=== PATIENT | male | born 1950 | race Caucasian/White ===

== ENCOUNTER 2017-06-16 12:59 | Outpatient (RCR) | payer MEDICARE, OTHER, SELFPAY ==
--- NOTE | 2017-10-01 13:06 | HP.OTEVAL_ITS ---
Patient's Visit Information GREGORIA RAMIREZ is a 67 year old M, referred to Occupational Therapy by Neisha Whitmore MD, with a diagnosis of unable to extend left 4th and 5th digit. Date of Evaluation: 06/16/17 Occupational Therapist: Benita Chatterjee, RAYR/L, CHT - Subjective Subjective: PT states he has had difficilty with left hand ROM pt states he is not able to extend his left RF or LF at MCP- pt states he noticed this inability to ext RF and LF since the end of Mar. Pt attempted to yeimy tape RF to LF and noted even more inability to lift LF. - Pain left hand 0 Pain Intensity Range: 0, 5 - Objective Objective/Observation: with wrist in N and assist in keeping MCP in N- pt asked to open and close his hand at PIPs- noted mass moves at the base of his MF with this motion- pt given chance to to work entire hand open/close and same mass moves with tendon- - ROM Shoulder: Right WFL left 90 Elbow: RIght WNL left WNL ROM Comments: left RF MCP -45 right 0/60. left LF MCP -55 left 0/ 55 - Strength Wrist: right 50/30 left 34/20 Apprentice/Lineman: right 25 left 40# Lateral Pinch: right 6# left 6# Tripod Pinch: Right 4# left 2# - DASH-Disabilities of Arm, Shoulder& Hand DASH Sum: 80 - Rehabilitation General Assessment: Tophaceous gout. Injury of extensor tendon of left hand. with wrist in N and assist in keeping MCP in N- pt asked to open and close his hand at PIPs- noted mass moves at the base of his MF with this motion- pt given chance to to work entire hand open/close and same mass moves with tendon-with palpation this thick tissue may indicate a gaglion cycst or tendon - would rec' d orthopedic to evaluate at this time. Rehabilitation Potential: Questionable - Anticipated Interventions Other Interventions: pt refered to ortho for further evaluation - Visit Plan General Plan: pt to see orthopedic of pts choice for further evaluation and rull out extensor tenson rupture or gaglion cycst TEXT: Thank you for the opportunity to evaluate your patient. For Medicare and Medicare HMO plans, please review the plan of care and approve it. It will need to be FAXED BACK to us at [phone] for Medicare purposes. Please let me know if there are questions or concerns regarding this plan of care. Physician Signature: Date:
--- NOTE | 2017-10-01 13:06 | HP.OT.NRP ---
HP - Discharge Summary - Patient Information GREGORIA RAMIREZ was seen in my office for initial evaluation on 06/16/17. The following Plan of Care was established for this patient: - Anticipated Interventions Other Interventions: pt refered to ortho for further evaluation This patient was last seen in our office . Pertinent comments regarding their Occupational therapy will appear below: At this point I will be discontinuing this patient from occupational therapy. I would be happy to see this patient again in the future if found appropriate by the physician. Thank you! Benita Chatterjee, OTR/L, CHT
== END 2017-06-16 19:00 | disposition home or self-care (01) ==
LOC: OT 12:59
PROVIDERS: Family Provider Family Medicine; PCP Family Medicine; Visit Provider Internal Medicine Rheumatology
DX: M1A.9XX1 Chronic gout, unspecified, with tophus (tophi) (principal); S66.902D Unspecified injury of unspecified muscle, fascia and tendon at wrist and hand level, left hand, subsequent encounter
CPT/HCPCS: 97166

== ENCOUNTER → 2017-08-13 09:49 | Outpatient (CLI) | payer MEDICARE, OTHER, SELFPAY ==
[2017-08-13 11:46] LABS: Albumin, Serum 3.3 g/dL (3.2-5.0); BUN 29 mg/dL (7-18); BUN/Creat Ratio 23.6 RATIO (10-20); Calcium,Total 9.3 mg/dL (8.5-10.1); Chloride 106 mmol/L (98-107); Creatinine, Serum 1.23 mg/dL (0.70-1.30); EST Glomerular Filtration Rate 62 mL/min (>60); Est Glom Filt Rate - Afr Amer 75 mL/min (>60); Glucose 77 mg/dL (74-106); Phosphorus 3.3 mg/dL (2.5-4.9); Potassium 4.4 mmol/L (3.5-5.1); Sodium Level 140 mmol/L (136-145)
== END ==
PROVIDERS: Family Provider Family Medicine; PCP Family Medicine; Visit Provider Internal Medicine Nephrology
DX: N18.3 Chronic kidney disease, stage 3 (moderate) (principal)
CPT/HCPCS: 36415; 80069

== ENCOUNTER 2017-11-04 08:30 | Outpatient (RCR) | payer MEDICARE, OTHER, SELFPAY ==
--- NOTE | 2017-09-15 18:36 | HP.OTEVAL ---
Patient's Visit Information GREGORIA RAMIREZ is a 67 year old M, referred to Occupational Therapy by SHARYN MIMS, with a diagnosis of DRUJ arthrosis, left, extensor tendon rupture of left hand-. Date of Evaluation: 09/15/17 Occupational Therapist: Benita Chatterjee, BRITTANY/Ritika, CHT - Subjective Subjective: pt arrives to OT [facility] with dx. of DRUJ Extensor tendon rupture of left hand. pt states he had issues with the inability to straighten his fingers- He arrives today following sx. Darrach Procedure- left distal ulna resection. Tendon transfer of EIP to the EDQ on the left through separate incisions. Tendon transfer of the EDC to the middle finger to the ring finger. Stabilization of the distal ulna stump with a ECU sling transfer on September 04, 2017. . pt arrives with soft wrist cock up brace- orders from call for custom orthosis placing wrist in slight extension with MCPs and PIP in resting flexion. pt denies pain or change in sensation - Objective Objective/Observation: pt demo with healing incisions x 3 on left hand. some brusing on ulnar side of left wrist. steri strips still present. - ROM ROM Comments: not formally tested at this time-. able to place wrist in slight extsion with MCP and PIP in resting flexion. - Strength Strength Comments: Not tested at this time - Sensation Sensation Comments: denies - Goals Goal:100% adherence to protocol: Yes Goal:Daily scar massage when approriate: Yes Goal:ROM equal to unaffected hand: Yes Goal:Make Ready Worker/Pinch strength at least 75% of unaffected hand: Yes Comment: As able as this was tend transfer due to rupture Goal:No pain with affected hand use: Yes Goal:Full use of affected hand in daily activities including: Yes Goal:Decrease scar hypersensitivity: Yes - Rehabilitation General Assessment: S/P Darrach Procedure- left distal ulna resection. Tendon transfer of EIP to the EDQ on the left through separate incisions. Tendon transfer of the EDC to the middle finger to the ring finger. Stabilization of the distal ulna stump with a ECU sling transfer on September 04, 2017. Dr. sherwood calls for custom orthosis placing left wrist in slight extension with MCP's and PIP in resting flexion. Rigoberto. of orthosis was performed and pt and family friend with pt was instructed in orthosis use and care- as well as ed. on edema, scar mtg and ext. tendon protocol. Pt would benefit from skilled OTR/L, CHT services 1-2x week for 8 weeks to facilitate extensor tendon protocol and rehab for pt to return to PLOF. Rehabilitation Potential: Good - Anticipated Interventions Anticipated Interventions: A/AAROM/PROM, Scar Care, Triggerpoint Release, Desensitization, Wound Care, Modalities, Orthoses, Joint Protection/Energy Conservation, Ergonomic Education, Fine Motor Coord/Rob, Education re assistive Equipment, Caregiver Training, Home Program - Visit Plan Frequency: 1-2x /Week Duration: 2 Months General Plan: Tendon glide ex, orthosis use- scar mtg- ext. tendon transfer protocol TEXT: Thank you for the opportunity to evaluate your patient. For Medicare and Medicare HMO plans, please review the plan of care and approve it. It will need to be FAXED BACK to us at [phone] for Medicare purposes. Please let me know if there are questions or concerns regarding this plan of care. Physician Signature: Date:
--- NOTE | 2017-11-04 08:56 | HP.OTDCSUM ---
HP - OT D/C Summary It has been my pleasure to treat GREGORIA RAMIREZ under orders from SHARYN MIMS, for the diagnosis of DRUJ arthrosis, left, extensor tendon rupture of left hand- for a total of 10 visit(s). Please see the following information for a summary of their discharge status. - Objective Objective/Function: pt demo full left digit ext. left wrist 50/55. pt demo left forearm supination WFL. denies tingling or numbness- full functional fist and FMS. left beamer hand strength at 45#. - Goals Patient Goals: Regain Mobility, Improve Fine Motor Skills, Use Hand/Wrist/Arm Normally Again, Increase ROM, Be More Independent in ADLS Goal:100% adherence to protocol: Yes Goal:Daily scar massage when approriate: Yes Goal:ROM equal to unaffected hand: Yes Goal:Deburring Machine Operator/Pinch strength at least 75% of unaffected hand: Yes Goal:No pain with affected hand use: Yes Goal:Full use of affected hand in daily activities including: Yes Goal:Decrease scar hypersensitivity: Yes - Plan Plan: D/C - D/C Information Discharge Comments: pt has been seen for 10 visits in OT. PT has met his goals in OT and reports he is ind. with all BADLs and IADLS. pt ed. on use of joint protection hortencia. and ad. eq. as needed. pt is pleased with the use of his hand! pt. D/C. If there are questions or concerns regarding this patient's occupational therapy, please fell free to call me at [phone]. Thank you for the referral of this patient. Sincerely, Benita Chatterjee, OTR/L, CHT
== END 2017-11-04 19:00 | disposition home or self-care (01) ==
LOC: OT 08:30
PROVIDERS: Family Provider Family Medicine; PCP Family Medicine
DX: M19.032 Primary osteoarthritis, left wrist (principal); S66.812D Strain of other specified muscles, fascia and tendons at wrist and hand level, left hand, subsequent encounter
CPT/HCPCS: 97110; 97140; 97166; 97168; 97760; 97763; G8987; G8988; G8989

== ENCOUNTER → 2018-02-05 12:30 | Outpatient (CLI) | payer MEDICARE, OTHER, SELFPAY ==
[2018-02-05 13:36] LABS: ALB/GLOB Ratio 0.8 RATIO (0.9-2.4); AST(SGOT) 22 U/L (15-37); Alanine Aminotransfer ALT/SGPT 26 U/L (16-61); Albumin, Serum 3.2 g/dL (3.2-5.0); Alkaline Phosphatase 219 U/L (45-117); Anion Gap 5 (5-15); BUN 29 mg/dL (7-18); BUN/Creat Ratio 20.4 RATIO (10-20); Calcium,Total 9.1 mg/dL (8.5-10.1); Chloride 104 mmol/L (98-107); Creatinine, Serum 1.42 mg/dL (0.70-1.30); EST Glomerular Filtration Rate 53 mL/min (>60); Est Glom Filt Rate - Afr Amer 64 mL/min (>60); Globulin 4.1 g/dL (2.2-4.2); Glucose 93 mg/dL (74-106); Potassium 4.6 mmol/L (3.5-5.1); Protein, Total 7.3 g/dL (6.4-8.2); Sodium Level 137 mmol/L (136-145)
== END ==
PROVIDERS: Family Provider Family Medicine; PCP Family Medicine; Referring Provider Family Medicine; Visit Provider Family Medicine
DX: N17.9 Acute kidney failure, unspecified (principal); N18.3 Chronic kidney disease, stage 3 (moderate)
CPT/HCPCS: 80053

== ENCOUNTER → 2018-02-11 08:54 | Outpatient (CLI) | payer MEDICARE, OTHER, SELFPAY ==
[2018-02-11 09:49] LABS: Hematocrit 33.3 % (40-54); Hemoglobin 10.6 g/dl (13.0-16.5); Mean Corp Hgb Conc 31.8 g/gl (32-36); Mean Corpuscular Hgb 31.2 pg (27.0-32.0); Mean Corpuscular Volume 97.9 fL (80-94); Platelet Count 161 K/mm3 (150-450); RBC Distribution Width CV 13.2 % (11.6-14.6); White Blood Count 6.1 K/mm3 (4.4-11.0)
[2018-02-11 09:50] LABS: Scan Indicated on CBC? Y/N NO
[2018-02-11 09:55] LABS: Protein, Urine (Random) 173.4 mg/dL (<11.9); Protein:Creat Ratio 2701 mg/g CRE (0-200)
[2018-02-11 10:22] LABS: Albumin, Serum 3.3 g/dL (3.2-5.0); BUN 32 mg/dL (7-18); BUN/Creat Ratio 26.2 RATIO (10-20); Calcium,Total 9.2 mg/dL (8.5-10.1); Chloride 108 mmol/L (98-107); Creatinine, Serum 1.22 mg/dL (0.70-1.30); EST Glomerular Filtration Rate 63 mL/min (>60); Est Glom Filt Rate - Afr Amer 76 mL/min (>60); Ferritin 336 ng/mL (26-388); Glucose 92 mg/dL (74-106); Iron 62 ug/dL (65-175); Iron Binding Capacity,Total 268 ug/dL (250-450); Phosphorus 3.9 mg/dL (2.5-4.9); Potassium 4.5 mmol/L (3.5-5.1); Sodium Level 140 mmol/L (136-145)
== END ==
PROVIDERS: Family Provider Family Medicine; PCP Family Medicine; Referring Provider Internal Medicine Nephrology; Visit Provider Internal Medicine Nephrology
DX: E11.22 Type 2 diabetes mellitus with diabetic chronic kidney disease (principal); N18.3 Chronic kidney disease, stage 3 (moderate); D64.9 Anemia, unspecified
CPT/HCPCS: 36415; 80069; 82570; 82728; 83540; 83550; 84156; 85027

== ENCOUNTER → 2018-08-17 | Outpatient (CLI) | payer MEDICARE, OTHER, SELFPAY ==
[2018-08-17 16:25] LABS: Hematocrit 34.2 % (40-54); Hemoglobin 10.8 g/dl (13.0-16.5); Mean Corp Hgb Conc 31.6 g/gl (32-36); Mean Corpuscular Hgb 30.3 pg (27.0-32.0); Mean Corpuscular Volume 96.1 fL (80-94); Mean Platelet Vol. 11.3 fl (6.2-12.0); Platelet Count 160 K/mm3 (150-450); RBC Distribution Width CV 14.2 % (11.6-14.6); Red Blood Count 3.56 M/mm3 (4.6-6.2); White Blood Count 7.4 K/mm3 (4.4-11.0)
[2018-08-17 16:26] LABS: Scan Indicated on CBC? Y/N NO
[2018-08-17 16:27] LABS: Protein, Urine (Random) 231.3 mg/dL (<11.9); Protein:Creat Ratio 11985 mg/g CRE (0-200)
[2018-08-17 16:56] LABS: Albumin, Serum 3.1 g/dL (3.2-5.0); BUN 33 mg/dL (7-18); BUN/Creat Ratio 24.6 RATIO (10-20); Chloride 109 mmol/L (98-107); Creatinine, Serum 1.34 mg/dL (0.70-1.30); EST Glomerular Filtration Rate 56 mL/min (>60); Est Glom Filt Rate - Afr Amer 68 mL/min (>60); Ferritin 418 ng/mL (26-388); Glucose 94 mg/dL (74-106); Iron 131 ug/dL (65-175); Iron Binding Capacity,Total 287 ug/dL (250-450); Phosphorus 2.6 mg/dL (2.5-4.9); Potassium 4.8 mmol/L (3.5-5.1); Sodium Level 141 mmol/L (136-145)
== END | disposition home or self-care (01) ==
LOC: LAB.FUTURE 14:32
PROVIDERS: Family Provider Family Medicine; PCP Family Medicine; Referring Provider Internal Medicine Nephrology; Visit Provider Internal Medicine Nephrology
DX: E11.22 Type 2 diabetes mellitus with diabetic chronic kidney disease (principal); N18.3 Chronic kidney disease, stage 3 (moderate); D63.1 Anemia in chronic kidney disease
CPT/HCPCS: 36415; 80069; 82570; 82728; 83540; 83550; 84156; 85027

== ENCOUNTER 2018-10-07 09:45 | Outpatient (RCR) | payer MEDICARE, OTHER, SELFPAY ==
[2018-08-17 15:00] VITALS: BMI 49.8
[2018-09-30 08:39] VITALS: BP 156/84; PULSE 73; RESP 18; TEMP 36.8; BMI 45.9
--- NOTE | 2018-09-30 09:36 | PCM.WC.HP ---
(1) Ulcer of left lower extremity with fat layer exposed Status: Chronic Current Visit: Yes Code(s): L97.922 - Non-pressure chronic ulcer of unspecified part of left lower leg with fat layer exposed (2) Lymphedema of both lower extremities Status: Chronic Current Visit: Yes Code(s): I89.0 - Lymphedema, not elsewhere classified (3) Type 2 diabetes mellitus Status: Chronic Current Visit: Yes Code(s): E11.9 - Type 2 diabetes mellitus without complications History of Present Illness Chief Complaint: Worsening lower extremity swelling and chronic left lower extremity ulcer. History of Wound: Mr. Russell is a 68yo who was referred to the wound center by his podiatrit due to chronic non healing left lower extremity ulcer. Initially started out with worsenijg bilaterla lower extremity swelling with subsequent blistering and ulceration. He states that he has applied hydrogen peroxide intermittently without any improvement. He has also been managed for cellulitis twice. He currently has a circaid however, he has been unable to apply on his on. He currently lives alone and unable to care for his ukcers adequately. History of DM which he says is well controlled. He feels well otherwise and denies chills, fever or significant lower extremity pain. ( Hx of neuropathy ) Past Medical History Past Medical History: Chronic Problems (Last Reviewed 08/17/18 @ 15:02 by Benita Hong) Ulcer of left lower extremity with fat layer exposed (Chronic) Lymphedema of both lower extremities (Chronic) Cardiac murmur (Chronic) Stage 2 chronic kidney disease (Chronic) Essential hypertension (Chronic) Type 2 diabetes mellitus (Chronic) Iron deficiency anemia (Chronic) Hyperlipidemia (Chronic) Surgical History: no surgical history Allergies/Adverse Reactions: Allergies No Known Allergies Allergy (Verified 08/17/18 15:00) Home Medications: Ambulatory Orders Medication Instructions Recorded Ascorbic Acid [Vitamin C] 500 mg PO DAILY@0800 03/08/17 Carvedilol [Coreg ([address])] 6.25 mg PO BID 03/08/17 Enalapril Maleate 10 mg PO QHS 03/08/17 Furosemide [Lasix] 20 mg PO DAILY 03/08/17 Hydrocodone/Acetaminophen 1 - 2 ea PO Q4H PRN PRN 03/08/17 [Hydrocodone-Acetamin 5-325 mg] Magnesium 500 mg PO QHS 03/08/17 Multivitamin [Daily Multiple 1 ea PO DAILY 03/08/17 Vitamin] Simvastatin 40 mg PO QHS 03/08/17 traMADol [Ultram] 50 mg PO Q4H PRN PRN 03/08/17 Febuxostat [Uloric] 40 mg PO DAILY 05/06/17 potassium chloride ER 10 mEq 20 meq PO QDAY tab 08/28/17 tablet,extended release(part/cryst) - Family History Maternal Family History: Family History (Last Reviewed 08/17/18 @ 15:02 by Benita Hong) Mother Cancer Father Hypertension Cancer Paternal Family History: Family History (Last Reviewed 08/17/18 @ 15:02 by Benita Hong) Mother Cancer Father Hypertension - - Head trauma. Smoking Status: Never smoker Review of Systems Constitutional: Denies: Anorexia, Chills, Fever, Night Sweats Eyes: Denies: Blurred vision, Pain HEENT: Denies: Difficulty Swallowing Cardiovascular: Denies: Chest Pain Gastrointestinal: Denies: Abdominal Pain, Hematemesis, Vomiting Genitourinary: Denies: Hematuria Skin: Denies: Jaundice - Physical Exam Vital Signs Temp Pulse Resp BP 98.2 F 73 18 156/84 H 09/30/18 08:39 09/30/18 08:39 09/30/18 08:39 09/30/18 08:39 General: Alert, Oriented x3, Cooperative, No apparent distress HEENT: Atraumatic, Normocephalic Oral: Moist Mucosa Neck: Supple Lungs: Normal air movement Cardiovascular: Regular rate, Regular Rhythm, Normal S1, Normal S2 Abdomen: Non Tender, Obese Extremities: No cyanosis, Edema Skin: Ulcer/ Wound Wound Measurements and Assessment WC - Nurse 1 - General Ulcer Measurement Start: 09/30/18 08:18 Freq: Status: Active Protocol: Activity Type Activity Date Activity User E-Sign Co-Sign Detail Recorded Client Recorded Date Recorded By Document 09/30/18 08:39 DV [id number] 09/30/18 08:57 DV 09/30/18 08:39 Wound Center Nurse 1 [Ulcer Assessment] #1 Lateral LLE -Combined with other wound No -Current Size (cm) - Length 11.0 -Current Size (cm) - Width 6.0 -Current Size (cm) - Depth 0.1 -Total Square Cm 66.00 -Date of Last Picture (Recall this 09/30/18 field) -Photo Taken Yes -Epithelialization None Present -Tunneling No -Undermining/Tunneling No -Circular Undermining No -Classification - Thickness Full Thickness without Exposed Support Structure -Exudate Amt Large -Exudate Type Serous -Wound Margin Indistinct, Non -Visible -Granulation Amt None Present (0 %) -Granulation Quality N/A -Slough/Fibrin Yes -Necrosis Amt Large (67-100%) -Necrotic Tissue Type Adherent Slough -Structure Exposed None/Limited to Skin Breakdown -Texture (Jaylyn-wound Skin Appearance) Assessed Localized Edema -Moisture (Jaylyn-wound Skin Appearance Assessed ) Weeping -Color (Jaylyn-wound Skin Appearance) Assessed Erythema -Temperature (Jaylyn-wound Skin No Abnormality Appearance) (Pt Warm) -Tenderness on Palpation (Jaylyn-wound No Skin Appearance) -Ulcer Cleansing Rinsed/ Irrigated with Saline -Foul Odor after Cleansing No -Anesthetic Used 4% Lidocaine Solution [Edema Assessment] -Lower Limb Edema Present Yes -Right Calf (cm) 47 -Right Ankle (cm) 33 -Left Calf (cm) 52 -Left Ankle (cm) 33.3 WC - Nurse 2 - General Ulcer CM Notes Start: 09/30/18 08:18 Freq: Status: Active Protocol: Activity Type Activity Date Activity User E-Sign Co-Sign Detail Recorded Client Recorded Date Recorded By Document 09/30/18 09:14 MW [id number] 09/30/18 09:24 MW 09/30/18 09:14 Wound Center Nurse 2 [Procedure/Treatment] #1 Lateral LLE -Time 09:14 -Correct Patient Yes -Correct Side, Site, Position Yes -Correct Procedure Yes -Procedure Performed Yes -Type of Procedure Debridement -Clinical Debridement Subcutaneous -Post Debridement Size (cm) - Length 11.5 -Post Debridement Size (cm) - Width 10.0 -Post Debridement Size (cm) - Depth 0.1 -Total Square Cm 115.00 -Wound/Ulcer Outcome Not Healed -Ulcer Cleansing Rinsed/ Irrigated with Saline -Foul Odor after Cleansing No -Bioengineered Tissue No -Bleeding Controlled with Pressure -Offloading No -Treatment Response Procedure Tolerated Well [See Physician Procedure note for Specifics] Pain Scale: 0-10 Numeric [Pain] -Is Patient Pain Free? Yes Musculoskeletal: No Muscle Wasting Neurological: Cranial nerves II-XII grossly intact Psych/Mental Status: Normal Affect Debridement Note Post-Debridement Measurements/Treatment WC - Nurse 2 - General Ulcer CM Notes Start: 09/30/18 08:18 Freq: Status: Active Protocol: Activity Type Activity Date Activity User E-Sign Co-Sign Detail Recorded Client Recorded Date Recorded By Document 09/30/18 09:14 MW [id number] 09/30/18 09:24 MW 09/30/18 09:14 Wound Center Nurse 2 #1 Lateral LLE -Time 09:14 -Correct Patient Yes -Correct Side, Site, Position Yes -Correct Procedure Yes -Procedure Performed Yes -Type of Procedure Debridement -Clinical Debridement Subcutaneous -Post Debridement Size (cm) - Length 11.5 -Post Debridement Size (cm) - Width 10.0 -Post Debridement Size (cm) - Depth 0.1 -Total Square Cm 115.00 -Wound/Ulcer Outcome Not Healed -Ulcer Cleansing Rinsed/ Irrigated with Saline -Foul Odor after Cleansing No -Bioengineered Tissue No -Bleeding Controlled with Pressure -Offloading No -Treatment Response Procedure Tolerated Well Pain Scale: 0-10 Numeric Is Patient Pain Free? Yes Wound debrided: Left lower extremity Wound Grade/Stage: Stage II Type of Debridement: Excisional debridement Anesthesia Used: 4% Lidocaine Solution Depth: Down to and including healthy tissue, in the subcutaneous layer Percentage of wound debrided: 100 Instrument Used: 7mm curette Tissue Removed: slough and devitalized tissue Severity: Fat Layer Exposed Amount of bleeding with debridement: Mild Bleeding Controlled with: Pressure Patient tolerated procedure well Assessment/Plan Active Problems (Last Reviewed 08/17/18 @ 15:02 by Benita Hong) Ulcer of left lower extremity with fat layer exposed (Chronic) Lymphedema of both lower extremities (Chronic) Type 2 diabetes mellitus (Chronic) Assessment: Same as above. Plan: Bilateral lower extremity lyphmedema however, left lower extremity with more erythema and differential warmth. Concern for cellulitis. Debridement done as documented above, prpcedure was well tolerated. Aquacel extra daily with ABD over top. Circaid for edema managmenetr. Patient samuel requires home health due to inability to care for / manage hos wounds. Will also start on Augmentin for possible cellulitis. Referreal to the lymphedema clinic made for managemenet of chronic/ worsening lymphedema. He was strongly advised to elevate his lower extremities when seated and in bed. All his qustions were answered and he was advised to call with any further questions or concerns. Follow up in 1 week.
[2018-10-07 10:00] VITALS: BP 121/77; PULSE 77; RESP 18; TEMP 36.6; BMI 45.9
--- NOTE | 2018-10-07 10:51 | PCM.WC.PN ---
(1) Ulcer of left lower extremity with fat layer exposed Status: Chronic Current Visit: Yes Code(s): L97.922 - Non-pressure chronic ulcer of unspecified part of left lower leg with fat layer exposed (2) Lymphedema of both lower extremities Status: Chronic Current Visit: Yes Code(s): I89.0 - Lymphedema, not elsewhere classified (3) Type 2 diabetes mellitus Status: Chronic Current Visit: Yes Code(s): E11.9 - Type 2 diabetes mellitus without complications Type of Wound Chief Complaint: Worsening lower extremity swelling and chronic left lower extremity ulcer. History of Wound: Mr. Russell is a 68yo who was referred to the wound center by his podiatrit due to chronic non healing left lower extremity ulcer. Initially started out with worsenijg bilaterla lower extremity swelling with subsequent blistering and ulceration. He states that he has applied hydrogen peroxide intermittently without any improvement. He has also been managed for cellulitis twice. He currently has a circaid however, he has been unable to apply on his on. He currently lives alone and unable to care for his ukcers adequately. History of DM which he says is well controlled. He feels well otherwise and denies chills, fever or significant lower extremity pain. ( Hx of neuropathy ) Progress of Wound: Area of ulceration appears to hve worsened however. cellulitis appears to have improved. Patient also reports less drainage. Has had HHN coem in every week however, that is now set to change due to insurance. - Physical Exam Vital Signs Temp Pulse Resp BP 97.8 F 77 18 121/77 H 10/07/18 10:00 10/07/18 10:00 10/07/18 10:00 10/07/18 10:00 General: Alert, Oriented x3, Cooperative, No apparent distress HEENT: Atraumatic, Normocephalic Oral: Moist Mucosa Neck: Supple Lungs: Normal air movement Abdomen: Obese Extremities: No cyanosis, Edema Skin: Ulcer/ Wound Wound Measurements and Assessment WC - Nurse 1 - General Ulcer Measurement Start: 09/30/18 08:18 Freq: Status: Active Protocol: Activity Type Activity Date Activity User E-Sign Co-Sign Detail Recorded Client Recorded Date Recorded By Document 10/07/18 10:00 MW [id number] 10/07/18 10:08 MW 10/07/18 10:00 Wound Center Nurse 1 [Ulcer Assessment] #1 Lateral LLE -Combined with other wound No -Current Size (cm) - Length 12.0 -Current Size (cm) - Width 10.0 -Current Size (cm) - Depth 0.1 -Total Square Cm 120.00 -Photo Taken No -Epithelialization None Present -Tunneling No -Undermining/Tunneling No -Circular Undermining No -Exudate Amt Large -Exudate Type Serous -Wound Margin Flat & Intact -Granulation Amt Small (1-33%) -Granulation Quality Pale -Slough/Fibrin Yes -Necrosis Amt Large (67-100%) -Necrotic Tissue Type Adherent Slough -Structure Exposed N/A -Texture (Jaylyn-wound Skin Appearance) Assessed Localized Edema -Moisture (Jaylyn-wound Skin Appearance Assessed ) Weeping -Color (Jaylyn-wound Skin Appearance) Assessed Hemosiderin Staining -Temperature (Jaylyn-wound Skin No Abnormality Appearance) (Pt Warm) -Tenderness on Palpation (Jaylyn-wound No Skin Appearance) -Ulcer Cleansing Rinsed/ Irrigated with Saline -Foul Odor after Cleansing No -Anesthetic Used 4% Lidocaine Solution [Edema Assessment] -Lower Limb Edema Present Yes -Right Calf (cm) 47.4 -Right Ankle (cm) 33.8 -Left Calf (cm) 52.7 -Left Ankle (cm) 35.0 WC - Nurse 2 - General Ulcer CM Notes Start: 09/30/18 08:18 Freq: Status: Active Protocol: Activity Type Activity Date Activity User E-Sign Co-Sign Detail Recorded Client Recorded Date Recorded By Document 10/07/18 10:31 MW [id number] 10/07/18 10:37 MW 10/07/18 10:31 Wound Center Nurse 2 [Procedure/Treatment] #1 Lateral LLE -Time 10:34 -Correct Patient Yes -Correct Side, Site, Position Yes -Correct Procedure Yes -Procedure Performed Yes -Type of Procedure Debridement -Clinical Debridement Subcutaneous -Post Debridement Size (cm) - Length 14.0 -Post Debridement Size (cm) - Width 11.0 -Post Debridement Size (cm) - Depth 0.1 -Total Square Cm 154.00 -Wound/Ulcer Outcome Not Healed -Ulcer Cleansing Rinsed/ Irrigated with Saline -Foul Odor after Cleansing No -Bioengineered Tissue No -Bleeding Controlled with Pressure -Offloading No -Treatment Response Procedure Tolerated Well [See Physician Procedure note for Specifics] Pain Scale: 0-10 Numeric [Pain] -Is Patient Pain Free? Yes Musculoskeletal: No Muscle Wasting Neurological: Cranial nerves II-XII grossly intact Psych/Mental Status: Normal Affect Debridement Note Post-Debridement Measurements/Treatment WC - Nurse 2 - General Ulcer CM Notes Start: 09/30/18 08:18 Freq: Status: Active Protocol: Activity Type Activity Date Activity User E-Sign Co-Sign Detail Recorded Client Recorded Date Recorded By Document 09/30/18 09:14 MW [id number] 09/30/18 09:24 MW Document 10/07/18 10:31 MW [id number] 10/07/18 10:37 MW 09/30/18 10/07/18 09:14 10:31 Wound Center Nurse 2 #1 Lateral LLE -Time 09:14 10:34 -Correct Patient Yes Yes -Correct Side, Site, Position Yes Yes -Correct Procedure Yes Yes -Procedure Performed Yes Yes -Type of Procedure Debridement Debridement -Clinical Debridement Subcutaneous Subcutaneous -Post Debridement Size (cm) - Length 11.5 14.0 -Post Debridement Size (cm) - Width 10.0 11.0 -Post Debridement Size (cm) - Depth 0.1 0.1 -Total Square Cm 115.00 154.00 -Wound/Ulcer Outcome Not Healed Not Healed -Ulcer Cleansing Rinsed/ Rinsed/ Irrigated with Irrigated with Saline Saline -Foul Odor after Cleansing No No -Bioengineered Tissue No No -Bleeding Controlled with Pressure Pressure -Offloading No No -Treatment Response Procedure Procedure Tolerated Well Tolerated Well Pain Scale: 0-10 Numeric Is Patient Pain Free? Yes Yes Wound debrided: Left lower extremity Wound Grade/Stage: Stage II Type of Debridement: Excisional debridement Anesthesia Used: 4% Lidocaine Solution Depth: Down to and including healthy tissue, in the subcutaneous layer Percentage of wound debrided: 100 Instrument Used: 5mm curette Tissue Removed: Slough and devitalized tissue Severity: Fat Layer Exposed Amount of bleeding with debridement: Mild Bleeding Controlled with: Pressure Patient tolerated procedure well Assessment/Plan Active Problems (Last Reviewed 08/17/18 @ 15:02 by Benita Hong) Ulcer of left lower extremity with fat layer exposed (Chronic) Lymphedema of both lower extremities (Chronic) Type 2 diabetes mellitus (Chronic) Assessment: Same as above. Plan: Bilateral lower extremity lyphmedema however, left lower extremity erythema and differential warmth have significnatly improved however, ulceration appears to have worsened. Debridement done as documented above, procedure was well tolerated. Aquacel extra daily with ABD over top. 3M for edema managmenet. Change by [facility] every other day due to drainage. Patient definitely continues to require home health due to inability to care for / manage his wounds. Continue Augmentin for 5 more days. Referral to the lymphedema clinic made for managemenet of chronic/ worsening lymphedema. He was strongly advised to elevate his lower extremities when seated and in bed. All his qustions were answered and he was advised to call with any further questions or concerns. Follow up in 1 week.
--- NOTE | 2018-10-07 10:57 | PN.PCM_ITS ---
(1) Ulcer of left lower extremity with fat layer exposed Status: Chronic Current Visit: Yes Code(s): L97.922 - Non-pressure chronic ulcer of unspecified part of left lower leg with fat layer exposed (2) Lymphedema of both lower extremities Status: Chronic Current Visit: Yes Code(s): I89.0 - Lymphedema, not elsewhere classified (3) Type 2 diabetes mellitus Status: Chronic Current Visit: Yes Code(s): E11.9 - Type 2 diabetes mellitus without complications Type of Wound Chief Complaint: Worsening lower extremity swelling and chronic left lower extremity ulcer. History of Wound: Mr. Russell is a 68yo who was referred to the wound center by his podiatrit due to chronic non healing left lower extremity ulcer. Initially started out with worsenijg bilaterla lower extremity swelling with subsequent blistering and ulceration. He states that he has applied hydrogen peroxide intermittently without any improvement. He has also been managed for cellulitis twice. He currently has a circaid however, he has been unable to apply on his on. He currently lives alone and unable to care for his ukcers adequately. History of DM which he says is well controlled. He feels well otherwise and denies chills, fever or significant lower extremity pain. ( Hx of neuropathy ) Progress of Wound: Area of ulceration appears to hve worsened however. cellulitis appears to have improved. Patient also reports less drainage. Has had HHN coem in every week however, that is now set to change due to insurance. - Physical Exam Vital Signs Temp Pulse Resp BP 97.8 F 77 18 121/77 H 10/07/18 10:00 10/07/18 10:00 10/07/18 10:00 10/07/18 10:00 General: Alert, Oriented x3, Cooperative, No apparent distress HEENT: Atraumatic, Normocephalic Oral: Moist Mucosa Neck: Supple Lungs: Normal air movement Abdomen: Obese Extremities: No cyanosis, Edema Skin: Ulcer/ Wound Wound Measurements and Assessment WC - Nurse 1 - General Ulcer Measurement Start: 09/30/18 08:18 Freq: Status: Active Protocol: Activity Type Activity Date Activity User E-Sign Co-Sign Detail Recorded Client Recorded Date Recorded By Document 10/07/18 10:00 MW [id number] 10/07/18 10:08 MW 10/07/18 10:00 Wound Center Nurse 1 [Ulcer Assessment] #1 Lateral LLE -Combined with other wound No -Current Size (cm) - Length 12.0 -Current Size (cm) - Width 10.0 -Current Size (cm) - Depth 0.1 -Total Square Cm 120.00 -Photo Taken No -Epithelialization None Present -Tunneling No -Undermining/Tunneling No -Circular Undermining No -Exudate Amt Large -Exudate Type Serous -Wound Margin Flat & Intact -Granulation Amt Small (1-33%) -Granulation Quality Pale -Slough/Fibrin Yes -Necrosis Amt Large (67-100%) -Necrotic Tissue Type Adherent Slough -Structure Exposed N/A -Texture (Jaylyn-wound Skin Appearance) Assessed Localized Edema -Moisture (Jaylyn-wound Skin Appearance Assessed ) Weeping -Color (Jaylyn-wound Skin Appearance) Assessed Hemosiderin Staining -Temperature (Jaylyn-wound Skin No Abnormality Appearance) (Pt Warm) -Tenderness on Palpation (Jaylyn-wound No Skin Appearance) -Ulcer Cleansing Rinsed/ Irrigated with Saline -Foul Odor after Cleansing No -Anesthetic Used 4% Lidocaine Solution [Edema Assessment] -Lower Limb Edema Present Yes -Right Calf (cm) 47.4 -Right Ankle (cm) 33.8 -Left Calf (cm) 52.7 -Left Ankle (cm) 35.0 WC - Nurse 2 - General Ulcer CM Notes Start: 09/30/18 08:18 Freq: Status: Active Protocol: Activity Type Activity Date Activity User E-Sign Co-Sign Detail Recorded Client Recorded Date Recorded By Document 10/07/18 10:31 MW [id number] 10/07/18 10:37 MW 10/07/18 10:31 Wound Center Nurse 2 [Procedure/Treatment] #1 Lateral LLE -Time 10:34 -Correct Patient Yes -Correct Side, Site, Position Yes -Correct Procedure Yes -Procedure Performed Yes -Type of Procedure Debridement -Clinical Debridement Subcutaneous -Post Debridement Size (cm) - Length 14.0 -Post Debridement Size (cm) - Width 11.0 -Post Debridement Size (cm) - Depth 0.1 -Total Square Cm 154.00 -Wound/Ulcer Outcome Not Healed -Ulcer Cleansing Rinsed/ Irrigated with Saline -Foul Odor after Cleansing No -Bioengineered Tissue No -Bleeding Controlled with Pressure -Offloading No -Treatment Response Procedure Tolerated Well [See Physician Procedure note for Specifics] Pain Scale: 0-10 Numeric [Pain] -Is Patient Pain Free? Yes Musculoskeletal: No Muscle Wasting Neurological: Cranial nerves II-XII grossly intact Psych/Mental Status: Normal Affect Debridement Note Post-Debridement Measurements/Treatment WC - Nurse 2 - General Ulcer CM Notes Start: 09/30/18 08:18 Freq: Status: Active Protocol: Activity Type Activity Date Activity User E-Sign Co-Sign Detail Recorded Client Recorded Date Recorded By Document 09/30/18 09:14 MW [id number] 09/30/18 09:24 MW Document 10/07/18 10:31 MW [id number] 10/07/18 10:37 MW 09/30/18 10/07/18 09:14 10:31 Wound Center Nurse 2 #1 Lateral LLE -Time 09:14 10:34 -Correct Patient Yes Yes -Correct Side, Site, Position Yes Yes -Correct Procedure Yes Yes -Procedure Performed Yes Yes -Type of Procedure Debridement Debridement -Clinical Debridement Subcutaneous Subcutaneous -Post Debridement Size (cm) - Length 11.5 14.0 -Post Debridement Size (cm) - Width 10.0 11.0 -Post Debridement Size (cm) - Depth 0.1 0.1 -Total Square Cm 115.00 154.00 -Wound/Ulcer Outcome Not Healed Not Healed -Ulcer Cleansing Rinsed/ Rinsed/ Irrigated with Irrigated with Saline Saline -Foul Odor after Cleansing No No -Bioengineered Tissue No No -Bleeding Controlled with Pressure Pressure -Offloading No No -Treatment Response Procedure Procedure Tolerated Well Tolerated Well Pain Scale: 0-10 Numeric Is Patient Pain Free? Yes Yes Wound debrided: Left lower extremity Wound Grade/Stage: Stage II Type of Debridement: Excisional debridement Anesthesia Used: 4% Lidocaine Solution Depth: Down to and including healthy tissue, in the subcutaneous layer Percentage of wound debrided: 100 Instrument Used: 5mm curette Tissue Removed: Slough and devitalized tissue Severity: Fat Layer Exposed Amount of bleeding with debridement: Mild Bleeding Controlled with: Pressure Patient tolerated procedure well Assessment/Plan Active Problems (Last Reviewed 08/17/18 @ 15:02 by Benita Hong) Ulcer of left lower extremity with fat layer exposed (Chronic) Lymphedema of both lower extremities (Chronic) Type 2 diabetes mellitus (Chronic) Assessment: Same as above. Plan: Bilateral lower extremity lyphmedema however, left lower extremity erythema and differential warmth have significnatly improved however, ulceration appears to have worsened. Debridement done as documented above, procedure was well tolerated. Aquacel extra daily with ABD over top. 3M for edema managmenet. Change by [facility] every other day due to drainage. Patient definitely continues to require home health due to inability to care for / manage his wounds. Continue Augmentin for 5 more days. Referral to the lymphedema clinic made for managemenet of chronic/ worsening lymphedema. He was strongly advised to elevate his lower extremities when seated and in bed. All his qustions were answered and he was advised to call with any further questions or concerns. Follow up in 1 week.
== END 2018-10-09 23:59 ==
LOC: WC 09:45
PROVIDERS: Family Provider Family Medicine; PCP Family Medicine; Visit Provider Internal Medicine
DX: E11.622 Type 2 diabetes mellitus with other skin ulcer (principal); I89.0 Lymphedema, not elsewhere classified; L97.822 Non-pressure chronic ulcer of other part of left lower leg with fat layer exposed; M79.89 Other specified soft tissue disorders; E11.40 Type 2 diabetes mellitus with diabetic neuropathy, unspecified; E11.22 Type 2 diabetes mellitus with diabetic chronic kidney disease; I12.9 Hypertensive chronic kidney disease with stage 1 through stage 4 chronic kidney disease, or unspecified chronic kidney disease; N18.2 Chronic kidney disease, stage 2 (mild); E78.5 Hyperlipidemia, unspecified; Z79.899 Other long term (current) drug therapy
CPT/HCPCS: 11042; 11045; 29580; 99203; G0463

== ENCOUNTER 2018-11-05 08:30 | Outpatient (RCR) | payer MEDICARE, OTHER, SELFPAY ==
[2018-10-10 01:19] VITALS: BP 121/77; PULSE 77; RESP 18; TEMP 36.6
[2018-10-15 08:21] VITALS: BP 150/95; PULSE 73; RESP 18; TEMP 36; BMI 45.9
--- NOTE | 2018-10-15 10:09 | PN.PCM_ITS ---
(1) Lymphedema of both lower extremities Status: Chronic Current Visit: No Code(s): I89.0 - Lymphedema, not elsewhere classified (2) Ulcer of left lower extremity with fat layer exposed Status: Chronic Current Visit: No Code(s): L97.922 - Non-pressure chronic ulcer of unspecified part of left lower leg with fat layer exposed (3) Ulcer of left foot Status: Acute Current Visit: Yes Qualifiers: Non-pressure ulcer stage: limited to breakdown of skin Qualified Code(s): L97.521 - Non-pressure chronic ulcer of other part of left foot limited to breakdown of skin Code(s): L97.529 - Non-pressure chronic ulcer of other part of left foot with unspecified severity Type of Wound Chief Complaint: Worsening lower extremity swelling and chronic left lower extremity ulcer. History of Wound: Mr. Russell is a 68yo who was referred to the wound center by his podiatrit due to chronic non healing left lower extremity ulcer. Initially started out with worsenijg bilaterla lower extremity swelling with subsequent blistering and ulceration. He states that he has applied hydrogen peroxide intermittently without any improvement. He has also been managed for cellulitis twice. He currently has a circaid however, he has been unable to apply on his on. He currently lives alone and unable to care for his ukcers adequately. History of DM which he says is well controlled. He feels well otherwise and denies chills, fever or significant lower extremity pain. ( Hx of neuropathy ) Progress of Wound: Bilateral lower extremity swelling have improved so has the ulcer however, presents with new superficial left foot ulcer likely from a skin tear. - Physical Exam Vital Signs Temp Pulse Resp BP 96.8 F L 73 18 150/95 H 10/15/18 08:21 10/15/18 08:21 10/15/18 08:21 10/15/18 08:21 General: Alert, Oriented x3, Cooperative, No apparent distress HEENT: Atraumatic, Normocephalic Oral: Moist Mucosa Neck: Supple Lungs: Normal air movement Abdomen: Non Tender, Obese Extremities: No cyanosis, Edema Skin: Ulcer/ Wound Wound Measurements and Assessment WC - Nurse 1 - General Ulcer Measurement Start: 10/15/18 08:21 Freq: Status: Active Protocol: Activity Type Activity Date Activity User E-Sign Co-Sign Detail Recorded Client Recorded Date Recorded By Document 10/15/18 08:21 RB [id number] 10/15/18 08:26 RB 10/15/18 08:21 Wound Center Nurse 1 [Ulcer Assessment] #1 Lateral LLE -Combined with other wound No -Current Size (cm) - Length 12.5 -Current Size (cm) - Width 7 -Current Size (cm) - Depth 0.1 -Total Square Cm 87.5 -Tunneling No -Undermining/Tunneling No -Circular Undermining No -Exudate Amt Medium -Exudate Type Serosanguineous -Wound Margin Distinct, Outline Attached -Granulation Amt Large (67-100%) -Granulation Quality [place] -Slough/Fibrin Yes -Necrosis Amt Small (1-33%) -Necrotic Tissue Type Adherent Slough -Structure Exposed N/A -Texture (Jaylyn-wound Skin Appearance) Assessed Friable -Moisture (Jaylyn-wound Skin Appearance Assessed ) -Color (Jaylyn-wound Skin Appearance) Assessed -Temperature (Jaylyn-wound Skin No Abnormality Appearance) (Pt Warm) -Tenderness on Palpation (Jaylyn-wound No Skin Appearance) -Ulcer Cleansing Wound Cleanser -Foul Odor after Cleansing No -Anesthetic Used 4% Lidocaine Solution [Edema Assessment] -Lower Limb Edema Present Yes -Right Calf (cm) 40.5 -Right Ankle (cm) 30.5 -Left Calf (cm) 47.4 -Left Ankle (cm) 31 WC - Nurse 2 - General Ulcer CM Notes Start: 10/15/18 08:21 Freq: Status: Active Protocol: Activity Type Activity Date Activity User E-Sign Co-Sign Detail Recorded Client Recorded Date Recorded By Document 10/15/18 08:33 MW [id number] 10/15/18 08:38 MW 10/15/18 08:33 Wound Center Nurse 2 [Procedure/Treatment] #2 LEFT LATERAL FOOT -Time 08:35 -Correct Patient Yes -Correct Side, Site, Position Yes -Correct Procedure Yes -Procedure Performed Yes -Type of Procedure Debridement -Clinical Debridement Subcutaneous -Post Debridement Size (cm) - Length 1.2 -Post Debridement Size (cm) - Width 2.5 -Post Debridement Size (cm) - Depth 0.1 -Total Square Cm 3.00 -Wound/Ulcer Outcome Not Healed -Ulcer Cleansing Rinsed/ Irrigated with Saline -Foul Odor after Cleansing No -Bioengineered Tissue No -Bleeding Controlled with Pressure -Offloading No -Treatment Response Procedure Tolerated Well #1 Lateral LLE -Time 08:33 -Correct Patient Yes -Correct Side, Site, Position Yes -Correct Procedure Yes -Procedure Performed Yes -Type of Procedure Debridement -Clinical Debridement Subcutaneous -Post Debridement Size (cm) - Length 8.0 -Post Debridement Size (cm) - Width 6.0 -Post Debridement Size (cm) - Depth 0.1 -Total Square Cm 48.00 -Wound/Ulcer Outcome Not Healed -Ulcer Cleansing Rinsed/ Irrigated with Saline -Foul Odor after Cleansing No -Bioengineered Tissue No -Bleeding Controlled with Pressure -Offloading No -Treatment Response Procedure Tolerated Well [See Physician Procedure note for Specifics] Pain Scale: 0-10 Numeric [Pain] -Is Patient Pain Free? Yes Musculoskeletal: No Muscle Wasting Neurological: Cranial nerves II-XII grossly intact Psych/Mental Status: Normal Affect Debridement Note Post-Debridement Measurements/Treatment WC - Nurse 2 - General Ulcer CM Notes Start: 10/15/18 08:21 Freq: Status: Active Protocol: Activity Type Activity Date Activity User E-Sign Co-Sign Detail Recorded Client Recorded Date Recorded By Document 10/15/18 08:33 MW [id number] 10/15/18 08:38 MW 10/15/18 08:33 Wound Center Nurse 2 #2 LEFT LATERAL FOOT -Time 08:35 -Correct Patient Yes -Correct Side, Site, Position Yes -Correct Procedure Yes -Procedure Performed Yes -Type of Procedure Debridement -Clinical Debridement Subcutaneous -Post Debridement Size (cm) - Length 1.2 -Post Debridement Size (cm) - Width 2.5 -Post Debridement Size (cm) - Depth 0.1 -Total Square Cm 3.00 -Wound/Ulcer Outcome Not Healed -Ulcer Cleansing Rinsed/ Irrigated with Saline -Foul Odor after Cleansing No -Bioengineered Tissue No -Bleeding Controlled with Pressure -Offloading No -Treatment Response Procedure Tolerated Well #1 Lateral LLE -Time 08:33 -Correct Patient Yes -Correct Side, Site, Position Yes -Correct Procedure Yes -Procedure Performed Yes -Type of Procedure Debridement -Clinical Debridement Subcutaneous -Post Debridement Size (cm) - Length 8.0 -Post Debridement Size (cm) - Width 6.0 -Post Debridement Size (cm) - Depth 0.1 -Total Square Cm 48.00 -Wound/Ulcer Outcome Not Healed -Ulcer Cleansing Rinsed/ Irrigated with Saline -Foul Odor after Cleansing No -Bioengineered Tissue No -Bleeding Controlled with Pressure -Offloading No -Treatment Response Procedure Tolerated Well Pain Scale: 0-10 Numeric Is Patient Pain Free? Yes Wound debrided: Left lower extremity Wound Grade/Stage: Stage II Type of Debridement: Excisional debridement Anesthesia Used: 4% Lidocaine Solution Depth: Down to and including healthy tissue, in the subcutaneous layer Percentage of wound debrided: 100 Instrument Used: 5mm curette Tissue Removed: Slough and devitalized tissue Severity: Fat Layer Exposed Amount of bleeding with debridement: Mild Bleeding Controlled with: Pressure Patient tolerated procedure well - Additional Wound Wound debrided: Left foot ( lateral hind foot ) Wound Grade/Stage: Stage I Type of Debridement: Excisional debridement Anesthesia Used: 4% Lidocaine Solution Depth: Down to and including healthy tissue Percentage of wound debrided: 100 Instrument Used: 5mm curette Tissue Removed: Slough and devitalized tissue Severity: Limited To Skin Breakdown Amount of bleeding with debridement: Mild Bleeding Controlled with: Pressure Patient tolerated procedure: Patient tolerated procedure well Assessment/Plan Active Problems (Last Reviewed 08/17/18 @ 15:02 by Benita Hong) Ulcer of left foot (Acute) Assessment: Same as above. Plan: Improvement of old ulcer is noted. New left superfiscial left foot ulcer. Debridement done as documented above, procedure was well tolerated. Aquacel extra with ABD over top. 3M for edema managmenet. Change by home health every 4th day. Patient definitely continues to require home health due to inability to care for / manage his wounds. Not able to follow up at the lymphedema clinic due to insurance issues. He was strongly advised to elevate his lower extremities when seated and in bed. All his qustions were answered and he was advised to call with any further questions or concerns. Follow up in 3 weeks per patient prerfrence. Home steve to continue care and contact wound center with any concerns.
[2018-11-05 08:37] VITALS: RESP 16; TEMP 36.6; BMI 45.9
--- NOTE | 2018-11-05 09:33 | PCM.WC.PN ---
(1) Lymphedema of both lower extremities Status: Chronic Current Visit: Yes Code(s): I89.0 - Lymphedema, not elsewhere classified (2) Ulcer of left lower extremity with fat layer exposed Status: Chronic Current Visit: Yes Code(s): L97.922 - Non-pressure chronic ulcer of unspecified part of left lower leg with fat layer exposed (3) Ulcer of left foot Status: Acute Current Visit: Yes Qualifiers: Non-pressure ulcer stage: limited to breakdown of skin Qualified Code(s): L97.521 - Non-pressure chronic ulcer of other part of left foot limited to breakdown of skin Code(s): L97.529 - Non-pressure chronic ulcer of other part of left foot with unspecified severity Type of Wound Date of Service: 11/05/18 Chief Complaint: Worsening lower extremity swelling and chronic left lower extremity ulcer. History of Wound: Mr. Russell is a 68yo who was referred to the wound center by his podiatrit due to chronic non healing left lower extremity ulcer. Initially started out with worsenijg bilaterla lower extremity swelling with subsequent blistering and ulceration. He states that he has applied hydrogen peroxide intermittently without any improvement. He has also been managed for cellulitis twice. He currently has a circaid however, he has been unable to apply on his on. He currently lives alone and unable to care for his ukcers adequately. History of DM which he says is well controlled. He feels well otherwise and denies chills, fever or significant lower extremity pain. ( Hx of neuropathy ) Progress of Wound: Ulcers have healed. Still has significant bilateral lower extremity swelling. - Physical Exam Vital Signs Temp Pulse Resp BP 97.8 F 73 16 150/95 H 11/05/18 08:37 10/15/18 08:21 11/05/18 08:37 10/15/18 08:21 General: Alert, Oriented x3, Cooperative, No apparent distress HEENT: Atraumatic, Normocephalic Oral: Moist Mucosa Neck: Supple Lungs: Normal air movement Abdomen: Non Tender, Obese Extremities: No cyanosis, Edema Skin: Ulcer/ Wound Wound Measurements and Assessment WC - Nurse 1 - General Ulcer Measurement Start: 10/15/18 08:21 Freq: Status: Active Protocol: Activity Type Activity Date Activity User E-Sign Co-Sign Detail Recorded Client Recorded Date Recorded By Document 11/05/18 08:37 [facility] [id number] 11/05/18 08:48 [facility] 11/05/18 08:37 Wound Center Nurse 1 [Ulcer Assessment] #2 LEFT LATERAL FOOT -Combined with other wound No -Current Size (cm) - Length 0.1 -Current Size (cm) - Width 0.1 -Current Size (cm) - Depth 0.1 -Total Square Cm 0.01 -Date of Last Picture (Recall this 11/05/18 field) -Photo Taken Yes -Epithelialization Large 67-100% -Tunneling No -Undermining/Tunneling No -Circular Undermining No #1 Lateral LLE -Combined with other wound No -Current Size (cm) - Length 0.1 -Current Size (cm) - Width 0.1 -Current Size (cm) - Depth 0.1 -Total Square Cm 0.01 -Date of Last Picture (Recall this 11/05/18 field) -Photo Taken Yes -Epithelialization Large 67-100% -Tunneling No -Undermining/Tunneling No -Circular Undermining No [Edema Assessment] -Lower Limb Edema Present Yes -Right Calf (cm) 46.0 -Right Ankle (cm) 35.1 -Left Calf (cm) 53.2 -Left Ankle (cm) 34.6 WC - Nurse 2 - General Ulcer CM Notes Start: 10/15/18 08:21 Freq: Status: Active Protocol: Activity Type Activity Date Activity User E-Sign Co-Sign Detail Recorded Client Recorded Date Recorded By Document 11/05/18 09:22 [id number] 11/05/18 09:26 11/05/18 09:22 Wound Center Nurse 2 [Procedure/Treatment] #2 LEFT LATERAL FOOT -Time 09:22 -Correct Patient Yes -Correct Side, Site, Position Yes -Correct Procedure Yes -Procedure Performed No -Post Debridement Size (cm) - Length 0 -Post Debridement Size (cm) - Width 0 -Post Debridement Size (cm) - Depth 0 -Total Square Cm 0 -Wound/Ulcer Outcome Healed- Epithelialized #1 Lateral LLE -Time 09:22 -Correct Patient Yes -Correct Side, Site, Position Yes -Correct Procedure Yes -Procedure Performed No -Post Debridement Size (cm) - Length 0 -Post Debridement Size (cm) - Width 0 -Post Debridement Size (cm) - Depth 0 -Total Square Cm 0 -Wound/Ulcer Outcome Healed- Epithelialized [See Physician Procedure note for Specifics] Pain Scale: 0-10 Numeric [Pain] -Is Patient Pain Free? Yes Musculoskeletal: No Muscle Wasting Neurological: Cranial nerves II-XII grossly intact Psych/Mental Status: Normal Affect Debridement Note Post-Debridement Measurements/Treatment WC - Nurse 2 - General Ulcer CM Notes Start: 10/15/18 08:21 Freq: Status: Active Protocol: Activity Type Activity Date Activity User E-Sign Co-Sign Detail Recorded Client Recorded Date Recorded By Document 10/15/18 08:33 MW [id number] 10/15/18 08:38 MW Document 11/05/18 09:22 MW [id number] 11/05/18 09:26 MW 10/15/18 11/05/18 08:33 09:22 Wound Center Nurse 2 #2 LEFT LATERAL FOOT -Time 08:35 09:22 -Correct Patient Yes Yes -Correct Side, Site, Position Yes Yes -Correct Procedure Yes Yes -Procedure Performed Yes No -Type of Procedure Debridement -Clinical Debridement Subcutaneous -Post Debridement Size (cm) - Length 1.2 0 -Post Debridement Size (cm) - Width 2.5 0 -Post Debridement Size (cm) - Depth 0.1 0 -Total Square Cm 3.00 0 -Wound/Ulcer Outcome Not Healed Healed- Epithelialized -Ulcer Cleansing Rinsed/ Irrigated with Saline -Foul Odor after Cleansing No -Bioengineered Tissue No -Bleeding Controlled with Pressure -Offloading No -Treatment Response Procedure Tolerated Well #1 Lateral LLE -Time 08:33 09:22 -Correct Patient Yes Yes -Correct Side, Site, Position Yes Yes -Correct Procedure Yes Yes -Procedure Performed Yes No -Type of Procedure Debridement -Clinical Debridement Subcutaneous -Post Debridement Size (cm) - Length 8.0 0 -Post Debridement Size (cm) - Width 6.0 0 -Post Debridement Size (cm) - Depth 0.1 0 -Total Square Cm 48.00 0 -Wound/Ulcer Outcome Not Healed Healed- Epithelialized -Ulcer Cleansing Rinsed/ Irrigated with Saline -Foul Odor after Cleansing No -Bioengineered Tissue No -Bleeding Controlled with Pressure -Offloading No -Treatment Response Procedure Tolerated Well Pain Scale: 0-10 Numeric Is Patient Pain Free? Yes Yes No debridement was completed today Assessment/Plan Active Problems (Last Reviewed 08/17/18 @ 15:02 by Benita Hong) Ulcer of left lower extremity with fat layer exposed (Chronic) Lymphedema of both lower extremities (Chronic) Ulcer of left foot (Acute) Assessment: Same as above. Plan: Ulcers healed. Still has significant bilateral lower extremity swelling. Minimal skin tear sustained this morning. Apply Adaptic over top with gauze for 2 weeks. Patient definitely continues to require home health due to inability to care for himself. He is unable to apply his CircAid's without help. This is needed to manage edema and prevent future ulcerations. Not able to follow up at the lymphedema clinic due to insurance issues. He was strongly advised to elevate his lower extremities when seated and in bed. All his qustions were answered and he was advised to call with any further questions or concerns. Discharged from the wound clinic. This note was generated with [email or web address] dictation software. It may contain incorrect words, spelling, and punctuation that were not noted in checking the note before signing.
== END 2018-11-08 23:59 ==
LOC: WC 08:30
PROVIDERS: Family Provider Family Medicine; PCP Family Medicine; Visit Provider Internal Medicine
DX: E11.622 Type 2 diabetes mellitus with other skin ulcer (principal); I89.0 Lymphedema, not elsewhere classified; E11.621 Type 2 diabetes mellitus with foot ulcer; L97.822 Non-pressure chronic ulcer of other part of left lower leg with fat layer exposed; L97.521 Non-pressure chronic ulcer of other part of left foot limited to breakdown of skin; E11.40 Type 2 diabetes mellitus with diabetic neuropathy, unspecified
CPT/HCPCS: 11042; 11045; 29581; 99213; G0463

== ENCOUNTER 2018-12-03 10:30 | Outpatient (RCR) | payer MEDICARE, OTHER, SELFPAY ==
[2018-11-09 00:53] VITALS: BP 150/95; PULSE 73; RESP 16; TEMP 36.6
[2018-11-19 10:46] VITALS: BP 155/85; PULSE 71; RESP 22; TEMP 36.4; BMI 45.9
--- NOTE | 2018-11-19 13:23 | PCM.WC.HP ---
(1) Ulcer of right lower extremity with fat layer exposed Status: Acute Current Visit: Yes Code(s): L97.912 - Non-pressure chronic ulcer of unspecified part of right lower leg with fat layer exposed (2) Cellulitis of right lower extremity Status: Acute Current Visit: Yes Code(s): L03.115 - Cellulitis of right lower limb (3) Lymphedema of both lower extremities Status: Chronic Current Visit: Yes Code(s): I89.0 - Lymphedema, not elsewhere classified History of Present Illness Date of Service: 11/19/18 Chief Complaint: Right lower extremity ulcer. History of Wound: Mr. Russell is a 68yo who was last seen here about a month ago for left lower extremity ulcer and now presents with right lower extremity ulcer. He states that he noted this 3 days ago. Denies any nonprescription factors however has noted worsening right lower extremity swelling as well. Also reports pain. He denies chills, fever otherwise feeling of unwell. Admits to clear, copious drainage. Past Medical History Past Medical History: Chronic Problems (Last Reviewed 08/17/18 @ 15:02 by Benita Hong) Ulcer of left lower extremity with fat layer exposed (Chronic) Lymphedema of both lower extremities (Chronic) Cardiac murmur (Chronic) Stage 2 chronic kidney disease (Chronic) Essential hypertension (Chronic) Type 2 diabetes mellitus (Chronic) Iron deficiency anemia (Chronic) Hyperlipidemia (Chronic) Surgical History: no surgical history Allergies/Adverse Reactions: Allergies No Known Allergies Allergy (Verified 08/17/18 15:00) Home Medications: Ambulatory Orders Medication Instructions Recorded Ascorbic Acid [Vitamin C] 500 mg PO DAILY@0800 03/08/17 Carvedilol [Coreg ([address])] 6.25 mg PO BID 03/08/17 Enalapril Maleate 10 mg PO QHS 03/08/17 Furosemide [Lasix] 40 mg PO DAILY 03/08/17 Hydrocodone/Acetaminophen 1 - 2 ea PO Q4H PRN PRN 03/08/17 [Hydrocodone-Acetamin 5-325 mg] Magnesium 500 mg PO QHS 03/08/17 Multivitamin [Daily Multiple 1 ea PO DAILY 03/08/17 Vitamin] Simvastatin 40 mg PO QHS 03/08/17 traMADol [Ultram] 50 mg PO Q4H PRN PRN 03/08/17 Febuxostat [Uloric] 40 mg PO DAILY 05/06/17 potassium chloride ER 10 mEq 20 meq PO QDAY tab 08/28/17 tablet,extended release(part/cryst) - Family History Maternal Family History: Family History (Last Reviewed 08/17/18 @ 15:02 by Benita Hong) Mother Cancer Father Hypertension Cancer Paternal Family History: Family History (Last Reviewed 08/17/18 @ 15:02 by Benita Hong) Mother Cancer Father Hypertension - - Head trauma. Smoking Status: Never smoker Review of Systems Constitutional: Denies: Anorexia, Chills, Fever Eyes: Denies: Blurred vision, Pain HEENT: Denies: Difficulty Swallowing Cardiovascular: Denies: Chest Pain, Chest Pressure Respiratory: Denies: Hemoptysis Gastrointestinal: Denies: Abdominal Pain, Hematemesis, Vomiting Skin: Denies: Jaundice - Physical Exam Vital Signs Temp Pulse Resp BP 97.5 F L 71 22 H 155/85 H 11/19/18 10:46 11/19/18 10:46 11/19/18 10:46 11/19/18 10:46 General: Alert, Oriented x3, Cooperative, No apparent distress HEENT: Atraumatic, Normocephalic Oral: Moist Mucosa Neck: Supple Lungs: Normal air movement Abdomen: Soft, Non Tender, Obese Extremities: No cyanosis, Edema Skin: Ulcer/ Wound Wound Measurements and Assessment WC - Nurse 1 - General Ulcer Measurement Start: 11/19/18 10:45 Freq: Status: Active Protocol: Activity Type Activity Date Activity User E-Sign Co-Sign Detail Recorded Client Recorded Date Recorded By Document 11/19/18 10:46 DL [id number] 11/19/18 10:53 DL 11/19/18 10:46 Wound Center Nurse 1 [Ulcer Assessment] #3- RLE CIRCUMFERENTIAL -Combined with other wound No -Current Size (cm) - Length 12.5 -Current Size (cm) - Width 33 -Current Size (cm) - Depth 0.1 -Total Square Cm 412.5 -Date of Last Picture (Recall this 11/19/18 field) -Photo Taken Yes -Epithelialization None Present -Tunneling No -Undermining/Tunneling No -Circular Undermining No -Exudate Amt Medium -Exudate Type Serous -Wound Margin Flat & Intact -Granulation Amt Large (67-100%) -Granulation Quality Red -Slough/Fibrin Yes -Necrosis Amt Small (1-33%) -Necrotic Tissue Type Adherent Slough -Texture (Jaylyn-wound Skin Appearance) Assessed, Excoriation, Scarring -Moisture (Jaylyn-wound Skin Appearance Assessed, ) Maceration, Weeping,Dry/ Scaly -Color (Jaylyn-wound Skin Appearance) Assessed, Erythema -Temperature (Jaylyn-wound Skin No Abnormality Appearance) (Pt Warm) -Tenderness on Palpation (Jaylyn-wound Yes Skin Appearance) -Ulcer Cleansing Wound Cleanser -Foul Odor after Cleansing No -Anesthetic Used 4% Lidocaine Solution [Edema Assessment] -Lower Limb Edema Present Yes -Right Calf (cm) 46 -Right Ankle (cm) 30.5 -Left Calf (cm) 46.3 -Left Ankle (cm) 33 WC - Nurse 2 - General Ulcer CM Notes Start: 11/19/18 10:45 Freq: Status: Active Protocol: Activity Type Activity Date Activity User E-Sign Co-Sign Detail Recorded Client Recorded Date Recorded By Document 11/19/18 11:36 MW [id number] 11/19/18 11:45 MW 11/19/18 11:36 Wound Center Nurse 2 [Procedure/Treatment] #3- RLE CIRCUMFERENTIAL -Time 11:40 -Correct Patient Yes -Correct Side, Site, Position Yes -Correct Procedure Yes -Procedure Performed Yes -Type of Procedure Debridement -Clinical Debridement Subcutaneous -Post Debridement Size (cm) - Length 17.5 -Post Debridement Size (cm) - Width 27.0 -Post Debridement Size (cm) - Depth 0.1 -Total Square Cm 472.50 -Wound/Ulcer Outcome Not Healed -Ulcer Cleansing Rinsed/ Irrigated with Saline -Foul Odor after Cleansing No -Bioengineered Tissue No -Bleeding Controlled with Pressure -Offloading No -Treatment Response Procedure Tolerated Well [See Physician Procedure note for Specifics] Musculoskeletal: No Muscle Wasting Neurological: Cranial nerves II-XII grossly intact Psych/Mental Status: Normal Affect Debridement Note Post-Debridement Measurements/Treatment WC - Nurse 2 - General Ulcer CM Notes Start: 11/19/18 10:45 Freq: Status: Active Protocol: Activity Type Activity Date Activity User E-Sign Co-Sign Detail Recorded Client Recorded Date Recorded By Document 11/19/18 11:36 MW [id number] 11/19/18 11:45 MW 11/19/18 11:36 Wound Center Nurse 2 #3- RLE CIRCUMFERENTIAL -Time 11:40 -Correct Patient Yes -Correct Side, Site, Position Yes -Correct Procedure Yes -Procedure Performed Yes -Type of Procedure Debridement -Clinical Debridement Subcutaneous -Post Debridement Size (cm) - Length 17.5 -Post Debridement Size (cm) - Width 27.0 -Post Debridement Size (cm) - Depth 0.1 -Total Square Cm 472.50 -Wound/Ulcer Outcome Not Healed -Ulcer Cleansing Rinsed/ Irrigated with Saline -Foul Odor after Cleansing No -Bioengineered Tissue No -Bleeding Controlled with Pressure -Offloading No -Treatment Response Procedure Tolerated Well Wound debrided: Right leg Wound Grade/Stage: Stage 2 Type of Debridement: Excisional debridement Anesthesia Used: 4% Lidocaine Solution Depth: Down to and including healthy tissue, in the subcutaneous layer Percentage of wound debrided: 100 Instrument Used: 5mm curette Tissue Removed: Slough and devitalized tissue Severity: Fat Layer Exposed Amount of bleeding with debridement: Mild Bleeding Controlled with: Pressure Patient tolerated procedure well Assessment/Plan Active Problems (Last Reviewed 08/17/18 @ 15:02 by Benita Hong) Lymphedema of both lower extremities (Chronic) Ulcer of right lower extremity with fat layer exposed (Acute) Cellulitis of right lower extremity (Acute) Assessment: Same as above. Plan: Mr. Russell now presents with a new right lower extremity ulcer, pain, redness with concern for cellulitis. Debridement done as documented above, procedure was well-tolerated. Aquacel extra with ABD over top. 3M wraps for edema management. Prescription for Keflex, 500 mg 3 times daily for cellulitis. Arrangements have been made for home health. Patient unable to care for himself at home and he lives alone. Strongly advised to elevate his lower extremity when seated in bed. Weight loss and exercise also recommended. All his questions were answered and he was advised to call with any further questions or concerns. Follow-up in 1 week. This note was generated with [employer] software. It may contain incorrect words, spelling, and punctuation that were not noted in checking the note before signing.
[2018-11-26 09:37] VITALS: BP 139/81; PULSE 78; RESP 18; TEMP 36.7; BMI 45.9
--- NOTE | 2018-11-26 10:04 | PCM.WC.PN ---
(1) Ulcer of right lower extremity with fat layer exposed Status: Acute Current Visit: Yes Code(s): L97.912 - Non-pressure chronic ulcer of unspecified part of right lower leg with fat layer exposed (2) Cellulitis of right lower extremity Status: Acute Current Visit: Yes Code(s): L03.115 - Cellulitis of right lower limb (3) Lymphedema of both lower extremities Status: Chronic Current Visit: Yes Code(s): I89.0 - Lymphedema, not elsewhere classified Type of Wound Date of Service: 11/26/18 Chief Complaint: Right lower extremity ulcer. History of Wound: Mr. Russell is a 68yo who was last seen here about a month ago for left lower extremity ulcer and now presents with right lower extremity ulcer. He states that he noted this 3 days ago. Denies any nonprescription factors however has noted worsening right lower extremity swelling as well. Also reports pain. He denies chills, fever otherwise feeling of unwell. Admits to clear, copious drainage. Progress of Wound: Improving, no new concerns at this time. - Physical Exam Vital Signs Temp Pulse Resp BP 98.0 F 78 18 139/81 H 11/26/18 09:37 11/26/18 09:37 11/26/18 09:37 11/26/18 09:37 General: Alert, Oriented x3, Cooperative, No apparent distress HEENT: Atraumatic, Normocephalic Oral: Moist Mucosa Neck: Supple Abdomen: Obese Skin: Ulcer/ Wound Wound Measurements and Assessment WC - Nurse 1 - General Ulcer Measurement Start: 11/19/18 10:45 Freq: Status: Active Protocol: Activity Type Activity Date Activity User E-Sign Co-Sign Detail Recorded Client Recorded Date Recorded By Document 11/26/18 09:37 [id number] 11/26/18 09:41 11/26/18 09:37 Wound Center Nurse 1 [Ulcer Assessment] #3- RLE CIRCUMFERENTIAL -Combined with other wound No -Current Size (cm) - Length 17.5 -Current Size (cm) - Width 27 -Current Size (cm) - Depth 0.1 -Total Square Cm 472.5 -Photo Taken No -Epithelialization None Present -Tunneling No -Undermining/Tunneling No -Circular Undermining No -Exudate Amt Large -Exudate Type Serosanguineous -Wound Margin Indistinct, Non -Visible -Granulation Amt Large (67-100%) -Granulation Quality Red -Slough/Fibrin Yes -Necrosis Amt None Present (0 %) -Necrotic Tissue Type Adherent Slough -Structure Exposed None/Limited to Skin Breakdown -Texture (Jaylyn-wound Skin Appearance) Assessed, Friable, Localized Edema -Moisture (Jaylyn-wound Skin Appearance Weeping ) -Color (Jaylyn-wound Skin Appearance) Erythema -Temperature (Jaylyn-wound Skin No Abnormality Appearance) (Pt Warm) -Tenderness on Palpation (Jaylyn-wound Yes Skin Appearance) -Ulcer Cleansing Rinsed/ Irrigated with Saline -Foul Odor after Cleansing No -Anesthetic Used 4% Lidocaine Solution [Edema Assessment] -Lower Limb Edema Present Yes -Right Calf (cm) 49 -Right Ankle (cm) 31 -Left Calf (cm) 52 -Left Ankle (cm) 32.5 WC - Nurse 2 - General Ulcer CM Notes Start: 11/19/18 10:45 Freq: Status: Active Protocol: Activity Type Activity Date Activity User E-Sign Co-Sign Detail Recorded Client Recorded Date Recorded By Document 11/26/18 09:55 MW [id number] 11/26/18 09:57 MW 11/26/18 09:55 Wound Center Nurse 2 [Procedure/Treatment] #3- RLE CIRCUMFERENTIAL -Time 09:55 -Correct Patient Yes -Correct Side, Site, Position Yes -Correct Procedure Yes -Procedure Performed Yes -Type of Procedure Debridement -Clinical Debridement Subcutaneous -Post Debridement Size (cm) - Length 15.0 -Post Debridement Size (cm) - Width 25.0 -Post Debridement Size (cm) - Depth 0.1 -Total Square Cm 375.00 -Wound/Ulcer Outcome Not Healed -Ulcer Cleansing Rinsed/ Irrigated with Saline -Foul Odor after Cleansing No -Bioengineered Tissue No -Bleeding Controlled with Pressure -Offloading No -Treatment Response Procedure Tolerated Well [See Physician Procedure note for Specifics] Pain Scale: 0-10 Numeric [Pain] -Is Patient Pain Free? Yes Musculoskeletal: No Muscle Wasting Neurological: Cranial nerves II-XII grossly intact Debridement Note Post-Debridement Measurements/Treatment WC - Nurse 2 - General Ulcer CM Notes Start: 11/19/18 10:45 Freq: Status: Active Protocol: Activity Type Activity Date Activity User E-Sign Co-Sign Detail Recorded Client Recorded Date Recorded By Document 11/19/18 11:36 MW [id number] 11/19/18 11:45 MW Document 11/26/18 09:55 MW [id number] 11/26/18 09:57 MW 11/19/18 11/26/18 11:36 09:55 Wound Center Nurse 2 #3- RLE CIRCUMFERENTIAL -Time 11:40 09:55 -Correct Patient Yes Yes -Correct Side, Site, Position Yes Yes -Correct Procedure Yes Yes -Procedure Performed Yes Yes -Type of Procedure Debridement Debridement -Clinical Debridement Subcutaneous Subcutaneous -Post Debridement Size (cm) - Length 17.5 15.0 -Post Debridement Size (cm) - Width 27.0 25.0 -Post Debridement Size (cm) - Depth 0.1 0.1 -Total Square Cm 472.50 375.00 -Wound/Ulcer Outcome Not Healed Not Healed -Ulcer Cleansing Rinsed/ Rinsed/ Irrigated with Irrigated with Saline Saline -Foul Odor after Cleansing No No -Bioengineered Tissue No No -Bleeding Controlled with Pressure Pressure -Offloading No No -Treatment Response Procedure Procedure Tolerated Well Tolerated Well Pain Scale: 0-10 Numeric Is Patient Pain Free? Yes Wound debrided: Right lower extremity Wound Grade/Stage: Stage II Type of Debridement: Excisional debridement Anesthesia Used: 4% Lidocaine Solution Depth: Down to and including healthy tissue, in the subcutaneous layer Percentage of wound debrided: 100 Instrument Used: 7mm curette Tissue Removed: Slough and devitalized tissue Severity: Fat Layer Exposed Amount of bleeding with debridement: Mild Bleeding Controlled with: Pressure Patient tolerated procedure well Assessment/Plan Active Problems (Last Reviewed 08/17/18 @ 15:02 by Benita Hong) Lymphedema of both lower extremities (Chronic) Ulcer of right lower extremity with fat layer exposed (Acute) Cellulitis of right lower extremity (Acute) Assessment: Same as above. Plan: No new concerns today. Some improvement noted in the past week. Has completed his course of antibiotics. Debridement done as documented above, procedure was well-tolerated. Continue Aquacel extra with ABD over top. 3M wraps for edema management. Now has home health. Patient unable to care for himself at home and he lives alone. Strongly advised to elevate his lower extremity when seated in bed. Weight loss and exercise also recommended. All his questions were answered and he was advised to call with any further questions or concerns. Follow-up in 1 week. This note was generated with [facility] software. It may contain incorrect words, spelling, and punctuation that were not noted in checking the note before signing.
[2018-12-03 10:47] VITALS: BP 143/76; PULSE 79; RESP 22; TEMP 36.6; BMI 45.9
--- NOTE | 2018-12-03 11:27 | PN.PCM_ITS ---
(1) Ulcer of right lower extremity with fat layer exposed Status: Acute Current Visit: Yes Code(s): L97.912 - Non-pressure chronic ulcer of unspecified part of right lower leg with fat layer exposed (2) Cellulitis of right lower extremity Status: Acute Current Visit: Yes Code(s): L03.115 - Cellulitis of right lower limb (3) Lymphedema of both lower extremities Status: Chronic Current Visit: Yes Code(s): I89.0 - Lymphedema, not elsewhere classified Type of Wound Date of Service: 12/03/18 Chief Complaint: Right lower extremity ulcer. History of Wound: Mr. Russell is a 68yo who was last seen here about a month ago for left lower extremity ulcer and now presents with right lower extremity ulcer. He states that he noted this 3 days ago. Denies any nonprescription factors however has noted worsening right lower extremity swelling as well. Also reports pain. He denies chills, fever otherwise feeling of unwell. Admits to clear, copious drainage. Progress of Wound: New foot ulcers ( Dorsum and lateral ). Also has significnat drainage. Feels well otherwise. - Physical Exam Vital Signs Temp Pulse Resp BP 97.8 F 79 22 H 143/76 H 12/03/18 10:47 12/03/18 10:47 12/03/18 10:47 12/03/18 10:47 General: Alert, Oriented x3, Cooperative, No apparent distress HEENT: Atraumatic, Normocephalic Oral: Moist Mucosa Neck: Supple Lungs: Normal air movement Abdomen: Obese Extremities: No cyanosis, Edema Skin: Ulcer/ Wound Wound Measurements and Assessment WC - Nurse 1 - General Ulcer Measurement Start: 11/19/18 10:45 Freq: Status: Active Protocol: Activity Type Activity Date Activity User E-Sign Co-Sign Detail Recorded Client Recorded Date Recorded By Document 12/03/18 10:47 DL [id number] 12/03/18 10:54 DL 12/03/18 10:47 Wound Center Nurse 1 [Ulcer Assessment] #3- RLE CIRCUMFERENTIAL -Current Size (cm) - Length 19 -Current Size (cm) - Width 37.2 -Current Size (cm) - Depth 0.1 -Total Square Cm 706.8 -Photo Taken No -Exudate Amt Large -Exudate Type Serosanguineous -Wound Margin Indistinct, Non -Visible -Granulation Amt Large (67-100%) -Granulation Quality [place] -Necrosis Amt Small (1-33%) -Necrotic Tissue Type Adherent Slough -Texture (Jaylyn-wound Skin Appearance) Excoriation, Localized Edema -Moisture (Jaylyn-wound Skin Appearance Weeping ) -Color (Jaylyn-wound Skin Appearance) Erythema, Hemosiderin Staining -Temperature (Jaylyn-wound Skin No Abnormality Appearance) (Pt Warm) -Tenderness on Palpation (Jaylyn-wound Yes Skin Appearance) -Ulcer Cleansing Wound Cleanser -Anesthetic Used 5% Lidocaine Gel [Edema Assessment] -Right Calf (cm) 45.5 -Right Ankle (cm) 31 -Left Calf (cm) 46.2 -Left Ankle (cm) 33.5 WC - Nurse 2 - General Ulcer CM Notes Start: 11/19/18 10:45 Freq: Status: Active Protocol: Activity Type Activity Date Activity User E-Sign Co-Sign Detail Recorded Client Recorded Date Recorded By Document 12/03/18 11:10 MW [id number] 12/03/18 11:15 MW 12/03/18 11:10 Wound Center Nurse 2 [Procedure/Treatment] #5 RIGHT DORSAL FOOT -Time 11:13 -Correct Patient Yes -Correct Side, Site, Position Yes -Correct Procedure Yes -Procedure Performed Yes -Type of Procedure Debridement -Clinical Debridement Subcutaneous -Post Debridement Size (cm) - Length 2.0 -Post Debridement Size (cm) - Width 2.0 -Post Debridement Size (cm) - Depth 0.1 -Total Square Cm 4.00 -Wound/Ulcer Outcome Not Healed -Ulcer Cleansing Rinsed/ Irrigated with Saline -Foul Odor after Cleansing No -Bioengineered Tissue No -Bleeding Controlled with Pressure -Offloading No -Treatment Response Procedure Tolerated Well #4 right lateral foot -Time 11:11 -Correct Patient Yes -Correct Side, Site, Position Yes -Correct Procedure Yes -Procedure Performed Yes -Type of Procedure Debridement -Clinical Debridement Subcutaneous -Post Debridement Size (cm) - Length 3.4 -Post Debridement Size (cm) - Width 6.1 -Post Debridement Size (cm) - Depth 0.1 -Total Square Cm 20.74 -Wound/Ulcer Outcome Not Healed -Ulcer Cleansing Rinsed/ Irrigated with Saline -Foul Odor after Cleansing No -Bioengineered Tissue No -Bleeding Controlled with Pressure -Offloading No -Treatment Response Procedure Tolerated Well #3- RLE CIRCUMFERENTIAL -Time 11:10 -Correct Patient Yes -Correct Side, Site, Position Yes -Correct Procedure Yes -Procedure Performed Yes -Type of Procedure Debridement -Clinical Debridement Subcutaneous -Post Debridement Size (cm) - Length 17.0 -Post Debridement Size (cm) - Width 17.0 -Post Debridement Size (cm) - Depth 0.1 -Total Square Cm 289.00 -Wound/Ulcer Outcome Not Healed -Ulcer Cleansing Rinsed/ Irrigated with Saline -Foul Odor after Cleansing No -Bioengineered Tissue No -Bleeding Controlled with Pressure -Offloading No -Treatment Response Procedure Tolerated Well [See Physician Procedure note for Specifics] Pain Scale: 0-10 Numeric [Pain] -Is Patient Pain Free? Yes Musculoskeletal: No Muscle Wasting Neurological: Cranial nerves II-XII grossly intact Psych/Mental Status: Normal Affect Debridement Note Post-Debridement Measurements/Treatment WC - Nurse 2 - General Ulcer CM Notes Start: 11/19/18 10:45 Freq: Status: Active Protocol: Activity Type Activity Date Activity User E-Sign Co-Sign Detail Recorded Client Recorded Date Recorded By Document 11/19/18 11:36 MW [id number] 11/19/18 11:45 MW Document 11/26/18 09:55 MW [id number] 11/26/18 09:57 MW Document 12/03/18 11:10 MW [id number] 12/03/18 11:15 MW 11/19/18 11/26/18 12/03/18 11:36 09:55 11:10 Wound Center Nurse 2 #5 RIGHT DORSAL FOOT -Time 11:13 -Correct Patient Yes -Correct Side, Site, Position Yes -Correct Procedure Yes -Procedure Performed Yes -Type of Procedure Debridement -Clinical Debridement Subcutaneous -Post Debridement Size (cm) - Length 2.0 -Post Debridement Size (cm) - Width 2.0 -Post Debridement Size (cm) - Depth 0.1 -Total Square Cm 4.00 -Wound/Ulcer Outcome Not Healed -Ulcer Cleansing Rinsed/ Irrigated with Saline -Foul Odor after Cleansing No -Bioengineered Tissue No -Bleeding Controlled with Pressure -Offloading No -Treatment Response Procedure Tolerated Well #4 right lateral foot -Time 11:11 -Correct Patient Yes -Correct Side, Site, Position Yes -Correct Procedure Yes -Procedure Performed Yes -Type of Procedure Debridement -Clinical Debridement Subcutaneous -Post Debridement Size (cm) - Length 3.4 -Post Debridement Size (cm) - Width 6.1 -Post Debridement Size (cm) - Depth 0.1 -Total Square Cm 20.74 -Wound/Ulcer Outcome Not Healed -Ulcer Cleansing Rinsed/ Irrigated with Saline -Foul Odor after Cleansing No -Bioengineered Tissue No -Bleeding Controlled with Pressure -Offloading No -Treatment Response Procedure Tolerated Well #3- RLE CIRCUMFERENTIAL -Time 11:40 09:55 11:10 -Correct Patient Yes Yes Yes -Correct Side, Site, Position Yes Yes Yes -Correct Procedure Yes Yes Yes -Procedure Performed Yes Yes Yes -Type of Procedure Debridement Debridement Debridement -Clinical Debridement Subcutaneous Subcutaneous Subcutaneous -Post Debridement Size (cm) - Length 17.5 15.0 17.0 -Post Debridement Size (cm) - Width 27.0 25.0 17.0 -Post Debridement Size (cm) - Depth 0.1 0.1 0.1 -Total Square Cm 472.50 375.00 289.00 -Wound/Ulcer Outcome Not Healed Not Healed Not Healed -Ulcer Cleansing Rinsed/ Rinsed/ Rinsed/ Irrigated with Irrigated with Irrigated with Saline Saline Saline -Foul Odor after Cleansing No No No -Bioengineered Tissue No No No -Bleeding Controlled with Pressure Pressure Pressure -Offloading No No No -Treatment Response Procedure Procedure Procedure Tolerated Well Tolerated Well Tolerated Well Pain Scale: 0-10 Numeric Is Patient Pain Free? Yes Yes Wound debrided: Right lower extremity Wound Grade/Stage: Stage II Type of Debridement: Excisional debridement Anesthesia Used: 4% Lidocaine Solution Depth: Down to and including healthy tissue, in the subcutaneous layer Percentage of wound debrided: 100 Instrument Used: 7mm curette Tissue Removed: Slough and devitalized tissue Severity: Fat Layer Exposed Amount of bleeding with debridement: Mild Bleeding Controlled with: Pressure Patient tolerated procedure well - Additional Wound Wound debrided: Right lateral foot Wound Grade/Stage: Stage II Type of Debridement: Excisional debridement Anesthesia Used: 4% Lidocaine Solution Depth: Down to and including healthy tissue, in the subcutaneous layer Percentage of wound debrided: 100 Instrument Used: 7mm curette Tissue Removed: Slough and devitalized tissue Severity: Fat Layer Exposed Amount of bleeding with debridement: Mild Bleeding Controlled with: Pressure Patient tolerated procedure: Patient tolerated procedure well - Additional Wound Wound debrided: Right Dorsal Foot Wound Grade/Stage: Stage II Type of Debridement: Excisional debridement Anesthesia Used: 4% Lidocaine Solution Depth: Down to and including healthy tissue, in the subcutaneous layer Percentage of wound debrided: 100 Instrument Used: 7mm curette Tissue Removed: Slough and devitalized tissue Severity: Fat Layer Exposed Amount of bleeding with debridement: Mild Bleeding Controlled with: Pressure Patient tolerated procedure: Patient tolerated procedure well Assessment/Plan Active Problems (Last Reviewed 08/17/18 @ 15:02 by Benita Hong) Lymphedema of both lower extremities (Chronic) Ulcer of right lower extremity with fat layer exposed (Acute) Cellulitis of right lower extremity (Acute) Assessment: Same as above. Plan: New right foot ulcers. Also significnat drainage today. He reports compliance with elevation of his extremities. Debridement done as documented above, procedure was well-tolerated. Continue Aquacel extra with ABD over top to all ulcers. 3M wraps for edema management. Now has home health. Patient unable to care for himself at home and he lives alone. Strongly advised to elevate his lower extremity when seated in bed. Weight loss and exercise also recommended. Will make arrangements for a lymphedema pump. All his questions were answered and he was advised to call with any further questions or concerns. Follow-up in 1 week. This note was generated with [employer] dictation software. It may contain incorrect words, spelling, and punctuation that were not noted in checking the note before signing.
== END 2018-12-09 23:59 ==
LOC: WC 10:30
PROVIDERS: Family Provider Family Medicine; PCP Family Medicine; Visit Provider Internal Medicine
DX: E11.622 Type 2 diabetes mellitus with other skin ulcer (principal); E78.5 Hyperlipidemia, unspecified; I89.0 Lymphedema, not elsewhere classified; L97.812 Non-pressure chronic ulcer of other part of right lower leg with fat layer exposed; L03.115 Cellulitis of right lower limb; E11.621 Type 2 diabetes mellitus with foot ulcer; L97.512 Non-pressure chronic ulcer of other part of right foot with fat layer exposed
CPT/HCPCS: 11042; 11045; 29581

== ENCOUNTER → 2018-12-21 09:21 | Outpatient (CLI) | payer MEDICARE, OTHER, SELFPAY ==
[2018-12-17 11:40] VITALS: BMI 45.9
[2018-12-21 09:52] LABS: Hematocrit 30.7 % (40-54); Hemoglobin 9.6 g/dL (13.0-16.5); Mean Corp Hgb Conc 31.3 g/dL (32-36); Mean Corpuscular Hgb 31.5 pg (27.0-32.0); Mean Corpuscular Volume 100.7 fL (80-94); Mean Platelet Vol. 10.5 fl (6.2-12.0); Platelet Count 168 K/mm3 (150-450); RBC Distribution Width CV 13.7 % (11.6-14.6); RBC Distribution Width SD 49.8 fl (35.1-43.9); Red Blood Count 3.05 M/mm3 (4.6-6.2); White Blood Count 5.6 K/mm3 (4.4-11.0)
[2018-12-21 10:25] LABS: Albumin, Serum 2.7 g/dL (3.2-5.0); BUN 40 mg/dL (7-18); Calcium,Total 8.6 mg/dL (8.5-10.1); Chloride 109 mmol/L (98-107); EST Glomerular Filtration Rate 46 mL/min (>60); Est Glom Filt Rate - Afr Amer 55 mL/min (>60); Glucose 86 mg/dL (74-106); Phosphorus 3.2 mg/dL (2.5-4.9); Potassium 4.6 mmol/L (3.5-5.1); Sodium Level 138 mmol/L (136-145)
[2018-12-21 10:27] LABS: 24 Hour Urine Protein 3977.6 mg/24HR (<150 MG/24HR); 24HR. UA Prot. Total Volume 2650 mL; Urine Protein (24 Hour) 150.1 mg/dL (<11.9)
[2018-12-21 10:28] LABS: Creat.Clear Total Volume 2650 mL; Creatinine Clearance 61 ml/min (100-200); Creatinine Serum Creat 1.6 mg/dL (0.8-1.3); EST Glomerular Filtration Rate 46 mL/min (>60); Est Glom Filt Rate - Afr Amer 55 mL/min (>60)
[2018-12-21 10:38] LABS: Vitamin D,25 Hydroxy 28.1 ng/mL (29.95-100.01)
[2018-12-21 10:39] LABS: PTHIN 111.3 pg/mL (18.4-80.1)
== END ==
PROVIDERS: Family Provider Family Medicine; PCP Family Medicine; Referring Provider Internal Medicine Nephrology; Visit Provider Internal Medicine Nephrology
DX: E11.22 Type 2 diabetes mellitus with diabetic chronic kidney disease (principal); N18.3 Chronic kidney disease, stage 3 (moderate); D63.1 Anemia in chronic kidney disease
CPT/HCPCS: 36415; 80069; 82306; 82575; 83970; 84156; 85027

== ENCOUNTER 2019-01-06 08:30 | Outpatient (RCR) | payer MEDICARE, OTHER, SELFPAY ==
[2018-12-10 00:51] VITALS: BP 143/76; PULSE 79; RESP 22; TEMP 36.6
[2018-12-10 09:30] VITALS: BP 139/84; PULSE 78; RESP 22; TEMP 36.6; BMI 45.9
--- NOTE | 2018-12-10 10:32 | PN.PCM_ITS ---
(1) Ulcer of right lower extremity with fat layer exposed Status: Chronic Current Visit: Yes Code(s): L97.912 - Non-pressure chronic ulcer of unspecified part of right lower leg with fat layer exposed (2) Lymphedema of both lower extremities Status: Chronic Current Visit: Yes Code(s): I89.0 - Lymphedema, not elsewhere classified (3) Type 2 diabetes mellitus Status: Chronic Current Visit: Yes Code(s): E11.9 - Type 2 diabetes mellitus without complications (4) Ulcer of left lower extremity with fat layer exposed Status: Chronic Current Visit: Yes Code(s): L97.922 - Non-pressure chronic ulcer of unspecified part of left lower leg with fat layer exposed Type of Wound Date of Service: 12/10/18 Chief Complaint: Right lower extremity ulcer. History of Wound: Mr. Russell is a 68yo who was last seen here about a month ago for left lower extremity ulcer and now presents with right lower extremity ulcer. He states that he noted this 3 days ago. Denies any nonprescription factors however has noted worsening right lower extremity swelling as well. Also reports pain. He denies chills, fever otherwise feeling of unwell. Admits to clear, copious drainage. Progress of Wound: Worsening left leg swelling and new areas of ulceration. - Physical Exam Vital Signs Temp Pulse Resp BP 97.8 F 78 22 H 139/84 H 12/10/18 09:30 12/10/18 09:30 12/10/18 09:30 12/10/18 09:30 General: Alert, Oriented x3, Cooperative, No apparent distress HEENT: Atraumatic, Normocephalic Oral: Moist Mucosa Neck: Supple Lungs: Normal air movement Extremities: No cyanosis, Edema Skin: Ulcer/ Wound Wound Measurements and Assessment WC - Nurse 1 - General Ulcer Measurement Start: 12/10/18 09:30 Freq: Status: Active Protocol: Activity Type Activity Date Activity User E-Sign Co-Sign Detail Recorded Client Recorded Date Recorded By Document 12/10/18 09:30 DL [id number] 12/10/18 09:44 DL 12/10/18 09:30 Wound Center Nurse 1 [Ulcer Assessment] #5 RIGHT DORSAL FOOT -Current Size (cm) - Length 0 -Current Size (cm) - Width 0 -Current Size (cm) - Depth 0 -Total Square Cm 0 -Photo Taken Yes -Exudate Amt None Present -Wound Margin Flat & Intact -Granulation Amt Large (67-100%) -Granulation Quality [place] -Necrosis Amt None Present (0 %) -Structure Exposed N/A -Texture (Jaylyn-wound Skin Appearance) No Abnormality -Moisture (Jaylyn-wound Skin Appearance Dry/Scaly ) -Color (Jaylyn-wound Skin Appearance) Hemosiderin Staining -Temperature (Jaylyn-wound Skin No Abnormality Appearance) (Pt Warm) -Tenderness on Palpation (Jaylyn-wound No Skin Appearance) -Ulcer Cleansing Wound Cleanser -Foul Odor after Cleansing No #4 right lateral foot -Current Size (cm) - Length 0.1 -Current Size (cm) - Width 0.1 -Current Size (cm) - Depth 0.1 -Total Square Cm 0.01 -Photo Taken No -Exudate Amt None Present -Granulation Amt Large (67-100%) -Granulation Quality [place] -Necrosis Amt Small (1-33%) -Necrotic Tissue Type Adherent Slough -Structure Exposed N/A -Texture (Jaylyn-wound Skin Appearance) Scarring -Moisture (Jaylyn-wound Skin Appearance Dry/Scaly ) -Color (Jaylyn-wound Skin Appearance) Hemosiderin Staining -Temperature (Jaylyn-wound Skin No Abnormality Appearance) (Pt Warm) -Tenderness on Palpation (Jaylyn-wound No Skin Appearance) -Ulcer Cleansing Wound Cleanser -Foul Odor after Cleansing No -Anesthetic Used 4% Lidocaine Solution #3- RLE CIRCUMFERENTIAL -Current Size (cm) - Length 13 -Current Size (cm) - Width 7.1 -Current Size (cm) - Depth 0.1 -Total Square Cm 92.3 -Photo Taken No -Exudate Amt Medium -Exudate Type Serosanguineous -Wound Margin Indistinct, Non -Visible -Granulation Amt Large (67-100%) -Granulation Quality [place] -Necrosis Amt Small (1-33%) -Necrotic Tissue Type Adherent Slough -Structure Exposed N/A -Texture (Jaylyn-wound Skin Appearance) Scarring -Moisture (Jaylyn-wound Skin Appearance Dry/Scaly ) -Color (Jaylyn-wound Skin Appearance) Erythema, Hemosiderin Staining -Temperature (Jaylyn-wound Skin No Abnormality Appearance) (Pt Warm) -Tenderness on Palpation (Jaylyn-wound No Skin Appearance) -Ulcer Cleansing Wound Cleanser -Foul Odor after Cleansing No -Anesthetic Used 4% Lidocaine Solution [Edema Assessment] -Right Calf (cm) 49 -Right Ankle (cm) 33.5 -Left Calf (cm) 52 -Left Ankle (cm) 35.6 MAXX - Nurse 2 - General Ulcer CM Notes Start: 12/10/18 09:30 Freq: Status: Active Protocol: Activity Type Activity Date Activity User E-Sign Co-Sign Detail Recorded Client Recorded Date Recorded By Document 12/10/18 09:50 MW [id number] 12/10/18 09:55 MW 12/10/18 09:50 Wound Center Nurse 2 [Procedure/Treatment] #5 RIGHT DORSAL FOOT -Time 09:50 -Correct Patient Yes -Correct Side, Site, Position Yes -Correct Procedure Yes -Procedure Performed No -Wound/Ulcer Outcome Healed- Epithelialized #4 right lateral foot -Time 09:50 -Correct Patient Yes -Correct Side, Site, Position Yes -Correct Procedure Yes -Procedure Performed No -Wound/Ulcer Outcome Healed- Epithelialized #3- RLE CIRCUMFERENTIAL -Time 09:50 -Correct Patient Yes -Correct Side, Site, Position Yes -Correct Procedure Yes -Procedure Performed Yes -Type of Procedure Debridement -Clinical Debridement Subcutaneous -Post Debridement Size (cm) - Length 14.0 -Post Debridement Size (cm) - Width 8.5 -Post Debridement Size (cm) - Depth 0.1 -Total Square Cm 119.00 -Wound/Ulcer Outcome Not Healed -Ulcer Cleansing Rinsed/ Irrigated with Saline -Foul Odor after Cleansing No -Bioengineered Tissue No -Bleeding Controlled with Pressure -Offloading No -Treatment Response Procedure Tolerated Well [See Physician Procedure note for Specifics] Pain Scale: 0-10 Numeric [Pain] -Is Patient Pain Free? Yes Musculoskeletal: No Muscle Wasting Neurological: Cranial nerves II-XII grossly intact Psych/Mental Status: Normal Affect Debridement Note Post-Debridement Measurements/Treatment WC - Nurse 2 - General Ulcer CM Notes Start: 12/10/18 09:30 Freq: Status: Active Protocol: Activity Type Activity Date Activity User E-Sign Co-Sign Detail Recorded Client Recorded Date Recorded By Document 12/10/18 09:50 MW [id number] 12/10/18 09:55 MW 12/10/18 09:50 Wound Center Nurse 2 #5 RIGHT DORSAL FOOT -Time 09:50 -Correct Patient Yes -Correct Side, Site, Position Yes -Correct Procedure Yes -Procedure Performed No -Wound/Ulcer Outcome Healed- Epithelialized #4 right lateral foot -Time 09:50 -Correct Patient Yes -Correct Side, Site, Position Yes -Correct Procedure Yes -Procedure Performed No -Wound/Ulcer Outcome Healed- Epithelialized #3- RLE CIRCUMFERENTIAL -Time 09:50 -Correct Patient Yes -Correct Side, Site, Position Yes -Correct Procedure Yes -Procedure Performed Yes -Type of Procedure Debridement -Clinical Debridement Subcutaneous -Post Debridement Size (cm) - Length 14.0 -Post Debridement Size (cm) - Width 8.5 -Post Debridement Size (cm) - Depth 0.1 -Total Square Cm 119.00 -Wound/Ulcer Outcome Not Healed -Ulcer Cleansing Rinsed/ Irrigated with Saline -Foul Odor after Cleansing No -Bioengineered Tissue No -Bleeding Controlled with Pressure -Offloading No -Treatment Response Procedure Tolerated Well Pain Scale: 0-10 Numeric Is Patient Pain Free? Yes Wound debrided: Left lower extremity Wound Grade/Stage: Stage II Type of Debridement: Excisional debridement Anesthesia Used: 4% Lidocaine Solution Depth: Down to and including healthy tissue, in the subcutaneous layer Percentage of wound debrided: 100 Instrument Used: 5mm curette Tissue Removed: Slough and devitalized tissue Severity: Fat Layer Exposed Amount of bleeding with debridement: Mild Bleeding Controlled with: Pressure Patient tolerated procedure well Assessment/Plan Active Problems (Last Reviewed 08/17/18 @ 15:02 by Benita Hong) Ulcer of left lower extremity with fat layer exposed (Chronic) Lymphedema of both lower extremities (Chronic) Ulcer of right lower extremity with fat layer exposed (Chronic) Type 2 diabetes mellitus (Chronic) Assessment: Same as above. Plan: Right lower extremity is improving however, worsening left leg edema and new areas of ulceration. Debridement done as documented above, procedure was well-tolerated. Continue Aquacel extra with ABD over top to all ulcers. 3M wraps for edema management. Now has home health. Change on and Friday by home health. Patient unable to care for himself at home and he lives alone. Strongly advised to elevate his lower extremity when seated in bed. Weight loss and exercise also recommended. Order for Lymhedema pump has been placed, he will benefit from this. All his questions were answered and he was advised to call with any further questions or concerns. Follow-up in 1 week. This note was generated with [employer] software. It may contain incorrect words, spelling, and punctuation that were not noted in checking the note before signing.
[2018-12-17 11:40] VITALS: BP 128/78; PULSE 83; RESP 18; TEMP 36.9; BMI 45.9
--- NOTE | 2018-12-17 12:56 | PN.PCM_ITS ---
(1) Ulcer of right lower extremity with fat layer exposed Status: Chronic Current Visit: Yes Code(s): L97.912 - Non-pressure chronic ulcer of unspecified part of right lower leg with fat layer exposed (2) Lymphedema of both lower extremities Status: Chronic Current Visit: Yes Code(s): I89.0 - Lymphedema, not elsewhere classified (3) Type 2 diabetes mellitus Status: Chronic Current Visit: Yes Code(s): E11.9 - Type 2 diabetes mellitus without complications (4) Ulcer of left lower extremity with fat layer exposed Status: Chronic Current Visit: Yes Code(s): L97.922 - Non-pressure chronic ulcer of unspecified part of left lower leg with fat layer exposed Type of Wound Date of Service: 12/17/18 Chief Complaint: Right lower extremity ulcer. History of Wound: Mr. Russell is a 68yo who was last seen here about a month ago for left lower extremity ulcer and now presents with right lower extremity ulcer. He states that he noted this 3 days ago. Denies any nonprescription factors however has noted worsening right lower extremity swelling as well. Also reports pain. He denies chills, fever otherwise feeling of unwell. Admits to clear, copious drainage. Progress of Wound: No new cocners at this time. Right leg improved. left still with significnat swelling and ulcerations. - Physical Exam Vital Signs Temp Pulse Resp BP 98.4 F 83 18 128/78 H 12/17/18 11:40 12/17/18 11:40 12/17/18 11:40 12/17/18 11:40 General: Alert, Oriented x3, Cooperative, No apparent distress HEENT: Atraumatic, Normocephalic Oral: Moist Mucosa Neck: Supple Lungs: Normal air movement Abdomen: Non Tender, Obese Extremities: No cyanosis, Edema Skin: Ulcer/ Wound Wound Measurements and Assessment WC - Nurse 1 - General Ulcer Measurement Start: 12/10/18 09:30 Freq: Status: Active Protocol: Activity Type Activity Date Activity User E-Sign Co-Sign Detail Recorded Client Recorded Date Recorded By Document 12/17/18 11:40 NV [id number] 12/17/18 11:52 NV 12/17/18 11:40 Wound Center Nurse 1 [Ulcer Assessment] #3- RLE CIRCUMFERENTIAL -Current Size (cm) - Length 24 -Current Size (cm) - Width 14 -Current Size (cm) - Depth 0.1 -Total Square Cm 336 -Exudate Amt Large -Exudate Type Serous -Wound Margin Flat & Intact -Granulation Amt Large (67-100%) -Granulation Quality Pale,[place] -Necrosis Amt Small (1-33%) -Necrotic Tissue Type Adherent Slough -Texture (Jaylyn-wound Skin Appearance) Assessed, Localized Edema -Moisture (Jaylyn-wound Skin Appearance Assessed, ) Weeping -Color (Jaylyn-wound Skin Appearance) Assessed, Erythema -Temperature (Jaylyn-wound Skin No Abnormality Appearance) (Pt Warm) -Tenderness on Palpation (Jaylyn-wound Yes Skin Appearance) -Ulcer Cleansing Wound Cleanser -Anesthetic Used 4% Lidocaine Solution [Edema Assessment] -Right Calf (cm) 47.3 -Right Ankle (cm) 32.2 -Left Calf (cm) 52.5 -Left Ankle (cm) 34.3 WC - Nurse 2 - General Ulcer CM Notes Start: 12/10/18 09:30 Freq: Status: Active Protocol: Activity Type Activity Date Activity User E-Sign Co-Sign Detail Recorded Client Recorded Date Recorded By Document 12/17/18 12:07 MW [id number] 12/17/18 12:15 MW 12/17/18 12:07 Wound Center Nurse 2 [Procedure/Treatment] #4 LLE -Time 12:10 -Correct Patient Yes -Correct Side, Site, Position Yes -Correct Procedure Yes -Procedure Performed Yes -Type of Procedure Debridement -Clinical Debridement Subcutaneous -Post Debridement Size (cm) - Length 19.0 -Post Debridement Size (cm) - Width 14.0 -Post Debridement Size (cm) - Depth 0.1 -Total Square Cm 266.00 -Wound/Ulcer Outcome Not Healed -Ulcer Cleansing Rinsed/ Irrigated with Saline -Foul Odor after Cleansing No -Bioengineered Tissue No -Bleeding Controlled with Pressure -Offloading No -Treatment Response Procedure Tolerated Well #3- RLE CIRCUMFERENTIAL -Time 12:09 -Correct Patient Yes -Correct Side, Site, Position Yes -Correct Procedure Yes -Procedure Performed Yes -Type of Procedure Debridement -Clinical Debridement Subcutaneous -Post Debridement Size (cm) - Length 13.5 -Post Debridement Size (cm) - Width 6.0 -Post Debridement Size (cm) - Depth 0.1 -Total Square Cm 81.00 -Wound/Ulcer Outcome Not Healed -Ulcer Cleansing Rinsed/ Irrigated with Saline -Foul Odor after Cleansing No -Bioengineered Tissue No -Bleeding Controlled with Pressure -Offloading No -Treatment Response Procedure Tolerated Well [See Physician Procedure note for Specifics] Pain Scale: 0-10 Numeric [Pain] -Is Patient Pain Free? Yes Musculoskeletal: No Muscle Wasting Neurological: Cranial nerves II-XII grossly intact Psych/Mental Status: Normal Affect Debridement Note Post-Debridement Measurements/Treatment WC - Nurse 2 - General Ulcer CM Notes Start: 12/10/18 09:30 Freq: Status: Active Protocol: Activity Type Activity Date Activity User E-Sign Co-Sign Detail Recorded Client Recorded Date Recorded By Document 12/10/18 09:50 MW [id number] 12/10/18 09:55 MW Document 12/17/18 12:07 MW [id number] 12/17/18 12:15 MW 12/10/18 12/17/18 09:50 12:07 Wound Center Nurse 2 #4 LLE -Time 12:10 -Correct Patient Yes -Correct Side, Site, Position Yes -Correct Procedure Yes -Procedure Performed Yes -Type of Procedure Debridement -Clinical Debridement Subcutaneous -Post Debridement Size (cm) - Length 19.0 -Post Debridement Size (cm) - Width 14.0 -Post Debridement Size (cm) - Depth 0.1 -Total Square Cm 266.00 -Wound/Ulcer Outcome Not Healed -Ulcer Cleansing Rinsed/ Irrigated with Saline -Foul Odor after Cleansing No -Bioengineered Tissue No -Bleeding Controlled with Pressure -Offloading No -Treatment Response Procedure Tolerated Well #5 RIGHT DORSAL FOOT -Time 09:50 -Correct Patient Yes -Correct Side, Site, Position Yes -Correct Procedure Yes -Procedure Performed No -Wound/Ulcer Outcome Healed- Epithelialized #4 right lateral foot -Time 09:50 -Correct Patient Yes -Correct Side, Site, Position Yes -Correct Procedure Yes -Procedure Performed No -Wound/Ulcer Outcome Healed- Epithelialized #3- RLE CIRCUMFERENTIAL -Time 09:50 12:09 -Correct Patient Yes Yes -Correct Side, Site, Position Yes Yes -Correct Procedure Yes Yes -Procedure Performed Yes Yes -Type of Procedure Debridement Debridement -Clinical Debridement Subcutaneous Subcutaneous -Post Debridement Size (cm) - Length 14.0 13.5 -Post Debridement Size (cm) - Width 8.5 6.0 -Post Debridement Size (cm) - Depth 0.1 0.1 -Total Square Cm 119.00 81.00 -Wound/Ulcer Outcome Not Healed Not Healed -Ulcer Cleansing Rinsed/ Rinsed/ Irrigated with Irrigated with Saline Saline -Foul Odor after Cleansing No No -Bioengineered Tissue No No -Bleeding Controlled with Pressure Pressure -Offloading No No -Treatment Response Procedure Procedure Tolerated Well Tolerated Well Pain Scale: 0-10 Numeric Is Patient Pain Free? Yes Yes Wound debrided: Right lowe etxremity cluster Wound Grade/Stage: Stage II Type of Debridement: Excisional debridement Anesthesia Used: 4% Lidocaine Solution Depth: Down to and including healthy tissue, in the subcutaneous layer Percentage of wound debrided: 100 Instrument Used: 7mm curette Tissue Removed: Slough and devitalized tissue Severity: Fat Layer Exposed Amount of bleeding with debridement: Mild Bleeding Controlled with: Pressure Patient tolerated procedure well - Additional Wound Wound debrided: Left lower extremity (Cluster ) Wound Grade/Stage: Stage II Type of Debridement: Excisional debridement Anesthesia Used: 4% Lidocaine Solution Depth: Down to and including healthy tissue, in the subcutaneous layer Percentage of wound debrided: 100 Instrument Used: 7mm curette Tissue Removed: Slough and devitalized tissue Severity: Fat Layer Exposed Amount of bleeding with debridement: Mild Bleeding Controlled with: Pressure Patient tolerated procedure: Patient tolerated procedure well Assessment/Plan Active Problems (Last Reviewed 08/17/18 @ 15:02 by Benita Hong) Ulcer of left lower extremity with fat layer exposed (Chronic) Lymphedema of both lower extremities (Chronic) Ulcer of right lower extremity with fat layer exposed (Chronic) Type 2 diabetes mellitus (Chronic) Assessment: Same as above. Plan: Stable. Debridement done as documented above, procedure was well- tolerated. Continue Aquacel extra with ABD over top to all ulcers. 3M wraps for edema management. Now has home health. Change on and Friday by home health. Patient unable to care for himself at home and he lives alone. Strongly advised to elevate his lower extremity when seated in bed. Also has now started on his lymphedema pumps. advised to use it for an 1 hour twice megan ly. He will benefit from this. All his questions were answered and he was advised to call with any further questions or concerns. Follow-up in 1 week. This note was generated with Dragon dictation software. It may contain incorrect words, spelling, and punctuation that were not noted in checking the note before signing.
[2018-12-24 09:12] VITALS: BMI 45.9
[2018-12-24 09:15] VITALS: BP 160/82; PULSE 78; RESP 18; TEMP 36.1; BMI 45.9
--- NOTE | 2018-12-24 09:49 | PN.PCM_ITS ---
(1) Ulcer of right lower extremity with fat layer exposed Status: Chronic Current Visit: Yes Code(s): L97.912 - Non-pressure chronic ulcer of unspecified part of right lower leg with fat layer exposed (2) Lymphedema of both lower extremities Status: Chronic Current Visit: Yes Code(s): I89.0 - Lymphedema, not elsewhere classified (3) Type 2 diabetes mellitus Status: Chronic Current Visit: Yes Code(s): E11.9 - Type 2 diabetes mellitus without complications (4) Ulcer of left lower extremity with fat layer exposed Status: Chronic Current Visit: Yes Code(s): L97.922 - Non-pressure chronic ulcer of unspecified part of left lower leg with fat layer exposed Type of Wound Date of Service: 12/24/18 Chief Complaint: Right lower extremity ulcer. History of Wound: Mr. Russell is a 68yo who was last seen here about a month ago for left lower extremity ulcer and now presents with right lower extremity ulcer. He states that he noted this 3 days ago. Denies any nonprescription factors however has noted worsening right lower extremity swelling as well. Also reports pain. He denies chills, fever otherwise feeling of unwell. Admits to clear, copious drainage. Progress of Wound: Edema is improving. Tolerating and utilizing the pumps really well. Prior right lower extremity ulcers have healed. However presents with a new right proximal ulcer. - Physical Exam Vital Signs Temp Pulse Resp BP 97.0 F L 78 18 160/82 H 12/24/18 09:15 12/24/18 09:15 12/24/18 09:15 12/24/18 09:15 General: Alert, Oriented x3, Cooperative, No apparent distress HEENT: Atraumatic, Normocephalic Oral: Moist Mucosa Neck: Supple Lungs: Normal air movement Abdomen: Non Tender, Obese Extremities: No cyanosis, Edema Skin: Ulcer/ Wound Wound Measurements and Assessment WC - Nurse 1 - General Ulcer Measurement Start: 12/10/18 09:30 Freq: Status: Active Protocol: Activity Type Activity Date Activity User E-Sign Co-Sign Detail Recorded Client Recorded Date Recorded By Document 12/24/18 09:12 NV [id number] 12/24/18 09:15 NV 12/24/18 09:12 Wound Center Nurse 1 [Ulcer Assessment] #6 LLE -Current Size (cm) - Length 20 -Current Size (cm) - Width 17.5 -Current Size (cm) - Depth 0.1 -Total Square Cm 350.0 -Exudate Amt Medium -Exudate Type Serosanguineous -Wound Margin Flat & Intact -Granulation Amt Large (67-100%) -Granulation Quality Pale,[place] -Necrosis Amt Small (1-33%) -Necrotic Tissue Type Adherent Slough -Texture (Jaylyn-wound Skin Appearance) Assessed -Moisture (Jaylyn-wound Skin Appearance Assessed, ) Weeping,Dry/ Scaly -Color (Jaylyn-wound Skin Appearance) Assessed -Temperature (Jaylyn-wound Skin No Abnormality Appearance) (Pt Warm) -Tenderness on Palpation (Jaylyn-wound No Skin Appearance) -Ulcer Cleansing Rinsed/ Irrigated with Saline -Foul Odor after Cleansing No -Anesthetic Used 4% Lidocaine Solution #3- RLE CIRCUMFERENTIAL -Current Size (cm) - Length 3.5 -Current Size (cm) - Width 7.3 -Current Size (cm) - Depth 0.1 -Total Square Cm 25.55 -Exudate Amt Medium -Exudate Type Serosanguineous -Wound Margin Flat & Intact -Granulation Amt Medium (34-66%) -Granulation Quality Pale,[place] -Necrosis Amt Medium (34-66%) -Necrotic Tissue Type Adherent Slough -Texture (Jaylyn-wound Skin Appearance) Assessed -Moisture (Jaylyn-wound Skin Appearance Assessed, ) Weeping,Dry/ Scaly -Color (Jaylyn-wound Skin Appearance) Assessed -Temperature (Jaylyn-wound Skin No Abnormality Appearance) (Pt Warm) -Tenderness on Palpation (Jaylyn-wound No Skin Appearance) -Ulcer Cleansing Rinsed/ Irrigated with Saline -Foul Odor after Cleansing No -Anesthetic Used 4% Lidocaine Solution [Edema Assessment] -Right Calf (cm) 46.5 -Right Ankle (cm) 32.5 -Left Calf (cm) 52.1 -Left Ankle (cm) 34.2 WC - Nurse 2 - General Ulcer CM Notes Start: 12/10/18 09:30 Freq: Status: Active Protocol: Activity Type Activity Date Activity User E-Sign Co-Sign Detail Recorded Client Recorded Date Recorded By Document 12/24/18 09:24 AN [id number] 12/24/18 09:31 AN 12/24/18 09:24 Wound Center Nurse 2 [Procedure/Treatment] #7 right medial leg cluster -Time 09:31 -Correct Patient Yes -Correct Side, Site, Position Yes -Correct Procedure Yes -Procedure Performed Yes -Type of Procedure Debridement -Clinical Debridement Subcutaneous -Post Debridement Size (cm) - Length 4 -Post Debridement Size (cm) - Width 7 -Post Debridement Size (cm) - Depth 0.1 -Total Square Cm 28 -Wound/Ulcer Outcome Not Healed -Ulcer Cleansing Rinsed/ Irrigated with Saline -Bleeding Controlled with Pressure -Treatment Response Procedure Tolerated Well #6 LLE -Time 09:25 -Correct Patient Yes -Correct Side, Site, Position Yes -Correct Procedure Yes -Procedure Performed Yes -Type of Procedure Debridement -Clinical Debridement Subcutaneous -Post Debridement Size (cm) - Length 11.5 -Post Debridement Size (cm) - Width 8 -Post Debridement Size (cm) - Depth 0.1 -Total Square Cm 92.0 -Wound/Ulcer Outcome Not Healed -Ulcer Cleansing Rinsed/ Irrigated with Saline -Bleeding Controlled with Pressure -Treatment Response Procedure Tolerated Well #3- RLE CIRCUMFERENTIAL -Time 09:30 [See Physician Procedure note for Specifics] Pain Scale: 0-10 Numeric [Pain] -Is Patient Pain Free? Yes Musculoskeletal: No Muscle Wasting Neurological: Cranial nerves II-XII grossly intact Psych/Mental Status: Normal Affect Debridement Note Post-Debridement Measurements/Treatment WC - Nurse 2 - General Ulcer CM Notes Start: 12/10/18 09:30 Freq: Status: Active Protocol: Activity Type Activity Date Activity User E-Sign Co-Sign Detail Recorded Client Recorded Date Recorded By Document 12/10/18 09:50 MW [id number] 12/10/18 09:55 MW Document 12/17/18 12:07 MW [id number] 12/17/18 12:15 MW Document 12/24/18 09:24 AN [id number] 12/24/18 09:31 AN 12/10/18 12/17/18 12/24/18 09:50 12:07 09:24 Wound Center Nurse 2 #7 right medial leg cluster -Time 09:31 -Correct Patient Yes -Correct Side, Site, Position Yes -Correct Procedure Yes -Procedure Performed Yes -Type of Procedure Debridement -Clinical Debridement Subcutaneous -Post Debridement Size (cm) - Length 4 -Post Debridement Size (cm) - Width 7 -Post Debridement Size (cm) - Depth 0.1 -Total Square Cm 28 -Wound/Ulcer Outcome Not Healed -Ulcer Cleansing Rinsed/ Irrigated with Saline -Bleeding Controlled with Pressure -Treatment Response Procedure Tolerated Well #6 LLE -Time 12:10 09:25 -Correct Patient Yes Yes -Correct Side, Site, Position Yes Yes -Correct Procedure Yes Yes -Procedure Performed Yes Yes -Type of Procedure Debridement Debridement -Clinical Debridement Subcutaneous Subcutaneous -Post Debridement Size (cm) - Length 19.0 11.5 -Post Debridement Size (cm) - Width 14.0 8 -Post Debridement Size (cm) - Depth 0.1 0.1 -Total Square Cm 266.00 92.0 -Wound/Ulcer Outcome Not Healed Not Healed -Ulcer Cleansing Rinsed/ Rinsed/ Irrigated with Irrigated with Saline Saline -Foul Odor after Cleansing No -Bioengineered Tissue No -Bleeding Controlled with Pressure Pressure -Offloading No -Treatment Response Procedure Procedure Tolerated Well Tolerated Well #5 RIGHT DORSAL FOOT -Time 09:50 -Correct Patient Yes -Correct Side, Site, Position Yes -Correct Procedure Yes -Procedure Performed No -Wound/Ulcer Outcome Healed- Epithelialized #4 right lateral foot -Time 09:50 -Correct Patient Yes -Correct Side, Site, Position Yes -Correct Procedure Yes -Procedure Performed No -Wound/Ulcer Outcome Healed- Epithelialized #3- RLE CIRCUMFERENTIAL -Time 09:50 12:09 09:30 -Correct Patient Yes Yes -Correct Side, Site, Position Yes Yes -Correct Procedure Yes Yes -Procedure Performed Yes Yes -Type of Procedure Debridement Debridement -Clinical Debridement Subcutaneous Subcutaneous -Post Debridement Size (cm) - Length 14.0 13.5 -Post Debridement Size (cm) - Width 8.5 6.0 -Post Debridement Size (cm) - Depth 0.1 0.1 -Total Square Cm 119.00 81.00 -Wound/Ulcer Outcome Not Healed Not Healed -Ulcer Cleansing Rinsed/ Rinsed/ Irrigated with Irrigated with Saline Saline -Foul Odor after Cleansing No No -Bioengineered Tissue No No -Bleeding Controlled with Pressure Pressure -Offloading No No -Treatment Response Procedure Procedure Tolerated Well Tolerated Well Pain Scale: 0-10 Numeric Is Patient Pain Free? Yes Yes Yes Wound debrided: Left lower extremity ( Cluster ) Type of Debridement: Excisional debridement Anesthesia Used: 4% Lidocaine Solution Depth: Down to and including healthy tissue, in the subcutaneous layer Percentage of wound debrided: 100 Instrument Used: 7mm curette Tissue Removed: Slough and devitalized tissue Severity: Fat Layer Exposed Amount of bleeding with debridement: Mild Bleeding Controlled with: Pressure Patient tolerated procedure well - Additional Wound Wound debrided: Right leg cluster Type of Debridement: Excisional debridement Anesthesia Used: 4% Lidocaine Solution Depth: Down to and including healthy tissue, in the subcutaneous layer Percentage of wound debrided: 100 Instrument Used: 7mm curette Tissue Removed: Slough and devitalized tissue Severity: Fat Layer Exposed Amount of bleeding with debridement: Mild Bleeding Controlled with: Compression and gauze Patient tolerated procedure: Patient tolerated procedure well Assessment/Plan Active Problems (Last Reviewed 08/17/18 @ 15:02 by Benita Hnog) Ulcer of left lower extremity with fat layer exposed (Chronic) Lymphedema of both lower extremities (Chronic) Ulcer of right lower extremity with fat layer exposed (Chronic) Type 2 diabetes mellitus (Chronic) Assessment: Same as above. Plan: Improving. Debridement done as documented above, procedure was well- tolerated. Continue Aquacel extra with ABD over top to all ulcers. 3M wraps for edema management. Change on and Friday by home health. Patient unable to care for himself at home and he lives alone. Strongly advised to elevate his lower extremity when seated in bed. Continue Lymphedema pump. Compliance encouraged. He is benefitting from it. All his questions were answered and he was advised to call with any further questions or concerns. Follow-up in 1 week. This note was generated with [employer] dictation software. It may contain incorrect words, spelling, and punctuation that were not noted in checking the note before signing.
[2018-12-31 08:32] VITALS: BP 154/93; PULSE 77; RESP 18; TEMP 36.6; BMI 45.9
--- NOTE | 2018-12-31 09:24 | PN.PCM_ITS ---
(1) Ulcer of right lower extremity with fat layer exposed Status: Chronic Current Visit: Yes Code(s): L97.912 - Non-pressure chronic ulcer of unspecified part of right lower leg with fat layer exposed (2) Lymphedema of both lower extremities Status: Chronic Current Visit: Yes Code(s): I89.0 - Lymphedema, not elsewhere classified (3) Type 2 diabetes mellitus Status: Chronic Current Visit: Yes Code(s): E11.9 - Type 2 diabetes mellitus without complications (4) Ulcer of left lower extremity with fat layer exposed Status: Chronic Current Visit: Yes Code(s): L97.922 - Non-pressure chronic ulcer of unspecified part of left lower leg with fat layer exposed Type of Wound Date of Service: 12/31/18 Chief Complaint: Right lower extremity ulcer. History of Wound: Mr. Russell is a 68yo who was last seen here about a month ago for left lower extremity ulcer and now presents with right lower extremity ulcer. He states that he noted this 3 days ago. Denies any nonprescription factors however has noted worsening right lower extremity swelling as well. Also reports pain. He denies chills, fever otherwise feeling of unwell. Admits to clear, copious drainage. Progress of Wound: Edema continue sto improve. He reports compliance with his pumps. New right ankle ulcer. Not sure how he got it or when excatly. - Physical Exam Vital Signs Temp Pulse Resp BP 97.8 F 77 18 154/93 H 12/31/18 08:32 12/31/18 08:32 12/31/18 08:32 12/31/18 08:32 General: Alert, Oriented x3, Cooperative, No apparent distress HEENT: Atraumatic, Normocephalic Oral: Moist Mucosa Neck: Supple Lungs: Normal air movement Abdomen: Non Tender, Obese Extremities: No cyanosis, Edema Skin: Ulcer/ Wound Wound Measurements and Assessment WC - Nurse 1 - General Ulcer Measurement Start: 12/10/18 09:30 Freq: Status: Active Protocol: Activity Type Activity Date Activity User E-Sign Co-Sign Detail Recorded Client Recorded Date Recorded By Document 12/31/18 08:32 BS [id number] 12/31/18 08:43 BS 12/31/18 08:32 Wound Center Nurse 1 [Ulcer Assessment] #8 R medial ankle -Combined with other wound No -Current Size (cm) - Length 2.0 -Current Size (cm) - Width 2.5 -Current Size (cm) - Depth 0.1 -Total Square Cm 5.00 -Date of Last Picture (Recall this 12/31/18 field) -Photo Taken Yes -Tunneling No -Temperature (Jaylyn-wound Skin No Abnormality Appearance) (Pt Warm) -Tenderness on Palpation (Jaylyn-wound No Skin Appearance) -Ulcer Cleansing Rinsed/ Irrigated with Saline -Anesthetic Used 5% Lidocaine Gel #7 right lateral leg cluster -Combined with other wound No -Current Size (cm) - Length 0.1 -Current Size (cm) - Width 0.1 -Current Size (cm) - Depth 0.1 -Total Square Cm 0.01 -Photo Taken No -Temperature (Jaylyn-wound Skin No Abnormality Appearance) (Pt Warm) -Tenderness on Palpation (Jaylyn-wound No Skin Appearance) -Ulcer Cleansing Rinsed/ Irrigated with Saline -Foul Odor after Cleansing No -Anesthetic Used 5% Lidocaine Gel #6 LLE -Combined with other wound No -Current Size (cm) - Length 4 -Current Size (cm) - Width 6 -Current Size (cm) - Depth 0.1 -Total Square Cm 24 -Photo Taken No -Temperature (Jaylyn-wound Skin No Abnormality Appearance) (Pt Warm) -Tenderness on Palpation (Jaylyn-wound No Skin Appearance) -Ulcer Cleansing Rinsed/ Irrigated with Saline -Anesthetic Used 5% Lidocaine Gel [Edema Assessment] -Lower Limb Edema Present Yes -Point of measurement (cm from the 44.5 medial instep) -Point of Measurement (cm from the 33.0 medial instep) -Point of measurement (cm from the 52.0 medial instep) -Point of Measurement (cm from the 34.0 medial instep) WC - Nurse 2 - General Ulcer CM Notes Start: 12/10/18 09:30 Freq: Status: Active Protocol: Activity Type Activity Date Activity User E-Sign Co-Sign Detail Recorded Client Recorded Date Recorded By Document 12/31/18 09:13 MW [id number] 12/31/18 09:21 MW 12/31/18 09:13 Wound Center Nurse 2 [Procedure/Treatment] #8 R medial ankle -Time 09:13 -Correct Patient Yes -Correct Side, Site, Position Yes -Correct Procedure Yes -Procedure Performed Yes -Type of Procedure Debridement -Clinical Debridement Subcutaneous -Post Debridement Size (cm) - Length 1.5 -Post Debridement Size (cm) - Width 2.5 -Post Debridement Size (cm) - Depth 0.1 -Total Square Cm 3.75 -Wound/Ulcer Outcome Not Healed -Ulcer Cleansing Rinsed/ Irrigated with Saline -Foul Odor after Cleansing No -Bioengineered Tissue No -Bleeding Controlled with Pressure -Offloading No -Treatment Response Procedure Tolerated Well #7 right lateral leg cluster -Time 09:14 -Correct Patient Yes -Correct Side, Site, Position Yes -Correct Procedure Yes -Procedure Performed No -Post Debridement Size (cm) - Length 0 -Post Debridement Size (cm) - Width 0 -Post Debridement Size (cm) - Depth 0 -Total Square Cm 0 -Wound/Ulcer Outcome Healed- Epithelialized #6 LLE -Time 09:15 -Correct Patient Yes -Correct Side, Site, Position Yes -Correct Procedure Yes -Procedure Performed Yes -Type of Procedure Debridement -Clinical Debridement Subcutaneous -Post Debridement Size (cm) - Length 13.0 -Post Debridement Size (cm) - Width 10.0 -Post Debridement Size (cm) - Depth 0.1 -Total Square Cm 130.00 -Wound/Ulcer Outcome Not Healed -Ulcer Cleansing Rinsed/ Irrigated with Saline -Foul Odor after Cleansing No -Bioengineered Tissue No -Bleeding Controlled with Pressure -Offloading No -Treatment Response Procedure Tolerated Well [See Physician Procedure note for Specifics] Pain Scale: 0-10 Numeric [Pain] -Is Patient Pain Free? Yes Musculoskeletal: No Muscle Wasting Neurological: Cranial nerves II-XII grossly intact Psych/Mental Status: Normal Affect Debridement Note Post-Debridement Measurements/Treatment WC - Nurse 2 - General Ulcer CM Notes Start: 12/10/18 09:30 Freq: Status: Active Protocol: Activity Type Activity Date Activity User E-Sign Co-Sign Detail Recorded Client Recorded Date Recorded By Document 12/10/18 09:50 MW [id number] 12/10/18 09:55 MW Document 12/17/18 12:07 MW [id number] 12/17/18 12:15 MW Document 12/24/18 09:24 AN [id number] 12/24/18 09:31 AN Document 12/31/18 09:13 MW [id number] 12/31/18 09:21 MW 12/10/18 12/17/1819 09:50 12:07 09:24 Wound Center Nurse 2 #8 R medial ankle -Time -Correct Patient -Correct Side, Site, Position -Correct Procedure -Procedure Performed -Type of Procedure -Clinical Debridement -Post Debridement Size (cm) - Length -Post Debridement Size (cm) - Width -Post Debridement Size (cm) - Depth -Total Square Cm -Wound/Ulcer Outcome -Ulcer Cleansing -Foul Odor after Cleansing -Bioengineered Tissue -Bleeding Controlled with -Offloading -Treatment Response #7 right lateral leg cluster -Time 09:31 -Correct Patient Yes -Correct Side, Site, Position Yes -Correct Procedure Yes -Procedure Performed Yes -Type of Procedure Debridement -Clinical Debridement Subcutaneous -Post Debridement Size (cm) - Length 4 -Post Debridement Size (cm) - Width 7 -Post Debridement Size (cm) - Depth 0.1 -Total Square Cm 28 -Wound/Ulcer Outcome Not Healed -Ulcer Cleansing Rinsed/ Irrigated with Saline -Bleeding Controlled with Pressure -Treatment Response Procedure Tolerated Well #6 LLE -Time 12:10 09:25 -Correct Patient Yes Yes -Correct Side, Site, Position Yes Yes -Correct Procedure Yes Yes -Procedure Performed Yes Yes -Type of Procedure Debridement Debridement -Clinical Debridement Subcutaneous Subcutaneous -Post Debridement Size (cm) - Length 19.0 11.5 -Post Debridement Size (cm) - Width 14.0 8 -Post Debridement Size (cm) - Depth 0.1 0.1 -Total Square Cm 266.00 92.0 -Wound/Ulcer Outcome Not Healed Not Healed -Ulcer Cleansing Rinsed/ Rinsed/ Irrigated with Irrigated with Saline Saline -Foul Odor after Cleansing No -Bioengineered Tissue No -Bleeding Controlled with Pressure Pressure -Offloading No -Treatment Response Procedure Procedure Tolerated Well Tolerated Well #5 RIGHT DORSAL FOOT -Time 09:50 -Correct Patient Yes -Correct Side, Site, Position Yes -Correct Procedure Yes -Procedure Performed No -Wound/Ulcer Outcome Healed- Epithelialized #4 right lateral foot -Time 09:50 -Correct Patient Yes -Correct Side, Site, Position Yes -Correct Procedure Yes -Procedure Performed No -Wound/Ulcer Outcome Healed- Epithelialized #3- RLE CIRCUMFERENTIAL -Time 09:50 12:09 09:30 -Correct Patient Yes Yes -Correct Side, Site, Position Yes Yes -Correct Procedure Yes Yes -Procedure Performed Yes Yes -Type of Procedure Debridement Debridement -Clinical Debridement Subcutaneous Subcutaneous -Post Debridement Size (cm) - Length 14.0 13.5 -Post Debridement Size (cm) - Width 8.5 6.0 -Post Debridement Size (cm) - Depth 0.1 0.1 -Total Square Cm 119.00 81.00 -Wound/Ulcer Outcome Not Healed Not Healed -Ulcer Cleansing Rinsed/ Rinsed/ Irrigated with Irrigated with Saline Saline -Foul Odor after Cleansing No No -Bioengineered Tissue No No -Bleeding Controlled with Pressure Pressure -Offloading No No -Treatment Response Procedure Procedure Tolerated Well Tolerated Well Pain Scale: 0-10 Numeric Is Patient Pain Free? Yes Yes Yes 12/31/18 09:13 Wound Center Nurse 2 #8 R medial ankle -Time 09:13 -Correct Patient Yes -Correct Side, Site, Position Yes -Correct Procedure Yes -Procedure Performed Yes -Type of Procedure Debridement -Clinical Debridement Subcutaneous -Post Debridement Size (cm) - Length 1.5 -Post Debridement Size (cm) - Width 2.5 -Post Debridement Size (cm) - Depth 0.1 -Total Square Cm 3.75 -Wound/Ulcer Outcome Not Healed -Ulcer Cleansing Rinsed/ Irrigated with Saline -Foul Odor after Cleansing No -Bioengineered Tissue No -Bleeding Controlled with Pressure -Offloading No -Treatment Response Procedure Tolerated Well #7 right lateral leg cluster -Time 09:14 -Correct Patient Yes -Correct Side, Site, Position Yes -Correct Procedure Yes -Procedure Performed No -Type of Procedure -Clinical Debridement -Post Debridement Size (cm) - Length 0 -Post Debridement Size (cm) - Width 0 -Post Debridement Size (cm) - Depth 0 -Total Square Cm 0 -Wound/Ulcer Outcome Healed- Epithelialized -Ulcer Cleansing -Bleeding Controlled with -Treatment Response #6 LLE -Time 09:15 -Correct Patient Yes -Correct Side, Site, Position Yes -Correct Procedure Yes -Procedure Performed Yes -Type of Procedure Debridement -Clinical Debridement Subcutaneous -Post Debridement Size (cm) - Length 13.0 -Post Debridement Size (cm) - Width 10.0 -Post Debridement Size (cm) - Depth 0.1 -Total Square Cm 130.00 -Wound/Ulcer Outcome Not Healed -Ulcer Cleansing Rinsed/ Irrigated with Saline -Foul Odor after Cleansing No -Bioengineered Tissue No -Bleeding Controlled with Pressure -Offloading No -Treatment Response Procedure Tolerated Well #5 RIGHT DORSAL FOOT -Time -Correct Patient -Correct Side, Site, Position -Correct Procedure -Procedure Performed -Wound/Ulcer Outcome #4 right lateral foot -Time -Correct Patient -Correct Side, Site, Position -Correct Procedure -Procedure Performed -Wound/Ulcer Outcome #3- RLE CIRCUMFERENTIAL -Time -Correct Patient -Correct Side, Site, Position -Correct Procedure -Procedure Performed -Type of Procedure -Clinical Debridement -Post Debridement Size (cm) - Length -Post Debridement Size (cm) - Width -Post Debridement Size (cm) - Depth -Total Square Cm -Wound/Ulcer Outcome -Ulcer Cleansing -Foul Odor after Cleansing -Bioengineered Tissue -Bleeding Controlled with -Offloading -Treatment Response Pain Scale: 0-10 Numeric Is Patient Pain Free? Yes Wound debrided: Right ankle. Wound Grade/Stage: Stage II Type of Debridement: Excisional debridement Anesthesia Used: 4% Lidocaine Solution Depth: Down to and including healthy tissue, in the subcutaneous layer Percentage of wound debrided: 100 Instrument Used: 3mm curette Tissue Removed: Slough and devitalized tissue Severity: Fat Layer Exposed Amount of bleeding with debridement: Mild Bleeding Controlled with: Pressure Patient tolerated procedure well - Additional Wound Wound debrided: Left lower extremity cluster Wound Grade/Stage: Stage II Type of Debridement: Excisional debridement Anesthesia Used: 4% Lidocaine Solution Depth: Down to and including healthy tissue, in the subcutaneous layer Percentage of wound debrided: 100 Instrument Used: 7mm curette Tissue Removed: Slough and devitalized tissue Severity: Fat Layer Exposed Amount of bleeding with debridement: Mild Bleeding Controlled with: Pressure Patient tolerated procedure: Patient tolerated procedure well Assessment/Plan Active Problems (Last Reviewed 08/17/18 @ 15:02 by Benita Hong) Ulcer of left lower extremity with fat layer exposed (Chronic) Lymphedema of both lower extremities (Chronic) Ulcer of right lower extremity with fat layer exposed (Chronic) Type 2 diabetes mellitus (Chronic) Assessment: Same as above. Plan: New right ankle ulcer. Right leg ulcers healed. Left is clustered but improvement noted. Debridement done as documented above, procedure was well- tolerated. Continue Aquacel extra with ABD over top to all ulcers. 3M wraps for edema management. Change on and Friday by home health. Patient unable to care for himself at home and he lives alone. Strongly advised to elevate his lower extremity when seated in bed. Continue Lymphedema pump. Compliance encouraged. He is benefitting from it. All his questions were answered and he was advised to call with any further questions or concerns. Follow-up in 1 week. This note was generated with [employer] dictation software. It may contain incorrect words, spelling, and punctuation that were not noted in checking the note before signing.
[2019-01-06 08:58] VITALS: BP 147/81; PULSE 77; RESP 18; TEMP 36.6; BMI 45.9
--- NOTE | 2019-01-06 09:24 | PN.PCM_ITS ---
(1) Ulcer of right lower extremity with fat layer exposed Status: Chronic Current Visit: Yes Code(s): L97.912 - Non-pressure chronic ulcer of unspecified part of right lower leg with fat layer exposed (2) Lymphedema of both lower extremities Status: Chronic Current Visit: Yes Code(s): I89.0 - Lymphedema, not elsewhere classified (3) Type 2 diabetes mellitus Status: Chronic Current Visit: Yes Code(s): E11.9 - Type 2 diabetes mellitus without complications (4) Ulcer of left lower extremity with fat layer exposed Status: Chronic Current Visit: Yes Code(s): L97.922 - Non-pressure chronic ulcer of unspecified part of left lower leg with fat layer exposed Type of Wound Date of Service: 01/06/19 Chief Complaint: Right lower extremity ulcer. History of Wound: Mr. Russell is a 68yo who was last seen here about a month ago for left lower extremity ulcer and now presents with right lower extremity ulcer. He states that he noted this 3 days ago. Denies any nonprescription factors however has noted worsening right lower extremity swelling as well. Also reports pain. He denies chills, fever otherwise feeling of unwell. Admits to clear, copious drainage. Progress of Wound: No new concerns at this time. Right ankle with no significant improvement. - Physical Exam Vital Signs Temp Pulse Resp BP 98 F 77 18 147/81 H 01/06/19 08:58 01/06/19 08:58 01/06/19 08:58 01/06/19 08:58 General: Alert, Oriented x3, Cooperative, No apparent distress HEENT: Atraumatic, Normocephalic Oral: Moist Mucosa Neck: Supple Lungs: Normal air movement Abdomen: Non Tender, Obese Extremities: No cyanosis, Edema Skin: Ulcer/ Wound Wound Measurements and Assessment WC - Nurse 1 - General Ulcer Measurement Start: 12/10/18 09:30 Freq: Status: Active Protocol: Activity Type Activity Date Activity User E-Sign Co-Sign Detail Recorded Client Recorded Date Recorded By Document 01/06/19 08:58 RB [id number] 01/06/19 09:06 RB 01/06/19 08:58 Wound Center Nurse 1 [Ulcer Assessment] #8 R medial ankle -Combined with other wound No -Current Size (cm) - Length 1.8 -Current Size (cm) - Width 2.5 -Current Size (cm) - Depth 0.1 -Total Square Cm 4.50 -Tunneling No -Undermining/Tunneling No -Circular Undermining No -Exudate Amt Medium -Exudate Type Serosanguineous -Wound Margin Distinct, Outline Attached -Granulation Amt Medium (34-66%) -Granulation Quality [place] -Slough/Fibrin Yes -Necrosis Amt Medium (34-66%) -Necrotic Tissue Type Adherent Slough -Structure Exposed N/A -Texture (Jaylyn-wound Skin Appearance) Assessed -Moisture (Jaylyn-wound Skin Appearance Weeping ) -Color (Jaylyn-wound Skin Appearance) Assessed -Temperature (Jaylyn-wound Skin No Abnormality Appearance) (Pt Warm) -Tenderness on Palpation (Jaylyn-wound No Skin Appearance) -Ulcer Cleansing Wound Cleanser -Foul Odor after Cleansing No -Anesthetic Used 5% Lidocaine Gel #6 LLE -Combined with other wound No -Current Size (cm) - Length 13 -Current Size (cm) - Width 7.5 -Current Size (cm) - Depth 0.1 -Total Square Cm 97.5 -Tunneling No -Undermining/Tunneling No -Circular Undermining No -Exudate Amt Medium -Exudate Type Serosanguineous -Wound Margin Distinct, Outline Attached -Granulation Amt Medium (34-66%) -Granulation Quality [place] -Slough/Fibrin Yes -Necrosis Amt Small (1-33%) -Necrotic Tissue Type Adherent Slough -Structure Exposed N/A -Texture (Jaylyn-wound Skin Appearance) Assessed -Moisture (Jaylyn-wound Skin Appearance Weeping ) -Color (Jaylyn-wound Skin Appearance) Assessed -Temperature (Jaylyn-wound Skin No Abnormality Appearance) (Pt Warm) -Tenderness on Palpation (Jaylyn-wound No Skin Appearance) -Ulcer Cleansing Wound Cleanser -Foul Odor after Cleansing No -Anesthetic Used 5% Lidocaine Gel [Edema Assessment] -Lower Limb Edema Present Yes -Right Calf (cm) 45 -Right Ankle (cm) 31.7 -Left Calf (cm) 50.5 -Left Ankle (cm) 33.4 WC - Nurse 2 - General Ulcer CM Notes Start: 12/10/18 09:30 Freq: Status: Active Protocol: Activity Type Activity Date Activity User E-Sign Co-Sign Detail Recorded Client Recorded Date Recorded By Document 08/28/19 09:13 MW [id number] 01/06/19 09:22 MW 01/06/19 09:13 Wound Center Nurse 2 [Procedure/Treatment] #8 R medial ankle -Time 09:13 -Correct Patient Yes -Correct Side, Site, Position Yes -Correct Procedure Yes -Procedure Performed Yes -Type of Procedure Debridement -Clinical Debridement Subcutaneous -Post Debridement Size (cm) - Length 1.5 -Post Debridement Size (cm) - Width 2.5 -Post Debridement Size (cm) - Depth 0.1 -Total Square Cm 3.75 -Wound/Ulcer Outcome Not Healed -Ulcer Cleansing Rinsed/ Irrigated with Saline -Foul Odor after Cleansing No -Bioengineered Tissue No -Bleeding Controlled with Pressure -Offloading No -Treatment Response Procedure Tolerated Well #6 LLE -Time 09:13 -Correct Patient Yes -Correct Side, Site, Position Yes -Correct Procedure Yes -Procedure Performed Yes -Type of Procedure Debridement -Clinical Debridement Subcutaneous -Post Debridement Size (cm) - Length 8.5 -Post Debridement Size (cm) - Width 10.0 -Post Debridement Size (cm) - Depth 0.1 -Total Square Cm 85.00 -Wound/Ulcer Outcome Not Healed -Ulcer Cleansing Rinsed/ Irrigated with Saline -Foul Odor after Cleansing No -Bioengineered Tissue No -Bleeding Controlled with Pressure -Offloading No -Treatment Response Procedure Tolerated Well [See Physician Procedure note for Specifics] Pain Scale: 0-10 Numeric [Pain] -Is Patient Pain Free? Yes Musculoskeletal: No Muscle Wasting Neurological: Cranial nerves II-XII grossly intact Psych/Mental Status: Normal Affect Debridement Note Post-Debridement Measurements/Treatment WC - Nurse 2 - General Ulcer CM Notes Start: 12/10/18 09:30 Freq: Status: Active Protocol: Activity Type Activity Date Activity User E-Sign Co-Sign Detail Recorded Client Recorded Date Recorded By Document 12/10/18 09:50 MW [id number] 12/10/18 09:55 MW Document 12/17/18 12:07 MW [id number] 12/17/18 12:15 MW Document 12/24/18 09:24 AN [id number] 12/24/18 09:31 AN Document 12/31/18 09:13 MW [id number] 12/31/18 09:21 MW Document 01/06/19 09:13 MW [id number] 01/06/19 09:22 MW 12/10/18 12/17/18 12/24/18 09:50 12:07 09:24 Wound Center Nurse 2 #8 R medial ankle -Time -Correct Patient -Correct Side, Site, Position -Correct Procedure -Procedure Performed -Type of Procedure -Clinical Debridement -Post Debridement Size (cm) - Length -Post Debridement Size (cm) - Width -Post Debridement Size (cm) - Depth -Total Square Cm -Wound/Ulcer Outcome -Ulcer Cleansing -Foul Odor after Cleansing -Bioengineered Tissue -Bleeding Controlled with -Offloading -Treatment Response #7 right lateral leg cluster -Time 09:31 -Correct Patient Yes -Correct Side, Site, Position Yes -Correct Procedure Yes -Procedure Performed Yes -Type of Procedure Debridement -Clinical Debridement Subcutaneous -Post Debridement Size (cm) - Length 4 -Post Debridement Size (cm) - Width 7 -Post Debridement Size (cm) - Depth 0.1 -Total Square Cm 28 -Wound/Ulcer Outcome Not Healed -Ulcer Cleansing Rinsed/ Irrigated with Saline -Bleeding Controlled with Pressure -Treatment Response Procedure Tolerated Well #6 LLE -Time 12:10 09:25 -Correct Patient Yes Yes -Correct Side, Site, Position Yes Yes -Correct Procedure Yes Yes -Procedure Performed Yes Yes -Type of Procedure Debridement Debridement -Clinical Debridement Subcutaneous Subcutaneous -Post Debridement Size (cm) - Length 19.0 11.5 -Post Debridement Size (cm) - Width 14.0 8 -Post Debridement Size (cm) - Depth 0.1 0.1 -Total Square Cm 266.00 92.0 -Wound/Ulcer Outcome Not Healed Not Healed -Ulcer Cleansing Rinsed/ Rinsed/ Irrigated with Irrigated with Saline Saline -Foul Odor after Cleansing No -Bioengineered Tissue No -Bleeding Controlled with Pressure Pressure -Offloading No -Treatment Response Procedure Procedure Tolerated Well Tolerated Well #5 RIGHT DORSAL FOOT -Time 09:50 -Correct Patient Yes -Correct Side, Site, Position Yes -Correct Procedure Yes -Procedure Performed No -Wound/Ulcer Outcome Healed- Epithelialized #4 right lateral foot -Time 09:50 -Correct Patient Yes -Correct Side, Site, Position Yes -Correct Procedure Yes -Procedure Performed No -Wound/Ulcer Outcome Healed- Epithelialized #3- RLE CIRCUMFERENTIAL -Time 09:50 12:09 09:30 -Correct Patient Yes Yes -Correct Side, Site, Position Yes Yes -Correct Procedure Yes Yes -Procedure Performed Yes Yes -Type of Procedure Debridement Debridement -Clinical Debridement Subcutaneous Subcutaneous -Post Debridement Size (cm) - Length 14.0 13.5 -Post Debridement Size (cm) - Width 8.5 6.0 -Post Debridement Size (cm) - Depth 0.1 0.1 -Total Square Cm 119.00 81.00 -Wound/Ulcer Outcome Not Healed Not Healed -Ulcer Cleansing Rinsed/ Rinsed/ Irrigated with Irrigated with Saline Saline -Foul Odor after Cleansing No No -Bioengineered Tissue No No -Bleeding Controlled with Pressure Pressure -Offloading No No -Treatment Response Procedure Procedure Tolerated Well Tolerated Well Pain Scale: 0-10 Numeric Is Patient Pain Free? Yes Yes Yes 12/31/18 01/06/19 09:13 09:13 Wound Center Nurse 2 #8 R medial ankle -Time 09:13 09:13 -Correct Patient Yes Yes -Correct Side, Site, Position Yes Yes -Correct Procedure Yes Yes -Procedure Performed Yes Yes -Type of Procedure Debridement Debridement -Clinical Debridement Subcutaneous Subcutaneous -Post Debridement Size (cm) - Length 1.5 1.5 -Post Debridement Size (cm) - Width 2.5 2.5 -Post Debridement Size (cm) - Depth 0.1 0.1 -Total Square Cm 3.75 3.75 -Wound/Ulcer Outcome Not Healed Not Healed -Ulcer Cleansing Rinsed/ Rinsed/ Irrigated with Irrigated with Saline Saline -Foul Odor after Cleansing No No -Bioengineered Tissue No No -Bleeding Controlled with Pressure Pressure -Offloading No No -Treatment Response Procedure Procedure Tolerated Well Tolerated Well #7 right lateral leg cluster -Time 09:14 -Correct Patient Yes -Correct Side, Site, Position Yes -Correct Procedure Yes -Procedure Performed No -Type of Procedure -Clinical Debridement -Post Debridement Size (cm) - Length 0 -Post Debridement Size (cm) - Width 0 -Post Debridement Size (cm) - Depth 0 -Total Square Cm 0 -Wound/Ulcer Outcome Healed- Epithelialized -Ulcer Cleansing -Bleeding Controlled with -Treatment Response #6 LLE -Time 09:15 09:13 -Correct Patient Yes Yes -Correct Side, Site, Position Yes Yes -Correct Procedure Yes Yes -Procedure Performed Yes Yes -Type of Procedure Debridement Debridement -Clinical Debridement Subcutaneous Subcutaneous -Post Debridement Size (cm) - Length 13.0 8.5 -Post Debridement Size (cm) - Width 10.0 10.0 -Post Debridement Size (cm) - Depth 0.1 0.1 -Total Square Cm 130.00 85.00 -Wound/Ulcer Outcome Not Healed Not Healed -Ulcer Cleansing Rinsed/ Rinsed/ Irrigated with Irrigated with Saline Saline -Foul Odor after Cleansing No No -Bioengineered Tissue No No -Bleeding Controlled with Pressure Pressure -Offloading No No -Treatment Response Procedure Procedure Tolerated Well Tolerated Well #5 RIGHT DORSAL FOOT -Time -Correct Patient -Correct Side, Site, Position -Correct Procedure -Procedure Performed -Wound/Ulcer Outcome #4 right lateral foot -Time -Correct Patient -Correct Side, Site, Position -Correct Procedure -Procedure Performed -Wound/Ulcer Outcome #3- RLE CIRCUMFERENTIAL -Time -Correct Patient -Correct Side, Site, Position -Correct Procedure -Procedure Performed -Type of Procedure -Clinical Debridement -Post Debridement Size (cm) - Length -Post Debridement Size (cm) - Width -Post Debridement Size (cm) - Depth -Total Square Cm -Wound/Ulcer Outcome -Ulcer Cleansing -Foul Odor after Cleansing -Bioengineered Tissue -Bleeding Controlled with -Offloading -Treatment Response Pain Scale: 0-10 Numeric Is Patient Pain Free? Yes Yes Wound debrided: Right ankle Type of Debridement: Excisional debridement Anesthesia Used: 4% Lidocaine Solution Depth: Down to and including healthy tissue, in the subcutaneous layer Percentage of wound debrided: 100 Instrument Used: 3mm curette Tissue Removed: slough and devitalized tissue Severity: Fat Layer Exposed Amount of bleeding with debridement: Mild Bleeding Controlled with: Pressure Patient tolerated procedure well - Additional Wound Wound debrided: Left lower extremity ( Cluster ) Type of Debridement: Excisional debridement Anesthesia Used: 4% Lidocaine Solution Depth: Down to and including healthy tissue, in the subcutaneous layer Percentage of wound debrided: 100 Instrument Used: 3mm curette Tissue Removed: Slough and devitalized Severity: Fat Layer Exposed Amount of bleeding with debridement: Mild Bleeding Controlled with: Pressure Patient tolerated procedure: Patient tolerated procedure well Assessment/Plan Active Problems (Last Reviewed 08/17/18 @ 15:02 by Benita Hong) Ulcer of left lower extremity with fat layer exposed (Chronic) Lymphedema of both lower extremities (Chronic) Ulcer of right lower extremity with fat layer exposed (Chronic) Type 2 diabetes mellitus (Chronic) Assessment: Same as above. Plan: Debridement done as documented above, procedure was well-tolerated. Continue Aquacel extra with ABD over top to all ulcers left lower extremity. Pomogram with adaptic to right ankle. 3M wraps for edema management. Change on Friday and Friday by home health. Patient unable to care for himself at home and he lives alone. Strongly advised to elevate his lower extremity when seated in bed. Continue Lymphedema pump. Compliance encouraged. He is benefitting from it. All his questions were answered and he was advised to call with any further questions or concerns. Follow-up in 2 weeks. This note was generated with [employer] dictation software. It may contain incorrect words, spelling, and punctuation that were not noted in checking the note before signing.
== END 2019-01-09 23:59 ==
LOC: WC 08:30
PROVIDERS: Family Provider Family Medicine; PCP Family Medicine; Visit Provider Internal Medicine
DX: E11.622 Type 2 diabetes mellitus with other skin ulcer (principal); E78.5 Hyperlipidemia, unspecified; I89.0 Lymphedema, not elsewhere classified; L97.822 Non-pressure chronic ulcer of other part of left lower leg with fat layer exposed; L97.812 Non-pressure chronic ulcer of other part of right lower leg with fat layer exposed; L97.312 Non-pressure chronic ulcer of right ankle with fat layer exposed
CPT/HCPCS: 11042; 11045; 29581

== ENCOUNTER 2019-02-03 09:00 | Outpatient (RCR) | payer MEDICARE, OTHER, SELFPAY ==
[2019-01-10 00:43] VITALS: BP 147/81; PULSE 77; RESP 18; TEMP 36.6
[2019-01-21 09:03] VITALS: BP 143/71; PULSE 85; RESP 18; TEMP 36.6; BMI 45.9
--- NOTE | 2019-01-21 09:37 | PCM.WC.PN ---
(1) Cellulitis of left lower extremity Status: Acute Current Visit: Yes Code(s): L03.116 - Cellulitis of left lower limb (2) Lymphedema of both lower extremities Status: Chronic Current Visit: Yes Code(s): I89.0 - Lymphedema, not elsewhere classified (3) Ulcer of left lower extremity with fat layer exposed Status: Chronic Current Visit: Yes Code(s): L97.922 - Non-pressure chronic ulcer of unspecified part of left lower leg with fat layer exposed Type of Wound Date of Service: 01/21/19 Chief Complaint: Right lower extremity ulcer. History of Wound: Mr. Russell is a 68yo who was last seen here about a month ago for left lower extremity ulcer and now presents with right lower extremity ulcer. He states that he noted this 3 days ago. Denies any nonprescription factors however has noted worsening right lower extremity swelling as well. Also reports pain. He denies chills, fever otherwise feeling of unwell. Admits to clear, copious drainage. Progress of Wound: Right lower extremity is healed. Left with concern for cellulitis. - Physical Exam Vital Signs Temp Pulse Resp BP 98 F 85 18 143/71 H 01/21/19 09:03 01/21/19 09:03 01/21/19 09:03 01/21/19 09:03 General: Alert, Oriented x3, Cooperative, No apparent distress HEENT: Atraumatic, Normocephalic Oral: Moist Mucosa Neck: Supple Lungs: Normal air movement Abdomen: Non Tender, Obese Extremities: No cyanosis, Edema Skin: Ulcer/ Wound Wound Measurements and Assessment WC - Nurse 1 - General Ulcer Measurement Start: 01/21/19 09:03 Freq: Status: Active Protocol: Activity Type Activity Date Activity User E-Sign Co-Sign Detail Recorded Client Recorded Date Recorded By Document 01/21/19 09:03 RB [id number] 01/21/19 09:19 RB 01/21/19 09:03 Wound Center Nurse 1 [Ulcer Assessment] #8 R medial ankle -Combined with other wound No -Current Size (cm) - Length 0.1 -Current Size (cm) - Width 0.1 -Current Size (cm) - Depth 0.1 -Total Square Cm 0.01 -Tunneling No -Undermining/Tunneling No -Circular Undermining No -Exudate Amt Small -Exudate Type Serosanguineous -Wound Margin Distinct, Outline Attached -Granulation Amt Large (67-100%) -Granulation Quality [place] -Slough/Fibrin Yes -Necrosis Amt Small (1-33%) -Necrotic Tissue Type Adherent Slough -Structure Exposed N/A -Texture (Jaylyn-wound Skin Appearance) Assessed -Moisture (Jaylyn-wound Skin Appearance Assessed ) -Color (Jaylyn-wound Skin Appearance) Assessed -Temperature (Jaylyn-wound Skin No Abnormality Appearance) (Pt Warm) -Tenderness on Palpation (Jaylyn-wound No Skin Appearance) -Ulcer Cleansing Wound Cleanser -Foul Odor after Cleansing No #6 LLE -Combined with other wound No -Current Size (cm) - Length 30 -Current Size (cm) - Width 43 -Current Size (cm) - Depth 0.1 -Total Square Cm 1290 -Tunneling No -Undermining/Tunneling No -Circular Undermining No -Exudate Amt Large -Exudate Type Serosanguineous -Wound Margin Flat & Intact -Granulation Amt Large (67-100%) -Granulation Quality [place] -Slough/Fibrin Yes -Necrosis Amt Small (1-33%) -Necrotic Tissue Type Adherent Slough -Structure Exposed N/A -Texture (Jaylyn-wound Skin Appearance) Assessed, Localized Edema -Moisture (Jaylyn-wound Skin Appearance Assessed ) -Color (Jaylyn-wound Skin Appearance) Erythema -Temperature (Jaylyn-wound Skin No Abnormality Appearance) (Pt Warm) -Tenderness on Palpation (Jaylyn-wound No Skin Appearance) -Ulcer Cleansing Rinsed/ Irrigated with Saline -Foul Odor after Cleansing No -Anesthetic Used 4% Lidocaine Solution,5% Lidocaine Gel #3- RLE CIRCUMFERENTIAL -Combined with other wound No -Current Size (cm) - Length 0 -Current Size (cm) - Width 0 -Current Size (cm) - Depth 0 -Total Square Cm 0 -Epithelialization Large 67-100% [Edema Assessment] -Right Calf (cm) 42 -Right Ankle (cm) 30.7 -Left Calf (cm) 46 -Left Ankle (cm) 33.5 WC - Nurse 2 - General Ulcer CM Notes Start: 01/21/19 09:03 Freq: Status: Active Protocol: Activity Type Activity Date Activity User E-Sign Co-Sign Detail Recorded Client Recorded Date Recorded By Document 01/21/19 09:30 MW [id number] 01/21/19 09:35 MW 01/21/19 09:30 Wound Center Nurse 2 [Procedure/Treatment] #8 R medial ankle -Time 09:34 -Correct Patient Yes -Correct Side, Site, Position Yes -Correct Procedure Yes -Procedure Performed No -Post Debridement Size (cm) - Length 0 -Post Debridement Size (cm) - Width 0 -Post Debridement Size (cm) - Depth 0 -Total Square Cm 0 -Wound/Ulcer Outcome Healed- Epithelialized #6 LLE -Time 09:30 -Correct Patient Yes -Correct Side, Site, Position Yes -Correct Procedure Yes -Procedure Performed Yes -Type of Procedure Debridement -Clinical Debridement Subcutaneous -Post Debridement Size (cm) - Length 27.0 -Post Debridement Size (cm) - Width 39.0 -Post Debridement Size (cm) - Depth 0.1 -Total Square Cm 1053.00 -Wound/Ulcer Outcome Not Healed -Ulcer Cleansing Rinsed/ Irrigated with Saline -Foul Odor after Cleansing No -Bioengineered Tissue No -Bleeding Controlled with Pressure -Offloading No -Treatment Response Procedure Tolerated Well #3- RLE CIRCUMFERENTIAL -Time 09:32 -Correct Patient Yes -Correct Side, Site, Position Yes -Correct Procedure Yes -Procedure Performed No -Post Debridement Size (cm) - Length 0 -Post Debridement Size (cm) - Width 0 -Post Debridement Size (cm) - Depth 0 -Total Square Cm 0 -Wound/Ulcer Outcome Healed- Epithelialized [See Physician Procedure note for Specifics] Pain Scale: 0-10 Numeric [Pain] -Is Patient Pain Free? Yes Musculoskeletal: No Muscle Wasting Neurological: Cranial nerves II-XII grossly intact Psych/Mental Status: Normal Affect Debridement Note Post-Debridement Measurements/Treatment WC - Nurse 2 - General Ulcer CM Notes Start: 01/21/19 09:03 Freq: Status: Active Protocol: Activity Type Activity Date Activity User E-Sign Co-Sign Detail Recorded Client Recorded Date Recorded By Document 01/21/19 09:30 MW [id number] 01/21/19 09:35 MW 01/21/19 09:30 Wound Center Nurse 2 #8 R medial ankle -Time 09:34 -Correct Patient Yes -Correct Side, Site, Position Yes -Correct Procedure Yes -Procedure Performed No -Post Debridement Size (cm) - Length 0 -Post Debridement Size (cm) - Width 0 -Post Debridement Size (cm) - Depth 0 -Total Square Cm 0 -Wound/Ulcer Outcome Healed- Epithelialized #6 LLE -Time 09:30 -Correct Patient Yes -Correct Side, Site, Position Yes -Correct Procedure Yes -Procedure Performed Yes -Type of Procedure Debridement -Clinical Debridement Subcutaneous -Post Debridement Size (cm) - Length 27.0 -Post Debridement Size (cm) - Width 39.0 -Post Debridement Size (cm) - Depth 0.1 -Total Square Cm 1053.00 -Wound/Ulcer Outcome Not Healed -Ulcer Cleansing Rinsed/ Irrigated with Saline -Foul Odor after Cleansing No -Bioengineered Tissue No -Bleeding Controlled with Pressure -Offloading No -Treatment Response Procedure Tolerated Well #3- RLE CIRCUMFERENTIAL -Time 09:32 -Correct Patient Yes -Correct Side, Site, Position Yes -Correct Procedure Yes -Procedure Performed No -Post Debridement Size (cm) - Length 0 -Post Debridement Size (cm) - Width 0 -Post Debridement Size (cm) - Depth 0 -Total Square Cm 0 -Wound/Ulcer Outcome Healed- Epithelialized Pain Scale: 0-10 Numeric Is Patient Pain Free? Yes Wound debrided: Left lower extremity Type of Debridement: Selective debridement Anesthesia Used: 4% Lidocaine Solution Depth: Down to and including healthy tissue Percentage of wound debrided: 100 Instrument Used: 7mm curette Tissue Removed: Slough and de Severity: Fat Layer Exposed Amount of bleeding with debridement: Mild Bleeding Controlled with: Pressure Patient tolerated procedure well Assessment/Plan Active Problems (Last Reviewed 08/17/18 @ 15:02 by Benita Hong) Ulcer of left lower extremity with fat layer exposed (Chronic) Lymphedema of both lower extremities (Chronic) Cellulitis of left lower extremity (Acute) Assessment: Same as above. Plan: Increased erythema, drainage, swelling and tenderness of left leg and foot. Debridement done as documented above, procedure was well-tolerated. Switch to Xeroform with ABD to left lower extremity. PHUC wraps for edema management. Circaid to the right lower extremity. Right lower extremity ulcer is healed. Prescription for Keflex and Doxycyline given for cellulitis. Pharmacy to run drug/ drug interaction. NKDA. Strongly advised to elevate his lower extremity when seated and in bed. Continue Lymphedema pump as tolerated. . Compliance encouraged. He is benefitting from it. All his questions were answered and he was advised to call with any further questions or concerns. Follow-up in 1 week. This note was generated with [employer] software. It may contain incorrect words, spelling, and punctuation that were not noted in checking the note before signing.
[2019-01-27 10:10] VITALS: BP 134/76; PULSE 78; RESP 18; TEMP 35.7; BMI 45.9
--- NOTE | 2019-01-27 10:44 | PCM.WC.PN ---
(1) Cellulitis of left lower extremity Status: Acute Current Visit: Yes Code(s): L03.116 - Cellulitis of left lower limb (2) Lymphedema of both lower extremities Status: Chronic Current Visit: Yes Code(s): I89.0 - Lymphedema, not elsewhere classified (3) Ulcer of left lower extremity with fat layer exposed Status: Chronic Current Visit: Yes Code(s): L97.922 - Non-pressure chronic ulcer of unspecified part of left lower leg with fat layer exposed Type of Wound Date of Service: 01/27/19 Chief Complaint: Right lower extremity ulcer. History of Wound: Mr. Russell is a 68yo who was last seen here about a month ago for left lower extremity ulcer and now presents with right lower extremity ulcer. He states that he noted this 3 days ago. Denies any nonprescription factors however has noted worsening right lower extremity swelling as well. Also reports pain. He denies chills, fever otherwise feeling of unwell. Admits to clear, copious drainage. Progress of Wound: Left Leg Cellulitis with significant improvement. Minimal superficial areas of ulceration. - Physical Exam Vital Signs Temp Pulse Resp BP 96.2 F L 78 18 134/76 H 01/27/19 10:10 01/27/19 10:10 01/27/19 10:10 01/27/19 10:10 General: Alert, Oriented x3, Cooperative, No apparent distress HEENT: Atraumatic, Normocephalic Oral: Moist Mucosa Neck: Supple Lungs: Normal air movement Abdomen: Non Tender, Obese Extremities: No cyanosis, Edema Skin: Ulcer/ Wound Wound Measurements and Assessment WC - Nurse 1 - General Ulcer Measurement Start: 01/21/19 09:03 Freq: Status: Active Protocol: Activity Type Activity Date Activity User E-Sign Co-Sign Detail Recorded Client Recorded Date Recorded By Document 01/27/19 10:10 [id number] 01/27/19 10:18 RB 01/27/19 10:10 Wound Center Nurse 1 [Ulcer Assessment] #6 LLE -Combined with other wound No -Current Size (cm) - Length 0.1 -Current Size (cm) - Width 0.1 -Current Size (cm) - Depth 0.1 -Total Square Cm 0.01 -Tunneling No -Undermining/Tunneling No -Circular Undermining No -Exudate Amt None Present -Wound Margin Flat & Intact -Granulation Amt Small (1-33%) -Granulation Quality [address] -Slough/Fibrin Yes -Necrosis Amt Medium (34-66%) -Necrotic Tissue Type Adherent Slough -Structure Exposed N/A -Texture (Jaylyn-wound Skin Appearance) Excoriation -Moisture (Jaylyn-wound Skin Appearance Dry/Scaly ) -Color (Jaylyn-wound Skin Appearance) Assessed -Temperature (Jaylyn-wound Skin No Abnormality Appearance) (Pt Warm) -Tenderness on Palpation (Jaylyn-wound No Skin Appearance) -Ulcer Cleansing Wound Cleanser -Foul Odor after Cleansing No -Anesthetic Used 4% Lidocaine Solution [Edema Assessment] -Lower Limb Edema Present Yes -Right Calf (cm) 44 -Right Ankle (cm) 30 -Left Calf (cm) 45.6 -Left Ankle (cm) 31 WC - Nurse 2 - General Ulcer CM Notes Start: 01/21/19 09:03 Freq: Status: Active Protocol: Activity Type Activity Date Activity User E-Sign Co-Sign Detail Recorded Client Recorded Date Recorded By Document 01/27/19 10:29 MW [id number] 01/27/19 10:35 MW 01/27/19 10:29 Wound Center Nurse 2 [Procedure/Treatment] #6 LLE -Time 10:30 -Correct Patient Yes -Correct Side, Site, Position Yes -Correct Procedure Yes -Procedure Performed Yes -Type of Procedure Debridement -Clinical Debridement Subcutaneous -Post Debridement Size (cm) - Length 17.0 -Post Debridement Size (cm) - Width 18.0 -Post Debridement Size (cm) - Depth 0.1 -Total Square Cm 306.00 -Wound/Ulcer Outcome Not Healed -Ulcer Cleansing Rinsed/ Irrigated with Saline -Foul Odor after Cleansing No -Bioengineered Tissue No -Bleeding Controlled with Pressure -Offloading No -Treatment Response Procedure Tolerated Well [See Physician Procedure note for Specifics] Pain Scale: 0-10 Numeric [Pain] -Is Patient Pain Free? Yes Musculoskeletal: No Muscle Wasting Neurological: Cranial nerves II-XII grossly intact Psych/Mental Status: Normal Affect Debridement Note Post-Debridement Measurements/Treatment WC - Nurse 2 - General Ulcer CM Notes Start: 01/21/19 09:03 Freq: Status: Active Protocol: Activity Type Activity Date Activity User E-Sign Co-Sign Detail Recorded Client Recorded Date Recorded By Document 01/21/19 09:30 MW [id number] 01/21/19 09:35 MW Document 01/27/19 10:29 MW [id number] 01/27/19 10:35 MW 01/21/19 01/27/19 09:30 10:29 Wound Center Nurse 2 #8 R medial ankle -Time 09:34 -Correct Patient Yes -Correct Side, Site, Position Yes -Correct Procedure Yes -Procedure Performed No -Post Debridement Size (cm) - Length 0 -Post Debridement Size (cm) - Width 0 -Post Debridement Size (cm) - Depth 0 -Total Square Cm 0 -Wound/Ulcer Outcome Healed- Epithelialized #6 LLE -Time 09:30 10:30 -Correct Patient Yes Yes -Correct Side, Site, Position Yes Yes -Correct Procedure Yes Yes -Procedure Performed Yes Yes -Type of Procedure Debridement Debridement -Clinical Debridement Subcutaneous Subcutaneous -Post Debridement Size (cm) - Length 27.0 17.0 -Post Debridement Size (cm) - Width 39.0 18.0 -Post Debridement Size (cm) - Depth 0.1 0.1 -Total Square Cm 1053.00 306.00 -Wound/Ulcer Outcome Not Healed Not Healed -Ulcer Cleansing Rinsed/ Rinsed/ Irrigated with Irrigated with Saline Saline -Foul Odor after Cleansing No No -Bioengineered Tissue No No -Bleeding Controlled with Pressure Pressure -Offloading No No -Treatment Response Procedure Procedure Tolerated Well Tolerated Well #3- RLE CIRCUMFERENTIAL -Time 09:32 -Correct Patient Yes -Correct Side, Site, Position Yes -Correct Procedure Yes -Procedure Performed No -Post Debridement Size (cm) - Length 0 -Post Debridement Size (cm) - Width 0 -Post Debridement Size (cm) - Depth 0 -Total Square Cm 0 -Wound/Ulcer Outcome Healed- Epithelialized Pain Scale: 0-10 Numeric Is Patient Pain Free? Yes Yes Wound debrided: Left Lower Extremity Type of Debridement: Selective debridement Anesthesia Used: 4% Lidocaine Solution Depth: Down to and including healthy tissue Instrument Used: 3mm curette Tissue Removed: Devitalized tissue Severity: Limited To Skin Breakdown Amount of bleeding with debridement: Mild Bleeding Controlled with: Pressure Patient tolerated procedure well Assessment/Plan Active Problems (Last Reviewed 08/17/18 @ 15:02 by Benita Hong) Ulcer of left lower extremity with fat layer exposed (Chronic) Lymphedema of both lower extremities (Chronic) Cellulitis of left lower extremity (Acute) Assessment: Same as above. Plan: Debridement done as documented above, procedure was well-tolerated. Continue Xeroform to left lower extremity. Bilateral 3M wraps to both. Right lower extremity ulcer is healed. Strongly advised to elevate his lower extremity when seated and in bed. Continue Lymphedema pump as tolerated. . Compliance encouraged. He is benefitting from it. All his questions were answered and he was advised to call with any further questions or concerns. Follow-up in 1 week. This note was generated with [employer] dictation software. It may contain incorrect words, spelling, and punctuation that were not noted in checking the note before signing.
[2019-02-03 09:08] VITALS: BP 130/76; PULSE 84; RESP 20; TEMP 37.3; BMI 45.9
--- NOTE | 2019-02-03 09:29 | PN.PCM_ITS ---
(1) Cellulitis of left lower extremity Status: Acute Current Visit: Yes Code(s): L03.116 - Cellulitis of left lower limb (2) Lymphedema of both lower extremities Status: Chronic Current Visit: Yes Code(s): I89.0 - Lymphedema, not elsewhere classified (3) Ulcer of left lower extremity with fat layer exposed Status: Chronic Current Visit: Yes Code(s): L97.922 - Non-pressure chronic ulcer of unspecified part of left lower leg with fat layer exposed Type of Wound Date of Service: 02/03/19 Chief Complaint: Right lower extremity ulcer. History of Wound: Mr. Russell is a 68yo who was last seen here about a month ago for left lower extremity ulcer and now presents with right lower extremity ulcer. He states that he noted this 3 days ago. Denies any nonprescription factors however has noted worsening right lower extremity swelling as well. Also reports pain. He denies chills, fever otherwise feeling of unwell. Admits to clear, copious drainage. Progress of Wound: Healed. No new cocnerns at this time. - Physical Exam Vital Signs Temp Pulse Resp BP 99.1 F 84 20 H 130/76 H 02/03/19 09:08 02/03/19 09:08 02/03/19 09:08 02/03/19 09:08 General: Alert, Oriented x3, Cooperative, No apparent distress HEENT: Atraumatic, Normocephalic Oral: Moist Mucosa Neck: Supple Lungs: Normal air movement Abdomen: Non Tender, Obese Extremities: No cyanosis, Edema Skin: Ulcer/ Wound Wound Measurements and Assessment WC - Nurse 1 - General Ulcer Measurement Start: 01/21/19 09:03 Freq: Status: Active Protocol: Activity Type Activity Date Activity User E-Sign Co-Sign Detail Recorded Client Recorded Date Recorded By Document 02/03/19 09:08 MW [id number] 02/03/19 09:09 MW 02/03/19 09:08 Wound Center Nurse 1 [Ulcer Assessment] #6 LLE -Combined with other wound No -Current Size (cm) - Length 0.1 -Current Size (cm) - Width 0.1 -Current Size (cm) - Depth 0.1 -Total Square Cm 0.01 [Edema Assessment] -Lower Limb Edema Present Yes -Right Calf (cm) 41.5 -Right Ankle (cm) 30.5 -Left Calf (cm) 46.2 -Point of Measurement (cm from the 35.5 medial instep) - Nurse 2 - General Ulcer CM Notes Start: 01/21/19 09:03 Freq: Status: Active Protocol: Activity Type Activity Date Activity User E-Sign Co-Sign Detail Recorded Client Recorded Date Recorded By Document 02/03/19 09:15 MW [id number] 02/03/19 09:16 MW 02/03/19 09:15 Wound Center Nurse 2 [Procedure/Treatment] #6 LLE -Time 09:15 -Correct Patient Yes -Correct Side, Site, Position Yes -Correct Procedure Yes -Procedure Performed No -Post Debridement Size (cm) - Length 0 -Post Debridement Size (cm) - Width 0 -Post Debridement Size (cm) - Depth 0 -Total Square Cm 0 -Wound/Ulcer Outcome Healed- Epithelialized [See Physician Procedure note for Specifics] Pain Scale: 0-10 Numeric [Pain] -Is Patient Pain Free? Yes Musculoskeletal: No Muscle Wasting Neurological: Cranial nerves II-XII grossly intact Psych/Mental Status: Normal Affect Debridement Note Post-Debridement Measurements/Treatment - Nurse 2 - General Ulcer CM Notes Start: 01/21/19 09:03 Freq: Status: Active Protocol: Activity Type Activity Date Activity User E-Sign Co-Sign Detail Recorded Client Recorded Date Recorded By Document 01/21/19 09:30 MW [id number] 01/21/19 09:35 MW Document 01/27/19 10:29 MW [id number] 01/27/19 10:35 MW Document 02/03/19 09:15 MW [id number] 02/03/19 09:16 MW 01/21/19 01/27/19 02/03/19 09:30 10:29 09:15 Wound Center Nurse 2 #8 R medial ankle -Time 09:34 -Correct Patient Yes -Correct Side, Site, Position Yes -Correct Procedure Yes -Procedure Performed No -Post Debridement Size (cm) - Length 0 -Post Debridement Size (cm) - Width 0 -Post Debridement Size (cm) - Depth 0 -Total Square Cm 0 -Wound/Ulcer Outcome Healed- Epithelialized #6 LLE -Time 09:30 10:30 09:15 -Correct Patient Yes Yes Yes -Correct Side, Site, Position Yes Yes Yes -Correct Procedure Yes Yes Yes -Procedure Performed Yes Yes No -Type of Procedure Debridement Debridement -Clinical Debridement Subcutaneous Subcutaneous -Post Debridement Size (cm) - Length 27.0 17.0 0 -Post Debridement Size (cm) - Width 39.0 2.0 0 -Post Debridement Size (cm) - Depth 0.1 0.1 0 -Total Square Cm 1053.00 34.00 0 -Wound/Ulcer Outcome Not Healed Not Healed Healed- Epithelialized -Ulcer Cleansing Rinsed/ Rinsed/ Irrigated with Irrigated with Saline Saline -Foul Odor after Cleansing No No -Bioengineered Tissue No No -Bleeding Controlled with Pressure Pressure -Offloading No No -Treatment Response Procedure Procedure Tolerated Well Tolerated Well #3- RLE CIRCUMFERENTIAL -Time 09:32 -Correct Patient Yes -Correct Side, Site, Position Yes -Correct Procedure Yes -Procedure Performed No -Post Debridement Size (cm) - Length 0 -Post Debridement Size (cm) - Width 0 -Post Debridement Size (cm) - Depth 0 -Total Square Cm 0 -Wound/Ulcer Outcome Healed- Epithelialized Pain Scale: 0-10 Numeric Is Patient Pain Free? Yes Yes Yes No debridement was completed today Assessment/Plan Active Problems (Last Reviewed 08/17/18 @ 15:02 by Benita Hong) Ulcer of left lower extremity with fat layer exposed (Chronic) Lymphedema of both lower extremities (Chronic) Cellulitis of left lower extremity (Acute) Assessment: Same as above. Plan: Healed. No new cocnerns at this time. Continue Circaids. Strongly advised to elevate his lower extremity when seated and in bed. Continue Lymphedema pump as tolerated. . Compliance encouraged. He is benefitting from it. All his questions were answered and he was advised to call with any further questions or concerns. Discharged from the wound center. This note was generated with [employer] software. It may contain incorrect words, spelling, and punctuation that were not noted in checking the note before signing.
== END 2019-02-08 23:59 ==
LOC: WC 09:00
PROVIDERS: Family Provider Family Medicine; PCP Family Medicine; Visit Provider Internal Medicine
DX: E11.622 Type 2 diabetes mellitus with other skin ulcer (principal); E78.5 Hyperlipidemia, unspecified; L97.822 Non-pressure chronic ulcer of other part of left lower leg with fat layer exposed; I89.0 Lymphedema, not elsewhere classified
CPT/HCPCS: 29581; 97597; 97598; 99213; G0463

== ENCOUNTER 2019-04-01 10:45 | Outpatient (RCR) | payer MEDICARE, OTHER, SELFPAY ==
[2019-03-25 10:44] VITALS: BP 148/77; PULSE 75; RESP 16; TEMP 36.4; BMI 44.9
--- NOTE | 2019-03-25 13:50 | PCM.WC.HP ---
(1) Cellulitis of left lower extremity Status: Acute Current Visit: Yes Code(s): L03.116 - Cellulitis of left lower limb (2) Lymphedema of both lower extremities Status: Chronic Current Visit: Yes Code(s): I89.0 - Lymphedema, not elsewhere classified (3) Ulcer of left lower extremity with fat layer exposed Status: Acute Current Visit: Yes Code(s): L97.922 - Non-pressure chronic ulcer of unspecified part of left lower leg with fat layer exposed History of Present Illness Date of Service: 03/25/19 Chief Complaint: Left lower extremity ulcer. History of Wound: Mr. Russell is a 69yo well-known to the wound center who presents due to new left lower extremity ulcer. Presented to the emergency room due to concern for cellulitis on Friday. He was diagnosed with cellulitis and per patient he was given a day of IV antibiotics and discharged on Keflex. Pain, redness and drainage have improved. He subsequently followed up here for ulcer care/management. He denies chills, fever or otherwise feeling of unwell. Past Medical History Past Medical History: Chronic Problems (Last Reviewed 08/17/18 @ 15:02 by Benita Hong) Lymphedema of both lower extremities (Chronic) Ulcer of right lower extremity with fat layer exposed (Chronic) Cardiac murmur (Chronic) Stage 2 chronic kidney disease (Chronic) Essential hypertension (Chronic) Type 2 diabetes mellitus (Chronic) Iron deficiency anemia (Chronic) Hyperlipidemia (Chronic) Surgical History: no surgical history Allergies/Adverse Reactions: Allergies No Known Allergies Allergy (Verified 08/17/18 15:00) Home Medications: Ambulatory Orders Medication Instructions Recorded Ascorbic Acid [Vitamin C] 500 mg PO DAILY@0800 03/08/17 Carvedilol [Coreg ([address])] 6.25 mg PO BID 03/08/17 Enalapril Maleate 10 mg PO QHS 03/08/17 Furosemide [Lasix] 40 mg PO DAILY 03/08/17 Hydrocodone/Acetaminophen 1 - 2 ea PO Q4H PRN PRN 03/08/17 [Hydrocodone-Acetamin 5-325 mg] Magnesium 500 mg PO QHS 03/08/17 Multivitamin [Daily Multiple 1 ea PO DAILY 03/08/17 Vitamin] Simvastatin 40 mg PO QHS 03/08/17 traMADol [Ultram] 50 mg PO Q4H PRN PRN 03/08/17 Febuxostat [Uloric] 40 mg PO DAILY 05/06/17 potassium chloride ER 10 mEq 20 meq PO QDAY tab 08/28/17 tablet,extended release(part/cryst) - Family History Maternal Family History: Family History (Last Reviewed 08/17/18 @ 15:02 by Benita Hong) Mother Cancer Father Hypertension Cancer Paternal Family History: Family History (Last Reviewed 08/17/18 @ 15:02 by Benita Hong) Mother Cancer Father Hypertension - - Head trauma. Smoking Status: Never smoker Review of Systems Constitutional: Denies: Anorexia, Chills, Fever Eyes: Denies: Blurred vision, Pain, Redness HEENT: Denies: Difficulty Hearing, Difficulty Swallowing Cardiovascular: Denies: Chest Pain, Chest Pressure Respiratory: Denies: Cough Gastrointestinal: Denies: Abdominal Pain, Hematemesis, Vomiting Skin: Denies: Jaundice - Physical Exam Vital Signs Temp Pulse Resp BP 97.5 F L 75 16 148/77 H 03/25/19 10:44 03/25/19 10:44 03/25/19 10:44 03/25/19 10:44 General: Alert, Oriented x3, Cooperative, No apparent distress HEENT: Atraumatic, Normocephalic Oral: Moist Mucosa Neck: Supple Lungs: Normal air movement Cardiovascular: Regular rate, Regular Rhythm, Normal S1, Normal S2, Murmur Abdomen: Non Tender, Obese Extremities: No cyanosis, Edema Skin: Ulcer/ Wound Wound Measurements and Assessment WC - Nurse 1 - General Ulcer Measurement Start: 03/25/19 10:44 Freq: Status: Active Protocol: Activity Type Activity Date Activity User E-Sign Co-Sign Detail Recorded Client Recorded Date Recorded By Document 03/25/19 10:44 [facility] [id number] 03/25/19 10:59 [facility] 03/25/19 10:44 Wound Center Nurse 1 [Ulcer Assessment] #9- L LAT LE/FOOT -Combined with other wound No -Current Size (cm) - Length 32 -Current Size (cm) - Width 12.5 -Current Size (cm) - Depth 0.1 -Total Square Cm 400.0 -Date of Last Picture (Recall this 03/25/19 field) -Photo Taken Yes -Epithelialization None Present -Tunneling No -Undermining/Tunneling No -Circular Undermining No -Exudate Amt Small -Exudate Type Serous -Wound Margin Flat & Intact -Granulation Amt Large (67-100%) -Granulation Quality [place] -Slough/Fibrin Yes -Necrosis Amt Small (1-33%) -Necrotic Tissue Type Adherent Slough -Texture (Jaylyn-wound Skin Appearance) Assessed, Excoriation, Scarring -Moisture (Jaylyn-wound Skin Appearance Assessed ) -Color (Jaylyn-wound Skin Appearance) Assessed, Erythema -Temperature (Jaylyn-wound Skin No Abnormality Appearance) (Pt Warm) -Tenderness on Palpation (Jaylyn-wound Yes Skin Appearance) -Ulcer Cleansing SOAPY WATER -Foul Odor after Cleansing No -Anesthetic Used 4% Lidocaine Solution [Edema Assessment] -Lower Limb Edema Present Yes -Right Calf (cm) 45.5 -Right Ankle (cm) 31.4 -Left Calf (cm) 50 -Left Ankle (cm) 33.1 WC - Nurse 2 - General Ulcer CM Notes Start: 03/25/19 10:44 Freq: Status: Active Protocol: Activity Type Activity Date Activity User E-Sign Co-Sign Detail Recorded Client Recorded Date Recorded By Document 03/25/19 11:11 MW [id number] 03/25/19 11:15 MW 03/25/19 11:11 Wound Center Nurse 2 [Procedure/Treatment] #9- L LAT LE/FOOT -Time 11:12 -Correct Patient Yes -Correct Side, Site, Position Yes -Correct Procedure Yes -Procedure Performed Yes -Type of Procedure Debridement -Clinical Debridement Subcutaneous -Post Debridement Size (cm) - Length 15.0 -Post Debridement Size (cm) - Width 11.0 -Post Debridement Size (cm) - Depth 0.1 -Total Square Cm 165.00 -Wound/Ulcer Outcome Not Healed -Ulcer Cleansing Rinsed/ Irrigated with Saline -Foul Odor after Cleansing No -Bioengineered Tissue No -Bleeding Controlled with Pressure -Offloading No -Treatment Response Procedure Tolerated Well [See Physician Procedure note for Specifics] Pain Scale: 0-10 Numeric [Pain] -Is Patient Pain Free? Yes Musculoskeletal: No Muscle Wasting Neurological: Cranial nerves II-XII grossly intact Psych/Mental Status: Normal Affect Debridement Note Post-Debridement Measurements/Treatment WC - Nurse 2 - General Ulcer CM Notes Start: 03/25/19 10:44 Freq: Status: Active Protocol: Activity Type Activity Date Activity User E-Sign Co-Sign Detail Recorded Client Recorded Date Recorded By Document 03/25/19 11:11 MW [id number] 03/25/19 11:15 MW 03/25/19 11:11 Wound Center Nurse 2 #9- L LAT LE/FOOT -Time 11:12 -Correct Patient Yes -Correct Side, Site, Position Yes -Correct Procedure Yes -Procedure Performed Yes -Type of Procedure Debridement -Clinical Debridement Subcutaneous -Post Debridement Size (cm) - Length 15.0 -Post Debridement Size (cm) - Width 11.0 -Post Debridement Size (cm) - Depth 0.1 -Total Square Cm 165.00 -Wound/Ulcer Outcome Not Healed -Ulcer Cleansing Rinsed/ Irrigated with Saline -Foul Odor after Cleansing No -Bioengineered Tissue No -Bleeding Controlled with Pressure -Offloading No -Treatment Response Procedure Tolerated Well Pain Scale: 0-10 Numeric Is Patient Pain Free? Yes Wound debrided: Left lower extremity cluster Type of Debridement: Excisional debridement Anesthesia Used: 4% Lidocaine Solution Depth: Down to and including healthy tissue, in the subcutaneous layer Percentage of wound debrided: 100 Instrument Used: 7mm curette Tissue Removed: Slough and devitalized tissue Severity: Fat Layer Exposed Amount of bleeding with debridement: Mild Bleeding Controlled with: Pressure Patient tolerated procedure well Assessment/Plan Active Problems (Last Reviewed 08/17/18 @ 15:02 by Benita Hong) Ulcer of left lower extremity with fat layer exposed (Acute) Lymphedema of both lower extremities (Chronic) Cellulitis of left lower extremity (Acute) Assessment: Same as above. Plan: Debridement done as documented above, procedure was well-tolerated. Xeroform on the left lower extremity ulcerated areas with ABD over top. Bilateral 3M wrap for edema management. Change on Friday and Friday by home health nurse (Patient is unable to care for his wounds by himself. He has used home health in the past.). Continue use of lymphedema pump. Compliance encouraged. Continue leg elevation, increase protein intake, exercise as tolerated and avoid idle standing. His questions were answered and he was advised to call with any further questions or concerns. Follow-up in 1 week. Multi Select Codes - Visit Charges Office Visit/Consults: 98699 OV L3 Est - Integumentary Integumentary CPT Codes: 96563 Shelbi subq tissue 20 sq cm/< - Total Sq Cm debrided - 144.
[2019-04-01 10:54] VITALS: BP 121/72; PULSE 73; RESP 20; TEMP 36.2; BMI 44.9
--- NOTE | 2019-04-01 12:37 | PN.PCM_ITS ---
(1) Cellulitis of left lower extremity Status: Acute Current Visit: Yes Code(s): L03.116 - Cellulitis of left lower limb (2) Lymphedema of both lower extremities Status: Chronic Current Visit: Yes Code(s): I89.0 - Lymphedema, not elsewhere classified (3) Ulcer of left lower extremity with fat layer exposed Status: Acute Current Visit: Yes Code(s): L97.922 - Non-pressure chronic ulcer of unspecified part of left lower leg with fat layer exposed Type of Wound Date of Service: 04/01/19 Chief Complaint: Left lower extremity ulcer. History of Wound: Mr. Russell is a 69yo well-known to the wound center who pres ents due to new left lower extremity ulcer. Presented to the emergency room due to concern for cellulitis on Friday. He was diagnosed with cellulitis and per patient he was given a day of IV antibiotics and discharged on Keflex. Pain, redness and drainage have improved. He subsequently followed up here for ulcer care/management. He denies chills, fever or otherwise feeling of unwell. Progress of Wound: Still significant lower extremity edema and drainage. No chills or fever. Feels well otherwise. - Physical Exam Vital Signs Temp Pulse Resp BP 97.1 F L 73 20 H 121/72 H 04/01/19 10:54 04/01/19 10:54 04/01/19 10:54 04/01/19 10:54 General: Alert, Oriented x3, Cooperative, No apparent distress HEENT: Atraumatic, Normocephalic Oral: Moist Mucosa Neck: Supple Lungs: Normal air movement Abdomen: Non Tender, Obese Extremities: No cyanosis, Edema Skin: Ulcer/ Wound Wound Measurements and Assessment WC - Nurse 1 - General Ulcer Measurement Start: 03/25/19 10:44 Freq: Status: Active Protocol: Activity Type Activity Date Activity User E-Sign Co-Sign Detail Recorded Client Recorded Date Recorded By Document 04/01/19 10:54 DL [id number] 04/01/19 11:03 DL 04/01/19 10:54 Wound Center Nurse 1 [Ulcer Assessment] #9- L LAT LE/FOOT -Current Size (cm) - Length 14 -Current Size (cm) - Width 7 -Current Size (cm) - Depth 0.1 -Total Square Cm 98 -Photo Taken No -Exudate Amt Large -Exudate Type Serosanguineous -Wound Margin Indistinct, Non -Visible -Granulation Amt Large (67-100%) -Granulation Quality [place] -Necrosis Amt Large (67-100%) -Necrotic Tissue Type Adherent Slough -Structure Exposed N/A -Texture (Jaylyn-wound Skin Appearance) Excoriation -Moisture (Jaylyn-wound Skin Appearance Maceration ) -Color (Jaylyn-wound Skin Appearance) Hemosiderin Staining -Temperature (Jaylyn-wound Skin No Abnormality Appearance) (Pt Warm) -Tenderness on Palpation (Jaylyn-wound No Skin Appearance) -Ulcer Cleansing Wound Cleanser -Foul Odor after Cleansing No -Anesthetic Used 4% Lidocaine Solution [Edema Assessment] -Point of measurement (cm from the 50.5 medial instep) -Point of Measurement (cm from the 34 medial instep) WC - Nurse 2 - General Ulcer CM Notes Start: 03/25/19 10:44 Freq: Status: Active Protocol: Activity Type Activity Date Activity User E-Sign Co-Sign Detail Recorded Client Recorded Date Recorded By Document 04/01/19 11:34 MW [id number] 04/01/19 11:37 MW 04/01/19 11:34 Wound Center Nurse 2 [Procedure/Treatment] #9- L LAT LE/FOOT -Time 11:34 -Correct Patient Yes -Correct Side, Site, Position Yes -Correct Procedure Yes -Procedure Performed Yes -Type of Procedure Debridement -Clinical Debridement Subcutaneous -Post Debridement Size (cm) - Length 17.0 -Post Debridement Size (cm) - Width 11.0 -Post Debridement Size (cm) - Depth 0.1 -Total Square Cm 187.00 -Wound/Ulcer Outcome Not Healed -Ulcer Cleansing Rinsed/ Irrigated with Saline -Foul Odor after Cleansing No -Bioengineered Tissue No -Bleeding Controlled with Pressure -Offloading No -Treatment Response Procedure Tolerated Well [See Physician Procedure note for Specifics] Pain Scale: 0-10 Numeric [Pain] -Is Patient Pain Free? Yes Musculoskeletal: No Muscle Wasting Neurological: Cranial nerves II-XII grossly intact Psych/Mental Status: Normal Affect Debridement Note Post-Debridement Measurements/Treatment WC - Nurse 2 - General Ulcer CM Notes Start: 03/25/19 10:44 Freq: Status: Active Protocol: Activity Type Activity Date Activity User E-Sign Co-Sign Detail Recorded Client Recorded Date Recorded By Document 03/25/19 11:11 MW [id number] 03/25/19 11:15 MW Document 04/01/19 11:34 MW [id number] 04/01/19 11:37 MW 03/25/19 04/01/19 11:11 11:34 Wound Center Nurse 2 #9- L LAT LE/FOOT -Time 11:12 11:34 -Correct Patient Yes Yes -Correct Side, Site, Position Yes Yes -Correct Procedure Yes Yes -Procedure Performed Yes Yes -Type of Procedure Debridement Debridement -Clinical Debridement Subcutaneous Subcutaneous -Post Debridement Size (cm) - Length 15.0 17.0 -Post Debridement Size (cm) - Width 11.0 11.0 -Post Debridement Size (cm) - Depth 0.1 0.1 -Total Square Cm 165.00 187.00 -Wound/Ulcer Outcome Not Healed Not Healed -Ulcer Cleansing Rinsed/ Rinsed/ Irrigated with Irrigated with Saline Saline -Foul Odor after Cleansing No No -Bioengineered Tissue No No -Bleeding Controlled with Pressure Pressure -Offloading No No -Treatment Response Procedure Procedure Tolerated Well Tolerated Well Pain Scale: 0-10 Numeric Is Patient Pain Free? Yes Yes Wound debrided: Left Leg Cluster Type of Debridement: Excisional debridement Anesthesia Used: 4% Lidocaine Solution Depth: Down to and including healthy tissue, in the subcutaneous layer Percentage of wound debrided: 100 Instrument Used: 7mm curette Tissue Removed: Slough and devitalized tissue Severity: Fat Layer Exposed Amount of bleeding with debridement: Mild Bleeding Controlled with: Pressure Patient tolerated procedure well Assessment/Plan Active Problems (Last Reviewed 08/17/18 @ 15:02 by Benita Hong) Ulcer of left lower extremity with fat layer exposed (Acute) Lymphedema of both lower extremities (Chronic) Cellulitis of left lower extremity (Acute) Assessment: Same as above. Plan: Debridement done as documented above, procedure was well-tolerated. Switch to aquacel extra with ABD over top. Bilateral 3M wrap for edema management. Change on Friday, friday, friday and friday by home health nurse. Continue use of lymphedema pump. Compliance encouraged. Continue leg elevation, increase protein intake, exercise as tolerated and avoid idle standing. His questions were answered and he was advised to call with any further questions or concerns. Follow-up in 2 weeks. Code Visit [id number]: [id number] Shelbi subq tissue 20 sq cm/<
== END 2019-04-10 23:59 ==
LOC: WC 10:45
PROVIDERS: Family Provider Family Medicine; PCP Family Medicine; Visit Provider Internal Medicine
DX: E11.622 Type 2 diabetes mellitus with other skin ulcer (principal); L97.822 Non-pressure chronic ulcer of other part of left lower leg with fat layer exposed; I89.0 Lymphedema, not elsewhere classified; E11.22 Type 2 diabetes mellitus with diabetic chronic kidney disease; E78.5 Hyperlipidemia, unspecified; N18.2 Chronic kidney disease, stage 2 (mild); I12.9 Hypertensive chronic kidney disease with stage 1 through stage 4 chronic kidney disease, or unspecified chronic kidney disease; Z79.899 Other long term (current) drug therapy
CPT/HCPCS: 11042; 11045; 29581; 99213; G0463

== ENCOUNTER → 2019-04-24 09:45 | Outpatient (CLI) | payer MEDICARE, OTHER, SELFPAY ==
[2019-04-15 09:31] VITALS: BMI 44.9
[2019-04-22 10:16] VITALS: BMI 44.9
[2019-04-24 11:02] LABS: Hemoglobin 10.6 g/dL (13.0-16.5); Mean Corp Hgb Conc 32.1 g/dL (32-36); Mean Corpuscular Hgb 32.2 pg (27.0-32.0); Mean Corpuscular Volume 100.3 fL (80-94); Mean Platelet Vol. 11.7 fl (6.2-12.0); Platelet Count 203 K/mm3 (150-450); RBC Distribution Width CV 13.9 % (11.6-14.6); Red Blood Count 3.29 M/mm3 (4.6-6.2); White Blood Count 7.7 K/mm3 (4.4-11.0)
[2019-04-24 11:25] LABS: Albumin, Serum 2.8 g/dL (3.2-5.0); BUN 45 mg/dL (7-18); BUN/Creat Ratio 28.1 RATIO (10-20); Chloride 111 mmol/L (98-107); EST Glomerular Filtration Rate 46 mL/min (>60); Est Glom Filt Rate - Afr Amer 55 mL/min (>60); Glucose 102 mg/dL (74-106); Phosphorus 3.4 mg/dL (2.5-4.9); Potassium 4.7 mmol/L (3.5-5.1); Sodium Level 139 mmol/L (136-145)
== END ==
PROVIDERS: Family Provider Family Medicine; PCP Family Medicine; Referring Provider Internal Medicine Nephrology; Visit Provider Internal Medicine Nephrology
DX: N18.3 Chronic kidney disease, stage 3 (moderate) (principal)
CPT/HCPCS: 36415; 80069; 83970; 85027

== ENCOUNTER 2019-04-29 10:00 | Outpatient (RCR) | payer MEDICARE, OTHER, SELFPAY ==
[2019-04-11 01:17] VITALS: BP 121/72; PULSE 73; RESP 20; TEMP 36.2
[2019-04-15 09:31] VITALS: BP 129/73; PULSE 83; RESP 22; TEMP 36.6; BMI 44.9
--- NOTE | 2019-04-15 10:40 | PN.PCM_ITS ---
(1) Ulcer of left lower extremity with fat layer exposed Status: Acute Current Visit: Yes Code(s): L97.922 - Non-pressure chronic ulcer of unspecified part of left lower leg with fat layer exposed (2) Lymphedema of both lower extremities Status: Chronic Current Visit: Yes Code(s): I89.0 - Lymphedema, not elsewhere classified (3) Type 2 diabetes mellitus Status: Chronic Current Visit: Yes Code(s): E11.9 - Type 2 diabetes mellitus without complications Type of Wound Date of Service: 04/15/19 Chief Complaint: Left lower extremity ulcer. History of Wound: Mr. Russell is a 69yo well-known to the wound center who presents due to new left lower extremity ulcer. Presented to the emergency room due to concern for cellulitis on Friday. He was diagnosed with cellulitis and per patient he was given a day of IV antibiotics and discharged on Keflex. Pain, redness and drainage have improved. He subsequently followed up here for ulcer care/management. He denies chills, fever or otherwise feeling of unwell. Progress of Wound: Previous ulceration is improved. New left medial ulceraion with increased drainage and tenderness. - Physical Exam Vital Signs Temp Pulse Resp BP 97.9 F 83 22 H 129/73 H 04/15/19 09:31 12 09:31 04/15/19 09:31 04/15/19 09:31 General: Alert, Oriented x3, Cooperative, No apparent distress HEENT: Atraumatic, Normocephalic Oral: Moist Mucosa Neck: Supple Lungs: Normal air movement Abdomen: Non Tender, Obese Extremities: No cyanosis, Edema Skin: Ulcer/ Wound Wound Measurements and Assessment WC - Nurse 1 - General Ulcer Measurement Start: 04/15/19 09:31 Freq: Status: Active Protocol: Activity Type Activity Date Activity User E-Sign Co-Sign Detail Recorded Client Recorded Date Recorded By Document 04/15/19 09:31 DL [id number] 04/15/19 09:41 DL 04/15/19 09:31 Wound Center Nurse 1 [Ulcer Assessment] #9- L LAT LE/FOOT -Current Size (cm) - Length 1 -Current Size (cm) - Width 0.5 -Current Size (cm) - Depth 0.1 -Total Square Cm 0.5 -Photo Taken No -Exudate Amt Medium -Exudate Type Serosanguineous -Wound Margin Indistinct, Non -Visible -Granulation Amt Large (67-100%) -Granulation Quality [place] -Necrosis Amt Small (1-33%) -Necrotic Tissue Type Adherent Slough -Structure Exposed N/A -Texture (Jaylyn-wound Skin Appearance) Excoriation, Localized Edema -Moisture (Jaylyn-wound Skin Appearance Weeping ) -Color (Jaylyn-wound Skin Appearance) Hemosiderin Staining -Temperature (Jaylyn-wound Skin No Abnormality Appearance) (Pt Warm) -Tenderness on Palpation (Jaylyn-wound Yes Skin Appearance) -Ulcer Cleansing Rinsed/ Irrigated with Saline -Foul Odor after Cleansing No -Anesthetic Used 4% Lidocaine Solution [Edema Assessment] -Right Calf (cm) 41 -Right Ankle (cm) 30.4 -Left Calf (cm) 48 -Left Ankle (cm) 33 WC - Nurse 2 - General Ulcer CM Notes Start: 04/15/19 09:31 Freq: Status: Active Protocol: Activity Type Activity Date Activity User E-Sign Co-Sign Detail Recorded Client Recorded Date Recorded By Document 04/15/19 10:00 MW [id number] 04/15/19 10:06 MW 04/15/19 10:00 Wound Center Nurse 2 [Procedure/Treatment] #10 left medial LE/ ankle -Time 10:04 -Correct Patient Yes -Correct Side, Site, Position Yes -Correct Procedure Yes -Procedure Performed Yes -Type of Procedure Debridement -Clinical Debridement Subcutaneous -Post Debridement Size (cm) - Length 11.0 -Post Debridement Size (cm) - Width 9.0 -Post Debridement Size (cm) - Depth 0.1 -Total Square Cm 99.00 -Wound/Ulcer Outcome Not Healed -Ulcer Cleansing Rinsed/ Irrigated with Saline -Foul Odor after Cleansing No -Bioengineered Tissue No -Bleeding Controlled with Pressure -Offloading No -Treatment Response Procedure Tolerated Well #9- L LAT LE/FOOT -Time 10:04 -Correct Patient Yes -Correct Side, Site, Position Yes -Correct Procedure Yes -Procedure Performed Yes -Type of Procedure Debridement -Clinical Debridement Subcutaneous -Post Debridement Size (cm) - Length 7.0 -Post Debridement Size (cm) - Width 2.0 -Post Debridement Size (cm) - Depth 0.1 -Total Square Cm 14.00 -Wound/Ulcer Outcome Not Healed -Ulcer Cleansing Rinsed/ Irrigated with Saline -Foul Odor after Cleansing No -Bioengineered Tissue No -Bleeding Controlled with Pressure -Offloading No -Treatment Response Procedure Tolerated Well [See Physician Procedure note for Specifics] Pain Scale: 0-10 Numeric [Pain] -Is Patient Pain Free? Yes Musculoskeletal: No Muscle Wasting Neurological: Cranial nerves II-XII grossly intact Psych/Mental Status: Normal Affect Debridement Note Post-Debridement Measurements/Treatment WC - Nurse 2 - General Ulcer CM Notes Start: 04/15/19 09:31 Freq: Status: Active Protocol: Activity Type Activity Date Activity User E-Sign Co-Sign Detail Recorded Client Recorded Date Recorded By Document 04/15/19 10:00 MW [id number] 04/15/19 10:06 MW 04/15/19 10:00 Wound Center Nurse 2 #10 left medial LE/ ankle -Time 10:04 -Correct Patient Yes -Correct Side, Site, Position Yes -Correct Procedure Yes -Procedure Performed Yes -Type of Procedure Debridement -Clinical Debridement Subcutaneous -Post Debridement Size (cm) - Length 11.0 -Post Debridement Size (cm) - Width 9.0 -Post Debridement Size (cm) - Depth 0.1 -Total Square Cm 99.00 -Wound/Ulcer Outcome Not Healed -Ulcer Cleansing Rinsed/ Irrigated with Saline -Foul Odor after Cleansing No -Bioengineered Tissue No -Bleeding Controlled with Pressure -Offloading No -Treatment Response Procedure Tolerated Well #9- L LAT LE/FOOT -Time 10:04 -Correct Patient Yes -Correct Side, Site, Position Yes -Correct Procedure Yes -Procedure Performed Yes -Type of Procedure Debridement -Clinical Debridement Subcutaneous -Post Debridement Size (cm) - Length 7.0 -Post Debridement Size (cm) - Width 2.0 -Post Debridement Size (cm) - Depth 0.1 -Total Square Cm 14.00 -Wound/Ulcer Outcome Not Healed -Ulcer Cleansing Rinsed/ Irrigated with Saline -Foul Odor after Cleansing No -Bioengineered Tissue No -Bleeding Controlled with Pressure -Offloading No -Treatment Response Procedure Tolerated Well Pain Scale: 0-10 Numeric Is Patient Pain Free? Yes Wound debrided: Left lateral cluster Anesthesia Used: 4% Lidocaine Solution Depth: Down to and including healthy tissue, in the subcutaneous layer Percentage of wound debrided: 100 Instrument Used: 5mm curette Tissue Removed: Slouh and devitalized tissue Severity: Fat Layer Exposed Amount of bleeding with debridement: Mild Bleeding Controlled with: Pressure Patient tolerated procedure well - Additional Wound Wound debrided: Left medial cluster Type of Debridement: Excisional debridement Anesthesia Used: 4% Lidocaine Solution Depth: Down to and including healthy tissue, in the subcutaneous layer Instrument Used: 5mm curette Tissue Removed: Slough and devitalized tissue Severity: Fat Layer Exposed Amount of bleeding with debridement: Mild Bleeding Controlled with: Pressure Patient tolerated procedure: Patient tolerated procedure well Assessment/Plan Active Problems (Last Reviewed 08/17/18 @ 15:02 by Benita Hong) Ulcer of left lower extremity with fat layer exposed (Acute) Lymphedema of both lower extremities (Chronic) Type 2 diabetes mellitus (Chronic) Assessment: Same as above. Plan: Debridement done as documented above, procedure was well-tolerated. Continue aquacel extra with ABD over top to both ulcers. Bilateral 3M wrap for edema management. Change on Friday by [facility]. Continue use of lymphedema pump. Compliance encouraged. Continue leg elevation, increase protein intake, exercise as tolerated and avoid idle standing. Stared on Keflex and doxycycline for possible left medial lower extremity cellulitis. His questions were answered and he was advised to call with any further questions or concerns. Follow-up in 1 week. Code Visit [id number]: [id number] Shelbi subq tissue 20 sq cm/<
[2019-04-22 10:16] VITALS: BP 108/68; PULSE 90; RESP 22; TEMP 37.1; BMI 44.9
--- NOTE | 2019-04-22 11:09 | PN.PCM_ITS ---
(1) Ulcer of left lower extremity with fat layer exposed Status: Acute Current Visit: Yes Code(s): L97.922 - Non-pressure chronic ulcer of unspecified part of left lower leg with fat layer exposed (2) Lymphedema of both lower extremities Status: Chronic Current Visit: Yes Code(s): I89.0 - Lymphedema, not elsewhere classified (3) Type 2 diabetes mellitus Status: Chronic Current Visit: Yes Code(s): E11.9 - Type 2 diabetes mellitus without complications (4) Ulcer of right lower extremity with fat layer exposed Status: Acute Current Visit: No Code(s): L97.912 - Non-pressure chronic ulcer of unspecified part of right lower leg with fat layer exposed Type of Wound Date of Service: 04/22/19 Chief Complaint: Left lower extremity ulcer. History of Wound: Mr. Russell is a 69yo well-known to the wound center who presents due to new left lower extremity ulcer. Presented to the emergency room due to concern for cellulitis on Friday. He was diagnosed with cellulitis and per patient he was given a day of IV antibiotics and discharged on Keflex. Pain, redness and drainage have improved. He subsequently followed up here for ulcer care/management. He denies chills, fever or otherwise feeling of unwell. Progress of Wound: Left medial foot ulcer with no significant improvement. New right leg ulcer. - Physical Exam Vital Signs Temp Pulse Resp BP 98.7 F 90 22 H 108/68 04/22/19 10:16 04/22/19 10:16 04/22/19 10:16 04/22/19 10:16 General: Alert, Oriented x3, Cooperative, No apparent distress HEENT: Atraumatic, Normocephalic Oral: Moist Mucosa Neck: Supple Lungs: Normal air movement Abdomen: Non Tender, Obese Extremities: No cyanosis, Edema Skin: Ulcer/ Wound Wound Measurements and Assessment WC - Nurse 1 - General Ulcer Measurement Start: 04/15/19 09:31 Freq: Status: Active Protocol: Activity Type Activity Date Activity User E-Sign Co-Sign Detail Recorded Client Recorded Date Recorded By Document 04/22/19 10:16 DL [id number] 04/22/19 10:25 DL 04/22/19 10:16 Wound Center Nurse 1 [Ulcer Assessment] #10 left medial LE/ ankle -Current Size (cm) - Length 9 -Current Size (cm) - Width 9.8 -Current Size (cm) - Depth 0.1 -Total Square Cm 88.2 -Photo Taken No -Exudate Amt Medium -Exudate Type Serosanguineous -Wound Margin Indistinct, Non -Visible -Granulation Amt Medium (34-66%) -Granulation Quality [place] -Necrosis Amt Medium (34-66%) -Necrotic Tissue Type Adherent Slough -Structure Exposed N/A -Texture (Jaylyn-wound Skin Appearance) Excoriation, Scarring -Moisture (Jaylyn-wound Skin Appearance Weeping ) -Color (Jaylyn-wound Skin Appearance) Hemosiderin Staining -Temperature (Jaylyn-wound Skin No Abnormality Appearance) (Pt Warm) -Tenderness on Palpation (Jaylyn-wound No Skin Appearance) -Ulcer Cleansing Wound Cleanser -Foul Odor after Cleansing No -Anesthetic Used 4% Lidocaine Solution #9- L LAT LE/FOOT -Current Size (cm) - Length 0.1 -Current Size (cm) - Width 0.1 -Current Size (cm) - Depth 0.1 -Total Square Cm 0.01 -Photo Taken No -Exudate Amt Small -Wound Margin Indistinct, Non -Visible -Granulation Amt Large (67-100%) -Granulation Quality [place] -Necrosis Amt Small (1-33%) -Necrotic Tissue Type Adherent Slough -Structure Exposed N/A -Texture (Jaylyn-wound Skin Appearance) Scarring -Moisture (Jaylyn-wound Skin Appearance Weeping ) -Color (Jaylyn-wound Skin Appearance) Ecchymosis, Hemosiderin Staining -Tenderness on Palpation (Jaylyn-wound No Skin Appearance) -Ulcer Cleansing Wound Cleanser -Foul Odor after Cleansing No -Anesthetic Used 4% Lidocaine Solution [Edema Assessment] -Left Calf (cm) 46.5 -Left Ankle (cm) 33.5 WC - Nurse 2 - General Ulcer CM Notes Start: 04/15/19 09:31 Freq: Status: Active Protocol: Activity Type Activity Date Activity User E-Sign Co-Sign Detail Recorded Client Recorded Date Recorded By Document 04/22/19 10:37 MW [id number] 04/22/19 10:42 MW 04/22/19 10:37 Wound Center Nurse 2 [Procedure/Treatment] 11 right medial LE cluster -Time 10:39 -Correct Patient Yes -Correct Side, Site, Position Yes -Correct Procedure Yes -Procedure Performed Yes -Type of Procedure Debridement -Clinical Debridement Subcutaneous -Post Debridement Size (cm) - Length 6.0 -Post Debridement Size (cm) - Width 2.5 -Post Debridement Size (cm) - Depth 0.1 -Total Square Cm 15.00 -Wound/Ulcer Outcome Not Healed -Ulcer Cleansing Rinsed/ Irrigated with Saline -Foul Odor after Cleansing No -Bioengineered Tissue No -Bleeding Controlled with Pressure -Offloading No -Treatment Response Procedure Tolerated Well #10 left medial LE/ ankle -Time 10:37 -Correct Patient Yes -Correct Side, Site, Position Yes -Correct Procedure Yes -Procedure Performed Yes -Type of Procedure Debridement -Clinical Debridement Subcutaneous -Post Debridement Size (cm) - Length 6.0 -Post Debridement Size (cm) - Width 9.0 -Post Debridement Size (cm) - Depth 0.1 -Total Square Cm 54.00 -Wound/Ulcer Outcome Not Healed -Ulcer Cleansing Rinsed/ Irrigated with Saline -Foul Odor after Cleansing No -Bioengineered Tissue No -Bleeding Controlled with Pressure -Offloading No -Treatment Response Procedure Tolerated Well #9- L LAT LE/FOOT -Time 10:37 -Correct Patient Yes -Correct Side, Site, Position Yes -Correct Procedure Yes -Procedure Performed No -Post Debridement Size (cm) - Length 0 -Post Debridement Size (cm) - Width 0 -Post Debridement Size (cm) - Depth 0 -Total Square Cm 0 -Wound/Ulcer Outcome Healed- Epithelialized -Ulcer Cleansing Not Cleansed -Bleeding Controlled with NA -Treatment Response Procedure Tolerated Well [See Physician Procedure note for Specifics] Pain Scale: 0-10 Numeric [Pain] -Is Patient Pain Free? Yes Musculoskeletal: No Muscle Wasting Neurological: Cranial nerves II-XII grossly intact Psych/Mental Status: Normal Affect Debridement Note Post-Debridement Measurements/Treatment WC - Nurse 2 - General Ulcer CM Notes Start: 04/15/19 09:31 Freq: Status: Active Protocol: Activity Type Activity Date Activity User E-Sign Co-Sign Detail Recorded Client Recorded Date Recorded By Document 04/15/19 10:00 MW [id number] 04/15/19 10:06 MW Document 04/22/19 10:37 MW [id number] 04/22/19 10:42 MW 04/15/19 04/22/19 10:00 10:37 Wound Center Nurse 2 11 right medial LE cluster -Time 10:39 -Correct Patient Yes -Correct Side, Site, Position Yes -Correct Procedure Yes -Procedure Performed Yes -Type of Procedure Debridement -Clinical Debridement Subcutaneous -Post Debridement Size (cm) - Length 6.0 -Post Debridement Size (cm) - Width 2.5 -Post Debridement Size (cm) - Depth 0.1 -Total Square Cm 15.00 -Wound/Ulcer Outcome Not Healed -Ulcer Cleansing Rinsed/ Irrigated with Saline -Foul Odor after Cleansing No -Bioengineered Tissue No -Bleeding Controlled with Pressure -Offloading No -Treatment Response Procedure Tolerated Well #10 left medial LE/ ankle -Time 10:04 10:37 -Correct Patient Yes Yes -Correct Side, Site, Position Yes Yes -Correct Procedure Yes Yes -Procedure Performed Yes Yes -Type of Procedure Debridement Debridement -Clinical Debridement Subcutaneous Subcutaneous -Post Debridement Size (cm) - Length 11.0 6.0 -Post Debridement Size (cm) - Width 9.0 9.0 -Post Debridement Size (cm) - Depth 0.1 0.1 -Total Square Cm 99.00 54.00 -Wound/Ulcer Outcome Not Healed Not Healed -Ulcer Cleansing Rinsed/ Rinsed/ Irrigated with Irrigated with Saline Saline -Foul Odor after Cleansing No No -Bioengineered Tissue No No -Bleeding Controlled with Pressure Pressure -Offloading No No -Treatment Response Procedure Procedure Tolerated Well Tolerated Well #9- L LAT LE/FOOT -Time 10:04 10:37 -Correct Patient Yes Yes -Correct Side, Site, Position Yes Yes -Correct Procedure Yes Yes -Procedure Performed Yes No -Type of Procedure Debridement -Clinical Debridement Subcutaneous -Post Debridement Size (cm) - Length 7.0 0 -Post Debridement Size (cm) - Width 2.0 0 -Post Debridement Size (cm) - Depth 0.1 0 -Total Square Cm 14.00 0 -Wound/Ulcer Outcome Not Healed Healed- Epithelialized -Ulcer Cleansing Rinsed/ Not Cleansed Irrigated with Saline -Foul Odor after Cleansing No -Bioengineered Tissue No -Bleeding Controlled with Pressure NA -Offloading No -Treatment Response Procedure Procedure Tolerated Well Tolerated Well Pain Scale: 0-10 Numeric Is Patient Pain Free? Yes Yes Wound debrided: Left medial foot Type of Debridement: Excisional debridement Anesthesia Used: 4% Lidocaine Solution Depth: Down to and including healthy tissue, in the subcutaneous layer Percentage of wound debrided: 100 Instrument Used: 7mm curette Tissue Removed: Slough and devitalized tissue Severity: Fat Layer Exposed Amount of bleeding with debridement: Mild Bleeding Controlled with: Pressure Patient tolerated procedure well - Additional Wound Wound debrided: Right medial leg cluster Type of Debridement: Excisional debridement Anesthesia Used: 4% Lidocaine Solution Depth: Down to and including healthy tissue, in the subcutaneous layer Percentage of wound debrided: 100 Instrument Used: 5mm curette Tissue Removed: Slough and devitalized tissue Severity: Fat Layer Exposed Amount of bleeding with debridement: Mild Bleeding Controlled with: Pressure Patient tolerated procedure: Patient tolerated procedure well Assessment/Plan Active Problems (Last Reviewed 08/17/18 @ 15:02 by Benita Hong) Ulcer of left lower extremity with fat layer exposed (Acute) Lymphedema of both lower extremities (Chronic) Type 2 diabetes mellitus (Chronic) Assessment: Same as above. Plan: Debridement done as documented above, procedure was well-tolerated. Continue aquacel extra with ABD over top to both ulcers. Bilateral 3M wrap for edema management. Change on Friday by [facility]. Continue use of lymphedema pump. Compliance encouraged. Continue leg elevation, increase protein intake, exercise as tolerated and avoid idle standing. His questions were answered and he was advised to call with any further questions or concerns. Follow-up in 1 week. Code Visit [id number]: [id number] Shelbi subq tissue 20 sq cm/< - Additional sq CM debrided. Please refer to clinic note.
[2019-04-29 09:55] VITALS: BP 132/78; PULSE 76; RESP 22; TEMP 36.8; BMI 44.9
--- NOTE | 2019-04-29 10:49 | PCM.WC.PN ---
(1) Ulcer of left lower extremity with fat layer exposed Status: Acute Current Visit: Yes Code(s): L97.922 - Non-pressure chronic ulcer of unspecified part of left lower leg with fat layer exposed (2) Lymphedema of both lower extremities Status: Chronic Current Visit: Yes Code(s): I89.0 - Lymphedema, not elsewhere classified (3) Type 2 diabetes mellitus Status: Chronic Current Visit: Yes Code(s): E11.9 - Type 2 diabetes mellitus without complications (4) Ulcer of right lower extremity with fat layer exposed Status: Acute Current Visit: No Code(s): L97.912 - Non-pressure chronic ulcer of unspecified part of right lower leg with fat layer exposed Type of Wound Date of Service: 04/29/19 Chief Complaint: Left lower extremity ulcer. History of Wound: Mr. Russell is a 69yo well-known to the wound center who presents due to new left lower extremity ulcer. Presented to the emergency room due to concern for cellulitis on Friday. He was diagnosed with cellulitis and per patient he was given a day of IV antibiotics and discharged on Keflex. Pain, redness and drainage have improved. He subsequently followed up here for ulcer care/management. He denies chills, fever or otherwise feeling of unwell. Progress of Wound: Worsening edema but stable/ improving ulcer. - Physical Exam Vital Signs Temp Pulse Resp BP 98.2 F 76 22 H 132/78 H 04/29/19 09:55 04/29/19 09:55 04/29/19 09:55 04/29/19 09:55 General: Alert, Oriented x3, Cooperative, No apparent distress HEENT: Atraumatic, Normocephalic Oral: Moist Mucosa Neck: Supple Lungs: Normal air movement Abdomen: Non Tender, Obese Extremities: No cyanosis, Edema Skin: Ulcer/ Wound Wound Measurements and Assessment WC - Nurse 1 - General Ulcer Measurement Start: 04/15/19 09:31 Freq: Status: Active Protocol: Activity Type Activity Date Activity User E-Sign Co-Sign Detail Recorded Client Recorded Date Recorded By Document 04/29/19 09:55 DL [id number] 04/29/19 10:06 DL 04/29/19 09:55 Wound Center Nurse 1 [Ulcer Assessment] 11 right medial LE cluster -Current Size (cm) - Length 0.6 -Current Size (cm) - Width 1 -Current Size (cm) - Depth 0.1 -Total Square Cm 0.6 -Photo Taken No -Wound Margin Indistinct, Non -Visible -Granulation Amt None Present (0 %) -Necrosis Amt Small (1-33%) -Necrotic Tissue Type Adherent Slough -Texture (Jaylyn-wound Skin Appearance) Localized Edema -Moisture (Jaylyn-wound Skin Appearance Dry/Scaly ) -Color (Jaylyn-wound Skin Appearance) Hemosiderin Staining -Temperature (Jaylyn-wound Skin No Abnormality Appearance) (Pt Warm) -Tenderness on Palpation (Jaylyn-wound No Skin Appearance) -Ulcer Cleansing Wound Cleanser -Foul Odor after Cleansing No -Anesthetic Used 5% Lidocaine Gel #10 left medial LE/ ankle -Current Size (cm) - Length 5.1 -Current Size (cm) - Width 5 -Current Size (cm) - Depth 0.1 -Total Square Cm 25.5 -Photo Taken No -Exudate Amt Medium -Exudate Type Serosanguineous -Wound Margin Indistinct, Non -Visible -Granulation Amt Medium (34-66%) -Granulation Quality [place] -Necrosis Amt Medium (34-66%) -Necrotic Tissue Type Adherent Slough -Texture (Jaylyn-wound Skin Appearance) Excoriation, Localized Edema -Moisture (Jaylyn-wound Skin Appearance Maceration ) -Color (Jaylyn-wound Skin Appearance) Hemosiderin Staining -Temperature (Jaylyn-wound Skin No Abnormality Appearance) (Pt Warm) -Tenderness on Palpation (Jaylyn-wound No Skin Appearance) -Ulcer Cleansing Wound Cleanser -Foul Odor after Cleansing No -Anesthetic Used 4% Lidocaine Solution [Edema Assessment] -Right Calf (cm) 45 -Right Ankle (cm) 33.5 -Left Calf (cm) 25.5 -Left Ankle (cm) 36 WC - Nurse 2 - General Ulcer CM Notes Start: 04/15/19 09:31 Freq: Status: Active Protocol: Activity Type Activity Date Activity User E-Sign Co-Sign Detail Recorded Client Recorded Date Recorded By Document 04/29/19 10:30 MW [id number] 04/29/19 10:34 MW 04/29/19 10:30 Wound Center Nurse 2 [Procedure/Treatment] 11 right medial LE cluster -Time 10:30 -Correct Patient Yes -Correct Side, Site, Position Yes -Correct Procedure Yes -Procedure Performed Yes -Type of Procedure Debridement -Clinical Debridement Subcutaneous -Post Debridement Size (cm) - Length 1.5 -Post Debridement Size (cm) - Width 0.5 -Post Debridement Size (cm) - Depth 0.1 -Total Square Cm 0.75 -Wound/Ulcer Outcome Not Healed -Ulcer Cleansing Rinsed/ Irrigated with Saline -Foul Odor after Cleansing No -Bioengineered Tissue No -Bleeding Controlled with Pressure -Offloading No -Treatment Response Procedure Tolerated Well #10 left medial LE/ ankle -Time 10:30 -Correct Patient Yes -Correct Side, Site, Position Yes -Correct Procedure Yes -Procedure Performed Yes -Type of Procedure Debridement -Clinical Debridement Subcutaneous -Post Debridement Size (cm) - Length 5.5 -Post Debridement Size (cm) - Width 4.0 -Post Debridement Size (cm) - Depth 0.1 -Total Square Cm 22.00 -Wound/Ulcer Outcome Not Healed -Ulcer Cleansing Rinsed/ Irrigated with Saline -Foul Odor after Cleansing No -Bioengineered Tissue No -Bleeding Controlled with Pressure -Offloading No -Treatment Response Procedure Tolerated Well [See Physician Procedure note for Specifics] Pain Scale: 0-10 Numeric [Pain] -Is Patient Pain Free? Yes Musculoskeletal: No Muscle Wasting Neurological: Cranial nerves II-XII grossly intact Psych/Mental Status: Normal Affect Debridement Note Post-Debridement Measurements/Treatment WC - Nurse 2 - General Ulcer CM Notes Start: 04/15/19 09:31 Freq: Status: Active Protocol: Activity Type Activity Date Activity User E-Sign Co-Sign Detail Recorded Client Recorded Date Recorded By Document 04/15/19 10:00 MW [id number] 04/15/19 10:06 MW Document 04/22/19 10:37 MW [id number] 04/22/19 10:42 MW Document 04/29/19 10:30 MW [id number] 04/29/19 10:34 MW 04/15/19 04/22/19 04/29/19 10:00 10:37 10:30 Wound Center Nurse 2 11 right medial LE cluster -Time 10:39 10:30 -Correct Patient Yes Yes -Correct Side, Site, Position Yes Yes -Correct Procedure Yes Yes -Procedure Performed Yes Yes -Type of Procedure Debridement Debridement -Clinical Debridement Subcutaneous Subcutaneous -Post Debridement Size (cm) - Length 6.0 1.5 -Post Debridement Size (cm) - Width 2.5 0.5 -Post Debridement Size (cm) - Depth 0.1 0.1 -Total Square Cm 15.00 0.75 -Wound/Ulcer Outcome Not Healed Not Healed -Ulcer Cleansing Rinsed/ Rinsed/ Irrigated with Irrigated with Saline Saline -Foul Odor after Cleansing No No -Bioengineered Tissue No No -Bleeding Controlled with Pressure Pressure -Offloading No No -Treatment Response Procedure Procedure Tolerated Well Tolerated Well #10 left medial LE/ ankle -Time 10:04 10:37 10:30 -Correct Patient Yes Yes Yes -Correct Side, Site, Position Yes Yes Yes -Correct Procedure Yes Yes Yes -Procedure Performed Yes Yes Yes -Type of Procedure Debridement Debridement Debridement -Clinical Debridement Subcutaneous Subcutaneous Subcutaneous -Post Debridement Size (cm) - Length 11.0 6.0 5.5 -Post Debridement Size (cm) - Width 9.0 9.0 4.0 -Post Debridement Size (cm) - Depth 0.1 0.1 0.1 -Total Square Cm 99.00 54.00 22.00 -Wound/Ulcer Outcome Not Healed Not Healed Not Healed -Ulcer Cleansing Rinsed/ Rinsed/ Rinsed/ Irrigated with Irrigated with Irrigated with Saline Saline Saline -Foul Odor after Cleansing No No No -Bioengineered Tissue No No No -Bleeding Controlled with Pressure Pressure Pressure -Offloading No No No -Treatment Response Procedure Procedure Procedure Tolerated Well Tolerated Well Tolerated Well #9- L LAT LE/FOOT -Time 10:04 10:37 -Correct Patient Yes Yes -Correct Side, Site, Position Yes Yes -Correct Procedure Yes Yes -Procedure Performed Yes No -Type of Procedure Debridement -Clinical Debridement Subcutaneous -Post Debridement Size (cm) - Length 7.0 0 -Post Debridement Size (cm) - Width 2.0 0 -Post Debridement Size (cm) - Depth 0.1 0 -Total Square Cm 14.00 0 -Wound/Ulcer Outcome Not Healed Healed- Epithelialized -Ulcer Cleansing Rinsed/ Not Cleansed Irrigated with Saline -Foul Odor after Cleansing No -Bioengineered Tissue No -Bleeding Controlled with Pressure NA -Offloading No -Treatment Response Procedure Procedure Tolerated Well Tolerated Well Pain Scale: 0-10 Numeric Is Patient Pain Free? Yes Yes Yes Wound debrided: Left Foot Type of Debridement: Excisional debridement Anesthesia Used: 4% Lidocaine Solution Depth: Down to and including healthy tissue, in the subcutaneous layer Percentage of wound debrided: 100 Instrument Used: 5mm curette Tissue Removed: Slough and devitalized tissue Severity: Fat Layer Exposed Amount of bleeding with debridement: Mild Bleeding Controlled with: Pressure Patient tolerated procedure well - Additional Wound Wound debrided: Right medial leg Type of Debridement: Excisional debridement Anesthesia Used: 4% Lidocaine Solution Depth: Down to and including healthy tissue, in the subcutaneous layer Percentage of wound debrided: 100 Instrument Used: 3mm curette Tissue Removed: Slough and devitalized tissue Severity: Fat Layer Exposed Amount of bleeding with debridement: Mild Bleeding Controlled with: Pressure Patient tolerated procedure: Patient tolerated procedure well Assessment/Plan Active Problems (Last Reviewed 08/17/18 @ 15:02 by Benita Hong) Ulcer of left lower extremity with fat layer exposed (Acute) Lymphedema of both lower extremities (Chronic) Type 2 diabetes mellitus (Chronic) Assessment: Same as above. Plan: Debridement done as documented above, procedure was well-tolerated. Continue aquacel extra with ABD over top to both ulcers. Bilateral 3M wraps for edema management. Change on Friday and by [facility]. Patient is currently home bound and uses a walker due to unsteady gait. Continues to require Home health care. . Continue use of lymphedema pump. Compliance encouraged. Continue leg elevation, increase protein intake, exercise as tolerated and avoid idle standing. His questions were answered and he was advised to call with any further questions or concerns. Follow-up in 2 weeks. Code Visit 111xxx-[id number]: [id number] Shelbi subq tissue 20 sq cm/< - Additional Sq Cm debrided. Please refer to clinical note.
== END 2019-05-11 23:59 ==
LOC: WC 10:00
PROVIDERS: Family Provider Family Medicine; PCP Family Medicine; Visit Provider Internal Medicine
DX: E11.622 Type 2 diabetes mellitus with other skin ulcer (principal); L97.822 Non-pressure chronic ulcer of other part of left lower leg with fat layer exposed; I89.0 Lymphedema, not elsewhere classified; L97.812 Non-pressure chronic ulcer of other part of right lower leg with fat layer exposed; L03.116 Cellulitis of left lower limb
CPT/HCPCS: 11042; 11045

== ENCOUNTER 2019-06-10 09:15 | Outpatient (RCR) | payer MEDICARE, OTHER, SELFPAY ==
[2019-05-12 00:53] VITALS: BP 132/78; PULSE 76; RESP 22; TEMP 36.8
[2019-05-13 13:34] VITALS: BP 115/49; PULSE 78; RESP 18; TEMP 36.8; BMI 44.9
--- NOTE | 2019-05-13 20:17 | PN.PCM_ITS ---
(1) Ulcer of left lower extremity with fat layer exposed Status: Acute Code(s): L97.922 - Non-pressure chronic ulcer of unspecified part of left lower leg with fat layer exposed (2) Ulcer of right lower extremity with fat layer exposed Status: Acute Code(s): L97.912 - Non-pressure chronic ulcer of unspecified part of right lower leg with fat layer exposed (3) Cellulitis of left lower extremity Status: Acute Code(s): L03.116 - Cellulitis of left lower limb (4) Cellulitis of right lower extremity Status: Acute Code(s): L03.115 - Cellulitis of right lower limb (5) Essential hypertension Status: Chronic Code(s): I10 - Essential (primary) hypertension (6) Stage 2 chronic kidney disease Status: Chronic Code(s): N18.2 - Chronic kidney disease, stage 2 (mild) (7) Type 2 diabetes mellitus Status: Chronic Code(s): E11.9 - Type 2 diabetes mellitus without complications Type of Wound Date of Service: 05/19/19 Chief Complaint: Left lower extremity ulcer. History of Wound: Mr. Russell is a 69yo well-known to the wound center who presents due to new left lower extremity ulcer. Presented to the emergency room due to concern for cellulitis on Friday. He was diagnosed with cellulitis and per patient he was given a day of IV antibiotics and discharged on Keflex. Pain, redness and drainage have improved. He subsequently followed up here for ulcer care/management. He denies chills, fever or otherwise feeling of unwell. Progress of Wound: Cellulitis appears resolved, patient still has 2-3+ bilateral pitting lower extremity edema but stable/ improving ulcer.Does have small superficial excoriations present as well and therefore will try Unna boots today. - Physical Exam Vital Signs Temp Pulse Resp BP 98.2 F 78 18 115/49 L 05/13/19 13:34 05/13/19 13:34 05/13/19 13:34 05/13/19 13:34 General: Alert, Oriented x3, Cooperative, No apparent distress HEENT: Atraumatic Oral: Moist Mucosa Lungs: Clear to auscultation Cardiovascular: Regular rate Abdomen: Soft, Non Tender, Obese Extremities: No clubbing, No cyanosis, Edema - 2-3+ bilateral pitting lower extremity edema, Peripheral Pulses Normal Skin: Ulcer/ Wound - Ulceration to left lower extremity with adherent slough, superficial excoriations present to bilateral lower extremities,Slight redness noted, however no warmth, tenderness, or fluctuance. Neurological: Neuro grossly intact Psych/Mental Status: Normal Affect, Appropriate, Alert and oriented to time, place, person, mood and affect Debridement Note Post-Debridement Measurements/Treatment WC - Nurse 2 - General Ulcer CM Notes Start: 05/13/19 13:33 Freq: Status: Active Protocol: Activity Type Activity Date Activity User E-Sign Co-Sign Detail Recorded Client Recorded Date Recorded By Document 05/13/19 13:58 MW [id number] 05/13/19 14:03 MW 05/13/19 13:58 Wound Center Nurse 2 11 right medial LE cluster -Time 13:58 -Correct Patient Yes -Correct Side, Site, Position Yes -Correct Procedure Yes -Procedure Performed Yes -Type of Procedure Debridement -Clinical Debridement Subcutaneous -Post Debridement Size (cm) - Length 1.2 -Post Debridement Size (cm) - Width 0.5 -Post Debridement Size (cm) - Depth 0.1 -Total Square Cm 0.60 -Wound/Ulcer Outcome Not Healed -Ulcer Cleansing Rinsed/ Irrigated with Saline -Foul Odor after Cleansing No -Bioengineered Tissue No -Bleeding Controlled with Pressure -Offloading No -Treatment Response Procedure Tolerated Well #10 left medial LE/ ankle -Time 13:59 -Correct Patient Yes -Correct Side, Site, Position Yes -Correct Procedure Yes -Procedure Performed Yes -Type of Procedure Debridement -Clinical Debridement Subcutaneous -Post Debridement Size (cm) - Length 2.5 -Post Debridement Size (cm) - Width 1.5 -Post Debridement Size (cm) - Depth 0.1 -Total Square Cm 3.75 -Wound/Ulcer Outcome Not Healed -Ulcer Cleansing Wound Cleanser -Foul Odor after Cleansing No -Bioengineered Tissue No -Bleeding Controlled with Pressure -Offloading No -Treatment Response Procedure Tolerated Well #9- L LAT LE/FOOT -Time 13:59 -Correct Patient Yes -Correct Side, Site, Position Yes -Correct Procedure Yes -Procedure Performed No -Post Debridement Size (cm) - Length 0 -Post Debridement Size (cm) - Width 0 -Post Debridement Size (cm) - Depth 0 -Total Square Cm 0 -Wound/Ulcer Outcome Healed- Epithelialized Pain Scale: 0-10 Numeric Is Patient Pain Free? Yes Wound debrided: Left lower extremity ulcer Laterality: Left Type of Debridement: Excisional debridement Anesthesia Used: 5% Lidocaine Gel Depth: in the subcutaneous layer Percentage of wound debrided: 100 Instrument Used: 5mm curette Tissue Removed: Slough and devitalized tissue Severity: Fat Layer Exposed Amount of bleeding with debridement: Mild Bleeding Controlled with: Pressure Patient tolerated procedure well Assessment/Plan Assessment: Same as above. Plan: Courtesy visit?Debridement done as documented above, procedure was well- tolerated. Given the multiple small excoriations, will trial patient on Unna boots bilaterally.. Change on Friday and by [facility]. Patient is currently home bound and uses a walker due to unsteady gait. Continues to require Home health care. . Continue use of lymphedema pump. Compliance encouraged. Continue leg elevation, increase protein intake, exercise as tolerated and avoid idle standing. His questions were answered and he was advised to call with any further questions or concerns. Follow-up in 2 weeks. Code Visit [id number]: [id number] Shelbi subq tissue 20 sq cm/<
[2019-05-20 10:00] VITALS: BP 130/63; PULSE 92; RESP 18; TEMP 36.7; BMI 44.9
--- NOTE | 2019-05-20 12:37 | PCM.WC.PN ---
(1) Ulcer of left lower extremity with fat layer exposed Status: Acute Current Visit: Yes Code(s): L97.922 - Non-pressure chronic ulcer of unspecified part of left lower leg with fat layer exposed (2) Ulcer of right lower extremity with fat layer exposed Status: Acute Current Visit: Yes Code(s): L97.912 - Non-pressure chronic ulcer of unspecified part of right lower leg with fat layer exposed (3) Lymphedema of both lower extremities Status: Chronic Current Visit: Yes Code(s): I89.0 - Lymphedema, not elsewhere classified Type of Wound Date of Service: 05/20/19 Chief Complaint: Left lower extremity ulcer. History of Wound: Mr. Russell is a 69yo well-known to the wound center who presents due to new left lower extremity ulcer. Presented to the emergency room due to concern for cellulitis on Friday. He was diagnosed with cellulitis and per patient he was given a day of IV antibiotics and discharged on Keflex. Pain, redness and drainage have improved. He subsequently followed up here for ulcer care/management. He denies chills, fever or otherwise feeling of unwell. Progress of Wound: Right leg ulcer is healed. Worsening left medial lower leg ulcer. Patient also reports worsening pain and drainage. Denies chills, fever but states that he feels unwell. - Physical Exam Vital Signs Temp Pulse Resp BP 98.1 F 92 18 130/63 H 05/20/19 10:00 05/20/19 10:00 05/20/19 10:00 05/20/19 10:00 General: Alert, Oriented x3, Cooperative, No apparent distress HEENT: Atraumatic, Normocephalic Oral: Moist Mucosa Neck: Supple Lungs: Normal air movement Abdomen: Non Tender, Obese Extremities: Edema Skin: Ulcer/ Wound Wound Measurements and Assessment WC - Nurse 1 - General Ulcer Measurement Start: 05/13/19 13:33 Freq: Status: Active Protocol: Activity Type Activity Date Activity User E-Sign Co-Sign Detail Recorded Client Recorded Date Recorded By Document 05/20/19 10:00 RB [id number] 05/20/19 10:14 RB 05/20/19 10:00 Wound Center Nurse 1 [Ulcer Assessment] 11 right medial LE cluster -Combined with other wound No -Current Size (cm) - Length 0.1 -Current Size (cm) - Width 0.1 -Current Size (cm) - Depth 0.1 -Total Square Cm 0.01 -Tunneling No -Undermining/Tunneling No -Circular Undermining No -Exudate Amt None Present -Wound Margin Flat & Intact -Granulation Amt Large (67-100%) -Granulation Quality [place] -Slough/Fibrin No -Necrosis Amt None Present (0 %) -Structure Exposed N/A -Texture (Jaylyn-wound Skin Appearance) Assessed, Localized Edema -Moisture (Jaylyn-wound Skin Appearance Assessed ) -Color (Jaylyn-wound Skin Appearance) Assessed -Temperature (Jaylyn-wound Skin No Abnormality Appearance) (Pt Warm) -Tenderness on Palpation (Jaylyn-wound No Skin Appearance) -Ulcer Cleansing Rinsed/ Irrigated with Saline -Foul Odor after Cleansing No -Anesthetic Used 4% Lidocaine Solution #10 left medial LE/ ankle -Current Size (cm) - Length 10 -Current Size (cm) - Width 15 -Current Size (cm) - Depth 0.1 -Total Square Cm 150 -Tunneling No -Undermining/Tunneling No -Circular Undermining No -Exudate Amt Large -Exudate Type Serosanguineous -Wound Margin Flat & Intact -Granulation Amt Medium (34-66%) -Granulation Quality [place] -Slough/Fibrin Yes -Necrosis Amt Medium (34-66%) -Necrotic Tissue Type Adherent Slough -Structure Exposed N/A -Texture (Jaylyn-wound Skin Appearance) Assessed, Excoriation, Localized Edema -Moisture (Jaylyn-wound Skin Appearance Weeping ) -Color (Jaylyn-wound Skin Appearance) Assessed -Temperature (Jaylyn-wound Skin No Abnormality Appearance) (Pt Warm) -Tenderness on Palpation (Jaylyn-wound No Skin Appearance) -Ulcer Cleansing Wound Cleanser -Foul Odor after Cleansing No -Anesthetic Used 4% Lidocaine Solution [Edema Assessment] -Lower Limb Edema Present Yes -Right Calf (cm) 44 -Right Ankle (cm) 33 -Left Calf (cm) 52.2 -Left Ankle (cm) 34.5 WC - Nurse 2 - General Ulcer CM Notes Start: 05/13/19 13:33 Freq: Status: Active Protocol: Activity Type Activity Date Activity User E-Sign Co-Sign Detail Recorded Client Recorded Date Recorded By Document 05/20/19 10:44 MW [id number] 01/09/20 10:47 MW 05/20/19 10:44 Wound Center Nurse 2 [Procedure/Treatment] 11 right medial LE cluster -Time 10:44 -Correct Patient Yes -Correct Side, Site, Position Yes -Correct Procedure Yes -Procedure Performed No -Post Debridement Size (cm) - Length 0 -Post Debridement Size (cm) - Width 0 -Post Debridement Size (cm) - Depth 0 -Total Square Cm 0 -Wound/Ulcer Outcome Healed- Epithelialized #10 left medial LE/ ankle -Time 10:46 -Correct Patient Yes -Correct Side, Site, Position Yes -Correct Procedure Yes -Procedure Performed No -Wound/Ulcer Outcome Not Healed -Ulcer Cleansing Not Cleansed -Foul Odor after Cleansing No -Bleeding Controlled with NA -Offloading No -Treatment Response Procedure Tolerated Well [See Physician Procedure note for Specifics] Pain Scale: 0-10 Numeric [Pain] -Is Patient Pain Free? Yes Musculoskeletal: No Muscle Wasting Neurological: Cranial nerves II-XII grossly intact Psych/Mental Status: Normal Affect Debridement Note Post-Debridement Measurements/Treatment WC - Nurse 2 - General Ulcer CM Notes Start: 05/13/19 13:33 Freq: Status: Active Protocol: Activity Type Activity Date Activity User E-Sign Co-Sign Detail Recorded Client Recorded Date Recorded By Document 05/13/19 13:58 MW [id number] 05/13/19 14:03 MW Document 05/20/19 10:44 MW [id number] 05/20/19 10:47 MW 05/13/19 05/20/19 13:58 10:44 Wound Center Nurse 2 11 right medial LE cluster -Time 13:58 10:44 -Correct Patient Yes Yes -Correct Side, Site, Position Yes Yes -Correct Procedure Yes Yes -Procedure Performed Yes No -Type of Procedure Debridement -Clinical Debridement Subcutaneous -Post Debridement Size (cm) - Length 1.2 0 -Post Debridement Size (cm) - Width 0.5 0 -Post Debridement Size (cm) - Depth 0.1 0 -Total Square Cm 0.60 0 -Wound/Ulcer Outcome Not Healed Healed- Epithelialized -Ulcer Cleansing Rinsed/ Irrigated with Saline -Foul Odor after Cleansing No -Bioengineered Tissue No -Bleeding Controlled with Pressure -Offloading No -Treatment Response Procedure Tolerated Well #10 left medial LE/ ankle -Time 13:59 10:46 -Correct Patient Yes Yes -Correct Side, Site, Position Yes Yes -Correct Procedure Yes Yes -Procedure Performed Yes No -Type of Procedure Debridement -Clinical Debridement Subcutaneous -Post Debridement Size (cm) - Length 2.5 -Post Debridement Size (cm) - Width 1.5 -Post Debridement Size (cm) - Depth 0.1 -Total Square Cm 3.75 -Wound/Ulcer Outcome Not Healed Not Healed -Ulcer Cleansing Wound Cleanser Not Cleansed -Foul Odor after Cleansing No No -Bioengineered Tissue No -Bleeding Controlled with Pressure NA -Offloading No No -Treatment Response Procedure Procedure Tolerated Well Tolerated Well #9- L LAT LE/FOOT -Time 13:59 -Correct Patient Yes -Correct Side, Site, Position Yes -Correct Procedure Yes -Procedure Performed No -Post Debridement Size (cm) - Length 0 -Post Debridement Size (cm) - Width 0 -Post Debridement Size (cm) - Depth 0 -Total Square Cm 0 -Wound/Ulcer Outcome Healed- Epithelialized Pain Scale: 0-10 Numeric Is Patient Pain Free? Yes Yes No debridement was completed today Assessment/Plan Active Problems (Last Reviewed 08/17/18 @ 15:02 by Benita Hong) Ulcer of left lower extremity with fat layer exposed (Acute) Lymphedema of both lower extremities (Chronic) Ulcer of right lower extremity with fat layer exposed (Acute) Assessment: Same as above. Plan: Debridement not done today due to pain as above. Right leg ulcer is healed. Will manage for possible left leg cellulitis. Prescription for Keflex and doxycycline sent. Had used this in the past successfully. Xeroform with ABD over top to left leg. 3M wraps bilateral. Change on Friday and Friday by [facility]. Patient is currently home bound and uses a walker due to unsteady gait. Continues to require Home health care. . Continue use of lymphedema pump. Compliance encouraged. Continue leg elevation, increase protein intake, exercise as tolerated and avoid idle standing. His questions were answered and he was advised to call with any further questions or concerns. Follow-up in 1 week. He however was advised to go to the emergency room if symptoms worsen. He expressed understanding. This note was generated with [employer] dictation software. It may contain incorrect words, spelling, and punctuation that were not noted in checking the note before signing. Code Visit Office Visits / Consults: [id number] OV L3 Est
[2019-05-27 08:40] VITALS: BP 134/70; PULSE 83; RESP 16; TEMP 36.5; BMI 44.9
--- NOTE | 2019-05-27 11:17 | PN.PCM_ITS ---
(1) Ulcer of left lower extremity with fat layer exposed Status: Acute Current Visit: Yes Code(s): L97.922 - Non-pressure chronic ulcer of unspecified part of left lower leg with fat layer exposed (2) Ulcer of right lower extremity with fat layer exposed Status: Resolved Current Visit: Yes Code(s): L97.912 - Non-pressure chronic ulcer of unspecified part of right lower leg with fat layer exposed (3) Lymphedema of both lower extremities Status: Chronic Current Visit: Yes Code(s): I89.0 - Lymphedema, not elsewhere classified Type of Wound Date of Service: 05/27/19 Chief Complaint: Left lower extremity ulcer. History of Wound: Mr. Russell is a 69yo well-known to the wound center who presents due to new left lower extremity ulcer. Presented to the emergency room due to concern for cellulitis on Friday. He was diagnosed with cellulitis and per patient he was given a day of IV antibiotics and discharged on Keflex. Pain, redness and drainage have improved. He subsequently followed up here for ulcer care/management. He denies chills, fever or otherwise feeling of unwell. Progress of Wound: Right leg ulcer stays healed however, presents with a new right medial wound/ulcer. He is unsure of the precipitating factor but ocassionally uses a scissors to cut his wraps and wonders if he cut himself in the process. Left leg pain has improved on antibiotics. Still has significant drainage. - Physical Exam Vital Signs Temp Pulse Resp BP 97.7 F L 83 16 134/70 H 05/27/19 08:40 05/27/19 08:40 05/27/19 08:40 05/27/19 08:40 General: Alert, Oriented x3, Cooperative, No apparent distress HEENT: Atraumatic, Normocephalic Oral: Moist Mucosa Neck: Supple Lungs: Normal air movement Abdomen: Non Tender, Obese Extremities: No cyanosis, Edema Skin: Ulcer/ Wound Wound Measurements and Assessment WC - Nurse 1 - General Ulcer Measurement Start: 05/13/19 13:33 Freq: Status: Active Protocol: Activity Type Activity Date Activity User E-Sign Co-Sign Detail Recorded Client Recorded Date Recorded By Document 05/27/19 08:40 JIM [id number] 05/27/19 08:50 JIM 05/27/19 08:40 Wound Center Nurse 1 [Ulcer Assessment] #14 left lateral luz cluster -Combined with other wound No -Current Size (cm) - Length 0.6 -Current Size (cm) - Width 0.7 -Current Size (cm) - Depth 0.2 -Total Square Cm 0.42 -Photo Taken Yes -Epithelialization Small 1-33% -Tunneling No -Undermining/Tunneling No -Circular Undermining No -Exudate Amt Medium -Exudate Type Serosanguineous -Wound Margin Flat & Intact -Granulation Amt Medium (34-66%) -Granulation Quality [place] -Slough/Fibrin Yes -Necrosis Amt Medium (34-66%) -Necrotic Tissue Type Adherent Slough -Structure Exposed N/A -Texture (Jaylyn-wound Skin Appearance) Assessed, Induration, Localized Edema -Moisture (Jaylyn-wound Skin Appearance Assessed,Dry/ ) Scaly -Color (Jaylyn-wound Skin Appearance) Assessed, Hemosiderin Staining -Temperature (Jaylyn-wound Skin No Abnormality Appearance) (Pt Warm) -Tenderness on Palpation (Jaylyn-wound No Skin Appearance) -Ulcer Cleansing Wound Cleanser -Foul Odor after Cleansing No -Anesthetic Used 4% Lidocaine Solution 13-left medial luz -Combined with other wound No -Current Size (cm) - Length 0.5 -Current Size (cm) - Width 0.8 -Current Size (cm) - Depth 0.1 -Total Square Cm 0.40 -Photo Taken Yes -Epithelialization Small 1-33% -Tunneling No -Undermining/Tunneling No -Circular Undermining No -Exudate Amt Small -Exudate Type Serosanguineous -Wound Margin Flat & Intact -Granulation Amt Medium (34-66%) -Granulation Quality Red -Slough/Fibrin Yes -Necrosis Amt Medium (34-66%) -Necrotic Tissue Type Adherent Slough -Structure Exposed N/A -Texture (Jaylyn-wound Skin Appearance) Assessed, Induration, Localized Edema -Moisture (Jaylyn-wound Skin Appearance Assessed,Dry/ ) Scaly -Color (Jaylyn-wound Skin Appearance) Assessed, Hemosiderin Staining -Temperature (Jaylyn-wound Skin No Abnormality Appearance) (Pt Warm) -Tenderness on Palpation (Jaylyn-wound No Skin Appearance) -Ulcer Cleansing Wound Cleanser -Foul Odor after Cleansing No -Anesthetic Used 4% Lidocaine Solution 12-left lower luz -Combined with other wound No -Photo Taken Yes -Epithelialization Small 1-33% -Tunneling No -Undermining/Tunneling No -Circular Undermining No -Exudate Amt Medium -Exudate Type Serosanguineous -Wound Margin Flat & Intact -Granulation Amt Medium (34-66%) -Granulation Quality Red -Slough/Fibrin Yes -Necrosis Amt Small (1-33%) -Necrotic Tissue Type Adherent Slough -Structure Exposed N/A -Texture (Jaylyn-wound Skin Appearance) Assessed, Induration, Localized Edema -Moisture (Jaylyn-wound Skin Appearance Assessed,Dry/ ) Scaly -Color (Jaylyn-wound Skin Appearance) Assessed, Hemosiderin Staining -Temperature (Jaylyn-wound Skin No Abnormality Appearance) (Pt Warm) -Tenderness on Palpation (Jaylyn-wound No Skin Appearance) -Ulcer Cleansing Wound Cleanser -Foul Odor after Cleansing No -Anesthetic Used 4% Lidocaine Solution #10 left medial LE/ ankle -Combined with other wound No -Current Size (cm) - Length 10.0 -Current Size (cm) - Width 12.0 -Current Size (cm) - Depth 0.1 -Total Square Cm 120.00 -Photo Taken No -Epithelialization Medium 34-66% -Tunneling No -Undermining/Tunneling No -Circular Undermining No -Exudate Amt Large -Exudate Type Serosanguineous -Wound Margin Flat & Intact -Granulation Amt Medium (34-66%) -Granulation Quality [place] -Slough/Fibrin Yes -Necrosis Amt Small (1-33%) -Necrotic Tissue Type Adherent Slough -Structure Exposed N/A -Texture (Jaylyn-wound Skin Appearance) Assessed, Localized Edema -Moisture (Jaylyn-wound Skin Appearance Assessed,Dry/ ) Scaly -Color (Jaylyn-wound Skin Appearance) Assessed, Hemosiderin Staining -Temperature (Jaylyn-wound Skin No Abnormality Appearance) (Pt Warm) -Tenderness on Palpation (Jaylyn-wound No Skin Appearance) -Ulcer Cleansing Wound Cleanser -Foul Odor after Cleansing No -Anesthetic Used 4% Lidocaine Solution [Edema Assessment] -Lower Limb Edema Present Yes -Left Calf (cm) 52.5 -Left Ankle (cm) 33.3 WC - Nurse 2 - General Ulcer CM Notes Start: 05/13/19 13:33 Freq: Status: Active Protocol: Activity Type Activity Date Activity User E-Sign Co-Sign Detail Recorded Client Recorded Date Recorded By Document 05/27/19 09:02 MW [id number] 05/27/19 09:13 MW 05/27/19 09:02 Wound Center Nurse 2 [Procedure/Treatment] #14 left lateral luz cluster -Time 09:05 -Correct Patient Yes -Correct Side, Site, Position Yes -Correct Procedure Yes -Procedure Performed Yes -Type of Procedure Debridement -Clinical Debridement Subcutaneous -Post Debridement Size (cm) - Length 15.0 -Post Debridement Size (cm) - Width 7.0 -Post Debridement Size (cm) - Depth 0.1 -Total Square Cm 105.00 -Wound/Ulcer Outcome Not Healed -Ulcer Cleansing Rinsed/ Irrigated with Saline -Foul Odor after Cleansing No -Bioengineered Tissue No -Bleeding Controlled with Pressure -Offloading No -Treatment Response Procedure Tolerated Well 13-left medial luz -Time 09:09 -Correct Patient Yes -Correct Side, Site, Position Yes -Correct Procedure Yes -Procedure Performed Yes -Type of Procedure Debridement -Clinical Debridement Subcutaneous -Post Debridement Size (cm) - Length 1.5 -Post Debridement Size (cm) - Width 4.0 -Post Debridement Size (cm) - Depth 0.4 -Total Square Cm 6.00 -Wound/Ulcer Outcome Not Healed -Ulcer Cleansing Rinsed/ Irrigated with Saline -Foul Odor after Cleansing No -Bioengineered Tissue No -Bleeding Controlled with Pressure -Offloading No -Treatment Response Procedure Tolerated Well 12-left lower luz -Time 09:08 -Correct Patient Yes -Correct Side, Site, Position Yes -Correct Procedure Yes -Procedure Performed No -Post Debridement Size (cm) - Length 0 -Post Debridement Size (cm) - Width 0 -Post Debridement Size (cm) - Depth 0 -Total Square Cm 0 -Wound/Ulcer Outcome Healed- Epithelialized #10 left medial LE/ ankle -Time 09:09 -Correct Patient Yes -Correct Side, Site, Position Yes -Correct Procedure Yes -Procedure Performed Yes -Type of Procedure Debridement -Clinical Debridement Subcutaneous -Post Debridement Size (cm) - Length 11.0 -Post Debridement Size (cm) - Width 7.0 -Post Debridement Size (cm) - Depth 0.1 -Total Square Cm 77.00 -Wound/Ulcer Outcome Not Healed -Ulcer Cleansing Rinsed/ Irrigated with Saline -Foul Odor after Cleansing No -Bioengineered Tissue No -Bleeding Controlled with Pressure -Offloading No -Treatment Response Procedure Tolerated Well [See Physician Procedure note for Specifics] Pain Scale: 0-10 Numeric [Pain] -Is Patient Pain Free? Yes Musculoskeletal: No Muscle Wasting Neurological: Cranial nerves II-XII grossly intact Psych/Mental Status: Normal Affect Debridement Note Post-Debridement Measurements/Treatment WC - Nurse 2 - General Ulcer CM Notes Start: 05/13/19 13:33 Freq: Status: Active Protocol: Activity Type Activity Date Activity User E-Sign Co-Sign Detail Recorded Client Recorded Date Recorded By Document 05/13/19 13:58 MW [id number] 05/13/19 14:03 MW Document 05/20/19 10:44 MW [id number] 05/20/19 10:47 MW Document 05/27/19 09:02 MW [id number] 05/27/19 09:13 MW 05/13/19 05/20/19 05/27/19 13:58 10:44 09:02 Wound Center Nurse 2 #14 left lateral luz cluster -Time 09:05 -Correct Patient Yes -Correct Side, Site, Position Yes -Correct Procedure Yes -Procedure Performed Yes -Type of Procedure Debridement -Clinical Debridement Subcutaneous -Post Debridement Size (cm) - Length 15.0 -Post Debridement Size (cm) - Width 7.0 -Post Debridement Size (cm) - Depth 0.1 -Total Square Cm 105.00 -Wound/Ulcer Outcome Not Healed -Ulcer Cleansing Rinsed/ Irrigated with Saline -Foul Odor after Cleansing No -Bioengineered Tissue No -Bleeding Controlled with Pressure -Offloading No -Treatment Response Procedure Tolerated Well 13-left medial luz -Time 09:09 -Correct Patient Yes -Correct Side, Site, Position Yes -Correct Procedure Yes -Procedure Performed Yes -Type of Procedure Debridement -Clinical Debridement Subcutaneous -Post Debridement Size (cm) - Length 1.5 -Post Debridement Size (cm) - Width 4.0 -Post Debridement Size (cm) - Depth 0.4 -Total Square Cm 6.00 -Wound/Ulcer Outcome Not Healed -Ulcer Cleansing Rinsed/ Irrigated with Saline -Foul Odor after Cleansing No -Bioengineered Tissue No -Bleeding Controlled with Pressure -Offloading No -Treatment Response Procedure Tolerated Well 12-left lower luz -Time 09:08 -Correct Patient Yes -Correct Side, Site, Position Yes -Correct Procedure Yes -Procedure Performed No -Post Debridement Size (cm) - Length 0 -Post Debridement Size (cm) - Width 0 -Post Debridement Size (cm) - Depth 0 -Total Square Cm 0 -Wound/Ulcer Outcome Healed- Epithelialized 11 right medial LE cluster -Time 13:58 10:44 -Correct Patient Yes Yes -Correct Side, Site, Position Yes Yes -Correct Procedure Yes Yes -Procedure Performed Yes No -Type of Procedure Debridement -Clinical Debridement Subcutaneous -Post Debridement Size (cm) - Length 1.2 0 -Post Debridement Size (cm) - Width 0.5 0 -Post Debridement Size (cm) - Depth 0.1 0 -Total Square Cm 0.60 0 -Wound/Ulcer Outcome Not Healed Healed- Epithelialized -Ulcer Cleansing Rinsed/ Irrigated with Saline -Foul Odor after Cleansing No -Bioengineered Tissue No -Bleeding Controlled with Pressure -Offloading No -Treatment Response Procedure Tolerated Well #10 left medial LE/ ankle -Time 13:59 10:46 09:09 -Correct Patient Yes Yes Yes -Correct Side, Site, Position Yes Yes Yes -Correct Procedure Yes Yes Yes -Procedure Performed Yes No Yes -Type of Procedure Debridement Debridement -Clinical Debridement Subcutaneous Subcutaneous -Post Debridement Size (cm) - Length 2.5 11.0 -Post Debridement Size (cm) - Width 1.5 7.0 -Post Debridement Size (cm) - Depth 0.1 0.1 -Total Square Cm 3.75 77.00 -Wound/Ulcer Outcome Not Healed Not Healed Not Healed -Ulcer Cleansing Wound Cleanser Not Cleansed Rinsed/ Irrigated with Saline -Foul Odor after Cleansing No No No -Bioengineered Tissue No No -Bleeding Controlled with Pressure NA Pressure -Offloading No No No -Treatment Response Procedure Procedure Procedure Tolerated Well Tolerated Well Tolerated Well #9- L LAT LE/FOOT -Time 13:59 -Correct Patient Yes -Correct Side, Site, Position Yes -Correct Procedure Yes -Procedure Performed No -Post Debridement Size (cm) - Length 0 -Post Debridement Size (cm) - Width 0 -Post Debridement Size (cm) - Depth 0 -Total Square Cm 0 -Wound/Ulcer Outcome Healed- Epithelialized Pain Scale: 0-10 Numeric Is Patient Pain Free? Yes Yes Yes Wound debrided: Left Leg ( Medial ) Type of Debridement: Excisional debridement Anesthesia Used: 4% Lidocaine Solution Depth: Down to and including healthy tissue, in the subcutaneous layer Percentage of wound debrided: 100 Instrument Used: 5mm curette Tissue Removed: Slough and devitalized tissue Severity: Fat Layer Exposed Amount of bleeding with debridement: Mild Bleeding Controlled with: Pressure Patient tolerated procedure well - Additional Wound Wound debrided: Left medial ankle Type of Debridement: Excisional debridement Anesthesia Used: 4% Lidocaine Solution Depth: Down to and including healthy tissue, in the subcutaneous layer Percentage of wound debrided: 100 Instrument Used: 5mm curette Tissue Removed: Slough and devitalized tissue Severity: Fat Layer Exposed Amount of bleeding with debridement: Mild Bleeding Controlled with: Pressure Patient tolerated procedure: Patient tolerated procedure well - Additional Wound Wound debrided: Left Leg ( lateral ) Type of Debridement: Excisional debridement Anesthesia Used: 4% Lidocaine Solution Depth: Down to and including healthy tissue, in the subcutaneous layer Percentage of wound debrided: 100 Instrument Used: 7mm curette Tissue Removed: Slough and devitalized tissue Severity: Fat Layer Exposed Amount of bleeding with debridement: Mild Bleeding Controlled with: Pressure Patient tolerated procedure: Patient tolerated procedure well Assessment/Plan Active Problems (Last Reviewed 08/17/18 @ 15:02 by Benita Hong) Ulcer of left lower extremity with fat layer exposed (Acute) Lymphedema of both lower extremities (Chronic) Assessment: Left medial ankle ulcer. Left Medial leg ulcer and Left lateral leg ulcer. Chronic Lymphedema. Plan: New left medial leg ulcer/wound. Debridement done as documented above, procedure was well tolerated. Switch to Aquacel extra due to significant drainage. 3M wraps bilateral. Change on Friday and Friday by [facility]. Patient is currently home bound and uses a walker due to unsteady gait. Continues to require Home health care. . Continue use of lymphedema pump. Increase to 50 mmHG. Compliance encouraged. Continue leg elevation, increased protein intake, exercise as tolerated and avoid idle standing. His questions were answered and he was advised to call with any further questions or concerns. Follow-up in 1 week. He however was advised to go to the emergency room if symptoms worsen. He expressed understanding. This note was generated with [employer] dictation software. It may contain incorrect words, spelling, and punctuation that were not noted in checking the note before signing. Code Visit [id number]: [id number] Shelbi subq tissue 20 sq cm/< - Additional Sq CM debrided. Please refer to clinical note.
[2019-06-03 09:32] VITALS: BP 121/90; PULSE 91; RESP 18; TEMP 37.1; BMI 44.9
--- NOTE | 2019-06-03 12:28 | PN.PCM_ITS ---
(1) Ulcer of left lower extremity with fat layer exposed Status: Acute Current Visit: Yes Code(s): L97.922 - Non-pressure chronic ulcer of unspecified part of left lower leg with fat layer exposed (2) Ulcer of right lower extremity with fat layer exposed Status: Resolved Current Visit: Yes Code(s): L97.912 - Non-pressure chronic ulcer of unspecified part of right lower leg with fat layer exposed (3) Lymphedema of both lower extremities Status: Chronic Current Visit: Yes Code(s): I89.0 - Lymphedema, not elsewhere classified Type of Wound Date of Service: 06/03/19 Chief Complaint: Left lower extremity ulcer. History of Wound: Mr. Russell is a 69yo well-known to the wound center who presents due to new left lower extremity ulcer. Presented to the emergency room due to concern for cellulitis on Friday. He was diagnosed with cellulitis and per patient he was given a day of IV antibiotics and discharged on Keflex. Pain, redness and drainage have improved. He subsequently followed up here for ulcer care/management. He denies chills, fever or otherwise feeling of unwell. Progress of Wound: No significant improvement. Patient admits that he has not been compliant with his lymphedema pump. - Physical Exam Vital Signs Temp Pulse Resp BP 98.7 F 91 18 121/90 H 06/03/19 09:32 06/03/19 09:32 06/03/19 09:32 06/03/19 09:32 General: Alert, Oriented x3, Cooperative, No apparent distress HEENT: Atraumatic, Normocephalic Oral: Moist Mucosa Neck: Supple Lungs: Normal air movement Abdomen: Non Tender, Obese Extremities: No cyanosis, Edema Skin: Ulcer/ Wound Wound Measurements and Assessment WC - Nurse 1 - General Ulcer Measurement Start: 05/13/19 13:33 Freq: Status: Active Protocol: Activity Type Activity Date Activity User E-Sign Co-Sign Detail Recorded Client Recorded Date Recorded By Document 06/03/19 09:32 JIM [id number] 06/03/19 09:37 JIM 06/03/19 09:32 Wound Center Nurse 1 [Ulcer Assessment] #14 left lateral luz cluster -Combined with other wound No -Current Size (cm) - Length 9.5 -Current Size (cm) - Width 1.0 -Current Size (cm) - Depth 0.2 -Total Square Cm 9.50 -Photo Taken No -Epithelialization Small 1-33% -Tunneling No -Undermining/Tunneling No -Circular Undermining No -Exudate Amt Large -Exudate Type Serosanguineous -Wound Margin Flat & Intact -Granulation Amt Large (67-100%) -Granulation Quality Red -Slough/Fibrin Yes -Necrosis Amt Small (1-33%) -Necrotic Tissue Type Adherent Slough -Structure Exposed N/A -Texture (Jaylyn-wound Skin Appearance) Assessed, Excoriation, Induration, Localized Edema -Moisture (Jaylyn-wound Skin Appearance Assessed, ) Weeping -Color (Jaylyn-wound Skin Appearance) Assessed -Temperature (Jayyln-wound Skin No Abnormality Appearance) (Pt Warm) -Tenderness on Palpation (Jaylyn-wound Yes Skin Appearance) -Ulcer Cleansing Wound Cleanser -Foul Odor after Cleansing No -Anesthetic Used 4% Lidocaine Solution 13-left medial luz -Combined with other wound No -Current Size (cm) - Length 0.4 -Current Size (cm) - Width 0.2 -Current Size (cm) - Depth 0.2 -Total Square Cm 0.08 -Photo Taken No -Epithelialization Small 1-33% -Tunneling No -Undermining/Tunneling No -Circular Undermining No -Exudate Amt Small -Exudate Type Serosanguineous -Wound Margin Flat & Intact -Granulation Amt Small (1-33%) -Granulation Quality Red -Slough/Fibrin Yes -Necrosis Amt Medium (34-66%) -Necrotic Tissue Type Adherent Slough -Structure Exposed N/A -Texture (Jaylyn-wound Skin Appearance) Assessed, Excoriation, Localized Edema -Moisture (Jaylyn-wound Skin Appearance Assessed, ) Maceration, Weeping -Color (Jaylyn-wound Skin Appearance) Assessed, Hemosiderin Staining -Temperature (Jaylyn-wound Skin No Abnormality Appearance) (Pt Warm) -Tenderness on Palpation (Jaylyn-wound No Skin Appearance) -Ulcer Cleansing Wound Cleanser -Foul Odor after Cleansing No -Anesthetic Used 4% Lidocaine Solution #10 left medial LE/ ankle -Combined with other wound No -Current Size (cm) - Length 8 -Current Size (cm) - Width 6 -Current Size (cm) - Depth 0.1 -Total Square Cm 48 -Photo Taken No -Epithelialization Small 1-33% -Tunneling No -Undermining/Tunneling No -Circular Undermining No -Exudate Amt Large -Exudate Type Serosanguineous -Wound Margin Flat & Intact -Granulation Amt Large (67-100%) -Granulation Quality Red -Slough/Fibrin Yes -Necrosis Amt Small (1-33%) -Necrotic Tissue Type Adherent Slough -Structure Exposed N/A -Texture (Jaylyn-wound Skin Appearance) Assessed, Excoriation, Localized Edema -Moisture (Jaylyn-wound Skin Appearance Assessed, ) Maceration, Weeping -Color (Jaylyn-wound Skin Appearance) Assessed, Hemosiderin Staining -Temperature (Jaylyn-wound Skin No Abnormality Appearance) (Pt Warm) -Tenderness on Palpation (Jaylyn-wound No Skin Appearance) -Ulcer Cleansing Wound Cleanser -Foul Odor after Cleansing No -Anesthetic Used 4% Lidocaine Solution [Edema Assessment] -Lower Limb Edema Present Yes -Right Calf (cm) 43.3 -Right Ankle (cm) 21.0 -Left Calf (cm) 53.7 -Left Ankle (cm) 34.0 WC - Nurse 2 - General Ulcer CM Notes Start: 05/13/19 13:33 Freq: Status: Active Protocol: Activity Type Activity Date Activity User E-Sign Co-Sign Detail Recorded Client Recorded Date Recorded By Document 06/03/19 09:56 MW [id number] 06/03/19 10:05 MW 06/03/19 09:56 Wound Center Nurse 2 [Procedure/Treatment] #14 left lateral luz cluster -Time 09:56 -Correct Patient Yes -Correct Side, Site, Position Yes -Correct Procedure Yes -Procedure Performed Yes -Type of Procedure Debridement -Clinical Debridement Subcutaneous -Post Debridement Size (cm) - Length 15.0 -Post Debridement Size (cm) - Width 10.0 -Post Debridement Size (cm) - Depth 0.1 -Total Square Cm 150.00 -Wound/Ulcer Outcome Not Healed -Ulcer Cleansing Rinsed/ Irrigated with Saline -Foul Odor after Cleansing No -Bioengineered Tissue No -Bleeding Controlled with Pressure -Offloading No -Treatment Response Procedure Tolerated Well 13-left medial luz -Time 09:57 -Correct Patient Yes -Correct Side, Site, Position Yes -Correct Procedure Yes -Procedure Performed Yes -Type of Procedure Debridement -Clinical Debridement Subcutaneous -Post Debridement Size (cm) - Length 1.0 -Post Debridement Size (cm) - Width 3.0 -Post Debridement Size (cm) - Depth 0.4 -Total Square Cm 3.00 -Wound/Ulcer Outcome Not Healed -Ulcer Cleansing Rinsed/ Irrigated with Saline -Foul Odor after Cleansing No -Bioengineered Tissue No -Bleeding Controlled with Pressure -Offloading No -Treatment Response Procedure Tolerated Well #10 left medial LE/ ankle -Time 09:57 -Correct Patient Yes -Correct Side, Site, Position Yes -Correct Procedure Yes -Procedure Performed Yes -Type of Procedure Debridement -Clinical Debridement Subcutaneous -Post Debridement Size (cm) - Length 8.0 -Post Debridement Size (cm) - Width 7.0 -Post Debridement Size (cm) - Depth 0.1 -Total Square Cm 56.00 -Wound/Ulcer Outcome Not Healed -Ulcer Cleansing Rinsed/ Irrigated with Saline -Foul Odor after Cleansing No -Bioengineered Tissue No -Bleeding Controlled with Pressure -Offloading No -Treatment Response Procedure Tolerated Well [See Physician Procedure note for Specifics] Pain Scale: 0-10 Numeric [Pain] -Is Patient Pain Free? Yes Musculoskeletal: No Muscle Wasting Neurological: Cranial nerves II-XII grossly intact Psych/Mental Status: Normal Affect Debridement Note Post-Debridement Measurements/Treatment WC - Nurse 2 - General Ulcer CM Notes Start: 05/13/19 13:33 Freq: Status: Active Protocol: Activity Type Activity Date Activity User E-Sign Co-Sign Detail Recorded Client Recorded Date Recorded By Document 05/13/19 13:58 MW [id number] 05/13/19 14:03 MW Document 05/20/19 10:44 MW [id number] 05/20/19 10:47 MW Document 05/27/19 09:02 MW [id number] 05/27/19 09:13 MW Document 06/03/19 09:56 MW [id number] 06/03/19 10:05 MW 05/13/19 05/20/19 05/27/19 13:58 10:44 09:02 Wound Center Nurse 2 #14 left lateral luz cluster -Time 09:05 -Correct Patient Yes -Correct Side, Site, Position Yes -Correct Procedure Yes -Procedure Performed Yes -Type of Procedure Debridement -Clinical Debridement Subcutaneous -Post Debridement Size (cm) - Length 15.0 -Post Debridement Size (cm) - Width 7.0 -Post Debridement Size (cm) - Depth 0.1 -Total Square Cm 105.00 -Wound/Ulcer Outcome Not Healed -Ulcer Cleansing Rinsed/ Irrigated with Saline -Foul Odor after Cleansing No -Bioengineered Tissue No -Bleeding Controlled with Pressure -Offloading No -Treatment Response Procedure Tolerated Well 13-left medial luz -Time 09:09 -Correct Patient Yes -Correct Side, Site, Position Yes -Correct Procedure Yes -Procedure Performed Yes -Type of Procedure Debridement -Clinical Debridement Subcutaneous -Post Debridement Size (cm) - Length 1.5 -Post Debridement Size (cm) - Width 4.0 -Post Debridement Size (cm) - Depth 0.4 -Total Square Cm 6.00 -Wound/Ulcer Outcome Not Healed -Ulcer Cleansing Rinsed/ Irrigated with Saline -Foul Odor after Cleansing No -Bioengineered Tissue No -Bleeding Controlled with Pressure -Offloading No -Treatment Response Procedure Tolerated Well 12-left lower luz -Time 09:08 -Correct Patient Yes -Correct Side, Site, Position Yes -Correct Procedure Yes -Procedure Performed No -Post Debridement Size (cm) - Length 0 -Post Debridement Size (cm) - Width 0 -Post Debridement Size (cm) - Depth 0 -Total Square Cm 0 -Wound/Ulcer Outcome Healed- Epithelialized 11 right medial LE cluster -Time 13:58 10:44 -Correct Patient Yes Yes -Correct Side, Site, Position Yes Yes -Correct Procedure Yes Yes -Procedure Performed Yes No -Type of Procedure Debridement -Clinical Debridement Subcutaneous -Post Debridement Size (cm) - Length 1.2 0 -Post Debridement Size (cm) - Width 0.5 0 -Post Debridement Size (cm) - Depth 0.1 0 -Total Square Cm 0.60 0 -Wound/Ulcer Outcome Not Healed Healed- Epithelialized -Ulcer Cleansing Rinsed/ Irrigated with Saline -Foul Odor after Cleansing No -Bioengineered Tissue No -Bleeding Controlled with Pressure -Offloading No -Treatment Response Procedure Tolerated Well #10 left medial LE/ ankle -Time 13:59 10:46 09:09 -Correct Patient Yes Yes Yes -Correct Side, Site, Position Yes Yes Yes -Correct Procedure Yes Yes Yes -Procedure Performed Yes No Yes -Type of Procedure Debridement Debridement -Clinical Debridement Subcutaneous Subcutaneous -Post Debridement Size (cm) - Length 2.5 11.0 -Post Debridement Size (cm) - Width 1.5 7.0 -Post Debridement Size (cm) - Depth 0.1 0.1 -Total Square Cm 3.75 77.00 -Wound/Ulcer Outcome Not Healed Not Healed Not Healed -Ulcer Cleansing Wound Cleanser Not Cleansed Rinsed/ Irrigated with Saline -Foul Odor after Cleansing No No No -Bioengineered Tissue No No -Bleeding Controlled with Pressure NA Pressure -Offloading No No No -Treatment Response Procedure Procedure Procedure Tolerated Well Tolerated Well Tolerated Well #9- L LAT LE/FOOT -Time 13:59 -Correct Patient Yes -Correct Side, Site, Position Yes -Correct Procedure Yes -Procedure Performed No -Post Debridement Size (cm) - Length 0 -Post Debridement Size (cm) - Width 0 -Post Debridement Size (cm) - Depth 0 -Total Square Cm 0 -Wound/Ulcer Outcome Healed- Epithelialized Pain Scale: 0-10 Numeric Is Patient Pain Free? Yes Yes Yes 06/03/19 09:56 Wound Center Nurse 2 #14 left lateral luz cluster -Time 09:56 -Correct Patient Yes -Correct Side, Site, Position Yes -Correct Procedure Yes -Procedure Performed Yes -Type of Procedure Debridement -Clinical Debridement Subcutaneous -Post Debridement Size (cm) - Length 15.0 -Post Debridement Size (cm) - Width 10.0 -Post Debridement Size (cm) - Depth 0.1 -Total Square Cm 150.00 -Wound/Ulcer Outcome Not Healed -Ulcer Cleansing Rinsed/ Irrigated with Saline -Foul Odor after Cleansing No -Bioengineered Tissue No -Bleeding Controlled with Pressure -Offloading No -Treatment Response Procedure Tolerated Well 13-left medial luz -Time 09:57 -Correct Patient Yes -Correct Side, Site, Position Yes -Correct Procedure Yes -Procedure Performed Yes -Type of Procedure Debridement -Clinical Debridement Subcutaneous -Post Debridement Size (cm) - Length 1.0 -Post Debridement Size (cm) - Width 3.0 -Post Debridement Size (cm) - Depth 0.4 -Total Square Cm 3.00 -Wound/Ulcer Outcome Not Healed -Ulcer Cleansing Rinsed/ Irrigated with Saline -Foul Odor after Cleansing No -Bioengineered Tissue No -Bleeding Controlled with Pressure -Offloading No -Treatment Response Procedure Tolerated Well 12-left lower luz -Time -Correct Patient -Correct Side, Site, Position -Correct Procedure -Procedure Performed -Post Debridement Size (cm) - Length -Post Debridement Size (cm) - Width -Post Debridement Size (cm) - Depth -Total Square Cm -Wound/Ulcer Outcome 11 right medial LE cluster -Time -Correct Patient -Correct Side, Site, Position -Correct Procedure -Procedure Performed -Type of Procedure -Clinical Debridement -Post Debridement Size (cm) - Length -Post Debridement Size (cm) - Width -Post Debridement Size (cm) - Depth -Total Square Cm -Wound/Ulcer Outcome -Ulcer Cleansing -Foul Odor after Cleansing -Bioengineered Tissue -Bleeding Controlled with -Offloading -Treatment Response #10 left medial LE/ ankle -Time 09:57 -Correct Patient Yes -Correct Side, Site, Position Yes -Correct Procedure Yes -Procedure Performed Yes -Type of Procedure Debridement -Clinical Debridement Subcutaneous -Post Debridement Size (cm) - Length 8.0 -Post Debridement Size (cm) - Width 7.0 -Post Debridement Size (cm) - Depth 0.1 -Total Square Cm 56.00 -Wound/Ulcer Outcome Not Healed -Ulcer Cleansing Rinsed/ Irrigated with Saline -Foul Odor after Cleansing No -Bioengineered Tissue No -Bleeding Controlled with Pressure -Offloading No -Treatment Response Procedure Tolerated Well #9- L LAT LE/FOOT -Time -Correct Patient -Correct Side, Site, Position -Correct Procedure -Procedure Performed -Post Debridement Size (cm) - Length -Post Debridement Size (cm) - Width -Post Debridement Size (cm) - Depth -Total Square Cm -Wound/Ulcer Outcome Pain Scale: 0-10 Numeric Is Patient Pain Free? Yes Wound debrided: Left medial ankle Type of Debridement: Excisional debridement Anesthesia Used: 4% Lidocaine Solution Depth: Down to and including healthy tissue, in the subcutaneous layer Percentage of wound debrided: 100 Instrument Used: 7mm curette Tissue Removed: Slough and devitalized tissue Severity: Fat Layer Exposed Amount of bleeding with debridement: Mild Bleeding Controlled with: Pressure Patient tolerated procedure well - Additional Wound Wound debrided: Left Medial leg Type of Debridement: Excisional debridement Anesthesia Used: 4% Lidocaine Solution Depth: Down to and including healthy tissue, in the subcutaneous layer Percentage of wound debrided: 100 Instrument Used: 7mm curette Tissue Removed: Slough and devitalized tissue Severity: Fat Layer Exposed Amount of bleeding with debridement: Mild Bleeding Controlled with: Pressure Patient tolerated procedure: Patient tolerated procedure well - Additional Wound Wound debrided: Left Lateral leg Type of Debridement: Excisional debridement Anesthesia Used: 4% Lidocaine Solution Depth: Down to and including healthy tissue, in the subcutaneous layer Percentage of wound debrided: 100 Instrument Used: 7mm curette Tissue Removed: Slough and devitalized tissue Severity: Fat Layer Exposed Amount of bleeding with debridement: Mild Bleeding Controlled with: Pressure Patient tolerated procedure: Patient tolerated procedure well Assessment/Plan Active Problems (Last Reviewed 08/17/18 @ 15:02 by Benita Hong) Ulcer of left lower extremity with fat layer exposed (Acute) Lymphedema of both lower extremities (Chronic) Assessment: Left medial ankle ulcer. Left Medial leg ulcer and Left lateral leg ulcer. Chronic Lymphedema. Plan: Debridement done as documented above, procedure was well tolerated. Continue Aquacel extra to all ulcers. 3M wraps bilateral. Change on Friday and Friday by [facility]. Patient is currently home bound and uses a walker due to unsteady gait. Continues to require Home health care. . Continue use of lymphedema pump. Increase to 50 mmHG. Compliance strongly encouraged. Continue leg elevation, increased protein intake, exercise as tolerated and avoid idle standing. Reduce sodium intake. His questions were answered and he was advised to call with any further questions or concerns. Follow-up in 1 week. This note was generated with [employer] dictation software. It may contain incorrect words, spelling, and punctuation that were not noted in checking the note before signing. Code Visit [id number]: [id number] Shelbi subq tissue 20 sq cm/< - Additional Sq Cm debrided. Please refer to clinical note.
[2019-06-10 09:27] VITALS: BP 117/65; PULSE 73; RESP 18; TEMP 36.5; BMI 44.9
--- NOTE | 2019-06-10 10:09 | PCM.WC.PN ---
(1) Ulcer of left lower extremity with fat layer exposed Status: Acute Current Visit: Yes Code(s): L97.922 - Non-pressure chronic ulcer of unspecified part of left lower leg with fat layer exposed (2) Ulcer of right lower extremity with fat layer exposed Status: Resolved Current Visit: Yes Code(s): L97.912 - Non-pressure chronic ulcer of unspecified part of right lower leg with fat layer exposed (3) Lymphedema of both lower extremities Status: Chronic Current Visit: Yes Code(s): I89.0 - Lymphedema, not elsewhere classified Type of Wound Date of Service: 06/10/19 Chief Complaint: Left lower extremity ulcer. History of Wound: Mr. Russell is a 69yo well-known to the wound center who presents due to new left lower extremity ulcer. Presented to the emergency room due to concern for cellulitis on Friday. He was diagnosed with cellulitis and per patient he was given a day of IV antibiotics and discharged on Keflex. Pain, redness and drainage have improved. He subsequently followed up here for ulcer care/management. He denies chills, fever or otherwise feeling of unwell. Progress of Wound: No new concerns at this time. He states that he is better compliant with his lymphedema pump. - Physical Exam Vital Signs Temp Pulse Resp BP 97.7 F L 73 18 117/65 06/10/19 09:27 06/10/19 09:27 06/10/19 09:27 06/10/19 09:27 General: Alert, Oriented x3, Cooperative, No apparent distress HEENT: Atraumatic, Normocephalic Oral: Moist Mucosa Neck: Supple Lungs: Normal air movement Abdomen: Non Tender, Obese Extremities: No cyanosis, Edema Skin: Ulcer/ Wound Wound Measurements and Assessment WC - Nurse 1 - General Ulcer Measurement Start: 05/13/19 13:33 Freq: Status: Active Protocol: Activity Type Activity Date Activity User E-Sign Co-Sign Detail Recorded Client Recorded Date Recorded By Document 06/10/19 09:27 RB [id number] 06/10/19 09:39 RB 06/10/19 09:27 Wound Center Nurse 1 [Ulcer Assessment] #14 left lateral luz cluster -Combined with other wound No -Current Size (cm) - Length 21 -Current Size (cm) - Width 16 -Current Size (cm) - Depth 0.1 -Total Square Cm 336 -Tunneling No -Undermining/Tunneling No -Circular Undermining No -Exudate Amt Large -Exudate Type Serosanguineous -Wound Margin Flat & Intact -Granulation Amt Large (67-100%) -Granulation Quality [place] -Slough/Fibrin Yes -Necrosis Amt Small (1-33%) -Necrotic Tissue Type Adherent Slough -Structure Exposed N/A -Texture (Jaylyn-wound Skin Appearance) Assessed -Moisture (Jaylyn-wound Skin Appearance Assessed, ) Weeping -Color (Jaylyn-wound Skin Appearance) Assessed -Temperature (Jaylyn-wound Skin No Abnormality Appearance) (Pt Warm) -Tenderness on Palpation (Jaylyn-wound No Skin Appearance) -Ulcer Cleansing Wound Cleanser -Foul Odor after Cleansing No -Anesthetic Used 4% Lidocaine Solution 13-left medial luz -Combined with other wound No -Current Size (cm) - Length 1 -Current Size (cm) - Width 3 -Current Size (cm) - Depth 0.4 -Total Square Cm 3 -Tunneling No -Undermining/Tunneling No -Circular Undermining No -Exudate Amt Large -Exudate Type Serosanguineous -Wound Margin Flat & Intact -Granulation Amt Large (67-100%) -Granulation Quality [place] -Slough/Fibrin Yes -Necrosis Amt Small (1-33%) -Necrotic Tissue Type Adherent Slough -Structure Exposed N/A -Texture (Jaylyn-wound Skin Appearance) Assessed -Moisture (Jaylyn-wound Skin Appearance Weeping ) -Color (Jaylyn-wound Skin Appearance) Assessed -Temperature (Jaylyn-wound Skin No Abnormality Appearance) (Pt Warm) -Tenderness on Palpation (Jaylyn-wound No Skin Appearance) -Ulcer Cleansing Wound Cleanser -Foul Odor after Cleansing No -Anesthetic Used 4% Lidocaine Solution #10 left medial LE/ ankle -Combined with other wound No -Current Size (cm) - Length 13 -Current Size (cm) - Width 8 -Current Size (cm) - Depth 0.1 -Total Square Cm 104 -Tunneling No -Undermining/Tunneling No -Circular Undermining No -Exudate Amt Large -Exudate Type Serosanguineous -Wound Margin Flat & Intact -Granulation Amt Large (67-100%) -Granulation Quality [place] -Slough/Fibrin Yes -Necrosis Amt Small (1-33%) -Necrotic Tissue Type Adherent Slough -Structure Exposed N/A -Texture (Jaylyn-wound Skin Appearance) Assessed -Moisture (Jaylyn-wound Skin Appearance Weeping ) -Color (Jaylyn-wound Skin Appearance) Assessed -Temperature (Jaylyn-wound Skin No Abnormality Appearance) (Pt Warm) -Tenderness on Palpation (Jaylyn-wound No Skin Appearance) -Ulcer Cleansing Wound Cleanser -Foul Odor after Cleansing No -Anesthetic Used 4% Lidocaine Solution [Edema Assessment] -Lower Limb Edema Present Yes -Left Calf (cm) 47.5 -Left Ankle (cm) 33.5 WC - Nurse 2 - General Ulcer CM Notes Start: 05/13/19 13:33 Freq: Status: Active Protocol: Activity Type Activity Date Activity User E-Sign Co-Sign Detail Recorded Client Recorded Date Recorded By Document 06/10/19 09:59 MW [id number] 06/10/19 10:02 MW 06/10/19 09:59 Wound Center Nurse 2 [Procedure/Treatment] #14 left lateral luz cluster -Time 09:59 -Correct Patient Yes -Correct Side, Site, Position Yes -Correct Procedure Yes -Procedure Performed Yes -Type of Procedure Debridement -Clinical Debridement Subcutaneous -Post Debridement Size (cm) - Length 16.0 -Post Debridement Size (cm) - Width 11.0 -Post Debridement Size (cm) - Depth 0.1 -Total Square Cm 176.00 -Wound/Ulcer Outcome Not Healed -Ulcer Cleansing Rinsed/ Irrigated with Saline -Foul Odor after Cleansing No -Bioengineered Tissue No -Bleeding Controlled with Pressure -Offloading No -Treatment Response Procedure Tolerated Well 13-left medial luz -Time 09:59 -Correct Patient Yes -Correct Side, Site, Position Yes -Correct Procedure Yes -Procedure Performed Yes -Type of Procedure Debridement -Clinical Debridement Subcutaneous -Post Debridement Size (cm) - Length 1.0 -Post Debridement Size (cm) - Width 2.5 -Post Debridement Size (cm) - Depth 0.3 -Total Square Cm 2.50 -Wound/Ulcer Outcome Not Healed -Ulcer Cleansing Rinsed/ Irrigated with Saline -Foul Odor after Cleansing No -Bioengineered Tissue No -Bleeding Controlled with Pressure -Offloading No -Treatment Response Procedure Tolerated Well #10 left medial LE/ ankle -Time 10:00 -Correct Patient Yes -Correct Side, Site, Position Yes -Correct Procedure Yes -Procedure Performed Yes -Type of Procedure Debridement -Clinical Debridement Subcutaneous -Post Debridement Size (cm) - Length 3.5 -Post Debridement Size (cm) - Width 4.0 -Post Debridement Size (cm) - Depth 0.1 -Total Square Cm 14.00 -Wound/Ulcer Outcome Not Healed -Ulcer Cleansing Rinsed/ Irrigated with Saline -Foul Odor after Cleansing No -Bioengineered Tissue No -Bleeding Controlled with Pressure -Offloading No -Treatment Response Procedure Tolerated Well [See Physician Procedure note for Specifics] Pain Scale: 0-10 Numeric [Pain] -Is Patient Pain Free? Yes Musculoskeletal: No Muscle Wasting Neurological: Cranial nerves II-XII grossly intact Psych/Mental Status: Normal Affect Debridement Note Post-Debridement Measurements/Treatment WC - Nurse 2 - General Ulcer CM Notes Start: 05/13/19 13:33 Freq: Status: Active Protocol: Activity Type Activity Date Activity User E-Sign Co-Sign Detail Recorded Client Recorded Date Recorded By Document 05/13/19 13:58 MW [id number] 05/13/19 14:03 MW Document 05/20/19 10:44 MW [id number] 05/20/19 10:47 MW Document 05/27/19 09:02 MW [id number] 05/27/19 09:13 MW Document 06/03/19 09:56 MW [id number] 06/03/19 10:05 MW Document 06/10/19 09:59 MW [id number] 06/10/19 10:02 MW 05/13/19 05/20/19 05/27/19 13:58 10:44 09:02 Wound Center Nurse 2 #14 left lateral luz cluster -Time 09:05 -Correct Patient Yes -Correct Side, Site, Position Yes -Correct Procedure Yes -Procedure Performed Yes -Type of Procedure Debridement -Clinical Debridement Subcutaneous -Post Debridement Size (cm) - Length 15.0 -Post Debridement Size (cm) - Width 7.0 -Post Debridement Size (cm) - Depth 0.1 -Total Square Cm 105.00 -Wound/Ulcer Outcome Not Healed -Ulcer Cleansing Rinsed/ Irrigated with Saline -Foul Odor after Cleansing No -Bioengineered Tissue No -Bleeding Controlled with Pressure -Offloading No -Treatment Response Procedure Tolerated Well 13-left medial luz -Time 09:09 -Correct Patient Yes -Correct Side, Site, Position Yes -Correct Procedure Yes -Procedure Performed Yes -Type of Procedure Debridement -Clinical Debridement Subcutaneous -Post Debridement Size (cm) - Length 1.5 -Post Debridement Size (cm) - Width 4.0 -Post Debridement Size (cm) - Depth 0.4 -Total Square Cm 6.00 -Wound/Ulcer Outcome Not Healed -Ulcer Cleansing Rinsed/ Irrigated with Saline -Foul Odor after Cleansing No -Bioengineered Tissue No -Bleeding Controlled with Pressure -Offloading No -Treatment Response Procedure Tolerated Well 12-left lower luz -Time 09:08 -Correct Patient Yes -Correct Side, Site, Position Yes -Correct Procedure Yes -Procedure Performed No -Post Debridement Size (cm) - Length 0 -Post Debridement Size (cm) - Width 0 -Post Debridement Size (cm) - Depth 0 -Total Square Cm 0 -Wound/Ulcer Outcome Healed- Epithelialized 11 right medial LE cluster -Time 13:58 10:44 -Correct Patient Yes Yes -Correct Side, Site, Position Yes Yes -Correct Procedure Yes Yes -Procedure Performed Yes No -Type of Procedure Debridement -Clinical Debridement Subcutaneous -Post Debridement Size (cm) - Length 1.2 0 -Post Debridement Size (cm) - Width 0.5 0 -Post Debridement Size (cm) - Depth 0.1 0 -Total Square Cm 0.60 0 -Wound/Ulcer Outcome Not Healed Healed- Epithelialized -Ulcer Cleansing Rinsed/ Irrigated with Saline -Foul Odor after Cleansing No -Bioengineered Tissue No -Bleeding Controlled with Pressure -Offloading No -Treatment Response Procedure Tolerated Well #10 left medial LE/ ankle -Time 13:59 10:46 09:09 -Correct Patient Yes Yes Yes -Correct Side, Site, Position Yes Yes Yes -Correct Procedure Yes Yes Yes -Procedure Performed Yes No Yes -Type of Procedure Debridement Debridement -Clinical Debridement Subcutaneous Subcutaneous -Post Debridement Size (cm) - Length 2.5 11.0 -Post Debridement Size (cm) - Width 1.5 7.0 -Post Debridement Size (cm) - Depth 0.1 0.1 -Total Square Cm 3.75 77.00 -Wound/Ulcer Outcome Not Healed Not Healed Not Healed -Ulcer Cleansing Wound Cleanser Not Cleansed Rinsed/ Irrigated with Saline -Foul Odor after Cleansing No No No -Bioengineered Tissue No No -Bleeding Controlled with Pressure NA Pressure -Offloading No No No -Treatment Response Procedure Procedure Procedure Tolerated Well Tolerated Well Tolerated Well #9- L LAT LE/FOOT -Time 13:59 -Correct Patient Yes -Correct Side, Site, Position Yes -Correct Procedure Yes -Procedure Performed No -Post Debridement Size (cm) - Length 0 -Post Debridement Size (cm) - Width 0 -Post Debridement Size (cm) - Depth 0 -Total Square Cm 0 -Wound/Ulcer Outcome Healed- Epithelialized Pain Scale: 0-10 Numeric Is Patient Pain Free? Yes Yes Yes 06/03/19 06/10/19 09:56 09:59 Wound Center Nurse 2 #14 left lateral luz cluster -Time 09:56 09:59 -Correct Patient Yes Yes -Correct Side, Site, Position Yes Yes -Correct Procedure Yes Yes -Procedure Performed Yes Yes -Type of Procedure Debridement Debridement -Clinical Debridement Subcutaneous Subcutaneous -Post Debridement Size (cm) - Length 15.0 16.0 -Post Debridement Size (cm) - Width 10.0 11.0 -Post Debridement Size (cm) - Depth 0.1 0.1 -Total Square Cm 150.00 176.00 -Wound/Ulcer Outcome Not Healed Not Healed -Ulcer Cleansing Rinsed/ Rinsed/ Irrigated with Irrigated with Saline Saline -Foul Odor after Cleansing No No -Bioengineered Tissue No No -Bleeding Controlled with Pressure Pressure -Offloading No No -Treatment Response Procedure Procedure Tolerated Well Tolerated Well 13-left medial luz -Time 09:57 09:59 -Correct Patient Yes Yes -Correct Side, Site, Position Yes Yes -Correct Procedure Yes Yes -Procedure Performed Yes Yes -Type of Procedure Debridement Debridement -Clinical Debridement Subcutaneous Subcutaneous -Post Debridement Size (cm) - Length 1.0 1.0 -Post Debridement Size (cm) - Width 3.0 2.5 -Post Debridement Size (cm) - Depth 0.4 0.3 -Total Square Cm 3.00 2.50 -Wound/Ulcer Outcome Not Healed Not Healed -Ulcer Cleansing Rinsed/ Rinsed/ Irrigated with Irrigated with Saline Saline -Foul Odor after Cleansing No No -Bioengineered Tissue No No -Bleeding Controlled with Pressure Pressure -Offloading No No -Treatment Response Procedure Procedure Tolerated Well Tolerated Well 12-left lower luz -Time -Correct Patient -Correct Side, Site, Position -Correct Procedure -Procedure Performed -Post Debridement Size (cm) - Length -Post Debridement Size (cm) - Width -Post Debridement Size (cm) - Depth -Total Square Cm -Wound/Ulcer Outcome 11 right medial LE cluster -Time -Correct Patient -Correct Side, Site, Position -Correct Procedure -Procedure Performed -Type of Procedure -Clinical Debridement -Post Debridement Size (cm) - Length -Post Debridement Size (cm) - Width -Post Debridement Size (cm) - Depth -Total Square Cm -Wound/Ulcer Outcome -Ulcer Cleansing -Foul Odor after Cleansing -Bioengineered Tissue -Bleeding Controlled with -Offloading -Treatment Response #10 left medial LE/ ankle -Time 09:57 10:00 -Correct Patient Yes Yes -Correct Side, Site, Position Yes Yes -Correct Procedure Yes Yes -Procedure Performed Yes Yes -Type of Procedure Debridement Debridement -Clinical Debridement Subcutaneous Subcutaneous -Post Debridement Size (cm) - Length 8.0 3.5 -Post Debridement Size (cm) - Width 7.0 4.0 -Post Debridement Size (cm) - Depth 0.1 0.1 -Total Square Cm 56.00 14.00 -Wound/Ulcer Outcome Not Healed Not Healed -Ulcer Cleansing Rinsed/ Rinsed/ Irrigated with Irrigated with Saline Saline -Foul Odor after Cleansing No No -Bioengineered Tissue No No -Bleeding Controlled with Pressure Pressure -Offloading No No -Treatment Response Procedure Procedure Tolerated Well Tolerated Well #9- L LAT LE/FOOT -Time -Correct Patient -Correct Side, Site, Position -Correct Procedure -Procedure Performed -Post Debridement Size (cm) - Length -Post Debridement Size (cm) - Width -Post Debridement Size (cm) - Depth -Total Square Cm -Wound/Ulcer Outcome Pain Scale: 0-10 Numeric Is Patient Pain Free? Yes Yes Wound debrided: Left medial foot ( ankle ) Type of Debridement: Excisional debridement Anesthesia Used: 4% Lidocaine Solution Depth: Down to and including healthy tissue, in the subcutaneous layer Percentage of wound debrided: 100 Instrument Used: 5mm curette Tissue Removed: Slough and devitalized tissue Severity: Fat Layer Exposed Amount of bleeding with debridement: Mild Bleeding Controlled with: Pressure Patient tolerated procedure well - Additional Wound Wound debrided: Left medial luz Type of Debridement: Excisional debridement Anesthesia Used: 4% Lidocaine Solution Depth: Down to and including healthy tissue, in the subcutaneous layer Percentage of wound debrided: 100 Instrument Used: 5mm curette Tissue Removed: Slough and devitalized tissue Severity: Fat Layer Exposed Amount of bleeding with debridement: Mild Bleeding Controlled with: Pressure Patient tolerated procedure: Patient tolerated procedure well - Additional Wound Wound debrided: Left lateral luz Type of Debridement: Excisional debridement Anesthesia Used: 4% Lidocaine Solution Depth: Down to and including healthy tissue, in the subcutaneous layer Percentage of wound debrided: 100 Instrument Used: 5mm curette Tissue Removed: Slough and devitalized tissue Severity: Fat Layer Exposed Amount of bleeding with debridement: Mild Bleeding Controlled with: Pressure Patient tolerated procedure: Patient tolerated procedure well Assessment/Plan Active Problems (Last Reviewed 08/17/18 @ 15:02 by Benita Hong) Ulcer of left lower extremity with fat layer exposed (Acute) Lymphedema of both lower extremities (Chronic) Assessment: Left medial ankle ulcer. Left Medial leg ulcer and Left lateral leg ulcer. Chronic Lymphedema. Plan: Debridement done as documented above, procedure was well tolerated. Continue Aquacel extra to all ulcers. 3M wraps bilateral. Change on Friday and Friday by [facility]. Patient is currently home bound and uses a walker due to unsteady gait. Continues to require Home health care. . Continue use of lymphedema pump at 50 mmHG. Compliance strongly encouraged. Continue leg elevation, increased protein intake, exercise as tolerated and avoid idle standing. Reduce sodium intake. His questions were answered and he was advised to call with any further questions or concerns. Follow-up in 1 week. This note was generated with [employer] dictation software. It may contain incorrect words, spelling, and punctuation that were not noted in checking the note before signing. Code Visit [id number]: 31116 Shelbi subq tissue 20 sq cm/< - Additional Sq CM debrided, please refer to the clinical note.
== END 2019-06-11 23:59 ==
LOC: WC 09:15
PROVIDERS: Family Provider Family Medicine; PCP Family Medicine; Visit Provider Internal Medicine
DX: E11.622 Type 2 diabetes mellitus with other skin ulcer (principal); E11.22 Type 2 diabetes mellitus with diabetic chronic kidney disease; I12.9 Hypertensive chronic kidney disease with stage 1 through stage 4 chronic kidney disease, or unspecified chronic kidney disease; N18.2 Chronic kidney disease, stage 2 (mild); L97.822 Non-pressure chronic ulcer of other part of left lower leg with fat layer exposed; I89.0 Lymphedema, not elsewhere classified; L97.322 Non-pressure chronic ulcer of left ankle with fat layer exposed
CPT/HCPCS: 11042; 11045; 29581; 99213; G0463

== ENCOUNTER 2019-07-08 09:00 | Outpatient (RCR) | payer MEDICARE, OTHER, SELFPAY ==
[2019-06-12 00:48] VITALS: BP 117/65; PULSE 73; RESP 18; TEMP 36.5
[2019-06-17 08:40] VITALS: BP 127/63; PULSE 76; RESP 18; TEMP 36.6; BMI 44.9
--- NOTE | 2019-06-17 12:52 | PN.PCM_ITS ---
(1) Ulcer of left lower extremity with fat layer exposed Status: Chronic Current Visit: Yes Code(s): L97.922 - Non-pressure chronic ulcer of unspecified part of left lower leg with fat layer exposed (2) Lymphedema of both lower extremities Status: Chronic Current Visit: Yes Code(s): I89.0 - Lymphedema, not elsewhere classified (3) Type 2 diabetes mellitus Status: Chronic Current Visit: Yes Code(s): E11.9 - Type 2 diabetes mellitus without complications Type of Wound Date of Service: 06/17/19 Chief Complaint: Left lower extremity ulcer. History of Wound: Mr. Russell is a 69yo well-known to the wound center who presents due to new left lower extremity ulcer. Presented to the emergency room due to concern for cellulitis on Friday. He was diagnosed with cellulitis and per patient he was given a day of IV antibiotics and discharged on Keflex. Pain, redness and drainage have improved. He subsequently followed up here for ulcer care/management. He denies chills, fever or otherwise feeling of unwell. Progress of Wound: Continued/worsening bilateral lower extremity swelling and drainage. No significant change in ulcer. - Physical Exam Vital Signs Temp Pulse Resp BP 97.9 F 76 18 127/63 H 06/17/19 08:40 06/17/19 08:40 06/17/19 08:40 06/17/19 08:40 General: Alert, Oriented x3, Cooperative, No apparent distress HEENT: Atraumatic, Normocephalic Oral: Moist Mucosa Neck: Supple Lungs: Normal air movement Abdomen: Non Tender, Obese Extremities: No cyanosis, Edema Skin: Ulcer/ Wound Wound Measurements and Assessment WC - Nurse 1 - General Ulcer Measurement Start: 06/17/19 08:40 Freq: Status: Active Protocol: Activity Type Activity Date Activity User E-Sign Co-Sign Detail Recorded Client Recorded Date Recorded By Document 06/17/19 08:40 JIM [id number] 06/17/19 08:47 JIM 06/17/19 08:40 Wound Center Nurse 1 [Ulcer Assessment] #14 left lateral luz cluster -Combined with other wound No -Current Size (cm) - Length 8 -Current Size (cm) - Width 10 -Current Size (cm) - Depth 0.1 -Total Square Cm 80 -Photo Taken No -Epithelialization None Present -Tunneling No -Undermining/Tunneling No -Circular Undermining No -Exudate Amt Large -Exudate Type Serosanguineous -Wound Margin Flat & Intact -Granulation Amt Medium (34-66%) -Granulation Quality Red -Slough/Fibrin Yes -Necrosis Amt Medium (34-66%) -Necrotic Tissue Type Adherent Slough -Structure Exposed N/A -Texture (Jaylyn-wound Skin Appearance) Assessed, Localized Edema -Moisture (Jaylyn-wound Skin Appearance Assessed, ) Maceration -Color (Jaylyn-wound Skin Appearance) Assessed -Temperature (Jaylyn-wound Skin No Abnormality Appearance) (Pt Warm) -Tenderness on Palpation (Jaylyn-wound No Skin Appearance) -Ulcer Cleansing Wound Cleanser -Foul Odor after Cleansing No -Anesthetic Used 4% Lidocaine Solution 13-left medial luz -Combined with other wound No -Current Size (cm) - Length 0.5 -Current Size (cm) - Width 2.0 -Current Size (cm) - Depth 0.2 -Total Square Cm 1.00 -Photo Taken No -Epithelialization Small 1-33% -Tunneling No -Undermining/Tunneling No -Circular Undermining No -Exudate Amt Small -Exudate Type Serosanguineous -Wound Margin Flat & Intact -Granulation Amt Medium (34-66%) -Granulation Quality [place] -Slough/Fibrin Yes -Necrosis Amt Medium (34-66%) -Necrotic Tissue Type Adherent Slough -Structure Exposed N/A -Texture (Jaylyn-wound Skin Appearance) Assessed, Localized Edema -Moisture (Jaylyn-wound Skin Appearance Assessed, ) Maceration,Dry/ Scaly -Color (Jaylyn-wound Skin Appearance) Assessed -Temperature (Jaylyn-wound Skin No Abnormality Appearance) (Pt Warm) -Tenderness on Palpation (Jaylyn-wound No Skin Appearance) -Ulcer Cleansing Wound Cleanser -Foul Odor after Cleansing No -Anesthetic Used 4% Lidocaine Solution #10 left medial LE/ ankle -Combined with other wound No -Current Size (cm) - Length 1.0 -Current Size (cm) - Width 0.8 -Current Size (cm) - Depth 0.2 -Total Square Cm 0.80 -Photo Taken No -Epithelialization Small 1-33% -Tunneling No -Undermining/Tunneling No -Circular Undermining No -Exudate Amt Small -Exudate Type Serosanguineous -Wound Margin Flat & Intact -Granulation Amt Medium (34-66%) -Granulation Quality [place] -Slough/Fibrin Yes -Necrosis Amt Small (1-33%) -Necrotic Tissue Type Adherent Slough -Structure Exposed N/A -Texture (Jaylyn-wound Skin Appearance) Assessed, Localized Edema -Moisture (Jaylyn-wound Skin Appearance Maceration,Dry/ ) Scaly -Tenderness on Palpation (Jaylyn-wound No Skin Appearance) -Ulcer Cleansing Wound Cleanser -Foul Odor after Cleansing No -Anesthetic Used 4% Lidocaine Solution #9- L LAT LE/FOOT -Combined with other wound No -Current Size (cm) - Length 0 -Current Size (cm) - Width 0 -Current Size (cm) - Depth 0 -Total Square Cm 0 -Photo Taken Yes [Edema Assessment] -Lower Limb Edema Present Yes -Right Calf (cm) 44.5 -Right Ankle (cm) 32.0 -Left Calf (cm) 49.0 -Left Ankle (cm) 34.0 WC - Nurse 2 - General Ulcer CM Notes Start: 06/17/19 08:40 Freq: Status: Active Protocol: Activity Type Activity Date Activity User E-Sign Co-Sign Detail Recorded Client Recorded Date Recorded By Document 06/17/19 09:15 MW [id number] 06/17/19 09:27 MW 06/17/19 09:15 Wound Center Nurse 2 [Procedure/Treatment] #14 left lateral luz cluster -Time 09:15 -Correct Patient Yes -Correct Side, Site, Position Yes -Correct Procedure Yes -Procedure Performed Yes -Type of Procedure Debridement -Clinical Debridement Subcutaneous -Post Debridement Size (cm) - Length 15.0 -Post Debridement Size (cm) - Width 11.0 -Post Debridement Size (cm) - Depth 0.1 -Total Square Cm 165.00 -Wound/Ulcer Outcome Not Healed -Ulcer Cleansing Rinsed/ Irrigated with Saline -Foul Odor after Cleansing No -Bioengineered Tissue No -Bleeding Controlled with Pressure -Offloading No -Treatment Response Procedure Tolerated Well 13-left medial luz -Time 09:16 -Correct Patient Yes -Correct Side, Site, Position Yes -Correct Procedure Yes -Procedure Performed Yes -Type of Procedure Debridement -Clinical Debridement Subcutaneous -Post Debridement Size (cm) - Length 0.8 -Post Debridement Size (cm) - Width 2.5 -Post Debridement Size (cm) - Depth 0.2 -Total Square Cm 2.00 -Wound/Ulcer Outcome Not Healed -Ulcer Cleansing Rinsed/ Irrigated with Saline -Foul Odor after Cleansing No -Bioengineered Tissue No -Bleeding Controlled with Pressure -Offloading No -Treatment Response Procedure Tolerated Well #10 left medial LE/ ankle -Time 09:16 -Correct Patient Yes -Correct Side, Site, Position Yes -Correct Procedure Yes -Procedure Performed Yes -Type of Procedure Debridement -Clinical Debridement Subcutaneous -Post Debridement Size (cm) - Length 1.3 -Post Debridement Size (cm) - Width 1.0 -Post Debridement Size (cm) - Depth 0.1 -Total Square Cm 1.30 -Wound/Ulcer Outcome Not Healed -Ulcer Cleansing Rinsed/ Irrigated with Saline -Foul Odor after Cleansing No -Bioengineered Tissue No -Bleeding Controlled with Pressure -Offloading No -Treatment Response Procedure Tolerated Well [See Physician Procedure note for Specifics] Pain Scale: 0-10 Numeric [Pain] -Is Patient Pain Free? Yes Musculoskeletal: No Muscle Wasting Neurological: Cranial nerves II-XII grossly intact Psych/Mental Status: Normal Affect Debridement Note Post-Debridement Measurements/Treatment WC - Nurse 2 - General Ulcer CM Notes Start: 06/17/19 08:40 Freq: Status: Active Protocol: Activity Type Activity Date Activity User E-Sign Co-Sign Detail Recorded Client Recorded Date Recorded By Document 06/17/19 09:15 MW [id number] 06/17/19 09:27 MW 06/17/19 09:15 Wound Center Nurse 2 #14 left lateral luz cluster -Time 09:15 -Correct Patient Yes -Correct Side, Site, Position Yes -Correct Procedure Yes -Procedure Performed Yes -Type of Procedure Debridement -Clinical Debridement Subcutaneous -Post Debridement Size (cm) - Length 15.0 -Post Debridement Size (cm) - Width 11.0 -Post Debridement Size (cm) - Depth 0.1 -Total Square Cm 165.00 -Wound/Ulcer Outcome Not Healed -Ulcer Cleansing Rinsed/ Irrigated with Saline -Foul Odor after Cleansing No -Bioengineered Tissue No -Bleeding Controlled with Pressure -Offloading No -Treatment Response Procedure Tolerated Well 13-left medial luz -Time 09:16 -Correct Patient Yes -Correct Side, Site, Position Yes -Correct Procedure Yes -Procedure Performed Yes -Type of Procedure Debridement -Clinical Debridement Subcutaneous -Post Debridement Size (cm) - Length 0.8 -Post Debridement Size (cm) - Width 2.5 -Post Debridement Size (cm) - Depth 0.2 -Total Square Cm 2.00 -Wound/Ulcer Outcome Not Healed -Ulcer Cleansing Rinsed/ Irrigated with Saline -Foul Odor after Cleansing No -Bioengineered Tissue No -Bleeding Controlled with Pressure -Offloading No -Treatment Response Procedure Tolerated Well #10 left medial LE/ ankle -Time 09:16 -Correct Patient Yes -Correct Side, Site, Position Yes -Correct Procedure Yes -Procedure Performed Yes -Type of Procedure Debridement -Clinical Debridement Subcutaneous -Post Debridement Size (cm) - Length 1.3 -Post Debridement Size (cm) - Width 1.0 -Post Debridement Size (cm) - Depth 0.1 -Total Square Cm 1.30 -Wound/Ulcer Outcome Not Healed -Ulcer Cleansing Rinsed/ Irrigated with Saline -Foul Odor after Cleansing No -Bioengineered Tissue No -Bleeding Controlled with Pressure -Offloading No -Treatment Response Procedure Tolerated Well Pain Scale: 0-10 Numeric Is Patient Pain Free? Yes Wound debrided: Left medial ankle/foot Type of Debridement: Excisional debridement Anesthesia Used: 4% Lidocaine Solution Depth: Down to and including healthy tissue, in the subcutaneous layer Percentage of wound debrided: 100 Instrument Used: 5mm curette Tissue Removed: Slough and devitalized tissue Severity: Fat Layer Exposed Amount of bleeding with debridement: Mild Bleeding Controlled with: Pressure Patient tolerated procedure well - Additional Wound Wound debrided: Left leg (medial) Type of Debridement: Excisional debridement Anesthesia Used: 4% Lidocaine Solution Depth: Down to and including healthy tissue, in the subcutaneous layer Percentage of wound debrided: 100 Instrument Used: 5mm curette Tissue Removed: Slough and-Devitalized tissue Severity: Fat Layer Exposed Amount of bleeding with debridement: Mild Bleeding Controlled with: Pressure Patient tolerated procedure: Patient tolerated procedure well - Additional Wound Wound debrided: Left leg (lateral) Type of Debridement: Excisional debridement Anesthesia Used: 4% Lidocaine Solution Depth: Down to and including healthy tissue, in the subcutaneous layer Percentage of wound debrided: 100 Instrument Used: 5mm curette Tissue Removed: Slough and devitalized tissue Severity: Fat Layer Exposed Amount of bleeding with debridement: Mild Bleeding Controlled with: Pressure Patient tolerated procedure: Patient tolerated procedure well Assessment/Plan Active Problems (Last Reviewed 08/17/18 @ 15:02 by Benita Hong) Ulcer of left lower extremity with fat layer exposed (Chronic) Lymphedema of both lower extremities (Chronic) Type 2 diabetes mellitus (Chronic) Assessment: Left medial ankle ulcer. Left Medial leg ulcer and Left lateral leg ulcer. Chronic Lymphedema. Plan: Debridement done as documented above, procedure was well tolerated. Continue Aquacel extra to all ulcers. 3M wraps bilateral. Change on Friday and friday by [facility]. Patient is currently home bound and uses a walker due to unsteady gait. Continues to require Home health care. . Continue use of lymphedema pump at 50 mmHG. Compliance strongly encouraged. Continue leg elevation, increased protein intake, exercise as tolerated and avoid idle standing. Reduce sodium intake. I have also asked that he speak with his primary care physician about being screened for sleep apnea and a possible echo due to concern for right-sided failure/pulmonary hypertension possibly due to untreated sleep apnea. He reports worsening shortness of breath. As above, lower extremity swelling is worsening also. His questions were answered and he was advised to call with any further questions or concerns. Follow-up in 1 nakul abrams This note was generated with [employer] dictation software. It may contain incorrect words, spelling, and punctuation that were not noted in checking the note before signing. Code Visit [id number]: 15523 Shelbi subq tissue 20 sq cm/< - Additional Sq Cm debrided. Please refer to the clinical note.
[2019-06-24 09:52] VITALS: BMI 44.9
--- NOTE | 2019-06-24 10:28 | PCM.WC.PN ---
(1) Ulcer of left lower extremity with fat layer exposed Status: Chronic Current Visit: Yes Code(s): L97.922 - Non-pressure chronic ulcer of unspecified part of left lower leg with fat layer exposed (2) Lymphedema of both lower extremities Status: Chronic Current Visit: Yes Code(s): I89.0 - Lymphedema, not elsewhere classified (3) Type 2 diabetes mellitus Status: Chronic Current Visit: Yes Code(s): E11.9 - Type 2 diabetes mellitus without complications Type of Wound Date of Service: 06/24/19 Chief Complaint: Left lower extremity ulcer. History of Wound: Mr. Russell is a 69yo well-known to the wound center who presents due to new left lower extremity ulcer. Presented to the emergency room due to concern for cellulitis on Friday. He was diagnosed with cellulitis and per patient he was given a day of IV antibiotics and discharged on Keflex. Pain, redness and drainage have improved. He subsequently followed up here for ulcer care/management. He denies chills, fever or otherwise feeling of unwell. Progress of Wound: Left foot maceration noted. Otherwise, no new concerns. - Physical Exam Vital Signs Temp Pulse Resp BP 97.9 F 76 18 127/63 H 06/17/19 08:40 06/17/19 08:40 06/17/19 08:40 06/17/19 08:40 General: Alert, Oriented x3, Cooperative, No apparent distress HEENT: Atraumatic, Normocephalic Neck: Supple Abdomen: Non Tender, Obese Extremities: No cyanosis, Edema Skin: Ulcer/ Wound Wound Measurements and Assessment WC - Nurse 1 - General Ulcer Measurement Start: 06/17/19 08:40 Freq: Status: Active Protocol: Activity Type Activity Date Activity User E-Sign Co-Sign Detail Recorded Client Recorded Date Recorded By Document 06/24/19 09:52 JIM [id number] 06/24/19 09:55 JIM 06/24/19 09:52 Wound Center Nurse 1 [Ulcer Assessment] #14 left lateral luz cluster -Combined with other wound No -Current Size (cm) - Length 0.1 -Current Size (cm) - Width 0.1 -Current Size (cm) - Depth 0.1 -Total Square Cm 0.01 -Photo Taken No -Epithelialization Medium 34-66% -Tunneling No -Undermining/Tunneling No -Circular Undermining No -Exudate Amt Large -Exudate Type Yellow/Green -Wound Margin Indistinct, Non -Visible -Granulation Amt None Present (0 %) -Slough/Fibrin Yes -Necrosis Amt Medium (34-66%) -Necrotic Tissue Type Adherent Slough -Structure Exposed N/A -Texture (Jaylyn-wound Skin Appearance) Assessed, Excoriation, Localized Edema -Moisture (Jaylyn-wound Skin Appearance Assessed, ) Weeping -Color (Jaylyn-wound Skin Appearance) Assessed, Hemosiderin Staining -Temperature (Jaylyn-wound Skin No Abnormality Appearance) (Pt Warm) -Tenderness on Palpation (Jaylyn-wound No Skin Appearance) -Ulcer Cleansing Wound Cleanser -Foul Odor after Cleansing No -Anesthetic Used 4% Lidocaine Solution 13-left medial luz -Combined with other wound No -Current Size (cm) - Length 0.5 -Current Size (cm) - Width 1.5 -Current Size (cm) - Depth 0.3 -Total Square Cm 0.75 -Photo Taken No -Epithelialization Small 1-33% -Tunneling No -Undermining/Tunneling No -Circular Undermining No -Exudate Amt Large -Exudate Type Yellow/Green -Wound Margin Flat & Intact -Granulation Amt Small (1-33%) -Granulation Quality [place] -Slough/Fibrin Yes -Necrosis Amt Large (67-100%) -Necrotic Tissue Type Adherent Slough -Structure Exposed N/A -Texture (Jaylyn-wound Skin Appearance) Assessed, Localized Edema -Moisture (Jaylyn-wound Skin Appearance No Abnormality, ) Weeping -Color (Jaylyn-wound Skin Appearance) Assessed, Hemosiderin Staining -Temperature (Jaylyn-wound Skin No Abnormality Appearance) (Pt Warm) -Tenderness on Palpation (Jaylyn-wound No Skin Appearance) -Ulcer Cleansing Wound Cleanser -Foul Odor after Cleansing No -Anesthetic Used 4% Lidocaine Solution #10 left medial LE/ ankle -Combined with other wound No -Current Size (cm) - Length 5 -Current Size (cm) - Width 4.2 -Current Size (cm) - Depth 0.1 -Total Square Cm 21.0 -Photo Taken No -Epithelialization None Present -Tunneling No -Undermining/Tunneling No -Circular Undermining No -Exudate Amt Large -Exudate Type Yellow/Green -Wound Margin Indistinct, Non -Visible -Granulation Amt None Present (0 %) -Slough/Fibrin Yes -Necrosis Amt Large (67-100%) -Necrotic Tissue Type Adherent Slough -Structure Exposed N/A -Texture (Jaylyn-wound Skin Appearance) Assessed, Excoriation, Localized Edema -Moisture (Jaylyn-wound Skin Appearance Assessed, ) Weeping -Color (Jaylyn-wound Skin Appearance) Assessed, Hemosiderin Staining -Temperature (Jaylyn-wound Skin No Abnormality Appearance) (Pt Warm) -Tenderness on Palpation (Jaylyn-wound No Skin Appearance) -Ulcer Cleansing Wound Cleanser -Foul Odor after Cleansing No -Anesthetic Used 4% Lidocaine Solution [Edema Assessment] -Lower Limb Edema Present Yes -Right Calf (cm) 47 -Right Ankle (cm) 31.2 -Left Calf (cm) 49 -Left Ankle (cm) 34.2 WC - Nurse 2 - General Ulcer CM Notes Start: 06/17/19 08:40 Freq: Status: Active Protocol: Activity Type Activity Date Activity User E-Sign Co-Sign Detail Recorded Client Recorded Date Recorded By Document 06/24/19 10:00 MW [id number] 06/24/19 10:10 MW 06/24/19 10:00 Wound Center Nurse 2 [Procedure/Treatment] #14 left lateral luz cluster -Time 10:01 -Correct Patient Yes -Correct Side, Site, Position Yes -Correct Procedure Yes -Procedure Performed Yes -Type of Procedure Debridement -Clinical Debridement Subcutaneous -Post Debridement Size (cm) - Length 11.0 -Post Debridement Size (cm) - Width 11.0 -Post Debridement Size (cm) - Depth 0.1 -Total Square Cm 121.00 -Wound/Ulcer Outcome Not Healed -Ulcer Cleansing Rinsed/ Irrigated with Saline -Foul Odor after Cleansing No -Bioengineered Tissue No -Bleeding Controlled with Pressure -Offloading No -Treatment Response Procedure Tolerated Well 13-left medial luz -Time 10:06 -Correct Patient Yes -Correct Side, Site, Position Yes -Correct Procedure Yes -Procedure Performed Yes -Type of Procedure Debridement -Clinical Debridement Subcutaneous -Post Debridement Size (cm) - Length 0.3 -Post Debridement Size (cm) - Width 1.8 -Post Debridement Size (cm) - Depth 0.2 -Total Square Cm 0.54 -Wound/Ulcer Outcome Not Healed -Ulcer Cleansing Rinsed/ Irrigated with Saline -Foul Odor after Cleansing No -Bioengineered Tissue No -Bleeding Controlled with Pressure -Offloading No -Treatment Response Procedure Tolerated Well #10 left medial LE/ ankle -Time 10:06 -Correct Patient Yes -Correct Side, Site, Position Yes -Correct Procedure Yes -Procedure Performed Yes -Type of Procedure Debridement -Clinical Debridement Subcutaneous -Post Debridement Size (cm) - Length 4.0 -Post Debridement Size (cm) - Width 4.0 -Post Debridement Size (cm) - Depth 0.1 -Total Square Cm 16.00 -Wound/Ulcer Outcome Not Healed -Ulcer Cleansing Rinsed/ Irrigated with Saline -Foul Odor after Cleansing No -Bioengineered Tissue No -Bleeding Controlled with Pressure -Offloading No -Treatment Response Procedure Tolerated Well [See Physician Procedure note for Specifics] Pain Scale: 0-10 Numeric [Pain] -Is Patient Pain Free? Yes Musculoskeletal: No Muscle Wasting Neurological: Cranial nerves II-XII grossly intact Psych/Mental Status: Normal Affect Debridement Note Post-Debridement Measurements/Treatment WC - Nurse 2 - General Ulcer CM Notes Start: 06/17/19 08:40 Freq: Status: Active Protocol: Activity Type Activity Date Activity User E-Sign Co-Sign Detail Recorded Client Recorded Date Recorded By Document 06/17/19 09:15 MW [id number] 06/17/19 09:27 MW Document 06/24/19 10:00 MW [id number] 06/24/19 10:10 MW 06/17/19 06/24/19 09:15 10:00 Wound Center Nurse 2 #14 left lateral luz cluster -Time 09:15 10:01 -Correct Patient Yes Yes -Correct Side, Site, Position Yes Yes -Correct Procedure Yes Yes -Procedure Performed Yes Yes -Type of Procedure Debridement Debridement -Clinical Debridement Subcutaneous Subcutaneous -Post Debridement Size (cm) - Length 15.0 11.0 -Post Debridement Size (cm) - Width 11.0 11.0 -Post Debridement Size (cm) - Depth 0.1 0.1 -Total Square Cm 165.00 121.00 -Wound/Ulcer Outcome Not Healed Not Healed -Ulcer Cleansing Rinsed/ Rinsed/ Irrigated with Irrigated with Saline Saline -Foul Odor after Cleansing No No -Bioengineered Tissue No No -Bleeding Controlled with Pressure Pressure -Offloading No No -Treatment Response Procedure Procedure Tolerated Well Tolerated Well 13-left medial luz -Time 09:16 10:06 -Correct Patient Yes Yes -Correct Side, Site, Position Yes Yes -Correct Procedure Yes Yes -Procedure Performed Yes Yes -Type of Procedure Debridement Debridement -Clinical Debridement Subcutaneous Subcutaneous -Post Debridement Size (cm) - Length 0.8 0.3 -Post Debridement Size (cm) - Width 2.5 1.8 -Post Debridement Size (cm) - Depth 0.2 0.2 -Total Square Cm 2.00 0.54 -Wound/Ulcer Outcome Not Healed Not Healed -Ulcer Cleansing Rinsed/ Rinsed/ Irrigated with Irrigated with Saline Saline -Foul Odor after Cleansing No No -Bioengineered Tissue No No -Bleeding Controlled with Pressure Pressure -Offloading No No -Treatment Response Procedure Procedure Tolerated Well Tolerated Well #10 left medial LE/ ankle -Time 09:16 10:06 -Correct Patient Yes Yes -Correct Side, Site, Position Yes Yes -Correct Procedure Yes Yes -Procedure Performed Yes Yes -Type of Procedure Debridement Debridement -Clinical Debridement Subcutaneous Subcutaneous -Post Debridement Size (cm) - Length 1.3 4.0 -Post Debridement Size (cm) - Width 1.0 4.0 -Post Debridement Size (cm) - Depth 0.1 0.1 -Total Square Cm 1.30 16.00 -Wound/Ulcer Outcome Not Healed Not Healed -Ulcer Cleansing Rinsed/ Rinsed/ Irrigated with Irrigated with Saline Saline -Foul Odor after Cleansing No No -Bioengineered Tissue No No -Bleeding Controlled with Pressure Pressure -Offloading No No -Treatment Response Procedure Procedure Tolerated Well Tolerated Well Pain Scale: 0-10 Numeric Is Patient Pain Free? Yes Yes Wound debrided: Left Foot ( medial ) Type of Debridement: Excisional debridement Anesthesia Used: 4% Lidocaine Solution Depth: Down to and including healthy tissue, in the subcutaneous layer Percentage of wound debrided: 100 Instrument Used: 5mm curette Tissue Removed: Slough and devitalized tissue Severity: Fat Layer Exposed Amount of bleeding with debridement: Mild Bleeding Controlled with: Pressure - Additional Wound Wound debrided: Left Luz ( Medial ) Type of Debridement: Excisional debridement Anesthesia Used: 4% Lidocaine Solution Depth: Down to and including healthy tissue, in the subcutaneous layer Instrument Used: 5mm curette Tissue Removed: Slough and devitalized tissue Severity: Fat Layer Exposed Amount of bleeding with debridement: Mild Bleeding Controlled with: Pressure Patient tolerated procedure: Patient tolerated procedure well - Additional Wound Wound debrided: Left Luz ( Lateral ) Type of Debridement: Excisional debridement Anesthesia Used: 4% Lidocaine Solution Depth: Down to and including healthy tissue, in the subcutaneous layer Percentage of wound debrided: 100 Instrument Used: 5mm curette Tissue Removed: Slough and devitalized tissue Severity: Fat Layer Exposed Amount of bleeding with debridement: Mild Bleeding Controlled with: Pressure Patient tolerated procedure: Patient tolerated procedure well Assessment/Plan Active Problems (Last Reviewed 08/17/18 @ 15:02 by Benita Hong) Ulcer of left lower extremity with fat layer exposed (Chronic) Lymphedema of both lower extremities (Chronic) Type 2 diabetes mellitus (Chronic) Assessment: Left medial ankle ulcer. Left Medial leg ulcer and Left lateral leg ulcer. Chronic Lymphedema. Plan: Debridement done as documented above, procedure was well tolerated. Continue Aquacel extra to all ulcers. 3M wraps bilateral. Change on Friday and friday by [facility]. Patient is currently home bound and uses a walker due to unsteady gait. Continues to require Home health care. . Continue use of lymphedema pump at 50 mmHG. Compliance strongly encouraged. Continue leg elevation. Significant masceration of his left foot noted today likely pointing to the fact that he is not elevating his lower extremity as recommended. Cultures taken. Increase protein intake, exercise as tolerated and avoid idle standing. Reduce sodium intake. Plan is underway with his PCP for lower extremity edema workup ( ECHO and Sleep Study ). He also notes worsening shortness of breath. His questions were answered and he was advised to call with any further questions or concerns. Follow-up in 1 week. This note was generated with [employer] dictation software. It may contain incorrect words, spelling, and punctuation that were not noted in checking the note before signing. Code Visit [id number]: 36836 Shelbi subq tissue 20 sq cm/< - Additional Sq CM debrided. Please refer to the clinical note.
[2019-07-01 10:42] VITALS: BP 110/66; PULSE 83; RESP 18; TEMP 36.4; BMI 44.9
--- NOTE | 2019-07-01 12:39 | PN.PCM_ITS ---
(1) Ulcer of left lower extremity with fat layer exposed Status: Chronic Current Visit: Yes Code(s): L97.922 - Non-pressure chronic ulcer of unspecified part of left lower leg with fat layer exposed (2) Lymphedema of both lower extremities Status: Chronic Current Visit: Yes Code(s): I89.0 - Lymphedema, not elsewhere classified (3) Type 2 diabetes mellitus Status: Chronic Current Visit: Yes Code(s): E11.9 - Type 2 diabetes mellitus without complications Type of Wound Date of Service: 07/01/19 Chief Complaint: Left lower extremity ulcer. History of Wound: Mr. Russell is a 69yo well-known to the wound center who presents due to new left lower extremity ulcer. Presented to the emergency room due to concern for cellulitis on Friday. He was diagnosed with cellulitis and per patient he was given a day of IV antibiotics and discharged on Keflex. Pain, redness and drainage have improved. He subsequently followed up here for ulcer care/management. He denies chills, fever or otherwise feeling of unwell. Progress of Wound: Left foot masceration improved howver, again , increased lower extremiy swelling. His Diuretic wasnt increased due to concern for his kidney function per patient. - Physical Exam Vital Signs Temp Pulse Resp BP 97.5 F L 83 18 110/66 07/01/19 10:42 07/01/19 10:42 07/01/19 10:42 07/01/19 10:42 General: Alert, Oriented x3, Cooperative, No apparent distress HEENT: Atraumatic, Normocephalic Oral: Moist Mucosa Neck: Supple Lungs: Normal air movement Abdomen: Non Tender, Obese Extremities: No cyanosis, Edema Skin: Ulcer/ Wound Wound Measurements and Assessment WC - Nurse 1 - General Ulcer Measurement Start: 06/17/19 08:40 Freq: Status: Active Protocol: Activity Type Activity Date Activity User E-Sign Co-Sign Detail Recorded Client Recorded Date Recorded By Document 07/01/19 10:42 RB [id number] 07/01/19 10:56 RB 07/01/19 10:42 Wound Center Nurse 1 [Ulcer Assessment] #14 left lateral luz cluster -Combined with other wound No -Current Size (cm) - Length 16 -Current Size (cm) - Width 9 -Current Size (cm) - Depth 0.1 -Total Square Cm 144 -Tunneling No -Undermining/Tunneling No -Circular Undermining No -Exudate Amt Large -Exudate Type Serosanguineous -Wound Margin Flat & Intact -Granulation Amt Medium (34-66%) -Granulation Quality Combes -Slough/Fibrin Yes -Necrosis Amt Small (1-33%) -Necrotic Tissue Type Adherent Slough -Structure Exposed N/A -Texture (Jaylyn-wound Skin Appearance) Excoriation -Moisture (Jaylyn-wound Skin Appearance Maceration ) -Color (Jaylyn-wound Skin Appearance) Assessed -Temperature (Jaylyn-wound Skin No Abnormality Appearance) (Pt Warm) -Tenderness on Palpation (Jaylyn-wound No Skin Appearance) -Ulcer Cleansing Wound Cleanser -Foul Odor after Cleansing No -Anesthetic Used 4% Lidocaine Solution 13-left medial luz -Combined with other wound No -Current Size (cm) - Length 0.2 -Current Size (cm) - Width 2 -Current Size (cm) - Depth 0.2 -Total Square Cm 0.4 -Tunneling No -Undermining/Tunneling No -Circular Undermining No -Exudate Amt Medium -Exudate Type Serosanguineous -Wound Margin Flat & Intact -Granulation Amt Medium (34-66%) -Granulation Quality Combes -Slough/Fibrin Yes -Necrosis Amt Medium (34-66%) -Necrotic Tissue Type Adherent Slough -Structure Exposed N/A -Texture (Jaylyn-wound Skin Appearance) Excoriation -Moisture (Jaylyn-wound Skin Appearance Maceration ) -Color (Jaylyn-wound Skin Appearance) Assessed, Ecchymosis -Tenderness on Palpation (Jaylyn-wound No Skin Appearance) -Ulcer Cleansing Wound Cleanser -Foul Odor after Cleansing No -Anesthetic Used 4% Lidocaine Solution #10 left medial LE/ ankle -Combined with other wound No -Current Size (cm) - Length 3 -Current Size (cm) - Width 8 -Current Size (cm) - Depth 0.1 -Total Square Cm 24 -Tunneling No -Undermining/Tunneling No -Circular Undermining No -Exudate Amt Medium -Exudate Type Serosanguineous -Wound Margin Flat & Intact -Granulation Amt Medium (34-66%) -Granulation Quality Combes -Slough/Fibrin Yes -Necrosis Amt Small (1-33%) -Necrotic Tissue Type Adherent Slough -Structure Exposed N/A -Texture (Jaylyn-wound Skin Appearance) Excoriation -Moisture (Jaylyn-wound Skin Appearance Maceration ) -Color (Jaylyn-wound Skin Appearance) Assessed -Temperature (Jaylyn-wound Skin No Abnormality Appearance) (Pt Warm) -Tenderness on Palpation (Jaylyn-wound No Skin Appearance) -Ulcer Cleansing Wound Cleanser -Foul Odor after Cleansing No -Anesthetic Used 4% Lidocaine Solution [Edema Assessment] -Lower Limb Edema Present Yes -Right Calf (cm) 42.2 -Right Ankle (cm) 30 -Left Calf (cm) 52 -Left Ankle (cm) 34 WC - Nurse 2 - General Ulcer CM Notes Start: 06/17/19 08:40 Freq: Status: Active Protocol: Activity Type Activity Date Activity User E-Sign Co-Sign Detail Recorded Client Recorded Date Recorded By Document 07/01/19 11:12 MW [id number] 07/01/19 11:21 MW 07/01/19 11:12 Wound Center Nurse 2 [Procedure/Treatment] #14 left lateral luz cluster -Time 11:13 -Correct Patient Yes -Correct Side, Site, Position Yes -Correct Procedure Yes -Procedure Performed Yes -Type of Procedure Debridement -Clinical Debridement Subcutaneous -Post Debridement Size (cm) - Length 14.0 -Post Debridement Size (cm) - Width 11.0 -Post Debridement Size (cm) - Depth 0.1 -Total Square Cm 154.00 -Wound/Ulcer Outcome Not Healed -Ulcer Cleansing Rinsed/ Irrigated with Saline -Foul Odor after Cleansing No -Bioengineered Tissue No -Bleeding Controlled with Pressure -Offloading No -Treatment Response Procedure Tolerated Well 13-left medial luz -Time 11:13 -Correct Patient Yes -Correct Side, Site, Position Yes -Correct Procedure Yes -Procedure Performed Yes -Type of Procedure Debridement -Clinical Debridement Subcutaneous -Post Debridement Size (cm) - Length 0.5 -Post Debridement Size (cm) - Width 2.5 -Post Debridement Size (cm) - Depth 0.1 -Total Square Cm 1.25 -Wound/Ulcer Outcome Not Healed -Ulcer Cleansing Rinsed/ Irrigated with Saline -Foul Odor after Cleansing No -Bioengineered Tissue No -Bleeding Controlled with Pressure -Offloading No -Treatment Response Procedure Tolerated Well #10 left medial LE/ ankle -Time 11:16 -Correct Patient Yes -Correct Side, Site, Position Yes -Correct Procedure Yes -Procedure Performed Yes -Type of Procedure Debridement -Clinical Debridement Subcutaneous -Post Debridement Size (cm) - Length 4.0 -Post Debridement Size (cm) - Width 6.5 -Post Debridement Size (cm) - Depth 0.1 -Total Square Cm 26.00 -Wound/Ulcer Outcome Not Healed -Ulcer Cleansing Rinsed/ Irrigated with Saline -Foul Odor after Cleansing No -Bioengineered Tissue No -Bleeding Controlled with Pressure -Offloading No -Treatment Response Procedure Tolerated Well [See Physician Procedure note for Specifics] Pain Scale: 0-10 Numeric [Pain] -Is Patient Pain Free? Yes Musculoskeletal: No Muscle Wasting Neurological: Cranial nerves II-XII grossly intact Psych/Mental Status: Normal Affect Debridement Note Post-Debridement Measurements/Treatment WC - Nurse 2 - General Ulcer CM Notes Start: 06/17/19 08:40 Freq: Status: Active Protocol: Activity Type Activity Date Activity User E-Sign Co-Sign Detail Recorded Client Recorded Date Recorded By Document 06/17/19 09:15 MW [id number] 06/17/19 09:27 MW Document 06/24/19 10:00 MW [id number] 06/24/19 10:10 MW Document 07/01/19 11:12 MW [id number] 07/01/19 11:21 MW 06/17/19 06/24/19 07/01/19 09:15 10:00 11:12 Wound Center Nurse 2 #14 left lateral luz cluster -Time 09:15 10:01 11:13 -Correct Patient Yes Yes Yes -Correct Side, Site, Position Yes Yes Yes -Correct Procedure Yes Yes Yes -Procedure Performed Yes Yes Yes -Type of Procedure Debridement Debridement Debridement -Clinical Debridement Subcutaneous Subcutaneous Subcutaneous -Post Debridement Size (cm) - Length 15.0 11.0 14.0 -Post Debridement Size (cm) - Width 11.0 11.0 11.0 -Post Debridement Size (cm) - Depth 0.1 0.1 0.1 -Total Square Cm 165.00 121.00 154.00 -Wound/Ulcer Outcome Not Healed Not Healed Not Healed -Ulcer Cleansing Rinsed/ Rinsed/ Rinsed/ Irrigated with Irrigated with Irrigated with Saline Saline Saline -Foul Odor after Cleansing No No No -Bioengineered Tissue No No No -Bleeding Controlled with Pressure Pressure Pressure -Offloading No No No -Treatment Response Procedure Procedure Procedure Tolerated Well Tolerated Well Tolerated Well 13-left medial luz -Time 09:16 10:06 11:13 -Correct Patient Yes Yes Yes -Correct Side, Site, Position Yes Yes Yes -Correct Procedure Yes Yes Yes -Procedure Performed Yes Yes Yes -Type of Procedure Debridement Debridement Debridement -Clinical Debridement Subcutaneous Subcutaneous Subcutaneous -Post Debridement Size (cm) - Length 0.8 0.3 0.5 -Post Debridement Size (cm) - Width 2.5 1.8 2.5 -Post Debridement Size (cm) - Depth 0.2 0.2 0.1 -Total Square Cm 2.00 0.54 1.25 -Wound/Ulcer Outcome Not Healed Not Healed Not Healed -Ulcer Cleansing Rinsed/ Rinsed/ Rinsed/ Irrigated with Irrigated with Irrigated with Saline Saline Saline -Foul Odor after Cleansing No No No -Bioengineered Tissue No No No -Bleeding Controlled with Pressure Pressure Pressure -Offloading No No No -Treatment Response Procedure Procedure Procedure Tolerated Well Tolerated Well Tolerated Well #10 left medial LE/ ankle -Time 09:16 10:06 11:16 -Correct Patient Yes Yes Yes -Correct Side, Site, Position Yes Yes Yes -Correct Procedure Yes Yes Yes -Procedure Performed Yes Yes Yes -Type of Procedure Debridement Debridement Debridement -Clinical Debridement Subcutaneous Subcutaneous Subcutaneous -Post Debridement Size (cm) - Length 1.3 4.0 4.0 -Post Debridement Size (cm) - Width 1.0 4.0 6.5 -Post Debridement Size (cm) - Depth 0.1 0.1 0.1 -Total Square Cm 1.30 16.00 26.00 -Wound/Ulcer Outcome Not Healed Not Healed Not Healed -Ulcer Cleansing Rinsed/ Rinsed/ Rinsed/ Irrigated with Irrigated with Irrigated with Saline Saline Saline -Foul Odor after Cleansing No No No -Bioengineered Tissue No No No -Bleeding Controlled with Pressure Pressure Pressure -Offloading No No No -Treatment Response Procedure Procedure Procedure Tolerated Well Tolerated Well Tolerated Well Pain Scale: 0-10 Numeric Is Patient Pain Free? Yes Yes Yes Wound debrided: Left Foot ( Medial ankle ) Type of Debridement: Excisional debridement Anesthesia Used: 4% Lidocaine Solution Depth: Down to and including healthy tissue, in the subcutaneous layer Percentage of wound debrided: 100 Instrument Used: 7mm curette Tissue Removed: Slough and devitalized tissue Severity: Fat Layer Exposed Amount of bleeding with debridement: Mild Bleeding Controlled with: Pressure Patient tolerated procedure well - Additional Wound Wound debrided: Left Leg ( lateral ) Type of Debridement: Excisional debridement Anesthesia Used: 4% Lidocaine Solution Depth: Down to and including healthy tissue, in the subcutaneous layer Percentage of wound debrided: 100 Instrument Used: 7mm curette Tissue Removed: Slough and devitalized tissue Severity: Fat Layer Exposed Amount of bleeding with debridement: Mild Bleeding Controlled with: Pressure Patient tolerated procedure: Patient tolerated procedure well - Additional Wound Wound debrided: Left Leg ( medial ) Type of Debridement: Excisional debridement Anesthesia Used: 4% Lidocaine Solution Depth: Down to and including healthy tissue, in the subcutaneous layer Percentage of wound debrided: 100 Instrument Used: 7mm curette Tissue Removed: Slough and devitalized tissue Severity: Fat Layer Exposed Amount of bleeding with debridement: Mild Bleeding Controlled with: Pressure Patient tolerated procedure: Patient tolerated procedure well Assessment/Plan Active Problems (Last Reviewed 08/17/18 @ 15:02 by Benita Hong) Ulcer of left lower extremity with fat layer exposed (Chronic) Lymphedema of both lower extremities (Chronic) Type 2 diabetes mellitus (Chronic) Assessment: Left medial ankle ulcer. Left Medial leg ulcer and Left lateral leg ulcer. Chronic Lymphedema. Plan: Debridement done as documented above, procedure was well tolerated. Continue Aquacel extra to all ulcers. 3M wraps bilateral. Change on Friday and friday by [facility] [place]. Patient is currently home bound and uses a walker due to unsteady gait. Continues to require Home health care. . Continue use of lymphedema pump at 50 mmHG. Compliance strongly encouraged. Continue leg elevation. Increase protein intake, exercise as tolerated and avoid idle standing. Reduce sodium intake. Plan is underway with his PCP for lower extremity edema workup ( ECHO and Sleep Study ). He also notes worsening shortness of breath. Started on Levofloxacin per culture and sensitivity. 500 mg q48 hrs. Med. interaction to be run by pharmacy. His questions were answered and he was advised to call with any further questions or concerns. Follow-up in 1 week. This note was generated with [employer] software. It may contain incorrect words, spelling, and punctuation that were not noted in checking the note before signing. Code Visit [id number]: [id number] Shelbi subq tissue 20 sq cm/< - Additional Sq Cm debried. Refer to clinical note.
[2019-07-08 09:08] VITALS: BP 119/71; PULSE 85; RESP 18; TEMP 36.7; BMI 44.9
--- NOTE | 2019-07-08 09:37 | PN.PCM_ITS ---
(1) Ulcer of left lower extremity with fat layer exposed Status: Chronic Current Visit: Yes Code(s): L97.922 - Non-pressure chronic ulcer of unspecified part of left lower leg with fat layer exposed (2) Lymphedema of both lower extremities Status: Chronic Current Visit: Yes Code(s): I89.0 - Lymphedema, not elsewhere classified (3) Type 2 diabetes mellitus Status: Chronic Current Visit: Yes Code(s): E11.9 - Type 2 diabetes mellitus without complications Type of Wound Date of Service: 07/08/19 Chief Complaint: Left lower extremity ulcer. History of Wound: Mr. Russell is a 69yo well-known to the wound center who presents due to new left lower extremity ulcer. Presented to the emergency room due to concern for cellulitis on Friday. He was diagnosed with cellulitis and per patient he was given a day of IV antibiotics and discharged on Keflex. Pain, redness and drainage have improved. He subsequently followed up here for ulcer care/management. He denies chills, fever or otherwise feeling of unwell. Progress of Wound: Left lateral leg improving. Medial foot masceration is improved however new area of ulceration clustered over the medial distal leg. - Physical Exam Vital Signs Temp Pulse Resp BP 98.1 F 85 18 119/71 07/08/19 09:08 07/08/19 09:08 07/08/19 09:08 07/08/19 09:08 General: Alert, Oriented x3, Cooperative, No apparent distress HEENT: Atraumatic, Normocephalic Oral: Moist Mucosa Neck: Supple Lungs: Normal air movement Abdomen: Non Tender, Obese Skin: Ulcer/ Wound Wound Measurements and Assessment WC - Nurse 1 - General Ulcer Measurement Start: 06/17/19 08:40 Freq: Status: Active Protocol: Activity Type Activity Date Activity User E-Sign Co-Sign Detail Recorded Client Recorded Date Recorded By Document 07/08/19 09:08 RB [id number] 07/08/19 09:24 RB 07/08/19 09:08 Wound Center Nurse 1 [Ulcer Assessment] #14 left lateral luz cluster -Combined with other wound No -Current Size (cm) - Length 0.1 -Current Size (cm) - Width 0.1 -Current Size (cm) - Depth 0.1 -Total Square Cm 0.01 -Tunneling No -Undermining/Tunneling No -Circular Undermining No -Exudate Amt None Present -Wound Margin Flat & Intact -Granulation Amt Large (67-100%) -Granulation Quality Swartz -Slough/Fibrin Yes -Necrosis Amt Small (1-33%) -Necrotic Tissue Type Adherent Slough -Structure Exposed N/A -Texture (Jaylyn-wound Skin Appearance) Assessed -Moisture (Jaylyn-wound Skin Appearance Dry/Scaly ) -Color (Jaylyn-wound Skin Appearance) Assessed -Temperature (Jaylyn-wound Skin No Abnormality Appearance) (Pt Warm) -Tenderness on Palpation (Jaylyn-wound No Skin Appearance) -Ulcer Cleansing Rinsed/ Irrigated with Saline -Foul Odor after Cleansing No -Anesthetic Used 4% Lidocaine Solution 13-left medial luz -Combined with other wound No -Current Size (cm) - Length 4 -Current Size (cm) - Width 4 -Current Size (cm) - Depth 0.1 -Total Square Cm 16 -Tunneling No -Undermining/Tunneling No -Circular Undermining No -Exudate Amt Small -Exudate Type Serosanguineous -Wound Margin Flat & Intact -Granulation Amt Medium (34-66%) -Granulation Quality Swartz -Slough/Fibrin Yes -Necrosis Amt Small (1-33%) -Necrotic Tissue Type Adherent Slough -Structure Exposed N/A -Texture (Jaylyn-wound Skin Appearance) Assessed -Moisture (Jaylyn-wound Skin Appearance Maceration ) -Color (Jaylyn-wound Skin Appearance) Assessed -Temperature (Jaylyn-wound Skin No Abnormality Appearance) (Pt Warm) -Tenderness on Palpation (Jaylyn-wound No Skin Appearance) -Ulcer Cleansing Wound Cleanser -Foul Odor after Cleansing No -Anesthetic Used 4% Lidocaine Solution #10 left medial LE/ ankle -Combined with other wound No -Current Size (cm) - Length 4.5 -Current Size (cm) - Width 5 -Current Size (cm) - Depth 0.1 -Total Square Cm 22.5 -Tunneling No -Undermining/Tunneling No -Circular Undermining No -Exudate Amt Medium -Exudate Type Serosanguineous -Wound Margin Flat & Intact -Granulation Amt Medium (34-66%) -Granulation Quality Swartz -Slough/Fibrin Yes -Necrosis Amt Small (1-33%) -Necrotic Tissue Type Adherent Slough -Structure Exposed N/A -Texture (Jaylyn-wound Skin Appearance) Assessed -Moisture (Jaylyn-wound Skin Appearance Maceration ) -Color (Jaylyn-wound Skin Appearance) Assessed -Temperature (Jaylyn-wound Skin No Abnormality Appearance) (Pt Warm) -Tenderness on Palpation (Jaylyn-wound No Skin Appearance) -Ulcer Cleansing Wound Cleanser -Foul Odor after Cleansing No -Anesthetic Used 4% Lidocaine Solution [Edema Assessment] -Left Calf (cm) 50.5 -Left Ankle (cm) 34 WC - Nurse 2 - General Ulcer CM Notes Start: 06/17/19 08:40 Freq: Status: Active Protocol: Activity Type Activity Date Activity User E-Sign Co-Sign Detail Recorded Client Recorded Date Recorded By Document 07/08/19 09:28 MW [id number] 07/08/19 09:35 MW 07/08/19 09:28 Wound Center Nurse 2 [Procedure/Treatment] #14 left lateral luz cluster -Time 09:34 -Correct Patient Yes -Correct Side, Site, Position Yes -Correct Procedure Yes -Procedure Performed No -Post Debridement Size (cm) - Length 0.1 -Post Debridement Size (cm) - Width 0.1 -Post Debridement Size (cm) - Depth 0.1 -Total Square Cm 0.01 -Wound/Ulcer Outcome Healed- Surgical Closure -Foul Odor after Cleansing No -Bioengineered Tissue No -Bleeding Controlled with NA -Offloading No -Treatment Response Procedure Tolerated Well 13-left medial luz -Time 09:33 -Correct Patient Yes -Correct Side, Site, Position Yes -Correct Procedure Yes -Procedure Performed No -Post Debridement Size (cm) - Length 0.1 -Post Debridement Size (cm) - Width 0.1 -Post Debridement Size (cm) - Depth 0.1 -Total Square Cm 0.01 -Wound/Ulcer Outcome Not Healed -Ulcer Cleansing Not Cleansed -Foul Odor after Cleansing No -Bleeding Controlled with NA -Offloading No -Treatment Response Procedure Tolerated Well #10 left medial LE/ ankle -Time 09:32 -Correct Patient Yes -Correct Side, Site, Position Yes -Correct Procedure Yes -Procedure Performed Yes -Type of Procedure Debridement -Clinical Debridement Subcutaneous -Post Debridement Size (cm) - Length 14.0 -Post Debridement Size (cm) - Width 8.0 -Post Debridement Size (cm) - Depth 0.1 -Total Square Cm 112.00 -Wound/Ulcer Outcome Not Healed -Ulcer Cleansing Rinsed/ Irrigated with Saline -Foul Odor after Cleansing No -Bioengineered Tissue No -Bleeding Controlled with Pressure -Offloading No -Treatment Response Procedure Tolerated Well [See Physician Procedure note for Specifics] Pain Scale: 0-10 Numeric [Pain] -Is Patient Pain Free? Yes Musculoskeletal: No Muscle Wasting Neurological: Cranial nerves II-XII grossly intact Psych/Mental Status: Normal Affect Debridement Note Post-Debridement Measurements/Treatment WC - Nurse 2 - General Ulcer CM Notes Start: 06/17/19 08:40 Freq: Status: Active Protocol: Activity Type Activity Date Activity User E-Sign Co-Sign Detail Recorded Client Recorded Date Recorded By Document 06/17/19 09:15 MW [id number] 06/17/19 09:27 MW Document 06/24/19 10:00 MW [id number] 06/24/19 10:10 MW Document 07/01/19 11:12 MW [id number] 07/01/19 11:21 MW Document 07/08/19 09:28 MW [id number] 07/08/19 09:35 MW 06/17/19 06/24/19 07/01/19 09:15 10:00 11:12 Wound Center Nurse 2 #14 left lateral luz cluster -Time 09:15 10:01 11:13 -Correct Patient Yes Yes Yes -Correct Side, Site, Position Yes Yes Yes -Correct Procedure Yes Yes Yes -Procedure Performed Yes Yes Yes -Type of Procedure Debridement Debridement Debridement -Clinical Debridement Subcutaneous Subcutaneous Subcutaneous -Post Debridement Size (cm) - Length 15.0 11.0 14.0 -Post Debridement Size (cm) - Width 11.0 11.0 11.0 -Post Debridement Size (cm) - Depth 0.1 0.1 0.1 -Total Square Cm 165.00 121.00 154.00 -Wound/Ulcer Outcome Not Healed Not Healed Not Healed -Ulcer Cleansing Rinsed/ Rinsed/ Rinsed/ Irrigated with Irrigated with Irrigated with Saline Saline Saline -Foul Odor after Cleansing No No No -Bioengineered Tissue No No No -Bleeding Controlled with Pressure Pressure Pressure -Offloading No No No -Treatment Response Procedure Procedure Procedure Tolerated Well Tolerated Well Tolerated Well 13-left medial luz -Time 09:16 10:06 11:13 -Correct Patient Yes Yes Yes -Correct Side, Site, Position Yes Yes Yes -Correct Procedure Yes Yes Yes -Procedure Performed Yes Yes Yes -Type of Procedure Debridement Debridement Debridement -Clinical Debridement Subcutaneous Subcutaneous Subcutaneous -Post Debridement Size (cm) - Length 0.8 0.3 0.5 -Post Debridement Size (cm) - Width 2.5 1.8 2.5 -Post Debridement Size (cm) - Depth 0.2 0.2 0.1 -Total Square Cm 2.00 0.54 1.25 -Wound/Ulcer Outcome Not Healed Not Healed Not Healed -Ulcer Cleansing Rinsed/ Rinsed/ Rinsed/ Irrigated with Irrigated with Irrigated with Saline Saline Saline -Foul Odor after Cleansing No No No -Bioengineered Tissue No No No -Bleeding Controlled with Pressure Pressure Pressure -Offloading No No No -Treatment Response Procedure Procedure Procedure Tolerated Well Tolerated Well Tolerated Well #10 left medial LE/ ankle -Time 09:16 10:06 11:16 -Correct Patient Yes Yes Yes -Correct Side, Site, Position Yes Yes Yes -Correct Procedure Yes Yes Yes -Procedure Performed Yes Yes Yes -Type of Procedure Debridement Debridement Debridement -Clinical Debridement Subcutaneous Subcutaneous Subcutaneous -Post Debridement Size (cm) - Length 1.3 4.0 4.0 -Post Debridement Size (cm) - Width 1.0 4.0 6.5 -Post Debridement Size (cm) - Depth 0.1 0.1 0.1 -Total Square Cm 1.30 16.00 26.00 -Wound/Ulcer Outcome Not Healed Not Healed Not Healed -Ulcer Cleansing Rinsed/ Rinsed/ Rinsed/ Irrigated with Irrigated with Irrigated with Saline Saline Saline -Foul Odor after Cleansing No No No -Bioengineered Tissue No No No -Bleeding Controlled with Pressure Pressure Pressure -Offloading No No No -Treatment Response Procedure Procedure Procedure Tolerated Well Tolerated Well Tolerated Well Pain Scale: 0-10 Numeric Is Patient Pain Free? Yes Yes Yes 07/08/19 09:28 Wound Center Nurse 2 #14 left lateral luz cluster -Time 09:34 -Correct Patient Yes -Correct Side, Site, Position Yes -Correct Procedure Yes -Procedure Performed No -Type of Procedure -Clinical Debridement -Post Debridement Size (cm) - Length 0.1 -Post Debridement Size (cm) - Width 0.1 -Post Debridement Size (cm) - Depth 0.1 -Total Square Cm 0.01 -Wound/Ulcer Outcome Healed- Surgical Closure -Ulcer Cleansing -Foul Odor after Cleansing No -Bioengineered Tissue No -Bleeding Controlled with NA -Offloading No -Treatment Response Procedure Tolerated Well 13-left medial luz -Time 09:33 -Correct Patient Yes -Correct Side, Site, Position Yes -Correct Procedure Yes -Procedure Performed No -Type of Procedure -Clinical Debridement -Post Debridement Size (cm) - Length 0.1 -Post Debridement Size (cm) - Width 0.1 -Post Debridement Size (cm) - Depth 0.1 -Total Square Cm 0.01 -Wound/Ulcer Outcome Not Healed -Ulcer Cleansing Not Cleansed -Foul Odor after Cleansing No -Bioengineered Tissue -Bleeding Controlled with NA -Offloading No -Treatment Response Procedure Tolerated Well #10 left medial LE/ ankle -Time 09:32 -Correct Patient Yes -Correct Side, Site, Position Yes -Correct Procedure Yes -Procedure Performed Yes -Type of Procedure Debridement -Clinical Debridement Subcutaneous -Post Debridement Size (cm) - Length 14.0 -Post Debridement Size (cm) - Width 8.0 -Post Debridement Size (cm) - Depth 0.1 -Total Square Cm 112.00 -Wound/Ulcer Outcome Not Healed -Ulcer Cleansing Rinsed/ Irrigated with Saline -Foul Odor after Cleansing No -Bioengineered Tissue No -Bleeding Controlled with Pressure -Offloading No -Treatment Response Procedure Tolerated Well Pain Scale: 0-10 Numeric Is Patient Pain Free? Yes Wound debrided: Left medial foot and distal leg ( Cluster ) Type of Debridement: Excisional debridement Anesthesia Used: 4% Lidocaine Solution Depth: Down to and including healthy tissue, in the subcutaneous layer Percentage of wound debrided: 100 Instrument Used: 5mm curette Tissue Removed: Slough and devitalized tissue Severity: Fat Layer Exposed Amount of bleeding with debridement: Mild Bleeding Controlled with: Pressure Patient tolerated procedure well Assessment/Plan Active Problems (Last Reviewed 08/17/18 @ 15:02 by Benita Hong) Ulcer of left lower extremity with fat layer exposed (Chronic) Lymphedema of both lower extremities (Chronic) Type 2 diabetes mellitus (Chronic) Assessment: Left medial ankle ulcer. Left Medial leg ulcer and Left lateral leg ulcer. Chronic Lymphedema. Plan: Left lateral leg significantly improved. Minimal area left. Debridement done as documented above, procedure was well tolerated. Continue Aquacel extra to all ulcers. 3M wraps bilateral. Change on Friday and friday by [facility]. Patient is currently home bound and uses a walker due to unsteady gait. Continues to require Home health care. . Continue use of lymphedema pump at 50 mmHG. Compliance strongly encouraged. Continue leg elevation. Increase protein intake, exercise as tolerated and avoid idle standing. Reduce sodium intake. Plan is underway with his PCP for lower extremity edema workup ( ECHO and Sleep Study ). He also notes worsening shortness of breath. Started on Levofloxacin pe r culture and sensitivity. 500 mg q48 hrs. extended for 2 more days. His questions were answered and he was advised to call with any further questions or concerns. Follow-up in 1 week. This note was generated with [employer] dictation software. It may contain incorrect words, spelling, and punctuation that were not noted in checking the note before signing. Code Visit 111xxx-113xx: 99166 Shelbi subq tissue 20 sq cm/< - Additional Sq Cm debrided. Please refer to clinical note/panel.
== END 2019-07-10 23:59 ==
LOC: WC 09:00
PROVIDERS: Family Provider Family Medicine; PCP Family Medicine; Visit Provider Internal Medicine
DX: E11.622 Type 2 diabetes mellitus with other skin ulcer (principal); E11.22 Type 2 diabetes mellitus with diabetic chronic kidney disease; I12.9 Hypertensive chronic kidney disease with stage 1 through stage 4 chronic kidney disease, or unspecified chronic kidney disease; L97.822 Non-pressure chronic ulcer of other part of left lower leg with fat layer exposed; L97.322 Non-pressure chronic ulcer of left ankle with fat layer exposed; I89.0 Lymphedema, not elsewhere classified; N18.2 Chronic kidney disease, stage 2 (mild); R06.02 Shortness of breath
CPT/HCPCS: 11042; 11045; 29581; 87070; 87075; 87077; 87186; 87205

== ENCOUNTER 2019-07-15 09:48 | Outpatient (RCR) | payer MEDICARE, OTHER, SELFPAY ==
[2019-07-11 00:37] VITALS: BP 119/71; PULSE 85; RESP 18; TEMP 36.7
[2019-07-15 10:15] VITALS: BP 139/78; PULSE 106; RESP 18; TEMP 36.6; BMI 44.9
--- NOTE | 2019-07-15 11:33 | PCM.WC.PN ---
(1) Lymphedema of both lower extremities Status: Chronic Current Visit: Yes Code(s): I89.0 - Lymphedema, not elsewhere classified (2) Ulcer of left lower extremity with fat layer exposed Status: Chronic Current Visit: Yes Code(s): L97.922 - Non-pressure chronic ulcer of unspecified part of left lower leg with fat layer exposed Type of Wound Date of Service: 07/15/19 Chief Complaint: Left lower extremity ulcer. History of Wound: Mr. Rusesll is a 69yo well-known to the wound center who presents due to new left lower extremity ulcer. Presented to the emergency room due to concern for cellulitis on Friday. He was diagnosed with cellulitis and per patient he was given a day of IV antibiotics and discharged on Keflex. Pain, redness and drainage have improved. He subsequently followed up here for ulcer care/management. He denies chills, fever or otherwise feeling of unwell. Progress of Wound: Healed. No new concerns at this time. - Physical Exam Vital Signs Temp Pulse Resp BP 97.8 F 106 H 18 139/78 H 07/15/19 10:15 07/15/19 10:15 07/15/19 10:15 07/15/19 10:15 General: Alert, Oriented x3, Cooperative, No apparent distress HEENT: Atraumatic, Normocephalic Oral: Moist Mucosa Neck: Supple Lungs: Normal air movement Abdomen: Non Tender, Obese Extremities: Edema Wound Measurements and Assessment WC - Nurse 1 - General Ulcer Measurement Start: 07/15/19 10:15 Freq: Status: Active Protocol: Activity Type Activity Date Activity User E-Sign Co-Sign Detail Recorded Client Recorded Date Recorded By Document 07/15/19 10:15 [facility] [id number] 07/15/19 10:25 [facility] 07/15/19 10:15 Wound Center Nurse 1 [Ulcer Assessment] #14 left lateral luz cluster -Combined with other wound No -Current Size (cm) - Length 0.1 -Current Size (cm) - Width 0.1 -Current Size (cm) - Depth 0.1 -Total Square Cm 0.01 -Date of Last Picture (Recall this 07/15/19 field) -Photo Taken Yes -Epithelialization Large 67-100% -Tunneling No -Undermining/Tunneling No -Circular Undermining No -Exudate Amt None Present -Texture (Jaylyn-wound Skin Appearance) Assessed, Scarring -Moisture (Jaylyn-wound Skin Appearance Assessed,Dry/ ) Scaly -Color (Jaylyn-wound Skin Appearance) Assessed, Erythema -Temperature (Jaylyn-wound Skin No Abnormality Appearance) (Pt Warm) -Tenderness on Palpation (Jaylyn-wound No Skin Appearance) 13-left medial luz -Combined with other wound No -Current Size (cm) - Length 0.1 -Current Size (cm) - Width 0.1 -Current Size (cm) - Depth 0.1 -Total Square Cm 0.01 -Date of Last Picture (Recall this 07/15/19 field) -Photo Taken Yes -Epithelialization Large 67-100% -Tunneling No -Undermining/Tunneling No -Circular Undermining No -Exudate Amt None Present -Texture (Jaylyn-wound Skin Appearance) Assessed, Scarring -Moisture (Jaylyn-wound Skin Appearance Assessed,Dry/ ) Scaly -Color (Jaylyn-wound Skin Appearance) Assessed, Erythema -Temperature (Jaylny-wound Skin No Abnormality Appearance) (Pt Warm) -Tenderness on Palpation (Jaylyn-wound No Skin Appearance) #10 left medial LE/ ankle -Combined with other wound No -Current Size (cm) - Length 0.1 -Current Size (cm) - Width 0.1 -Current Size (cm) - Depth 0.1 -Total Square Cm 0.01 -Date of Last Picture (Recall this 07/15/19 field) -Photo Taken Yes -Epithelialization Large 67-100% -Tunneling No -Undermining/Tunneling No -Circular Undermining No -Exudate Amt None Present -Texture (Jaylyn-wound Skin Appearance) Assessed, Scarring -Moisture (Jaylyn-wound Skin Appearance Assessed,Dry/ ) Scaly -Color (Jaylyn-wound Skin Appearance) Assessed, Erythema -Temperature (Jaylyn-wound Skin No Abnormality Appearance) (Pt Warm) -Tenderness on Palpation (Jaylyn-wound No Skin Appearance) [Edema Assessment] -Lower Limb Edema Present Yes -Right Calf (cm) 42.1 -Right Ankle (cm) 32.4 -Left Calf (cm) 49.2 -Left Ankle (cm) 33 WC - Nurse 2 - General Ulcer CM Notes Start: 07/15/19 10:15 Freq: Status: Active Protocol: Activity Type Activity Date Activity User E-Sign Co-Sign Detail Recorded Client Recorded Date Recorded By Document 07/15/19 11:01 MW [id number] 07/15/19 11:07 MW 07/15/19 11:01 Wound Center Nurse 2 [Procedure/Treatment] #14 left lateral luz cluster -Time 11:02 -Correct Patient Yes -Correct Side, Site, Position Yes -Correct Procedure Yes -Procedure Performed No -Post Debridement Size (cm) - Length 0 -Post Debridement Size (cm) - Width 0 -Post Debridement Size (cm) - Depth 0 -Total Square Cm 0 -Wound/Ulcer Outcome Healed- Epithelialized 13-left medial luz -Time 11:02 -Correct Patient Yes -Correct Side, Site, Position Yes -Correct Procedure Yes -Procedure Performed No -Post Debridement Size (cm) - Length 0 -Post Debridement Size (cm) - Width 0 -Post Debridement Size (cm) - Depth 0 -Total Square Cm 0 -Wound/Ulcer Outcome Healed- Epithelialized #10 left medial LE/ ankle -Time 11:02 -Correct Patient Yes -Correct Side, Site, Position Yes -Correct Procedure Yes -Procedure Performed No -Post Debridement Size (cm) - Length 0 -Post Debridement Size (cm) - Width 0 -Post Debridement Size (cm) - Depth 0 -Total Square Cm 0 -Wound/Ulcer Outcome Healed- Epithelialized [See Physician Procedure note for Specifics] Pain Scale: 0-10 Numeric [Pain] -Is Patient Pain Free? Yes Neurological: Cranial nerves II-XII grossly intact Psych/Mental Status: Normal Affect Debridement Note Post-Debridement Measurements/Treatment WC - Nurse 2 - General Ulcer CM Notes Start: 07/15/19 10:15 Freq: Status: Active Protocol: Activity Type Activity Date Activity User E-Sign Co-Sign Detail Recorded Client Recorded Date Recorded By Document 07/15/19 11:01 MW [id number] 07/15/19 11:07 07/15/19 11:01 Wound Center Nurse 2 #14 left lateral luz cluster -Time 11:02 -Correct Patient Yes -Correct Side, Site, Position Yes -Correct Procedure Yes -Procedure Performed No -Post Debridement Size (cm) - Length 0 -Post Debridement Size (cm) - Width 0 -Post Debridement Size (cm) - Depth 0 -Total Square Cm 0 -Wound/Ulcer Outcome Healed- Epithelialized 13-left medial luz -Time 11:02 -Correct Patient Yes -Correct Side, Site, Position Yes -Correct Procedure Yes -Procedure Performed No -Post Debridement Size (cm) - Length 0 -Post Debridement Size (cm) - Width 0 -Post Debridement Size (cm) - Depth 0 -Total Square Cm 0 -Wound/Ulcer Outcome Healed- Epithelialized #10 left medial LE/ ankle -Time 11:02 -Correct Patient Yes -Correct Side, Site, Position Yes -Correct Procedure Yes -Procedure Performed No -Post Debridement Size (cm) - Length 0 -Post Debridement Size (cm) - Width 0 -Post Debridement Size (cm) - Depth 0 -Total Square Cm 0 -Wound/Ulcer Outcome Healed- Epithelialized Pain Scale: 0-10 Numeric Is Patient Pain Free? Yes No debridement was completed today Assessment/Plan Active Problems (Last Reviewed 08/17/18 @ 15:02 by Benita Hong) Ulcer of left lower extremity with fat layer exposed (Chronic) Lymphedema of both lower extremities (Chronic) Assessment: Left medial ankle ulcer. Left Medial leg ulcer and Left lateral leg ulcer. Chronic Lymphedema. Plan: Healed. No new concerns. Very lengthy discussion had with present on compression compliance and compliance with using his pumps as well. Leg elevation also discussed. He voiced understanding. 3M wraps to left leg for today. HH may take off on Friday and discharge. Circaids after 3Mwraps. Use daily and may take off at night. His questions were answered and he was advised to call with any further questions o concens. Discharged from the wound clinic. This note was generated with [employer] dictation software. It may contain incorrect words, spelling, and punctuation that were not noted in checking the note before signing. Office Visits / Consults: [id number] L3 Est
== END 2019-08-10 23:59 ==
LOC: WC 09:48
PROVIDERS: Family Provider Family Medicine; PCP Family Medicine; Visit Provider Internal Medicine
DX: I89.0 Lymphedema, not elsewhere classified (principal)
CPT/HCPCS: 29581; 99213; G0463

== ENCOUNTER → 2019-08-26 11:40 | Outpatient (CLI) | payer MEDICARE, OTHER, SELFPAY ==
[2019-08-26 10:47] VITALS: BMI 46.3
[2019-08-26 12:26] LABS: Hematocrit 30.3 % (40-54); Hemoglobin 9.5 g/dL (13.0-16.5); Mean Corp Hgb Conc 31.4 g/dL (32-36); Mean Corpuscular Hgb 31.4 pg (27.0-32.0); Mean Platelet Vol. 12.1 fl (6.2-12.0); Platelet Count 158 K/mm3 (150-450); RBC Distribution Width CV 14.4 % (11.6-14.6); RBC Distribution Width SD 53.1 fl (35.1-43.9); Red Blood Count 3.03 M/mm3 (4.6-6.2); White Blood Count 8.3 K/mm3 (4.4-11.0)
[2019-08-26 13:28] LABS: PTHIN 131.4 pg/mL (18.4-80.1)
[2019-08-26 13:32] LABS: Albumin, Serum 2.8 g/dL (3.2-5.0); BUN 44 mg/dL (7-18); BUN/Creat Ratio 30.6 RATIO (10-20); Calcium,Total 8.9 mg/dL (8.5-10.1); Chloride 106 mmol/L (98-107); Creatinine, Serum 1.44 mg/dL (0.70-1.30); EST Glomerular Filtration Rate 52 mL/min (>60); Est Glom Filt Rate - Afr Amer 62 mL/min (>60); Ferritin 613 ng/mL (26-388); Glucose 111 mg/dL (74-106); Iron 48 ug/dL (65-175); Iron Binding Capacity,Total 205 ug/dL (250-450); Phosphorus 2.9 mg/dL (2.5-4.9); Potassium 4.1 mmol/L (3.5-5.1); Sodium Level 141 mmol/L (136-145)
== END ==
LOC: LAB.FUTURE 11:45 → LAB 08-27 06:54
PROVIDERS: Family Provider Family Medicine; PCP Family Medicine; Referring Provider Internal Medicine Nephrology; Visit Provider Internal Medicine Nephrology
DX: N18.3 Chronic kidney disease, stage 3 (moderate) (principal); D63.1 Anemia in chronic kidney disease; N25.81 Secondary hyperparathyroidism of renal origin
CPT/HCPCS: 36415; 80069; 82728; 83540; 83550; 83970; 85027

== ENCOUNTER → 2019-08-31 13:40 | Outpatient (CLI) | payer MEDICARE, OTHER, SELFPAY ==
[2019-08-26 10:47] VITALS: BMI 46.3
[2019-08-31 14:20] LABS: AST(SGOT) 24 U/L (15-37); Alanine Aminotransfer ALT/SGPT 30 U/L (16-61); Albumin, Serum 2.9 g/dL (3.2-5.0); Alkaline Phosphatase 129 U/L (45-117); Bilirubin, Direct 0.24 mg/dL (0.00-0.30); Cholesterol 133 mg/dL (200); Globulin 4.7 g/dL (2.2-4.2); High Density Lipoprotein 67 mg/dL; Protein, Total 7.6 g/dL (6.4-8.2); Triglycerides 96 mg/dL; Very Low Density Lipoprotein 19 mg/dL (5-40)
== END ==
PROVIDERS: PCP Family Medicine; Referring Provider Internal Medicine Cardiovascular Disease; Visit Provider Internal Medicine Cardiovascular Disease
DX: E78.5 Hyperlipidemia, unspecified (principal)
CPT/HCPCS: 36415; 80061; 80076

== ENCOUNTER 2019-09-02 11:00 | Outpatient (RCR) | payer MEDICARE, OTHER, SELFPAY ==
[2019-08-11 00:30] VITALS: BP 139/78; PULSE 106; RESP 18; TEMP 36.6
[2019-08-24 14:31] VITALS: BMI 46.3
[2019-08-26 10:47] VITALS: BP 139/80; PULSE 81; RESP 18; TEMP 36.9; BMI 46.3
--- NOTE | 2019-08-26 11:34 | HP.PCM_ITS ---
(1) Lymphedema of both lower extremities Status: Chronic Current Visit: Yes Code(s): I89.0 - Lymphedema, not elsewhere classified (2) Type 2 diabetes mellitus Status: Chronic Current Visit: Yes Code(s): E11.9 - Type 2 diabetes mellitus without complications (3) Ulcer of left lower extremity with fat layer exposed Status: Acute Current Visit: Yes Code(s): L97.922 - Non-pressure chronic ulcer of unspecified part of left lower leg with fat layer exposed History of Present Illness Date of Service: 08/26/19 Chief Complaint: Left lower extremity ulcer. History of Wound: Mr. Russell is a 69yo well-known to the wound center who presents due to new (recurrent) left lower extremity ulcer. Said to have started about a week ago. Initially noted increased fluid drainage. Denies chills, fever or otherwise feeling of unwell. Home health nurse was concerned as well due to significant foul smell. Past Medical History Past Medical History: Chronic Problems (Last Reviewed 08/24/19 @ 14:37 by Benita Hong) Lymphedema of both lower extremities (Chronic) Cardiac murmur (Chronic) Stage 2 chronic kidney disease (Chronic) Essential hypertension (Chronic) Type 2 diabetes mellitus (Chronic) Iron deficiency anemia (Chronic) Hyperlipidemia (Chronic) Surgical History: no surgical history Allergies/Adverse Reactions: Allergies No Known Allergies Allergy (Verified 08/24/19 14:32) Home Medications: Ambulatory Orders Medication Instructions Recorded Ascorbic Acid [Vitamin C] 500 mg PO DAILY@0800 03/08/17 Carvedilol [Coreg ([address])] 6.25 mg PO BID 03/08/17 Furosemide [Lasix] 40 mg PO DAILY 03/08/17 Hydrocodone/Acetaminophen 1 - 2 ea PO Q4H PRN PRN 03/08/17 [Hydrocodone-Acetamin 5-325 mg] Magnesium 500 mg PO QHS 03/08/17 Multivitamin [Daily Multiple 1 ea PO DAILY 03/08/17 Vitamin] Simvastatin 40 mg PO QHS 03/08/17 potassium chloride 10 mEq 20 meq PO QDAY tab 08/28/17 tablet,extended release(part/cryst) allopurinol 300 mg tablet 300 mg PO DAILY 08/23/19 cholecalciferol (vitamin D3) 125 125 mcg PO DAILY 08/23/19 mcg (5,000 unit) capsule enalapril maleate 10 mg tablet 10 mg PO BID tab 08/23/19 ferrous sulfate 325 mg (65 mg 325 mg PO BID 08/23/19 iron) tablet magnesium hydroxide 400 mg/5 mL 400 mg PO DAILY PRN 08/23/19 oral suspension cyanocobalamin (vitamin B-12) 1,000 mcg PO DAILY 08/24/19 1,000 mcg capsule omega-3 fatty acids 1,000 mg 1,000 mg PO DAILY 08/24/19 capsule - Family History Maternal Family History: Family History (Last Reviewed 08/24/19 @ 14:37 by Benita Hong) Mother Cancer Father Hypertension Cancer Paternal Family History: Family History (Last Reviewed 08/24/19 @ 14:37 by Benita Hong) Mother Cancer Father Hypertension - - Head trauma. Smoking Status: Never smoker Review of Systems Constitutional: Denies: Anorexia, Chills, Fever, Night Sweats Eyes: Denies: Blurred vision, Pain, Redness HEENT: Denies: Difficulty Swallowing Cardiovascular: Denies: Chest Pain, Claudication, Chest Pressure Respiratory: Denies: Cough, Hemoptysis Gastrointestinal: Denies: Abdominal Pain, Hematemesis, Vomiting Genitourinary: Denies: Hematuria Skin: Denies: Jaundice - Physical Exam Vital Signs Temp Pulse Resp BP 98.5 F 81 18 139/80 H 08/26/19 10:47 08/26/19 10:47 08/26/19 10:47 08/26/19 10:47 General: Alert, Oriented x3, Cooperative, No apparent distress HEENT: Atraumatic, Normocephalic Oral: Moist Mucosa Neck: Supple Lungs: Normal air movement Abdomen: Non Tender, Obese Extremities: No cyanosis, Edema Skin: Ulcer/ Wound Wound Measurements and Assessment WC - Nurse 1 - General Ulcer Measurement Start: 08/26/19 10:46 Freq: Status: Active Protocol: Activity Type Activity Date Activity User E-Sign Co-Sign Detail Recorded Client Recorded Date Recorded By Document 08/26/19 10:47 RB [id number] 08/26/19 10:57 RB 08/26/19 10:47 Wound Center Nurse 1 [Ulcer Assessment] 15. LLE lateral cluster -Combined with other wound No -Current Size (cm) - Length 23.5 -Current Size (cm) - Width 10 -Current Size (cm) - Depth 0.1 -Total Square Cm 235.0 -Photo Taken Yes -Tunneling No -Undermining/Tunneling No -Circular Undermining No -Exudate Amt Large -Exudate Type Serosanguineous -Granulation Amt Medium (34-66%) -Granulation Quality [place] -Slough/Fibrin Yes -Necrosis Amt Medium (34-66%) -Necrotic Tissue Type Adherent Slough -Structure Exposed N/A -Texture (Jaylyn-wound Skin Appearance) Excoriation, Friable -Moisture (Jaylyn-wound Skin Appearance Maceration ) -Color (Jaylyn-wound Skin Appearance) Erythema -Temperature (Jaylyn-wound Skin No Abnormality Appearance) (Pt Warm) -Tenderness on Palpation (Jaylyn-wound No Skin Appearance) -Ulcer Cleansing Wound Cleanser -Foul Odor after Cleansing No -Anesthetic Used 4% Lidocaine Solution [Edema Assessment] -Lower Limb Edema Present Yes -Right Calf (cm) 42.5 -Right Ankle (cm) 33 -Left Calf (cm) 45.5 -Left Ankle (cm) 32.5 WC - Nurse 2 - General Ulcer CM Notes Start: 08/26/19 10:46 Freq: Status: Active Protocol: Activity Type Activity Date Activity User E-Sign Co-Sign Detail Recorded Client Recorded Date Recorded By Document 08/26/19 11:04 MW [id number] 08/26/19 11:09 MW 08/26/19 11:04 Wound Center Nurse 2 [Procedure/Treatment] 15. LLE lateral cluster -Time 11:04 -Correct Patient Yes -Correct Side, Site, Position Yes -Correct Procedure Yes -Procedure Performed Yes -Type of Procedure Debridement -Clinical Debridement Subcutaneous -Post Debridement Size (cm) - Length 25.0 -Post Debridement Size (cm) - Width 13.0 -Post Debridement Size (cm) - Depth 0.1 -Total Square Cm 325.00 -Wound/Ulcer Outcome Not Healed -Ulcer Cleansing Rinsed/ Irrigated with Saline -Foul Odor after Cleansing No -Bioengineered Tissue No -Bleeding Controlled with Pressure -Offloading No -Treatment Response Procedure Tolerated Well [See Physician Procedure note for Specifics] Pain Scale: 0-10 Numeric [Pain] -Is Patient Pain Free? Yes Neurological: Cranial nerves II-XII grossly intact Psych/Mental Status: Normal Affect Debridement Note Post-Debridement Measurements/Treatment WC - Nurse 2 - General Ulcer CM Notes Start: 08/26/19 10:46 Freq: Status: Active Protocol: Activity Type Activity Date Activity User E-Sign Co-Sign Detail Recorded Client Recorded Date Recorded By Document 08/26/19 11:04 MW [id number] 08/26/19 11:09 MW 08/26/19 11:04 Wound Center Nurse 2 15. LLE lateral cluster -Time 11:04 -Correct Patient Yes -Correct Side, Site, Position Yes -Correct Procedure Yes -Procedure Performed Yes -Type of Procedure Debridement -Clinical Debridement Subcutaneous -Post Debridement Size (cm) - Length 25.0 -Post Debridement Size (cm) - Width 13.0 -Post Debridement Size (cm) - Depth 0.1 -Total Square Cm 325.00 -Wound/Ulcer Outcome Not Healed -Ulcer Cleansing Rinsed/ Irrigated with Saline -Foul Odor after Cleansing No -Bioengineered Tissue No -Bleeding Controlled with Pressure -Offloading No -Treatment Response Procedure Tolerated Well Pain Scale: 0-10 Numeric Is Patient Pain Free? Yes Wound debrided: Left Leg ( Lateral Cluster ) Type of Debridement: Excisional debridement Anesthesia Used: 4% Lidocaine Solution Depth: Down to and including healthy tissue, in the subcutaneous layer Percentage of wound debrided: 100 Instrument Used: 5mm curette Tissue Removed: Slough and devitalized tissue Severity: Fat Layer Exposed Amount of bleeding with debridement: Mild Bleeding Controlled with: Pressure Patient tolerated procedure well Assessment/Plan Active Problems (Last Reviewed 08/24/19 @ 14:37 by Benita Hong) Ulcer of left lower extremity with fat layer exposed (Acute) Lymphedema of both lower extremities (Chronic) Type 2 diabetes mellitus (Chronic) Assessment: Recurrent left lower extremity ulcer. Chronic lymphedema. Morbid obesity. Plan: Debridement done as documented above. Procedure was well-tolerated. Recurrent ulcer predominantly in the left lateral lower extremity. Significant foul smell. No differential warmth. Cultures taken. Decide on antibiotics based on culture/sensitivity. For now, continue Aquacel extra with ABD over top. 3M wraps for edema management. Change on Friday and Friday by home health. Follow-up in a week. Continue lymphedema pump at 40 mmHg. Compliance encouraged. Also strongly advised to elevate his lower extremities and cut back on sodium intake. He voiced understanding. Continue increased protein intake. His questions were answered and he was advised to call with any further questions or concerns. Follow-up in a week. This note was generated with [employer] dictation software. It may contain incorrect words, spelling, and punctuation that were not noted in checking the note before signing. Multi Select Codes - Visit Charges Office Visit/Consults: 32166 OV L3 Est - Integumentary Integumentary CPT Codes: 17780 Shelbi subq tissue 20 sq cm/< - Additional square centimeters debrided, please refer to clinical note.
[2019-09-02 11:07] VITALS: BP 132/71; PULSE 84; RESP 18; TEMP 36.2; BMI 46.3
--- NOTE | 2019-09-02 11:16 | WC ---
pt states on Friday he cut his own 3M wraps off per self to shower before home health arrived. Left luz laceration noted today.
--- NOTE | 2019-09-02 12:18 | PN.PCM_ITS ---
(1) Lymphedema of both lower extremities Status: Chronic Current Visit: Yes Code(s): I89.0 - Lymphedema, not elsewhere classified (2) Type 2 diabetes mellitus Status: Chronic Current Visit: Yes Code(s): E11.9 - Type 2 diabetes mellitus without complications (3) Ulcer of left lower extremity with fat layer exposed Status: Acute Current Visit: Yes Code(s): L97.922 - Non-pressure chronic ulcer of unspecified part of left lower leg with fat layer exposed Type of Wound Date of Service: 09/02/19 Chief Complaint: Left lower extremity ulcer. History of Wound: Mr. Russell is a 69yo well-known to the wound center who presents due to new (recurrent) left lower extremity ulcer. Said to have started about a week ago. Initially noted increased fluid drainage. Denies chills, fever or otherwise feeling of unwell. Home health nurse was concerned as well due to significant foul smell. Progress of Wound: Cut himself with a scissors while attempting to take off his wrap. Culture reviewed. Patient still notes greenish drainage. - Physical Exam Vital Signs Temp Pulse Resp BP 97.2 F L 84 18 132/71 H 09/02/19 11:07 09/02/19 11:07 09/02/19 11:07 09/02/19 11:07 General: Alert, Oriented x3, Cooperative, No apparent distress HEENT: Atraumatic, Normocephalic Oral: Moist Mucosa Neck: Supple Lungs: Normal air movement Abdomen: Non Tender, Obese Extremities: No cyanosis, Edema Skin: Ulcer/ Wound Wound Measurements and Assessment WC - Nurse 1 - General Ulcer Measurement Start: 08/26/19 10:46 Freq: Status: Active Protocol: Activity Type Activity Date Activity User E-Sign Co-Sign Detail Recorded Client Recorded Date Recorded By Document 09/02/19 11:07 RB [id number] 09/02/19 11:18 RB 09/02/19 11:07 Wound Center Nurse 1 [Ulcer Assessment] 15. LLE lateral -Combined with other wound No -Current Size (cm) - Length 0.5 -Current Size (cm) - Width 0.2 -Current Size (cm) - Depth 0.3 -Total Square Cm 0.10 -Tunneling No -Undermining/Tunneling No -Circular Undermining No -Exudate Amt Large -Exudate Type Serosanguineous -Wound Margin Thickened & Rolled Under -Granulation Amt Medium (34-66%) -Granulation Quality Red -Slough/Fibrin Yes -Necrosis Amt Small (1-33%) -Necrotic Tissue Type Adherent Slough -Structure Exposed N/A -Texture (Jaylyn-wound Skin Appearance) Assessed, Friable -Moisture (Jaylyn-wound Skin Appearance Assessed, ) Maceration -Color (Jaylyn-wound Skin Appearance) Assessed, Hemosiderin Staining -Temperature (Jaylyn-wound Skin No Abnormality Appearance) (Pt Warm) -Tenderness on Palpation (Jaylyn-wound No Skin Appearance) -Ulcer Cleansing Wound Cleanser -Foul Odor after Cleansing No -Anesthetic Used 4% Lidocaine Solution [Edema Assessment] -Lower Limb Edema Present Yes -Left Calf (cm) 34 -Left Ankle (cm) 32.2 09/02/19 11:16 Wound Center by Dena Ann pt states on Friday he cut his own 3M wraps off per self to shower before home health arrived. Left luz laceration noted today. Initialized on 09/02/19 11:16 - END OF NOTE WC - Nurse 2 - General Ulcer CM Notes Start: 08/26/19 10:46 Freq: Status: Active Protocol: Activity Type Activity Date Activity User E-Sign Co-Sign Detail Recorded Client Recorded Date Recorded By Document 09/02/19 11:37 MW [id number] 09/02/19 11:43 MW 09/02/19 11:37 Wound Center Nurse 2 [Procedure/Treatment] 15. LLE lateral -Time 11:42 -Correct Patient Yes -Correct Side, Site, Position Yes -Correct Procedure Yes -Procedure Performed Yes -Type of Procedure Debridement -Clinical Debridement Subcutaneous -Post Debridement Size (cm) - Length 17.0 -Post Debridement Size (cm) - Width 9.0 -Post Debridement Size (cm) - Depth 0.1 -Total Square Cm 153.00 -Wound/Ulcer Outcome Not Healed -Ulcer Cleansing Rinsed/ Irrigated with Saline -Foul Odor after Cleansing No -Bioengineered Tissue No -Bleeding Controlled with Pressure -Offloading No -Treatment Response Procedure Tolerated Well [See Physician Procedure note for Specifics] Pain Scale: 0-10 Numeric [Pain] -Is Patient Pain Free? Yes Musculoskeletal: No Muscle Wasting Neurological: Cranial nerves II-XII grossly intact Psych/Mental Status: Normal Affect Debridement Note Post-Debridement Measurements/Treatment WC - Nurse 2 - General Ulcer CM Notes Start: 08/26/19 10:46 Freq: Status: Active Protocol: Activity Type Activity Date Activity User E-Sign Co-Sign Detail Recorded Client Recorded Date Recorded By Document 08/26/19 11:04 MW [id number] 08/26/19 11:09 MW Document 09/02/19 11:37 MW [id number] 09/02/19 11:43 MW 08/26/19 09/02/19 11:04 11:37 Wound Center Nurse 2 15. LLE lateral -Time 11:04 11:42 -Correct Patient Yes Yes -Correct Side, Site, Position Yes Yes -Correct Procedure Yes Yes -Procedure Performed Yes Yes -Type of Procedure Debridement Debridement -Clinical Debridement Subcutaneous Subcutaneous -Post Debridement Size (cm) - Length 25.0 17.0 -Post Debridement Size (cm) - Width 13.0 9.0 -Post Debridement Size (cm) - Depth 0.1 0.1 -Total Square Cm 325.00 153.00 -Wound/Ulcer Outcome Not Healed Not Healed -Ulcer Cleansing Rinsed/ Rinsed/ Irrigated with Irrigated with Saline Saline -Foul Odor after Cleansing No No -Bioengineered Tissue No No -Bleeding Controlled with Pressure Pressure -Offloading No No -Treatment Response Procedure Procedure Tolerated Well Tolerated Well Pain Scale: 0-10 Numeric Is Patient Pain Free? Yes Yes Wound debrided: Left lateral leg cluster Type of Debridement: Excisional debridement Anesthesia Used: 4% Lidocaine Solution Depth: Down to and including healthy tissue, in the subcutaneous layer Percentage of wound debrided: 100 Instrument Used: 7mm curette Tissue Removed: Slough and devitalized tissue Severity: Fat Layer Exposed Amount of bleeding with debridement: Mild Bleeding Controlled with: Pressure Patient tolerated procedure well Assessment/Plan Active Problems (Last Reviewed 08/24/19 @ 14:37 by Benita Hong) Ulcer of left lower extremity with fat layer exposed (Acute) Lymphedema of both lower extremities (Chronic) Type 2 diabetes mellitus (Chronic) Assessment: Recurrent left lower extremity ulcer. Chronic lymphedema. Morbid obesity. Plan: Debridement done as documented above. Procedure was well-tolerated. Culture reviewed, multiple growth. Will start on levofloxacin which he has tolerated well in the past. Continue Aquacel extra with ABD over top. 3M wraps for edema management. Change as specified by by home health. Continue lymphedema pump at 40 mmHg. Compliance encouraged. Also strongly advised to elevate his lower extremities and cut back on sodium intake. He voiced understanding. Continue increased protein intake. His questions were answered and he was advised to call with any further questions or concerns. Follow-up in 2 weeks. This note was generated with [employer] dictation software. It may contain incorrect words, spelling, and punctuation that were not noted in checking the note before signing. 111xxx-113xx: 15675 Shelbi subq tissue 20 sq cm/< Add On Codes: 01148 Shelbi subq tissue add-on - Additional square centimeters de odin, please refer to clinical note.
== END 2019-09-09 23:59 ==
LOC: WC 11:00
PROVIDERS: Family Provider Family Medicine; PCP Family Medicine; Visit Provider Internal Medicine
DX: E11.622 Type 2 diabetes mellitus with other skin ulcer (principal); I89.0 Lymphedema, not elsewhere classified; E11.22 Type 2 diabetes mellitus with diabetic chronic kidney disease; N18.3 Chronic kidney disease, stage 3 (moderate); D63.1 Anemia in chronic kidney disease; N25.81 Secondary hyperparathyroidism of renal origin; L97.822 Non-pressure chronic ulcer of other part of left lower leg with fat layer exposed; E78.5 Hyperlipidemia, unspecified; I12.9 Hypertensive chronic kidney disease with stage 1 through stage 4 chronic kidney disease, or unspecified chronic kidney disease; E66.01 Morbid (severe) obesity due to excess calories; Z68.41 Body mass index [BMI] 40.0-44.9, adult
CPT/HCPCS: 11042; 11045; 36415; 80069; 82728; 83540; 83550; 83970; 85027; 87070; 87075; 87077; 87186; 87205; 99213; G0463

== ENCOUNTER 2019-09-30 10:30 | Outpatient (RCR) | payer MEDICARE, OTHER, SELFPAY ==
[2019-09-10 00:11] VITALS: BP 132/71; PULSE 84; RESP 18; TEMP 36.2
[2019-09-16 11:08] VITALS: BP 140/62; PULSE 83; RESP 24; TEMP 36.5; BMI 46.3
--- NOTE | 2019-09-16 11:48 | PN.PCM_ITS ---
(1) Ulcer of left lower extremity with fat layer exposed Status: Chronic Current Visit: Yes Code(s): L97.922 - Non-pressure chronic ulcer of unspecified part of left lower leg with fat layer exposed (2) Lymphedema of both lower extremities Status: Chronic Current Visit: Yes Code(s): I89.0 - Lymphedema, not elsewhere classified (3) Type 2 diabetes mellitus Status: Chronic Current Visit: Yes Code(s): E11.9 - Type 2 diabetes mellitus without complications Type of Wound Date of Service: 09/16/19 Chief Complaint: Left lower extremity ulcer. History of Wound: Mr. Russell is a 69yo well-known to the wound center who presents due to new (recurrent) left lower extremity ulcer. Said to have started about a week ago. Initially noted increased fluid drainage. Denies chills, fever or otherwise feeling of unwell. Home health nurse was concerned as well due to significant foul smell. Progress of Wound: Medial leg now open. Foul smell and drainage siad to have improved. Has completed antibiotics. - Physical Exam Vital Signs Temp Pulse Resp BP 97.7 F L 83 24 H 140/62 H 09/16/19 11:08 09/16/19 11:08 09/16/19 11:08 09/16/19 11:08 General: Alert, Oriented x3, Cooperative, No apparent distress HEENT: Atraumatic, Normocephalic Oral: Moist Mucosa Neck: Supple Lungs: Normal air movement Abdomen: Non Tender, Obese Extremities: No cyanosis, Edema Skin: Ulcer/ Wound Wound Measurements and Assessment WC - Nurse 1 - General Ulcer Measurement Start: 09/16/19 11:08 Freq: Status: Active Protocol: Activity Type Activity Date Activity User E-Sign Co-Sign Detail Recorded Client Recorded Date Recorded By Document 09/16/19 11:08 DL [id number] 09/16/19 11:18 DL 09/16/19 11:08 Wound Center Nurse 1 [Ulcer Assessment] 15. LLE lateral -Current Size (cm) - Length 0.1 -Current Size (cm) - Width 0.1 -Current Size (cm) - Depth 0.1 -Total Square Cm 0.01 -Photo Taken No -Exudate Amt Medium -Exudate Type Serosanguineous -Wound Margin Indistinct, Non -Visible -Granulation Amt Large (67-100%) -Granulation Quality [place] -Necrosis Amt Small (1-33%) -Necrotic Tissue Type Adherent Slough -Structure Exposed N/A -Texture (Jaylyn-wound Skin Appearance) Excoriation, Localized Edema -Moisture (Jaylyn-wound Skin Appearance Weeping ) -Color (Jaylyn-wound Skin Appearance) Hemosiderin Staining -Temperature (Jaylyn-wound Skin No Abnormality Appearance) (Pt Warm) -Tenderness on Palpation (Jaylyn-wound No Skin Appearance) -Ulcer Cleansing Wound Cleanser -Anesthetic Used 4% Lidocaine Solution [Edema Assessment] -Left Calf (cm) 50 -Left Ankle (cm) 34.4 WC - Nurse 2 - General Ulcer CM Notes Start: 09/16/19 11:08 Freq: Status: Active Protocol: Activity Type Activity Date Activity User E-Sign Co-Sign Detail Recorded Client Recorded Date Recorded By Document 09/16/19 11:38 MW [id number] 09/16/19 11:47 MW 09/16/19 11:38 Wound Center Nurse 2 [Procedure/Treatment] #16 left medial LE -Time 11:44 -Correct Patient Yes -Correct Side, Site, Position Yes -Correct Procedure Yes -Procedure Performed Yes -Type of Procedure Debridement -Clinical Debridement Subcutaneous -Post Debridement Size (cm) - Length 10.5 -Post Debridement Size (cm) - Width 11.0 -Post Debridement Size (cm) - Depth 0.1 -Total Square Cm 115.50 -Wound/Ulcer Outcome Not Healed -Ulcer Cleansing Rinsed/ Irrigated with Saline -Foul Odor after Cleansing No -Bioengineered Tissue No -Bleeding Controlled with Pressure -Offloading No -Treatment Response Procedure Tolerated Well 15. LLE lateral -Time 11:44 -Correct Patient Yes -Correct Side, Site, Position Yes -Correct Procedure Yes -Procedure Performed Yes -Type of Procedure Debridement -Clinical Debridement Subcutaneous -Post Debridement Size (cm) - Length 15.0 -Post Debridement Size (cm) - Width 11.0 -Post Debridement Size (cm) - Depth 0.1 -Total Square Cm 165.00 -Wound/Ulcer Outcome Not Healed -Ulcer Cleansing Rinsed/ Irrigated with Saline -Foul Odor after Cleansing No -Bioengineered Tissue No -Bleeding Controlled with Pressure -Offloading No -Treatment Response Procedure Tolerated Well [See Physician Procedure note for Specifics] Pain Scale: 0-10 Numeric [Pain] -Is Patient Pain Free? Yes Neurological: Cranial nerves II-XII grossly intact Psych/Mental Status: Normal Affect Debridement Note Post-Debridement Measurements/Treatment WC - Nurse 2 - General Ulcer CM Notes Start: 09/16/19 11:08 Freq: Status: Active Protocol: Activity Type Activity Date Activity User E-Sign Co-Sign Detail Recorded Client Recorded Date Recorded By Document 09/16/19 11:38 MW [id number] 09/16/19 11:47 MW 09/16/19 11:38 Wound Center Nurse 2 #16 left medial LE -Time 11:44 -Correct Patient Yes -Correct Side, Site, Position Yes -Correct Procedure Yes -Procedure Performed Yes -Type of Procedure Debridement -Clinical Debridement Subcutaneous -Post Debridement Size (cm) - Length 10.5 -Post Debridement Size (cm) - Width 11.0 -Post Debridement Size (cm) - Depth 0.1 -Total Square Cm 115.50 -Wound/Ulcer Outcome Not Healed -Ulcer Cleansing Rinsed/ Irrigated with Saline -Foul Odor after Cleansing No -Bioengineered Tissue No -Bleeding Controlled with Pressure -Offloading No -Treatment Response Procedure Tolerated Well 15. LLE lateral -Time 11:44 -Correct Patient Yes -Correct Side, Site, Position Yes -Correct Procedure Yes -Procedure Performed Yes -Type of Procedure Debridement -Clinical Debridement Subcutaneous -Post Debridement Size (cm) - Length 15.0 -Post Debridement Size (cm) - Width 11.0 -Post Debridement Size (cm) - Depth 0.1 -Total Square Cm 165.00 -Wound/Ulcer Outcome Not Healed -Ulcer Cleansing Rinsed/ Irrigated with Saline -Foul Odor after Cleansing No -Bioengineered Tissue No -Bleeding Controlled with Pressure -Offloading No -Treatment Response Procedure Tolerated Well Pain Scale: 0-10 Numeric Is Patient Pain Free? Yes Wound debrided: Left Leg Medial Type of Debridement: Excisional debridement Anesthesia Used: 4% Lidocaine Solution Depth: Down to and including healthy tissue, in the subcutaneous layer Percentage of wound debrided: 100 Instrument Used: 5mm curette Tissue Removed: Slough and devitalized tissue Severity: Fat Layer Exposed Amount of bleeding with debridement: Mild Bleeding Controlled with: Pressure Patient tolerated procedure well - Additional Wound Wound debrided: Leg Leg Lateral. Type of Debridement: Excisional debridement Anesthesia Used: 4% Lidocaine Solution Depth: Down to and including healthy tissue, in the subcutaneous layer Percentage of wound debrided: 100 Instrument Used: 5mm curette Tissue Removed: Slough and devitalized tissue Severity: Fat Layer Exposed Amount of bleeding with debridement: Mild Bleeding Controlled with: Pressure Patient tolerated procedure: Patient tolerated procedure well Assessment/Plan Active Problems (Last Reviewed 08/24/19 @ 14:37 by Benita Hong) Ulcer of left lower extremity with fat layer exposed (Chronic) Lymphedema of both lower extremities (Chronic) Type 2 diabetes mellitus (Chronic) Assessment: Recurrent left lower extremity ulcer. Chronic lymphedema. Morbid obesity. Plan: Debridement done as documented above. Procedure was well-tolerated. Continue Aquacel extra with ABD over top. 3M wraps for edema management. Change as specified by by home health. Continue lymphedema pump at 40 mmHg. Compliance encouraged. Also strongly advised to elevate his lower extremities and cut back on sodium intake. He voiced understanding. Continue increased protein intake. His questions were answered and he was advised to call with any further questions or concerns. Follow-up in 2 weeks. This note was generated with [employer] dictation software. It may contain incorrect words, spelling, and punctuation that were not noted in checking the note before signing. 111xxx-113xx: [id number] Shelbi subq tissue 20 sq cm/< Add On Codes: [id number] Shelbi subq tissue add-on
--- NOTE | 2019-09-23 13:56 | NURSING ---
carolina from [facility] called, Pts RLE is now weeping. H.H. continuing compression and kerlex, Will elevate legs more. Pt to f/u 09/29. Will call if worsens, [employer] aware.
[2019-09-30 10:38] VITALS: BP 124/64; PULSE 74; RESP 22; TEMP 36.8; BMI 46.3
--- NOTE | 2019-09-30 11:54 | PN.PCM_ITS ---
(1) Ulcer of left lower extremity with fat layer exposed Status: Chronic Current Visit: Yes Code(s): L97.922 - Non-pressure chronic ulcer of unspecified part of left lower leg with fat layer exposed (2) Lymphedema of both lower extremities Status: Chronic Current Visit: Yes Code(s): I89.0 - Lymphedema, not elsewhere classified (3) Type 2 diabetes mellitus Status: Chronic Current Visit: Yes Code(s): E11.9 - Type 2 diabetes mellitus without complications Type of Wound Date of Service: 09/30/19 Chief Complaint: Left lower extremity ulcer. History of Wound: Mr. Russell is a 69yo well-known to the wound center who presents due to new (recurrent) left lower extremity ulcer. Said to have started about a week ago. Initially noted increased fluid drainage. Denies chills, fever or otherwise feeling of unwell. Home health nurse was concerned as well due to significant foul smell. Progress of Wound: Has not used his lymphedema pump in about 4 days, patient states that it is in a repair shop. No other concerns. - Physical Exam Vital Signs Temp Pulse Resp BP 98.2 F 74 22 H 124/64 H 09/30/19 10:38 09/30/19 10:38 09/30/19 10:38 09/30/19 10:38 General: Alert, Oriented x3, Cooperative, No apparent distress HEENT: Atraumatic, Normocephalic Oral: Moist Mucosa Neck: Supple Lungs: Normal air movement Abdomen: Non Tender, Obese Extremities: No cyanosis, Edema Skin: Ulcer/ Wound Wound Measurements and Assessment WC - Nurse 1 - General Ulcer Measurement Start: 09/16/19 11:08 Freq: Status: Active Protocol: Activity Type Activity Date Activity User E-Sign Co-Sign Detail Recorded Client Recorded Date Recorded By Document 09/30/19 10:38 DL [id number] 09/30/19 10:47 DL 09/30/19 10:38 Wound Center Nurse 1 [Ulcer Assessment] #16 left medial LE -Current Size (cm) - Length 5 -Current Size (cm) - Width 4.5 -Current Size (cm) - Depth 0.1 -Total Square Cm 22.5 -Photo Taken No -Exudate Amt Small -Exudate Type Serosanguineous -Wound Margin Indistinct, Non -Visible -Granulation Amt Large (67-100%) -Granulation Quality [place] -Necrosis Amt Small (1-33%) -Necrotic Tissue Type Adherent Slough -Structure Exposed N/A -Texture (Jaylyn-wound Skin Appearance) Excoriation, Localized Edema ,Scarring -Moisture (Jaylyn-wound Skin Appearance Maceration, ) Weeping -Color (Jaylyn-wound Skin Appearance) Hemosiderin Staining -Temperature (Jaylyn-wound Skin No Abnormality Appearance) (Pt Warm) -Tenderness on Palpation (Jaylyn-wound No Skin Appearance) -Ulcer Cleansing Wound Cleanser -Foul Odor after Cleansing No -Anesthetic Used 4% Lidocaine Solution 15. LLE lateral cluster -Current Size (cm) - Length 24 -Current Size (cm) - Width 26 -Current Size (cm) - Depth 0.1 -Total Square Cm 624 -Photo Taken No -Exudate Amt Medium -Exudate Type Serosanguineous -Wound Margin Indistinct, Non -Visible -Granulation Amt Medium (34-66%) -Granulation Quality [place] -Necrosis Amt Medium (34-66%) -Necrotic Tissue Type Adherent Slough -Structure Exposed N/A -Texture (Jaylyn-wound Skin Appearance) Excoriation, Localized Edema ,Scarring -Moisture (Jaylyn-wound Skin Appearance Maceration, ) Weeping -Color (Jaylyn-wound Skin Appearance) Hemosiderin Staining -Temperature (Jaylyn-wound Skin No Abnormality Appearance) (Pt Warm) -Tenderness on Palpation (Jaylyn-wound No Skin Appearance) -Ulcer Cleansing Wound Cleanser -Foul Odor after Cleansing No -Anesthetic Used 4% Lidocaine Solution [Edema Assessment] -Right Calf (cm) 43.2 -Right Ankle (cm) 30 -Left Calf (cm) 48.5 -Left Ankle (cm) 35.5 WC - Nurse 2 - General Ulcer CM Notes Start: 09/16/19 11:08 Freq: Status: Active Protocol: Activity Type Activity Date Activity User E-Sign Co-Sign Detail Recorded Client Recorded Date Recorded By Document 09/30/19 11:00 MW [id number] 09/30/19 11:07 MW 09/30/19 11:00 Wound Center Nurse 2 [Procedure/Treatment] #16 left medial LE -Time 11:02 -Correct Patient Yes -Correct Side, Site, Position Yes -Correct Procedure Yes -Procedure Performed Yes -Type of Procedure Debridement -Clinical Debridement Subcutaneous -Post Debridement Size (cm) - Length 11.0 -Post Debridement Size (cm) - Width 7.0 -Post Debridement Size (cm) - Depth 0.1 -Total Square Cm 77.00 -Wound/Ulcer Outcome Not Healed -Ulcer Cleansing Rinsed/ Irrigated with Saline -Foul Odor after Cleansing No -Bioengineered Tissue No -Bleeding Controlled with Pressure -Offloading No -Treatment Response Procedure Tolerated Well 15. LLE lateral cluster -Time 11:02 -Correct Patient Yes -Correct Side, Site, Position Yes -Correct Procedure Yes -Procedure Performed Yes -Type of Procedure Debridement -Clinical Debridement Subcutaneous -Post Debridement Size (cm) - Length 17.0 -Post Debridement Size (cm) - Width 10.0 -Post Debridement Size (cm) - Depth 0.1 -Total Square Cm 170.00 -Wound/Ulcer Outcome Not Healed -Ulcer Cleansing Rinsed/ Irrigated with Saline -Foul Odor after Cleansing No -Bioengineered Tissue No -Bleeding Controlled with Pressure -Offloading No -Treatment Response Procedure Tolerated Well [See Physician Procedure note for Specifics] Pain Scale: 0-10 Numeric [Pain] -Is Patient Pain Free? Yes Musculoskeletal: No Muscle Wasting Neurological: Cranial nerves II-XII grossly intact Psych/Mental Status: Normal Affect Debridement Note Post-Debridement Measurements/Treatment WC - Nurse 2 - General Ulcer CM Notes Start: 09/16/19 11:08 Freq: Status: Active Protocol: Activity Type Activity Date Activity User E-Sign Co-Sign Detail Recorded Client Recorded Date Recorded By Document 09/16/19 11:38 MW [id number] 09/16/19 11:47 MW Document 09/30/19 11:00 MW [id number] 09/30/19 11:07 MW 09/16/19 09/30/19 11:38 11:00 Wound Center Nurse 2 #16 left medial LE -Time 11:44 11:02 -Correct Patient Yes Yes -Correct Side, Site, Position Yes Yes -Correct Procedure Yes Yes -Procedure Performed Yes Yes -Type of Procedure Debridement Debridement -Clinical Debridement Subcutaneous Subcutaneous -Post Debridement Size (cm) - Length 10.5 11.0 -Post Debridement Size (cm) - Width 11.0 7.0 -Post Debridement Size (cm) - Depth 0.1 0.1 -Total Square Cm 115.50 77.00 -Wound/Ulcer Outcome Not Healed Not Healed -Ulcer Cleansing Rinsed/ Rinsed/ Irrigated with Irrigated with Saline Saline -Foul Odor after Cleansing No No -Bioengineered Tissue No No -Bleeding Controlled with Pressure Pressure -Offloading No No -Treatment Response Procedure Procedure Tolerated Well Tolerated Well 15. LLE lateral cluster -Time 11:44 11:02 -Correct Patient Yes Yes -Correct Side, Site, Position Yes Yes -Correct Procedure Yes Yes -Procedure Performed Yes Yes -Type of Procedure Debridement Debridement -Clinical Debridement Subcutaneous Subcutaneous -Post Debridement Size (cm) - Length 15.0 17.0 -Post Debridement Size (cm) - Width 11.0 10.0 -Post Debridement Size (cm) - Depth 0.1 0.1 -Total Square Cm 165.00 170.00 -Wound/Ulcer Outcome Not Healed Not Healed -Ulcer Cleansing Rinsed/ Rinsed/ Irrigated with Irrigated with Saline Saline -Foul Odor after Cleansing No No -Bioengineered Tissue No No -Bleeding Controlled with Pressure Pressure -Offloading No No -Treatment Response Procedure Procedure Tolerated Well Tolerated Well Pain Scale: 0-10 Numeric Is Patient Pain Free? Yes Yes Wound debrided: Left lateral cluster Type of Debridement: Excisional debridement Anesthesia Used: 4% Lidocaine Solution Depth: Down to and including healthy tissue, in the subcutaneous layer Percentage of wound debrided: 100 Instrument Used: 5mm curette Tissue Removed: Slough and devitalized tissue Severity: Fat Layer Exposed Amount of bleeding with debridement: Mild Bleeding Controlled with: Pressure Patient tolerated procedure well - Additional Wound Wound debrided: Left medial cluster Type of Debridement: Excisional debridement Anesthesia Used: 4% Lidocaine Solution Depth: Down to and including healthy tissue, in the subcutaneous layer Percentage of wound debrided: 100 Instrument Used: 5mm curette Tissue Removed: Slough and devitalized tissue Severity: Fat Layer Exposed Amount of bleeding with debridement: Mild Bleeding Controlled with: Pressure Patient tolerated procedure: Patient tolerated procedure well Assessment/Plan Active Problems (Last Reviewed 08/24/19 @ 14:37 by Benita Hong) Ulcer of left lower extremity with fat layer exposed (Chronic) Lymphedema of both lower extremities (Chronic) Type 2 diabetes mellitus (Chronic) Assessment: Recurrent left lower extremity ulcer. Chronic lymphedema. Morbid obesity. Plan: Debridement done as documented above. Procedure was well-tolerated. Continue Aquacel extra with ABD over top. 3M wraps to both lower extremities for edema management. Change on dates as specified in order form by home health care. Continue lymphedema pump at 40 mmHg. Compliance encouraged. Also strongly advised to elevate his lower extremities and cut back on sodium intake. He voiced understanding. Continue increased protein intake. His questions were answered and he was advised to call with any further questions or concerns. Follow-up in 2 weeks. This note was generated with [employer] dictation software. It may contain incorrect words, spelling, and punctuation that were not noted in checking the note before signing. [id number]: [id number] Shelbi subq tissue 20 sq cm/< Add On Codes: 09128 Shelbi subq tissue add-on
== END 2019-10-10 23:59 ==
LOC: WC 10:30
PROVIDERS: Family Provider Family Medicine; PCP Family Medicine; Visit Provider Internal Medicine
DX: E11.622 Type 2 diabetes mellitus with other skin ulcer (principal); L97.822 Non-pressure chronic ulcer of other part of left lower leg with fat layer exposed; I89.0 Lymphedema, not elsewhere classified; R60.9 Edema, unspecified; E66.01 Morbid (severe) obesity due to excess calories
CPT/HCPCS: 11042; 11045; 29581

== ENCOUNTER 2019-10-06 13:16 | Inpatient (IN) | payer MEDICARE, OTHER, SELFPAY ==
[2019-10-06] VITALS (28 sets, daily range): BP systolic 74–144; BP diastolic 43–76; PULSE 74–119; RESP 13–34; TEMP 35.9–38.2; O2SAT 89–100; BMI 44.6; BMI 44.5; BMI 44.7
--- NOTE | 2019-10-06 14:19 | EKG12_ITS ---
Test Reason : SOB Blood Pressure : / mmHG Vent. Rate : 112 BPM Atrial Rate : 112 BPM P-R Int : 178 ms QRS Dur : 138 ms QT Int : 360 ms P-R-T Axes : 011 -32 009 degrees QTc Int : 491 ms Sinus tachycardia Left axis deviation Right bundle branch block Abnormal ECG Confirmed by HAWA LOZANO ([id number]), writer editor KIANA LEIJA ([id number]) on 10/11/2019 10:53:56 AM Referred By: RILEY Confirmed By:HAWA LOZANO
--- NOTE | 2019-10-06 14:23 | ED.VISSUMM ---
- ER Visit Summary Date of Service: 10/06/19 Chief Complaint: Shortness of breath History of Present Illness: The patient is a 69 M who presents with shortness of breath that has been getting worse over the past 2 days. Patient states it is gradually gotten worse. Patient states his breathing is worse with walking and exertion. Patient states it is better with rest. Patient admits to a cough with some clear sputum. Patient thinks this is sinus drainage. Patient denies any sore throat, rhinorrhea, or ear pain. Patient admits to fever of 103 at home. Patient denies any recent travel or recent surgery. Patient denies any history of DVT or PE. Patient does have a chronic wound to his left lower extremity. Patient also states that he chronically has redness to his left lower extremity. Patient states he follows up with the wound care center for this. Physical Examination: Vital signs showed a temperature of 100.8 with a mild tachycardia of 119 and a tachypnea of 34. Patient is in no acute distress. Oral mucosa is pink and moist. Neck is supple. Trachea is midline. There is no JVD. Heart was regular rate and rhythm. Lungs are clear but diminished bilaterally. There is good respiratory effort. Abdomen is soft. Bowel sounds are normal. There is no tenderness. Extremities are intact. There is some erythema and warmth over the left lower extremity. There is no discharge or drainage. There is no calf tenderness. Cranial nerves II through XII are intact. There are no focal motor or sensory deficits. Test Results: CBC shows a leukocytosis of 16.0. Platelets are slightly low at 135. BUN and creatinine were increased from previous results to 71 and 3.08. Chest x-ray shows some vascular congestion with questionable CHF. This was interpreted by the radiologist and reviewed by myself. EKG showed sinus tachycardia with frequent PACs with a rate of 112. There is a right bundle branch block pattern. There are no acute ST or T wave changes. The right bundle branch block is new compared to previous EKG dated 08/27/2017. Emergency Department Course and Treatment: Patient was given IV fluids here. Patient's blood pressure dropped to 74/43. Patient was given the complete 30 cc/kg bolus. Patient was started on Zosyn and vancomycin. Case was discussed with the hospitalist. Patient will be admitted to ICU. Patient understood and was agreeable with the plan. All questions were answered. Disposition: Admit to ICU Impression: 1. Septic shock 2. Cellulitis Critical care time 45 minutes. This was time spent performing physical exam obtaining history, reviewing records, reviewing and interpreting results, determining treatment, and discussion with consultants. This note was generated with [employer] software. It may contain incorrect words, spelling, and punctuation that were not noted in review of the chart prior to signing ED Disposition - Plan for ED Patient: Disposition: Acute Care Hospital [facility] Diagnosis: Septic shock, Cellulitis of left leg
--- NOTE | 2019-10-06 14:27 | NURSING ---
NO OLD EKGS
[2019-10-06] MEDS: Acetaminophen 500 MG Tablet 1000 MG PO (14:33)
[2019-10-06] MEDS: 0.9% Normal Saline 1,000 ML 999 ML IV ×5 (14:34→20:33)
--- NOTE | 2019-10-06 14:36 | RAD_ITS ---
STUDY: X-RAY CHEST REASON FOR EXAM: Male, 69 years old. SOB, COUGH, FEVER, CHILLS, SHAKING FOR 2 DAYS. TEMP WAS 103 AT HOME. SPO2 90 ON RA PER EMS. TECHNIQUE: Single AP portable view of the chest. COMPARISON: None. FINDINGS: EKG electrodes are seen. There is evidence of vascular congestion and a mild degree of CHF. There is no demonstrated pleural abnormality. There is mild cardiac enlargement. Normal mediastinum and calli. Normal visualized pulmonary arteries. There is atherosclerotic tortuosity of the aortic arch and descending thoracic aorta. There are diffuse degenerative changes of the visualized thoracic spine. Normal visualized ribs, clavicles, and shoulders. There is no demonstrated abnormality of the visualized soft tissue structures of the upper abdomen. RAD/Chest 1 View (Portable) IMPRESSION: Vascular congestion and mild degree of CHF. Electronically Signed: Lukasz Akers, at 14:53 EDT , Service support ,
[2019-10-06 14:41] LABS: Absolute Lymphocyte Count 0.17 X10^3/uL (0.83-4.51); Absolute Neutrophil Count 14.8 X10^3/uL (2.0-7.7); Basophil# 0.01 X10^3/uL; Basophil% 0.1 % (0-1); Hematocrit 30.6 % (40-54); Hemoglobin 9.7 g/dL (13.0-16.5); Lymphocyte # 0.17 X10^3/ul (4.0); Lymphocyte % 1.1 % (19-41); Mean Corp Hgb Conc 31.7 g/dL (32-36); Mean Corpuscular Hgb 31.4 pg (27.0-32.0); Mean Platelet Vol. 12.2 fl (6.2-12.0); NRBC Flagged by Analyzer 0 % (0-5); Neutrophil # 14.83 X10^3/uL (2.7-7.7); Neutrophil % 92.9 % (47-70); POSITIVE DIFFERENTIAL YES; Platelet Count 135 K/mm3 (150-450); RBC Distribution Width CV 15.2 % (11.6-14.6); RBC Distribution Width SD 54.9 fl (35.1-43.9); Red Blood Count 3.09 M/mm3 (4.6-6.2)
[2019-10-06 14:45] LABS: Differential Indicated SCAN CRITERIA MET
[2019-10-06 15:02] LABS: ALB/GLOB Ratio 0.4 RATIO (0.9-2.4); AST(SGOT) 39 U/L (15-37); Alanine Aminotransfer ALT/SGPT 30 U/L (16-61); Albumin, Serum 2.3 g/dL (3.2-5.0); Alkaline Phosphatase 133 U/L (45-117); Anion Gap 9 (5-15); BUN 71 mg/dL (7-18); BUN/Creat Ratio 23.1 RATIO (10-20); Chloride 101 mmol/L (98-107); Creatinine, Serum 3.08 mg/dL (0.70-1.30); EST Glomerular Filtration Rate 21 mL/min (>60); Est Glom Filt Rate - Afr Amer 26 mL/min (>60); Estimated Creatinine Clearance 23.04 ml/min; Globulin 5.2 g/dL (2.2-4.2); Glucose 114 mg/dL (74-106); Potassium 4.9 mmol/L (3.5-5.1); Protein, Total 7.5 g/dL (6.4-8.2); Sodium Level 133 mmol/L (136-145)
[2019-10-06 15:03] LABS: Lactic Acid 1.8 mmol/L (0.4-1.9)
--- NOTE | 2019-10-06 16:27 | NURSING ---
DR CHRIS MORALES
--- NOTE | 2019-10-06 16:34 | NURSING ---
ICU [facility] SEPTIC SHOCK, CELLULITIS
--- NOTE | 2019-10-06 17:06 | HP.PCM_ITS ---
Problem List (1) Ulcer of left lower extremity with fat layer exposed Status: Chronic (2) Lymphedema of both lower extremities Status: Chronic (3) Ulcer of left foot Status: Chronic (4) Ulcer of right lower extremity with fat layer exposed Status: Resolved (5) Cellulitis of left lower extremity Status: Acute (6) Septic shock Status: Acute (7) Cardiac murmur Status: Chronic (8) Stage 2 chronic kidney disease Status: Chronic (9) Essential hypertension Status: Chronic (10) Anemia Status: Acute (11) Gout Status: Chronic Qualifiers: Gout site: unspecified site Gout etiology: unspecified cause Chronicity: chronic Presence of tophus: without tophus Qualified Code(s): [id number].[id number] - Chronic gout, unspecified, without tophus (tophi) (12) Type 2 diabetes mellitus Status: Chronic (13) Iron deficiency anemia Status: Chronic (14) Hyperlipidemia Status: Chronic Qualifiers: (15) Septic shock Status: Acute (16) DEEPTI (acute kidney injury) Status: Acute History of Present Illness Date of Admission: 10/06/19 Chief Complaint: short of breath. nasal congestion. The patient is a 69 year old M who was in his normal state of health but then over the past couple days as there is been progressively short of breath, nasal congestion and cough. Denies any anosmia. Presented to the emergency room and was initially normotensive and then developed blood pressure readings into the 70s. Patient did not have a clear source of infection and did receive Pipracil and/tazobactam and vancomycin. Patient is currently receiving the 30 cc/kg bolus of IV fluids. Patient does have history of chronic wounds to his lower extremities but states that his legs have been unchanged. States that his left leg is chronically red and chronically more swollen than his right. He lives in a group home community and denies any sick contacts. States that his contacts with outside was pretty minimal but once again denies any sick contacts. [] Past Medical History Past Medical History (Chronic Problems): Chronic Problems (Last Reviewed 08/24/19 @ 14:37 by Benita Hong) Ulcer of left lower extremity with fat layer exposed (Chronic) Lymphedema of both lower extremities (Chronic) Ulcer of left foot (Chronic) Cardiac murmur (Chronic) Stage 2 chronic kidney disease (Chronic) Essential hypertension (Chronic) Gout (Chronic) Type 2 diabetes mellitus (Chronic) Iron deficiency anemia (Chronic) Hyperlipidemia (Chronic) Medical History: Medical History (Last Reviewed 10/06/19 @ 17:[address] 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 Diabetic neuropathy E11.40 Hyperuricemia E79.0 Chronic kidney disease (Inactive) N18.9 Hypertension (Inactive) I10 Allergies No Known Allergies Allergy (Verified 10/06/19 13:29) Home Medications: Ambulatory Orders Medication Instructions Recorded Ascorbic Acid [Vitamin C] 500 mg PO DAILY@0800 03/08/17 Carvedilol [Coreg (Beta [address])] 6.25 mg PO BID 03/08/17 Furosemide [Lasix] 40 mg PO DAILY 03/08/17 Magnesium 500 mg PO DAILY 03/08/17 allopurinol 300 mg tablet 300 mg PO DAILY 08/23/19 cholecalciferol (vitamin D3) 125 125 mcg PO DAILY 08/23/19 mcg (5,000 unit) capsule enalapril maleate 10 mg tablet 10 mg PO BID tab 08/23/19 ferrous sulfate 325 mg (65 mg 325 mg PO BID 08/23/19 iron) tablet cyanocobalamin (vitamin B-12) 1,000 mcg PO DAILY 08/24/19 1,000 mcg capsule omega-3 fatty acids 1,000 mg 1,000 mg PO DAILY 08/24/19 capsule Multivitamin with Minerals 1 tab PO DAILY 10/06/19 [Multiple Vitamin] Potassium Chloride [Klor-Con M10] 20 meq PO DAILY 10/06/19 Simvastatin 40 mg PO QHS 10/06/19 Surgical History: Surgical History (Last Reviewed 10/06/19 @ 17:[address] Guillermo Fuchs DO) S/P colonoscopy Z98.890 Status post tonsillectomy Z90.89 Surgical History: no surgical history Psychiatric History: No pertinent psych hx Smoking Status: Never smoker - *Family History Maternal Family History: Family History (Last Reviewed 10/06/19 @ 17:[address] Guillermo Fuchs DO) Mother Cancer Father Hypertension History Items: Cancer Paternal Family History: Family History (Last Reviewed 10/06/19 @ 17:[address] Guillermo Fuchs DO) Mother Cancer Father Hypertension History Items: - - Head trauma. Review of Systems Constitutional: Reports: Anorexia, Malaise. Denies: Chills, Fever Eyes: Denies: Blurred vision, Double vision HEENT: Denies: Head Aches, Sinus Congestion, Sinus Drainage Cardiovascular: Reports: Edema - Chronic and unchanged. Denies: Chest Pain, Palpitations Respiratory: Reports: Cough, Shortness of Breath Gastrointestinal: Reports: Nausea. Denies: Abdominal Pain Genitourinary: Reports: - - Dark urine. Denies: Dysuria Musculoskeletal: Denies: Joint Pain, Joint Tenderness Skin: Reports: - - Chronic redness to the left lower extremity Neurological: Denies: Numbness, Tingling, Focal weakness Psychiatric: Denies: Anxiety, Depression Endocrine: Denies: Change in Body Habitus, Heat/ Cold Intolerance Hematologic/ Lymphatic: Denies: Easy Bruising, Easy Bleeding, Hx of blood clot Comment: All review of systems were negative except as mentioned above in the history of present illness and the other review of systems. VTE Information - Inpt Only VTE Present on Admission: No VTE Mechan Device Prophylaxis: None VTE Pharm Prophylaxis ordered?: No Patient Problems: Active and Suspected Problems (Last Reviewed 08/24/19 @ 14:37 by Benita Hong) Cellulitis of left lower extremity (Acute) Septic shock (Acute) Septic shock (Acute) DEEPTI (acute kidney injury) (Acute) - Physical Exam Vitals/I&O's: Vital Signs Temp Pulse Resp BP Pulse Ox 37.7 C H 97 28 H 74/43 L 98 10/06/19 16:06 10/06/19 16:38 10/06/19 16:38 10/06/19 16:38 10/06/19 16:38 Oxygen Flow Rate (L/min) 2 Oxygen Delivery Method Nasal Cannula Weight: 141.2 kg Body Mass Index (BMI) 44.6 General: Alert, Cooperative, No apparent distress, - - Nontoxic. Afebrile. No respiratory distress. No conversational dyspnea. HEENT: Atraumatic, Normocephalic Oral: Moist Mucosa, No Gingival or Mucosal Lesions/ Ulcerations Neck: No JVD, No Nodes, Trachea Midline Lungs: Clear to auscultation, Normal air movement, No rhonchi, No wheeze Cardiovascular: Regular rate, Regular Rhythm, - - Distant heart sounds Abdomen: Bowel Sounds Present, Soft, Non Tender, Non-Distended, No Hepato- splenomegaly Extremities: No Calf Tenderness, Edema Skin: - - Bandages and Krunal wraps removed from his lower extremities. Patient does have some adherent dressing to some of his wounds but no evidence of any cellulitis nor any infected ulcers that I can appreciate. Was again I did not take down the bandages over over his left lateral luz as it appeared to be a dherent and I did not have any saline to withdraw it back further but there was no surrounding erythema from the periphery. Did have a bandage on his anterior luz, which was not removed but did not have any surrounding erythema. Slight redness of the left thigh as compared to the right. Musculoskeletal: No Tenderness to Palpation of Joints or Extremities, No Muscle Wasting Lymphatic: No Cervical, Supraclavicular, or Inguinal Adenopathy, Cervical Adenopathy Neurological: Sensory exam intact to light touch and pain, - - No clonus Psych/Mental Status: Normal Affect, Appropriate Microbiology Past 72 Hours 10/06/19 14:35 Mucosa - Nose Influenza Types A,B Direct FA ([facility]) - Final Laboratory Results 10/06/19 14:15: WBC 16.0 H, RBC 3.09 L, Hgb 9.7 L, Hct 30.6 L, MCV 99.0 H, MCH 31.4, MCHC 31.7 L, RDW Std Deviation 54.9 H, RDW Coeff of Inocencio 15.2 H, Plt Count 135 L, MPV 12.2 H, Immature Gran % (Auto) 0.900, Neut % (Auto) 92.9 H, Lymph % (Auto) 1.1 L, [place] % (Auto) 5.0, Eos % (Auto) 0.0, Baso % (Auto) 0.1, Absolute Neuts (auto) 14.8 H, Absolute Lymphs (auto) 0.17 L, Nucleated RBC % 0, Differential Comment COMMENT 10/06/19 14:15: Sodium 133 L, Potassium 4.9, Chloride 101, Carbon Dioxide 23.0, Anion Gap 9, BUN 71 H, Creatinine 3.08 H, Estim Creat Clear Calc 23.04, Est GFR (MDRD) Af Amer 26 L, Est GFR (MDRD) Non-Af 21 L, BUN/Creatinine Ratio 23.1 H, Glucose 114 H, Calcium 9.0, Total Bilirubin 0.70, AST 39 H, ALT 30, Alkaline Phosphatase 133 H, Total Protein 7.5, Albumin 2.3 L, Globulin 5.2 H, Albumin/Globulin Ratio 0.4 L 10/06/19 14:15: Lactic Acid 1.8 10/06/19 14:35: COVID-19 ([facility]) Cancelled Clinical Impression(s) from Imaging Studies Chest X-Ray 10/06/19 14:36 IMPRESSION: Vascular congestion and mild degree of CHF. Electronically Signed: Lukasz Akers, at 14:53 EDT , Service support , Current Medications Vancomycin HCl 2,000 mg/ (Sodium Chloride) 540 mls @ 250 mls/hr IV X1 ONE Stop: 10/06/19 17:39 Last Admin: 10/06/19 16:00 Dose: 250 mls/hr Documented by: Sodium Chloride () 1,000 mls @ 999 mls/hr IV .Q1H1M DONNA; Protocol Stop: 10/06/19 19:45 Last Admin: 10/06/19 16:33 Dose: 999 mls/hr Documented by: Assessment/Plan All Active Problems (Last Reviewed 08/24/19 @ 14:37 by Benita Hong) Ulcer of right lower extremity with fat layer exposed (Resolved) Cellulitis of left lower extremity (Acute) Septic shock (Acute) Septic shock (Acute) DEEPTI (acute kidney injury) (Acute) Anemia (Acute) 1. Septic shock: * Developed shortly after arrival. Time of onset appears to be 1616 where his blood pressure was 75/54. * Currently receiving the 30 cc/kg bolus. Will need to be reassessed. * I did discuss with the patient about the potential need for pressors and if needed that he may require a central line. Discussed the risks and benefits of a central IV catheter. He agrees to proceed if necessary. * Influenza negative * Follow-up on blood cultures, COVID-19 and respiratory panel. * Will also order urinalysis, urine culture, sputum culture, strep and Legionella antigens * Continue with broad-spectrum antibiotics with vancomycin and Pipracil and/tazobactam for now * Continue with COVID precautions. I would continue with this even if the COVID screen is negative. I would want to see if the patient improves with antibiotics and that would pretty much confirmed that this is not COVID-19. Would reassess on the if that were the case. The patient's condition does deteriorate further and is COVID was negative then would reconsider reordering COVID-19 but would not do so until 24 hours after this last COVID test has been performed. * Consultations placed to critical care medicine and infectious disease * Given the concern for COVID-19, will check additional laboratory, including d- dimer. 2. Acute kidney injury: * Presumed prerenal. * Currently receiving IV fluids. * Will hold his enalapril and furosemide. * Reevaluate labs in the morning. 3. Diabetes mellitus type 2: Diet controlled at home. Signed scale insulin for now as I do anticipate worsening glycemic control given the septic shock. 4. Lymphedema: Patient does have a history of ulcers on his legs that does appear to be improved. Consult wound care for further management. 5. Morbid obesity: Overall complicates care. 6. VTE prophylaxis: Given potential risk for COVID-19, patient will be anticoagulated with heparin drip for now. Consider de-escalating if d-dimer is normal for age and other source of infection is identified. 7. Advanced care planning: Patient wishes to be full CODE STATUS. Inpatient E&M: [id number] Init Hosp L3
--- NOTE | 2019-10-06 17:10 | NURSING ---
ICU 4
--- NOTE | 2019-10-06 17:44 | PCM.RX.CS ---
Consult Pharmacy has been consulted to manage selected antiobiotic: Vancomycin Type of Consult: New start Suspected Infection: Sepsis, Skin/Soft tissue Prior Doses of Antibiotics Received/Current Regimen: Received 2000mg IV x1 in E.R. starting at 1600 today Labs: Sodium 133 mmol/L (136-145) L 10/06/19 14:15 Potassium 4.9 mmol/L (3.5-5.1) 10/06/19 14:15 Chloride 101 mmol/L (98-107) 10/06/19 14:15 Carbon Dioxide 23.0 mmol/L (21.0-32.0) 10/06/19 14:15 Anion Gap 9 (5-15) 10/06/19 14:15 BUN 71 mg/dL (7-18) H 10/06/19 14:15 Creatinine 3.08 mg/dL (0.70-1.30) H 10/06/19 14:15 Est GFR (MDRD) Af Amer 26 mL/min (>60) L 10/06/19 14:15 Est GFR (MDRD) Non-Af 21 mL/min (>60) L 10/06/19 14:15 BUN/Creatinine Ratio 23.1 RATIO (10-20) H 10/06/19 14:15 Glucose 114 mg/dL (74-106) H 10/06/19 14:15 Microbiology: Microbiology 10/06/19 14:30 Mucosa - Nasopharyngeal Coronavirus COVID-19 PCR - Final 10/06/19 14:35 Mucosa - Nose Respiratory Panel (PCR) - Final 10/06/19 14:35 Mucosa - Nose Influenza Types A,B Direct FA ([facility]) - Final Weight used for dosin.2 kg Estimated Creatinine Clearance: 31.7m/min Goal Trough: 15-20 mcg/mL Pharmacy Plan for Drug Dosing: After the initial dose in E.R. is finished, will continue with 1500mg IV q24h starting tomorrow. Will obtain a trough level before the 3rd total dose. The patient's CrCl of 31.7ml/min was calculated using an adjusted body weight of 100.3kg. Pharmacy Service will continue to monitor and adjust dosing as required. Follow-Up Labs: Trough Vancomycin Labs to be done on [date and time ordered]: 10/08/19 15:30
[2019-10-06 18:13] LABS: International Normalized Ratio 1.5; Prothrombin Time (Protime)PT. 17.3 SECONDS (11.7-14.9)
[2019-10-06 18:14] LABS: Fibrinogen 785 mg/dl (203-444); Partial Thromboplast Time 37.7 Seconds (24.1-36.2)
[2019-10-06] MEDS: Heparin Injection (Vial) 5,000 UNIT/ML VIAL IV (18:39)
[2019-10-06] MEDS: HEPARIN/D5w 25,000 UNITS 25,000 UNITS/250 ML IV.SOLN. 18 UNITS IV (18:40)
[2019-10-06 18:43] LABS: CPK Total, Creatine Kinase 32 U/L (39-308); LDH 133 U/L (87-241)
[2019-10-06 18:46] LABS: D-Dimer Quantitative (DVT/PE) 11.71 FEU/ug/m (0.27-0.49)
[2019-10-06 19:41] LABS: M R Staph aureus DNA By PCR Negative (Negative); Probe Check PASS; Specimen Processing Control PASS
[2019-10-06 20:03] LABS: Procalcitonin > 50.00 ng/mL (0.00-0.09)
[2019-10-06] MEDS: 0.9% Saline Lock 10 ML Syringe IV (20:51)
[2019-10-06] MEDS: guaiFENesin 1,200 MG Tablet 1200 MG PO (20:52)
[2019-10-06 20:55] LABS: Mucous, Urine 0 SEEN /hpf (<or=2+); Squamous Epithelial Cells - UA 0 SEEN /hpf (0-5)
[2019-10-06 21:04] LABS: Color, Urine Amber (Yellow); Glucose, Dipstick Normal (Normal); Ketone-Dipstick 5 mg/dl (Negative); Leukocyte Esterase-Dipstick 100 /ul (Negative); Nitrite-Dipstick Negative (Negative); Occult Blood-Urine 250 /ul (Negative); Protein-Dipstick 100 mg/dl (Negative); Urine Bilirubin Dipstick Negative (Negative); Urine Clarity Cloudy (Clear); Urine Urobilinogen Normal (Normal)
[2019-10-06 21:09] LABS: Bacteria RARE /hpf (None Seen); Red Blood Cells-Urine 50-100 SEEN /hpf (0-5); White Blood Cells 0-5 SEEN /hpf (0-5)
--- NOTE | 2019-10-06 23:19 | SEPSIS_ITS ---
Sepsis Note - Physical Exam/Vitals Subjective: Patient seen and examined. He denied any complaints. No chest pain or shortness of breath. Denies dizziness or lightheadedness. Objective: Chest X-Ray 10/06/19 14:36 IMPRESSION: Vascular congestion and mild degree of CHF. Electronically Signed: Lukasz Akers, at 14:53 EDT , Service support , Temp Pulse Resp BP Pulse Ox 97.3 F L 78 18 95/65 99 10/06/19 20:00 10/06/19 22:00 10/06/19 22:00 10/06/19 22:00 10/06/19 22:00 10/06/19 10/06/19 10/06/19 21:15 20:45 18:15 WBC RBC Hgb Hct MCV MCH MCHC RDW Std Deviation RDW Coeff of Inocencio Plt Count MPV Immature Gran % (Auto) Neut % (Auto) Lymph % (Auto) [place] % (Auto) Eos % (Auto) Baso % (Auto) Absolute Neuts (auto) Absolute Lymphs (auto) Nucleated RBC % Differential Comment PT INR APTT Fibrinogen D-Dimer Quant (PE/DVT) Sodium Potassium Chloride Carbon Dioxide Anion Gap BUN Creatinine Estim Creat Clear Calc Est GFR (MDRD) Af Amer Est GFR (MDRD) Non-Af BUN/Creatinine Ratio Glucose Lactic Acid Calcium Total Bilirubin AST ALT Alkaline Phosphatase Lactate Dehydrogenase Total Creatine Kinase Troponin I < 0.015 C-React Prot Ext Range Total Protein Albumin Globulin Albumin/Globulin Ratio Procalcitonin > 50.00 H Urine Color Lindy Urine Clarity Cloudy Urine pH 5.0 Ur Specific [place] 1.010 Urine Protein 100 H Urine Glucose (UA) Normal Urine Ketones 5 H Urine Occult Blood 250 H Urine Nitrite Negative Urine Bilirubin Negative Urine Urobilinogen Normal Ur Leukocyte Esterase 100 H Urine RBC 50-100 SEEN Urine WBC 0-5 SEEN Ur Squamous Epith Cells 0 SEEN Urine Bacteria RARE Urine Mucus 0 SEEN COVID-19 ([facility]) MRSA (PCR) 10/06/19 10/06/19 10/06/19 18:15 18:05 14:35 WBC RBC Hgb Hct MCV MCH MCHC RDW Std Deviation RDW Coeff of Inocencio Plt Count MPV Immature Gran % (Auto) Neut % (Auto) Lymph % (Auto) [place] % (Auto) Eos % (Auto) Baso % (Auto) Absolute Neuts (auto) Absolute Lymphs (auto) Nucleated RBC % Differential Comment PT INR APTT Fibrinogen D-Dimer Quant (PE/DVT) Sodium Potassium Chloride Carbon Dioxide Anion Gap BUN Creatinine Estim Creat Clear Calc Est GFR (MDRD) Af Amer Est GFR (MDRD) Non-Af BUN/Creatinine Ratio Glucose Lactic Acid Calcium Total Bilirubin AST ALT Alkaline Phosphatase Lactate Dehydrogenase 133 Total Creatine Kinase 32 L Troponin I 0.018 C-React Prot Ext Range 137.00 H Total Protein Albumin Globulin Albumin/Globulin Ratio Procalcitonin Urine Color Urine Clarity Urine pH Ur Specific [place] Urine Protein Urine Glucose (UA) Urine Ketones Urine Occult Blood Urine Nitrite Urine Bilirubin Urine Urobilinogen Ur Leukocyte Esterase Urine RBC Urine WBC Ur Squamous Epith Cells Urine Bacteria Urine Mucus COVID-19 ([facility]) Cancelled MRSA (PCR) Negative 10/06/19 10/06/19 10/06/19 14:15 14:15 14:15 WBC RBC Hgb Hct MCV MCH MCHC RDW Std Deviation RDW Coeff of Inocencio Plt Count MPV Immature Gran % (Auto) Neut % (Auto) Lymph % (Auto) [place] % (Auto) Eos % (Auto) Baso % (Auto) Absolute Neuts (auto) Absolute Lymphs (auto) Nucleated RBC % Differential Comment PT 17.3 H INR 1.5 APTT 37.7 H Fibrinogen 785 H D-Dimer Quant (PE/DVT) 11.71 H* Sodium 133 L Potassium 4.9 Chloride 101 Carbon Dioxide 23.0 Anion Gap 9 BUN 71 H Creatinine 3.08 H Estim Creat Clear Calc 23.04 Est GFR (MDRD) Af Amer 26 L Est GFR (MDRD) Non-Af 21 L BUN/Creatinine Ratio 23.1 H Glucose 114 H Lactic Acid 1.8 Calcium 9.0 Total Bilirubin 0.70 AST 39 H ALT 30 Alkaline Phosphatase 133 H Lactate Dehydrogenase Total Creatine Kinase Troponin I C-React Prot Ext Range Total Protein 7.5 Albumin 2.3 L Globulin 5.2 H Albumin/Globulin Ratio 0.4 L Procalcitonin Urine Color Urine Clarity Urine pH Ur Specific [place] Urine Protein Urine Glucose (UA) Urine Ketones Urine Occult Blood Urine Nitrite Urine Bilirubin Urine Urobilinogen Ur Leukocyte Esterase Urine RBC Urine WBC Ur Squamous Epith Cells Urine Bacteria Urine Mucus COVID-19 ([facility]) MRSA (PCR) 10/06/19 14:15 WBC 16.0 H RBC 3.09 L Hgb 9.7 L Hct 30.6 L MCV 99.0 H MCH 31.4 MCHC 31.7 L RDW Std Deviation 54.9 H RDW Coeff of Inocencio 15.2 H Plt Count 135 L MPV 12.2 H Immature Gran % (Auto) 0.900 Neut % (Auto) 92.9 H Lymph % (Auto) 1.1 L [place] % (Auto) 5.0 Eos % (Auto) 0.0 Baso % (Auto) 0.1 Absolute Neuts (auto) 14.8 H Absolute Lymphs (auto) 0.17 L Nucleated RBC % 0 Differential Comment COMMENT PT INR APTT Fibrinogen D-Dimer Quant (PE/DVT) Sodium Potassium Chloride Carbon Dioxide Anion Gap BUN Creatinine Estim Creat Clear Calc Est GFR (MDRD) Af Amer Est GFR (MDRD) Non-Af BUN/Creatinine Ratio Glucose Lactic Acid Calcium Total Bilirubin AST ALT Alkaline Phosphatase Lactate Dehydrogenase Total Creatine Kinase Troponin I C-React Prot Ext Range Total Protein Albumin Globulin Albumin/Globulin Ratio Procalcitonin Urine Color Urine Clarity Urine pH Ur Specific [place] Urine Protein Urine Glucose (UA) Urine Ketones Urine Occult Blood Urine Nitrite Urine Bilirubin Urine Urobilinogen Ur Leukocyte Esterase Urine RBC Urine WBC Ur Squamous Epith Cells Urine Bacteria Urine Mucus COVID-19 ([facility]) MRSA (PCR) General: Alert, Cooperative, No apparent distress Lungs: Clear to auscultation, No rhonchi, No wheeze, Diminished Cardiovascular: Regular rate, Regular Rhythm, Normal S1, Normal S2 Capillary Refill: <3 seconds Peripheral Pulses: Normal Skin Color: [place] - Attestation Sepsis Attestation: Sepsis re-evaluation was performed
[2019-10-07] VITALS (22 sets, daily range): BP systolic 77–122; BP diastolic 56–75; PULSE 64–83; RESP 11–23; TEMP 36–37.2; O2SAT 94–100
[2019-10-07 00:41] LABS: Partial Thromboplast Time 154.6 Seconds (24.1-36.2)
[2019-10-07 05:30] LABS: Absolute Lymphocyte Count 0.92 X10^3/uL (0.83-4.51); Absolute Neutrophil Count 13.9 X10^3/uL (2.0-7.7); Basophil# 0.03 X10^3/uL; Basophil% 0.2 % (0-1); Eosinophil# 0.01 X10^3/uL; Eosinophils% 0.1 % (0-5); Hematocrit 26.2 % (40-54); Hemoglobin 8.2 g/dL (13.0-16.5); Lymphocyte # 0.92 X10^3/ul (4.0); Lymphocyte % 5.6 % (19-41); Mean Corp Hgb Conc 31.3 g/dL (32-36); Mean Corpuscular Hgb 31.3 pg (27.0-32.0); Mean Platelet Vol. 12.7 fl (6.2-12.0); Monocyte# 1.06 X10^3/uL; Monocyte% 6.4 % (0-10); NRBC Flagged by Analyzer 0 % (0-5); Neutrophil # 13.93 X10^3/uL (2.7-7.7); Neutrophil % 84.6 % (47-70); Platelet Count 126 K/mm3 (150-450); RBC Distribution Width CV 15.2 % (11.6-14.6); RBC Distribution Width SD 55.4 fl (35.1-43.9); Red Blood Count 2.62 M/mm3 (4.6-6.2); White Blood Count 16.5 K/mm3 (4.4-11.0)
[2019-10-07 05:48] LABS: ALB/GLOB Ratio 0.4 RATIO (0.9-2.4); AST(SGOT) 25 U/L (15-37); Alanine Aminotransfer ALT/SGPT 26 U/L (16-61); Albumin, Serum 1.8 g/dL (3.2-5.0); Alkaline Phosphatase 99 U/L (45-117); Anion Gap 8 (5-15); BUN 72 mg/dL (7-18); BUN/Creat Ratio 23.7 RATIO (10-20); Calcium,Total 7.7 mg/dL (8.5-10.1); Chloride 105 mmol/L (98-107); Creatinine, Serum 3.04 mg/dL (0.70-1.30); EST Glomerular Filtration Rate 22 mL/min (>60); Est Glom Filt Rate - Afr Amer 26 mL/min (>60); Estimated Creatinine Clearance 23.35 ml/min; Globulin 4.2 g/dL (2.2-4.2); Glucose 146 mg/dL (74-106); Potassium 4.2 mmol/L (3.5-5.1); Sodium Level 135 mmol/L (136-145)
--- NOTE | 2019-10-07 08:09 | NURSING ---
Was asked to see patient since patient goes to the wound healing center. pt currently has no open wounds. bilateral lower legs are dry and flaky. pt states he has had open areas in the past. there is some mild redness noted bilaterally. mild edema noted to the RLE and moderate edema noted to the LLE. pt states he does use lymphedema pumps at home, but are getting repaired at this time. orders received for Eucerin to be applied bilaterally and then PHUC wraps can be applied from the base of the toes to just below the knees. pt typically uses 3M wraps, but in order to assess legs daily, the PHUC wraps will be used here.
[2019-10-07] MEDS: guaiFENesin 1,200 MG Tablet 1200 MG PO ×2 (08:25→21:02)
--- NOTE | 2019-10-07 08:49 | CON.PCM_ITS ---
Problem List (1) Lymphedema of both lower extremities Status: Chronic (2) DEEPTI (acute kidney injury) Status: Acute (3) Stage 2 chronic kidney disease Status: Chronic (4) Essential hypertension Status: Chronic (5) Anemia Status: Acute (6) Gout Status: Chronic Qualifiers: Gout site: unspecified site Gout etiology: unspecified cause Chronicity: chronic Presence of tophus: without tophus Qualified Code(s): M1A.9XX0 - Chronic gout, unspecified, without tophus (tophi) (7) Type 2 diabetes mellitus Status: Chronic (8) Iron deficiency anemia Status: Chronic (9) Hyperlipidemia Status: Chronic Qualifiers: Reason for Consult Date of Consultation: 10/07/19 Reason for Consultation: Hypotension History of Present Illness: The patient is a 69 year old M, with past medical history listed below, who presented was coming hospital on 10/06/2019 secondary to 2 days of progressive shortness of breath and fatigue. Patient states that he was having difficulty with exertion, but minimal shortness of breath at rest. Patient had a cough with some clear sputum and intermittent sinus drainage. Patient did not report any chest pain, abdominal pain, nausea, vomiting, sore throat, rhinorrhea or ear pain. Patient states he had a temperature of 103 ?F at home. Patient does not living in a skilled nursing and denies any recent travel or surgery. Patient does have a history of chronic lower extremity wounds and has been seen by the wound center previously. In the ER, patient was noted to be febrile, tachycardic and tachypneic. Lungs were clear, but diminished. Laboratory work-up showed a leukocytosis of 16 and worsening of his renal failure with a creatinine of 3.08. EKG showed a new right bundle branch block compared to 2018. Patient was noted to have a blood pressure of 74/43 on presentation. Patient did respond to a fluid bolus. Patient was started on Zosyn, vancomycin and admitted to the intensive care unit for further evaluation. Since being in the intensive care unit, patient has not required additional boluses. Patient did have significant desaturation associated with sleeping with saturations into the 40s. Patient states that he has been referred for sleep study in the past, but is never been placed on therapy. Patient has a high index of suspicion that he does have sleep apnea at baseline. Patient reports that he does have chronic lymphedema, but does not believe that the pain is any worse in one extremity versus the other. Patient is not reporting any dysuria. Patient does report that he is relatively sedentary secondary to his body habitus. Review of systems otherwise negative from a constitutional, HEENT, respiratory, cardiovascular, GI, genitourinary, musculoskeletal, skin, neurologic, psychiatric and hematologic system unless stated above. Past Medical History Past Medical History (Chronic Problems): Chronic Problems (Last Reviewed 10/06/19 @ 17:[address] Guillermo Fuchs DO) Ulcer of left lower extremity with fat layer exposed (Chronic) Lymphedema of both lower extremities (Chronic) Ulcer of left foot (Chronic) Cardiac murmur (Chronic) Stage 2 chronic kidney disease (Chronic) Essential hypertension (Chronic) Gout (Chronic) Type 2 diabetes mellitus (Chronic) Iron deficiency anemia (Chronic) Hyperlipidemia (Chronic) Medical History: Medical History (Last Reviewed 10/06/19 @ 17:[address] 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 Diabetic neuropathy E11.40 Hyperuricemia E79.0 Chronic kidney disease (Inactive) N18.9 Hypertension (Inactive) I10 Allergies No Known Allergies Allergy (Verified 10/06/19 13:29) Home Medications: Ambulatory Orders Medication Instructions Recorded Ascorbic Acid [Vitamin C] 500 mg PO DAILY@0800 03/08/17 Carvedilol [Coreg ([address]eta [address])] 6.25 mg PO BID 03/08/17 Furosemide [Lasix] 40 mg PO DAILY 03/08/17 Magnesium 500 mg PO DAILY 03/08/17 allopurinol 300 mg tablet 300 mg PO DAILY 08/23/19 cholecalciferol (vitamin D3) 125 125 mcg PO DAILY 08/23/19 mcg (5,000 unit) capsule enalapril maleate 10 mg tablet 10 mg PO BID tab 08/23/19 ferrous sulfate 325 mg (65 mg 325 mg PO BID 08/23/19 iron) tablet cyanocobalamin (vitamin B-12) 1,000 mcg PO DAILY 08/24/19 1,000 mcg capsule omega-3 fatty acids 1,000 mg 1,000 mg PO DAILY 08/24/19 capsule Multivitamin with Minerals 1 tab PO DAILY 10/06/19 [Multiple Vitamin] Potassium Chloride [Klor-Con M10] 20 meq PO DAILY 10/06/19 Simvastatin 40 mg PO QHS 10/06/19 Surgical History: Surgical History (Last Reviewed 10/06/19 @ 17:[address] Guillermo Fuchs DO) S/P colonoscopy Z98.890 Status post tonsillectomy Z90.89 Surgical History: no surgical history Psychiatric History: No pertinent psych hx Smoking Status: Never smoker - *Family History Maternal Family History: Family History (Last Reviewed 10/06/19 @ 17:[address] Guillermo Fuchs DO) Mother Cancer Father Hypertension History Items: Cancer Paternal Family History: Family History (Last Reviewed 10/06/19 @ 17:[address] Guillermo Fuchs DO) Mother Cancer Father Hypertension History Items: - - Head trauma. Review of Systems Comment: See HPI Patient Problems: Active and Suspected Problems (Last Reviewed 10/06/19 @ 17:[address] Guillermo Fuchs DO) Cellulitis of left lower extremity (Acute) Septic shock (Acute) Septic shock (Acute) DEEPTI (acute kidney injury) (Acute) Objective: All imaging was personally reviewed. Chest x-ray showed possible congestion versus shadow from excessive tissue. Patient recently had an echocardiogram at [facility] showing normal ejection fraction with grade 1 diastolic dysfunction. Patient's right ventricular pressure was not estimated. Patient did have mitral annular calcification with trace MVR and moderate aortic stenosis with a valve area of 1.11 cm? - Physical Exam Vitals/I&O's: Vital Signs Temp Pulse Resp BP Pulse Ox 36.1 C L 70 18 91/60 99 10/07/19 08:00 10/07/19 08:00 10/07/19 08:00 10/07/19 08:00 10/07/19 08:00 Oxygen Flow Rate (L/min) 2 Oxygen Delivery Method Nasal Cannula Weight: 141.3 kg Body Mass Index (BMI) 44.5 Intake and Output for Last 24 Hours 10/05/19 10/06/19 10/07/19 23:59 23:59 23:59 Intake Total 5939.95 / 5939.95 158.85 / 158.85 Output Total 300 / 300 250 / 250 Balance 5639.95 / 5639.95 -91.15 / -91.15 General: Alert, Oriented x3, Cooperative, No apparent distress, - - Morbidly obese. Speaking in full sentences. HEENT: Atraumatic, PERRLA, EOMI, Normocephalic, - - No scleral icterus or injection noted Oral: Moist Mucosa, No Gingival or Mucosal Lesions/ Ulcerations Neck: Supple, No Nodes, Trachea Midline, - - Unable to assess JVD secondary to body habitus Lungs: No rhonchi, No wheeze, No rales, Diminished, - - Symmetric expansion. No dullness to percussion. Cardiovascular: Regular rate, Regular Rhythm, Normal S1, Normal S2, Murmur - Grade 2 out of 6 systolic ejection murmur at the left sternal border, No rub noted, No Gallop Abdomen: Bowel Sounds Present, Soft, Non Tender, Non-Distended, Obese Extremities: No clubbing, No cyanosis, Capillary Refill Less than 3 Seconds, Edema - Bilateral lower extremities Skin: - - Disclamation noted of bilateral lower extremities. No change in temperature to touch. Mild area of erythema noted on the left lower extremity without exudate Musculoskeletal: No Tenderness to Palpation of Joints or Extremities Lymphatic: No Cervical, Supraclavicular, or Inguinal Adenopathy Neurological: Cranial nerves II-XII grossly intact, Neuro grossly intact, Motor Exam 5/5 strength throughout Psych/Mental Status: Alert and oriented to time, place, person, mood and affect Microbiology Past 72 Hours 10/06/19 14:15 Blood Culture (Wb) - Anticubital Right Bacteria Detection (PCR) - Final Strep not Strep pneumo 10/06/19 14:15 Blood Culture (Wb) - Anticubital Right Blood Culture - Preliminary 10/06/19 14:25 Blood Culture (Wb) - Anticubital Left Blood Culture - Preliminary 10/06/19 20:45 Urine Catheter - Catheter Streptococcus pneumoniae Antigen (M - Final 10/06/19 20:45 Urine Catheter - Catheter Legionella Antigen - Final 10/06/19 14:30 Mucosa - Nasopharyngeal Coronavirus COVID-19 PCR - Final 10/06/19 14:35 Mucosa - Nose Respiratory Panel (PCR) - Final 10/06/19 14:35 Mucosa - Nose Influenza Types A,B Direct FA (LEORA) - Final Laboratory Results 10/06/19 14:15: WBC 16.0 H, RBC 3.09 L, Hgb 9.7 L, Hct 30.6 L, MCV 99.0 H, MCH 31.4, MCHC 31.7 L, RDW Std Deviation 54.9 H, RDW Coeff of Inocencio 15.2 H, Plt Count 135 L, MPV 12.2 H, Immature Gran % (Auto) 0.900, Neut % (Auto) 92.9 H, Lymph % (Auto) 1.1 L, [place] % (Auto) 5.0, Eos % (Auto) 0.0, Baso % (Auto) 0.1, Absolute Neuts (auto) 14.8 H, Absolute Lymphs (auto) 0.17 L, Nucleated RBC % 0, Differential Comment COMMENT 10/06/19 14:15: Sodium 133 L, Potassium 4.9, Chloride 101, Carbon Dioxide 23.0, Anion Gap 9, BUN 71 H, Creatinine 3.08 H, Estim Creat Clear Calc 23.04, Est GFR (MDRD) Af Amer 26 L, Est GFR (MDRD) Non-Af 21 L, BUN/Creatinine Ratio 23.1 H, Glucose 114 H, Calcium 9.0, Total Bilirubin 0.70, AST 39 H, ALT 30, Alkaline Phosphatase 133 H, Total Protein 7.5, Albumin 2.3 L, Globulin 5.2 H, Albumin/Globulin Ratio 0.4 L 10/06/19 14:15: Lactic Acid 1.8 10/06/19 14:15: PT 17.3 H, INR 1.5, APTT 37.7 H, Fibrinogen 785 H, D-Dimer Quant (PE/DVT) 11.71 H* 10/06/19 14:35: COVID-19 (ROMEO) Cancelled 10/06/19 18:05: MRSA (PCR) Negative 10/06/19 18:15: Lactate Dehydrogenase 133, Total Creatine Kinase 32 L, Troponin I 0.018, C-React Prot Ext Range 137.00 H 10/06/19 18:15: Procalcitonin > 50.00 H 10/06/19 20:45: Urine Color Lindy, Urine Clarity Cloudy, Urine pH 5.0, Ur Specific [place] 1.010, Urine Protein 100 H, Urine Glucose (UA) Normal, Urine Ketones 5 H, Urine Occult Blood 250 H, Urine Nitrite Negative, Urine Bilirubin Negative, Urine Urobilinogen Normal, Ur Leukocyte Esterase 100 H, Urine RBC 50- 100 SEEN, Urine WBC 0-5 SEEN, Ur Squamous Epith Cells 0 SEEN, Urine Bacteria RARE, Urine Mucus 0 SEEN 10/06/19 21:15: Troponin I < 0.015 10/07/19 00:15: Troponin I < 0.015 10/07/19 00:15: APTT 154.6 H* 10/07/19 04:45: WBC 16.5 H, RBC 2.62 L, Hgb 8.2 L, Hct 26.2 L, MCV 100.0 H, MCH 31.3, MCHC 31.3 L, RDW Std Deviation 55.4 H, RDW Coeff of Inocencio 15.2 H, Plt Count 126 L, MPV 12.7 H, Immature Gran % (Auto) 3.100 H, Neut % (Auto) 84.6 H, Lymph % (Auto) 5.6 L, [place] % (Auto) 6.4, Eos % (Auto) 0.1, Baso % (Auto) 0.2, Absolute Neuts (auto) 13.9 H, Absolute Lymphs (auto) 0.92, Nucleated RBC % 0 10/07/19 04:45: Sodium 135 L, Potassium 4.2, Chloride 105, Carbon Dioxide 22.0, Anion Gap 8, BUN 72 H, Creatinine 3.04 H, Estim Creat Clear Calc 23.35, Est GFR (MDRD) Af Amer 26 L, Est GFR (MDRD) Non-Af 22 L, BUN/Creatinine Ratio 23.7 H, Glucose 146 H, Calcium 7.7 L, Total Bilirubin 0.50, AST 25, ALT 26, Alkaline Phosphatase 99, Total Protein 6.0 L, Albumin 1.8 L, Globulin 4.2, Albumin/Globulin Ratio 0.4 L Current Medications Acetaminophen (Tylenol) 650 mg PO Q6H PRN PRN PRN Reason: Pain Score 1-10/Temp > 100.7 F Dextrose (D50w Syringe) 0 gm IV X1 PRN; Protocol PRN Reason: Hypoglycemia Emollient Ointment (Eucerin Intensive Repair) 1 applic TOPICAL DAILY DONNA; Protocol Glucagon () 1 mg IM .X1 PRN PRN Reason: Hypoglycemia Guaifenesin (Mucinex) 1,200 mg PO BID [facility] Last Admin: 10/07/19 08:25 Dose: 1,200 mg Documented by: Heparin Sodium (Porcine) (Heparin Na) 0 unit IV UD PRN; Protocol Last Admin: 10/06/19 18:39 Dose: 11,000 unit Documented by: Heparin Sodium/Dextrose () 25,000 units in 250 mls @ 18 mls/hr IV .[id number] DONNA; Protocol Last Titration: 10/07/19 03:00 Dose: 1,500 units/hr, 15 mls/hr Documented by: Piperacillin Sod/Tazobactam (Sod 3.375 gm/ Sodium Chloride) 50 mls @ 12.5 mls/hr IV Q8 DONNA Stop: 10/13/19 22:01 Last Admin: 10/07/19 04:51 Dose: 12.5 mls/hr Documented by: Vancomycin IV Pharmacy to Dose (1 ea/ Sodium Chloride) 500 mls @ 250 mls/hr IV X1 PRN; Protocol PRN Reason: Rx to Dose Sodium Chloride () 250 mls @ 15 mls/hr IV .[id number] PRN PRN Reason: Saline Flush Sodium Chloride () 250 mls @ 15 mls/hr IV .[id number] PRN PRN Reason: Additional IVPB Infusion Vancomycin HCl 1,500 mg/ (Sodium Chloride) 530 mls @ 250 mls/hr IV Q24H [facility] Insulin Human Lispro (Humalog Kwikpen (Bkc)) 0 unit SC TIDAC [facility]; Protocol Last Admin: 10/07/19 07:29 Dose: Not Given Documented by: Ondansetron HCl (Zofran) 4 mg IV Q8H PRN PRN PRN Reason: NAUSEA/VOMITING Sodium Chloride () 10 - 40 ml IV UD PRN PRN Reason: SALINE FLUSH Last Admin: 10/06/19 20:51 Dose: 40 ml Documented by: Clinical Impression(s) from Imaging Studies Chest X-Ray 10/06/19 14:36 IMPRESSION: Vascular congestion and mild degree of CHF. Electronically Signed: Lukasz Akers, at 14:53 EDT , Service support , Assessment/Plan Active and Suspected Problems (Last Reviewed 10/06/19 @ 17:[address] Guillermo Fuchs, DO) Cellulitis of left lower extremity (Acute) Septic shock (Acute) Septic shock (Acute) DEEPTI (acute kidney injury) (Acute) RECOMMENDATIONS: 1. Continue empiric antibiotics 2. Monitor renal function. Possible consult to Dr. Mcleod (primary floor trader) tomorrow 3. Defer to infectious disease on discontinuation of COVID precautions 4. Initiate empiric BiPAP therapy with sleep 5. Wean oxygen as tolerated IMPRESSIONS: 1. Septic shock secondary to probable cellulitis with gram-positive bacteremia Extensive work-up from a viral standpoint has been negative thus far. Patient does have gram-positive growing in his blood. Patient's lower extremities are not overly impressive. Patient may require a AMPARO for evaluation of endocarditis if blood cultures remain positive. Patient does appear to be responding to antibiotics and volume resuscitation. Will defer to infectious disease, but COVID-19 precautions can be discontinued from my perspective. 2. Acute on chronic kidney disease stage III Patient presented hypotensive and is on Lasix and an PHUC inhibitor at baseline. Clinical suspicion for prerenal etiology. We will continue to support the blood pressure and see if this improves. If patient is not improving by tomorrow, consultation to nephrology may be appropriate. No indication for renal replacement therapy at this time. 3. Lymphedema/morbid obesity/probable HERNÁN/advanced age Complicates care, management, recovery and prognosis. Patient desaturating with sleep, likely secondary to baseline obstructive sleep apnea. This will have to be addressed as an outpatient, but will initiate empiric BiPAP therapy with sleep for now. BiPAP is not being initiated secondary to respiratory failure. Inpatient E&M: 42308 Init Hosp L3
[2019-10-07 09:46] LABS: Partial Thromboplast Time 61.5 Seconds (24.1-36.2)
--- NOTE | 2019-10-07 09:48 | ECHOCS_ITS ---
Reason For Study: DYSPNEA/SOB Procedure This was a 2D Doppler, Color Flow transthoracic echocardiogram. The study was technically limited. The study was technically difficult. Due to body habitus. Contrast injection was performed. Exam performed portable in ICU/CCU. Left Ventricle Normal LV size. The estimated ejection fraction is 60 %. Diastolic function is indeterminate. No regional wall motion abnormalities noted. Right Ventricle Mildly dilated right ventricle. Normal systolic function. Atria The left atrium is moderately enlarged. The right atrium is mildly enlarged. No doppler evidence for ASD. Mitral Valve There is no mitral valve stenosis. No mitral valve insufficiency. Tricuspid Valve There is no tricuspid stenosis. Trivial tricuspid valve insufficiency. Unable to estimate RV systolic pressure due to insufficient tricuspid regurgitant envelope. Aortic Valve Moderate diffuse aortic valve thickening. Moderate aortic stenosis. No aortic valve insufficiency. Pulmonic Valve There is no pulmonic valvular stenosis. Trivial pulmonic valve insufficiency. Great Vessels Normal aortic root. Pericardium/Pleural No pericardial effusion. Medication Diluted definity 6.0ml given slow IV push to enhance endocardial definition. MMode/2D Measurements & Calculations LVIDd: 5.1 cm IVSd: 1.1 cm LVOT diam: 2.2 cm LVIDs: 3.8 cm LVPWd: 1.2 cm FS: 26.1 % LVOT area: 3.8 cm2 LAV(MOD-sp4): 85.2 ml LA A4 area: 28.1 cm2 LA dimension(2D): 4.8 cm RA A4 area: 23.6 cm2 Time Measurements MV dec time: 0.23 sec Doppler Measurements & Calculations MV E max jacob: 73.4 cm/sec Lat Peak E' Jacob: 8.4 cm/sec Med Peak E' Jacob: 6.4 cm/sec MV A max jacob: 94.7 cm/sec E/E' lat: 8.8 E/E' med: 11.5 MV E/A: 0.77 Ao V2 max: 322.6 cm/sec LV V1 max: 112.1 cm/sec SV(LVOT): 88.6 ml Ao max P.7 mmHg LV V1 max P.0 mmHg Ao V2 mean: 237.6 cm/sec LV V1 mean P.6 mmHg Ao mean P.6 mmHg LV V1 mean: 75.9 cm/sec Ao V2 VTI: 67.6 cm LV V1 VTI: 23.3 cm PAIGE(I,D): 1.3 cm2 PAIGE(V,D): 1.3 cm2 PA V2 max: 120.9 cm/sec TR max jacob: 230.8 cm/sec TR max P.4 mmHg Interpretation Summary The estimated ejection fraction is 60 %. Diastolic function is indeterminate. Mildly dilated right ventricle. Moderate aortic stenosis. The left atrium is moderately enlarged. The right atrium is mildly enlarged. The study was technically difficult. Contrast injection was performed. Ordering Physician: Brnet Cash Referring Physician: Jaswinder Adrian Performed By: Gretel Beebe RDCS, RVT
--- NOTE | 2019-10-07 10:39 | US_ITS ---
STUDY: RENAL ULTRASOUND - COMPLETE REASON FOR EXAM: Male, 69 years old. Acute kidney injury. TECHNIQUE: Ultrasound evaluation of the kidneys was performed with real-time and static arguello-scale imaging. COMPARISON: Renal ultrasound, February 11, 2017. FINDINGS: RIGHT KIDNEY: Normal location of the right kidney, which is enlarged in size. The right kidney measures 13.7 cm. There is mildly increased renal cortical echogenicity when compared to the adjacent liver. The renal cortex measures 1.6 cm. There is no right renal mass or cyst. There are no right renal calculi. There is no right hydronephrosis. DISTAL RIGHT URETER: There is non-visualization of the distal right ureter. There is no demonstrated right ureterovesical junction calculus. There is no demonstrated right ureteral jet. LEFT KIDNEY: Normal location of the left kidney, which is mildly enlarged in size. The left kidney measures 12.6 cm. Mildly increased renal cortical echogenicity. The renal cortex measures 2.5 cm. There is a 2.8 x 2.9 x 2.7 cm exophytic cyst off the mid kidney. This also 3.9 cm cystic structure adjacent to the kidney seen only on the transverse image. There are no left renal calculi. There is no left hydronephrosis. DISTAL LEFT URETER: There is non-visualization of the distal left ureter. There is no demonstrated left ureterovesical junction calculus. There is no demonstrated left ureteral jet. BLADDER: The distended urinary bladder has a volume of 82 ml. There is a normal wall thickness of the distended urinary bladder. There is no demonstrated mass within the urinary bladder. There are no demonstrated bladder calculi. US/Kidney and Bladder IMPRESSION: 1. Minimally increased renal cortical echogenicity. Question medical renal disease. 2. Prominent bilateral kidneys unchanged in size from prior study. 3. Left renal cyst. 4. Fluid density area adjacent to the left kidney this is consistent with a larger exophytic cyst off the upper pole noted on the prior ultrasound. 5. Normal urinary bladder. Electronically Signed: DO Jannet Fontanez/05/28 at 19:38 EDT Tel [phone], Service support ,
--- NOTE | 2019-10-07 10:40 | PCM.HP.ID ---
Problem List (1) Septic shock Status: Acute Reason for Consult: septic shock Consulted by: Dr. Fuchs History of Present Illness: The patient is a 69 year old M with DM neuropathy, chronic lymphedema, CKD, presented to ED yesterday with 2 days of quickly progressive fever, not feeling well, fatigue, dyspnea. Had some recent serous drainage from legs, but no redness, no pain. Has limited BLE sensation. No sick contacts. Has been masking and isolating. [place] cases. Did go to family gathering on , was feeling fatigued/lethargic while there. No aches, minimal cough with some clear sputum, no headache, no change in taste/smell, no diarrhea. Mild nausea. No sore throat. Came to ED, found to be hypotensive, admitted to icu on pressors, IVF, vanc/zosyn. Bcx x2 with strep-like. Feeling much better this AM. No current cough or dyspnea. Full ROS performed and neg except as noted above. - Medical History Past Medical History (Chronic Problems): Chronic Problems (Last Reviewed 10/06/19 @ 17:[address] Guillermo Fuchs, DO) Ulcer of left lower extremity with fat layer exposed (Chronic) Lymphedema of both lower extremities (Chronic) Ulcer of left foot (Chronic) Cardiac murmur (Chronic) Stage 2 chronic kidney disease (Chronic) Essential hypertension (Chronic) Gout (Chronic) Type 2 diabetes mellitus (Chronic) Iron deficiency anemia (Chronic) Hyperlipidemia (Chronic) Allergies/Adverse Reactions: Allergies No Known Allergies Allergy (Verified 10/06/19 13:29) Home Medications: Ambulatory Orders Medication Instructions Recorded Ascorbic Acid [Vitamin C] 500 mg PO DAILY@0800 03/08/17 Carvedilol [Coreg (Beta [address])] 6.25 mg PO BID 03/08/17 Furosemide [Lasix] 40 mg PO DAILY 03/08/17 Magnesium 500 mg PO DAILY 03/08/17 allopurinol 300 mg tablet 300 mg PO DAILY 08/23/19 cholecalciferol (vitamin D3) 125 125 mcg PO DAILY 08/23/19 mcg (5,000 unit) capsule enalapril maleate 10 mg tablet 10 mg PO BID tab 08/23/19 ferrous sulfate 325 mg (65 mg 325 mg PO BID 08/23/19 iron) tablet cyanocobalamin (vitamin B-12) 1,000 mcg PO DAILY 08/24/19 1,000 mcg capsule omega-3 fatty acids 1,000 mg 1,000 mg PO DAILY 08/24/19 capsule Multivitamin with Minerals 1 tab PO DAILY 10/06/19 [Multiple Vitamin] Potassium Chloride [Klor-Con M10] 20 meq PO DAILY 10/06/19 Simvastatin 40 mg PO QHS 10/06/19 - Social History Tobacco Use: non-smoker Vital Signs Temp Pulse Resp BP Pulse Ox 97 F L 75 17 104/59 L 99 10/07/19 08:00 10/07/19 09:00 10/07/19 09:00 10/07/19 09:00 10/07/19 09:00 Oxygen Flow Rate (L/min) 2 Oxygen Delivery Method Nasal Cannula Weight: 141.3 kg Body Mass Index (BMI) 44.5 Microbiology Past 72 Hours 10/06/19 14:15 Bacteria Detection (PCR) - Final Blood Culture (Wb) - Anticubital Right Strep not Strep pneumo Blood Culture - Preliminary 10/06/19 14:25 Blood Culture - Preliminary Blood Culture (Wb) - Anticubital Left 10/06/19 20:45 Streptococcus pneumoniae Antigen (M - Final Urine Catheter - Catheter 10/06/19 20:45 Legionella Antigen - Final Urine Catheter - Catheter 10/06/19 14:30 Coronavirus COVID-19 PCR - Final Mucosa - Nasopharyngeal 10/06/19 14:35 Respiratory Panel (PCR) - Final Mucosa - Nose 10/06/19 14:35 Influenza Types A,B Direct FA (LEORA) - Final Mucosa - Nose Laboratory Tests Past 24 Hrs 10/06/19 10/06/19 10/06/19 14:15 14:15 14:15 WBC 16.0 H RBC 3.09 L Hgb 9.7 L Hct 30.6 L MCV 99.0 H MCH 31.4 MCHC 31.7 L RDW Std Deviation 54.9 H RDW Coeff of Inocencio 15.2 H Plt Count 135 L MPV 12.2 H Immature Gran % (Auto) 0.900 Neut % (Auto) 92.9 H Lymph % (Auto) 1.1 L [place] % (Auto) 5.0 Eos % (Auto) 0.0 Baso % (Auto) 0.1 Absolute Neuts (auto) 14.8 H Absolute Lymphs (auto) 0.17 L Nucleated RBC % 0 Differential Comment COMMENT PT INR APTT Fibrinogen D-Dimer Quant (PE/DVT) Sodium 133 L Potassium 4.9 Chloride 101 Carbon Dioxide 23.0 Anion Gap 9 BUN 71 H Creatinine 3.08 H Estim Creat Clear Calc 23.04 Est GFR (MDRD) Af Amer 26 L Est GFR (MDRD) Non-Af 21 L BUN/Creatinine Ratio 23.1 H Glucose 114 H Lactic Acid 1.8 Calcium 9.0 Total Bilirubin 0.70 AST 39 H ALT 30 Alkaline Phosphatase 133 H Lactate Dehydrogenase Total Creatine Kinase Troponin I C-React Prot Ext Range Total Protein 7.5 Albumin 2.3 L Globulin 5.2 H Albumin/Globulin Ratio 0.4 L Procalcitonin Urine Color Urine Clarity Urine pH Ur Specific Center Urine Protein Urine Glucose (UA) Urine Ketones Urine Occult Blood Urine Nitrite Urine Bilirubin Urine Urobilinogen Ur Leukocyte Esterase Urine RBC Urine WBC Ur Squamous Epith Cells Urine Bacteria Urine Mucus COVID-19 (ROMEO) MRSA (PCR) 10/06/19 10/06/19 10/06/19 14:15 14:35 18:05 WBC RBC Hgb Hct MCV MCH MCHC RDW Std Deviation RDW Coeff of Inocencio Plt Count MPV Immature Gran % (Auto) Neut % (Auto) Lymph % (Auto) [place] % (Auto) Eos % (Auto) Baso % (Auto) Absolute Neuts (auto) Absolute Lymphs (auto) Nucleated RBC % Differential Comment PT 17.3 H INR 1.5 APTT 37.7 H Fibrinogen 785 H D-Dimer Quant (PE/DVT) 11.71 H* Sodium Potassium Chloride Carbon Dioxide Anion Gap BUN Creatinine Estim Creat Clear Calc Est GFR (MDRD) Af Amer Est GFR (MDRD) Non-Af BUN/Creatinine Ratio Glucose Lactic Acid Calcium Total Bilirubin AST ALT Alkaline Phosphatase Lactate Dehydrogenase Total Creatine Kinase Troponin I C-React Prot Ext Range Total Protein Albumin Globulin Albumin/Globulin Ratio Procalcitonin Urine Color Urine Clarity Urine pH Ur Specific Center Urine Protein Urine Glucose (UA) Urine Ketones Urine Occult Blood Urine Nitrite Urine Bilirubin Urine Urobilinogen Ur Leukocyte Esterase Urine RBC Urine WBC Ur Squamous Epith Cells Urine Bacteria Urine Mucus COVID-19 ([facility]OMEO) Cancelled MRSA (PCR) Negative 10/06/19 10/06/19 10/06/19 18:15 18:15 20:45 WBC RBC Hgb Hct MCV MCH MCHC RDW Std Deviation RDW Coeff of Inocencio Plt Count MPV Immature Gran % (Auto) Neut % (Auto) Lymph % (Auto) [place] % (Auto) Eos % (Auto) Baso % (Auto) Absolute Neuts (auto) Absolute Lymphs (auto) Nucleated RBC % Differential Comment PT INR APTT Fibrinogen D-Dimer Quant (PE/DVT) Sodium Potassium Chloride Carbon Dioxide Anion Gap BUN Creatinine Estim Creat Clear Calc Est GFR (MDRD) Af Amer Est GFR (MDRD) Non-Af BUN/Creatinine Ratio Glucose Lactic Acid Calcium Total Bilirubin AST ALT Alkaline Phosphatase Lactate Dehydrogenase 133 Total Creatine Kinase 32 L Troponin I 0.018 C-React Prot Ext Range 137.00 H Total Protein Albumin Globulin Albumin/Globulin Ratio Procalcitonin > 50.00 H Urine Color Lindy Urine Clarity Cloudy Urine pH 5.0 Ur Specific Center 1.010 Urine Protein 100 H Urine Glucose (UA) Normal Urine Ketones 5 H Urine Occult Blood 250 H Urine Nitrite Negative Urine Bilirubin Negative Urine Urobilinogen Normal Ur Leukocyte Esterase 100 H Urine RBC 50-100 SEEN Urine WBC 0-5 SEEN Ur Squamous Epith Cells 0 SEEN Urine Bacteria RARE Urine Mucus 0 SEEN COVID-19 ([facility]OMEO) MRSA (PCR) 10/06/19 10/07/19 10/07/19 21:15 00:15 00:15 WBC RBC Hgb Hct MCV MCH MCHC RDW Std Deviation RDW Coeff of Inocencio Plt Count MPV Immature Gran % (Auto) Neut % (Auto) Lymph % (Auto) [place] % (Auto) Eos % (Auto) Baso % (Auto) Absolute Neuts (auto) Absolute Lymphs (auto) Nucleated RBC % Differential Comment PT INR APTT 154.6 H* Fibrinogen D-Dimer Quant (PE/DVT) Sodium Potassium Chloride Carbon Dioxide Anion Gap BUN Creatinine Estim Creat Clear Calc Est GFR (MDRD) Af Amer Est GFR (MDRD) Non-Af BUN/Creatinine Ratio Glucose Lactic Acid Calcium Total Bilirubin AST ALT Alkaline Phosphatase Lactate Dehydrogenase Total Creatine Kinase Troponin I < 0.015 < 0.015 C-React Prot Ext Range Total Protein Albumin Globulin Albumin/Globulin Ratio Procalcitonin Urine Color Urine Clarity Urine pH Ur Specific Center Urine Protein Urine Glucose (UA) Urine Ketones Urine Occult Blood Urine Nitrite Urine Bilirubin Urine Urobilinogen Ur Leukocyte Esterase Urine RBC Urine WBC Ur Squamous Epith Cells Urine Bacteria Urine Mucus COVID-19 ([facility]) MRSA (PCR) 10/07/19 10/07/19 10/07/19 04:45 04:45 08:40 WBC 16.5 H RBC 2.62 L Hgb 8.2 L Hct 26.2 L MCV 100.0 H MCH 31.3 MCHC 31.3 L RDW Std Deviation 55.4 H RDW Coeff of Inocencio 15.2 H Plt Count 126 L MPV 12.7 H Immature Gran % (Auto) 3.100 H Neut % (Auto) 84.6 H Lymph % (Auto) 5.6 L [place] % (Auto) 6.4 Eos % (Auto) 0.1 Baso % (Auto) 0.2 Absolute Neuts (auto) 13.9 H Absolute Lymphs (auto) 0.92 Nucleated RBC % 0 Differential Comment PT INR APTT 61.5 H Fibrinogen D-Dimer Quant (PE/DVT) Sodium 135 L Potassium 4.2 Chloride 105 Carbon Dioxide 22.0 Anion Gap 8 BUN 72 H Creatinine 3.04 H Estim Creat Clear Calc 23.35 Est GFR (MDRD) Af Amer 26 L Est GFR (MDRD) Non-Af 22 L BUN/Creatinine Ratio 23.7 H Glucose 146 H Lactic Acid Calcium 7.7 L Total Bilirubin 0.50 AST 25 ALT 26 Alkaline Phosphatase 99 Lactate Dehydrogenase Total Creatine Kinase Troponin I C-React Prot Ext Range Total Protein 6.0 L Albumin 1.8 L Globulin 4.2 Albumin/Globulin Ratio 0.4 L Procalcitonin Urine Color Urine Clarity Urine pH Ur Specific Center Urine Protein Urine Glucose (UA) Urine Ketones Urine Occult Blood Urine Nitrite Urine Bilirubin Urine Urobilinogen Ur Leukocyte Esterase Urine RBC Urine WBC Ur Squamous Epith Cells Urine Bacteria Urine Mucus COVID-19 ([facility]) MRSA (PCR) - Other Studies Radiology: [] reviewed Other Studies: [] Route of nutrition/ use of supplements: [] Nutritional Intake: [] IV Site: [] Hook Catheter: [] - Physical Exam General: Alert, Oriented x3, Cooperative, No apparent distress HEENT: Atraumatic, PERRLA, EOMI Neck: Supple, No Nodes Lungs: Clear to auscultation, Normal air movement, Diminished Cardiovascular: Regular rate, Regular Rhythm Abdomen: Soft, Non Tender, Non-Distended, Obese Extremities: Edema Skin: No rashes - mild chronic erythema from venous stasis. IV Site: Peripheral, without redness Musculoskeletal: No Tenderness to Palpation of Joints or Extremities Neurological: Cranial nerves II-XII grossly intact - Assessment/Plan Antibiotics: [] Assessment/Plan: [] Active and Suspected Problems (Last Reviewed 10/06/19 @ 17:[address] Guillermo Fuchs, DO) Cellulitis of left lower extremity (Acute) Septic shock (Acute) Septic shock (Acute) DEEPTI (acute kidney injury) (Acute) Low suspicion for covid, initial pcr was neg. Ok to d/c isolation. Septic shock with strep bacteremia. Suspect chronic lymphedema as source. No urinary symptoms, but UA did show 50-100 wbc. Will stop vanc, continue zosyn. Repeat bcx today. Check renal u/s given DEEPTI on CKD. Checking echo. Will follow, thank you.
--- NOTE | 2019-10-07 10:53 | CASEMGMT ---
Social Work Pt has a copy of his advance directives in the EMR. Pt names his sister Gretel Russell as HCPOA. ROSA Arcos
--- NOTE | 2019-10-07 11:15 | CASEMGMT ---
RN CM NOTE: Attempted to talk with pt for initial RN CM assessment. Pt having Echo done at this time. RN CM to attempt at a later time. Adam CARTERN RN CM
[2019-10-07 11:55] LABS: Bedside Glucose 125 mg/dL (70-110)
--- NOTE | 2019-10-07 12:20 | CASEMGMT ---
RN CM NOTE: Attempted again to complete RN CM initial assessment. PT/OT working with pt at this time. Adam BSN RN CM
--- NOTE | 2019-10-07 12:28 | PN_ITS ---
Patient Problems: Active and Suspected Problems (Last Reviewed 10/06/19 @ 17:[address] Guillermo Fuchs, DO) Cellulitis of left lower extremity (Acute) Septic shock (Acute) Septic shock (Acute) DEEPTI (acute kidney injury) (Acute) Bacteremia (Acute) Reason for Visit: septic shock Subjective: Felling better. Vitals/I&O's: Vital Signs Temp Pulse Resp BP Pulse Ox 36.1 C L 77 17 95/72 99 10/07/19 12:00 10/07/19 12:00 10/07/19 12:00 10/07/19 12:00 10/07/19 12:00 Oxygen Flow Rate (L/min) 2 Oxygen Delivery Method Room Air Weight: 141.3 kg Body Mass Index (BMI) 44.5 Intake and Output for Last 24 Hours 10/05/19 10/06/19 10/07/19 23:59 23:59 23:59 Intake Total 5939.95 / 5939.95 596.60 / 596.60 Output Total 300 / 300 425 / 425 Balance 5639.95 / 5639.95 171.60 / 171.60 General: Alert, No apparent distress HEENT: Atraumatic, Normocephalic Oral: Moist Mucosa, No Gingival or Mucosal Lesions/ Ulcerations Lungs: Clear to auscultation, Normal air movement, No rhonchi, No wheeze Cardiovascular: Regular rate, Regular Rhythm, Normal S1, Normal S2, No murmurs Abdomen: Bowel Sounds Present, Soft, Non Tender, Non-Distended, No Hepato- splenomegaly Extremities: No edema, No Calf Tenderness Psych/Mental Status: Normal Affect, Appropriate Microbiology Past 72 Hours 10/06/19 14:15 Blood Culture (Wb) - Anticubital Right Bacteria Detection (PCR) - Final Strep not Strep pneumo 10/06/19 14:15 Blood Culture (Wb) - Anticubital Right Blood Culture - Preliminary 10/06/19 14:25 Blood Culture (Wb) - Anticubital Left Blood Culture - Preliminary 10/06/19 20:45 Urine Catheter - Catheter Streptococcus pneumoniae Antigen (M - Final 10/06/19 20:45 Urine Catheter - Catheter Legionella Antigen - Final 10/06/19 14:30 Mucosa - Nasopharyngeal Coronavirus COVID-19 PCR - Final 10/06/19 14:35 Mucosa - Nose Respiratory Panel (PCR) - Final 10/06/19 14:35 Mucosa - Nose Influenza Types A,B Direct FA (LEORA) - Final Laboratory Results 10/06/19 14:15: WBC 16.0 H, RBC 3.09 L, Hgb 9.7 L, Hct 30.6 L, MCV 99.0 H, MCH 31.4, MCHC 31.7 L, RDW Std Deviation 54.9 H, RDW Coeff of Inocencio 15.2 H, Plt Count 135 L, MPV 12.2 H, Immature Gran % (Auto) 0.900, Neut % (Auto) 92.9 H, Lymph % (Auto) 1.1 L, [place] % (Auto) 5.0, Eos % (Auto) 0.0, Baso % (Auto) 0.1, Absolute Neuts (auto) 14.8 H, Absolute Lymphs (auto) 0.17 L, Nucleated RBC % 0, Differential Comment COMMENT 10/06/19 14:15: Sodium 133 L, Potassium 4.9, Chloride 101, Carbon Dioxide 23.0, Anion Gap 9, BUN 71 H, Creatinine 3.08 H, Estim Creat Clear Calc 23.04, Est GFR (MDRD) Af Amer 26 L, Est GFR (MDRD) Non-Af 21 L, BUN/Creatinine Ratio 23.1 H, Glucose 114 H, Calcium 9.0, Total Bilirubin 0.70, AST 39 H, ALT 30, Alkaline Phosphatase 133 H, Total Protein 7.5, Albumin 2.3 L, Globulin 5.2 H, Albumin/Globulin Ratio 0.4 L 10/06/19 14:15: Lactic Acid 1.8 10/06/19 14:15: PT 17.3 H, INR 1.5, APTT 37.7 H, Fibrinogen 785 H, D-Dimer Quant (PE/DVT) 11.71 H* 10/06/19 14:35: COVID-19 ([facility]) Cancelled 10/06/19 18:05: MRSA (PCR) Negative 10/06/19 18:15: Lactate Dehydrogenase 133, Total Creatine Kinase 32 L, Troponin I 0.018, C-React Prot Ext Range 137.00 H 10/06/19 18:15: Procalcitonin > 50.00 H 10/06/19 20:45: Urine Color Lindy, Urine Clarity Cloudy, Urine pH 5.0, Ur Specific [place] 1.010, Urine Protein 100 H, Urine Glucose (UA) Normal, Urine Ketones 5 H, Urine Occult Blood 250 H, Urine Nitrite Negative, Urine Bilirubin Negative, Urine Urobilinogen Normal, Ur Leukocyte Esterase 100 H, Urine RBC 50- 100 SEEN, Urine WBC 0-5 SEEN, Ur Squamous Epith Cells 0 SEEN, Urine Bacteria RARE, Urine Mucus 0 SEEN 10/06/19 21:15: Troponin I < 0.015 10/07/19 00:15: Troponin I < 0.015 10/07/19 00:15: APTT 154.6 H* 10/07/19 04:45: WBC 16.5 H, RBC 2.62 L, Hgb 8.2 L, Hct 26.2 L, MCV 100.0 H, MCH 31.3, MCHC 31.3 L, RDW Std Deviation 55.4 H, RDW Coeff of Inocencio 15.2 H, Plt Count 126 L, MPV 12.7 H, Immature Gran % (Auto) 3.100 H, Neut % (Auto) 84.6 H, Lymph % (Auto) 5.6 L, [place] % (Auto) 6.4, Eos % (Auto) 0.1, Baso % (Auto) 0.2, Absolute Neuts (auto) 13.9 H, Absolute Lymphs (auto) 0.92, Nucleated RBC % 0 10/07/19 04:45: Sodium 135 L, Potassium 4.2, Chloride 105, Carbon Dioxide 22.0, Anion Gap 8, BUN 72 H, Creatinine 3.04 H, Estim Creat Clear Calc 23.35, Est GFR (MDRD) Af Amer 26 L, Est GFR (MDRD) Non-Af 22 L, BUN/Creatinine Ratio 23.7 H, Glucose 146 H, Calcium 7.7 L, Total Bilirubin 0.50, AST 25, ALT 26, Alkaline Phosphatase 99, Total Protein 6.0 L, Albumin 1.8 L, Globulin 4.2, Albumin/Globulin Ratio 0.4 L 10/07/19 08:40: APTT 61.5 H 10/07/19 11:20: POC Glucose 125 H Current Medications Acetaminophen (Tylenol) 650 mg PO Q6H PRN PRN PRN Reason: Pain Score 1-10/Temp > 100.7 F Dextrose (D50w Syringe) 0 gm IV X1 PRN; Protocol PRN Reason: Hypoglycemia Emollient Ointment (Eucerin Intensive Repair) 1 applic TOPICAL DAILY [facility]; Protocol Last Admin: 10/07/19 11:21 Dose: 1 applic Documented by: Ferrous Sulfate (Ferrous Sulfate) 325 mg PO 1200,1700 DONNA Glucagon () 1 mg IM .X1 PRN PRN Reason: Hypoglycemia Guaifenesin (Mucinex) 1,200 mg PO BID [facility] Last Admin: 10/07/19 08:25 Dose: 1,200 mg Documented by: Heparin Sodium (Porcine) (Heparin Na) 5,000 unit SC Q8 DONNA Sodium Chloride () 250 mls @ 15 mls/hr IV .[id number] PRN PRN Reason: Saline Flush Sodium Chloride () 250 mls @ 15 mls/hr IV .[id number] PRN PRN Reason: Additional IVPB Infusion Piperacillin Sod/Tazobactam (Sod 3.375 gm/ Sodium Chloride) 50 mls @ 12.5 mls/hr IV Q12H [facility] Insulin Human Lispro (Humalog Kwikpen (Bkc)) 0 unit SC TIDAC [facility]; Protocol Last Admin: 10/07/19 11:21 Dose: Not Given Documented by: Multivitamins (Multivitamin) 1 tablet PO DAILYCM [facility] Ondansetron HCl (Zofran) 4 mg IV Q8H PRN PRN PRN Reason: NAUSEA/VOMITING Sodium Chloride () 10 - 40 ml IV UD PRN PRN Reason: SALINE FLUSH Last Admin: 10/06/19 20:51 Dose: 40 ml Documented by: STROKE Vital Signs/Narrative: Vital Signs Temp Pulse Resp BP BP Pulse Ox 10/07/19 12:00 36.1 C L 77 17 95/72 99 10/07/19 11:03 73 10/07/19 11:00 74 15 93/62 100 10/07/19 10:00 36.0 C L 75 20 H 85/68 L 100 10/07/19 09:00 75 17 104/59 L 99 Medical Necessity - Tobacco Use Smoking Status: Never smoker Assessment/Plan All Active Problems (Last Reviewed 10/06/19 @ 17:[address] Guillermo Fuchs, DO) Ulcer of right lower extremity with fat layer exposed (Resolved) Cellulitis of left lower extremity (Acute) Septic shock (Acute) Septic shock (Acute) DEEPTI (acute kidney injury) (Acute) Bacteremia (Acute) Anemia (Acute) 1. Septic shock: * resolved Developed shortly after arrival. Time of onset appears to be 1616 where his blood pressure was 75/54. * Received the 30 cc/kg bolus. No pressors needed. * I did discuss with the patient about the potential need for pressors and if needed that he may require a central line. Discussed the risks and benefits of a central IV catheter. He agrees to proceed if necessary. * Influenza negative * Follow-up on blood cultures, COVID-19 and respiratory panel. * Will also order urinalysis, urine culture, sputum culture, strep and Legionella antigens * Continue with broad-spectrum antibiotics with Pipracil and/tazobactam for now * Appears to be related to bacteremia. * Consultations placed to critical care medicine and infectious disease * Given the concern for COVID-19, will check additional laboratory, including d- dimer. 2. Acute kidney injury: * Presumed ATN * Currently receiving IV fluids. * Will hold his enalapril and furosemide. * Monitor 3. Bacteremia * Strep * suspect from LE * repeat BCx * may need TTE 4. Diabetes mellitus type 2: Diet controlled at home. Signed scale insulin for now as I do anticipate worsening glycemic control given the septic shock. 5. Lymphedema: Patient does have a history of ulcers on his legs that does appear to be improved. Consult wound care for further management. 6. Morbid obesity: Overall complicates care. 7. VTE prophylaxis: change to SQ heparin 8. Advanced care planning: Patient wishes to be full CODE STATUS. Inpatient E&M: 36765 Subs Hosp L2
[2019-10-07] MEDS: Heparin Injection (Vial) 5,000 UNIT/ML VIAL 5000 UNIT SC ×2 (13:15→21:02)
--- NOTE | 2019-10-07 14:15 | CASEMGMT ---
RN RALF CALL OR CONTACT CENTRE MANAGER CM to room to meet with patient for initial transition planning/care coordination assessment. RN RALF introduced self and role at [facility]. Pt voices understanding and consents to assessment at this time. Pt resting in bed in no distress at this time. Pt is A/O at this time and answers all questions appropriately. Care providers, pharmacy, and demographics verified/updated at this time. PCP: Dr Salas Specialists: Dr Liu @ [facility]--states goes every other , Dr Mcleod-nephrology, Dr Hannon--oncology, Dr Loco--cardiology, Dr Roy--podiatry Preferred Pharmacy: [facility] Insurance: TBS, [employer] Prescription Benefit: Yes Living Will/HPOA: Has both LW and Healthcare POA, who is his sister, Gretel LNOK: SisterGretel/POZachary Living Arrangements: Lives alone in a 2nd-story apt @ [facility], with elevator access. is independent with ADL's. Hires a exhibit cleaner 1-2 x's/week (private-pay) who helps with cleaning, medication set-up, and will assist with bathing if he needs, but has not needed that for a long time. Pt goes grocery shopping with his sister. Transportation: Sister, Niece. sister will most likely take him home @ D/C DME: has the following DME: tub bench, raised toilet seat, lift chair that transitions into a bed, rails/grab bars, hand-held shower, rollator, compression boots. Has a cane but does not use. Has a glucometer that functions properly and he has all the needed supplies for it. Pt states would like info on Medical Alert button. Given list of local [employer] that provide this. Pt voices appreciation. HHC/SNF: No history of SNF. has HHC currently and a nurse comes out 3 x's/week to do dressing changes. Pt states he thinks it is [facility], but is not sure. Call placed to [facility] [place]. They confirm they are currently active with pt and that he received intermediate services. They were made aware pt has been admitted to [facility]. Resumption of HHC order placed. H/P faxed to them at this time. PT/OT evals have been reviewed and additional therapy recommended. Pt states he does not want any PT/OT at home, stating, I can do that myself. Pt made aware, if in the future, he is interested in PT/OT being added to [facility] services, to let [facility] nurse know. He voices understanding. Pt aked for [facility] to be notified that he has been admitted. Call placed to [facility] and spoke with Frieda. She was made aware pt has been admitted. She states pt does not have an appt with them today, that he is scheduled for next . Pt wishes to return home and states w/resumption of HHC, nursing services only. He has no concerns with going home at time of discharge. CM to follow for any further discharge planning/needs. Pt voices no further concerns/needs at this time. Advised pt to ask for CM if any further questions/concerns/needs arise. Voices understanding. PLAN: Home w/resumption of [facility] HHC: intermediate. Pt noted w/sleep apnea while @ [facility]. Plan is to have sleep studies scheduled as an out-pt. Adam MARTINEZ RN CM
--- NOTE | 2019-10-07 15:03 | NURSING ---
Pt arrived from ICU. He was able to ambulate with walker to the chair. Oriented to room and call light. Urinal is given at bedside. Call light in reach and ordering meal.
[2019-10-07 16:10] LABS: Bedside Glucose 159 mg/dL (70-110)
[2019-10-07] MEDS: 0.9% Saline Lock 10 ML Syringe IV (17:39)
[2019-10-07] MEDS: Ferrous Sulfate 325 MG Tablet PO (17:42)
[2019-10-07 21:35] LABS: Bedside Glucose 161 mg/dL (70-110)
[2019-10-08] VITALS (12 sets, daily range): BP systolic 104–133; BP diastolic 62–75; PULSE 70–88; RESP 12–19; TEMP 36.4–36.7; O2SAT 97–100
--- NOTE | 2019-10-08 00:30 | NURSING ---
Placed pt. back on bipap machine per pt. request.
--- NOTE | 2019-10-08 02:09 | NURSING ---
Pt. took off bipap, no longer can tolerate it. Unable to sleep the whole time.
[2019-10-08] MEDS: Heparin Injection (Vial) 5,000 UNIT/ML VIAL 5000 UNIT SC ×3 (05:10→20:37)
[2019-10-08 05:55] LABS: Hematocrit 26.5 % (40-54); Hemoglobin 8.3 g/dL (13.0-16.5); Mean Corp Hgb Conc 31.3 g/dL (32-36); Mean Corpuscular Hgb 30.9 pg (27.0-32.0); Mean Corpuscular Volume 98.5 fL (80-94); Mean Platelet Vol. 12.2 fl (6.2-12.0); POSITIVE COUNT YES; POSITIVE MORPHOLOGY YES; Platelet Count 115 K/mm3 (150-450); RBC Distribution Width CV 15.1 % (11.6-14.6); RBC Distribution Width SD 54.6 fl (35.1-43.9); Red Blood Count 2.69 M/mm3 (4.6-6.2); White Blood Count 11.3 K/mm3 (4.4-11.0)
[2019-10-08 06:17] LABS: Anion Gap 8 (5-15); BUN 78 mg/dL (7-18); BUN/Creat Ratio 26.8 RATIO (10-20); Calcium,Total 8.2 mg/dL (8.5-10.1); Chloride 105 mmol/L (98-107); Creatinine, Serum 2.91 mg/dL (0.70-1.30); EST Glomerular Filtration Rate 23 mL/min (>60); Est Glom Filt Rate - Afr Amer 28 mL/min (>60); Estimated Creatinine Clearance 24.39 ml/min; Glucose 125 mg/dL (74-106); Potassium 3.9 mmol/L (3.5-5.1); Sodium Level 134 mmol/L (136-145)
[2019-10-08 06:19] LABS: Differential Indicated MANUAL DIFF
[2019-10-08 07:02] LABS: Eosinophil 5 % (0-5); Lymphocyte 13 % (19-41); Monocyte 5 % (0-10); Neutrophil-Segmented 76 % (47-70); Plasma Cell 1 %; Total Cells Counted 100 (MANUAL DIFF)
[2019-10-08 07:03] LABS: Absolute Neutrophil Count 8.6 X10^3/uL (2.0-7.7); Neutrophil # 8.59 X10^3/uL (2.7-7.7); Platelet Estimate ADEQUATE (ADEQ); Red Cell Morphology NORM C+C NORMAL (NORM C&C)
--- NOTE | 2019-10-08 08:35 | PN_ITS ---
Subjective: Patient did well overnight. Patient was transferred from the intensive care unit and has remained hemodynamically stable on room air. Patient wore his BiPAP for approximately 4 hours last evening, but reports he was not asleep for any of it. Patient took off the mask to get some sleep and stated that it was too loud and pushed too hard. Patient does state that he plans on taking a nap this afternoon secondary to decreased sleep overnight. Objective: Echocardiogram shows an EF of 60% with a moderately enlarged left atrium and mildly dilated right ventricle. Diffuse aortic valve thickening with moderate aortic stenosis noted. There was no report of possible vegetations General: Alert, Oriented x3, Cooperative, No apparent distress, - - Morbidly obese. Speaking in full sentences. HEENT: Atraumatic, PERRLA, EOMI, Normocephalic, - - No scleral icterus or injection noted Oral: Moist Mucosa, No Gingival or Mucosal Lesions/ Ulcerations Neck: Supple, No Nodes, Trachea Midline, - - If occult to assess JVD secondary to body habitus Lungs: Clear to auscultation, No rhonchi, No wheeze, No rales, Diminished, - - Symmetric expansion. No dullness to percussion. Cardiovascular: Regular rate, Regular Rhythm, Normal S1, Normal S2, Murmur - Grade 2 out of 6 systolic ejection murmur at the right sternal border, No rub noted, No Gallop Abdomen: Bowel Sounds Present, Soft, Non Tender, Non-Distended, Obese Extremities: No clubbing, No cyanosis, Edema Skin: - - No significant change compared to previous Musculoskeletal: No Tenderness to Palpation of Joints or Extremities Lymphatic: No Cervical, Supraclavicular, or Inguinal Adenopathy Neurological: Cranial nerves II-XII grossly intact, Neuro grossly intact, Motor Exam 5/5 strength throughout Psych/Mental Status: Alert and oriented to time, place, person, mood and affect Vital Signs Temp Pulse Resp BP Pulse Ox 36.6 C 80 18 110/65 97 10/08/19 08:28 10/08/19 08:28 10/08/19 08:28 10/08/19 08:10/08/19 08:28 Oxygen Flow Rate (L/min) 2 Oxygen Delivery Method Room Air Weight: 144 kg Body Mass Index (BMI) 44.5 Intake and Output for Last 24 Hours 05/10/07/19 10/08/19 23:59 23:59 23:59 Intake Total 5939.95 / 5939.95 1347.85 / 1347.85 538 / 538 Output Total 300 / 300 1200 / 1200 525 / 525 Balance 5639.95 / 5639.95 147.85 / 147.85 Labs (Last 48 Hours) 10/06/19 10/06/19 10/06/19 14:15 14:15 14:15 WBC 16.0 H RBC 3.09 L Hgb 9.7 L Hct 30.6 L MCV 99.0 H MCH 31.4 MCHC 31.7 L RDW Std Deviation 54.9 H RDW Coeff of Inocencio 15.2 H Plt Count 135 L MPV 12.2 H Immature Gran % (Auto) 0.900 Neut % (Auto) 92.9 H Lymph % (Auto) 1.1 L [place] % (Auto) 5.0 Eos % (Auto) 0.0 Baso % (Auto) 0.1 Absolute Neuts (auto) 14.8 H Absolute Lymphs (auto) 0.17 L Total Counted Neutrophils % (Manual) Lymphocytes % (Manual) Monocytes % (Manual) Eosinophils % (Manual) Plasma Cell % (Manual) Nucleated RBC % 0 Differential Comment COMMENT Diff Path Review Platelet Estimate RBC Morphology PT INR APTT Fibrinogen D-Dimer Quant (PE/DVT) Sodium 133 L Potassium 4.9 Chloride 101 Carbon Dioxide 23.0 Anion Gap 9 BUN 71 H Creatinine 3.08 H Estim Creat Clear Calc 23.04 Est GFR (MDRD) Af Amer 26 L Est GFR (MDRD) Non-Af 21 L BUN/Creatinine Ratio 23.1 H Glucose 114 H Lactic Acid 1.8 Calcium 9.0 Total Bilirubin 0.70 AST 39 H ALT 30 Alkaline Phosphatase 133 H Lactate Dehydrogenase Total Creatine Kinase Troponin I C-React Prot Ext Range Total Protein 7.5 Albumin 2.3 L Globulin 5.2 H Albumin/Globulin Ratio 0.4 L Procalcitonin Urine Color Urine Clarity Urine pH Ur Specific [place] Urine Protein Urine Glucose (UA) Urine Ketones Urine Occult Blood Urine Nitrite Urine Bilirubin Urine Urobilinogen Ur Leukocyte Esterase Urine RBC Urine WBC Ur Squamous Epith Cells Urine Bacteria Urine Mucus COVID-19 (ROMEO) MRSA (PCR) POC Glucose 10/06/19 10/06/19 10/06/19 14:15 14:35 18:05 WBC RBC Hgb Hct MCV MCH MCHC RDW Std Deviation RDW Coeff of Inocencio Plt Count MPV Immature Gran % (Auto) Neut % (Auto) Lymph % (Auto) [place] % (Auto) Eos % (Auto) Baso % (Auto) Absolute Neuts (auto) Absolute Lymphs (auto) Total Counted Neutrophils % (Manual) Lymphocytes % (Manual) Monocytes % (Manual) Eosinophils % (Manual) Plasma Cell % (Manual) Nucleated RBC % Differential Comment Diff Path Review Platelet Estimate RBC Morphology PT 17.3 H INR 1.5 APTT 37.7 H Fibrinogen 785 H D-Dimer Quant (PE/DVT) 11.71 H* Sodium Potassium Chloride Carbon Dioxide Anion Gap BUN Creatinine Estim Creat Clear Calc Est GFR (MDRD) Af Amer Est GFR (MDRD) Non-Af BUN/Creatinine Ratio Glucose Lactic Acid Calcium Total Bilirubin AST ALT Alkaline Phosphatase Lactate Dehydrogenase Total Creatine Kinase Troponin I C-React Prot Ext Range Total Protein Albumin Globulin Albumin/Globulin Ratio Procalcitonin Urine Color Urine Clarity Urine pH Ur Specific [place] Urine Protein Urine Glucose (UA) Urine Ketones Urine Occult Blood Urine Nitrite Urine Bilirubin Urine Urobilinogen Ur Leukocyte Esterase Urine RBC Urine WBC Ur Squamous Epith Cells Urine Bacteria Urine Mucus COVID-19 (ROMEO) Cancelled MRSA (PCR) Negative POC Glucose 10/06/19 10/06/19 10/06/19 18:15 18:15 20:45 WBC RBC Hgb Hct MCV MCH MCHC RDW Std Deviation RDW Coeff of Inocencio Plt Count MPV Immature Gran % (Auto) Neut % (Auto) Lymph % (Auto) [place] % (Auto) Eos % (Auto) Baso % (Auto) Absolute Neuts (auto) Absolute Lymphs (auto) Total Counted Neutrophils % (Manual) Lymphocytes % (Manual) Monocytes % (Manual) Eosinophils % (Manual) Plasma Cell % (Manual) Nucleated RBC % Differential Comment Diff Path Review Platelet Estimate RBC Morphology PT INR APTT Fibrinogen D-Dimer Quant (PE/DVT) Sodium Potassium Chloride Carbon Dioxide Anion Gap BUN Creatinine Estim Creat Clear Calc Est GFR (MDRD) Af Amer Est GFR (MDRD) Non-Af BUN/Creatinine Ratio Glucose Lactic Acid Calcium Total Bilirubin AST ALT Alkaline Phosphatase Lactate Dehydrogenase 133 Total Creatine Kinase 32 L Troponin I 0.018 C-React Prot Ext Range 137.00 H Total Protein Albumin Globulin Albumin/Globulin Ratio Procalcitonin > 50.00 H Urine Color [place] Urine Clarity Cloudy Urine pH 5.0 Ur Specific [place] 1.010 Urine Protein 100 H Urine Glucose (UA) Normal Urine Ketones 5 H Urine Occult Blood 250 H Urine Nitrite Negative Urine Bilirubin Negative Urine Urobilinogen Normal Ur Leukocyte Esterase 100 H Urine RBC 50-100 SEEN Urine WBC 0-5 SEEN Ur Squamous Epith Cells 0 SEEN Urine Bacteria RARE Urine Mucus 0 SEEN COVID-19 ([facility]) MRSA (PCR) POC Glucose 10/06/19 10/07/19 10/07/19 21:15 00:15 00:15 WBC RBC Hgb Hct MCV MCH MCHC RDW Std Deviation RDW Coeff of Inocencio Plt Count MPV Immature Gran % (Auto) Neut % (Auto) Lymph % (Auto) [place] % (Auto) Eos % (Auto) Baso % (Auto) Absolute Neuts (auto) Absolute Lymphs (auto) Total Counted Neutrophils % (Manual) Lymphocytes % (Manual) Monocytes % (Manual) Eosinophils % (Manual) Plasma Cell % (Manual) Nucleated RBC % Differential Comment Diff Path Review Platelet Estimate RBC Morphology PT INR APTT 154.6 H* Fibrinogen D-Dimer Quant (PE/DVT) Sodium Potassium Chloride Carbon Dioxide Anion Gap BUN Creatinine Estim Creat Clear Calc Est GFR (MDRD) Af Amer Est GFR (MDRD) Non-Af BUN/Creatinine Ratio Glucose Lactic Acid Calcium Total Bilirubin AST ALT Alkaline Phosphatase Lactate Dehydrogenase Total Creatine Kinase Troponin I < 0.015 < 0.015 C-React Prot Ext Range Total Protein Albumin Globulin Albumin/Globulin Ratio Procalcitonin Urine Color Urine Clarity Urine pH Ur Specific [place] Urine Protein Urine Glucose (UA) Urine Ketones Urine Occult Blood Urine Nitrite Urine Bilirubin Urine Urobilinogen Ur Leukocyte Esterase Urine RBC Urine WBC Ur Squamous Epith Cells Urine Bacteria Urine Mucus COVID-19 ([facility]O) MRSA (PCR) POC Glucose 10/07/19 10/07/19 10/07/19 04:45 04:45 08:40 WBC 16.5 H RBC 2.62 L Hgb 8.2 L Hct 26.2 L MCV 100.0 H MCH 31.3 MCHC 31.3 L RDW Std Deviation 55.4 H RDW Coeff of Inocencio 15.2 H Plt Count 126 L MPV 12.7 H Immature Gran % (Auto) 3.100 H Neut % (Auto) 84.6 H Lymph % (Auto) 5.6 L [place] % (Auto) 6.4 Eos % (Auto) 0.1 Baso % (Auto) 0.2 Absolute Neuts (auto) 13.9 H Absolute Lymphs (auto) 0.92 Total Counted Neutrophils % (Manual) Lymphocytes % (Manual) Monocytes % (Manual) Eosinophils % (Manual) Plasma Cell % (Manual) Nucleated RBC % 0 Differential Comment Diff Path Review Platelet Estimate RBC Morphology PT INR APTT 61.5 H Fibrinogen D-Dimer Quant (PE/DVT) Sodium 135 L Potassium 4.2 Chloride 105 Carbon Dioxide 22.0 Anion Gap 8 BUN 72 H Creatinine 3.04 H Estim Creat Clear Calc 23.35 Est GFR (MDRD) Af Amer 26 L Est GFR (MDRD) Non-Af 22 L BUN/Creatinine Ratio 23.7 H Glucose 146 H Lactic Acid Calcium 7.7 L Total Bilirubin 0.50 AST 25 ALT 26 Alkaline Phosphatase 99 Lactate Dehydrogenase Total Creatine Kinase Troponin I C-React Prot Ext Range Total Protein 6.0 L Albumin 1.8 L Globulin 4.2 Albumin/Globulin Ratio 0.4 L Procalcitonin Urine Color Urine Clarity Urine pH Ur Specific [place] Urine Protein Urine Glucose (UA) Urine Ketones Urine Occult Blood Urine Nitrite Urine Bilirubin Urine Urobilinogen Ur Leukocyte Esterase Urine RBC Urine WBC Ur Squamous Epith Cells Urine Bacteria Urine Mucus COVID-19 ([facility]) MRSA (PCR) POC Glucose 10/07/19 10/07/19 10/07/19 11:20 16:08 20:59 WBC RBC Hgb Hct MCV MCH MCHC RDW Std Deviation RDW Coeff of Inocencio Plt Count MPV Immature Gran % (Auto) Neut % (Auto) Lymph % (Auto) [place] % (Auto) Eos % (Auto) Baso % (Auto) Absolute Neuts (auto) Absolute Lymphs (auto) Total Counted Neutrophils % (Manual) Lymphocytes % (Manual) Monocytes % (Manual) Eosinophils % (Manual) Plasma Cell % (Manual) Nucleated RBC % Differential Comment Diff Path Review Platelet Estimate RBC Morphology PT INR APTT Fibrinogen D-Dimer Quant (PE/DVT) Sodium Potassium Chloride Carbon Dioxide Anion Gap BUN Creatinine Estim Creat Clear Calc Est GFR (MDRD) Af Amer Est GFR (MDRD) Non-Af BUN/Creatinine Ratio Glucose Lactic Acid Calcium Total Bilirubin AST ALT Alkaline Phosphatase Lactate Dehydrogenase Total Creatine Kinase Troponin I C-React Prot Ext Range Total Protein Albumin Globulin Albumin/Globulin Ratio Procalcitonin Urine Color Urine Clarity Urine pH Ur Specific [place] Urine Protein Urine Glucose (UA) Urine Ketones Urine Occult Blood Urine Nitrite Urine Bilirubin Urine Urobilinogen Ur Leukocyte Esterase Urine RBC Urine WBC Ur Squamous Epith Cells Urine Bacteria Urine Mucus COVID-19 ([facility]) MRSA (PCR) POC Glucose 125 H 159 H 161 H 10/08/19 10/08/19 05:22 05:22 WBC 11.3 H RBC 2.69 L Hgb 8.3 L Hct 26.5 L MCV 98.5 H MCH 30.9 MCHC 31.3 L RDW Std Deviation 54.6 H RDW Coeff of Inocencio 15.1 H Plt Count 115 L MPV 12.2 H Immature Gran % (Auto) Neut % (Auto) Not Reportable Lymph % (Auto) [place] % (Auto) Eos % (Auto) Baso % (Auto) Absolute Neuts (auto) 8.6 H Absolute Lymphs (auto) 1.50 Total Counted 100 Neutrophils % (Manual) 76 H Lymphocytes % (Manual) 13 L Monocytes % (Manual) 5 Eosinophils % (Manual) 5 Plasma Cell % (Manual) 1 Nucleated RBC % Differential Comment Diff Path Review May foll Platelet Estimate ADEQUATE RBC Morphology NORM C+C PT INR APTT Fibrinogen D-Dimer Quant (PE/DVT) Sodium 134 L Potassium 3.9 Chloride 105 Carbon Dioxide 21.0 Anion Gap 8 BUN 78 H Creatinine 2.91 H Estim Creat Clear Calc 24.39 Est GFR (MDRD) Af Amer 28 L Est GFR (MDRD) Non-Af 23 L BUN/Creatinine Ratio 26.8 H Glucose 125 H Lactic Acid Calcium 8.2 L Total Bilirubin AST ALT Alkaline Phosphatase Lactate Dehydrogenase Total Creatine Kinase Troponin I C-React Prot Ext Range Total Protein Albumin Globulin Albumin/Globulin Ratio Procalcitonin Urine Color Urine Clarity Urine pH Ur Specific [place] Urine Protein Urine Glucose (UA) Urine Ketones Urine Occult Blood Urine Nitrite Urine Bilirubin Urine Urobilinogen Ur Leukocyte Esterase Urine RBC Urine WBC Ur Squamous Epith Cells Urine Bacteria Urine Mucus COVID-19 ([facility]) MRSA (PCR) POC Glucose Microbiology 10/06/19 14:15 Blood Culture (Wb) - Anticubital Right Bacteria Detection (PCR) - Final Strep not Strep pneumo 10/06/19 14:15 Blood Culture (Wb) - Anticubital Right Blood Culture - Preliminary Streptococcus group G 10/06/19 14:25 Blood Culture (Wb) - Anticubital Left Blood Culture - Preliminary Streptococcus group G 10/06/19 20:45 Urine Catheter - Catheter Streptococcus pneumoniae Antigen (M - Final 10/06/19 20:45 Urine Catheter - Catheter Legionella Antigen - Final 10/06/19 14:30 Mucosa - Nasopharyngeal Coronavirus COVID-19 PCR - Final 10/06/19 14:35 Mucosa - Nose Respiratory Panel (PCR) - Final 10/06/19 14:35 Mucosa - Nose Influenza Types A,B Direct FA (LEORA) - Final Clinical Impression(s) from Imaging Studies Renal Ultrasound 10/07/19 10:39 IMPRESSION: 1. Minimally increased renal cortical echogenicity. Question medical renal disease. 2. Prominent bilateral kidneys unchanged in size from prior study. 3. Left renal cyst. 4. Fluid density area adjacent to the left kidney this is consistent with a larger exophytic cyst off the upper pole noted on the prior ultrasound. 5. Normal urinary bladder. Electronically Signed: Sudhakar Tang DO at 19:38 EDT Tel [phone], Service support , Medical Necessity - Tobacco Use Smoking Status: Never smoker Assessment/Plan All Active Problems (Last Reviewed 10/06/19 @ 17:[address] Guillermo Fuchs DO) Bacteremia (Acute) Ulcer of right lower extremity with fat layer exposed (Resolved) Cellulitis of left lower extremity (Acute) Septic shock (Acute) Septic shock (Acute) DEEPTI (acute kidney injury) (Acute) Anemia (Acute) RECOMMENDATIONS: 1. Continue antibiotics per infectious disease 2. Monitor renal function. Possible consult to Dr. Mcleod (primary mining speculator) if not improving 3. Decrease empiric BiPAP settings to 12/8 centimeters of water 4. Empiric BiPAP therapy with sleep. PSG as an outpatient 5. Wean oxygen as tolerated IMPRESSIONS: 1. Septic shock secondary to probable cellulitis with group G Streptococcus Extensive work-up from a viral standpoint has been negative thus far. Patient does have group G Streptococcus growing in his blood. Patient's lower extremities are not overly impressive. If repeat blood culture is positive for group G streptococcus, patient may require a AMPARO for evaluation of endocarditis. Patient does appear to be responding to antibiotics and volume resuscitation. Will defer to infectious disease on antibiotic course 2. Acute on chronic kidney disease stage III Patient presented hypotensive and is on Lasix and an PHUC inhibitor at baseline. Clinical suspicion for prerenal etiology. Blood pressure continues to improve. Patient is reporting good urine output. If patient is not improving by tomorrow, consultation to nephrology may be appropriate. No indication for renal replacement therapy at this time. 3. Lymphedema/morbid obesity/probable HERNÁN/advanced age Complicates care, management, recovery and prognosis. Patient desaturating with sleep, likely secondary to baseline obstructive sleep apnea. This will have to be addressed as an outpatient, but will decrease empiric BiPAP therapy with sleep for now. BiPAP is not being initiated secondary to respiratory failure. Inpatient E&M: 41903 Subs Hosp L2
[2019-10-08] MEDS: Multivitamins,Therapeutic Tablet 1 TABLET PO (08:40)
[2019-10-08] MEDS: guaiFENesin 1,200 MG Tablet 1200 MG PO ×2 (08:40→20:37)
--- NOTE | 2019-10-08 08:56 | NURSING ---
Bilateral lower legs continue to improve. less redness noted to the LLE. no open areas, just some dry flaky skin noted. washed legs and feet with soap and water. pat dry. applied eucerin as ordered and applied the PHUC wraps from the base of the toes to just below the knees. pt tolerated well.
[2019-10-08 09:25] LABS: Pathologist Review Reviewed
[2019-10-08 09:31] LABS: Bedside Glucose 104 mg/dL (70-110)
[2019-10-08] MEDS: Nystatin Powder 15gm Bottle 1 APPLIC TOPICAL ×2 (10:27→20:37)
--- NOTE | 2019-10-08 11:45 | CASEMGMT ---
Per Dr. Schulte, pt will go home on po antibx at discharge. Green sheet on chart for resumption of HHC at discharge. Miranda PRASAD CM
--- NOTE | 2019-10-08 12:27 | PCM.PN.ID ---
Patient Problems: Active and Suspected Problems (Last Reviewed 10/06/19 @ 17:[address] Guillermo Fuchs, DO) Bacteremia (Acute) Cellulitis of left lower extremity (Acute) Septic shock (Acute) Septic shock (Acute) DEEPTI (acute kidney injury) (Acute) Subjective: Feeling good, no fever, no abd pain, legs doing great - Physical Exam Vitals/I&O's: Vital Signs Temp Pulse Resp BP Pulse Ox 97.9 F 80 18 110/65 97 10/08/19 08:28 10/08/19 08:28 10/08/19 08:28 10/08/19 08:28 10/08/19 08:28 Oxygen Flow Rate (L/min) 2 Oxygen Delivery Method Room Air Weight: 144 kg Body Mass Index (BMI) 44.5 Intake and Output for Last 24 Hours 10/06/19 10/07/19 10/08/19 23:59 23:59 23:59 Intake Total 5939.95 / 5939.95 1347.85 / 1347.85 588 / 588 Output Total 300 / 300 1200 / 1200 525 / 525 Balance 5639.95 / 5639.95 147.85 / 147.85 63 / 63 General: Alert, Cooperative, No apparent distress Lungs: Clear to auscultation, Normal air movement Cardiovascular: Regular rate, Regular Rhythm Abdomen: Soft, Non Tender, Non-Distended Extremities: Edema Skin: No rashes Microbiology Past 72 Hours 10/06/19 20:45 Urine, Catheterized Urine Culture - Preliminary Culture exhibits no growth. 10/06/19 14:15 Blood Culture (Wb) - Anticubital Right Bacteria Detection (PCR) - Final Strep not Strep pneumo 10/06/19 14:15 Blood Culture (Wb) - Anticubital Right Blood Culture - Preliminary Streptococcus group G 10/06/19 14:25 Blood Culture (Wb) - Anticubital Left Blood Culture - Preliminary Streptococcus group G 10/06/19 20:45 Urine Catheter - Catheter Streptococcus pneumoniae Antigen (M - Final 10/06/19 20:45 Urine Catheter - Catheter Legionella Antigen - Final 10/06/19 14:30 Mucosa - Nasopharyngeal Coronavirus COVID-19 PCR - Final 10/06/19 14:35 Mucosa - Nose Respiratory Panel (PCR) - Final 10/06/19 14:35 Mucosa - Nose Influenza Types A,B Direct FA (LEORA) - Final Laboratory Results 10/07/19 16:08: POC Glucose 159 H 10/07/19 20:59: POC Glucose 161 H 10/08/19 05:22: WBC 11.3 H, RBC 2.69 L, Hgb 8.3 L, Hct 26.5 L, MCV 98.5 H, MCH 30.9, MCHC 31.3 L, RDW Std Deviation 54.6 H, RDW Coeff of Inocencio 15.1 H, Plt Count 115 L, MPV 12.2 H, Neut % (Auto) Not Reportable, Absolute Neuts (auto) 8.6 H, Absolute Lymphs (auto) 1.50, Total Counted 100, Neutrophils % (Manual) 76 H, Lymphocytes % (Manual) 13 L, Monocytes % (Manual) 5, Eosinophils % (Manual) 5, Plasma Cell % (Manual) 1, Diff Path Review Reviewed, Platelet Estimate ADEQUATE, RBC Morphology NORM C+C 10/08/19 05:22: Sodium 134 L, Potassium 3.9, Chloride 105, Carbon Dioxide 21.0, Anion Gap 8, BUN 78 H, Creatinine 2.91 H, Estim Creat Clear Calc 24.39, Est GFR (MDRD) Af Amer 28 L, Est GFR (MDRD) Non-Af 23 L, BUN/Creatinine Ratio 26.8 H, Glucose 125 H, Calcium 8.2 L 10/08/19 08:01: POC Glucose 104 Current Medications Acetaminophen (Tylenol) 650 mg PO Q6H PRN PRN PRN Reason: Pain Score 1-10/Temp > 100.7 F Dextrose (D50w Syringe) 0 gm IV X1 PRN; Protocol PRN Reason: Hypoglycemia Emollient Ointment (Eucerin Intensive Repair) 1 applic TOPICAL DAILY DONNA; Protocol Last Admin: 10/08/19 08:40 Dose: 1 applic Documented by: Ferrous Sulfate (Ferrous Sulfate) 325 mg PO 1200,1700 COUNTS INCLUDE 234 BEDS AT THE [facility] Last Admin: 10/07/19 17:42 Dose: 325 mg Documented by: Glucagon () 1 mg IM .X1 PRN PRN Reason: Hypoglycemia Guaifenesin (Mucinex) 1,200 mg PO BID COUNTS INCLUDE 234 BEDS AT THE [facility] Last Admin: 10/08/19 08:40 Dose: 1,200 mg Documented by: Heparin Sodium (Porcine) (Heparin Na) 5,000 unit SC Q8 COUNTS INCLUDE 234 BEDS AT THE [facility] Last Admin: 10/08/19 05:10 Dose: 5,000 unit Documented by: Sodium Chloride () 250 mls @ 15 mls/hr IV .[id number] PRN PRN Reason: Saline Flush Last Infusion: 10/08/19 00:10 Dose: 0 mls/hr Documented by: Sodium Chloride () 250 mls @ 15 mls/hr IV .[id number] PRN PRN Reason: Additional IVPB Infusion Ceftriaxone Sodium 2 gm/ (Sodium Chloride) 50 mls @ 100 mls/hr IV Q24 DONNA Insulin Human Lispro (Humalog Kwikpen (Bkc)) 0 unit SC TIDAC COUNTS INCLUDE 234 BEDS AT THE [facility]; Protocol Last Admin: 10/08/19 10:47 Dose: Not Given Documented by: Multivitamins (Multivitamin) 1 tablet PO DAILYCM COUNTS INCLUDE 234 BEDS AT THE [facility] Last Admin: 10/08/19 08:40 Dose: 1 tablet Documented by: Nystatin (Mycostatin Powder) 1 applic TOPICAL BID COUNTS INCLUDE 234 BEDS AT THE [facility]; Protocol Last Admin: 10/08/19 10:27 Dose: 1 applicatio Documented by: Ondansetron HCl (Zofran) 4 mg IV Q8H PRN PRN PRN Reason: NAUSEA/VOMITING Sodium Chloride () 10 - 40 ml IV UD PRN PRN Reason: SALINE FLUSH Last Admin: 10/07/19 17:39 Dose: 10 ml Documented by: Medical Necessity - Tobacco Use Smoking Status: Never smoker Route of nutrition/ use of supplements: [] Nutritional Intake: [] IV Site: [] Hook Catheter: [] - Assessment/Plan Antibiotics: [] Assessment/Plan: [] Active and Suspected Problems (Last Reviewed 10/06/19 @ 17:[address] Guillermo Fuchs, DO) Cellulitis of left lower extremity (Acute) Septic shock (Acute) Septic shock (Acute) DEEPTI (acute kidney injury) (Acute) Low suspicion for covid, initial pcr was neg. Out of isolation. Septic shock with strep bacteremia. Suspect chronic lymphedema as source. No urinary symptoms, but UA did show 50-100 wbc. Narrow abx to ceftriaxone. Plan on discharge on po keflex 500mg bid for one more week. Echo showed no veg but limited quality study. Renal u/s showed no new sign of infection/obstruction. Will follow cx results after he leaves. Will follow
[2019-10-08] MEDS: Ferrous Sulfate 325 MG Tablet PO ×2 (12:39→17:58)
[2019-10-08 12:56] LABS: Bedside Glucose 108 mg/dL (70-110)
--- NOTE | 2019-10-08 13:17 | PN_ITS ---
<Bob Lugo - Last Filed: 10/08/19 13:17> Patient Problems: Active and Suspected Problems (Last Reviewed 10/06/19 @ 17:[address] Guillermo Fuchs DO) Bacteremia (Acute) Cellulitis of left lower extremity (Acute) Septic shock (Acute) Septic shock (Acute) DEEPTI (acute kidney injury) (Acute) Reason for Visit: sepsis Subjective: pt doing well. denies SOB/cough. Denies fever/chills. Denies pain or redness in legs. pt to obtain lymphedema pumps from home. He states he has had a heart murmur since he was a child. Vitals/I&O's: Vital Signs Temp Pulse Resp BP Pulse Ox 97.9 F 77 18 110/65 97 10/08/19 08:28 10/08/19 11:00 10/08/19 08:28 10/08/19 08:28 10/08/19 08:28 Oxygen Flow Rate (L/min) 2 Oxygen Delivery Method Room Air Weight: 317 lb 7.45 oz Body Mass Index (BMI) 44.5 Intake and Output for Last 24 Hours 10/06/19 10/07/19 10/08/19 23:59 23:59 23:59 Intake Total 5939.95 / 5939.95 1347.85 / 1347.85 1068 / 1068 Output Total 300 / 300 1200 / 1200 1125 / 1125 Balance 5639.95 / 5639.95 147.85 / 147.85 -57 / -57 General: Alert, Oriented x3, Cooperative HEENT: Atraumatic, PERRLA, EOMI, Normocephalic Neck: Supple, No JVD, Negative Carotid Bruits Lungs: Clear to auscultation, Normal air movement Cardiovascular: Regular rate, Murmur - 2/6 systolic murmur best at lsb Abdomen: Bowel Sounds Present, Soft, Non Tender Extremities: No edema, Capillary Refill Less than 3 Seconds Skin: No rashes, No breakdown Musculoskeletal: No Tenderness to Palpation of Joints or Extremities Neurological: Cranial nerves II-XII grossly intact Psych/Mental Status: Normal Affect, Appropriate Microbiology Past 72 Hours 10/06/19 20:45 Urine, Catheterized Urine Culture - Preliminary Culture exhibits no growth. 10/06/19 14:15 Blood Culture (Wb) - Anticubital Right Bacteria Detection (PCR) - Final Strep not Strep pneumo 10/06/19 14:15 Blood Culture (Wb) - Anticubital Right Blood Culture - Preliminary Streptococcus group G 10/06/19 14:25 Blood Culture (Wb) - Anticubital Left Blood Culture - Preliminary Streptococcus group G 10/06/19 20:45 Urine Catheter - Catheter Streptococcus pneumoniae Antigen (M - Final 10/06/19 20:45 Urine Catheter - Catheter Legionella Antigen - Final 10/06/19 14:30 Mucosa - Nasopharyngeal Coronavirus COVID-19 PCR - Final 10/06/19 14:35 Mucosa - Nose Respiratory Panel (PCR) - Final 10/06/19 14:35 Mucosa - Nose Influenza Types A,B Direct FA (LEORA) - Final Laboratory Results 10/07/19 16:08: POC Glucose 159 H 10/07/19 20:59: POC Glucose 161 H 10/08/19 05:22: WBC 11.3 H, RBC 2.69 L, Hgb 8.3 L, Hct 26.5 L, MCV 98.5 H, MCH 30.9, MCHC 31.3 L, RDW Std Deviation 54.6 H, RDW Coeff of Inocencio 15.1 H, Plt Count 115 L, MPV 12.2 H, Neut % (Auto) Not Reportable, Absolute Neuts (auto) 8.6 H, Absolute Lymphs (auto) 1.50, Total Counted 100, Neutrophils % (Manual) 76 H, Lymphocytes % (Manual) 13 L, Monocytes % (Manual) 5, Eosinophils % (Manual) 5, Plasma Cell % (Manual) 1, Diff Path Review Reviewed, Platelet Estimate ADEQUATE, RBC Morphology NORM C+C 10/08/19 05:22: Sodium 134 L, Potassium 3.9, Chloride 105, Carbon Dioxide 21.0, Anion Gap 8, BUN 78 H, Creatinine 2.91 H, Estim Creat Clear Calc 24.39, Est GFR (MDRD) Af Amer 28 L, Est GFR (MDRD) Non-Af 23 L, BUN/Creatinine Ratio 26.8 H, Glucose 125 H, Calcium 8.2 L 10/08/19 08:01: POC Glucose 104 10/08/19 10:45: POC Glucose 108 Current Medications Acetaminophen (Tylenol) 650 mg PO Q6H PRN PRN PRN Reason: Pain Score 1-10/Temp > 100.7 F Dextrose (D50w Syringe) 0 gm IV X1 PRN; Protocol PRN Reason: Hypoglycemia Emollient Ointment (Eucerin Intensive Repair) 1 applic TOPICAL DAILY [facility]; Protocol Last Admin: 10/08/19 08:40 Dose: 1 applic Documented by: Ferrous Sulfate (Ferrous Sulfate) 325 mg PO 1200,1700 [facility] Last Admin: 10/08/19 12:39 Dose: 325 mg Documented by: Glucagon () 1 mg IM .X1 PRN PRN Reason: Hypoglycemia Guaifenesin (Mucinex) 1,200 mg PO BID [facility] Last Admin: 10/08/19 08:40 Dose: 1,200 mg Documented by: Heparin Sodium (Porcine) (Heparin Na) 5,000 unit SC Q8 [facility] Last Admin: 10/08/19 05:10 Dose: 5,000 unit Documented by: Sodium Chloride () 250 mls @ 15 mls/hr IV .[id number] PRN PRN Reason: Saline Flush Last Infusion: 10/08/19 00:10 Dose: 0 mls/hr Documented by: Sodium Chloride () 250 mls @ 15 mls/hr IV .[id number] PRN PRN Reason: Additional IVPB Infusion Ceftriaxone Sodium 2 gm/ (Sodium Chloride) 50 mls @ 100 mls/hr IV Q24 [facility] Last Admin: 10/08/19 12:39 Dose: 100 mls/hr Documented by: Insulin Human Lispro (Humalog Kwikpen (Bkc)) 0 unit SC TIDAC [facility]; Protocol Last Admin: 10/08/19 10:47 Dose: Not Given Documented by: Multivitamins (Multivitamin) 1 tablet PO DAILYCM [facility] Last Admin: 10/08/19 08:40 Dose: 1 tablet Documented by: Nystatin (Mycostatin Powder) 1 applic TOPICAL BID [facility]; Protocol Last Admin: 10/08/19 10:27 Dose: 1 applicatio Documented by: Ondansetron HCl (Zofran) 4 mg IV Q8H PRN PRN PRN Reason: NAUSEA/VOMITING Sodium Chloride () 10 - 40 ml IV UD PRN PRN Reason: SALINE FLUSH Last Admin: 10/07/19 17:39 Dose: 10 ml Documented by: STROKE Vital Signs/Narrative: Vital Signs Pulse 10/08/19 11:00 77 Medical Necessity - Tobacco Use Smoking Status: Never smoker Assessment/Plan All Active Problems (Last Reviewed 10/06/19 @ 17:[address] Guillermo Fuchs DO) Bacteremia (Acute) Ulcer of right lower extremity with fat layer exposed (Resolved) Cellulitis of left lower extremity (Acute) Septic shock (Acute) Septic shock (Acute) DEEPTI (acute kidney injury) (Acute) Anemia (Acute) 1. Septic shock, bacteremia with group G strep presumed source lymphedema BL LE - continue rocephin. ID following. Repeat cx pending. shock resolved. Afeb today, WBC improved. TTE neg for veg. No janeway lesions/osler nodes/splinter hemorrghages. he states murmur is from childhood. 2. LE chronic wounds - these are doing well despite #1 - wound care will continue to follow. lymphedema pumps will be applied when obtained. f/u with wound care center as o/p. 3. DEEPTI on CKDIII - improving. Renal US with left renal cyst. medical renal dz. exophytic cyst present since prior US. Normal bladder. lasix held. max held. 4. Suspected HERNÁN, probably OHS - bipap continued. pulm following 5. HTN - stable 6. Chronic iron def anemia - continue po iron. 7. DMt2 with morbid obesity - continue SSI. environmental tech consult DVT ppx: heparin DC Planning: follow repeat cxs. This patient was seen by Bob Lugo PA-C under the supervision of Dr. Fuchs <Guillermo Fuchs - Last Filed: 10/08/19 13:37> Vitals/I&O's: Vital Signs Temp Pulse Resp BP Pulse Ox 36.6 C 77 18 110/65 97 10/08/19 08:28 10/08/19 11:00 10/08/19 08:28 10/08/19 08:28 10/08/19 08:28 Oxygen Flow Rate (L/min) 2 Oxygen Delivery Method Room Air Weight: 144 kg Body Mass Index (BMI) 44.5 Intake and Output for Last 24 Hours 10/06/19 10/07/19 10/08/19 23:59 23:59 23:59 Intake Total 5939.95 / 5939.95 1347.85 / 1347.85 1068 / 1068 Output Total 300 / 300 1200 / 1200 1125 / 1125 Balance 5639.95 / 5639.95 147.85 / 147.85 -57 / -57 General: Alert, Cooperative HEENT: Atraumatic, Normocephalic Lungs: Clear to auscultation, Normal air movement, No rhonchi, No wheeze Cardiovascular: Regular rate, Murmur Abdomen: Bowel Sounds Present, Soft, Non Tender Skin: No rashes, No breakdown Psych/Mental Status: Normal Affect, Appropriate Microbiology Past 72 Hours 10/06/19 14:15 Blood Culture (Wb) - Anticubital Right Bacteria Detection (PCR) - Final Strep not Strep pneumo 10/06/19 14:15 Blood Culture (Wb) - Anticubital Right Blood Culture - Final Streptococcus group G 10/06/19 20:45 Urine, Catheterized Urine Culture - Preliminary Culture exhibits no growth. 10/06/19 14:25 Blood Culture (Wb) - Anticubital Left Blood Culture - Preliminary Streptococcus group G 10/06/19 20:45 Urine Catheter - Catheter Streptococcus pneumoniae Antigen (M - Final 10/06/19 20:45 Urine Catheter - Catheter Legionella Antigen - Final 10/06/19 14:30 Mucosa - Nasopharyngeal Coronavirus COVID-19 PCR - Final 10/06/19 14:35 Mucosa - Nose Respiratory Panel (PCR) - Final 10/06/19 14:35 Mucosa - Nose Influenza Types A,B Direct FA (LEORA) - Final Laboratory Results 10/07/19 16:08: POC Glucose 159 H 10/07/19 20:59: POC Glucose 161 H 10/08/19 05:22: WBC 11.3 H, RBC 2.69 L, Hgb 8.3 L, Hct 26.5 L, MCV 98.5 H, MCH 30.9, MCHC 31.3 L, RDW Std Deviation 54.6 H, RDW Coeff of Inocencio 15.1 H, Plt Count 115 L, MPV 12.2 H, Neut % (Auto) Not Reportable, Absolute Neuts (auto) 8.6 H, Absolute Lymphs (auto) 1.50, Total Counted 100, Neutrophils % (Manual) 76 H, Lymphocytes % (Manual) 13 L, Monocytes % (Manual) 5, Eosinophils % (Manual) 5, Plasma Cell % (Manual) 1, Diff Path Review Reviewed, Platelet Estimate ADEQUATE, RBC Morphology NORM C+C 10/08/19 05:22: Sodium 134 L, Potassium 3.9, Chloride 105, Carbon Dioxide 21.0, Anion Gap 8, BUN 78 H, Creatinine 2.91 H, Estim Creat Clear Calc 24.39, Est GFR (MDRD) Af Amer 28 L, Est GFR (MDRD) Non-Af 23 L, BUN/Creatinine Ratio 26.8 H, Glucose 125 H, Calcium 8.2 L 10/08/19 08:01: POC Glucose 104 10/08/19 10:45: POC Glucose 108 Current Medications Acetaminophen (Tylenol) 650 mg PO Q6H PRN PRN PRN Reason: Pain Score 1-10/Temp > 100.7 F Dextrose (D50w Syringe) 0 gm IV X1 PRN; Protocol PRN Reason: Hypoglycemia Emollient Ointment (Eucerin Intensive Repair) 1 applic TOPICAL DAILY [facility]; Protocol Last Admin: 10/08/19 08:40 Dose: 1 applic Documented by: Ferrous Sulfate (Ferrous Sulfate) 325 mg PO 1200,1700 [facility] Last Admin: 10/08/19 12:39 Dose: 325 mg Documented by: Glucagon () 1 mg IM .X1 PRN PRN Reason: Hypoglycemia Guaifenesin (Mucinex) 1,200 mg PO BID [facility] Last Admin: 10/08/19 08:40 Dose: 1,200 mg Documented by: Heparin Sodium (Porcine) (Heparin Na) 5,000 unit SC Q8 [facility] Last Admin: 10/08/19 05:10 Dose: 5,000 unit Documented by: Sodium Chloride () 250 mls @ 15 mls/hr IV .[id number] PRN PRN Reason: Saline Flush Last Infusion: 10/08/19 00:10 Dose: 0 mls/hr Documented by: Sodium Chloride () 250 mls @ 15 mls/hr IV .[id number] PRN PRN Reason: Additional IVPB Infusion Ceftriaxone Sodium 2 gm/ (Sodium Chloride) 50 mls @ 100 mls/hr IV Q24 [facility] Last Admin: 10/08/19 12:39 Dose: 100 mls/hr Documented by: Insulin Human Lispro (Humalog Kwikpen (Bkc)) 0 unit SC TIDAC [facility]; Protocol Last Admin: 10/08/19 10:47 Dose: Not Given Documented by: Multivitamins (Multivitamin) 1 tablet PO DAILYCM [facility] Last Admin: 10/08/19 08:40 Dose: 1 tablet Documented by: Nystatin (Mycostatin Powder) 1 applic TOPICAL BID [facility]; Protocol Last Admin: 10/08/19 10:27 Dose: 1 applicatio Documented by: Ondansetron HCl (Zofran) 4 mg IV Q8H PRN PRN PRN Reason: NAUSEA/VOMITING Sodium Chloride () 10 - 40 ml IV UD PRN PRN Reason: SALINE FLUSH Last Admin: 10/07/19 17:39 Dose: 10 ml Documented by: STROKE Vital Signs/Narrative: Vital Signs Pulse 10/08/19 11:00 77 Assessment/Plan Patient seen and examined independently. Data reviewed. I agree with the above note by the physician marketing assistant retail division. 1. Septic shock: * resolved Developed shortly after arrival. Time of onset appears to be 1616 where his blood pressure was 75/54. * Received the 30 cc/kg bolus. No pressors needed. * I did discuss with the patient about the potential need for pressors and if needed that he may require a central line. Discussed the risks and benefits of a central IV catheter. He agrees to proceed if necessary. * Influenza negative * Follow-up on blood cultures, COVID-19 and respiratory panel. * Will also order urinalysis, urine culture, sputum culture, strep and Legionella antigens * Continue with broad-spectrum antibiotics with Pipracil and/tazobactam for now * Appears to be related to bacteremia. 2. Acute kidney injury: * Presumed ATN * Improving * Will hold his enalapril and furosemide. * Monitor 3. Bacteremia * Strep * suspect from LE * repeat BCx * may need TTE 4. Diabetes mellitus type 2: Diet controlled at home. Signed scale insulin for now as I do anticipate worsening glycemic control given the septic shock. 5. Lymphedema: Patient does have a history of ulcers on his legs that does appear to be improved. Consult wound care for further management. 6. Morbid obesity: Overall complicates care. 7. VTE prophylaxis: change to SQ heparin 8. Advanced care planning: Patient wishes to be full CODE STATUS. Inpatient E&M: [id number] Subs Hosp L2
--- NOTE | 2019-10-08 16:31 | NURSING ---
Updated sister on patient condition with verbal consent from patient.
[2019-10-08 17:11] LABS: Bedside Glucose 137 mg/dL (70-110)
[2019-10-08 22:15] LABS: Bedside Glucose 144 mg/dL (70-110)
--- NOTE | 2019-10-09 01:00 | CPS ---
pt says he's not tired right now, but will call if wants to go back on BiPAP.
[2019-10-09 02:45] VITALS: PULSE 82; RESP 12; RESP 21; O2SAT 98
[2019-10-09 02:52] VITALS: BP 142/80; PULSE 82; RESP 20; TEMP 36.7; O2SAT 100; O2SAT 35
[2019-10-09 03:46] VITALS: PULSE 79
[2019-10-09] MEDS: Heparin Injection (Vial) 5,000 UNIT/ML VIAL 5000 UNIT SC (05:35)
[2019-10-09 06:12] LABS: Absolute Lymphocyte Count 1.48 X10^3/uL (0.83-4.51); Basophil# 0.05 X10^3/uL; Basophil% 0.5 % (0-1); Eosinophil# 0.27 X10^3/uL; Eosinophils% 2.6 % (0-5); Hematocrit 28.3 % (40-54); Hemoglobin 8.9 g/dL (13.0-16.5); Lymphocyte # 1.48 X10^3/ul (4.0); Lymphocyte % 14.4 % (19-41); Mean Corp Hgb Conc 31.4 g/dL (32-36); Mean Corpuscular Volume 98.6 fL (80-94); Mean Platelet Vol. 12.7 fl (6.2-12.0); Monocyte# 0.98 X10^3/uL; Monocyte% 9.6 % (0-10); NRBC Flagged by Analyzer 0 % (0-5); Neutrophil # 6.99 X10^3/uL (2.7-7.7); Neutrophil % 68.1 % (47-70); Platelet Count 130 K/mm3 (150-450); RBC Distribution Width CV 15.2 % (11.6-14.6); RBC Distribution Width SD 55.2 fl (35.1-43.9); Red Blood Count 2.87 M/mm3 (4.6-6.2); White Blood Count 10.3 K/mm3 (4.4-11.0)
[2019-10-09 06:46] LABS: Bedside Glucose 116 mg/dL (70-110)
[2019-10-09 06:55] VITALS: O2SAT 97
[2019-10-09 07:01] LABS: Anion Gap 10 (5-15); BUN 77 mg/dL (7-18); BUN/Creat Ratio 26.2 RATIO (10-20); Calcium,Total 8.4 mg/dL (8.5-10.1); Chloride 108 mmol/L (98-107); Creatinine, Serum 2.94 mg/dL (0.70-1.30); EST Glomerular Filtration Rate 23 mL/min (>60); Est Glom Filt Rate - Afr Amer 27 mL/min (>60); Estimated Creatinine Clearance 24.14 ml/min; Glucose 117 mg/dL (74-106); Potassium 4.1 mmol/L (3.5-5.1); Sodium Level 137 mmol/L (136-145)
[2019-10-09 07:02] VITALS: PULSE 76
--- NOTE | 2019-10-09 08:12 | PN_ITS ---
Patient Problems: Active and Suspected Problems (Last Reviewed 10/06/19 @ 17:[address] Guillermo Fuchs, DO) Bacteremia (Acute) Cellulitis of left lower extremity (Acute) Septic shock (Acute) Septic shock (Acute) DEEPTI (acute kidney injury) (Acute) Subjective: Patient did well overnight. Patient states he feels back to his baseline at this time. Patient is denying any chest pain was able to get to the chair without difficulty per his report. Patient did wear BiPAP briefly overnight, but feels he can be more compliant when he gets the right settings. - Physical Exam Vitals/I&O's: Vital Signs Temp Pulse Resp BP Pulse Ox 36.7 C 76 20 H 142/80 H 97 10/09/19 02:52 10/09/19 07:02 10/09/19 02:52 10/09/19 02:52 10/09/19 06:55 Oxygen Flow Rate (L/min) 2 Oxygen Delivery Method Room Air Weight: 141.6 kg Body Mass Index (BMI) 44.5 Intake and Output for Last 24 Hours 10/07/19 10/08/19 10/09/19 23:59 23:59 23:59 Intake Total 1347.85 / 1347.85 2063.75 / 2063.75 Output Total 1200 / 1200 2175 / 2175 1250 / 1250 Balance 147.85 / 147.85 -111.25 / -111.25 -1250 / -1250 General: Alert, Oriented x3, Cooperative, No apparent distress, - - Morbidly obese. Speaking in full sentences. HEENT: Atraumatic, PERRLA, EOMI, Normocephalic, - - No scleral icterus or injection noted Oral: Moist Mucosa, No Gingival or Mucosal Lesions/ Ulcerations Neck: Supple, No JVD, No Nodes, Trachea Midline Lungs: No rhonchi, No wheeze, No rales, Diminished Cardiovascular: Regular rate, Regular Rhythm, Normal S1, Normal S2, No murmurs, No rub noted, No Gallop Abdomen: Bowel Sounds Present, Soft, Non Tender, Non-Distended, Obese Extremities: No clubbing, No cyanosis, Edema Skin: - - No change compared to previous Musculoskeletal: No Tenderness to Palpation of Joints or Extremities Lymphatic: No Cervical, Supraclavicular, or Inguinal Adenopathy Neurological: Cranial nerves II-XII grossly intact, Neuro grossly intact, Motor Exam 5/5 strength throughout Psych/Mental Status: Alert and oriented to time, place, person, mood and affect Microbiology Past 72 Hours 10/06/19 20:45 Urine, Catheterized Urine Culture - Final Culture exhibits no growth. 10/06/19 14:25 Blood Culture (Wb) - Anticubital Left Blood Culture - Final Streptococcus group G 10/06/19 14:15 Blood Culture (Wb) - Anticubital Right Bacteria Detection (PCR) - Final Strep not Strep pneumo 10/06/19 14:15 Blood Culture (Wb) - Anticubital Right Blood Culture - Final Streptococcus group G 10/06/19 20:45 Urine Catheter - Catheter Streptococcus pneumoniae Antigen (M - Final 10/06/19 20:45 Urine Catheter - Catheter Legionella Antigen - Final 10/06/19 14:30 Mucosa - Nasopharyngeal Coronavirus COVID-19 PCR - Final 10/06/19 14:35 Mucosa - Nose Respiratory Panel (PCR) - Final 10/06/19 14:35 Mucosa - Nose Influenza Types A,B Direct FA (LEORA) - Final Laboratory Results 10/08/19 05:22: Diff Path Review Reviewed 10/08/19 08:01: POC Glucose 104 10/08/19 10:45: POC Glucose 108 10/08/19 17:04: POC Glucose 137 H 10/08/19 22:04: POC Glucose 144 H 10/09/19 05:33: WBC 10.3, RBC 2.87 L, Hgb 8.9 L, Hct 28.3 L, MCV 98.6 H, MCH 31.0, MCHC 31.4 L, RDW Std Deviation 55.2 H, RDW Coeff of Inocencio 15.2 H, Plt Count 130 L, MPV 12.7 H, Immature Gran % (Auto) 4.800 H, Neut % (Auto) 68.1, Lymph % (Auto) 14.4 L, [place] % (Auto) 9.6, Eos % (Auto) 2.6, Baso % (Auto) 0.5, Absolute Neuts (auto) 7.0, Absolute Lymphs (auto) 1.48, Nucleated RBC % 0 10/09/19 05:33: Sodium 137, Potassium 4.1, Chloride 108 H, Carbon Dioxide 19.0 L , Anion Gap 10, BUN 77 H, Creatinine 2.94 H, Estim Creat Clear Calc 24.14, Est GFR (MDRD) Af Amer 27 L, Est GFR (MDRD) Non-Af 23 L, BUN/Creatinine Ratio 26.2 H , Glucose 117 H, Calcium 8.4 L 10/09/19 06:33: POC Glucose 116 H Current Medications Acetaminophen (Tylenol) 650 mg PO Q6H PRN PRN PRN Reason: Pain Score 1-10/Temp > 100.7 F Dextrose (D50w Syringe) 0 gm IV X1 PRN; Protocol PRN Reason: Hypoglycemia Emollient Ointment (Eucerin Intensive Repair) 1 applic TOPICAL DAILY [facility]; Protocol Last Admin: 10/08/19 08:40 Dose: 1 applic Documented by: Ferrous Sulfate (Ferrous Sulfate) 325 mg PO 1200,1700 [facility] Last Admin: 10/08/19 17:58 Dose: 325 mg Documented by: Glucagon () 1 mg IM .X1 PRN PRN Reason: Hypoglycemia Guaifenesin (Mucinex) 1,200 mg PO BID [facility] Last Admin: 10/08/19 20:37 Dose: 1,200 mg Documented by: Heparin Sodium (Porcine) (Heparin Na) 5,000 unit SC Q8 [facility] Last Admin: 10/09/19 05:35 Dose: 5,000 unit Documented by: Sodium Chloride () 250 mls @ 15 mls/hr IV .[id number] PRN PRN Reason: Saline Flush Last Infusion: 10/08/19 20:53 Dose: 0 mls/hr Documented by: Sodium Chloride () 250 mls @ 15 mls/hr IV .[id number] PRN PRN Reason: Additional IVPB Infusion Ceftriaxone Sodium 2 gm/ (Sodium Chloride) 50 mls @ 100 mls/hr IV Q24 [facility] Last Infusion: 10/08/19 13:10 Dose: Infused Documented by: Insulin Human Lispro (Humalog Kwikpen (Bkc)) 0 unit SC TIDAC [facility]; Protocol Last Admin: 10/09/19 06:35 Dose: Not Given Documented by: Multivitamins (Multivitamin) 1 tablet PO DAILYCM [facility] Last Admin: 10/08/19 08:40 Dose: 1 tablet Documented by: Nystatin (Mycostatin Powder) 1 applic TOPICAL BID [facility]; Protocol Last Admin: 10/08/19 20:37 Dose: 1 applicatio Documented by: Ondansetron HCl (Zofran) 4 mg IV Q8H PRN PRN PRN Reason: NAUSEA/VOMITING Sodium Chloride () 10 - 40 ml IV UD PRN PRN Reason: SALINE FLUSH Last Admin: 10/07/19 17:39 Dose: 10 ml Documented by: Medical Necessity - Tobacco Use Smoking Status: Never smoker Assessment/Plan All Active Problems (Last Reviewed 10/06/19 @ 17:[address] Guillermo Fuchs, DO) Bacteremia (Acute) Ulcer of right lower extremity with fat layer exposed (Resolved) Cellulitis of left lower extremity (Acute) Septic shock (Acute) Septic shock (Acute) DEEPTI (acute kidney injury) (Acute) Anemia (Acute) RECOMMENDATIONS: 1. Continue antibiotics per infectious disease 2. Monitor renal function. Possible consult to Dr. Mcleod (primary flight engineer) if not improving 3. Walking oximetry prior to discharge 4. Call pulmonary office for nurse practitioner visit for sleep apnea. PSG as an outpatient 5. Patient should use whenever oxygen is required for ambulation with sleep until PSG can be completed IMPRESSIONS: 1. Septic shock secondary to probable cellulitis with group G Streptococcus Extensive work-up from a viral standpoint has been negative thus far. Patient does have group G Streptococcus growing in his blood. Patient's lower extremities are not overly impressive. If repeat blood culture is positive for group G streptococcus, patient may require a AMPARO for evaluation of endocarditis. Patient does appear to be responding to antibiotics and volume resuscitation. Will defer to infectious disease on antibiotic course 2. Acute on chronic kidney disease stage III Patient presented hypotensive and is on Lasix and an PHUC inhibitor at baseline. Clinical suspicion for prerenal etiology. Blood pressure continues to improve. Patient is reporting good urine output. Patient should follow-up with nephrology as an outpatient. No indication for renal replacement therapy at this time. 3. Lymphedema/morbid obesity/probable HERNÁN/advanced age Complicates care, management, recovery and prognosis. Patient desaturating with sleep, likely secondary to baseline obstructive sleep apnea. This will have to be addressed as an outpatient. Patient can call pulmonary office to see nurse practitioner to arrange sleep study. Inpatient E&M: [id number] [facility] Hosp L2
[2019-10-09 08:45] VITALS: BP 112/73; PULSE 76; RESP 18; TEMP 36.7; O2SAT 99
[2019-10-09] MEDS: guaiFENesin 1,200 MG Tablet 1200 MG PO (08:46)
[2019-10-09] MEDS: Multivitamins,Therapeutic Tablet 1 TABLET PO (08:46)
[2019-10-09] MEDS: Nystatin Powder 15gm Bottle 1 APPLIC TOPICAL (08:46)
[2019-10-09] MEDS: 0.9% Saline Lock 10 ML Syringe IV (09:00)
[2019-10-09] MEDS: Ferrous Sulfate 325 MG Tablet PO (12:23)
--- NOTE | 2019-10-09 12:30 | DCINST_ITS ---
- Discharge Diagnoses Current Active Problems: Current Active and Chronic Problems (Last Reviewed 10/06/19 @ 17:[address] Guillermo Fuchs DO) Bacteremia (Acute) Cellulitis of left lower extremity (Acute) Septic shock (Acute) Septic shock (Acute) DEEPTI (acute kidney injury) (Acute) You will use the following diet at home:: Calorie/Carbohydrate Controlled (specify 1200, 1400, etc) - 1800 alana / day, Cardiac Your food should be the consistency of: Regular Your liquids should be the consistency of: Regular/Thin Discharge Activity: Return to Normal Activity Additional Instructions: You will need a BMP (lab) test in one week. You will need to call your PCP or [facility] to arrange this. Allergies/Adverse Reactions: Allergies No Known Allergies Allergy (Verified 10/06/19 13:29) Medications to take at Discharge Ascorbic Acid [Vitamin C] 500 mg PO DAILY@0800 03/08/17 Carvedilol [Coreg (Beta [address])] 6.25 mg PO BID 03/08/17 Magnesium 500 mg PO DAILY 03/08/17 allopurinol 300 mg tablet 300 mg PO DAILY 08/23/19 cholecalciferol (vitamin D3) 125 mcg (5,000 unit) capsule 125 mcg PO DAILY 08/23/19 ferrous sulfate 325 mg (65 mg iron) tablet 325 mg PO BID 08/23/19 cyanocobalamin (vitamin B-12) 1,000 mcg capsule 1,000 mcg PO DAILY 08/24/19 omega-3 fatty acids 1,000 mg capsule 1,000 mg PO DAILY 08/24/19 Multivitamin with Minerals [Multiple Vitamin] 1 tab PO DAILY 10/06/19 Simvastatin 40 mg PO QHS 10/06/19 Cephalexin [Keflex] 500 mg PO BID #14 cap 10/09/19 The following prescriptions were given: Cephalexin [Keflex] 500 mg PO BID #14 cap Transmission Status: Pending to [facility]/pharmacy #[id number] Primary Care Physician: Han Adrian MD [Primary Care Provider] - Please follow up with your Primary Care Physician in: 1-2 weeks Test Results: Test results from this visit will be discussed in further detail at your follow- up appointment, if applicable. Please Follow Up With: Shirley Hill NP-C When: 2 weeks Please Follow Up With: Ynes Mcleod DO - call friday to set up appointment When: 1-2 weeks Proposed Discharge Date: 10/09/19
--- NOTE | 2019-10-09 12:51 | PCA ---
Faxed discharge paperwork to Maribell at [facility], , and spoke with Cj at [facility], to notify them of discharge. She stated that she will page the on-call RN Leida and let her know.
--- NOTE | 2019-10-09 15:17 | DS.PCM_ITS ---
<Bob Lugo - Last Filed: 10/09/19 15:17> Discharge Date and Diagnosis - Problem List Patient Problems: Active and Suspected Problems (Last Reviewed 10/06/19 @ 17:[address] Guillermo Fuchs DO) Bacteremia (Acute) Date of Admission: 10/06/19 Date of Discharge: 10/09/19 - Primary Discharge Diagnosis Acute Problems: Active Problems (Last Reviewed 10/06/19 @ 17:[address] Guillermo Fuchs DO) Septic Shock, Bacteremia 2/2 group G strep, due to chronic lymphedema DEEPTI on CKDIII 2/2 sepsis Suspected HERNÁN DMt2 with morbid obesity HTN Chronic iron def anemia - Secondary Discharge Diagnosis Chronic Problems: Chronic Problems (Last Reviewed 10/06/19 @ 17:[address] Guillermo Fuchs DO) Ulcer of left lower extremity with fat layer exposed (Chronic) Lymphedema of both lower extremities (Chronic) Ulcer of left foot (Chronic) Cardiac murmur (Chronic) Stage 2 chronic kidney disease (Chronic) Essential hypertension (Chronic) Gout (Chronic) Type 2 diabetes mellitus (Chronic) Iron deficiency anemia (Chronic) Hyperlipidemia (Chronic) Hospital Course and Treatment Imaging Results: RAD/Chest 1 View (Portable) IMPRESSION: Vascular congestion and mild degree of CHF. Echo: Interpretation Summary The estimated ejection fraction is 60 %. Diastolic function is indeterminate. Mildly dilated right ventricle. Moderate aortic stenosis. The left atrium is moderately enlarged. The right atrium is mildly enlarged. The study was technically difficult. Contrast injection was performed. Renal US: US/Kidney and Bladder IMPRESSION: 1. Minimally increased renal cortical echogenicity. Question medical renal disease. 2. Prominent bilateral kidneys unchanged in size from prior study. 3. Left renal cyst. 4. Fluid density area adjacent to the left kidney this is consistent with a larger exophytic cyst off the upper pole noted on the prior ultrasound. 5. Normal urinary bladder. Consultations 10/06/19 17:25 Consult: Onc/Wound/cardiovascular radiologic technologist Routine Comment: Infectious disease: Eris Moya Care: Shailesh Operations: None Procedures: 2-D Echocardiogram Summary of Care Provided: Hospital course: The patient is a 69 year old M with pmhx notable for lymphedema with resolved LE chronic wounds, DMt2 with morbid obesity, who presented to the ER with c/o shortness of breath and nasal congestion. progressively worsening for 3 days. He was found to be hypotensive, with DEEPTI, elevated WBCs, abnormal LFTs, low platelets, negative lactate, with fever, tachycardia, and tachypnea. He did not have an obvious source of infection. CXR showed vascular congestion and mild CHF. He was given aggressive IV fluids and started on Vanc and zosyn for septic shock. Nephrotoxins were held. He was admitted to the ICU. He did not require pressors. He was evaluated by pulm who placed him on nightly bipap for suspected HERNÁN. Infectious disease was consulted. His blood cultures grew Group G Strep. Resp panel, covid19, urine antigens, urine culture were all negative. He was transitioned to zosyn. Renal US showed medical renal dz. Echocardiogram showed EF 60%, moderate , no vegetation. He was transitioned to po keflex per recommendation of ID. Renal function stabilized. He had good urinary output. His BP remained stable off lasix and enalapril. He will not continue these at [facility]. He was discharged home with home health care in stable condition. He will need a BMP in 1 week. He will need follow up with nephrology in 1-2 weeks. He will need Follow up with pulm in 2 weeks. He will need to see his PCP in 1-2 weeks. This patient was seen by Bob Lugo PA-C under the supervision of Doctor Fuchs. [] Patient Problems: Active and Suspected Problems (Last Reviewed 10/06/19 @ 17:[address] Guillermo Fuchs, DO) Bacteremia (Acute) - Physical Exam Vitals/I&O's: Vital Signs Temp Pulse Resp BP Pulse Ox 98.1 F 76 18 112/73 99 10/09/19 08:45 10/09/19 08:45 10/09/19 08:45 10/09/19 08:45 10/09/19 08:45 Oxygen Flow Rate (L/min) 2 Oxygen Delivery Method Room Air Weight: 312 lb 2.793 oz Body Mass Index (BMI) 44.5 Intake and Output for Last 24 Hours 10/07/19 10/08/19 10/09/19 23:59 23:59 23:59 Intake Total 1347.85 / 1347.85 2063.75 / 2063.75 290.00 / 290.00 Output Total 1200 / 1200 2175 / 2175 2049 Balance 147.85 / 147.85 -111.25 / -111.25 -1760.00 / -1760.00 General: Alert, Oriented x3, Cooperative HEENT: Atraumatic, PERRLA, EOMI, Normocephalic Neck: Supple, No JVD, Negative Carotid Bruits Lungs: Clear to auscultation, Normal air movement Cardiovascular: Regular rate, No murmurs Abdomen: Bowel Sounds Present, Soft, Non Tender, Obese Extremities: Capillary Refill Less than 3 Seconds, Edema - lymphedema unchanged Skin: No rashes, No breakdown Musculoskeletal: No Tenderness to Palpation of Joints or Extremities Neurological: Cranial nerves II-XII grossly intact Psych/Mental Status: Normal Affect, Appropriate, Alert and oriented to time, place, person, mood and affect Microbiology Past 72 Hours 10/07/19 14:30 Blood Culture (Wb) - Anticubital Right Blood Culture - Preliminary No growth in 48 hours. 10/06/19 20:45 Urine, Catheterized Urine Culture - Final Culture exhibits no growth. 10/06/19 14:25 Blood Culture (Wb) - Anticubital Left Blood Culture - Final Streptococcus group G 10/06/19 14:15 Blood Culture (Wb) - Anticubital Right Bacteria Detection (PCR) - Final Strep not Strep pneumo 10/06/19 14:15 Blood Culture (Wb) - Anticubital Right Blood Culture - Final Streptococcus group G 10/06/19 20:45 Urine Catheter - Catheter Streptococcus pneumoniae Antigen (M - Final 10/06/19 20:45 Urine Catheter - Catheter Legionella Antigen - Final 10/06/19 14:30 Mucosa - Nasopharyngeal Coronavirus COVID-19 PCR - Final 10/06/19 14:35 Mucosa - Nose Respiratory Panel (PCR) - Final 10/06/19 14:35 Mucosa - Nose Influenza Types A,B Direct FA (LEORA) - Final Laboratory Results 10/08/19 17:04: POC Glucose 137 H 10/08/19 22:04: POC Glucose 144 H 10/09/19 05:33: WBC 10.3, RBC 2.87 L, Hgb 8.9 L, Hct 28.3 L, MCV 98.6 H, MCH 31.0, MCHC 31.4 L, RDW Std Deviation 55.2 H, RDW Coeff of Inocencio 15.2 H, Plt Count 130 L, MPV 12.7 H, Immature Gran % (Auto) 4.800 H, Neut % (Auto) 68.1, Lymph % (Auto) 14.4 L, [place] % (Auto) 9.6, Eos % (Auto) 2.6, Baso % (Auto) 0.5, Absolute Neuts (auto) 7.0, Absolute Lymphs (auto) 1.48, Nucleated RBC % 0 10/09/19 05:33: Sodium 137, Potassium 4.1, Chloride 108 H, Carbon Dioxide 19.0 L , Anion Gap 10, BUN 77 H, Creatinine 2.94 H, Estim Creat Clear Calc 24.14, Est GFR (MDRD) Af Amer 27 L, Est GFR (MDRD) Non-Af 23 L, BUN/Creatinine Ratio 26.2 H , Glucose 117 H, Calcium 8.4 L 10/09/19 06:33: POC Glucose 116 H Discharge Diet: Low fat/ Low Cholesterol, 1800 Calorie Control Diet, 2000 mg Sodium Diet Discharge Activity: Return to Normal Activity Home Medications: Medications to take at Discharge Ascorbic Acid [Vitamin C] 500 mg PO DAILY@0800 03/08/17 Carvedilol [Coreg (Beta [address])] 6.25 mg PO BID 03/08/17 Magnesium 500 mg PO DAILY 03/08/17 allopurinol 300 mg tablet 300 mg PO DAILY 08/23/19 cholecalciferol (vitamin D3) 125 mcg (5,000 unit) capsule 125 mcg PO DAILY 08/23/19 ferrous sulfate 325 mg (65 mg iron) tablet 325 mg PO BID 08/23/19 cyanocobalamin (vitamin B-12) 1,000 mcg capsule 1,000 mcg PO DAILY 08/24/19 omega-3 fatty acids 1,000 mg capsule 1,000 mg PO DAILY 08/24/19 Multivitamin with Minerals [Multiple Vitamin] 1 tab PO DAILY 10/06/19 Simvastatin 40 mg PO QHS 10/06/19 Cephalexin [Keflex] 500 mg PO BID #14 cap 10/09/19 Following Prescrptions Were Given to Patient: Cephalexin [Keflex] 500 mg PO BID #14 cap Transmission Status: Received by [facility]/pharmacy #[id number] Primary Care Physician: Bursley,Han, MD [Primary Care Provider] - Please follow up with your Primary Care Physician in: 1-2 weeks Please Follow Up With: Shirley Hill NP-C When: 2 weeks Please Follow Up With: Ynes Mcleod DO - call friday to set up appointment When: 1-2 weeks Disposition: Home with Home Health Minutes spent on discharge:: 35 Patient Condition:: Stable Medical Necessity - Tobacco Use Smoking Status: Never smoker Meaningful Use Info Meaningful Use Diagnoses (Choose all that apply): None applicable <Guillermo Fuchs - Last Filed: 10/09/19 15:39> Discharge Date and Diagnosis - Primary Discharge Diagnosis Acute Problems: Active Problems (Last Reviewed 10/06/19 @ 17:[address] Guillermo Fuchs DO) Bacteremia (Acute) - Secondary Discharge Diagnosis Chronic Problems: Chronic Problems (Last Reviewed 10/06/19 @ 17:[address] Guillermo Fuchs DO) Ulcer of left lower extremity with fat layer exposed (Chronic) Lymphedema of both lower extremities (Chronic) Ulcer of left foot (Chronic) Cardiac murmur (Chronic) Stage 2 chronic kidney disease (Chronic) Essential hypertension (Chronic) Gout (Chronic) Type 2 diabetes mellitus (Chronic) Iron deficiency anemia (Chronic) Hyperlipidemia (Chronic) Hospital Course and Treatment Consultations 10/06/19 17:25 Consult: Onc/Wound/cardiovascular radiologic technologist Routine Comment: Operations: None Procedures: 2-D Echocardiogram Summary of Care Provided: Patient seen and examined independently. Data reviewed. I agree with the above note by the physician produce assistant. The patient is a 69 year old M presents with septic shock. Patient did receive IV fluids and did become normotensive subsequently. Patient was checked for COVID-19 which was negative. Blood culture did come back showing Streptococcus. Streptococcus felt to be related with his chronic lower extremity scales. Patient has had a history of ulcers but those appear to be healed over. Patient had repeat cultures that were negative. Patient was seen in consultation by critical care medicine as well as infectious disease. Given the patient's hypotension as well as acute kidney injury sustained, is recommended that you hold off on his PHUC inhibitor as well as furosemide. Saw the patient's acute kidney injury is likely related with some ischemic ATN that he sustained with the septic shock and hypotension. His creatinine has slowly improved but not back to his baseline yet. Patient would be discharged with cephalexin. Patient will follow-up with his primary care provider as to when and if the PHUC inhibitor or furosemide could be resumed. Patient continued to follow-up with wound care as well is appears that his legs are doing very well from that perspective. [] - Physical Exam Vitals/I&O's: Vital Signs Temp Pulse Resp BP Pulse Ox 36.7 C 76 18 112/73 99 10/09/19 08:45 10/09/19 08:45 10/09/19 08:45 10/09/19 08:45 10/09/19 08:45 Oxygen Flow Rate (L/min) 2 Oxygen Delivery Method Room Air Weight: 141.6 kg Body Mass Index (BMI) 44.5 Intake and Output for Last 24 Hours 10/07/19 10/08/19 10/09/19 23:59 23:59 23:59 Intake Total 1347.85 / 1347.85 2063.75 / 2063.75 290.00 / 290.00 Output Total 1200 / 1200 2175 / 2175 2049 / 2049 Balance 147.85 / 147.85 -111.25 / -111.25 -1760.00 / -1760.00 General: Alert, Cooperative HEENT: Atraumatic, Normocephalic Neck: No Nodes, Thyroid Normal Size and Texture Lungs: Clear to auscultation, Normal air movement, No rhonchi, No wheeze Cardiovascular: Regular rate, No murmurs Abdomen: Bowel Sounds Present, Soft, Non Tender Extremities: Capillary Refill Less than 3 Seconds, Edema Skin: No rashes, No breakdown Psych/Mental Status: Normal Affect, Appropriate Microbiology Past 72 Hours 10/07/19 14:30 Blood Culture (Wb) - Anticubital Right Blood Culture - Preliminary No growth in 48 hours. 10/06/19 20:45 Urine, Catheterized Urine Culture - Final Culture exhibits no growth. 10/06/19 14:25 Blood Culture (Wb) - Anticubital Left Blood Culture - Final Streptococcus group G 10/06/19 14:15 Blood Culture (Wb) - Anticubital Right Bacteria Detection (PCR) - Final Strep not Strep pneumo 10/06/19 14:15 Blood Culture (Wb) - Anticubital Right Blood Culture - Final Streptococcus group G 10/06/19 20:45 Urine Catheter - Catheter Streptococcus pneumoniae Antigen (M - Final 10/06/19 20:45 Urine Catheter - Catheter Legionella Antigen - Final 10/06/19 14:30 Mucosa - Nasopharyngeal Coronavirus COVID-19 PCR - Final 10/06/19 14:35 Mucosa - Nose Respiratory Panel (PCR) - Final 10/06/19 14:35 Mucosa - Nose Influenza Types A,B Direct FA (LEORA) - Final Laboratory Results 10/08/19 17:04: POC Glucose 137 H 10/08/19 22:04: POC Glucose 144 H 10/09/19 05:33: WBC 10.3, RBC 2.87 L, Hgb 8.9 L, Hct 28.3 L, MCV 98.6 H, MCH 31.0, MCHC 31.4 L, RDW Std Deviation 55.2 H, RDW Coeff of Inocencio 15.2 H, Plt Count 130 L, MPV 12.7 H, Immature Gran % (Auto) 4.800 H, Neut % (Auto) 68.1, Lymph % (Auto) 14.4 L, [place] % (Auto) 9.6, Eos % (Auto) 2.6, Baso % (Auto) 0.5, Absolute Neuts (auto) 7.0, Absolute Lymphs (auto) 1.48, Nucleated RBC % 0 10/09/19 05:33: Sodium 137, Potassium 4.1, Chloride 108 H, Carbon Dioxide 19.0 L , Anion Gap 10, BUN 77 H, Creatinine 2.94 H, Estim Creat Clear Calc 24.14, Est GFR (MDRD) Af Amer 27 L, Est GFR (MDRD) Non-Af 23 L, BUN/Creatinine Ratio 26.2 H , Glucose 117 H, Calcium 8.4 L 10/09/19 06:33: POC Glucose 116 H Discharge Diet: Low fat/ Low Cholesterol, 1800 Calorie Control Diet, 2000 mg Sodium Diet Discharge Activity: Return to Normal Activity Disposition: Home with Home Health Minutes spent on discharge:: 35 Patient Condition:: Stable Medical Necessity - Tobacco Use Smoking Status: Never smoker Inpatient E&M: [id number] Disch Hosp
--- NOTE | 2019-10-11 14:38 | CASEMGMT ---
OSMAR ARAMBULA Discharge Follow-up Phone Call: VIOLETA: Juan Pablo Strata: 3 Call Date: 10/11/2019 Discharge Date: 10/09/2019 Time of Call: 1440 Duration: 5 min Admitting Diagnosis: septic shock OSMAR ARAMBULA completed follow-up phone call after recent hospitalization. Patient states he is doing well just tired. Patient had no questions or concerns regarding discharge instructions. Patient fill prescription without any issues. Patient has follow-up appts scheduled. Patient states everything was great at [facility]. Patient had no further questions or concerns.
== END 2019-10-09 13:41 | disposition home or self-care (01) | DRG 871 ==
LOC: ED 16:44 → ICU 16:52 → PCU 10-07 15:37
PROVIDERS: Internal Medicine Critical Care Medicine; Physician Assistant; Emergency Provider Emergency Medicine; PCP Family Medicine
DX: A40.8 Other streptococcal sepsis (principal); R65.21 Severe sepsis with septic shock; N17.0 Acute kidney failure with tubular necrosis; Z68.41 Body mass index [BMI] 40.0-44.9, adult; L03.116 Cellulitis of left lower limb; I89.0 Lymphedema, not elsewhere classified; I12.9 Hypertensive chronic kidney disease with stage 1 through stage 4 chronic kidney disease, or unspecified chronic kidney disease; N18.3 Chronic kidney disease, stage 3 (moderate); E11.22 Type 2 diabetes mellitus with diabetic chronic kidney disease; D50.9 Iron deficiency anemia, unspecified; G47.33 Obstructive sleep apnea (adult) (pediatric); E11.621 Type 2 diabetes mellitus with foot ulcer; L97.522 Non-pressure chronic ulcer of other part of left foot with fat layer exposed; R01.1 Cardiac murmur, unspecified; E78.5 Hyperlipidemia, unspecified; E66.01 Morbid (severe) obesity due to excess calories; M1A.9XX0 Chronic gout, unspecified, without tophus (tophi); D69.6 Thrombocytopenia, unspecified; Z79.899 Other long term (current) drug therapy
CPT/HCPCS: 36415; 71045; 76770; 80048; 80053; 81001; 82550; 82962; 83605; 83615; 84145; 84484; 85025; 85379; 85384; 85610; 85730; 86140; 87040; 87077; 87086; 87149; 87186; 87449; 87633; 87635; 87641; 87804; 93005; 93306; 94002; 94003; 94660; 96360; 97110; 97162; 97166; 97530; 99285; J7030; J7040; J7050; Q9957; A4216; C8929; J0696; U0004

== ENCOUNTER → 2019-10-14 09:31 | Outpatient (CLI) | payer MEDICARE, OTHER, SELFPAY ==
[2019-10-06 17:16] VITALS: BMI 44.5
[2019-10-14 10:52] LABS: Albumin, Serum 2.1 g/dL (3.2-5.0); BUN 40 mg/dL (7-18); BUN/Creat Ratio 18.7 RATIO (10-20); Calcium,Total 8.5 mg/dL (8.5-10.1); Chloride 111 mmol/L (98-107); Creatinine, Serum 2.14 mg/dL (0.70-1.30); EST Glomerular Filtration Rate 33 mL/min (>60); Est Glom Filt Rate - Afr Amer 39 mL/min (>60); Glucose 110 mg/dL (74-106); Phosphorus 3.9 mg/dL (2.5-4.9); Potassium 3.7 mmol/L (3.5-5.1); Sodium Level 140 mmol/L (136-145)
== END ==
PROVIDERS: PCP Family Medicine; Referring Provider Internal Medicine Nephrology; Visit Provider Internal Medicine Nephrology
DX: N18.3 Chronic kidney disease, stage 3 (moderate) (principal)
CPT/HCPCS: 36415; 80069

== ENCOUNTER 2019-10-28 10:30 | Outpatient (RCR) | payer MEDICARE, OTHER, SELFPAY ==
[2019-10-06 17:16] VITALS: BMI 44.5
[2019-10-11 00:23] VITALS: BP 124/64; PULSE 74; RESP 22; TEMP 36.8
[2019-10-14 10:32] VITALS: BP 132/57; PULSE 82; RESP 22; TEMP 36.7; BMI 44.5
--- NOTE | 2019-10-14 11:25 | PN.PCM_ITS ---
(1) Lymphedema of both lower extremities Status: Chronic Current Visit: Yes Code(s): I89.0 - Lymphedema, not elsewhere classified (2) Type 2 diabetes mellitus Status: Chronic Current Visit: Yes Code(s): E11.9 - Type 2 diabetes mellitus without complications (3) Ulcer of left lower extremity with fat layer exposed Status: Chronic Current Visit: Yes Code(s): L97.922 - Non-pressure chronic ulcer of unspecified part of left lower leg with fat layer exposed Type of Wound Date of Service: 10/14/19 Chief Complaint: Left lower extremity ulcer. History of Wound: Mr. Russell is a 69yo well-known to the wound center who presents due to new (recurrent) left lower extremity ulcer. Said to have started about a week ago. Initially noted increased fluid drainage. Denies chills, fever or otherwise feeling of unwell. Home health nurse was concerned as well due to significant foul smell. Progress of Wound: This most recent hospital admission for septic shock. Home and doing well. Left lower extremity ulcers are healed. Significant bilateral lower extremity edema. Was taken off Lasix during his hospital stay due to hypotension and worsening kidney function. - Physical Exam Vital Signs Temp Pulse Resp BP 98.1 F 82 22 H 132/57 H 10/14/19 10:32 10/14/19 10:32 10/14/19 10:32 10/14/19 10:32 General: Alert, Oriented x3, Cooperative, No apparent distress HEENT: Atraumatic, Normocephalic Oral: Moist Mucosa Neck: Supple Lungs: Normal air movement Abdomen: Non Tender, Obese Extremities: No cyanosis, Edema Wound Measurements and Assessment WC - Nurse 1 - General Ulcer Measurement Start: 10/14/19 10:31 Freq: Status: Active Protocol: Activity Type Activity Date Activity User E-Sign Co-Sign Detail Recorded Client Recorded Date Recorded By Document 10/14/19 10:32 DL [id number] 10/14/19 10:43 DL 10/14/19 10:32 Wound Center Nurse 1 [Ulcer Assessment] #16 left medial LE -Current Size (cm) - Length 0.1 -Current Size (cm) - Width 0.1 -Current Size (cm) - Depth 0.1 -Total Square Cm 0.01 -Photo Taken No -Exudate Amt None Present -Wound Margin Indistinct, Non -Visible -Granulation Amt Large (67-100%) -Granulation Quality [place] -Necrosis Amt None Present (0 %) -Structure Exposed N/A -Texture (Jaylyn-wound Skin Appearance) Excoriation, Localized Edema -Moisture (Jaylyn-wound Skin Appearance Dry/Scaly ) -Color (Jaylyn-wound Skin Appearance) Erythema, Hemosiderin Staining -Temperature (Jaylyn-wound Skin No Abnormality Appearance) (Pt Warm) -Tenderness on Palpation (Jaylyn-wound No Skin Appearance) -Ulcer Cleansing Wound Cleanser -Foul Odor after Cleansing No 15. LLE lateral cluster -Current Size (cm) - Length 0.1 -Current Size (cm) - Width 0.1 -Current Size (cm) - Depth 0.1 -Total Square Cm 0.01 -Photo Taken No -Exudate Amt Small -Exudate Type Serosanguineous -Wound Margin Flat & Intact -Granulation Amt Large (67-100%) -Granulation Quality [place] -Necrosis Amt None Present (0 %) -Structure Exposed N/A -Texture (Jaylyn-wound Skin Appearance) Excoriation, Scarring -Moisture (Jaylyn-wound Skin Appearance Dry/Scaly ) -Color (Jaylyn-wound Skin Appearance) Erythema, Hemosiderin Staining -Temperature (Jaylyn-wound Skin No Abnormality Appearance) (Pt Warm) -Tenderness on Palpation (Jaylyn-wound No Skin Appearance) -Ulcer Cleansing Wound Cleanser -Foul Odor after Cleansing No [Edema Assessment] -Right Calf (cm) 48.5 -Right Ankle (cm) 34.5 -Left Calf (cm) 53 -Left Ankle (cm) 37 WC - Nurse 2 - General Ulcer CM Notes Start: 10/14/19 10:31 Freq: Status: Active Protocol: Activity Type Activity Date Activity User E-Sign Co-Sign Detail Recorded Client Recorded Date Recorded By Document 10/14/19 10:55 MW [id number] 10/14/19 11:00 MW 10/14/19 10:55 Wound Center Nurse 2 [Procedure/Treatment] #16 left medial LE -Time 10:55 -Correct Patient Yes -Correct Side, Site, Position Yes -Correct Procedure Yes -Procedure Performed No -Post Debridement Size (cm) - Length 0.1 -Post Debridement Size (cm) - Width 0.1 -Post Debridement Size (cm) - Depth 0.1 -Total Square Cm 0.01 -Wound/Ulcer Outcome Not Healed -Ulcer Cleansing Not Cleansed -Foul Odor after Cleansing No -Bioengineered Tissue No -Bleeding Controlled with NA -Offloading No -Treatment Response Procedure Tolerated Well 15. LLE lateral cluster -Time 10:56 -Correct Patient Yes -Correct Side, Site, Position Yes -Correct Procedure Yes -Procedure Performed No -Post Debridement Size (cm) - Length 0.1 -Post Debridement Size (cm) - Width 0.1 -Post Debridement Size (cm) - Depth 0.1 -Total Square Cm 0.01 -Wound/Ulcer Outcome Not Healed -Ulcer Cleansing Not Cleansed -Foul Odor after Cleansing No -Bioengineered Tissue No -Bleeding Controlled with NA -Offloading No -Treatment Response Procedure Tolerated Well [See Physician Procedure note for Specifics] Pain Scale: 0-10 Numeric [Pain] -Is Patient Pain Free? Yes Musculoskeletal: No Muscle Wasting Neurological: Cranial nerves II-XII grossly intact Psych/Mental Status: Normal Affect Debridement Note Post-Debridement Measurements/Treatment WC - Nurse 2 - General Ulcer CM Notes Start: 10/14/19 10:31 Freq: Status: Active Protocol: Activity Type Activity Date Activity User E-Sign Co-Sign Detail Recorded Client Recorded Date Recorded By Document 10/14/19 10:55 MW [id number] 10/14/19 11:00 MW 10/14/19 10:55 Wound Center Nurse 2 #16 left medial LE -Time 10:55 -Correct Patient Yes -Correct Side, Site, Position Yes -Correct Procedure Yes -Procedure Performed No -Post Debridement Size (cm) - Length 0.1 -Post Debridement Size (cm) - Width 0.1 -Post Debridement Size (cm) - Depth 0.1 -Total Square Cm 0.01 -Wound/Ulcer Outcome Not Healed -Ulcer Cleansing Not Cleansed -Foul Odor after Cleansing No -Bioengineered Tissue No -Bleeding Controlled with NA -Offloading No -Treatment Response Procedure Tolerated Well 15. LLE lateral cluster -Time 10:56 -Correct Patient Yes -Correct Side, Site, Position Yes -Correct Procedure Yes -Procedure Performed No -Post Debridement Size (cm) - Length 0.1 -Post Debridement Size (cm) - Width 0.1 -Post Debridement Size (cm) - Depth 0.1 -Total Square Cm 0.01 -Wound/Ulcer Outcome Not Healed -Ulcer Cleansing Not Cleansed -Foul Odor after Cleansing No -Bioengineered Tissue No -Bleeding Controlled with NA -Offloading No -Treatment Response Procedure Tolerated Well Pain Scale: 0-10 Numeric Is Patient Pain Free? Yes No debridement was completed today Assessment/Plan Active Problems (Last Reviewed 10/06/19 @ 17:[address] Guillermo Fuchs, DO) Ulcer of left lower extremity with fat layer exposed (Chronic) Lymphedema of both lower extremities (Chronic) Type 2 diabetes mellitus (Chronic) Assessment: Recurrent left lower extremity ulcer. Chronic lymphedema. Morbid obesity. Plan: He states that he is doing well post hospital discharge for septic shock. Left lower extremity ulcerations are healed. He however has significant edema to both. As above, he was taken of Lasix however has an appointment scheduled with his wood tool maker shortly. Bilateral 3M wraps. Change on Friday and Friday by home health. Continue lymphedema pump at 40 mmHg. Compliance encouraged. Also strongly advised to elevate his lower extremities and cut back on sodium intake. He voiced understanding. Continue increased protein intake. His questions were answered and he was advised to call with any further questions or concerns. Follow-up in 1 week. This note was generated with [employer] dictation software. It may contain incorrect words, spelling, and punctuation that were not noted in checking the note before signing. Office Visits / Consults: [id number] OV L3 Est
[2019-10-28 11:16] VITALS: BP 112/56; PULSE 83; RESP 22; TEMP 36.9; BMI 44.5
--- NOTE | 2019-10-28 11:52 | PN.PCM_ITS ---
(1) Lymphedema of both lower extremities Status: Chronic Current Visit: Yes Code(s): I89.0 - Lymphedema, not elsewhere classified (2) Type 2 diabetes mellitus Status: Chronic Current Visit: Yes Code(s): E11.9 - Type 2 diabetes mellitus without complications (3) Ulcer of left lower extremity with fat layer exposed Status: Chronic Current Visit: Yes Code(s): L97.922 - Non-pressure chronic ulcer of unspecified part of left lower leg with fat layer exposed Type of Wound Date of Service: 10/28/19 Chief Complaint: Left lower extremity ulcer. History of Wound: Mr. Russell is a 69yo well-known to the wound center who presents due to new (recurrent) left lower extremity ulcer. Said to have started about a week ago. Initially noted increased fluid drainage. Denies chills, fever or otherwise feeling of unwell. Home health nurse was concerned as well due to significant foul smell. Progress of Wound: No new concerns. Minimal areas of weeping noted. Still has edema. - Physical Exam Vital Signs Temp Pulse Resp BP 98.4 F 83 22 H 112/56 L 10/28/19 11:16 10/28/19 11:16 10/28/19 11:16 10/28/19 11:16 General: Alert, Oriented x3, Cooperative, No apparent distress HEENT: Atraumatic, Normocephalic Oral: Moist Mucosa Neck: Supple Lungs: Normal air movement Abdomen: Non Tender, Obese Extremities: No cyanosis, Edema Wound Measurements and Assessment WC - Nurse 1 - General Ulcer Measurement Start: 10/14/19 10:31 Freq: Status: Active Protocol: Activity Type Activity Date Activity User E-Sign Co-Sign Detail Recorded Client Recorded Date Recorded By Document 10/28/19 11:16 DL [id number] 10/28/19 11:25 DL 10/28/19 11:16 Wound Center Nurse 1 [Ulcer Assessment] #16 left medial LE -Current Size (cm) - Length 0.1 -Current Size (cm) - Width 0.1 -Current Size (cm) - Depth 0.1 -Total Square Cm 0.01 -Photo Taken No -Exudate Amt Medium -Exudate Type Serosanguineous -Wound Margin Indistinct, Non -Visible -Granulation Amt Large (67-100%) -Granulation Quality [place] -Necrosis Amt None Present (0 %) -Structure Exposed N/A -Texture (Jaylyn-wound Skin Appearance) Excoriation -Moisture (Jaylyn-wound Skin Appearance Weeping ) -Color (Jaylyn-wound Skin Appearance) Erythema -Temperature (Jaylyn-wound Skin No Abnormality Appearance) (Pt Warm) -Tenderness on Palpation (Jaylyn-wound No Skin Appearance) -Ulcer Cleansing Wound Cleanser -Foul Odor after Cleansing No -Anesthetic Used 4% Lidocaine Solution 15. LLE lateral cluster -Current Size (cm) - Length 0.1 -Current Size (cm) - Width 0.1 -Current Size (cm) - Depth 0.1 -Total Square Cm 0.01 -Exudate Amt Medium -Exudate Type Serosanguineous -Wound Margin Indistinct, Non -Visible -Granulation Amt Large (67-100%) -Granulation Quality [place] -Necrosis Amt None Present (0 %) -Structure Exposed N/A -Texture (Jaylyn-wound Skin Appearance) Excoriation -Moisture (Jaylyn-wound Skin Appearance Weeping ) -Color (Jaylyn-wound Skin Appearance) Erythema,Rubor -Temperature (Jaylyn-wound Skin No Abnormality Appearance) (Pt Warm) -Tenderness on Palpation (Jaylyn-wound No Skin Appearance) -Ulcer Cleansing Wound Cleanser -Foul Odor after Cleansing No [Edema Assessment] -Right Calf (cm) 48.6 -Right Ankle (cm) 35.3 -Left Calf (cm) 50.3 -Left Ankle (cm) 37 Musculoskeletal: No Muscle Wasting Neurological: Cranial nerves II-XII grossly intact Psych/Mental Status: Normal Affect Debridement Note Post-Debridement Measurements/Treatment WC - Nurse 2 - General Ulcer CM Notes Start: 10/14/19 10:31 Freq: Status: Active Protocol: Activity Type Activity Date Activity User E-Sign Co-Sign Detail Recorded Client Recorded Date Recorded By Document 10/14/19 10:55 MW [id number] 10/14/19 11:00 MW 10/14/19 10:55 Wound Center Nurse 2 #16 left medial LE -Time 10:55 -Correct Patient Yes -Correct Side, Site, Position Yes -Correct Procedure Yes -Procedure Performed No -Post Debridement Size (cm) - Length 0.1 -Post Debridement Size (cm) - Width 0.1 -Post Debridement Size (cm) - Depth 0.1 -Total Square Cm 0.01 -Wound/Ulcer Outcome Not Healed -Ulcer Cleansing Not Cleansed -Foul Odor after Cleansing No -Bioengineered Tissue No -Bleeding Controlled with NA -Offloading No -Treatment Response Procedure Tolerated Well 15. LLE lateral cluster -Time 10:56 -Correct Patient Yes -Correct Side, Site, Position Yes -Correct Procedure Yes -Procedure Performed No -Post Debridement Size (cm) - Length 0.1 -Post Debridement Size (cm) - Width 0.1 -Post Debridement Size (cm) - Depth 0.1 -Total Square Cm 0.01 -Wound/Ulcer Outcome Not Healed -Ulcer Cleansing Not Cleansed -Foul Odor after Cleansing No -Bioengineered Tissue No -Bleeding Controlled with NA -Offloading No -Treatment Response Procedure Tolerated Well Pain Scale: 0-10 Numeric Is Patient Pain Free? Yes No debridement was completed today Assessment/Plan Active Problems (Last Reviewed 10/22/19 @ 14:54 by Shirley Hill, [employer]-C) Ulcer of left lower extremity with fat layer exposed (Chronic) Lymphedema of both lower extremities (Chronic) Type 2 diabetes mellitus (Chronic) Assessment: Recurrent left lower extremity ulcer. Chronic lymphedema. Morbid obesity. Plan: No debridement completed today. Minimal areas of weeping/drainage. Continue Aquacel with bilateral 3M wraps. Change on Friday and Friday by home health. Continue lymphedema pump at 40 mmHg. Compliance encouraged. Also strongly advised to elevate his lower extremities and cut back on sodium intake. He voiced understanding. Continue increased protein intake. His questions were answered and he was advised to call with any further questions or concerns. Follow-up in 2 weeks. This note was generated with [employer] dictation software. It may contain incorrect words, spelling, and punctuation that were not noted in checking the note before signing. Office Visits / Consults: [id number] OV L3 Est
== END 2019-11-09 23:59 ==
LOC: WC 10:30
PROVIDERS: Family Provider Family Medicine; PCP Family Medicine; Visit Provider Internal Medicine
DX: E11.622 Type 2 diabetes mellitus with other skin ulcer (principal); L97.822 Non-pressure chronic ulcer of other part of left lower leg with fat layer exposed; I89.0 Lymphedema, not elsewhere classified; E11.22 Type 2 diabetes mellitus with diabetic chronic kidney disease; N18.3 Chronic kidney disease, stage 3 (moderate); E66.01 Morbid (severe) obesity due to excess calories; Z68.41 Body mass index [BMI] 40.0-44.9, adult
CPT/HCPCS: 29581; 36415; 80069; 99212; 99213; G0463

== ENCOUNTER → 2019-11-05 11:36 | Outpatient (CLI) | payer MEDICARE, OTHER, SELFPAY ==
[2019-10-14 10:32] VITALS: BMI 44.5
[2019-10-28 11:16] VITALS: BMI 44.5
[2019-11-05 12:34] LABS: Albumin, Serum 2.3 g/dL (3.2-5.0); BUN 22 mg/dL (7-18); BUN/Creat Ratio 12.8 RATIO (10-20); Calcium,Total 8.8 mg/dL (8.5-10.1); Chloride 107 mmol/L (98-107); Creatinine, Serum 1.72 mg/dL (0.70-1.30); EST Glomerular Filtration Rate 42 mL/min (>60); Est Glom Filt Rate - Afr Amer 51 mL/min (>60); Glucose 96 mg/dL (74-106); Phosphorus 2.7 mg/dL (2.5-4.9); Sodium Level 138 mmol/L (136-145)
== END ==
PROVIDERS: PCP Family Medicine; Referring Provider Internal Medicine Nephrology; Visit Provider Internal Medicine Nephrology
DX: E11.22 Type 2 diabetes mellitus with diabetic chronic kidney disease (principal); N18.3 Chronic kidney disease, stage 3 (moderate); N25.81 Secondary hyperparathyroidism of renal origin
CPT/HCPCS: 36415; 80069

== ENCOUNTER → 2019-11-08 20:18 | Outpatient (CLI) | payer MEDICARE, OTHER, SELFPAY ==
[2019-10-22 14:03] VITALS: BMI 44.5
[2019-11-08] MEDS: Zolpidem Tartrate 5 MG Tablet PO (22:00)
== END ==
PROVIDERS: PCP Family Medicine; Referring Provider Nurse Practitioner Acute Care; Visit Provider Nurse Practitioner Acute Care
DX: G47.33 Obstructive sleep apnea (adult) (pediatric) (principal)
CPT/HCPCS: 95811

== ENCOUNTER → 2019-11-25 09:00 | Outpatient (CLI) | payer MEDICARE, OTHER, SELFPAY ==
[2019-10-28 11:16] VITALS: BMI 44.5
== END ==
PROVIDERS: PCP Family Medicine; Visit Provider Nurse Practitioner Acute Care
DX: G47.33 Obstructive sleep apnea (adult) (pediatric) (principal)

== ENCOUNTER 2019-11-25 20:06 | Inpatient (IN) | payer MEDICARE, OTHER, SELFPAY ==
[2019-11-25] VITALS (10 sets, daily range): BP systolic 159–193; BP diastolic 71–83; PULSE 92–103; RESP 12–32; TEMP 36.1–36.6; O2SAT 85–100; BMI 44.5; BMI 43.7
--- NOTE | 2019-11-25 20:25 | EKG12_ITS ---
Test Reason : AM EKG Blood Pressure : / mmHG Vent. Rate : 088 BPM Atrial Rate : 088 BPM P-R Int : 214 ms QRS Dur : 150 ms QT Int : 442 ms P-R-T Axes : 038 -36 -01 degrees QTc Int : 534 ms Sinus rhythm with 1st degree A-V block Left axis deviation Right bundle branch block Abnormal ECG When compared with ECG of 06-OCT-2019 14:40, DC interval has increased Confirmed by ROSY PERRY, ASA ([id number]), photography editor MANUEL VELÁZQUEZ ([id number]) on 11/29/2019 11:08:16 AM Referred By: Shirley Hill Confirmed By:ASA GALLEGOS MD
--- NOTE | 2019-11-25 20:35 | ED.DCSUM_ITS ---
History of Present Illness Chief Complaint: Shortness of Breath Informant: Patient Narrative: Patient is a 69-year-old male who presents to the emergency department for sudden onset shortness of breath. Denies any chest pain associated with this. It is been present over the past day. Ambulating makes his symptoms worse. He denies ever having this happen before in the past. Denies any history of asthma or COPD. Denies any history of DVT/PE. Denies any history of CHF. Patient was recently in the hospital for sepsis secondary to leg cellulitis. Recently his legs have been less swollen than normal. He denies any cough, fever/chills. No known sick contacts. He denies any lightheadedness or near syncopal symptoms. No pain in his upper abdomen or back. No vomiting but he did get slightly nauseous at onset of symptoms. No change in bowel habits. He denies any smoking history. Denies alcohol or drug use. Past Medical History - Allergies and Home Meds Allergies/Adverse Reactions: Allergies No Known Allergies Allergy (Verified 11/25/19 20:10) Prior records reviewed: Yes Past Medical History: - - CKD, hypertension, HERNÁN, cellulitis with sepsis Surgical History: no surgical history Smoking Status: Never smoker Alcohol: None Drugs: None - Family History Maternal Family History: Family History (Last Reviewed 10/22/19 @ 14:54 by LUCIANO De La Torre) Mother Cancer Father Hypertension Family History: Reports: Cancer Paternal Family History: Family History (Last Reviewed 10/22/19 @ 14:54 by LUCIANO De La Torre) Mother Cancer Father Hypertension Family History: Reports: - - Head trauma. Review of Systems All systems negative except as indicated General: Denies: Chills, Fever, Sweats Eyes: Denies: Visual changes - bilaterally, Diplopia ENT: Denies: Rhinorrhea, Sore throat Cardiovascular: Denies: Chest pain, Palpitations Respiratory: Reports: Dyspnea, Dyspnea on exertion. Denies: Cough Gastrointestinal: Reports: Nausea. Denies: Abdominal pain, Vomiting, Diarrhea, Melena, Hematochezia Genitourinary: Denies: Dysuria, Hematuria, Frequency Musculoskeletal: Reports: Swelling - Lower extremities bilaterally. Denies: Back pain, Extremity Pain Skin: Denies: Rash, Wounds Neurological: Denies: Headache, Weakness, Numbness Physical Exam Vital Signs/Narrative: Vital Signs Temp Pulse Resp BP Pulse Ox 11/25/19 20:21 97.8 F 97 24 H 170/74 H 100 11/25/19 20:08 97.9 F 98 28 H 193/83 H 85 Inital Vital Signs reviewed: Yes General: Well nourished, Well developed, - - Mild distress but able to talk in full sentences. Head: Normocephalic, Atraumatic Eyes: Perrl, EOMI ENT: Moist mucous membranes, No rhinorrhea Neck: Supple, Nontender Cardiovascular: Regular rate, Regular rhythm, No murmurs, Tachycardia, - - 2+ radial pulses bilaterally. Respiratory: No distress, CTA bilaterally, Chest nontender, - - Patient ta chypneic with increased work of breathing.. Negative for: Rales, Rhonchi, Wheezing Abdomen: Soft, Nontender, Nondistended, Normal bowel sounds Back: Nontender, Normal Inspection Extremities: Nontender, No edema, Edema - Nonpitting bilateral Skin: Normal color, No rash Neurological: Alert, Oriented x3, Cranial nerves II-XII grossly intact, Normal Strength, Normal Sensation Psychological: Normal affect, Normal Mood Diagnostic/Tx/Re-eval - EKG Initial EKG Interpretation: - - Rate of 101 bpm in a sinus tachycardia. QRS interval of 148 with a QTC of 516. He has a right bundle branch block present. No significant ST elevations or depressions appreciated. No obvious T wave abnormalities. Prior EKG for comparison was performed on October 052019. This did have the right bundle branch block present. No significant change from that EKG. - Medical Decision Making Patient presents to the emergency department for acute onset shortness of breath. Upon arrival to emerge department he is mildly hypoxic requiring oxygen by nasal cannula which does resolve this hypoxia. Mildly tachycardic. He does have some increased work of breathing although lung sounds do sound clear bilaterally. He does have chronic swelling of bilateral lower extremities. No history of DVT/PE but he did have a recent hospital stay. I did perform a bedside ultrasound which did show some B-lines. X-ray performed which did show some consolidation of the bilateral lung daly. We will treat this as pneumonia. Repeat testing for coronavirus given his recent hospital stay. Will start broad-spectrum antibiotics with vancomycin and Zosyn. Currently holding azithromycin given his prolonged QTC. Blood cultures and lactic acid obtained. His troponin is within normal limits. EKG did not show any evidence of acute ischemia. BNP is very elevated. He did have the recent echocardiogram which showed an EF of 60% but they were unable to evaluate the diastolic function. Patient was started on BiPAP and he does feel significantly better. His breathing does appear to be improving. ABG just prior to the onset of BiPAP showed he had a respiratory acidosis with a pH of 7.24 with a PCO2 of 54. BiPAP settings being adjusted. Pulmonary embolism is on differential. He does have chronic kidney disease. Would likely benefit from ultrasound of the lower extremities before performing CTA given his CKD. Since he has significant improvement on BiPAP this is lower on my differential. Most likely pneumonia with volume overload component. Will bring the patient into the hospital for further evaluation and management. Patient is agreeable with this plan. - Critical Care Time Critical care time (excluding procedures): 30-74 minutes, Discussing w/Patient &/or Family/Forest Nursery Supervisor, Discussing w/Consultants, Arranging Admission or Transfer, Performing Direct Patient Care at Bedside ED Disposition - Plan for ED Patient: Disposition: Acute Care Hospital [facility] Diagnosis: Hospital-acquired pneumonia, Acute respiratory failure, Pulmonary vascular congestion
--- NOTE | 2019-11-25 20:50 | RAD_ITS ---
STUDY: X-RAY CHEST REASON FOR EXAM: Male, 69 years old. SUDDEN SOB TECHNIQUE: Portable chest COMPARISON: 10/06/2019 FINDINGS: There are worsening bilateral pulmonary opacities. There is no demonstrated pleural abnormality. There is stable mild cardiomegaly. Normal mediastinum and calli. Normal visualized pulmonary arteries. Normal visualized aortic arch and descending thoracic aorta. Normal visualized thoracic spine. Normal visualized ribs, clavicles, and shoulders. There is no demonstrated abnormality of the visualized soft tissue structures of the upper abdomen. RAD/Chest 1 View (Portable) IMPRESSION: Worsening bilateral pulmonary opacities, pneumonia and/or pulmonary venous congestion, atypical viral pneumonia cannot be excluded Stable mild cardiomegaly Electronically Signed: José Baptiste, at 21:18 EDT Tel , Service support ,
[2019-11-25 20:52] LABS: Absolute Lymphocyte Count 1.01 X10^3/uL (0.83-4.51); Absolute Neutrophil Count 5.9 X10^3/uL (2.0-7.7); Basophil# 0.02 X10^3/uL; Basophil% 0.3 % (0-1); Eosinophil# 0.46 X10^3/uL; Eosinophils% 5.8 % (0-5); Hematocrit 28.7 % (40-54); Lymphocyte # 1.01 X10^3/ul (4.0); Lymphocyte % 12.8 % (19-41); Mean Corp Hgb Conc 31.4 g/dL (32-36); Mean Corpuscular Volume 102.1 fL (80-94); Mean Platelet Vol. 11.6 fl (6.2-12.0); Monocyte# 0.48 X10^3/uL; Monocyte% 6.1 % (0-10); NRBC Flagged by Analyzer 0 % (0-5); Neutrophil # 5.87 X10^3/uL (2.7-7.7); Neutrophil % 74.6 % (47-70); Platelet Count 163 K/mm3 (150-450); RBC Distribution Width CV 15.1 % (11.6-14.6); RBC Distribution Width SD 56.4 fl (35.1-43.9); Red Blood Count 2.81 M/mm3 (4.6-6.2); White Blood Count 7.9 K/mm3 (4.4-11.0)
[2019-11-25 21:12] LABS: Anion Gap 5 (5-15); BUN 35 mg/dL (7-18); BUN/Creat Ratio 19.3 RATIO (10-20); Calcium,Total 8.8 mg/dL (8.5-10.1); Chloride 108 mmol/L (98-107); Creatinine, Serum 1.81 mg/dL (0.70-1.30); EST Glomerular Filtration Rate 40 mL/min (>60); Est Glom Filt Rate - Afr Amer 48 mL/min (>60); Estimated Creatinine Clearance 39.21 ml/min; Glucose 131 mg/dL (74-106); Magnesium 1.6 mg/dL (1.6-2.6); Sodium Level 139 mmol/L (136-145)
[2019-11-25 21:34] LABS: BNP,B-Type NATRIURETIC PEPTIDE 1370.3 pg/mL (0-100); Lactic Acid 1.2 mmol/L (0.4-1.9)
--- NOTE | 2019-11-25 22:20 | PCM.HP.STD ---
Problem List (1) Sepsis Status: Acute Qualifiers: Sepsis type: sepsis due to unspecified organism Sepsis acute organ dysfunction status: unspecified Qualified Code(s): A41.9 - Sepsis, unspecified organism (2) Acute respiratory failure Status: Acute (3) Hospital-acquired pneumonia Status: Acute (4) CKD (chronic kidney disease), stage III Status: Chronic (5) Morbid obesity Status: Chronic (6) Chronic acquired lymphedema Status: Chronic (7) HERNÁN (obstructive sleep apnea) Status: Chronic (8) Essential hypertension Status: Chronic (9) Anemia Status: Chronic Qualifiers: Anemia type: unspecified type Qualified Code(s): D64.9 - Anemia, unspecified (10) Type 2 diabetes mellitus Status: Chronic Qualifiers: Diabetes mellitus long term care phlebotomist insulin use: without correction use Diabetes mellitus complication status: with other specified complication Qualified Code(s): E11.69 - Type 2 diabetes mellitus with other specified complication (11) Iron deficiency anemia Status: Chronic Qualifiers: Iron deficiency anemia type: unspecified iron deficiency Qualified Code(s): D50.9 - Iron deficiency anemia, unspecified (12) Hyperlipidemia Status: Chronic Qualifiers: Hyperlipidemia type: unspecified History of Present Illness Date of Admission: 11/25/19 Chief Complaint: Dyspnea The patient is a 69 y/o M w/ PMHx: Chronic anemia/Fe Deficiency, HTN, HLD, CKD stage III, Hx Diabetes mellitus type II with neuropathy, HERNÁN, Chronic BL LE Lymphedema, Morbid Obesity, recently admitted 10/06/2019 with septic shock secondary to bacteremia secondary to cellulitis who now re-presents to the [facility] ED on 11/25/19 with history of acute sudden onset dyspnea, oxygenation mid-80s, immediately placed on BIPAP with recent mild cough but nonproductive with no related congestion but recent nausea and occasional dry heaves as well as abdominal bloating and occasional loose stool noting 3-4 times on day of ED presentation with no alteration to sense of taste or smell associated and specifically no fevers or chills prompting eventual ED presentation. He is unable to discern any recent weight gain or worsening lower extremity edema. He does have difficulty laying flat. He does note the dyspnea is worse with any exertional attempts currently or activity. Work-up in the ED included T 97.9, heart rate 98, BP initially 193/83, respiratory rate 28, 85% on room air transition to 12 L on a Ventimask at 50% with 97% however patient clinically worsened with continued tachypnea with transition to BiPAP, 99%, CBC with WC 7.9, hemoglobin 9, platelet 163 with no evidence of left shift with increased eosinophils, BMP with chloride 108, BUN/creatinine 35/1.81, glucose 131, lactic acid 1.2, magnesium 1.6, troponin less than 0.015, BNP 1370.3, COVID testing pending per ED physician, blood culture x2 pending per ED physician, chest x-ray with worsening bilateral pulmonary opacities, pneumonia and/or pulmonary venous congestion, atypical viral pneumonia cannot be excluded, stable mild cardiomegaly. In the ED patient administered vancomycin, Zosyn therapy. Past Medical History Past Medical History (Chronic Problems): Chronic Problems (Last Reviewed 10/22/19 @ 14:54 by Shirley Hill, [employer] B[employer] MACHINE OPERATOR-C) CKD (chronic kidney disease), stage III (Chronic) Morbid obesity (Chronic) Chronic acquired lymphedema (Chronic) Obesity (Chronic) HERNÁN (obstructive sleep apnea) (Chronic) Ulcer of left lower extremity with fat layer exposed (Chronic) Lymphedema of both lower extremities (Chronic) Ulcer of left foot (Chronic) Cardiac murmur (Chronic) Stage 2 chronic kidney disease (Chronic) Essential hypertension (Chronic) Anemia (Chronic) Gout (Chronic) Type 2 diabetes mellitus (Chronic) Iron deficiency anemia (Chronic) Hyperlipidemia (Chronic) Medical History: Medical History (Last Reviewed 10/22/19 @ 14:54 by Shirley Hill, POLYETHYLENE BAG MACHINE OPERATOR-C) Cardiac murmur (Chronic) R01.1 Stage 2 chronic kidney disease (Chronic) N18.2 Essential hypertension (Chronic) I10 Anemia (Acute) D64.9 Gout (Chronic) M10.9 Type 2 diabetes mellitus (Chronic) E11.9 Iron deficiency anemia (Chronic) D50.9 Hyperlipidemia (Chronic) E78.5 DRUJ (distal radioulnar joint) arthrosis, 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 Diabetic neuropathy E11.40 Hyperuricemia E79.0 Chronic kidney disease (Inactive) N18.9 Hypertension (Inactive) I10 Allergies No Known Allergies Allergy (Verified 11/25/19 20:10) Home Medications: Ambulatory Orders Medication Instructions Recorded Ascorbic Acid [Vitamin C] 500 mg PO DAILY@0800 03/08/17 Carvedilol [Coreg ([address])] 6.25 mg PO BID 03/08/17 Magnesium 500 mg PO DAILY 03/08/17 allopurinol 300 mg tablet 300 mg PO DAILY 08/23/19 cholecalciferol (vitamin D3) 125 125 mcg PO DAILY 08/23/19 mcg (5,000 unit) capsule ferrous sulfate 325 mg (65 mg 325 mg PO BID 08/23/19 iron) tablet cyanocobalamin (vitamin B-12) 1,000 mcg PO DAILY 08/24/19 1,000 mcg capsule omega-3 fatty acids 1,000 mg 1,000 mg PO DAILY 08/24/19 capsule Multivitamin with Minerals 1 tab PO DAILY 10/06/19 [Multiple Vitamin] Simvastatin 40 mg PO QHS 10/06/19 furosemide 20 mg tablet 20 mg PO DAILY 10/22/19 potassium chloride 20 mEq 20 meq PO DAILY 10/22/19 tablet,extended release Surgical History: Surgical History (Last Reviewed 10/22/19 @ 14:54 by LUCIANO De La Torre) S/P colonoscopy Z98.890 Status post tonsillectomy Z90.89 Surgical History: no surgical history, tonsillectomy Psychiatric History: No pertinent psych hx Lives: Alone Smoking Status: Light Smoker (<10/day) - Patient notes he will occasionally smoke a cigar but this is very rare. Tobacco Use: Cigars Alcohol: Sober Drugs: None - *Family History Maternal Family History: Family History (Last Reviewed 10/22/19 @ 14:54 by LUCIANO De La Torre) Mother Cancer Father Hypertension History Items: Cancer - Mother with history of ovarian cancer. Paternal Family History: Family History (Last Reviewed 10/22/19 @ 14:54 by LUCIANO De La Torre) Mother Cancer Father Hypertension History Items: Hypertension, - - Head trauma. Review of Systems Constitutional: Reports: Anorexia, Malaise, Weakness, Fatigue. Denies: Chills, Fever, Weight Change HEENT: Denies: Head Aches, Sinus Congestion, Sinus Drainage Cardiovascular: Reports: Edema, Orthopnea. Denies: Chest Pain, Chest Pressure, Chest Tightness, Light Headedness, Palpitations, Syncope Respiratory: Reports: Cough, Shortness of Breath, Shortness of breath at rest, Shortness of breath upon exertion. Denies: Sputum production Gastrointestinal: Reports: Abdominal Pain, Nausea, Vomiting Genitourinary: Denies: Dysuria Musculoskeletal: Reports: Back Pain, Joint Pain. Denies: Joint Tenderness Skin: Denies: Rash, Wounds Neurological: Denies: Numbness, Tingling, Focal weakness Psychiatric: Denies: Anxiety, Depression, Homicidal Ideations, Suicidal Ideations Hematologic/ Lymphatic: Reports: Anemia. Denies: Easy Bruising, Easy Bleeding VTE Information - Inpt Only VTE Present on Admission: No VTE Mechan Device Prophylaxis: SCD's VTE Pharm Prophylaxis ordered?: Yes Patient Problems: Active and Suspected Problems (Last Reviewed 10/22/19 @ 14:54 by LUCIANO De La Torre) Hospital-acquired pneumonia (Acute) Acute respiratory failure (Acute) Sepsis (Acute) Subjective: Seated upright in the ED bed, fatigued appearance, BiPAP in place, significantly improved since initial ED presentation, still some accessory muscle usage and exertional dyspnea but improving. Objective: Physical Examination: General: awake, alert, oriented x 3 and cooperative, seated upright in the ED bed, fatigued appearance, BiPAP in place, still increased respiratory effort and some conversational dyspnea as well as increased respiratory rate and accessory muscle usage but improving. Skin: normal color, turgor, no icterus, cyanosis. HEENT: AT/NC, EOMI, PERRLA, dry MM, BiPAP in place, no carotid bruits but difficult to discern with BiPAP currently in place, unable to discern JVD given thick neck and morbidly obese habitus. Lungs: Diffusely diminished, greater bases, mild rales bases, mildly coarse, BiPAP in place, improved since initial ED presentation but still increased respiratory effort and some conversational dyspnea as well as increased respiratory rate and accessory muscle usage. Heart: Tachycardic with regular rhythm; no gallop, rub audible. Abdomen: soft, morbidly obese, NTTP, ND, mildly hyperactive BS, no HSM; however, morbidly obese habitus makes examination difficult. Extremities: no cyanosis, clubbing, significant chronic bilateral lower extremity lymphedema. Neurological: patient awake, alert, oriented as noted; cognitive function now near baseline intact following BiPAP placement; pupils equally reactive to light and accomodation; cranial nerves II-XII grossly normal, moving all 4 extremities, no focal deficits, strength severely global decrease secondary to acute presentation. Psychiatric: affect appears fatigued and mildly uncomfortable, no acute evidence of depressive or anxiety feelings. - Physical Exam Vitals/I&O's: Vital Signs Temp Pulse Resp BP Pulse Ox 97.8 F 96 24 H 166/71 H 99 11/25/19 20:21 11/25/19 22:10 11/25/19 22:10 11/25/19 22:10 11/25/19 22:10 Oxygen Flow Rate (L/min) 12 Oxygen Delivery Method Bi-pap Weight: 305 lb Body Mass Index (BMI) 43.7 Intake and Output for Last 24 Hours 11/23/19 11/24/19 11/25/19 23:59 23:59 23:59 Intake Total 50 / 50 Balance 50 / 50 Laboratory Results 11/25/19 20:40: WBC 7.9, RBC 2.81 L, Hgb 9.0 L, Hct 28.7 L, MCV 102.1 H, MCH 32.0, MCHC 31.4 L, RDW Std Deviation 56.4 H, RDW Coeff of Inocencio 15.1 H, Plt Count 163, MPV 11.6, Immature Gran % (Auto) 0.400, Neut % (Auto) 74.6 H, Lymph % (Auto) 12.8 L, Mckenzie % (Auto) 6.1, Eos % (Auto) 5.8 H, Baso % (Auto) 0.3, Absolute Neuts (auto) 5.9, Absolute Lymphs (auto) 1.01, Nucleated RBC % 0 11/25/19 20:40: Sodium 139, Potassium 4.0, Chloride 108 H, Carbon Dioxide 26.0, Anion Gap 5, BUN 35 H, Creatinine 1.81 H, Estim Creat Clear Calc 39.21, Est GFR (MDRD) Af Amer 48 L, Est GFR (MDRD) Non-Af 40 L, BUN/Creatinine Ratio 19.3, Glucose 131 H, Calcium 8.8, Magnesium 1.6, Troponin I < 0.015 11/25/19 20:40: B-Natriuretic Peptide 1370.3 H 11/25/19 20:40: Lactic Acid 1.2 11/25/19 21:20: COVID-19 (ROMEO) Pending Current Medications Vancomycin HCl 2,000 mg/ (Sodium Chloride) 540 mls @ 250 mls/hr IV X1 ONE Stop: 11/25/19 23:29 Last Admin: 11/25/19 22:12 Dose: 250 mls/hr Documented by: Assessment/Plan All Active Problems (Last Reviewed 10/22/19 @ 14:54 by Shirley Hill NP-C) Hospital-acquired pneumonia (Acute) Acute respiratory failure (Acute) Sepsis (Acute) Bacteremia (Acute) Ulcer of right lower extremity with fat layer exposed (Resolved) Cellulitis of left lower extremity (Acute) Septic shock (Acute) Septic shock (Acute) DEEPTI (acute kidney injury) (Acute) The patient is a 69 y/o M w/ PMHx: Chronic anemia/Fe Deficiency, HTN, HLD, CKD stage III, Hx Diabetes mellitus type II with neuropathy, HERNÁN, Chronic BL LE Lymphedema, Morbid Obesity, recently admitted 10/06/2019 with septic shock secondary to bacteremia secondary to cellulitis who now re-presents to the [facility] ED on 11/25/19 with history of acute sudden onset dyspnea, oxygenation mid-80s, immediately placed on BIPAP with recent mild cough but nonproductive with no related congestion but recent nausea and occasional dry heaves as well as abdominal bloating and occasional loose stool noting 3-4 times on day of ED presentation 1. Acute Sepsis secondary to Acute Hypoxic Respiratory Failure, Multifactorial, suspected secondary to possible Acute CHF Exacerbation, possibly Diastolic, Possible Bilateral Pneumonia (GN/GP), Possible Acute Viral Syndrome, COVID-19: Will admit to the ICU, maintain on COVID precautions with pending testing, maintain on BIPAP, continue with ICU consultation, continue ATC duoneb, PRN albuterol pending COVID testing, maintain on Zosyn and Vancomycin w/ pending MRSA screen, HOB, IS parameters w/ pending sputum cultures and urine antigens, will obtain procalcitonin, CRP, CPK, Ferritin, LDH, Alk phos/AST/ALT, recent ECHO 10/07/19 w/ EF 60%, indeterminate diastolic function, mildly dilated RV, moderate aortic stenosis, moderately enlarged LA, mildly enlarged RA., cycle cardiac enzymes, supplement magnesium, repeat EKG in AM, continue supportive care including q 2 hour turning including prone given no prone bed availability, initiate IV lasix 40 mg BID with first dose now as concern for volume overload concurrently pending CTPA initiated in ED, closely monitor for worsening status for ARDS and multiorgan failure, Bld cx x 2 obtained in the ED. Stool cultures concurrently requested. 2. Chronic Kidney Disease Stage III: Admission BUN/Cr 35/1.81, baseline renal function 1.6-1.7, repeat BMP in AM especially given CTA being obtained. 3. Chronic anemia/iron deficiency anemia: Admission hemoglobin 9.0, baseline similar, continue to trend, continue iron supplementation. 4. Hx Diabetes mellitus type II with neuropathy: Not on regimen, last A1c remotely normal, will repeat, ADA diet, accu checks w/ ISS. 5. Chronic bilateral lower extremity lymphedema: We will continue snug Krunal wraps, lower extremity elevation, continue diuresis as noted. 6. HERNÁN: Currently on BiPAP as noted. 7. Morbid Obesity: Weight loss and lifestyle changes encouraged, nutrition consulted. 8. DVT prophylaxis: SCDs, therapeutic Lovenox x1 given renal function pending CTPA and if notable would transition to heparin drip pending COVID testing. 9. CODE status: Patient JANNETTE is his sister who is present and living will is currently in place. Discussed CODE status at length including difference between FULL code, DNR-CCA and DNR-CC status. Following discussions about the differences in these status, requested full CODE STATUS. Advanced Care Planning Face to Face Time: 16 minutes. Inpatient E&M: 77886 Init Hosp L3 Procedures: 75754 Advncd Care Plan 30 Min
--- NOTE | 2019-11-25 23:01 | ED.RN ---
pt's sister left her number and wants updated with pt's covid status. [phone].
[2019-11-26] VITALS (34 sets, daily range): BP systolic 100–185; BP diastolic 36–77; PULSE 74–98; RESP 12–32; TEMP 36.4–37.2; O2SAT 93–100; BMI 43.8; BMI 43.9
[2019-11-26] MEDS: Enoxaparin 150 MG/ML Syringe 140 MG SC (01:04)
[2019-11-26] MEDS: hydrALAZINE 20 MG/ML Vial 10 MG IV (01:12)
[2019-11-26] MEDS: 0.9% Saline Lock 10 ML Syringe IV ×5 (01:14→17:59)
[2019-11-26 01:41] LABS: Bedside Glucose 118 mg/dL (70-110)
[2019-11-26 01:45] LABS: Procalcitonin 0.11 ng/mL (0.00-0.09)
[2019-11-26 02:05] LABS: Allen Test POS; Blood Gas Specimen Type ART; SITE R RADIAL
[2019-11-26 02:06] LABS: Bicarbonate 23.3 mmol/L (22-26); FI02 50; PO2 131 mmHG (75-100); Time Given 2113; pCO2 54.1 mmHg (35-45); pH 7.24 (7.35-7.45)
[2019-11-26 02:07] LABS: Base Excess -4 mmol/L (-2 to +2); SO2 98 % (95-99); Total Carbon Dioxide 25 mmol/L
--- NOTE | 2019-11-26 02:18 | PCM.RX.CS ---
Consult Pharmacy has been consulted to manage selected antiobiotic: Vancomycin Type of Consult: New start Suspected Infection: Pneumonia Labs: Sodium 139 mmol/L (136-145) 11/25/19 20:40 Potassium 4.0 mmol/L (3.5-5.1) 11/25/19 20:40 Chloride 108 mmol/L (98-107) H 11/25/19 20:40 Carbon Dioxide 26.0 mmol/L (21.0-32.0) 11/25/19 20:40 Anion Gap 5 (5-15) 11/25/19 20:40 BUN 35 mg/dL (7-18) H 11/25/19 20:40 Creatinine 1.81 mg/dL (0.70-1.30) H 11/25/19 20:40 Est GFR (MDRD) Af Amer 48 mL/min (>60) L 11/25/19 20:40 Est GFR (MDRD) Non-Af 40 mL/min (>60) L 11/25/19 20:40 BUN/Creatinine Ratio 19.3 RATIO (10-20) 11/25/19 20:40 Glucose 131 mg/dL (74-106) H 11/25/19 20:40 Microbiology: Microbiology 11/26/19 00:40 Urine, Clean Catch Streptococcus pneumoniae Antigen (M - Final 11/26/19 00:40 Urine, Clean Catch Legionella Antigen - Final Weight used for dosin kg Estimated Creatinine Clearance: 53.9 Goal Trough: 15-20 mcg/mL Pharmacy Plan for Drug Dosing: Pharmacy Service will continue to monitor and adjust dosing as required. Medications Vancomycin HCl 1,250 mg/ (Sodium Chloride) 275 mls @ 167 mls/hr IV Q12H DONNA Discontinued Medications Vancomycin HCl 2,000 mg/ (Sodium Chloride) 540 mls @ 250 mls/hr IV X1 ONE Stop: 11/25/19 23:29 Last Admin: 11/26/19 00:22 Dose: Infused Documented by: Follow-Up Labs: Trough Vancomycin Labs to be done on [date and time ordered]: 11/26 @ [id number]
[2019-11-26 02:22] LABS: M R Staph aureus DNA By PCR Negative (Negative); Probe Check PASS; Specimen Processing Control PASS
[2019-11-26] MEDS: Furosemide 40 MG/4 ML Vial IV ×3 (02:28→17:59)
[2019-11-26 02:31] LABS: AST(SGOT) 24 U/L (15-37); Alanine Aminotransfer ALT/SGPT 17 U/L (16-61); Albumin, Serum 2.8 g/dL (3.2-5.0); Alkaline Phosphatase 143 U/L (45-117); Bilirubin, Direct 0.32 mg/dL (0.00-0.30); CPK Total, Creatine Kinase 38 U/L (39-308); Ferritin 884 ng/mL (26-388); Globulin 5.8 g/dL (2.2-4.2); LDH 175 U/L (87-241); Protein, Total 8.6 g/dL (6.4-8.2); Thyroid Stim Hormone (TSH) 2.31 uIU/mL (0.358-3.74)
[2019-11-26 03:49] LABS: Absolute Lymphocyte Count 0.72 X10^3/uL (0.83-4.51); Absolute Neutrophil Count 7.1 X10^3/uL (2.0-7.7); Basophil# 0.01 X10^3/uL; Basophil% 0.1 % (0-1); Eosinophil# 0.05 X10^3/uL; Eosinophils% 0.6 % (0-5); Hematocrit 25.9 % (40-54); Hemoglobin 8.1 g/dL (13.0-16.5); Lymphocyte # 0.72 X10^3/ul (4.0); Lymphocyte % 8.6 % (19-41); Mean Corp Hgb Conc 31.3 g/dL (32-36); Mean Corpuscular Volume 102.4 fL (80-94); Mean Platelet Vol. 11.5 fl (6.2-12.0); Monocyte# 0.47 X10^3/uL; Monocyte% 5.6 % (0-10); NRBC Flagged by Analyzer 0 % (0-5); Neutrophil # 7.12 X10^3/uL (2.7-7.7); Neutrophil % 84.5 % (47-70); Platelet Count 153 K/mm3 (150-450); RBC Distribution Width CV 15.2 % (11.6-14.6); RBC Distribution Width SD 57.3 fl (35.1-43.9); Red Blood Count 2.53 M/mm3 (4.6-6.2); White Blood Count 8.4 K/mm3 (4.4-11.0)
[2019-11-26 04:57] LABS: ALB/GLOB Ratio 0.4 RATIO (0.9-2.4); AST(SGOT) 21 U/L (15-37); Alanine Aminotransfer ALT/SGPT 14 U/L (16-61); Albumin, Serum 2.2 g/dL (3.2-5.0); Alkaline Phosphatase 118 U/L (45-117); Anion Gap 7 (5-15); BUN 33 mg/dL (7-18); BUN/Creat Ratio 19.3 RATIO (10-20); Calcium,Total 8.4 mg/dL (8.5-10.1); Chloride 107 mmol/L (98-107); Creatinine, Serum 1.71 mg/dL (0.70-1.30); EST Glomerular Filtration Rate 42 mL/min (>60); Est Glom Filt Rate - Afr Amer 51 mL/min (>60); Globulin 5.2 g/dL (2.2-4.2); Glucose 127 mg/dL (74-106); Protein, Total 7.4 g/dL (6.4-8.2); Sodium Level 138 mmol/L (136-145)
--- NOTE | 2019-11-26 05:55 | EKG12_ITS ---
Test Reason : DYSRHYTHMIA Blood Pressure : / mmHG Vent. Rate : 101 BPM Atrial Rate : 101 BPM P-R Int : 200 ms QRS Dur : 148 ms QT Int : 398 ms P-R-T Axes : 000 -39 025 degrees QTc Int : 516 ms Sinus tachycardia Left axis deviation Right bundle branch block Abnormal ECG Confirmed by ROSY PERRY, ASA ([id number]), editor & co founder MANUEL VELÁZQUEZ ([id number]) on 11/30/2019 9:16:52 AM Referred By: DEVEN Confirmed By:ASA GALLEGOS MD
--- NOTE | 2019-11-26 06:07 | PCM.CON.CC ---
Reason for Consult Date of Consultation: 11/26/19 Reason for Consultation: Respiratory failure, questionable pneumonia/COVID/CHF History of Present Illness: The patient is a 69-year-old male, with a history as outlined below, who presented to the emergency department on November 24 with complaints of shortness of breath. The patient was recently admitted to the hospital at the end of September, during which time, he was treated for septic shock secondary to probable cellulitis. Surface echocardiogram last completed in February 2017 revealed normal LV size and function with an ejection fraction of 60%. There was evidence of biatrial enlargement with a pulmonary artery systolic pressure estimated to be 31 mmHg. A split-night sleep study was also recently completed at the end of October 2019, which revealed evidence of severe obstructive sleep apnea for which BiPAP with a pressure support of 25/21 was recommended. On presentation to the emergency department, the patient was noted to be afebrile but was hypertensive with a blood pressure of 193/83. The patient was tachypneic and initially documented to be saturating 85% on room air. Initial laboratory evaluation revealed a normal white blood cell count. The patient was anemic with a hemoglobin of 9.0. Arterial blood gas obtained on Ventimask revealed a pH of 7.24, PCO2 of 54 and PO2 of 131. Chemistry profile was notable for a creatinine of 1.81. Ferritin was elevated to 884. BNP was elevated to 1370. Procalcitonin was not significantly elevated. MRSA screen was negative. Coronavirus PCR was negative. CTA chest was obtained and revealed no evidence for pulmonary embolism. Stigmata of congestive heart failure was present. The patient was subsequently placed on IV diuretic therapy along with antimicrobials. He was subsequently admitted to the medical intensive care unit for further management. This morning, the patient reports significant improvement in his breathing quality after being given IV Lasix last night and being maintained on BiPAP. He was subsequently weaned off of BiPAP this morning and is maintaining appropriate oxygen saturations on room air. Past Medical History Past Medical History (Chronic Problems): Chronic Problems (Last Reviewed 10/22/19 @ 14:54 by Shirley Hill NP-[place]) CKD (chronic kidney disease), stage III (Chronic) Morbid obesity (Chronic) Chronic acquired lymphedema (Chronic) Obesity (Chronic) HERNÁN (obstructive sleep apnea) (Chronic) Ulcer of left lower extremity with fat layer exposed (Chronic) Lymphedema of both lower extremities (Chronic) Ulcer of left foot (Chronic) Cardiac murmur (Chronic) Stage 2 chronic kidney disease (Chronic) Essential hypertension (Chronic) Anemia (Chronic) Gout (Chronic) Type 2 diabetes mellitus (Chronic) Iron deficiency anemia (Chronic) Hyperlipidemia (Chronic) Medical History: Medical History (Last Reviewed 10/22/19 @ 14:54 by Shirley Hill CLINICAL RESEARCH TECHNICIAN-C) Cardiac murmur (Chronic) R01.1 Stage 2 chronic kidney disease (Chronic) N18.2 Essential hypertension (Chronic) I10 Anemia (Chronic) D64.9 Gout (Chronic) M10.9 Type 2 diabetes mellitus (Chronic) E11.9 Iron deficiency anemia (Chronic) D50.9 Hyperlipidemia (Chronic) E78.5 DRUJ (distal radioulnar joint) arthrosis, 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 Diabetic neuropathy E11.40 Hyperuricemia E79.0 Chronic kidney disease (Inactive) N18.9 Hypertension (Inactive) I10 Allergies No Known Allergies Allergy (Verified 11/25/19 20:10) Home Medications: Ambulatory Orders Medication Instructions Recorded Ascorbic Acid [Vitamin C] 500 mg PO DAILY@0800 03/08/17 Carvedilol [Coreg ([address]eta [address])] 6.25 mg PO BID 03/08/17 Magnesium 500 mg PO DAILY 03/08/17 allopurinol 300 mg tablet 300 mg PO DAILY 08/23/19 cholecalciferol (vitamin D3) 125 125 mcg PO DAILY 08/23/19 mcg (5,000 unit) capsule ferrous sulfate 325 mg (65 mg 325 mg PO BID 08/23/19 iron) tablet cyanocobalamin (vitamin B-12) 1,000 mcg PO DAILY 08/24/19 1,000 mcg capsule omega-3 fatty acids 1,000 mg 1,000 mg PO DAILY 08/24/19 capsule Multivitamin with Minerals 1 tab PO DAILY 10/06/19 [Multiple Vitamin] Simvastatin 40 mg PO QHS 10/06/19 furosemide 20 mg tablet 20 mg PO DAILY 10/22/19 potassium chloride 20 mEq 20 meq PO DAILY 10/22/19 tablet,extended release Surgical History: Surgical History (Last Reviewed 10/22/19 @ 14:54 by Shirley Hill, CLINICAL RESEARCH TECHNICIAN-C) S/P colonoscopy Z98.890 Status post tonsillectomy Z90.89 Surgical History: no surgical history, tonsillectomy Psychiatric History: No pertinent psych hx Lives: Alone Smoking Status: Light Smoker (<10/day) Tobacco Use: Cigars Alcohol: Sober Drugs: None - *Family History Maternal Family History: Family History (Last Reviewed 10/22/19 @ 14:54 by LUCIANO De La Torre) Mother Cancer Father Hypertension History Items: Cancer - Mother with history of ovarian cancer. Paternal Family History: Family History (Last Reviewed 10/22/19 @ 14:54 by LUCIANO De La Torre) Mother Cancer Father Hypertension History Items: Hypertension, - - Head trauma. Review of Systems Constitutional: Denies: Chills, Fever Eyes: Denies: Blurred vision, Double vision HEENT: Denies: Head Aches, Sinus Congestion, Sinus Drainage Cardiovascular: Denies: Chest Pain, Palpitations Respiratory: Reports: Cough, Shortness of Breath Gastrointestinal: Denies: Abdominal Pain, Nausea, Vomiting Genitourinary: Denies: Dysuria Musculoskeletal: Denies: Joint Pain, Joint Tenderness Skin: Denies: Rash, Wounds Neurological: Denies: Numbness, Tingling, Focal weakness Psychiatric: Denies: Anxiety, Depression, Homicidal Ideations, Suicidal Ideations Hematologic/ Lymphatic: Reports: Anemia Patient Problems: Active and Suspected Problems (Last Reviewed 10/22/19 @ 14:54 by Shirley Hill NP-[place]) Hospital-acquired pneumonia (Acute) Acute respiratory failure (Acute) Sepsis (Acute) Objective: The patient's most recent lab work, culture data and imaging studies have all been personally reviewed. Strep and urine Legionella antigens were negative. Blood cultures are pending. - Physical Exam Vitals/I&O's: Vital Signs Temp Pulse Resp BP Pulse Ox 98.9 F 90 21 H 149/61 H 97 11/26/19 04:00 11/26/19 05:00 11/26/19 05:00 11/26/19 05:00 11/26/19 05:00 Oxygen Flow Rate (L/min) 12 Oxygen Delivery Method Bi-pap Weight: 306 lb 7.08 oz Body Mass Index (BMI) 43.8 Intake and Output for Last 24 Hours 11/24/19 11/25/19 11/26/19 23:59 23:59 23:59 Intake Total 50 / 50 644 / 644 Output Total 575 / 575 Balance 50 / 50 69 / 69 General: Alert, Oriented x3, Cooperative, No apparent distress HEENT: Atraumatic, PERRLA, Normocephalic Oral: No Gingival or Mucosal Lesions/ Ulcerations, Dry Mucosa Neck: Supple, No Nodes, Trachea Midline Lungs: No rhonchi, No wheeze, No rales, Diminished, - - No conversational dyspnea or accessory muscle use. Cardiovascular: Regular rate, Regular Rhythm, Murmur Abdomen: Bowel Sounds Present, Soft, Non Tender, Obese Extremities: No clubbing, No cyanosis, - - Bilateral lower extremity lymphedema Skin: No breakdown Musculoskeletal: No Tenderness to Palpation of Joints or Extremities, No Muscle Wasting Lymphatic: No Cervical, Supraclavicular, or Inguinal Adenopathy Neurological: Cranial nerves II-XII grossly intact, Neuro grossly intact Psych/Mental Status: Alert and oriented to time, place, person, mood and affect Labs (Last 48 Hours) 11/25/19 11/25/19 11/25/19 20:40 20:40 20:40 WBC 7.9 RBC 2.81 L Hgb 9.0 L Hct 28.7 L MCV 102.1 H MCH 32.0 MCHC 31.4 L RDW Std Deviation 56.4 H RDW Coeff of Inocencio 15.1 H Plt Count 163 MPV 11.6 Immature Gran % (Auto) 0.400 Neut % (Auto) 74.6 H Lymph % (Auto) 12.8 L [place] % (Auto) 6.1 Eos % (Auto) 5.8 H Baso % (Auto) 0.3 Absolute Neuts (auto) 5.9 Absolute Lymphs (auto) 1.01 Nucleated RBC % 0 Specimen Type Sample Site pH Bicarbonate Actual POC Total CO2 Base Excess O2 Saturation O2 % ABG pCO2 ABG pO2 Mitul Test O2 Delivery Device Liter Flow Blood Gas Notified Whom Blood Gas Notified Time Sodium 139 Potassium 4.0 Chloride 108 H Carbon Dioxide 26.0 Anion Gap 5 BUN 35 H Creatinine 1.81 H Estim Creat Clear Calc 39.21 Est GFR (MDRD) Af Amer 48 L Est GFR (MDRD) Non-Af 40 L BUN/Creatinine Ratio 19.3 Glucose 131 H Lactic Acid Calcium 8.8 Magnesium 1.6 Ferritin Total Bilirubin Direct Bilirubin AST ALT Alkaline Phosphatase Lactate Dehydrogenase Total Creatine Kinase Troponin I < 0.015 C-React Prot Ext Range B-Natriuretic Peptide 1370.3 H Total Protein Albumin Globulin Albumin/Globulin Ratio Procalcitonin TSH COVID-19 ([facility]) MRSA (PCR) POC Glucose 11/25/19 11/25/19 11/25/19 20:40 20:40 21:13 WBC RBC Hgb Hct MCV MCH MCHC RDW Std Deviation RDW Coeff of Inocencio Plt Count MPV Immature Gran % (Auto) Neut % (Auto) Lymph % (Auto) [place] % (Auto) Eos % (Auto) Baso % (Auto) Absolute Neuts (auto) Absolute Lymphs (auto) Nucleated RBC % Specimen Type ART Sample Site R RADIAL pH 7.24 L Bicarbonate Actual 23.3 POC Total CO2 25 Base Excess -4 L O2 Saturation 98 O2 % 50 ABG pCO2 54.1 H ABG pO2 131 H Mitul Test POS O2 Delivery Device Vent Mask Liter Flow 12.0 Blood Gas Notified Whom ED MD Blood Gas Notified Time 2112 Sodium Potassium Chloride Carbon Dioxide Anion Gap BUN Creatinine Estim Creat Clear Calc Est GFR (MDRD) Af Amer Est GFR (MDRD) Non-Af BUN/Creatinine Ratio Glucose Lactic Acid 1.2 Calcium Magnesium Ferritin 884 H Total Bilirubin 0.80 Direct Bilirubin 0.32 H AST 24 ALT 17 Alkaline Phosphatase 143 H Lactate Dehydrogenase 175 Total Creatine Kinase 38 L Troponin I C-React Prot Ext Range 49.90 H B-Natriuretic Peptide Total Protein 8.6 H Albumin 2.8 L Globulin 5.8 H Albumin/Globulin Ratio Procalcitonin TSH 2.31 COVID-19 ([facility]) MRSA (PCR) POC Glucose 11/25/19 11/26/19 11/26/19 21:20 00:35 00:50 WBC RBC Hgb Hct MCV MCH MCHC RDW Std Deviation RDW Coeff of Inocencio Plt Count MPV Immature Gran % (Auto) Neut % (Auto) Lymph % (Auto) [place] % (Auto) Eos % (Auto) Baso % (Auto) Absolute Neuts (auto) Absolute Lymphs (auto) Nucleated RBC % Specimen Type Sample Site pH Bicarbonate Actual POC Total CO2 Base Excess O2 Saturation O2 % ABG pCO2 ABG pO2 Mitul Test O2 Delivery Device Liter Flow Blood Gas Notified Whom Blood Gas Notified Time Sodium Potassium Chloride Carbon Dioxide Anion Gap BUN Creatinine Estim Creat Clear Calc Est GFR (MDRD) Af Amer Est GFR (MDRD) Non-Af BUN/Creatinine Ratio Glucose Lactic Acid Calcium Magnesium Ferritin Total Bilirubin Direct Bilirubin AST ALT Alkaline Phosphatase Lactate Dehydrogenase Total Creatine Kinase Troponin I C-React Prot Ext Range B-Natriuretic Peptide Total Protein Albumin Globulin Albumin/Globulin Ratio Procalcitonin 0.11 H TSH COVID-19 ([facility]) Not Detected MRSA (PCR) Negative POC Glucose 11/26/19 11/26/19 11/26/19 00:50 01:02 03:45 WBC 8.4 RBC 2.53 L Hgb 8.1 L Hct 25.9 L MCV 102.4 H MCH 32.0 MCHC 31.3 L RDW Std Deviation 57.3 H RDW Coeff of Inocencio 15.2 H Plt Count 153 MPV 11.5 Immature Gran % (Auto) 0.600 Neut % (Auto) 84.5 H Lymph % (Auto) 8.6 L [place] % (Auto) 5.6 Eos % (Auto) 0.6 Baso % (Auto) 0.1 Absolute Neuts (auto) 7.1 Absolute Lymphs (auto) 0.72 L Nucleated RBC % 0 Specimen Type Sample Site pH Bicarbonate Actual POC Total CO2 Base Excess O2 Saturation O2 % ABG pCO2 ABG pO2 Mitul Test O2 Delivery Device Liter Flow Blood Gas Notified Whom Blood Gas Notified Time Sodium Potassium Chloride Carbon Dioxide Anion Gap BUN Creatinine Estim Creat Clear Calc Est GFR (MDRD) Af Amer Est GFR (MDRD) Non-Af BUN/Creatinine Ratio Glucose Lactic Acid Calcium Magnesium Ferritin Total Bilirubin Direct Bilirubin AST ALT Alkaline Phosphatase Lactate Dehydrogenase Total Creatine Kinase Troponin I 0.028 C-React Prot Ext Range B-Natriuretic Peptide Total Protein Albumin Globulin Albumin/Globulin Ratio Procalcitonin TSH COVID-19 ([facility]) MRSA (PCR) POC Glucose 118 H 11/26/19 11/26/19 03:45 03:45 WBC RBC Hgb Hct MCV MCH MCHC RDW Std Deviation RDW Coeff of Inocencio Plt Count MPV Immature Gran % (Auto) Neut % (Auto) Lymph % (Auto) [place] % (Auto) Eos % (Auto) Baso % (Auto) Absolute Neuts (auto) Absolute Lymphs (auto) Nucleated RBC % Specimen Type Sample Site pH Bicarbonate Actual POC Total CO2 Base Excess O2 Saturation O2 % ABG pCO2 ABG pO2 Mitul Test O2 Delivery Device Liter Flow Blood Gas Notified Whom Blood Gas Notified Time Sodium 138 Potassium 4.0 Chloride 107 Carbon Dioxide 24.0 Anion Gap 7 BUN 33 H Creatinine 1.71 H Estim Creat Clear Calc 41.50 Est GFR (MDRD) Af Amer 51 L Est GFR (MDRD) Non-Af 42 L BUN/Creatinine Ratio 19.3 Glucose 127 H Lactic Acid Calcium 8.4 L Magnesium Ferritin Total Bilirubin 0.70 Direct Bilirubin AST 21 ALT 14 L Alkaline Phosphatase 118 H Lactate Dehydrogenase Total Creatine Kinase Troponin I 0.043 C-React Prot Ext Range B-Natriuretic Peptide Total Protein 7.4 Albumin 2.2 L Globulin 5.2 H Albumin/Globulin Ratio 0.4 L Procalcitonin TSH COVID-19 ([facility]) MRSA (PCR) POC Glucose Microbiology 11/26/19 00:40 Urine, Clean Catch Streptococcus pneumoniae Antigen (M - Final 11/26/19 00:40 Urine, Clean Catch Legionella Antigen - Final Clinical Impression(s) from Imaging Studies Chest X-Ray 11/25/19 20:50 IMPRESSION: Worsening bilateral pulmonary opacities, pneumonia and/or pulmonary venous congestion, atypical viral pneumonia cannot be excluded Stable mild cardiomegaly Electronically Signed: José Baptiste, at 21:18 EDT Tel , Service support , Chest CTA 11/26/19 23:01 IMPRESSION: Congestive heart failure. No demonstrated pulmonary embolism or arterial dissection. Cholelithiasis. Electronically Signed: Vern Guzmán, at 2:01 EDT Tel , Service support , Current Medications Acetaminophen (Tylenol) 650 mg PO Q6H PRN PRN PRN Reason: Pain Score 1-10/Temp > 100.7 F Al Hydroxide/Mg Hydroxide (Mylanta Ii) 30 ml PO Q6H PRN PRN PRN Reason: Gastric Burning Albuterol Sulfate (Ventolin Aerosols) 2.5 mg INHALATION Q2H PRN PRN PRN Reason: Dyspnea, wheezing Albuterol/Ipratropium (Duoneb) 3 ml INHALATION Q4HWA.RT DONNA Allopurinol (Zyloprim) 300 mg PO DAILY DONNA Ascorbic Acid (Vitamin C) 500 mg PO DAILY@0800 DONNA Atorvastatin Calcium (Lipitor) 20 mg PO QHS [facility] Carvedilol (Coreg) 6.25 mg PO BID [facility] Dextrose (D50w Syringe) 0 gm IV X1 PRN; Protocol PRN Reason: Hypoglycemia Ferrous Sulfate ([facility]ous Sulfate) [facility] Furosemide (Lasix) 40 mg IV BID@1000,1800 [facility] Last Admin: 11/26/19 02:28 Dose: 40 mg Documented by: Glucagon () 1 mg IM .X1 PRN PRN Reason: Hypoglycemia Guaifenesin (Robitussin) 10 ml PO Q4H PRN PRN PRN Reason: COUGH Hydralazine HCl (Apresoline Iv) 10 mg IV Q4H PRN PRN PRN Reason: SBP > 160 Last Admin: 11/26/19 01:12 Dose: 10 mg Documented by: Piperacillin Sod/Tazobactam (Sod 3.375 gm/ Sodium Chloride) 50 mls @ 12.5 mls/hr IV Q8 [facility] Last Admin: 11/26/19 06:02 Dose: 12.5 mls/hr Documented by: Vancomycin IV Pharmacy to Dose (1 ea/ Sodium Chloride) 500 mls @ 250 mls/hr IV X1 PRN; Protocol PRN Reason: Rx to Dose Sodium Chloride () 250 mls @ 15 mls/hr IV .[id number] PRN PRN Reason: Saline Flush Sodium Chloride () 250 mls @ 15 mls/hr IV .[id number] PRN PRN Reason: Additional IVPB Infusion Vancomycin HCl 1,250 mg/ (Sodium Chloride) 275 mls @ 167 mls/hr IV Q12H [facility] Insulin Human Lispro (Humalog Kwikpen (Bkc)) 0 unit SC Q6 [facility]; Protocol Last Admin: 11/26/19 06:03 Dose: Not Given Documented by: Magnesium Hydroxide (Milk Of Magnesia) 30 ml PO DAILY PRN PRN PRN Reason: Constipation Magnesium Oxide (Mag-Ox 400) 400 mg PO DAILY [facility] Melatonin (Melatonin) 3 mg PO QHS PRN PRN PRN Reason: INSOMNIA Morphine Sulfate () 2 mg IV Q3H PRN PRN PRN Reason: Pain Score 6-10/10 Nitroglycerin (Nitrostat) 0.4 mg SUBLINGUAL Q5M PRN PRN Reason: CARDIAC/CHEST PAIN Ondansetron HCl (Zofran) 4 mg IV Q8H PRN PRN PRN Reason: NAUSEA/VOMITING Oxycodone HCl (Oxyir) 5 mg PO Q4H PRN PRN PRN Reason: Pain Score 4-5/10 Potassium Chloride (K-Dur) 20 meq PO DAILY [facility] Prochlorperazine Edisylate (Compazine Iv) 5 mg IV Q4H PRN PRN PRN Reason: Breakthrough Nausea/Vomiting Psyllium Hydrophilic Mucilloid (Metamucil) 1 packet PO DAILY PRN PRN PRN Reason: Constipation Senna/Docusate Sodium (Senokot-S, Jaylyn-Colace) 2 tablet PO BID PRN PRN PRN Reason: Constipation Sodium Chloride () 10 - 40 ml IV UD PRN PRN Reason: SALINE FLUSH Last Admin: 11/26/19 03:54 Dose: 10 ml Documented by: Throat Lozenges (Cepacol Sore Throat Lozenge) 1 lozenge MUCOUS MEM Q2H PRN PRN PRN Reason: SORE THROAT Assessment/Plan Active and Suspected Problems (Last Reviewed 10/22/19 @ 14:54 by Shirley iHll NP-C) Hospital-acquired pneumonia (Acute) Acute respiratory failure (Acute) Sepsis (Acute) RECOMMENDATIONS: 1. Continue scheduled diuretic regimen as tolerated by hemodynamics and renal function. 2. Aggressive blood pressure control. 3. Encourage incentive spirometer use and mobilize patient as tolerated. 4. Nocturnal BiPAP therapy to be initiated per home regimen. 5. The patient is medically stable for transfer out of the intensive care unit. IMPRESSIONS: 1. Acute hypoxemic respiratory failure Appears to be secondary to decompensated heart failure with preserved ejection fraction along with hypertensive urgency, noted on presentation to the ED. Subsequent CTA failed to demonstrate evidence of a focal consolidation or infiltrate. Findings radiographically were more consistent with stigmata of CHF. BNP was also elevated to greater than 1000. The patient was diuresed overnight and BiPAP was utilized. Symptoms have improved significantly and the patient is now maintaining appropriate oxygen saturations on room air. Coronavirus PCR was negative. The patient remains afebrile. Accordingly, antibiotics can be discontinued from my perspective. I would recommend continuing diuretic therapy as tolerated by hemodynamics and renal function. Encourage incentive spirometer use while in bed and mobilize patient as tolerated. 2. Obstructive sleep apnea The patient recently completed a split-night sleep study which did reveal evidence of severe HERNÁN, for which nocturnal BiPAP therapy with a pressure support of / was recommended. 3. Chronic kidney disease/morbid obesity/diabetes mellitus/chronic anemia Complicates care, management, recovery and prognosis. Continue home medications as indicated. Physical therapy evaluation pending. This note was generated with [employer] dictation software. It may contain incorrect words, spelling, and punctuation that were not noted in checking the note before signing. Inpatient E&M: 72857 Init Hosp L3
[2019-11-26 06:15] LABS: Bedside Glucose 120 mg/dL (70-110)
[2019-11-26] MEDS: Ipratropium/Albuterol Sulfate 3 ML AMPUL.NEB INHALATION ×4 (07:07→19:19)
--- NOTE | 2019-11-26 07:16 | PN_ITS ---
Patient Problems: Active and Suspected Problems (Last Reviewed 10/22/19 @ 14:54 by LUCIANO De La Torre) Hospital-acquired pneumonia (Acute) Acute respiratory failure (Acute) Sepsis (Acute) Reason for Visit: Follow-up for acute hypoxic respiratory failure Objective: Patient shortness of breath is most controlled. Blood pressure is controlled. Blood pressure was high at time of admission 168/53. 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 Physical exam General: Alert, Oriented x3, Cooperative, morbidly obese HEENT: Atraumatic, PERRLA, EOMI, Normocephalic Oral: No Gingival or Mucosal Lesions/ Ulcerations Neck: Supple, No JVD, Negative Carotid Bruits Lungs: Air entry diminished in bilateral lung bases. Fine expiratory rhonchi present. No crepitation. Cardiovascular: Regular rate, Regular Rhythm, Normal S1, Normal S2, ejection systolic murmur present over aortic area Abdomen: Bowel Sounds Present, Soft, Non Tender, Non-Distended : No renal angle tenderness. No suprapubic tenderness. Extremities: Bilateral lower extremity lymphedema, Krunal wrap bandage on, Capillary Refill Less than 3 Seconds. Skin: No rashes, No breakdown Musculoskeletal: No Tenderness to Palpation of Joints or Extremities Neurological: Cranial nerves II-XII grossly intact, Deep Tendon Reflexes 2+/4 and Symmetrical, Neuro grossly intact Psych/Mental Status: Normal Affect, Appropriate Vitals/I&O's: Vital Signs Temp Pulse Resp BP Pulse Ox 98.9 F 89 22 H 128/50 H 100 11/26/19 04:00 11/26/19 07:00 11/26/19 07:00 11/26/19 07:00 11/26/19 07:00 Oxygen Flow Rate (L/min) 2 Oxygen Delivery Method Nasal Cannula Weight: 304 lb 3.806 oz Body Mass Index (BMI) 43.8 Intake and Output for Last 24 Hours 11/24/19 11/25/19 11/26/19 23:59 23:59 23:59 Intake Total 644 / 644 Output Total 1075 / 1075 Balance -431 / -431 Microbiology Past 72 Hours 11/26/19 00:40 Urine, Clean Catch Streptococcus pneumoniae Antigen (M - Final 11/26/19 00:40 Urine, Clean Catch Legionella Antigen - Final Laboratory Results 11/25/19 20:40: WBC 7.9, RBC 2.81 L, Hgb 9.0 L, Hct 28.7 L, MCV 102.1 H, MCH 32.0, MCHC 31.4 L, RDW Std Deviation 56.4 H, RDW Coeff of Inocencio 15.1 H, Plt Count 163, MPV 11.6, Immature Gran % (Auto) 0.400, Neut % (Auto) 74.6 H, Lymph % (Auto) 12.8 L, Cottle % (Auto) 6.1, Eos % (Auto) 5.8 H, Baso % (Auto) 0.3, A bsolute Neuts (auto) 5.9, Absolute Lymphs (auto) 1.01, Nucleated RBC % 0 11/25/19 20:40: Sodium 139, Potassium 4.0, Chloride 108 H, Carbon Dioxide 26.0, Anion Gap 5, BUN 35 H, Creatinine 1.81 H, Estim Creat Clear Calc 39.21, Est GFR (MDRD) Af Amer 48 L, Est GFR (MDRD) Non-Af 40 L, BUN/Creatinine Ratio 19.3, Glucose 131 H, Calcium 8.8, Magnesium 1.6, Troponin I < 0.015 11/25/19 20:40: B-Natriuretic Peptide 1370.3 H 11/25/19 20:40: Lactic Acid 1.2 11/25/19 20:40: Ferritin 884 H, Total Bilirubin 0.80, Direct Bilirubin 0.32 H, AST 24, ALT 17, Alkaline Phosphatase 143 H, Lactate Dehydrogenase 175, Total Creatine Kinase 38 L, C-React Prot Ext Range 49.90 H, Total Protein 8.6 H, Albumin 2.8 L, Globulin 5.8 H, TSH 2.31 11/25/19 21:13: Specimen Type ART, Sample Site R RADIAL, pH 7.24 L, Bicarbonate Actual 23.3, POC Total CO2 25, Base Excess -4 L, O2 Saturation 98, O2 % 50, ABG pCO2 54.1 H, ABG pO2 131 H, Mitul Test POS, O2 Delivery Device Vent Mask, Liter Flow 12.0, Blood Gas Notified Whom ED , Blood Gas Notified Time 211211/25/19 21:20: COVID-19 ([facility]OMEO) Not Detected 11/26/19 00:35: MRSA (PCR) Negative 11/26/19 00:50: Procalcitonin 0.11 H 11/26/19 00:50: Troponin I 0.028 11/26/19 01:02: POC Glucose 118 H 11/26/19 03:45: WBC 8.4, RBC 2.53 L, Hgb 8.1 L, Hct 25.9 L, MCV 102.4 H, MCH 32.0, MCHC 31.3 L, RDW Std Deviation 57.3 H, RDW Coeff of Inocencio 15.2 H, Plt Count 153, MPV 11.5, Immature Gran % (Auto) 0.600, Neut % (Auto) 84.5 H, Lymph % (Auto) 8.6 L, Cottle % (Auto) 5.6, Eos % (Auto) 0.6, Baso % (Auto) 0.1, Absolute Neuts (auto) 7.1, Absolute Lymphs (auto) 0.72 L, Nucleated RBC % 0 11/26/19 03:45: Sodium 138, Potassium 4.0, Chloride 107, Carbon Dioxide 24.0, Anion Gap 7, BUN 33 H, Creatinine 1.71 H, Estim Creat Clear Calc 41.50, Est GFR (MDRD) Af Amer 51 L, Est GFR (MDRD) Non-Af 42 L, BUN/Creatinine Ratio 19.3, Glucose 127 H, Calcium 8.4 L, Total Bilirubin 0.70, AST 21, ALT 14 L, Alkaline Phosphatase 118 H, Total Protein 7.4, Albumin 2.2 L, Globulin 5.2 H, Albumin/Globulin Ratio 0.4 L 11/26/19 03:45: Troponin I 0.043 11/26/19 06:00: Troponin I 0.055 H 11/26/19 06:02: POC Glucose 120 H Current Medications Acetaminophen (Tylenol) 650 mg PO Q6H PRN PRN PRN Reason: Pain Score 1-10/Temp > 100.7 F Al Hydroxide/Mg Hydroxide (Mylanta Ii) 30 ml PO Q6H PRN PRN PRN Reason: Gastric Burning Albuterol Sulfate (Ventolin Aerosols) 2.5 mg INHALATION Q2H PRN PRN PRN Reason: Dyspnea, wheezing Albuterol/Ipratropium (Duoneb) 3 ml INHALATION Q4HWA.RT DONNA Last Admin: 11/26/19 07:07 Dose: 3 ml Documented by: Allopurinol (Zyloprim) 300 mg PO DAILY [facility] Ascorbic Acid (Vitamin C) 500 mg PO DAILY@0800 [facility] Atorvastatin Calcium (Lipitor) 20 mg PO QHS [facility] Carvedilol (Coreg) 6.25 mg PO BID [facility] Dextrose (D50w Syringe) 0 gm IV X1 PRN; Protocol PRN Reason: Hypoglycemia Ferrous Sulfate (Ferrous Sulfate) 325 mg PO BIDCM [facility] Furosemide (Lasix) 40 mg IV BID@1000,1800 [facility] Last Admin: 11/26/19 02:28 Dose: 40 mg Documented by: Glucagon () 1 mg IM .X1 PRN PRN Reason: Hypoglycemia Guaifenesin (Robitussin) 10 ml PO Q4H PRN PRN PRN Reason: COUGH Hydralazine HCl (Apresoline Iv) 10 mg IV Q4H PRN PRN PRN Reason: SBP > 160 Last Admin: 11/26/19 01:12 Dose: 10 mg Documented by: Piperacillin Sod/Tazobactam (Sod 3.375 gm/ Sodium Chloride) 50 mls @ 12.5 mls/hr IV Q8 [facility] Last Admin: 11/26/19 06:02 Dose: 12.5 mls/hr Documented by: Sodium Chloride () 250 mls @ 15 mls/hr IV .[id number] PRN PRN Reason: Saline Flush Sodium Chloride () 250 mls @ 15 mls/hr IV .[id number] PRN PRN Reason: Additional IVPB Infusion Insulin Human Lispro (Humalog Kwikpen (Bkc)) 0 unit SC Q6 [facility]; Protocol Last Admin: 11/26/19 06:03 Dose: Not Given Documented by: Magnesium Hydroxide (Milk Of Magnesia) 30 ml PO DAILY PRN PRN PRN Reason: Constipation Magnesium Oxide (Mag-Ox 400) 400 mg PO DAILY [facility] Melatonin (Melatonin) 3 mg PO QHS PRN PRN PRN Reason: INSOMNIA Morphine Sulfate () 2 mg IV Q3H PRN PRN PRN Reason: Pain Score 6-10/10 Nitroglycerin (Nitrostat) 0.4 mg SUBLINGUAL Q5M PRN PRN Reason: CARDIAC/CHEST PAIN Ondansetron HCl (Zofran) 4 mg IV Q8H PRN PRN PRN Reason: NAUSEA/VOMITING Oxycodone HCl (Oxyir) 5 mg PO Q4H PRN PRN PRN Reason: Pain Score 4-5/10 Potassium Chloride (K-Dur) 20 meq PO DAILY [facility] Prochlorperazine Edisylate (Compazine Iv) 5 mg IV Q4H PRN PRN PRN Reason: Breakthrough Nausea/Vomiting Psyllium Hydrophilic Mucilloid (Metamucil) 1 packet PO DAILY PRN PRN PRN Reason: Constipation Senna/Docusate Sodium (Senokot-S, Jaylyn-Colace) 2 tablet PO BID PRN PRN PRN Reason: Constipation Sodium Chloride () 10 - 40 ml IV UD PRN PRN Reason: SALINE FLUSH Last Admin: 11/26/19 06:08 Dose: 10 ml Documented by: Throat Lozenges (Cepacol Sore Throat Lozenge) 1 lozenge MUCOUS MEM Q2H PRN PRN PRN Reason: SORE THROAT STROKE Vital Signs/Narrative: Vital Signs Temp Pulse Resp BP Pulse Ox 11/26/19 07:00 89 22 H 128/50 H 100 11/26/19 06:53 100 11/26/19 06:00 94 18 157/59 H 99 11/26/19 05:00 90 21 H 149/61 H 97 11/26/19 04:27 91 12 100 11/26/19 04:00 98.9 F 96 25 H 147/59 H 100 11/26/19 03:30 82 17 171/55 H 99 Medical Necessity - Tobacco Use Smoking Status: Light Smoker (<10/day) Tobacco Use: Cigars Assessment/Plan All Active Problems (Last Reviewed 10/22/19 @ 14:54 by Shirley Hill, CATALINA-C) Hospital-acquired pneumonia (Acute) Acute respiratory failure (Acute) Sepsis (Acute) Bacteremia (Acute) Ulcer of right lower extremity with fat layer exposed (Resolved) Cellulitis of left lower extremity (Acute) Septic shock (Acute) Septic shock (Acute) DEEPTI (acute kidney injury) (Acute) The patient is a 69 y/o M with history of obstructive sleep apnea with chronic bilateral lower extremity lymphedema is being admitted in ICU with sudden onset of shortness of breath, hypoxia with mild nonproductive cough, occasional loose stool and abdominal bloating for 3- times consistent with acute hypoxic respiratory failure 1. Acute hypoxic respiratory failure, multifactorial with acute on chronic diastolic heart failure, bilateral lower lobes atelectasis: Patient is on BiPAP. Initially, patient was started empirically antibiotic vancomycin and Zosyn were discontinued. CTA chest shows no PE but compressive atelectasis in right and left lung base with a small pleural effusion. On Lasix 40 mg IV twice daily. Sepsis ruled out. Blood cultures x2 are pending. Urinary antigens are negative. COVID-19 PCR and MRSA screen negative. CRP, ferritin and BNP elevated. procalcitonin 0.11, suggestive of low risk of infection. CK and LDH normal. Recent echo on 09/17/2019 shows EF 60%, mildly dilated RV, moderate aortic stenosis, moderately enlarged LA. 2. Chronic Kidney Disease Stage III possible diabetic nephropathy: Admission BUN/Cr 35/1.81, baseline renal function 1.6-1.7. BUN/creatinine stable 3. Chronic anemia/iron deficiency anemia: Admission hemoglobin 9.0, on iron supplement. 4. Diabetes mellitus type II with neuropathy: ADA diet, accu checks with Humalog sliding scale. A1c 5.5 in February 2017. Repeat A1c 5. Chronic bilateral lower extremity lymphedema: Krunal wraps, lower extremity elevation, on diuresis 6. HERNÁN: on BiPAP 7. Morbid Obesity: Weight loss and lifestyle changes encouraged, nutrition consulted. 8. DVT prophylaxis: SCDs, 9. CODE status: Patient POA for health is his sister. full CODE STATUS. Inpatient E&M: 23449 Subs Hosp L3
[2019-11-26] MEDS: Ferrous Sulfate 325 MG Tablet PO ×2 (08:22→16:29)
[2019-11-26] MEDS: Ascorbic Acid 500 MG Tablet PO (08:22)
--- NOTE | 2019-11-26 09:45 | CASEMGMT ---
RN CM Face to Face with patient for initial transition planning/care coordination assessment. RN CM introduced self and role at [facility]. Patient lying in bed, alert and oriented. Patient willing to participate in assessment and is able to answer all questions appropriately. Care providers, pharmacy, and demographics verified. Patient wishes to discharge home, with resumption of HHC, per chart patient was setup with [facility]. Patient states he has no further needs or concerns at this time. CM to follow for discharge planning needs that may arise. PCP: Kaylah Specialists: Claudy lab intern; Noe, wound Preferred Pharmacy: [facility] Insurance: [employer], [employer] Prescription Benefit: yes Living Will/HPOA: yes, sister Gretel Cope LNOK: sister Living Arrangements: Patient lives alone in an apartment elevator to enter. Patient states that he is independent at home. Transportation: [facility] van or sister DME/HHC: Patient states he has shower chair, raised toilet, rollator, grab bars, and cpap at home. If patient would need oxygen, prefers [employer]. Patient is established with [facility] for senior care. Updated clinical faxed to [facility]. Disposition Plan: Patient to discharge home with resumption of HHC, family support and follow-up plans in place. Cristina MARTINEZ, RN, CM
[2019-11-26] MEDS: Carvedilol 6.25 MG Tablet PO (10:01)
[2019-11-26] MEDS: Allopurinol 300 MG Tablet PO (10:02)
[2019-11-26] MEDS: Magnesium Oxide 400 MG Tablet PO (10:02)
[2019-11-26 11:50] LABS: Bedside Glucose 142 mg/dL (70-110)
[2019-11-26] MEDS: Atorvastatin Calcium 20 MG Tablet PO (21:23)
[2019-11-26 21:31] LABS: Bedside Glucose 127 mg/dL (70-110)
--- NOTE | 2019-11-26 23:01 | CT_ITS ---
STUDY: CTA CHEST REASON FOR EXAM: Male, 69 years old. DYSPNEA SUDDEN ONSET AT HOME, HX HTN, DIAB, STATS IN THE 80''S RADIATION DOSAGE (If Supplied By Facility): CTDIvol = ( 17.42 ) mGy, DLP = ( 587.74 ) mGycm TECHNIQUE: The examination was performed with the intravenous administration of IV 100mL [id number]-370. Post-processing of the angiographic images was performed, with multiplanar reformation and 3D reconstruction. Individualized dose optimization techniques were used for this CT. COMPARISON: None. FINDINGS: Normal enhancement of the main pulmonary artery and right and left pulmonary arteries. Normal enhancement of the bilateral peripheral pulmonary arteries. There is no demonstrated pulmonary embolism. There is prominence of the main pulmonary arteries and peripheral pulmonary arteries, consistent with congestive heart failure (CHF). Normal thoracic aorta and visualized great vessels. There is no demonstrated aortic dissection. Normal heart and pericardium. Normal mediastinum. Normal hilar regions. Normal visualized trachea and bronchi. Compressive atelectasis in the right and left lung bases. Normal pulmonary parenchyma. Small bilateral pleural effusions. Normal chest wall structures. Normal osseous structures. There is a single stone in the gallbladder measures 1.[address]/CTA Chest W/WO Contrast IMPRESSION: Congestive heart failure. No demonstrated pulmonary embolism or arterial dissection. Cholelithiasis. Electronically Signed: Vern Guzmán, at 2:01 EDT Tel , Service support ,
[2019-11-27] VITALS (10 sets, daily range): BP systolic 131–146; BP diastolic 56–58; PULSE 81–99; RESP 12–20; TEMP 36.8; O2SAT 91–96
[2019-11-27 00:01] LABS: Bedside Glucose 111 mg/dL (70-110)
[2019-11-27 06:38] LABS: Absolute Neutrophil Count 4.3 X10^3/uL (2.0-7.7); Basophil# 0.02 X10^3/uL; Basophil% 0.3 % (0-1); Eosinophil# 0.57 X10^3/uL; Eosinophils% 9.1 % (0-5); Hematocrit 24.6 % (40-54); Hemoglobin 7.6 g/dL (13.0-16.5); Lymphocyte % 14.4 % (19-41); Mean Corp Hgb Conc 30.9 g/dL (32-36); Mean Corpuscular Hgb 31.3 pg (27.0-32.0); Mean Corpuscular Volume 101.2 fL (80-94); Mean Platelet Vol. 12.2 fl (6.2-12.0); Monocyte% 6.4 % (0-10); NRBC Flagged by Analyzer 0 % (0-5); Neutrophil # 4.34 X10^3/uL (2.7-7.7); Neutrophil % 69.3 % (47-70); Platelet Count 150 K/mm3 (150-450); RBC Distribution Width CV 15.3 % (11.6-14.6); RBC Distribution Width SD 56.7 fl (35.1-43.9); Red Blood Count 2.43 M/mm3 (4.6-6.2); White Blood Count 6.3 K/mm3 (4.4-11.0)
[2019-11-27 07:03] LABS: Anion Gap 10 (5-15); BUN 33 mg/dL (7-18); BUN/Creat Ratio 18.4 RATIO (10-20); Calcium,Total 8.3 mg/dL (8.5-10.1); Chloride 106 mmol/L (98-107); Creatinine, Serum 1.79 mg/dL (0.70-1.30); EST Glomerular Filtration Rate 40 mL/min (>60); Est Glom Filt Rate - Afr Amer 48 mL/min (>60); Estimated Creatinine Clearance 39.65 ml/min; Glucose 112 mg/dL (74-106); Potassium 3.7 mmol/L (3.5-5.1); Sodium Level 139 mmol/L (136-145)
[2019-11-27 07:11] LABS: Bedside Glucose 121 mg/dL (70-110)
[2019-11-27 07:36] LABS: Hemoglobin A1c 5.5 % (3.8-5.6)
[2019-11-27] MEDS: Ipratropium/Albuterol Sulfate 3 ML AMPUL.NEB INHALATION ×2 (07:56→11:17)
--- NOTE | 2019-11-27 08:01 | PCM.PN.PUL ---
Subjective: The patient was seen and examined at the bedside this morning. Events from the last 24 hours have been reviewed. The patient is currently afebrile, hemodynamically stable and maintaining appropriate oxygen saturations on room air. The patient did have some elevated blood pressures noted overnight. The patient does report overall improvement in his shortness of breath. Objective: The patient's most recent lab work, culture data and imaging studies have all been personally reviewed. Infectious work-up has been unrevealing to date. - Physical Exam Vitals/I&O's: Vital Signs Temp Pulse Resp BP Pulse Ox 98.2 F 92 15 146/58 H 94 11/27/19 03:44 11/27/19 04:00 11/27/19 05:00 11/27/19 03:44 11/27/19 03:44 Oxygen Flow Rate (L/min) 3 Oxygen Delivery Method Room Air Weight: 306 lb 14.135 oz Body Mass Index (BMI) 43.8 Intake and Output for Last 24 Hours 11/25/19 11/26/19 11/27/19 23:59 23:59 23:59 Intake Total 50 / 50 1674 / 1674 100 / 100 Output Total 2450 / 2450 325 / 325 Balance 50 / 50 -776 / -776 -225 / -225 General: Alert, Cooperative, No apparent distress, - - Sitting in bedside recliner. HEENT: Atraumatic, PERRLA, Normocephalic Oral: No Gingival or Mucosal Lesions/ Ulcerations Neck: Supple, No Nodes, Trachea Midline Lungs: No rhonchi, No wheeze, No rales, Diminished Cardiovascular: Regular rate, Regular Rhythm, Murmur Abdomen: Bowel Sounds Present, Soft, Non Tender, Obese Extremities: No clubbing, No cyanosis, - - Bilateral lower extremity lymphedema Skin: - - No significant change from previous. Musculoskeletal: No Tenderness to Palpation of Joints or Extremities, No Muscle Wasting Lymphatic: No Cervical, Supraclavicular, or Inguinal Adenopathy Neurological: Cranial nerves II-XII grossly intact, Neuro grossly intact Psych/Mental Status: Normal Affect, Appropriate Labs (Last 48 Hours) 11/25/19 11/25/19 11/25/19 20:40 20:40 20:40 WBC 7.9 RBC 2.81 L Hgb 9.0 L Hct 28.7 L MCV 102.1 H MCH 32.0 MCHC 31.4 L RDW Std Deviation 56.4 H RDW Coeff of Inocencio 15.1 H Plt Count 163 MPV 11.6 Immature Gran % (Auto) 0.400 Neut % (Auto) 74.6 H Lymph % (Auto) 12.8 L [place] % (Auto) 6.1 Eos % (Auto) 5.8 H Baso % (Auto) 0.3 Absolute Neuts (auto) 5.9 Absolute Lymphs (auto) 1.01 Nucleated RBC % 0 Specimen Type Sample Site pH Bicarbonate Actual POC Total CO2 Base Excess O2 Saturation O2 % ABG pCO2 ABG pO2 Mitul Test O2 Delivery Device Liter Flow Blood Gas Notified Whom Blood Gas Notified Time Sodium 139 Potassium 4.0 Chloride 108 H Carbon Dioxide 26.0 Anion Gap 5 BUN 35 H Creatinine 1.81 H Estim Creat Clear Calc 39.21 Est GFR (MDRD) Af Amer 48 L Est GFR (MDRD) Non-Af 40 L BUN/Creatinine Ratio 19.3 Glucose 131 H Hemoglobin A1c Lactic Acid Calcium 8.8 Magnesium 1.6 Ferritin Total Bilirubin Direct Bilirubin AST ALT Alkaline Phosphatase Lactate Dehydrogenase Total Creatine Kinase Troponin I < 0.015 C-React Prot Ext Range B-Natriuretic Peptide 1370.3 H Total Protein Albumin Globulin Albumin/Globulin Ratio Procalcitonin TSH COVID-19 ([facility]) MRSA (PCR) POC Glucose 11/25/19 11/25/19 11/25/19 20:40 20:40 21:13 WBC RBC Hgb Hct MCV MCH MCHC RDW Std Deviation RDW Coeff of Inocencio Plt Count MPV Immature Gran % (Auto) Neut % (Auto) Lymph % (Auto) [place] % (Auto) Eos % (Auto) Baso % (Auto) Absolute Neuts (auto) Absolute Lymphs (auto) Nucleated RBC % Specimen Type ART Sample Site R RADIAL pH 7.24 L Bicarbonate Actual 23.3 POC Total CO2 25 Base Excess -4 L O2 Saturation 98 O2 % 50 ABG pCO2 54.1 H ABG pO2 131 H Mitul Test POS O2 Delivery Device Vent Mask Liter Flow 12.0 Blood Gas Notified Whom ED Blood Gas Notified Time 2112 Sodium Potassium Chloride Carbon Dioxide Anion Gap BUN Creatinine Estim Creat Clear Calc Est GFR (MDRD) Af Amer Est GFR (MDRD) Non-Af BUN/Creatinine Ratio Glucose Hemoglobin A1c Lactic Acid 1.2 Calcium Magnesium Ferritin 884 H Total Bilirubin 0.80 Direct Bilirubin 0.32 H AST 24 ALT 17 Alkaline Phosphatase 143 H Lactate Dehydrogenase 175 Total Creatine Kinase 38 L Troponin I C-React Prot Ext Range 49.90 H B-Natriuretic Peptide Total Protein 8.6 H Albumin 2.8 L Globulin 5.8 H Albumin/Globulin Ratio Procalcitonin TSH 2.31 COVID-19 ([facility]) MRSA (PCR) POC Glucose 11/25/19 11/26/19 11/26/19 21:20 00:35 00:50 WBC RBC Hgb Hct MCV MCH MCHC RDW Std Deviation RDW Coeff of Inocencio Plt Count MPV Immature Gran % (Auto) Neut % (Auto) Lymph % (Auto) [place] % (Auto) Eos % (Auto) Baso % (Auto) Absolute Neuts (auto) Absolute Lymphs (auto) Nucleated RBC % Specimen Type Sample Site pH Bicarbonate Actual POC Total CO2 Base Excess O2 Saturation O2 % ABG pCO2 ABG pO2 Mitul Test O2 Delivery Device Liter Flow Blood Gas Notified Whom Blood Gas Notified Time Sodium Potassium Chloride Carbon Dioxide Anion Gap BUN Creatinine Estim Creat Clear Calc Est GFR (MDRD) Af Amer Est GFR (MDRD) Non-Af BUN/Creatinine Ratio Glucose Hemoglobin A1c Lactic Acid Calcium Magnesium Ferritin Total Bilirubin Direct Bilirubin AST ALT Alkaline Phosphatase Lactate Dehydrogenase Total Creatine Kinase Troponin I C-React Prot Ext Range B-Natriuretic Peptide Total Protein Albumin Globulin Albumin/Globulin Ratio Procalcitonin 0.11 H TSH COVID-19 ([facility]) Not Detected MRSA (PCR) Negative POC Glucose 11/26/19 11/26/19 11/26/19 00:50 01:02 03:45 WBC 8.4 RBC 2.53 L Hgb 8.1 L Hct 25.9 L MCV 102.4 H MCH 32.0 MCHC 31.3 L RDW Std Deviation 57.3 H RDW Coeff of Inocencio 15.2 H Plt Count 153 MPV 11.5 Immature Gran % (Auto) 0.600 Neut % (Auto) 84.5 H Lymph % (Auto) 8.6 L [place] % (Auto) 5.6 Eos % (Auto) 0.6 Baso % (Auto) 0.1 Absolute Neuts (auto) 7.1 Absolute Lymphs (auto) 0.72 L Nucleated RBC % 0 Specimen Type Sample Site pH Bicarbonate Actual POC Total CO2 Base Excess O2 Saturation O2 % ABG pCO2 ABG pO2 Mitul Test O2 Delivery Device Liter Flow Blood Gas Notified Whom Blood Gas Notified Time Sodium Potassium Chloride Carbon Dioxide Anion Gap BUN Creatinine Estim Creat Clear Calc Est GFR (MDRD) Af Amer Est GFR (MDRD) Non-Af BUN/Creatinine Ratio Glucose Hemoglobin A1c Lactic Acid Calcium Magnesium Ferritin Total Bilirubin Direct Bilirubin AST ALT Alkaline Phosphatase Lactate Dehydrogenase Total Creatine Kinase Troponin I 0.028 C-React Prot Ext Range B-Natriuretic Peptide Total Protein Albumin Globulin Albumin/Globulin Ratio Procalcitonin TSH COVID-19 ([facility]) MRSA (PCR) POC Glucose 118 H 11/26/19 11/26/19 11/26/19 03:45 03:45 06:00 WBC RBC Hgb Hct MCV MCH MCHC RDW Std Deviation RDW Coeff of Inocencio Plt Count MPV Immature Gran % (Auto) Neut % (Auto) Lymph % (Auto) [place] % (Auto) Eos % (Auto) Baso % (Auto) Absolute Neuts (auto) Absolute Lymphs (auto) Nucleated RBC % Specimen Type Sample Site pH Bicarbonate Actual POC Total CO2 Base Excess O2 Saturation O2 % ABG pCO2 ABG pO2 Mitul Test O2 Delivery Device Liter Flow Blood Gas Notified Whom Blood Gas Notified Time Sodium 138 Potassium 4.0 Chloride 107 Carbon Dioxide 24.0 Anion Gap 7 BUN 33 H Creatinine 1.71 H Estim Creat Clear Calc 41.50 Est GFR (MDRD) Af Amer 51 L Est GFR (MDRD) Non-Af 42 L BUN/Creatinine Ratio 19.3 Glucose 127 H Hemoglobin A1c Lactic Acid Calcium 8.4 L Magnesium Ferritin Total Bilirubin 0.70 Direct Bilirubin AST 21 ALT 14 L Alkaline Phosphatase 118 H Lactate Dehydrogenase Total Creatine Kinase Troponin I 0.043 0.055 H C-React Prot Ext Range B-Natriuretic Peptide Total Protein 7.4 Albumin 2.2 L Globulin 5.2 H Albumin/Globulin Ratio 0.4 L Procalcitonin TSH COVID-19 ([facility]) MRSA (PCR) POC Glucose 11/26/19 11/26/19 11/26/19 06:02 11:43 16:26 WBC RBC Hgb Hct MCV MCH MCHC RDW Std Deviation RDW Coeff of Inocencio Plt Count MPV Immature Gran % (Auto) Neut % (Auto) Lymph % (Auto) [place] % (Auto) Eos % (Auto) Baso % (Auto) Absolute Neuts (auto) Absolute Lymphs (auto) Nucleated RBC % Specimen Type Sample Site pH Bicarbonate Actual POC Total CO2 Base Excess O2 Saturation O2 % ABG pCO2 ABG pO2 Mitul Test O2 Delivery Device Liter Flow Blood Gas Notified Whom Blood Gas Notified Time Sodium Potassium Chloride Carbon Dioxide Anion Gap BUN Creatinine Estim Creat Clear Calc Est GFR (MDRD) Af Amer Est GFR (MDRD) Non-Af BUN/Creatinine Ratio Glucose Hemoglobin A1c Lactic Acid Calcium Magnesium Ferritin Total Bilirubin Direct Bilirubin AST ALT Alkaline Phosphatase Lactate Dehydrogenase Total Creatine Kinase Troponin I C-React Prot Ext Range B-Natriuretic Peptide Total Protein Albumin Globulin Albumin/Globulin Ratio Procalcitonin TSH COVID-19 ([facility]) MRSA (PCR) POC Glucose 120 H 142 H 127 H 11/26/19 11/27/19 11/27/19 23:51 06:14 06:14 WBC 6.3 RBC 2.43 L Hgb 7.6 L Hct 24.6 L MCV 101.2 H MCH 31.3 MCHC 30.9 L RDW Std Deviation 56.7 H RDW Coeff of Inocencio 15.3 H Plt Count 150 MPV 12.2 H Immature Gran % (Auto) 0.500 Neut % (Auto) 69.3 Lymph % (Auto) 14.4 L [place] % (Auto) 6.4 Eos % (Auto) 9.1 H Baso % (Auto) 0.3 Absolute Neuts (auto) 4.3 Absolute Lymphs (auto) 0.90 Nucleated RBC % 0 Specimen Type Sample Site pH Bicarbonate Actual POC Total CO2 Base Excess O2 Saturation O2 % ABG pCO2 ABG pO2 Mitul Test O2 Delivery Device Liter Flow Blood Gas Notified Whom Blood Gas Notified Time Sodium 139 Potassium 3.7 Chloride 106 Carbon Dioxide 23.0 Anion Gap 10 BUN 33 H Creatinine 1.79 H Estim Creat Clear Calc 39.65 Est GFR (MDRD) Af Amer 48 L Est GFR (MDRD) Non-Af 40 L BUN/Creatinine Ratio 18.4 Glucose 112 H Hemoglobin A1c Lactic Acid Calcium 8.3 L Magnesium Ferritin Total Bilirubin Direct Bilirubin AST ALT Alkaline Phosphatase Lactate Dehydrogenase Total Creatine Kinase Troponin I C-React Prot Ext Range B-Natriuretic Peptide Total Protein Albumin Globulin Albumin/Globulin Ratio Procalcitonin TSH COVID-19 ([facility]) MRSA (PCR) POC Glucose 111 H 11/27/19 11/27/19 06:14 06:56 WBC RBC Hgb Hct MCV MCH MCHC RDW Std Deviation RDW Coeff of Inocencio Plt Count MPV Immature Gran % (Auto) Neut % (Auto) Lymph % (Auto) [place] % (Auto) Eos % (Auto) Baso % (Auto) Absolute Neuts (auto) Absolute Lymphs (auto) Nucleated RBC % Specimen Type Sample Site pH Bicarbonate Actual POC Total CO2 Base Excess O2 Saturation O2 % ABG pCO2 ABG pO2 Mitul Test O2 Delivery Device Liter Flow Blood Gas Notified Whom Blood Gas Notified Time Sodium Potassium Chloride Carbon Dioxide Anion Gap BUN Creatinine Estim Creat Clear Calc Est GFR (MDRD) Af Amer Est GFR (MDRD) Non-Af BUN/Creatinine Ratio Glucose Hemoglobin A1c 5.5 Lactic Acid Calcium Magnesium Ferritin Total Bilirubin Direct Bilirubin AST ALT Alkaline Phosphatase Lactate Dehydrogenase Total Creatine Kinase Troponin I C-React Prot Ext Range B-Natriuretic Peptide Total Protein Albumin Globulin Albumin/Globulin Ratio Procalcitonin TSH COVID-19 ([facility]) MRSA (PCR) POC Glucose 121 H Microbiology 11/26/19 00:40 Urine, Clean Catch Streptococcus pneumoniae Antigen (M - Final 11/26/19 00:40 Urine, Clean Catch Legionella Antigen - Final Clinical Impression(s) from Imaging Studies Chest X-Ray 11/25/19 20:50 IMPRESSION: Worsening bilateral pulmonary opacities, pneumonia and/or pulmonary venous congestion, atypical viral pneumonia cannot be excluded Stable mild cardiomegaly Electronically Signed: José Baptiste, at 21:18 EDT Tel , Service support , Chest CTA 11/26/19 23:01 IMPRESSION: Congestive heart failure. No demonstrated pulmonary embolism or arterial dissection. Cholelithiasis. Electronically Signed: Vern Guzmán, at 2:01 EDT Tel , Service support , Current Medications Acetaminophen (Tylenol) 650 mg PO Q6H PRN PRN PRN Reason: Pain Score 1-10/Temp > 100.7 F Al Hydroxide/Mg Hydroxide (Mylanta Ii) 30 ml PO Q6H PRN PRN PRN Reason: Gastric Burning Albuterol Sulfate (Ventolin Aerosols) 2.5 mg INHALATION Q2H PRN PRN PRN Reason: Dyspnea, wheezing Albuterol/Ipratropium (Duoneb) 3 ml INHALATION Q4HWA.RT [facility] Last Admin: 11/27/19 07:56 Dose: 3 ml Documented by: Allopurinol (Zyloprim) 300 mg PO DAILY [facility] Last Admin: 11/26/19 10:02 Dose: 300 mg Documented by: Ascorbic Acid (Vitamin C) 500 mg PO DAILY@0800 [facility] Last Admin: 11/26/19 08:22 Dose: 500 mg Documented by: Atorvastatin Calcium (Lipitor) 20 mg PO QHS [facility] Last Admin: 11/26/19 21:23 Dose: 20 mg Documented by: Carvedilol (Coreg) 6.25 mg PO BID [facility] Last Admin: 11/26/19 18:56 Dose: Not Given Documented by: Dextrose (D50w Syringe) 0 gm IV X1 PRN; Protocol PRN Reason: Hypoglycemia Enoxaparin Sodium (Lovenox) 40 mg SC BID [facility] Ferrous Sulfate (Ferrous Sulfate) [facility] Last Admin: 11/26/19 16:29 Dose: 325 mg Documented by: Furosemide (Lasix) 40 mg IV BID@1000,1800 [facility] Last Admin: 11/26/19 17:59 Dose: 40 mg Documented by: Glucagon () 1 mg IM .X1 PRN PRN Reason: Hypoglycemia Guaifenesin (Robitussin) 10 ml PO Q4H PRN PRN PRN Reason: COUGH Hydralazine HCl (Apresoline Iv) 10 mg IV Q4H PRN PRN PRN Reason: SBP > 160 Last Admin: 11/26/19 01:12 Dose: 10 mg Documented by: Sodium Chloride () 250 mls @ 15 mls/hr IV .[id number] PRN PRN Reason: Saline Flush Sodium Chloride () 250 mls @ 15 mls/hr IV .[id number] PRN PRN Reason: Additional IVPB Infusion Insulin Human Lispro (Humalog Kwikpen (Bkc)) 0 unit SC Q6 [facility]; Protocol Last Admin: 11/27/19 07:01 Dose: Not Given Documented by: Magnesium Hydroxide (Milk Of Magnesia) 30 ml PO DAILY PRN PRN PRN Reason: Constipation Magnesium Oxide (Mag-Ox 400) 400 mg PO DAILY [facility] Last Admin: 11/26/19 10:02 Dose: 400 mg Documented by: Nitroglycerin (Nitrostat) 0.4 mg SUBLINGUAL Q5M PRN PRN Reason: CARDIAC/CHEST PAIN Ondansetron HCl (Zofran) 4 mg IV Q8H PRN PRN PRN Reason: NAUSEA/VOMITING Potassium Chloride (K-Dur) 20 meq PO DAILY [facility] Last Admin: 11/26/19 10:02 Dose: 20 meq Documented by: Prochlorperazine Edisylate (Compazine Iv) 5 mg IV Q4H PRN PRN PRN Reason: Breakthrough Nausea/Vomiting Psyllium Hydrophilic Mucilloid (Metamucil) 1 packet PO DAILY PRN PRN PRN Reason: Constipation Senna/Docusate Sodium (Senokot-S, Jaylyn-Colace) 2 tablet PO BID PRN PRN PRN Reason: Constipation Sodium Chloride () 10 - 40 ml IV UD PRN PRN Reason: SALINE FLUSH Last Admin: 11/26/19 17:59 Dose: 20 ml Documented by: Throat Lozenges (Cepacol Sore Throat Lozenge) 1 lozenge MUCOUS MEM Q2H PRN PRN PRN Reason: SORE THROAT Medical Necessity - Tobacco Use Smoking Status: Light Smoker (<10/day) Tobacco Use: Cigars Assessment/Plan All Active Problems (Last Reviewed 10/22/19 @ 14:54 by Shirley Hill NP-C) Hospital-acquired pneumonia (Acute) Acute respiratory failure (Acute) Sepsis (Acute) Pulmonary vascular congestion (Acute) Bacteremia (Acute) Ulcer of right lower extremity with fat layer exposed (Resolved) Cellulitis of left lower extremity (Acute) Septic shock (Acute) Septic shock (Acute) DEEPTI (acute kidney injury) (Acute) RECOMMENDATIONS: 1. Continue scheduled diuretic regimen as tolerated by hemodynamics and renal function. 2. Aggressive blood pressure control. 3. Encourage incentive spirometer use and mobilize patient as tolerated. 4. Continue nocturnal BiPAP therapy. 5. As the patient is without further ICU or pulmonary needs, will sign off. Please call with any additional questions. The patient should keep his follow-up appointment with Dr. Cash in January. IMPRESSIONS: 1. Acute hypoxemic respiratory failure Resolved. Appears to be secondary to decompensated heart failure with preserved ejection fraction along with hypertensive urgency, noted on presentation to the ED. Subsequent CTA failed to demonstrate evidence of a focal consolidation or infiltrate. Findings radiographically were more consistent with stigmata of CHF. BNP was also elevated to greater than 1000. The patient was diuresed and BiPAP was utilized. Symptoms have improved significantly and the patient is now maintaining appropriate oxygen saturations on room air. Coronavirus PCR was negative. The patient remains afebrile. I would recommend continuing diuretic therapy as tolerated by hemodynamics and renal function. Encourage incentive spirometer use while in bed and mobilize patient as tolerated. 2. Obstructive sleep apnea The patient recently completed a split-night sleep study which did reveal evidence of severe HENRÁN, for which nocturnal BiPAP therapy with a pressure support of 25/21 was recommended. Continue nocturnal BiPAP therapy as ordered. Follow-up in the pulmonary medicine clinic as scheduled in January. 3. Chronic kidney disease/morbid obesity/diabetes mellitus/chronic anemia Complicates care, management, recovery and prognosis. Continue home medications as indicated. This note was generated with [employer] dictation software. It may contain incorrect words, spelling, and punctuation that were not noted in checking the note before signing. Inpatient E&M: 58100 Subs Hosp L2
[2019-11-27] MEDS: Carvedilol 6.25 MG Tablet PO (09:40)
[2019-11-27] MEDS: Allopurinol 300 MG Tablet PO (09:41)
[2019-11-27] MEDS: Furosemide 40 MG/4 ML Vial IV (09:41)
[2019-11-27] MEDS: Ascorbic Acid 500 MG Tablet PO (09:41)
[2019-11-27] MEDS: Magnesium Oxide 400 MG Tablet PO (09:41)
[2019-11-27] MEDS: Ferrous Sulfate 325 MG Tablet PO (09:41)
[2019-11-27] MEDS: Enoxaparin 40 MG/0.4 ML Syringe SC (09:42)
--- NOTE | 2019-11-27 10:12 | DCINST_ITS ---
- Discharge Diagnoses Current Active Problems: Current Active and Chronic Problems (Last Reviewed 10/22/19 @ 14:54 by LUCIANO De La Torre) Hospital-acquired pneumonia (Acute) Acute respiratory failure (Acute) CKD (chronic kidney disease), stage III (Chronic) Morbid obesity (Chronic) Chronic acquired lymphedema (Chronic) Sepsis (Acute) Pulmonary vascular congestion (Acute) Obesity (Chronic) Ulcer of left lower extremity with fat layer exposed (Chronic) Lymphedema of both lower extremities (Chronic) You will use the following diet at home:: Calorie/Carbohydrate Controlled (specify 1200, 1400, etc), Cardiac Your food should be the consistency of: Regular Your liquids should be the consistency of: Regular/Thin Discharge Activity: May Not Drive Call your doctor if you observe: Fever of 101 or Higher, Numbness or Tingling, Change in Color, Inability to urinate, Inability to have a bowel movement, Shortness of breath, Dizziness, Fainting spells, Swelling in the ankles, Chest pain, Prolonged hiccoughing, Increased palpitations (irregular heartbeat), Calf discomfort, Uncontrolled pain Allergies/Adverse Reactions: Allergies No Known Allergies Allergy (Verified 11/25/19 20:10) Medications to take at Discharge Ascorbic Acid [Vitamin C] 500 mg PO DAILY@0800 03/08/17 Magnesium 500 mg PO DAILY 03/08/17 allopurinol 300 mg tablet 300 mg PO DAILY 08/23/19 cholecalciferol (vitamin D3) 125 mcg (5,000 unit) capsule 125 mcg PO DAILY 08/23/19 cyanocobalamin (vitamin B-12) 1,000 mcg capsule 1,000 mcg PO DAILY 08/24/19 omega-3 fatty acids 1,000 mg capsule 1,000 mg PO DAILY 08/24/19 Multivitamin with Minerals [Multiple Vitamin] 1 tab PO DAILY 10/06/19 Simvastatin 40 mg PO QHS 10/06/19 potassium chloride 20 mEq tablet,extended release 20 meq PO DAILY 10/22/19 Carvedilol [Coreg (Beta [address])] 6.25 mg PO BID #0 11/27/19 Ferrous Sulfate 325 mg PO DAILY #0 11/27/19 Furosemide [Lasix] 40 mg PO BID #60 tab 11/27/19 The following prescriptions were given: Furosemide [Lasix] 40 mg PO BID #60 tab Primary Care Physician: Han Adrian MD [Primary Care Provider] - Please follow up with your Primary Care Physician in: in 2 weeks Test Results: Test results from this visit will be discussed in further detail at your follow- up appointment, if applicable. Please Follow Up With: Lito Loco MD When: in 4 weeks Please Follow Up With: Antonio Boogie DO When: in 4-6 weeks
--- NOTE | 2019-11-27 10:17 | DS.PCM_ITS ---
Discharge Date and Diagnosis - Problem List Patient Problems: Active and Suspected Problems (Last Reviewed 10/22/19 @ 14:54 by LUCIANO De La Torre) Hospital-acquired pneumonia (Acute) Acute respiratory failure (Acute) Sepsis (Acute) Pulmonary vascular congestion (Acute) Date of Admission: 11/25/19 Date of Discharge: 11/27/19 - Primary Discharge Diagnosis Acute Problems: Active Problems (Last Reviewed 10/22/19 @ 14:54 by LUCIANO De La Torre) Hospital-acquired pneumonia (Acute) Acute respiratory failure (Acute) Sepsis (Acute) Pulmonary vascular congestion (Acute) - Secondary Discharge Diagnosis Chronic Problems: Chronic Problems (Last Reviewed 10/22/19 @ 14:54 by LUCIANO De La Torre) CKD (chronic kidney disease), stage III (Chronic) Morbid obesity (Chronic) Chronic acquired lymphedema (Chronic) Obesity (Chronic) HERNÁN (obstructive sleep apnea) (Chronic) Ulcer of left lower extremity with fat layer exposed (Chronic) Lymphedema of both lower extremities (Chronic) Ulcer of left foot (Chronic) Cardiac murmur (Chronic) Stage 2 chronic kidney disease (Chronic) Essential hypertension (Chronic) Anemia (Chronic) Gout (Chronic) Type 2 diabetes mellitus (Chronic) Iron deficiency anemia (Chronic) Hyperlipidemia (Chronic) Hospital Course and Treatment Operations: None Summary of Care Provided: [] The patient is a 69 y/o M with history of obstructive sleep apnea with chronic bilateral lower extremity lymphedema is being admitted in ICU with sudden onset of shortness of breath, hypoxia with mild nonproductive cough, occasional loose stool and abdominal bloating for 3- times consistent with acute hypoxic respiratory failure 1. Acute hypoxic respiratory failure, multifactorial with acute on chronic diastolic heart failure, bilateral lower lobes atelectasis: Patient is on BiPAP. Initially, patient was started empirically antibiotic vancomycin and Zosyn were discontinued. CTA chest shows no PE but compressive atelectasis in right and left lung base with a small pleural effusion. On Lasix 40 mg IV twice daily. Sepsis ruled out. Blood cultures x2 are pending for 48 hours. Urinary antigens are negative. COVID-19 PCR and MRSA screen negative. CRP, ferritin and BNP elevated. procalcitonin 0.11, suggestive of low risk of infection. CK and LDH normal. Recent echo on 09/17/2019 shows EF 60%, mildly dilated RV, moderate aortic stenosis, moderately enlarged LA. Patient is discharged on Lasix 40 mg twice daily for 5 days and then once daily. On once daily dose, he was educated to take an additional 40 mg dose in the afternoon if you have increased swelling or weight gain greater than 3 pounds in 1 day or 5 pounds in 1 week. 2. Chronic Kidney Disease Stage III possible diabetic nephropathy: Admission BUN/Cr 35/1.81, baseline renal function 1.6-1.7. BUN/creatinine stable 3. Anemia of chronic anemia/iron deficiency anemia: Drop in H&H due to Lovenox given for DVT prophylaxis. Lovenox discontinued.Admission hemoglobin 9.0, dropped to 7.6%. On iron supplement and vitamin B12. Advised to follow-up PCP in 1 week with repeat CBC. No external bleeding, including hematuria, hematemesis or melena except a small tinge of blood in the sputum yesterday 4. Diabetes mellitus type II with neuropathy: ADA diet, accu checks with Humalog sliding scale. A1c 5.5 in February 2017. Repeat A1c 5.5 5. Chronic bilateral lower extremity lymphedema: Krunal wraps, lower extremity elevation, on diuresis 6. HERNÁN: on BiPAP 7. Morbid Obesity: Weight loss and lifestyle changes encouraged, nutrition consulted. 8. DVT prophylaxis: SCDs, 9. CODE status: Patient POA for health is his sister. full CODE STATUS. Discharge medication reconciliation done. Discharge follow-up instructions completed. Discharge process discussed with the patient and all questions were answered to patient's satisfaction. [facility] Pharmacy was directly called for pre scription for Lasix. Total time spent, exact 35 minutes on discharge meds reconciliation, examination, coordination of care with nurses and ancillary staff, review of imaging and blood test and discussion with the patient on follow-up instructions Patient Problems: Active and Suspected Problems (Last Reviewed 10/22/19 @ 14:54 by Shirley Hill NP-C) Hospital-acquired pneumonia (Acute) Acute respiratory failure (Acute) Sepsis (Acute) Pulmonary vascular congestion (Acute) Objective: Heart rate and blood pressure controlled. Pulse ox 95% on room air. No tachypnea or hypoxia. On rn cardiac cath normal sinus rhythm. Physical exam General: Alert, Oriented x3, Cooperative, morbidly obese HEENT: Atraumatic, PERRLA, EOMI, Normocephalic Oral: No Gingival or Mucosal Lesions/ Ulcerations Neck: Supple, No JVD, Negative Carotid Bruits Lungs: Air entry diminished in bilateral lung bases. No rhonchi, tachypnea or hypoxia. No crepitation. Cardiovascular: Regular rate, Regular Rhythm, Normal S1, Normal S2, ejection systolic murmur present over aortic area Abdomen: Bowel Sounds Present, Soft, Non Tender, Non-Distended : No renal angle tenderness. No suprapubic tenderness. Extremities: Bilateral lower extremity lymphedema has improved, Krunal wrap bandage on, Capillary Refill Less than 3 Seconds. Skin: No rashes, No breakdown Musculoskeletal: No Tenderness to Palpation of Joints or Extremities Neurological: Cranial nerves II-XII grossly intact, Deep Tendon Reflexes 2+/4 and Symmetrical, Neuro grossly intact Psych/Mental Status: Normal Affect, Appropriate - Physical Exam Vitals/I&O's: Vital Signs Temp Pulse Resp BP Pulse Ox 98.3 F 99 16 131/56 H 95 11/27/19 09:35 11/27/19 09:35 11/27/19 09:35 11/27/19 09:35 11/27/19 09:35 Oxygen Flow Rate (L/min) 3 Oxygen Delivery Method Room Air Weight: 306 lb 14.135 oz Body Mass Index (BMI) 43.8 Intake and Output for Last 24 Hours 11/25/19 11/26/19 11/27/19 23:59 23:59 23:59 Intake Total 50 / 50 1674 / 1674 100 / 100 Output Total 2450 / 2450 325 / 325 Balance 50 / 50 -776 / -776 -225 / -225 Microbiology Past 72 Hours 11/26/19 00:40 Urine, Clean Catch Streptococcus pneumoniae Antigen (M - Final 11/26/19 00:40 Urine, Clean Catch Legionella Antigen - Final Laboratory Results 11/26/19 00:50: Vitamin B12 Pending 11/26/19 11:43: POC Glucose 142 H 11/26/19 16:26: POC Glucose 127 H 11/26/19 23:51: POC Glucose 111 H 11/27/19 06:14: WBC 6.3, RBC 2.43 L, Hgb 7.6 L, Hct 24.6 L, MCV 101.2 H, MCH 31.3, MCHC 30.9 L, RDW Std Deviation 56.7 H, RDW Coeff of Inocencio 15.3 H, Plt Count 150, MPV 12.2 H, Immature Gran % (Auto) 0.500, Neut % (Auto) 69.3, Lymph % (Auto) 14.4 L, Walker % (Auto) 6.4, Eos % (Auto) 9.1 H, Baso % (Auto) 0.3, Absolute Neuts (auto) 4.3, Absolute Lymphs (auto) 0.90, Nucleated RBC % 0 11/27/19 06:14: Sodium 139, Potassium 3.7, Chloride 106, Carbon Dioxide 23.0, Anion Gap 10, BUN 33 H, Creatinine 1.79 H, Estim Creat Clear Calc 39.65, Est GFR (MDRD) Af Amer 48 L, Est GFR (MDRD) Non-Af 40 L, BUN/Creatinine Ratio 18.4, Glucose 112 H, Calcium 8.3 L 11/27/19 06:14: Hemoglobin A1c 5.5 11/27/19 06:56: POC Glucose 121 H Current Medications Acetaminophen (Tylenol) 650 mg PO Q6H PRN PRN PRN Reason: Pain Score 1-10/Temp > 100.7 F Al Hydroxide/Mg Hydroxide (Mylanta Ii) 30 ml PO Q6H PRN PRN PRN Reason: Gastric Burning Albuterol Sulfate (Ventolin Aerosols) 2.5 mg INHALATION Q2H PRN PRN PRN Reason: Dyspnea, wheezing Albuterol/Ipratropium (Duoneb) 3 ml INHALATION Q4HWA.RT [facility] Last Admin: 11/27/19 07:56 Dose: 3 ml Documented by: Allopurinol (Zyloprim) 300 mg PO DAILY [facility] Last Admin: 11/27/19 09:41 Dose: 300 mg Documented by: Ascorbic Acid (Vitamin C) 500 mg PO DAILY@0800 [facility] Last Admin: 11/27/19 09:41 Dose: 500 mg Documented by: Atorvastatin Calcium (Lipitor) 20 mg PO QHS [facility] Last Admin: 11/26/19 21:23 Dose: 20 mg Documented by: Carvedilol (Coreg) 6.25 mg PO BID [facility] Last Admin: 11/27/19 09:40 Dose: 6.25 mg Documented by: Dextrose (D50w Syringe) 0 gm IV X1 PRN; Protocol PRN Reason: Hypoglycemia Ferrous S[facility]ate ([facility]ous Sulfate) [facility] Admin: 11/27/19 09:41 Dose: 325 mg Documented by: Furosemide (Lasix) 40 mg IV BID@1000,1800 [facility] Last Admin: 11/27/19 09:41 Dose: 40 mg Documented by: Glucagon () 1 mg IM .X1 PRN PRN Reason: Hypoglycemia Guaifenesin (Robitussin) 10 ml PO Q4H PRN PRN PRN Reason: COUGH Hydralazine HCl (Apresoline Iv) 10 mg IV Q4H PRN PRN PRN Reason: SBP > 160 Last Admin: 11/26/19 01:12 Dose: 10 mg Documented by: Sodium Chloride () 250 mls @ 15 mls/hr IV .[id number] PRN PRN Reason: Saline Flush Sodium Chloride () 250 mls @ 15 mls/hr IV .[id number] PRN PRN Reason: Additional IVPB Infusion Insulin Human Lispro (Humalog Kwikpen (Bkc)) 0 unit SC Q6 [facility]; Protocol Last Admin: 11/27/19 07:01 Dose: Not Given Documented by: Magnesium Hydroxide (Milk Of Magnesia) 30 ml PO DAILY PRN PRN PRN Reason: Constipation Magnesium Oxide (Mag-Ox 400) 400 mg PO DAILY [facility] Last Admin: 11/27/19 09:41 Dose: 400 mg Documented by: Nitroglycerin (Nitrostat) 0.4 mg SUBLINGUAL Q5M PRN PRN Reason: CARDIAC/CHEST PAIN Ondansetron HCl (Zofran) 4 mg IV Q8H PRN PRN PRN Reason: NAUSEA/VOMITING Potassium Chloride (K-Dur) 20 meq PO DAILY [facility] Last Admin: 11/27/19 09:40 Dose: 20 meq Documented by: Prochlorperazine Edisylate (Compazine Iv) 5 mg IV Q4H PRN PRN PRN Reason: Breakthrough Nausea/Vomiting Psyllium Hydrophilic Mucilloid (Metamucil) 1 packet PO DAILY PRN PRN PRN Reason: Constipation Senna/Docusate Sodium (Senokot-S, Jaylyn-Colace) 2 tablet PO BID PRN PRN PRN Reason: Constipation Sodium Chloride () 10 - 40 ml IV UD PRN PRN Reason: SALINE FLUSH Last Admin: 11/26/19 17:59 Dose: 20 ml Documented by: Throat Lozenges (Cepacol Sore Throat Lozenge) 1 lozenge MUCOUS MEM Q2H PRN PRN PRN Reason: SORE THROAT Discharge Activity: May Not Drive Call your doctor if you observe: Fever of 101 or Higher, Numbness or Tingling, Change in Color, Inability to urinate, Inability to have a bowel movement, Shortness of breath, Dizziness, Fainting spells, Swelling in the ankles, Chest pain, Prolonged hiccoughing, Increased palpitations (irregular heartbeat), Calf discomfort, Uncontrolled pain Home Medications: Medications to take at Discharge Ascorbic Acid [Vitamin C] 500 mg PO DAILY@0800 03/08/17 Magnesium 500 mg PO DAILY 03/08/17 allopurinol 300 mg tablet 300 mg PO DAILY 08/23/19 cholecalciferol (vitamin D3) 125 mcg (5,000 unit) capsule 125 mcg PO DAILY 08/23/19 cyanocobalamin (vitamin B-12) 1,000 mcg capsule 1,000 mcg PO DAILY 08/24/19 omega-3 fatty acids 1,000 mg capsule 1,000 mg PO DAILY 08/24/19 Multivitamin with Minerals [Multiple Vitamin] 1 tab PO DAILY 10/06/19 Simvastatin 40 mg PO QHS 10/06/19 potassium chloride 20 mEq tablet,extended release 20 meq PO DAILY 10/22/19 Carvedilol [Coreg (Beta [address])] 6.25 mg PO BID #0 11/27/19 Ferrous Sulfate 325 mg PO DAILY #0 11/27/19 Furosemide [Lasix] 40 mg PO BID #60 tab 11/27/19 Following Prescrptions Were Given to Patient: Furosemide [Lasix] 40 mg PO BID #60 tab Primary Care Physician: Han Adrian MD [Primary Care Provider] - Please follow up with your Primary Care Physician in: in 2 weeks Please Follow Up With: Lito Loco MD When: in 4 weeks Please Follow Up With: Antonio Boogie DO When: in 4-6 weeks Additional Instructions: Prescription for Lasix called directly to the patient's pharmacy, [facility] Necessity - Tobacco Use Smoking Status: Light Smoker (<10/day) Tobacco Use: Cigars Meaningful Use Info Meaningful Use Diagnoses (Choose all that apply): CHF - CHF KRUNAL/ARB ordered at discharge?: No Reason KRUNAL/ARB not ordered?: Worsening renal disease Documented LVEF (%): 60 Inpatient E&M: [id number] Disch Hosp
[2019-11-27 11:16] LABS: Bedside Glucose 156 mg/dL (70-110)
[2019-11-29 09:12] LABS: Vitamin B12 1203 pg/mL (211-911)
== END 2019-11-27 14:06 | disposition home or self-care (01) | DRG 193 ==
LOC: ED 21:46 → ICU 11-26 01:07 → PCU 11-26 13:15
PROVIDERS: Admitting Provider Family Medicine; Emergency Provider Emergency Medicine; PCP Family Medicine; Visit Provider Internal Medicine
DX: J18.9 Pneumonia, unspecified organism (principal); I50.33 Acute on chronic diastolic (congestive) heart failure; J96.01 Acute respiratory failure with hypoxia; I13.0 Hypertensive heart and chronic kidney disease with heart failure and stage 1 through stage 4 chronic kidney disease, or unspecified chronic kidney disease; N17.9 Acute kidney failure, unspecified; J98.11 Atelectasis; Z68.41 Body mass index [BMI] 40.0-44.9, adult; Y95 Nosocomial condition; E11.22 Type 2 diabetes mellitus with diabetic chronic kidney disease; N18.3 Chronic kidney disease, stage 3 (moderate); E66.01 Morbid (severe) obesity due to excess calories; G47.33 Obstructive sleep apnea (adult) (pediatric); I89.0 Lymphedema, not elsewhere classified; E11.621 Type 2 diabetes mellitus with foot ulcer; L97.522 Non-pressure chronic ulcer of other part of left foot with fat layer exposed; R01.1 Cardiac murmur, unspecified; D63.1 Anemia in chronic kidney disease; M1A.9XX0 Chronic gout, unspecified, without tophus (tophi); D50.9 Iron deficiency anemia, unspecified; E78.5 Hyperlipidemia, unspecified; E11.40 Type 2 diabetes mellitus with diabetic neuropathy, unspecified; E11.21 Type 2 diabetes mellitus with diabetic nephropathy; I35.0 Nonrheumatic aortic (valve) stenosis; F17.290 Nicotine dependence, other tobacco product, uncomplicated; Z71.3 Dietary counseling and surveillance; Z79.899 Other long term (current) drug therapy
CPT/HCPCS: 11042; 11045; 29581; 36415; 36600; 71045; 71275; 80048; 80053; 80076; 82550; 82607; 82728; 82803; 82962; 83036; 83605; 83615; 83735; 83880; 84145; 84443; 84484; 85025; 86140; 87040; 87449; 87635; 87641; 93005; 94002; 94003; 94640; 97162; 97166; 99251; 99285; G2023; J7040; J7050; Q9967; A4216; G0463; J1940; U0003

== ENCOUNTER → 2019-11-29 10:00 | Outpatient (CLI) | payer MEDICARE, OTHER, SELFPAY | PROVIDERS: PCP Family Medicine; Visit Provider Family Medicine | DX: R69 Illness, unspecified (principal) ==

== ENCOUNTER 2019-12-09 11:00 | Outpatient (RCR) | payer MEDICARE, OTHER, SELFPAY ==
[2019-11-10 00:23] VITALS: BP 112/56; PULSE 83; RESP 22; TEMP 36.9
[2019-11-18 11:14] VITALS: BP 109/61; PULSE 89; RESP 20; TEMP 36.6; BMI 44.5
--- NOTE | 2019-11-18 13:27 | PN.PCM_ITS ---
(1) Lymphedema of both lower extremities Status: Chronic Current Visit: Yes Code(s): I89.0 - Lymphedema, not elsewhere classified (2) Ulcer of left lower extremity with fat layer exposed Status: Chronic Current Visit: Yes Code(s): L97.922 - Non-pressure chronic ulcer of unspecified part of left lower leg with fat layer exposed (3) Obesity Status: Chronic Current Visit: Yes Qualifiers: Code(s): E66.9 - Obesity, unspecified Type of Wound Date of Service: 11/18/19 Chief Complaint: Left lower extremity ulcer. History of Wound: Mr. Russell is a 69yo well-known to the wound center who presents due to new (recurrent) left lower extremity ulcer. Said to have started about a week ago. Initially noted increased fluid drainage. Denies chills, fever or otherwise feeling of unwell. Home health nurse was concerned as well due to significant foul smell. Progress of Wound: Still significant edema and areas of fluid drainage. - Physical Exam Vital Signs Temp Pulse Resp BP 97.8 F 89 20 H 109/61 11/18/19 11:14 11/18/19 11:14 11/18/19 11:14 11/18/19 11:14 General: Alert, Oriented x3, Cooperative, No apparent distress HEENT: Atraumatic, Normocephalic Oral: Moist Mucosa Neck: Supple Lungs: Normal air movement Abdomen: Non Tender, Obese Extremities: No cyanosis, Edema Skin: Ulcer/ Wound Wound Measurements and Assessment WC - Nurse 1 - General Ulcer Measurement Start: 11/18/19 11:14 Freq: Status: Active Protocol: Activity Type Activity Date Activity User E-Sign Co-Sign Detail Recorded Client Recorded Date Recorded By Document 11/18/19 11:14 DV [id number] 11/18/19 11:34 DV 11/18/19 11:14 Wound Center Nurse 1 [Ulcer Assessment] #16 left medial LE -Combined with other wound No -Current Size (cm) - Length 0.1 -Current Size (cm) - Width 0.1 -Current Size (cm) - Depth 0.1 -Total Square Cm 0.01 15. LLE lateral cluster -Combined with other wound No -Current Size (cm) - Length 0.1 -Current Size (cm) - Width 0.1 -Current Size (cm) - Depth 0.1 -Total Square Cm 0.01 [Edema Assessment] -Lower Limb Edema Present Yes -Point of measurement (cm from the 51.0 medial instep) -Right Ankle (cm) 31.0 -Point of Measurement (cm from the 12.0 medial instep) -Left Calf (cm) 53.0 -Point of measurement (cm from the 36.0 medial instep) -Left Ankle (cm) 35.5 -Point of Measurement (cm from the 12.0 medial instep) MAXX - Nurse 2 - General Ulcer CM Notes Start: 11/18/19 11:14 Freq: Status: Active Protocol: Activity Type Activity Date Activity User E-Sign Co-Sign Detail Recorded Client Recorded Date Recorded By Document 11/18/19 11:58 MW [id number] 11/18/19 12:05 MW 11/18/19 11:58 Wound Center Nurse 2 [Procedure/Treatment] #16 left medial LE -Time 12:00 -Correct Patient Yes -Correct Side, Site, Position Yes -Correct Procedure Yes -Procedure Performed No -Wound/Ulcer Outcome Not Healed -Ulcer Cleansing Rinsed/ Irrigated with Saline -Foul Odor after Cleansing No -Bioengineered Tissue No -Bleeding Controlled with NA -Offloading No -Treatment Response Procedure Tolerated Well 15. LLE lateral cluster -Time 12:00 -Correct Patient Yes -Correct Side, Site, Position Yes -Correct Procedure Yes -Procedure Performed No -Wound/Ulcer Outcome Not Healed -Ulcer Cleansing Rinsed/ Irrigated with Saline -Foul Odor after Cleansing No -Bioengineered Tissue No -Bleeding Controlled with Pressure -Offloading No -Treatment Response Procedure Tolerated Well [See Physician Procedure note for Specifics] Pain Scale: 0-10 Numeric [Pain] -Is Patient Pain Free? Yes Musculoskeletal: No Muscle Wasting Neurological: Cranial nerves II-XII grossly intact Debridement Note Post-Debridement Measurements/Treatment WC - Nurse 2 - General Ulcer CM Notes Start: 11/18/19 11:14 Freq: Status: Active Protocol: Activity Type Activity Date Activity User E-Sign Co-Sign Detail Recorded Client Recorded Date Recorded By Document 11/18/19 11:58 MW [id number] 11/18/19 12:05 MW 11/18/19 11:58 Wound Center Nurse 2 #16 left medial LE -Time 12:00 -Correct Patient Yes -Correct Side, Site, Position Yes -Correct Procedure Yes -Procedure Performed No -Wound/Ulcer Outcome Not Healed -Ulcer Cleansing Rinsed/ Irrigated with Saline -Foul Odor after Cleansing No -Bioengineered Tissue No -Bleeding Controlled with NA -Offloading No -Treatment Response Procedure Tolerated Well 15. LLE lateral cluster -Time 12:00 -Correct Patient Yes -Correct Side, Site, Position Yes -Correct Procedure Yes -Procedure Performed No -Wound/Ulcer Outcome Not Healed -Ulcer Cleansing Rinsed/ Irrigated with Saline -Foul Odor after Cleansing No -Bioengineered Tissue No -Bleeding Controlled with Pressure -Offloading No -Treatment Response Procedure Tolerated Well Pain Scale: 0-10 Numeric Is Patient Pain Free? Yes No debridement was completed today Assessment/Plan Active Problems (Last Reviewed 10/22/19 @ 14:54 by Shirley Hill NP-C) Obesity (Chronic) Ulcer of left lower extremity with fat layer exposed (Chronic) Lymphedema of both lower extremities (Chronic) Assessment: Recurrent left lower extremity ulcer. Chronic lymphedema. Morbid obesity. Plan: No debridement completed today. Still areas of weeping/drainage. Continue Aquacel with bilateral 3M wraps. Change on Friday and Friday by home health. Continue lymphedema pump at 40 mmHg. He admits that he has not been elevating and using his compression pumps as he issued. Also strongly advised to elevate his lower extremities and cut back on sodium intake. He voiced understanding. Continue increased protein intake. His questions were answered and he was advised to call with any further questions or concerns. Follow-up in 1 week. This note was generated with [employer] dictation software. It may contain incorrect words, spelling, and punctuation that were not noted in checking the note before signing. Office Visits / Consults: [id number] OV L3 Est
[2019-11-25 10:52] VITALS: BP 146/59; PULSE 97; RESP 18; TEMP 36.7; BMI 44.5
--- NOTE | 2019-11-25 12:01 | PCM.WC.PN ---
(1) Lymphedema of both lower extremities Status: Chronic Current Visit: Yes Code(s): I89.0 - Lymphedema, not elsewhere classified (2) Ulcer of left lower extremity with fat layer exposed Status: Chronic Current Visit: Yes Code(s): L97.922 - Non-pressure chronic ulcer of unspecified part of left lower leg with fat layer exposed (3) Obesity Status: Chronic Current Visit: Yes Qualifiers: Code(s): E66.9 - Obesity, unspecified Type of Wound Date of Service: 11/25/19 Chief Complaint: Left lower extremity ulcer. History of Wound: Mr. Russell is a 69yo well-known to the wound center who presents due to new (recurrent) left lower extremity ulcer. Said to have started about a week ago. Initially noted increased fluid drainage. Denies chills, fever or otherwise feeling of unwell. Home health nurse was concerned as well due to significant foul smell. Progress of Wound: Edema is improving. Reports compliance with his lymphedema pump now. - Physical Exam Vital Signs Temp Pulse Resp BP 98.0 F 97 18 146/59 H 11/25/19 10:52 11/25/19 10:52 11/25/19 10:52 11/25/19 10:52 General: Alert, Oriented x3, Cooperative, No apparent distress HEENT: Atraumatic, Normocephalic Oral: Moist Mucosa Neck: Supple Lungs: Normal air movement Abdomen: Non Tender, Obese Extremities: No cyanosis, Edema Skin: Ulcer/ Wound Wound Measurements and Assessment WC - Nurse 1 - General Ulcer Measurement Start: 11/18/19 11:14 Freq: Status: Active Protocol: Activity Type Activity Date Activity User E-Sign Co-Sign Detail Recorded Client Recorded Date Recorded By Document 11/25/19 10:52 FERMIN [id number] 11/25/19 11:03 PL 11/25/19 10:52 Wound Center Nurse 1 [Ulcer Assessment] #16 left medial LE -Combined with other wound No -Current Size (cm) - Length 0 -Current Size (cm) - Width 0 -Current Size (cm) - Depth 0 -Total Square Cm 0 -Photo Taken No -Epithelialization Large 67-100% -Tunneling No -Undermining/Tunneling No -Texture (Jaylyn-wound Skin Appearance) No Abnormality -Moisture (Jaylyn-wound Skin Appearance Dry/Scaly ) -Color (Jaylyn-wound Skin Appearance) No Abnormality -Ulcer Cleansing Rinsed/ Irrigated with Saline -Foul Odor after Cleansing No 15. LLE lateral cluster -Combined with other wound No -Current Size (cm) - Length 0.1 -Current Size (cm) - Width 0.1 -Current Size (cm) - Depth 0.1 -Total Square Cm 0.01 -Granulation Amt Large (67-100%) -Granulation Quality [place] -Necrosis Amt Small (1-33%) -Necrotic Tissue Type Adherent Slough -Moisture (Jaylyn-wound Skin Appearance Dry/Scaly ) -Ulcer Cleansing Rinsed/ Irrigated with Saline -Foul Odor after Cleansing No [Edema Assessment] -Left Calf (cm) 50 -Point of measurement (cm from the 30 medial instep) -Left Ankle (cm) 38 -Point of Measurement (cm from the 14 medial instep) WC - Nurse 2 - General Ulcer CM Notes Start: 11/18/19 11:14 Freq: Status: Active Protocol: Activity Type Activity Date Activity User E-Sign Co-Sign Detail Recorded Client Recorded Date Recorded By Document 11/25/19 11:20 MW [id number] 11/25/19 11:23 MW 11/25/19 11:20 Wound Center Nurse 2 [Procedure/Treatment] #16 left medial LE -Time 11:21 -Correct Patient Yes -Correct Side, Site, Position Yes -Correct Procedure Yes -Procedure Performed No -Post Debridement Size (cm) - Length 0 -Post Debridement Size (cm) - Width 0 -Post Debridement Size (cm) - Depth 0 -Total Square Cm 0 -Wound/Ulcer Outcome Healed- Epithelialized -Treatment Response Procedure Tolerated Well 15. LLE lateral cluster -Time 11:22 -Correct Patient Yes -Correct Side, Site, Position Yes -Correct Procedure Yes -Procedure Performed Yes -Type of Procedure Debridement -Clinical Debridement Subcutaneous -Post Debridement Size (cm) - Length 6.8 -Post Debridement Size (cm) - Width 6.5 -Post Debridement Size (cm) - Depth 0.1 -Total Square Cm 44.20 -Wound/Ulcer Outcome Not Healed -Ulcer Cleansing Rinsed/ Irrigated with Saline -Foul Odor after Cleansing No -Bioengineered Tissue No -Bleeding Controlled with Pressure -Offloading No -Treatment Response Procedure Tolerated Well [See Physician Procedure note for Specifics] Pain Scale: 0-10 Numeric [Pain] -Is Patient Pain Free? Yes Neurological: Cranial nerves II-XII grossly intact Psych/Mental Status: Normal Affect Debridement Note Post-Debridement Measurements/Treatment WC - Nurse 2 - General Ulcer CM Notes Start: 11/18/19 11:14 Freq: Status: Active Protocol: Activity Type Activity Date Activity User E-Sign Co-Sign Detail Recorded Client Recorded Date Recorded By Document 11/18/19 11:58 MW [id number] 11/18/19 12:05 MW Document 11/25/19 11:20 MW [id number] 11/25/19 11:23 MW 11/18/19 11/25/19 11:58 11:20 Wound Center Nurse 2 #16 left medial LE -Time 12:00 11:21 -Correct Patient Yes Yes -Correct Side, Site, Position Yes Yes -Correct Procedure Yes Yes -Procedure Performed No No -Post Debridement Size (cm) - Length 0 -Post Debridement Size (cm) - Width 0 -Post Debridement Size (cm) - Depth 0 -Total Square Cm 0 -Wound/Ulcer Outcome Not Healed Healed- Epithelialized -Ulcer Cleansing Rinsed/ Irrigated with Saline -Foul Odor after Cleansing No -Bioengineered Tissue No -Bleeding Controlled with NA -Offloading No -Treatment Response Procedure Procedure Tolerated Well Tolerated Well 15. LLE lateral cluster -Time 12:00 11:22 -Correct Patient Yes Yes -Correct Side, Site, Position Yes Yes -Correct Procedure Yes Yes -Procedure Performed No Yes -Type of Procedure Debridement -Clinical Debridement Subcutaneous -Post Debridement Size (cm) - Length 6.8 -Post Debridement Size (cm) - Width 6.5 -Post Debridement Size (cm) - Depth 0.1 -Total Square Cm 44.20 -Wound/Ulcer Outcome Not Healed Not Healed -Ulcer Cleansing Rinsed/ Rinsed/ Irrigated with Irrigated with Saline Saline -Foul Odor after Cleansing No No -Bioengineered Tissue No No -Bleeding Controlled with Pressure Pressure -Offloading No No -Treatment Response Procedure Procedure Tolerated Well Tolerated Well Pain Scale: 0-10 Numeric Is Patient Pain Free? Yes Yes Wound debrided: Left lower extremity (lateral) Type of Debridement: Excisional debridement Anesthesia Used: 4% Lidocaine Solution Depth: Down to and including healthy tissue, in the subcutaneous layer Percentage of wound debrided: 100 Instrument Used: 5mm curette Tissue Removed: Slough and devitalized tissue Severity: Fat Layer Exposed Amount of bleeding with debridement: Mild Bleeding Controlled with: Pressure Patient tolerated procedure well Assessment/Plan Active Problems (Last Reviewed 10/22/19 @ 14:54 by Shirley Hill NP-C) Obesity (Chronic) Ulcer of left lower extremity with fat layer exposed (Chronic) Lymphedema of both lower extremities (Chronic) Assessment: Recurrent left lower extremity ulcer. Chronic lymphedema. Morbid obesity. Plan: Debridement done as documented above, procedure was well-tolerated. Continue Aquacel with bilateral 3M wraps. Change on Friday and Friday by home health. Continue lymphedema pump at 40 mmHg. Continue leg elevation and reduced sodium intake. Continue increased protein intake. His questions were answered and he was advised to call with any further questions or concerns. Follow-up in 1 week. This note was generated with [employer] dictation software. It may contain incorrect words, spelling, and punctuation that were not noted in checking the note before signing. [id number]: [id number] Shelbi subq tissue 20 sq cm/< Add On Codes: [id number] Shelbi subq tissue add-on - Additional square centimeter debrided, please refer to clinical note.
[2019-12-02 10:16] VITALS: BP 127/57; PULSE 95; RESP 24; TEMP 36.8; BMI 44.5
--- NOTE | 2019-12-02 12:10 | PN.PCM_ITS ---
(1) Lymphedema of both lower extremities Status: Chronic Current Visit: Yes Code(s): I89.0 - Lymphedema, not elsewhere classified (2) Ulcer of left lower extremity with fat layer exposed Status: Chronic Current Visit: Yes Code(s): L97.922 - Non-pressure chronic ulcer of unspecified part of left lower leg with fat layer exposed (3) Obesity Status: Chronic Current Visit: Yes Qualifiers: Code(s): E66.9 - Obesity, unspecified Type of Wound Date of Service: 12/02/19 Chief Complaint: Left lower extremity ulcer. History of Wound: Mr. Russell is a 69yo well-known to the wound center who presents due to new (recurrent) left lower extremity ulcer. Said to have started about a week ago. Initially noted increased fluid drainage. Denies chills, fever or otherwise feeling of unwell. Home health nurse was concerned as well due to significant foul smell. Progress of Wound: S/p recent hospital stay for ? Pulmonary edema. He states that he feels well today. Still significnat edema and new reopenings. - Physical Exam Vital Signs Temp Pulse Resp BP 98.3 F 95 24 H 127/57 H 12/02/19 10:16 12/02/19 10:16 12/02/19 10:16 12/02/19 10:16 General: Alert, Oriented x3, Cooperative, No apparent distress HEENT: Atraumatic, Normocephalic Oral: Moist Mucosa Neck: Supple Lungs: Wheezes Abdomen: Non Tender, Obese Extremities: No cyanosis, Edema Skin: Ulcer/ Wound Wound Measurements and Assessment WC - Nurse 1 - General Ulcer Measurement Start: 11/18/19 11:14 Freq: Status: Active Protocol: Activity Type Activity Date Activity User E-Sign Co-Sign Detail Recorded Client Recorded Date Recorded By Document 12/02/19 10:16 DL [id number] 12/02/19 10:26 DL 12/02/19 10:16 Wound Center Nurse 1 [Ulcer Assessment] 15. LLE lateral cluster -Current Size (cm) - Length 21.5 -Current Size (cm) - Width 20 -Current Size (cm) - Depth 0.1 -Total Square Cm 430.0 -Photo Taken No -Exudate Amt Medium -Exudate Type Serosanguineous -Wound Margin Indistinct, Non -Visible -Granulation Amt Large (67-100%) -Granulation Quality [place] -Necrosis Amt Small (1-33%) -Necrotic Tissue Type Adherent Slough -Structure Exposed N/A -Texture (Jaylyn-wound Skin Appearance) Excoriation -Moisture (Jaylyn-wound Skin Appearance Weeping ) -Color (Jaylyn-wound Skin Appearance) Erythema, Hemosiderin Staining -Temperature (Jaylyn-wound Skin No Abnormality Appearance) (Pt Warm) -Tenderness on Palpation (Jaylyn-wound No Skin Appearance) -Ulcer Cleansing Wound Cleanser -Foul Odor after Cleansing No -Anesthetic Used 4% Lidocaine Solution [Edema Assessment] -Right Calf (cm) 49 -Right Ankle (cm) 34 -Right Foot (cm) 49.6 -Left Calf (cm) 34.2 WC - Nurse 2 - General Ulcer CM Notes Start: 11/18/19 11:14 Freq: Status: Active Protocol: Activity Type Activity Date Activity User E-Sign Co-Sign Detail Recorded Client Recorded Date Recorded By Document 12/02/19 11:32 JIM [id number] 12/02/19 11:35 JIM 12/02/19 11:32 Wound Center Nurse 2 [Procedure/Treatment] #16 left medial LE -Time 11:34 -Correct Patient Yes -Correct Side, Site, Position Yes -Correct Procedure Yes -Procedure Performed Yes -Type of Procedure Debridement -Clinical Debridement Selective -Post Debridement Size (cm) - Length 11 -Post Debridement Size (cm) - Width 7.5 -Post Debridement Size (cm) - Depth 0.1 -Total Square (cm) 82.5 -Wound/Ulcer Outcome Not Healed -Ulcer Cleansing Rinsed/ Irrigated with Saline -Foul Odor after Cleansing No -Bioengineered Tissue No -Bleeding Controlled with Pressure -Offloading No -Treatment Response Procedure Tolerated Well 15. LLE lateral cluster -Time 11:32 -Correct Patient Yes -Correct Side, Site, Position Yes -Correct Procedure Yes -Procedure Performed Yes -Type of Procedure Debridement -Clinical Debridement Selective -Post Debridement Size (cm) - Length 15.9 -Post Debridement Size (cm) - Width 11 -Post Debridement Size (cm) - Depth 0.1 -Total Square (cm) 174.9 -Wound/Ulcer Outcome Not Healed -Ulcer Cleansing Rinsed/ Irrigated with Saline -Foul Odor after Cleansing No -Bioengineered Tissue No -Bleeding Controlled with Pressure -Offloading No -Treatment Response Procedure Tolerated Well [See Physician Procedure note for Specifics] Pain Scale: 0-10 Numeric [Pain] -Is Patient Pain Free? Yes Musculoskeletal: No Muscle Wasting Neurological: Cranial nerves II-XII grossly intact Psych/Mental Status: Normal Affect Debridement Note Post-Debridement Measurements/Treatment WC - Nurse 2 - General Ulcer CM Notes Start: 11/18/19 11:14 Freq: Status: Active Protocol: Activity Type Activity Date Activity User E-Sign Co-Sign Detail Recorded Client Recorded Date Recorded By Document 11/18/19 11:58 MW [id number] 11/18/19 12:05 MW Document 11/25/19 11:20 MW [id number] 11/25/19 11:23 MW Document 12/02/19 11:32 JF [id number] 12/02/19 11:35 JF 11/18/19 11/25/19 12/02/19 11:58 11:20 11:32 Wound Center Nurse 2 #16 left medial LE -Time 12:00 11:21 11:34 -Correct Patient Yes Yes Yes -Correct Side, Site, Position Yes Yes Yes -Correct Procedure Yes Yes Yes -Procedure Performed No No Yes -Type of Procedure Debridement -Clinical Debridement Selective -Post Debridement Size (cm) - Length 0 11 -Post Debridement Size (cm) - Width 0 7.5 -Post Debridement Size (cm) - Depth 0 0.1 -Total Square (cm) 0 82.5 -Wound/Ulcer Outcome Not Healed Healed- Not Healed Epithelialized -Ulcer Cleansing Rinsed/ Rinsed/ Irrigated with Irrigated with Saline Saline -Foul Odor after Cleansing No No -Bioengineered Tissue No No -Bleeding Controlled with NA Pressure -Offloading No No -Treatment Response Procedure Procedure Procedure Tolerated Well Tolerated Well Tolerated Well 15. LLE lateral cluster -Time 12:00 11:22 11:32 -Correct Patient Yes Yes Yes -Correct Side, Site, Position Yes Yes Yes -Correct Procedure Yes Yes Yes -Procedure Performed No Yes Yes -Type of Procedure Debridement Debridement -Clinical Debridement Subcutaneous Selective -Post Debridement Size (cm) - Length 6.8 15.9 -Post Debridement Size (cm) - Width 6.5 11 -Post Debridement Size (cm) - Depth 0.1 0.1 -Total Square (cm) 44.20 174.9 -Wound/Ulcer Outcome Not Healed Not Healed Not Healed -Ulcer Cleansing Rinsed/ Rinsed/ Rinsed/ Irrigated with Irrigated with Irrigated with Saline Saline Saline -Foul Odor after Cleansing No No No -Bioengineered Tissue No No No -Bleeding Controlled with Pressure Pressure Pressure -Offloading No No No -Treatment Response Procedure Procedure Procedure Tolerated Well Tolerated Well Tolerated Well Pain Scale: 0-10 Numeric Is Patient Pain Free? Yes Yes Yes Wound debrided: Left lower extremity ( Lateral cluster ) Type of Debridement: Selective debridement Anesthesia Used: 4% Lidocaine Solution Depth: Down to and including healthy tissue, in the subcutaneous layer Percentage of wound debrided: 100 Instrument Used: 5mm curette Tissue Removed: Slough and devitalized tissue Severity: Fat Layer Exposed Amount of bleeding with debridement: Mild Bleeding Controlled with: Pressure Patient tolerated procedure well - Additional Wound Wound debrided: Left Lower Extremity ( Medial Cluster ) Type of Debridement: Selective debridement Anesthesia Used: 4% Lidocaine Solution Depth: Down to and including healthy tissue, in the subcutaneous layer Percentage of wound debrided: 100 Instrument Used: 5mm curette Tissue Removed: Slough and devitalized tissue Severity: Fat Layer Exposed Amount of bleeding with debridement: Mild Bleeding Controlled with: Pressure Patient tolerated procedure: Patient tolerated procedure well Assessment/Plan Active Problems (Last Reviewed 10/22/19 @ 14:54 by Shirley Hill NP-C) Obesity (Chronic) Ulcer of left lower extremity with fat layer exposed (Chronic) Lymphedema of both lower extremities (Chronic) Assessment: Recurrent left lower extremity ulcer. Chronic lymphedema. Morbid obesity. Plan: Debridement done as documented above, procedure was well-tolerated. Continue Aquacel with bilateral 3M wraps. Change on Friday and Friday by home health. Continue lymphedema pump at 40 mmHg. Continue leg elevation and reduced sodium intake. Continue increased protein intake. Wheezing. He however s tates that he feels well and denies any significant SOB at this time. He was advised to get in touch with his PCP and Director Professional Services. His questions were answered and he was advised to call with any further questions or concerns. Follow-up in 1 week. This note was generated with [employer] software. It may contain incorrect words, spelling, and punctuation that were not noted in checking the note before signing. [id number]: [id number] Shelbi subq tissue 20 sq cm/< - Superficial/selective debridement completed today Add On Codes: [id number] Shelbi subq tissue add-on - Additional square centimeter debrided, please refer to clinical note.
[2019-12-09 11:21] VITALS: BP 140/52; PULSE 89; RESP 18; TEMP 36.5; BMI 44.5
--- NOTE | 2019-12-09 12:28 | PN.PCM_ITS ---
(1) Lymphedema of both lower extremities Status: Chronic Current Visit: Yes Code(s): I89.0 - Lymphedema, not elsewhere classified (2) Ulcer of left lower extremity with fat layer exposed Status: Chronic Current Visit: Yes Code(s): L97.922 - Non-pressure chronic ulcer of unspecified part of left lower leg with fat layer exposed (3) Obesity Status: Chronic Current Visit: Yes Qualifiers: Code(s): E66.9 - Obesity, unspecified Type of Wound Date of Service: 12/09/19 Chief Complaint: Left lower extremity ulcer. History of Wound: Mr. Russell is a 69yo well-known to the wound center who presents due to new (recurrent) left lower extremity ulcer. Said to have started about a week ago. Initially noted increased fluid drainage. Denies chills, fever or otherwise feeling of unwell. Home health nurse was concerned as well due to significant foul smell. Progress of Wound: Significant ulcerations, just significant increased drainage. - Physical Exam Vital Signs Temp Pulse Resp BP 97.7 F L 89 18 140/52 H 12/09/19 11:21 12/09/19 11:21 12/09/19 11:21 12/09/19 11:21 General: Alert, Oriented x3, Cooperative, No apparent distress HEENT: Atraumatic, Normocephalic Oral: Moist Mucosa Neck: Supple Lungs: Normal air movement Abdomen: Non Tender, Obese Extremities: No cyanosis, Edema Skin: Ulcer/ Wound Wound Measurements and Assessment WC - Nurse 1 - General Ulcer Measurement Start: 11/18/19 11:14 Freq: Status: Active Protocol: Activity Type Activity Date Activity User E-Sign Co-Sign Detail Recorded Client Recorded Date Recorded By Document 12/09/19 11:21 RB [id number] 12/09/19 11:23 RB 12/09/19 11:21 Wound Center Nurse 1 [Ulcer Assessment] #16 left medial LE -Combined with other wound No -Current Size (cm) - Length 0.1 -Current Size (cm) - Width 0.1 -Current Size (cm) - Depth 0.1 -Total Square Cm 0.01 -Tunneling No -Undermining/Tunneling No -Circular Undermining No -Exudate Amt Large -Exudate Type Serosanguineous -Wound Margin Flat & Intact -Granulation Amt Large (67-100%) -Granulation Quality Red -Slough/Fibrin Yes -Necrosis Amt Small (1-33%) -Necrotic Tissue Type Adherent Slough -Structure Exposed N/A -Texture (Jaylyn-wound Skin Appearance) Excoriation -Moisture (Jaylyn-wound Skin Appearance Maceration, ) Weeping -Color (Jaylyn-wound Skin Appearance) Assessed -Temperature (Jaylyn-wound Skin No Abnormality Appearance) (Pt Warm) -Tenderness on Palpation (Jaylyn-wound No Skin Appearance) -Ulcer Cleansing Wound Cleanser -Foul Odor after Cleansing No -Anesthetic Used 4% Lidocaine Solution 15. LLE lateral cluster -Combined with other wound No -Current Size (cm) - Length 0.1 -Current Size (cm) - Width 0.1 -Current Size (cm) - Depth 0.1 -Total Square Cm 0.01 -Tunneling No -Undermining/Tunneling No -Circular Undermining No -Exudate Amt Large -Exudate Type Serosanguineous -Wound Margin Flat & Intact -Granulation Amt Large (67-100%) -Granulation Quality [place],Red -Slough/Fibrin Yes -Necrosis Amt Small (1-33%) -Necrotic Tissue Type Adherent Slough -Structure Exposed N/A -Texture (Jaylyn-wound Skin Appearance) Assessed, Excoriation -Moisture (Jaylyn-wound Skin Appearance Maceration, ) Weeping -Color (Jaylyn-wound Skin Appearance) Assessed -Temperature (Jaylyn-wound Skin No Abnormality Appearance) (Pt Warm) -Tenderness on Palpation (Jaylyn-wound No Skin Appearance) -Ulcer Cleansing Wound Cleanser -Foul Odor after Cleansing No -Anesthetic Used 4% Lidocaine Solution [Edema Assessment] -Lower Limb Edema Present Yes -Left Calf (cm) 52 -Left Ankle (cm) 36 WC - Nurse 2 - General Ulcer CM Notes Start: 11/18/19 11:14 Freq: Status: Active Protocol: Activity Type Activity Date Activity User E-Sign Co-Sign Detail Recorded Client Recorded Date Recorded By Document 12/09/19 11:37 MW [id number] 12/09/19 11:38 MW 12/09/19 11:37 Wound Center Nurse 2 [Procedure/Treatment] #16 left medial LE -Time 11:37 -Correct Patient Yes -Correct Side, Site, Position Yes -Correct Procedure Yes -Procedure Performed No -Wound/Ulcer Outcome Not Healed -Ulcer Cleansing Rinsed/ Irrigated with Saline -Foul Odor after Cleansing No -Bioengineered Tissue No -Bleeding Controlled with NA -Offloading No -Treatment Response Procedure Tolerated Well 15. LLE lateral cluster -Time 11:38 -Correct Patient Yes -Correct Side, Site, Position Yes -Correct Procedure Yes -Procedure Performed No -Wound/Ulcer Outcome Not Healed -Ulcer Cleansing Rinsed/ Irrigated with Saline -Foul Odor after Cleansing No -Bioengineered Tissue No -Bleeding Controlled with NA -Offloading No -Treatment Response Procedure Tolerated Well [See Physician Procedure note for Specifics] Pain Scale: 0-10 Numeric [Pain] -Is Patient Pain Free? Yes Musculoskeletal: No Muscle Wasting Neurological: Cranial nerves II-XII grossly intact Psych/Mental Status: Normal Affect Debridement Note Post-Debridement Measurements/Treatment WC - Nurse 2 - General Ulcer CM Notes Start: 11/18/19 11:14 Freq: Status: Active Protocol: Activity Type Activity Date Activity User E-Sign Co-Sign Detail Recorded Client Recorded Date Recorded By Document 11/18/19 11:58 MW [id number] 11/18/19 12:05 MW Document 11/25/19 11:20 MW [id number] 11/25/19 11:23 MW Document 12/02/19 11:32 JF [id number] 12/02/19 11:35 JF Document 12/09/19 11:37 MW [id number] 12/09/19 11:38 MW 11/18/19 11/25/19 12/02/19 11:58 11:20 11:32 Wound Center Nurse 2 #16 left medial LE -Time 12:00 11:21 11:34 -Correct Patient Yes Yes Yes -Correct Side, Site, Position Yes Yes Yes -Correct Procedure Yes Yes Yes -Procedure Performed No No Yes -Type of Procedure Debridement -Clinical Debridement Selective -Post Debridement Size (cm) - Length 0 11 -Post Debridement Size (cm) - Width 0 7.5 -Post Debridement Size (cm) - Depth 0 0.1 -Total Square (cm) 0 82.5 -Wound/Ulcer Outcome Not Healed Healed- Not Healed Epithelialized -Ulcer Cleansing Rinsed/ Rinsed/ Irrigated with Irrigated with Saline Saline -Foul Odor after Cleansing No No -Bioengineered Tissue No No -Bleeding Controlled with NA Pressure -Offloading No No -Treatment Response Procedure Procedure Procedure Tolerated Well Tolerated Well Tolerated Well 15. LLE lateral cluster -Time 12:00 11:22 11:32 -Correct Patient Yes Yes Yes -Correct Side, Site, Position Yes Yes Yes -Correct Procedure Yes Yes Yes -Procedure Performed No Yes Yes -Type of Procedure Debridement Debridement -Clinical Debridement Subcutaneous Selective -Post Debridement Size (cm) - Length 6.8 15.9 -Post Debridement Size (cm) - Width 6.5 11 -Post Debridement Size (cm) - Depth 0.1 0.1 -Total Square (cm) 44.20 174.9 -Wound/Ulcer Outcome Not Healed Not Healed Not Healed -Ulcer Cleansing Rinsed/ Rinsed/ Rinsed/ Irrigated with Irrigated with Irrigated with Saline Saline Saline -Foul Odor after Cleansing No No No -Bioengineered Tissue No No No -Bleeding Controlled with Pressure Pressure Pressure -Offloading No No No -Treatment Response Procedure Procedure Procedure Tolerated Well Tolerated Well Tolerated Well Pain Scale: 0-10 Numeric Is Patient Pain Free? Yes Yes Yes 12/09/19 11:37 Wound Center Nurse 2 #16 left medial LE -Time 11:37 -Correct Patient Yes -Correct Side, Site, Position Yes -Correct Procedure Yes -Procedure Performed No -Type of Procedure -Clinical Debridement -Post Debridement Size (cm) - Length -Post Debridement Size (cm) - Width -Post Debridement Size (cm) - Depth -Total Square (cm) -Wound/Ulcer Outcome Not Healed -Ulcer Cleansing Rinsed/ Irrigated with Saline -Foul Odor after Cleansing No -Bioengineered Tissue No -Bleeding Controlled with NA -Offloading No -Treatment Response Procedure Tolerated Well 15. E lateral cluster -Time 11:38 -Correct Patient Yes -Correct Side, Site, Position Yes -Correct Procedure Yes -Procedure Performed No -Type of Procedure -Clinical Debridement -Post Debridement Size (cm) - Length -Post Debridement Size (cm) - Width -Post Debridement Size (cm) - Depth -Total Square (cm) -Wound/Ulcer Outcome Not Healed -Ulcer Cleansing Rinsed/ Irrigated with Saline -Foul Odor after Cleansing No -Bioengineered Tissue No -Bleeding Controlled with NA -Offloading No -Treatment Response Procedure Tolerated Well Pain Scale: 0-10 Numeric Is Patient Pain Free? Yes No debridement was completed today Assessment/Plan Active Problems (Last Reviewed 10/22/19 @ 14:54 by STEVE De La TorreC) Obesity (Chronic) Ulcer of left lower extremity with fat layer exposed (Chronic) Lymphedema of both lower extremities (Chronic) Assessment: Recurrent left lower extremity ulcer. Chronic lymphedema. Morbid obesity. Plan: No debridement completed today. Continue Aquacel with bilateral 3M wraps. Change on Friday and Friday by home health. Continue lymphedema pump at 40 mmHg. Continue leg elevation and reduced sodium intake. Continue increased protein intake. His questions were answered and he was advised to call with any further questions or concerns. Follow-up in 1 week. This note was generated with [employer] dictation software. It may contain incorrect words, spelling, and punctuation that were not noted in checking the note before signing. Office Visits / Consults: [id number] OV L3 Est
== END 2019-12-10 23:59 ==
LOC: WC 11:00
PROVIDERS: Family Provider Family Medicine; PCP Family Medicine; Visit Provider Internal Medicine
DX: L97.822 Non-pressure chronic ulcer of other part of left lower leg with fat layer exposed (principal); I89.0 Lymphedema, not elsewhere classified; E66.01 Morbid (severe) obesity due to excess calories; Z68.41 Body mass index [BMI] 40.0-44.9, adult; R60.0 Localized edema
CPT/HCPCS: 11042; 11045; 29581; 97597; 97598; 99213; G0463

== ENCOUNTER → 2019-12-09 12:12 | Outpatient (CLI) | payer MEDICARE, OTHER, SELFPAY ==
[2019-10-14 10:32] VITALS: BMI 44.5
[2019-10-22 14:03] VITALS: BMI 44.5
[2019-12-09 11:21] VITALS: BMI 44.5
[2019-12-09 13:32] LABS: Protein, Urine (Random) 351.9 mg/dL (<11.9); Protein:Creat Ratio 2362 mg/g CRE (0-200)
[2019-12-09 13:41] LABS: Albumin, Serum 2.5 g/dL (3.2-5.0); BUN 57 mg/dL (7-18); BUN/Creat Ratio 23.1 RATIO (10-20); Chloride 111 mmol/L (98-107); Creatinine, Serum 2.47 mg/dL (0.70-1.30); EST Glomerular Filtration Rate 28 mL/min (>60); Est Glom Filt Rate - Afr Amer 33 mL/min (>60); Glucose 126 mg/dL (74-106); Phosphorus 3.6 mg/dL (2.5-4.9); Potassium 4.2 mmol/L (3.5-5.1); Sodium Level 138 mmol/L (136-145)
[2019-12-09 13:43] LABS: PTHIN 99.2 pg/mL (18.4-80.1)
--- NOTE | 2019-12-10 11:08 | PFT ---
INTRODUCTION: The patient is a 69-year-old male that presents for pulmonary function studies secondary to a diagnosis of shortness of breath. Respiratory therapy reports good patient effort. Bronchodilators were used during testing. INTERPRETATION: Forced expiration spirometry demonstrates the presence of a severe large airways obstructive ventilatory defect. There was no significant response to aerosolized bronchodilators. However, the patient did demonstrate a rather robust mid flow response. Spirograms are of fair quality and plateau gradually. Body plethysmography was performed and reveals a decreased TLC to 5.13 L, 79% of predicted, indicative of a mild restrictive ventilatory impairment. Residual volume is elevated at 131% of predicted, indicative of underlying air trapping. Diffusing capacity by single breath CO is reduced at 40% of predicted. IMPRESSION: Irreversible severe mixed ventilatory defect with associated air trapping and symmetric reduction in diffusing capacity.
== END ==
PROVIDERS: Internal Medicine Nephrology; PCP Family Medicine; Referring Provider Nurse Practitioner Acute Care; Visit Provider Nurse Practitioner Acute Care
DX: E11.22 Type 2 diabetes mellitus with diabetic chronic kidney disease (principal); N18.3 Chronic kidney disease, stage 3 (moderate); N25.81 Secondary hyperparathyroidism of renal origin; R06.02 Shortness of breath
CPT/HCPCS: 29581; 36415; 80069; 82570; 83970; 84156; 94060; 94726; 94729; 99213; G0463

== ENCOUNTER 2019-12-16 08:05 | Outpatient (RCR) | payer MEDICARE, OTHER, SELFPAY ==
[2019-12-11 00:24] VITALS: BP 140/52; PULSE 89; RESP 18; TEMP 36.5; BMI 43.8
[2019-12-16 11:25] VITALS: BP 133/46; PULSE 96; RESP 18; TEMP 36.7; O2SAT 98; BMI 43.8
--- NOTE | 2019-12-16 12:17 | WC ---
PAVAN LONGORIA le
--- NOTE | 2019-12-16 12:56 | PN.PCM_ITS ---
(1) Type 2 diabetes mellitus Status: Chronic Current Visit: No Qualifiers: Code(s): E11.9 - Type 2 diabetes mellitus without complications (2) Ulcer of left lower extremity with fat layer exposed Status: Chronic Current Visit: Yes Code(s): L97.922 - Non-pressure chronic ulcer of unspecified part of left lower leg with fat layer exposed (3) Ulcer of right lower extremity with fat layer exposed Status: Acute Current Visit: Yes Code(s): L97.912 - Non-pressure chronic ulcer of unspecified part of right lower leg with fat layer exposed (4) Lymphedema of both lower extremities Status: Chronic Current Visit: Yes Code(s): I89.0 - Lymphedema, not elsewhere classified (5) Morbid obesity Status: Chronic Current Visit: Yes Code(s): E66.01 - Morbid (severe) obesity due to excess calories Type of Wound Date of Service: 12/16/19 Chief Complaint: Left lower extremity ulcer. History of Wound: Mr. Russell is a 69yo well-known to the wound center who presents due to new (recurrent) left lower extremity ulcer. Said to have started about a week ago. Initially noted increased fluid drainage. Denies chills, fever or otherwise feeling of unwell. Home health nurse was concerned as well due to significant foul smell. Progress of Wound: Mr. Russell presents today with significant worsening of his left lower extremity ulceration and new right lower extremity ulceration. Reports pain in his left foot and is unable to ambulate. There has also been increased drainage. He reports difficulty breathing as well. - Physical Exam Vital Signs Temp Pulse Resp BP Pulse Ox 98.0 F 96 18 133/46 H 98 12/16/19 11:25 12/16/19 11:25 12/16/19 11:25 12/16/19 11:25 12/16/19 11:25 General: Alert, Oriented x3, Cooperative HEENT: Atraumatic, Normocephalic Oral: Moist Mucosa Neck: Supple Lungs: Short of Breath Abdomen: Obese Extremities: Edema Skin: Ulcer/ Wound Wound Measurements and Assessment WC - Nurse 1 - General Ulcer Measurement Start: 12/16/19 11:25 Freq: Status: Active Protocol: Activity Type Activity Date Activity User E-Sign Co-Sign Detail Recorded Client Recorded Date Recorded By Document 12/16/19 11:25 NV [id number] 12/16/19 11:37 NV 12/16/19 11:25 Wound Center Nurse 1 [Ulcer Assessment] #16 left medial LE -Combined with other wound No -Current Size (cm) - Length 0.1 -Current Size (cm) - Width 0.1 -Current Size (cm) - Depth 0.1 -Total Square Cm 0.01 -Tunneling No -Undermining/Tunneling No -Circular Undermining No -Exudate Amt Large -Exudate Type Serosanguineous -Wound Margin Flat & Intact -Granulation Amt Large (67-100%) -Granulation Quality Pale,[place] -Necrosis Amt Small (1-33%) -Necrotic Tissue Type Adherent Slough -Structure Exposed N/A -Texture (Jaylyn-wound Skin Appearance) Assessed, Localized Edema -Moisture (Ajylyn-wound Skin Appearance Assessed, ) Weeping -Color (Jaylyn-wound Skin Appearance) Assessed -Temperature (Jaylyn-wound Skin No Abnormality Appearance) (Pt Warm) -Ulcer Cleansing Rinsed/ Irrigated with Saline -Foul Odor after Cleansing No -Anesthetic Used 4% Lidocaine Solution 15. LLE lateral cluster -Combined with other wound No -Current Size (cm) - Length 0.1 -Current Size (cm) - Width 0.1 -Current Size (cm) - Depth 0.1 -Total Square Cm 0.01 -Tunneling No -Undermining/Tunneling No -Circular Undermining No -Exudate Amt Medium -Exudate Type Serosanguineous -Wound Margin Flat & Intact -Granulation Amt Large (67-100%) -Granulation Quality Pale,[place] -Slough/Fibrin No -Necrosis Amt Medium (34-66%) -Necrotic Tissue Type Adherent Slough -Structure Exposed N/A -Texture (Jaylyn-wound Skin Appearance) Assessed, Localized Edema -Moisture (Jaylyn-wound Skin Appearance Assessed, ) Weeping -Color (Jaylyn-wound Skin Appearance) Assessed -Temperature (Jaylyn-wound Skin No Abnormality Appearance) (Pt Warm) -Tenderness on Palpation (Jaylyn-wound No Skin Appearance) -Ulcer Cleansing Rinsed/ Irrigated with Saline -Foul Odor after Cleansing No -Anesthetic Used 4% Lidocaine Solution [Edema Assessment] -Lower Limb Edema Present Yes -Right Calf (cm) 45 -Right Ankle (cm) 32 -Left Calf (cm) 53 -Left Ankle (cm) 39 WC - Nurse 2 - General Ulcer CM Notes Start: 12/16/19 11:25 Freq: Status: Active Protocol: Activity Type Activity Date Activity User E-Sign Co-Sign Detail Recorded Client Recorded Date Recorded By Document 12/16/19 12:03 MW [id number] 12/16/19 12:09 MW 12/16/19 12:03 Wound Center Nurse 2 [Procedure/Treatment] #16 left medial LE -Time 12:06 -Correct Patient Yes -Correct Side, Site, Position Yes -Correct Procedure Yes -Procedure Performed No -Wound/Ulcer Outcome Not Healed -Ulcer Cleansing Not Cleansed -Foul Odor after Cleansing No -Bioengineered Tissue No -Bleeding Controlled with NA -Offloading No -Treatment Response Procedure Tolerated Well 15. LLE lateral cluster -Time 12:06 -Correct Patient Yes -Correct Side, Site, Position Yes -Correct Procedure Yes -Procedure Performed No -Wound/Ulcer Outcome Not Healed -Ulcer Cleansing Not Cleansed -Foul Odor after Cleansing No -Bioengineered Tissue No -Bleeding Controlled with NA -Offloading No -Treatment Response Procedure Tolerated Well [See Physician Procedure note for Specifics] Pain Scale: 0-10 Numeric [Pain] -Is Patient Pain Free? Yes Musculoskeletal: No Muscle Wasting Neurological: Cranial nerves II-XII grossly intact Debridement Note Post-Debridement Measurements/Treatment WC - Nurse 2 - General Ulcer CM Notes Start: 12/16/19 11:25 Freq: Status: Active Protocol: Activity Type Activity Date Activity User E-Sign Co-Sign Detail Recorded Client Recorded Date Recorded By Document 12/16/19 12:03 MW [id number] 12/16/19 12:09 MW 12/16/19 12:03 Wound Center Nurse 2 #16 left medial LE -Time 12:06 -Correct Patient Yes -Correct Side, Site, Position Yes -Correct Procedure Yes -Procedure Performed No -Wound/Ulcer Outcome Not Healed -Ulcer Cleansing Not Cleansed -Foul Odor after Cleansing No -Bioengineered Tissue No -Bleeding Controlled with NA -Offloading No -Treatment Response Procedure Tolerated Well 15. LLE lateral cluster -Time 12:06 -Correct Patient Yes -Correct Side, Site, Position Yes -Correct Procedure Yes -Procedure Performed No -Wound/Ulcer Outcome Not Healed -Ulcer Cleansing Not Cleansed -Foul Odor after Cleansing No -Bioengineered Tissue No -Bleeding Controlled with NA -Offloading No -Treatment Response Procedure Tolerated Well Pain Scale: 0-10 Numeric Is Patient Pain Free? Yes No debridement was completed today Assessment/Plan Active Problems (Last Reviewed 10/22/19 @ 14:54 by Shirley Hill, CATALINA-C) Morbid obesity (Chronic) Ulcer of left lower extremity with fat layer exposed (Chronic) Lymphedema of both lower extremities (Chronic) Ulcer of right lower extremity with fat layer exposed (Acute) Assessment: Recurrent left lower extremity ulcer. Chronic lymphedema. Morbid obesity. Plan: Mr Russell presents today with significant worsening. He is short of breath. Worsening bilateral lower extremity ulcers. Left lower extremity with significant drainage, erythema and tenderness. Very lengthy discussion had with patient about being admitted and subsequently going to a senior care. He is unable to care for himself at home. Has had a lot of [id number] with his wound care and we have been unable to sustain/maintain wound healing for any significant amount of time. Typically relapses without home health being available and home health is usually discharged after wound healing. He is here with his [id number] who agrees with this. He was sent to the emergency room from the wound healing center for possible admission and management of left lower extremity cellulitis/CHF exacerbation. His questions were answered and he was advised to call with any further questions or concerns. This note was generated with [employer] dictation software. It may contain incorrect words, spelling, and punctuation that were not noted in checking the note before signing. Office Visits / Consults: [id number] OV L3 Est
== END 2020-01-10 23:59 ==
LOC: WC 08:05
PROVIDERS: Family Provider Family Medicine; PCP Family Medicine; Visit Provider Internal Medicine
DX: E11.622 Type 2 diabetes mellitus with other skin ulcer (principal); L97.822 Non-pressure chronic ulcer of other part of left lower leg with fat layer exposed; I89.0 Lymphedema, not elsewhere classified; E66.01 Morbid (severe) obesity due to excess calories; Z68.41 Body mass index [BMI] 40.0-44.9, adult; L97.812 Non-pressure chronic ulcer of other part of right lower leg with fat layer exposed; R06.02 Shortness of breath
CPT/HCPCS: 99213; G0463

== ENCOUNTER 2019-12-16 12:42 | Inpatient (IN) | payer MEDICARE, OTHER, SELFPAY ==
[2019-12-16 11:25] VITALS: BMI 43.8
[2019-12-16 12:43] VITALS: BP 150/59; PULSE 98; RESP 20; TEMP 36.4; O2SAT 99; BMI 42.0
--- NOTE | 2019-12-16 12:57 | EKG12_ITS ---
Test Reason : HTN Blood Pressure : / mmHG Vent. Rate : 096 BPM Atrial Rate : 094 BPM P-R Int : 000 ms QRS Dur : 146 ms QT Int : 418 ms P-R-T Axes : 000 -41 030 degrees QTc Int : 528 ms Sinus Rhythm, Right Bundle Branch Block Left axis deviation Right bundle branch block Abnormal ECG Confirmed by KIMBERLYN PERRY, CHRISTINE ([id number]), multimedia editor MANUEL VELÁZQUEZ ([id number]) on 12/20/2019 9:34:07 AM Referred By: RADHA/MALU Confirmed By:NAYLA SOFIA MD
--- NOTE | 2019-12-16 13:04 | ED.VIS.GEN ---
History of Present Illness Chief Complaint: Cellulitis Informant: Patient Onset: Days Context: Gradual Onset Timing: Continuous Current Severity: Moderate Maximum Severity: Moderate Narrative: The patient is a 69-year-old male medical history significant for chronic kidney disease and CHF, along with chronic venous stasis of his lower extremities that presents to the emergency department with increasing redness, pain, and chills. The patient was recently hospitalized for CHF exacerbation. He was aggressively diuresed. Since being home, his Lasix dose was decreased back to his normal dose. He has been following in the wound center. He states over the past 24 hours, he has had increasing redness and pain in his left lower extremity. He also admits to chills and sweats. He states that he has had cellulitis of this and it feels similar. He does not think he had a fever. He denies any chest pain or worsening dyspnea. Prior similar symptoms: Yes Recent Illness/Hospitalization: Yes Past Medical History - Allergies and Home Meds Allergies/Adverse Reactions: Allergies No Known Allergies Allergy (Verified 12/16/19 12:46) Primary Care Physician: Han Adrian MD [Primary Care Provider] - Prior records reviewed: Yes Past Medical History: - - CHF, chronic kidney disease, hypertension, hyperlipidemia Surgical History: no surgical history, tonsillectomy Smoking Status: Light Smoker (<10/day) - Family History Maternal Family History: Family History (Last Reviewed 10/22/19 @ 14:54 by LUCIANO De La Torre) Mother Cancer Father Hypertension Family History: Reports: Cancer - Mother with history of ovarian cancer. Paternal Family History: Family History (Last Reviewed 10/22/19 @ 14:54 by LUCIANO De La Torre) Mother Cancer Father Hypertension Family History: Reports: Hypertension, - - Head trauma. Review of Systems General: Reports: Chills, Malaise. Denies: Fever, Sweats Eyes: Denies: Visual changes - bilaterally, Diplopia ENT: Denies: Rhinorrhea, Sore throat Cardiovascular: Denies: Chest pain, Palpitations Respiratory: Denies: Dyspnea, Cough, Dyspnea on exertion Gastrointestinal: Denies: Abdominal pain, Nausea, Vomiting, Diarrhea, Melena, Hematochezia Genitourinary: Denies: Dysuria, Hematuria, Frequency Musculoskeletal: Denies: Back pain, Extremity Pain Skin: Denies: Rash, Wounds Neurological: Denies: Headache, Weakness, Numbness Hematologic: Reports: Lymphadenopathy Physical Exam Vital Signs/Narrative: Vital Signs Temp Pulse Resp BP Pulse Ox 12/16/19 12:43 97.5 F L 98 20 H 150/59 H 99 Inital Vital Signs reviewed: Yes General: Well nourished, Well developed, No Acute Distress Head: Normocephalic, Atraumatic Eyes: Perrl, EOMI ENT: Moist mucous membranes, No rhinorrhea Neck: Supple, Nontender Cardiovascular: Regular rate, Regular rhythm, No murmurs Respiratory: No distress, CTA bilaterally, Chest nontender Abdomen: Soft, Nontender, Nondistended, Normal bowel sounds Back: Nontender, Normal Inspection Extremities: Tenderness, Edema - Left leg is worse than right. There is some cellulitic changes around the heel on the left with some streaking. The pulses are normal. There is 2+ symmetric edema. Skin: Normal color, No rash Neurological: Alert, Oriented x3, Cranial nerves II-XII grossly intact, Normal Strength, Normal Sensation Psychological: Normal affect, Normal Mood Diagnostic/Tx/Re-eval - Medical Decision Making The patient presents with increasing left lower extremity redness, chills, and symptoms of cellulitis. The patient was bacteremic with strep 3 months ago, thought to be secondary from his chronic venous stasis. Metabolic work-up was pursued. The patient will be treated with broad-spectrum antibiotics. I do feel that he is likely will need hospitalization, especially given his history. Impression 1. Left lower extremity cellulitis ED Disposition - Plan for ED Patient: Referrals: Han Adrian MD [Primary Care Provider] -
[2019-12-16 16:09] LABS: Absolute Lymphocyte Count 1.32 X10^3/uL (0.83-4.51); Absolute Neutrophil Count 7.6 X10^3/uL (2.0-7.7); Basophil# 0.02 X10^3/uL; Basophil% 0.2 % (0-1); Eosinophil# 1.17 X10^3/uL; Eosinophils% 10.8 % (0-5); Hematocrit 34.5 % (40-54); Hemoglobin 10.5 g/dL (13.0-16.5); Lymphocyte # 1.32 X10^3/ul (4.0); Lymphocyte % 12.2 % (19-41); Mean Corp Hgb Conc 30.4 g/dL (32-36); Mean Corpuscular Hgb 31.8 pg (27.0-32.0); Mean Corpuscular Volume 104.5 fL (80-94); Mean Platelet Vol. 11.9 fl (6.2-12.0); Monocyte# 0.74 X10^3/uL; Monocyte% 6.8 % (0-10); NRBC Flagged by Analyzer 0 % (0-5); Neutrophil # 7.57 X10^3/uL (2.7-7.7); Neutrophil % 69.6 % (47-70); Platelet Count 194 K/mm3 (150-450); RBC Distribution Width CV 15.6 % (11.6-14.6); RBC Distribution Width SD 59.8 fl (35.1-43.9); White Blood Count 10.9 K/mm3 (4.4-11.0)
--- NOTE | 2019-12-16 16:10 | RAD_ITS ---
STUDY: X-RAY CHEST REASON FOR EXAM: Male, 69 years old. SENT FROM WOUND CLINIC FOR WORSENING CELLULITIS ON BILATERAL LOWER LEGS TECHNIQUE: Single AP portable view of the chest. COMPARISON: Radiograph 11/25/2019, CT scan 11/26/2019. FINDINGS: Improving aeration of the lungs. Mild hazy density remains in the bilateral lung bases. Small effusions not excluded. There is mild cardiac enlargement. Normal mediastinum and calli. Normal visualized pulmonary arteries. Normal visualized aortic arch and descending thoracic aorta. Normal visualized thoracic spine. Normal visualized ribs, clavicles, and shoulders. There is no demonstrated abnormality of the visualized soft tissue structures of the upper abdomen. RAD/Chest 1 View (Portable) IMPRESSION: Improving aeration of the lungs. Mild hazy density remains in the bilateral lung bases. Electronically Signed: Jaswinder Lima MD at 16:36 EDT , Service support ,
[2019-12-16 16:19] LABS: ALB/GLOB Ratio 0.4 RATIO (0.9-2.4); AST(SGOT) 23 U/L (15-37); Alanine Aminotransfer ALT/SGPT 18 U/L (16-61); Albumin, Serum 2.6 g/dL (3.2-5.0); Alkaline Phosphatase 123 U/L (45-117); Anion Gap 8 (5-15); BUN 57 mg/dL (7-18); BUN/Creat Ratio 21.8 RATIO (10-20); Calcium,Total 8.9 mg/dL (8.5-10.1); Chloride 112 mmol/L (98-107); Creatinine, Serum 2.62 mg/dL (0.70-1.30); EST Glomerular Filtration Rate 26 mL/min (>60); Est Glom Filt Rate - Afr Amer 31 mL/min (>60); Estimated Creatinine Clearance 27.09 ml/min; Globulin 5.8 g/dL (2.2-4.2); Glucose 100 mg/dL (74-106); Potassium 4.5 mmol/L (3.5-5.1); Protein, Total 8.4 g/dL (6.4-8.2); Sodium Level 140 mmol/L (136-145)
--- NOTE | 2019-12-16 16:38 | HP.PCM_ITS ---
<Bob Lugo - Last Filed: 12/16/19 16:38> Problem List (1) Cellulitis Status: Acute (2) DEEPTI (acute kidney injury) Status: Acute (3) Diastolic CHF Status: Acute (4) CKD (chronic kidney disease), stage III Status: Chronic (5) Morbid obesity Status: Chronic (6) Chronic acquired lymphedema Status: Chronic (7) Obesity Status: Chronic (8) HERNÁN (obstructive sleep apnea) Status: Chronic (9) Stage 2 chronic kidney disease Status: Chronic (10) Essential hypertension Status: Chronic (11) Gout Status: Chronic Qualifiers: Gout site: unspecified site Gout etiology: unspecified cause Chronicity: chronic Presence of tophus: without tophus Qualified Code(s): M1A.9XX0 - Chronic gout, unspecified, without tophus (tophi) (12) Type 2 diabetes mellitus Status: Chronic (13) Iron deficiency anemia Status: Chronic Qualifiers: Iron deficiency anemia type: unspecified iron deficiency Qualified Code(s): D50.9 - Iron deficiency anemia, unspecified (14) Hyperlipidemia Status: Chronic Qualifiers: Hyperlipidemia type: unspecified History of Present Illness Date of Admission: 12/16/19 Chief Complaint: LLE swelling The patient is a 69 year old M with pmhx of lymphedema, 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 Liu at the wound center, Type 2 DM, diastolic CHF with recent hospital admission, who presents to the ER from the wound care center with LLE swelling. The patient has had worsening of the swelling of the left foot and has noticed redness, warmth and worsening of his chronic wound. He denies inciting trauma or injury to this area, however he does have peripheral neuropathy in his feet. The patients brother noticed that the left wound was open. The patient notes that he is having so much drainage that it is soaking the dressings and his sheets. He normally does not have drainage like this. He states this is similar to when he last had cellulitis. Denies hx MRSA. Denies fevers/cills. Denies SOB/cough/nausea / vomiting. [] Past Medical History Past Medical History (Chronic Problems): Chronic Problems (Last Reviewed 10/22/19 @ 14:54 by LUCIANO De La Torre) CKD (chronic kidney disease), stage III (Chronic) Morbid obesity (Chronic) Chronic acquired lymphedema (Chronic) Obesity (Chronic) HERNÁN (obstructive sleep apnea) (Chronic) Ulcer of left lower extremity with fat layer exposed (Chronic) Lymphedema of both lower extremities (Chronic) Ulcer of left foot (Chronic) Cardiac murmur (Chronic) Stage 2 chronic kidney disease (Chronic) Essential hypertension (Chronic) Anemia (Chronic) Gout (Chronic) Type 2 diabetes mellitus (Chronic) Iron deficiency anemia (Chronic) Hyperlipidemia (Chronic) Medical History: Medical History (Last Reviewed 10/22/19 @ 14:54 by Shirley Hill, [employer]HOU[employer] ORDER PULLER-C) Cardiac murmur (Chronic) R01.1 Stage 2 chronic kidney disease (Chronic) N18.2 Essential hypertension (Chronic) I10 Anemia (Chronic) D64.9 Gout (Chronic) M10.9 Type 2 diabetes mellitus (Chronic) E11.9 Iron deficiency anemia (Chronic) D50.9 Hyperlipidemia (Chronic) E78.5 DRUJ (distal radioulnar joint) arthrosis, 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 Diabetic neuropathy E11.40 Hyperuricemia E79.0 Chronic kidney disease (Inactive) N18.9 Hypertension (Inactive) I10 Allergies No Known Allergies Allergy (Verified 12/16/19 12:46) Home Medications: Ambulatory Orders Medication Instructions Recorded Ascorbic Acid [Vitamin C] 500 mg PO DAILY 03/08/17 Magnesium 500 mg PO DAILY 03/08/17 allopurinol 300 mg tablet 300 mg PO DAILY 08/23/19 cholecalciferol (vitamin D3) 125 125 mcg PO DAILY 08/23/19 mcg (5,000 unit) capsule cyanocobalamin (vitamin B-12) 1,000 mcg PO DAILY 08/24/19 1,000 mcg capsule omega-3 fatty acids 1,000 mg 1,000 mg PO DAILY 08/24/19 capsule Multivitamin with Minerals 1 tab PO DAILY 10/06/19 [Multiple Vitamin] Simvastatin 40 mg PO QHS 10/06/19 Carvedilol [Coreg (Beta [address])] 6.25 mg PO BID #0 11/27/19 Ferrous Sulfate 325 mg PO BID 12/16/19 Furosemide [Lasix] 40 mg PO DAILY 12/16/19 Potassium Chloride [Klor-Con M10] 20 meq PO DAILY 12/16/19 Surgical History: Surgical History (Last Reviewed 10/22/19 @ 14:54 by LUCIANO De La Torre) S/P colonoscopy Z98.890 Status post tonsillectomy Z90.89 Surgical History: no surgical history, tonsillectomy Psychiatric History: No pertinent psych hx Lives: Alone Smoking Status: Former smoker Tobacco Use: Non-smoker Alcohol: None Drugs: None - *Family History Maternal Family History: Family History (Last Reviewed 12/16/19 @ 16:44 by DEWEY Juan) Mother Cancer Father Hypertension History Items: Cancer - Mother with history of ovarian cancer. Paternal Family History: Family History (Last Reviewed 12/16/19 @ 16:44 by DEWEY Juan) Mother Cancer Father Hypertension History Items: Hypertension, - - Head trauma. Review of Systems Constitutional: Denies: Chills, Fever, Weight Change, Fatigue HEENT: Denies: Head Aches, Sinus Congestion, Sinus Drainage Cardiovascular: Reports: Edema. Denies: Chest Pain, Heaviness, Light Headedness, Palpitations, Paroxysmal Noc. Dyspnea, Syncope Respiratory: Denies: Cough, Shortness of Breath, Shortness of breath at rest, Shortness of breath upon exertion, Sputum production Gastrointestinal: Denies: Abdominal Pain, Diarrhea, Nausea, Vomiting Genitourinary: Denies: Dysuria, Hematuria, Hesitancy, Urgency Musculoskeletal: Denies: Joint Pain, Joint Tenderness, Muscle pain Skin: Reports: Skin Changes, Wounds. Denies: Lesions, Rash Neurological: Denies: Confusion, Focal weakness, Numbness, Tingling Psychiatric: Denies: Anxiety, Depression, Homicidal Ideations, Suicidal Ideations Hematologic/ Lymphatic: Denies: Easy Bruising, Easy Bleeding VTE Information - Inpt Only VTE Present on Admission: No VTE Mechan Device Prophylaxis: None VTE Pharm Prophylaxis ordered?: Yes Patient Problems: Active and Suspected Problems (Last Reviewed 10/22/19 @ 14:54 by STEVE De La TorreC) Cellulitis (Acute) Diastolic CHF (Acute) Ulcer of right lower extremity with fat layer exposed (Acute) - Physical Exam Vitals/I&O's: Vital Signs Temp Pulse Resp BP Pulse Ox 97.5 F L 98 20 H 150/59 H 99 12/16/19 12:43 12/16/19 12:43 12/16/19 12:43 12/16/19 12:43 12/16/19 12:43 Oxygen Delivery Method Room Air Weight: 293 lb 3.437 oz Body Mass Index (BMI) 42.0 General: Alert, Oriented x3, Cooperative HEENT: Atraumatic, PERRLA, EOMI, Normocephalic Neck: Supple, No JVD, Negative Carotid Bruits Lungs: Clear to auscultation, Normal air movement Cardiovascular: Regular rate, No murmurs Abdomen: Bowel Sounds Present, Soft, Non Tender Extremities: Capillary Refill Less than 3 Seconds, Edema Skin: Ulcer/ Wound Musculoskeletal: No Tenderness to Palpation of Joints or Extremities Neurological: Cranial nerves II-XII grossly intact Psych/Mental Status: Normal Affect, Appropriate, Alert and oriented to time, place, person, mood and affect Laboratory Results 12/16/19 15:35: WBC 10.9, RBC 3.30 L, Hgb 10.5 L, Hct 34.5 L, MCV 104.5 H, MCH 31.8, MCHC 30.4 L, RDW Std Deviation 59.8 H, RDW Coeff of Inocencio 15.6 H, Plt Count 194, MPV 11.9, Immature Gran % (Auto) 0.400, Neut % (Auto) 69.6, Lymph % (Auto) 12.2 L, Mccracken % (Auto) 6.8, Eos % (Auto) 10.8 H, Baso % (Auto) 0.2, Absolute Neuts (auto) 7.6, Absolute Lymphs (auto) 1.32, Nucleated RBC % 0 12/16/19 15:35: Sodium 140, Potassium 4.5, Chloride 112 H, Carbon Dioxide 20.0 L , Anion Gap 8, BUN 57 H, Creatinine 2.62 H, Estim Creat Clear Calc 27.09, Est GFR (MDRD) Af Amer 31 L, Est GFR (MDRD) Non-Af 26 L, BUN/Creatinine Ratio 21.8 H , Glucose 100, Calcium 8.9, Total Bilirubin 0.50, AST 23, ALT 18, Alkaline Phosphatase 123 H, Total Protein 8.4 H, Albumin 2.6 L, Globulin 5.8 H, Albumin/Globulin Ratio 0.4 L 12/16/19 15:35: B-Natriuretic Peptide Pending Current Medications Vancomycin HCl 1,500 mg/ (Sodium Chloride) 530 mls @ 250 mls/hr IV X1 ONE Stop: 12/16/19 18:27 Piperacillin Sod/Tazobactam (Sod 3.375 gm/ Sodium Chloride) 50 mls @ 12.5 mls/hr IV X1 ONE Stop: 12/16/19 20:34 Assessment/Plan All Active Problems (Last Reviewed 10/22/19 @ 14:54 by LUCIANO De La Torre) Hospital-acquired pneumonia (Acute) Acute respiratory failure (Acute) Sepsis (Acute) Pulmonary vascular congestion (Acute) Cellulitis (Acute) Diastolic CHF (Acute) Bacteremia (Acute) Ulcer of right lower extremity with fat layer exposed (Acute) Cellulitis of left lower extremity (Acute) Septic shock (Acute) Septic shock (Acute) DEEPTI (acute kidney injury) (Acute) 1. LLE cellulitis - no fever/leukocytosis. Worsening of chronic LLE wound with increased drainage, sloughing, redness, warmth, swelling. Follows Dr. Liu for wound care and Dr. Roy for podiatry. Obtain Xray. Consider Podiatry consult. Consult wound care nurse. Continue vanco/cefazolin. Obtain wound cultures and MRSA/MSSA PCR. Blood culture pending. 2. DEEPTI on CKDIII - hold nephrotoxins and give gentle hydration. Pt with recent CHF exacerbation, avoid overload. 3. Macrocytic anemia, hx iron deficiency. this is actually improved from recent. continue iron, b12. 4. DMt2 with morbid obesity - not on medications. diet controlled. Check A1C. 5. Lymphedema - continue daily lymphedema pumps 6. Hx Gout - allopurinol 7. HLD - statin 8. HERNÁN - bipap qhs 9. HTN - mildly elevated. trend. DVT ppx: heparin DC planning: pt interested in SNF. This patient was seen by Bob Lugo PA-C under the supervision of Doctor Camille. 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 Diabetic neuropathy E11.40 Hyperuricemia E79.0 Chronic kidney disease (Inactive) N18.9 Hypertension (Inactive) I10 Allergies No Known Allergies Allergy (Verified 12/16/19 12:46) Surgical History: Surgical History (Last Reviewed 10/22/19 @ 14:54 by Shirley Hill [employer] ORDER PULLER-C) S/P colonoscopy Z98.890 Status post tonsillectomy Z90.89 - *Family History Maternal Family History: Family History (Last Reviewed 12/16/19 @ 16:44 by DEWEY Juan) Mother Cancer Father Hypertension Paternal Family History: Family History (Last Reviewed 12/16/19 @ 16:44 by DEWEY Juan) Mother Cancer Father Hypertension - Physical Exam Vitals/I&O's: Vital Signs Temp Pulse Resp BP Pulse Ox 97.3 F L 102 H 28 H 145/63 H 99 12/16/19 17:23 12/16/19 17:23 12/16/19 17:23 12/16/19 17:23 12/16/19 17:23 Oxygen Delivery Method Room Air Weight: 133 kg Body Mass Index (BMI) 42.0 Laboratory Results 12/16/19 15:35: WBC 10.9, RBC 3.30 L, Hgb 10.5 L, Hct 34.5 L, MCV 104.5 H, MCH 31.8, MCHC 30.4 L, RDW Std Deviation 59.8 H, RDW Coeff of Inocencio 15.6 H, Plt Count 194, MPV 11.9, Immature Gran % (Auto) 0.400, Neut % (Auto) 69.6, Lymph % (Auto) 12.2 L, Mccracken % (Auto) 6.8, Eos % (Auto) 10.8 H, Baso % (Auto) 0.2, Absolute Neuts (auto) 7.6, Absolute Lymphs (auto) 1.32, Nucleated RBC % 0 12/16/19 15:35: Sodium 140, Potassium 4.5, Chloride 112 H, Carbon Dioxide 20.0 L , Anion Gap 8, BUN 57 H, Creatinine 2.62 H, Estim Creat Clear Calc 27.09, Est GFR (MDRD) Af Amer 31 L, Est GFR (MDRD) Non-Af 26 L, BUN/Creatinine Ratio 21.8 H , Glucose 100, Calcium 8.9, Total Bilirubin 0.50, AST 23, ALT 18, Alkaline Phosphatase 123 H, Total Protein 8.4 H, Albumin 2.6 L, Globulin 5.8 H, Albumin/Globulin Ratio 0.4 L 12/16/19 15:35: B-Natriuretic Peptide 690.9 H 12/16/19 17:35: PT 16.0 H, INR 1.3 12/16/19 17:35: Lactic Acid 1.2 Current Medications Piperacillin Sod/Tazobactam (Sod 3.375 gm/ Sodium Chloride) 50 mls @ 12.5 mls/hr IV X1 ONE Stop: 12/16/19 20:34 Last Admin: 12/16/19 17:46 Dose: 12.5 mls/hr Documented by: Assessment/Plan This patient was seen in conjunction with DEWEY Juan. I have independently interviewed and examined the patient and reviewed pertinent historical, laboratory, and other data. Please refer to DEWEY Juan note for his patient's presentation, findings, and recommendations. I have reviewed and his note and concur with his documentation 69-year-old male with multiple comorbidities of account for HERNÁN, severe obstructive lung disease, chronic diastolic CHF, who was recently admitted on 11/25/19 and discharged on 11/27/19 with pneumonia and acute on chronic diastolic CHF. Patient was discharged on Lasix. He has been following up in the wound center. He has chronic lymphedema and wears a leg compression pump. He has had recurrence of wounds on his lower extremity. He denied any fever or chills. He followed up at the wound center and was sent to the hospital because of new wound developing on his left foot. Patient lives alone and is unable to care for himself. He is open to going to a alf facility. Physical Exam: Gen: Comfortable, morbidly obese, not pale, not jaundiced CVS:HS I +II, regular, no murmurs RESP: Diminished at lung bases GI: BS present and normal, soft, nontender, no palpable organs EXT: Severe bilateral pedal edema +4 with erythema of the lower extremities and chronic venostasis of the skin Chronic wounds of the left lower extremity, wound dressing in place on both legs but more in the left lower leg and foot ASSESSMENT: 1. Severe cellulitis of the lower extremities with ulceration of the left lower foot 2. DEEPTI on CKD stage III 3. Chronic diastolic CHF 4. Anemia 5. Type II DM, diet controlled 6. Chronic lymphedema 7. Sleep apnea 8. Obstructive lung disease 9. Hypertension 10. Morbid obesity, BMI 42.1 Plan: Previous wound cultures were positive for Streptococcus, No MRSA seen IV Zosyn We will hold off on IV vancomycin especially in the light of DEEPTI Wound RN consult Elevate extremities Will hold off on IV fluids in the light of elevated BNPpep and possible acute on chronic diastolic CHF Hold off Lasix, continue with fluid restriction, with blood work in a.m. Doppler ultrasounds of both lower extremities Continue on home carvedilol, oral iron, blood glucose checks with insulin sliding scale Inpatient E&M: 42120 Init Hosp L3
[2019-12-16 16:47] VITALS: RESP 16
--- NOTE | 2019-12-16 16:49 | ED.RN ---
WAITING FOR LAB TO DRAW 2ND SET OF CULTURES THEN WILL ADMINISTER ANTIBIOTICS.
[2019-12-16 17:01] LABS: BNP,B-Type NATRIURETIC PEPTIDE 690.9 pg/mL (0-100)
[2019-12-16 17:23] VITALS: BP 145/63; PULSE 102; RESP 28; TEMP 36.3; O2SAT 99
[2019-12-16 18:06] LABS: International Normalized Ratio 1.3
[2019-12-16 18:12] LABS: Lactic Acid 1.2 mmol/L (0.4-1.9)
[2019-12-16 18:39] VITALS: PULSE 110; BMI 40.8; BMI 40.9
--- NOTE | 2019-12-16 19:21 | VDLE_ITS ---
Reason For Study: swelling RIGHT LEFT GSV is normal. GSV is normal. CFV is compressible, spontaneous, phasic, CFV is compressible, spontaneous, phasic, competent and demonstrates normal competent, and demonstrates normal augmentation. augmentation. FV is compressible, spontaneous, phasic, FV is compressible, spontaneous, phasic, competent and demonstrates normal competent and demonstrates normal augmentation. augmentation. POP V is compressible, spontaneous, phasic, POP V is compressible, spontaneous, phasic, competent and demonstrates normal competent and demonstrates normal augmentation. augmentation. T/P Trunk is compressible. T/P Trunk is compressible. PTV is compressible. PTV is compressible. Unable to visualize peroneal veins. Unable to visualize peroneal veins. Procedure Exam performed portable in patient room. The study was technically difficult. Due to BLE edema. A preliminary report was called and/or faxed to [facility]. Interpretation Summary No evidence for acute deep venous thrombosis bilateral lower extremities with patent and compressible bilateral great saphenous veins. Limitation noted of inability to visualize bilateral peroneal veins. This exam was deemed to be technically difficult Ordering Physician: Haily Obrien Referring Physician: Jaswinder Adrian Performed By: Gretel Beebe, BRITTA, RVT
[2019-12-16 19:50] VITALS: BP 132/107; PULSE 110; RESP 18; TEMP 36.6; O2SAT 97
[2019-12-16 21:27] VITALS: BP 118/49; PULSE 98; RESP 18; TEMP 36.7; O2SAT 99
[2019-12-16] MEDS: Atorvastatin Calcium 20 MG Tablet PO (21:36)
[2019-12-16] MEDS: Heparin Injection (Vial) 5,000 UNIT/ML VIAL 5000 UNIT SC (21:36)
[2019-12-16] MEDS: Carvedilol 6.25 MG Tablet PO (21:36)
[2019-12-16 22:50] LABS: Bedside Glucose 134 mg/dL (70-110)
[2019-12-17 04:00] VITALS: BP 116/50; PULSE 93; RESP 18; TEMP 36.6; O2SAT 95
[2019-12-17 05:25] LABS: Absolute Lymphocyte Count 0.89 X10^3/uL (0.83-4.51); Absolute Neutrophil Count 5.4 X10^3/uL (2.0-7.7); Basophil# 0.02 X10^3/uL; Basophil% 0.3 % (0-1); Eosinophil# 0.59 X10^3/uL; Eosinophils% 7.9 % (0-5); Hematocrit 26.9 % (40-54); Hemoglobin 8.2 g/dL (13.0-16.5); Lymphocyte # 0.89 X10^3/ul (4.0); Lymphocyte % 11.9 % (19-41); Mean Corp Hgb Conc 30.5 g/dL (32-36); Mean Corpuscular Hgb 31.3 pg (27.0-32.0); Mean Corpuscular Volume 102.7 fL (80-94); Mean Platelet Vol. 11.4 fl (6.2-12.0); Monocyte# 0.53 X10^3/uL; Monocyte% 7.1 % (0-10); NRBC Flagged by Analyzer 0 % (0-5); Neutrophil # 5.44 X10^3/uL (2.7-7.7); Neutrophil % 72.4 % (47-70); Platelet Count 208 K/mm3 (150-450); RBC Distribution Width CV 15.5 % (11.6-14.6); RBC Distribution Width SD 58.5 fl (35.1-43.9); Red Blood Count 2.62 M/mm3 (4.6-6.2); White Blood Count 7.5 K/mm3 (4.4-11.0)
[2019-12-17 05:44] LABS: ALB/GLOB Ratio 0.4 RATIO (0.9-2.4); AST(SGOT) 21 U/L (15-37); Alanine Aminotransfer ALT/SGPT 17 U/L (16-61); Alkaline Phosphatase 101 U/L (45-117); Anion Gap 5 (5-15); BUN 55 mg/dL (7-18); Calcium,Total 8.3 mg/dL (8.5-10.1); Chloride 111 mmol/L (98-107); Creatinine, Serum 2.39 mg/dL (0.70-1.30); EST Glomerular Filtration Rate 29 mL/min (>60); Est Glom Filt Rate - Afr Amer 35 mL/min (>60); Globulin 4.9 g/dL (2.2-4.2); Glucose 131 mg/dL (74-106); Potassium 4.3 mmol/L (3.5-5.1); Protein, Total 6.9 g/dL (6.4-8.2); Sodium Level 138 mmol/L (136-145)
[2019-12-17 07:01] LABS: Bedside Glucose 126 mg/dL (70-110)
[2019-12-17 07:44] VITALS: RESP 16; O2SAT 96
[2019-12-17] MEDS: Allopurinol 300 MG Tablet PO (07:59)
[2019-12-17] MEDS: Cyanocobalamin 500 MCG Tablet 1000 MCG PO (08:07)
[2019-12-17] MEDS: Carvedilol 6.25 MG Tablet PO ×2 (08:07→21:38)
[2019-12-17] MEDS: Ascorbic Acid 500 MG Tablet PO (08:09)
[2019-12-17] MEDS: Ferrous Sulfate 325 MG Tablet PO ×2 (08:13→16:57)
--- NOTE | 2019-12-17 08:44 | NURSING ---
[facility] in room doing dopple studies on BLE
[2019-12-17 10:00] VITALS: BP 110/54; PULSE 98; RESP 18; TEMP 37.1; O2SAT 100
[2019-12-17] MEDS: Heparin Injection (Vial) 5,000 UNIT/ML VIAL 5000 UNIT SC ×2 (10:57→21:38)
[2019-12-17 11:00] VITALS: PULSE 80
[2019-12-17] MEDS: Furosemide 40 MG/4 ML Vial IV ×2 (11:00→16:57)
[2019-12-17] MEDS: 0.9% Saline Lock 10 ML Syringe IV ×2 (11:01→16:57)
--- NOTE | 2019-12-17 11:05 | NURSING ---
wound photo: left lower leg
--- NOTE | 2019-12-17 11:06 | NURSING ---
wound photo: right lower leg
--- NOTE | 2019-12-17 11:21 | PN_ITS ---
<Bob Lugo - Last Filed: 12/17/19 11:21> Patient Problems: Active and Suspected Problems (Last Reviewed 10/22/19 @ 14:54 by LUCIANO De La Torre) Cellulitis (Acute) Diastolic CHF (Acute) Ulcer of right lower extremity with fat layer exposed (Acute) Reason for Visit: LLE swelling Subjective: Pt with no fever/chills overnight. Wounds have been cleaned and skin cleared away, and the underlying tissue does not appear cellulitis. Swelling is greater in left vs right. Ongoing excessive seepage soaking the dressings. Minimal pain. No SOB. He has some heel and foot pain however he states this does not feel anything like when his gout is acting up. Vitals/I&O's: Vital Signs Temp Pulse Resp BP Pulse Ox 98.7 F 98 18 110/54 L 100 12/17/19 10:00 12/17/19 10:00 12/17/19 10:00 12/17/19 10:00 12/17/19 10:00 Oxygen Delivery Method Room Air Weight: 292 lb 1.8 oz Body Mass Index (BMI) 40.8 Intake and Output for Last 24 Hours 12/15/19 12/16/19 12/17/19 23:59 23:59 23:59 Intake Total 50 / 450 1330 / 1330 Output Total 450 / 450 Balance 50 / 200 880 / 880 General: Alert, Oriented x3, Cooperative HEENT: Atraumatic, PERRLA, EOMI, Normocephalic Neck: Supple, No JVD, Negative Carotid Bruits Lungs: Clear to auscultation, Normal air movement Cardiovascular: Regular rate, No murmurs Abdomen: Bowel Sounds Present, Soft, Non Tender Extremities: Capillary Refill Less than 3 Seconds, Edema - lymphedema L>R excessive serous drainage. Skin: No rashes, No breakdown Musculoskeletal: No Tenderness to Palpation of Joints or Extremities Neurological: Cranial nerves II-XII grossly intact Psych/Mental Status: Normal Affect, Appropriate, Alert and oriented to time, place, person, mood and affect Laboratory Results 12/16/19 15:35: WBC 10.9, RBC 3.30 L, Hgb 10.5 L, Hct 34.5 L, MCV 104.5 H, MCH 31.8, MCHC 30.4 L, RDW Std Deviation 59.8 H, RDW Coeff of Inocencio 15.6 H, Plt Count 194, MPV 11.9, Immature Gran % (Auto) 0.400, Neut % (Auto) 69.6, Lymph % (Auto) 12.2 L, [place] % (Auto) 6.8, Eos % (Auto) 10.8 H, Baso % (Auto) 0.2, Absolute Neuts (auto) 7.6, Absolute Lymphs (auto) 1.32, Nucleated RBC % 0 12/16/19 15:35: Sodium 140, Potassium 4.5, Chloride 112 H, Carbon Dioxide 20.0 L , Anion Gap 8, BUN 57 H, Creatinine 2.62 H, Estim Creat Clear Calc 27.09, Est GFR (MDRD) Af Amer 31 L, Est GFR (MDRD) Non-Af 26 L, BUN/Creatinine Ratio 21.8 H , Glucose 100, Calcium 8.9, Total Bilirubin 0.50, AST 23, ALT 18, Alkaline Phosphatase 123 H, Total Protein 8.4 H, Albumin 2.6 L, Globulin 5.8 H, Albumin/Globulin Ratio 0.4 L 12/16/19 15:35: B-Natriuretic Peptide 690.9 H 12/16/19 17:35: PT 16.0 H, INR 1.3 12/16/19 17:35: Lactic Acid 1.2 12/16/19 21:24: POC Glucose 134 H 12/17/19 05:08: WBC 7.5, RBC 2.62 L, Hgb 8.2 L, Hct 26.9 L, MCV 102.7 H, MCH 31.3, MCHC 30.5 L, RDW Std Deviation 58.5 H, RDW Coeff of Inocencio 15.5 H, Plt Count 208, MPV 11.4, Immature Gran % (Auto) 0.400, Neut % (Auto) 72.4 H, Lymph % (Auto) 11.9 L, [place] % (Auto) 7.1, Eos % (Auto) 7.9 H, Baso % (Auto) 0.3, Absolute Neuts (auto) 5.4, Absolute Lymphs (auto) 0.89, Nucleated RBC % 0 12/17/19 05:08: Sodium 138, Potassium 4.3, Chloride 111 H, Carbon Dioxide 22.0, Anion Gap 5, BUN 55 H, Creatinine 2.39 H, Estim Creat Clear Calc 29.70, Est GFR (MDRD) Af Amer 35 L, Est GFR (MDRD) Non-Af 29 L, BUN/Creatinine Ratio 23.0 H, Glucose 131 H, Calcium 8.3 L, Total Bilirubin 0.40, AST 21, ALT 17, Alkaline Phosphatase 101, Total Protein 6.9, Albumin 2.0 L, Globulin 4.9 H, Albumin/Globulin Ratio 0.4 L 12/17/19 06:50: POC Glucose 126 H 12/17/19 11:05: COVID-19 ([facility]) Pending Current Medications Acetaminophen (Tylenol) 650 mg PO Q6H PRN PRN PRN Reason: Pain Score 1-10/Temp > 100.7 F [facility]) [facility] Ascorbic Acid (Vitamin C) 500 mg PO DAILY [facility] Last Admin: 12/17/19 08:09 Dose: 500 mg Documented by: Atorvastatin Calcium (Lipitor) 20 mg PO QHS [facility] Last Admin: 12/16/19 21:36 Dose: 20 mg Documented by: Carvedilol (Coreg) 6.25 mg PO BID [facility] Last Admin: 12/17/19 08:07 Dose: 6.25 mg Documented by: Cyanocobalamin (Vitamin B12) 1,000 mcg PO DAILY [facility] Last Admin: 12/17/19 08:07 Dose: 1,000 mcg Documented by: Dextrose (D50w Syringe) 0 gm IV X1 PRN; Protocol PRN Reason: Hypoglycemia Ferrous Sulfate (Ferrous Sulfate) 325 mg PO BIDCM [facility] Last Admin: 12/17/19 08:13 Dose: 325 mg Documented by: Furosemide (Lasix) 40 mg IV BID@1000,1800 [facility] Last Admin: 12/17/19 11:00 Dose: 40 mg Documented by: Glucagon () 1 mg IM .X1 PRN PRN Reason: Hypoglycemia Heparin Sodium (Porcine) (Heparin Na) 5,000 unit SC Q12 [facility] Last Admin: 12/17/19 10:57 Dose: 5,000 unit Documented by: Insulin Human Lispro (Humalog Kwikpen (Bkc)) 0 unit SC ACHS [facility]; Protocol Last Admin: 12/17/19 06:52 Dose: Not Given Documented by: Ondansetron HCl (Zofran) 4 mg IV Q8H PRN PRN PRN Reason: NAUSEA/VOMITING Sodium Chloride () 10 - 40 ml IV UD PRN PRN Reason: SALINE FLUSH Last Admin: 12/17/19 11:01 Dose: 10 ml Documented by: STROKE Vital Signs/Narrative: Vital Signs Temp Pulse Resp BP Pulse Ox 12/17/19 10:00 98.7 F 98 18 110/54 L 100 12/17/19 07:44 16 96 Medical Necessity - Tobacco Use Smoking Status: Never smoker Tobacco Use: Cigars Assessment/Plan All Active Problems (Last Reviewed 10/22/19 @ 14:54 by Shirley Hill NP-C) Hospital-acquired pneumonia (Acute) Acute respiratory failure (Acute) Sepsis (Acute) Pulmonary vascular congestion (Acute) Cellulitis (Acute) Diastolic CHF (Acute) Bacteremia (Acute) Ulcer of right lower extremity with fat layer exposed (Acute) Cellulitis of left lower extremity (Acute) Septic shock (Acute) Septic shock (Acute) DEEPTI (acute kidney injury) (Acute) 1. LLE cellulitis ruled out. worsening of lymphedema. wound care consulted. pt needs multiple dressing changes per day with the excessive seepage he has soaking the gauze. Pt to obtain lymphedema pumps today and we will apply. -LE duplex US for DVT pending. 2. DEEPTI on CKDIII - improved. 3. Macrocytic anemia, hx iron deficiency. this is actually improved from recent. continue iron, b12. 4. DMt2 with morbid obesity - not on medications. diet controlled. Check A1C. 5. Lymphedema - continue daily lymphedema pumps 6. Hx Gout - allopurinol. symptoms not c/w gout flare. 7. HLD - statin 8. HERNÁN - bipap qhs 9. HTN - mildly elevated. trend. DVT ppx: heparin DC planning: pt interested in SNF. This patient was seen by Bob Lugo PA-C under the supervision of Doctor Karla wheeler <Guillermo Fuchs - Last Filed: 12/17/19 12:40> Subjective: Patient has been having weeping from his legs and his dressings have been getting saturated frequently. States that his legs are red and that chronic his left leg is more swollen than his right chronically. Denies any other constitutional symptoms such as fever or chills. Vitals/I&O's: Vital Signs Temp Pulse Resp BP Pulse Ox 37.1 C 98 18 110/54 L 100 12/17/19 10:00 12/17/19 10:00 12/17/19 10:00 12/17/19 10:00 12/17/19 10:00 Oxygen Delivery Method Room Air Weight: 132.5 kg Body Mass Index (BMI) 40.8 Intake and Output for Last 24 Hours 12/15/19 12/16/19 12/17/19 23:59 23:59 23:59 Intake Total 50 / 450 1330 / 1330 Output Total 450 / 450 Balance 50 / 200 880 / 880 General: Alert, Cooperative HEENT: Atraumatic, Normocephalic Lungs: Clear to auscultation, Normal air movement Cardiovascular: Regular rate, Regular Rhythm, Normal S1, Normal S2 Abdomen: Bowel Sounds Present, Soft, Non Tender Extremities: Edema Skin: - - Venous stasis changes in the lower extremities. Scaling of skin. Some rubor noted but no obvious warmth nor any obvious cellulitis. Laboratory Results 12/16/19 15:35: WBC 10.9, RBC 3.30 L, Hgb 10.5 L, Hct 34.5 L, MCV 104.5 H, MCH 31.8, MCHC 30.4 L, RDW Std Deviation 59.8 H, RDW Coeff of Inocencio 15.6 H, Plt Count 194, MPV 11.9, Immature Gran % (Auto) 0.400, Neut % (Auto) 69.6, Lymph % (Auto) 12.2 L, [place] % (Auto) 6.8, Eos % (Auto) 10.8 H, Baso % (Auto) 0.2, Absolute Neuts (auto) 7.6, Absolute Lymphs (auto) 1.32, Nucleated RBC % 0 12/16/19 15:35: Sodium 140, Potassium 4.5, Chloride 112 H, Carbon Dioxide 20.0 L , Anion Gap 8, BUN 57 H, Creatinine 2.62 H, Estim Creat Clear Calc 27.09, Est GFR (MDRD) Af Amer 31 L, Est GFR (MDRD) Non-Af 26 L, BUN/Creatinine Ratio 21.8 H , Glucose 100, Calcium 8.9, Total Bilirubin 0.50, AST 23, ALT 18, Alkaline Phosphatase 123 H, Total Protein 8.4 H, Albumin 2.6 L, Globulin 5.8 H, Albumin/Globulin Ratio 0.4 L 12/16/19 15:35: B-Natriuretic Peptide 690.9 H 12/16/19 17:35: PT 16.0 H, INR 1.3 12/16/19 17:35: Lactic Acid 1.2 12/16/19 21:24: POC Glucose 134 H 12/17/19 05:08: WBC 7.5, RBC 2.62 L, Hgb 8.2 L, Hct 26.9 L, MCV 102.7 H, MCH 31.3, MCHC 30.5 L, RDW Std Deviation 58.5 H, RDW Coeff of Inocencio 15.5 H, Plt Count 208, MPV 11.4, Immature Gran % (Auto) 0.400, Neut % (Auto) 72.4 H, Lymph % (Auto) 11.9 L, [place] % (Auto) 7.1, Eos % (Auto) 7.9 H, Baso % (Auto) 0.3, Absolute Neuts (auto) 5.4, Absolute Lymphs (auto) 0.89, Nucleated RBC % 0 12/17/19 05:08: Sodium 138, Potassium 4.3, Chloride 111 H, Carbon Dioxide 22.0, Anion Gap 5, BUN 55 H, Creatinine 2.39 H, Estim Creat Clear Calc 29.70, Est GFR (MDRD) Af Amer 35 L, Est GFR (MDRD) Non-Af 29 L, BUN/Creatinine Ratio 23.0 H, Glucose 131 H, Calcium 8.3 L, Total Bilirubin 0.40, AST 21, ALT 17, Alkaline Phosphatase 101, Total Protein 6.9, Albumin 2.0 L, Globulin 4.9 H, Albumin/Globulin Ratio 0.4 L 12/17/19 06:50: POC Glucose 126 H 12/17/19 11:05: COVID-19 ([facility]) Negative 12/17/19 11:58: POC Glucose 144 H Current Medications Acetaminophen (Tylenol) 650 mg PO Q6H PRN PRN PRN Reason: Pain Score 1-10/Temp > 100.7 F Allop[facility] ([facility]oprim) [facility] Ascorbic Acid (Vitamin C) 500 mg PO DAILY [facility] Last Admin: 12/17/19 08:09 Dose: 500 mg Documented by: Atorvastatin Calcium (Lipitor) 20 mg PO QHS [facility] Last Admin: 12/16/19 21:36 Dose: 20 mg Documented by: Carvedilol (Coreg) 6.25 mg PO BID [facility] Last Admin: 12/17/19 08:07 Dose: 6.25 mg Documented by: Cyanocobalamin (Vitamin B12) 1,000 mcg PO DAILY [facility] Last Admin: 12/17/19 08:07 Dose: 1,000 mcg Documented by: Dextrose (D50w Syringe) 0 gm IV X1 PRN; Protocol PRN Reason: Hypoglycemia Ferrous Sulfate (Ferrous Sulfate) 325 mg PO BIDCM [facility] Last Admin: 12/17/19 08:13 Dose: 325 mg Documented by: Furosemide (Lasix) 40 mg IV BID@1000,1800 [facility] Last Admin: 12/17/19 11:00 Dose: 40 mg Documented by: Glucagon () 1 mg IM .X1 PRN PRN Reason: Hypoglycemia Heparin Sodium (Porcine) (Heparin Na) 5,000 unit SC Q12 [facility] Last Admin: 12/17/19 10:57 Dose: 5,000 unit Documented by: Insulin Human Lispro (Humalog Kwikpen (Bkc)) 0 unit SC ACHS [facility]; Protocol Last Admin: 12/17/19 06:52 Dose: Not Given Documented by: Ondansetron HCl (Zofran) 4 mg IV Q8H PRN PRN PRN Reason: NAUSEA/VOMITING Sodium Chloride () 10 - 40 ml IV UD PRN PRN Reason: SALINE FLUSH Last Admin: 12/17/19 11:01 Dose: 10 ml Documented by: STROKE Vital Signs/Narrative: Vital Signs Temp Pulse Resp BP Pulse Ox 12/17/19 10:00 37.1 C 98 18 110/54 L 100 Assessment/Plan Patient seen and examined independently. Data reviewed. I agree with the above note by the physician language assistant. 1. Lymphedema: This is a more of a chronic process but patient still does have extensive swelling in his lower extremities. Patient has echocardiogram previously that was not able to record his right heart pressures but I suspect patient has some element of pulmonary hypertension which is contributing to this. Is currently on room air so is not having a respiratory distress from this. Try to continue diuresis but will need to exercise caution with his kidney function being elevated at this time. 2. Chronic kidney disease stage III: Creatinine is elevated but seems like this is where he lives its been variable ranging from 1.6-3.04 dating back to April of last year. Just caution in regards to diuresis so as not to overdiuresis. Inpatient E&M: 47093 Subs Hosp L2
--- NOTE | 2019-12-17 11:33 | CASEMGMT ---
Addendum entered by Cristina Pelayo 12/17/19 12:19: Green sheet on chart. Original Note: Social Work Note Pt is readmit, was on PCU from 11/25/2019-11/27/2019l. See previous assessment done by CM. SW received consult that pt would like to go to TCU at discharge. SW placed a call to [facility] in [facility]CU. [facility] does have beds available in TCU, can accept pt tomorrow. SW in to speak with pt. SW introduced self and role at [facility]. Pt is alert and orientated x3. Pt confirms that he would like SNF at this time and prefers TCU. SW did provide pt with list of SNF that accept pt's insurance. Pt still prfers [facility] TCU. SW informed pt that TCU does have a bed available for pt and is able to accept pt when medically cleared. Pt states understanding, denied additional needs or concerns at this time. NANO updated charge nurse that COVID test will need to be ordered. Plan: TCU, likely tomorrow. Pt will need negative COVID test. Cristina Pelayo CHIEF II DISPATCHER, TUBE DEPATCHER
[2019-12-17 12:00] LABS: Bedside Glucose 144 mg/dL (70-110)
[2019-12-17 12:24] LABS: Probe Check PASS; Specimen Processing Control PASS
--- NOTE | 2019-12-17 13:14 | NURSING ---
pt previously had a [place] Living Will copy in the chart. Sister brought updated [place] Living Will
--- NOTE | 2019-12-17 14:17 | CASEMGMT ---
Social Work Note SW received message from pt's sister/POA Gretel requesting a call back to discuss discharge plans. SW in to speak with pt. Pt states his sister Gretel was at [facility] but she had to leave. SW asked pt if this worker can call his sister to give an update and pt gives this worker permission to call Gretel. SW placed a call to Gretel and updated her on discharge plan of pt going to TCU once medically cleared. Gretel states understanding. Plan: TCU, likely tomorrow Cristina Pelayo CAMERA STORAGE CLERK, BOOM PUMP OPERATOR
[2019-12-17 14:36] VITALS: BP 130/59; PULSE 92; RESP 18; TEMP 36.9; O2SAT 100
[2019-12-17 16:15] LABS: Bedside Glucose 123 mg/dL (70-110)
[2019-12-17 20:00] VITALS: BP 109/55; PULSE 96; RESP 18; TEMP 36.9; O2SAT 98
[2019-12-17] MEDS: Atorvastatin Calcium 20 MG Tablet PO (21:39)
[2019-12-17 21:45] LABS: Bedside Glucose 148 mg/dL (70-110)
[2019-12-18 02:20] VITALS: BP 120/59; PULSE 88; RESP 16; TEMP 37.1; O2SAT 97
[2019-12-18 06:46] LABS: Bedside Glucose 120 mg/dL (70-110)
[2019-12-18 07:04] LABS: Absolute Neutrophil Count 4.9 X10^3/uL (2.0-7.7); Basophil# 0.01 X10^3/uL; Basophil% 0.1 % (0-1); Eosinophils% 8.7 % (0-5); Hematocrit 24.5 % (40-54); Hemoglobin 7.6 g/dL (13.0-16.5); Lymphocyte % 13.1 % (19-41); Mean Corpuscular Hgb 32.1 pg (27.0-32.0); Mean Corpuscular Volume 103.4 fL (80-94); Mean Platelet Vol. 11.6 fl (6.2-12.0); Monocyte# 0.42 X10^3/uL; Monocyte% 6.1 % (0-10); NRBC Flagged by Analyzer 0 % (0-5); Neutrophil % 71.6 % (47-70); Platelet Count 187 K/mm3 (150-450); RBC Distribution Width CV 15.6 % (11.6-14.6); RBC Distribution Width SD 58.2 fl (35.1-43.9); Red Blood Count 2.37 M/mm3 (4.6-6.2); White Blood Count 6.9 K/mm3 (4.4-11.0)
[2019-12-18 07:13] LABS: Anion Gap 6 (5-15); BUN 55 mg/dL (7-18); BUN/Creat Ratio 19.1 RATIO (10-20); Calcium,Total 8.3 mg/dL (8.5-10.1); Chloride 110 mmol/L (98-107); Creatinine, Serum 2.88 mg/dL (0.70-1.30); EST Glomerular Filtration Rate 23 mL/min (>60); Est Glom Filt Rate - Afr Amer 28 mL/min (>60); Estimated Creatinine Clearance 24.64 ml/min; Glucose 122 mg/dL (74-106); Potassium 4.1 mmol/L (3.5-5.1); Sodium Level 139 mmol/L (136-145)
[2019-12-18 09:40] VITALS: BP 114/55; PULSE 91; RESP 20; TEMP 36.6; O2SAT 100
[2019-12-18] MEDS: Furosemide 40 MG Tablet PO ×2 (09:44→16:22)
[2019-12-18] MEDS: Cyanocobalamin 500 MCG Tablet 1000 MCG PO (09:44)
[2019-12-18] MEDS: Carvedilol 6.25 MG Tablet PO ×2 (09:44→22:31)
[2019-12-18] MEDS: Ascorbic Acid 500 MG Tablet PO (09:44)
[2019-12-18] MEDS: Ferrous Sulfate 325 MG Tablet PO ×2 (09:45→16:22)
[2019-12-18] MEDS: Allopurinol 100 MG Tablet PO (09:45)
[2019-12-18] MEDS: Heparin Injection (Vial) 5,000 UNIT/ML VIAL 5000 UNIT SC ×2 (09:45→22:31)
[2019-12-18 12:01] LABS: Bedside Glucose 144 mg/dL (70-110)
--- NOTE | 2019-12-18 12:25 | PCM.PN.HOSP ---
<Bob Lugo - Last Filed: 12/18/19 12:25> Patient Problems: Active and Suspected Problems (Last Reviewed 10/22/19 @ 14:54 by LUCIANO De La Torre) Cellulitis (Acute) Diastolic CHF (Acute) Ulcer of right lower extremity with fat layer exposed (Acute) Reason for Visit: Worsening lymphedema Subjective: No fever/chills. Ongoing seepage from legs L>R. Pt complained of difficulty voiding this AM however post void bladder scan was minimal. No SOB. No LH/Dizziness. Hx iron def anemia, recently decreased from TID to BID iron. No tejal bleeding. Vitals/I&O's: Vital Signs Temp Pulse Resp BP Pulse Ox 97.8 F 91 20 H 114/55 L 100 12/18/19 09:40 12/18/19 09:40 12/18/19 09:40 12/18/19 09:40 12/18/19 09:40 Oxygen Delivery Method Room Air Weight: 289 lb 7.471 oz Body Mass Index (BMI) 40.8 Intake and Output for Last 24 Hours 12/16/19 12/17/19 12/18/19 23:59 23:59 23:59 Intake Total 50 / 450 2305 / 2305 Output Total 1200 / 1200 300 / 300 Balance 50 / 200 1105 / 1105 -300 / -300 General: Alert, Oriented x3, Cooperative HEENT: Atraumatic, PERRLA, EOMI, Normocephalic Neck: Supple, No JVD, Negative Carotid Bruits Lungs: Clear to auscultation, Normal air movement Cardiovascular: Regular rate, No murmurs Abdomen: Bowel Sounds Present, Soft, Non Tender Extremities: Capillary Refill Less than 3 Seconds, Edema - marked lymphedema BLE L>R Skin: No rashes, No breakdown Musculoskeletal: No Tenderness to Palpation of Joints or Extremities Neurological: Cranial nerves II-XII grossly intact Psych/Mental Status: Normal Affect, Appropriate, Alert and oriented to time, place, person, mood and affect Laboratory Results 12/17/19 11:05: COVID-19 ([facility]) Negative 12/17/19 16:07: POC Glucose 123 H 12/17/19 21:37: POC Glucose 148 H 12/18/19 06:25: WBC 6.9, RBC 2.37 L, Hgb 7.6 L, Hct 24.5 L, MCV 103.4 H, MCH 32.1 H, MCHC 31.0 L, RDW Std Deviation 58.2 H, RDW Coeff of Inocencio 15.6 H, Plt Count 187, MPV 11.6, Immature Gran % (Auto) 0.400, Neut % (Auto) 71.6 H, Lymph % (Auto) 13.1 L, [place] % (Auto) 6.1, Eos % (Auto) 8.7 H, Baso % (Auto) 0.1, Absolute Neuts (auto) 4.9, Absolute Lymphs (auto) 0.90, Nucleated RBC % 0 12/18/19 06:25: Sodium 139, Potassium 4.1, Chloride 110 H, Carbon Dioxide 23.0, Anion Gap 6, BUN 55 H, Creatinine 2.88 H, Estim Creat Clear Calc 24.64, Est GFR (MDRD) Af Amer 28 L, Est GFR (MDRD) Non-Af 23 L, BUN/Creatinine Ratio 19.1, Glucose 122 H, Calcium 8.3 L 12/18/19 06:33: POC Glucose 120 H 12/18/19 11:22: POC Glucose 144 H Current Medications Acetaminophen (Tylenol) 650 mg PO Q6H PRN PRN PRN Reason: Pain Score 1-10/Temp > 100.7 F [facility] Last Admin: 12/18/19 09:45 Dose: 100 mg Documented by: Ascorbic Acid (Vitamin C) 500 mg PO DAILY [facility] Last Admin: 12/18/19 09:44 Dose: 500 mg Documented by: Atorvastatin Calcium (Lipitor) 20 mg PO QHS [facility] Last Admin: 12/17/19 21:39 Dose: 20 mg Documented by: Carvedilol (Coreg) 6.25 mg PO BID [facility] Last Admin: 12/18/19 09:44 Dose: 6.25 mg Documented by: Cyanocobalamin (Vitamin B12) 1,000 mcg PO DAILY [facility] Last Admin: 12/18/19 09:44 Dose: 1,000 mcg Documented by: Dextrose (D50w Syringe) 0 gm IV X1 PRN; Protocol PRN Reason: Hypoglycemia Ferrous Sulfate ([facility] S[facility]ate) [facility] Last Admin: 12/18/19 09:45 Dose: 325 mg Documented by: Furosemide (Lasix) 40 mg PO BID@1000,1800 [facility] Last Admin: 12/18/19 09:44 Dose: 40 mg Documented by: Glucagon () 1 mg IM .X1 PRN PRN Reason: Hypoglycemia Heparin Sodium (Porcine) (Heparin Na) 5,000 unit SC Q12 [facility] Last Admin: 12/18/19 09:45 Dose: 5,000 unit Documented by: Insulin Human Lispro (Humalog Kwikpen (Bkc)) 0 unit SC ACHS [facility]; Protocol Last Admin: 12/18/19 11:43 Dose: Not Given Documented by: Ondansetron HCl (Zofran) 4 mg IV Q8H PRN PRN PRN Reason: NAUSEA/VOMITING Sodium Chloride () 10 - 40 ml IV UD PRN PRN Reason: SALINE FLUSH Last Admin: 12/17/19 16:57 Dose: 10 ml Documented by: STROKE Vital Signs/Narrative: Vital Signs Temp Pulse Resp BP Pulse Ox 12/18/19 09:40 97.8 F 91 20 H 114/55 L 100 Medical Necessity - Tobacco Use Smoking Status: Never smoker Tobacco Use: Cigars Assessment/Plan All Active Problems (Last Reviewed 10/22/19 @ 14:54 by Shirley Hill, JAVA [employer]EE TECHNICAL LEAD-C) Hospital-acquired pneumonia (Acute) Acute respiratory failure (Acute) Sepsis (Acute) Pulmonary vascular congestion (Acute) Cellulitis (Acute) Diastolic CHF (Acute) Bacteremia (Acute) Ulcer of right lower extremity with fat layer exposed (Acute) Cellulitis of left lower extremity (Acute) Septic shock (Acute) Septic shock (Acute) DEEPTI (acute kidney injury) (Acute) 1. LLE cellulitis ruled out. worsening of lymphedema. wound care consulted. pt needs multiple dressing changes per day with the excessive seepage he has soaking the gauze. Apply lymphedema pumps. -LE duplex neg for DVT 2. DEEPTI on CKDIII - increased Creatinine overnight. will monitor I/O and keep overnight, recheck in AM. Lasix to PO. BNP 3. Macrocytic anemia, hx iron deficiency. Hgb now 7.6. continue iron/b12. No tejal bleeding. Recheck in AM. 4. DMt2 with morbid obesity - not on medications. diet controlled. 5. Lymphedema - continue daily lymphedema pumps, f/u with wound care center. 6. Hx Gout - allopurinol. symptoms not c/w gout flare. 7. HLD - statin 8. HERNÁN - bipap qhs 9. HTN - mildly elevated. trend. 10. Hx diastolic CHF - no acute exacerbation at this time. PO lasix. BNP markedly improved from BNP when he was admitted here with CHF in september. DVT ppx: heparin DC planning: SNF when stable, possibly tomorrow. This patient was seen by Bob Lugo PA-C under the supervision of Doctor Jef <Guillermo Fuchs - Last Filed: 12/18/19 13:56> Vitals/I&O's: Vital Signs Temp Pulse Resp BP Pulse Ox 36.6 C 91 20 H 114/55 L 100 12/18/19 09:40 12/18/19 09:40 12/18/19 09:40 12/18/19 09:40 12/18/19 09:40 Oxygen Delivery Method Room Air Weight: 131.3 kg Body Mass Index (BMI) 40.8 Intake and Output for Last 24 Hours 12/16/19 12/17/19 12/18/19 23:59 23:59 23:59 Intake Total 50 / 450 2305 / 2305 Output Total 1200 / 1200 300 / 300 Balance 50 / 200 1105 / 1105 -300 / -300 General: Alert, Cooperative Extremities: Edema Psych/Mental Status: Normal Affect, Appropriate Laboratory Results 12/17/19 16:07: POC Glucose 123 H 12/17/19 21:37: POC Glucose 148 H 12/18/19 06:25: WBC 6.9, RBC 2.37 L, Hgb 7.6 L, Hct 24.5 L, MCV 103.4 H, MCH 32.1 H, MCHC 31.0 L, RDW Std Deviation 58.2 H, RDW Coeff of Inocencio 15.6 H, Plt Count 187, MPV 11.6, Immature Gran % (Auto) 0.400, Neut % (Auto) 71.6 H, Lymph % (Auto) 13.1 L, [place] % (Auto) 6.1, Eos % (Auto) 8.7 H, Baso % (Auto) 0.1, Absolute Neuts (auto) 4.9, Absolute Lymphs (auto) 0.90, Nucleated RBC % 0 12/18/19 06:25: Sodium 139, Potassium 4.1, Chloride 110 H, Carbon Dioxide 23.0, Anion Gap 6, BUN 55 H, Creatinine 2.88 H, Estim Creat Clear Calc 24.64, Est GFR (MDRD) Af Amer 28 L, Est GFR (MDRD) Non-Af 23 L, BUN/Creatinine Ratio 19.1, Glucose 122 H, Calcium 8.3 L 12/18/19 06:33: POC Glucose 120 H 12/18/19 11:22: POC Glucose 144 H Current Medications Acetaminophen (Tylenol) 650 mg PO Q6H PRN PRN PRN Reason: Pain Score 1-10/Temp > 100.7 F [facility] Last Admin: 12/18/19 09:45 Dose: 100 mg Documented by: Ascorbic Acid (Vitamin C) 500 mg PO DAILY [facility] Last Admin: 12/18/19 09:44 Dose: 500 mg Documented by: Atorvastatin Calcium (Lipitor) 20 mg PO QHS [facility] Last Admin: 12/17/19 21:39 Dose: 20 mg Documented by: Carvedilol (Coreg) 6.25 mg PO BID [facility] Last Admin: 12/18/19 09:44 Dose: 6.25 mg Documented by: Cyanocobalamin (Vitamin B12) 1,000 mcg PO DAILY [facility] Last Admin: 12/18/19 09:44 Dose: 1,000 mcg Documented by: Dextrose (D50w Syringe) 0 gm IV X1 PRN; Protocol PRN Reason: Hypoglycemia Ferrous Sulfate ([facility]ous Sulfate) [facility] Last Admin: 12/18/19 09:45 Dose: 325 mg Documented by: Furosemide (Lasix) 40 mg PO BID@1000,1800 [facility] Last Admin: 12/18/19 09:44 Dose: 40 mg Documented by: Glucagon () 1 mg IM .X1 PRN PRN Reason: Hypoglycemia Heparin Sodium (Porcine) (Heparin Na) 5,000 unit SC Q12 [facility] Last Admin: 12/18/19 09:45 Dose: 5,000 unit Documented by: Insulin Human Lispro (Humalog Kwikpen (Bkc)) 0 unit SC ACHS [facility]; Protocol Last Admin: 12/18/19 11:43 Dose: Not Given Documented by: Ondansetron HCl (Zofran) 4 mg IV Q8H PRN PRN PRN Reason: NAUSEA/VOMITING Sodium Chloride () 10 - 40 ml IV UD PRN PRN Reason: SALINE FLUSH Last Admin: 12/17/19 16:57 Dose: 10 ml Documented by: Assessment/Plan Patient seen and examined independently. Data reviewed. I agree with the above note by the physician respiratory therapy assistant. 1. Lymphedema: This is a more of a chronic process but patient still does have extensive swelling in his lower extremities. Patient has echocardiogram previously that was not able to record his right heart pressures but I suspect patient has some element of pulmonary hypertension which is contributing to this. Is currently on room air so is not having a respiratory distress from this. Try to continue diuresis but will need to exercise caution with his kidney function being elevated at this time. 2. Chronic kidney disease stage III: Creatinine is elevated but seems like this is where he lives its been variable ranging from 1.6-3.04 dating back to April of last year. Just caution in regards to diuresis so as not to overdiuresis. Worse today. Change furosemide over to 40 mg p.o. twice daily. Continue to monitor. 3. Debility. Plan is to discharge to group home facility 12/18 if creatinine is improved or stable. Inpatient E&M: 69814 Subs Hosp L2
[2019-12-18 15:10] VITALS: BP 101/49; PULSE 91; RESP 18; TEMP 36.9; O2SAT 100
[2019-12-18] MEDS: 0.9% Saline Lock 10 ML Syringe IV (16:22)
[2019-12-18 16:30] LABS: Bedside Glucose 148 mg/dL (70-110)
[2019-12-18 22:30] VITALS: BP 105/56; PULSE 81; RESP 18; TEMP 36.6; O2SAT 96
[2019-12-18] MEDS: Atorvastatin Calcium 20 MG Tablet PO (22:31)
[2019-12-18 23:20] LABS: Bedside Glucose 176 mg/dL (70-110)
[2019-12-19 03:28] VITALS: BP 108/69; PULSE 89; RESP 16; TEMP 36.5; O2SAT 96
[2019-12-19 06:29] LABS: Absolute Lymphocyte Count 1.03 X10^3/uL (0.83-4.51); Absolute Neutrophil Count 4.7 X10^3/uL (2.0-7.7); Basophil# 0.02 X10^3/uL; Basophil% 0.3 % (0-1); Eosinophil# 0.69 X10^3/uL; Eosinophils% 9.9 % (0-5); Hematocrit 26.3 % (40-54); Lymphocyte # 1.03 X10^3/ul (4.0); Lymphocyte % 14.8 % (19-41); Mean Corp Hgb Conc 30.4 g/dL (32-36); Mean Corpuscular Hgb 31.9 pg (27.0-32.0); Mean Corpuscular Volume 104.8 fL (80-94); Mean Platelet Vol. 11.8 fl (6.2-12.0); Monocyte# 0.45 X10^3/uL; Monocyte% 6.5 % (0-10); NRBC Flagged by Analyzer 0 % (0-5); Neutrophil % 67.8 % (47-70); Platelet Count 179 K/mm3 (150-450); RBC Distribution Width CV 15.6 % (11.6-14.6); RBC Distribution Width SD 59.6 fl (35.1-43.9); Red Blood Count 2.51 M/mm3 (4.6-6.2); White Blood Count 6.9 K/mm3 (4.4-11.0)
[2019-12-19] MEDS: Nystatin Powder 15gm Bottle 1 APPLIC TOPICAL (06:30)
[2019-12-19 06:36] LABS: Bedside Glucose 134 mg/dL (70-110)
[2019-12-19 06:47] LABS: Anion Gap 6 (5-15); BUN 55 mg/dL (7-18); BUN/Creat Ratio 19.2 RATIO (10-20); Calcium,Total 8.5 mg/dL (8.5-10.1); Chloride 111 mmol/L (98-107); Creatinine, Serum 2.86 mg/dL (0.70-1.30); EST Glomerular Filtration Rate 23 mL/min (>60); Est Glom Filt Rate - Afr Amer 28 mL/min (>60); Estimated Creatinine Clearance 24.82 ml/min; Glucose 138 mg/dL (74-106); Potassium 4.2 mmol/L (3.5-5.1); Sodium Level 141 mmol/L (136-145)
[2019-12-19 09:19] VITALS: BP 115/45; PULSE 87; RESP 16; TEMP 36.6; O2SAT 98
[2019-12-19] MEDS: Heparin Injection (Vial) 5,000 UNIT/ML VIAL 5000 UNIT SC (09:58)
[2019-12-19] MEDS: Furosemide 40 MG Tablet PO (10:05)
[2019-12-19] MEDS: Ferrous Sulfate 325 MG Tablet PO (10:05)
[2019-12-19] MEDS: Carvedilol 6.25 MG Tablet PO (10:05)
[2019-12-19] MEDS: Allopurinol 100 MG Tablet PO (10:05)
[2019-12-19] MEDS: Cyanocobalamin 500 MCG Tablet 1000 MCG PO (10:06)
[2019-12-19] MEDS: Ascorbic Acid 500 MG Tablet PO (10:06)
--- NOTE | 2019-12-19 10:50 | PCM.EXTCARCO ---
- Diet 12/17/19 13:23 Diet: Cardiac: Calorie-Controlled Food consistency:: Regular Liquid Consistency:: Regular/Thin Dietary Modifications:: Fluid Restricted Diet Is pt able to select menu?: No Diet Comments: 1500 cc FR/day How many daily calories?: 2200 calorie - Routine Orders/Code Status Suppository Type: Dulcolax 10mg Suppository Frequency: Daily PRN Routine Lab Work: CBC - 3 days, BMP - 3 days Code Status: Full Code - Wound(s) BILAT LE Wound Type: CELLULITIS left lateral lower leg Wound Type: denuded skin Dressing Change: Melgisorb right anterolateral lower leg Wound Type: open area with stasis dermatitis Dressing Change: Melgisorb - Therapies Physical Therapy: Eval and Treat Occupational Therapy: Eval and Treat - Problem/Diagnosis (1) Cellulitis Status: Ruled-out Current Visit: Yes (2) DEEPTI (acute kidney injury) Status: Acute Current Visit: No (3) Diastolic CHF Status: Chronic Current Visit: Yes (4) CKD (chronic kidney disease), stage III Status: Chronic Current Visit: No (5) Morbid obesity Status: Chronic Current Visit: No (6) Chronic acquired lymphedema Status: Chronic Current Visit: No (7) Obesity Status: Chronic Current Visit: No (8) HERNÁN (obstructive sleep apnea) Status: Chronic Current Visit: No (9) Stage 2 chronic kidney disease Status: Chronic Current Visit: No (10) Essential hypertension Status: Chronic Current Visit: No (11) Gout Status: Chronic Current Visit: No (12) Type 2 diabetes mellitus Status: Chronic Current Visit: No (13) Iron deficiency anemia Status: Chronic Current Visit: No (14) Hyperlipidemia Status: Chronic Current Visit: No - Allergies/Procedures Done in Hospital Allergies/Adverse Reactions: Allergies No Known Allergies Allergy (Verified 12/16/19 12:46) Procedures: None - Type of Care/Length of Stay Estimated LOS: Convalescent Care Less Than 30 days Type of Care Needed: Skilled Rehab Potential: Fair Prognosis: Fair - Additional Orders/Day of Discharge Additional Orders: Patient needs daily wound dressing changes and additional dressing changes as needed throughout the day depending on how much drainage he has. He should not be left with soaked gauze for extended periods. He will also need to continue to have his lymphedema pumps on each day for a period as previously prescribed by his wound care specialists. Day of Discharge: 12/19/19 - Dietary and Speech Recommendations Dietitian Recommendations/Changes: Change to 2200 calorie controlled diet. Continue cardiac diet with fluid restriction as ordered. - Follow Up Care Primary Care Physician: Han Adrian MD [Primary Care Provider] - Please follow up with your Primary Care Physician in: 2 weeks Please Follow Up With: Ynes Mcleod DO When: 2 weeks Please Follow Up With: Wound care center When: 1-2 weeks
--- NOTE | 2019-12-19 10:53 | DS.PCM_ITS ---
<Bob Lugo - Last Filed: 12/19/19 10:53> Discharge Date and Diagnosis Date of Admission: 12/16/19 Date of Discharge: 12/19/19 - Primary Discharge Diagnosis Acute Problems: Worsening of lymphedema Cellulitis ruled out DEEPTI Chronic diastolic CHF Worsening of chronic iron deficiency anemia - Secondary Discharge Diagnosis Chronic Problems: Chronic Problems (Last Reviewed 10/22/19 @ 14:54 by Shirley Hill NP-[place]) CKD (chronic kidney disease), stage III (Chronic) Morbid obesity (Chronic) Chronic acquired lymphedema (Chronic) Diastolic CHF (Chronic) Obesity (Chronic) HERNÁN (obstructive sleep apnea) (Chronic) Ulcer of left lower extremity with fat layer exposed (Chronic) Lymphedema of both lower extremities (Chronic) Ulcer of left foot (Chronic) Cardiac murmur (Chronic) Stage 2 chronic kidney disease (Chronic) Essential hypertension (Chronic) Anemia (Chronic) Gout (Chronic) Type 2 diabetes mellitus (Chronic) Iron deficiency anemia (Chronic) Hyperlipidemia (Chronic) Hospital Course and Treatment Imaging Results: RAD/Chest 1 View (Portable) IMPRESSION: Improving aeration of the lungs. Mild hazy density remains in the bilateral lung bases. Venous Doppler LEs Interpretation Summary No evidence for acute deep venous thrombosis bilateral lower extremities with patent and compressible bilateral great saphenous veins. Limitation noted of inability to visualize bilateral peroneal veins. This exam was deemed to be technically difficult Consultations 12/16/19 19:21 Consult: Onc/Wound/cutting machine fixer Routine Comment: 12/16/19 19:55 Consult: Onc/Wound/cutting machine fixer Routine Comment: maceration left and right tibial area w/ 4+ edema Reason for Consult:: has been at wound center for months-sent here 12/15 Operations: None Procedures: None Summary of Care Provided: Hospital Course: The patient is a 69 year old M with pmhx as above notably lymphedema, diastolic CHF, CKDIII, and chronic iron deficiency anemia, who presented to the ER with c/o worsening swelling and drainage from the left lower extremity. The patient had excessive drainage from his LLE that would soak his gauze dressings and sheets at home and he was not changing these daily. He did have worse swelling of the left leg vs the right and there initially was concern there may be a cellulitis. He had sloughing of the moist skin particularly over the left dorsolateral aspect the left foot. He was started on Vanco/zosyn for possible cellulitis. He had no fever or leukocytosis. He was admitted to the med surg floor. Wound care nursing was consulted. The lymphedema was cleaned and dressed aggressively to avoid prolonged wet exposure. The underlying tissue did not appear cellulitic and abx were discontinued. A venous US was performed and revealed no clots. This presentation appeared to be due to worsening of his chronic lymphedema. He was given a short course of IV lasix, however his renal function worsened so this was transitioned quickly back to PO. He did have worsening of his chronic anemia. No changes were made and no transfusion were necessary, and his blood counts stabilized on their own. He was not properly caring for his lymphedema at home and will require additional SNF care in order to ensure proper healing of his legs and for ongoing physical therapy. He was discharged to SNF in stable condition. He will need follow up with his front desk representative in 2 weeks, his PCP in 2 weeks, and should see the wound care center in 1-2 weeks. This patient was seen by Bob Lugo PA-C under the supervision of Dr. Fuchs [] - Physical Exam Vitals/I&O's: Vital Signs Temp Pulse Resp BP Pulse Ox 97.8 F 87 16 115/45 L 98 12/19/19 09:19 12/19/19 09:19 12/19/19 09:19 12/19/19 09:19 12/19/19 09:19 Oxygen Delivery Method Room Air Weight: 293 lb Body Mass Index (BMI) 40.8 Intake and Output for Last 24 Hours 12/17/19 12/18/19 12/19/19 23:59 23:59 23:59 Intake Total 2305 / 2305 1370 / 1370 100 / 100 Output Total 1200 / 1200 850 / 850 300 / 300 Balance 1105 / 1105 520 / 520 -200 / -200 General: Alert, Oriented x3, Cooperative HEENT: Atraumatic, PERRLA, EOMI, Normocephalic Neck: Supple, No JVD, Negative Carotid Bruits Lungs: Clear to auscultation, Normal air movement Cardiovascular: Regular rate, No murmurs Abdomen: Bowel Sounds Present, Soft, Non Tender, Obese Extremities: Capillary Refill Less than 3 Seconds, Edema - BL lymphedema Skin: No rashes, No breakdown Musculoskeletal: No Tenderness to Palpation of Joints or Extremities Neurological: Cranial nerves II-XII grossly intact Psych/Mental Status: Normal Affect, Appropriate, Alert and oriented to time, place, person, mood and affect Microbiology Past 72 Hours 12/16/19 17:35 Blood Culture (Wb) - Venous Blood Culture - Preliminary No growth in 48 hours. 12/16/19 15:35 Blood Culture (Wb) - Anticubital Left Blood Culture - Preli minary No growth in 48 hours. Laboratory Results 12/18/19 11:22: POC Glucose 144 H 12/18/19 16:19: POC Glucose 148 H 12/18/19 22:43: POC Glucose 176 H 12/19/19 06:02: WBC 6.9, RBC 2.51 L, Hgb 8.0 L, Hct 26.3 L, MCV 104.8 H, MCH 31.9, MCHC 30.4 L, RDW Std Deviation 59.6 H, RDW Coeff of Inocencio 15.6 H, Plt Count 179, MPV 11.8, Immature Gran % (Auto) 0.700, Neut % (Auto) 67.8, Lymph % (Auto) 14.8 L, [place] % (Auto) 6.5, Eos % (Auto) 9.9 H, Baso % (Auto) 0.3, Absolute Neuts (auto) 4.7, Absolute Lymphs (auto) 1.03, Nucleated RBC % 0 12/19/19 06:02: Sodium 141, Potassium 4.2, Chloride 111 H, Carbon Dioxide 24.0, Anion Gap 6, BUN 55 H, Creatinine 2.86 H, Estim Creat Clear Calc 24.82, Est GFR (MDRD) Af Amer 28 L, Est GFR (MDRD) Non-Af 23 L, BUN/Creatinine Ratio 19.2, Glucose 138 H, Calcium 8.5 12/19/19 06:29: POC Glucose 134 H Current Medications Acetaminophen (Tylenol) 650 mg PO Q6H PRN PRN PRN Reason: Pain Score 1-10/Temp > 100.7 F [facility] Admin: 12/19/19 10:05 Dose: 100 mg Documented by: Ascorbic Acid (Vitamin C) 500 mg PO DAILY [facility] Last Admin: 12/19/19 10:06 Dose: 500 mg Documented by: Atorvastatin Calcium (Lipitor) 20 mg PO QHS [facility] Last Admin: 12/18/19 22:31 Dose: 20 mg Documented by: Carvedilol (Coreg) 6.25 mg PO BID [facility] Last Admin: 12/19/19 10:05 Dose: 6.25 mg Documented by: Cyanocobalamin (Vitamin B12) 1,000 mcg PO DAILY [facility] Last Admin: 12/19/19 10:06 Dose: 1,000 mcg Documented by: Dextrose (D50w Syringe) 0 gm IV X1 PRN; Protocol PRN Reason: Hypoglycemia Ferrous Sulfate (Ferrous Sulfate) 325 mg PO BIDCM [facility] Last Admin: 12/19/19 10:05 Dose: 325 mg Documented by: Furosemide (Lasix) 40 mg PO BID@1000,1800 [facility] Last Admin: 12/19/19 10:05 Dose: 40 mg Documented by: Glucagon () 1 mg IM .X1 PRN PRN Reason: Hypoglycemia Heparin Sodium (Porcine) (Heparin Na) 5,000 unit SC Q12 [facility] Last Admin: 12/19/19 09:58 Dose: 5,000 unit Documented by: Insulin Human Lispro (Humalog Kwikpen (Bkc)) 0 unit SC ACHS [facility]; Protocol Last Admin: 12/19/19 06:31 Dose: Not Given Documented by: Nystatin (Mycostatin Powder) 1 applic TOPICAL TID [facility]; Protocol Last Admin: 12/19/19 06:30 Dose: 1 applicatio Documented by: Ondansetron HCl (Zofran) 4 mg IV Q8H PRN PRN PRN Reason: NAUSEA/VOMITING Sodium Chloride () 10 - 40 ml IV UD PRN PRN Reason: SALINE FLUSH Last Admin: 12/18/19 16:22 Dose: 10 ml Documented by: Discharge Diet: Low fat/ Low Cholesterol, 2000 Calorie Control Diet, 2000 mg Sodium Diet Discharge Activity: Return to Normal Activity Home Medications: Medications to take at Discharge Ascorbic Acid [Vitamin C] 500 mg PO DAILY 03/08/17 Magnesium 500 mg PO DAILY 03/08/17 allopurinol 300 mg tablet 300 mg PO DAILY 08/23/19 cholecalciferol (vitamin D3) 125 mcg (5,000 unit) capsule 125 mcg PO DAILY cyanocobalamin (vitamin B-12) 1,000 mcg capsule 1,000 mcg PO DAILY 08/24/19 omega-3 fatty acids 1,000 mg capsule 1,000 mg PO DAILY 08/24/19 Multivitamin with Minerals [Multiple Vitamin] 1 tab PO DAILY 10/06/19 Simvastatin 40 mg PO QHS 10/06/19 Carvedilol [Coreg (Beta [address])] 6.25 mg PO BID #0 11/27/19 Ferrous Sulfate 325 mg PO BID 12/16/19 Potassium Chloride [Klor-Con M10] 20 meq PO DAILY 12/16/19 Acetaminophen [Tylenol Tablet] 650 mg PO Q6H PRN PRN tab 12/19/19 Furosemide [Lasix] 40 mg PO BID@1000,1800 tab 12/19/19 Nystatin Powder [Mycostatin Powder] 1 applic TOPICAL TID bottle 12/19/19 Primary Care Physician: Han Adrian MD [Primary Care Provider] - Please follow up with your Primary Care Physician in: 2 weeks Please Follow Up With: Ynes Mcleod DO When: 2 weeks Please Follow Up With: Wound care center When: 1-2 weeks Medical Necessity - Tobacco Use Smoking Status: Never smoker Tobacco Use: Cigars Meaningful Use Info Meaningful Use Diagnoses (Choose all that apply): None applicable <Guillermo Fuchs - Last Filed: 12/19/19 11:39> Discharge Date and Diagnosis - Secondary Discharge Diagnosis Chronic Problems: Chronic Problems (Last Reviewed 10/22/19 @ 14:54 by Shirley Hill NP-C) CKD (chronic kidney disease), stage III (Chronic) Morbid obesity (Chronic) Chronic acquired lymphedema (Chronic) Diastolic CHF (Chronic) Obesity (Chronic) HERNÁN (obstructive sleep apnea) (Chronic) Ulcer of left lower extremity with fat layer exposed (Chronic) Lymphedema of both lower extremities (Chronic) Ulcer of left foot (Chronic) Cardiac murmur (Chronic) Stage 2 chronic kidney disease (Chronic) Essential hypertension (Chronic) Anemia (Chronic) Gout (Chronic) Type 2 diabetes mellitus (Chronic) Iron deficiency anemia (Chronic) Hyperlipidemia (Chronic) Hospital Course and Treatment Consultations 12/16/19 19:21 Consult: Onc/Wound/cutting machine fixer Routine Comment: 12/16/19 19:55 Consult: Onc/Wound/cutting machine fixer Routine Comment: maceration left and right tibial area w/ 4+ edema Reason for Consult:: has been at wound center for months-sent here 12/15 Operations: None Procedures: None Summary of Care Provided: Patient seen and examined independently. Data reviewed. I agree with the above note by the physician practice assistant. The patient is a 69 year old M presents with weeping and redness from his lower extremities. Initially felt to have cellulitis. Changes were more consistent with venous stasis changes and patient was initiated on IV furosemide. His creatinine did creep up to 2.88 that was transitioned over to p.o. 40 twice daily dosing. Creatinine today is stabilized at 2.86. Patient will be discharged to nursing home facility in stable condition. [] - Physical Exam Vitals/I&O's: Vital Signs Temp Pulse Resp BP Pulse Ox 36.6 C 87 16 115/45 L 98 12/19/19 09:19 12/19/19 09:19 12/19/19 09:19 12/19/19 09:19 12/19/19 09:19 Oxygen Delivery Method Room Air Weight: 132.903 kg Body Mass Index (BMI) 40.8 Intake and Output for Last 24 Hours 12/17/19 12/18/19 12/19/19 23:59 23:59 23:59 Intake Total 2305 / 2305 1370 / 1370 100 / 100 Output Total 1200 / 1200 850 / 850 300 / 300 Balance 1105 / 1105 520 / 520 -200 / -200 General: Alert, Cooperative HEENT: Atraumatic, Normocephalic Neck: No Nodes, Thyroid Normal Size and Texture Lungs: Clear to auscultation, Normal air movement, No rhonchi, No wheeze Cardiovascular: Regular rate, No murmurs Abdomen: Bowel Sounds Present, Soft, Non Tender, Obese Extremities: Edema Microbiology Past 72 Hours 12/16/19 17:35 Blood Culture (Wb) - Venous Blood Culture - Preliminary No growth in 48 hours. 12/16/19 15:35 Blood Culture (Wb) - Anticubital Left Blood Culture - Preliminary No growth in 48 hours. Laboratory Results 12/18/19 11:22: POC Glucose 144 H 12/18/19 16:19: POC Glucose 148 H 12/18/19 22:43: POC Glucose 176 H 12/19/19 06:02: WBC 6.9, RBC 2.51 L, Hgb 8.0 L, Hct 26.3 L, MCV 104.8 H, MCH 31.9, MCHC 30.4 L, RDW Std Deviation 59.6 H, RDW Coeff of Inocencio 15.6 H, Plt Count 179, MPV 11.8, Immature Gran % (Auto) 0.700, Neut % (Auto) 67.8, Lymph % (Auto) 14.8 L, [place] % (Auto) 6.5, Eos % (Auto) 9.9 H, Baso % (Auto) 0.3, Absolute Neuts (auto) 4.7, Absolute Lymphs (auto) 1.03, Nucleated RBC % 0 12/19/19 06:02: Sodium 141, Potassium 4.2, Chloride 111 H, Carbon Dioxide 24.0, Anion Gap 6, BUN 55 H, Creatinine 2.86 H, Estim Creat Clear Calc 24.82, Est GFR (MDRD) Af Amer 28 L, Est GFR (MDRD) Non-Af 23 L, BUN/Creatinine Ratio 19.2, Glucose 138 H, Calcium 8.5 12/19/19 06:29: POC Glucose 134 H Current Medications Acetaminophen (Tylenol) 650 mg PO Q6H PRN PRN PRN Reason: Pain Score 1-10/Temp > 100.7 F [facility]) [facility] Admin: 12/19/19 10:05 Dose: 100 mg Documented by: Ascorbic Acid (Vitamin C) 500 mg PO DAILY [facility] Last Admin: 12/19/19 10:06 Dose: 500 mg Documented by: Atorvastatin Calcium (Lipitor) 20 mg PO QHS [facility] Last Admin: 12/18/19 22:31 Dose: 20 mg Documented by: Carvedilol (Coreg) 6.25 mg PO BID [facility] Last Admin: 12/19/19 10:05 Dose: 6.25 mg Documented by: Cyanocobalamin (Vitamin B12) 1,000 mcg PO DAILY [facility] Last Admin: 12/19/19 10:06 Dose: 1,000 mcg Documented by: Dextrose (D50w Syringe) 0 gm IV X1 PRN; Protocol PRN Reason: Hypoglycemia Ferrous Sulfate ([facility]ous Sulfate) [facility] Last Admin: 12/19/19 10:05 Dose: 325 mg Documented by: Furosemide (Lasix) 40 mg PO BID@1000,1800 [facility] Last Admin: 12/19/19 10:05 Dose: 40 mg Documented by: Glucagon () 1 mg IM .X1 PRN PRN Reason: Hypoglycemia Heparin Sodium (Porcine) (Heparin Na) 5,000 unit SC Q12 [facility] Last Admin: 12/19/19 09:58 Dose: 5,000 unit Documented by: Insulin Human Lispro (Humalog Kwikpen (Bkc)) 0 unit SC ACHS [facility]; Protocol Last Admin: 12/19/19 11:31 Dose: 1 u Documented by: Nystatin (Mycostatin Powder) 1 applic TOPICAL TID [facility]; Protocol Last Admin: 12/19/19 06:30 Dose: 1 applicatio Documented by: Ondansetron HCl (Zofran) 4 mg IV Q8H PRN PRN PRN Reason: NAUSEA/VOMITING Sodium Chloride () 10 - 40 ml IV UD PRN PRN Reason: SALINE FLUSH Last Admin: 12/18/19 16:22 Dose: 10 ml Documented by: Discharge Diet: Low fat/ Low Cholesterol, 2000 Calorie Control Diet, 2000 mg Sodium Diet Discharge Activity: Return to Normal Activity [facility]position[facility] Minutes spent on discharge:: 35 Patient Condition:: Fair Medical Necessity - Tobacco Use Smoking Status: Never smoker Tobacco Use: Cigars Meaningful Use Info - CHF PHUC/ARB ordered at discharge?: No Reason PHUC/ARB not ordered?: Worsening renal dysfunctn Documented LVEF (%): 60 Inpatient E&M: [id number] Disch Hosp
[2019-12-19] MEDS: Insulin Lispro 100 UNIT/ML INSULN.PEN SC (11:31)
[2019-12-19 11:41] LABS: Bedside Glucose 168 mg/dL (70-110)
[2019-12-19 13:54] VITALS: BP 105/57; PULSE 78; RESP 16; TEMP 36.6; O2SAT 99
== END 2019-12-19 15:40 | disposition skilled nursing facility (03) | DRG 607 ==
LOC: ED 13:37 → MS3 17:06
PROVIDERS: Admitting Provider Internal Medicine; Emergency Provider Emergency Medicine; PCP Family Medicine
DX: I89.0 Lymphedema, not elsewhere classified (principal); I13.0 Hypertensive heart and chronic kidney disease with heart failure and stage 1 through stage 4 chronic kidney disease, or unspecified chronic kidney disease; I50.32 Chronic diastolic (congestive) heart failure; N17.9 Acute kidney failure, unspecified; Z68.41 Body mass index [BMI] 40.0-44.9, adult; L97.822 Non-pressure chronic ulcer of other part of left lower leg with fat layer exposed; L97.812 Non-pressure chronic ulcer of other part of right lower leg with fat layer exposed; E11.622 Type 2 diabetes mellitus with other skin ulcer; E11.621 Type 2 diabetes mellitus with foot ulcer; L97.529 Non-pressure chronic ulcer of other part of left foot with unspecified severity; E11.22 Type 2 diabetes mellitus with diabetic chronic kidney disease; N18.3 Chronic kidney disease, stage 3 (moderate); D50.9 Iron deficiency anemia, unspecified; E66.01 Morbid (severe) obesity due to excess calories; G47.33 Obstructive sleep apnea (adult) (pediatric); M1A.9XX0 Chronic gout, unspecified, without tophus (tophi); E78.5 Hyperlipidemia, unspecified; I87.8 Other specified disorders of veins; E11.42 Type 2 diabetes mellitus with diabetic polyneuropathy; R53.81 Other malaise; R01.1 Cardiac murmur, unspecified; R06.02 Shortness of breath; F17.290 Nicotine dependence, other tobacco product, uncomplicated; Z79.899 Other long term (current) drug therapy
CPT/HCPCS: 36415; 71045; 80048; 80053; 82962; 83605; 83880; 85025; 85610; 87040; 87635; 93005; 93970; 94799; 97110; 97116; 97162; 97166; 97530; 97802; 99213; 99251; 99285; J7040; J7050; A4216; G0463; J1940; U0003

== ENCOUNTER 2019-12-19 15:50 | Inpatient (IN) | payer MEDICARE, OTHER, SELFPAY ==
[2019-12-16 18:39] VITALS: BMI 40.8
[2019-12-19 16:03] VITALS: BMI 41.5
[2019-12-19 16:44] VITALS: BP 116/59; PULSE 88; RESP 20; TEMP 36.3; O2SAT 97
[2019-12-19] MEDS: Furosemide 40 MG Tablet PO (18:12)
[2019-12-19] MEDS: Carvedilol 6.25 MG Tablet PO (18:12)
[2019-12-19] MEDS: Ferrous Sulfate 325 MG Tablet PO (18:12)
--- NOTE | 2019-12-19 18:27 | NURSING ---
this nurse was flushing pt iv and it was leaking. pulled iv out. reported to rn.
--- NOTE | 2019-12-19 20:08 | PCM.HP.STD ---
Problem List (1) Debility Status: Acute (2) Lymphedema Status: Chronic (3) Diabetes mellitus Status: Chronic (4) Hypomagnesemia Status: Chronic (5) Hypokalemia Status: Chronic (6) Chronic kidney disease Status: Chronic (7) Chronic diastolic (congestive) heart failure Status: Chronic (8) Venous stasis dermatitis Status: Acute (9) Hypertension Status: Chronic (10) Body mass index (BMI) 40.0-44.9, adult Status: Chronic (11) HERNÁN (obstructive sleep apnea) Status: Chronic (12) Cellulitis of left lower extremity Status: Acute (13) Gout Status: Chronic Qualifiers: (14) Iron deficiency anemia Status: Chronic Qualifiers: (15) Hyperlipidemia Status: Chronic Qualifiers: History of Present Illness Date of Admission: 12/19/19 Chief Complaint: Here for rehabilitation, strengthening, prior to discharge home alone. 12/16/2019 The patient is a 69 year old Male with below past medical history presented to [facility] Emergency Department with cellulitis. 12/16/2019 Chest X-ray showed bibasilar hazy density. Increasing left lower extremity redness, pain, chills, sweats. Recent hospitalization for congestive heart failure. Cellulitis of left lower extremity. Broad spectrum antibiotics given. 12/16/2019 Admit to Hospital. Wound cultures, MRSA, Blood cultures sent. Vancomycin/Cefazolin IV for cellulitis left lower extremity. 12/16/2019 Doppler ultrasound negative DVT bilateral lower extremities. 12/17/2019 Left lower extremity cellulitis ruled out. Multiple dressings and lymphedema pumps. Patient interested in intermediate facility. Gentle diuresis in light of chronic kidney disease. Worsening of chronic anemia, no transfusion necessary. 12/19/2019 Admit to TCU with debility, here for rehabilitation, strengthening, prior to discharge home alone. Past Medical History Past Medical History (Chronic Problems): Chronic Problems (Last Reviewed 10/22/19 @ 14:54 by LUCIANO De La Torre) CKD (chronic kidney disease), stage III (Chronic) Morbid obesity (Chronic) Chronic acquired lymphedema (Chronic) Diastolic CHF (Chronic) Lymphedema (Chronic) Diabetes mellitus (Chronic) Hypomagnesemia (Chronic) Hypokalemia (Chronic) Chronic kidney disease (Chronic) Chronic diastolic (congestive) heart failure (Chronic) Hypertension (Chronic) Body mass index (BMI) 40.0-44.9, adult (Chronic) Obesity (Chronic) HERNÁN (obstructive sleep apnea) (Chronic) Ulcer of left lower extremity with fat layer exposed (Chronic) Lymphedema of both lower extremities (Chronic) Ulcer of left foot (Chronic) Cardiac murmur (Chronic) Stage 2 chronic kidney disease (Chronic) Essential hypertension (Chronic) Anemia (Chronic) Gout (Chronic) Type 2 diabetes mellitus (Chronic) Iron deficiency anemia (Chronic) Hyperlipidemia (Chronic) Medical History: Medical History (Last Reviewed 10/22/19 @ 14:54 by Shirley Hill, CATALINA-C) Cardiac murmur (Chronic) R01.1 Stage 2 chronic kidney disease (Chronic) N18.2 Essential hypertension (Chronic) I10 Anemia (Chronic) D64.9 Gout (Chronic) M10.9 Type 2 diabetes mellitus (Chronic) E11.9 Iron deficiency anemia (Chronic) D50.9 Hyperlipidemia (Chronic) E78.5 DRUJ (distal radioulnar joint) arthrosis, 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 Diabetic neuropathy E11.40 Hyperuricemia E79.0 Chronic kidney disease (Inactive) N18.9 Hypertension (Inactive) I10 Allergies No Known Allergies Allergy (Verified 12/16/19 12:46) Home Medications: Ambulatory Orders Medication Instructions Recorded Ascorbic Acid [Vitamin C] 500 mg PO DAILY 03/08/17 Magnesium 500 mg PO DAILY 03/08/17 allopurinol 300 mg tablet 300 mg PO DAILY 08/23/19 cholecalciferol (vitamin D3) 125 125 mcg PO DAILY 08/23/19 mcg (5,000 unit) capsule cyanocobalamin (vitamin B-12) 1,000 mcg PO DAILY 08/24/19 1,000 mcg capsule omega-3 fatty acids 1,000 mg 1,000 mg PO DAILY 08/24/19 capsule Multivitamin with Minerals 1 tab PO DAILY 10/06/19 [Multiple Vitamin] Simvastatin 40 mg PO QHS 10/06/19 Carvedilol [Coreg (Beta [address])] 6.25 mg PO BID #0 11/27/19 Ferrous Sulfate 325 mg PO BID 12/16/19 Potassium Chloride [Klor-Con M10] 20 meq PO DAILY 12/16/19 Acetaminophen [Tylenol Tablet] 650 mg PO Q6H PRN PRN tab 12/19/19 Furosemide [Lasix] 40 mg PO BID@1000,1800 12/19/19 Nystatin Powder [Mycostatin Powder] 1 applic TOPICAL TID 12/19/19 Surgical History: Surgical History (Last Reviewed 10/22/19 @ 14:54 by Shirley Hill NP-Sydnee) S/P colonoscopy Z98.890 Status post tonsillectomy Z90.89 Surgical History: tonsillectomy Psychiatric History: No pertinent psych hx Lives: Alone Smoking Status: Light Smoker (<10/day) Tobacco Use: Cigarettes Alcohol: None Drugs: None - *Family History Maternal Family History: Family History (Last Reviewed 12/16/19 @ 16:44 by DEWEY Juan) Mother Cancer Father Hypertension History Items: Cancer - Mother with history of ovarian cancer. Paternal Family History: Family History (Last Reviewed 12/16/19 @ 16:44 by DEWEY Juan) Mother Cancer Father Hypertension History Items: Hypertension, - - Head trauma. Review of Systems Constitutional: Denies: Chills, Fever, Weight Change HEENT: Denies: Head Aches, Sinus Congestion, Sinus Drainage Cardiovascular: Denies: Chest Pain, Palpitations Respiratory: Denies: Cough, Shortness of breath at rest, Sputum production Gastrointestinal: Denies: Abdominal Pain, Nausea, Vomiting Genitourinary: Denies: Dysuria Musculoskeletal: Denies: Joint Pain, Joint Tenderness Skin: Denies: Rash, Wounds Neurological: Denies: Numbness, Tingling, Focal weakness Psychiatric: Denies: Anxiety, Depression, Homicidal Ideations, Suicidal Ideations Hematologic/ Lymphatic: Denies: Easy Bruising, Easy Bleeding VTE Information - Inpt Only VTE Present on Admission: No VTE Mechan Device Prophylaxis: Knee High MARIS Hose VTE Pharm Prophylaxis ordered?: No Reason prophylaxis not ordered:: Medical Contraindication Patient Problems: Active and Suspected Problems (Last Reviewed 10/22/19 @ 14:54 by Shirley Hill NP-C) Debility (Acute) Venous stasis dermatitis (Acute) - Physical Exam Vitals/I&O's: Vital Signs Temp Pulse Resp BP Pulse Ox 97.4 F L 88 20 H 116/59 L 97 12/19/19 16:44 12/19/19 16:44 12/19/19 16:44 12/19/19 16:44 12/19/19 16:44 Oxygen Delivery Method Room Air Weight: 131.5 kg Body Mass Index (BMI) 41.5 Intake and Output for Last 24 Hours 12/17/19 12/18/19 12/19/19 23:59 23:59 23:59 Intake Total 200 / 200 Balance 200 / 200 General: Alert, Oriented x3, Cooperative HEENT: Atraumatic, PERRLA, EOMI, Normocephalic Neck: Supple, No JVD, Negative Carotid Bruits Lungs: Clear to auscultation, Normal air movement Cardiovascular: Regular rate, No murmurs Abdomen: Bowel Sounds Present, Soft, Non Tender Extremities: Capillary Refill Less than 3 Seconds, Edema - 2+ pitting bilaterally., - - Bilateral lower extremity dressing, PHUC wraps. Skin: No rashes, No breakdown Musculoskeletal: No Tenderness to Palpation of Joints or Extremities Neurological: Cranial nerves II-XII grossly intact Psych/Mental Status: Normal Affect, Appropriate Laboratory Results 12/19/19 19:35: COVID-19 (ROMEO) Pending Current Medications Acetaminophen (Tylenol) 650 mg PO Q6H PRN PRN PRN Reason: Pain Score 1-10/Temp > 100.7 F Allopurinol (Zyloprim) 300 mg PO DAILY [facility] Ascorbic Acid (Vitamin C) 500 mg PO DAILY [facility] Atorvastatin Calcium (Lipitor) 20 mg PO QHS [facility] Bisacodyl (Dulcolax) 10 mg RECTAL DAILY PRN PRN Reason: Constipation Carvedilol (Coreg) 6.25 mg PO BID [facility] Last Admin: 12/19/19 18:12 Dose: 6.25 mg Documented by: Cholecalciferol (Vitamin D (25mcg)) 5,000 unit PO DAILY [facility] Cyanocobalamin (Vitamin B12) 1,000 mcg PO DAILY [facility] Ferrous Sulfate (Ferrous Sulfate) 325 mg PO 1245,1745 [facility] Last Admin: 12/19/19 18:12 Dose: 325 mg Documented by: Furosemide (Lasix) 40 mg PO BID@1000,1800 [facility] Last Admin: 12/19/19 18:12 Dose: 40 mg Documented by: Magnesium Oxide (Mag-Ox 400) 400 mg PO DAILY [facility] Multivitamins/Minerals (Multivitamin With Minerals (Bkc)) 1 tablet PO DAILY@0800 [facility] Nutritional Formula (Lactose Free) (Glucerna Shake) 120 ml PO 4X/DAY DONNA Nystatin (Mycostatin Powder) 1 applic TOPICAL TID DONNA; Protocol Potassium Chloride (K-Dur) 20 meq PO DAILY [facility]NA Tuberculin PPD (Tubersol, Aplisol, Ppd) 5 tu ID X1 ONE Stop: 12/20/19 10:01 Tuberculin PPD (Tubersol, Aplisol, Ppd) 5 tu ID X1 ONE Stop: 12/27/19 10:01 Assessment/Plan All Active Problems (Last Reviewed 10/22/19 @ 14:54 by Shirley Hill, CATALINA-C) Hospital-acquired pneumonia (Acute) Acute respiratory failure (Acute) Sepsis (Acute) Pulmonary vascular congestion (Acute) Cellulitis (Ruled-out) Debility (Acute) Venous stasis dermatitis (Acute) Bacteremia (Acute) Ulcer of right lower extremity with fat layer exposed (Acute) Cellulitis of left lower extremity (Acute) Septic shock (Acute) Septic shock (Acute) DEEPTI (acute kidney injury) (Acute) 69 year old male with below past medical history hospitalized for lymphedema, left lower extremity cellulitis ruled out, admitted to TCU with debility, here for rehabilitation, strengthening, prior to discharge home alone. Debility - PT/OT. Pain - Tylenol 1000MG Q6H PRN pain (1-10). Bowel - Miralax 17GM daily, Senna/colace 1 tablet BID, Dulcolax 10MG MT daily PRN. Adult immunization - Administer Prevnar 13, Pneumovax 23, Fluzone as appropriate. DVT prophylaxis - Hold, recent worsening of anemia. Gout - Allopurinol 300MG daily. Vitamin C deficiency - Vitamin C 500MG daily. Hyperlipidemia - Atorvastatin 20MG QHS. Chronic diastolic congestive heart failure - Coreg 6.25MG BID, Lasix 40MG BID. Vitamin D deficiency - D3 5000IU daily. Vitamin B12 deficiency - B12 1000MCG daily. Iron deficiency anemia - Ferrous sulfate 325MB BID. Nutrition - MVI daily, Glucerna 120ML 4x/day. Hypomagnesemia - Magnesium Oxide 400MG daily. Tinea Corporis - Nystatin powder TID. Hypokalemia - Potassium chloride 20MEQ daily.
[2019-12-19] MEDS: Nystatin Powder 15gm Bottle 1 APPLIC TOPICAL (20:24)
[2019-12-19] MEDS: Atorvastatin Calcium 20 MG Tablet PO (20:24)
[2019-12-19] MEDS: Glucerna Shake 120 ML LIQUID PO (20:30)
--- NOTE | 2019-12-19 21:48 | NURSING ---
Pt noted to have wallet with 50$ and two credit cards in it. Pt requesting wallet be placed in med box so if he needs it he has access to it. Money count verified with pt.
[2019-12-19 21:55] LABS: Bedside Glucose 180 mg/dL (70-110)
[2019-12-20] MEDS: Glucerna Shake 120 ML LIQUID PO (05:25)
[2019-12-20] MEDS: Menthol/Lanolin/Calamine/Znox 113 GM Tube 1 APPLIC TOPICAL ×2 (05:27→20:22)
[2019-12-20] MEDS: Allopurinol 300 MG Tablet PO (05:28)
[2019-12-20] MEDS: Cyanocobalamin 500 MCG Tablet 1000 MCG PO (05:28)
[2019-12-20] MEDS: Carvedilol 6.25 MG Tablet PO ×2 (05:28→17:44)
[2019-12-20] MEDS: Magnesium Oxide 400 MG Tablet PO (05:29)
[2019-12-20] MEDS: Ascorbic Acid 500 MG Tablet PO (05:29)
[2019-12-20] MEDS: Nystatin Powder 15gm Bottle 1 APPLIC TOPICAL ×3 (05:30→20:22)
[2019-12-20 05:37] VITALS: BP 128/54; PULSE 88; RESP 18; TEMP 36.4; O2SAT 94
[2019-12-20 05:45] LABS: Absolute Lymphocyte Count 0.92 X10^3/uL (0.83-4.51); Absolute Neutrophil Count 5.2 X10^3/uL (2.0-7.7); Basophil# 0.03 X10^3/uL; Basophil% 0.4 % (0-1); Eosinophil# 0.73 X10^3/uL; Eosinophils% 9.9 % (0-5); Hemoglobin 8.4 g/dL (13.0-16.5); Lymphocyte # 0.92 X10^3/ul (4.0); Lymphocyte % 12.5 % (19-41); Mean Corpuscular Hgb 31.5 pg (27.0-32.0); Mean Corpuscular Volume 104.9 fL (80-94); Mean Platelet Vol. 11.2 fl (6.2-12.0); Monocyte# 0.42 X10^3/uL; Monocyte% 5.7 % (0-10); NRBC Flagged by Analyzer 0 % (0-5); Neutrophil # 5.21 X10^3/uL (2.7-7.7); Neutrophil % 70.8 % (47-70); Platelet Count 222 K/mm3 (150-450); RBC Distribution Width CV 15.9 % (11.6-14.6); RBC Distribution Width SD 61.5 fl (35.1-43.9); Red Blood Count 2.67 M/mm3 (4.6-6.2); White Blood Count 7.4 K/mm3 (4.4-11.0)
[2019-12-20 06:00] LABS: Anion Gap 7 (5-15); BUN 53 mg/dL (7-18); BUN/Creat Ratio 19.8 RATIO (10-20); Calcium,Total 8.7 mg/dL (8.5-10.1); Chloride 110 mmol/L (98-107); Creatinine, Serum 2.68 mg/dL (0.70-1.30); EST Glomerular Filtration Rate 25 mL/min (>60); Est Glom Filt Rate - Afr Amer 30 mL/min (>60); Estimated Creatinine Clearance 26.48 ml/min; Glucose 135 mg/dL (74-106); Sodium Level 140 mmol/L (136-145)
[2019-12-20 06:26] LABS: Bedside Glucose 134 mg/dL (70-110)
[2019-12-20] MEDS: Multivitamins,Ther W-Minerals Tablet 1 TABLET PO (08:47)
[2019-12-20] MEDS: Furosemide 40 MG Tablet PO ×2 (08:47→17:44)
--- NOTE | 2019-12-20 09:48 | NURSING ---
skin photo: bilateral lower legs
[2019-12-20 10:00] VITALS: PULSE 80; RESP 16; O2SAT 92
[2019-12-20] MEDS: Tuberculin,Purif.prot.deriv. 50 TU/ML Vial 5 ML ID (10:54)
[2019-12-20 10:55] LABS: Bedside Glucose 139 mg/dL (70-110)
[2019-12-20] MEDS: Ferrous Sulfate 325 MG Tablet PO ×2 (12:51→17:44)
[2019-12-20 13:43] VITALS: BP 130/55; PULSE 84; RESP 16; TEMP 36.8; O2SAT 100
--- NOTE | 2019-12-20 15:33 | PHA.CONS_ITS ---
<DoreenromanaTeri M - Last Filed: 12/20/19 15:33> Progress Note - Pharmacy Subjective: TCU ADMISSION Objective: Allergies No Known Allergies Allergy (Verified 12/16/19 12:46) Current Medications Generic Name Dose Route Start Last Admin Trade Name Freq PRN Reason Stop Dose Admin Acetaminophen 1,000 mg 12/19/19 20:31 Tylenol PO Q6H PRN PRN Pain Score 1-10 Allopurinol 100 mg 12/21/19 08:00 Zyloprim PO DAILY DONNA Ascorbic Acid 500 mg 12/20/19 06:00 12/20/19 05:29 Vitamin C PO 500 mg DAILY DONNA Administration Atorvastatin Calcium 20 mg 12/19/19 22:00 12/19/19 20:24 Lipitor PO 20 mg QHS DONNA Administration Bisacodyl 10 mg 12/19/19 16:21 Dulcolax RECTAL DAILY PRN Constipation Calamine/Phenol 1 applic 12/20/19 06:00 12/20/19 05:27 Calmoseptine Ointment TOPICAL 1 applicatio 06,2200 [facility] Administration Protocol Carvedilol 6.25 mg 12/19/19 18:00 12/20/19 05:28 Coreg PO 6.25 mg BID DONNA Administration Cholecalciferol 5,000 unit 12/20/19 06:00 12/20/19 05:28 Vitamin D (25mcg) PO 5,000 unit DAILY DONNA Administration Cyanocobalamin 1,000 mcg 12/20/19 06:00 12/20/19 05:28 Vitamin B12 PO 1,000 mcg DAILY DONNA Administration Ferrous Sulfate 325 mg 12/19/19 17:45 12/20/19 12:51 Ferrous Sulfate PO 325 mg 1245,1745 DONNA Administration Furosemide 40 mg 12/19/19 18:00 12/20/19 08:47 Lasix PO 40 mg BID@1000,1800 [facility] Administration Magnesium Oxide 400 mg 12/20/19 06:00 12/20/19 05:29 Mag-Ox 400 PO 400 mg DAILY DONNA Administration Multi-Ingredient Cream 1 applic 12/20/19 06:00 12/20/19 05:29 Eucerin TOPICAL 1 applicatio 0600,2200 [facility] Administration Protocol Multivitamins/Minerals 1 tablet 12/20/19 08:00 12/20/19 08:47 Multivitamin With Minerals (Bkc) PO 1 tablet DAILY@0800 DONNA Administration Nutritional Formula (Lactose Free) 120 ml 12/19/19 22:00 12/20/19 11:41 Glucerna Shake PO Not Given 4X/DAY [facility] Nystatin 1 applic 12/19/19 22:00 12/20/19 05:30 Mycostatin Powder TOPICAL 1 applicatio TID DONNA Administration Protocol Potassium Chloride 20 meq 12/20/19 06:00 12/20/19 05:29 K-Dur PO 20 meq DAILY DONNA Administration Sodium Chloride 10 - 40 ml 12/19/19 20:24 IV UD PRN SALINE FLUSH Tuberculin PPD 5 tu 12/27/19 10:00 Tubersol, Aplisol, Ppd ID 12/27/19 10:01 X1 ONE Problem List (Last Reviewed 10/22/19 @ 14:54 by Shirley Hill, SAILBOAT CAPTAIN-C) Debility (Acute) Lymphedema (Chronic) Diabetes mellitus (Chronic) Hypomagnesemia (Chronic) Hypokalemia (Chronic) Chronic kidney disease (Chronic) Chronic diastolic (congestive) heart failure (Chronic) Venous stasis dermatitis (Acute) Hypertension (Chronic) Body mass index (BMI) 40.0-44.9, adult (Chronic) Vital Signs Temp Pulse Resp BP Pulse Ox 98.3 F 84 16 130/55 H 100 12/20/19 13:43 12/20/19 13:43 12/20/19 13:43 12/20/19 13:43 12/20/19 13:43 Oxygen Delivery Method Room Air Weight: 131.5 kg Body Mass Index (BMI) 41.5 Sodium 140 mmol/L (136-145) 12/20/19 05:25 Potassium 4.0 mmol/L (3.5-5.1) 12/20/19 05:25 Chloride 110 mmol/L (98-107) H 12/20/19 05:25 Carbon Dioxide 23.0 mmol/L (21.0-32.0) 12/20/19 05:25 Anion Gap 7 (5-15) 12/20/19 05:25 BUN 53 mg/dL (7-18) H 12/20/19 05:25 Creatinine 2.68 mg/dL (0.70-1.30) H 12/20/19 05:25 Est GFR (MDRD) Af Amer 30 mL/min (>60) L 12/20/19 05:25 Est GFR (MDRD) Non-Af 25 mL/min (>60) L 12/20/19 05:25 BUN/Creatinine Ratio 19.8 RATIO (-20) 12/20/19 05:25 Glucose 135 mg/dL (74-106) H 12/20/19 05:25 Assessment/Plan: 1. Pain: Tylenol 1000mg PO Q6H PRN for pain (1-10). Please continue to monitor for S/S of increased or decreased pain, PRN medication usage. 2. CHF: Coreg 6.25mg PO BID, Lasix 40mg PO BID. Please continue to monitor BP (1340/55mmHg on 12/19), HR (84bpm on 12/19), K (4mmol/L on 12/19). 3.Gout: Allopurinol 100 mg PO daily. Please continue to monitor for symptom improvement/ worsening. Last uric acid (5.8mg/dL on 04/22/17) may want to con jewel waxer reordering a uric acid level if clinically indicated. 4. Hyperlipidemia: Atorvastatin 20mg PO QHS. Lipid panel 08/31/19 all WNL. Liver panel 12/17/19 all WNL. Please continue to monitor for S/S of rhabdomyolysis. 5. Anemia: Ferrous sulfate 325 mg PO BID. Please continue to monitor of S/S of anemia (fatigue). Iron 48ug/dL on 08/26/19. 6. Hypomagnesemia: Magnesium Oxide PO 400mg daily. Please continue to monitor for S/S of low magnesium levels. Mg 1.6mg/dL on 11/25/19. 7. Hypokalemia: Potassium chloride 20mEq PO daily. Please continue to monitor for S/S of low potassium levels K 4mmol/L on 12/20/19. 8. General Wellness: Vitamin C 500mg PO daily, Vitamin D3 5000 units PO daily, Vitamin B12 1000mcg PO daily, Multivitamin 1 tab PO daily. Please continue to monitor. Psychotropic Medications: None Unnecessary Medications: None Bowel Regimen: Bowel: Miralax 17g PO daily, Senna/Docusate 1 tablet PO BID, Dulcolax 10mg ND daily PRN. Please continue to monitor for signs and symptoms of constipation or diarrhea. Date of Note:: 12/20/19 - Provider Comments Provider responsibility: Provider responsible to enter orders to implement recommendations <MickMark Yeh - Last Filed: 12/20/19 17:00> Progress Note - Pharmacy Subjective: [] Objective: Allergies No Known Allergies Allergy (Verified 12/16/19 12:46) Current Medications Generic Name Dose Route Start Last Admin Trade Name Freq PRN Reason Stop Dose Admin Acetaminophen 1,000 mg 12/19/19 20:31 Tylenol PO Q6H PRN PRN Pain Score 1-02/18 Allopurinol 100 mg 12/21/19 08:00 Zyloprim PO DAILY DONNA Ascorbic Acid 500 mg 12/20/19 06:00 12/20/19 05:29 Vitamin C PO 500 mg DAILY DONNA Administration Atorvastatin Calcium 20 mg 12/19/19 22:00 12/19/19 20:24 Lipitor PO 20 mg QHS DONNA Administration Bisacodyl 10 mg 12/19/19 16:21 Dulcolax RECTAL DAILY PRN Constipation Calamine/Phenol 1 applic 12/20/19 06:00 12/20/19 05:27 Calmoseptine Ointment TOPICAL 1 applicatio 06,2200 [facility] Administration Protocol Carvedilol 6.25 mg 12/19/19 18:00 12/20/19 05:28 Coreg PO 6.25 mg BID DONNA Administration Cholecalciferol 5,000 unit 12/20/19 06:00 12/20/19 05:28 Vitamin D (25mcg) PO 5,000 unit DAILY DONNA Administration Cyanocobalamin 1,000 mcg 12/20/19 06:00 12/20/19 05:28 Vitamin B12 PO 1,000 mcg DAILY DONNA Administration Ferrous Sulfate 325 mg 12/19/19 17:45 12/20/19 12:51 Ferrous Sulfate PO 325 mg 1245,1745 DONNA Administration Furosemide 40 mg 12/19/19 18:00 12/20/19 08:47 Lasix PO 40 mg BID@1000,1800 DONNA Administration Magnesium Oxide 400 mg 12/20/19 06:00 12/20/19 05:29 Mag-Ox 400 PO 400 mg DAILY DONNA Administration Multi-Ingredient Cream 1 applic 12/20/19 06:00 12/20/19 05:29 Eucerin TOPICAL 1 applicatio 599,2200 [facility] Administration Protocol Multivitamins/Minerals 1 tablet 12/20/19 08:00 12/20/19 08:47 Multivitamin With Minerals (Bkc) PO 1 tablet DAILY@0800 DON[facility] Administration Nutritional Formula (Lactose Free) 120 ml 12/19/19 22:00 12/20/19 11:41 Glucerna Shake PO Not Given 4X/DAY [facility] Nystatin 1 applic 12/19/19 22:00 12/20/19 05:30 Mycostatin Powder TOPICAL 1 applicatio TID DONNA Administration Protocol Potassium Chloride 20 meq 12/20/19 06:00 12/20/19 05:29 K-Dur PO 20 meq DAILY [facility] Administration Sodium Chloride 10 - 40 ml 12/19/19 20:24 IV UD PRN SALINE FLUSH Tuberculin PPD 5 tu 12/27/19 10:00 Tubersol, Aplisol, Ppd ID 12/27/19 10:01 X1 ONE Problem List (Last Reviewed 10/22/19 @ 14:54 by Shirley Hill, SAILBOAT CAPTAIN-C) Debility (Acute) Lymphedema (Chronic) Diabetes mellitus (Chronic) Hypomagnesemia (Chronic) Hypokalemia (Chronic) Chronic kidney disease (Chronic) Chronic diastolic (congestive) heart failure (Chronic) Venous stasis dermatitis (Acute) Hypertension (Chronic) Body mass index (BMI) 40.0-44.9, adult (Chronic) Vital Signs Temp Pulse Resp BP Pulse Ox 98.3 F 84 16 130/55 H 100 12/20/19 13:43 12/20/19 13:43 12/20/19 13:43 12/20/19 13:43 12/20/19 13:43 Oxygen Delivery Method Room Air Weight: 131.5 kg Body Mass Index (BMI) 41.5 Sodium 140 mmol/L (136-145) 12/20/19 05:25 Potassium 4.0 mmol/L (3.5-5.1) 12/20/19 05:25 Chloride 110 mmol/L (98-107) H 12/20/19 05:25 Carbon Dioxide 23.0 mmol/L (21.0-32.0) 12/20/19 05:25 Anion Gap 7 (5-15) 12/20/19 05:25 BUN 53 mg/dL (7-18) H 12/20/19 05:25 Creatinine 2.68 mg/dL (0.70-1.30) H 12/20/19 05:25 Est GFR (MDRD) Af Amer 30 mL/min (>60) L 12/20/19 05:25 Est GFR (MDRD) Non-Af 25 mL/min (>60) L 12/20/19 05:25 BUN/Creatinine Ratio 19.8 RATIO (-20) 12/20/19 05:25 Glucose 135 mg/dL (74-106) H 12/20/19 05:25 Assessment/Plan: Psychotropic Medications: Unnecessary Medications: Bowel Regimen: - Provider Comments Provider responsibility: Provider responsible to enter orders to implement recommendations Provider Comments to Recommendations by Pharmacy: Agree
--- NOTE | 2019-12-20 15:40 | CASEMGMT ---
Social Work Discussed code status with pt. Pt confirmed full code. MOLST form completed and placed in chart. Xiomara Young MSW WEAPONS AND TACTICS INSTRUCTOR
[2019-12-20 16:26] LABS: Bedside Glucose 147 mg/dL (70-110)
[2019-12-20] MEDS: Atorvastatin Calcium 20 MG Tablet PO (20:17)
[2019-12-20 21:31] LABS: Bedside Glucose 155 mg/dL (70-110)
[2019-12-21] MEDS: Carvedilol 6.25 MG Tablet PO ×2 (06:18→17:14)
[2019-12-21] MEDS: Cyanocobalamin 500 MCG Tablet 1000 MCG PO (06:18)
[2019-12-21] MEDS: Magnesium Oxide 400 MG Tablet PO (06:18)
[2019-12-21] MEDS: Ascorbic Acid 500 MG Tablet PO (06:18)
[2019-12-21] MEDS: Nystatin Powder 15gm Bottle 1 APPLIC TOPICAL ×3 (06:20→21:08)
[2019-12-21] MEDS: Menthol/Lanolin/Calamine/Znox 113 GM Tube 1 APPLIC TOPICAL ×2 (06:20→21:08)
[2019-12-21 06:21] VITALS: BP 131/63; PULSE 93; RESP 18; TEMP 36.6; O2SAT 98
--- NOTE | 2019-12-21 06:23 | NURSING ---
Patient refused to wear Lymphedema pumps this shift. Educated patient on using them as ordered will help his progress.
[2019-12-21 06:30] LABS: Bedside Glucose 119 mg/dL (70-110)
[2019-12-21] MEDS: Allopurinol 100 MG Tablet PO (08:50)
[2019-12-21] MEDS: Multivitamins,Ther W-Minerals Tablet 1 TABLET PO (08:50)
[2019-12-21] MEDS: Furosemide 40 MG Tablet PO ×2 (09:05→17:14)
--- NOTE | 2019-12-21 10:01 | NURSING ---
Addendum entered by Ramakrishna Shepherd 12/21/19 10:03: LOTION ALSO APPLIED TO LOWER LEGS PER ORDER. Original Note: PT HAD SHOWER WITH THERAPY PRESENT. THIS NURSE CHANGED PT DRESSINGS. PT TOLERATED WELL.
[2019-12-21 11:26] LABS: Bedside Glucose 130 mg/dL (70-110)
[2019-12-21] MEDS: Ferrous Sulfate 325 MG Tablet PO ×2 (11:29→17:14)
--- NOTE | 2019-12-21 13:40 | NURSING ---
this nurse noticed that patent has a rash on his right leg,back and right arm,right side. pt stated it didn't itch. reported to rn.
[2019-12-21 13:43] VITALS: BP 121/52; PULSE 88; RESP 18; TEMP 36.9; O2SAT 91
--- NOTE | 2019-12-21 13:48 | NURSING ---
pt stated that there was no one for this nurse to call and up date at this time.
--- NOTE | 2019-12-21 15:56 | CHAPLAIN ---
Type of Pastoral Visit _x__ Initial Visit ___ Follow-up Visit ___ On-call Visit ___ General Patient Visit ___ Spiritual Assessment ___ Family Conference ___ Bereavement ___ Rapid Response ___ Code Blue ___ Other (describe below) Pastoral Care Referral From _x__ Patient ___ Family ___ Nurse ___ Physician ___ Patternmaker Apprentice Metal ___ Tearer Press Clipping ___ Other (describe below) Sacrament/Intervention _x__ Active listening ___ Anointing ___ Tenriism ___ Bereavement ___ Communion _x_ Katlyn exploration ___ _x__ Life review _x__ Prayer ___ Reconciliation ___ Sacrament of Sick ___ Supportive presence ___ Wedding ___ Other (describe below) Pastoral Comments
[2019-12-21 16:26] LABS: Bedside Glucose 136 mg/dL (70-110)
[2019-12-21] MEDS: Glucerna Shake 120 ML LIQUID PO (17:13)
[2019-12-21] MEDS: Hydrocortisone 2.5% Crm 1 APPLIC TOPICAL (18:29)
[2019-12-21] MEDS: Atorvastatin Calcium 20 MG Tablet PO (21:03)
[2019-12-21 21:12] VITALS: PULSE 82; RESP 16; O2SAT 98
[2019-12-21 21:36] LABS: Bedside Glucose 167 mg/dL (70-110)
[2019-12-22 05:00] VITALS: BP 121/57; PULSE 86; RESP 18; TEMP 36.8; O2SAT 95
[2019-12-22 06:15] LABS: Bedside Glucose 127 mg/dL (70-110)
[2019-12-22] MEDS: Cyanocobalamin 500 MCG Tablet 1000 MCG PO (06:40)
[2019-12-22] MEDS: Carvedilol 6.25 MG Tablet PO ×2 (06:40→17:12)
[2019-12-22] MEDS: Ascorbic Acid 500 MG Tablet PO (06:40)
[2019-12-22] MEDS: Magnesium Oxide 400 MG Tablet PO (06:40)
[2019-12-22] MEDS: Menthol/Lanolin/Calamine/Znox 113 GM Tube 1 APPLIC TOPICAL ×2 (06:42→21:27)
[2019-12-22] MEDS: Nystatin Powder 15gm Bottle 1 APPLIC TOPICAL ×3 (06:43→21:26)
[2019-12-22] MEDS: Allopurinol 100 MG Tablet PO (08:01)
[2019-12-22] MEDS: Multivitamins,Ther W-Minerals Tablet 1 TABLET PO (08:01)
[2019-12-22 10:00] VITALS: RESP 16
[2019-12-22] MEDS: Furosemide 40 MG Tablet PO ×2 (10:08→17:12)
[2019-12-22 11:21] LABS: Bedside Glucose 153 mg/dL (70-110)
--- NOTE | 2019-12-22 11:25 | CASEMGMT ---
BIMS and PHQ9 interviews completed on this date for MDS assessment. ROSA Arcos
[2019-12-22] MEDS: Ferrous Sulfate 325 MG Tablet PO ×2 (13:17→17:12)
--- NOTE | 2019-12-22 13:24 | CASEMGMT ---
Social Work IDT met with patient and sister via conference call for care plan meeting. Discussed patient's progress in therapy. Pt is CGA for bed mobility, CGA for sit to stands and transfers using FWW, CGA to ambulate 100 ft with FWW. Pt is set up for grooming, min for bathing, set up for UE dressing, mod for LE dressing, needs assist for posterior care for toileting. Pt is out of room isolation 01/01. Pt is getting BLE wrapped. Discussed assistance in the home. Pt has hired someone to assist x2/wk with wraps and cleaning. Discussed hiring a nurse to continue with monitoring legs to ensure pt garcia not keep returning to he hospital, as reported by pt and sister. Explained Palliative Medicine. Pt and sister agree to referral. Emailed list of nonskilled [facility] agencies to sister to coordinate. The goal is to return home alone. Will continue to follow. Referral made to Palliative. Xiomara Young, REPRODUCTIVE ENDOCRINOLOGIST COUNTER TOP MAKER
--- NOTE | 2019-12-22 13:55 | NURSING ---
Staff approached pt at approx. 10:45 to get pt ready for appointment. Pt told staff his appointment was not at 11am that is was at 1pm, that he was to have his care conference at 11am and was resistant to leave room stating he had talked with the office and it was 1pm. Staff tried to call Dr. Loco's office to confirm appointment time, but no answer. Staff went to Claudy's office and their office rescheduled appointment for 12/28/19 at 10am.
[2019-12-22 14:09] VITALS: BP 130/55; PULSE 84; RESP 20; TEMP 36.4; O2SAT 96
[2019-12-22 17:20] LABS: Bedside Glucose 163 mg/dL (70-110)
[2019-12-22 21:06] LABS: Bedside Glucose 167 mg/dL (70-110)
[2019-12-22] MEDS: Atorvastatin Calcium 20 MG Tablet PO (21:26)
[2019-12-22] MEDS: Hydrocortisone 2.5% Crm 1 APPLIC TOPICAL (21:33)
--- NOTE | 2019-12-23 00:05 | NURSING ---
Pt refused lymphedema pump states, I will put it on tomorrow I know how to use it.
[2019-12-23 05:00] VITALS: BP 114/57; PULSE 78; RESP 16; TEMP 36.7; O2SAT 95
[2019-12-23 06:30] LABS: Bedside Glucose 128 mg/dL (70-110)
[2019-12-23] MEDS: Ascorbic Acid 500 MG Tablet PO (06:47)
[2019-12-23] MEDS: Carvedilol 6.25 MG Tablet PO ×2 (06:48→17:16)
[2019-12-23] MEDS: Magnesium Oxide 400 MG Tablet PO (06:48)
[2019-12-23] MEDS: Cyanocobalamin 500 MCG Tablet 1000 MCG PO (06:48)
[2019-12-23] MEDS: Nystatin Powder 15gm Bottle 1 APPLIC TOPICAL ×2 (06:51→21:42)
[2019-12-23] MEDS: Menthol/Lanolin/Calamine/Znox 113 GM Tube 1 APPLIC TOPICAL ×2 (06:51→21:42)
[2019-12-23] MEDS: Multivitamins,Ther W-Minerals Tablet 1 TABLET PO (07:48)
[2019-12-23] MEDS: Allopurinol 100 MG Tablet PO (07:48)
[2019-12-23] MEDS: Furosemide 40 MG Tablet PO ×2 (09:08→17:16)
[2019-12-23] MEDS: Ferrous Sulfate 325 MG Tablet PO ×2 (13:23→17:16)
[2019-12-23 13:52] VITALS: BP 107/54; PULSE 77; RESP 18; TEMP 36.7; O2SAT 96
[2019-12-23] MEDS: Atorvastatin Calcium 20 MG Tablet PO (21:39)
[2019-12-23 21:50] VITALS: RESP 16; O2SAT 97
--- NOTE | 2019-12-23 23:30 | NURSING ---
Pt continues to be non compliant with wearing his lymphedema pump. Resting in recliner with legs elevated and call light within reach. Rn aware.
[2019-12-24 05:00] VITALS: BP 131/61; PULSE 82; RESP 16; TEMP 36.8; O2SAT 97
[2019-12-24 06:26] LABS: Bedside Glucose 126 mg/dL (70-110)
[2019-12-24] MEDS: Cyanocobalamin 500 MCG Tablet 1000 MCG PO (07:06)
[2019-12-24] MEDS: Ascorbic Acid 500 MG Tablet PO (07:06)
[2019-12-24] MEDS: Carvedilol 6.25 MG Tablet PO ×2 (07:06→17:13)
[2019-12-24] MEDS: Magnesium Oxide 400 MG Tablet PO (07:06)
[2019-12-24] MEDS: Menthol/Lanolin/Calamine/Znox 113 GM Tube 1 APPLIC TOPICAL ×2 (07:08→21:58)
[2019-12-24] MEDS: Nystatin Powder 15gm Bottle 1 APPLIC TOPICAL ×3 (07:08→21:58)
[2019-12-24] MEDS: Hydrocortisone 2.5% Crm 1 APPLIC TOPICAL (07:09)
[2019-12-24] MEDS: Allopurinol 100 MG Tablet PO ×2 (08:48→08:50)
[2019-12-24] MEDS: Multivitamins,Ther W-Minerals Tablet 1 TABLET PO (08:48)
[2019-12-24] MEDS: Furosemide 40 MG Tablet PO ×2 (08:50→17:13)
[2019-12-24 09:45] VITALS: PULSE 78; RESP 18; O2SAT 92
--- NOTE | 2019-12-24 10:47 | MDS.RN ---
Pain interview for lilly 12/26/19 completed.
[2019-12-24 11:06] LABS: Bedside Glucose 188 mg/dL (70-110)
--- NOTE | 2019-12-24 11:49 | NURSING ---
PT stated he didnt want anyone called.
[2019-12-24] MEDS: Ferrous Sulfate 325 MG Tablet PO ×2 (11:50→17:13)
[2019-12-24 13:42] VITALS: BP 131/55; PULSE 86; RESP 18; TEMP 37.1; O2SAT 92
[2019-12-24] MEDS: Atorvastatin Calcium 20 MG Tablet PO (21:58)
[2019-12-25 05:00] VITALS: BP 166/49; PULSE 90; RESP 18; TEMP 36.6; O2SAT 90
[2019-12-25] MEDS: Menthol/Lanolin/Calamine/Znox 113 GM Tube 1 APPLIC TOPICAL ×2 (06:22→22:02)
[2019-12-25] MEDS: Carvedilol 6.25 MG Tablet PO ×2 (06:22→17:45)
[2019-12-25] MEDS: Cyanocobalamin 500 MCG Tablet 1000 MCG PO (06:22)
[2019-12-25] MEDS: Ascorbic Acid 500 MG Tablet PO (06:22)
[2019-12-25] MEDS: Magnesium Oxide 400 MG Tablet PO (06:22)
[2019-12-25] MEDS: Nystatin Powder 15gm Bottle 1 APPLIC TOPICAL ×3 (06:23→22:03)
[2019-12-25 06:25] LABS: Bedside Glucose 138 mg/dL (70-110)
[2019-12-25] MEDS: Multivitamins,Ther W-Minerals Tablet 1 TABLET PO (08:07)
[2019-12-25] MEDS: Furosemide 40 MG Tablet PO ×2 (09:54→17:45)
--- NOTE | 2019-12-25 11:34 | NURSING ---
Pt stated he talks and updates his family he does not need staff to call.
[2019-12-25] MEDS: Ferrous Sulfate 325 MG Tablet PO ×2 (13:31→17:45)
--- NOTE | 2019-12-25 13:46 | NURSING ---
This nurse asked pt if he was ready to use his lymphedema pumps, he stated No not right now, I will just do it after supper before I go to bed, RN aware.
[2019-12-25 13:59] VITALS: BP 154/65; PULSE 84; RESP 17; TEMP 36.8; O2SAT 98
[2019-12-25 22:02] VITALS: PULSE 81; RESP 18; O2SAT 94
[2019-12-25] MEDS: Atorvastatin Calcium 20 MG Tablet PO (22:02)
--- NOTE | 2019-12-26 02:57 | NURSING ---
Patient continues to be non-compliant with wearing his lymphedema pumps. Patient educated, but continues to refuse. RN aware.
[2019-12-26] MEDS: Carvedilol 6.25 MG Tablet PO ×2 (05:14→17:43)
[2019-12-26] MEDS: Magnesium Oxide 400 MG Tablet PO (05:14)
[2019-12-26] MEDS: Cyanocobalamin 500 MCG Tablet 1000 MCG PO (05:14)
[2019-12-26] MEDS: Ascorbic Acid 500 MG Tablet PO (05:14)
[2019-12-26] MEDS: Menthol/Lanolin/Calamine/Znox 113 GM Tube 1 APPLIC TOPICAL ×2 (05:19→22:49)
[2019-12-26] MEDS: Nystatin Powder 15gm Bottle 1 APPLIC TOPICAL ×3 (05:19→22:49)
[2019-12-26 05:20] VITALS: BP 117/56; PULSE 81; RESP 18; TEMP 36.7; O2SAT 93
[2019-12-26 06:26] LABS: Bedside Glucose 119 mg/dL (70-110)
[2019-12-26] MEDS: Multivitamins,Ther W-Minerals Tablet 1 TABLET PO (07:59)
[2019-12-26] MEDS: Allopurinol 100 MG Tablet PO (07:59)
[2019-12-26] MEDS: Furosemide 40 MG Tablet PO ×2 (10:21→17:43)
[2019-12-26 11:16] LABS: Bedside Glucose 185 mg/dL (70-110)
[2019-12-26] MEDS: Ferrous Sulfate 325 MG Tablet PO ×2 (13:52→17:43)
[2019-12-26 14:00] VITALS: BP 115/55; PULSE 78; RESP 20; TEMP 36.4; O2SAT 92
--- NOTE | 2019-12-26 14:19 | NURSING ---
pt continues to refuse lymphedema pumps
[2019-12-26] MEDS: Atorvastatin Calcium 20 MG Tablet PO (22:48)
--- NOTE | 2019-12-27 00:58 | NURSING ---
pt called out to go to restroom and get cleaned up for bed, also asked to sleep in the bed for the first time. once getting feet up into bed pt was sob, using accessory muscles trying to catch his breath, spo2 dropped to 79, lung sounds were clear bilat. on anterior side and a slight expiratory wheeze bilat. on posterior side. pt was able to get spo2 up to 81, rn made aware and applied 2 L o2, spo2 at this time at 93%. will continue to monitor. pt is resting in bed with hob elevated and o2 on and call light in reach.
--- NOTE | 2019-12-27 02:50 | NURSING ---
pt wore lymphedema pumps tonight for about 20 min.
[2019-12-27 05:00] VITALS: BP 115/58; PULSE 83; RESP 20; TEMP 36.6; O2SAT 88
[2019-12-27 05:29] LABS: Absolute Lymphocyte Count 0.97 X10^3/uL (0.83-4.51); Absolute Neutrophil Count 4.4 X10^3/uL (2.0-7.7); Basophil# 0.02 X10^3/uL; Basophil% 0.3 % (0-1); Eosinophil# 0.28 X10^3/uL; Eosinophils% 4.5 % (0-5); Hematocrit 27.6 % (40-54); Lymphocyte # 0.97 X10^3/ul (4.0); Lymphocyte % 15.6 % (19-41); Mean Corpuscular Hgb 31.4 pg (27.0-32.0); Mean Corpuscular Volume 108.2 fL (80-94); Mean Platelet Vol. 11.9 fl (6.2-12.0); Monocyte# 0.49 X10^3/uL; Monocyte% 7.9 % (0-10); NRBC Flagged by Analyzer 0 % (0-5); Neutrophil % 70.6 % (47-70); Platelet Count 173 K/mm3 (150-450); RBC Distribution Width CV 15.9 % (11.6-14.6); RBC Distribution Width SD 62.8 fl (35.1-43.9); Red Blood Count 2.55 M/mm3 (4.6-6.2); White Blood Count 6.2 K/mm3 (4.4-11.0)
[2019-12-27 05:47] LABS: Anion Gap 6 (5-15); BUN 78 mg/dL (7-18); BUN/Creat Ratio 27.4 RATIO (10-20); Calcium,Total 8.6 mg/dL (8.5-10.1); Chloride 111 mmol/L (98-107); Creatinine, Serum 2.85 mg/dL (0.70-1.30); EST Glomerular Filtration Rate 23 mL/min (>60); Est Glom Filt Rate - Afr Amer 28 mL/min (>60); Glucose 150 mg/dL (74-106); Sodium Level 141 mmol/L (136-145)
[2019-12-27] MEDS: Magnesium Oxide 400 MG Tablet PO (05:49)
[2019-12-27] MEDS: Cyanocobalamin 500 MCG Tablet 1000 MCG PO (05:49)
[2019-12-27] MEDS: Ascorbic Acid 500 MG Tablet PO (05:49)
[2019-12-27] MEDS: Carvedilol 6.25 MG Tablet PO ×2 (05:49→17:17)
[2019-12-27] MEDS: Nystatin Powder 15gm Bottle 1 APPLIC TOPICAL ×3 (05:50→20:45)
[2019-12-27] MEDS: Menthol/Lanolin/Calamine/Znox 113 GM Tube 1 APPLIC TOPICAL ×2 (05:50→20:46)
[2019-12-27 06:26] LABS: Bedside Glucose 163 mg/dL (70-110)
--- NOTE | 2019-12-27 07:56 | NURSING ---
Addendum entered by Radha Hernandez 12/27/19 09:23: Dr Barton updated on low sats through night, new order for chest xray. Original Note: aid came to this nurse and stated patent is not making any sense when talking. patent oxygen down to 88% room air. placed 2l on patent. patent alert and oriented x3 now and oxygen 93% on 2l. rn aware.
--- NOTE | 2019-12-27 08:07 | RAD_ITS ---
STUDY: X-RAY CHEST REASON FOR EXAM: Male, 69 years old. HYPOXIA TECHNIQUE: PA and lateral views of the chest. COMPARISON: 12/16/2019 FINDINGS: Lungs are expanded. Worsening interstitial edema noted in the lung bases when compared to the previous study and there are now free-flowing bilateral pleural effusions well. Findings are suggestive of CHF. Normal size heart. Normal mediastinum and calli. Normal visualized pulmonary arteries. Normal visualized aortic arch and descending thoracic aorta. There are diffuse degenerative changes of the visualized thoracic spine. There is degenerative osteoarthritis of the bilateral shoulders. There is no demonstrated abnormality of the visualized soft tissue structures of the upper abdomen. RAD/Chest PA and Lateral IMPRESSION: Worsening interstitial edema with development of bilateral pleural effusions since the previous study. Follow-up recommended to ensure resolution Electronically Signed: Thanh Quiñones MD at 10:00 EDT , Service support ,
[2019-12-27] MEDS: Multivitamins,Ther W-Minerals Tablet 1 TABLET PO (08:32)
[2019-12-27] MEDS: Allopurinol 100 MG Tablet PO (08:32)
--- NOTE | 2019-12-27 10:02 | NURSING ---
pt stated he did not want anyone called to update.
[2019-12-27] MEDS: Tuberculin,Purif.prot.deriv. 50 TU/ML Vial 5 ML ID (10:10)
[2019-12-27] MEDS: Furosemide 40 MG Tablet PO (10:11)
--- NOTE | 2019-12-27 11:08 | NURSING ---
skin photo: left lower leg
--- NOTE | 2019-12-27 11:08 | NURSING ---
skin photo: right lower leg
[2019-12-27] MEDS: Ferrous Sulfate 325 MG Tablet PO ×2 (11:57→17:17)
--- NOTE | 2019-12-27 12:42 | NURSING ---
pt returned from appt with molly Roman CNP. new orders to start bipap 25/21cm water with sleep. titrate oxygen to keep sat 89-92%, duonebs q6h WA, keep f/u appt with Dr Cash on 02/02 1:15p. Beulah, Margot Therapist updated on orders. pt had split sleep study done on 11/07 showing 68.9 events per hour.
--- NOTE | 2019-12-27 13:17 | NURSING ---
Updated patent sister on new orders. patent was aware.
[2019-12-27 13:34] VITALS: BP 108/56; PULSE 78; RESP 20; TEMP 36.7; O2SAT 97
--- NOTE | 2019-12-27 13:56 | NURSING ---
patent wore lymphedema pumps for 30 mins.
[2019-12-27 14:20] VITALS: PULSE 84; RESP 21; O2SAT 95
[2019-12-27] MEDS: Ipratropium/Albuterol Sulfate 3 ML AMPUL.NEB INHALATION ×2 (14:20→19:28)
--- NOTE | 2019-12-27 16:02 | CASEMGMT ---
Social Work Spoke with pt about request to DC home 01/01. IDT agreeable. Pt requesting [facility]. Referral made for PT/OT/SN/CANE FLUME WATCHMAN. Pt has new O2 and bipap. Sleep lab ordered bipap. [facility] get [facility]. No other DME needs. Notified Palliative of DC. Plan: DC home 01/01 with [facility] PT/OT/SN/CANE FLUME WATCHMAN. Xiomara Young, SALES PROFESSIONAL BILINGUAL AIR CREW SUPERVISOR
[2019-12-27] MEDS: Furosemide 40 MG/4 ML Vial IV (18:09)
[2019-12-27] MEDS: 0.9% Saline Lock 10 ML Syringe IV (18:10)
[2019-12-27 19:28] VITALS: PULSE 85; RESP 20
[2019-12-27] MEDS: Atorvastatin Calcium 20 MG Tablet PO (20:44)
[2019-12-27 20:45] VITALS: PULSE 78; RESP 18; O2SAT 97
[2019-12-27] MEDS: Hydrocortisone 2.5% Crm 1 APPLIC TOPICAL (20:57)
--- NOTE | 2019-12-27 21:27 | DCINST_ITS ---
- Discharge Diagnoses Current Active Problems: Current Active and Chronic Problems (Last Reviewed 12/27/19 @ 11:28 by LUCIANO De La Torre) Debility (Acute) Lymphedema (Chronic) Diabetes mellitus (Chronic) Hypomagnesemia (Chronic) Hypokalemia (Chronic) Chronic kidney disease (Chronic) Chronic diastolic (congestive) heart failure (Chronic) Venous stasis dermatitis (Acute) Hypertension (Chronic) Body mass index (BMI) 40.0-44.9, adult (Chronic) You will use the following diet at home:: No restrictions, Regular Your food should be the consistency of: Regular Your liquids should be the consistency of: Regular/Thin Discharge Activity: Return to Normal Activity, May Shower, Use Walker Weight Bearing Status: Weight bearing as tolerated Call your doctor if you observe: Fever of 101 or Higher, Inability to urinate, Inability to have a bowel movement, Shortness of breath, Chest pain, Uncontrolled pain Allergies/Adverse Reactions: Allergies No Known Allergies Allergy (Verified 12/27/19 11:21) Medications to take at Discharge Ascorbic Acid [Vitamin C] 500 mg PO DAILY 03/08/17 Magnesium 500 mg PO DAILY 03/08/17 allopurinol 300 mg tablet 300 mg PO DAILY 08/23/19 cholecalciferol (vitamin D3) 125 mcg (5,000 unit) capsule 125 mcg PO DAILY 08/23/19 cyanocobalamin (vitamin B-12) 1,000 mcg capsule 1,000 mcg PO DAILY 08/24/19 omega-3 fatty acids 1,000 mg capsule 1,000 mg PO DAILY 08/24/19 Multivitamin with Minerals [Multiple Vitamin] 1 tab PO DAILY 10/06/19 Simvastatin 40 mg PO QHS 10/06/19 Carvedilol [Coreg (Beta Lane)] 6.25 mg PO BID #0 11/27/19 Ferrous Sulfate 325 mg PO BID 12/16/19 Potassium Chloride [Klor-Con M10] 20 meq PO DAILY 12/16/19 Nystatin Powder [Mycostatin Powder] 1 applic TOPICAL TID 12/19/19 Acetaminophen [Tylenol] 1,000 mg PO Q6H PRN PRN tablet 12/27/19 Furosemide 20 mg PO BID@1000,1800 #60 tab 12/27/19 Hydrocortisone 2.5% Crm [Hytone] 1 applic TOPICAL BID PRN PRN #1 tube 12/27/19 Menthol/Lanolin/Calamine/Znox [Calmoseptine Ointment] 1 applic TOPICAL 0600,2200 tube 12/27/19 Mineral Oil/Petrolatum,White [Eucerin] 1 applic TOPICAL 0600,2200 jar 12/27/19 The following prescriptions were given: Furosemide 20 mg PO BID@1000,1800 #60 tab Transmission Status: [id number] Hydrocortisone 2.5% Crm [Hytone] 1 applic TOPICAL BID PRN PRN #1 tube PRN Reason: RASH/TOPICAL IRRITATION Transmission Status: [id number] Primary Care Physician: Han Adrian MD [Primary Care Provider] - Please follow up with your Primary Care Physician in: 1 week. Test Results: Test results from this visit will be discussed in further detail at your follow- up appointment, if applicable. Please Follow Up With: Dr. Mcleod When: 2 weeks Please Follow Up With: Shirley Hill CNP When: 1-2 weeks Please Follow Up With: Lito Loco MD Please Follow Up With: Wound Center When: 1-2 weeks Proposed Discharge Date: 01/02/20
--- NOTE | 2019-12-27 21:28 | PCM.DC.SUM ---
Discharge Date and Diagnosis - Problem List Patient Problems: Active and Suspected Problems (Last Reviewed 12/27/19 @ 11:28 by LUCIANO De La Torre) Debility (Acute) Venous stasis dermatitis (Acute) Date of Admission: 12/19/19 Date of Discharge: 01/02/20 - Primary Discharge Diagnosis Acute Problems: Active Problems (Last Reviewed 12/27/19 @ 11:28 by LUCIANO De La Torre) Debility (Acute) Venous stasis dermatitis (Acute) - Secondary Discharge Diagnosis Chronic Problems: Chronic Problems (Last Reviewed 12/27/19 @ 11:28 by LUCIANO De La Torre) CKD (chronic kidney disease), stage III (Chronic) Morbid obesity (Chronic) Chronic acquired lymphedema (Chronic) Diastolic CHF (Chronic) Lymphedema (Chronic) Diabetes mellitus (Chronic) Hypomagnesemia (Chronic) Hypokalemia (Chronic) Chronic kidney disease (Chronic) Chronic diastolic (congestive) heart failure (Chronic) Hypertension (Chronic) Body mass index (BMI) 40.0-44.9, adult (Chronic) Stage 3 severe COPD by GOLD classification (Chronic) Respiratory failure, chronic (Chronic) Obesity (Chronic) HERNÁN (obstructive sleep apnea) (Chronic) Ulcer of left lower extremity with fat layer exposed (Chronic) Lymphedema of both lower extremities (Chronic) Ulcer of left foot (Chronic) Cardiac murmur (Chronic) Stage 2 chronic kidney disease (Chronic) Essential hypertension (Chronic) Anemia (Chronic) Gout (Chronic) Type 2 diabetes mellitus (Chronic) Iron deficiency anemia (Chronic) Hyperlipidemia (Chronic) Hospital Course and Treatment Imaging Results: 12/27/19 10:48 Diet: Cardiac: Calorie-Controlled Food consistency:: Regular Liquid Consistency:: Regular/Thin Is pt able to select menu?: Yes How many daily calories?: 2200 calorie Clinical Impression(s) from Imaging Studies Chest X-Ray 12/27/19 08:07 IMPRESSION: Worsening interstitial edema with development of bilateral pleural effusions since the previous study. Follow-up recommended to ensure resolution Electronically Signed: Thanh Quiñones MD at 10:00 EDT , Service support , Labs (Last 48 Hours) 12/26/19 12/26/19 12/27/19 05:58 11:00 05:05 WBC 6.2 RBC 2.55 L Hgb 8.0 L Hct 27.6 L MCV 108.2 H MCH 31.4 MCHC 29.0 L RDW Std Deviation 62.8 H RDW Coeff of Inocencio 15.9 H Plt Count 173 MPV 11.9 Immature Gran % (Auto) 1.100 H Neut % (Auto) 70.6 H Lymph % (Auto) 15.6 L [place] % (Auto) 7.9 Eos % (Auto) 4.5 Baso % (Auto) 0.3 Absolute Neuts (auto) 4.4 Absolute Lymphs (auto) 0.97 Nucleated RBC % 0 Sodium Potassium Chloride Carbon Dioxide Anion Gap BUN Creatinine Estim Creat Clear Calc Est GFR (MDRD) Af Amer Est GFR (MDRD) Non-Af BUN/Creatinine Ratio Glucose Calcium POC Glucose 119 H 185 H 12/27/19 12/27/19 05:05 06:08 WBC RBC Hgb Hct MCV MCH MCHC RDW Std Deviation RDW Coeff of Inocencio Plt Count MPV Immature Gran % (Auto) Neut % (Auto) Lymph % (Auto) [place] % (Auto) Eos % (Auto) Baso % (Auto) Absolute Neuts (auto) Absolute Lymphs (auto) Nucleated RBC % Sodium 141 Potassium 5.0 Chloride 111 H Carbon Dioxide 24.0 Anion Gap 6 BUN 78 H Creatinine 2.85 H Estim Creat Clear Calc 24.90 Est GFR (MDRD) Af Amer 28 L Est GFR (MDRD) Non-Af 23 L BUN/Creatinine Ratio 27.4 H Glucose 150 H Calcium 8.6 POC Glucose 163 H Consultations 12/19/19 22:30 Consult: Onc/Wound/personnel representative Routine Comment: Reason for Consult:: Statis dermatitis bilateral lower Operations: None Procedures: None Summary of Care Provided: The patient is a 69 year old Male with below past medical history hospitalized for lymphedema, left lower extremity cellulitis ruled out, admitted to TCU with debility, here for rehabilitation, strengthening, prior to discharge home alone. On TCU, acute on chronic diastolic heart failure noted on Chest X-ray Lasix 40MG BID changed to IV, monitor kidneys closely. Discharge home with [facility] PT/OT/SN/LIFE MANAGER. Patient Problems: Active and Suspected Problems (Last Reviewed 12/27/19 @ 11:28 by Shirley Hill NP-C) Debility (Acute) Venous stasis dermatitis (Acute) - Physical Exam Vitals/I&O's: Vital Signs Temp Pulse Resp BP Pulse Ox 98.0 F 78 18 108/56 L 97 12/27/19 13:34 12/27/19 20:45 12/27/19 20:45 12/27/19 13:34 12/27/19 20:45 Oxygen Flow Rate (L/min) 2 Oxygen Delivery Method Nasal Cannula Weight: 133.583 kg Body Mass Index (BMI) 41.5 Intake and Output for Last 24 Hours 12/25/19 12/26/19 12/27/19 23:59 23:59 23:59 Intake Total 1200 / 1200 960 / 960 840 / 840 Output Total 600 / 600 Balance 1200 / 1200 360 / 360 840 / 840 Laboratory Results 12/27/19 05:05: WBC 6.2, RBC 2.55 L, Hgb 8.0 L, Hct 27.6 L, MCV 108.2 H, MCH 31.4, MCHC 29.0 L, RDW Std Deviation 62.8 H, RDW Coeff of Inocencio 15.9 H, Plt Count 173, MPV 11.9, Immature Gran % (Auto) 1.100 H, Neut % (Auto) 70.6 H, Lymph % (Auto) 15.6 L, [place] % (Auto) 7.9, Eos % (Auto) 4.5, Baso % (Auto) 0.3, Absolute Neuts (auto) 4.4, Absolute Lymphs (auto) 0.97, Nucleated RBC % 0 12/27/19 05:05: Sodium 141, Potassium 5.0, Chloride 111 H, Carbon Dioxide 24.0, Anion Gap 6, BUN 78 H, Creatinine 2.85 H, Estim Creat Clear Calc 24.90, Est GFR (MDRD) Af Amer 28 L, Est GFR (MDRD) Non-Af 23 L, BUN/Creatinine Ratio 27.4 H, Glucose 150 H, Calcium 8.6 12/27/19 06:08: POC Glucose 163 H Current Medications Acetaminophen (Tylenol) 1,000 mg PO Q6H PRN PRN PRN Reason: Pain Score 1-10/10 Albuterol/Ipratropium (Duoneb) 3 ml INHALATION Q6HWA.RT [facility] Last Admin: 12/27/19 19:28 Dose: 3 ml Documented by: Allopurinol (Zyloprim) 100 mg PO DAILYCM [facility] Last Admin: 12/27/19 08:32 Dose: 100 mg Documented by: Ascorbic Acid (Vitamin C) 500 mg PO DAILY [facility] Last Admin: 12/27/19 05:49 Dose: 500 mg Documented by: Atorvastatin Calcium (Lipitor) 20 mg PO QHS [facility] Last Admin: 12/27/19 20:44 Dose: 20 mg Documented by: Bisacodyl (Dulcolax) 10 mg RECTAL DAILY PRN PRN Reason: Constipation Calamine/Phenol (Calmoseptine Ointment) 1 applic TOPICAL 0600,2200 [facility]; Protocol Last Admin: 12/27/19 20:46 Dose: 1 applicatio Documented by: Carvedilol (Coreg) 6.25 mg PO BID [facility] Last Admin: 12/27/19 17:17 Dose: 6.25 mg Documented by: Cholecalciferol (Vitamin D (25mcg)) 5,000 unit PO DAILY [facility] Last Admin: 12/27/19 05:48 Dose: 5,000 unit Documented by: Cyanocobalamin (Vitamin B12) 1,000 mcg PO DAILY [facility] Last Admin: 12/27/19 05:49 Dose: 1,000 mcg Documented by: Ferrous Sulfate (Ferrous Sulfate) 325 mg PO 1245,1745 [facility] Last Admin: 12/27/19 17:17 Dose: 325 mg Documented by: Furosemide (Lasix) 40 mg IV BID@1000,1800 [facility] Last Admin: 12/27/19 18:09 Dose: 40 mg Documented by: Hydrocortisone (Hytone) 1 applic TOPICAL BID PRN PRN; Protocol PRN Reason: RASH/TOPICAL IRRITATION Stop: 12/28/19 17:47 Last Admin: 12/27/19 20:57 Dose: 1 applicatio Documented by: Magnesium Oxide (Mag-Ox 400) 400 mg PO DAILY [facility] Last Admin: 12/27/19 05:49 Dose: 400 mg Documented by: Multi-Ingredient Cream (Eucerin) 1 applic TOPICAL 0600,2200 [facility]; Protocol Last Admin: 12/27/19 20:44 Dose: 1 applicatio Documented by: Multivitamins/Minerals (Multivitamin With Minerals (Bkc)) 1 tablet PO DAILY@0800 [facility] Last Admin: 12/27/19 08:32 Dose: 1 tablet Documented by: Nystatin (Mycostatin Powder) 1 applic TOPICAL TID [facility]; Protocol Last Admin: 12/27/19 20:45 Dose: 1 applicatio Documented by: Potassium Chloride (K-Dur) 20 meq PO DAILY [facility] Last Admin: 12/27/19 05:49 Dose: 20 meq Documented by: Sodium Chloride () 10 - 40 ml IV UD PRN PRN Reason: SALINE FLUSH Last Admin: 12/27/19 18:10 Dose: 10 ml Documented by: Discharge Diet: No Restrictions Discharge Activity: Return to Normal Activity, May Shower, Use Walker Weight Bearing Status: Weight bearing as tolerated Call your doctor if you observe: Fever of 101 or Higher, Inability to urinate, Inability to have a bowel movement, Shortness of breath, Chest pain, Uncontrolled pain Home Medications: Medications to take at Discharge Ascorbic Acid [Vitamin C] 500 mg PO DAILY 03/08/17 Magnesium 500 mg PO DAILY 03/08/17 allopurinol 300 mg tablet 300 mg PO DAILY 08/23/19 cholecalciferol (vitamin D3) 125 mcg (5,000 unit) capsule 125 mcg PO DAILY 08/23/19 cyanocobalamin (vitamin B-12) 1,000 mcg capsule 1,000 mcg PO DAILY 08/24/19 omega-3 fatty acids 1,000 mg capsule 1,000 mg PO DAILY 08/24/19 Multivitamin with Minerals [Multiple Vitamin] 1 tab PO DAILY 10/06/19 Simvastatin 40 mg PO QHS 10/06/19 Carvedilol [Coreg (Beta Lane)] 6.25 mg PO BID #0 11/27/19 Ferrous Sulfate 325 mg PO BID 12/16/19 Potassium Chloride [Klor-Con M10] 20 meq PO DAILY 12/16/19 Nystatin Powder [Mycostatin Powder] 1 applic TOPICAL TID 12/19/19 Acetaminophen [Tylenol] 1,000 mg PO Q6H PRN PRN tablet 12/27/19 Furosemide 20 mg PO BID@1000,1800 #60 tab 12/27/19 Hydrocortisone 2.5% Crm [Hytone] 1 applic TOPICAL BID PRN PRN #1 tube 12/27/19 Menthol/Lanolin/Calamine/Znox [Calmoseptine Ointment] 1 applic TOPICAL 0600,2200 tube 12/27/19 Mineral Oil/Petrolatum,White [Eucerin] 1 applic TOPICAL 0600,2200 jar 12/27/19 Following Prescriptions Were Given to Patient: Furosemide 20 mg PO BID@1000,1800 #60 tab Transmission Status: [id number] Hydrocortisone 2.5% Crm [Hytone] 1 applic TOPICAL BID PRN PRN #1 tube PRN Reason: RASH/TOPICAL IRRITATION Transmission Status: [id number] Primary Care Physician: Han Adrian MD [Primary Care Provider] - Please follow up with your Primary Care Physician in: 1 week. Please Follow Up With: Dr. Mcleod When: 2 weeks Please Follow Up With: Shirley Hill CNP When: 1-2 weeks Please Follow Up With: Lito Loco MD Please Follow Up With: Wound Center When: 1-2 weeks Disposition: Home with Home Health Minutes spent on discharge:: 35 Patient Condition:: Stable Medical Necessity - Tobacco Use Tobacco Use: Cigarettes Meaningful Use Info Meaningful Use Diagnoses (Choose all that apply): None applicable
[2019-12-28] VITALS (7 sets, daily range): BP systolic 107–121; BP diastolic 47–61; PULSE 78–85; RESP 18–20; TEMP 36.6–36.7; O2SAT 91–98
[2019-12-28] MEDS: Cyanocobalamin 500 MCG Tablet 1000 MCG PO (05:27)
[2019-12-28] MEDS: Ascorbic Acid 500 MG Tablet PO (05:27)
[2019-12-28] MEDS: Carvedilol 6.25 MG Tablet PO ×2 (05:27→16:53)
[2019-12-28] MEDS: Magnesium Oxide 400 MG Tablet PO (05:27)
[2019-12-28] MEDS: Menthol/Lanolin/Calamine/Znox 113 GM Tube 1 APPLIC TOPICAL ×2 (05:29→23:05)
[2019-12-28] MEDS: Nystatin Powder 15gm Bottle 1 APPLIC TOPICAL ×3 (05:31→23:06)
[2019-12-28 06:02] LABS: Anion Gap 5 (5-15); BUN 83 mg/dL (7-18); BUN/Creat Ratio 28.5 RATIO (10-20); Calcium,Total 8.5 mg/dL (8.5-10.1); Chloride 112 mmol/L (98-107); Creatinine, Serum 2.91 mg/dL (0.70-1.30); EST Glomerular Filtration Rate 23 mL/min (>60); Est Glom Filt Rate - Afr Amer 28 mL/min (>60); Estimated Creatinine Clearance 24.39 ml/min; Glucose 152 mg/dL (74-106); Potassium 4.9 mmol/L (3.5-5.1); Sodium Level 142 mmol/L (136-145)
[2019-12-28 06:26] LABS: Bedside Glucose 149 mg/dL (70-110)
[2019-12-28] MEDS: Ipratropium/Albuterol Sulfate 3 ML AMPUL.NEB INHALATION ×3 (06:40→18:47)
--- NOTE | 2019-12-28 07:22 | CPS ---
Pt has his BIPAP from home (he had just received it before coming to the hospital so he had not used it yet). R.T. set up BIPAP with O2 bleed-in. mold shifter will work with him on it tonight.
[2019-12-28] MEDS: Multivitamins,Ther W-Minerals Tablet 1 TABLET PO (08:49)
[2019-12-28] MEDS: Allopurinol 100 MG Tablet PO (08:49)
[2019-12-28] MEDS: Hydrocortisone 2.5% Crm 1 APPLIC TOPICAL (08:53)
[2019-12-28] MEDS: Furosemide 40 MG Tablet PO ×2 (09:21→16:53)
[2019-12-28] MEDS: Ferrous Sulfate 325 MG Tablet PO ×2 (12:10→16:53)
--- NOTE | 2019-12-28 15:07 | NURSING ---
pt has been very sleepy all day. falls a sleep when you are talking to him. confused at times. therapy had pt up walking and pt oxygen dropped to 86% on 2l. this nurse turn 02 up to 3l till pt recovered at 94% and then turned down to 2l. pt staying at 94% while resting in bed. leg pumps applied. called respiratory to teach pt about how to use his cpap. citlalli from [facility] came into room and did teaching with pt. cpap applied do to pt falling a sleep. pt is a mouth breather and mask is to small,needs a large. cpap is running with a 5l bleed. reported to rn.
--- NOTE | 2019-12-28 15:29 | CPS ---
Talked to pt about his [employer] BIPAP machine with HUMAN RESOURCES BENEFITS COORDINATOR in the room. explained each piece and where they connect, how high to fill humidifier. Placed pt on machine and explained that he only had one button to push to turn machine on & off. Adjusted mask which is a Medium, pt's jaw drops each time he falls asleep which makes the mask have a leak, was able to titrate O2 to keep Sat >/=89% (Dr Bartno's parameter for this patient). pt needs a Large mask but R.T. was unable to find a Holographic Projection for Architecture logo/info on machine or in BIPAP bag. Pt is resting with BIPAP on so RN will ask him where he got his machine so a large Mask can be obtained.
--- NOTE | 2019-12-28 15:43 | NURSING ---
Aid came to nurse and reported patent removed cpap mask and refused to put back on. This nurse went into pt room and pt had mask off. asked pt why he took it off,pt stated he cant breath and it drys his mouth and brody not putting it back on. explained to pt he is a mouth breather and we will check into get a bigger mask to see if it helps. pt stated thats fine. [place] checked with sleep lab and got a bigger mask and is trying it on pt now. pt resting at this time with cpap on. will continue to monitor.
--- NOTE | 2019-12-28 16:10 | CPS ---
Tod talked with Sleep Lab and was able to obtain a large mask for the patient and also turned up the humidifier temp to try and help with patient's comfort. Explained this to Ramakrishna ESTEVES and stressed to pt the importance of wearing the BIPAP. Sat's on 5lpm on machine is 94%. pt asleep and appears comfortable.
--- NOTE | 2019-12-28 16:10 | NURSING ---
talked to pt sister and up dated her on her brother.
--- NOTE | 2019-12-28 16:22 | CASEMGMT ---
Social Work Spoke with patient's sister about pt discharging home 01/01. Answered questions and concerns. Explained skilled HHC and Palliative is ordered to follow at discharge. Pt reported to having aides hired twice a week to assist with bathing and housekeeping. Pt is SBA for all other ADLs. Sister reports to pt living a more sedentary lifestyle at home. However, pt is having drowsiness, SOB, CHF and kidney failure are exacerbated and O2 is new. Sleep lab is adjusting CPAP and masks. Sister concerned about DC. Explained pt requested to DC but will speak with physician. Spoke with physician whom would like to have patient remain longer. Spoke with patient about recommendations and patient pleasantly agreed. He would like to be stronger and more stable before discharge. Patient does get out of room isolation 01/01, so therapy would continue outside of room. Notified sister and she was very appreciative. Notified [facility] and Palliative. Will continue to follow. Xiomara Young, CRISTIANO LEE
--- NOTE | 2019-12-28 16:44 | NURSING ---
this nurse found pt up in recliner. asked pt how he got there pt stated he got up on his own cause he could not breath with the c pap on. explained to pt that he needs to call us if he needs any thing. pt stated i know brody sorry but i just couldn't breath. talked to pt a while and pt stated he will call if he needs help but he does not want to wear the c pap. reported to rn.
[2019-12-28] MEDS: Metolazone 2.5 MG Tablet PO (16:54)
[2019-12-28] MEDS: Atorvastatin Calcium 20 MG Tablet PO (23:04)
[2019-12-29 05:00] VITALS: BP 117/46; PULSE 86; RESP 24; TEMP 36.8; O2SAT 97
[2019-12-29] MEDS: Magnesium Oxide 400 MG Tablet PO (05:18)
[2019-12-29] MEDS: Cyanocobalamin 500 MCG Tablet 1000 MCG PO (05:18)
[2019-12-29] MEDS: Ascorbic Acid 500 MG Tablet PO (05:18)
[2019-12-29] MEDS: Metolazone 2.5 MG Tablet PO ×2 (05:18→17:18)
[2019-12-29] MEDS: Carvedilol 6.25 MG Tablet PO ×2 (05:18→17:18)
[2019-12-29] MEDS: Menthol/Lanolin/Calamine/Znox 113 GM Tube 1 APPLIC TOPICAL ×2 (05:19→21:41)
[2019-12-29] MEDS: Nystatin Powder 15gm Bottle 1 APPLIC TOPICAL ×3 (05:19→21:41)
[2019-12-29 05:40] LABS: Absolute Lymphocyte Count 1.21 X10^3/uL (0.83-4.51); Absolute Neutrophil Count 5.3 X10^3/uL (2.0-7.7); Basophil# 0.03 X10^3/uL; Basophil% 0.4 % (0-1); Hematocrit 27.3 % (40-54); Hemoglobin 8.1 g/dL (13.0-16.5); Lymphocyte # 1.21 X10^3/ul (4.0); Lymphocyte % 15.1 % (19-41); Mean Corp Hgb Conc 29.7 g/dL (32-36); Mean Corpuscular Hgb 32.1 pg (27.0-32.0); Mean Corpuscular Volume 108.3 fL (80-94); Mean Platelet Vol. 12.6 fl (6.2-12.0); Monocyte# 0.61 X10^3/uL; Monocyte% 7.6 % (0-10); NRBC Flagged by Analyzer 0 % (0-5); Neutrophil # 5.25 X10^3/uL (2.7-7.7); Neutrophil % 65.8 % (47-70); Platelet Count 165 K/mm3 (150-450); RBC Distribution Width CV 15.9 % (11.6-14.6); RBC Distribution Width SD 63.3 fl (35.1-43.9); Red Blood Count 2.52 M/mm3 (4.6-6.2)
[2019-12-29 05:56] LABS: Anion Gap 3 (5-15); BUN 85 mg/dL (7-18); Calcium,Total 8.7 mg/dL (8.5-10.1); Chloride 113 mmol/L (98-107); Creatinine, Serum 2.83 mg/dL (0.70-1.30); EST Glomerular Filtration Rate 24 mL/min (>60); Est Glom Filt Rate - Afr Amer 29 mL/min (>60); Estimated Creatinine Clearance 25.08 ml/min; Glucose 118 mg/dL (74-106); Potassium 5.3 mmol/L (3.5-5.1); Sodium Level 140 mmol/L (136-145)
[2019-12-29 06:15] LABS: Bedside Glucose 124 mg/dL (70-110)
[2019-12-29 07:30] VITALS: PULSE 74; RESP 18; O2SAT 94
[2019-12-29] MEDS: Ipratropium/Albuterol Sulfate 3 ML AMPUL.NEB INHALATION ×2 (07:31→19:38)
[2019-12-29] MEDS: Multivitamins,Ther W-Minerals Tablet 1 TABLET PO (08:24)
[2019-12-29] MEDS: Allopurinol 100 MG Tablet PO (08:24)
[2019-12-29] MEDS: Sodium Polystyrene Sulfonate 15 GM/60 ML UDC 30 GM PO (09:04)
[2019-12-29 10:00] VITALS: O2SAT 95
[2019-12-29] MEDS: Furosemide 40 MG Tablet PO ×2 (10:13→17:18)
[2019-12-29] MEDS: Ferrous Sulfate 325 MG Tablet PO ×2 (13:40→16:16)
[2019-12-29 14:44] VITALS: BP 126/69; PULSE 83; RESP 22; TEMP 36.7; O2SAT 98
--- NOTE | 2019-12-29 15:34 | CHAPLAIN ---
Type of Pastoral Visit ___ Initial Visit _x__ Follow-up Visit ___ On-call Visit ___ General Patient Visit ___ Spiritual Assessment ___ Family Conference ___ Bereavement ___ Rapid Response ___ Code Blue ___ Other (describe below) Pastoral Care Referral From _x__ Patient ___ Family ___ Nurse ___ Physician ___ Control Systems Engineer ___ Splicer Apprentice ___ Other (describe below) Sacrament/Intervention _x__ Active listening ___ Anointing ___ Episcopalian ___ Bereavement ___ Communion ___ Katlyn exploration ___ ___ Life review ___ Prayer ___ Reconciliation ___ Sacrament of Sick _x__ Supportive presence ___ Wedding ___ Other (describe below) Pastoral Comments greeted patient who was up in chair; pt remembered this flash welder; pt welcoming, answers simple questions, but keeps eyes closed most of the time and appears to go to sleep at times; pt welcomes prayer; pt appears to be sleeping but says thank you for coming;
--- NOTE | 2019-12-29 16:49 | RAD_ITS ---
STUDY: X-RAY CHEST REASON FOR EXAM: Male, 69 years old. Shortness of breath. TECHNIQUE: Frontal and lateral views of the chest COMPARISON: 12/27/19 FINDINGS: There are stable bilateral small pleural effusions. There is stable pulmonary vascular congestion. There is no pneumothorax. The heart is stable in size. The visualized osseous structures are within normal limits. RAD/Chest PA and Lateral IMPRESSION: Stable cardiomegaly, pulmonary vascular congestion and bilateral pleural effusions. Electronically Signed: Shun Guzman, at 17:12 EDT Tel , Service support ,
[2019-12-29 19:38] VITALS: PULSE 81; RESP 20
[2019-12-29] MEDS: levoFLOXacin 750 MG Tablet PO (21:41)
[2019-12-29] MEDS: Atorvastatin Calcium 20 MG Tablet PO (21:41)
--- NOTE | 2019-12-29 21:48 | NURSING ---
This nurse into give HS meds. Pt had removed O2. SpO2 noted to be at 74%. 4L via NC was applied. Up to 91%. Pt easy to awaken but very sleepy and A&Ox2. Pt took HS meds with lots of encouragement. Feet were elevated in recliner after lots of encouragement. Pt personal BIPAP machine was applied with a 5L bleed through it. Pt denied further needs and call light was placed beside him. Pt fell right to sleep with mask on and mouth wide open. SpO2 noted at 95%.
--- NOTE | 2019-12-30 00:35 | NURSING ---
Bipap on patient at this with oxygen bleed during this time. Patient educated at this time on the importance of wearing bipap. Pt states, I understand what will happen if I don't wear the bipap. Rn was in the room at the time.
[2019-12-30 05:00] VITALS: BP 136/61; PULSE 88; RESP 18; TEMP 36.6; O2SAT 95
[2019-12-30 06:27] LABS: Anion Gap 5 (5-15); BUN 88 mg/dL (7-18); BUN/Creat Ratio 29.8 RATIO (10-20); Calcium,Total 8.8 mg/dL (8.5-10.1); Chloride 115 mmol/L (98-107); Creatinine, Serum 2.95 mg/dL (0.70-1.30); EST Glomerular Filtration Rate 23 mL/min (>60); Est Glom Filt Rate - Afr Amer 27 mL/min (>60); Estimated Creatinine Clearance 24.06 ml/min; Glucose 113 mg/dL (74-106); Potassium 4.5 mmol/L (3.5-5.1); Sodium Level 144 mmol/L (136-145)
[2019-12-30 06:35] LABS: Bedside Glucose 106 mg/dL (70-110)
[2019-12-30] MEDS: Cyanocobalamin 500 MCG Tablet 1000 MCG PO (06:50)
[2019-12-30] MEDS: Magnesium Oxide 400 MG Tablet PO (06:50)
[2019-12-30] MEDS: Carvedilol 6.25 MG Tablet PO ×2 (06:50→17:31)
[2019-12-30] MEDS: Metolazone 2.5 MG Tablet PO ×2 (06:52→17:31)
[2019-12-30] MEDS: Ascorbic Acid 500 MG Tablet PO (06:52)
[2019-12-30] MEDS: Allopurinol 100 MG Tablet PO (08:22)
[2019-12-30] MEDS: Multivitamins,Ther W-Minerals Tablet 1 TABLET PO (08:22)
[2019-12-30 09:14] VITALS: PULSE 84; RESP 21; O2SAT 95
[2019-12-30 10:00] VITALS: PULSE 64; RESP 20; O2SAT 98
[2019-12-30] MEDS: Furosemide 100 MG/10 ML Vial 80 MG IV ×2 (10:02→18:33)
[2019-12-30 10:06] VITALS: BP 105/45; PULSE 71; RESP 18
[2019-12-30 10:45] LABS: Bedside Glucose 145 mg/dL (70-110)
[2019-12-30] MEDS: Ferrous Sulfate 325 MG Tablet PO ×2 (13:22→17:31)
[2019-12-30] MEDS: Nystatin Powder 15gm Bottle 1 APPLIC TOPICAL ×2 (13:28→20:19)
[2019-12-30 14:38] VITALS: BP 113/48; PULSE 77; RESP 22; TEMP 37.1; O2SAT 93
[2019-12-30] MEDS: 0.9% Saline Lock 10 ML Syringe IV (18:33)
[2019-12-30] MEDS: Ipratropium/Albuterol Sulfate 3 ML AMPUL.NEB INHALATION (18:34)
[2019-12-30 18:35] VITALS: PULSE 88; RESP 18; O2SAT 90
[2019-12-30] MEDS: Atorvastatin Calcium 20 MG Tablet PO (20:15)
[2019-12-30] MEDS: Menthol/Lanolin/Calamine/Znox 113 GM Tube 1 APPLIC TOPICAL (20:19)
--- NOTE | 2019-12-30 23:33 | PCA ---
pt refused to do any pm care and charge his clothes.Let my nurse know
[2019-12-31] VITALS (7 sets, daily range): BP systolic 95–143; BP diastolic 50–59; PULSE 79–88; RESP 18–162; TEMP 36.4–36.6; O2SAT 88–100
[2019-12-31] MEDS: Carvedilol 6.25 MG Tablet PO ×2 (06:07→17:03)
[2019-12-31] MEDS: Metolazone 2.5 MG Tablet PO ×2 (06:07→17:02)
[2019-12-31 06:08] LABS: Anion Gap 5 (5-15); BUN 88 mg/dL (7-18); BUN/Creat Ratio 27.5 RATIO (10-20); Calcium,Total 8.6 mg/dL (8.5-10.1); Chloride 113 mmol/L (98-107); EST Glomerular Filtration Rate 21 mL/min (>60); Est Glom Filt Rate - Afr Amer 25 mL/min (>60); Estimated Creatinine Clearance 22.18 ml/min; Glucose 120 mg/dL (74-106); Potassium 4.1 mmol/L (3.5-5.1); Sodium Level 142 mmol/L (136-145)
[2019-12-31] MEDS: Ascorbic Acid 500 MG Tablet PO (06:08)
[2019-12-31] MEDS: Cyanocobalamin 500 MCG Tablet 1000 MCG PO (06:08)
[2019-12-31] MEDS: Magnesium Oxide 400 MG Tablet PO (06:08)
[2019-12-31] MEDS: Nystatin Powder 15gm Bottle 1 APPLIC TOPICAL ×3 (06:10→21:46)
[2019-12-31] MEDS: Menthol/Lanolin/Calamine/Znox 113 GM Tube 1 APPLIC TOPICAL ×2 (06:10→21:45)
[2019-12-31 06:31] LABS: Bedside Glucose 124 mg/dL (70-110)
[2019-12-31] MEDS: Ipratropium/Albuterol Sulfate 3 ML AMPUL.NEB INHALATION ×3 (06:45→19:37)
[2019-12-31] MEDS: Allopurinol 100 MG Tablet PO (09:06)
[2019-12-31] MEDS: Multivitamins,Ther W-Minerals Tablet 1 TABLET PO (09:06)
[2019-12-31] MEDS: Furosemide 40 MG/4 ML Vial IV ×2 (09:18→18:16)
[2019-12-31] MEDS: 0.9% Saline Lock 10 ML Syringe IV ×2 (09:18→18:16)
--- NOTE | 2019-12-31 10:28 | NURSING ---
pt stated he updates his family
[2019-12-31] MEDS: Ferrous Sulfate 325 MG Tablet PO ×2 (11:48→17:03)
--- NOTE | 2019-12-31 14:17 | CASEMGMT ---
Social Work Spoke with pt. Pt stated he feels he is ready to DC home. He is comfortable with O2 and CPAP. Spoke with physician whom is agreeable for pt to DC 01/04. Spoke with pt and he is agreeable to DC. [place] [facility] [place] nebulizer and aerosols. No Other DME needs. Notified [facility] for PT/OT/SN/AUTOMOBILE DESIGNER. Notified Palliative. Plan: DC home 01/04 Xiomara Young, NETWORKING TECHNOLOGY INSTRUCTOR CHARGING MACHINE OPERATOR
[2019-12-31] MEDS: levoFLOXacin 750 MG Tablet PO (17:03)
[2019-12-31] MEDS: Atorvastatin Calcium 20 MG Tablet PO (21:45)
--- NOTE | 2020-01-01 00:25 | NURSING ---
BiPap mask placed on patient. 5L bleed of Oxygen. Patient tolerating well. Patient continues to refuse Lymphedema pumps. Attempted x3.
[2020-01-01 05:00] VITALS: BP 119/55; PULSE 86; RESP 18; TEMP 36.7; O2SAT 96
[2020-01-01] MEDS: Metolazone 2.5 MG Tablet PO ×2 (05:46→17:08)
[2020-01-01] MEDS: Carvedilol 6.25 MG Tablet PO ×2 (05:46→17:08)
[2020-01-01] MEDS: Magnesium Oxide 400 MG Tablet PO (05:46)
[2020-01-01] MEDS: Ascorbic Acid 500 MG Tablet PO (05:46)
[2020-01-01] MEDS: Cyanocobalamin 500 MCG Tablet 1000 MCG PO (05:46)
[2020-01-01] MEDS: Menthol/Lanolin/Calamine/Znox 113 GM Tube 1 APPLIC TOPICAL ×2 (05:46→20:36)
[2020-01-01] MEDS: Nystatin Powder 15gm Bottle 1 APPLIC TOPICAL ×3 (05:47→20:38)
[2020-01-01] MEDS: 0.9% Saline Lock 10 ML Syringe IV ×4 (05:51→20:46)
[2020-01-01 06:30] LABS: Bedside Glucose 128 mg/dL (70-110)
[2020-01-01 07:21] LABS: Anion Gap 7 (5-15); BUN 89 mg/dL (7-18); BUN/Creat Ratio 29.9 RATIO (10-20); Calcium,Total 8.6 mg/dL (8.5-10.1); Chloride 110 mmol/L (98-107); Creatinine, Serum 2.98 mg/dL (0.70-1.30); EST Glomerular Filtration Rate 22 mL/min (>60); Est Glom Filt Rate - Afr Amer 27 mL/min (>60); Estimated Creatinine Clearance 23.82 ml/min; Glucose 118 mg/dL (74-106); Potassium 3.8 mmol/L (3.5-5.1); Sodium Level 141 mmol/L (136-145)
[2020-01-01 08:00] VITALS: PULSE 80; RESP 18; O2SAT 98
[2020-01-01] MEDS: Ipratropium/Albuterol Sulfate 3 ML AMPUL.NEB INHALATION ×3 (08:00→19:15)
[2020-01-01] MEDS: Multivitamins,Ther W-Minerals Tablet 1 TABLET PO (08:39)
[2020-01-01] MEDS: Allopurinol 100 MG Tablet PO (08:39)
[2020-01-01] MEDS: Furosemide 40 MG/4 ML Vial IV ×2 (10:59→17:08)
[2020-01-01 11:00] VITALS: BP 107/45; PULSE 82
[2020-01-01] MEDS: Ferrous Sulfate 325 MG Tablet PO ×2 (11:03→17:08)
[2020-01-01 13:50] VITALS: BP 114/55; PULSE 81; RESP 14; RESP 18; TEMP 36.3; O2SAT 98
[2020-01-01 19:15] VITALS: PULSE 73; RESP 18
[2020-01-01 20:20] VITALS: PULSE 86; RESP 18; O2SAT 95
[2020-01-01] MEDS: Atorvastatin Calcium 20 MG Tablet PO (20:33)
--- NOTE | 2020-01-02 02:38 | NURSING ---
Patient put call light asking for this nurse to put on bipap states, ready to get some rest. Resting in recliner with legs elevated and patient put bipap while nurse stood by bipap is on at this time. Call light within reach.
[2020-01-02 05:00] VITALS: BP 120/64; PULSE 83; RESP 18; TEMP 36.7; O2SAT 97
[2020-01-02] MEDS: Metolazone 2.5 MG Tablet PO ×2 (05:14→17:03)
[2020-01-02] MEDS: Nystatin Powder 15gm Bottle 1 APPLIC TOPICAL ×3 (05:14→22:17)
[2020-01-02] MEDS: Ascorbic Acid 500 MG Tablet PO (05:14)
[2020-01-02] MEDS: Magnesium Oxide 400 MG Tablet PO (05:14)
[2020-01-02] MEDS: Carvedilol 6.25 MG Tablet PO ×2 (05:14→17:03)
[2020-01-02] MEDS: Cyanocobalamin 500 MCG Tablet 1000 MCG PO (05:14)
[2020-01-02] MEDS: Menthol/Lanolin/Calamine/Znox 113 GM Tube 1 APPLIC TOPICAL ×2 (05:16→22:12)
[2020-01-02 06:15] LABS: Bedside Glucose 113 mg/dL (70-110)
[2020-01-02 06:44] LABS: Anion Gap 6 (5-15); BUN 88 mg/dL (7-18); BUN/Creat Ratio 30.7 RATIO (10-20); Calcium,Total 8.5 mg/dL (8.5-10.1); Chloride 109 mmol/L (98-107); Creatinine, Serum 2.87 mg/dL (0.70-1.30); EST Glomerular Filtration Rate 23 mL/min (>60); Est Glom Filt Rate - Afr Amer 28 mL/min (>60); Estimated Creatinine Clearance 24.73 ml/min; Glucose 110 mg/dL (74-106); Potassium 3.5 mmol/L (3.5-5.1); Sodium Level 140 mmol/L (136-145)
[2020-01-02] MEDS: Ipratropium/Albuterol Sulfate 3 ML AMPUL.NEB INHALATION ×2 (07:45→18:45)
[2020-01-02 08:25] VITALS: PULSE 83; RESP 18
[2020-01-02] MEDS: Furosemide 40 MG/4 ML Vial IV (09:44)
[2020-01-02] MEDS: Allopurinol 100 MG Tablet PO (09:44)
[2020-01-02] MEDS: Multivitamins,Ther W-Minerals Tablet 1 TABLET PO (09:45)
[2020-01-02] MEDS: 0.9% Saline Lock 10 ML Syringe IV ×2 (10:00→22:17)
[2020-01-02] MEDS: Ferrous Sulfate 325 MG Tablet PO ×2 (12:01→17:02)
[2020-01-02 14:08] VITALS: BP 109/47; PULSE 85; RESP 18; TEMP 36.7; O2SAT 95
--- NOTE | 2020-01-02 16:39 | NURSING ---
This nurse is aware of Vital Signs that were taken today at 1408.
[2020-01-02] MEDS: levoFLOXacin 750 MG Tablet PO (17:02)
[2020-01-02] MEDS: Furosemide 100 MG/10 ML Vial 80 MG IV (17:04)
[2020-01-02 18:45] VITALS: PULSE 73; RESP 16
[2020-01-02] MEDS: Atorvastatin Calcium 20 MG Tablet PO (22:11)
[2020-01-03] VITALS (7 sets, daily range): BP systolic 117–121; BP diastolic 42–55; PULSE 75–83; RESP 18; TEMP 36.8–36.9; O2SAT 94–95
[2020-01-03 05:50] LABS: Absolute Lymphocyte Count 0.82 X10^3/uL (0.83-4.51); Absolute Neutrophil Count 4.9 X10^3/uL (2.0-7.7); Basophil# 0.02 X10^3/uL; Basophil% 0.3 % (0-1); Eosinophil# 0.84 X10^3/uL; Eosinophils% 11.8 % (0-5); Hematocrit 25.6 % (40-54); Hemoglobin 7.7 g/dL (13.0-16.5); Lymphocyte # 0.82 X10^3/ul (4.0); Lymphocyte % 11.5 % (19-41); Mean Corp Hgb Conc 30.1 g/dL (32-36); Mean Corpuscular Hgb 32.2 pg (27.0-32.0); Mean Corpuscular Volume 107.1 fL (80-94); Mean Platelet Vol. 12.9 fl (6.2-12.0); Monocyte# 0.52 X10^3/uL; Monocyte% 7.3 % (0-10); NRBC Flagged by Analyzer 0 % (0-5); Neutrophil # 4.86 X10^3/uL (2.7-7.7); Neutrophil % 68.5 % (47-70); Platelet Count 162 K/mm3 (150-450); RBC Distribution Width CV 15.7 % (11.6-14.6); RBC Distribution Width SD 61.9 fl (35.1-43.9); Red Blood Count 2.39 M/mm3 (4.6-6.2); White Blood Count 7.1 K/mm3 (4.4-11.0)
[2020-01-03] MEDS: Magnesium Oxide 400 MG Tablet PO (06:06)
[2020-01-03] MEDS: Ascorbic Acid 500 MG Tablet PO (06:06)
[2020-01-03] MEDS: Cyanocobalamin 500 MCG Tablet 1000 MCG PO (06:06)
[2020-01-03] MEDS: Metolazone 2.5 MG Tablet PO ×2 (06:06→17:52)
[2020-01-03] MEDS: Nystatin Powder 15gm Bottle 1 APPLIC TOPICAL ×3 (06:07→21:00)
[2020-01-03 06:08] LABS: Anion Gap 6 (5-15); BUN 87 mg/dL (7-18); BUN/Creat Ratio 31.5 RATIO (10-20); Calcium,Total 8.6 mg/dL (8.5-10.1); Chloride 107 mmol/L (98-107); Creatinine, Serum 2.76 mg/dL (0.70-1.30); EST Glomerular Filtration Rate 24 mL/min (>60); Est Glom Filt Rate - Afr Amer 29 mL/min (>60); Estimated Creatinine Clearance 25.71 ml/min; Glucose 105 mg/dL (74-106); Potassium 3.3 mmol/L (3.5-5.1); Sodium Level 142 mmol/L (136-145)
[2020-01-03] MEDS: Menthol/Lanolin/Calamine/Znox 113 GM Tube 1 APPLIC TOPICAL ×2 (06:08→20:59)
[2020-01-03] MEDS: Carvedilol 6.25 MG Tablet PO ×2 (06:11→17:55)
[2020-01-03 06:21] LABS: Bedside Glucose 107 mg/dL (70-110)
[2020-01-03] MEDS: Ipratropium/Albuterol Sulfate 3 ML AMPUL.NEB INHALATION ×3 (08:00→19:28)
[2020-01-03] MEDS: Allopurinol 100 MG Tablet PO (08:52)
[2020-01-03] MEDS: Multivitamins,Ther W-Minerals Tablet 1 TABLET PO (08:52)
--- NOTE | 2020-01-03 09:14 | NURSING ---
legs washed,cream applied. new dressing to left leg and max wraps on.
[2020-01-03] MEDS: Iron Polysaccharide Complex 150 MG CAPSULE PO ×2 (09:37→17:52)
--- NOTE | 2020-01-03 09:40 | NURSING ---
pt resting in recliner with legs up and lymphedema pumps on. pt left them on for 30 mins.
[2020-01-03] MEDS: Furosemide 100 MG/10 ML Vial 80 MG IV ×2 (10:38→18:30)
--- NOTE | 2020-01-03 10:40 | NURSING ---
Pt had showered this am so PHUC wraps were applied by LINN Durbin after shower. states the LLE is still seeping slightly. no open wounds. will monitor. plan is for pt to discharge home 01/05/20.
--- NOTE | 2020-01-03 11:51 | NURSING ---
pt stated he up dates family
--- NOTE | 2020-01-03 14:12 | NURSING ---
pt sleeping in recliner,c pap on with 5l bleed.
[2020-01-03] MEDS: Atorvastatin Calcium 20 MG Tablet PO (20:59)
[2020-01-04] MEDS: Metolazone 2.5 MG Tablet PO (05:23)
[2020-01-04] MEDS: Magnesium Oxide 400 MG Tablet PO (05:23)
[2020-01-04] MEDS: Carvedilol 6.25 MG Tablet PO ×2 (05:23→16:58)
[2020-01-04] MEDS: Cyanocobalamin 500 MCG Tablet 1000 MCG PO (05:23)
[2020-01-04] MEDS: Menthol/Lanolin/Calamine/Znox 113 GM Tube 1 APPLIC TOPICAL ×2 (05:24→21:15)
[2020-01-04] MEDS: Ascorbic Acid 500 MG Tablet PO (05:25)
[2020-01-04] MEDS: 0.9% Saline Lock 10 ML Syringe IV (05:27)
[2020-01-04] MEDS: Nystatin Powder 15gm Bottle 1 APPLIC TOPICAL ×3 (05:27→21:15)
[2020-01-04 05:28] VITALS: BP 138/65; PULSE 87; RESP 18; TEMP 36.9; O2SAT 99
[2020-01-04 06:13] LABS: Anion Gap 6 (5-15); BUN 86 mg/dL (7-18); Calcium,Total 8.5 mg/dL (8.5-10.1); Chloride 107 mmol/L (98-107); Creatinine, Serum 2.69 mg/dL (0.70-1.30); EST Glomerular Filtration Rate 25 mL/min (>60); Est Glom Filt Rate - Afr Amer 30 mL/min (>60); Estimated Creatinine Clearance 26.38 ml/min; Glucose 114 mg/dL (74-106); Potassium 3.1 mmol/L (3.5-5.1); Sodium Level 142 mmol/L (136-145)
[2020-01-04] MEDS: Multivitamins,Ther W-Minerals Tablet 1 TABLET PO (07:44)
[2020-01-04] MEDS: Allopurinol 100 MG Tablet PO (07:44)
[2020-01-04] MEDS: Iron Polysaccharide Complex 150 MG CAPSULE PO ×2 (07:44→16:57)
[2020-01-04 07:50] VITALS: PULSE 80; RESP 19; O2SAT 98
[2020-01-04] MEDS: Ipratropium/Albuterol Sulfate 3 ML AMPUL.NEB INHALATION ×3 (07:50→19:59)
--- NOTE | 2020-01-04 07:50 | CPS ---
Explained to patient how to fill humidifier and filled it 1/2 because patient said he is leaving tomorrow.
[2020-01-04 08:00] LABS: POSITIVE COUNT YES
[2020-01-04 08:30] LABS: Hematocrit 25.3 % (40-54); Hemoglobin 7.8 g/dL (13.0-16.5)
[2020-01-04 09:10] LABS: Bedside Glucose 106 mg/dL (70-110)
[2020-01-04] MEDS: Furosemide 40 MG Tablet PO ×2 (09:27→16:58)
[2020-01-04 11:00] VITALS: PULSE 80; RESP 18; O2SAT 98
[2020-01-04 13:15] VITALS: PULSE 76; RESP 18
[2020-01-04 13:58] VITALS: BP 115/52; PULSE 82; RESP 21; TEMP 36.6; O2SAT 98
--- NOTE | 2020-01-04 15:51 | NURSING ---
legs washed,Lotion and new dressing applied to right leg. max wraps applied.
--- NOTE | 2020-01-04 16:55 | NURSING ---
saline lock d/c by this nurse per rn.
[2020-01-04] MEDS: levoFLOXacin 750 MG Tablet PO (16:58)
[2020-01-04 19:50] VITALS: PULSE 78; RESP 18; O2SAT 98
[2020-01-04] MEDS: Atorvastatin Calcium 20 MG Tablet PO (21:14)
[2020-01-05 03:46] VITALS: PULSE 80; RESP 18
[2020-01-05] MEDS: Magnesium Oxide 400 MG Tablet PO (05:38)
[2020-01-05] MEDS: Carvedilol 6.25 MG Tablet PO (05:38)
[2020-01-05] MEDS: Ascorbic Acid 500 MG Tablet PO (05:38)
[2020-01-05] MEDS: Cyanocobalamin 500 MCG Tablet 1000 MCG PO (05:38)
[2020-01-05] MEDS: Nystatin Powder 15gm Bottle 1 APPLIC TOPICAL (05:40)
[2020-01-05] MEDS: Menthol/Lanolin/Calamine/Znox 113 GM Tube 1 APPLIC TOPICAL (05:40)
[2020-01-05 05:50] VITALS: BP 111/48; PULSE 80; RESP 18; TEMP 36.8; O2SAT 100
[2020-01-05 06:26] LABS: Anion Gap 5 (5-15); BUN 82 mg/dL (7-18); BUN/Creat Ratio 29.4 RATIO (10-20); Calcium,Total 8.7 mg/dL (8.5-10.1); Chloride 107 mmol/L (98-107); Creatinine, Serum 2.79 mg/dL (0.70-1.30); EST Glomerular Filtration Rate 24 mL/min (>60); Est Glom Filt Rate - Afr Amer 29 mL/min (>60); Estimated Creatinine Clearance 25.44 ml/min; Glucose 149 mg/dL (74-106); Potassium 3.6 mmol/L (3.5-5.1); Sodium Level 141 mmol/L (136-145)
[2020-01-05 06:26] LABS: Bedside Glucose 147 mg/dL (70-110)
[2020-01-05 06:40] VITALS: PULSE 80; RESP 18; O2SAT 97
[2020-01-05] MEDS: Ipratropium/Albuterol Sulfate 3 ML AMPUL.NEB INHALATION (06:40)
[2020-01-05] MEDS: Allopurinol 100 MG Tablet PO (08:35)
[2020-01-05] MEDS: Multivitamins,Ther W-Minerals Tablet 1 TABLET PO (08:35)
[2020-01-05] MEDS: Iron Polysaccharide Complex 150 MG CAPSULE PO (08:35)
[2020-01-05 10:00] VITALS: RESP 18; O2SAT 99
[2020-01-05 11:05] VITALS: BP 104/47; PULSE 83; RESP 18; TEMP 37.3; O2SAT 99
== END 2020-01-05 11:00 | disposition home health service (06) | DRG 602 ==
PROVIDERS: Admitting Provider Family Medicine Geriatric Medicine; PCP Family Medicine; Visit Provider Family Medicine Geriatric Medicine
DX: L03.116 Cellulitis of left lower limb (principal); I50.33 Acute on chronic diastolic (congestive) heart failure; I13.0 Hypertensive heart and chronic kidney disease with heart failure and stage 1 through stage 4 chronic kidney disease, or unspecified chronic kidney disease; Z68.41 Body mass index [BMI] 40.0-44.9, adult; E78.5 Hyperlipidemia, unspecified; M10.9 Gout, unspecified; G47.33 Obstructive sleep apnea (adult) (pediatric); E11.40 Type 2 diabetes mellitus with diabetic neuropathy, unspecified; N18.3 Chronic kidney disease, stage 3 (moderate); E11.22 Type 2 diabetes mellitus with diabetic chronic kidney disease; I89.0 Lymphedema, not elsewhere classified; I87.2 Venous insufficiency (chronic) (peripheral); D50.9 Iron deficiency anemia, unspecified; E66.01 Morbid (severe) obesity due to excess calories; F17.210 Nicotine dependence, cigarettes, uncomplicated; E87.6 Hypokalemia; B35.4 Tinea corporis
CPT/HCPCS: 36415; 71046; 80048; 82962; 85014; 85018; 85025; 87635; 92523; 94002; 94640; 94799; 97110; 97116; 97162; 97165; 97530; 97535; 97802; A4216; J1940; U0003

== ENCOUNTER 2020-01-25 14:24 | Inpatient (IN) | payer MEDICARE, OTHER, SELFPAY ==
[2019-12-23 14:51] VITALS: BMI 43.8
[2020-01-25] VITALS (10 sets, daily range): BP systolic 101–118; BP diastolic 45–66; PULSE 89–93; RESP 17–22; TEMP 36.4–36.7; O2SAT 90–100; BMI 56.7; BMI 41.7
--- NOTE | 2020-01-25 14:37 | RAD_ITS ---
STUDY: X-RAY CHEST REASON FOR EXAM: Male, 69 years old. SOB, cellulitis TECHNIQUE: Single AP portable view of the chest. COMPARISON: Comparison is made with prior study dated 12/29/2019. FINDINGS: EKG electrodes are seen. There is evidence of vascular congestion and CHF. Lymph node both costophrenic angles. There is moderate cardiac enlargement. Normal mediastinum and calli. Normal visualized pulmonary arteries. There is atherosclerotic tortuosity of the aortic arch and descending thoracic aorta. Normal visualized thoracic spine. Normal visualized ribs, clavicles, and shoulders. There is no demonstrated abnormality of the visualized soft tissue structures of the upper abdomen. RAD/Chest 1 View (Portable) IMPRESSION: Cardiomegaly and CHF. Blunting of both costophrenic angles. Electronically Signed: Lukasz Akers, at 15:33 EDT , Service support ,
--- NOTE | 2020-01-25 14:38 | ED.VIS.GEN ---
History of Present Illness Chief Complaint: Cellulitis Informant: Patient Onset: Days Context: Gradual Onset Timing: Continuous Current Severity: Moderate Maximum Severity: Moderate Narrative: The patient is a 6-year-old male with medical history significant for congestive heart failure, chronic kidney disease, and rather significant venous stasis the presents to the emergency department with increasing redness and drainage from his left lower extremity. The patient was hospitalized about a month ago for exacerbation of his peripheral edema with skin breakdown concerning for cellulitis. Eventually, cellulitis was ruled out. He was transitioned to the TCU and was diuresed. He states he is doing very well. Over the past 5 days, he has had increasing redness, skin sloughing, and pain in his lower extremity. He was placed on clindamycin and has taken 3-1/2 days. He states he feels like is not working. He does not think he is had fever. He does admit to increasing pain in the area despite his neuropathy. He states he is also had significant more drainage from the area. He states that his weight has decreased and he is been compliant with his diuretic therapy. Prior similar symptoms: Yes Recent Illness/Hospitalization: Yes Past Medical History - Allergies and Home Meds Allergies/Adverse Reactions: Allergies No Known Allergies Allergy (Verified 01/25/20 14:26) Primary Care Physician: Han Adrian MD [Primary Care Provider] - Prior records reviewed: Yes Past Medical History: - - Diabetes, hypertension, CHF, chronic kidney disease Surgical History: tonsillectomy Lives: With Family - Family History Maternal Family History: Family History (Last Reviewed 12/27/19 @ 11:28 by Shirley Hill NP, HVAC OPERATIONS TECHNICIAN-C) Mother Cancer Father Hypertension Family History: Reports: Cancer - Mother with history of ovarian cancer. Paternal Family History: Family History (Last Reviewed 12/27/19 @ 11:28 by Shirley Hill NP, HVAC OPERATIONS TECHNICIAN-C) Mother Cancer Father Hypertension Family History: Reports: Hypertension, - - Head trauma. Review of Systems General: Denies: Chills, Fever, Sweats Eyes: Denies: Visual changes - bilaterally, Diplopia ENT: Denies: Rhinorrhea, Sore throat Cardiovascular: Denies: Chest pain, Palpitations Respiratory: Denies: Dyspnea, Cough, Dyspnea on exertion Gastrointestinal: Denies: Abdominal pain, Nausea, Vomiting, Diarrhea, Melena, Hematochezia Genitourinary: Denies: Dysuria, Hematuria, Frequency Musculoskeletal: Denies: Back pain, Extremity Pain Skin: Denies: Rash, Wounds Neurological: Denies: Headache, Weakness, Numbness Physical Exam Vital Signs/Narrative: Vital Signs Temp Pulse Resp BP Pulse Ox 01/25/20 14:24 98 F 89 20 H 118/58 L 99 Inital Vital Signs reviewed: Yes General: Well nourished, Well developed, No Acute Distress Head: Normocephalic, Atraumatic Eyes: Perrl, EOMI ENT: Moist mucous membranes, No rhinorrhea Neck: Supple, Nontender Cardiovascular: Regular rate, Regular rhythm, No murmurs Respiratory: No distress, CTA bilaterally, Chest nontender Abdomen: Soft, Nontender, Nondistended, Normal bowel sounds Back: Nontender, Normal Inspection Extremities: Tenderness, Edema Skin: Normal color, No rash Neurological: Alert, Oriented x3, Cranial nerves II-XII grossly intact, Normal Strength, Normal Sensation Psychological: Normal affect, Normal Mood Diagnostic/Tx/Re-eval Clinical Impression(s) from Imaging Studies Chest X-Ray 01/25/20 14:37 IMPRESSION: Cardiomegaly and CHF. Blunting of both costophrenic angles. Electronically Signed: Lukasz Oswald, at 15:33 EDT , Service support , Abnormal Lab Results 01/25/20 01/25/20 01/25/20 14:55 14:55 14:55 WBC 7.6 RBC 2.65 L Hgb 8.4 L Hct 27.4 L MCV 103.4 H MCH 31.7 MCHC 30.7 L RDW Std Deviation 63.4 H RDW Coeff of Inocencio 16.6 H Plt Count 107 L MPV 13.1 H Immature Gran % (Auto) 0.400 Neut % (Auto) 70.3 H Lymph % (Auto) 12.2 L [place] % (Auto) 7.9 Eos % (Auto) 8.9 H Baso % (Auto) 0.3 Absolute Neuts (auto) 5.4 Absolute Lymphs (auto) 0.93 Nucleated RBC % 0 PT 16.2 H INR 1.4 Sodium 136 Potassium 5.4 H Chloride 106 Carbon Dioxide 24.0 Anion Gap 6 BUN 103 H* Creatinine 5.53 H Estim Creat Clear Calc 12.83 Est GFR (MDRD) Af Amer 13 L Est GFR (MDRD) Non-Af 11 L BUN/Creatinine Ratio 18.6 Glucose 105 Lactic Acid Calcium 8.8 Total Bilirubin 0.50 AST 15 ALT 13 L Alkaline Phosphatase 93 Total Protein 7.6 Albumin 2.7 L Globulin 4.9 H Albumin/Globulin Ratio 0.6 L 01/25/20 14:55 WBC RBC Hgb Hct MCV MCH MCHC RDW Std Deviation RDW Coeff of Inocencio Plt Count MPV Immature Gran % (Auto) Neut % (Auto) Lymph % (Auto) [place] % (Auto) Eos % (Auto) Baso % (Auto) Absolute Neuts (auto) Absolute Lymphs (auto) Nucleated RBC % PT INR Sodium Potassium Chloride Carbon Dioxide Anion Gap BUN Creatinine Estim Creat Clear Calc Est GFR (MDRD) Af Amer Est GFR (MDRD) Non-Af BUN/Creatinine Ratio Glucose Lactic Acid 0.9 Calcium Total Bilirubin AST ALT Alkaline Phosphatase Total Protein Albumin Globulin Albumin/Globulin Ratio - Rhythm Strip Rhythm Strip: Sinus Rhythm Ectopy: None - Medical Decision Making The patient presents with increasing edema, redness, and drainage from the left leg. There is warmth to the area. There is sloughing of the skin. It is hard to determine if there is a secondary infection to his chronic lymphedema. Metabolic work-up was pursued including sepsis work-up with blood cultures. Chest x-ray is obtained. It does show evidence of CHF. The patient's renal function has significantly worsened since his last hospitalization. I do suspect this may be more related to fluid retention and skin breakdown rather than acute infection, but I do feel it prudent to cover him for both. With his worsening renal function and evidence of CHF, I do feel that he is going to require admission. The patient was discussed with the hospitalist. Impression 1. Left lower extremity cellulitis 2. Acute on chronic kidney injury 3. Decompensated CHF ED Disposition - Plan for ED Patient: Referrals: Han Adrian MD [Primary Care Provider] -
[2020-01-25 15:10] LABS: Absolute Lymphocyte Count 0.93 X10^3/uL (0.83-4.51); Absolute Neutrophil Count 5.4 X10^3/uL (2.0-7.7); Basophil# 0.02 X10^3/uL; Basophil% 0.3 % (0-1); Eosinophil# 0.68 X10^3/uL; Eosinophils% 8.9 % (0-5); Hematocrit 27.4 % (40-54); Hemoglobin 8.4 g/dL (13.0-16.5); Lymphocyte # 0.93 X10^3/ul (4.0); Lymphocyte % 12.2 % (19-41); Mean Corp Hgb Conc 30.7 g/dL (32-36); Mean Corpuscular Hgb 31.7 pg (27.0-32.0); Mean Corpuscular Volume 103.4 fL (80-94); Mean Platelet Vol. 13.1 fl (6.2-12.0); Monocyte% 7.9 % (0-10); NRBC Flagged by Analyzer 0 % (0-5); Neutrophil # 5.35 X10^3/uL (2.7-7.7); Neutrophil % 70.3 % (47-70); Platelet Count 107 K/mm3 (150-450); RBC Distribution Width CV 16.6 % (11.6-14.6); RBC Distribution Width SD 63.4 fl (35.1-43.9); Red Blood Count 2.65 M/mm3 (4.6-6.2); White Blood Count 7.6 K/mm3 (4.4-11.0)
[2020-01-25 15:30] LABS: Lactic Acid 0.9 mmol/L (0.4-1.9)
[2020-01-25 15:45] LABS: ALB/GLOB Ratio 0.6 RATIO (0.9-2.4); AST(SGOT) 15 U/L (15-37); Alanine Aminotransfer ALT/SGPT 13 U/L (16-61); Albumin, Serum 2.7 g/dL (3.2-5.0); Alkaline Phosphatase 93 U/L (45-117); Anion Gap 6 (5-15); BUN 103 mg/dL (7-18); BUN/Creat Ratio 18.6 RATIO (10-20); Calcium,Total 8.8 mg/dL (8.5-10.1); Chloride 106 mmol/L (98-107); Creatinine, Serum 5.53 mg/dL (0.70-1.30); EST Glomerular Filtration Rate 11 mL/min (>60); Est Glom Filt Rate - Afr Amer 13 mL/min (>60); Estimated Creatinine Clearance 12.83 ml/min; Globulin 4.9 g/dL (2.2-4.2); Glucose 105 mg/dL (74-106); Potassium 5.4 mmol/L (3.5-5.1); Protein, Total 7.6 g/dL (6.4-8.2); Sodium Level 136 mmol/L (136-145)
[2020-01-25 15:53] LABS: International Normalized Ratio 1.4; Prothrombin Time (Protime)PT. 16.2 SECONDS (11.7-14.9)
--- NOTE | 2020-01-25 15:55 | EKG12_ITS ---
Test Reason : Blood Pressure : / mmHG Vent. Rate : 089 BPM Atrial Rate : 089 BPM P-R Int : 202 ms QRS Dur : 150 ms QT Int : 428 ms P-R-T Axes : 060 -48 015 degrees QTc Int : 520 ms Normal sinus rhythm Right bundle branch block Left anterior fascicular block Bifascicular block Abnormal ECG Confirmed by RIAN PERRY, REINIER ([id number]), book editor MANUEL VELÁZQUEZ ([id number]) on 01/27/2020 1:10:40 PM Referred By: MALU Confirmed By:REINIER MODI MD
[2020-01-25 16:06] LABS: Bacteria 0 SEEN /hpf (None Seen); Mucous, Urine 0 SEEN /hpf (<or=2+); Red Blood Cells-Urine 0 SEEN /hpf (0-5)
--- NOTE | 2020-01-25 16:08 | NURSING ---
PCU ACUTE ON CHRONIC RENAL INJURY, CHF AMAYA
[2020-01-25 16:15] LABS: Color, Urine Yellow (Yellow); Glucose, Dipstick Normal (Normal); Ketone-Dipstick 5 mg/dl (Negative); Leukocyte Esterase-Dipstick 500 /ul (Negative); Nitrite-Dipstick Negative (Negative); Occult Blood-Urine 10 /ul (Negative); Protein-Dipstick 100 mg/dl (Negative); Urine Bilirubin Dipstick Negative (Negative); Urine Clarity Clear (Clear); Urine Urobilinogen Normal (Normal)
--- NOTE | 2020-01-25 16:26 | PCM.HP.STD ---
<Yajaira Le TECHNICAL IMPLEMENTATION LEAD - Last Filed: 01/25/20 17:09> Problem List (1) Acute respiratory failure Status: Resolved (2) CKD (chronic kidney disease), stage III Status: Chronic (3) Morbid obesity Status: Chronic (4) Chronic acquired lymphedema Status: Chronic (5) Debility Status: Acute (6) Chronic diastolic (congestive) heart failure Status: Chronic (7) Venous stasis dermatitis Status: Acute (8) Nonrheumatic aortic (valve) stenosis Status: Chronic (9) Stage 3 severe COPD by GOLD classification Status: Chronic (10) Respiratory failure, chronic Status: Chronic Qualifiers: Respiratory failure complication: hypoxia Qualified Code(s): J96.11 - Chronic respiratory failure with hypoxia (11) Obesity Status: Chronic (12) HERNÁN (obstructive sleep apnea) Status: Chronic (13) Ulcer of left lower extremity with fat layer exposed Status: Chronic (14) Ulcer of left foot Status: Chronic (15) Ulcer of right lower extremity with fat layer exposed Status: Chronic (16) DEEPTI (acute kidney injury) Status: Acute (17) Cardiac murmur Status: Chronic (18) Essential hypertension Status: Chronic (19) Gout Status: Chronic (20) Type 2 diabetes mellitus Status: Chronic (21) Iron deficiency anemia Status: Chronic (22) Hyperlipidemia Status: Chronic Qualifiers: Hyperlipidemia type: unspecified Qualified Code(s): E78.5 - Hyperlipidemia, unspecified History of Present Illness Date of Admission: 01/25/20 Chief Complaint: Lower extremity worsening appearance. The patient is a 69 year old M who presents the emergency room due to worsening appearance of lower extremities. Patient was recently discharged from transitional care 12/27/2019 due to debility following hospitalization for worsening lymphedema. Cellulitis ruled out at that time. Patient was started on clindamycin 01/21/2020 without improvement. He lives alone and home health nurse referred him to the emergency room for further evaluation due to worsening skin changes lower extremities. Patient reports lower extremities are constantly seeping and occasionally can have a foul smell if dressings are not changed frequently. He denies fever, chills. Denies nausea, vomiting. Denies increase weight gain. Denies other associated symptoms. Patient states his Lasix was recently reduced from 40 mg twice daily to 20 mg twice daily, he is not able to tell me why this change was made. He has a past medical history of aortic valve stenosis, diastolic heart failure, hypertension, hyperlipidemia, COPD with chronic hypoxic respiratory failure, chronic kidney disease stage III, type 2 diabetes mellitus, HERNÁN, chronic anemia, morbid obesity, lymphedema. Past Medical History Past Medical History (Chronic Problems): Chronic Problems (Last Reviewed 12/27/19 @ 11:28 by Shirley Hill TECHNICAL IMPLEMENTATION LEAD, TECHNICAL IMPLEMENTATION LEAD-C) CKD (chronic kidney disease), stage III (Chronic) Morbid obesity (Chronic) Chronic acquired lymphedema (Chronic) Chronic diastolic (congestive) heart failure (Chronic) Nonrheumatic aortic (valve) stenosis (Chronic) Stage 3 severe COPD by GOLD classification (Chronic) Respiratory failure, chronic (Chronic) Obesity (Chronic) HERNÁN (obstructive sleep apnea) (Chronic) Ulcer of left lower extremity with fat layer exposed (Chronic) Ulcer of left foot (Chronic) Ulcer of right lower extremity with fat layer exposed (Chronic) Cardiac murmur (Chronic) Essential hypertension (Chronic) Gout (Chronic) Type 2 diabetes mellitus (Chronic) Iron deficiency anemia (Chronic) Hyperlipidemia (Chronic) Medical History: Medical History (Last Reviewed 12/27/19 @ 11:28 by Shirley Hill TECHNICAL IMPLEMENTATION LEAD, TECHNICAL IMPLEMENTATION LEAD-C) Cardiac murmur (Chronic) R01.1 Essential hypertension (Chronic) I10 Gout (Chronic) M10.9 Type 2 diabetes mellitus (Chronic) E11.9 Iron deficiency anemia (Chronic) D50.9 Hyperlipidemia (Chronic) E78.5 DRUJ (distal radioulnar joint) arthrosis, 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 Diabetic neuropathy E11.40 Hyperuricemia E79.0 Chronic kidney disease (Inactive) N18.9 Hypertension (Inactive) I10 Allergies No Known Allergies Allergy (Verified 01/25/20 14:26) Home Medications: Ambulatory Orders Medication Instructions Recorded Ascorbic Acid [Vitamin C] 500 mg PO DAILY 03/08/17 allopurinol 300 mg tablet 300 mg PO DAILY 08/23/19 cholecalciferol (vitamin D3) 125 125 mcg PO DAILY 08/23/19 mcg (5,000 unit) capsule cyanocobalamin (vitamin B-12) 1,000 mcg PO DAILY 08/24/19 1,000 mcg capsule omega-3 fatty acids 1,000 mg 1,000 mg PO DAILY 08/24/19 capsule Multivitamin with Minerals 1 tab PO DAILY 10/06/19 [Multiple Vitamin] Simvastatin 40 mg PO QHS 10/06/19 Carvedilol [Coreg ([address]eta [address])] 6.25 mg PO BID #0 11/27/19 Ferrous Sulfate 325 mg PO DAILY 12/16/19 Potassium Chloride [Klor-Con M10] 20 meq PO DAILY 12/16/19 Nystatin Powder [Mycostatin Powder] 1 applic TOPICAL TID 12/19/19 Hydrocortisone 2.5% Crm [Hytone] 1 applic TOPICAL BID PRN PRN #1 12/27/19 tube Menthol/Lanolin/Calamine/Znox 1 applic TOPICAL 0600,2200 tube 12/27/19 [Calmoseptine Ointment] Mineral Oil/Petrolatum,White 1 applic TOPICAL 0600,2200 jar 12/27/19 [Eucerin] Clindamycin HCl 300 mg PO 4X/DAY 01/25/20 Furosemide 20 mg PO BID 01/25/20 Magnesium Oxide [Magnesium] 500 mg PO DAILY 01/25/20 Surgical History: Surgical History (Last Reviewed 01/25/20 @ 16:54 by Yajaira Le NP, TECHNICAL IMPLEMENTATION LEAD-C) S/P colonoscopy Z98.890 Status post tonsillectomy Z90.89 Surgical History: tonsillectomy Psychiatric History: No pertinent psych hx Lives: Alone Smoking Status: Former smoker Tobacco Use: Cigars Alcohol: None Drugs: None - *Family History Maternal Family History: Family History (Last Reviewed 01/25/20 @ 16:54 by Yajaira Le NP, TECHNICAL IMPLEMENTATION LEAD-C) Mother Cancer Father Hypertension History Items: Cancer - Mother with history of ovarian cancer. Paternal Family History: Family History (Last Reviewed 01/25/20 @ 16:54 by Yajaira Le NP, TECHNICAL IMPLEMENTATION LEAD-C) Mother Cancer Father Hypertension History Items: Hypertension, - - Head trauma. Review of Systems Constitutional: Denies: Chills, Fever, Weight Change HEENT: Denies: Head Aches, Sinus Congestion, Sinus Drainage Cardiovascular: Denies: Chest Pain, Palpitations Respiratory: Denies: Cough, Shortness of breath at rest, Sputum production Gastrointestinal: Denies: Abdominal Pain, Nausea, Vomiting Genitourinary: Denies: Dysuria Musculoskeletal: Denies: Joint Pain, Joint Tenderness Skin: Reports: - - Chronic bilateral lower extremity skin flaking with redness and seeping. Neurological: Denies: Numbness, Tingling, Focal weakness Psychiatric: Denies: Anxiety, Depression, Homicidal Ideations, Suicidal Ideations Hematologic/ Lymphatic: Denies: Easy Bruising, Easy Bleeding VTE Information - Inpt Only VTE Present on Admission: No VTE Mechan Device Prophylaxis: None VTE Pharm Prophylaxis ordered?: Yes - Physical Exam Vitals/I&O's: Vital Signs Temp Pulse Resp BP Pulse Ox 97.8 F 90 17 112/57 L 98 01/25/20 16:06 01/25/20 16:06 01/25/20 16:06 01/25/20 16:06 01/25/20 16:06 Oxygen Flow Rate (L/min) 2 Oxygen Delivery Method Nasal Cannula Weight: 395 lb Body Mass Index (BMI) 56.7 General: Alert, Oriented x3, Cooperative HEENT: Atraumatic, PERRLA, EOMI, Normocephalic Oral: Dry Mucosa Neck: Supple, No JVD, Negative Carotid Bruits Lungs: Clear to auscultation, Diminished Cardiovascular: Regular rate, Regular Rhythm, Murmur Abdomen: Bowel Sounds Present, Soft, Non Tender, Non-Distended, Obese Extremities: No clubbing, No cyanosis, Edema - Lymphedema bilateral lower extremities Skin: - - Venous stasis dermatitis bilateral lower extremities Musculoskeletal: No Tenderness to Palpation of Joints or Extremities Neurological: Cranial nerves II-XII grossly intact, Neuro grossly intact Psych/Mental Status: Normal Affect, Appropriate Laboratory Results 01/25/20 14:55: WBC 7.6, RBC 2.65 L, Hgb 8.4 L, Hct 27.4 L, MCV 103.4 H, MCH 31.7, MCHC 30.7 L, RDW Std Deviation 63.4 H, RDW Coeff of Inocencio 16.6 H, Plt Count 107 L, MPV 13.1 H, Immature Gran % (Auto) 0.400, Neut % (Auto) 70.3 H, Lymph % (Auto) 12.2 L, Coamo % (Auto) 7.9, Eos % (Auto) 8.9 H, Baso % (Auto) 0.3, Absolute Neuts (auto) 5.4, Absolute Lymphs (auto) 0.93, Nucleated RBC % 0 01/25/20 14:55: PT 16.2 H, INR 1.4 01/25/20 14:55: Sodium 136, Potassium 5.4 H, Chloride 106, Carbon Dioxide 24.0, Anion Gap 6, BUN 103 H*, Creatinine 5.53 H, Estim Creat Clear Calc 12.83, Est GFR (MDRD) Af Amer 13 L, Est GFR (MDRD) Non-Af 11 L, BUN/Creatinine Ratio 18.6, Glucose 105, Calcium 8.8, Total Bilirubin 0.50, AST 15, ALT 13 L, Alkaline Phosphatase 93, Total Protein 7.6, Albumin 2.7 L, Globulin 4.9 H, Albumin/Globulin Ratio 0.6 L 01/25/20 14:55: Lactic Acid 0.9 01/25/20 16:00: Urine Color Pending, Urine Clarity Pending, Urine pH Pending, Ur Specific [place] Pending, Urine Protein Pending, Urine Glucose (UA) Pending, Urine Ketones Pending, Urine Occult Blood Pending, Urine Nitrite Pending, Urine Bilirubin Pending, Urine Urobilinogen Pending, Ur Leukocyte Esterase Pending, Urine RBC Pending, Urine WBC Pending, Ur Squamous Epith Cells Pending, Urine Bacteria Pending, Urine Mucus Pending Current Medications Linezolid (Zyvox 600mg) 600 mg in 300 mls @ 200 mls/hr IV X1 ONE Stop: 01/25/20 17:33 Sodium Chloride () 10 - 40 ml IV UD PRN PRN Reason: SALINE FLUSH Assessment/Plan All Active Problems (Last Reviewed 12/27/19 @ 11:28 by Shirley Hill TECHNICAL IMPLEMENTATION LEAD, TECHNICAL IMPLEMENTATION LEAD-C) Debility (Acute) Venous stasis dermatitis (Acute) DEEPTI (acute kidney injury) (Acute) Acute respiratory failure (Resolved) 1. Bilateral lower extremity venous stasis dermatitis/lymphedema with possible superimposed bacterial infection-recent admission for the same. Cellulitis ruled out at that time. Patient also had lower extremity Dopplers 11/29/2019 which were negative for DVT. Wound RN consult. Elevate legs. Krunal wraps. Patient has been following at wound center. IV antibiotics empirically pending cultures. 2. Acute kidney injury on chronic kidney disease stage IV- follows with Dr. Mcleod, consult nephrology. Hold Lasix. Gentle IV fluids. Trend BMP. 3. Chronic stage III severe COPD with chronic hypoxic respiratory failure-follows with pulmonary medicine. Continue supplement oxygen to maintain O2 at or above 90%. As needed albuterol aerosol. 4. Chronic diastolic CHF-echocardiogram September 2019 demonstrated an EF of 60%, moderate aortic valve stenosis. 5. Aortic valve stenosis-as noted on echo above. 6. Hypertension-continue carvedilol. 7. Hyperlipidemia-continue statin. 8. Type 2 diabetes mellitus with neuropathy-hemoglobin A1c 11/27/19 5.5%. Accu-Cheks with sliding scale insulin. 9. HERNÁN-continue home BiPAP regimen. 10. Chronic anemia/iron deficiency anemia-appears at baseline. Trend CBC. Continue iron supplementation. 11. Morbid obesity-encouraged diet and lifestyle modifications. Nutrition consult. DVT prophylaxis-heparin subcu CODE STATUS: Discussed in length with patient including differences between full code, DNR CCA and DNR CC. Patient elects to remain full code at this time. This patient was seen by LUCIANO Huang under the supervision of Dr. Mcleod. <Della Mcleod - Last Filed: 01/25/20 19:07> History of Present Illness Date of Admission: 01/25/20 I agree with the above and the following is a representation of my independent history and PE. The patient is a 69 year old M who has had a recent admission for LE cellulitis and lymphedema. Infection was r/o at that time and he was d/c to TCU for further care. He was d/c to home on and has been getting home care ever since 2-3 time per week for his wounds. His nurse felt that his legs were looking worse and contacted the physician in charge of managing his home care and clindamycin was initiated on 01/20. Mr. Russell states that he has taken it as prescribed but not noticed any improvement in the appearance of his legs. Today his home health nurse referred him to the [facility] for further evaluation. He states that nothing has improved with his legs. Scr was noted to be markedly higher than in the past pt the pt states that his meds have overall remained the same except for the change of lasix to 40 mg 1x/day to 20 mg BID, but he is unclear why this was changed. He states that he is compliant with his BIPAP at home but doesn't sleep well at baseline. Past Medical History Medical History: Medical History (Last Reviewed 01/25/20 @ 18:[address] 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 Della Mcleod DO) S/P colonoscopy Z98.890 Status post tonsillectomy Z90.89 - *Family History Maternal Family History: Family History (Last Reviewed 01/25/20 @ 16:54 by Yajaira Le NP, TECHNICAL IMPLEMENTATION LEAD-C) Mother Cancer Father Hypertension Paternal Family History: Family History (Last Reviewed 01/25/20 @ 16:54 by Yajaira Le NP, TECHNICAL IMPLEMENTATION LEAD-C) Mother Cancer Father Hypertension Review of Systems Constitutional: Reports: Weight Change. Denies: Anorexia, Chills, Fever, Night Sweats, Malaise, Weakness, Fatigue Eyes: Denies: Blurred vision, Double vision, Drainage, Eyelid Inflammation, Pain, Redness, Vision Change HEENT: Denies: Difficulty Hearing, Difficulty Swallowing, Head Aches, Nasal bleeding, Nasal Congestion, Post Nasal Drip, Sinus Drainage, Sore Throat, Visual Changes Cardiovascular: Reports: Edema - chronic. Denies: Chest Pain, Chest Pressure, Chest Tightness, Heaviness, Light Headedness, Orthopnea, Palpitations, Paroxysmal Noc. Dyspnea, Syncope Respiratory: Denies: Cough, Hemoptysis, Pleuritic Pain, Shortness of Breath, Shortness of breath at rest, Shortness of breath upon exertion, Sputum production, Wheezing Gastrointestinal: Denies: Abdominal Pain, Constipation, Diarrhea, Dyspepsia, Hematemesis, Hematochezia, Nausea, Melena, Vomiting Genitourinary: Reports: - - has been urinating without difficulty. Denies: Dysuria, Frequency, Hematuria, Hesitancy, Incontinence, Nocturia, Retention, Urgency Skin: Reports: Lesions, Wounds. Denies: Dryness, Jaundice, Pruritis, Rash, Skin Changes Neurological: Denies: Balance problems, Blurred vision, Double vision, Change in Speech, Slurred speech, Confusion, Difficulty swallowing, Focal weakness, Incoordination, Numbness, Tingling, Tremor, Seizures Psychiatric: Denies: Anxiety, Depression Endocrine: Denies: Change in Body Habitus, Heat/ Cold Intolerance, Polydipsia Hematologic/ Lymphatic: Denies: Adenopathy, Anemia, Easy Bruising, Easy Bleeding, Petechiae, Purpura - Physical Exam Vitals/I&O's: Vital Signs Temp Pulse Resp BP Pulse Ox 97.6 F L 93 20 H 114/56 L 100 01/25/20 17:28 01/25/20 17:49 01/25/20 17:28 01/25/20 17:28 01/25/20 17:28 Oxygen Flow Rate (L/min) 2 Oxygen Delivery Method Nasal Cannula Weight: 131.995 kg Body Mass Index (BMI) 41.7 Intake and Output for Last 24 Hours 01/23/20 01/24/20 01/25/20 23:59 23:59 23:59 Intake Total 522.5 / 522.5 Balance 522.5 / 522.5 General: Alert, Oriented x3, Cooperative, No apparent distress, Well developed, Well nourished, - - obese older WM, lying in bed, nsg at bedside, very pleasant and talkative HEENT: Atraumatic, PERRLA, EOMI, Normocephalic, EAC Clear Oral: No Gingival or Mucosal Lesions/ Ulcerations, Dry Mucosa, - - mallampati 2 Neck: Supple, No JVD, Negative Carotid Bruits, Negative Hepatojugular Reflux, No Nodes, No Nuchal Rigidity, Trachea Midline Lungs: Clear to auscultation, Normal air movement, No rhonchi, No wheeze, No rales Cardiovascular: Regular rate, Regular Rhythm, Normal S1, Normal S2, Murmur - 3/6 SM that radiates to carotids, No rub noted, No Gallop Abdomen: Bowel Sounds Present, Soft, Non Tender, Non-Distended, Obese Extremities: No clubbing, No cyanosis, Edema - Severe Lymphedema bilateral lower extremities Skin: No rashes, Ulcer/ Wound, - - Venous stasis dermatitis bilateral lower extremities to about the knees on the L, R LE wrapped Musculoskeletal: No Tenderness to Palpation of Joints or Extremities, No Muscle Wasting, Arthritic Changes Lymphatic: No Cervical, Supraclavicular, or Inguinal Adenopathy Neurological: Cranial nerves II-XII grossly intact, Deep Tendon Reflexes 2+/4 and Symmetrical, Neuro grossly intact, Motor Exam 5/5 strength throughout, Sensory exam intact to light touch and pain, Coordination normal Psych/Mental Status: Normal Affect, Appropriate, Alert and oriented to time, place, person, mood and affect Laboratory Results 01/25/20 14:55: WBC 7.6, RBC 2.65 L, Hgb 8.4 L, Hct 27.4 L, MCV 103.4 H, MCH 31.7, MCHC 30.7 L, RDW Std Deviation 63.4 H, RDW Coeff of Inocencio 16.6 H, Plt Count 107 L, MPV 13.1 H, Immature Gran % (Auto) 0.400, Neut % (Auto) 70.3 H, Lymph % (Auto) 12.2 L, [place]amo % (Auto) 7.9, Eos % (Auto) 8.9 H, Baso % (Auto) 0.3, Absolute Neuts (auto) 5.4, Absolute Lymphs (auto) 0.93, Nucleated RBC % 0 01/25/20 14:55: PT 16.2 H, INR 1.4 01/25/20 14:55: Sodium 136, Potassium 5.4 H, Chloride 106, Carbon Dioxide 24.0, Anion Gap 6, BUN 103 H*, Creatinine 5.53 H, Estim Creat Clear Calc 12.83, Est GFR (MDRD) Af Amer 13 L, Est GFR (MDRD) Non-Af 11 L, BUN/Creatinine Ratio 18.6, Glucose 105, Calcium 8.8, Total Bilirubin 0.50, AST 15, ALT 13 L, Alkaline Phosphatase 93, Total Protein 7.6, Albumin 2.7 L, Globulin 4.9 H, Albumin/Globulin Ratio 0.6 L 01/25/20 14:55: Lactic Acid 0.9 01/25/20 16:00: Urine Color Yellow, Urine Clarity Clear, Urine pH 5.0, Ur Specific [place] 1.020, Urine Protein 100 H, Urine Glucose (UA) Normal, Urine Ketones 5 H, Urine Occult Blood 10 H, Urine Nitrite Negative, Urine Bilirubin Negative, Urine Urobilinogen Normal, Ur Leukocyte Esterase 500 H, Urine RBC 0 SEEN, Urine WBC 5-10 SEEN, Ur Squamous Epith Cells 0-5 SEEN, Urine Bacteria 0 SEEN, Urine Mucus 0 SEEN Current Medications Acetaminophen (Tylenol) 650 mg PO Q6H PRN PRN PRN Reason: Pain Score 1-10/Temp > 100.7 F Albuterol Sulfate (Ventolin Aerosols) 2.5 mg INHALATION Q2H PRN PRN PRN Reason: SOB/Wheezing Atorvastatin Calcium (Lipitor) 20 mg PO QHS [facility] Carvedilol (Coreg) 6.25 mg PO BID [facility] Ferrous Sulfate (Ferrous Sulfate) 325 mg PO DAILY@1200 DONNA Heparin Sodium (Porcine) (Heparin Na) 5,000 unit SC Q12 [facility] Sodium Chloride () 1,000 mls @ 75 mls/hr IV .[id number] [facility] Last Infusion: 01/25/20 17:10 Dose: 0 mls/hr Documented by: Cefepime HCl 1 gm/ Sodium (Chloride) 50 mls @ 100 mls/hr IV Q24@2200 [facility] Last Admin: 01/25/20 18:42 Dose: 100 mls/hr Documented by: Vancomycin IV Pharmacy to Dose (1 ea/ Sodium Chloride) 500 mls @ 250 mls/hr IV X1 PRN; Protocol PRN Reason: Rx to Dose Vancomycin HCl 2,000 mg/ (Sodium Chloride) 540 mls @ 250 mls/hr IV X1 ONE Stop: 01/26/20 08:09 Insulin Human Lispro (Humalog Kwikpen (Bkc)) 0 unit SC ACHS [facility]; Protocol Ondansetron HCl (Zofran) 4 mg IV Q8H PRN PRN PRN Reason: NAUSEA/VOMITING Oxycodone HCl (Oxyir) 5 mg PO Q4H PRN PRN PRN Reason: Pain Score 4-10/10 Sodium Chloride () 10 - 40 ml IV UD PRN PRN Reason: SALINE FLUSH Assessment/Plan I agree with the above and the following is a representation of my independent history and PE. ASSESSMENT B LE Chronic Venous Stasis +/- cellulitis DEEPTI on CKD stage 3-4 Hyperkalemia Chronic Hypoxic Respiratory Failure 2/2 COPD -baseline O2 is 2 L n/c with BIPAP at HS AV Stenosis HTN HPL DM-2 HFpEF HERNÁN Chronic Fe Deficient Anemia MO Gout DVT prophylaxis Code status--> Full PLAN -Admit to PCU -will try gentle hydration for DEEPTI -hold lasix -if no better with this would get urine lytes/urine eos and renal US -could be related to low flow state from HFpEF and may need more aggressive diuresis though too -await am lab -avoid nephrotoxins as able -Nephro is consulted and pt states that he knows at some point he may need iHD and is okay with this -hold home K replacement -Vanc and Cefepime for now -wound care -BIPAP at HS -BGT and SSI -reduce dose of allopurinol Inpatient E&M: [id number] Init Hosp L3
[2020-01-25 16:35] LABS: Squamous Epithelial Cells - UA 0-5 SEEN /hpf (0-5); White Blood Cells 5-10 SEEN /hpf (0-5)
[2020-01-25] MEDS: 0.9% Normal Saline 1,000 ML 75 ML IV (17:08)
[2020-01-25] MEDS: Linezolid 600 MG 600 MG/300 ML BAG 200 MG IV (17:09)
[2020-01-25] MEDS: Menthol/Lanolin/Calamine/Znox 113 GM Tube 1 APPLIC TOPICAL (22:49)
[2020-01-25] MEDS: Heparin Injection (Vial) 5,000 UNIT/ML VIAL 5000 UNIT SC (22:51)
[2020-01-25] MEDS: Atorvastatin Calcium 20 MG Tablet PO (22:52)
[2020-01-25 23:06] LABS: Bedside Glucose 149 mg/dL (70-110)
[2020-01-26] VITALS (12 sets, daily range): BP systolic 96–117; BP diastolic 44–59; PULSE 82–90; RESP 16–18; TEMP 36.2–36.6; O2SAT 96–100
[2020-01-26 06:26] LABS: Absolute Lymphocyte Count 0.91 X10^3/uL (0.83-4.51); Absolute Neutrophil Count 5.2 X10^3/uL (2.0-7.7); Eosinophil# 0.53 X10^3/uL; Eosinophils% 7.2 % (0-5); Hematocrit 26.8 % (40-54); Hemoglobin 7.9 g/dL (13.0-16.5); Lymphocyte # 0.91 X10^3/ul (4.0); Lymphocyte % 12.4 % (19-41); Mean Corp Hgb Conc 29.5 g/dL (32-36); Mean Corpuscular Hgb 31.2 pg (27.0-32.0); Mean Corpuscular Volume 105.9 fL (80-94); Monocyte# 0.68 X10^3/uL; Monocyte% 9.3 % (0-10); NRBC Flagged by Analyzer 0 % (0-5); Neutrophil # 5.19 X10^3/uL (2.7-7.7); Neutrophil % 70.6 % (47-70); Platelet Count 100 K/mm3 (150-450); RBC Distribution Width CV 16.3 % (11.6-14.6); RBC Distribution Width SD 63.3 fl (35.1-43.9); Red Blood Count 2.53 M/mm3 (4.6-6.2); White Blood Count 7.4 K/mm3 (4.4-11.0)
[2020-01-26 06:56] LABS: Anion Gap 7 (5-15); BUN 106 mg/dL (7-18); Calcium,Total 8.5 mg/dL (8.5-10.1); Chloride 109 mmol/L (98-107); EST Glomerular Filtration Rate 10 mL/min (>60); Est Glom Filt Rate - Afr Amer 12 mL/min (>60); Estimated Creatinine Clearance 12.03 ml/min; Glucose 125 mg/dL (74-106); Potassium 5.3 mmol/L (3.5-5.1); Sodium Level 137 mmol/L (136-145)
[2020-01-26 07:01] LABS: Bedside Glucose 112 mg/dL (70-110)
--- NOTE | 2020-01-26 09:00 | CON.PCM_ITS ---
Consultation - Renal 01/26/20 PCP/ Referring MD: Requesting physician: [] Primary care physician: Dr. Han Adrian MD Reason for Consultation:: acute on CKD stage 4 - History of Present Illness History of Present Illness: The patient is a 69 year old morbidly obese M with CKD stage 4 baseline creatinine in mid 2's admitted for increased pedal edema with cellulitis. Hospitalized on then sent to TCU . Creatinine 2.79 on discharge from TCU 01/04. He was discharged on lasix 20mg twice a day with visiting nurse. States has not gained weight. Creatinine increased to 5.9 today despite started on iv fluids last night. He denies nausea, vomiting, shortness of breath or chest pain. He manages his own medications at home. He has been using compression hose at home. He has chronic venous stasis BLE. Patient was started on clindamycin 01/21/2020 without improvement. Patient reports lower extremities are constantly seeping with foul smell. He denies fever, chills, no change in appetite. - Allergies Allergies: Allergies No Known Allergies Allergy (Verified 01/25/20 14:26) - Current Medications Current Medications: Current Medications Acetaminophen (Tylenol) 650 mg PO Q6H PRN PRN PRN Reason: Pain Score 1-10/Temp > 100.7 F Albuterol Sulfate (Ventolin Aerosols) 2.5 mg INHALATION Q2H PRN PRN PRN Reason: SOB/Wheezing Atorvastatin Calcium (Lipitor) 20 mg PO QHS [facility] Last Admin: 01/25/20 22:52 Dose: 20 mg Documented by: Calamine/Phenol (Calmoseptine Ointment) 1 applic TOPICAL BID [facility]; Protocol Last Admin: 01/25/20 22:49 Dose: 1 applicatio Documented by: Carvedilol (Coreg) 6.25 mg PO BID [facility] Last Admin: 01/25/20 22:51 Dose: Not Given Documented by: Ferrous Sulfate (Ferrous Sulfate) 325 mg PO DAILY@1200 DONNA Heparin Sodium (Porcine) (Heparin Na) 5,000 unit SC Q12 [facility] Last Admin: 01/25/20 22:51 Dose: 5,000 unit Documented by: Sodium Chloride () 1,000 mls @ 75 mls/hr IV .[id number] [facility] Last Infusion: 01/26/20 05:10 Dose: 0 mls/hr Documented by: Cefepime HCl 1 gm/ Sodium (Chloride) 50 mls @ 100 mls/hr IV Q24@2200 [facility] Last Infusion: 01/25/20 19:25 Dose: Infused Documented by: Vancomycin IV Pharmacy to Dose (1 ea/ Sodium Chloride) 500 mls @ 250 mls/hr IV X1 PRN; Protocol PRN Reason: Rx to Dose Insulin Human Lispro (Humalog Kwikpen (Bkc)) 0 unit SC ACHS [facility]; Protocol Last Admin: 01/25/20 22:51 Dose: Not Given Documented by: Ondansetron HCl (Zofran) 4 mg IV Q8H PRN PRN PRN Reason: NAUSEA/VOMITING Oxycodone HCl (Oxyir) 5 mg PO Q4H PRN PRN PRN Reason: Pain Score 4-10/10 Sodium Chloride () 10 - 40 ml IV UD PRN PRN Reason: SALINE FLUSH - Past Medical History Past Medical History (Chronic Problems): Chronic Problems (Last Reviewed 01/25/20 @ 18:[address] Della Mcleod, DO) CKD (chronic kidney disease), stage III (Chronic) Morbid obesity (Chronic) Chronic acquired lymphedema (Chronic) Chronic diastolic (congestive) heart failure (Chronic) Nonrheumatic aortic (valve) stenosis (Chronic) Stage 3 severe COPD by GOLD classification (Chronic) Respiratory failure, chronic (Chronic) Obesity (Chronic) HERNÁN (obstructive sleep apnea) (Chronic) Ulcer of left lower extremity with fat layer exposed (Chronic) Ulcer of left foot (Chronic) Ulcer of right lower extremity with fat layer exposed (Chronic) Cardiac murmur (Chronic) Essential hypertension (Chronic) Gout (Chronic) Type 2 diabetes mellitus (Chronic) Iron deficiency anemia (Chronic) Hyperlipidemia (Chronic) - Past Surgical History Surgical History: tonsillectomy - Social History Smoking Status: Former smoker Alcohol: None Drugs: None - Family History Maternal Family History: Family History (Last Reviewed 01/25/20 @ 16:54 by Yajaira Le NP, [employer]) Mother Cancer Father Hypertension History Items: Cancer - Mother with history of ovarian cancer. Paternal Family History: Family History (Last Reviewed 01/25/20 @ 16:54 by Yajaira Le NP, [employer]) Mother Cancer Father Hypertension History Items: Hypertension, - - Head trauma. Review of Systems Constitutional: Reports: Weakness - chronic. Denies: Anorexia, Chills, Fever Eyes: Denies: Vision Change HEENT: Denies: Head Aches Cardiovascular: Reports: Edema. Denies: Chest Pain, Syncope Respiratory: Denies: Cough, Shortness of Breath Gastrointestinal: Denies: Abdominal Pain, Nausea, Vomiting Genitourinary: Reports: - - decreased urine output with fluid restriction. Denies: Dysuria, Frequency Musculoskeletal: Reports: - - leg swelling, pedal edema Skin: Reports: Rash, Wounds - BLE chronic Neurological: Denies: Focal weakness Psychiatric: Denies: Anxiety, Depression Hematologic/ Lymphatic: Reports: Anemia - Physical Exam Vitals/I&O's: Vital Signs Temp Pulse Resp BP Pulse Ox 97.5 F L 83 18 113/59 L 96 01/26/20 05:20 01/26/20 07:00 01/26/20 05:20 01/26/20 05:20 01/26/20 07:14 Oxygen Flow Rate (L/min) 2 Oxygen Delivery Method Nasal Cannula Weight: 133.5 kg Body Mass Index (BMI) 41.7 Intake and Output for Last 24 Hours 01/24/20 01/25/20 01/26/20 23:59 23:59 23:59 Intake Total 1015.0 / 1015.0 1048.75 / 1048.75 Output Total 200 / 200 Balance 815.0 / 815.0 1048.75 / 1048.75 General: Alert, Oriented x3, Cooperative, No apparent distress Lungs: Clear to auscultation Cardiovascular: Regular rate, No rub noted Abdomen: Bowel Sounds Present, Soft, Non Tender, Non-Distended, Obese Extremities: Edema Skin: - - cellulitis BLE, wrapped Musculoskeletal: No Muscle Wasting, - - gen weakness Neurological: Cranial nerves II-XII grossly intact Psych/Mental Status: Normal Affect, Appropriate, Alert and oriented to time, place, person, mood and affect Laboratory Results 01/25/20 14:55: WBC 7.6, RBC 2.65 L, Hgb 8.4 L, Hct 27.4 L, MCV 103.4 H, MCH 31.7, MCHC 30.7 L, RDW Std Deviation 63.4 H, RDW Coeff of Inocencio 16.6 H, Plt Count 107 L, MPV 13.1 H, Immature Gran % (Auto) 0.400, Neut % (Auto) 70.3 H, Lymph % (Auto) 12.2 L, [place] % (Auto) 7.9, Eos % (Auto) 8.9 H, Baso % (Auto) 0.3, Absolute Neuts (auto) 5.4, Absolute Lymphs (auto) 0.93, Nucleated RBC % 0 01/25/20 14:55: PT 16.2 H, INR 1.4 01/25/20 14:55: Sodium 136, Potassium 5.4 H, Chloride 106, Carbon Dioxide 24.0, Anion Gap 6, BUN 103 H*, Creatinine 5.53 H, Estim Creat Clear Calc 12.83, Est GFR (MDRD) Af Amer 13 L, Est GFR (MDRD) Non-Af 11 L, BUN/Creatinine Ratio 18.6, Glucose 105, Calcium 8.8, Total Bilirubin 0.50, AST 15, ALT 13 L, Alkaline Phosphatase 93, Total Protein 7.6, Albumin 2.7 L, Globulin 4.9 H, Albumin/Globulin Ratio 0.6 L 01/25/20 14:55: Lactic Acid 0.9 01/25/20 16:00: Urine Color Yellow, Urine Clarity Clear, Urine pH 5.0, Ur Specific [place] 1.020, Urine Protein 100 H, Urine Glucose (UA) Normal, Urine Ketones 5 H, Urine Occult Blood 10 H, Urine Nitrite Negative, Urine Bilirubin Negative, Urine Urobilinogen Normal, Ur Leukocyte Esterase 500 H, Urine RBC 0 SEEN, Urine WBC 5-10 SEEN, Ur Squamous Epith Cells 0-5 SEEN, Urine Bacteria 0 SEEN, Urine Mucus 0 SEEN 01/25/20 22:42: POC Glucose 149 H 01/26/20 06:05: WBC 7.4, RBC 2.53 L, Hgb 7.9 L, Hct 26.8 L, MCV 105.9 H, MCH 31.2, MCHC 29.5 L, RDW Std Deviation 63.3 H, RDW Coeff of Inocencio 16.3 H, Plt Count 100 L, MPV 12.0, Immature Gran % (Auto) 0.500, Neut % (Auto) 70.6 H, Lymph % (Auto) 12.4 L, [place] % (Auto) 9.3, Eos % (Auto) 7.2 H, Baso % (Auto) 0.0, Absolute Neuts (auto) 5.2, Absolute Lymphs (auto) 0.91, Nucleated RBC % 0 01/26/20 06:05: Sodium 137, Potassium 5.3 H, Chloride 109 H, Carbon Dioxide 21.0, Anion Gap 7, BUN 106 H*, Creatinine 5.90 H, Estim Creat Clear Calc 12.03, Est GFR (MDRD) Af Amer 12 L, Est GFR (MDRD) Non-Af 10 L, BUN/Creatinine Ratio 18.0, Glucose 125 H, Calcium 8.5 01/26/20 06:53: POC Glucose 112 H Clinical Impression(s) from Imaging Studies Chest X-Ray 01/25/20 14:37 IMPRESSION: Cardiomegaly and CHF. Blunting of both costophrenic angles. Electronically Signed: Lukasz Akers, at 15:33 EDT , Service support , Current Medications Acetaminophen (Tylenol) 650 mg PO Q6H PRN PRN PRN Reason: Pain Score 1-10/Temp > 100.7 F Albuterol Sulfate (Ventolin Aerosols) 2.5 mg INHALATION Q2H PRN PRN PRN Reason: SOB/Wheezing Atorvastatin Calcium (Lipitor) 20 mg PO QHS [facility] Last Admin: 01/25/20 22:52 Dose: 20 mg Documented by: Calamine/Phenol (Calmoseptine Ointment) 1 applic TOPICAL BID [facility]; Protocol Last Admin: 01/25/20 22:49 Dose: 1 applicatio Documented by: Carvedilol (Coreg) 6.25 mg PO BID [facility] Last Admin: 01/25/20 22:51 Dose: Not Given Documented by: Ferrous Sulfate (Ferrous Sulfate) 325 mg PO DAILY@1200 DONNA Heparin Sodium (Porcine) (Heparin Na) 5,000 unit SC Q12 [facility] Last Admin: 01/25/20 22:51 Dose: 5,000 unit Documented by: Sodium Chloride () 1,000 mls @ 75 mls/hr IV .[id number] [facility] Last Infusion: 01/26/20 05:10 Dose: 0 mls/hr Documented by: Cefepime HCl 1 gm/ Sodium (Chloride) 50 mls @ 100 mls/hr IV Q24@2200 [facility] Last Infusion: 01/25/20 19:25 Dose: Infused Documented by: Vancomycin IV Pharmacy to Dose (1 ea/ Sodium Chloride) 500 mls @ 250 mls/hr IV X1 PRN; Protocol PRN Reason: Rx to Dose Insulin Human Lispro (Humalog Kwikpen (Bkc)) 0 unit SC ACHS DON[facility]; Protocol Last Admin: 01/25/20 22:51 Dose: Not Given Documented by: Ondansetron HCl (Zofran) 4 mg IV Q8H PRN PRN PRN Reason: NAUSEA/VOMITING Oxycodone HCl (Oxyir) 5 mg PO Q4H PRN PRN PRN Reason: Pain Score 4-10/10 Sodium Chloride () 10 - 40 ml IV UD PRN PRN Reason: SALINE FLUSH Assessment/Plan All Active Problems (Last Reviewed 01/25/20 @ 18:[address] Della Mcleod, DO) Debility (Acute) Venous stasis dermatitis (Acute) DEEPTI (acute kidney injury) (Acute) Acute respiratory failure (Resolved) 1. Acute on CKD Stage 4. baseline creatinine 2.79 increased to 5.9 today. Hook to CD for accurate I/O's, r/o urinary retention. Continue with gentle hydration. Check Urine sodium, creatinine. Continue to monitor renal fxn. May need to discuss dialysis if renal fxn does not improve. 2. Hyperkalemia add 2g K diet 3. Morbid obesity 4. Chronic venous stasis, cellulitis. Afebrile. 5. Gen weakness. Discussed [facility] ECF placement. Pt declined in the past but agrees to consider this admission. DW primary service, case mgmt
[2020-01-26] MEDS: Heparin Injection (Vial) 5,000 UNIT/ML VIAL 5000 UNIT SC ×2 (09:51→22:30)
--- NOTE | 2020-01-26 09:51 | PCM.RX.CS ---
Consult Pharmacy has been consulted to manage selected antiobiotic: Vancomycin Type of Consult: New start Suspected Infection: Skin/Soft tissue Prior Doses of Antibiotics Received/Current Regimen: Received 2000mg iv x 1 on 01.26.20 @0600. Labs: Sodium 137 mmol/L (136-145) 01/26/20 06:05 Potassium 5.3 mmol/L (3.5-5.1) H 01/26/20 06:05 Chloride 109 mmol/L (98-107) H 01/26/20 06:05 Carbon Dioxide 21.0 mmol/L (21.0-32.0) 01/26/20 06:05 Anion Gap 7 (5-15) 01/26/20 06:05 BUN 106 mg/dL (7-18) H* 01/26/20 06:05 Creatinine 5.90 mg/dL (0.70-1.30) H 01/26/20 06:05 Est GFR (MDRD) Af Amer 12 mL/min (>60) L 01/26/20 06:05 Est GFR (MDRD) Non-Af 10 mL/min (>60) L 01/26/20 06:05 BUN/Creatinine Ratio 18.0 RATIO (10-20) 01/26/20 06:05 Glucose 125 mg/dL (74-106) H 01/26/20 06:05 Weight used for dosin.5 kg Estimated Creatinine Clearance: ~16ml/min Goal Trough: 10-15 mcg/mL Pharmacy Plan for Drug Dosing: Pharmacy Service will continue to monitor and adjust dosing as required. Follow-Up Labs: Trough Other - random level 01.27.20 @0600
[2020-01-26] MEDS: Menthol/Lanolin/Calamine/Znox 113 GM Tube 1 APPLIC TOPICAL ×2 (09:56→22:30)
[2020-01-26] MEDS: 0.9% Normal Saline 1,000 ML 75 ML IV ×2 (09:57→23:44)
[2020-01-26] MEDS: Carvedilol 6.25 MG Tablet PO ×2 (10:02→22:30)
[2020-01-26] MEDS: oxyCODONE 5 MG Tablet PO (10:15)
--- NOTE | 2020-01-26 10:42 | CASEMGMT ---
Physician notified SW that patient is in agreement with going to a retirement. SW met with patient, introduced self and role at [facility]. SW answered some of his questions. However, he wanted his sister to be present for conversation and she will be in at 1p today. SW left a list of local nursing homes in his room and SW will return around 1p. Mary WELLS MSW
[2020-01-26 11:05] LABS: Urine Sodium 13 mmol/L (Not Establ.)
--- NOTE | 2020-01-26 12:08 | PCM.PROGNOTE ---
<Yajaira Le PULMONARY NURSE PRACTITIONER - Last Filed: 01/26/20 12:17> Subjective: Patient seen and examined. Wound nurse in room changing dressings. Per wound RN, left lower extremity with increase redness and warmth however right lower extremity appears similar to prior discharge from TCU. Patient denies fever, chills. Denies current symptoms or complaints. States he is agreeable to SNF at discharge. - Physical Exam Vitals/I&O's: Vital Signs Temp Pulse Resp BP Pulse Ox 97.2 F L 90 18 96/47 L 100 01/26/20 09:50 01/26/20 11:00 01/26/20 09:50 01/26/20 09:50 01/26/20 09:50 Oxygen Flow Rate (L/min) 2 Oxygen Delivery Method Room Air Weight: 294 lb 5.074 oz Body Mass Index (BMI) 41.7 Intake and Output for Last 24 Hours 01/24/20 01/25/20 01/26/20 23:59 23:59 23:59 Intake Total 1015.0 / 1015.0 1503.75 / 1503.75 Output Total 200 / 200 250 / 250 Balance 815.0 / 815.0 1253.75 / 1253.75 General: Alert, Oriented x3, Cooperative HEENT: Atraumatic, PERRLA, EOMI, Normocephalic Neck: Supple, No JVD, Negative Carotid Bruits Lungs: Clear to auscultation, Diminished Cardiovascular: Regular rate, No murmurs Abdomen: Bowel Sounds Present, Soft, Non Tender, Non-Distended, Obese Extremities: No clubbing, No cyanosis, Edema - Lymphedema bilateral lower extremities Skin: - - Venous stasis dermatitis bilateral lower extremities with worsening redness left lower extremity. Musculoskeletal: No Tenderness to Palpation of Joints or Extremities Neurological: Cranial nerves II-XII grossly intact, Neuro grossly intact Psych/Mental Status: Normal Affect, Appropriate Laboratory Results 01/25/20 14:55: WBC 7.6, RBC 2.65 L, Hgb 8.4 L, Hct 27.4 L, MCV 103.4 H, MCH 31.7, MCHC 30.7 L, RDW Std Deviation 63.4 H, RDW Coeff of Inocencio 16.6 H, Plt Count 107 L, MPV 13.1 H, Immature Gran % (Auto) 0.400, Neut % (Auto) 70.3 H, Lymph % (Auto) 12.2 L, [place] % (Auto) 7.9, Eos % (Auto) 8.9 H, Baso % (Auto) 0.3, Absolute Neuts (auto) 5.4, Absolute Lymphs (auto) 0.93, Nucleated RBC % 0 01/25/20 14:55: PT 16.2 H, INR 1.4 01/25/20 14:55: Sodium 136, Potassium 5.4 H, Chloride 106, Carbon Dioxide 24.0, Anion Gap 6, BUN 103 H*, Creatinine 5.53 H, Estim Creat Clear Calc 12.83, Est GFR (MDRD) Af Amer 13 L, Est GFR (MDRD) Non-Af 11 L, BUN/Creatinine Ratio 18.6, Glucose 105, Calcium 8.8, Total Bilirubin 0.50, AST 15, ALT 13 L, Alkaline Phosphatase 93, Total Protein 7.6, Albumin 2.7 L, Globulin 4.9 H, Albumin/Globulin Ratio 0.6 L 01/25/20 14:55: Lactic Acid 0.9 01/25/20 16:00: Urine Color Yellow, Urine Clarity Clear, Urine pH 5.0, Ur Specific [place] 1.020, Urine Protein 100 H, Urine Glucose (UA) Normal, Urine Ketones 5 H, Urine Occult Blood 10 H, Urine Nitrite Negative, Urine Bilirubin Negative, Urine Urobilinogen Normal, Ur Leukocyte Esterase 500 H, Urine RBC 0 SEEN, Urine WBC 5-10 SEEN, Ur Squamous Epith Cells 0-5 SEEN, Urine Bacteria 0 SEEN, Urine Mucus 0 SEEN 01/25/20 22:42: POC Glucose 149 H 01/26/20 06:05: WBC 7.4, RBC 2.53 L, Hgb 7.9 L, Hct 26.8 L, MCV 105.9 H, MCH 31.2, MCHC 29.5 L, RDW Std Deviation 63.3 H, RDW Coeff of Inocencio 16.3 H, Plt Count 100 L, MPV 12.0, Immature Gran % (Auto) 0.500, Neut % (Auto) 70.6 H, Lymph % (Auto) 12.4 L, [place] % (Auto) 9.3, Eos % (Auto) 7.2 H, Baso % (Auto) 0.0, Absolute Neuts (auto) 5.2, Absolute Lymphs (auto) 0.91, Nucleated RBC % 0 01/26/20 06:05: Sodium 137, Potassium 5.3 H, Chloride 109 H, Carbon Dioxide 21.0, Anion Gap 7, BUN 106 H*, Creatinine 5.90 H, Estim Creat Clear Calc 12.03, Est GFR (MDRD) Af Amer 12 L, Est GFR (MDRD) Non-Af 10 L, BUN/Creatinine Ratio 18.0, Glucose 125 H, Calcium 8.5 01/26/20 06:53: POC Glucose 112 H 01/26/20 09:35: S.aureus Protein A PCR Pending, MRSA (PCR) Pending 01/26/20 10:40: Ur Random Sodium 13 01/26/20 10:40: Urine Creatinine 169.00 01/26/20 10:45: COVID-19 ([facility]) Pending Current Medications Acetaminophen (Tylenol) 650 mg PO Q6H PRN PRN PRN Reason: Pain Score 1-10/Temp > 100.7 F Albuterol Sulfate (Ventolin Aerosols) 2.5 mg INHALATION Q2H PRN PRN PRN Reason: SOB/Wheezing Atorvastatin Calcium (Lipitor) 20 mg PO QHS [facility] Last Admin: 01/25/20 22:52 Dose: 20 mg Documented by: Calamine/Phenol (Calmoseptine Ointment) 1 applic TOPICAL BID [facility]; Protocol Last Admin: 01/26/20 09:56 Dose: 1 applicatio Documented by: Carvedilol (Coreg) 6.25 mg PO BID [facility] Last Admin: 01/26/20 10:02 Dose: 6.25 mg Documented by: Ferrous Sulfate (Ferrous Sulfate) 325 mg PO DAILY@1200 DONNA Heparin Sodium (Porcine) (Heparin Na) 5,000 unit SC Q12 [facility] Last Admin: 01/26/20 09:51 Dose: 5,000 unit Documented by: Sodium Chloride () 1,000 mls @ 75 mls/hr IV .[id number] [facility] Last Admin: 01/26/20 09:57 Dose: 75 mls/hr Documented by: Cefepime HCl 1 gm/ Sodium (Chloride) 50 mls @ 100 mls/hr IV Q24@2200 [facility] Last Infusion: 01/25/20 19:25 Dose: Infused Documented by: Vancomycin IV Pharmacy to Dose (1 ea/ Sodium Chloride) 500 mls @ 250 mls/hr IV PRN PRN; Protocol PRN Reason: Rx to Dose Insulin Human Lispro (Humalog Kwikpen (Bkc)) 0 unit SC [facility]; Protocol Last Admin: 01/26/20 09:40 Dose: Not Given Documented by: Ondansetron HCl (Zofran) 4 mg IV Q8H PRN PRN PRN Reason: NAUSEA/VOMITING Oxycodone HCl (Oxyir) 5 mg PO Q4H PRN PRN PRN Reason: Pain Score 4-10/10 Last Admin: 01/26/20 10:15 Dose: 5 mg Documented by: Sodium Chloride () 10 - 40 ml IV UD PRN PRN Reason: SALINE FLUSH Medical Necessity - Tobacco Use Smoking Status: Former smoker Tobacco Use: Cigars Assessment/Plan All Active Problems (Last Reviewed 01/25/20 @ 18:[address] Della Mcleod, DO) Debility (Acute) Venous stasis dermatitis (Acute) DEEPTI (acute kidney injury) (Acute) Acute respiratory failure (Resolved) 1. Bilateral lower extremity venous stasis dermatitis/lymphedema with possible superimposed bacterial infection-recent admission for the same. Cellulitis ruled out at that time. Patient also had lower extremity Dopplers 11/29/2019 which were negative for DVT. Wound RN consult. Elevate legs. Krunal wraps. Patient has been following at wound center. IV Vanco and IV cefepime pending wound cultures. 2. Acute kidney injury on chronic kidney disease stage IV- follows with Dr. Mcleod, consult nephrology. Hold Lasix. Gentle IV fluids. Urine studies pending. Trend BMP. Nephrology discussed dialysis with patient if renal function does not improve, patient amendable. 3. Chronic stage III severe COPD with chronic hypoxic respiratory failure-follows with pulmonary medicine. Continue supplement oxygen to maintain O2 at or above 90%. As needed albuterol aerosol. 4. Chronic diastolic CHF-echocardiogram September 2019 demonstrated an EF of 60%, moderate aortic valve stenosis. 5. Aortic valve stenosis-as noted on echo above. 6. Hypertension-continue carvedilol. 7. Hyperlipidemia-continue statin. 8. Type 2 diabetes mellitus with neuropathy-hemoglobin A1c 11/27/19 5.5%. Accu-Cheks with sliding scale insulin. 9. HERNÁN-continue home BiPAP regimen. 10. Chronic anemia/iron deficiency anemia-appears at baseline. Trend CBC. Continue iron supplementation. 11. Morbid obesity-encouraged diet and lifestyle modifications. Nutrition consult. DVT prophylaxis-heparin subcu Discharge planning: Anticipate SNF at discharge when medically stable. This patient was seen by LUCIANO Huang under the supervision of Dr. Coffman. <Rudy Coffman F - Last Filed: 01/26/20 19:32> - Physical Exam Vitals/I&O's: Vital Signs Temp Pulse Resp BP Pulse Ox 97.6 F L 85 16 111/44 L 97 01/26/20 15:50 01/26/20 15:50 01/26/20 15:50 01/26/20 15:50 01/26/20 15:50 Oxygen Flow Rate (L/min) 2 Oxygen Delivery Method Nasal Cannula Weight: 294 lb 5.074 oz Body Mass Index (BMI) 41.7 Intake and Output for Last 24 Hours 01/24/20 01/25/20 01/26/20 23:59 23:59 23:59 Intake Total 1015.0 / 1015.0 1653.75 / 1653.75 Output Total 200 / 200 400 / 400 Balance 815.0 / 815.0 1253.75 / 1253.75 Laboratory Results 01/25/20 22:42: POC Glucose 149 H 01/26/20 06:05: WBC 7.4, RBC 2.53 L, Hgb 7.9 L, Hct 26.8 L, MCV 105.9 H, MCH 31.2, MCHC 29.5 L, RDW Std Deviation 63.3 H, RDW Coeff of Inocencio 16.3 H, Plt Count 100 L, MPV 12.0, Immature Gran % (Auto) 0.500, Neut % (Auto) 70.6 H, Lymph % (Auto) 12.4 L, [place] % (Auto) 9.3, Eos % (Auto) 7.2 H, Baso % (Auto) 0.0, Absolute Neuts (auto) 5.2, Absolute Lymphs (auto) 0.91, Nucleated RBC % 0 01/26/20 06:05: Sodium 137, Potassium 5.3 H, Chloride 109 H, Carbon Dioxide 21.0, Anion Gap 7, BUN 106 H*, Creatinine 5.90 H, Estim Creat Clear Calc 12.03, Est GFR (MDRD) Af Amer 12 L, Est GFR (MDRD) Non-Af 10 L, BUN/Creatinine Ratio 18.0, Glucose 125 H, Calcium 8.5 01/26/20 06:53: POC Glucose 112 H 01/26/20 09:35: S.aureus Protein A PCR NEGATIVE, MRSA (PCR) Negative 01/26/20 10:40: Ur Random Sodium 13 01/26/20 10:40: Urine Creatinine 169.00 01/26/20 10:45: COVID-19 ([facility]) Not Detected 01/26/20 12:22: POC Glucose 140 H 01/26/20 16:25: POC Glucose 123 H Current Medications Acetaminophen (Tylenol) 650 mg PO Q6H PRN PRN PRN Reason: Pain Score 1-10/Temp > 100.7 F Albuterol Sulfate (Ventolin Aerosols) 2.5 mg INHALATION Q2H PRN PRN PRN Reason: SOB/Wheezing Atorvastatin Calcium (Lipitor) 20 mg PO QHS [facility] Last Admin: 01/25/20 22:52 Dose: 20 mg Documented by: Calamine/Phenol (Calmoseptine Ointment) 1 applic TOPICAL BID [facility]; Protocol Last Admin: 01/26/20 09:56 Dose: 1 applicatio Documented by: Carvedilol (Coreg) 6.25 mg PO BID [facility] Last Admin: 01/26/20 10:02 Dose: 6.25 mg Documented by: Ferrous Sulfate (Ferrous Sulfate) 325 mg PO DAILY@1200 [facility] Last Admin: 01/26/20 12:24 Dose: 325 mg Documented by: Heparin Sodium (Porcine) (Heparin Na) 5,000 unit SC Q12 [facility] Last Admin: 01/26/20 09:51 Dose: 5,000 unit Documented by: Sodium Chloride () 1,000 mls @ 75 mls/hr IV .[id number] [facility] Last Admin: 01/26/20 09:57 Dose: 75 mls/hr Documented by: Cefepime HCl 1 gm/ Sodium (Chloride) 50 mls @ 100 mls/hr IV Q24@2200 [facility] Last Infusion: 01/25/20 19:25 Dose: Infused Documented by: Vancomycin IV Pharmacy to Dose (1 ea/ Sodium Chloride) 500 mls @ 250 mls/hr IV PRN PRN; Protocol PRN Reason: Rx to Dose Insulin Human Lispro (Humalog Kwikpen (Bkc)) 0 unit SC [facility]; Protocol Last Admin: 01/26/20 16:26 Dose: Not Given Documented by: Ondansetron HCl (Zofran) 4 mg IV Q8H PRN PRN PRN Reason: NAUSEA/VOMITING Oxycodone HCl (Oxyir) 5 mg PO Q4H PRN PRN PRN Reason: Pain Score 4-10/10 Last Admin: 01/26/20 10:15 Dose: 5 mg Documented by: Sodium Chloride () 10 - 40 ml IV UD PRN PRN Reason: SALINE FLUSH Addendum: Dr. Coffman I personally examined the patient and reviewed the chart. I agree with the above. 69-year-old male presenting with DEEPTI on CKD 4 as well as lower extremity venous stasis and possible worsening wound infection. We will continue with IV vancomycin and cefepime and appreciate nephrology's assistance. He may need to be on dialysis at some point we will continue to hold his Lasix and provide gentle IV fluids. Previous wound culture in August with Pseudomonas, Klebsiella, E. coli, Streptococcus G, corynebacterium. Current wound cultures are pending. Inpatient E&M: 79324 Subs Hosp L2
[2020-01-26] MEDS: Ferrous Sulfate 325 MG Tablet PO (12:24)
[2020-01-26 12:30] LABS: Bedside Glucose 140 mg/dL (70-110)
[2020-01-26 13:19] LABS: M R Staph aureus DNA By PCR Negative (Negative); Probe Check PASS; Specimen Processing Control PASS; Staph aureus DNA By PCR NEGATIVE (Negative)
--- NOTE | 2020-01-26 14:02 | CASEMGMT ---
NANO met with patient and his sister. Discussed plan of going to a SNF at least short term and seeing how it goes. Patient's sister asked about [facility]. They wanted to know if he would have a private room. NANO called Mariana at [facility]. She told SW that they had a bad outbreak of COVID and he would not have a private room. NANO told her SW would get back with her. SW let patient and his sister know this information and they decided against [facility]. NANO gave his sister a list of [facility] facilities and a few pamphlets on some of the nursing facilities that SW happened to have per their request. Patient's sister then asked NANO to contact [facility]one[facility]. NANO called [facility] and spoke with Lashaun. They have private rooms and would look at the referral. NANO faxed referral to [facility]. NANO let patient and his sister know [facility] will look over the referral and let SW know. SW also let them know [facility] has private rooms. Mary WELLS TESTING DIRECTOR
--- NOTE | 2020-01-26 15:19 | NURSING ---
wound photo: right lower leg
--- NOTE | 2020-01-26 15:20 | CASEMGMT ---
Benita at [facility] aware that pt will most likely go to SNF at discharge, voices understanding. Miranda PRASAD CM
--- NOTE | 2020-01-26 15:21 | NURSING ---
wound photo: left lower leg
--- NOTE | 2020-01-26 15:21 | CASEMGMT ---
Addendum entered by Mary Nolan 01/26/20 15:35: SW notified patient of below information. Mary QUINONEZ Original Note: SW received a return call from [facility] and they can take patient as long as he does not need dialysis. SW called patient's sister and let her know. SW went to let patient know, but he was on the bedpan. Mary WELLS MSW
--- NOTE | 2020-01-26 15:27 | CASEMGMT ---
Patient has a Healthcare Living Will and a Healthcare Power of Nurse Clinical and they are on file. His sister Gretel is his Healthcare Power of Nurse Clinical. Mary WELLS MSW
[2020-01-26 17:11] LABS: Bedside Glucose 123 mg/dL (70-110)
[2020-01-26] MEDS: Atorvastatin Calcium 20 MG Tablet PO (22:31)
[2020-01-26] MEDS: MELATONIN 3 MG TABLET PO (22:33)
[2020-01-26 22:50] LABS: Bedside Glucose 115 mg/dL (70-110)
[2020-01-27] VITALS (12 sets, daily range): BP systolic 91–99; BP diastolic 42–64; PULSE 84–96; RESP 16–24; TEMP 36.3–36.4; O2SAT 95–100; BMI 42.9
[2020-01-27 06:28] LABS: Hematocrit 27.2 % (40-54); Mean Corp Hgb Conc 29.4 g/dL (32-36); Mean Corpuscular Hgb 31.7 pg (27.0-32.0); Mean Corpuscular Volume 107.9 fL (80-94); Mean Platelet Vol. 13.1 fl (6.2-12.0); POSITIVE COUNT YES; Platelet Count 64 K/mm3 (150-450); RBC Distribution Width CV 16.1 % (11.6-14.6); RBC Distribution Width SD 63.7 fl (35.1-43.9); Red Blood Count 2.52 M/mm3 (4.6-6.2); White Blood Count 7.2 K/mm3 (4.4-11.0)
[2020-01-27 06:37] LABS: Scan Indicated on CBC? Y/N YES- FLAGS NOTED
[2020-01-27 06:52] LABS: Vancomycin, Random Level 17.8 ug/mL (0.0-15.0)
[2020-01-27 06:53] LABS: Albumin, Serum 2.4 g/dL (3.2-5.0); BUN 106 mg/dL (7-18); BUN/Creat Ratio 17.8 RATIO (10-20); Calcium,Total 8.6 mg/dL (8.5-10.1); Chloride 107 mmol/L (98-107); Creatinine, Serum 5.97 mg/dL (0.70-1.30); EST Glomerular Filtration Rate 10 mL/min (>60); Est Glom Filt Rate - Afr Amer 12 mL/min (>60); Estimated Creatinine Clearance 11.89 ml/min; Glucose 117 mg/dL (74-106); Phosphorus 7.2 mg/dL (2.5-4.9); Potassium 5.3 mmol/L (3.5-5.1); Sodium Level 136 mmol/L (136-145)
[2020-01-27 06:56] LABS: Differential Comment SCANNED
[2020-01-27 07:00] LABS: Bedside Glucose 114 mg/dL (70-110)
--- NOTE | 2020-01-27 08:15 | PCM.RX.CS ---
Consult Pharmacy has been consulted to manage selected antiobiotic: Vancomycin Type of Consult: Follow-up Suspected Infection: Skin/Soft tissue Prior Doses of Antibiotics Received/Current Regimen: Received 2gm iv x 1 on 01.26.20. Labs: Sodium 136 mmol/L (136-145) 01/27/20 05:58 Potassium 5.3 mmol/L (3.5-5.1) H 01/27/20 05:58 Chloride 107 mmol/L (98-107) 01/27/20 05:58 Carbon Dioxide 21.0 mmol/L (21.0-32.0) 01/27/20 05:58 Anion Gap 7 (5-15) 01/26/20 06:05 BUN 106 mg/dL (7-18) H* 01/27/20 05:58 Creatinine 5.97 mg/dL (0.70-1.30) H 01/27/20 05:58 Est GFR (MDRD) Af Amer 12 mL/min (>60) L 01/27/20 05:58 Est GFR (MDRD) Non-Af 10 mL/min (>60) L 01/27/20 05:58 BUN/Creatinine Ratio 17.8 RATIO (10-20) 01/27/20 05:58 Glucose 117 mg/dL (74-106) H 01/27/20 05:58 Random Vancomycin 17.8 ug/mL (0.0-15.0) H 01/27/20 05:58 Weight used for dosin kg Estimated Creatinine Clearance: ~14 ml/min Goal Trough: 10-15 mcg/mL Pharmacy Plan for Drug Dosing: Random level this Am was 17.8. Will give 1gm iv x 1 today and repeat random level 0n 01.28.20. Pharmacy Service will continue to monitor and adjust dosing as required. Follow-Up Labs: Trough Other - random level 01.28.20 @0600
--- NOTE | 2020-01-27 09:00 | PCM.PN.REN ---
Subjective: denies shortness of breath at rest, non nausea, vomiting. Appetite good. Urine output poor despite iv fluids. Creatinine unchanged at 5.9 today. Discussed dialysis, access placement. Will need dialysis arrangements made prior to discharge. He agreed to start dialysis and ECF placement. - Physical Exam Vitals/I&O's: Vital Signs Temp Pulse Resp BP Pulse Ox 97.3 F L 91 18 93/49 L 95 01/27/20 03:50 01/27/20 07:00 01/27/20 03:50 01/27/20 03:50 01/27/20 06:34 Oxygen Flow Rate (L/min) 2 Oxygen Delivery Method Nasal Cannula Weight: 136 kg Body Mass Index (BMI) 41.7 Intake and Output for Last 24 Hours 01/25/20 01/26/20 01/27/20 23:59 23:59 23:59 Intake Total 1015.0 / 1015.0 2722.50 / 2922.50 320 / 320 Output Total 200 / 200 400 / 525 200 / 200 Balance 815.0 / 815.0 2322.50 / 2397.50 120 / 120 General: Alert, Oriented x3, Cooperative, No apparent distress Lungs: Clear to auscultation Cardiovascular: Regular rate, No rub noted Abdomen: Bowel Sounds Present, Soft, Non Tender, Non-Distended, Obese Extremities: Edema - chronic Skin: - - cellulitis, BLE max wrapped Musculoskeletal: - - gen weakness chronic Neurological: - - no tremor Psych/Mental Status: Normal Affect, Alert and oriented to time, place, person, mood and affect Laboratory Results 01/26/20 09:35: S.aureus Protein A PCR NEGATIVE, MRSA (PCR) Negative 01/26/20 10:40: Ur Random Sodium 13 01/26/20 10:40: Urine Creatinine 169.00 01/26/20 10:45: COVID-19 (ROMEO) Not Detected 01/26/20 12:22: POC Glucose 140 H 01/26/20 16:25: POC Glucose 123 H 01/26/20 22:35: POC Glucose 115 H 01/27/20 05:58: Sodium 136, Potassium 5.3 H, Chloride 107, Carbon Dioxide 21.0, BUN 106 H*, Creatinine 5.97 H, Estim Creat Clear Calc 11.89, Est GFR (MDRD) Af Amer 12 L, Est GFR (MDRD) Non-Af 10 L, BUN/Creatinine Ratio 17.8, Glucose 117 H, Calcium 8.6, Phosphorus 7.2 H, Albumin 2.4 L 01/27/20 05:58: Random Vancomycin 17.8 H 01/27/20 05:58: WBC 7.2, RBC 2.52 L, Hgb 8.0 L, Hct 27.2 L, MCV 107.9 H, MCH 31.7, MCHC 29.4 L, RDW Std Deviation 63.7 H, RDW Coeff of Inocencio 16.1 H, Plt Count 64 L, MPV 13.1 H, Differential Comment SCANNED 01/27/20 06:38: POC Glucose 114 H Current Medications Acetaminophen (Tylenol) 650 mg PO Q6H PRN PRN PRN Reason: Pain Score 1-10/Temp > 100.7 F Albuterol Sulfate (Ventolin Aerosols) 2.5 mg INHALATION Q2H PRN PRN PRN Reason: SOB/Wheezing Atorvastatin Calcium (Lipitor) 20 mg PO QHS REPLACED BY [facility] Last Admin: 01/26/20 22:31 Dose: 20 mg Documented by: Calamine/Phenol (Calmoseptine Ointment) 1 applic TOPICAL BID REPLACED BY [facility]; Protocol Last Admin: 01/26/20 22:30 Dose: 1 applicatio Documented by: Carvedilol (Coreg) 6.25 mg PO BID REPLACED BY [facility] Last Admin: 01/26/20 22:30 Dose: 6.25 mg Documented by: Ferrous Sulfate (Ferrous Sulfate) 325 mg PO DAILY@1200 REPLACED BY [facility] Last Admin: 01/26/20 12:24 Dose: 325 mg Documented by: Heparin Sodium (Porcine) (Heparin Na) 5,000 unit SC Q12 REPLACED BY [facility] Last Admin: 01/26/20 22:30 Dose: 5,000 unit Documented by: Sodium Chloride () 1,000 mls @ 75 mls/hr IV .[id number] REPLACED BY [facility] Last Infusion: 01/26/20 23:59 Dose: 75 mls/hr Documented by: Cefepime HCl 1 gm/ Sodium (Chloride) 50 mls @ 100 mls/hr IV Q24@2200 REPLACED BY [facility] Last Infusion: 01/26/20 23:20 Dose: Infused Documented by: Vancomycin IV Pharmacy to Dose (1 ea/ Sodium Chloride) 500 mls @ 250 mls/hr IV PRN PRN; Protocol PRN Reason: Rx to Dose Vancomycin HCl (Vancomycin) 1,000 mg in 200 mls @ 200 mls/hr IV X1 ONE Stop: 01/27/20 09:59 Insulin Human Lispro (Humalog Kwikpen (Bkc)) 0 unit SC ACHS REPLACED BY [facility]; Protocol Last Admin: 01/27/20 06:39 Dose: Not Given Documented by: Melatonin (Melatonin) 3 mg PO QHS PRN PRN Reason: INSOMNIA Last Admin: 01/26/20 22:33 Dose: 3 mg Documented by: Ondansetron HCl (Zofran) 4 mg IV Q8H PRN PRN PRN Reason: NAUSEA/VOMITING Oxycodone HCl (Oxyir) 5 mg PO Q4H PRN PRN PRN Reason: Pain Score 4-10/10 Last Admin: 01/26/20 10:15 Dose: 5 mg Documented by: Sodium Chloride () 10 - 40 ml IV UD PRN PRN Reason: SALINE FLUSH Medical Necessity - Tobacco Use Smoking Status: Former smoker Tobacco Use: Cigars Assessment/Plan All Active Problems (Last Reviewed 01/25/20 @ 18:[address] Della Mcleod, DO) Debility (Acute) Venous stasis dermatitis (Acute) DEEPTI (acute kidney injury) (Acute) Acute respiratory failure (Resolved) 1. Acute on CKD Stage 4. baseline creatinine 2.79 increased to 5.9 today. Hook to CD with hematuria, poor urine volume. FENA <1%. Discussed initiating hemodialysis. Will need tunneled dialysis catheter placement. Consult surgery 2. Hyperkalemia add 2g K diet 3. Morbid obesity 4. Chronic venous stasis, cellulitis. Afebrile. 5. Gen weakness. DW primary service, case mgmt
[2020-01-27 09:34] LABS: International Normalized Ratio 1.4; Prothrombin Time (Protime)PT. 16.2 SECONDS (11.7-14.9)
[2020-01-27 09:35] LABS: Partial Thromboplast Time 38.1 Seconds (24.1-36.2)
[2020-01-27] MEDS: Vancomycin IV 1,000 MG/200 ML BAG 200 MG IV (09:47)
[2020-01-27] MEDS: Menthol/Lanolin/Calamine/Znox 113 GM Tube 1 APPLIC TOPICAL ×2 (09:48→22:42)
--- NOTE | 2020-01-27 10:15 | CASEMGMT ---
Per Dr. Mcleod, pt to be set up with OP dialysis at this time. This RN CM to room to discuss with pt at this time. Pt provided with verbal list of in-network OP dialysis centers at this time and pt states [facility] as preference at this time. Referral faxed to [facility] and [facility] at this time and call to [facility] to notify that pt will be going to SNF and to request MWF time for SNF ease of transportation, Gayle voices understanding. This RN CM to follow and will send OR notes, hep b panel, CXR, and 1st treatment notes once obtained. This RN CM answered all pt's questions at this time. SStaten RN CM
--- NOTE | 2020-01-27 11:24 | PCM.PN.HOSP ---
<Bob Lugo - Last Filed: 01/27/20 11:24> Reason for Visit: DEEPTI Subjective: Pt with minimal complaints. Urine output is poor. No SOB. No baseline O2 use, now on 2 lpm however no SOB. No CP. Pt agreeable to dialysis. Vitals/I&O's: Vital Signs Temp Pulse Resp BP Pulse Ox 97.6 F L 88 18 91/64 100 01/27/20 09:45 01/27/20 09:45 01/27/20 09:45 01/27/20 09:45 01/27/20 09:45 Oxygen Flow Rate (L/min) 2 Oxygen Delivery Method Nasal Cannula Weight: 299 lb 13.259 oz Body Mass Index (BMI) 41.7 Intake and Output for Last 24 Hours 01/25/20 01/26/20 01/27/20 23:59 23:59 23:59 Intake Total 1015.0 / 1015.0 2722.50 / 2922.50 1256.25 / 1256.25 Output Total 200 / 200 400 / 525 200 / 200 Balance 815.0 / 815.0 2322.50 / 2397.50 1056.25 / 1056.25 General: Alert, Oriented x3, Cooperative HEENT: Atraumatic, PERRLA, EOMI, Normocephalic Neck: Supple, No JVD, Negative Carotid Bruits Lungs: Clear to auscultation, Diminished Cardiovascular: Regular rate, No murmurs Abdomen: Bowel Sounds Present, Soft, Non Tender Extremities: Capillary Refill Less than 3 Seconds, Edema Skin: No rashes, No breakdown Musculoskeletal: No Tenderness to Palpation of Joints or Extremities Neurological: Cranial nerves II-XII grossly intact Psych/Mental Status: Normal Affect, Appropriate, Alert and oriented to time, place, person, mood and affect Microbiology Past 72 Hours 01/26/20 09:35 Wound - Leg, Left Gram Stain - Final 01/26/20 09:35 Wound - Leg, Left Wound Culture - Preliminary Gram negative debby Laboratory Results 01/26/20 09:35: S.aureus Protein A PCR NEGATIVE, MRSA (PCR) Negative 01/26/20 10:45: COVID-19 ([facility]) Not Detected 01/26/20 12:22: POC Glucose 140 H 01/26/20 16:25: POC Glucose 123 H 01/26/20 22:35: POC Glucose 115 H 01/27/20 05:58: Sodium 136, Potassium 5.3 H, Chloride 107, Carbon Dioxide 21.0, BUN 106 H*, Creatinine 5.97 H, Estim Creat Clear Calc 11.89, Est GFR (MDRD) Af Amer 12 L, Est GFR (MDRD) Non-Af 10 L, BUN/Creatinine Ratio 17.8, Glucose 117 H, Calcium 8.6, Phosphorus 7.2 H, Albumin 2.4 L 01/27/20 05:58: Random Vancomycin 17.8 H 01/27/20 05:58: WBC 7.2, RBC 2.52 L, Hgb 8.0 L, Hct 27.2 L, MCV 107.9 H, MCH 31.7, MCHC 29.4 L, RDW Std Deviation 63.7 H, RDW Coeff of Inocencio 16.1 H, Plt Count 64 L, MPV 13.1 H, Differential Comment SCANNED 01/27/20 05:58: PT 16.2 H, INR 1.4, APTT 38.1 H 01/27/20 06:38: POC Glucose 114 H Current Medications Acetaminophen (Tylenol) 650 mg PO Q6H PRN PRN PRN Reason: Pain Score 1-10/Temp > 100.7 F Albuterol Sulfate (Ventolin Aerosols) 2.5 mg INHALATION Q2H PRN PRN PRN Reason: SOB/Wheezing Atorvastatin Calcium (Lipitor) 20 mg PO QHS [facility] Last Admin: 01/26/20 22:31 Dose: 20 mg Documented by: Calamine/Phenol (Calmoseptine Ointment) 1 applic TOPICAL BID [facility]; Protocol Last Admin: 01/27/20 09:48 Dose: 1 applicatio Documented by: Carvedilol (Coreg) 6.25 mg PO BID [facility] Last Admin: 01/26/20 22:30 Dose: 6.25 mg Documented by: Ferrous Sulfate (Ferrous Sulfate) 325 mg PO DAILY@1200 [facility] Last Admin: 01/26/20 12:24 Dose: 325 mg Documented by: Heparin Sodium (Porcine) (Heparin Na) 5,000 unit SC Q12 [facility] Last Admin: 01/26/20 22:30 Dose: 5,000 unit Documented by: Sodium Chloride () 1,000 mls @ 75 mls/hr IV .[id number] [facility] Last Infusion: 01/27/20 11:20 Dose: 75 mls/hr Documented by: Cefepime HCl 1 gm/ Sodium (Chloride) 50 mls @ 100 mls/hr IV Q24@2200 [facility] Last Infusion: 01/26/20 23:20 Dose: Infused Documented by: Vancomycin IV Pharmacy to Dose (1 ea/ Sodium Chloride) 500 mls @ 250 mls/hr IV PRN PRN; Protocol PRN Reason: Rx to Dose Insulin Human Lispro (Humalog Kwikpen (Bkc)) 0 unit SC ACHS [facility]; Protocol Last Admin: 01/27/20 06:39 Dose: Not Given Documented by: Melatonin (Melatonin) 3 mg PO QHS PRN PRN Reason: INSOMNIA Last Admin: 01/26/20 22:33 Dose: 3 mg Documented by: Ondansetron HCl (Zofran) 4 mg IV Q8H PRN PRN PRN Reason: NAUSEA/VOMITING Oxycodone HCl (Oxyir) 5 mg PO Q4H PRN PRN PRN Reason: Pain Score 4-10/10 Last Admin: 01/26/20 10:15 Dose: 5 mg Documented by: Sodium Chloride () 10 - 40 ml IV UD PRN PRN Reason: SALINE FLUSH STROKE Vital Signs/Narrative: Vital Signs Temp Pulse Resp BP Pulse Ox 01/27/20 09:45 97.6 F L 88 18 91/64 100 Medical Necessity - Tobacco Use Smoking Status: Former smoker Tobacco Use: Cigars Assessment/Plan All Active Problems (Last Reviewed 01/27/20 @ 12:[address] rOville Blackwell MD) Debility (Acute) Venous stasis dermatitis (Acute) DEEPTI (acute kidney injury) (Acute) Acute respiratory failure (Resolved) 1. DEEPTI - Neprhology following. Pt to start dialysis. Gen surgery consulted for access. Output poor. Pt on 2lpm, no SOB. Recent echo with preserved EF. 2. Anemia of chronic disease likely due to above, and hx iron deficiency - will trend. No need for transfusion today. Continue PO iron. 3. Venous stasus dermatitis / BL LE cellulitis- MRSA negative. Hx pseudomonas. Dopplers neg for DVT. Wound care consult. Cx with GNR. Blood cx pending. Vanc/cefepime for now. No fever/leukocytosis. 4. COPD - no exacerbation- contnue current therapy. 5. Hx AV stenosis 6. HLD -statin 7. Uncontrolled DMt2 with neuropathy, nephropathy, morbid obesity - last A1C 5.5, SSI. 8. HERNÁN - on home Bipap DVT ppx: heparin DC planning: SNF. Will need dialysis arranged. This patient was seen by Bob Lugo PA-C under the supervision of Doctor Meghna. <Rudy Coffman F - Last Filed: 01/27/20 14:13> Vitals/I&O's: Vital Signs Temp Pulse Resp BP Pulse Ox 97.6 F L 96 18 91/64 100 01/27/20 09:45 01/27/20 11:00 01/27/20 09:45 01/27/20 09:45 01/27/20 09:45 Oxygen Flow Rate (L/min) 2 Oxygen Delivery Method Nasal Cannula Weight: 299 lb 13.259 oz Body Mass Index (BMI) 41.7 Intake and Output for Last 24 Hours 01/25/20 01/26/20 01/27/20 23:59 23:59 23:59 Intake Total 1015.0 / 1015.0 2722.50 / 2922.50 1376.25 / 1376.25 Output Total 200 / 200 400 / 525 350 / 350 Balance 815.0 / 815.0 2322.50 / 2397.50 1026.25 / 1026.25 Microbiology Past 72 Hours 01/25/20 15:05 Blood Culture (Wb) - Anticubital Right Blood Culture - Preliminary No growth in 48 hours. 01/25/20 14:55 Blood Culture (Wb) - Anticubital Left Blood Culture - Preliminary No growth in 48 hours. 01/26/20 09:35 Wound - Leg, Left Gram Stain - Final 01/26/20 09:35 Wound - Leg, Left Wound Culture - Preliminary Gram negative debby Laboratory Results 01/26/20 16:25: POC Glucose 123 H 01/26/20 22:35: POC Glucose 115 H 01/27/20 05:58: Sodium 136, Potassium 5.3 H, Chloride 107, Carbon Dioxide 21.0, BUN 106 H*, Creatinine 5.97 H, Estim Creat Clear Calc 11.89, Est GFR (MDRD) Af Amer 12 L, Est GFR (MDRD) Non-Af 10 L, BUN/Creatinine Ratio 17.8, Glucose 117 H, Calcium 8.6, Phosphorus 7.2 H, Albumin 2.4 L 01/27/20 05:58: Random Vancomycin 17.8 H 01/27/20 05:58: WBC 7.2, RBC 2.52 L, Hgb 8.0 L, Hct 27.2 L, MCV 107.9 H, MCH 31.7, MCHC 29.4 L, RDW Std Deviation 63.7 H, RDW Coeff of Inocencio 16.1 H, Plt Count 64 L, MPV 13.1 H, Differential Comment SCANNED 01/27/20 05:58: PT 16.2 H, INR 1.4, APTT 38.1 H 01/27/20 06:38: POC Glucose 114 H 01/27/20 11:43: POC Glucose 129 H Current Medications Acetaminophen (Tylenol) 650 mg PO Q6H PRN PRN PRN Reason: Pain Score 1-10/Temp > 100.7 F Albuterol Sulfate (Ventolin Aerosols) 2.5 mg INHALATION Q2H PRN PRN PRN Reason: SOB/Wheezing Atorvastatin Calcium (Lipitor) 20 mg PO QHS [facility] Last Admin: 01/26/20 22:31 Dose: 20 mg Documented by: Calamine/Phenol (Calmoseptine Ointment) 1 applic TOPICAL BID [facility]; Protocol Last Admin: 01/27/20 09:48 Dose: 1 applicatio Documented by: Carvedilol (Coreg) 6.25 mg PO BID [facility] Last Admin: 01/27/20 11:52 Dose: 6.25 mg Documented by: Ferrous Sulfate (Ferrous Sulfate) 325 mg PO DAILY@1200 [facility] Last Admin: 01/27/20 11:52 Dose: 325 mg Documented by: Heparin Sodium (Porcine) (Heparin Na) 5,000 unit SC Q12 [facility] Last Admin: 01/27/20 11:52 Dose: Not Given Documented by: Sodium Chloride () 1,000 mls @ 75 mls/hr IV .[id number] [facility] Last Infusion: 01/27/20 11:20 Dose: 75 mls/hr Documented by: Cefepime HCl 1 gm/ Sodium (Chloride) 50 mls @ 100 mls/hr IV Q24@2200 [facility] Last Infusion: 01/26/20 23:20 Dose: Infused Documented by: Vancomycin IV Pharmacy to Dose (1 ea/ Sodium Chloride) 500 mls @ 250 mls/hr IV PRN PRN; Protocol PRN Reason: Rx to Dose Insulin Human Lispro (Humalog Kwikpen (Bkc)) 0 unit SC [facility]; Protocol Last Admin: 01/27/20 11:44 Dose: Not Given Documented by: Melatonin (Melatonin) 3 mg PO QHS PRN PRN Reason: INSOMNIA Last Admin: 01/26/20 22:33 Dose: 3 mg Documented by: Ondansetron HCl (Zofran) 4 mg IV Q8H PRN PRN PRN Reason: NAUSEA/VOMITING Oxycodone HCl (Oxyir) 5 mg PO Q4H PRN PRN PRN Reason: Pain Score 4-10/10 Last Admin: 01/26/20 10:15 Dose: 5 mg Documented by: Sodium Chloride () 10 - 40 ml IV UD PRN PRN Reason: SALINE FLUSH STROKE Vital Signs/Narrative: Vital Signs Pulse 01/27/20 11:00 96 Addendum: Dr. Coffman I personally examined the patient and reviewed the chart. I agree with the above. 69-year-old male presenting with DEEPTI on CKD 4 as well as lower extremity venous stasis and possible worsening wound infection. We will continue with IV vancomycin and cefepime and appreciate nephrology's assistance. He may need to be on dialysis at some point we will continue to hold his Lasix and provide gentle IV fluids. Previous wound culture in August with Pseudomonas, Klebsiella, E. coli, Streptococcus G, corynebacterium. Current wound cultures are pending. 01/27/2020: Still with poor urine output though he feels little bit better today. Denies any shortness of breath or chest pain and is currently on oxygen. He did agree to have dialysis today therefore surgery was consulted to place a tunneled catheter for dialysis. Discussed the issues with case management about finding him a residential that will also allow him to do dialysis. Wound culture is growing a gram-negative debby therefore we will continue with his current antibiotics. Inpatient E&M: [id number] Subs Hosp L2
--- NOTE | 2020-01-27 11:36 | CASEMGMT ---
Per physician patient is now going to need dialysis. Therefore he will not be able to go to [facility] as they do not have transportation to and from dialysis. SW was asked to meet with patient and his sister at 11a. SW met with patient and his sister. They asked for a new SNF list as patient's sister took it home as well as new pamphlets on [facility] and [facility]. SW answered their questions. They will discuss which SNF and get back to . NANO called [facility] and left a message for Lashaun in admissions to call NANO back. Mary WELLS CLIENT SERVICE ASSOCIATE
[2020-01-27] MEDS: Ferrous Sulfate 325 MG Tablet PO (11:52)
[2020-01-27] MEDS: Carvedilol 6.25 MG Tablet PO ×2 (11:52→22:44)
[2020-01-27 12:10] LABS: Bedside Glucose 129 mg/dL (70-110)
--- NOTE | 2020-01-27 12:36 | CON.PCM_ITS ---
Problem List (1) DEEPTI (acute kidney injury) Status: Acute Reason for Consult Date of Consultation: 01/27/20 History of Present Illness: he patient is a 69 year old morbidly obese M with CKD stage 4 baseline creatinine in mid 2's admitted for increased pedal edema with cellulitis. Hospitalized on then sent to TCU . Creatinine 2.79 on discharge from TCU 01/04. He was discharged on lasix 20mg twice a day with visiting nurse. States has not gained weight. Creatinine increased to 5.9 today despite started on iv fluids last night. He denies nausea, vomiting, shortness of breath or chest pain. He manages his own medications at home. He has been using compression hose at home. He has chronic venous stasis BLE. Patient was started on clindamycin 01/21/2020 without improvement. Patient reports lower extremities are constantly seeping with foul smell. He denies fever, chills, no change in appetite. I have been consulted for placement of a long-term dialysis catheter. Past Medical History Past Medical History (Chronic Problems): Chronic Problems (Last Reviewed 01/25/20 @ 18:[address] Della Mcleod DO) CKD (chronic kidney disease), stage III (Chronic) Morbid obesity (Chronic) Chronic acquired lymphedema (Chronic) Chronic diastolic (congestive) heart failure (Chronic) Nonrheumatic aortic (valve) stenosis (Chronic) Stage 3 severe COPD by GOLD classification (Chronic) Respiratory failure, chronic (Chronic) Obesity (Chronic) HERNÁN (obstructive sleep apnea) (Chronic) Ulcer of left lower extremity with fat layer exposed (Chronic) Ulcer of left foot (Chronic) Ulcer of right lower extremity with fat layer exposed (Chronic) Cardiac murmur (Chronic) Essential hypertension (Chronic) Gout (Chronic) Type 2 diabetes mellitus (Chronic) Iron deficiency anemia (Chronic) Hyperlipidemia (Chronic) Medical History: Medical History (Last Reviewed 01/27/20 @ 12:[address] 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 Diabetic neuropathy E11.40 Hyperuricemia E79.0 Chronic kidney disease (Inactive) N18.9 Hypertension (Inactive) I10 Allergies No Known Allergies Allergy (Verified 01/25/20 14:26) Home Medications: Ambulatory Orders Medication Instructions Recorded Ascorbic Acid [Vitamin C] 500 mg PO DAILY 03/08/17 allopurinol 300 mg tablet 300 mg PO DAILY 08/23/19 cholecalciferol (vitamin D3) 125 125 mcg PO DAILY 08/23/19 mcg (5,000 unit) capsule cyanocobalamin (vitamin B-12) 1,000 mcg PO DAILY 08/24/19 1,000 mcg capsule omega-3 fatty acids 1,000 mg 1,000 mg PO DAILY 08/24/19 capsule Multivitamin with Minerals 1 tab PO DAILY 10/06/19 [Multiple Vitamin] Simvastatin 40 mg PO QHS 10/06/19 Carvedilol [Coreg ([address]eta [address])] 6.25 mg PO BID #0 11/27/19 Ferrous Sulfate 325 mg PO DAILY 12/16/19 Potassium Chloride [Klor-Con M10] 20 meq PO DAILY 12/16/19 Nystatin Powder [Mycostatin Powder] 1 applic TOPICAL TID 12/19/19 Hydrocortisone 2.5% Crm [Hytone] 1 applic TOPICAL BID PRN PRN #1 12/27/19 tube Menthol/Lanolin/Calamine/Znox 1 applic TOPICAL 0600,2200 tube 12/27/19 [Calmoseptine Ointment] Mineral Oil/Petrolatum,White 1 applic TOPICAL 0600,2200 jar 12/27/19 [Eucerin] Clindamycin HCl 300 mg PO 4X/DAY 01/25/20 Furosemide 20 mg PO BID 01/25/20 Magnesium Oxide [Magnesium] 500 mg PO DAILY 01/25/20 Surgical History: Surgical History (Last Reviewed 01/27/20 @ 12:[address] Orville Blackwell MD) S/P colonoscopy Z98.890 Status post tonsillectomy Z90.89 Surgical History: tonsillectomy Psychiatric History: No pertinent psych hx Lives: Alone Smoking Status: Former smoker Tobacco Use: Cigars Alcohol: None Drugs: None - *Family History Maternal Family History: Family History (Last Reviewed 01/25/20 @ 16:54 by Yajaira Le NP, [employer]-C) Mother Cancer Father Hypertension History Items: Cancer - Mother with history of ovarian cancer. Paternal Family History: Family History (Last Reviewed 01/25/20 @ 16:54 by Yajaira Le NP, [employer]C) Mother Cancer Father Hypertension History Items: Hypertension, - - Head trauma. Review of Systems Constitutional: Denies: Chills, Fever, Weight Change Cardiovascular: Denies: Chest Pain, Chest Pressure, Chest Tightness, Palpitations Respiratory: Denies: Cough, Hemoptysis, Shortness of breath at rest, Shortness of breath upon exertion, Wheezing Gastrointestinal: Denies: Abdominal Pain, Constipation, Diarrhea, Hematemesis, Nausea, Melena, Vomiting - Physical Exam Vitals/I&O's: Vital Signs Temp Pulse Resp BP Pulse Ox 97.6 F L 96 18 91/64 100 01/27/20 09:45 01/27/20 11:00 01/27/20 09:45 01/27/20 09:45 01/27/20 09:45 Oxygen Flow Rate (L/min) 2 Oxygen Delivery Method Nasal Cannula Weight: 299 lb 13.259 oz Body Mass Index (BMI) 41.7 Intake and Output for Last 24 Hours 01/25/20 01/26/20 01/27/20 23:59 23:59 23:59 Intake Total 1015.0 / 1015.0 2722.50 / 2922.50 1376.25 / 1376.25 Output Total 200 / 200 400 / 525 350 / 350 Balance 815.0 / 815.0 2322.50 / 2397.50 1026.25 / 1026.25 General: Alert, Oriented x3 Lungs: Clear to auscultation Cardiovascular: Regular rate, Regular Rhythm, No murmurs Abdomen: Bowel Sounds Present, Soft, Non Tender, Non-Distended Microbiology Past 72 Hours 01/25/20 15:05 Blood Culture (Wb) - Anticubital Right Blood Culture - Preliminary No growth in 48 hours. 01/25/20 14:55 Blood Culture (Wb) - Anticubital Left Blood Culture - Preliminary No growth in 48 hours. 01/26/20 09:35 Wound - Leg, Left Gram Stain - Final 01/26/20 09:35 Wound - Leg, Left Wound Culture - Preliminary Gram negative debby Laboratory Results 01/26/20 09:35: S.aureus Protein A PCR NEGATIVE, MRSA (PCR) Negative 01/26/20 10:45: COVID-19 ([place]) Not Detected 01/26/20 16:25: POC Glucose 123 H 01/26/20 22:35: POC Glucose 115 H 01/27/20 05:58: Sodium 136, Potassium 5.3 H, Chloride 107, Carbon Dioxide 21.0, BUN 106 H*, Creatinine 5.97 H, Estim Creat Clear Calc 11.89, Est GFR (MDRD) Af Amer 12 L, Est GFR (MDRD) Non-Af 10 L, BUN/Creatinine Ratio 17.8, Glucose 117 H, Calcium 8.6, Phosphorus 7.2 H, Albumin 2.4 L 01/27/20 05:58: Random Vancomycin 17.8 H 01/27/20 05:58: WBC 7.2, RBC 2.52 L, Hgb 8.0 L, Hct 27.2 L, MCV 107.9 H, MCH 31.7, MCHC 29.4 L, RDW Std Deviation 63.7 H, RDW Coeff of Inocencio 16.1 H, Plt Count 64 L, MPV 13.1 H, Differential Comment SCANNED 01/27/20 05:58: PT 16.2 H, INR 1.4, APTT 38.1 H 01/27/20 06:38: POC Glucose 114 H 01/27/20 11:43: POC Glucose 129 H Current Medications Acetaminophen (Tylenol) 650 mg PO Q6H PRN PRN PRN Reason: Pain Score 1-10/Temp > 100.7 F Albuterol Sulfate (Ventolin Aerosols) 2.5 mg INHALATION Q2H PRN PRN PRN Reason: SOB/Wheezing Atorvastatin Calcium (Lipitor) 20 mg PO QHS [facility] Last Admin: 01/26/20 22:31 Dose: 20 mg Documented by: Calamine/Phenol (Calmoseptine Ointment) 1 applic TOPICAL BID [facility]; Protocol Last Admin: 01/27/20 09:48 Dose: 1 applicatio Documented by: Carvedilol (Coreg) 6.25 mg PO BID [facility] Last Admin: 01/27/20 11:52 Dose: 6.25 mg Documented by: Ferrous Sulfate (Ferrous Sulfate) 325 mg PO DAILY@1200 [facility] Last Admin: 01/27/20 11:52 Dose: 325 mg Documented by: Heparin Sodium (Porcine) (Heparin Na) 5,000 unit SC Q12 [facility] Last Admin: 01/27/20 11:52 Dose: Not Given Documented by: Sodium Chloride () 1,000 mls @ 75 mls/hr IV .[id number] [facility] Last Infusion: 01/27/20 11:20 Dose: 75 mls/hr Documented by: Cefepime HCl 1 gm/ Sodium (Chloride) 50 mls @ 100 mls/hr IV Q24@2200 [facility] Last Infusion: 01/26/20 23:20 Dose: Infused Documented by: Vancomycin IV Pharmacy to Dose (1 ea/ Sodium Chloride) 500 mls @ 250 mls/hr IV PRN PRN; Protocol PRN Reason: Rx to Dose Insulin Human Lispro (Humalog Kwikpen (Bkc)) 0 unit SC ACHS [facility]; Protocol Last Admin: 01/27/20 11:44 Dose: Not Given Documented by: Melatonin (Melatonin) 3 mg PO QHS PRN PRN Reason: INSOMNIA Last Admin: 01/26/20 22:33 Dose: 3 mg Documented by: Ondansetron HCl (Zofran) 4 mg IV Q8H PRN PRN PRN Reason: NAUSEA/VOMITING Oxycodone HCl (Oxyir) 5 mg PO Q4H PRN PRN PRN Reason: Pain Score 4-10/10 Last Admin: 01/26/20 10:15 Dose: 5 mg Documented by: Sodium Chloride () 10 - 40 ml IV UD PRN PRN Reason: SALINE FLUSH Assessment/Plan All Active Problems (Last Reviewed 01/25/20 @ 18:[address] Della Mcleod, DO) Debility (Acute) Venous stasis dermatitis (Acute) DEEPTI (acute kidney injury) (Acute) Acute respiratory failure (Resolved) Plan will be to perform a right IJ tunneled dialysis catheter. There is benefits include bleeding infection possible pneumothorax have been reviewed with the patient all questions asked and answered the patient agrees to proceed. Office Visits / Consults: [id number] IP Consult L3
--- NOTE | 2020-01-27 13:16 | CASEMGMT ---
SW spoke with patient and he requested to go to [facility] [place]. SW called and left a message with referral as well as faxed information. Await response. Mary WELLS MSW
[2020-01-27] MEDS: Sodium Polystyrene Sulfonate 15 GM/60 ML UDC 30 GM PO (14:34)
[2020-01-27] MEDS: 0.9% Normal Saline 1,000 ML 75 ML IV (14:34)
--- NOTE | 2020-01-27 14:42 | CASEMGMT ---
NANO spoke with Autumn from [facility] and they can take patient. NANO told her we will let her know when we have a dialysis schedule. NANO notified patient and he said he will let his sister know. Plan: [facility] under skilled level of care Mary QUINONEZ
[2020-01-27 17:05] LABS: Bedside Glucose 142 mg/dL (70-110)
[2020-01-27] MEDS: Atorvastatin Calcium 20 MG Tablet PO (22:46)
[2020-01-27] MEDS: Heparin Injection (Vial) 5,000 UNIT/ML VIAL 5000 UNIT SC (22:48)
[2020-01-27 23:11] LABS: Bedside Glucose 126 mg/dL (70-110)
[2020-01-27] MEDS: Albuterol 2.5 MG/3 ML VIAL.NEB. INHALATION (23:31)
--- NOTE | 2020-01-27 23:45 | CPS ---
pt refuses to wear bipap, says he doesn't have much luck with because he only sleeps 2 hours at a time, offered pt bipap, he declined. aerosol tx given, pt admitted that he felt much better after aerosol tx.
[2020-01-28] VITALS (19 sets, daily range): BP systolic 92–120; BP diastolic 38–90; PULSE 90–100; RESP 16–20; TEMP 36.1–37; O2SAT 93–100
[2020-01-28] MEDS: 0.9% Normal Saline 1,000 ML 75 ML IV (04:31)
[2020-01-28 06:22] LABS: Absolute Lymphocyte Count 0.72 X10^3/uL (0.83-4.51); Absolute Neutrophil Count 5.7 X10^3/uL (2.0-7.7); Basophil# 0.01 X10^3/uL; Basophil% 0.1 % (0-1); Eosinophil# 0.36 X10^3/uL; Eosinophils% 4.8 % (0-5); Hematocrit 26.4 % (40-54); Hemoglobin 7.8 g/dL (13.0-16.5); Lymphocyte # 0.72 X10^3/ul (4.0); Lymphocyte % 9.6 % (19-41); Mean Corp Hgb Conc 29.5 g/dL (32-36); Mean Corpuscular Hgb 31.7 pg (27.0-32.0); Mean Corpuscular Volume 107.3 fL (80-94); Mean Platelet Vol. 12.9 fl (6.2-12.0); Monocyte# 0.52 X10^3/uL; Monocyte% 6.9 % (0-10); NRBC Flagged by Analyzer 0 % (0-5); Neutrophil # 5.73 X10^3/uL (2.7-7.7); Neutrophil % 76.3 % (47-70); POSITIVE COUNT YES; Platelet Count 58 K/mm3 (150-450); RBC Distribution Width CV 16.3 % (11.6-14.6); Red Blood Count 2.46 M/mm3 (4.6-6.2); White Blood Count 7.5 K/mm3 (4.4-11.0)
[2020-01-28 06:24] LABS: Differential Indicated SCAN CRITERIA MET
[2020-01-28 06:40] LABS: Vancomycin, Random Level 24.1 ug/mL (0.0-15.0)
[2020-01-28 06:41] LABS: Anion Gap 11 (5-15); BUN 105 mg/dL (7-18); BUN/Creat Ratio 17.1 RATIO (10-20); Calcium,Total 8.3 mg/dL (8.5-10.1); Chloride 109 mmol/L (98-107); Creatinine, Serum 6.13 mg/dL (0.70-1.30); EST Glomerular Filtration Rate 10 mL/min (>60); Est Glom Filt Rate - Afr Amer 12 mL/min (>60); Estimated Creatinine Clearance 11.58 ml/min; Glucose 111 mg/dL (74-106); Potassium 4.7 mmol/L (3.5-5.1); Sodium Level 140 mmol/L (136-145)
[2020-01-28 06:48] LABS: Differential Comment SCANNED
[2020-01-28 07:05] LABS: Bedside Glucose 101 mg/dL (70-110)
--- NOTE | 2020-01-28 08:59 | PCM.PN.REN ---
Subjective: doing well, no nausea, vomiting. Dialysis catheter placement today then initiate dialysis today. Pt agreed to proceed. Epistaxis this morning. Hook catheter removed. - Physical Exam Vitals/I&O's: Vital Signs Temp Pulse Resp BP Pulse Ox 98.6 F 93 18 92/68 95 01/28/20 06:56 01/28/20 07:00 01/28/20 06:56 01/28/20 06:56 01/28/20 07:22 Oxygen Flow Rate (L/min) 2 Oxygen Delivery Method Nasal Cannula Weight: 137.7 kg Body Mass Index (BMI) 42.9 Intake and Output for Last 24 Hours 01/26/20 01/27/20 01/28/20 23:59 23:59 23:59 Intake Total 2722.50 / 2922.50 2330.00 / 2510.00 578.75 / 578.75 Output Total 400 / 525 350 / 400 75 / 75 Balance 2322.50 / 2397.50 1980.00 / 2110.00 503.75 / 503.75 General: Alert, Oriented x3, Cooperative HEENT: - - epistaxis Lungs: Clear to auscultation Cardiovascular: Regular rate Abdomen: Soft, Non Tender, Obese Extremities: Edema Skin: - - cellulitis Microbiology Past 72 Hours 01/28/20 04:10 Stool C. difficile DNA Amplification - Final 01/25/20 15:05 Blood Culture (Wb) - Anticubital Right Blood Culture - Preliminary No growth in 48 hours. 01/25/20 14:55 Blood Culture (Wb) - Anticubital Left Blood Culture - Preliminary No growth in 48 hours. 01/26/20 09:35 Wound - Leg, Left Gram Stain - Final 01/26/20 09:35 Wound - Leg, Left Wound Culture - Preliminary Gram negative debby Laboratory Results 01/27/20 05:58: PT 16.2 H, INR 1.4, APTT 38.1 H 01/27/20 11:43: POC Glucose 129 H 01/27/20 16:38: POC Glucose 142 H 01/27/20 22:31: POC Glucose 126 H 01/28/20 05:50: Random Vancomycin 24.1 H 01/28/20 05:50: WBC 7.5, RBC 2.46 L, Hgb 7.8 L, Hct 26.4 L, MCV 107.3 H, MCH 31.7, MCHC 29.5 L, RDW Std Deviation 65.0 H, RDW Coeff of Inocencio 16.3 H, Plt Count 58 L, MPV 12.9 H, Immature Gran % (Auto) 2.300 H, Neut % (Auto) 76.3 H, Lymph % (Auto) 9.6 L, [place] % (Auto) 6.9, Eos % (Auto) 4.8, Baso % (Auto) 0.1, Absolute Neuts (auto) 5.7, Absolute Lymphs (auto) 0.72 L, Nucleated RBC % 0, Differential Comment SCANNED 01/28/20 05:50: Sodium 140, Potassium 4.7, Chloride 109 H, Carbon Dioxide 20.0 L, Anion Gap 11, BUN 105 H*, Creatinine 6.13 H, Estim Creat Clear Calc 11.58, Est GFR (MDRD) Af Amer 12 L, Est GFR (MDRD) Non-Af 10 L, BUN/Creatinine Ratio 17.1, Glucose 111 H, Calcium 8.3 L 01/28/20 06:57: POC Glucose 101 Current Medications Acetaminophen (Tylenol) 650 mg PO Q6H PRN PRN PRN Reason: Pain Score 1-10/Temp > 100.7 F Albuterol Sulfate (Ventolin Aerosols) 2.5 mg INHALATION Q2H PRN PRN PRN Reason: SOB/Wheezing Last Admin: 01/27/20 23:31 Dose: 2.5 mg Documented by: Atorvastatin Calcium (Lipitor) 20 mg PO QHS [facility] Last Admin: 01/27/20 22:46 Dose: 20 mg Documented by: Calamine/Phenol (Calmoseptine Ointment) 1 applic TOPICAL BID [facility]; Protocol Last Admin: 01/27/20 22:42 Dose: 1 applicatio Documented by: Carvedilol (Coreg) 6.25 mg PO BID [facility] Last Admin: 01/27/20 22:44 Dose: 6.25 mg Documented by: Ferrous Sulfate (Ferrous Sulfate) 325 mg PO DAILY@1200 [facility] [place] Last Admin: 01/27/20 11:52 Dose: 325 mg Documented by: Heparin Sodium (Porcine) (Heparin Na) 5,000 unit SC Q12 [facility] [place] Last Admin: 01/27/20 22:48 Dose: 5,000 unit Documented by: Sodium Chloride () 1,000 mls @ 75 mls/hr IV .[id number] [facility] Last Admin: 01/28/20 04:31 Dose: 75 mls/hr Documented by: Cefepime HCl 1 gm/ Sodium (Chloride) 50 mls @ 100 mls/hr IV Q24@2200 [facility] Last Infusion: 01/27/20 23:11 Dose: Infused Documented by: Vancomycin IV Pharmacy to Dose (1 ea/ Sodium Chloride) 500 mls @ 250 mls/hr IV PRN PRN; Protocol PRN Reason: Rx to Dose Insulin Human Lispro (Humalog Kwikpen (Bkc)) 0 unit SC ACHS [facility]; Protocol Last Admin: 01/28/20 06:59 Dose: Not Given Documented by: Melatonin (Melatonin) 3 mg PO QHS PRN PRN Reason: INSOMNIA Last Admin: 01/26/20 22:33 Dose: 3 mg Documented by: Ondansetron HCl (Zofran) 4 mg IV Q8H PRN PRN PRN Reason: NAUSEA/VOMITING Oxycodone HCl (Oxyir) 5 mg PO Q4H PRN PRN PRN Reason: Pain Score 4-10/10 Last Admin: 01/26/20 10:15 Dose: 5 mg Documented by: Sodium Chloride () 10 - 40 ml IV UD PRN PRN Reason: SALINE FLUSH Medical Necessity - Tobacco Use Smoking Status: Former smoker Tobacco Use: Cigars Assessment/Plan All Active Problems (Last Reviewed 01/27/20 @ 12:[address] Orville Blackwell MD) Debility (Acute) Venous stasis dermatitis (Acute) DEEPTI (acute kidney injury) (Acute) Acute respiratory failure (Resolved) 1. Acute on CKD Stage 4. Initiate hemodialysis today for elevated creatinine at 6.1 with oliguria. Will need outpt dialysis arranged prior to discharge. HD #2 tomorrow. 2. Hyperkalemia add 2g K diet 3. Morbid obesity 4. Chronic venous stasis, cellulitis. Afebrile. 5. Gen weakness. DW primary service, case mgmt
[2020-01-28] MEDS: Menthol/Lanolin/Calamine/Znox 113 GM Tube 1 APPLIC TOPICAL ×2 (09:07→22:12)
--- NOTE | 2020-01-28 10:03 | PCM.RX.CS ---
Consult Pharmacy has been consulted to manage selected antiobiotic: Vancomycin Type of Consult: Follow-up Suspected Infection: Skin/Soft tissue Prior Doses of Antibiotics Received/Current Regimen: Received vancomycin 1000mg IV x1 yesterday at 0947 Labs: Sodium 140 mmol/L (136-145) 01/28/20 05:50 Potassium 4.7 mmol/L (3.5-5.1) 01/28/20 05:50 Chloride 109 mmol/L (98-107) H 01/28/20 05:50 Carbon Dioxide 20.0 mmol/L (21.0-32.0) L 01/28/20 05:50 Anion Gap 11 (5-15) 01/28/20 05:50 BUN 105 mg/dL (7-18) H* 01/28/20 05:50 Creatinine 6.13 mg/dL (0.70-1.30) H 01/28/20 05:50 Est GFR (MDRD) Af Amer 12 mL/min (>60) L 01/28/20 05:50 Est GFR (MDRD) Non-Af 10 mL/min (>60) L 01/28/20 05:50 BUN/Creatinine Ratio 17.1 RATIO (10-20) 01/28/20 05:50 Glucose 111 mg/dL (74-106) H 01/28/20 05:50 Random Vancomycin 24.1 ug/mL (0.0-15.0) H 01/28/20 05:50 Microbiology: Microbiology 01/26/20 09:35 Wound - Leg, Left Gram Stain - Final 01/26/20 09:35 Wound - Leg, Left Wound Culture - Preliminary Gram negative debby Gram negative debby#2 Gram positive organism 01/28/20 04:10 Stool C. difficile DNA Amplification - Final 01/25/20 15:05 Blood Culture (Wb) - Anticubital Right Blood Culture - Preliminary No growth in 48 hours. 01/25/20 14:55 Blood Culture (Wb) - Anticubital Left Blood Culture - Preliminary No growth in 48 hours. Weight used for dosin.7 kg Estimated Creatinine Clearance: 15.7ml/min Goal Trough: 10-15 mcg/mL Pharmacy Plan for Drug Dosing: The vancomycin random level drawn this morning at 0550 came back as 24.1. The patient is transitioning to hemodialysis today so he will not need redosed after dialysis since the level was above 20. HD session #2 will be tomorrow so will enter another random level to be drawn tomorrow morning before dialysis. That level will then determine if a dose needs to be given after dialysis tomorrow. Pharmacy Service will continue to monitor and adjust dosing as required. Follow-Up Labs: Trough Vancomycin - random level Labs to be done on [date and time ordered]: 01/29/20 0600
[2020-01-28] MEDS: Bupivacaine Mpf 0.5% 30 ML VIAL (11:51)
[2020-01-28] MEDS: Heparin 10,000 UNITS/10 ML Vial 10000 UNITS (11:51)
--- NOTE | 2020-01-28 12:40 | CASEMGMT ---
OR notes, hep panel, CXR and 1st treatment notes to be sent once obtained. Per Ines at [facility], pt's chair time will be TTS at 0650 and Chinyere parson and [facility] also notified at this time, voice understanding. CM to follow for rest of clinicals to be sent. Pt to be dialyzed today after cath placement and then friday/friday with possible d/c to [facility] friday after dialysis if medically ready. Miranda PRASAD CM
--- NOTE | 2020-01-28 12:46 | OP.PCM_ITS ---
Problem List (1) DEEPTI (acute kidney injury) Status: Acute (2) Vascular catheter fitting or adjustment Status: Acute Report of Operation Date of Procedure: 01/28/20 Pre-Operative Diagnosis: Vascular fitting and adjustment. Acute kidney injury Post-Operative Diagnosis: Same Surgery/Procedure Performed:: 1. Attempted placement of a right IJ dialysis catheter. 2. placement of a left IJ dialysis catheter Type of Anesthesia:: Local MAC Anesthesiologist: Rhys Armstrong Estimated Blood Loss (mL): < 25 cc Description of Procedure: Was brought into the operating room. Placed in the supine position. Under excellent MAC anesthetic I ultrasound the right neck identify the internal jugular vein marked the neck the neck and chest were then sterilely prepped draped in usual fashion local was injected Seldinger's technique was used to gain access to the internal jugular vein. I tried to place the guidewire through the needle it would not go down I used fluoroscopy and it was clearly it was stopping I used a Glidewire and in the same instance it was stopping it was very clear that I had to abort this side which I did. Sterile dressings were applied. We took the drapes down I ultrasound the left neck identify the internal jugular vein marked the neck appropriately the neck and chest were sterilely prepped and draped in usual fashion. Local was injected Seldinger's technique was used to gain access to the internal jugular vein guidewire was placed with a needle the needle was removed and fluoroscopy was used to confirm proper placement of the guidewire which did go down into the superior vena cava without difficulty. I injected local onto the chest made a skin kitty I injected local up to the neck over the collarbone. A skin kitty was made in the neck on the guidewire. I tunneled the curved palindrome catheter up to the neck. Sequential dilators wer e then placed through the guidewire into the jugular vein dilator and sheath were then placed over this the dilator and guidewire removed and the catheter was then placed into the sheath and the sheath was subsequently removed. Fluoroscopy was used to confirm proper placement of the catheter. Catheter was then flushed with hep flush. The neck incision was closed with 3-0 Vicryl. The exit site of the catheter was closed with 3-0 Vicryl deep dermals and then the catheter itself was sutured to the skin with 3-0 nylon's. Sterile dressings were applied a 5 pound weight was then placed on top of the chest area to aid in good hemostasis. Portable chest x-ray was ordered. - Procedures Cardiovascular CF Procedures [id number]: Other Procedure See Report - [id number] + [id number], [phone] [id number]
--- NOTE | 2020-01-28 13:05 | RAD_ITS ---
STUDY: X-RAY CHEST REASON FOR EXAM: Male, 69 years old. POST DIALYSIS CATHETER INSERTION TECHNIQUE: Single AP portable view of the chest. COMPARISON: Comparison is made with prior study dated 01/25/2020. FINDINGS: A left-sided dialysis catheter has been placed. The tip is at the junction of the left brachiocephalic vein and superior vena cava. Progressive vascular congestion and CHF. Blunting of both costophrenic angles. There is moderate cardiac enlargement. Normal mediastinum and calli. Normal visualized pulmonary arteries. There is atherosclerotic tortuosity of the aortic arch and descending thoracic aorta. There are degenerative changes of the visualized thoracic spine. Normal visualized ribs, clavicles, and shoulders. There is no demonstrated abnormality of the visualized soft tissue structures of the upper abdomen. RAD/CXR for Line Placement IMPRESSION: The tip of the left dialysis catheter is at the junction of the superior vena cava and left brachiocephalic vein. CHF and blunting of both costophrenic angles. Cardiomegaly. Electronically Signed: Lukasz Akers, at 13:22 EDT , Service support ,
--- NOTE | 2020-01-28 13:50 | PCM.PN.HOSP ---
<Bob Lugo - Last Filed: 01/28/20 13:50> Patient Problems: Active and Suspected Problems (Last Reviewed 01/27/20 @ 12:[address] Orville Blackwell MD) Vascular catheter fitting or adjustment (Acute) Reason for Visit: DEEPTI Subjective: Pt seen and examined prior to dialysis cath placement. No issues overnight. Still producing some urine. No fever/chills. No new SOB or worsening of LE edema. No fever/chills. Vitals/I&O's: Vital Signs Temp Pulse Resp BP Pulse Ox 97.1 F L 96 16 112/69 97 01/28/20 12:55 01/28/20 13:15 01/28/20 13:15 01/28/20 13:15 01/28/20 13:15 Oxygen Flow Rate (L/min) 2 Oxygen Delivery Method Nasal Cannula Weight: 303 lb 9.224 oz Body Mass Index (BMI) 42.9 Intake and Output for Last 24 Hours 01/26/20 01/27/20 01/28/20 23:59 23:59 23:59 Intake Total 2722.50 / 2922.50 2330.00 / 2510.00 578.75 / 578.75 Output Total 400 / 525 350 / 400 75 / 75 Balance 2322.50 / 2397.50 1980.00 / 2110.00 503.75 / 503.75 General: Alert, Oriented x3, Cooperative HEENT: Atraumatic, PERRLA, EOMI, Normocephalic Neck: Supple, No JVD, Negative Carotid Bruits Lungs: Clear to auscultation, Diminished Cardiovascular: Regular rate, No murmurs Abdomen: Bowel Sounds Present, Soft, Non Tender Extremities: No edema, Capillary Refill Less than 3 Seconds Skin: No rashes, No breakdown Musculoskeletal: No Tenderness to Palpation of Joints or Extremities Neurological: Cranial nerves II-XII grossly intact Psych/Mental Status: Normal Affect, Appropriate Microbiology Past 72 Hours 01/26/20 09:35 Wound - Leg, Left Gram Stain - Final 01/26/20 09:35 Wound - Leg, Left Wound Culture - Preliminary Gram negative debby Gram negative debby#2 Gram positive organism 01/28/20 04:10 Stool C. difficile DNA Amplification - Final 01/25/20 15:05 Blood Culture (Wb) - Anticubital Right Blood Culture - Preliminary No growth in 48 hours. 01/25/20 14:55 Blood Culture (Wb) - Anticubital Left Blood Culture - Preliminary No growth in 48 hours. Laboratory Results 01/27/20 16:38: POC Glucose 142 H 01/27/20 22:31: POC Glucose 126 H 01/28/20 05:50: Random Vancomycin 24.1 H 01/28/20 05:50: WBC 7.5, RBC 2.46 L, Hgb 7.8 L, Hct 26.4 L, MCV 107.3 H, MCH 31.7, MCHC 29.5 L, RDW Std Deviation 65.0 H, RDW Coeff of Inocencio 16.3 H, Plt Count 58 L, MPV 12.9 H, Immature Gran % (Auto) 2.300 H, Neut % (Auto) 76.3 H, Lymph % (Auto) 9.6 L, [place] % (Auto) 6.9, Eos % (Auto) 4.8, Baso % (Auto) 0.1, Absolute Neuts (auto) 5.7, Absolute Lymphs (auto) 0.72 L, Nucleated RBC % 0, Differential Comment SCANNED 01/28/20 05:50: Sodium 140, Potassium 4.7, Chloride 109 H, Carbon Dioxide 20.0 L, Anion Gap 11, BUN 105 H*, Creatinine 6.13 H, Estim Creat Clear Calc 11.58, Est GFR (MDRD) Af Amer 12 L, Est GFR (MDRD) Non-Af 10 L, BUN/Creatinine Ratio 17.1, Glucose 111 H, Calcium 8.3 L 01/28/20 06:57: POC Glucose 101 Current Medications Acetaminophen (Tylenol) 650 mg PO Q6H PRN PRN PRN Reason: Pain Score 1-10/Temp > 100.7 F Albuterol Sulfate (Ventolin Aerosols) 2.5 mg INHALATION Q2H PRN PRN PRN Reason: SOB/Wheezing Last Admin: 01/27/20 23:31 Dose: 2.5 mg Documented by: Atorvastatin Calcium (Lipitor) 20 mg PO QHS DONNA Last Admin: 01/27/20 22:46 Dose: 20 mg Documented by: Calamine/Phenol (Calmoseptine Ointment) 1 applic TOPICAL BID DONNA; Protocol Last Admin: 09/18/20 09:07 Dose: 1 applicatio Documented by: Carvedilol (Coreg) 6.25 mg PO BID [facility] Last Admin: 01/27/20 22:44 Dose: 6.25 mg Documented by: Ferrous Sulfate (Ferrous Sulfate) 325 mg PO DAILY@1200 [facility] Last Admin: 01/27/20 11:52 Dose: 325 mg Documented by: Heparin Sodium (Porcine) (Heparin Na) 5,000 unit SC Q12 [facility] Last Admin: 01/28/20 09:09 Dose: Not Given Documented by: Sodium Chloride () 1,000 mls @ 75 mls/hr IV .[id number] [facility] Last Admin: 01/28/20 04:31 Dose: 75 mls/hr Documented by: Cefepime HCl 1 gm/ Sodium (Chloride) 50 mls @ 100 mls/hr IV Q24@2200 [facility] Last Infusion: 01/27/20 23:11 Dose: Infused Documented by: Vancomycin IV Pharmacy to Dose (1 ea/ Sodium Chloride) 500 mls @ 250 mls/hr IV PRN PRN; Protocol PRN Reason: Rx to Dose Insulin Human Lispro (Humalog Kwikpen (Bkc)) 0 unit SC ACHS [facility]; Protocol Last Admin: 01/28/20 06:59 Dose: Not Given Documented by: Melatonin (Melatonin) 3 mg PO QHS PRN PRN Reason: INSOMNIA Last Admin: 01/26/20 22:33 Dose: 3 mg Documented by: Ondansetron HCl (Zofran) 4 mg IV Q8H PRN PRN PRN Reason: NAUSEA/VOMITING Oxycodone HCl (Oxyir) 5 mg PO Q4H PRN PRN PRN Reason: Pain Score 4-10/10 Last Admin: 01/26/20 10:15 Dose: 5 mg Documented by: Sodium Chloride () 10 - 40 ml IV UD PRN PRN Reason: SALINE FLUSH STROKE Vital Signs/Narrative: Vital Signs Temp Pulse Resp BP Pulse Ox 01/28/20 13:15 96 16 112/69 97 01/28/20 13:10 97 16 117/44 L 95 01/28/20 13:04 97 16 117/44 L 93 01/28/20 12:55 97.1 F L 100 16 110/54 L 96 Medical Necessity - Tobacco Use Smoking Status: Former smoker Tobacco Use: Cigars Assessment/Plan All Active Problems (Last Reviewed 01/27/20 @ 12:[address] Orville Blackwell MD) Debility (Acute) Venous stasis dermatitis (Acute) Vascular catheter fitting or adjustment (Acute) DEEPTI (acute kidney injury) (Acute) Acute respiratory failure (Resolved) 1. DEEPTI - Neprhology following. Pt to start dialysis tonight. Gen surgery consulted for access - went to OR today for tunneled dialysis cath. Pt on 2lpm, no SOB. Recent echo with preserved EF. 2. Anemia of chronic disease likely due to above, and hx iron deficiency - will trend. No need for transfusion today. Continue PO iron. 3. Venous stasis dermatitis / BL LE cellulitis- MRSA negative. Hx pseudomonas. Dopplers neg for DVT. Wound care consult. Cx with GNR x 2 and Gram + organism. Blood cx NTD. Vanc/cefepime for now. No fever/leukocytosis. 4. COPD - no exacerbation- continue current therapy. 5. Hx AV stenosis 6. HLD -statin 7. Uncontrolled DMt2 with neuropathy, nephropathy, morbid obesity - last A1C 5.5, SSI, climate change risk assessor consult. 8. HERNÁN - on home Bipap DVT ppx: heparin DC planning: SNF. Will need dialysis arranged. Possibly dc friday. This patient was seen by Bob Lugo PA-C under the supervision of Doctor Meghna. <Rudy Coffman F - Last Filed: 01/28/20 17:58> Vitals/I&O's: Vital Signs Temp Pulse Resp BP Pulse Ox 98.0 F 93 16 107/38 L 94 01/28/20 14:30 01/28/20 15:00 01/28/20 14:30 01/28/20 14:30 01/28/20 14:30 Oxygen Flow Rate (L/min) 2 Oxygen Delivery Method Nasal Cannula Weight: 303 lb 9.224 oz Body Mass Index (BMI) 42.9 Intake and Output for Last 24 Hours 01/26/20 01/27/20 01/28/20 23:59 23:59 23:59 Intake Total 2722.50 / 2922.50 2330.00 / 2510.00 1228.75 / 1228.75 Output Total 400 / 525 350 / 400 150 / 150 Balance 2322.50 / 2397.50 1980.00 / 2110.00 1078.75 / 1078.75 Microbiology Past 72 Hours 01/26/20 09:35 Wound - Leg, Left Gram Stain - Final 01/26/20 09:35 Wound - Leg, Left Wound Culture - Preliminary Gram negative debby Gram negative debby#2 Gram positive organism 01/28/20 04:10 Stool C. difficile DNA Amplification - Final 01/25/20 15:05 Blood Culture (Wb) - Anticubital Right Blood Culture - Preliminary No growth in 48 hours. 01/25/20 14:55 Blood Culture (Wb) - Anticubital Left Blood Culture - Preliminary No growth in 48 hours. Laboratory Results 01/27/20 22:31: POC Glucose 126 H 01/28/20 05:50: Random Vancomycin 24.1 H 01/28/20 05:50: WBC 7.5, RBC 2.46 L, Hgb 7.8 L, Hct 26.4 L, MCV 107.3 H, MCH 31.7, MCHC 29.5 L, RDW Std Deviation 65.0 H, RDW Coeff of Inocencio 16.3 H, Plt Count 58 L, MPV 12.9 H, Immature Gran % (Auto) 2.300 H, Neut % (Auto) 76.3 H, Lymph % (Auto) 9.6 L, [place] % (Auto) 6.9, Eos % (Auto) 4.8, Baso % (Auto) 0.1, Absolute Neuts (auto) 5.7, Absolute Lymphs (auto) 0.72 L, Nucleated RBC % 0, Differential Comment SCANNED 01/28/20 05:50: Sodium 140, Potassium 4.7, Chloride 109 H, Carbon Dioxide 20.0 L, Anion Gap 11, BUN 105 H*, Creatinine 6.13 H, Estim Creat Clear Calc 11.58, Est GFR (MDRD) Af Amer 12 L, Est GFR (MDRD) Non-Af 10 L, BUN/Creatinine Ratio 17.1, Glucose 111 H, Calcium 8.3 L 01/28/20 06:57: POC Glucose 101 01/28/20 16:34: POC Glucose 107 Current Medications Acetaminophen (Tylenol) 650 mg PO Q6H PRN PRN PRN Reason: Pain Score 1-10/Temp > 100.7 F Albuterol Sulfate (Ventolin Aerosols) 2.5 mg INHALATION Q2H PRN PRN PRN Reason: SOB/Wheezing Last Admin: 01/27/20 23:31 Dose: 2.5 mg Documented by: Atorvastatin Calcium (Lipitor) 20 mg PO QHS [facility] Last Admin: 01/27/20 22:46 Dose: 20 mg Documented by: Calamine/Phenol (Calmoseptine Ointment) 1 applic TOPICAL BID [facility]; Protocol Last Admin: 01/28/20 09:07 Dose: 1 applicatio Documented by: Carvedilol (Coreg) 6.25 mg PO BID [facility] Last Admin: 01/28/20 16:15 Dose: Not Given Documented by: Ferrous Sulfate (Ferrous Sulfate) 325 mg PO DAILY@1200 [facility] Last Admin: 01/28/20 16:15 Dose: Not Given Documented by: Heparin Sodium (Porcine) (Heparin Na) 5,000 unit SC Q12 [facility] Last Admin: 01/28/20 09:09 Dose: Not Given Documented by: Cefepime HCl 1 gm/ Sodium (Chloride) 50 mls @ 100 mls/hr IV Q24@2200 [facility] Last Infusion: 01/27/20 23:11 Dose: Infused Documented by: Vancomycin IV Pharmacy to Dose (1 ea/ Sodium Chloride) 500 mls @ 250 mls/hr IV PRN PRN; Protocol PRN Reason: Rx to Dose Insulin Human Lispro (Humalog Kwikpen (Bkc)) 0 unit SC ACHS [facility]; Protocol Last Admin: 01/28/20 16:35 Dose: Not Given Documented by: Melatonin (Melatonin) 3 mg PO QHS PRN PRN Reason: INSOMNIA Last Admin: 01/26/20 22:33 Dose: 3 mg Documented by: Ondansetron HCl (Zofran) 4 mg IV Q8H PRN PRN PRN Reason: NAUSEA/VOMITING Oxycodone HCl (Oxyir) 5 mg PO Q4H PRN PRN PRN Reason: Pain Score 4-10/10 Last Admin: 01/26/20 10:15 Dose: 5 mg Documented by: Sodium Chloride () 10 - 40 ml IV UD PRN PRN Reason: SALINE FLUSH STROKE Vital Signs/Narrative: Vital Signs Temp Pulse Resp BP Pulse Ox 01/28/20 15:00 93 01/28/20 14:30 98.0 F 90 16 107/38 L 94 Addendum: Dr. Coffman I personally examined the patient and reviewed the chart. I agree with the above. 69-year-old male presenting with DEEPTI on CKD 4 as well as lower extremity venous stasis and possible worsening wound infection. We will continue with IV vancomycin and cefepime and appreciate nephrology's assistance. He may need to be on dialysis at some point we will continue to hold his Lasix and provide gentle IV fluids. Previous wound culture in August with Pseudomonas, Klebsiella, E. coli, Streptococcus G, corynebacterium. Current wound cultures are pending. 01/27/2020: Still with poor urine output though he feels little bit better today. Denies any shortness of breath or chest pain and is currently on oxygen. He did agree to have dialysis today therefore surgery was consulted to place a tunneled catheter for dialysis. Discussed the issues with case management about finding him a fpc that will also allow him to do dialysis. Wound culture is growing a gram-negative debby therefore we will continue with his current antibiotics. 01/28/2020: Doing well today no issues overnight. He tolerated catheter insertion well and should be able to undergo dialysis this evening. He will also receive dialysis tomorrow and then hopefully could be transitioned to outpatient dialysis at the facility. His wound cultures are growing gram-negative rods and gram-positive organism therefore he will be continued on his cefepime and vancomycin for now, as this covers the previous organisms that he had grown from the wound. Appreciate nephrology's assistance as well as general surgery for inserting the dialysis catheter. Inpatient E&M: 506[address] [facility] L2
--- NOTE | 2020-01-28 14:20 | CASEMGMT ---
OP note and CXR faxed to [facility] and [facility] at this time. Miranda PRASAD CM
[2020-01-28 16:40] LABS: Bedside Glucose 107 mg/dL (70-110)
--- NOTE | 2020-01-28 17:52 | CASEMGMT ---
Social Work SW spoke with physician who states pt will likely be ready for discharge on Friday after dialysis. Phone call to [facility] and updated and they can accept at that time. Pt will go to dialysis TTS at 6:50 with [facility] to transport. Pt informed of discharge and agreeable. Pt requesting to call his sister to update her. SW assisted pt in making phone call. PASSRR completed in [employer] system and Covid screen complete. Plan: [facility], Friday after dialysis [facility]
[2020-01-28 18:57] LABS: Ferritin 511 ng/mL (26-388); Iron 26 ug/dL (65-175); Iron Binding Capacity,Total 189 ug/dL (250-450)
[2020-01-28 20:59] LABS: Hepatitis B Surface Antibody Non-Reactive; Hepatitis B Surface Antigen Non-Reactive (Nonreactive)
--- NOTE | 2020-01-28 21:25 | DIALYSIS ---
Pt tolerated initial 3hr HD tx well. Net UF Even. See flow record for tx data.
[2020-01-28] MEDS: Epoetin Alfa epbx 10,000 UNITS/ML 10000 UNIT IV (22:11)
[2020-01-28] MEDS: 0.9% Saline Lock 10 ML Syringe IV (22:12)
[2020-01-28] MEDS: Heparin Injection (Vial) 5,000 UNIT/ML VIAL 5000 UNIT SC (22:12)
[2020-01-28 22:21] LABS: Bedside Glucose 81 mg/dL (70-110)
[2020-01-28] MEDS: Atorvastatin Calcium 20 MG Tablet PO (23:27)
[2020-01-28] MEDS: Carvedilol 6.25 MG Tablet PO (23:27)
[2020-01-29] VITALS (11 sets, daily range): BP systolic 99–119; BP diastolic 44–60; PULSE 87–98; RESP 16–20; TEMP 36.3–36.9; O2SAT 95–100
[2020-01-29 06:49] LABS: Absolute Lymphocyte Count 0.81 X10^3/uL (0.83-4.51); Absolute Neutrophil Count 3.9 X10^3/uL (2.0-7.7); Basophil# 0.01 X10^3/uL; Basophil% 0.2 % (0-1); Eosinophil# 0.38 X10^3/uL; Eosinophils% 6.6 % (0-5); Hematocrit 25.3 % (40-54); Hemoglobin 7.5 g/dL (13.0-16.5); Lymphocyte # 0.81 X10^3/ul (4.0); Mean Corp Hgb Conc 29.6 g/dL (32-36); Mean Corpuscular Hgb 31.4 pg (27.0-32.0); Mean Corpuscular Volume 105.9 fL (80-94); Mean Platelet Vol. 13.3 fl (6.2-12.0); Monocyte# 0.55 X10^3/uL; Monocyte% 9.5 % (0-10); NRBC Flagged by Analyzer 0 % (0-5); Neutrophil # 3.93 X10^3/uL (2.7-7.7); Neutrophil % 68.1 % (47-70); POSITIVE COUNT YES; Platelet Count 58 K/mm3 (150-450); RBC Distribution Width CV 16.3 % (11.6-14.6); Red Blood Count 2.39 M/mm3 (4.6-6.2); White Blood Count 5.8 K/mm3 (4.4-11.0)
[2020-01-29 06:55] LABS: Bedside Glucose 93 mg/dL (70-110)
[2020-01-29 07:05] LABS: Anion Gap 7 (5-15); BUN 69 mg/dL (7-18); BUN/Creat Ratio 15.4 RATIO (10-20); Calcium,Total 7.9 mg/dL (8.5-10.1); Chloride 106 mmol/L (98-107); Creatinine, Serum 4.47 mg/dL (0.70-1.30); EST Glomerular Filtration Rate 14 mL/min (>60); Est Glom Filt Rate - Afr Amer 17 mL/min (>60); Estimated Creatinine Clearance 15.88 ml/min; Glucose 102 mg/dL (74-106); Potassium 3.7 mmol/L (3.5-5.1); Sodium Level 139 mmol/L (136-145)
[2020-01-29 07:13] LABS: Vancomycin, Random Level 20.7 ug/mL (0.0-15.0)
[2020-01-29] MEDS: Sodium Ferric Gluconat 125 MG in 0.9% Normal Saline 100 ML 110 MG IV (08:55)
[2020-01-29] MEDS: Carvedilol 6.25 MG Tablet PO ×2 (10:45→22:29)
[2020-01-29] MEDS: Menthol/Lanolin/Calamine/Znox 113 GM Tube 1 APPLIC TOPICAL ×2 (10:45→22:30)
[2020-01-29] MEDS: Ferrous Sulfate 325 MG Tablet PO (13:00)
[2020-01-29 13:05] LABS: Bedside Glucose 99 mg/dL (70-110)
--- NOTE | 2020-01-29 13:11 | PCM.PN.HOSP ---
<Bob Lugo - Last Filed: 01/29/20 14:02> Patient Problems: Active and Suspected Problems (Last Reviewed 01/27/20 @ 12:[address] Orville Blackwell MD) Vascular catheter fitting or adjustment (Acute) Reason for Visit: DEEPTI Subjective: somewhat lethargic this AM. Yesterday he became confused overnight following dialysis. Today no complaints. No fever/chills. No SOB/cough. No nausea/vomiting/diarrhea. Vitals/I&O's: Vital Signs Temp Pulse Resp BP Pulse Ox 97.9 F 87 18 110/44 L 95 01/29/20 12:50 01/29/20 12:50 01/29/20 12:50 01/29/20 12:50 01/29/20 12:50 Oxygen Flow Rate (L/min) 2 Oxygen Delivery Method Room Air Weight: 304 lb 7.334 oz Body Mass Index (BMI) 42.9 Intake and Output for Last 24 Hours 01/27/20 01/28/20 01/29/20 23:59 23:59 23:59 Intake Total 2330.00 / 2510.00 1278.75 / 1398.75 350 / 350 Output Total 350 / 400 150 / 150 260 / 260 Balance 1979. / 2109.00 1128.75 / 1248.75 90 / 90 General: Alert, Oriented x3, Cooperative HEENT: Atraumatic, PERRLA, EOMI, Normocephalic Neck: Supple, No JVD, Negative Carotid Bruits Lungs: Clear to auscultation, Normal air movement Cardiovascular: Regular rate, No murmurs Abdomen: Bowel Sounds Present, Soft, Non Tender Extremities: No edema, Capillary Refill Less than 3 Seconds Skin: No rashes, No breakdown Musculoskeletal: No Tenderness to Palpation of Joints or Extremities Neurological: Cranial nerves II-XII grossly intact Psych/Mental Status: Normal Affect, Appropriate, Alert and oriented to time, place, person, mood and affect Microbiology Past 72 Hours 01/26/20 09:35 Wound - Leg, Left Gram Stain - Final 01/26/20 09:35 Wound - Leg, Left Wound Culture - Final Pseudomonas aeroginosa Citrobacter species Corynebacterium striatum 01/28/20 04:10 Stool C. difficile DNA Amplification - Final 01/25/20 15:05 Blood Culture (Wb) - Anticubital Right Blood Culture - Preliminary No growth in 48 hours. 01/25/20 14:55 Blood Culture (Wb) - Anticubital Left Blood Culture - Preliminary No growth in 48 hours. Laboratory Results 01/28/20 05:50: Iron 26 L, TIBC 189 L, Ferritin 511 H 01/28/20 16:34: POC Glucose 107 01/28/20 18:25: Transferrin Pending, Hep B Core Total Ab Pending 01/28/20 18:25: Hep Bs Antigen Non-Reactive, Hep Bs Antibody Non-Reactive 01/28/20 18:25: Transferrin Cancelled 01/28/20 18:25: Hep Bs Antibody Cancelled 01/28/20 22:10: POC Glucose 81 01/29/20 06:00: WBC 5.8, RBC 2.39 L, Hgb 7.5 L, Hct 25.3 L, MCV 105.9 H, MCH 31.4, MCHC 29.6 L, RDW Std Deviation 64.0 H, RDW Coeff of Inocencio 16.3 H, Plt Count 58 L, MPV 13.3 H, Immature Gran % (Auto) 1.600 H, Neut % (Auto) 68.1, Lymph % (Auto) 14.0 L, Hartley % (Auto) 9.5, Eos % (Auto) 6.6 H, Baso % (Auto) 0.2, Absolute Neuts (auto) 3.9, Absolute Lymphs (auto) 0.81 L, Nucleated RBC % 0 01/29/20 06:00: Sodium 139, Potassium 3.7, Chloride 106, Carbon Dioxide 26.0, Anion Gap 7, BUN 69 H, Creatinine 4.47 H, Estim Creat Clear Calc 15.88, Est GFR (MDRD) Af Amer 17 L, Est GFR (MDRD) Non-Af 14 L, BUN/Creatinine Ratio 15.4, Glucose 102, Calcium 7.9 L 01/29/20 06:00: Random Vancomycin 20.7 H 01/29/20 06:50: POC Glucose 93 01/29/20 12:58: POC Glucose 99 Current Medications Acetaminophen (Tylenol) 650 mg PO Q6H PRN PRN PRN Reason: Pain Score 1-10/Temp > 100.7 F Albuterol Sulfate (Ventolin Aerosols) 2.5 mg INHALATION Q2H PRN PRN PRN Reason: SOB/Wheezing Last Admin: 01/27/20 23:31 Dose: 2.5 mg Documented by: Atorvastatin Calcium (Lipitor) 20 mg PO QHS [facility] Last Admin: 01/28/20 23:27 Dose: 20 mg Documented by: Calamine/Phenol (Calmoseptine Ointment) 1 applic TOPICAL BID [facility]; Protocol Last Admin: 01/29/20 10:45 Dose: 1 applicatio Documented by: Carvedilol (Coreg) 6.25 mg PO BID [facility] Last Admin: 01/29/20 10:45 Dose: 6.25 mg Documented by: Ferrous Sulfate (Ferrous Sulfate) 325 mg PO DAILY@1200 [facility] Last Admin: 01/29/20 13:00 Dose: 325 mg Documented by: Heparin Sodium (Porcine) (Heparin Na) 5,000 unit SC Q12 [facility] Last Admin: 01/29/20 10:48 Dose: Not Given Documented by: Cefepime HCl 1 gm/ Sodium (Chloride) 50 mls @ 100 mls/hr IV Q24@2200 [facility] Last Infusion: 01/28/20 23:05 Dose: Infused Documented by: Vancomycin IV Pharmacy to Dose (1 ea/ Sodium Chloride) 500 mls @ 250 mls/hr IV PRN PRN; Protocol PRN Reason: Rx to Dose Insulin Human Lispro (Humalog Kwikpen (Bkc)) 0 unit SC ACHS [facility]; Protocol Last Admin: 01/29/20 12:59 Dose: Not Given Documented by: Melatonin (Melatonin) 3 mg PO QHS PRN PRN Reason: INSOMNIA Last Admin: 01/26/20 22:33 Dose: 3 mg Documented by: Ondansetron HCl (Zofran) 4 mg IV Q8H PRN PRN PRN Reason: NAUSEA/VOMITING Oxycodone HCl (Oxyir) 5 mg PO Q4H PRN PRN PRN Reason: Pain Score 4-10/10 Last Admin: 01/26/20 10:15 Dose: 5 mg Documented by: Sodium Chloride () 10 - 40 ml IV UD PRN PRN Reason: SALINE FLUSH Last Admin: 01/28/20 22:12 Dose: 10 ml Documented by: STROKE Vital Signs/Narrative: Vital Signs Temp Pulse Resp BP Pulse Ox 01/29/20 12:50 97.9 F 87 18 110/44 L 95 Medical Necessity - Tobacco Use Smoking Status: Former smoker Tobacco Use: Cigars Assessment/Plan All Active Problems (Last Reviewed 01/27/20 @ 12:[address] Orville Blackwell MD) Debility (Acute) Venous stasis dermatitis (Acute) Vascular catheter fitting or adjustment (Acute) DEEPTI (acute kidney injury) (Acute) Acute respiratory failure (Resolved) 1. DEEPTI - Neprhology following. Pt on 2lpm, no SOB. Recent echo with preserved EF. -Dialysis yesterday -Some encephalopathy following dialysis. -Repeat dialysis today/tomorrow. -hep panel pending. 2. Anemia of chronic disease likely due to above, and hx iron deficiency - will trend. No need for transfusion today. Continue PO iron. Iron 26, TIBC 189, ferritin 511. Epoetin x1 given. IV iron ordered per nephrology. 3. Venous stasis dermatitis / BL LE cellulitis- MRSA negative. Hx pseudomonas. Dopplers neg for DVT. Wound care consult. Cx with GNR x 2 and Gram + organism. Blood cx NTD. Vanc/cefepime for now. No fever/leukocytosis. 4. COPD - no exacerbation- continue current therapy. 5. Hx AV stenosis 6. HLD -statin 7. Uncontrolled DMt2 with neuropathy, nephropathy, morbid obesity - last A1C 5.5, SSI, surgery center administrator consult. 8. HERNÁN - on home Bipap 9. Thrombocytopenia - stable at 58. trend. DVT ppx: heparin DC planning: SNF. Will need dialysis arranged. Possibly dc friday. This patient was seen by Bob Lugo PA-C under the supervision of Doctor Meghna. <Rudy Coffman F - Last Filed: 01/29/20 16:21> Vitals/I&O's: Vital Signs Temp Pulse Resp BP Pulse Ox 98.2 F 92 16 114/56 L 97 01/29/20 15:15 01/29/20 15:17 01/29/20 15:15 01/29/20 15:15 01/29/20 15:15 Oxygen Flow Rate (L/min) 2 Oxygen Delivery Method Nasal Cannula Weight: 304 lb 7.334 oz Body Mass Index (BMI) 42.9 Intake and Output for Last 24 Hours 01/27/20 01/28/20 01/29/20 23:59 23:59 23:59 Intake Total 2330.00 / 2510.00 1278.75 / 1398.75 350 / 350 Output Total 350 / 400 150 / 150 260 / 260 Balance 2109. 1128.75 / 1248.75 90 / 90 Microbiology Past 72 Hours 01/26/20 09:35 Wound - Leg, Left Gram Stain - Final 01/26/20 09:35 Wound - Leg, Left Wound Culture - Final Pseudomonas aeroginosa Citrobacter species Corynebacterium striatum 01/28/20 04:10 Stool C. difficile DNA Amplification - Final 01/25/20 15:05 Blood Culture (Wb) - Anticubital Right Blood Culture - Preliminary No growth in 48 hours. 01/25/20 14:55 Blood Culture (Wb) - Anticubital Left Blood Culture - Preliminary No growth in 48 hours. Laboratory Results 01/28/20 05:50: Iron 26 L, TIBC 189 L, Ferritin 511 H 01/28/20 16:34: POC Glucose 107 01/28/20 18:25: Transferrin Pending, Hep B Core Total Ab Pending 01/28/20 18:25: Hep Bs Antigen Non-Reactive, Hep Bs Antibody Non-Reactive 01/28/20 18:25: Transferrin Cancelled 01/28/20 18:25: Hep Bs Antibody Cancelled 01/28/20 22:10: POC Glucose 81 01/29/20 06:00: WBC 5.8, RBC 2.39 L, Hgb 7.5 L, Hct 25.3 L, MCV 105.9 H, MCH 31.4, MCHC 29.6 L, RDW Std Deviation 64.0 H, RDW Coeff of Inocencio 16.3 H, Plt Count 58 L, MPV 13.3 H, Immature Gran % (Auto) 1.600 H, Neut % (Auto) 68.1, Lymph % (Auto) 14.0 L, Hartley % (Auto) 9.5, Eos % (Auto) 6.6 H, Baso % (Auto) 0.2, Absolute Neuts (auto) 3.9, Absolute Lymphs (auto) 0.81 L, Nucleated RBC % 0 01/29/20 06:00: Sodium 139, Potassium 3.7, Chloride 106, Carbon Dioxide 26.0, Anion Gap 7, BUN 69 H, Creatinine 4.47 H, Estim Creat Clear Calc 15.88, Est GFR (MDRD) Af Amer 17 L, Est GFR (MDRD) Non-Af 14 L, BUN/Creatinine Ratio 15.4, Glucose 102, Calcium 7.9 L 01/29/20 06:00: Random Vancomycin 20.7 H 01/29/20 06:50: POC Glucose 93 01/29/20 12:58: POC Glucose 99 Current Medications Acetaminophen (Tylenol) 650 mg PO Q6H PRN PRN PRN Reason: Pain Score 1-10/Temp > 100.7 F Albuterol Sulfate (Ventolin Aerosols) 2.5 mg INHALATION Q2H PRN PRN PRN Reason: SOB/Wheezing Last Admin: 01/27/20 23:31 Dose: 2.5 mg Documented by: Atorvastatin Calcium (Lipitor) 20 mg PO QHS [facility] Last Admin: 01/28/20 23:27 Dose: 20 mg Documented by: Calamine/Phenol (Calmoseptine Ointment) 1 applic TOPICAL BID [facility]; Protocol Last Admin: 01/29/20 10:45 Dose: 1 applicatio Documented by: Carvedilol (Coreg) 6.25 mg PO BID [facility] Last Admin: 01/29/20 10:45 Dose: 6.25 mg Documented by: Ferrous Sulfate (Ferrous Sulfate) 325 mg PO DAILY@1200 [facility] Last Admin: 01/29/20 13:00 Dose: 325 mg Documented by: Heparin Sodium (Porcine) (Heparin Na) 5,000 unit SC Q12 [facility] Last Admin: 01/29/20 10:48 Dose: Not Given Documented by: Meropenem 1 gm/ Sodium (Chloride) 120 mls @ 33 mls/hr IV Q24H [facility] Insulin Human Lispro (Humalog Kwikpen (Bkc)) 0 unit SC ACHS [facility]; Protocol Last Admin: 01/29/20 12:59 Dose: Not Given Documented by: Melatonin (Melatonin) 3 mg PO QHS PRN PRN Reason: INSOMNIA Last Admin: 01/26/20 22:33 Dose: 3 mg Documented by: Ondansetron HCl (Zofran) 4 mg IV Q8H PRN PRN PRN Reason: NAUSEA/VOMITING Oxycodone HCl (Oxyir) 5 mg PO Q4H PRN PRN PRN Reason: Pain Score 4-10/10 Last Admin: 01/26/20 10:15 Dose: 5 mg Documented by: Sodium Chloride () 10 - 40 ml IV UD PRN PRN Reason: SALINE FLUSH Last Admin: 01/28/20 22:12 Dose: 10 ml Documented by: STROKE Vital Signs/Narrative: Vital Signs Temp Pulse Resp BP Pulse Ox 01/29/20 15:17 92 01/29/20 15:15 98.2 F 92 16 114/56 L 97 01/29/20 12:50 97.9 F 87 18 110/44 L 95 Addendum: Dr. Coffman I personally examined the patient and reviewed the chart. I agree with the above. 69-year-old male presenting with DEEPTI on CKD 4 as well as lower extremity venous stasis and possible worsening wound infection. We will continue with IV vancomycin and cefepime and appreciate nephrology's assistance. He may need to be on dialysis at some point we will continue to hold his Lasix and provide gentle IV fluids. Previous wound culture in August with Pseudomonas, Klebsiella, E. coli, Streptococcus G, corynebacterium. Current wound cultures are pending. 01/27/2020: Still with poor urine output though he feels little bit better today. Denies any shortness of breath or chest pain and is currently on oxygen. He did agree to have dialysis today therefore surgery was consulted to place a tunneled catheter for dialysis. Discussed the issues with case management about finding him a intermediate that will also allow him to do dialysis. Wound culture is growing a gram-negative debby therefore we will continue with his current antibiotics. 01/28/2020: Doing well today no issues overnight. He tolerated catheter insertion well and should be able to undergo dialysis this evening. He will also receive dialysis tomorrow and then hopefully could be transitioned to outpatient dialysis at the facility. His wound cultures are growing gram-negative rods and gram-positive organism therefore he will be continued on his cefepime and vancomycin for now, as this covers the previous organisms that he had grown from the wound. Appreciate nephrology's assistance as well as general surgery for inserting the dialysis catheter. 01/29/2020: Has some confusion last night after dialysis. He was running even on his first 3-hour hemodialysis. He will undergo dialysis again today. Seems to feel little bit better today compared to his previous days. We did get culture data back and he is growing a Pseudomonas and the Citrobacter, unfortunately the Citrobacter is resistant to cefepime therefore he was transitioned to meropenem for his leg wound. We will continue with iron supplementation as well he was given a dose of iron this morning via IV and then was placed on oral replacement. He was also given a dose of EPO by nephrology yesterday evening after dialysis. Inpatient E&M: 42643 Subs Hosp L2
--- NOTE | 2020-01-29 13:56 | CASEMGMT ---
OSMAR CM Note: Dialysis run sheet and Hepatitis lab results faxed to [facility]. Anayeli PRASAD BSN ACM
[2020-01-29 17:05] LABS: Bedside Glucose 90 mg/dL (70-110)
--- NOTE | 2020-01-29 19:02 | DIALYSIS ---
2nd hemodialysis completed x 3.5 hrs. net fluid removal 2000ml. Access via left chest HD cath. pt umesh well. See HD flowsheet on chart.
[2020-01-29] MEDS: 0.9% Saline Lock 10 ML Syringe IV (19:50)
[2020-01-29] MEDS: Heparin 10,000 UNITS/10 ML Vial IV (19:50)
[2020-01-29] MEDS: Heparin Injection (Vial) 5,000 UNIT/ML VIAL 5000 UNIT SC (22:29)
[2020-01-29] MEDS: Atorvastatin Calcium 20 MG Tablet PO (22:29)
[2020-01-29 22:40] LABS: Bedside Glucose 78 mg/dL (70-110)
[2020-01-30] VITALS (10 sets, daily range): BP systolic 98–128; BP diastolic 40–57; PULSE 84–94; RESP 16–20; TEMP 36.4–36.8; O2SAT 97–100
--- NOTE | 2020-01-30 05:21 | EKG12_ITS ---
Test Reason : AM Blood Pressure : / mmHG Vent. Rate : 091 BPM Atrial Rate : 091 BPM P-R Int : 200 ms QRS Dur : 152 ms QT Int : 416 ms P-R-T Axes : 051 -49 030 degrees QTc Int : 511 ms Normal sinus rhythm Right bundle branch block Left anterior fascicular block Bifascicular block Abnormal ECG When compared with ECG of 25-JAN-2020 16:26, No significant change was found Confirmed by ROSY PERRY, ASA ([id number]), scientific editor MANUEL VELÁZQUEZ ([id number]) on 02/04/2020 1:08:30 PM Referred By: CHANDRAKANT Confirmed By:ASA GALLEGOS MD
[2020-01-30 05:46] LABS: Absolute Lymphocyte Count 0.87 X10^3/uL (0.83-4.51); Absolute Neutrophil Count 3.3 X10^3/uL (2.0-7.7); Basophil# 0.02 X10^3/uL; Basophil% 0.4 % (0-1); Eosinophil# 0.33 X10^3/uL; Eosinophils% 6.3 % (0-5); Hematocrit 26.1 % (40-54); Hemoglobin 7.7 g/dL (13.0-16.5); Lymphocyte # 0.87 X10^3/ul (4.0); Lymphocyte % 16.6 % (19-41); Mean Corp Hgb Conc 29.5 g/dL (32-36); Mean Corpuscular Volume 105.2 fL (80-94); Mean Platelet Vol. 11.3 fl (6.2-12.0); Monocyte# 0.65 X10^3/uL; Monocyte% 12.4 % (0-10); NRBC Flagged by Analyzer 0 % (0-5); Neutrophil # 3.31 X10^3/uL (2.7-7.7); Neutrophil % 63.2 % (47-70); POSITIVE COUNT YES; Platelet Count 60 K/mm3 (150-450); RBC Distribution Width CV 16.4 % (11.6-14.6); RBC Distribution Width SD 62.8 fl (35.1-43.9); Red Blood Count 2.48 M/mm3 (4.6-6.2); White Blood Count 5.2 K/mm3 (4.4-11.0)
[2020-01-30 05:55] LABS: Differential Indicated SCAN CRITERIA MET
[2020-01-30 06:03] LABS: Anion Gap 5 (5-15); BUN 42 mg/dL (7-18); BUN/Creat Ratio 12.7 RATIO (10-20); Calcium,Total 8.3 mg/dL (8.5-10.1); Chloride 105 mmol/L (98-107); Creatinine, Serum 3.31 mg/dL (0.70-1.30); EST Glomerular Filtration Rate 20 mL/min (>60); Est Glom Filt Rate - Afr Amer 24 mL/min (>60); Estimated Creatinine Clearance 21.44 ml/min; Glucose 107 mg/dL (74-106); Potassium 3.7 mmol/L (3.5-5.1); Sodium Level 139 mmol/L (136-145)
[2020-01-30 06:14] LABS: Magnesium 2.1 mg/dL (1.6-2.6)
[2020-01-30 06:33] LABS: Anisocytosis 1+; Macrocytosis 1+; Platelet Estimate MOD DEC (ADEQ)
[2020-01-30 07:06] LABS: Bedside Glucose 116 mg/dL (70-110)
[2020-01-30] MEDS: Menthol/Lanolin/Calamine/Znox 113 GM Tube 1 APPLIC TOPICAL ×2 (10:13→21:42)
[2020-01-30] MEDS: Heparin Injection (Vial) 5,000 UNIT/ML VIAL 5000 UNIT SC ×2 (10:13→21:41)
--- NOTE | 2020-01-30 10:51 | PN_ITS ---
<Bob Lugo - Last Filed: 01/30/20 10:51> Patient Problems: Active and Suspected Problems (Last Reviewed 01/27/20 @ 12:[address] Orville Blackwell MD) Vascular catheter fitting or adjustment (Acute) Reason for Visit: DEEPTI, cellulitis Subjective: Pt resting comfortably in bed NAD. Tolerated dialysis better yesterday. Nephro holding off dialysis today. Improvement in LE edema. No SOB/cough. No confusion this AM. Lethargy improved. No fever/chills. Plan is for SNF tomorrow. Vitals/I&O's: Vital Signs Temp Pulse Resp BP Pulse Ox 98.3 F 90 18 98/40 L 98 01/30/20 06:43 01/30/20 06:55 01/30/20 06:43 01/30/20 06:43 01/30/20 07:35 Oxygen Flow Rate (L/min) 2 Oxygen Delivery Method Nasal Cannula Weight: 296 lb 8.348 oz Body Mass Index (BMI) 42.9 Intake and Output for Last 24 Hours 01/28/20 01/29/20 01/30/20 23:59 23:59 23:59 Intake Total 1278.75 / 1398.75 770 / 770 120 / 120 Output Total 150 / 150 2385 / 2385 50 / 50 Balance 1128.75 / 1248.75 -1615 / -1615 70 / 70 General: Alert, Oriented x3, Cooperative HEENT: Atraumatic, PERRLA, EOMI, Normocephalic Neck: Supple, No JVD, Negative Carotid Bruits Lungs: Clear to auscultation, Normal air movement Cardiovascular: Regular rate, No murmurs Abdomen: Bowel Sounds Present, Soft, Non Tender, Obese Extremities: Capillary Refill Less than 3 Seconds, Edema - 2+ pitting edema BLE Skin: No rashes, No breakdown Musculoskeletal: No Tenderness to Palpation of Joints or Extremities Neurological: Cranial nerves II-XII grossly intact Psych/Mental Status: Normal Affect, Appropriate, Alert and oriented to time, place, person, mood and affect Microbiology Past 72 Hours 01/26/20 09:35 Wound - Leg, Left Gram Stain - Final 01/26/20 09:35 Wound - Leg, Left Wound Culture - Final Pseudomonas aeroginosa Citrobacter species Corynebacterium striatum 01/28/20 04:10 Stool C. difficile DNA Amplification - Final 01/25/20 15:05 Blood Culture (Wb) - Anticubital Right Blood Culture - Preliminary No growth in 48 hours. 01/25/20 14:55 Blood Culture (Wb) - Anticubital Left Blood Culture - Preliminary No growth in 48 hours. Laboratory Results 01/29/20 12:58: POC Glucose 99 01/29/20 16:39: POC Glucose 90 01/29/20 22:22: POC Glucose 78 01/30/20 05:20: WBC 5.2, RBC 2.48 L, Hgb 7.7 L, Hct 26.1 L, MCV 105.2 H, MCH 31.0, MCHC 29.5 L, RDW Std Deviation 62.8 H, RDW Coeff of Inocencio 16.4 H, Plt Count 60 L, MPV 11.3, Immature Gran % (Auto) 1.100 H, Neut % (Auto) 63.2, Lymph % (Auto) 16.6 L, [place] % (Auto) 12.4 H, Eos % (Auto) 6.3 H, Baso % (Auto) 0.4, Absolute Neuts (auto) 3.3, Absolute Lymphs (auto) 0.87, Nucleated RBC % 0, Platelet Estimate MOD DEC, Anisocytosis 1+, Macrocytosis 1+ 01/30/20 05:20: Sodium 139, Potassium 3.7, Chloride 105, Carbon Dioxide 29.0, Anion Gap 5, BUN 42 H, Creatinine 3.31 H, Estim Creat Clear Calc 21.44, Est GFR (MDRD) Af Amer 24 L, Est GFR (MDRD) Non-Af 20 L, BUN/Creatinine Ratio 12.7, Glucose 107 H, Calcium 8.3 L 01/30/20 05:20: Magnesium 2.1 01/30/20 06:43: POC Glucose 116 H Current Medications Acetaminophen (Tylenol) 650 mg PO Q6H PRN PRN PRN Reason: Pain Score 1-10/Temp > 100.7 F Albuterol Sulfate (Ventolin Aerosols) 2.5 mg INHALATION Q2H PRN PRN PRN Reason: SOB/Wheezing Last Admin: 01/27/20 23:31 Dose: 2.5 mg Documented by: Atorvastatin Calcium (Lipitor) 20 mg PO QHS DONNA Last Admin: 01/29/20 22:29 Dose: 20 mg Documented by: Calamine/Phenol (Calmoseptine Ointment) 1 applic TOPICAL BID [facility]; Protocol Last Admin: 01/30/20 10:13 Dose: 1 applicatio Documented by: Carvedilol (Coreg) 6.25 mg PO BID [facility] Last Admin: 01/30/20 09:15 Dose: Not Given Documented by: Ferrous Sulfate (Ferrous Sulfate) 325 mg PO DAILY@1200 [facility] Last Admin: 01/29/20 13:00 Dose: 325 mg Documented by: Heparin Sodium (Porcine) (Heparin Na) 5,000 unit SC Q12 [facility] Last Admin: 01/30/20 10:13 Dose: 5,000 unit Documented by: Meropenem 1 gm/ Sodium (Chloride) 120 mls @ 33 mls/hr IV Q24H [facility] Last Infusion: 01/29/20 23:29 Dose: Infused Documented by: Insulin Human Lispro (Humalog Kwikpen (Bkc)) 0 unit SC ACHS [facility]; Protocol Last Admin: 01/30/20 06:49 Dose: Not Given Documented by: Melatonin (Melatonin) 3 mg PO QHS PRN PRN Reason: INSOMNIA Last Admin: 01/26/20 22:33 Dose: 3 mg Documented by: Ondansetron HCl (Zofran) 4 mg IV Q8H PRN PRN PRN Reason: NAUSEA/VOMITING Oxycodone HCl (Oxyir) 5 mg PO Q4H PRN PRN PRN Reason: Pain Score 4-10/10 Last Admin: 01/26/20 10:15 Dose: 5 mg Documented by: Sodium Chloride () 10 - 40 ml IV UD PRN PRN Reason: SALINE FLUSH Last Admin: 01/29/20 19:50 Dose: 10 ml Documented by: STROKE Vital Signs/Narrative: Vital Signs Pulse Pulse Ox 01/30/20 07:35 98 01/30/20 06:55 90 Medical Necessity - Tobacco Use Smoking Status: Former smoker Tobacco Use: Cigars Assessment/Plan All Active Problems (Last Reviewed 01/27/20 @ 12:[address] Orville Blackwell MD) Debility (Acute) Venous stasis dermatitis (Acute) Vascular catheter fitting or adjustment (Acute) DEEPTI (acute kidney injury) (Acute) Acute respiratory failure (Resolved) 1. DEEPTI - Neprhology following. Pt on 2lpm, no SOB. Recent echo with preserved EF. -Dialysis yesterday -Some encephalopathy following dialysis. -Hep B core total Ab pending. Otherwise hep panel negative. 2. Anemia of chronic disease likely due to above, and hx iron deficiency - Stable at this time. No need for transfusion today. Continue PO iron. Iron 26, TIBC 189, ferritin 511. Epoetin x1 given. IV iron ordered per nephrology. 3. Venous stasis dermatitis / BL LE cellulitis- MRSA negative. Hx pseudomonas. Dopplers neg for DVT. Based on Cx with Pseudomonas and resistant Citrobacter, abx changed to meropenem yesterday. Consult ID tomorrow as pt will likely need IV abx at dc. 4. COPD - no exacerbation- continue current therapy. 5. Hx AV stenosis 6. HLD -statin 7. Uncontrolled DMt2 with neuropathy, nephropathy, morbid obesity - last A1C 5.5, SSI, inside account representative consult. 8. HERNÁN - on home Bipap 9. Thrombocytopenia - stable, trend. DVT ppx: heparin, monitor platelets. DC planning: SNF. Check with ID in the AM concerning possible need for IV abx. This patient was seen by Bob Lugo PA-C under the supervision of Doctor Meghna. <Rudy Coffman F - Last Filed: 01/30/20 12:58> Vitals/I&O's: Vital Signs Temp Pulse Resp BP Pulse Ox 98.3 F 90 18 98/40 L 98 01/30/20 06:43 01/30/20 06:55 01/30/20 06:43 01/30/20 06:43 01/30/20 07:35 Oxygen Flow Rate (L/min) 2 Oxygen Delivery Method Nasal Cannula Weight: 296 lb 8.348 oz Body Mass Index (BMI) 42.9 Intake and Output for Last 24 Hours 01/28/20 01/29/20 01/30/20 23:59 23:59 23:59 Intake Total 1278.75 / 1398.75 770 / 770 120 / 120 Output Total 150 / 150 2385 / 2385 50 / 50 Balance 1128.75 / 1248.75 -1615 / -1615 70 / 70 Microbiology Past 72 Hours 01/26/20 09:35 Wound - Leg, Left Gram Stain - Final 01/26/20 09:35 Wound - Leg, Left Wound Culture - Final Pseudomonas aeroginosa Citrobacter species Corynebacterium striatum 01/28/20 04:10 Stool C. difficile DNA Amplification - Final 01/25/20 15:05 Blood Culture (Wb) - Anticubital Right Blood Culture - Preliminary No growth in 48 hours. 01/25/20 14:55 Blood Culture (Wb) - Anticubital Left Blood Culture - Preliminary No growth in 48 hours. Laboratory Results 01/29/20 12:58: POC Glucose 99 01/29/20 16:39: POC Glucose 90 01/29/20 22:22: POC Glucose 78 01/30/20 05:20: WBC 5.2, RBC 2.48 L, Hgb 7.7 L, Hct 26.1 L, MCV 105.2 H, MCH 31.0, MCHC 29.5 L, RDW Std Deviation 62.8 H, RDW Coeff of Inocencio 16.4 H, Plt Count 60 L, MPV 11.3, Immature Gran % (Auto) 1.100 H, Neut % (Auto) 63.2, Lymph % (Auto) 16.6 L, [place] % (Auto) 12.4 H, Eos % (Auto) 6.3 H, Baso % (Auto) 0.4, Absolute Neuts (auto) 3.3, Absolute Lymphs (auto) 0.87, Nucleated RBC % 0, Platelet Estimate MOD DEC, Anisocytosis 1+, Macrocytosis 1+ 01/30/20 05:20: Sodium 139, Potassium 3.7, Chloride 105, Carbon Dioxide 29.0, Anion Gap 5, BUN 42 H, Creatinine 3.31 H, Estim Creat Clear Calc 21.44, Est GFR (MDRD) Af Amer 24 L, Est GFR (MDRD) Non-Af 20 L, BUN/Creatinine Ratio 12.7, Glucose 107 H, Calcium 8.3 L 01/30/20 05:20: Magnesium 2.1 01/30/20 06:43: POC Glucose 116 H 01/30/20 11:23: POC Glucose 103 Current Medications Acetaminophen (Tylenol) 650 mg PO Q6H PRN PRN PRN Reason: Pain Score 1-10/Temp > 100.7 F Albuterol Sulfate (Ventolin Aerosols) 2.5 mg INHALATION Q2H PRN PRN PRN Reason: SOB/Wheezing Last Admin: 01/27/20 23:31 Dose: 2.5 mg Documented by: Atorvastatin Calcium (Lipitor) 20 mg PO QHS [facility] Last Admin: 01/29/20 22:29 Dose: 20 mg Documented by: Calamine/Phenol (Calmoseptine Ointment) 1 applic TOPICAL BID [facility]; Protocol Last Admin: 01/30/20 10:13 Dose: 1 applicatio Documented by: Carvedilol (Coreg) 6.25 mg PO BID [facility] Last Admin: 01/30/20 09:15 Dose: Not Given Documented by: Ferrous Sulfate (Ferrous Sulfate) 325 mg PO DAILY@1200 [facility] Last Admin: 01/30/20 11:24 Dose: 325 mg Documented by: Heparin Sodium (Porcine) (Heparin Na) 5,000 unit SC Q12 [facility] Last Admin: 01/30/20 10:13 Dose: 5,000 unit Documented by: Meropenem 1 gm/ Sodium (Chloride) 120 mls @ 33 mls/hr IV Q24H [facility] Last Infusion: 01/29/20 23:29 Dose: Infused Documented by: Insulin Human Lispro (Humalog Kwikpen (Bkc)) 0 unit SC ACHS [facility]; Protocol Last Admin: 01/30/20 11:24 Dose: Not Given Documented by: Melatonin (Melatonin) 3 mg PO QHS PRN PRN Reason: INSOMNIA Last Admin: 01/26/20 22:33 Dose: 3 mg Documented by: Ondansetron HCl (Zofran) 4 mg IV Q8H PRN PRN PRN Reason: NAUSEA/VOMITING Oxycodone HCl (Oxyir) 5 mg PO Q4H PRN PRN PRN Reason: Pain Score 4-10/10 Last Admin: 01/26/20 10:15 Dose: 5 mg Documented by: Sodium Chloride () 10 - 40 ml IV UD PRN PRN Reason: SALINE FLUSH Last Admin: 01/29/20 19:50 Dose: 10 ml Documented by: Addendum: Dr. Coffman I personally examined the patient and reviewed the chart. I agree with the above. 69-year-old male presenting with DEEPTI on CKD 4 as well as lower extremity venous stasis and possible worsening wound infection. We will continue with IV vancomycin and cefepime and appreciate nephrology's assistance. He may need to be on dialysis at some point we will continue to hold his Lasix and provide gentle IV fluids. Previous wound culture in August with Pseudomonas, Klebsiella, E. coli, Streptococcus G, corynebacterium. Current wound cultures are pending. 01/27/2020: Still with poor urine output though he feels little bit better today. Denies any shortness of breath or chest pain and is currently on oxygen. He did agree to have dialysis today therefore surgery was consulted to place a tunneled catheter for dialysis. Discussed the issues with case management about finding him a group home that will also allow him to do dialysis. Wound c nazario is growing a gram-negative debby therefore we will continue with his current antibiotics. 01/28/2020: Doing well today no issues overnight. He tolerated catheter insertio n well and should be able to undergo dialysis this evening. He will also receive dialysis tomorrow and then hopefully could be transitioned to outpatient dialysis at the facility. His wound cultures are growing gram-negative rods and gram-positive organism therefore he will be continued on his cefepime and vancomycin for now, as this covers the previous organisms that he had grown from the wound. Appreciate nephrology's assistance as well as general surgery for inserting the dialysis catheter. 01/29/2020: Has some confusion last night after dialysis. He was running even on his first 3-hour hemodialysis. He will undergo dialysis again today. Seems to feel little bit better today compared to his previous days. We did get culture data back and he is growing a Pseudomonas and the Citrobacter, unfortunately the Citrobacter is resistant to cefepime therefore he was transitioned to meropenem for his leg wound. We will continue with iron supplementation as well he was given a dose of iron this morning via IV and then was placed on oral replacement. He was also given a dose of EPO by nephrology yesterday evening after dialysis. 01/30/2020: Feels better today after his last dialysis. Lower extremity edema is improving and therefore nephrology has held off of dialysis today. We did transition his antibiotics to meropenem based on sensitivities therefore will consult infectious disease as he will likely need to be discharged on IV antibiotics to nursing home facility. Inpatient E&M: 69857 Subs Hosp L2
[2020-01-30] MEDS: Ferrous Sulfate 325 MG Tablet PO (11:24)
[2020-01-30 11:50] LABS: Bedside Glucose 103 mg/dL (70-110)
[2020-01-30 14:06] LABS: Transferrin 151 mg/dL (177-329)
[2020-01-30 16:32] LABS: Hepatitis B Core Ab Total Negative (Negative)
[2020-01-30 17:06] LABS: Bedside Glucose 96 mg/dL (70-110)
[2020-01-30] MEDS: Atorvastatin Calcium 20 MG Tablet PO (21:42)
[2020-01-30 21:46] LABS: Bedside Glucose 87 mg/dL (70-110)
[2020-01-31] VITALS (10 sets, daily range): BP systolic 102–134; BP diastolic 42–55; PULSE 88–96; RESP 16–18; TEMP 36.7–37; O2SAT 94–100
[2020-01-31 06:08] LABS: Absolute Lymphocyte Count 1.05 X10^3/uL (0.83-4.51); Absolute Neutrophil Count 4.3 X10^3/uL (2.0-7.7); Basophil# 0.02 X10^3/uL; Basophil% 0.3 % (0-1); Eosinophil# 0.32 X10^3/uL; Eosinophils% 4.9 % (0-5); Hematocrit 27.8 % (40-54); Hemoglobin 8.3 g/dL (13.0-16.5); Lymphocyte # 1.05 X10^3/ul (4.0); Mean Corp Hgb Conc 29.9 g/dL (32-36); Mean Corpuscular Hgb 31.4 pg (27.0-32.0); Mean Corpuscular Volume 105.3 fL (80-94); Mean Platelet Vol. 12.5 fl (6.2-12.0); Monocyte# 0.81 X10^3/uL; Monocyte% 12.4 % (0-10); NRBC Flagged by Analyzer 0 % (0-5); Neutrophil # 4.29 X10^3/uL (2.7-7.7); Neutrophil % 65.5 % (47-70); POSITIVE COUNT YES; Platelet Count 77 K/mm3 (150-450); RBC Distribution Width CV 16.3 % (11.6-14.6); RBC Distribution Width SD 63.7 fl (35.1-43.9); Red Blood Count 2.64 M/mm3 (4.6-6.2); White Blood Count 6.6 K/mm3 (4.4-11.0)
[2020-01-31 06:36] LABS: Anion Gap 6 (5-15); BUN 47 mg/dL (7-18); BUN/Creat Ratio 12.1 RATIO (10-20); Calcium,Total 8.8 mg/dL (8.5-10.1); Chloride 105 mmol/L (98-107); Creatinine, Serum 3.89 mg/dL (0.70-1.30); EST Glomerular Filtration Rate 16 mL/min (>60); Est Glom Filt Rate - Afr Amer 20 mL/min (>60); Estimated Creatinine Clearance 18.24 ml/min; Glucose 96 mg/dL (74-106); Potassium 3.7 mmol/L (3.5-5.1); Sodium Level 139 mmol/L (136-145)
[2020-01-31 06:45] LABS: Bedside Glucose 97 mg/dL (70-110)
[2020-01-31] MEDS: Heparin Injection (Vial) 5,000 UNIT/ML VIAL 5000 UNIT SC (09:50)
[2020-01-31] MEDS: Menthol/Lanolin/Calamine/Znox 113 GM Tube 1 APPLIC TOPICAL (10:00)
--- NOTE | 2020-01-31 10:16 | NURSING ---
wound photo: right lower leg
--- NOTE | 2020-01-31 10:17 | NURSING ---
wound photo: left lower leg
--- NOTE | 2020-01-31 11:46 | TREXTCA.CO_ITS ---
<Bob Lugo - Last Filed: 01/31/20 11:46> - Diet 01/26/20 09:27 Diet: Carbohydrate Controlled Food consistency:: Regular Liquid Consistency:: Regular/Thin Dietary Modifications:: Potassium Restricted Cardiac / Heart Healthy Sodium Restricted Phosphorus Restricted Is pt able to select menu?: Yes Fluid restriction:: 1500 mL - Routine Orders/Code Status Suppository Type: Dulcolax 10mg Suppository Frequency: Daily PRN Routine Lab Work: CBC - 3 days, BMP - 3 days Code Status: Full Code - Wound(s) LEFT LEG Wound Type: Stasis Ulcer BLE Wound Type: stasis dermatitis Dressing Change: Adaptic NECK LEFT Wound Type: Surgical Incision - Therapies Physical Therapy: Eval and Treat Occupational Therapy: Eval and Treat - Problem/Diagnosis (1) Cellulitis Status: Acute Current Visit: Yes (2) DEEPTI (acute kidney injury) Status: Acute Current Visit: No (3) Debility Status: Chronic Current Visit: No (4) HERNÁN (obstructive sleep apnea) Status: Chronic Current Visit: No (5) Type 2 diabetes mellitus Status: Chronic Current Visit: No - Allergies/Procedures Done in Hospital Allergies/Adverse Reactions: Allergies No Known Allergies Allergy (Verified 01/25/20 14:26) Procedures: Dialysis - Type of Care/Length of Stay Estimated LOS: Convalescent Care Less Than 30 days Type of Care Needed: Skilled Rehab Potential: Fair Prognosis: Fair - Additional Orders/Day of Discharge Day of Discharge: 01/31/20 - Dietary and Speech Recommendations Dietitian Recommendations/Changes: Will add 1500 ml FR/sodium-restricted/phos- restricted to current diet order of Consistent CHO/Cardiac, w/ potassium restriction. - Follow Up Care Primary Care Physician: Han Adrian MD [Primary Care Provider] - Please follow up with your Primary Care Physician in: 2 weeks Please Follow Up With: Ynes Mcleod DO - Dialysis When: As directed <Mark Thrasher - Last Filed: 01/31/20 14:45> - Diet 01/26/20 09:27 Diet: Carbohydrate Controlled Food consistency:: Regular Liquid Consistency:: Regular/Thin Dietary Modifications:: Potassium Restricted Cardiac / Heart Healthy Sodium Restricted Phosphorus Restricted Is pt able to select menu?: Yes Fluid restriction:: 1500 mL - Follow Up Care Please Follow Up With: José Schulte MD When: as needed for antibiotic issues or side effects
--- NOTE | 2020-01-31 11:59 | PHA.DC.MR ---
Pharmacy Service has performed discharge medication reconciliation for this patient upon transfer to [facility]. The patient's discharge medication list was reviewed for discrepancies and discrepancies were resolved. Home Medications Ascorbic Acid [Vitamin C] 500 mg PO DAILY 03/08/17 allopurinol 300 mg tablet 300 mg PO DAILY 08/23/19 cholecalciferol (vitamin D3) 125 mcg (5,000 unit) capsule 125 mcg PO DAILY 08/23/19 cyanocobalamin (vitamin B-12) 1,000 mcg capsule 1,000 mcg PO DAILY 08/24/19 omega-3 fatty acids 1,000 mg capsule 1,000 mg PO DAILY 08/24/19 Simvastatin 40 mg PO QHS 10/06/19 Ferrous Sulfate 325 mg PO DAILY 12/16/19 Nystatin Powder [Mycostatin Powder] 1 applic TOPICAL TID 12/19/19 Menthol/Lanolin/Calamine/Znox [Calmoseptine Ointment] 1 applic TOPICAL BID tube 01/31/20
[2020-01-31] MEDS: Ferrous Sulfate 325 MG Tablet PO (12:04)
--- NOTE | 2020-01-31 12:12 | PCM.PN.REN ---
Patient Problems: Active and Suspected Problems (Last Reviewed 01/27/20 @ 12:[address] Orville Blackwell MD) Vascular catheter fitting or adjustment (Acute) Cellulitis (Acute) Subjective: received 2nd dialysis Sat with 2L removed. BP low. Edema persists BLE but improved. Doing well. Dialysis arranged at outpt clinic TTS-first shift - Physical Exam Vitals/I&O's: Vital Signs Temp Pulse Resp BP Pulse Ox 98.0 F 94 16 130/55 H 94 01/31/20 07:50 01/31/20 10:09 01/31/20 10:09 01/31/20 07:50 01/31/20 10:57 Oxygen Flow Rate (L/min) 2 Oxygen Delivery Method Nasal Cannula Weight: 130.4 kg Body Mass Index (BMI) 42.9 Intake and Output for Last 24 Hours 01/29/20 01/30/20 01/31/20 23:59 23:59 23:59 Intake Total 770 / 770 580 / 580 610 / 610 Output Total 2385 / 2385 260 / 260 100 / 100 Balance -1615 / -1615 320 / 320 510 / 510 General: Alert, Oriented x3, Cooperative, No apparent distress Lungs: Clear to auscultation Cardiovascular: Regular rate Abdomen: Obese Extremities: Edema, - - legs werapped Microbiology Past 72 Hours 01/25/20 15:05 Blood Culture (Wb) - Anticubital Right Blood Culture - Final No growth in 5 days. 01/25/20 14:55 Blood Culture (Wb) - Anticubital Left Blood Culture - Final No growth in 5 days. 01/26/20 09:35 Wound - Leg, Left Gram Stain - Final 01/26/20 09:35 Wound - Leg, Left Wound Culture - Final Pseudomonas aeroginosa Citrobacter species Corynebacterium striatum Laboratory Results 01/28/20 18:25: Transferrin 151 L, Hep B Core Total Ab Negative 01/30/20 16:44: POC Glucose 96 01/30/20 21:39: POC Glucose 87 01/31/20 05:40: WBC 6.6, RBC 2.64 L, Hgb 8.3 L, Hct 27.8 L, MCV 105.3 H, MCH 31.4, MCHC 29.9 L, RDW Std Deviation 63.7 H, RDW Coeff of Inocencio 16.3 H, Plt Count 77 L, MPV 12.5 H, Immature Gran % (Auto) 0.900, Neut % (Auto) 65.5, Lymph % (Auto) 16.0 L, [place] % (Auto) 12.4 H, Eos % (Auto) 4.9, Baso % (Auto) 0.3, Absolute Neuts (auto) 4.3, Absolute Lymphs (auto) 1.05, Nucleated RBC % 0 01/31/20 05:40: Sodium 139, Potassium 3.7, Chloride 105, Carbon Dioxide 28.0, Anion Gap 6, BUN 47 H, Creatinine 3.89 H, Estim Creat Clear Calc 18.24, Est GFR (MDRD) Af Amer 20 L, Est GFR (MDRD) Non-Af 16 L, BUN/Creatinine Ratio 12.1, Glucose 96, Calcium 8.8 01/31/20 06:39: POC Glucose 97 Current Medications Acetaminophen (Tylenol) 650 mg PO Q6H PRN PRN PRN Reason: Pain Score 1-10/Temp > 100.7 F Albuterol Sulfate (Ventolin Aerosols) 2.5 mg INHALATION Q2H PRN PRN PRN Reason: SOB/Wheezing Last Admin: 01/27/20 23:31 Dose: 2.5 mg Documented by: Atorvastatin Calcium (Lipitor) 20 mg PO QHS [facility] Last Admin: 01/30/20 21:42 Dose: 20 mg Documented by: Calamine/Phenol (Calmoseptine Ointment) 1 applic TOPICAL BID [facility]; Protocol Last Admin: 01/31/20 10:00 Dose: 1 applicatio Documented by: Ferrous Sulfate (Ferrous Sulfate) 325 mg PO DAILY@1200 [facility] Last Admin: 01/31/20 12:04 Dose: 325 mg Documented by: Heparin Sodium (Porcine) (Heparin Na) 5,000 unit SC Q12 [facility] Last Admin: 01/31/20 09:50 Dose: 5,000 unit Documented by: Meropenem 1 gm/ Sodium (Chloride) 120 mls @ 33 mls/hr IV Q24H [facility] Last Infusion: 01/30/20 18:05 Dose: Infused Documented by: Insulin Human Lispro (Humalog Kwikpen (Bkc)) 0 unit SC ACHS [facility]; Protocol Last Admin: 01/31/20 12:04 Dose: Not Given Documented by: Melatonin (Melatonin) 3 mg PO QHS PRN PRN Reason: INSOMNIA Last Admin: 01/26/20 22:33 Dose: 3 mg Documented by: Ondansetron HCl (Zofran) 4 mg IV Q8H PRN PRN PRN Reason: NAUSEA/VOMITING Oxycodone HCl (Oxyir) 5 mg PO Q4H PRN PRN PRN Reason: Pain Score 4-10/10 Last Admin: 01/26/20 10:15 Dose: 5 mg Documented by: Sodium Chloride () 10 - 40 ml IV UD PRN PRN Reason: SALINE FLUSH Last Admin: 01/29/20 19:50 Dose: 10 ml Documented by: Medical Necessity - Tobacco Use Smoking Status: Former smoker Tobacco Use: Cigars Assessment/Plan All Active Problems (Last Reviewed 01/27/20 @ 12:[address] Orville Blackwell MD) Venous stasis dermatitis (Acute) Vascular catheter fitting or adjustment (Acute) Cellulitis (Acute) DEEPTI (acute kidney injury) (Acute) Acute respiratory failure (Resolved) 1. Acute on CKD Stage 4. Continue with HD 3x/wk appt TTS first shift. Ok to DC to ECF today from renal standpoint. 2. Hyperkalemia add 2g K diet 3. Morbid obesity 4. Chronic venous stasis, cellulitis. Afebrile. 5. Gen weakness. [facility] primary service, case mgmt
[2020-01-31 12:41] LABS: Bedside Glucose 94 mg/dL (70-110)
--- NOTE | 2020-01-31 13:28 | DS.PCM_ITS ---
<Bob Lugo - Last Filed: 01/31/20 14:35> Discharge Date and Diagnosis - Problem List Patient Problems: Active and Suspected Problems (Last Reviewed 01/27/20 @ 12:[address] Orville Blackwell MD) Vascular catheter fitting or adjustment (Acute) Cellulitis (Acute) Date of Admission: 01/25/20 Date of Discharge: 01/31/20 - Primary Discharge Diagnosis Acute Problems: Active Problems (Last Reviewed 01/27/20 @ 12:[address] Orville Blackwell MD) DEEPTI on CKDIV Dialysis initiated BL LE cellulitis - P aeruginosa, Citrobacter with multiple drug resistance, C striatum - Secondary Discharge Diagnosis Chronic Problems: Chronic Problems (Last Reviewed 01/27/20 @ 12:[address] Orville Blackwell MD) CKD (chronic kidney disease), stage III (Chronic) Morbid obesity (Chronic) Chronic acquired lymphedema (Chronic) Debility (Chronic) Chronic diastolic (congestive) heart failure (Chronic) Nonrheumatic aortic (valve) stenosis (Chronic) Stage 3 severe COPD by GOLD classification (Chronic) Respiratory failure, chronic (Chronic) Obesity (Chronic) HERNÁN (obstructive sleep apnea) (Chronic) Ulcer of left lower extremity with fat layer exposed (Chronic) Ulcer of left foot (Chronic) Ulcer of right lower extremity with fat layer exposed (Chronic) Cardiac murmur (Chronic) Essential hypertension (Chronic) Gout (Chronic) Type 2 diabetes mellitus (Chronic) Iron deficiency anemia (Chronic) Hyperlipidemia (Chronic) Hospital Course and Treatment Imaging Results: RAD/Chest 1 View (Portable) IMPRESSION: Cardiomegaly and CHF. Blunting of both costophrenic angles. RAD/CXR for Line Placement IMPRESSION: The tip of the left dialysis catheter is at the junction of the superior vena cava and left brachiocephalic vein. CHF and blunting of both costophrenic angles. Cardiomegaly. Consultations 01/25/20 16:31 Consult: Onc/Wound/forging machine operator Routine Comment: venous stasis dermatitis Nephrology - Harsha Gen surgery - Rosalva Infectious Disease - Eris Operations: None Procedures: Central line placement, Dialysis Summary of Care Provided: Hospital Course: The patient is a 69 year old M with pmhx as above who presented to the ER with c.o worsening BL LE edema. He had recently been in the TCU but had been DCd home. He had been placed on Clindamycin as an o/p however had no improvement. He had foul smelling greenish discharge from his wounds and a hx of Pseudomonas cellulitis. Recent duplex was negative for DVTs. He had worsening renal failure and appeared cellulitic. He was admitted to PCU and placed on vanc/zosyn - wound care consulted, cultures obtained. Nephrology consulted for worsening renal failure. He had very poor urinary output and no improvement in renal function with conservative measures. Dr. Blackwell was consulted and a dialysis catheter was placed. Dialysis was initiated. He had some encephalopathy after the first round however this resolved and he tolerated the 2nd round. He had mild bradycardia and hypotension and coreg was discontinued - BP and pulse stable after this. He grew out Pseudomonas, Citrobacter, and Corynebacterium. Abx changed to Meropenem per the C&S. As he did not have an obvious oral option for his cellulitis Infectious disease was consulted for recommendation for Abx and duration of therapy. [facility] and will continue dialysis as directed by Dr. Mcleod. Routine follow up with PCP in 2 weeks. Continue daily wound dressing changes. Continue bipap qhs for HERNÁN. The patient was seen by Bob Lugo PA-C under the supervision of Dr. Thrasher. [] Patient Problems: Active and Suspected Problems (Last Reviewed 01/27/20 @ 12:[address] Orville Blackwell MD) Vascular catheter fitting or adjustment (Acute) Cellulitis (Acute) - Physical Exam Vitals/I&O's: Vital Signs Temp Pulse Resp BP Pulse Ox 98.1 F 91 16 104/42 L 99 01/31/20 12:13 01/31/20 12:29 01/31/20 12:13 01/31/20 12:13 01/31/20 12:13 Oxygen Flow Rate (L/min) 2 Oxygen Delivery Method Nasal Cannula Weight: 287 lb 7.724 oz Body Mass Index (BMI) 42.9 Intake and Output for Last 24 Hours 01/29/20 01/30/20 01/31/20 23:59 23:59 23:59 Intake Total 770 / 770 580 / 580 610 / 610 Output Total 2385 / 2385 260 / 260 100 / 100 Balance -1615 / -1615 320 / 320 510 / 510 General: Alert, Oriented x3, Cooperative HEENT: Atraumatic, PERRLA, EOMI, Normocephalic Neck: Supple, No JVD, Negative Carotid Bruits Lungs: Clear to auscultation, Normal air movement Cardiovascular: Regular rate, No murmurs Abdomen: Bowel Sounds Present, Soft, Non Tender, Obese Extremities: Capillary Refill Less than 3 Seconds, Edema Skin: No rashes, No breakdown Musculoskeletal: No Tenderness to Palpation of Joints or Extremities Neurological: Cranial nerves II-XII grossly intact Psych/Mental Status: Normal Affect, Appropriate, Alert and oriented to time, place, person, mood and affect Microbiology Past 72 Hours 01/25/20 15:05 Blood Culture (Wb) - Anticubital Right Blood Culture - Final No growth in 5 days. 01/25/20 14:55 Blood Culture (Wb) - Anticubital Left Blood Culture - Final No growth in 5 days. 01/26/20 09:35 Wound - Leg, Left Gram Stain - Final 01/26/20 09:35 Wound - Leg, Left Wound Culture - Final Pseudomonas aeroginosa Citrobacter species Corynebacterium striatum Laboratory Results 01/28/20 18:25: Transferrin 151 L, Hep B Core Total Ab Negative 01/30/20 16:44: POC Glucose 96 01/30/20 21:39: POC Glucose 87 01/31/20 05:40: WBC 6.6, RBC 2.64 L, Hgb 8.3 L, Hct 27.8 L, MCV 105.3 H, MCH 31.4, MCHC 29.9 L, RDW Std Deviation 63.7 H, RDW Coeff of Inocencio 16.3 H, Plt Count 77 L, MPV 12.5 H, Immature Gran % (Auto) 0.900, Neut % (Auto) 65.5, Lymph % (Auto) 16.0 L, [place] % (Auto) 12.4 H, Eos % (Auto) 4.9, Baso % (Auto) 0.3, Absolute Neuts (auto) 4.3, Absolute Lymphs (auto) 1.05, Nucleated RBC % 0 01/31/20 05:40: Sodium 139, Potassium 3.7, Chloride 105, Carbon Dioxide 28.0, Anion Gap 6, BUN 47 H, Creatinine 3.89 H, Estim Creat Clear Calc 18.24, Est GFR (MDRD) Af Amer 20 L, Est GFR (MDRD) Non-Af 16 L, BUN/Creatinine Ratio 12.1, Glucose 96, Calcium 8.8 01/31/20 06:39: POC Glucose 97 01/31/20 12:03: POC Glucose 94 Current Medications Acetaminophen (Tylenol) 650 mg PO Q6H PRN PRN PRN Reason: Pain Score 1-10/Temp > 100.7 F Albuterol Sulfate (Ventolin Aerosols) 2.5 mg INHALATION Q2H PRN PRN PRN Reason: SOB/Wheezing Last Admin: 01/27/20 23:31 Dose: 2.5 mg Documented by: Atorvastatin Calcium (Lipitor) 20 mg PO QHS [facility] Last Admin: 01/30/20 21:42 Dose: 20 mg Documented by: Calamine/Phenol (Calmoseptine Ointment) 1 applic TOPICAL BID [facility]; Protocol Last Admin: 01/31/20 10:00 Dose: 1 applicatio Documented by: Ferrous Sulfate (Ferrous Sulfate) 325 mg PO DAILY@1200 [facility] Last Admin: 01/31/20 12:04 Dose: 325 mg Documented by: Heparin Sodium (Porcine) (Heparin Na) 5,000 unit SC Q12 [facility] Last Admin: 01/31/20 09:50 Dose: 5,000 unit Documented by: Meropenem 1 gm/ Sodium (Chloride) 120 mls @ 33 mls/hr IV Q24H [facility] Last Infusion: 01/30/20 18:05 Dose: Infused Documented by: Insulin Human Lispro (Humalog Kwikpen (Bkc)) 0 unit SC ACHS [facility]; Protocol Last Admin: 01/31/20 12:04 Dose: Not Given Documented by: Melatonin (Melatonin) 3 mg PO QHS PRN PRN Reason: INSOMNIA Last Admin: 01/26/20 22:33 Dose: 3 mg Documented by: Ondansetron HCl (Zofran) 4 mg IV Q8H PRN PRN PRN Reason: NAUSEA/VOMITING Oxycodone HCl (Oxyir) 5 mg PO Q4H PRN PRN PRN Reason: Pain Score 4-10/10 Last Admin: 01/26/20 10:15 Dose: 5 mg Documented by: Sodium Chloride () 10 - 40 ml IV UD PRN PRN Reason: SALINE FLUSH Last Admin: 01/29/20 19:50 Dose: 10 ml Documented by: Discharge Diet: Low fat/ Low Cholesterol, 1800 Calorie Control Diet, 2000 mg Sodium Diet, Renal Diet Discharge Activity: Return to Normal Activity Home Medications: Medications to take at Discharge Ascorbic Acid [Vitamin C] 500 mg PO DAILY 03/08/17 allopurinol 300 mg tablet 300 mg PO DAILY 08/23/19 cholecalciferol (vitamin D3) 125 mcg (5,000 unit) capsule 125 mcg PO DAILY 08/23/19 cyanocobalamin (vitamin B-12) 1,000 mcg capsule 1,000 mcg PO DAILY 08/24/19 omega-3 fatty acids 1,000 mg capsule 1,000 mg PO DAILY 08/24/19 Simvastatin 40 mg PO QHS 10/06/19 Ferrous Sulfate 325 mg PO DAILY 12/16/19 Nystatin Powder [Mycostatin Powder] 1 applic TOPICAL TID 12/19/19 Menthol/Lanolin/Calamine/Znox [Calmoseptine Ointment] 1 applic TOPICAL BID tube 01/31/20 Meropenem 500 mg IV DAILY #7 vial 01/31/20 Following Prescriptions Were Given to Patient: Meropenem 500 mg IV DAILY #7 vial Prescription Printed Primary Care Physician: Han Adrian MD [Primary Care Provider] - Please follow up with your Primary Care Physician in: 2 weeks Please Follow Up With: Ynes Mcleod DO - Dialysis When: As directed Disposition: Long-Term facility Minutes spent on discharge:: 35 Patient Condition:: Stable Medical Necessity - Tobacco Use Smoking Status: Former smoker Tobacco Use: Cigars Meaningful Use Info Meaningful Use Diagnoses (Choose all that apply): None applicable <Mark Thrasher - Last Filed: 01/31/20 15:13> Discharge Date and Diagnosis - Primary Discharge Diagnosis Acute Problems: Active Problems (Last Reviewed 01/27/20 @ 12:[address] Orville Blackwell MD) Vascular catheter fitting or adjustment (Acute) Cellulitis (Acute) - Secondary Discharge Diagnosis Chronic Problems: Chronic Problems (Last Reviewed 01/27/20 @ 12:[address] Orville Blackwell MD) CKD (chronic kidney disease), stage III (Chronic) Morbid obesity (Chronic) Chronic acquired lymphedema (Chronic) Debility (Chronic) Chronic diastolic (congestive) heart failure (Chronic) Nonrheumatic aortic (valve) stenosis (Chronic) Stage 3 severe COPD by GOLD classification (Chronic) Respiratory failure, chronic (Chronic) Obesity (Chronic) HERNÁN (obstructive sleep apnea) (Chronic) Ulcer of left lower extremity with fat layer exposed (Chronic) Ulcer of left foot (Chronic) Ulcer of right lower extremity with fat layer exposed (Chronic) Cardiac murmur (Chronic) Essential hypertension (Chronic) Gout (Chronic) Type 2 diabetes mellitus (Chronic) Iron deficiency anemia (Chronic) Hyperlipidemia (Chronic) Hospital Course and Treatment Consultations 01/25/20 16:31 Consult: Onc/Wound/forging machine operator Routine Comment: venous stasis dermatitis Summary of Care Provided: This patient was seen in conjunction with Bob PALOMO. I have independently interviewed and examined the patient and reviewed pertinent history, examination findings, laboratory and plan of management. I have reviewed the note and agree with the documented findings with the few additional points. In brief, patient is admitted for bilateral lower extremity edema, rash, weeping area, greenish discharge from wounds with maceration with outpatient failure of p.o. clindamycin. Patient history of Pseudomonas cellulitis. Left leg wound grew pseudomonas aeruginosa, 3+, MDR Citrobacter 3+ corynebacterium stratum 3+ and sensitivity issues resistant to many, antibiotics. ID was consulted. Initially patient was Vanco Zosyn and then antibiotic was changed to meropenem. Patient is being discharged on meropenem. Patient also had acute kidney injury on CKD stage IV for which he is a started on dialysis 3 times a week TTS. Manager Front Office was consulted. Patient has permacath. Patient also had episodes of bradycardia and hypotension for which Coreg was discontinued and blood pressure and heart rate are stable. Discharge medication reconciliation done. Discharge follow-up instructions completed. Discharge process discussed with the patient and all questions were answered to patient's satisfaction. Patient is being discharged to ECF. Total time spent, exact 35 minutes on discharge meds reconciliation, examination, coordination of care with nurses and ancillary staff, review of imaging and blood test and discussion with the patient on follow-up instructions I have discussed my assessment with Bob PALOMO and orders have been reviewed. [] Objective: Seen and examined. Patient has been dialyzed. He also has bilateral lower extremity cellulitis for which he is on IV meropenem. No fever or chills. Blood pressure is stable. Physical exam General: Alert, Oriented x3, Cooperative HEENT: Atraumatic, PERRLA, EOMI, Normocephalic Oral: No Gingival or Mucosal Lesions/ Ulcerations Neck: Supple, No JVD, Negative Carotid Bruits Lungs: Air entry diminished in bilateral lung bases. No crepitation/rhonchi Cardiovascular: Regular rate, Regular Rhythm, Normal S1, Normal S2, No murmurs Abdomen: Bowel Sounds Present, Soft, Non Tender, Non-Distended : No renal angle tenderness. No suprapubic tenderness. Extremities: No edema, Capillary Refill Less than 3 Seconds Skin: Mild erythema, swelling present in both lower legs. Stasis dermatitis improvement in maceration. No drainage or weeping area. Musculoskeletal: No Tenderness to Palpation of Joints or Extremities Neurological: Cranial nerves II-XII grossly intact, Deep Tendon Reflexes 2+/4 and Symmetrical, Neuro grossly intact Psych/Mental Status: Normal Affect, Appropriate. - Physical Exam Vitals/I&O's: Vital Signs Temp Pulse Resp BP Pulse Ox 98.1 F 91 16 104/42 L 99 01/31/20 12:13 01/31/20 12:29 01/31/20 12:13 01/31/20 12:13 01/31/20 12:13 Oxygen Flow Rate (L/min) 2 Oxygen Delivery Method Nasal Cannula Weight: 287 lb 7.724 oz Body Mass Index (BMI) 42.9 Intake and Output for Last 24 Hours 01/29/20 01/30/20 01/31/20 23:59 23:59 23:59 Intake Total 770 / 770 580 / 580 610 / 610 Output Total 2385 / 2385 260 / 260 100 / 100 Balance -1615 / -1615 320 / 320 510 / 510 Microbiology Past 72 Hours 01/25/20 15:05 Blood Culture (Wb) - Anticubital Right Blood Culture - Final No growth in 5 days. 01/25/20 14:55 Blood Culture (Wb) - Anticubital Left Blood Culture - Final No growth in 5 days. 01/26/20 09:35 Wound - Leg, Left Gram Stain - Final 01/26/20 09:35 Wound - Leg, Left Wound Culture - Final Pseudomonas aeroginosa Citrobacter species Corynebacterium striatum Laboratory Results 01/28/20 18:25: Transferrin 151 L, Hep B Core Total Ab Negative 01/30/20 16:44: POC Glucose 96 01/30/20 21:39: POC Glucose 87 01/31/20 05:40: WBC 6.6, RBC 2.64 L, Hgb 8.3 L, Hct 27.8 L, MCV 105.3 H, MCH 31.4, MCHC 29.9 L, RDW Std Deviation 63.7 H, RDW Coeff of Inocencio 16.3 H, Plt Count 77 L, MPV 12.5 H, Immature Gran % (Auto) 0.900, Neut % (Auto) 65.5, Lymph % (Auto) 16.0 L, [place] % (Auto) 12.4 H, Eos % (Auto) 4.9, Baso % (Auto) 0.3, Absolute Neuts (auto) 4.3, Absolute Lymphs (auto) 1.05, Nucleated RBC % 0 01/31/20 05:40: Sodium 139, Potassium 3.7, Chloride 105, Carbon Dioxide 28.0, Anion Gap 6, BUN 47 H, Creatinine 3.89 H, Estim Creat Clear Calc 18.24, Est GFR (MDRD) Af Amer 20 L, Est GFR (MDRD) Non-Af 16 L, BUN/Creatinine Ratio 12.1, Glucose 96, Calcium 8.8 01/31/20 06:39: POC Glucose 97 01/31/20 12:03: POC Glucose 94 Current Medications Acetaminophen (Tylenol) 650 mg PO Q6H PRN PRN PRN Reason: Pain Score 1-10/Temp > 100.7 F Albuterol Sulfate (Ventolin Aerosols) 2.5 mg INHALATION Q2H PRN PRN PRN Reason: SOB/Wheezing Last Admin: 01/27/20 23:31 Dose: 2.5 mg Documented by: Atorvastatin Calcium (Lipitor) 20 mg PO QHS [facility] Last Admin: 01/30/20 21:42 Dose: 20 mg Documented by: Calamine/Phenol (Calmoseptine Ointment) 1 applic TOPICAL BID [facility]; Protocol Last Admin: 01/31/20 10:00 Dose: 1 applicatio Documented by: Ferrous Sulfate (Ferrous Sulfate) 325 mg PO DAILY@1200 [facility] Last Admin: 01/31/20 12:04 Dose: 325 mg Documented by: Heparin Sodium (Porcine) (Heparin Na) 5,000 unit SC Q12 [facility] Last Admin: 01/31/20 09:50 Dose: 5,000 unit Documented by: Meropenem 1 gm/ Sodium (Chloride) 120 mls @ 33 mls/hr IV Q24H [facility] Last Infusion: 01/30/20 18:05 Dose: Infused Documented by: Insulin Human Lispro (Humalog Kwikpen (Bkc)) 0 unit SC ACHS [facility]; Protocol Last Admin: 01/31/20 12:04 Dose: Not Given Documented by: Melatonin (Melatonin) 3 mg PO QHS PRN PRN Reason: INSOMNIA Last Admin: 01/26/20 22:33 Dose: 3 mg Documented by: Ondansetron HCl (Zofran) 4 mg IV Q8H PRN PRN PRN Reason: NAUSEA/VOMITING Oxycodone HCl (Oxyir) 5 mg PO Q4H PRN PRN PRN Reason: Pain Score 4-10/10 Last Admin: 01/26/20 10:15 Dose: 5 mg Documented by: Sodium Chloride () 10 - 40 ml IV UD PRN PRN Reason: SALINE FLUSH Last Admin: 01/29/20 19:50 Dose: 10 ml Documented by: Inpatient E&M: [id number] Disch Hosp
--- NOTE | 2020-01-31 13:34 | CASEMGMT ---
Patient will be discharged to [facility] today after Infectious Disease sees him. SW called [facility] and put him on the will call list. Mary WELLS MSW
--- NOTE | 2020-01-31 13:48 | CASEMGMT ---
Ines at [facility] aware that pt to be discharged later today to the [facility] and will be at 1st OP dialysis appt in the am, voices understanding. Miranda PRASAD CM
--- NOTE | 2020-01-31 15:24 | PCM.HP.ID ---
Problem List (1) Cellulitis Status: Acute Reason for Consult: cellulitis Consulted by: Dr. Thrasher History of Present Illness: The patient is a 69 year old M with CKD, admitted for worsening Cr and several months of progressive BLE swelling, pain, redness, and foul smelling drainage. Started on vanc/cefepime, legs improved, started on HD, swelling improved. No fever, no n/v/d. Wound cx now with resistant organisms, changed to meropenem. Discharge planned for today to [facility]. Full ROS performed and neg except as noted above. - Medical History Past Medical History (Chronic Problems): Chronic Problems (Last Reviewed 01/27/20 @ 12:[address] Orville Blackwell MD) CKD (chronic kidney disease), stage III (Chronic) Morbid obesity (Chronic) Chronic acquired lymphedema (Chronic) Debility (Chronic) Chronic diastolic (congestive) heart failure (Chronic) Nonrheumatic aortic (valve) stenosis (Chronic) Stage 3 severe COPD by GOLD classification (Chronic) Respiratory failure, chronic (Chronic) Obesity (Chronic) HERNÁN (obstructive sleep apnea) (Chronic) Ulcer of left lower extremity with fat layer exposed (Chronic) Ulcer of left foot (Chronic) Ulcer of right lower extremity with fat layer exposed (Chronic) Cardiac murmur (Chronic) Essential hypertension (Chronic) Gout (Chronic) Type 2 diabetes mellitus (Chronic) Iron deficiency anemia (Chronic) Hyperlipidemia (Chronic) Allergies/Adverse Reactions: Allergies No Known Allergies Allergy (Verified 01/25/20 14:26) Home Medications: Ambulatory Orders Medication Instructions Recorded Ascorbic Acid [Vitamin C] 500 mg PO DAILY 03/08/17 allopurinol 300 mg tablet 300 mg PO DAILY 08/23/19 cholecalciferol (vitamin D3) 125 125 mcg PO DAILY 08/23/19 mcg (5,000 unit) capsule cyanocobalamin (vitamin B-12) 1,000 mcg PO DAILY 08/24/19 1,000 mcg capsule omega-3 fatty acids 1,000 mg 1,000 mg PO DAILY 08/24/19 capsule Simvastatin 40 mg PO QHS 10/06/19 Ferrous Sulfate 325 mg PO DAILY 12/16/19 Nystatin Powder [Mycostatin Powder] 1 applic TOPICAL TID 12/19/19 Menthol/Lanolin/Calamine/Znox 1 applic TOPICAL BID tube 01/31/20 [Calmoseptine Ointment] Meropenem 500 mg IV DAILY #7 vial 01/31/20 - Social History SMOKING STATUS:: Former smoker Vital Signs Temp Pulse Resp BP Pulse Ox 98.1 F 91 16 104/42 L 99 01/31/20 12:13 01/31/20 12:29 01/31/20 12:13 01/31/20 12:13 01/31/20 12:13 Oxygen Flow Rate (L/min) 2 Oxygen Delivery Method Nasal Cannula Weight: 130.4 kg Body Mass Index (BMI) 42.9 Microbiology Past 72 Hours 01/25/20 15:05 Blood Culture - Final Blood Culture (Wb) - Anticubital Right No growth in 5 days. 01/25/20 14:55 Blood Culture - Final Blood Culture (Wb) - Anticubital Left No growth in 5 days. 01/26/20 09:35 Gram Stain - Final Wound - Leg, Left Wound Culture - Final Pseudomonas aeroginosa Citrobacter species Corynebacterium striatum Laboratory Tests Past 24 Hrs 01/28/20 01/31/20 01/31/20 18:25 05:40 05:40 WBC 6.6 RBC 2.64 L Hgb 8.3 L Hct 27.8 L MCV 105.3 H MCH 31.4 MCHC 29.9 L RDW Std Deviation 63.7 H RDW Coeff of Inocencio 16.3 H Plt Count 77 L MPV 12.5 H Immature Gran % (Auto) 0.900 Neut % (Auto) 65.5 Lymph % (Auto) 16.0 L [place] % (Auto) 12.4 H Eos % (Auto) 4.9 Baso % (Auto) 0.3 Absolute Neuts (auto) 4.3 Absolute Lymphs (auto) 1.05 Nucleated RBC % 0 Sodium 139 Potassium 3.7 Chloride 105 Carbon Dioxide 28.0 Anion Gap 6 BUN 47 H Creatinine 3.89 H Estim Creat Clear Calc 18.24 Est GFR (MDRD) Af Amer 20 L Est GFR (MDRD) Non-Af 16 L BUN/Creatinine Ratio 12.1 Glucose 96 Calcium 8.8 Transferrin 151 L Hep B Core Total Ab Negative - Other Studies Radiology: [] reviewed Other Studies: [] Route of nutrition/ use of supplements: [] Nutritional Intake: [] IV Site: [] Hook Catheter: [] - Physical Exam General: Alert, Oriented x3, Cooperative, No apparent distress HEENT: Atraumatic, PERRLA, EOMI Neck: Supple, No Nodes Lungs: Clear to auscultation, Normal air movement Cardiovascular: Regular rate, Regular Rhythm Abdomen: Soft, Non Tender, Non-Distended, Obese Extremities: Edema Skin: Ulcer/ Wound - reviewed photos of BLE IV Site: Peripheral, without redness Musculoskeletal: No Tenderness to Palpation of Joints or Extremities Neurological: Cranial nerves II-XII grossly intact - Assessment/Plan Antibiotics: [] Assessment/Plan: [] Active and Suspected Problems (Last Reviewed 01/27/20 @ 12:[address] Orville Blackwell MD) Vascular catheter fitting or adjustment (Acute) Cellulitis (Acute) BLE cellulitis - wound cx with PsA, citrobacter, corynebacterium. On meropenem. Limited options for abx. Will write for one week of meropenem via peripheral iv in order to avoid picc placement. Overall legs much improved since admit. Will follow as needed, thank you, wrote rx, d/w primary team.
[2020-01-31 16:41] LABS: Bedside Glucose 85 mg/dL (70-110)
--- NOTE | 2020-01-31 17:00 | NURSING ---
Addendum entered by Alicia Navarro 01/31/20 17:06: returned phone call to Mikaela and notified her that pt bipap is not here and we are unable to verify bipap settings. Original Note: report called to Mikaela at the [facility]. she requested we verify pt home bipap settings and have MD include in DC instructions.
== END 2020-01-31 17:21 | disposition skilled nursing facility (03) | DRG 292 ==
LOC: ED 14:47 → PCU 16:30
PROVIDERS: Family Medicine; Hospitalist; Internal Medicine Nephrology; Nurse Practitioner Family; Physician Assistant; Surgery; Admitting Provider Internal Medicine; Emergency Provider Emergency Medicine; PCP Family Medicine; Visit Provider Internal Medicine
PROC: 02HV33Z Insertion of Infusion Device into Superior Vena Cava, Percutaneous Approach (ICD-10-PCS; principal; 2020-01-28 11:25)
DX: I13.0 Hypertensive heart and chronic kidney disease with heart failure and stage 1 through stage 4 chronic kidney disease, or unspecified chronic kidney disease (principal); L03.115 Cellulitis of right lower limb; N18.4 Chronic kidney disease, stage 4 (severe); N17.9 Acute kidney failure, unspecified; I50.32 Chronic diastolic (congestive) heart failure; Z68.43 Body mass index [BMI] 50.0-59.9, adult; Z16.24 Resistance to multiple antibiotics; L97.922 Non-pressure chronic ulcer of unspecified part of left lower leg with fat layer exposed; L97.912 Non-pressure chronic ulcer of unspecified part of right lower leg with fat layer exposed; J96.11 Chronic respiratory failure with hypoxia; G93.49 Other encephalopathy; L03.116 Cellulitis of left lower limb; B96.5 Pseudomonas (aeruginosa) (mallei) (pseudomallei) as the cause of diseases classified elsewhere; B96.89 Other specified bacterial agents as the cause of diseases classified elsewhere; E11.621 Type 2 diabetes mellitus with foot ulcer; L97.529 Non-pressure chronic ulcer of other part of left foot with unspecified severity; E11.622 Type 2 diabetes mellitus with other skin ulcer; E11.22 Type 2 diabetes mellitus with diabetic chronic kidney disease; E66.01 Morbid (severe) obesity due to excess calories; R53.81 Other malaise; I35.0 Nonrheumatic aortic (valve) stenosis; J44.9 Chronic obstructive pulmonary disease, unspecified; G47.33 Obstructive sleep apnea (adult) (pediatric); M1A.9XX0 Chronic gout, unspecified, without tophus (tophi); D50.9 Iron deficiency anemia, unspecified; D63.1 Anemia in chronic kidney disease; D69.6 Thrombocytopenia, unspecified; E87.5 Hyperkalemia; E78.5 Hyperlipidemia, unspecified; E11.65 Type 2 diabetes mellitus with hyperglycemia; E11.21 Type 2 diabetes mellitus with diabetic nephropathy; E11.40 Type 2 diabetes mellitus with diabetic neuropathy, unspecified; I87.2 Venous insufficiency (chronic) (peripheral); R04.0 Epistaxis; Z99.2 Dependence on renal dialysis; Z99.81 Dependence on supplemental oxygen; Z79.899 Other long term (current) drug therapy; Z87.891 Personal history of nicotine dependence
CPT/HCPCS: 36415; 71045; 76000; 80048; 80053; 80069; 80202; 81001; 82570; 82728; 82962; 83540; 83550; 83605; 83735; 84300; 84466; 85025; 85027; 85610; 85730; 86704; 86706; 87040; 87070; 87077; 87186; 87205; 87340; 87493; 87635; 87640; 90937; 93005; 94003; 94640; 97110; 97116; 97162; 97166; 97530; 97535; 97802; 99251; 99285; J2020; J2185; J7030; J7040; A4216; C1750; C1769; G0257; G0463; J2916; Q5106; U0003

== ENCOUNTER → 2020-02-10 07:57 | Outpatient (CLI) | payer MEDICARE, OTHER, SELFPAY ==
[2020-02-09 15:36] VITALS: BMI 44.5
[2020-02-10] VITALS (8 sets, daily range): BP systolic 100–130; BP diastolic 48–63; PULSE 95–100; RESP 16–18; TEMP 36.1–36.8; O2SAT 96–100; BMI 41.5
[2020-02-10] MEDS: 0.9% NaCl Peripheral Flush Adult/Peds IV (08:36)
== END ==
PROVIDERS: PCP Family Medicine; Referring Provider Nurse Practitioner Family; Visit Provider Nurse Practitioner Family
DX: N18.9 Chronic kidney disease, unspecified (principal); D63.1 Anemia in chronic kidney disease
CPT/HCPCS: 36415; 36430; 86850; 86900; 86901; 86920; 86922; J7040; P9016; A4216

== ENCOUNTER → 2020-02-23 09:55 | Outpatient (CLI) | payer MEDICARE, OTHER, SELFPAY ==
[2020-02-10 08:14] VITALS: BMI 41.5
--- NOTE | 2020-02-23 09:57 | VDUE_ITS ---
Reason For Study: Pre op testing Right Arm Left Arm Right Cephalic Vein at the wrist measures Left Cephalic Vein at the wrist measures 0.11 0.15 x 0.14 cm. x 0.11 cm. Right Cephalic Vein in the forearm measures Left Cephalic Vein in the forearm measures 0.15 x 0.17 cm. 0.13 x 0.13 cm. Right Cephalic Vein below antecub measures Left Cephalic Vein below antecub measures 0.16 0.12 x 0.14 cm. x 0.16 cm. Right Cephalic Vein above antecub measures Left Cephalic vein above antecube is 0.19 x 0.21 cm. noncompressible with bright intraluminal Right Cephalic Vein mid bicep measures 0.21 echoes consistent with chronic SVT. Measure x 0.22 cm. 0.11 x 0.11 cm. Right Cephalic Vein at the shoulder Left Cephalic vein mid bicep is partially measures 0.28 x 0.31 cm. compressible with bright intraluminal echoes Right Basilic Vein at the origin measures consistent with chronic SVT. Measures 0.10 x 0.22 x 0.21 cm. 0.10 cm. Right Basilic Vein mid bicep measures 0.20 Left Cephalic Vein at the shoulder measures x 0.22 cm. 0.11 x 0.10 cm. Right Basilic Vein above antecub measures Basilic vein at origin measures 0.29 x 0.30 0.14 x 0.14 cm. cm. Right Brachial artery 1 measures 0.26 x Basilic vein at bicep measures 0.27 x 0.26 cm. 0.26 cm with a velocity of 89.2 cm/sec. Basilic vein above antecub measures 0.27 x Right Brachial artery 2 measures 0.33 x 0.27 cm. 0.35 cm with a velocity of 99.6 cm/sec. Left Brachial artery measures 0.47 x 0.47 cm Right Radial artery measures 0.20 x 0.21 cm with a velocity of 92.7 cm/sec. with a velocity of 77.1 cm/sec. Left Radial artery measures 0.18 x 0.18 cm with a velocity of 59.1 cm/sec. Interpretation Summary Patent and compressible right upper extremity cephalic and basilic veins is noted with dimensions small throughout. Chronic superficial thrombophlebitis left cephalic vein proximal to the antecubital space and separate location left mid biceps area. Patent and compressible left upper arm basilic vein. Bilateral radial and brachial arteries patent with bilateral radial arteries small in diameter. Ordering Physician: José Galloway Referring Physician: Jaswinder Adrian Performed By: Cristina Elise RVT and Student ?
== END ==
PROVIDERS: PCP Family Medicine; Referring Provider Surgery; Visit Provider Surgery
DX: Z01.818 Encounter for other preprocedural examination (principal); N18.30 Chronic kidney disease, stage 3 unspecified
CPT/HCPCS: 93970; 93985

== ENCOUNTER 2020-02-24 01:29 | Observation (INO) | payer MEDICARE, OTHER, SELFPAY ==
[2020-02-10 08:14] VITALS: BMI 41.5
[2020-02-24] VITALS (8 sets, daily range): BP systolic 108–126; BP diastolic 58–89; PULSE 99–108; RESP 17–25; TEMP 36.7; O2SAT 97–99; BMI 40.5; BMI 39.2
--- NOTE | 2020-02-24 01:45 | RAD_ITS ---
STUDY: X-RAY CHEST REASON FOR EXAM: Male, 69 years old. CP -- BEST IMAGES POSSIBLE, PATIENT HAD DIFFICULTY HOLDING STILL AND HOLDING BREATH TECHNIQUE: Frontal view COMPARISON: 01/28/2020 FINDINGS: Permacath is in proper position and unchanged. The lungs are expanded. There are bilateral perihilar infiltrates versus pulmonary edema decreasing since prior study. There are small bilateral pleural effusions. There is NO pneumothorax. Borderline enlarged. Normal mediastinum and calli. Normal visualized pulmonary arteries. Normal visualized aortic arch and descending thoracic aorta. Normal visualized thoracic spine. Normal visualized ribs, clavicles, and shoulders. There is no demonstrated abnormality of the visualized soft tissue structures of the upper abdomen. RAD/Chest PA and Lateral IMPRESSION: Permacath is in proper position and unchanged. The lungs are expanded. There are bilateral perihilar infiltrates versus pulmonary edema decreasing since prior study. There are small bilateral pleural effusions. There is NO pneumothorax. Borderline enlarged. Electronically Signed: Willam Humphries MD at 2:03 EDT , Service support ,
--- NOTE | 2020-02-24 01:45 | EKG12_ITS ---
Test Reason : CP ADMISSION Blood Pressure : / mmHG Vent. Rate : 102 BPM Atrial Rate : 060 BPM P-R Int : 000 ms QRS Dur : 148 ms QT Int : 400 ms P-R-T Axes : 000 -50 005 degrees QTc Int : 521 ms Sinus tachycardia Right bundle branch block Left anterior fascicular block Bifascicular block Abnormal ECG When compared with ECG of 30-JAN-2020 07:28, Wide QRS rhythm has replaced Sinus rhythm Confirmed by KIMBERLYN PERRY, CHRISTINE ([id number]), semiconductor manufacturing technician MANUEL VLEÁZQUEZ ([id number]) on 02/28/2020 9:04:14 A M Referred By: CHRIS Confirmed By:NAYLA SOFIA MD
--- NOTE | 2020-02-24 01:45 | ED.VIS.GEN ---
History of Present Illness Chief Complaint: Chest Pain Informant: Patient Narrative: Patient stated approximately an hour and a half ago while trying to sleep he developed some left-sided throbbing chest pain. Is resolved currently. It went away on its own in route to the hospital. No home treatment. He is never had this before. Denies any cardiac history. He is never had a heart cath. He had a remote stress test that he thinks was normal but is not completely sure how long ago. Worsened by nothing. Relieved with time. EMS brought him in for further evaluation. He does have cardiac risk factors including obesity, end-stage renal disease on dialysis, hypertension, hyperlipidemia, diabetes. Patient had a dialysis catheter placed approximately a month ago and has been getting dialysis through the left subclavian central line. He has not noticed any swelling to his chest or arms to suggest a clot - Past Medical History (1) DEEPTI (acute kidney injury) Status: Acute (2) Cellulitis Status: Acute (3) Vascular catheter fitting or adjustment Status: Acute (4) Venous stasis dermatitis Status: Acute (5) CKD (chronic kidney disease), stage III Status: Chronic (6) Cardiac murmur Status: Chronic (7) Chronic acquired lymphedema Status: Chronic (8) Chronic diastolic (congestive) heart failure Status: Chronic (9) Debility Status: Chronic (10) Essential hypertension Status: Chronic (11) Gout Status: Chronic (12) Hyperlipidemia Status: Chronic (13) Iron deficiency anemia Status: Chronic (14) Morbid obesity Status: Chronic (15) Nonrheumatic aortic (valve) stenosis Status: Chronic (16) HERNÁN (obstructive sleep apnea) Status: Chronic (17) Obesity Status: Chronic (18) Respiratory failure, chronic Status: Chronic (19) Stage 3 severe COPD by GOLD classification Status: Chronic (20) Type 2 diabetes mellitus Status: Chronic (21) Ulcer of left foot Status: Chronic (22) Ulcer of left lower extremity with fat layer exposed Status: Chronic (23) Ulcer of right lower extremity with fat layer exposed Status: Chronic Past Medical History - Allergies and Home Meds Allergies/Adverse Reactions: Allergies No Known Allergies Allergy (Verified 02/24/20 01:29) Primary Care Physician: Han Adrian MD [Primary Care Provider] - Prior records reviewed: Yes Past Medical History: - - See problem list Surgical History: tonsillectomy Smoking Status: Former smoker Alcohol: None Drugs: None - Family History Maternal Family History: Family History (Last Reviewed 01/25/20 @ 16:54 by Yajaira Le NP, MOLD CUTTING MACHINE OPERATOR-C) Mother Cancer Father Hypertension Family History: Reports: Cancer - Mother with history of ovarian cancer. Paternal Family History: Family History (Last Reviewed 01/25/20 @ 16:54 by Yajaira Le NP, MOLD CUTTING MACHINE OPERATOR-C) Mother Cancer Father Hypertension Family History: Reports: Hypertension, - - Head trauma. Review of Systems General: Denies: Chills, Fever, Sweats Eyes: Denies: Visual changes - bilaterally, Diplopia ENT: Denies: Rhinorrhea, Sore throat Cardiovascular: Reports: Chest pain. Denies: Palpitations Respiratory: Denies: Dyspnea, Cough, Dyspnea on exertion Gastrointestinal: Denies: Abdominal pain, Nausea, Vomiting, Diarrhea, Melena, Hematochezia Genitourinary: Denies: Dysuria, Hematuria, Frequency Musculoskeletal: Denies: Back pain, Extremity Pain Skin: Denies: Rash, Wounds Neurological: Denies: Headache, Weakness, Numbness Physical Exam Vital Signs/Narrative: Vital Signs Temp Pulse Resp BP Pulse Ox 02/24/20 01:30 98.1 F 100 17 118/58 L 99 General: Well nourished, Well developed, No Acute Distress Head: Normocephalic, Atraumatic Eyes: Perrl, EOMI ENT: Moist mucous membranes, No rhinorrhea Neck: Supple, Nontender Cardiovascular: Regular rate, Regular rhythm, No murmurs Respiratory: No distress, CTA bilaterally, Chest nontender Abdomen: Soft, Nontender, Nondistended, Normal bowel sounds Back: Nontender, Normal Inspection Extremities: Nontender, Tenderness - Chronic lymphedema to the knees bilateral with lymphedema wraps Skin: Normal color, No rash Neurological: Alert, Oriented x3, Cranial nerves II-XII grossly intact, Normal Strength, Normal Sensation Psychological: Normal affect, Normal Mood Diagnostic/Tx/Re-eval - Medical Decision Making EKG obtained upon arrival shows sinus rhythm at a rate of 99 with a right bundle branch block and left anterior fascicular block. Unchanged from prior EKG with no acute STEMI. Patient does not want aspirin as it causes nosebleeds in the past as well as he is concerned about his chronic kidney disease. We will hold off on this. He is pain-free at this time. Lab work and chest x-ray obtained. Lab work shows a chronic anemia. Chronic renal insufficiency noted as well. Troponin negative. Chest x-ray shows mild CHF picture which is decreasing from prior chest x-ray. This is not surprising given the fact that they took off over 30 pounds of fluid per patient. At this time is unclear to me the cause of his symptoms. He is moderate risk heart score. He is not having any pain currently. I do not think he needs a CT Angio of his chest. I do not think he has a PE or dissection. He has not had a recent stress test. Will be admitted for further evaluation ED Disposition - Plan for ED Patient: Disposition: Acute Care Hospital [facility] Diagnosis: Chest pain at rest, Chronic anemia, Chronic kidney disease
[2020-02-24 01:49] LABS: Absolute Lymphocyte Count 1.41 X10^3/uL (0.83-4.51); Basophil# 0.03 X10^3/uL; Basophil% 0.3 % (0-1); Eosinophil# 0.65 X10^3/uL; Eosinophils% 7.2 % (0-5); Hematocrit 27.6 % (40-54); Hemoglobin 8.2 g/dL (13.0-16.5); Lymphocyte # 1.41 X10^3/ul (4.0); Lymphocyte % 15.7 % (19-41); Mean Corp Hgb Conc 29.7 g/dL (32-36); Mean Corpuscular Hgb 30.6 pg (27.0-32.0); Mean Platelet Vol. 12.2 fl (6.2-12.0); Monocyte# 0.81 X10^3/uL; NRBC Flagged by Analyzer 0 % (0-5); Neutrophil # 6.04 X10^3/uL (2.7-7.7); Neutrophil % 67.2 % (47-70); Platelet Count 206 K/mm3 (150-450); RBC Distribution Width CV 15.6 % (11.6-14.6); RBC Distribution Width SD 58.4 fl (35.1-43.9); Red Blood Count 2.68 M/mm3 (4.6-6.2)
[2020-02-24 02:07] LABS: Anion Gap 8 (5-15); BUN 36 mg/dL (7-18); BUN/Creat Ratio 9.1 RATIO (10-20); Calcium,Total 9.1 mg/dL (8.5-10.1); Chloride 102 mmol/L (98-107); Creatinine, Serum 3.94 mg/dL (0.70-1.30); EST Glomerular Filtration Rate 16 mL/min (>60); Est Glom Filt Rate - Afr Amer 20 mL/min (>60); Estimated Creatinine Clearance 18.01 ml/min; Glucose 112 mg/dL (74-106); Potassium 3.7 mmol/L (3.5-5.1); Sodium Level 142 mmol/L (136-145)
--- NOTE | 2020-02-24 03:04 | HP.PCM_ITS ---
Problem List (1) Chest pain Status: Acute (2) CKD (chronic kidney disease), stage III Status: Chronic (3) Morbid obesity Status: Chronic (4) Chronic acquired lymphedema Status: Chronic (5) Debility Status: Chronic (6) Chronic diastolic (congestive) heart failure Status: Chronic (7) Venous stasis dermatitis Status: Chronic Qualifiers: Laterality: bilateral Qualified Code(s): I87.2 - Venous insufficiency (chronic) (peripheral) (8) Cellulitis Status: Resolved (9) Chest pain at rest Status: Acute (10) Chronic anemia Status: Chronic (11) Chronic kidney disease Status: Chronic (12) Nonrheumatic aortic (valve) stenosis Status: Chronic (13) Stage 3 severe COPD by GOLD classification Status: Chronic (14) Respiratory failure, chronic Status: Chronic Qualifiers: Respiratory failure complication: hypoxia Qualified Code(s): J96.11 - Chronic respiratory failure with hypoxia (15) Obesity Status: Chronic Qualifiers: (16) HERNÁN (obstructive sleep apnea) Status: Chronic (17) Ulcer of left lower extremity with fat layer exposed Status: Chronic (18) Ulcer of left foot Status: Chronic (19) Ulcer of right lower extremity with fat layer exposed Status: Chronic (20) DEEPTI (acute kidney injury) Status: Resolved (21) Cardiac murmur Status: Chronic (22) Essential hypertension Status: Chronic (23) Gout Status: Chronic Qualifiers: (24) Type 2 diabetes mellitus Status: Chronic Qualifiers: (25) Iron deficiency anemia Status: Chronic Qualifiers: (26) Hyperlipidemia Status: Chronic Qualifiers: Hyperlipidemia type: unspecified Qualified Code(s): E78.5 - Hyperlipidemia, unspecified History of Present Illness Date of Admission: 02/24/20 Chief Complaint: Chest pain and palpitations The patient is a 69 year old M presents with palpitations chest pressure today. Has had that intermittently but was more persistent became concerned patient's work-up in the emergency room was unremarkable and had no further symptoms. Given patient's comorbidities, it was felt most appropriate to admit the patient and do further cardiac evaluation. Patient stated that when he had the symptoms he did not have any other constitutional symptoms, such as shortness of breath, nausea, vomiting patient is on dialysis and has been so for about a month now and has lost roughly 30 pounds during this time. [] Past Medical History Past Medical History (Chronic Problems): Chronic Problems (Last Reviewed 01/27/20 @ 12:[address] Orville Blackwell MD) CKD (chronic kidney disease), stage III (Chronic) Morbid obesity (Chronic) Chronic acquired lymphedema (Chronic) Debility (Chronic) Chronic diastolic (congestive) heart failure (Chronic) Venous stasis dermatitis (Chronic) Chronic anemia (Chronic) Chronic kidney disease (Chronic) Nonrheumatic aortic (valve) stenosis (Chronic) Stage 3 severe COPD by GOLD classification (Chronic) Respiratory failure, chronic (Chronic) Obesity (Chronic) HERNÁN (obstructive sleep apnea) (Chronic) Ulcer of left lower extremity with fat layer exposed (Chronic) Ulcer of left foot (Chronic) Ulcer of right lower extremity with fat layer exposed (Chronic) Cardiac murmur (Chronic) Essential hypertension (Chronic) Gout (Chronic) Type 2 diabetes mellitus (Chronic) Iron deficiency anemia (Chronic) Hyperlipidemia (Chronic) Medical History: Medical History (Last Updated 02/24/20 @ 03:[address] 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 Left sided. Diabetic neuropathy E11.40 Hyperuricemia E79.0 Chronic kidney disease (Inactive) N18.9 Hypertension (Inactive) I10 Allergies No Known Allergies Allergy (Verified 02/24/20 01:29) Home Medications: Ambulatory Orders Medication Instructions Recorded Ascorbic Acid [Vitamin C] 500 mg PO DAILY 03/08/17 allopurinol 300 mg tablet 300 mg PO DAILY 08/23/19 cholecalciferol (vitamin D3) 125 125 mcg PO DAILY 08/23/19 mcg (5,000 unit) capsule cyanocobalamin (vitamin B-12) 1,000 mcg PO DAILY 08/24/19 1,000 mcg capsule omega-3 fatty acids 1,000 mg 1,000 mg PO DAILY 08/24/19 capsule Simvastatin 40 mg PO QHS 10/06/19 Ferrous Sulfate 325 mg PO DAILY 12/16/19 Nystatin Powder [Mycostatin Powder] 1 applic TOPICAL TID 12/19/19 Menthol/Lanolin/Calamine/Znox 1 applic TOPICAL BID tube 01/31/20 [Calmoseptine Ointment] Surgical History: Surgical History (Last Reviewed 01/27/20 @ 12:[address] Orville Blackwell MD) S/P colonoscopy Z98.890 Status post tonsillectomy Z90.89 Surgical History: tonsillectomy Psychiatric History: No pertinent psych hx Smoking Status: Former smoker Alcohol: None Drugs: None - *Family History Maternal Family History: Family History (Last Reviewed 02/24/20 @ 03:[address] Guillermo Fuchs DO) Mother Cancer Father Hypertension History Items: Cancer - Mother with history of ovarian cancer. Paternal Family History: Family History (Last Reviewed 02/24/20 @ 03:[address] Guillermo Fuchs DO) Mother Cancer Father Hypertension History Items: Hypertension, - - Head trauma. Review of Systems Constitutional: Denies: Chills, Fever, Weight Change Eyes: Denies: Blurred vision, Double vision HEENT: Denies: Head Aches, Sinus Congestion, Sinus Drainage Cardiovascular: Reports: Chest Pain, Edema, Palpitations Respiratory: Denies: Cough, Shortness of breath at rest, Sputum production Gastrointestinal: Denies: Abdominal Pain, Nausea, Vomiting Genitourinary: Denies: Dysuria Musculoskeletal: Denies: Joint Pain, Joint Tenderness Skin: Reports: - - Seeping from legs overall improved. Denies: Rash, Wounds Comment: All review of systems were negative except as mentioned above in the history of present illness and the other review of systems. VTE Information - Inpt Only VTE Present on Admission: No VTE Mechan Device Prophylaxis: None VTE Pharm Prophylaxis ordered?: No Patient Problems: Active and Suspected Problems (Last Reviewed 01/27/20 @ 12:[address] Orville Blackwell MD) Chest pain at rest (Acute) - Physical Exam Vitals/I&O's: Vital Signs Temp Pulse Resp BP Pulse Ox 36.7 C 99 18 126/68 H 98 02/24/20 02:52 02/24/20 02:52 02/24/20 02:52 02/24/20 02:52 02/24/20 02:52 Oxygen Delivery Method Room Air Weight: 128.2 kg Body Mass Index (BMI) 40.5 General: Alert, No apparent distress HEENT: Atraumatic, Normocephalic Oral: Moist Mucosa, No Gingival or Mucosal Lesions/ Ulcerations Neck: No Nodes, Thyroid Normal Size and Texture Lungs: Clear to auscultation, Normal air movement, No rhonchi, No wheeze, No rales Cardiovascular: Regular rate, Regular Rhythm, Normal S1, Normal S2 Abdomen: Bowel Sounds Present, Soft, Non Tender, Non-Distended, No Hepato- splenomegaly, Obese Extremities: No Calf Tenderness, Edema Skin: - - Legs wrapped, did not remove. Psych/Mental Status: Normal Affect, Appropriate Laboratory Results 02/24/20 01:35: WBC 9.0, RBC 2.68 L, Hgb 8.2 L, Hct 27.6 L, MCV 103.0 H, MCH 30.6, MCHC 29.7 L, RDW Std Deviation 58.4 H, RDW Coeff of Inocencio 15.6 H, Plt Count 206, MPV 12.2 H, Immature Gran % (Auto) 0.600, Neut % (Auto) 67.2, Lymph % (Auto) 15.7 L, Randolph % (Auto) 9.0, Eos % (Auto) 7.2 H, Baso % (Auto) 0.3, Absolute Neuts (auto) 6.0, Absolute Lymphs (auto) 1.41, Nucleated RBC % 0 02/24/20 01:35: Sodium 142, Potassium 3.7, Chloride 102, Carbon Dioxide 32.0, Anion Gap 8, BUN 36 H, Creatinine 3.94 H, Estim Creat Clear Calc 18.01, Est GFR (MDRD) Af Amer 20 L, Est GFR (MDRD) Non-Af 16 L, BUN/Creatinine Ratio 9.1 L, Glucose 112 H, Calcium 9.1, Troponin I < 0.015 EKG reviewed and showed normal sinus rhythm right bundle branch block. Unchanged from 01/30/2020 Chest x-ray personally reviewed and showed flattening of the diaphragm. Some pulmonary vascular congestion. Left subclavian dialysis catheter in place. Assessment/Plan All Active Problems (Last Reviewed 01/27/20 @ 12:[address] Orville Blackwell MD) Cellulitis (Resolved) Chest pain at rest (Acute) Chest pain (Acute) DEEPTI (acute kidney injury) (Resolved) Acute respiratory failure (Resolved) 1. Chest pain: Atypical. PUMA score of 3. Shanae score 145 with calculated possible rate of 3.4 percent. Plan is to admit the patient and to do a nuclear stress test. Patient declined aspirin due to history of nosebleeds. Further conversation with stress test has come back normal acquire therapy possible anti-patient depending on the results of a potential heart catheter primary concern also has patient may have had some palpitations. His heart rate is and is normal possible could have been much more elevated earlier but patient monitored on telemetry for now. We will cycle troponins as well. 2. End-stage renal disease: On hemodialysis. Today is his normal dialysis day so we will consult Dr. Mcleod, of nephrology. Patient still volume overloaded but overall has lost 30 pounds in the past month or so. 3. Anemia of chronic disease: Currently stable at this time. No need for transfusions. 4. VTE prophylaxis low risk as patient is observation status at this time. OBSV E&M: [id number] Initial observation care L2
--- NOTE | 2020-02-24 03:10 | EKG12_ITS ---
Test Reason : CP Blood Pressure : / mmHG Vent. Rate : 099 BPM Atrial Rate : 099 BPM P-R Int : 188 ms QRS Dur : 152 ms QT Int : 412 ms P-R-T Axes : 076 -45 034 degrees QTc Int : 528 ms Normal sinus rhythm Right bundle branch block Left anterior fascicular block Bifascicular block Abnormal ECG Confirmed by RIAN PERRY, REINIER ([id number]), rewrite editor MANUEL VELÁZQUEZ ([id number]) on 02/29/2020 8:06:17 AM Referred By: GHAZAL Confirmed By:REINIER MODI MD
--- NOTE | 2020-02-24 03:29 | NURSING ---
Called [facility] to inform them of cancellation of pt transport d/t hospitalization per pt request.
[2020-02-24] MEDS: Cyanocobalamin 500 MCG Tablet 1000 MCG PO (11:09)
[2020-02-24] MEDS: Allopurinol 300 MG Tablet PO (11:09)
[2020-02-24] MEDS: Ascorbic Acid 500 MG Tablet PO (11:09)
--- NOTE | 2020-02-24 11:49 | CASEMGMT ---
Addendum entered by Cristina Vo 02/24/20 13:42: Per [facility] PCU charge, Dr. Mcleod is fine with pt dialyzing tomorrow if pt is ok with it and pt is not SOB. Per Brennan, pt is fine with going tomorrow and is working on getting his transportation set up. Dr. Mcleod is aware, will discuss with OP clinic, and then pt will be notified of time. Pt's ST result is now back and is negative at this time. CM to follow for any further discharge planning/needs. Miranda PRASAD CM Addendum entered by Cristina Vo 02/24/20 12:41: Call to [facility] [employer] [facility] and he states that he cannot transport pt until after 1500. This RN CM to room and pt states he is willing to pay for a cab to dialysis and would prefer to go to OP dialysis at discharge, if ST is neg. Call to [facility] and they are unable to transport pt at this time. [facility] had previously said that they do not transport to dialysis and they had no availability either. Still awaiting stress test results and no transportation for pt either at this time, so Dr. Mcleod notified by charge and Kurt at [facility] aware that pt will not be making it by 1330, voices understanding. Kurt states that he could run pt tomorrow if Dr. Mcleod was ok with it and JOSE Amin charge, aware, voices understanding. Dr. Mcleod updated, voices understanding. Miranda PRASAD CM Addendum entered by Cristina Vo 02/24/20 12:29: Call to [facility](who pt uses for dialysis transport) and they state they could only transport pt right now as they have another trip scheduled for [id number] in [place] and pt is not ready for d/c yet. Miranda PRASAD CM Original Note: Pt is [facility] and per will be discharged after ST back. Call to Kurt at [facility] and states if pt can get to [facility] by 1330, they should be able to still run him OP. JOSE Amin charge, aware, voices understanding. CM to follow. Miranda PRASAD CM
--- NOTE | 2020-02-24 13:01 | STRESSREP_ITS ---
Stress Test Report Date: 02/24/2020 Procedure: Pharmacologic stress nuclear imaging study Indications: Chest pain Consent: Per the patient Procedure: The patient underwent pharmacologic (Regadenoson) evaluation with a peak heart rate of 104 beats per minute (69%predicted maximal heart rate) and a peak blood pressure of 114/52 mmHg. The baseline ECG demonstrated normal sinus rhythm, right bundle branch block. EKG during lexiscan infusion revealed no significant ischemic changes. EKG post infusion revealed no significant ischemic changes. [There were no cardiac dysrhythmias pretest, during pharmacologic infusion, or recovery]. [There was no complaint of chest discomfort during pharmacologic infusion or recovery]. The examination was discontinued secondary to completion of protocol. Impression: 1. Lexiscan stress test test is negative for Lexiscan infusion induced EKG changes of ischemia. 2. Lexiscan stress test test is negative for Lexiscan infusion induced chest pain. 3. Results of the nuclear portion of the test is as below Myocardial perfusion imaging study: Technique: The patient was injected with 15 millicuries of technetium 99m Cardiolite and subsequently rest SPECT Cardiolite nuclear imaging was obtained in the horizontal long, vertical long, and short axis views. The patient underwent pharmacologic (Regadenoson) evaluation. Please see above for details. The patient was injected with 44.4 millicuries of technetium 99m Cardiolite and subsequently stress SPECT Cardiolite nuclear imaging was obtained in the horizontal long, vertical long, and short axis views. A gated Cardiolite study at peak stress was obtained. Interpretation: Rest and stress SPECT Cardiolite nuclear imaging status post realignment, normalization, and attenuation correction demonstrate mildly decreased radioisotope uptake in the inferior wall on the rest images which is not significantly changed on the stress images. Gated images reveal no significant regional wall motion abnormalities. These findings are suggestive of diaphragmatic attenuation artifact. There is no evidence of significant ischemia involving large areas of the myocardium. The reported LVEF is 54%. Impression: 1. There is no evidence of significant ischemia. 2. Estimated ejection fraction is 54%. This note was generated with [employer] software. It may contain incorrect words, spelling, and punctuation that were not noted in checking the note before signing.
--- NOTE | 2020-02-24 14:02 | DCINST_ITS ---
- Discharge Diagnoses Current Active Problems: Current Active and Chronic Problems (Last Updated 02/24/20 @ 03:[address] Guillermo Fuchs, DO) Ulcer of left lower extremity with fat layer exposed (Chronic) Ulcer of left foot (Chronic) Ulcer of right lower extremity with fat layer exposed (Chronic) HERNÁN (obstructive sleep apnea) (Chronic) Obesity (Chronic) CKD (chronic kidney disease), stage III (Chronic) Morbid obesity (Chronic) Chronic acquired lymphedema (Chronic) Debility (Chronic) Chronic diastolic (congestive) heart failure (Chronic) Venous stasis dermatitis (Chronic) Respiratory failure, chronic (Chronic) Stage 3 severe COPD by GOLD classification (Chronic) Nonrheumatic aortic (valve) stenosis (Chronic) Chest pain at rest (Acute) Chronic anemia (Chronic) Chronic kidney disease (Chronic) Chest pain (Acute) Cardiac murmur (Chronic) Essential hypertension (Chronic) Gout (Chronic) Type 2 diabetes mellitus (Chronic) Iron deficiency anemia (Chronic) Hyperlipidemia (Chronic) You will use the following diet at home:: Cardiac, Renal (restricted protein/sodium) Your food should be the consistency of: Regular Your liquids should be the consistency of: Regular/Thin Discharge Activity: Return to Normal Activity, No Restrictions, May Drive Allergies/Adverse Reactions: Allergies No Known Allergies Allergy (Verified 02/24/20 01:29) Medications to take at Discharge Ascorbic Acid [Vitamin C] 500 mg PO DAILY 03/08/17 allopurinol 300 mg tablet 300 mg PO DAILY 08/23/19 cholecalciferol (vitamin D3) 125 mcg (5,000 unit) capsule 125 mcg PO DAILY 08/23/19 cyanocobalamin (vitamin B-12) 1,000 mcg capsule 1,000 mcg PO DAILY 08/24/19 omega-3 fatty acids 1,000 mg capsule 1,000 mg PO DAILY 08/24/19 Simvastatin 40 mg PO QHS 10/06/19 Ferrous Sulfate 325 mg PO DAILY 12/16/19 Nystatin Powder [Mycostatin Powder] 1 applic TOPICAL TID 12/19/19 Menthol/Lanolin/Calamine/Znox [Calmoseptine Ointment] 1 applic TOPICAL BID tube 01/31/20 Primary Care Physician: Han Adrian MD [Primary Care Provider] - Please follow up with your Primary Care Physician in: 1-2 weeks for hospital f/u Test Results: Test results from this visit will be discussed in further detail at your follow- up appointment, if applicable. Please Follow Up With: NORMA When: tomorrow
--- NOTE | 2020-02-24 15:16 | PCM.CONS.R ---
Consultation - Renal 02/24/20 PCP/ Referring MD: Requesting physician: [] Primary care physician: Dr. Han Adrian MD Reason for Consultation:: ESRD HD TTS - History of Present Illness History of Present Illness: The patient is a 69 year old M known to me with Deepti dialysis dependent on HD [facility] last treatment Friday admitted for chest pain over dialysis catheter site. Stress test today negative for ischemia. He has not had his dialysis today. He has oxygen at home and will go [facility] at 1pm for his missed treatment today. - Allergies Allergies: Allergies No Known Allergies Allergy (Verified 02/24/20 01:29) - Current Medications Current Medications: Current Medications Acetaminophen (Acetaminophen 325 Mg Tablet) 650 mg PO Q6H PRN PRN PRN Reason: Pain Score 1-10/Temp > 100.7 F Allopurinol (Allopurinol 300 Mg Tablet) 300 mg PO DAILYCM [facility] Last Admin: 02/24/20 11:09 Dose: 300 mg Documented by: Ascorbic Acid (Ascorbic Acid 500 Mg Tablet) 500 mg PO DAILY [facility] Last Admin: 02/24/20 11:09 Dose: 500 mg Documented by: Atorvastatin Calcium (Atorvastatin Calcium 20 Mg Tablet) 20 mg PO QHS [facility] Cholecalciferol (Cholecalciferol (Vit D3) 1,000 Unit (25mcg)) 5,000 unit PO DAILY [facility] Last Admin: 02/24/20 11:08 Dose: 5,000 unit Documented by: Cyanocobalamin (Cyanocobalamin 500 Mcg Tablet) 1,000 mcg PO DAILY [facility] Last Admin: 02/24/20 11:09 Dose: 1,000 mcg Documented by: Sodium Chloride () 250 mls @ 15 mls/hr IV .[id number] PRN PRN Reason: Saline Flush Sodium Chloride () 250 mls @ 15 mls/hr IV .[id number] PRN PRN Reason: Additional IVPB Infusion Nitroglycerin (Nitroglycerin (Inpatient Use) 0.4 Mg Tab.Subl) 0.4 mg SUBLINGUAL Q5M PRN PRN Reason: CARDIAC/CHEST PAIN Nystatin (Nystatin Powder 15gm Bottle) 1 applic TOPICAL TID [facility]; Protocol Last Admin: 02/24/20 09:53 Dose: Not Given Documented by: Ondansetron HCl (Ondansetron 4 Mg/2 Ml Vial) 4 mg IV Q8H PRN PRN PRN Reason: NAUSEA/VOMITING Oxycodone HCl (Oxycodone 5 Mg Tablet) 5 mg PO Q4H PRN PRN PRN Reason: Pain Score 4-5 Oxycodone HCl (Oxycodone 5 Mg Tablet) 10 mg PO Q4H PRN PRN PRN Reason: Pain Score 6-10 Sodium Chloride (0.9% Saline Lock 10 Ml Syringe) 10 - 40 ml IV UD PRN PRN Reason: SALINE FLUSH - Past Medical History Past Medical History (Chronic Problems): Chronic Problems (Last Updated 02/24/20 @ 03:[address] Guillermo Fuchs DO) Ulcer of left lower extremity with fat layer exposed (Chronic) Ulcer of left foot (Chronic) Ulcer of right lower extremity with fat layer exposed (Chronic) HERNÁN (obstructive sleep apnea) (Chronic) Obesity (Chronic) CKD (chronic kidney disease), stage III (Chronic) Morbid obesity (Chronic) Chronic acquired lymphedema (Chronic) Debility (Chronic) Chronic diastolic (congestive) heart failure (Chronic) Venous stasis dermatitis (Chronic) Respiratory failure, chronic (Chronic) Stage 3 severe COPD by GOLD classification (Chronic) Nonrheumatic aortic (valve) stenosis (Chronic) Chronic anemia (Chronic) Chronic kidney disease (Chronic) Cardiac murmur (Chronic) Essential hypertension (Chronic) Gout (Chronic) Type 2 diabetes mellitus (Chronic) Iron deficiency anemia (Chronic) Hyperlipidemia (Chronic) - Past Surgical History Surgical History: tonsillectomy - Social History Smoking Status: Former smoker Alcohol: None Drugs: None - Family History Maternal Family History: Family History (Last Reviewed 02/24/20 @ 03:[address] Guillermo Fuchs DO) Mother Cancer Father Hypertension History Items: Cancer - Mother with history of ovarian cancer. Paternal Family History: Family History (Last Reviewed 02/24/20 @ 03:[address] Guillermo Fuchs DO) Mother Cancer Father Hypertension History Items: Hypertension, - - Head trauma. Review of Systems Constitutional: Denies: Anorexia, Chills, Fever, Weakness Cardiovascular: Reports: Chest Pain Respiratory: Denies: Cough, Shortness of Breath Gastrointestinal: Denies: Nausea, Vomiting Patient Problems: Active and Suspected Problems (Last Updated 02/24/20 @ 03:[address] Guillermo Fuchs DO) Chest pain at rest (Acute) Chest pain (Acute) - Physical Exam Vitals/I&O's: Vital Signs Temp Pulse Resp BP Pulse Ox 98.0 F 108 H 17 112/65 97 02/24/20 08:36 02/24/20 08:36 02/24/20 08:36 02/24/20 08:36 02/24/20 08:36 Oxygen Flow Rate (L/min) 2 Oxygen Delivery Method Venturi Mask Weight: 123.9 kg Body Mass Index (BMI) 39.2 Intake and Output for Last 24 Hours 02/22/20 02/23/20 02/24/20 23:59 23:59 23:59 Intake Total 120 / 120 Balance 120 / 120 General: Alert, Oriented x3, Cooperative, No apparent distress Lungs: Rales - bilateral bases, - - dialysis catheter LIJ Cardiovascular: Regular rate, Murmur Abdomen: Bowel Sounds Present, Soft, Non Tender, Non-Distended, Obese Extremities: Edema - mild Laboratory Results 02/24/20 01:35: WBC 9.0, RBC 2.68 L, Hgb 8.2 L, Hct 27.6 L, MCV 103.0 H, MCH 30.6, MCHC 29.7 L, RDW Std Deviation 58.4 H, RDW Coeff of Inocencio 15.6 H, Plt Count 206, MPV 12.2 H, Immature Gran % (Auto) 0.600, Neut % (Auto) 67.2, Lymph % (Auto) 15.7 L, [place] % (Auto) 9.0, Eos % (Auto) 7.2 H, Baso % (Auto) 0.3, Absolute Neuts (auto) 6.0, Absolute Lymphs (auto) 1.41, Nucleated RBC % 0 02/24/20 01:35: Sodium 142, Potassium 3.7, Chloride 102, Carbon Dioxide 32.0, Anion Gap 8, BUN 36 H, Creatinine 3.94 H, Estim Creat Clear Calc 18.01, Est GFR (MDRD) Af Amer 20 L, Est GFR (MDRD) Non-Af 16 L, BUN/Creatinine Ratio 9.1 L, Glucose 112 H, Calcium 9.1, Troponin I < 0.015 02/24/20 04:58: Troponin I < 0.015 02/24/20 07:10: Troponin I < 0.015 Current Medications Acetaminophen (Acetaminophen 325 Mg Tablet) 650 mg PO Q6H PRN PRN PRN Reason: Pain Score 1-10/Temp > 100.7 F [facility] ([facility] 300 Mg Tablet) [facility] Last Admin: 02/24/20 11:09 Dose: 300 mg Documented by: Ascorbic Acid (Ascorbic Acid 500 Mg Tablet) 500 mg PO DAILY [facility] Last Admin: 02/24/20 11:09 Dose: 500 mg Documented by: Atorvastatin Calcium (Atorvastatin Calcium 20 Mg Tablet) 20 mg PO QHS [facility] Cholecalciferol (Cholecalciferol (Vit D3) 1,000 Unit (25mcg)) 5,000 unit PO DAILY [facility] Last Admin: 02/24/20 11:08 Dose: 5,000 unit Documented by: Cyanocobalamin (Cyanocobalamin 500 Mcg Tablet) 1,000 mcg PO DAILY [facility] Last Admin: 02/24/20 11:09 Dose: 1,000 mcg Documented by: Sodium Chloride () 250 mls @ 15 mls/hr IV .[id number] PRN PRN Reason: Saline Flush Sodium Chloride () 250 mls @ 15 mls/hr IV .[id number] PRN PRN Reason: Additional IVPB Infusion Nitroglycerin (Nitroglycerin (Inpatient Use) 0.4 Mg Tab.Subl) 0.4 mg SUBLINGUAL Q5M PRN PRN Reason: CARDIAC/CHEST PAIN Nystatin (Nystatin Powder 15gm Bottle) 1 applic TOPICAL TID [facility]; Protocol Last Admin: 02/24/20 09:53 Dose: Not Given Documented by: Ondansetron HCl (Ondansetron 4 Mg/2 Ml Vial) 4 mg IV Q8H PRN PRN PRN Reason: NAUSEA/VOMITING Oxycodone HCl (Oxycodone 5 Mg Tablet) 5 mg PO Q4H PRN PRN PRN Reason: Pain Score 4-5 Oxycodone HCl (Oxycodone 5 Mg Tablet) 10 mg PO Q4H PRN PRN PRN Reason: Pain Score 6-10 Sodium Chloride (0.9% Saline Lock 10 Ml Syringe) 10 - 40 ml IV UD PRN PRN Reason: SALINE FLUSH Assessment/Plan All Active Problems (Last Updated 02/24/20 @ 03:[address] Guillermo Jopperi, DO) DEEPTI (acute kidney injury) (Resolved) Cellulitis (Resolved) Chest pain at rest (Acute) Chest pain (Acute) Acute respiratory failure (Resolved) 1. DEEPTI dialysis dependent. HD Friday at [facility] at 1pm then back to [facility] schedule. Has appt with Dr. Galloway for AV access. 2. Chest pain stress test negative 3. HTN stable 4. Anemia iv iron, epo
--- NOTE | 2020-02-24 16:02 | PCM.DC.SUM ---
Discharge Date and Diagnosis - Problem List Patient Problems: Active and Suspected Problems (Last Updated 02/24/20 @ 03:[address] Guillermo Fuchs DO) Chest pain at rest (Acute) Chest pain (Acute) Date of Admission: 02/24/20 Date of Discharge: 02/24/20 - Primary Discharge Diagnosis Acute Problems: Active Problems (Last Updated 02/24/20 @ 03:[address] Guillermo Fuchs DO) Chest pain at rest (Acute) Chest pain (Acute) - Secondary Discharge Diagnosis Chronic Problems: Chronic Problems (Last Updated 02/24/20 @ 03:[address] Guillermo Fuchs DO) Ulcer of left lower extremity with fat layer exposed (Chronic) Ulcer of left foot (Chronic) Ulcer of right lower extremity with fat layer exposed (Chronic) HERNÁN (obstructive sleep apnea) (Chronic) Obesity (Chronic) CKD (chronic kidney disease), stage III (Chronic) Morbid obesity (Chronic) Chronic acquired lymphedema (Chronic) Debility (Chronic) Chronic diastolic (congestive) heart failure (Chronic) Venous stasis dermatitis (Chronic) Respiratory failure, chronic (Chronic) Stage 3 severe COPD by GOLD classification (Chronic) Nonrheumatic aortic (valve) stenosis (Chronic) Chronic anemia (Chronic) Chronic kidney disease (Chronic) Cardiac murmur (Chronic) Essential hypertension (Chronic) Gout (Chronic) Type 2 diabetes mellitus (Chronic) Iron deficiency anemia (Chronic) Hyperlipidemia (Chronic) Hospital Course and Treatment Imaging Results: Stress Test Report Date: 02/24/2020 Procedure: Pharmacologic stress nuclear imaging study Indications: Chest pain Consent: Per the patient Procedure: The patient underwent pharmacologic (Regadenoson) evaluation with a peak heart rate of 104 beats per minute (69%predicted maximal heart rate) and a peak blood pressure of 114/52 mmHg. The baseline ECG demonstrated normal sinus rhythm, right bundle branch block. EKG during lexiscan infusion revealed no significant ischemic changes. EKG post infusion revealed no significant ischemic changes. [There were no cardiac dysrhythmias pretest, during pharmacologic infusion, or recovery]. [There was no complaint of chest discomfort during pharmacologic infusion or recovery]. The examination was discontinued secondary to completion of protocol. Impression: 1. Lexiscan stress test test is negative for Lexiscan infusion induced EKG changes of ischemia. 2. Lexiscan stress test test is negative for Lexiscan infusion induced chest pain. 3. Results of the nuclear portion of the test is as below Myocardial perfusion imaging study: Technique: The patient was injected with 15 millicuries of technetium 99m Cardiolite and subsequently rest SPECT Cardiolite nuclear imaging was obtained in the horizontal long, vertical long, and short axis views. The patient underwent pharmacologic (Regadenoson) evaluation. Please see above for details. The patient was injected with 44.4 millicuries of technetium 99m Cardiolite and subsequently stress SPECT Cardiolite nuclear imaging was obtained in the horizontal long, vertical long, and short axis views. A gated Cardiolite study at peak stress was obtained. Interpretation: Rest and stress SPECT Cardiolite nuclear imaging status post realignment, normalization, and attenuation correction demonstrate mildly decreased radioisotope uptake in the inferior wall on the rest images which is not significantly changed on the stress images. Gated images reveal no significant regional wall motion abnormalities. These findings are suggestive of diaphragmatic attenuation artifact. There is no evidence of significant ischemia involving large areas of the myocardium. The reported LVEF is 54%. Impression: 1. There is no evidence of significant ischemia. 2. Estimated ejection fraction is 54%. This note was generated with [employer] dictation software. It may contain incorrect words, spelling, and punctuation that were not noted in checking the note before signing. Consultations 02/24/20 03:10 Consult: Onc/Wound/contractor general building Routine Comment: Operations: None Procedures: Stress test Summary of Care Provided: Mr. Russell is a 69 year old M presented to the ED at [facility] with palpitations and chest pressure on 02/23/2020. He has had this intermittently but was more persistent and he became concerned. His work-up in the ED was unremarkable and had no further symptoms but given patient's comorbidities, it was felt most appropriate to admit the patient and do further cardiac evaluation with a stress test. His troponin was WNL x 2 and he did Lexiscan stress test that was negative for inducible ischemia. He missed his HD today but Dr. Mcleod got him set up for outpt HD tomorrow at 1 pm and then he will resume his normal TTS schedule. He was discharged in stable condition. Patient Problems: Active and Suspected Problems (Last Updated 02/24/20 @ 03:[address] Guillermo Fuchs, ) Chest pain at rest (Acute) Chest pain (Acute) Subjective: Pt states that he is feeling well. No chest pain and states that he thinks now that it may be more musculoskeletal. - Physical Exam Vitals/I&O's: Vital Signs Temp Pulse Resp BP Pulse Ox 98.0 F 108 H 17 112/65 97 02/24/20 08:36 02/24/20 08:36 02/24/20 08:36 02/24/20 08:36 02/24/20 08:36 Oxygen Flow Rate (L/min) 2 Oxygen Delivery Method Venturi Mask Weight: 123.9 kg Body Mass Index (BMI) 39.2 Intake and Output for Last 24 Hours 02/22/20 02/23/20 02/24/20 23:59 23:59 23:59 Intake Total 120 / 120 Balance 120 / 120 General: Alert, Oriented x3, Cooperative, No apparent distress, Well developed, Well nourished, - - Obese WM sitting up in a chair asleep but awakens easily HEENT: Atraumatic, Normocephalic Neck: Supple, - - Tunneled L IJ vasc cath in place Lungs: Clear to auscultation, Normal air movement, No rhonchi, No wheeze, No rales Cardiovascular: Regular rate, Regular Rhythm, Normal S1, Normal S2, No murmurs, No Ectopic Activity, No rub noted, No Gallop Abdomen: Bowel Sounds Present, Soft, Non Tender, Non-Distended, No Hepato-splenomegaly, Obese Extremities: No clubbing, No cyanosis, Diminished Peripheral Pulses - suspect 2/2 edema, Edema Neurological: Neuro grossly intact Psych/Mental Status: Normal Affect, Appropriate, Alert and oriented to time, place, person, mood and affect Laboratory Results 02/24/20 01:35: WBC 9.0, RBC 2.68 L, Hgb 8.2 L, Hct 27.6 L, MCV 103.0 H, MCH 30.6, MCHC 29.7 L, RDW Std Deviation 58.4 H, RDW Coeff of Inocencio 15.6 H, Plt Count 206, MPV 12.2 H, Immature Gran % (Auto) 0.600, Neut % (Auto) 67.2, Lymph % (Auto) 15.7 L, [place] % (Auto) 9.0, Eos % (Auto) 7.2 H, Baso % (Auto) 0.3, Absolute Neuts (auto) 6.0, Absolute Lymphs (auto) 1.41, Nucleated RBC % 0 02/24/20 01:35: Sodium 142, Potassium 3.7, Chloride 102, Carbon Dioxide 32.0, Anion Gap 8, BUN 36 H, Creatinine 3.94 H, Estim Creat Clear Calc 18.01, Est GFR (MDRD) Af Amer 20 L, Est GFR (MDRD) Non-Af 16 L, BUN/Creatinine Ratio 9.1 L, Glucose 112 H, Calcium 9.1, Troponin I < 0.015 02/24/20 04:58: Troponin I < 0.015 02/24/20 07:10: Troponin I < 0.015 Current Medications Acetaminophen (Acetaminophen 325 Mg Tablet) 650 mg PO Q6H PRN PRN PRN Reason: Pain Score 1-10/Temp > 100.7 F [facility]ol ([facility] 300 Mg [facility]) [facility] Last Admin: 02/24/20 11:09 Dose: 300 mg Documented by: Ascorbic Acid (Ascorbic Acid 500 Mg Tablet) 500 mg PO DAILY [facility] Last Admin: 02/24/20 11:09 Dose: 500 mg Documented by: Atorvastatin Calcium (Atorvastatin Calcium 20 Mg Tablet) 20 mg PO QHS [facility] Cholecalciferol (Cholecalciferol (Vit D3) 1,000 Unit (25mcg)) 5,000 unit PO DAILY [facility] Last Admin: 02/24/20 11:08 Dose: 5,000 unit Documented by: Cyanocobalamin (Cyanocobalamin 500 Mcg Tablet) 1,000 mcg PO DAILY [facility] Last Admin: 02/24/20 11:09 Dose: 1,000 mcg Documented by: Sodium Chloride () 250 mls @ 15 mls/hr IV .[id number] PRN PRN Reason: Saline Flush Sodium Chloride () 250 mls @ 15 mls/hr IV .[id number] PRN PRN Reason: Additional IVPB Infusion Nitroglycerin (Nitroglycerin (Inpatient Use) 0.4 Mg Tab.Subl) 0.4 mg SUBLINGUAL Q5M PRN PRN Reason: CARDIAC/CHEST PAIN Nystatin (Nystatin Powder 15gm Bottle) 1 applic TOPICAL TID [facility]; Protocol Last Admin: 02/24/20 09:53 Dose: Not Given Documented by: Ondansetron HCl (Ondansetron 4 Mg/2 Ml Vial) 4 mg IV Q8H PRN PRN PRN Reason: NAUSEA/VOMITING Oxycodone HCl (Oxycodone 5 Mg Tablet) 5 mg PO Q4H PRN PRN PRN Reason: Pain Score 4-5 Oxycodone HCl (Oxycodone 5 Mg Tablet) 10 mg PO Q4H PRN PRN PRN Reason: Pain Score 6-10 Sodium Chloride (0.9% Saline Lock 10 Ml Syringe) 10 - 40 ml IV UD PRN PRN Reason: SALINE FLUSH Discharge Activity: Return to Normal Activity, No Restrictions, May Drive Home Medications: Medications to take at Discharge Ascorbic Acid [Vitamin C] 500 mg PO DAILY 03/08/17 allopurinol 300 mg tablet 300 mg PO DAILY 08/23/19 cholecalciferol (vitamin D3) 125 mcg (5,000 unit) capsule 125 mcg PO DAILY 08/23/19 cyanocobalamin (vitamin B-12) 1,000 mcg capsule 1,000 mcg PO DAILY 08/24/19 omega-3 fatty acids 1,000 mg capsule 1,000 mg PO DAILY 08/24/19 Simvastatin 40 mg PO QHS 10/06/19 Ferrous Sulfate 325 mg PO DAILY 12/16/19 Nystatin Powder [Mycostatin Powder] 1 applic TOPICAL TID 12/19/19 Menthol/Lanolin/Calamine/Znox [Calmoseptine Ointment] 1 applic TOPICAL BID tube 01/31/20 Primary Care Physician: Han Adrian MD [Primary Care Provider] - Please follow up with your Primary Care Physician in: 1-2 weeks for hospital f/u Please Follow Up With: HD When: tomorrow Medical Necessity - Tobacco Use Smoking Status: Former smoker Meaningful Use Info Meaningful Use Diagnoses (Choose all that apply): None applicable Inpatient E&M: [id number] [facility]
== END 2020-02-24 14:03 | disposition home or self-care (01) ==
LOC: ED 02:43 → PCU 03:13
PROVIDERS: Emergency Provider Emergency Medicine; PCP Family Medicine; Visit Provider Internal Medicine
DX: R07.89 Other chest pain (principal); G47.33 Obstructive sleep apnea (adult) (pediatric); E66.01 Morbid (severe) obesity due to excess calories; E11.22 Type 2 diabetes mellitus with diabetic chronic kidney disease; E11.40 Type 2 diabetes mellitus with diabetic neuropathy, unspecified; I50.32 Chronic diastolic (congestive) heart failure; I13.2 Hypertensive heart and chronic kidney disease with heart failure and with stage 5 chronic kidney disease, or end stage renal disease; N18.6 End stage renal disease; M10.9 Gout, unspecified; E78.5 Hyperlipidemia, unspecified; J44.9 Chronic obstructive pulmonary disease, unspecified; D50.9 Iron deficiency anemia, unspecified; I87.2 Venous insufficiency (chronic) (peripheral); J96.11 Chronic respiratory failure with hypoxia; I44.4 Left anterior fascicular block; D63.8 Anemia in other chronic diseases classified elsewhere; Z79.899 Other long term (current) drug therapy; Z99.2 Dependence on renal dialysis; Z87.891 Personal history of nicotine dependence; Z68.41 Body mass index [BMI] 40.0-44.9, adult
CPT/HCPCS: 36415; 71046; 78452; 80048; 84484; 85025; 93005; 93017; 99218; 99283; 99285; A9500; A4216; G0378; J2785

== ENCOUNTER 2020-03-03 11:34 | Outpatient (RCR) | payer MEDICARE, OTHER, SELFPAY ==
[2019-12-23 14:51] VITALS: BMI 43.8
[2020-01-11 00:28] VITALS: BP 133/46; PULSE 96; RESP 18; TEMP 36.7; O2SAT 98
[2020-02-24 03:10] VITALS: BMI 39.2
[2020-03-03 11:52] VITALS: BP 98/56; PULSE 111; RESP 18; TEMP 36.6; BMI 39.2
--- NOTE | 2020-03-03 14:56 | HP.PCM_ITS ---
(1) Ulcer of right lower extremity with fat layer exposed Status: Chronic Code(s): L97.912 - Non-pressure chronic ulcer of unspecified part of right lower leg with fat layer exposed (2) Obesity Status: Chronic Qualifiers: Obesity type: unspecified obesity type Obesity classification: adult class 3 (BMI >= 40) Serious obesity comorbidity presence: unspecified whether serious comorbidity present Body mass index: BMI 40.0-44.9 Qualified Code(s): E66.01 - Morbid (severe) obesity due to excess calories; Z68.41 - Body mass index [BMI]40.0-44.9, adult Code(s): E66.9 - Obesity, unspecified (3) CKD (chronic kidney disease), stage III Status: Chronic Code(s): N18.3 - Chronic kidney disease, stage 3 (moderate) (4) Chronic acquired lymphedema Status: Chronic Code(s): I89.0 - Lymphedema, not elsewhere classified (5) Stage 3 severe COPD by GOLD classification Status: Chronic Code(s): J44.9 - Chronic obstructive pulmonary disease, unspecified (6) Cellulitis Status: Resolved Qualifiers: Site of cellulitis: extremity Site of cellulitis of extremity: lower extremity Laterality: unspecified laterality Qualified Code(s): L03.119 - Cellulitis of unspecified part of limb Code(s): L03.90 - Cellulitis, unspecified (7) Chronic kidney disease with end stage 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 Status: Chronic Code(s): N18.6 - End stage renal disease; Z99.2 - Dependence on renal dialysis (8) Type 2 diabetes mellitus Status: Chronic Qualifiers: Diabetes mellitus intermission coordinator insulin use: unspecified intermission coordinator insulin use status Diabetes mellitus complication status: with kidney complications Diabetes mellitus complication detail: with nephropathy Qualified Code(s): E11.21 - Type 2 diabetes mellitus with diabetic nephropathy Code(s): E11.9 - Type 2 diabetes mellitus without complications History of Present Illness Date of Service: 03/03/20 Chief Complaint: Right lower extremity ulcer, cellulitis and edema b/l LE History of Wound: Mr. Russell is a 69 yo well-known to the wound center who presents due to new (recurrent) left lower extremity ulcer. Said to have started about a week ago. He initially noted increased fluid drainage and increased swelling and then erythema. Denies chills, fever or otherwise feeling of unwell. Home health nurse was concerned as well due to significant foul smell. Past Medical History Past Medical History: Chronic Problems (Last Reviewed 03/03/20 @ 13:28 by Darlene Rose) Ulcer of left lower extremity with fat layer exposed (Chronic) Ulcer of left foot (Chronic) Ulcer of right lower extremity with fat layer exposed (Chronic) HERN[place]N (obstructive sleep apnea) (Chronic) Obesity (Chronic) CKD (chronic kidney disease), stage III (Chronic) Morbid obesity (Chronic) Chronic acquired lymphedema (Chronic) Debility (Chronic) Chronic diastolic (congestive) heart failure (Chronic) Venous stasis dermatitis (Chronic) Respiratory failure, chronic (Chronic) Stage 3 severe COPD by GOLD classification (Chronic) Nonrheumatic aortic (valve) stenosis (Chronic) Chronic anemia (Chronic) Chronic kidney disease (Chronic) Chronic kidney disease with end stage 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 (Chronic) Cardiac murmur (Chronic) Essential hypertension (Chronic) Gout (Chronic) Type 2 diabetes mellitus (Chronic) Iron deficiency anemia (Chronic) Hyperlipidemia (Chronic) Surgical History: tonsillectomy, - - arteriovenous fistula Allergies/Adverse Reactions: Allergies No Known Allergies Allergy (Verified 03/03/20 13:33) Home Medications: Ambulatory Orders Medication Instructions Recorded Ascorbic Acid [Vitamin C] 500 mg PO DAILY 03/08/17 allopurinol 300 mg tablet 300 mg PO DAILY 08/23/19 cholecalciferol (vitamin D3) 125 125 mcg PO DAILY 08/23/19 mcg (5,000 unit) capsule cyanocobalamin (vitamin B-12) 1,000 mcg PO DAILY 08/24/19 1,000 mcg capsule omega-3 fatty acids 1,000 mg 1,000 mg PO DAILY 08/24/19 capsule Simvastatin 40 mg PO QHS 10/06/19 Ferrous Sulfate 325 mg PO DAILY 12/16/19 Nystatin Powder [Mycostatin Powder] 1 applic TOPICAL TID 12/19/19 Menthol/Lanolin/Calamine/Znox 1 applic TOPICAL BID tube 01/31/20 [Calmoseptine Ointment] - Family History Maternal Family History: Family History (Last Reviewed 03/03/20 @ 13:28 by Darlene Rose) Mother Cancer Father Hypertension Cancer - Mother with history of ovarian cancer. Paternal Family History: Family History (Last Reviewed 03/03/20 @ 13:28 by Darlene Rose) Mother Cancer Father Hypertension Hypertension, - - Head trauma. Lives: Alone Smoking Status: Former smoker Tobacco Use: Non-smoker Alcohol: None Drugs: None Review of Systems Constitutional: Denies: Chills, Fever, Weight Change Eyes: Denies: Pain, Vision Change HEENT: Denies: Difficulty Hearing, Difficulty Swallowing, Sinus Congestion Cardiovascular: Denies: Chest Pain, Palpitations Respiratory: Denies: Cough, Shortness of Breath Gastrointestinal: Denies: Diarrhea, Nausea, Vomiting Musculoskeletal: Reports: Joint Pain Skin: Reports: Wounds Endocrine: Denies: Heat/ Cold Intolerance, Polydipsia, Polyuria Hematologic/ Lymphatic: Denies: Easy Bruising, Easy Bleeding - Physical Exam Vital Signs Temp Pulse Resp BP Pulse Ox 98 F 111 H 18 98/56 L 98 03/03/20 11:52 03/03/20 11:52 03/03/20 11:52 03/03/20 11:52 01/11/20 00:28 General: Alert, Oriented x3, Cooperative, No apparent distress HEENT: Atraumatic, Normocephalic Oral: Moist Mucosa Lungs: Clear to auscultation Cardiovascular: Regular rate, Regular Rhythm Abdomen: Obese Extremities: Edema Skin: Ulcer/ Wound Wound Measurements and Assessment WC - Nurse 1 - General Ulcer Measurement Start: 03/03/20 11:48 Freq: Status: Active Protocol: Activity Type Activity Date Activity User E-Sign Co-Sign Detail Recorded Client Recorded Date Recorded By Document 03/03/20 11:49 [id number] 03/03/20 11:51 RB 03/03/20 11:49 Wound Center Nurse 1 [Ulcer Assessment] 17. right luz -Combined with other wound No -Current Size (cm) - Length 6 -Current Size (cm) - Width 7 -Current Size (cm) - Depth 0.1 -Total Square Cm 42 -Tunneling No -Undermining/Tunneling No -Circular Undermining No -Exudate Amt Large -Exudate Type Serosanguineous -Wound Margin Flat & Intact -Granulation Amt Medium (34-66%) -Granulation Quality [place],Red -Slough/Fibrin Yes -Necrosis Amt Small (1-33%) -Necrotic Tissue Type Adherent Slough -Structure Exposed N/A -Texture (Jaylyn-wound Skin Appearance) Assessed, Excoriation -Moisture (Jaylyn-wound Skin Appearance Assessed ) -Color (Jaylyn-wound Skin Appearance) Assessed -Temperature (Jaylyn-wound Skin No Abnormality Appearance) (Pt Warm) -Tenderness on Palpation (Jaylyn-wound No Skin Appearance) -Ulcer Cleansing Wound Cleanser -Foul Odor after Cleansing No -Anesthetic Used 4% Lidocaine Solution [Edema Assessment] -Lower Limb Edema Present Yes -Right Calf (cm) 45.2 -Right Ankle (cm) 30 -Left Calf (cm) 50 -Left Ankle (cm) 33.5 WC - Nurse 2 - General Ulcer CM Notes Start: 03/03/20 11:48 Freq: Status: Active Protocol: Activity Type Activity Date Activity User E-Sign Co-Sign Detail Recorded Client Recorded Date Recorded By Document 03/03/20 11:57 MW [id number] 03/03/20 12:08 MW 03/03/20 11:57 Wound Center Nurse 2 [Procedure/Treatment] 17. right luz -Time 12:03 -Correct Patient Yes -Correct Side, Site, Position Yes -Correct Procedure Yes -Procedure Performed Yes -Type of Procedure Debridement -Clinical Debridement Epidermis / Dermis -Tissue Removed Epidermis -Post Debridement (cm) - Length 6.0 -Post Debridement (cm) - Width 7.0 -Post Debridement (cm) - Depth 0.1 -Total Square (Post) (cm) 42.00 -Area of Debridement (cm) - Length 6.0 -Area of Debridement (cm) - Width 7.0 -Total Square (Area) (cm) 42.00 -Tunneling No -Undermining/Tunneling No -Circular Undermining No -Wound/Ulcer Outcome Not Healed -Ulcer Cleansing Rinsed/ Irrigated with Saline -Foul Odor after Cleansing No -Bioengineered Tissue No -Bleeding Controlled with Pressure -Offloading No -Debridement - Open, 1st 20sq cm Yes -Debridement, Open, ea addt'l 20sq cm 2 or part thereof [See Physician Procedure note for Specifics] Pain Scale: 0-10 Numeric [Pain] -Is Patient Pain Free? Yes WC - Nurse 3 - General Ulcer D/C NN Start: 03/03/20 11:48 Freq: Status: Active Protocol: Activity Type Activity Date Activity User E-Sign Co-Sign Detail Recorded Client Recorded Date Recorded By Document 03/03/20 12:11 MW [id number] 03/03/20 12:20 MW 03/03/20 12:11 Wound Care Nurse 3 [Wound Dressing] 17. right luz -Ulcer Cleansing Rinsed/ Irrigated with Saline -Foul Odor after Cleansing No -Negative Pressure Wound Therapy N/A -Primary Dressing Applied Aquacel Extra -Primary Dressing Covered/Secured Dry Gauze with -Aquacel Extra 1 [Compression Applied] Right -Lotion applied to leg before No compression wrap -Multi-Layered Wrap Application Unna Boot - Bilateral ($) -Unna Boots (Bilat) ($) 0 Left -Lotion applied to leg before No compression wrap -Multi-Layered Wrap Application Unna Boot - Bilateral ($) -Unna Boots (Bilat) ($) 2 [Post Procedure Tolerated] -Treatment Response Procedure Tolerated Well Teaching: Wound Center [Wound Center Education] (Items with an * have Printed Materials Available- Please identify what is given to patient under the Teaching materials given to patient and caregiver Section. Control Swelling with Leg Elevation -Person Taught Patient -Teaching Method Discussion -Response to teaching Verbalize understanding WC - Visit Discharge [Visit Discharge Information] -Discharge Condition Stable -Ambulatory Status Ambulatory, Walker -Transportation Private Auto -Accompanied by sister -Medication Reconcilliation completed No & provided to patient/care provider -Clinical Summary of Care Provided Yes Psych/Mental Status: Normal Affect, Appropriate Debridement Note Post-Debridement Measurements/Treatment WC - Nurse 2 - General Ulcer CM Notes Start: 03/03/20 11:48 Freq: Status: Active Protocol: Activity Type Activity Date Activity User E-Sign Co-Sign Detail Recorded Client Recorded Date Recorded By Document 03/03/20 11:57 MW [id number] 03/03/20 12:08 MW 03/03/20 11:57 Wound Center Nurse 2 17. right luz -Time 12:03 -Correct Patient Yes -Correct Side, Site, Position Yes -Correct Procedure Yes -Procedure Performed Yes -Type of Procedure Debridement -Clinical Debridement Epidermis / Dermis -Tissue Removed Epidermis -Post Debridement (cm) - Length 6.0 -Post Debridement (cm) - Width 7.0 -Post Debridement (cm) - Depth 0.1 -Total Square (Post) (cm) 42.00 -Area of Debridement (cm) - Length 6.0 -Area of Debridement (cm) - Width 7.0 -Total Square (Area) (cm) 42.00 -Tunneling No -Undermining/Tunneling No -Circular Undermining No -Wound/Ulcer Outcome Not Healed -Ulcer Cleansing Rinsed/ Irrigated with Saline -Foul Odor after Cleansing No -Bioengineered Tissue No -Bleeding Controlled with Pressure -Offloading No -Debridement - Open, 1st 20sq cm Yes -Debridement, Open, ea addt'l 20sq cm 2 or part thereof Pain Scale: 0-10 Numeric Is Patient Pain Free? Yes - Nurse 3 - General Ulcer D/C NN Start: 03/03/20 11:48 Freq: Status: Active Protocol: Activity Type Activity Date Activity User E-Sign Co-Sign Detail Recorded Client Recorded Date Recorded By Document 03/03/20 12:11 MW [id number] 03/03/20 12:20 MW 03/03/20 12:11 Wound Care Nurse 3 17. right luz -Ulcer Cleansing Rinsed/ Irrigated with Saline -Foul Odor after Cleansing No -Negative Pressure Wound Therapy N/A -Primary Dressing Applied Aquacel Extra -Primary Dressing Covered/Secured with Dry Gauze -Aquacel Extra 1 Right -Lotion applied to leg before No compression wrap -Multi-Layered Wrap Application Unna Boot - Bilateral ($) -Unna Boots (Bilat) ($) 0 Left -Lotion applied to leg before No compression wrap -Multi-Layered Wrap Application Unna Boot - Bilateral ($) -Unna Boots (Bilat) ($) 2 Treatment Response Procedure Tolerated Well Teaching: Wound Center Control Swelling with Leg Elevation -Person Taught Patient -Teaching Method Discussion -Response to teaching Verbalize understanding - Visit Discharge Discharge Condition Stable Ambulatory Status Ambulatory, Walker Transportation Private Auto Accompanied by sister Medication Reconcilliation completed & No provided to patient/care provider Clinical Summary of Care Provided Yes Wound debrided: right luz Laterality: Right Type of Debridement: Selective debridement Anesthesia Used: 4% Lidocaine Solution Depth: Down to and including healthy tissue, in the subcutaneous layer Percentage of wound debrided: 100 Instrument Used: - - gauze Tissue Removed: Yellow slough, devitalized tissue Severity: Fat Layer Exposed Amount of bleeding with debridement: Mild Bleeding Controlled with: Compression and gauze Patient tolerated procedure well Assessment/Plan Assessment: Recurrent right lower extremity ulcer. Chronic lymphedema. Morbid obesity. Plan: Mr. Russell's ulcer and his cellulitis were evaluated and debrided today. He was given a prescription for levofloxacin to fill with dosing based on his dialysis. Will dress his ulcer with Aquacel and then wrap his legs with UNNA boot compression with change of UNNA boot on Friday or Friday by Home Health. He was advised to use his compression pumps before dialysis and be vigilant with elevating his legs to avoid worsening of his edema which causes the cellulitis and ulcers. Call with worsening pain, drainage or odor. F/U in 1 week
[2020-03-10 11:17] VITALS: BP 123/66; PULSE 106; RESP 20; TEMP 36.8; BMI 39.2
--- NOTE | 2020-03-10 14:24 | PCM.WC.PN ---
(1) Ulcer of right lower extremity with fat layer exposed Status: Chronic Code(s): L97.912 - Non-pressure chronic ulcer of unspecified part of right lower leg with fat layer exposed (2) Obesity Status: Chronic Qualifiers: Obesity type: unspecified obesity type Obesity classification: adult class 3 (BMI >= 40) Serious obesity comorbidity presence: unspecified whether serious comorbidity present Body mass index: BMI 40.0-44.9 Qualified Code(s): E66.01 - Morbid (severe) obesity due to excess calories; Z68.41 - Body mass index [BMI]40.0-44.9, adult Code(s): E66.9 - Obesity, unspecified (3) CKD (chronic kidney disease), stage III Status: Chronic Code(s): N18.3 - Chronic kidney disease, stage 3 (moderate) (4) Chronic acquired lymphedema Status: Chronic Code(s): I89.0 - Lymphedema, not elsewhere classified (5) Stage 3 severe COPD by GOLD classification Status: Chronic Code(s): J44.9 - Chronic obstructive pulmonary disease, unspecified (6) Cellulitis Status: Resolved Qualifiers: Site of cellulitis: extremity Site of cellulitis of extremity: lower extremity Laterality: unspecified laterality Qualified Code(s): L03.119 - Cellulitis of unspecified part of limb Code(s): L03.90 - Cellulitis, unspecified (7) Chronic kidney disease with end stage 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 Status: Chronic Code(s): N18.6 - End stage renal disease; Z99.2 - Dependence on renal dialysis (8) Type 2 diabetes mellitus Status: Chronic Qualifiers: Diabetes mellitus regional intermodal truck driver insulin use: unspecified regional intermodal truck driver insulin use status Diabetes mellitus complication status: with kidney complications Diabetes mellitus complication detail: with nephropathy Qualified Code(s): E11.21 - Type 2 diabetes mellitus with diabetic nephropathy Code(s): E11.9 - Type 2 diabetes mellitus without complications Type of Wound Date of Service: 03/10/20 Chief Complaint: Right lower extremity ulcer, cellulitis and edema b/l LE History of Wound: Mr. Russell is a 69 yo well-known to the wound center who presents due to new (recurrent) left lower extremity ulcer. Said to have started about a week ago. He initially noted increased fluid drainage and increased swelling and then erythema. Denies chills, fever or otherwise feeling of unwell. Home health nurse was concerned as well due to significant foul smell. Progress of Wound: Mr. Russell presents today with improvement in his edema and healing of the ulcers present on his lower extremities. He tolerated UNNA boot compression and has been trying to use compression pumps more faithfully prior to his dialysis. - Physical Exam Vital Signs Temp Pulse Resp BP Pulse Ox 98.2 F 106 H 20 H 123/66 H 98 03/10/20 11:17 03/10/20 11:17 03/10/20 11:17 03/10/20 11:17 01/11/20 00:28 General: Alert, Oriented x3, Cooperative, No apparent distress HEENT: Atraumatic, Normocephalic Oral: Moist Mucosa Abdomen: Soft, Non Tender, Obese Extremities: No cyanosis, Edema Skin: Ulcer/ Wound Wound Measurements and Assessment WC - Nurse 1 - General Ulcer Measurement Start: 03/03/20 11:48 Freq: Status: Active Protocol: Activity Type Activity Date Activity User E-Sign Co-Sign Detail Recorded Client Recorded Date Recorded By Document 03/10/20 11:17 [facility] [id number] 03/10/20 11:27 [facility] 03/10/20 11:17 Wound Center Nurse 1 [Ulcer Assessment] 17. right luz -Combined with other wound No -Current Size (cm) - Length 0.1 -Current Size (cm) - Width 0.1 -Current Size (cm) - Depth 0.1 -Total Square Cm 0.01 -Epithelialization Large 67-100% -Tunneling No -Undermining/Tunneling No -Circular Undermining No -Exudate Amt None Present -Texture (Jaylyn-wound Skin Appearance) Assessed, Scarring -Moisture (Jaylyn-wound Skin Appearance Assessed,Dry/ ) Scaly -Color (Jaylyn-wound Skin Appearance) Assessed, Erythema -Temperature (Jaylyn-wound Skin No Abnormality Appearance) (Pt Warm) -Tenderness on Palpation (Jaylny-wound No Skin Appearance) -Ulcer Cleansing soapy water -Foul Odor after Cleansing No -Anesthetic Used 4% Lidocaine Solution [Edema Assessment] -Lower Limb Edema Present Yes -Right Calf (cm) 43.7 -Right Ankle (cm) 30.3 -Left Calf (cm) 47.5 -Left Ankle (cm) 32 WC - Nurse 2 - General Ulcer CM Notes Start: 03/03/20 11:48 Freq: Status: Active Protocol: Activity Type Activity Date Activity User E-Sign Co-Sign Detail Recorded Client Recorded Date Recorded By Document 03/10/20 11:56 MW [id number] 03/10/20 12:00 MW 03/10/20 11:56 Wound Center Nurse 2 [Procedure/Treatment] 17. right luz -Time 11:57 -Correct Patient Yes -Correct Side, Site, Position Yes -Correct Procedure Yes -Procedure Performed No -Post Debridement (cm) - Length 0 -Post Debridement (cm) - Width 0 -Post Debridement (cm) - Depth 0 -Total Square (Post) (cm) 0 [See Physician Procedure note for Specifics] Pain Scale: 0-10 Numeric [Pain] -Is Patient Pain Free? Yes - Nurse 3 - General Ulcer D/C NN Start: 03/03/20 11:48 Freq: Status: Active Protocol: Activity Type Activity Date Activity User E-Sign Co-Sign Detail Recorded Client Recorded Date Recorded By Document 03/10/20 12:14 [facility] [id number] 03/10/20 12:15 [facility] 03/10/20 12:14 Wound Care Nurse 3 [Compression Applied] Right -Multi-Layered Wrap Application Unna Boot - Bilateral ($) -Unna Boots (Bilat) ($) 2 Left -Other unna boot [Post Procedure Tolerated] -Treatment Response Procedure Tolerated Well Pain Scale: 0-10 Numeric [Pain] -Is Patient Pain Free? Yes - Visit Discharge [Visit Discharge Information] -Discharge Condition Stable -Ambulatory Status Ambulatory, Walker -Transportation Private Auto [Facility Notification] -Facility Type Home Health Psych/Mental Status: Normal Affect, Appropriate Debridement Note Post-Debridement Measurements/Treatment WC - Nurse 2 - General Ulcer CM Notes Start: 03/03/20 11:48 Freq: Status: Active Protocol: Activity Type Activity Date Activity User E-Sign Co-Sign Detail Recorded Client Recorded Date Recorded By Document 03/03/20 11:57 MW [id number] 03/03/20 12:08 MW Document 03/10/20 11:56 MW [id number] 03/10/20 12:00 MW 03/03/20 03/10/20 11:57 11:56 Wound Center Nurse 2 17. right luz -Time 12:03 11:57 -Correct Patient Yes Yes -Correct Side, Site, Position Yes Yes -Correct Procedure Yes Yes -Procedure Performed Yes No -Type of Procedure Debridement -Clinical Debridement Epidermis / Dermis -Tissue Removed Epidermis -Post Debridement (cm) - Length 6.0 0 -Post Debridement (cm) - Width 7.0 0 -Post Debridement (cm) - Depth 0.1 0 -Total Square (Post) (cm) 42.00 0 -Area of Debridement (cm) - Length 6.0 -Area of Debridement (cm) - Width 7.0 -Total Square (Area) (cm) 42.00 -Tunneling No -Undermining/Tunneling No -Circular Undermining No -Wound/Ulcer Outcome Not Healed -Ulcer Cleansing Rinsed/ Irrigated with Saline -Foul Odor after Cleansing No -Bioengineered Tissue No -Bleeding Controlled with Pressure -Offloading No -Debridement - Open, 1st 20sq cm Yes -Debridement, Open, ea addt'l 20sq cm 2 or part thereof Pain Scale: 0-10 Numeric Is Patient Pain Free? Yes Yes - Nurse 3 - General Ulcer D/C NN Start: 03/03/20 11:48 Freq: Status: Active Protocol: Activity Type Activity Date Activity User E-Sign Co-Sign Detail Recorded Client Recorded Date Recorded By Document 03/03/20 12:11 MW [id number] 03/03/20 12:20 MW Document 03/10/20 12:14 [facility] [id number] 03/10/20 12:15 BMF 03/03/20 03/10/20 12:11 12:14 Wound Care Nurse 3 17. right luz -Ulcer Cleansing Rinsed/ Irrigated with Saline -Foul Odor after Cleansing No -Negative Pressure Wound Therapy N/A -Primary Dressing Applied Aquacel Extra -Primary Dressing Covered/Secured with Dry Gauze -Aquacel Extra 1 Right -Lotion applied to leg before No compression wrap -Multi-Layered Wrap Application Unna Boot - Unna Boot - Bilateral ($) Bilateral ($) -Unna Boots (Bilat) ($) 2 2 Left -Lotion applied to leg before No compression wrap -Other unna boot Treatment Response Procedure Procedure Tolerated Well Tolerated Well Pain Scale: 0-10 Numeric Is Patient Pain Free? Yes Teaching: Wound Center Control Swelling with Leg Elevation -Person Taught Patient -Teaching Method Discussion -Response to teaching Verbalize understanding WC - Visit Discharge Discharge Condition Stable Stable Ambulatory Status Ambulatory, Ambulatory, Walker Walker Transportation Private Auto Private Auto Accompanied by sister Medication Reconcilliation completed & No provided to patient/care provider Clinical Summary of Care Provided Yes Facility Type Home Health Wound debrided: right luz Laterality: Right No debridement was completed today - healed Assessment/Plan Active Problems (Last Reviewed 03/03/20 @ 13:28 by Darlene Rose) Ulcer of right lower extremity with fat layer exposed (Chronic) Obesity (Chronic) CKD (chronic kidney disease), stage III (Chronic) Chronic acquired lymphedema (Chronic) Stage 3 severe COPD by GOLD classification (Chronic) Chronic kidney disease with end stage 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 (Chronic) Type 2 diabetes mellitus (Chronic) Assessment: Recurrent right lower extremity ulcer. Chronic lymphedema. Morbid obesity. Plan: Mr. Russell's ulcer and his cellulitis were evaluated today with notable improvement and resolution of cellulitis. He will complete his prescription for levofloxacin. Will continue UNNA boot compression with change of UNNA boot on Friday or Friday by Home Health and plan to discharge if maintained improvement next week with use of Circaid compression. He was advised to use his compression pumps before dialysis and be vigilant with elevating his legs to avoid worsening of his edema which causes the cellulitis and ulcers. Call with worsening pain, drainage or odor. F/U in 1 week
== END 2020-03-11 23:59 ==
LOC: WC 11:34
PROVIDERS: Family Provider Family Medicine; PCP Family Medicine; Visit Provider Internal Medicine
DX: E11.622 Type 2 diabetes mellitus with other skin ulcer (principal); E11.22 Type 2 diabetes mellitus with diabetic chronic kidney disease; L97.812 Non-pressure chronic ulcer of other part of right lower leg with fat layer exposed; N18.6 End stage renal disease; I89.0 Lymphedema, not elsewhere classified; J44.9 Chronic obstructive pulmonary disease, unspecified; E66.01 Morbid (severe) obesity due to excess calories; Z68.41 Body mass index [BMI] 40.0-44.9, adult; G47.33 Obstructive sleep apnea (adult) (pediatric); I50.32 Chronic diastolic (congestive) heart failure; I13.2 Hypertensive heart and chronic kidney disease with heart failure and with stage 5 chronic kidney disease, or end stage renal disease; E78.5 Hyperlipidemia, unspecified; J96.10 Chronic respiratory failure, unspecified whether with hypoxia or hypercapnia; Z87.891 Personal history of nicotine dependence; Z99.2 Dependence on renal dialysis
CPT/HCPCS: 29580; 97597; 97598; 99213; G0463

== ENCOUNTER 2020-03-17 11:30 | Outpatient (RCR) | payer MEDICARE, OTHER, SELFPAY ==
[2020-03-12 00:06] VITALS: BP 123/66; PULSE 106; RESP 20; TEMP 36.8; O2SAT 98; BMI 37.6
[2020-03-17 10:55] VITALS: BP 126/63; PULSE 116; RESP 18; TEMP 36.3; BMI 37.6
--- NOTE | 2020-03-17 12:06 | PCM.WC.PN ---
(1) Lymphedema of both lower extremities Status: Chronic Code(s): I89.0 - Lymphedema, not elsewhere classified (2) Ulcer of left lower extremity with fat layer exposed Status: Chronic Code(s): L97.922 - Non-pressure chronic ulcer of unspecified part of left lower leg with fat layer exposed Type of Wound Date of Service: 03/17/20 Chief Complaint: Right lower extremity ulcer, cellulitis and edema b/l LE History of Wound: Mr. Russell is a 69 yo well-known to the wound center who presents due to new (recurrent) left lower extremity ulcer. Said to have started about a week ago. He initially noted increased fluid drainage and increased swelling and then erythema. Denies chills, fever or otherwise feeling of unwell. Home health nurse was concerned as well due to significant foul smell. Progress of Wound: Mr. Russell presents today with improvement in his edema and healing of the ulcers present on his lower extremities. He tolerated UNNA boot compression and has been trying to use compression pumps more often. He cut his UNNA boots off and has a shallow laceration of the skin of his left luz but otherwise his legs look well and are healed. - Physical Exam Vital Signs Temp Pulse Resp BP Pulse Ox 97.3 F L 116 H 18 126/63 H 98 03/17/20 10:55 03/17/20 10:55 03/17/20 10:55 03/17/20 10:55 03/12/20 00:06 General: Alert, Oriented x3, Cooperative, No apparent distress HEENT: Atraumatic, Normocephalic Oral: Moist Mucosa Abdomen: Obese Extremities: Edema Skin: Ulcer/ Wound Wound Measurements and Assessment WC - Nurse 1 - General Ulcer Measurement Start: 03/17/20 10:55 Freq: Status: Discharge Protocol: Activity Type Activity Date Activity User E-Sign Co-Sign Detail Recorded Client Recorded Date Recorded By Document 03/17/20 10:55 MW [id number] 03/17/20 11:02 MW Edit Status 03/17/20 11:47 ABE [email or web address] Active=>Discharge [id number] 03/17/20 11:47 ABE DAEMON 03/17/20 10:55 Wound Center Nurse 1 [Ulcer Assessment] 17. right luz -Combined with other wound No -Current Size (cm) - Length 0.1 -Current Size (cm) - Width 0.1 -Current Size (cm) - Depth 0.1 -Total Square Cm 0.01 -Photo Taken No -Epithelialization Large 67-100% -Tunneling No -Undermining/Tunneling No -Circular Undermining No -Wound Margin Flat & Intact -Granulation Amt None Present (0 %) -Slough/Fibrin No -Necrosis Amt None Present (0 %) -Ulcer Cleansing soap and water -Foul Odor after Cleansing No #16 left medial LE -Ulcer Cleansing soap and water [Edema Assessment] -Lower Limb Edema Present Yes -Right Calf (cm) 44.1 -Right Ankle (cm) 30.1 -Left Calf (cm) 47.9 -Left Ankle (cm) 32.1 WC - Nurse 2 - General Ulcer CM Notes Start: 03/17/20 10:55 Freq: Status: Discharge Protocol: Activity Type Activity Date Activity User E-Sign Co-Sign Detail Recorded Client Recorded Date Recorded By Document 03/17/20 11:04 MW [id number] 03/17/20 11:09 MW Edit Status 03/17/20 11:47 BKG DAEMON Active=>Discharge [id number] 03/17/20 11:47 BKG DAEMON 03/17/20 11:04 Wound Center Nurse 2 [Procedure/Treatment] 17. right luz -Time 11:08 -Correct Patient Yes -Correct Side, Site, Position Yes -Correct Procedure Yes -Procedure Performed No -Post Debridement (cm) - Length 0 -Post Debridement (cm) - Width 0 -Post Debridement (cm) - Depth 0 -Total Square (Post) (cm) 0 -Wound/Ulcer Outcome Healed- Epithelialized [See Physician Procedure note for Specifics] Pain Scale: 0-10 Numeric [Pain] -Is Patient Pain Free? Yes - Nurse 3 - General Ulcer D/C NN Start: 03/17/20 10:55 Freq: Status: Discharge Protocol: Activity Type Activity Date Activity User E-Sign Co-Sign Detail Recorded Client Recorded Date Recorded By Document 03/17/20 11:29 MW [id number] 03/17/20 11:31 MW Edit Status 03/17/20 11:47 BKG DAEMON Active=>Discharge [id number] 03/17/20 11:47 BKG DAEMON 03/17/20 11:29 Wound Care Nurse 3 [Compression Applied] Right -Lotion applied to leg before No compression wrap -Size of Tubigrip Used Size F -Size F ($) 1 Left -Lotion applied to leg before No compression wrap -Size of Tubigrip Used Size F -Size F ($) 1 [Post Procedure Tolerated] -Treatment Response Procedure Tolerated Well Teaching: Wound Center [Wound Center Education] (Items with an * have Printed Materials Available- Please identify what is given to patient under the Teaching materials given to patient and caregiver Section. Discharge Instructions -Person Taught Patient -Teaching Method Discussion -Response to teaching Verbalize understanding Compression Wraps & Stockings -Person Taught Patient -Teaching Method Discussion, Demonstration -Response to teaching Verbalize understanding WC - Visit Discharge [Visit Discharge Information] -Discharge Condition Stable -Ambulatory Status Ambulatory, Walker -Transportation Private Auto -Accompanied by self -Medication Reconcilliation completed No & provided to patient/care provider -Clinical Summary of Care Provided Yes Psych/Mental Status: Normal Affect, Appropriate Debridement Note Post-Debridement Measurements/Treatment WC - Nurse 2 - General Ulcer CM Notes Start: 03/17/20 10:55 Freq: Status: Discharge Protocol: Activity Type Activity Date Activity User E-Sign Co-Sign Detail Recorded Client Recorded Date Recorded By Document 03/17/20 11:04 MW [id number] 03/17/20 11:09 MW 03/17/20 11:04 Wound Center Nurse 2 17. right luz -Time 11:08 -Correct Patient Yes -Correct Side, Site, Position Yes -Correct Procedure Yes -Procedure Performed No -Post Debridement (cm) - Length 0 -Post Debridement (cm) - Width 0 -Post Debridement (cm) - Depth 0 -Total Square (Post) (cm) 0 -Wound/Ulcer Outcome Healed- Epithelialized Pain Scale: 0-10 Numeric Is Patient Pain Free? Yes WC - Nurse 3 - General Ulcer D/C NN Start: 03/17/20 10:55 Freq: Status: Discharge Protocol: Activity Type Activity Date Activity User E-Sign Co-Sign Detail Recorded Client Recorded Date Recorded By Document 03/17/20 11:29 MW [id number] 03/17/20 11:31 MW 03/17/20 11:29 Wound Care Nurse 3 Right -Lotion applied to leg before No compression wrap -Size of Tubigrip Used Size F -Size F ($) 1 Left -Lotion applied to leg before No compression wrap -Size of Tubigrip Used Size F -Size F ($) 1 Treatment Response Procedure Tolerated Well Teaching: Wound Center Discharge Instructions -Person Taught Patient -Teaching Method Discussion -Response to teaching Verbalize understanding Compression Wraps & Stockings -Person Taught Patient -Teaching Method Discussion, Demonstration -Response to teaching Verbalize understanding WC - Visit Discharge Discharge Condition Stable Ambulatory Status Ambulatory, Walker Transportation Private Auto Accompanied by self Medication Reconcilliation completed & No provided to patient/care provider Clinical Summary of Care Provided Yes Wound debrided: left luz No debridement was completed today - ulcer healed Assessment/Plan Assessment: Recurrent right lower extremity ulcer. Chronic lymphedema. Morbid obesity. Plan: Mr. Russell's ulcer is healed and edema is improved. Will maintain control of his edema with Circaid compression. Aquacel Ag applied to his laceration of his left luz today to ensure it does not progress to a chronic ulcer. He was advised to use his compression pumps before dialysis and be vigilant with elevating his legs to avoid worsening of his edema which causes the cellulitis and ulcers. Call with worsening pain, drainage or odor. F/U as needed.
== END 2020-03-17 11:46 | disposition home or self-care (01) ==
LOC: WC 11:30
PROVIDERS: Family Provider Family Medicine; PCP Family Medicine; Visit Provider Family Medicine
DX: Z09 Encounter for follow-up examination after completed treatment for conditions other than malignant neoplasm (principal); E66.01 Morbid (severe) obesity due to excess calories; I89.0 Lymphedema, not elsewhere classified
CPT/HCPCS: 99213; G0463

== ENCOUNTER 2020-03-20 05:25 | Day surgery (SDC) | payer MEDICARE, OTHER, SELFPAY ==
[2020-03-03 13:32] VITALS: BMI 37.6
[2020-03-17 10:29] LABS: Mean Corpuscular Hgb 31.7 pg (27.0-32.0); Mean Corpuscular Volume 105.6 fL (80-94); POSITIVE MORPHOLOGY YES; Platelet Count 197 K/mm3 (150-450); RBC Distribution Width CV 18.1 % (11.6-14.6); RBC Distribution Width SD 66.8 fl (35.1-43.9); Red Blood Count 2.84 M/mm3 (4.6-6.2); White Blood Count 7.2 K/mm3 (4.4-11.0)
[2020-03-17 11:08] LABS: Scan Indicated on CBC? Y/N YES- FLAGS NOTED
[2020-03-17 11:12] LABS: Anion Gap 4 (5-15); BUN 15 mg/dL (7-18); BUN/Creat Ratio 4.5 RATIO (10-20); Calcium,Total 9.4 mg/dL (8.5-10.1); Chloride 99 mmol/L (98-107); Creatinine, Serum 3.34 mg/dL (0.70-1.30); EST Glomerular Filtration Rate 20 mL/min (>60); Est Glom Filt Rate - Afr Amer 24 mL/min (>60); Glucose 86 mg/dL (74-106); Potassium 3.7 mmol/L (3.5-5.1); Sodium Level 136 mmol/L (136-145)
[2020-03-17 11:18] LABS: AST(SGOT) 19 U/L (15-37); Alanine Aminotransfer ALT/SGPT 16 U/L (16-61); Albumin, Serum 2.8 g/dL (3.2-5.0); Alkaline Phosphatase 124 U/L (45-117); Bilirubin, Direct 0.29 mg/dL (0.00-0.30); Cholesterol 148 mg/dL (200); Globulin 5.3 g/dL (2.2-4.2); High Density Lipoprotein 90 mg/dL; Protein, Total 8.1 g/dL (6.4-8.2); Triglycerides 66 mg/dL; Very Low Density Lipoprotein 13 mg/dL (5-40)
[2020-03-20] VITALS (8 sets, daily range): BP systolic 102–120; BP diastolic 44–58; PULSE 98–110; RESP 16–18; TEMP 36.4–37.2; O2SAT 93–99; BMI 39.0
--- NOTE | 2020-03-20 05:51 | HP_ITS ---
Intake Vital Signs 03/03/20 Height 5 ft 10 in 03/03/20 Weight: 262 lb 7 oz 03/03/20 BMI 37.6 03/03/20 BP 122/70 H 03/03/20 Blood Pressure Location Rt brachial 03/03/20 Position Sitting 03/03/20 Respiration 22 H 03/03/20 Pulse 115 H 03/03/20 Pulse Source NIBP 03/03/20 Temp 97.7 F L 03/03/20 Temp Source Temporal 03/03/20 Pulse Oximetry (%) 100 03/03/20 Oxygen Delivery Method room air Intake Visit Reasons: Consult for fistula [facility] 02/22 Chief Complaint: fistula creation [employer] Required: No Is patient in pain?: No Allergies No Known Allergies Allergy (Verified 03/03/20 13:33) Medications Ascorbic Acid [Vitamin C] 500 mg PO DAILY 03/08/17 [History Confirmed 03/03/20] allopurinol 300 mg tablet 300 mg PO DAILY 08/23/19 [History Confirmed 03/03/20] cholecalciferol (vitamin D3) 125 mcg (5,000 unit) capsule 125 mcg PO DAILY 08/23/19 [History Confirmed 03/03/20] cyanocobalamin (vitamin B-12) 1,000 mcg capsule 1,000 mcg PO DAILY 08/24/19 [History Confirmed 03/03/20] omega-3 fatty acids 1,000 mg capsule 1,000 mg PO DAILY 08/24/19 [History Confirmed 03/03/20] Simvastatin 40 mg PO QHS 10/06/19 [History Confirmed 03/03/20] Ferrous Sulfate 325 mg PO DAILY 12/16/19 [History Confirmed 03/03/20] Nystatin Powder [Mycostatin Powder] 1 applic TOPICAL TID 12/19/19 [History Confirmed 03/03/20] Menthol/Lanolin/Calamine/Znox [Calmoseptine Ointment] 1 applic TOPICAL BID tube 01/31/20 [Rx Confirmed 03/03/20] [facility] Medical History Cardiac murmur (Chronic) Essential hypertension (Chronic) Gout (Chronic) Type 2 diabetes mellitus (Chronic) Iron deficiency anemia (Chronic) Hyperlipidemia (Chronic) DRUJ (distal radioulnar joint) arthrosis, primary (Acute) 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 José Galloway MD) Smoking Status: Former smoker HPI HPI HPI: GREGORIA RAMIREZ, is a 69 M who presents to the office today for who was referred for hemodialysis arteriovenous fistula creation by Dr. Ynes Mcleod and a written compromise surgical consult recommendations will return to her. The patient currently is receiving hemodialysis via tunneled left internal jugular dialysis catheters. He had bilateral upper extremity vein mapping performed at the [facility] in February 23, 2020 as noted below. He is right arm dominant. He currently is residing in a long term trying to further rehabilitate and recover from his acute hospitalization. He states that he was tested for Covid and was negative. Claims that there were no cases at the long term. February 24, 2020 he had a nuclear medicine stress test with an ejection fraction of 54% no evidence of ischemia. On that same day he is noted to be chronically anemic with a hemoglobin 8.2 and hematocrit 27.6 and a platelet count of 206,000. BUN is 36 and creatinine 3.94. He was briefly hospitalized because of chest pain on February 24, 2020 but it appears that cardiac etiology was excluded. He does have a chronic heart murmur. [facility] [address] [place] [address] Saphenous Vein Mapping, Bilat 02/23/20 1005 MR#: [id number] Name: GREGORIA RAMIREZRep #:[id number] : [id number] 69From: José Galloway MD Attending Dr: Dr. José Galloway, MDStatus: REG CLI Ordering Dr: José Galloway MDDate: 02/23/20 Location:CVSSex: Admitted: Reason For Study: Pre op testing Right Arm Left Arm Right Cephalic Vein at the wrist measures Left Cephalic Vein at the wrist measures 0.11 0.15 x 0.14 cm. x 0.11 cm. Right Cephalic Vein in the forearm measures Left Cephalic Vein in the forearm measures 0.15 x 0.17 cm. 0.13 x 0.13 cm. Right Cephalic Vein below antecub measures Left Cephalic Vein below antecub measures 0.16 0.12 x 0.14 cm. x 0.16 cm. Right Cephalic Vein above antecub measures Left Cephalic vein above antecube is 0.19 x 0.21 cm. noncompressible with bright intraluminal Right Cephalic Vein mid bicep measures 0.21 echoes consistent with chronic SVT. Measure x 0.22 cm. 0.11 x 0.11 cm. Right Cephalic Vein at the shoulder Left Cephalic vein mid bicep is partially measures 0.28 x 0.31 cm. compressible with bright intraluminal echoes Right Basilic Vein at the origin measures consistent with chronic SVT. Measures 0.10 x 0.22 x 0.21 cm. 0.10 cm. Right Basilic Vein mid bicep measures 0.20 Left Cephalic Vein at the shoulder measures x 0.22 cm. 0.11 x 0.10 cm. Right Basilic Vein above antecub measures Basilic vein at origin measures 0.29 x 0.30 0.14 x 0.14 cm. cm. Right Brachial artery 1 measures 0.26 x Basilic vein at bicep measures 0.27 x 0.26 cm. 0.26 cm with a velocity of 89.2 cm/sec. Basilic vein above antecub measures 0.27 x Right Brachial artery 2 measures 0.33 x 0.27 cm. 0.35 cm with a velocity of 99.6 cm/sec. Left Brachial artery measures 0.47 x 0.47 cm Right Radial artery measures 0.20 x 0.21 cm with a velocity of 92.7 cm/sec. with a velocity of 77.1 cm/sec. Left Radial artery measures 0.18 x 0.18 cm with a velocity of 59.1 cm/sec. Interpretation Summary Patent and compressible right upper extremity cephalic and basilic veins is noted with dimensions small throughout. Chronic superficial thrombophlebitis left cephalic vein proximal to the antecubital space and separate location left mid biceps area. Patent and compressible left upper arm basilic vein. Bilateral radial and brachial arteries patent with bilateral radial arteries small in diameter. Ordering Physician: José Galloway Referring Physician: Jaswinder Adrian Performed By: Cristina Elise RVT and Student ? HPI HPI HPI: GREGORIA RAMIREZ, is a 69 M who presents to the office today for ROS General General: Yes weight change and fatigue; no appetite, colon cancer, breast cancer or weakness HEENT HEENT: No difficulty swallowing, eye injury, eye surgery, swollen glands or hoarseness Endo Endocrine: Yes diabetes mellitus; no thyroid disease, thyroid cancer, Hair loss, heat intolerance or cold intolerance Musc Musculoskeletal: Yes arthritis, rheumatoid arthritis and gout; no back problems or joint pain Cardio Cardiovascular: Yes murmur (2/6 systolic ejection murmur), heart disease and high blood pressure; no pacemaker, atrial fibrillation, heart attack, heart stent, palpitations, shortness of breat with exertion or chest pain Psych Psychiatric: No depression, anxiety or hearing voices Resp Respiratory: Yes shortness of breath, Yes sleep apnea, No cough, No COPD, No asthma, No emphysema, No wheezing Gastro Gastrointestinal: No abdominal pain, Yes nausea or vomiting, No diarrhea, No constipation, No blood in stool, No acid reflux, No hemorrhoids, No ulcers, No gallbladder problem, Yes black,tarry stools Mitul Hematologic: No blood thinners, No blood disorders, No bleeding, Yes anemia, No blood clots Neuro Neurologic: No weakness Exam Const General: cooperative Nutritional Appearance: obese morbidly obese Orientation: alert, awake HENMT Head: normal to inspection Eyes General: appearance normal, both eyes and all related structures Resp Effort & Inspection: normal respiratory effort Auscultation: clear to auscultation bilaterally Cardio Rate: regular rate Rhythm: regular rhythm Heart Sounds: murmur (2/6 systolic ejection murmur) systolic GI Other: Obese Extrem Other: Significant 3-4+ bilateral lower extremity edema Left upper extremity palpable brachial pulse at 3+. 2+ radial pulse. Personal ultrasound inspection of the left upper arm demonstrates a patent and compressible basilic vein of adequate caliber Psych Affect: normal affect Assessment & Plan Problems 1. Chronic kidney disease with end stage 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 N18.6; Z99.2 Plan I am recommended the patient stage I left upper extremity basilic vein to brachial artery AV fistula creation. I personally performed ultrasound inspection of the left upper arm the basilic vein appears to be of adequate diameter and is patent and compressible. I have had extensive discussion with the patient regarding technique, benefit, risk, alternatives. He is aware that a stage II transposition will be required. No guarantees of success have been offered. He has had an opportunity to ask and have questions answered. We will schedule and proceed at his discretion. I appreciate the opportunity of assisting with her surgical care. Copy: Dr. Ynes Mcleod and Dr. Jaswinder Galloway M.D., F.A.C.S. 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
--- NOTE | 2020-03-20 06:02 | HP.PCM_ITS ---
Problem List (1) Chronic kidney disease with end stage 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 Status: Chronic History and Physical Date of Admission: 03/20/20 Intake Visit Reasons: Consult for fistula [facility] 02/22 Chief Complaint: fistula creation [employer] Consultant Required: No Is patient in pain?: No Allergies No Known Allergies Allergy (Verified 03/03/20 13:33) Medications Ascorbic Acid [Vitamin C] 500 mg PO DAILY 03/08/17 [History Confirmed 03/03/20] allopurinol 300 mg tablet 300 mg PO DAILY 08/23/19 [History Confirmed 03/03/20] cholecalciferol (vitamin D3) 125 mcg (5,000 unit) capsule 125 mcg PO DAILY 08/23/19 [History Confirmed 03/03/20] cyanocobalamin (vitamin B-12) 1,000 mcg capsule 1,000 mcg PO DAILY 08/24/19 [History Confirmed 03/03/20] omega-3 fatty acids 1,000 mg capsule 1,000 mg PO DAILY 08/24/19 [History Confirmed 03/03/20] Simvastatin 40 mg PO QHS 10/06/19 [History Confirmed 03/03/20] Ferrous Sulfate 325 mg PO DAILY 12/16/19 [History Confirmed 03/03/20] Nystatin Powder [Mycostatin Powder] 1 applic TOPICAL TID 12/19/19 [History Confirmed 03/03/20] Menthol/Lanolin/Calamine/Znox [Calmoseptine Ointment] 1 applic TOPICAL BID tube 01/31/20 [Rx Confirmed 03/03/20] [facility] Medical History Cardiac murmur (Chronic) Essential hypertension (Chronic) Gout (Chronic) Type 2 diabetes mellitus (Chronic) Iron deficiency anemia (Chronic) Hyperlipidemia (Chronic) DRUJ (distal radioulnar joint) arthrosis, primary (Acute) 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 José Galloway MD) Smoking Status: Former smoker HPI HPI HPI: GREGORIA RAMIREZ, is a 69 M who presents to the office today for who was referred for hemodialysis arteriovenous fistula creation by Dr. Ynes Mcleod and a written compromise surgical consult recommendations will return to her. The patient currently is receiving hemodialysis via tunneled left internal jugular dialysis catheters. He had bilateral upper extremity vein mapping performed at the [facility] in February 23, 2020 as noted below. He is right arm dominant. He currently is residing in a correction trying to further rehabilitate and recover from his acute hospitalization. He states that he was tested for Covid and was negative. Claims that there were no cases at the correction. February 24, 2020 he had a nuclear medicine stress test with an ejection fraction of 54% no evidence of ischemia. On that same day he is noted to be chronically anemic with a hemoglobin 8.2 and hematocrit 27.6 and a platelet count of 206,000. BUN is 36 and creatinine 3.94. He was briefly hospitalized because of chest pain on February 24, 2020 but it appears that cardiac etiology was excluded. He does have a chronic heart murmur. [facility] [address] [place] [id number] Saphenous Vein Mapping, Bilat 02/23/20 1005 MR#: [id number] Name: GREGORIA RAMIREZRep #:[id number] : 1950 69From: José Galloway MD Attending Dr: Dr. José Galloway [facility] [place] [place] Ordering Dr: José Galloway MDDate: 02/23/20 Location:CVSSex: Admitted: Reason For Study: Pre op testing Right Arm Left Arm Right Cephalic Vein at the wrist measures Left Cephalic Vein at the wrist measures 0.11 0.15 x 0.14 cm. x 0.11 cm. Right Cephalic Vein in the forearm measures Left Cephalic Vein in the forearm measures 0.15 x 0.17 cm. 0.13 x 0.13 cm. Right Cephalic Vein below antecub measures Left Cephalic Vein below antecub measures 0.16 0.12 x 0.14 cm. x 0.16 cm. Right Cephalic Vein above antecub measures Left Cephalic vein above antecube is 0.19 x 0.21 cm. noncompressible with br ight intraluminal Right Cephalic Vein mid bicep measures 0.21 echoes consistent with chronic SVT. Measure x 0.22 cm. 0.11 x 0.11 cm. Right Cephalic Vein at the shoulder Left Cephalic vein mid bicep is partially measures 0.28 x 0.31 cm. compressible with bright intraluminal echoes Right Basilic Vein at the origin measures consistent with chronic SVT. Measures 0.10 x 0.22 x 0.21 cm. 0.10 cm. Right Basilic Vein mid bicep measures 0.20 Left Cephalic Vein at the shoulder measures x 0.22 cm. 0.11 x 0.10 cm. Right Basilic Vein above antecub measures Basilic vein at origin measures 0.29 x 0.30 0.14 x 0.14 cm. cm. Right Brachial artery 1 measures 0.26 x Basilic vein at bicep measures 0.27 x 0.26 cm. 0.26 cm with a velocity of 89.2 cm/sec. Basilic vein above antecub measures 0.27 x Right Brachial artery 2 measures 0.33 x 0.27 cm. 0.35 cm with a velocity of 99.6 cm/sec. Left Brachial artery measures 0.47 x 0.47 cm Right Radial artery measures 0.20 x 0.21 cm with a velocity of 92.7 cm/sec. with a velocity of 77.1 cm/sec. Left Radial artery measures 0.18 x 0.18 cm with a velocity of 59.1 cm/sec. Interpretation Summary Patent and compressible right upper extremity cephalic and basilic veins is note d with dimensions small throughout. Chronic superficial thrombophlebitis left cephalic vein proximal to the antecubital space and separate location left mid biceps area. Patent and compressible left upper arm basilic vein. Bilateral radial and brachial arteries patent with bilateral radial arteries small in diameter. Ordering Physician: José Galloway Referring Physician: Jaswinder Adrian Performed By: rCistina Elise RVT and Student ? HPI HPI HPI: GREGORIA RAMIREZ, is a 69 M who presents to the office today for ROS General General: Yes weight change and fatigue; no appetite, colon cancer, breast cancer or weakness HEENT HEENT: No difficulty swallowing, eye injury, eye surgery, swollen glands or hoarseness Endo Endocrine: Yes diabetes mellitus; no thyroid disease, thyroid cancer, Hair loss, heat intolerance or cold intolerance Musc Musculoskeletal: Yes arthritis, rheumatoid arthritis and gout; no back problems or joint pain Cardio Cardiovascular: Yes murmur (2/6 systolic ejection murmur), heart disease and high blood pressure; no pacemaker, atrial fibrillation, heart attack, heart stent, palpitations, shortness of breat with exertion or chest pain Psych Psychiatric: No depression, anxiety or hearing voices Resp Respiratory: Yes shortness of breath, Yes sleep apnea, No cough, No COPD, No asthma, No emphysema, No wheezing Gastro Gastrointestinal: No abdominal pain, Yes nausea or vomiting, No diarrhea, No constipation, No blood in stool, No acid reflux, No hemorrhoids, No ulcers, No gallbladder problem, Yes black,tarry stools Mitul Hematologic: No blood thinners, No blood disorders, No bleeding, Yes anemia, No blood clots Neuro Neurologic: No weakness Exam Const General: cooperative Nutritional Appearance: obese morbidly obese Orientation: alert, awake [facility] Head: normal to inspection Eyes General: appearance normal, both eyes and all related structures Resp Effort & Inspection: normal respiratory effort Auscultation: clear to auscultation bilaterally Cardio Rate: regular rate Rhythm: regular rhythm Heart Sounds: murmur (2/6 systolic ejection murmur) systolic GI Other: Obese Extrem Other: Significant 3-4+ bilateral lower extremity edema Left upper extremity palpable brachial pulse at 3+. 2+ radial pulse. Personal ultrasound inspection of the left upper arm demonstrates a patent and compressible basilic vein of adequate caliber Psych Affect: normal affect Assessment & Plan Problems 1. Chronic kidney disease with end stage 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 N18.6; Z99.2 Plan I am recommended the patient stage I left upper extremity basilic vein to brachial artery AV fistula creation. I personally performed ultrasound inspection of the left upper arm the basilic vein appears to be of adequate diameter and is patent and compressible. I have had extensive discussion with the patient regarding technique, benefit, risk, alternatives. He is aware that a stage II transposition will be required. No guarantees of success have been offered. He has had an opportunity to ask and have questions answered. We will schedule and proceed at his discretion. I appreciate the opportunity of assisting with her surgical care. Copy: Dr. Ynes Mcleod and Dr. Jaswinder Galloway M.D., F.A.C.S. Coding Level of Care Code 77917 Diagnoses Chronic kidney disease with end stage 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 N18.6; Z99.2 I have re-examined the patient. There are no clinical changes since date of exam. Procedure Criteria Procedure Type: Elective COVID Risk Discussion: The surgeon/proceduralist and patient have discussed in detail the risk of exposure to and/or potential harm posed by the COVID-19 virus with having a surgery/procedure at this time versus the risk of delaying the surgery/procedure. It is not possible to know either the risk of delaying the surgery or procedure or chance of getting an infection with perfect accuracy, but a joint decision was made between the patient and the surgeon/proceduralist to proceed at this time with the scheduled surgery/procedure as indicated on the consent form.
--- NOTE | 2020-03-20 06:17 | DCINST_ITS ---
Discharge Diet: Renal Diet Discharge Activity: May Not Drive - for 2-3 days or while taking narcotic pain medications., May Not Shower, May Take a Tub Bath - in 5 days. Lifting Restrictions: 5 pounds Keep extremity elevated above heart level: - - Keep arm elevated above the heart level for 3 days. Additional Activity Instructions:: Exercise hand vigorously with a stress ball. Call your doctor if your incision/area has: Continuous Slow Oozing, Sudden Increased Bleeding - apply pressure and call your doctor., Increased Pain/ Swelling, Increased Redness, Foul Smelling Discharge Call your doctor if you observe: Fever of 101 or Higher Suture Line Care: Avoid Pulling/Pushing, Avoid Pinching/Bending Cleanse incision/area with: Keep Dressing Clean & Dry Additional Dressing/Incision Instructions:: Change or remove dressing in one day. May protect with a gauze bandaid. Allergies/Adverse Reactions: Allergies No Known Allergies Allergy (Verified 03/20/20 05:47) Medications to take at Discharge Ascorbic Acid [Vitamin C] 500 mg PO DAILY 03/08/17 allopurinol 300 mg tablet 300 mg PO DAILY 08/23/19 cholecalciferol (vitamin D3) 125 mcg (5,000 unit) capsule 125 mcg PO DAILY 08/23/19 cyanocobalamin (vitamin B-12) 1,000 mcg capsule 1,000 mcg PO DAILY 08/24/19 omega-3 fatty acids 1,000 mg capsule 1,000 mg PO DAILY 08/24/19 Simvastatin 40 mg PO QHS 10/06/19 Nystatin Powder [Mycostatin Powder] 1 applic TOPICAL TID 12/19/19 Primary Care Physician: Han Adrian MD [Primary Care Provider] - Test Results: Test results from this visit will be discussed in further detail at your follow- up appointment, if applicable. Please Follow Up With: José Galloway MD - [phone] When: Call to make an appointment for suture removal and follow up in 10 days
[2020-03-20 06:31] LABS: Bedside Glucose 92 mg/dL (70-110)
[2020-03-20] MEDS: Heparin Injection (Vial) 5,000 UNIT/ML VIAL 5000 UNIT (08:00)
[2020-03-20] MEDS: Bupivacaine Mpf 0.5% 30 ML VIAL (08:00)
--- NOTE | 2020-03-20 08:27 | OP.PCM_ITS ---
Problem List (1) Chronic kidney disease with end stage 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 Status: Chronic Report of Operation Date of Procedure: 03/20/20 Pre-Operative Diagnosis: Stage V chronic renal insufficiency on hemodialysis in need of arteriovenous hemodialysis access Post-Operative Diagnosis: Same Surgery/Procedure Performed:: Stage I left upper extremity brachial basilic arteriovenous hemodialysis fistula creation Description of Surgical Findings:: Timeout and informed consent was obtained. 69-year-old male was taken to the operating room. He was placed upon the table. Clean procedure. He underwent monitored anesthesia care. 1% lidocaine mixed 50-50 with 0.5% Marcaine was used as a local anesthetic. Total 16 cc used was used. Ultrasound was used to map the course of the basilic vein and brachial artery. This was marked in the upper extremity was sterilely prepped and draped. Local was instilled a curvilinear incision was made close to the antecubital space. Sharp and blunt dissection used to identify the basilic vein this was dissected free medially. Sharp and blunt dissection used to identify the brachial artery. The patient received 10,000 units of heparin weight based upon weight. Peripheral vascular clamps were placed on the brachial artery. A 11 blade was used to make an arteriotomy which was extended with Pena scissors. The vein was slightly spat ulated after being distally ligated with a Hemoclip. A end-to-side anastomosis was created with a running 7-0 Prolene. Prior to completion of there is good antegrade and retrograde flow. A single repair suture of 7-0 Prolene was required. Hemostasis was intact. There was a good 2-3+ radial pulse. The fistula had good flow. The patient received 20 mg of protamine. The deeper tissues were approximated with a running 3-0 Vicryl. Skin edges approximated running septic or 4-0 Monocryl. Steri-Strips Telfa tape dressings applied. Sponge and instrument and needle counts were reported to the surgeon to be correct. Blood loss was minimal. Specimens none. Drains none. Blood loss minimal. The patient was taken to the recovery area in satisfactory edition without apparent complication José Galloway M.D., F.A.C.S. Type of Anesthesia:: Local MAC
[2020-03-20] MEDS: Lactated Ringers 1,000 ML 100 ML IV (09:00)
== END 2020-03-20 10:47 | disposition home or self-care (01) ==
LOC: SDC 05:26 → AC 05:26
PROVIDERS: Internal Medicine Cardiovascular Disease; PCP Family Medicine; Referring Provider Surgery; Visit Provider Surgery
PROC: (CPT 36821; principal; 2020-03-20 07:15)
DX: Z45.2 Encounter for adjustment and management of vascular access device (principal); N18.6 End stage renal disease; D63.1 Anemia in chronic kidney disease; Z99.2 Dependence on renal dialysis; E11.22 Type 2 diabetes mellitus with diabetic chronic kidney disease; E11.40 Type 2 diabetes mellitus with diabetic neuropathy, unspecified; E78.00 Pure hypercholesterolemia, unspecified; I45.10 Unspecified right bundle-branch block; I50.9 Heart failure, unspecified; I35.0 Nonrheumatic aortic (valve) stenosis; I80.8 Phlebitis and thrombophlebitis of other sites; J44.9 Chronic obstructive pulmonary disease, unspecified; G47.30 Sleep apnea, unspecified; D50.9 Iron deficiency anemia, unspecified; M1A.9XX0 Chronic gout, unspecified, without tophus (tophi); R01.1 Cardiac murmur, unspecified; Z99.81 Dependence on supplemental oxygen; Z91.19 Patient's noncompliance with other medical treatment and regimen; Z20.828 Contact with and (suspected) exposure to other viral communicable diseases; Z87.891 Personal history of nicotine dependence
CPT/HCPCS: 01844; 36821; 36415; 80048; 80061; 80076; 82962; 85027; 87426; C9803; J7120; J2405

== ENCOUNTER → 2020-04-05 | Outpatient (CLI) | payer MEDICARE, OTHER, SELFPAY ==
[2020-03-29 13:59] VITALS: BMI 40.9
== END | disposition home or self-care (01) ==
LOC: LABSPEC 10:34
PROVIDERS: PCP Family Medicine; Referring Provider Physician Assistant; Visit Provider Physician Assistant
DX: T81.49XA Infection following a procedure, other surgical site, initial encounter (principal)
CPT/HCPCS: 87070; 87075; 87077; 87186; 87205

== ENCOUNTER 2020-04-28 09:49 | Outpatient (RCR) | payer MEDICARE, OTHER, SELFPAY ==
[2020-03-29 13:59] VITALS: BMI 40.9
[2020-04-26 13:10] VITALS: BMI 43.3
[2020-04-28 10:13] VITALS: BP 103/46; PULSE 97; RESP 18; TEMP 36.6; BMI 43.3
--- NOTE | 2020-04-28 13:33 | HP.PCM_ITS ---
(1) Ulcer of left lower extremity with fat layer exposed Status: Chronic Code(s): L97.922 - Non-pressure chronic ulcer of unspecified part of left lower leg with fat layer exposed (2) Morbid obesity Status: Chronic Code(s): E66.01 - Morbid (severe) obesity due to excess calories (3) Chronic acquired lymphedema Status: Chronic Code(s): I89.0 - Lymphedema, not elsewhere classified (4) Cellulitis Status: Acute Qualifiers: Site of cellulitis: extremity Site of cellulitis of extremity: lower extremity Laterality: unspecified laterality Qualified Code(s): L03.119 - Cellulitis of unspecified part of limb Code(s): L03.90 - Cellulitis, unspecified (5) Lymphedema of both lower extremities Status: Chronic Code(s): I89.0 - Lymphedema, not elsewhere classified (6) Chronic kidney disease with end stage 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 Status: Chronic Code(s): N18.6 - End stage renal disease; Z99.2 - Dependence on renal dialysis (7) Type 2 diabetes mellitus Status: Chronic Qualifiers: Diabetes mellitus [facility] insulin use: without terminal system operator use Diabetes mellitus complication status: with kidney complications Diabetes mellitus complication detail: with chronic kidney disease Chronic kidney disease stage: on chronic dialysis Qualified Code(s): E11.22 - Type 2 diabetes mellitus with diabetic chronic kidney disease; N18.6 - End stage renal disease; Z99.2 - Dependence on renal dialysis Code(s): E11.9 - Type 2 diabetes mellitus without complications History of Present Illness Date of Service: 04/28/20 Chief Complaint: left lower extremity ulcer, cellulitis and edema b/l LE History of Wound: Mr. Russell is a 70 yo gentelman well-known to the wound center who presents due to new (recurrent) left lower extremity ulcer. Said to have started about a week ago. He initially noted increased fluid drainage and increased swelling and then erythema. Denies chills, fever or otherwise feeling of unwell. He is on chronic dialysis and uses compression pumps to manage his edema. He recently underwent surgery for fistula placement for dialysis. He reports that his edema has been better than it has been in the past but has had scaling and drainage to his skin which had resolved when he was using UNNA boots when he was here last. He applies Eucerin to his legs but this has not helped the scaling recently. Past Medical History Past Medical History: Chronic Problems (Last Reviewed 04/26/20 @ 12:59 by Darlene Rose) Ulcer of left lower extremity with fat layer exposed (Chronic) Ulcer of left foot (Chronic) Ulcer of right lower extremity with fat layer exposed (Chronic) HERNÁN (obstructive sleep apnea) (Chronic) Obesity (Chronic) CKD (chronic kidney disease), stage III (Chronic) Morbid obesity (Chronic) Chronic acquired lymphedema (Chronic) Debility (Chronic) Chronic diastolic (congestive) heart failure (Chronic) Venous stasis dermatitis (Chronic) Respiratory failure, chronic (Chronic) Stage 3 severe COPD by GOLD classification (Chronic) Nonrheumatic aortic (valve) stenosis (Chronic) Chronic anemia (Chronic) Chronic kidney disease (Chronic) Lymphedema of both lower extremities (Chronic) Chronic kidney disease with end stage 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 (Chronic) Cardiac murmur (Chronic) Essential hypertension (Chronic) Gout (Chronic) Type 2 diabetes mellitus (Chronic) Iron deficiency anemia (Chronic) Hyperlipidemia (Chronic) Surgical History: tonsillectomy, - - arteriovenous fistula Allergies/Adverse Reactions: Allergies No Known Allergies Allergy (Verified 04/05/20 07:50) Home Medications: Ambulatory Orders Medication Instructions Recorded Ascorbic Acid [Vitamin C] 500 mg PO DAILY 03/08/17 allopurinol 300 mg tablet 300 mg PO DAILY 08/23/19 cholecalciferol (vitamin D3) 125 125 mcg PO DAILY 08/23/19 mcg (5,000 unit) capsule cyanocobalamin (vitamin B-12) 1,000 mcg PO DAILY 08/24/19 1,000 mcg capsule omega-3 fatty acids 1,000 mg 1,000 mg PO DAILY 08/24/19 capsule Simvastatin 40 mg PO QHS 10/06/19 Multivit with Iron,Minerals 1 ea PO DAILY 04/28/20 [Complete Senior] - Family History Maternal Family History: Family History (Last Reviewed 04/26/20 @ 12:59 by Darlene Rose) Mother Cancer Father Hypertension Cancer - Mother with history of ovarian cancer. Paternal Family History: Family History (Last Reviewed 04/26/20 @ 12:59 by Darlene Rose) Mother Cancer Father Hypertension Hypertension, - - Head trauma. Lives: Alone Smoking Status: Former smoker Tobacco Use: Non-smoker Alcohol: None Drugs: None Review of Systems Constitutional: Denies: Chills, Fever, Weight Change Eyes: Denies: Pain, Vision Change HEENT: Denies: Difficulty Hearing, Difficulty Swallowing, Sinus Congestion Cardiovascular: Denies: Chest Pain, Palpitations Respiratory: Denies: Cough, Shortness of Breath Gastrointestinal: Denies: Diarrhea, Nausea, Vomiting Genitourinary: Denies: Dysuria, Hematuria Skin: Reports: Rash, Skin Changes, Wounds Psychiatric: Denies: Anxiety, Depression Endocrine: Denies: Heat/ Cold Intolerance, Polydipsia, Polyuria Hematologic/ Lymphatic: Denies: Easy Bruising, Easy Bleeding - Physical Exam Vital Signs Temp Pulse Resp BP 98 F 97 18 103/46 L 04/28/20 10:13 04/28/20 10:13 04/28/20 10:13 04/28/20 10:13 General: Alert, Oriented x3, Cooperative, No apparent distress HEENT: Atraumatic, Normocephalic Oral: Moist Mucosa Neck: Supple Lungs: Clear to auscultation Cardiovascular: Regular rate, Regular Rhythm Abdomen: Obese Extremities: Edema Skin: Ulcer/ Wound, Rash Present, Excoriated, - - keratin scaling of legs assoc. with chronic lymphedema Wound Measurements and Assessment WC - Nurse 1 - General Ulcer Measurement Start: 04/28/20 10:10 Freq: Status: Active Protocol: Activity Type Activity Date Activity User E-Sign Co-Sign Detail Recorded Client Recorded Date Recorded By Document 04/28/20 10:15 [id number] 04/28/20 10:29 RB 04/28/20 10:15 Wound Center Nurse 1 [Ulcer Assessment] 18. LLE lateral -Combined with other wound No -Current Size (cm) - Length 13 -Current Size (cm) - Width 9 -Current Size (cm) - Depth 0.1 -Total Square Cm 117 -Photo Taken Yes -Tunneling No -Undermining/Tunneling No -Circular Undermining No -Exudate Amt Large -Exudate Type Serosanguineous -Wound Margin Flat & Intact -Granulation Amt Large (67-100%) -Granulation Quality [place] -Slough/Fibrin Yes -Necrosis Amt Small (1-33%) -Necrotic Tissue Type Adherent Slough -Structure Exposed N/A -Texture (Jaylyn-wound Skin Appearance) Excoriation -Moisture (Jaylyn-wound Skin Appearance Assessed, ) Maceration,Dry/ Scaly -Color (Jaylyn-wound Skin Appearance) Assessed -Temperature (Jaylyn-wound Skin No Abnormality Appearance) (Pt Warm) -Tenderness on Palpation (Jaylyn-wound No Skin Appearance) -Ulcer Cleansing Wound Cleanser -Foul Odor after Cleansing No -Anesthetic Used 4% Lidocaine Solution [Edema Assessment] -Lower Limb Edema Present Yes -Right Calf (cm) 44 -Right Ankle (cm) 30 -Left Calf (cm) 46.2 -Left Ankle (cm) 32 WC - Nurse 2 - General Ulcer CM Notes Start: 04/28/20 10:10 Freq: Status: Active Protocol: Activity Type Activity Date Activity User E-Sign Co-Sign Detail Recorded Client Recorded Date Recorded By Document 04/28/20 10:38 MW [id number] 04/28/20 10:50 MW 04/28/20 10:38 Wound Center Nurse 2 [Procedure/Treatment] 18. LLE lateral -Time 10:39 -Correct Patient Yes -Correct Side, Site, Position Yes -Correct Procedure Yes -Procedure Performed No -Post Debridement (cm) - Length 13.0 -Post Debridement (cm) - Width 9.0 -Post Debridement (cm) - Depth 0.1 -Total Square (Post) (cm) 117.00 -Area of Debridement (cm) - Length 13.0 -Area of Debridement (cm) - Width 9.0 -Total Square (Area) (cm) 117.00 -Tunneling No -Undermining/Tunneling No -Circular Undermining No -Wound/Ulcer Outcome Not Healed -Ulcer Cleansing Rinsed/ Irrigated with Saline -Foul Odor after Cleansing No -Bioengineered Tissue No -Bleeding Controlled with NA -Offloading No [See Physician Procedure note for Specifics] Pain Scale: 0-10 Numeric [Pain] -Is Patient Pain Free? Yes WC - Nurse 3 - General Ulcer D/C NN Start: 04/28/20 10:10 Freq: Status: Active Protocol: Activity Type Activity Date Activity User E-Sign Co-Sign Detail Recorded Client Recorded Date Recorded By Document 04/28/20 11:18 [email or web address] [id number] 04/28/20 11:19 BMF 04/28/20 11:18 Wound Care Nurse 3 [Wound Dressing] 18. LLE lateral -Ulcer Cleansing Rinsed/ Irrigated with Saline -Foul Odor after Cleansing No -Primary Dressing Applied Other -Other Dressing unna boot [Compression Applied] BILATERAL -Multi-Layered Wrap Application Unna Boot - Bilateral ($) -Unna Boots (Bilat) ($) 1 [Post Procedure Tolerated] -Treatment Response Procedure Tolerated Well Pain Scale: 0-10 Numeric [Pain] -Is Patient Pain Free? Yes - Visit Discharge [Visit Discharge Information] -Discharge Condition Stable -Ambulatory Status Ambulatory, Walker [Facility Notification] -Facility Type Home Health Psych/Mental Status: Normal Affect, Appropriate Debridement Note Post-Debridement Measurements/Treatment - Nurse 2 - General Ulcer CM Notes Start: 04/28/20 10:10 Freq: Status: Active Protocol: Activity Type Activity Date Activity User E-Sign Co-Sign Detail Recorded Client Recorded Date Recorded By Document 04/28/20 10:38 MW [id number] 04/28/20 10:50 MW 04/28/20 10:38 Wound Center Nurse 2 18. LLE lateral -Time 10:39 -Correct Patient Yes -Correct Side, Site, Position Yes -Correct Procedure Yes -Procedure Performed No -Post Debridement (cm) - Length 13.0 -Post Debridement (cm) - Width 9.0 -Post Debridement (cm) - Depth 0.1 -Total Square (Post) (cm) 117.00 -Area of Debridement (cm) - Length 13.0 -Area of Debridement (cm) - Width 9.0 -Total Square (Area) (cm) 117.00 -Tunneling No -Undermining/Tunneling No -Circular Undermining No -Wound/Ulcer Outcome Not Healed -Ulcer Cleansing Rinsed/ Irrigated with Saline -Foul Odor after Cleansing No -Bioengineered Tissue No -Bleeding Controlled with NA -Offloading No Pain Scale: 0-10 Numeric Is Patient Pain Free? Yes - Nurse 3 - General Ulcer D/C NN Start: 04/28/20 10:10 Freq: Status: Active Protocol: Activity Type Activity Date Activity User E-Sign Co-Sign Detail Recorded Client Recorded Date Recorded By Document 04/28/20 11:18 BMF [id number] 04/28/20 11:19 BM 04/28/20 11:18 Wound Care Nurse 3 18. LLE lateral -Ulcer Cleansing Rinsed/ Irrigated with Saline -Foul Odor after Cleansing No -Primary Dressing Applied Other -Other Dressing unna boot BILATERAL -Multi-Layered Wrap Application Unna Boot - Bilateral ($) -Unna Boots (Bilat) ($) 1 Treatment Response Procedure Tolerated Well Pain Scale: 0-10 Numeric Is Patient Pain Free? Yes WC - Visit Discharge Discharge Condition Stable Ambulatory Status Ambulatory, Walker Facility Type Home Health Wound debrided: LLE lateral Laterality: Left Type of Debridement: Selective debridement Depth: Down to and including healthy tissue Percentage of wound debrided: 20 Instrument Used: - - gauze Tissue Removed: scaly, devitalzed tissue Severity: Limited To Skin Breakdown Amount of bleeding with debridement: None Patient tolerated procedure well No debridement was completed today - no significant wound, skin breakdown and cracking from keratin build up Assessment/Plan Active Problems (Last Reviewed 04/26/20 @ 12:59 by Darlene Rose) Ulcer of left lower extremity with fat layer exposed (Chronic) Morbid obesity (Chronic) Chronic acquired lymphedema (Chronic) Cellulitis (Acute) Lymphedema of both lower extremities (Chronic) Chronic kidney disease with end stage 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 (Chronic) Type 2 diabetes mellitus (Chronic) Assessment: Recurrent left lower extremity ulcer. Chronic lymphedema. Morbid obesity. Plan: Mr. Russell's legs have lymphedema and chronic stasis dermatitis that is currently complicated by acute cellulitis. Will treat him with levofloxacin for cellulitis. He has done well with this in the past. Will use UNNA boot compression to treat his edema and dermatitis with changes weekly. Due to the h olidays and his dialysis treatments he will not return until 05/19/19 unless he develops any problems. Will plan on returning to maintenance control of his edema with Circaid compression after this flare up has resolved. He was advised to use his compression pumps before dialysis and be vigilant with elevating his legs to avoid worsening of his edema which causes the cellulitis and ulcers. Call with worsening pain, drainage or odor.
== END 2020-05-11 23:59 ==
LOC: WC 09:49
PROVIDERS: PCP Family Medicine; Visit Provider Family Medicine
DX: E11.622 Type 2 diabetes mellitus with other skin ulcer (principal); I89.0 Lymphedema, not elsewhere classified; E11.22 Type 2 diabetes mellitus with diabetic chronic kidney disease; N18.6 End stage renal disease; Z99.2 Dependence on renal dialysis; I13.2 Hypertensive heart and chronic kidney disease with heart failure and with stage 5 chronic kidney disease, or end stage renal disease; G47.33 Obstructive sleep apnea (adult) (pediatric); E66.01 Morbid (severe) obesity due to excess calories; I50.32 Chronic diastolic (congestive) heart failure; J44.9 Chronic obstructive pulmonary disease, unspecified; E78.5 Hyperlipidemia, unspecified; Z79.899 Other long term (current) drug therapy; Z87.891 Personal history of nicotine dependence
CPT/HCPCS: 29580; 99213; G0463

== ENCOUNTER 2020-05-17 05:20 | Day surgery (SDC) | payer MEDICARE, OTHER, SELFPAY ==
[2020-04-26 13:10] VITALS: BMI 43.3
[2020-05-11 12:06] LABS: Absolute Lymphocyte Count 1.29 X10^3/uL (0.83-4.51); Absolute Neutrophil Count 5.1 X10^3/uL (2.0-7.7); Basophil# 0.04 X10^3/uL; Basophil% 0.5 % (0-1); Eosinophil# 0.27 X10^3/uL; Eosinophils% 3.7 % (0-5); Hematocrit 34.3 % (40-54); Hemoglobin 10.8 g/dL (13.0-16.5); Lymphocyte # 1.29 X10^3/ul (4.0); Lymphocyte % 17.5 % (19-41); Mean Corp Hgb Conc 31.5 g/dL (32-36); Mean Corpuscular Hgb 33.8 pg (27.0-32.0); Mean Corpuscular Volume 107.2 fL (80-94); Mean Platelet Vol. 10.9 fl (6.2-12.0); Monocyte# 0.64 X10^3/uL; Monocyte% 8.7 % (0-10); NRBC Flagged by Analyzer 0 % (0-5); Neutrophil % 69.1 % (47-70); POSITIVE MORPHOLOGY YES; Platelet Count 153 K/mm3 (150-450); RBC Distribution Width CV 17.1 % (11.6-14.6); RBC Distribution Width SD 67.6 fl (35.1-43.9); White Blood Count 7.4 K/mm3 (4.4-11.0)
[2020-05-11 12:08] LABS: Differential Indicated SCAN CRITERIA MET
[2020-05-11 12:33] LABS: Anisocytosis 1+
[2020-05-11 12:35] LABS: Anion Gap 4 (5-15); BUN 17 mg/dL (7-18); BUN/Creat Ratio 5.5 RATIO (10-20); Calcium,Total 8.7 mg/dL (8.5-10.1); Chloride 99 mmol/L (98-107); Creatinine, Serum 3.11 mg/dL (0.70-1.30); EST Glomerular Filtration Rate 21 mL/min (>60); Est Glom Filt Rate - Afr Amer 26 mL/min (>60); Glucose 84 mg/dL (74-106); Sodium Level 136 mmol/L (136-145)
[2020-05-17] VITALS (9 sets, daily range): BP systolic 93–108; BP diastolic 42–52; PULSE 89–92; RESP 16–18; TEMP 36.3–36.9; O2SAT 89–99; BMI 37.5
--- NOTE | 2020-05-17 05:45 | HP.PCM_ITS ---
Problem List (1) Chronic kidney disease Status: Chronic History and Physical Date of Admission: 05/17/20 Intake Visit Reasons: 3 WEEK F/U AV CREATION Chief Complaint: recheck fistula Medical Coding Technician Required: No Is patient in pain?: No Allergies No Known Allergies Allergy (Verified 04/05/20 07:50) [facility] Medical History Chronic kidney disease with end stage 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 (Chronic) Cardiac murmur (Chronic) Essential hypertension (Chronic) Gout (Chronic) Type 2 diabetes mellitus (Chronic) Iron deficiency anemia (Chronic) Hyperlipidemia (Chronic) DRUJ (distal radioulnar joint) arthrosis, primary (Acute) 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) Vascular dialysis catheter in place (Acute) Diabetic neuropathy (Chronic) Hyperuricemia (Chronic) Chronic kidney disease (Inactive) Hypertension (Inactive) Surgical History S/P arteriovenous (AV) fistula creation (Acute) S/P colonoscopy (Acute) Status post tonsillectomy (Acute) Family History Mother Cancer Ovarian Father Hypertension Social History (Updated 04/27/20 @ 10:34 by Janine PALOMO PA-C) Smoking Status: Former smoker alcohol intake: never substance use type: does not use HPI HPI HPI: GREGORIA RAMIREZ, is a 70 M who presents to the office today for HPI HPI Surgical H&P: Yes HPI: GREGORIA RAMIREZ, is a 70 M who presents to the office today for follow-up of his stage I left upper extremity brachial basilic arteriovenous fistula creation on 03/20/[address] Galloway. Patient was noted to have erythema at the incision site as well as some serous drainage. A culture was obtained which demonstrated staph epi. He has been receiving Vanco at dialysis. At today's visit the erythema has completely resolved. Patient denies pain at the fistula site. Patient is currently being dialyzed via chest catheters. Patient denies recent hospitalization or illness. He is ready to be scheduled for stage II transposition. He is not currently on any blood thinners. ROS General General: Yes weight change and fatigue; no appetite, colon cancer, breast cancer or weakness HEENT HEENT: No difficulty swallowing, eye injury, eye surgery, swollen glands or hoarseness Endo Endocrine: Yes diabetes mellitus; no thyroid disease, thyroid cancer, Hair loss, heat intolerance or cold i ntolerance Musc Musculoskeletal: Yes arthritis, rheumatoid arthritis and gout; no back problems or joint pain Cardio Cardiovascular: Yes murmur (2/6 systolic ejection murmur), heart disease and high blood pressure; no pacemaker, atrial fibrillation, heart attack, heart stent, palpitations, shortness of breat with exertion or chest pain Psych Psychiatric: No depression, anxiety or hearing voices Resp Respiratory: Yes shortness of breath, Yes sleep apnea, No cough, No COPD, No asthma, No emphysema, No wheezing Gastro Gastrointestinal: No abdominal pain, Yes nausea or vomiting, No diarrhea, No constipation, No blood in stool, No acid reflux, No hemorrhoids, No ulcers, No gallbladder problem, Yes black,tarry stools Mitul Hematologic: No blood thinners, No blood disorders, No bleeding, Yes anemia, No blood clots Neuro Neurologic: No weakness Exam Const General: cooperative, healthy appearing, comfortable, no acute distress [facility] Head: normal to inspection Eyes General: appearance normal, both eyes and all related structures Neck Neck: normal visual inspection Neck mass: No Resp Effort & Inspection: normal respiratory effort Auscultation: clear to auscultation bilaterally Cardio Rate: regular rate Rhythm: regular rhythm Heart Sounds: murmur (2/6 systolic ejection murmur) GI Inspection: normal to inspection Palpation: soft Auscultation: normal bowel sounds Skin General: no rashes or lesions noted Neuro General: no focal motor deficits, CN's II-XI intact bilaterally Extrem Other: Left upper extremity AV fistula- incision nicely healed. Erythema resolved. Excellent pulse, bruit and thrill Psych Appearance: grossly normal Affect: normal affect Assessment & Plan Problems 1. Chronic renal failure, stage [address] Galloway will plan to perform a stage II transposition of the left upper extremity brachial basilic arteriovenous fistula creation. Procedure details, risks and benefits have been explained to the patient. He dialyzes on T, Th and Sat. He would like to schedule the procedure after the new year per patient request. He is not on any blood thinners. Patient and his sister have had the opportunity to ask and have questions answered. Patient verbally understands and agrees with the plan. Coding Level of Care Code No Charge Diagnoses Chronic renal failure, stage 5 N18.5 I have re-examined the patient. There are no clinical changes since date of exam. The patient had minimal wound drainage from his previous procedure. Apparently superficial cultures were obtained showing staph epidermidis. It was multi resistant. The patient is morbidly obese and increased risk for infection. The transposition will be a larger intervention with more space. I will treat him preoperatively with IV vancomycin. Order has been submitted. José Galloway M.D., F.A.C.S. Procedure Criteria Procedure Type: Elective COVID Risk Discussion: The surgeon/proceduralist and patient have discussed in detail the risk of exposure to and/or potential harm posed by the COVID-19 virus with having a surgery/procedure at this time versus the risk of delaying the surgery/procedure. It is not possible to know either the risk of delaying the surgery or procedure or chance of getting an infection with perfect accuracy, but a joint decision was made between the patient and the surgeon/proceduralist to proceed at this time with the scheduled surgery/procedure as indicated on the consent form.
--- NOTE | 2020-05-17 06:00 | HP_ITS ---
Intake Vital Signs 04/26/20 Height 5 ft 8 in 04/26/20 Weight: 285 lb 04/26/20 BMI 43.3 04/26/20 BP 98/58 L 04/26/20 Blood Pressure Location Rt brachial 04/26/20 Position Sitting 04/26/20 Respiration 20 H 04/26/20 Pulse Oximetry (%) 96 04/26/20 Oxygen Delivery Method room air Intake Visit Reasons: 3 WEEK F/U AV CREATION Chief Complaint: recheck fistula Carpenter Repair Required: No Is patient in pain?: No Allergies No Known Allergies Allergy (Verified 04/05/20 07:50) [facility] Medical History Chronic kidney disease with end stage 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 (Chronic) Cardiac murmur (Chronic) Essential hypertension (Chronic) Gout (Chronic) Type 2 diabetes mellitus (Chronic) Iron deficiency anemia (Chronic) Hyperlipidemia (Chronic) DRUJ (distal radioulnar joint) arthrosis, primary (Acute) 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) Vascular dialysis catheter in place (Acute) Diabetic neuropathy (Chronic) Hyperuricemia (Chronic) Chronic kidney disease (Inactive) Hypertension (Inactive) Surgical History S/P arteriovenous (AV) fistula creation (Acute) S/P colonoscopy (Acute) Status post tonsillectomy (Acute) Family History Mother Cancer Ovarian Father Hypertension Social History (Updated 04/27/20 @ 10:34 by Janine PALOMO, PA-C) Smoking Status: Former smoker alcohol intake: never substance use type: does not use HPI HPI HPI: GREGORIA RAMIREZ, is a 70 M who presents to the office today for HPI HPI Surgical H&P: Yes HPI: GREGORIA RAMIREZ, is a 70 M who presents to the office today for follow-up of his stage I left upper extremity brachial basilic arteriovenous fistula creation on 03/20/[address] Galloway. Patient was noted to have erythema at the incision site as well as some serous drainage. A culture was obtained which demonstrated staph epi. He has been receiving Vanco at dialysis. At today's visit the erythema has completely resolved. Patient denies pain at the fistula site. Patient is currently being dialyzed via chest catheters. Patient denies recent hospitalization or illness. He is ready to be scheduled for stage II transposition. He is not currently on any blood thinners. ROS General General: Yes weight change and fatigue; no appetite, colon cancer, breast cancer or weakness HEENT HEENT: No difficulty swallowing, eye injury, eye surgery, swollen glands or hoarseness Endo Endocrine: Yes diabetes mellitus; no thyroid disease, thyroid cancer, Hair loss, heat intolerance or cold intolerance Musc Musculoskeletal: Yes arthritis, rheumatoid arthritis and gout; no back problems or joint pain Cardio Cardiovascular: Yes murmur (2/6 systolic ejection murmur), heart disease and high blood pressure; no pacemaker, atrial fibrillation, heart attack, heart stent, palpitations, shortness of breat with exertion or chest pain Psych Psychiatric: No depression, anxiety or hearing voices Resp Respiratory: Yes shortness of breath, Yes sleep apnea, No cough, No COPD, No asthma, No emphysema, No wheezing Gastro Gastrointestinal: No abdominal pain, Yes nausea or vomiting, No diarrhea, No constipation, No blood in stool, No acid reflux, No hemorrhoids, No ulcers, No gallbladder problem, Yes black,tarry stools Mitul Hematologic: No blood thinners, No blood disorders, No bleeding, Yes anemia, No blood clots Neuro Neurologic: No weakness Exam Const General: cooperative, healthy appearing, comfortable, no acute distress [facility] Head: normal to inspection Eyes General: appearance normal, both eyes and all related structures Neck Neck: normal visual inspection Neck mass: No Resp Effort & Inspection: normal respiratory effort Auscultation: clear to auscultation bilaterally Cardio Rate: regular rate Rhythm: regular rhythm Heart Sounds: murmur (2/6 systolic ejection murmur) GI Inspection: normal to inspection Palpation: soft Auscultation: normal bowel sounds Skin General: no rashes or lesions noted Neuro General: no focal motor deficits, CN's II-XI intact bilaterally Extrem Other: Left upper extremity AV fistula- incision nicely healed. Erythema resolved. Excellent pulse, bruit and thrill Psych Appearance: grossly normal Affect: normal affect Assessment & Plan Problems 1. Chronic renal failure, stage [address] Galloway will plan to perform a stage II transposition of the left upper extremity brachial basilic arteriovenous fistula creation. Procedure details, risks and benefits have been explained to the patient. He dialyzes on T, Th and Sat. He would like to schedule the procedure after the new year per patient request. He is not on any blood thinners. Patient and his sister have had the opportunity to ask and have questions answered. Patient verbally understands and agrees with the plan. Coding Level of Care Code No Charge Diagnoses Chronic renal failure, stage 5 N18.5 Comment Update H&P
--- NOTE | 2020-05-17 06:14 | DCINST_ITS ---
Discharge Diet: Renal Diet Discharge Activity: May Not Drive - for 2-3 days or while taking narcotic pain medications., May Shower, May Take a Tub Bath - in 5 days. Lifting Restrictions: 5 pounds Keep extremity elevated above heart level: - - Keep arm elevated above the heart level for 3 days. Additional Activity Instructions:: Exercise hand vigorously with a stress ball. Call your doctor if your incision/area has: Continuous Slow Oozing, Sudden Increased Bleeding - apply pressure and call your doctor., Increased Pain/ Swelling, Increased Redness, Foul Smelling Discharge Call your doctor if you observe: Fever of 101 or Higher Suture Line Care: Avoid Pulling/Pushing, Avoid Pinching/Bending Cleanse incision/area with: Keep Dressing Clean & Dry Additional Dressing/Incision Instructions:: Leave the elastic bandage on for 2 days. You may then remove the elastic bandage and soft gauze. Leave the Steri- Strips on for an additional 1 week. Allergies/Adverse Reactions: Allergies No Known Allergies Allergy (Verified 05/17/20 06:05) Medications to take at Discharge Ascorbic Acid [Vitamin C] 500 mg PO DAILY 03/08/17 allopurinol 300 mg tablet 300 mg PO DAILY 08/23/19 cholecalciferol (vitamin D3) 125 mcg (5,000 unit) capsule 125 mcg PO DAILY 08/23/19 cyanocobalamin (vitamin B-12) 1,000 mcg capsule 1,000 mcg PO DAILY 08/24/19 omega-3 fatty acids 1,000 mg capsule 1,000 mg PO DAILY 08/24/19 Simvastatin 40 mg PO QHS 10/06/19 Multivit with Iron,Minerals [Complete Senior] 1 ea PO DAILY 04/28/20 Magnesium Oxide 500 mg PO DAILY 05/10/20 Midodrine HCl 5 mg PO DAILY 05/10/20 Vit B Comp No.3/Folic/C/Biotin [Nephro-Kenzie Rx Tablet] 1 ea PO DAILY 05/10/20 Primary Care Physician: Han Adrian MD [Primary Care Provider] - Test Results: Test results from this visit will be discussed in further detail at your follow- up appointment, if applicable. Please Follow Up With: José Galloway MD - [phone] When: Call to make an appointment for suture removal and follow up in 10 days
[2020-05-17] MEDS: 0.9 % Sodium Chloride Viaflo 500 ML IV.SOLN IV (06:23)
[2020-05-17] MEDS: Vancomycin IV 1,000 MG/200 ML BAG 200 MG IV (06:36)
[2020-05-17] MEDS: Lidocaine 1% (30 ml sdv) 30 ML Vial (09:34)
[2020-05-17] MEDS: Bupivacaine Mpf 0.5% 30 ML VIAL (09:35)
[2020-05-17] MEDS: Heparin Injection (Vial) 5,000 UNIT/ML VIAL 5000 UNIT (09:35)
--- NOTE | 2020-05-17 09:42 | PCM.OPRPT ---
Problem List (1) Chronic kidney disease Status: Chronic Report of Operation Date of Procedure: 05/17/20 Pre-Operative Diagnosis: Stage IV chronic renal insufficiency Post-Operative Diagnosis: Same Surgery/Procedure Performed:: Stage II transposition left upper arm basilic vein to brachial artery arteriovenous hemodialysis fistula creation Description of Surgical Findings:: Timeout and informed consent was obtained. 70-year-old gentleman was taken the operating place upon the table he underwent general anesthesia. He received a gram of vancomycin intravenously preoperatively. The left upper extremity was sterilely prepped and draped. A longitudinal incision was made up the medial aspect of the left upper arm. 1% lidocaine mixed 50-50 with 0.5% Marcaine was used as a local anesthetic. Throughout the procedure total 40 cc was used. Local was instilled peeled. Sharp dissection electrocautery dissection performed. Hemostasis obtained with electrocautery and hemoclips and were needed 4-0 Vicryl ligatures and 3-0 Vicryl suture ligatures. The basilic vein was carefully dissected free. Side branches secured with 4-0 Vicryl ligatures or hemoclips. The vein was dissected free to the upper arm. I then measured the length. I selected a curvilinear spot more on the dorsal aspect of the arm. I did sharp and blunt dissection to identify the brachial artery. A tunneler was then placed. The vein was secured at the antecubital space with a 3-0 Vicryl suture ligature. The vein was then tunneled. It had been marked to avoid any twisting. There was a good positional lie. Patient received 10,000 and's of heparin. Peripheral vascular clamps were placed on the brachial artery and 11 blade was used to make an arteriotomy which was extended with Pena scissors. A end-to-side anastomosis was created with a running 7-0 Prolene. Several interrupted 7-0 Prolene's were required to achieve final hemostasis. There was a good pulse and thrill within the fistula at the completion. The wound was then closed with a deep layer of interrupted 3-0 Vicryl. The skin edges approximated running subicular 4-0 Monocryl. Steri-Strips Telfa soft roll Krunal wrap applied. Sponge and instrument and needle counts were reported to the surgeon to be correct. Specimens none. Drains none. Blood loss 150. The patient was taken to the recovery area in satisfactory edition without apparent complication José Galloway M.D., F.A.C.S. Type of Anesthesia:: General Anesthesiologist: Anne Miranda
[2020-05-17 10:21] LABS: Bedside Glucose 112 mg/dL (70-110)
== END 2020-05-17 14:15 | disposition home or self-care (01) ==
LOC: SDC 05:21 → AC 05:21
PROVIDERS: PCP Family Medicine; Referring Provider Surgery; Visit Provider Surgery
PROC: (CPT 36819; principal; 2020-05-17 07:15)
DX: Z45.2 Encounter for adjustment and management of vascular access device (principal); I13.2 Hypertensive heart and chronic kidney disease with heart failure and with stage 5 chronic kidney disease, or end stage renal disease; I50.9 Heart failure, unspecified; E11.22 Type 2 diabetes mellitus with diabetic chronic kidney disease; N18.5 Chronic kidney disease, stage 5; E11.40 Type 2 diabetes mellitus with diabetic neuropathy, unspecified; M1A.9XX0 Chronic gout, unspecified, without tophus (tophi); J44.9 Chronic obstructive pulmonary disease, unspecified; D50.9 Iron deficiency anemia, unspecified; E78.5 Hyperlipidemia, unspecified; G47.30 Sleep apnea, unspecified; E66.01 Morbid (severe) obesity due to excess calories; Z68.38 Body mass index [BMI] 38.0-38.9, adult; Z91.19 Patient's noncompliance with other medical treatment and regimen; Z99.2 Dependence on renal dialysis; Z99.81 Dependence on supplemental oxygen; Z79.899 Other long term (current) drug therapy; Z87.891 Personal history of nicotine dependence
CPT/HCPCS: 01844; 36819; 36415; 80048; 82962; 85025; 87426; C9803; J7040; J7120; J2405

== ENCOUNTER 2020-05-19 11:00 | Outpatient (RCR) | payer MEDICARE, OTHER, SELFPAY ==
[2020-05-12 00:39] VITALS: BP 103/46; PULSE 97; RESP 18; TEMP 36.6
[2020-05-17 06:04] VITALS: BMI 37.5
[2020-05-19 10:58] VITALS: BP 103/45; PULSE 99; RESP 18; TEMP 36.6; BMI 37.5
--- NOTE | 2020-05-19 13:38 | PCM.WC.PN ---
(1) Ulcer of left lower extremity with fat layer exposed Status: Chronic Code(s): L97.922 - Non-pressure chronic ulcer of unspecified part of left lower leg with fat layer exposed (2) Chronic acquired lymphedema Status: Chronic Code(s): I89.0 - Lymphedema, not elsewhere classified (3) Lymphedema of both lower extremities Status: Chronic Code(s): I89.0 - Lymphedema, not elsewhere classified Type of Wound Date of Service: 05/19/20 Chief Complaint: left lower extremity ulcer, cellulitis and edema b/l LE History of Wound: Mr. Russell is a 70 yo gentelman well-known to the wound center who presents due to new (recurrent) left lower extremity ulcer. Said to have started about a week ago. He initially noted increased fluid drainage and increased swelling and then erythema. Denies chills, fever or otherwise feeling of unwell. He is on chronic dialysis and uses compression pumps to manage his edema. He recently underwent surgery for fistula placement for dialysis. He reports that his edema has been better than it has been in the past but has had scaling and drainage to his skin which had resolved when he was using UNNA boots when he was here last. He applies Eucerin to his legs but this has not helped the scaling recently. Progress of Wound: His ulcer is healed and edema is improved. - Physical Exam Vital Signs Temp Pulse Resp BP 98 F 99 18 103/45 L 05/19/20 10:58 05/19/20 10:58 05/19/20 10:58 05/19/20 10:58 General: Alert, Oriented x3, Cooperative, No apparent distress Abdomen: Obese Extremities: Edema Skin: - - scaling, hyperkeratosis Wound Measurements and Assessment WC - Nurse 1 - General Ulcer Measurement Start: 05/19/20 10:58 Freq: Status: Discharge Protocol: Activity Type Activity Date Activity User E-Sign Co-Sign Detail Recorded Client Recorded Date Recorded By Document 05/19/20 10:58 RB [id number] 05/19/20 11:05 RB Edit Status 05/19/20 11:31 BKG DAEMON Active=>Discharge [id number] 05/19/20 11:31 BKG DAEMON 05/19/20 10:58 Wound Center Nurse 1 [Ulcer Assessment] 18. LLE lateral -Combined with other wound No -Current Size (cm) - Length 0 -Current Size (cm) - Width 0 -Current Size (cm) - Depth 0 -Total Square Cm 0 -Photo Taken Yes -Epithelialization Large 67-100% -Tunneling No -Undermining/Tunneling No -Exudate Amt None Present -Granulation Amt Large (67-100%) -Granulation Quality [place] -Slough/Fibrin No -Necrosis Amt None Present (0 %) -Structure Exposed N/A -Texture (Jaylyn-wound Skin Appearance) Assessed -Moisture (Jaylyn-wound Skin Appearance Dry/Scaly ) -Color (Jaylyn-wound Skin Appearance) Assessed -Temperature (Jaylyn-wound Skin No Abnormality Appearance) (Pt Warm) -Tenderness on Palpation (Jaylyn-wound No Skin Appearance) -Ulcer Cleansing Wound Cleanser -Foul Odor after Cleansing No [Edema Assessment] -Lower Limb Edema Present Yes -Right Calf (cm) 42.5 -Right Ankle (cm) 30.8 -Left Calf (cm) 40.2 -Left Ankle (cm) 31 WC - Nurse 2 - General Ulcer CM Notes Start: 05/19/20 10:58 Freq: Status: Discharge Protocol: Activity Type Activity Date Activity User E-Sign Co-Sign Detail Recorded Client Recorded Date Recorded By Document 05/19/20 11:16 MW [id number] 05/19/20 11:22 MW Edit Status 05/19/20 11:31 ABE DAZOLTAN Active=>Discharge [id number] 05/19/20 11:31 ABE KELLEYON 05/19/20 11:16 Wound Center Nurse 2 [Procedure/Treatment] 18. LLE lateral -Time 11:20 -Correct Patient Yes -Correct Side, Site, Position Yes -Correct Procedure Yes -Procedure Performed No -Post Debridement (cm) - Length 0 -Post Debridement (cm) - Width 0 -Post Debridement (cm) - Depth 0 -Total Square (Post) (cm) 0 -Wound/Ulcer Outcome Healed- Epithelialized [See Physician Procedure note for Specifics] Pain Scale: 0-10 Numeric [Pain] -Is Patient Pain Free? Yes WC - Nurse 3 - General Ulcer D/C NN Start: 05/19/20 10:58 Freq: Status: Discharge Protocol: Activity Type Activity Date Activity User E-Sign Co-Sign Detail Recorded Client Recorded Date Recorded By Document 05/19/20 11:22 MW [id number] 05/19/20 11:24 MW Edit Status 05/19/20 11:31 [email or web address] DAZOLTAN Active=>Discharge [id number] 05/19/20 11:31 ABE DADANIAON 05/19/20 11:22 Wound Care Nurse 3 [Compression Applied] Right -Compression Wrap Krunal Wrap Left -Compression Wrap Krunal Wrap [Post Procedure Tolerated] -Treatment Response Procedure Tolerated Well Pain Scale: 0-10 Numeric [Pain] -Is Patient Pain Free? Yes Teaching: Wound Center [Wound Center Education] (Items with an * have Printed Materials Available- Please identify what is given to patient under the Teaching materials given to patient and caregiver Section. Discharge Instructions -Person Taught Patient -Teaching Method Discussion -Response to teaching Verbalize understanding WC - Visit Discharge [Visit Discharge Information] -Discharge Condition Stable -Ambulatory Status Ambulatory, Walker -Transportation [facility] transportation -Medication Reconcilliation completed No & provided to patient/care provider -Clinical Summary of Care Provided Yes Psych/Mental Status: Normal Affect, Appropriate Debridement Note Post-Debridement Measurements/Treatment WC - Nurse 2 - General Ulcer CM Notes Start: 05/19/20 10:58 Freq: Status: Discharge Protocol: Activity Type Activity Date Activity User E-Sign Co-Sign Detail Recorded Client Recorded Date Recorded By Document 05/19/20 11:16 MW [id number] 05/19/20 11:22 MW 05/19/20 11:16 Wound Center Nurse 2 18. LLE lateral -Time 11:20 -Correct Patient Yes -Correct Side, Site, Position Yes -Correct Procedure Yes -Procedure Performed No -Post Debridement (cm) - Length 0 -Post Debridement (cm) - Width 0 -Post Debridement (cm) - Depth 0 -Total Square (Post) (cm) 0 -Wound/Ulcer Outcome Healed- Epithelialized Pain Scale: 0-10 Numeric Is Patient Pain Free? Yes WC - Nurse 3 - General Ulcer D/C NN Start: 05/19/20 10:58 Freq: Status: Discharge Protocol: Activity Type Activity Date Activity User E-Sign Co-Sign Detail Recorded Client Recorded Date Recorded By Document 05/19/20 11:22 MW [id number] 05/19/20 11:24 MW 05/19/20 11:22 Wound Care Nurse 3 Right -Compression Wrap Krunal Wrap Left -Compression Wrap Krunal Wrap Treatment Response Procedure Tolerated Well Pain Scale: 0-10 Numeric Is Patient Pain Free? Yes Teaching: Wound Center Discharge Instructions -Person Taught Patient -Teaching Method Discussion -Response to teaching Verbalize understanding WC - Visit Discharge Discharge Condition Stable Ambulatory Status Ambulatory, Walker Transportation [facility] transportation Medication Reconcilliation completed & No provided to patient/care provider Clinical Summary of Care Provided Yes Wound debrided: LLE lateral Laterality: Left Type of Debridement: Selective debridement Severity: Limited To Skin Breakdown Amount of bleeding with debridement: None Patient tolerated procedure well Assessment/Plan Assessment: Recurrent left lower extremity ulcer. Chronic lymphedema. Morbid obesity. Plan: Mr. Russell's legs have lymphedema and chronic stasis dermatitis but his ulcer is healed. He was advised to use zinc oxide or triamcinolone cream to his legs once daily to help with his dermatitis. Will plan on returning to maintenance control of his edema with Circaid compression. He was advised to use his compression pumps before dialysis and be vigilant with elevating his legs to avoid worsening of his edema which causes the cellulitis and ulcers. Call with worsening pain, drainage or odor.
== END 2020-05-19 11:31 | disposition home or self-care (01) ==
LOC: WC 11:00
PROVIDERS: PCP Family Medicine; Visit Provider Family Medicine
DX: Z09 Encounter for follow-up examination after completed treatment for conditions other than malignant neoplasm (principal); I89.0 Lymphedema, not elsewhere classified; E66.01 Morbid (severe) obesity due to excess calories; I87.2 Venous insufficiency (chronic) (peripheral)
CPT/HCPCS: 99212; G0463

== ENCOUNTER 2020-07-07 10:00 | Outpatient (RCR) | payer MEDICARE, OTHER, SELFPAY ==
[2020-06-30 09:34] VITALS: BP 112/46; PULSE 102; RESP 20; TEMP 36.3; BMI 37.3
[2020-06-30 10:52] VITALS: BP 112/46
--- NOTE | 2020-06-30 13:23 | PCM.WC.HP ---
(1) Ulcer of left lower extremity with fat layer exposed Status: Chronic Code(s): L97.922 - Non-pressure chronic ulcer of unspecified part of left lower leg with fat layer exposed (2) Obesity Status: Chronic Qualifiers: Obesity type: unspecified obesity type Obesity classification: adult class 2 (BMI 35 - 39.9) Serious obesity comorbidity presence: with serious comorbidity Body mass index: BMI 37.0-37.9 Qualified Code(s): E66.01 - Morbid (severe) obesity due to excess calories; Z68.37 - Body mass index [BMI] 37.0-37.9, adult Code(s): E66.9 - Obesity, unspecified (3) Chronic acquired lymphedema Status: Chronic Code(s): I89.0 - Lymphedema, not elsewhere classified (4) Venous stasis dermatitis Status: Chronic Qualifiers: Laterality: bilateral Code(s): I87.2 - Venous insufficiency (chronic) (peripheral) (5) Lymphedema of both lower extremities Status: Chronic Code(s): I89.0 - Lymphedema, not elsewhere classified (6) Chronic kidney disease with end stage 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 Status: Chronic Code(s): N18.6 - End stage renal disease; Z99.2 - Dependence on renal dialysis (7) Type 2 diabetes mellitus Status: Chronic Qualifiers: Diabetes mellitus buttermaker continuous churn insulin use: with intermediate use Diabetes mellitus complication status: with kidney complications Diabetes mellitus complication detail: with chronic kidney disease Chronic kidney disease stage: on chronic dialysis Qualified Code(s): E11.22 - Type 2 diabetes mellitus with diabetic chronic kidney disease; N18.6 - End stage renal disease; 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 Russell is a 70 yo gentelman well-known to the wound center who presents due to new (recurrent) left lower extremity ulcer. Said to have started about a week ago. He initially noted increased fluid drainage and increased swelling and then erythema. His HH nurse was concerned regarding the appearance of the left lateral leg and it began draining more and his dialysis nurses were also concerned. He also has petechial appearing spots on his toes, and feet b/l but none of his upper extremities or more proximally. Denies chills, fever or otherwise feeling of unwell. He is on chronic dialysis and uses compression pumps to manage his edema. He recently underwent surgery for fistula placement for dialysis. He reports that his edema has been better than it has been in the past but has had scaling and drainage to his skin which had resolved when he was using UNNA boots when he was here last. He applies Eucerin, zinc oxide to his legs but this has not helped the scaling recently of his left leg. His left leg remains more swollen than his right and has significant keratosis. Past Medical History Past Medical History: Chronic Problems (Last Reviewed 05/29/20 @ 09:45 by Gretel Santos) Ulcer of left lower extremity with fat layer exposed (Chronic) Ulcer of left foot (Chronic) Ulcer of right lower extremity with fat layer exposed (Chronic) HERNÁN (obstructive sleep apnea) (Chronic) Obesity (Chronic) CKD (chronic kidney disease), stage III (Chronic) Morbid obesity (Chronic) Chronic acquired lymphedema (Chronic) Debility (Chronic) Chronic diastolic (congestive) heart failure (Chronic) Venous stasis dermatitis (Chronic) Respiratory failure, chronic (Chronic) Stage 3 severe COPD by GOLD classification (Chronic) Nonrheumatic aortic (valve) stenosis (Chronic) Chronic anemia (Chronic) Chronic kidney disease (Chronic) Lymphedema of both lower extremities (Chronic) Chronic kidney disease with end stage 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 (Chronic) Cardiac murmur (Chronic) Essential hypertension (Chronic) Gout (Chronic) Type 2 diabetes mellitus (Chronic) Iron deficiency anemia (Chronic) Hyperlipidemia (Chronic) Surgical History: tonsillectomy, - - arteriovenous fistula Allergies/Adverse Reactions: Allergies No Known Allergies Allergy (Verified 06/19/20 14:25) Home Medications: Ambulatory Orders Medication Instructions Recorded Ascorbic Acid [Vitamin C] 500 mg PO DAILY 03/08/17 allopurinol 300 mg tablet 300 mg PO DAILY 08/23/19 cholecalciferol (vitamin D3) 125 125 mcg PO DAILY 08/23/19 mcg (5,000 unit) capsule cyanocobalamin (vitamin B-12) 1,000 mcg PO DAILY 08/24/19 1,000 mcg capsule omega-3 fatty acids 1,000 mg 1,000 mg PO DAILY 08/24/19 capsule Simvastatin 40 mg PO QHS 10/06/19 Multivit with Iron,Minerals 1 ea PO DAILY 04/28/20 [Complete Senior] Magnesium Oxide 500 mg PO DAILY 05/10/20 Midodrine HCl 5 mg PO DAILY 05/10/20 Vit B Comp No.3/Folic/C/Biotin 1 ea PO DAILY 05/10/20 [Nephro-Kenzie Rx Tablet] - Family History Maternal Family History: Family History (Last Reviewed 05/29/20 @ 09:45 by Gretel Santos) Mother Cancer Father Hypertension Cancer - Mother with history of ovarian cancer. Paternal Family History: Family History (Last Reviewed 05/29/20 @ 09:45 by Gretel Santos) Mother Cancer Father Hypertension Hypertension, - - Head trauma. Lives: Alone Smoking Status: Former smoker Tobacco Use: Non-smoker Alcohol: None Drugs: None Review of Systems Constitutional: Denies: Chills, Fever, Weight Change Eyes: Denies: Pain, Vision Change HEENT: Denies: Difficulty Hearing, Difficulty Swallowing, Sinus Congestion Cardiovascular: Denies: Chest Pain, Palpitations Respiratory: Denies: Cough, Shortness of Breath Gastrointestinal: Denies: Diarrhea, Nausea, Vomiting Genitourinary: Denies: Dysuria, Hematuria Skin: Reports: Skin Changes, Wounds Hematologic/ Lymphatic: Denies: Easy Bruising, Easy Bleeding - Physical Exam Vital Signs Temp Pulse Resp BP 97.3 F L 102 H 20 H 112/46 L 06/30/20 09:34 06/30/20 09:34 06/30/20 09:34 06/30/20 10:52 General: Alert, Oriented x3, Cooperative, No apparent distress HEENT: Atraumatic, Normocephalic Oral: Moist Mucosa Lungs: Clear to auscultation Cardiovascular: Regular rate, Regular Rhythm Abdomen: Soft, Non Tender, Obese Extremities: Capillary Refill Less than 3 Seconds, Diminished Peripheral Pulses, Edema Skin: Ulcer/ Wound, Rash Present, - - petechial appearing lesions of his dorsal feet b/l very superficially Wound Measurements and Assessment WC - Nurse 1 - General Ulcer Measurement Start: 06/30/20 09:34 Freq: Status: Active Protocol: Activity Type Activity Date Activity User E-Sign Co-Sign Detail Recorded Client Recorded Date Recorded By Document 06/30/20 09:34 MW [id number] 06/30/20 09:45 MW 06/30/20 09:34 Wound Center Nurse 1 [Ulcer Assessment] #19 Left Lateral LE -Combined with other wound No -Current Size (cm) - Length 12.5 -Current Size (cm) - Width 6.0 -Current Size (cm) - Depth 0.1 -Total Square Cm 75.00 -Photo Taken No -Epithelialization None Present -Tunneling No -Undermining/Tunneling No -Circular Undermining No -Exudate Amt Large -Exudate Type Serosanguineous -Wound Margin Thickened -Granulation Amt Small (1-33%) -Granulation Quality [place] -Slough/Fibrin Yes -Necrosis Amt Large (67-100%) -Necrotic Tissue Type Adherent Slough -Structure Exposed N/A -Texture (Jaylyn-wound Skin Appearance) Assessed, Localized Edema -Moisture (Jaylyn-wound Skin Appearance Assessed, ) Maceration,Dry/ Scaly -Color (Jaylyn-wound Skin Appearance) Assessed, Hemosiderin Staining -Temperature (Jaylyn-wound Skin No Abnormality Appearance) (Pt Warm) -Tenderness on Palpation (Jaylyn-wound No Skin Appearance) -Ulcer Cleansing soap and water -Foul Odor after Cleansing No -Anesthetic Used 4% Lidocaine Solution [Edema Assessment] -Lower Limb Edema Present Yes -Right Calf (cm) 42.0 -Right Ankle (cm) 28.0 -Left Calf (cm) 49.0 -Left Ankle (cm) 32.3 WC - Nurse 2 - General Ulcer CM Notes Start: 06/30/20 09:34 Freq: Status: Active Protocol: Activity Type Activity Date Activity User E-Sign Co-Sign Detail Recorded Client Recorded Date Recorded By Document 06/30/20 09:51 MW [id number] 06/30/20 10:10 MW 06/30/20 09:51 Wound Center Nurse 2 [Procedure/Treatment] #20 Left Huber -Time 10:08 -Correct Patient Yes -Correct Side, Site, Position Yes -Correct Procedure Yes -Procedure Performed Yes -Type of Procedure Debridement -Clinical Debridement Subcutaneous -Tissue Removed Subcutaneous -Post Debridement (cm) - Length 1.1 -Post Debridement (cm) - Width 1.0 -Post Debridement (cm) - Depth 0.1 -Total Square (Post) (cm) 1.10 -Area of Debridement (cm) - Length 1.1 -Area of Debridement (cm) - Width 1.0 -Total Square (Area) (cm) 1.10 -Tunneling No -Undermining/Tunneling No -Circular Undermining No -Wound/Ulcer Outcome Not Healed -Ulcer Cleansing Rinsed/ Irrigated with Saline -Foul Odor after Cleansing No -Bioengineered Tissue No -Bleeding Controlled with Pressure -Offloading No -Treatment Response Procedure Tolerated Well -Debridement - Subq, 1st 20sq cm No #19 Left Lateral LE -Time 09:53 -Correct Patient Yes -Correct Side, Site, Position Yes -Correct Procedure Yes -Procedure Performed Yes -Type of Procedure Debridement -Clinical Debridement Subcutaneous -Tissue Removed Subcutaneous -Post Debridement (cm) - Length 5.7 -Post Debridement (cm) - Width 4.2 -Post Debridement (cm) - Depth 0.3 -Total Square (Post) (cm) 23.94 -Area of Debridement (cm) - Length 5.7 -Area of Debridement (cm) - Width 4.2 -Total Square (Area) (cm) 23.94 -Tunneling No -Undermining/Tunneling No -Circular Undermining No -Wound/Ulcer Outcome Not Healed -Ulcer Cleansing Rinsed/ Irrigated with Saline -Foul Odor after Cleansing No -Bioengineered Tissue No -Bleeding Controlled with Pressure -Offloading No -Treatment Response Procedure Tolerated Well -Debridement - Subq, 1st 20sq cm Yes -Debridement, SubQ, ea addt'l 20sq cm 1 or part thereof [See Physician Procedure note for Specifics] Pain Scale: 0-10 Numeric [Pain] -Is Patient Pain Free? Yes WC - Nurse 3 - General Ulcer D/C NN Start: 06/30/20 09:34 Freq: Status: Active Protocol: Activity Type Activity Date Activity User E-Sign Co-Sign Detail Recorded Client Recorded Date Recorded By Document 06/30/20 10:52 RB [id number] 06/30/20 10:54 RB 06/30/20 10:52 Wound Care Nurse 3 [Wound Dressing] #20 Left Huber -Ulcer Cleansing Rinsed/ Irrigated with Saline -Primary Dressing Applied Aquacel AG 4x4 -Other Dressing ABD -Primary Dressing Covered/Secured Dry Gauze & with Roll Gauze, Secured with Tape -Aquacel AG 4x4 2 #19 Left Lateral LE -Ulcer Cleansing Rinsed/ Irrigated with Saline -Other Dressing Aquacel ag -Primary Dressing Covered/Secured Dry Gauze,Dry with Gauze & Roll Gauze,Secured with Tape -Other Covering abd [Compression Applied] Right -Other phuc Left -Other phuc [Post Procedure Tolerated] -Treatment Response Procedure Tolerated Well Vital Signs [Blood Pressure] -Blood Pressure (90/60-120/80) 112/46 L -Blood Pressure Mean (mm Hg) 68 -Source Monitor -Position Semi-Fowlers -Blood Pressure Location Left Arm Pain Scale: 0-10 Numeric [Pain] -Is Patient Pain Free? Yes WC - Visit Discharge [Visit Discharge Information] -Discharge Condition Stable -Ambulatory Status Ambulatory, Walker -Transportation Private Auto -Medication Reconcilliation completed No & provided to patient/care provider -Clinical Summary of Care Provided Yes Psych/Mental Status: Normal Affect, Appropriate Debridement Note Post-Debridement Measurements/Treatment WC - Nurse 2 - General Ulcer CM Notes Start: 06/30/20 09:34 Freq: Status: Active Protocol: Activity Type Activity Date Activity User E-Sign Co-Sign Detail Recorded Client Recorded Date Recorded By Document 06/30/20 09:51 MW [id number] 06/30/20 10:10 MW 06/30/20 09:51 Wound Center Nurse 2 #20 Left Huber -Time 10:08 -Correct Patient Yes -Correct Side, Site, Position Yes -Correct Procedure Yes -Procedure Performed Yes -Type of Procedure Debridement -Clinical Debridement Subcutaneous -Tissue Removed Subcutaneous -Post Debridement (cm) - Length 1.1 -Post Debridement (cm) - Width 1.0 -Post Debridement (cm) - Depth 0.1 -Total Square (Post) (cm) 1.10 -Area of Debridement (cm) - Length 1.1 -Area of Debridement (cm) - Width 1.0 -Total Square (Area) (cm) 1.10 -Tunneling No -Undermining/Tunneling No -Circular Undermining No -Wound/Ulcer Outcome Not Healed -Ulcer Cleansing Rinsed/ Irrigated with Saline -Foul Odor after Cleansing No -Bioengineered Tissue No -Bleeding Controlled with Pressure -Offloading No -Treatment Response Procedure Tolerated Well -Debridement - Subq, 1st 20sq cm No #19 Left Lateral LE -Time 09:53 -Correct Patient Yes -Correct Side, Site, Position Yes -Correct Procedure Yes -Procedure Performed Yes -Type of Procedure Debridement -Clinical Debridement Subcutaneous -Tissue Removed Subcutaneous -Post Debridement (cm) - Length 5.7 -Post Debridement (cm) - Width 4.2 -Post Debridement (cm) - Depth 0.3 -Total Square (Post) (cm) 23.94 -Area of Debridement (cm) - Length 5.7 -Area of Debridement (cm) - Width 4.2 -Total Square (Area) (cm) 23.94 -Tunneling No -Undermining/Tunneling No -Circular Undermining No -Wound/Ulcer Outcome Not Healed -Ulcer Cleansing Rinsed/ Irrigated with Saline -Foul Odor after Cleansing No -Bioengineered Tissue No -Bleeding Controlled with Pressure -Offloading No -Treatment Response Procedure Tolerated Well -Debridement - Subq, 1st 20sq cm Yes -Debridement, SubQ, ea addt'l 20sq cm 1 or part thereof Pain Scale: 0-10 Numeric Is Patient Pain Free? Yes - Nurse 3 - General Ulcer D/C NN Start: 06/30/20 09:34 Freq: Status: Active Protocol: Activity Type Activity Date Activity User E-Sign Co-Sign Detail Recorded Client Recorded Date Recorded By Document 06/30/20 10:52 [id number] 06/30/20 10:54 RB 06/30/20 10:52 Wound Care Nurse 3 #20 Left Huber -Ulcer Cleansing Rinsed/ Irrigated with Saline -Primary Dressing Applied Aquacel AG 4x4 -Other Dressing ABD -Primary Dressing Covered/Secured with Dry Gauze & Roll Gauze, Secured with Tape -Aquacel AG 4x4 2 #19 Left Lateral LE -Ulcer Cleansing Rinsed/ Irrigated with Saline -Other Dressing Aquacel ag -Primary Dressing Covered/Secured with Dry Gauze,Dry Gauze & Roll Gauze,Secured with Tape -Other Covering abd Right -Other phuc Left -Other phuc Treatment Response Procedure Tolerated Well Vital Signs Blood Pressure (90/60-120/80) 112/46 L Blood Pressure Mean (mm Hg) 68 Source Monitor Position Semi-Fowlers Blood Pressure Location Left Arm Pain Scale: 0-10 Numeric Is Patient Pain Free? Yes - Visit Discharge Discharge Condition Stable Ambulatory Status Ambulatory, Walker Transportation Private Auto Medication Reconcilliation completed & No provided to patient/care provider Clinical Summary of Care Provided Yes Wound debrided: left huber Laterality: Left Type of Debridement: Excisional debridement Anesthesia Used: 4% Lidocaine Solution Depth: Down to and including healthy tissue, in the subcutaneous layer Percentage of wound debrided: 100 Instrument Used: 3mm curette, - - gauze, mechanical Tissue Removed: Yellow slough, devitalized tissue Severity: Fat Layer Exposed Amount of bleeding with debridement: Mild Bleeding Controlled with: Compression and gauze Patient tolerated procedure well Assessment/Plan Assessment: Recurrent left lower extremity ulcer. Chronic lymphedema. Morbid obesity. Plan: Mr. Guerra legs have lymphedema and chronic stasis dermatitis with recurrent ulcer of his left lateral lower leg. He also has new lesions concerning for possible petechiae. Wound culture was taken today and he was started on Levaquin for treatment of potential cellulitis. Will adjust antibiotic if needed based on culture results. His recent labs have been reviewed. Encouraged adequate protein intake. Vascular testing ordered due to concerns for underlying siginificant PAD given his DM and heart disease and h/o smoking. Radha studies also ordered. May need to consider CTA of his lower extremities depending on how his feet and petechiae progress/heal. IF they are increasing in appearance and not resolving or decreasing then would certainly evaluate and consider treatment with possibly Pletal or even aspirin. ? vasculitis. He was advised to use zinc oxide or triamcinolone cream to his legs once daily to help with his dermatitis. Will plan on returning to maintenance control of his edema with PHUC wraps. He was advised to use his compression pumps twice daily and be vigilant with elevating his legs to avoid worsening of his edema which causes the cellulitis and ulcers. Call with worsening pain, drainage or odor. F/U in 1 week.
[2020-07-07 09:55] VITALS: BP 94/47; PULSE 101; RESP 18; TEMP 36.3; BMI 37.3
--- NOTE | 2020-07-07 14:10 | PCM.WC.PN ---
(1) Ulcer of left lower extremity with fat layer exposed Status: Chronic Code(s): L97.922 - Non-pressure chronic ulcer of unspecified part of left lower leg with fat layer exposed (2) Obesity Status: Chronic Qualifiers: Obesity type: unspecified obesity type Obesity classification: adult class 2 (BMI 35 - 39.9) Serious obesity comorbidity presence: with serious comorbidity Body mass index: BMI 37.0-37.9 Qualified Code(s): E66.01 - Morbid (severe) obesity due to excess calories; Z68.37 - Body mass index [BMI] 37.0-37.9, adult Code(s): E66.9 - Obesity, unspecified (3) Chronic acquired lymphedema Status: Chronic Code(s): I89.0 - Lymphedema, not elsewhere classified (4) Venous stasis dermatitis Status: Chronic Qualifiers: Laterality: bilateral Code(s): I87.2 - Venous insufficiency (chronic) (peripheral) (5) Lymphedema of both lower extremities Status: Chronic Code(s): I89.0 - Lymphedema, not elsewhere classified (6) Chronic kidney disease with end stage 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 Status: Chronic Code(s): N18.6 - End stage renal disease; Z99.2 - Dependence on renal dialysis (7) Type 2 diabetes mellitus Status: Chronic Qualifiers: Diabetes mellitus parts counterman insulin use: with penitentiary use Diabetes mellitus complication status: with kidney complications Diabetes mellitus complication detail: with chronic kidney disease Chronic kidney disease stage: on chronic dialysis Qualified Code(s): E11.22 - Type 2 diabetes mellitus with diabetic chronic kidney disease; N18.6 - End stage renal disease; Z79.4 - parts counterman (current) use of insulin; Z99.2 - Dependence on renal dialysis Code(s): E11.9 - Type 2 diabetes mellitus without complications Type of Wound Date of Service: 07/07/20 Chief Complaint: left lower extremity ulcer, cellulitis and edema b/l LE History of Wound: Mr. Russell is a 70 yo gentelman well-known to the wound center who presents due to new (recurrent) left lower extremity ulcer. Said to have started about a week ago. He initially noted increased fluid drainage and increased swelling and then erythema. His HH nurse was concerned regarding the appearance of the left lateral leg and it began draining more and his dialysis nurses were also concerned. He also has petechial appearing spots on his toes, and feet b/l but none of his upper extremities or more proximally. Denies chills, fever or otherwise feeling of unwell. He is on chronic dialysis and uses compression pumps to manage his edema. He recently underwent surgery for fistula placement for dialysis. He reports that his edema has been better than it has been in the past but has had scaling and drainage to his skin which had resolved when he was using UNNA boots when he was here last. He applies Eucerin, zinc oxide to his legs but this has not helped the scaling recently of his left leg. His left leg remains more swollen than his right and has significant keratosis. Progress of Wound: Brenton's ulcer has improved with antibiotic treatment and Fibracol dressing. His wound culture was positive for ESBL E.coli, Pseudomonas, Staph Epidermidis, and Enterococcus. He tolerated Levaquin. Unfortunately several of the bacteria were resistant to Levaquin. He is feeling better overall and continues with hemodialysis 3 times weekly. He denies fever, chills, erythema, increased drainage or pain. - Physical Exam Vital Signs Temp Pulse Resp BP 97.3 F L 101 H 18 94/47 L 07/07/20 09:55 07/07/20 09:55 07/07/20 09:55 07/07/20 09:55 General: Alert, Oriented x3, Cooperative, No apparent distress HEENT: Atraumatic, Normocephalic Oral: Moist Mucosa Neck: Supple Lungs: Clear to auscultation Abdomen: Soft, Non Tender, Obese Extremities: Edema Skin: Ulcer/ Wound Wound Measurements and Assessment WC - Nurse 1 - General Ulcer Measurement Start: 06/30/20 09:34 Freq: Status: Active Protocol: Activity Type Activity Date Activity User E-Sign Co-Sign Detail Recorded Client Recorded Date Recorded By Document 07/07/20 09:55 [id number] 07/07/20 10:09 RB 07/07/20 09:55 Wound Center Nurse 1 [Ulcer Assessment] #20 Left Huber -Combined with other wound No -Current Size (cm) - Length 0.1 -Current Size (cm) - Width 0.1 -Current Size (cm) - Depth 0.1 -Total Square Cm 0.01 -Tunneling No -Undermining/Tunneling No -Circular Undermining No -Granulation Amt Small (1-33%) -Granulation Quality [place] -Necrosis Amt Medium (34-66%) -Necrotic Tissue Type Adherent Slough -Structure Exposed N/A -Texture (Jaylyn-wound Skin Appearance) Assessed -Moisture (Jaylyn-wound Skin Appearance Assessed,Dry/ ) Scaly -Color (Jaylyn-wound Skin Appearance) Assessed -Temperature (Jaylyn-wound Skin No Abnormality Appearance) (Pt Warm) -Tenderness on Palpation (Jaylyn-wound No Skin Appearance) -Ulcer Cleansing Wound Cleanser -Foul Odor after Cleansing No -Anesthetic Used 4% Lidocaine Solution #19 Left Lateral LE -Combined with other wound No -Current Size (cm) - Length 9.5 -Current Size (cm) - Width 5 -Current Size (cm) - Depth 0.1 -Total Square Cm 47.5 -Tunneling No -Undermining/Tunneling No -Circular Undermining No -Exudate Amt Medium -Exudate Type Serosanguineous -Wound Margin Flat & Intact -Granulation Amt Medium (34-66%) -Granulation Quality [place] -Slough/Fibrin Yes -Necrosis Amt Small (1-33%) -Necrotic Tissue Type Adherent Slough -Structure Exposed N/A -Texture (Jaylyn-wound Skin Appearance) Assessed, Excoriation -Moisture (Jaylyn-wound Skin Appearance Maceration ) -Color (Jaylyn-wound Skin Appearance) Assessed -Temperature (Jaylyn-wound Skin No Abnormality Appearance) (Pt Warm) -Tenderness on Palpation (Jaylyn-wound No Skin Appearance) -Ulcer Cleansing Wound Cleanser -Foul Odor after Cleansing No -Anesthetic Used 4% Lidocaine Solution [Edema Assessment] -Lower Limb Edema Present Yes -Right Calf (cm) 46.5 -Right Ankle (cm) 28.2 -Left Calf (cm) 45 -Left Ankle (cm) 31 WC - Nurse 2 - General Ulcer CM Notes Start: 06/30/20 09:34 Freq: Status: Active Protocol: Activity Type Activity Date Activity User E-Sign Co-Sign Detail Recorded Client Recorded Date Recorded By Document 07/07/20 10:30 MW [id number] 07/07/20 11:09 MW 07/07/20 10:30 Wound Center Nurse 2 [Procedure/Treatment] #21 RIGHT 3RD TOE -Time 10:33 -Correct Patient Yes -Correct Side, Site, Position Yes -Correct Procedure Yes -Procedure Performed Yes -Type of Procedure Debridement -Clinical Debridement Epidermis / Dermis -Tissue Removed Epidermis -Post Debridement (cm) - Length 1.2 -Post Debridement (cm) - Width 0.7 -Post Debridement (cm) - Depth 0.2 -Total Square (Post) (cm) 0.84 -Area of Debridement (cm) - Length 1.2 -Area of Debridement (cm) - Width 0.7 -Total Square (Area) (cm) 0.84 -Tunneling No -Undermining/Tunneling No -Circular Undermining No -Wound/Ulcer Outcome Not Healed -Ulcer Cleansing Rinsed/ Irrigated with Saline -Foul Odor after Cleansing No -Bioengineered Tissue No -Bleeding Controlled with Pressure -Offloading No -Treatment Response Procedure Tolerated Well -Debridement - Open, 1st 20sq cm Yes #20 Left Huber -Time 10:36 -Correct Patient Yes -Correct Side, Site, Position Yes -Correct Procedure Yes -Procedure Performed Yes -Type of Procedure Debridement -Clinical Debridement Subcutaneous -Tissue Removed Subcutaneous -Post Debridement (cm) - Length 0.5 -Post Debridement (cm) - Width 0.2 -Post Debridement (cm) - Depth 0.1 -Total Square (Post) (cm) 0.10 -Area of Debridement (cm) - Length 0.5 -Area of Debridement (cm) - Width 0.2 -Total Square (Area) (cm) 0.10 -Tunneling No -Undermining/Tunneling No -Circular Undermining No -Wound/Ulcer Outcome Not Healed -Ulcer Cleansing Rinsed/ Irrigated with Saline -Foul Odor after Cleansing No -Bioengineered Tissue No -Bleeding Controlled with Pressure -Offloading No -Treatment Response Procedure Tolerated Well -Debridement - Subq, 20sq cm Yes #19 Left Lateral LE -Time 10:37 -Correct Patient Yes -Correct Side, Site, Position Yes -Correct Procedure Yes -Procedure Performed Yes -Type of Procedure Debridement -Clinical Debridement Subcutaneous -Tissue Removed Subcutaneous -Post Debridement (cm) - Length 3.3 -Post Debridement (cm) - Width 2.4 -Post Debridement (cm) - Depth 0.2 -Total Square (Post) (cm) 7.92 -Area of Debridement (cm) - Length 3.3 -Area of Debridement (cm) - Width 2.4 -Total Square (Area) (cm) 7.92 -Tunneling No -Undermining/Tunneling No -Circular Undermining No -Wound/Ulcer Outcome Not Healed -Ulcer Cleansing Rinsed/ Irrigated with Saline -Foul Odor after Cleansing No -Bioengineered Tissue No -Bleeding Controlled with Pressure -Offloading No -Debridement - Subq, 1st 20sq cm No [See Physician Procedure note for Specifics] Pain Scale: 0-10 Numeric [Pain] -Is Patient Pain Free? Yes - Nurse 3 - General Ulcer D/C NN Start: 06/30/20 09:34 Freq: Status: Active Protocol: Activity Type Activity Date Activity User E-Sign Co-Sign Detail Recorded Client Recorded Date Recorded By Document 07/07/20 11:19 MS [id number] 07/07/20 11:21 MS 07/07/20 11:19 Wound Care Nurse 3 [Wound Dressing] #21 RIGHT 3RD TOE -Ulcer Cleansing Rinsed/ Irrigated with Saline -Foul Odor after Cleansing No -Primary Dressing Applied Fibracol Plus 4x4 -Primary Dressing Covered/Secured Dry Gauze & with Roll Gauze, Secured with Tape -Fibracol Plus 4x4 1 #20 Left Huber -Ulcer Cleansing Rinsed/ Irrigated with Saline -Foul Odor after Cleansing No -Primary Dressing Applied Fibracol Plus 4x4 -Primary Dressing Covered/Secured Dry Gauze & with Roll Gauze, Secured with Tape -Fibracol Plus 4x4 1 #19 Left Lateral LE -Ulcer Cleansing Rinsed/ Irrigated with Saline -Foul Odor after Cleansing No -Primary Dressing Applied Fibracol Plus 4x4 -Primary Dressing Covered/Secured Dry Gauze & with Roll Gauze, Secured with Tape -Fibracol Plus 4x4 0 [Compression Applied] Right -Other phuc Left -Other phuc Pain Scale: 0-10 Numeric [Pain] -Is Patient Pain Free? Yes - Visit Discharge [Visit Discharge Information] -Discharge Condition Stable -Ambulatory Status Ambulatory -Medication Reconcilliation completed No & provided to patient/care provider -Clinical Summary of Care Provided Yes Psych/Mental Status: Normal Affect, Appropriate Debridement Note Post-Debridement Measurements/Treatment - Nurse 2 - General Ulcer CM Notes Start: 06/30/20 09:34 Freq: Status: Active Protocol: Activity Type Activity Date Activity User E-Sign Co-Sign Detail Recorded Client Recorded Date Recorded By Document 06/30/20 09:51 MW [id number] 06/30/20 10:10 MW Document 07/07/20 10:30 MW [id number] 07/07/20 11:09 MW 06/30/20 07/07/20 09:51 10:30 Wound Center Nurse 2 #21 RIGHT 3RD TOE -Time 10:33 -Correct Patient Yes -Correct Side, Site, Position Yes -Correct Procedure Yes -Procedure Performed Yes -Type of Procedure Debridement -Clinical Debridement Epidermis / Dermis -Tissue Removed Epidermis -Post Debridement (cm) - Length 1.2 -Post Debridement (cm) - Width 0.7 -Post Debridement (cm) - Depth 0.2 -Total Square (Post) (cm) 0.84 -Area of Debridement (cm) - Length 1.2 -Area of Debridement (cm) - Width 0.7 -Total Square (Area) (cm) 0.84 -Tunneling No -Undermining/Tunneling No -Circular Undermining No -Wound/Ulcer Outcome Not Healed -Ulcer Cleansing Rinsed/ Irrigated with Saline -Foul Odor after Cleansing No -Bioengineered Tissue No -Bleeding Controlled with Pressure -Offloading No -Treatment Response Procedure Tolerated Well -Debridement - Open, 1st 20sq cm Yes #20 Left Huber -Time 10:08 10:36 -Correct Patient Yes Yes -Correct Side, Site, Position Yes Yes -Correct Procedure Yes Yes -Procedure Performed Yes Yes -Type of Procedure Debridement Debridement -Clinical Debridement Subcutaneous Subcutaneous -Tissue Removed Subcutaneous Subcutaneous -Post Debridement (cm) - Length 1.1 0.5 -Post Debridement (cm) - Width 1.0 0.2 -Post Debridement (cm) - Depth 0.1 0.1 -Total Square (Post) (cm) 1.10 0.10 -Area of Debridement (cm) - Length 1.1 0.5 -Area of Debridement (cm) - Width 1.0 0.2 -Total Square (Area) (cm) 1.10 0.10 -Tunneling No No -Undermining/Tunneling No No -Circular Undermining No No -Wound/Ulcer Outcome Not Healed Not Healed -Ulcer Cleansing Rinsed/ Rinsed/ Irrigated with Irrigated with Saline Saline -Foul Odor after Cleansing No No -Bioengineered Tissue No No -Bleeding Controlled with Pressure Pressure -Offloading No No -Treatment Response Procedure Procedure Tolerated Well Tolerated Well -Debridement - Subq, 1st 20sq cm No Yes #19 Left Lateral LE -Time 09:53 10:37 -Correct Patient Yes Yes -Correct Side, Site, Position Yes Yes -Correct Procedure Yes Yes -Procedure Performed Yes Yes -Type of Procedure Debridement Debridement -Clinical Debridement Subcutaneous Subcutaneous -Tissue Removed Subcutaneous Subcutaneous -Post Debridement (cm) - Length 5.7 3.3 -Post Debridement (cm) - Width 4.2 2.4 -Post Debridement (cm) - Depth 0.3 0.2 -Total Square (Post) (cm) 23.94 7.92 -Area of Debridement (cm) - Length 5.7 3.3 -Area of Debridement (cm) - Width 4.2 2.4 -Total Square (Area) (cm) 23.94 7.92 -Tunneling No No -Undermining/Tunneling No No -Circular Undermining No No -Wound/Ulcer Outcome Not Healed Not Healed -Ulcer Cleansing Rinsed/ Rinsed/ Irrigated with Irrigated with Saline Saline -Foul Odor after Cleansing No No -Bioengineered Tissue No No -Bleeding Controlled with Pressure Pressure -Offloading No No -Treatment Response Procedure Tolerated Well -Debridement - Subq, 1st 20sq cm Yes No -Debridement, SubQ, ea addt'l 20sq cm 1 or part thereof Pain Scale: 0-10 Numeric Is Patient Pain Free? Yes Yes - Nurse 3 - General Ulcer D/C NN Start: 06/30/20 09:34 Freq: Status: Active Protocol: Activity Type Activity Date Activity User E-Sign Co-Sign Detail Recorded Client Recorded Date Recorded By Document 06/30/20 10:52 [id number] 06/30/20 10:54 RB Document 07/07/20 11:19 MS [id number] 07/07/20 11:21 DC 06/30/20 07/07/20 10:52 11:19 Wound Care Nurse 3 #21 RIGHT 3RD TOE -Ulcer Cleansing Rinsed/ Irrigated with Saline -Foul Odor after Cleansing No -Primary Dressing Applied Fibracol Plus 4x4 -Primary Dressing Covered/Secured with Dry Gauze & Roll Gauze, Secured with Tape -Fibracol Plus 4x4 1 #20 Left Huber -Ulcer Cleansing Rinsed/ Rinsed/ Irrigated with Irrigated with Saline Saline -Foul Odor after Cleansing No -Primary Dressing Applied Aquacel AG 4x4 Fibracol Plus 4x4 -Other Dressing ABD -Primary Dressing Covered/Secured with Dry Gauze & Dry Gauze & Roll Gauze, Roll Gauze, Secured with Secured with Tape Tape -Aquacel AG 4x4 2 -Fibracol Plus 4x4 1 #19 Left Lateral LE -Ulcer Cleansing Rinsed/ Rinsed/ Irrigated with Irrigated with Saline Saline -Foul Odor after Cleansing No -Primary Dressing Applied Fibracol Plus 4x4 -Other Dressing Aquacel ag -Primary Dressing Covered/Secured with Dry Gauze,Dry Dry Gauze & Gauze & Roll Roll Gauze, Gauze,Secured Secured with with Tape Tape -Other Covering abd -Fibracol Plus 4x4 0 Right -Other phuc phuc Left -Other phuc phuc Treatment Response Procedure Tolerated Well Vital Signs Blood Pressure (90/60-120/80) 112/46 L Blood Pressure Mean (mm Hg) 68 Source Monitor Position Semi-Fowlers Blood Pressure Location Left Arm Pain Scale: 0-10 Numeric Is Patient Pain Free? Yes Yes WC - Visit Discharge Discharge Condition Stable Stable Ambulatory Status Ambulatory, Ambulatory Walker Transportation Private Auto Medication Reconcilliation completed & No No provided to patient/care provider Clinical Summary of Care Provided Yes Yes Wound debrided: right 3rd toe Laterality: Right Type of Debridement: Selective debridement Anesthesia Used: 4% Lidocaine Solution Depth: Down to and including healthy tissue, in the subcutaneous layer Percentage of wound debrided: 100 Instrument Used: 3mm curette Tissue Removed: Yellow slough, devitalized tissue Severity: Fat Layer Exposed Amount of bleeding with debridement: Mild Bleeding Controlled with: Compression and gauze Patient tolerated procedure well - Additional Wound Wound debrided: left huber Laterality: Left Type of Debridement: Selective debridement Anesthesia Used: 4% Lidocaine Solution Depth: Down to and including healthy tissue, in the subcutaneous layer Percentage of wound debrided: 100 Instrument Used: 3mm curette Tissue Removed: Yellow slough, devitalized tissue Severity: Fat Layer Exposed Amount of bleeding with debridement: Mild Bleeding Controlled with: Compression and gauze Patient tolerated procedure: Patient tolerated procedure well - Additional Wound Wound debrided: left lateral LE Laterality: Left Type of Debridement: Excisional debridement Anesthesia Used: 4% Lidocaine Solution Depth: Down to and including healthy tissue, in the subcutaneous layer Percentage of wound debrided: 100 Instrument Used: 3mm curette Tissue Removed: Yellow slough, devitalized tissue Severity: Fat Layer Exposed Amount of bleeding with debridement: Mild Bleeding Controlled with: Compression and gauze Patient tolerated procedure: Patient tolerated procedure well Assessment/Plan Active Problems (Last Reviewed 05/29/20 @ 09:45 by Gretel Santos) Ulcer of left lower extremity with fat layer exposed (Chronic) Obesity (Chronic) Chronic acquired lymphedema (Chronic) Venous stasis dermatitis (Chronic) Lymphedema of both lower extremities (Chronic) Chronic kidney disease with end stage 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 (Chronic) Type 2 diabetes mellitus (Chronic) Assessment: Recurrent left lower extremity ulcer. Chronic lymphedema. Morbid obesity. Plan: Mr. Guerra legs have lymphedema and chronic stasis dermatitis with recurrent ulcer of his left lateral lower leg. He also has new lesions concerning for possible petechiae of his feet. Right third toe has ulcer. Wound culture was positive and he completed Levaquin for treatment of cellulitis and Bactrim and cefdinir, renally dose for his hemodialysis were added today to treat his wound culture results. His recent labs have been reviewed. Encouraged adequate protein intake. Vascular testing ordered due to concerns for underlying siginificant PAD given his DM and heart disease and h/o smoking. Venous studies also ordered. May need to consider CTA of his lower extremities depending on how his feet and petechiae progress/heal. IF they are increasing in appearance and not resolving or decreasing then would certainly evaluate and consider treatment with possibly Pletal or even aspirin. ? vasculitis. He has had improvement in the petechial areas. He was advised to use zinc oxide or triamcinolone cream to his legs once daily to help with his dermatitis. Will plan on returning to maintenance control of his edema with PHUC wraps. He was advised to use his compression pumps twice daily and be vigilant with elevating his legs to avoid worsening of his edema which causes the cellulitis and ulcers. Call with worsening pain, drainage or odor. F/U in 1 week.
== END 2020-07-09 23:59 ==
LOC: WC 10:00
PROVIDERS: PCP Family Medicine; Visit Provider Family Medicine
DX: E11.622 Type 2 diabetes mellitus with other skin ulcer (principal); L97.822 Non-pressure chronic ulcer of other part of left lower leg with fat layer exposed; Z68.37 Body mass index [BMI] 37.0-37.9, adult; E11.621 Type 2 diabetes mellitus with foot ulcer; L97.512 Non-pressure chronic ulcer of other part of right foot with fat layer exposed; I89.0 Lymphedema, not elsewhere classified; I87.2 Venous insufficiency (chronic) (peripheral); E11.22 Type 2 diabetes mellitus with diabetic chronic kidney disease; I13.2 Hypertensive heart and chronic kidney disease with heart failure and with stage 5 chronic kidney disease, or end stage renal disease; N18.6 End stage renal disease; Z99.2 Dependence on renal dialysis; G47.33 Obstructive sleep apnea (adult) (pediatric); E66.01 Morbid (severe) obesity due to excess calories; I50.32 Chronic diastolic (congestive) heart failure; J44.9 Chronic obstructive pulmonary disease, unspecified; E78.5 Hyperlipidemia, unspecified; M10.9 Gout, unspecified; Z79.899 Other long term (current) drug therapy; D50.9 Iron deficiency anemia, unspecified; Z87.891 Personal history of nicotine dependence; R21 Rash and other nonspecific skin eruption; R23.3 Spontaneous ecchymoses
CPT/HCPCS: 11042; 11045; 87070; 87075; 87077; 87186; 87205; 97597; 99213; G0463

== ENCOUNTER 2020-07-28 09:00 | Outpatient (RCR) | payer MEDICARE, OTHER, SELFPAY ==
[2020-07-10 00:39] VITALS: BP 94/47; PULSE 101; RESP 18; TEMP 36.3
--- NOTE | 2020-07-10 09:39 | VDLE_ITS ---
Reason For Study: Ulcer RIGHT LEFT CFV is compressible, spontaneous, competent GSV is normal. and demonstrates pulsatile venous flow. CFV is compressible, spontaneous, competent, Procedure and demonstrates pulsatile venous flow. Exam performed in department. FV is compressible, spontaneous, competent A preliminary report was called and/or faxed and demonstrates pulsatile venous flow. to Dr. Sethi. POP V is compressible, spontaneous, competent Pulsatile venous flow noted. and demonstrates pulsatile venous flow. T/P Trunk is compressible. PTV is compressible. LT PerV is compressible. SFJ is competent and measures 0.55cm x 0.68 cm. GSV proximal thigh measures 0.59cm x 0.61 cm. GSV at knee measures 0.50cm x 0.56 cm. GSV is competent throughout. SSV proximal calf is competent and measures 0.24cm x 0.25 cm. Lt GastrocV is dilated and non compressible consistent with acute DVT. Interpretation Summary Acute deep vein thrombosis is noted in the left gastrocnemius vein. The remainder of the left lower extremity deep venous system is patent and compressible. Valvular competence appears intact within the proximal deep venous system on the left . The left great saphenous vein appears patent and compressible segmentally. The left sapheno-femoral junction is competent . The left great saphenous vein appears segmentally competent. The left small saphenous vein is patent and competent. Pulsatile flow is noted in the left lower extremity deep venous system, which may be indicative of elevated central venous pressure (i.e. congestive heart failure, tricuspid valve insufficiency, etc.). Clinical correlation is advised. Ordering Physician: Elena Sethi Referring Physician: Jaswinder Adrian Performed By: Teri Velasquez, BRITTA, RVT
[2020-07-14 08:34] VITALS: BP 99/48; PULSE 95; RESP 20; TEMP 36.3; BMI 37.3
--- NOTE | 2020-07-14 09:28 | PN.PCM_ITS ---
(1) Deep vein thrombosis (DVT) of left lower extremity Status: Chronic Qualifiers: Affected thrombotic vein of extremity: calf muscle vein Chronicity: acute Qualified Code(s): I82.462 - Acute embolism and thrombosis of left calf muscular vein Code(s): I82.402 - Acute embolism and thrombosis of unspecified deep veins of left lower extremity (2) Ulcer of left lower extremity with fat layer exposed Status: Chronic Code(s): L97.922 - Non-pressure chronic ulcer of unspecified part of left lower leg with fat layer exposed (3) Ulcer of right lower extremity with fat layer exposed Status: Chronic Code(s): L97.912 - Non-pressure chronic ulcer of unspecified part of right lower leg with fat layer exposed (4) HERNÁN (obstructive sleep apnea) Status: Chronic Code(s): G47.33 - Obstructive sleep apnea (adult) (pediatric) (5) Obesity Status: Chronic Qualifiers: Obesity type: due to excess calories Serious obesity comorbidity presence: with serious comorbidity Body mass index: BMI 37.0-37.9 Code(s): E66.9 - Obesity, unspecified (6) CKD (chronic kidney disease), stage III Status: Chronic Code(s): N18.3 - Chronic kidney disease, stage 3 (moderate) (7) Chronic acquired lymphedema Status: Chronic Code(s): I89.0 - Lymphedema, not elsewhere classified (8) Lymphedema of both lower extremities Status: Chronic Code(s): I89.0 - Lymphedema, not elsewhere classified (9) Chronic kidney disease with end stage 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 Status: Chronic Code(s): N18.6 - End stage renal disease; Z99.2 - Dependence on renal dialysis (10) Type 2 diabetes mellitus Status: Chronic Qualifiers: 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 Russell is a 70 yo gentelman well-known to the wound center who presents due to new (recurrent) left lower extremity ulcer. Said to have started about a week ago. He initially noted increased fluid drainage and increased swelling and then erythema. His HH nurse was concerned regarding the appearance of the left lateral leg and it began draining more and his dialysis nurses were also concerned. He also has petechial appearing spots on his toes, and feet b/l but none of his upper extremities or more proximally. Denies chills, fever or otherwise feeling of unwell. He is on chronic dialysis and uses compression pumps to manage his edema. He recently underwent surgery for fistula placement for dialysis. He reports that his edema has been better than it has been in the past but has had scaling and drainage to his skin which had resolved when he was using UNNA boots when he was here last. He applies Eucerin, zinc oxide to his legs but this has not helped the scaling recently of his left leg. His left leg remains more swollen than his right and has significant keratosis. Progress of Wound: Brenton's ulcer has improved with antibiotic treatment and Fibracol dressing. His wound culture was positive for ESBL E.coli, Pseudomonas, Staph Epidermidis, and Enterococcus. He has completed antibiotic treatment. His venous doppler showed left gastrocnemious vein DVT. He was started on warfarin and lovenox on Friday and is tolerating well. His PCP - Dr. Adrian will monitor his INR levels. Dr. Mcleod, his terra cotta roofer helper, was also contacted regarding anticoagulation and she preferred warfarin over Xarelto or Eliquis with his chronic kidney disease and dialysis. He is feeling well overall and continues with hemodialysis 3 times weekly. He denies fever, chills, erythema, increased drainage or pain, bleeding. - Physical Exam Vital Signs Temp Pulse Resp BP 97.4 F L 95 20 H 99/48 L 07/14/20 08:34 07/14/20 08:34 07/14/20 08:34 07/14/20 08:34 General: Alert, Oriented x3, Cooperative, No apparent distress HEENT: Atraumatic, Normocephalic Oral: Moist Mucosa Abdomen: Obese Extremities: Edema Skin: Ulcer/ Wound Wound Measurements and Assessment WC - Nurse 1 - General Ulcer Measurement Start: 07/14/20 08:34 Freq: Status: Active Protocol: Activity Type Activity Date Activity User E-Sign Co-Sign Detail Recorded Client Recorded Date Recorded By Document 07/14/20 08:34 DL [id number] 07/14/20 08:44 DL 07/14/20 08:34 Wound Center Nurse 1 [Ulcer Assessment] #21 RIGHT 3RD TOE -Current Size (cm) - Length 1 -Current Size (cm) - Width 0.4 -Current Size (cm) - Depth 0.1 -Total Square Cm 0.4 -Photo Taken No -Exudate Amt None Present -Wound Margin Flat & Intact -Granulation Amt Large (67-100%) -Granulation Quality [place] -Necrosis Amt None Present (0 %) -Structure Exposed N/A -Texture (Jaylyn-wound Skin Appearance) Scarring -Moisture (Jaylyn-wound Skin Appearance Dry/Scaly ) -Color (Jaylyn-wound Skin Appearance) Hemosiderin Staining -Temperature (Jaylyn-wound Skin No Abnormality Appearance) (Pt Warm) -Tenderness on Palpation (Jaylyn-wound No Skin Appearance) -Ulcer Cleansing Wound Cleanser -Foul Odor after Cleansing No -Anesthetic Used 4% Lidocaine Solution #20 Left Huber -Current Size (cm) - Length 0.1 -Current Size (cm) - Width 0.1 -Current Size (cm) - Depth 0.1 -Total Square Cm 0.01 -Photo Taken No -Exudate Amt None Present -Wound Margin Flat & Intact -Granulation Amt Large (67-100%) -Granulation Quality Pale,[place] -Necrosis Amt Small (1-33%) -Necrotic Tissue Type Adherent Slough -Structure Exposed N/A -Texture (Jaylyn-wound Skin Appearance) Scarring -Moisture (Jaylyn-wound Skin Appearance Dry/Scaly ) -Color (Jaylyn-wound Skin Appearance) Hemosiderin Staining -Temperature (Jaylyn-wound Skin No Abnormality Appearance) (Pt Warm) -Tenderness on Palpation (Jaylyn-wound No Skin Appearance) -Ulcer Cleansing Wound Cleanser -Foul Odor after Cleansing No -Anesthetic Used 4% Lidocaine Solution #19 Left Lateral LE -Current Size (cm) - Length 0.1 -Current Size (cm) - Width 0.1 -Current Size (cm) - Depth 0.1 -Total Square Cm 0.01 -Photo Taken No -Exudate Amt None Present -Wound Margin Flat & Intact -Granulation Amt Large (67-100%) -Granulation Quality Pale,[place] -Necrosis Amt Small (1-33%) -Necrotic Tissue Type Adherent Slough -Texture (Jaylyn-wound Skin Appearance) Scarring -Moisture (Jaylyn-wound Skin Appearance Dry/Scaly ) -Color (Jaylyn-wound Skin Appearance) Hemosiderin Staining -Temperature (Jaylyn-wound Skin No Abnormality Appearance) (Pt Warm) -Tenderness on Palpation (Jaylyn-wound No Skin Appearance) -Ulcer Cleansing Wound Cleanser -Foul Odor after Cleansing No -Anesthetic Used 4% Lidocaine Solution [Edema Assessment] -Right Calf (cm) 38.5 -Right Ankle (cm) 28 -Left Calf (cm) 42 -Left Ankle (cm) 30.2 WC - Nurse 2 - General Ulcer CM Notes Start: 07/14/20 08:34 Freq: Status: Active Protocol: Activity Type Activity Date Activity User E-Sign Co-Sign Detail Recorded Client Recorded Date Recorded By Document 07/14/20 08:49 MW [id number] 07/14/20 09:00 MW 07/14/20 08:49 Wound Center Nurse 2 [Procedure/Treatment] #21 RIGHT 3RD TOE -Time 08:51 -Correct Patient Yes -Correct Side, Site, Position Yes -Correct Procedure Yes -Procedure Performed No -Post Debridement (cm) - Length 0 -Post Debridement (cm) - Width 0 -Post Debridement (cm) - Depth 0 -Total Square (Post) (cm) 0 -Tunneling No -Undermining/Tunneling No -Circular Undermining No -Wound/Ulcer Outcome Healed- Epithelialized -Treatment Response Procedure Tolerated Well #20 Left Huber -Time 08:56 -Correct Patient Yes -Correct Side, Site, Position Yes -Correct Procedure Yes -Procedure Performed No -Post Debridement (cm) - Length 0 -Post Debridement (cm) - Width 0 -Post Debridement (cm) - Depth 0 -Total Square (Post) (cm) 0 -Wound/Ulcer Outcome Healed- Epithelialized #19 Left Lateral LE -Time 08:51 -Correct Patient Yes -Correct Side, Site, Position Yes -Correct Procedure Yes -Procedure Performed Yes -Type of Procedure Debridement -Clinical Debridement Epidermis / Dermis -Tissue Removed Epidermis -Post Debridement (cm) - Length 2.5 -Post Debridement (cm) - Width 1.5 -Post Debridement (cm) - Depth 0.2 -Total Square (Post) (cm) 3.75 -Area of Debridement (cm) - Length 2.5 -Area of Debridement (cm) - Width 1.5 -Total Square (Area) (cm) 3.75 -Tunneling No -Undermining/Tunneling No -Circular Undermining No -Wound/Ulcer Outcome Not Healed -Ulcer Cleansing Rinsed/ Irrigated with Saline -Foul Odor after Cleansing No -Bioengineered Tissue No -Bleeding Controlled with Pressure -Offloading No -Treatment Response Procedure Tolerated Well -Debridement - Open, 1st 20sq cm Yes [See Physician Procedure note for Specifics] Pain Scale: 0-10 Numeric [Pain] -Is Patient Pain Free? Yes - Nurse 3 - General Ulcer D/C NN Start: 07/14/20 08:34 Freq: Status: Active Protocol: Activity Type Activity Date Activity User E-Sign Co-Sign Detail Recorded Client Recorded Date Recorded By Document 07/14/20 09:04 MW [id number] 07/14/20 09:06 MW 07/14/20 09:04 Wound Care Nurse 3 [Wound Dressing] #19 Left Lateral LE -Ulcer Cleansing Rinsed/ Irrigated with Saline -Foul Odor after Cleansing No -Negative Pressure Wound Therapy N/A -Primary Dressing Applied Fibracol Plus 4x4 -Primary Dressing Covered/Secured Dry Gauze & with Roll Gauze, Secured with Tape -Other Covering abd -Fibracol Plus 4x4 1 [Post Procedure Tolerated] -Treatment Response Procedure Tolerated Well Pain Scale: 0-10 Numeric [Pain] -Is Patient Pain Free? Yes Teaching: Wound Center [Wound Center Education] (Items with an * have Printed Materials Available- Please identify what is given to patient under the Teaching materials given to patient and caregiver Section. Compression Wraps & Stockings -Person Taught Patient -Teaching Method Discussion -Response to teaching Verbalize understanding Dressing Your Wound -Person Taught Patient -Teaching Method Discussion -Response to teaching Verbalize understanding - Visit Discharge [Visit Discharge Information] -Discharge Condition Stable -Ambulatory Status Ambulatory, Walker -Transportation Private Auto -Accompanied by [facility] transportation -Medication Reconcilliation completed No & provided to patient/care provider -Clinical Summary of Care Provided Yes Psych/Mental Status: Normal Affect, Appropriate Debridement Note Post-Debridement Measurements/Treatment - Nurse 2 - General Ulcer CM Notes Start: 07/14/20 08:34 Freq: Status: Active Protocol: Activity Type Activity Date Activity User E-Sign Co-Sign Detail Recorded Client Recorded Date Recorded By Document 07/14/20 08:49 MW [id number] 07/14/20 09:00 MW 07/14/20 08:49 Wound Center Nurse 2 #21 RIGHT 3RD TOE -Time 08:51 -Correct Patient Yes -Correct Side, Site, Position Yes -Correct Procedure Yes -Procedure Performed No -Post Debridement (cm) - Length 0 -Post Debridement (cm) - Width 0 -Post Debridement (cm) - Depth 0 -Total Square (Post) (cm) 0 -Tunneling No -Undermining/Tunneling No -Circular Undermining No -Wound/Ulcer Outcome Healed- Epithelialized -Treatment Response Procedure Tolerated Well #20 Left Huber -Time 08:56 -Correct Patient Yes -Correct Side, Site, Position Yes -Correct Procedure Yes -Procedure Performed No -Post Debridement (cm) - Length 0 -Post Debridement (cm) - Width 0 -Post Debridement (cm) - Depth 0 -Total Square (Post) (cm) 0 -Wound/Ulcer Outcome Healed- Epithelialized #19 Left Lateral LE -Time 08:51 -Correct Patient Yes -Correct Side, Site, Position Yes -Correct Procedure Yes -Procedure Performed Yes -Type of Procedure Debridement -Clinical Debridement Epidermis / Dermis -Tissue Removed Epidermis -Post Debridement (cm) - Length 2.5 -Post Debridement (cm) - Width 1.5 -Post Debridement (cm) - Depth 0.2 -Total Square (Post) (cm) 3.75 -Area of Debridement (cm) - Length 2.5 -Area of Debridement (cm) - Width 1.5 -Total Square (Area) (cm) 3.75 -Tunneling No -Undermining/Tunneling No -Circular Undermining No -Wound/Ulcer Outcome Not Healed -Ulcer Cleansing Rinsed/ Irrigated with Saline -Foul Odor after Cleansing No -Bioengineered Tissue No -Bleeding Controlled with Pressure -Offloading No -Treatment Response Procedure Tolerated Well -Debridement - Open, 1st 20sq cm Yes Pain Scale: 0-10 Numeric Is Patient Pain Free? Yes WC - Nurse 3 - General Ulcer D/C NN Start: 07/14/20 08:34 Freq: Status: Active Protocol: Activity Type Activity Date Activity User E-Sign Co-Sign Detail Recorded Client Recorded Date Recorded By Document 07/14/20 09:04 MW [id number] 07/14/20 09:06 MW 07/14/20 09:04 Wound Care Nurse 3 #19 Left Lateral LE -Ulcer Cleansing Rinsed/ Irrigated with Saline -Foul Odor after Cleansing No -Negative Pressure Wound Therapy N/A -Primary Dressing Applied Fibracol Plus 4x4 -Primary Dressing Covered/Secured with Dry Gauze & Roll Gauze, Secured with Tape -Other Covering abd -Fibracol Plus 4x4 1 Treatment Response Procedure Tolerated Well Pain Scale: 0-10 Numeric Is Patient Pain Free? Yes Teaching: Wound Center Compression Wraps & Stockings -Person Taught Patient -Teaching Method Discussion -Response to teaching Verbalize understanding Dressing Your Wound -Person Taught Patient -Teaching Method Discussion -Response to teaching Verbalize understanding WC - Visit Discharge Discharge Condition Stable Ambulatory Status Ambulatory, Walker Transportation Private Auto Accompanied by [facility] transportation Medication Reconcilliation completed & No provided to patient/care provider Clinical Summary of Care Provided Yes Wound debrided: right 3rd toe Laterality: Right No debridement was completed today - healed - Additional Wound Wound debrided: left huber Laterality: Left Operative Diagnosis: no debridement was done - healed - Additional Wound Wound debrided: left lateral LE Laterality: Left Type of Debridement: Selective debridement Anesthesia Used: 4% Lidocaine Solution Depth: Down to and including healthy tissue, in the subcutaneous layer Percentage of wound debrided: 100 Instrument Used: - - gauze Tissue Removed: Yellow slough, devitalized tissue Severity: Fat Layer Exposed Amount of bleeding with debridement: Mild Bleeding Controlled with: Compression and gauze Patient tolerated procedure: Patient tolerated procedure well Assessment/Plan Assessment: Recurrent left lower extremity ulcer. Chronic lymphedema. Morbid obesity. Plan: Mr. Guerra legs have lymphedema and chronic stasis dermatitis with recurrent ulcer of his left lateral lower leg. His petechial lesions are healing. He was started on warfarin and lovenox for DVT left LE. INR was ordered for Home Health to complete. He had labs yesterday with PCP. Dr. Adrian will monitor his INR/warfarin therapy. Wound culture was positive and he completed Levaquin for treatment of cellulitis and Bactrim and cefdinir, renally dose for his hemodialysis were also completed to treat his wound culture results. His recent labs have been reviewed. Encouraged adequate protein intake. Vascular testing ordered due to concerns for underlying siginificant PAD given his DM and heart disease and h/o smoking. Venous studies also ordered. He was advised to use zinc oxide or triamcinolone cream to his legs once daily to help with his dermatitis. Will plan on returning to maintenance control of his edema with PHUC wraps. He was advised to use his compression pumps twice daily and be vigilant with elevating his legs to avoid worsening of his edema which causes the cellulitis and ulcers. Call with worsening pain, drainage or odor. F/U in 1 week.
[2020-07-28 08:49] VITALS: BP 107/51; PULSE 99; RESP 20; TEMP 36.4; BMI 37.3
--- NOTE | 2020-07-28 13:05 | PN.PCM_ITS ---
(1) Deep vein thrombosis (DVT) of left lower extremity Status: Chronic Qualifiers: Affected thrombotic vein of extremity: calf muscle vein Chronicity: acute Qualified Code(s): I82.462 - Acute embolism and thrombosis of left calf muscular vein Code(s): I82.402 - Acute embolism and thrombosis of unspecified deep veins of left lower extremity (2) Ulcer of left lower extremity with fat layer exposed Status: Chronic Code(s): L97.922 - Non-pressure chronic ulcer of unspecified part of left lower leg with fat layer exposed (3) Ulcer of right lower extremity with fat layer exposed Status: Chronic Code(s): L97.912 - Non-pressure chronic ulcer of unspecified part of right lower leg with fat layer exposed (4) HERNÁN (obstructive sleep apnea) Status: Chronic Code(s): G47.33 - Obstructive sleep apnea (adult) (pediatric) (5) Obesity Status: Chronic Qualifiers: Obesity type: due to excess calories Serious obesity comorbidity presence: with serious comorbidity Body mass index: BMI 37.0-37.9 Code(s): E66.9 - Obesity, unspecified (6) CKD (chronic kidney disease), stage III Status: Chronic Code(s): N18.3 - Chronic kidney disease, stage 3 (moderate) (7) Chronic acquired lymphedema Status: Chronic Code(s): I89.0 - Lymphedema, not elsewhere classified (8) Lymphedema of both lower extremities Status: Chronic Code(s): I89.0 - Lymphedema, not elsewhere classified (9) Chronic kidney disease with end stage 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 Status: Chronic Code(s): N18.6 - End stage renal disease; Z99.2 - Dependence on renal dialysis (10) Type 2 diabetes mellitus Status: Chronic Qualifiers: Diabetes mellitus intermediate manager insulin use: with half-way use Diabetes mellitus complication status: with skin complications Diabetes mellitus complication detail: with other skin ulcer Qualified Code(s): E11.622 - Type 2 diabetes mellitus with other skin ulcer; Z79.4 - nursing home (current) use of insulin Code(s): E11.9 - Type 2 diabetes mellitus without complications Type of Wound Date of Service: 07/28/20 Chief Complaint: left lower extremity ulcer, cellulitis and edema b/l LE History of Wound: Mr. Russell is a 70 yo gentelman well-known to the wound center who presents due to new (recurrent) left lower extremity ulcer. Said to have started about a week ago. He initially noted increased fluid drainage and increased swelling and then erythema. His HH nurse was concerned regarding the appearance of the left lateral leg and it began draining more and his dialysis nurses were also concerned. He also has petechial appearing spots on his toes, and feet b/l but none of his upper extremities or more proximally. Denies chills, fever or otherwise feeling of unwell. He is on chronic dialysis and uses compression pumps to manage his edema. He recently underwent surgery for fistula placement for dialysis. He reports that his edema has been better than it has been in the past but has had scaling and drainage to his skin which had resolved when he was using UNNA boots when he was here last. He applies Eucerin, zinc oxide to his legs but this has not helped the scaling recently of his left leg. His left leg remains more swollen than his right and has significant keratosis. Progress of Wound: Brenton's ulcer has improved with antibiotic treatment and Fibracol dressing. His wound culture was positive for ESBL E.coli, Pseudomonas, Staph Epidermidis, and Enterococcus. He has completed antibiotic treatment but has an infection in his port and is on IV antibiotics during dialysis which he will complete on Friday. His venous doppler showed left gastrocnemious vein DVT. His INR was 3.7 on Friday. His PCP - Dr. Adrian will monitor his INR levels. Dr. Mcleod, his rn disease management, was also contacted regarding anticoagulation and she preferred warfarin over Xarelto or Eliquis with his chronic kidney disease and dialysis. He is feeling well overall and continues with hemodialysis 3 times weekly. He denies fever, chills, erythema, increased drainage or pain, bleeding. - Physical Exam Vital Signs Temp Pulse Resp BP 97.5 F L 99 20 H 107/51 L 07/28/20 08:49 07/28/20 08:49 07/28/20 08:49 07/28/20 08:49 General: Alert, Oriented x3, Cooperative, No apparent distress HEENT: Atraumatic, Normocephalic Oral: Moist Mucosa Abdomen: Soft, Non Tender, Obese Extremities: Edema Skin: Ulcer/ Wound Wound Measurements and Assessment WC - Nurse 1 - General Ulcer Measurement Start: 07/14/20 08:34 Freq: Status: Active Protocol: Activity Type Activity Date Activity User E-Sign Co-Sign Detail Recorded Client Recorded Date Recorded By Document 07/28/20 08:49 MW [id number] 07/28/20 08:52 MW 07/28/20 08:49 Wound Center Nurse 1 [Ulcer Assessment] #19 Left Lateral LE -Combined with other wound No -Current Size (cm) - Length 2.4 -Current Size (cm) - Width 1.8 -Current Size (cm) - Depth 0.2 -Total Square Cm 4.32 -Photo Taken No -Epithelialization None Present -Tunneling No -Undermining/Tunneling No -Circular Undermining No -Exudate Amt Small -Exudate Type Serosanguineous -Wound Margin Flat & Intact -Granulation Amt Medium (34-66%) -Granulation Quality [place] -Slough/Fibrin Yes -Necrosis Amt Medium (34-66%) -Necrotic Tissue Type Adherent Slough -Structure Exposed N/A -Texture (Jaylyn-wound Skin Appearance) Assessed, Localized Edema ,Scarring -Moisture (Jaylyn-wound Skin Appearance Assessed, ) Weeping,Dry/ Scaly -Color (Jaylyn-wound Skin Appearance) Assessed, Hemosiderin Staining -Temperature (Jaylyn-wound Skin No Abnormality Appearance) (Pt Warm) -Tenderness on Palpation (Jaylyn-wound Yes Skin Appearance) -Ulcer Cleansing Rinsed/ Irrigated with Saline -Foul Odor after Cleansing No -Anesthetic Used 4% Lidocaine Solution [Edema Assessment] -Lower Limb Edema Present Yes -Right Calf (cm) 46.3 -Right Ankle (cm) 29.0 -Left Calf (cm) 47.5 -Left Ankle (cm) 32.5 WC - Nurse 2 - General Ulcer CM Notes Start: 07/14/20 08:34 Freq: Status: Active Protocol: Activity Type Activity Date Activity User E-Sign Co-Sign Detail Recorded Client Recorded Date Recorded By Document 07/28/20 08:58 MW [id number] 07/28/20 09:07 MW 07/28/20 08:58 Wound Center Nurse 2 [Procedure/Treatment] #19 Left Lateral LE -Time 08:58 -Correct Patient Yes -Correct Side, Site, Position Yes -Correct Procedure Yes -Procedure Performed Yes -Type of Procedure Debridement -Clinical Debridement Epidermis / Dermis -Tissue Removed Epidermis -Post Debridement (cm) - Length 2.4 -Post Debridement (cm) - Width 1.5 -Post Debridement (cm) - Depth 0.3 -Total Square (Post) (cm) 3.60 -Area of Debridement (cm) - Length 2.4 -Area of Debridement (cm) - Width 1.5 -Total Square (Area) (cm) 3.60 -Tunneling No -Undermining/Tunneling No -Circular Undermining No -Wound/Ulcer Outcome Not Healed -Ulcer Cleansing Rinsed/ Irrigated with Saline -Foul Odor after Cleansing No -Bioengineered Tissue No -Bleeding Controlled with Pressure -Offloading No -Treatment Response Procedure Tolerated Well -Debridement - Open, 1st 20sq cm Yes [See Physician Procedure note for Specifics] Pain Scale: 0-10 Numeric [Pain] -Is Patient Pain Free? Yes - Nurse 3 - General Ulcer D/C NN Start: 07/14/20 08:34 Freq: Status: Active Protocol: Activity Type Activity Date Activity User E-Sign Co-Sign Detail Recorded Client Recorded Date Recorded By Document 07/28/20 09:29 [facility] [id number] 07/28/20 09:31 [facility] 07/28/20 09:29 Wound Care Nurse 3 [Wound Dressing] #19 Left Lateral LE -Ulcer Cleansing Rinsed/ Irrigated with Saline -Foul Odor after Cleansing No -Primary Dressing Applied Fibracol Plus 4x4 -Primary Dressing Covered/Secured Dry Gauze & with Roll Gauze, Secured with Tape,Other -Other Covering abd -Fibracol Plus 4x4 1 [Compression Applied] Right -Compression Wrap Krunal Wrap Left -Compression Wrap Krunal Wrap [Post Procedure Tolerated] -Treatment Response Procedure Tolerated Well Pain Scale: 0-10 Numeric [Pain] -Is Patient Pain Free? Yes - Visit Discharge [Visit Discharge Information] -Discharge Condition Stable -Ambulatory Status Ambulatory, Walker -Transportation Private Auto [Facility Notification] -Facility Type Home Health Psych/Mental Status: Normal Affect, Appropriate Debridement Note Post-Debridement Measurements/Treatment - Nurse 2 - General Ulcer CM Notes Start: 07/14/20 08:34 Freq: Status: Active Protocol: Activity Type Activity Date Activity User E-Sign Co-Sign Detail Recorded Client Recorded Date Recorded By Document 07/14/20 08:49 MW [id number] 07/14/20 09:00 MW Document 07/28/20 08:58 MW [id number] 07/28/20 09:07 MW 07/14/20 07/28/20 08:49 08:58 Wound Center Nurse 2 #21 RIGHT 3RD TOE -Time 08:51 -Correct Patient Yes -Correct Side, Site, Position Yes -Correct Procedure Yes -Procedure Performed No -Post Debridement (cm) - Length 0 -Post Debridement (cm) - Width 0 -Post Debridement (cm) - Depth 0 -Total Square (Post) (cm) 0 -Tunneling No -Undermining/Tunneling No -Circular Undermining No -Wound/Ulcer Outcome Healed- Epithelialized -Treatment Response Procedure Tolerated Well #20 Left Huber -Time 08:56 -Correct Patient Yes -Correct Side, Site, Position Yes -Correct Procedure Yes -Procedure Performed No -Post Debridement (cm) - Length 0 -Post Debridement (cm) - Width 0 -Post Debridement (cm) - Depth 0 -Total Square (Post) (cm) 0 -Wound/Ulcer Outcome Healed- Epithelialized #19 Left Lateral LE -Time 08:51 08:58 -Correct Patient Yes Yes -Correct Side, Site, Position Yes Yes -Correct Procedure Yes Yes -Procedure Performed Yes Yes -Type of Procedure Debridement Debridement -Clinical Debridement Epidermis / Epidermis / Dermis Dermis -Tissue Removed Epidermis Epidermis -Post Debridement (cm) - Length 2.5 2.4 -Post Debridement (cm) - Width 1.5 1.5 -Post Debridement (cm) - Depth 0.2 0.3 -Total Square (Post) (cm) 3.75 3.60 -Area of Debridement (cm) - Length 2.5 2.4 -Area of Debridement (cm) - Width 1.5 1.5 -Total Square (Area) (cm) 3.75 3.60 -Tunneling No No -Undermining/Tunneling No No -Circular Undermining No No -Wound/Ulcer Outcome Not Healed Not Healed -Ulcer Cleansing Rinsed/ Rinsed/ Irrigated with Irrigated with Saline Saline -Foul Odor after Cleansing No No -Bioengineered Tissue No No -Bleeding Controlled with Pressure Pressure -Offloading No No -Treatment Response Procedure Procedure Tolerated Well Tolerated Well -Debridement - Open, 1st 20sq cm Yes Yes Pain Scale: 0-10 Numeric Is Patient Pain Free? Yes Yes WC - Nurse 3 - General Ulcer D/C NN Start: 07/14/20 08:34 Freq: Status: Active Protocol: Activity Type Activity Date Activity User E-Sign Co-Sign Detail Recorded Client Recorded Date Recorded By Document 07/14/20 09:04 [id number] 07/14/20 09:06 Document 07/28/20 09:29 [facility] [id number] 07/28/20 09:31 [facility] 07/14/20 07/28/20 09:04 09:29 Wound Care Nurse 3 #19 Left Lateral LE -Ulcer Cleansing Rinsed/ Rinsed/ Irrigated with Irrigated with Saline Saline -Foul Odor after Cleansing No No -Negative Pressure Wound Therapy N/A -Primary Dressing Applied Fibracol Plus Fibracol Plus 4x4 4x4 -Primary Dressing Covered/Secured with Dry Gauze & Dry Gauze & Roll Gauze, Roll Gauze, Secured with Secured with Tape Tape,Other -Other Covering abd abd -Fibracol Plus 4x4 1 1 Right -Compression Wrap Krunal Wrap Left -Compression Wrap Krunal Wrap Treatment Response Procedure Procedure Tolerated Well Tolerated Well Pain Scale: 0-10 Numeric Is Patient Pain Free? Yes Yes Teaching: Wound Center Compression Wraps & Stockings -Person Taught Patient -Teaching Method Discussion -Response to teaching Verbalize understanding Dressing Your Wound -Person Taught Patient -Teaching Method Discussion -Response to teaching Verbalize understanding WC - Visit Discharge Discharge Condition Stable Stable Ambulatory Status Ambulatory, Ambulatory, Walker Walker Transportation Private Auto Private Auto Accompanied by [facility] transportation Medication Reconcilliation completed & No provided to patient/care provider Clinical Summary of Care Provided Yes Facility Type Home Health Wound debrided: Left lateral LE Laterality: Left Type of Debridement: Excisional debridement Anesthesia Used: 4% Lidocaine Solution Depth: Down to and including healthy tissue, in the subcutaneous layer Percentage of wound debrided: 100 Instrument Used: 3mm curette Tissue Removed: Yellow slough, devitalized tissue Severity: Fat Layer Exposed Amount of bleeding with debridement: Mild Bleeding Controlled with: Compression and gauze Patient tolerated procedure well Assessment/Plan Active Problems (Last Reviewed 05/29/20 @ 09:45 by Gretel Santos) Deep vein thrombosis (DVT) of left lower extremity (Chronic) Ulcer of left lower extremity with fat layer exposed (Chronic) Ulcer of right lower extremity with fat layer exposed (Chronic) HERNÁN (obstructive sleep apnea) (Chronic) Obesity (Chronic) CKD (chronic kidney disease), stage III (Chronic) Chronic acquired lymphedema (Chronic) Lymphedema of both lower extremities (Chronic) Chronic kidney disease with end stage 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 (Chronic) Type 2 diabetes mellitus (Chronic) Assessment: Recurrent left lower extremity ulcer. Chronic lymphedema. Morbid obesity. Plan: Mr. Guerra legs have lymphedema and chronic stasis dermatitis with recurrent ulcer of his left lateral lower leg. His petechial lesions are healing. He has increased edema today bilateral. He was started on warfarin for DVT left LE. Dr. Adrian will monitor his INR/warfarin therapy. Given his erythema and increased edema I am going to start him on doxycycline once he completes his IV antibiotic treatment on Friday. His recent labs have been reviewed. Encouraged adequate protein intake. Vascular testing ordered due to concerns for underlying siginificant PAD given his DM and heart disease and h/o smoking. Venous studies showed DVT. Arterial studies postponed for 1 month due to DVT. He was advised to use zinc oxide or triamcinolone cream to his legs once daily to help with his dermatitis. Will plan on returning to maintenance control of his edema with KRUNAL wraps. He was advised to use his compression pumps twice daily and be vigilant with elevating his legs to avoid worsening of his edema which causes the cellulitis and ulcers. Call with worsening pain, drainage or odor. F/U in 1 week.
== END 2020-08-09 23:59 ==
LOC: WC 09:00
PROVIDERS: PCP Family Medicine; Referring Provider Family Medicine; Visit Provider Family Medicine
DX: E11.622 Type 2 diabetes mellitus with other skin ulcer (principal); L97.822 Non-pressure chronic ulcer of other part of left lower leg with fat layer exposed; G47.33 Obstructive sleep apnea (adult) (pediatric); I82.462 Acute embolism and thrombosis of left calf muscular vein; E66.9 Obesity, unspecified; Z68.37 Body mass index [BMI] 37.0-37.9, adult; E11.22 Type 2 diabetes mellitus with diabetic chronic kidney disease; N18.6 End stage renal disease; I89.0 Lymphedema, not elsewhere classified; Z99.2 Dependence on renal dialysis; Z79.01 Long term (current) use of anticoagulants
CPT/HCPCS: 93971; 97597

== ENCOUNTER 2020-09-01 08:30 | Outpatient (RCR) | payer MEDICARE, OTHER, SELFPAY ==
[2020-08-10 00:45] VITALS: BP 107/51; PULSE 99; RESP 20; TEMP 36.4
[2020-08-11 08:40] VITALS: BP 98/40; PULSE 100; TEMP 36.7; BMI 37.3
--- NOTE | 2020-08-11 13:14 | PN.PCM_ITS ---
(1) Deep vein thrombosis (DVT) of left lower extremity Status: Chronic Qualifiers: Affected thrombotic vein of extremity: calf muscle vein Chronicity: acute Qualified Code(s): I82.462 - Acute embolism and thrombosis of left calf muscular vein Code(s): I82.402 - Acute embolism and thrombosis of unspecified deep veins of left lower extremity (2) Ulcer of left lower extremity with fat layer exposed Status: Chronic Code(s): L97.922 - Non-pressure chronic ulcer of unspecified part of left lower leg with fat layer exposed (3) Ulcer of right lower extremity with fat layer exposed Status: Chronic Code(s): L97.912 - Non-pressure chronic ulcer of unspecified part of right lower leg with fat layer exposed (4) HERNÁN (obstructive sleep apnea) Status: Chronic Code(s): G47.33 - Obstructive sleep apnea (adult) (pediatric) (5) Obesity Status: Chronic Qualifiers: Obesity type: unspecified obesity type Obesity classification: adult class 2 (BMI 35 - 39.9) Serious obesity comorbidity presence: with serious comorbidity Body mass index: BMI 37.0-37.9 Qualified Code(s): E66.01 - Morbid (severe) obesity due to excess calories; Z68.37 - Body mass index [BMI] 37.0-37.9, adult Code(s): E66.9 - Obesity, unspecified (6) Stage 3 severe COPD by GOLD classification Status: Chronic Code(s): J44.9 - Chronic obstructive pulmonary disease, unspecified (7) Chronic kidney disease with end stage 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 Status: Chronic Code(s): N18.6 - End stage renal disease; Z99.2 - Dependence on renal dialysis (8) Type 2 diabetes mellitus Status: Chronic Qualifiers: Diabetes mellitus watermelon inspector insulin use: with watermelon inspector use Diabetes mellitus complication status: with kidney complications Diabetes mellitus complication detail: with chronic kidney disease Chronic kidney disease stage: on chronic dialysis Qualified Code(s): E11.22 - Type 2 diabetes mellitus with diabetic chronic kidney disease; N18.6 - End stage renal disease; Z79.4 - residential (current) use of insulin; Z99.2 - Dependence on renal dialysis Code(s): E11.9 - Type 2 diabetes mellitus without complications Type of Wound Date of Service: 08/11/20 Chief Complaint: left lower extremity ulcer, cellulitis and edema b/l LE History of Wound: Mr. Russell is a 70 yo gentelman well-known to the wound center who presents due to new (recurrent) left lower extremity ulcer. Said to have started about a week ago. He initially noted increased fluid drainage and increased swelling and then erythema. His HH nurse was concerned regarding the appearance of the left lateral leg and it began draining more and his dialysis nurses were also concerned. He also has petechial appearing spots on his toes, and feet b/l but none of his upper extremities or more proximally. Denies chills, fever or otherwise feeling of unwell. He is on chronic dialysis and uses compression pumps to manage his edema. He recently underwent surgery for fistula placement for dialysis. He reports that his edema has been better than it has been in the past but has had scaling and drainage to his skin which had resolved when he was using UNNA boots when he was here last. He applies Eucerin, zinc oxide to his legs but this has not helped the scaling recently of his left leg. His left leg remains more swollen than his right and has significant keratosis. Progress of Wound: Brenton's ulcer has improved with antibiotic treatment and Fibracol dressing. HIs right lateral LE has developed some open areas as well. His wound culture was positive for ESBL E.coli, Pseudomonas, Staph Epidermidis, and Enterococcus. He has completed antibiotic treatment. His venous doppler showed left gastrocnemious vein DVT. His INR was 3.7 on Friday. His PCP - Dr. Adrian will monitor his INR levels. Dr. Mcleod, his shade cloth finisher, was also contacted regarding anticoagulation and she preferred warfarin over Xarelto or Eliquis with his chronic kidney disease and dialysis. He is feeling well overall and continues with hemodialysis 3 times weekly. He denies fever, chills, erythema, increased drainage or pain, bleeding. - Physical Exam Vital Signs Temp Pulse Resp BP 98.0 F 100 20 H 98/40 L 08/11/20 08:40 08/11/20 08:40 08/10/20 00:45 08/11/20 08:40 General: Alert, Oriented x3, Cooperative, No apparent distress HEENT: Atraumatic, Normocephalic Oral: Moist Mucosa Neck: Supple Abdomen: Soft, Non Tender, Obese Extremities: Edema Skin: Ulcer/ Wound Wound Measurements and Assessment WC - Nurse 1 - General Ulcer Measurement Start: 08/11/20 08:40 Freq: Status: Active Protocol: Activity Type Activity Date Activity User E-Sign Co-Sign Detail Recorded Client Recorded Date Recorded By Document 08/11/20 08:40 KR [id number] 08/11/20 08:47 KR 08/11/20 08:40 Wound Center Nurse 1 [Ulcer Assessment] #19 Left Lateral LE -Current Size (cm) - Length 2.6 -Current Size (cm) - Width 1.5 -Current Size (cm) - Depth 0.1 -Total Square Cm 3.90 -Exudate Amt Small -Exudate Type Serosanguineous -Wound Margin Distinct, Outline Attached -Granulation Amt Large (67-100%) -Granulation Quality Red -Necrosis Amt None Present (0 %) -Texture (Jaylyn-wound Skin Appearance) Assessed, Scarring -Moisture (Jaylyn-wound Skin Appearance Assessed ) -Color (Jaylyn-wound Skin Appearance) No Abnormality, Assessed -Temperature (Jaylyn-wound Skin No Abnormality Appearance) (Pt Warm) -Tenderness on Palpation (Jaylyn-wound No Skin Appearance) -Ulcer Cleansing Rinsed/ Irrigated with Saline -Foul Odor after Cleansing No -Anesthetic Used 4% Lidocaine Solution [Edema Assessment] -Right Calf (cm) 40 -Right Ankle (cm) 30 -Left Calf (cm) 44 -Left Ankle (cm) 32 - Nurse 2 - General Ulcer CM Notes Start: 08/11/20 08:40 Freq: Status: Active Protocol: Activity Type Activity Date Activity User E-Sign Co-Sign Detail Recorded Client Recorded Date Recorded By Document 08/11/20 08:55 MW [id number] 08/11/20 09:06 MW 08/11/20 08:55 Wound Center Nurse 2 [Procedure/Treatment] #22 Right Lateral LE Cluster -Time 09:00 -Correct Patient Yes -Correct Side, Site, Position Yes -Correct Procedure Yes -Procedure Performed Yes -Type of Procedure Debridement -Clinical Debridement Epidermis / Dermis -Tissue Removed Epidermis -Post Debridement (cm) - Length 6.0 -Post Debridement (cm) - Width 6.5 -Post Debridement (cm) - Depth 0.1 -Total Square (Post) (cm) 39.00 -Area of Debridement (cm) - Length 6.0 -Area of Debridement (cm) - Width 6.5 -Total Square (Area) (cm) 39.00 -Tunneling No -Undermining/Tunneling No -Circular Undermining No -Wound/Ulcer Outcome Not Healed -Ulcer Cleansing Rinsed/ Irrigated with Saline -Foul Odor after Cleansing No -Bioengineered Tissue No -Bleeding Controlled with Pressure -Offloading No -Treatment Response Procedure Tolerated Well -Debridement - Open, 1st 20sq cm No #19 Left Lateral LE -Time 08:56 -Correct Patient Yes -Correct Side, Site, Position Yes -Correct Procedure Yes -Type of Procedure Debridement -Clinical Debridement Epidermis / Dermis -Tissue Removed Epidermis -Post Debridement (cm) - Length 2.3 -Post Debridement (cm) - Width 1.2 -Post Debridement (cm) - Depth 0.2 -Total Square (Post) (cm) 2.76 -Area of Debridement (cm) - Length 2.3 -Area of Debridement (cm) - Width 1.2 -Total Square (Area) (cm) 2.76 -Tunneling No -Undermining/Tunneling No -Circular Undermining No -Wound/Ulcer Outcome Not Healed -Ulcer Cleansing Rinsed/ Irrigated with Saline -Foul Odor after Cleansing No -Bioengineered Tissue No -Bleeding Controlled with Pressure -Offloading No -Treatment Response Procedure Tolerated Well -Debridement - Open, 1st 20sq cm Yes [See Physician Procedure note for Specifics] Pain Scale: 0-10 Numeric [Pain] -Is Patient Pain Free? Yes WC - Nurse 3 - General Ulcer D/C NN Start: 08/11/20 08:40 Freq: Status: Active Protocol: Activity Type Activity Date Activity User E-Sign Co-Sign Detail Recorded Client Recorded Date Recorded By Document 08/11/20 09:38 MW [id number] 08/11/20 09:39 MW 08/11/20 09:38 Wound Care Nurse 3 [Wound Dressing] #22 Right Lateral LE Cluster -Ulcer Cleansing Rinsed/ Irrigated with Saline -Foul Odor after Cleansing No -Negative Pressure Wound Therapy N/A -Primary Dressing Applied Aquacel Extra -Primary Dressing Covered/Secured Dry Gauze & with Roll Gauze, Secured with Tape -Other Covering abd pad -Aquacel Extra 1 #19 Left Lateral LE -Ulcer Cleansing Rinsed/ Irrigated with Saline -Foul Odor after Cleansing No -Negative Pressure Wound Therapy N/A -Other Dressing aquacel extra -Primary Dressing Covered/Secured Dry Gauze & with Roll Gauze, Secured with Tape -Other Covering abd pad [Compression Applied] Right -Lotion applied to leg before Yes compression wrap -Compression Wrap Krunal Wrap Left -Lotion applied to leg before Yes compression wrap -Compression Wrap Krunal Wrap [Post Procedure Tolerated] -Treatment Response Procedure Tolerated Well Pain Scale: 0-10 Numeric [Pain] -Is Patient Pain Free? Yes Teaching: Wound Center [Wound Center Education] (Items with an * have Printed Materials Available- Please identify what is given to patient under the Teaching materials given to patient and caregiver Section. Dressing Your Wound -Person Taught Patient -Teaching Method Discussion -Response to teaching Verbalize understanding - Visit Discharge [Visit Discharge Information] -Discharge Condition Stable -Ambulatory Status Ambulatory, Walker -Transportation [facility] transport -Medication Reconcilliation completed No & provided to patient/care provider -Clinical Summary of Care Provided Yes Psych/Mental Status: Normal Affect, Appropriate Debridement Note Post-Debridement Measurements/Treatment - Nurse 2 - General Ulcer CM Notes Start: 08/11/20 08:40 Freq: Status: Active Protocol: Activity Type Activity Date Activity User E-Sign Co-Sign Detail Recorded Client Recorded Date Recorded By Document 08/11/20 08:55 MW [id number] 08/11/20 09:06 MW 08/11/20 08:55 Wound Center Nurse 2 #22 Right Lateral LE Cluster -Time 09:00 -Correct Patient Yes -Correct Side, Site, Position Yes -Correct Procedure Yes -Procedure Performed Yes -Type of Procedure Debridement -Clinical Debridement Epidermis / Dermis -Tissue Removed Epidermis -Post Debridement (cm) - Length 6.0 -Post Debridement (cm) - Width 6.5 -Post Debridement (cm) - Depth 0.1 -Total Square (Post) (cm) 39.00 -Area of Debridement (cm) - Length 6.0 -Area of Debridement (cm) - Width 6.5 -Total Square (Area) (cm) 39.00 -Tunneling No -Undermining/Tunneling No -Circular Undermining No -Wound/Ulcer Outcome Not Healed -Ulcer Cleansing Rinsed/ Irrigated with Saline -Foul Odor after Cleansing No -Bioengineered Tissue No -Bleeding Controlled with Pressure -Offloading No -Treatment Response Procedure Tolerated Well -Debridement - Open, 1st 20sq cm No #19 Left Lateral LE -Time 08:56 -Correct Patient Yes -Correct Side, Site, Position Yes -Correct Procedure Yes -Type of Procedure Debridement -Clinical Debridement Epidermis / Dermis -Tissue Removed Epidermis -Post Debridement (cm) - Length 2.3 -Post Debridement (cm) - Width 1.2 -Post Debridement (cm) - Depth 0.2 -Total Square (Post) (cm) 2.76 -Area of Debridement (cm) - Length 2.3 -Area of Debridement (cm) - Width 1.2 -Total Square (Area) (cm) 2.76 -Tunneling No -Undermining/Tunneling No -Circular Undermining No -Wound/Ulcer Outcome Not Healed -Ulcer Cleansing Rinsed/ Irrigated with Saline -Foul Odor after Cleansing No -Bioengineered Tissue No -Bleeding Controlled with Pressure -Offloading No -Treatment Response Procedure Tolerated Well -Debridement - Open, 1st 20sq cm Yes Pain Scale: 0-10 Numeric Is Patient Pain Free? Yes WC - Nurse 3 - General Ulcer D/C NN Start: 08/11/20 08:40 Freq: Status: Active Protocol: Activity Type Activity Date Activity User E-Sign Co-Sign Detail Recorded Client Recorded Date Recorded By Document 08/11/20 09:38 MW [id number] 08/11/20 09:39 MW 08/11/20 09:38 Wound Care Nurse 3 #22 Right Lateral LE Cluster -Ulcer Cleansing Rinsed/ Irrigated with Saline -Foul Odor after Cleansing No -Negative Pressure Wound Therapy N/A -Primary Dressing Applied Aquacel Extra -Primary Dressing Covered/Secured with Dry Gauze & Roll Gauze, Secured with Tape -Other Covering abd pad -Aquacel Extra 1 #19 Left Lateral LE -Ulcer Cleansing Rinsed/ Irrigated with Saline -Foul Odor after Cleansing No -Negative Pressure Wound Therapy N/A -Other Dressing aquacel extra -Primary Dressing Covered/Secured with Dry Gauze & Roll Gauze, Secured with Tape -Other Covering abd pad Right -Lotion applied to leg before Yes compression wrap -Compression Wrap Krunal Wrap Left -Lotion applied to leg before Yes compression wrap -Compression Wrap Krunal Wrap Treatment Response Procedure Tolerated Well Pain Scale: 0-10 Numeric Is Patient Pain Free? Yes Teaching: Wound Center Dressing Your Wound -Person Taught Patient -Teaching Method Discussion -Response to teaching Verbalize understanding WC - Visit Discharge Discharge Condition Stable Ambulatory Status Ambulatory, Walker Transportation [facility] transport Medication Reconcilliation completed & No provided to patient/care provider Clinical Summary of Care Provided Yes Wound debrided: left lateral LE Laterality: Left Type of Debridement: Selective debridement Anesthesia Used: 4% Lidocaine Solution Depth: Down to and including healthy tissue, in the subcutaneous layer Percentage of wound debrided: 100 Instrument Used: - - gauze Tissue Removed: Yellow slough, devitalized tissue Severity: Fat Layer Exposed Amount of bleeding with debridement: Mild Bleeding Controlled with: Compression and gauze Patient tolerated procedure well - Additional Wound Wound debrided: right lateral LE Laterality: Right Type of Debridement: Selective debridement Anesthesia Used: 4% Lidocaine Solution Depth: Down to and including healthy tissue, in the subcutaneous layer Percentage of wound debrided: 100 Instrument Used: - - gauze Tissue Removed: Yellow slough, devitalized tissue Severity: Fat Layer Exposed Amount of bleeding with debridement: Mild Bleeding Controlled with: Compression and gauze Patient tolerated procedure: Patient tolerated procedure well Assessment/Plan Active Problems (Last Reviewed 08/09/20 @ 13:27 by Darlene Rose) Deep vein thrombosis (DVT) of left lower extremity (Chronic) Ulcer of left lower extremity with fat layer exposed (Chronic) Ulcer of right lower extremity with fat layer exposed (Chronic) HERNÁN (obstructive sleep apnea) (Chronic) Obesity (Chronic) Stage 3 severe COPD by GOLD classification (Chronic) Chronic kidney disease with end stage 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 (Chronic) Type 2 diabetes mellitus (Chronic) Assessment: Recurrent left lower extremity ulcer. Chronic lymphedema. Morbid obesity. Plan: Mr. Russell's legs have lymphedema and chronic stasis dermatitis with recurrent ulcer of his left lateral lower leg. Right lateral LE debrided as well today. Will dress his ulcers with Aquacel Extra M,W,F. His petechial lesions are healing. He has increased edema today bilateral. He is on warfarin for DVT left LE. Dr. Adrian will monitor his INR/warfarin therapy. Given his erythema and increased edema. His recent labs have been reviewed. Encouraged adequate protein intake. Vascular testing ordered due to concerns for underlying siginificant PAD given his DM and heart disease and h/o smoking. V enous studies showed DVT. Arterial studies postponed for 1 month due to DVT. He was advised to use zinc oxide or triamcinolone cream to his legs once daily to help with his dermatitis. Will plan on returning to maintenance control of his edema with KRUNAL wraps. He was advised to use his compression pumps twice daily and be vigilant with elevating his legs to avoid worsening of his edema which causes the cellulitis and ulcers. Call with worsening pain, drainage or odor. F/U in 1 week.
[2020-08-25 08:02] VITALS: BP 80/54; PULSE 102; RESP 18; TEMP 36.6; BMI 37.3
--- NOTE | 2020-08-25 14:37 | PCM.WC.PN ---
(1) Deep vein thrombosis (DVT) of left lower extremity Status: Chronic Qualifiers: Affected thrombotic vein of extremity: calf muscle vein Chronicity: acute Qualified Code(s): I82.462 - Acute embolism and thrombosis of left calf muscular vein Code(s): I82.402 - Acute embolism and thrombosis of unspecified deep veins of left lower extremity (2) Ulcer of left lower extremity with fat layer exposed Status: Chronic Code(s): L97.922 - Non-pressure chronic ulcer of unspecified part of left lower leg with fat layer exposed (3) Ulcer of right lower extremity with fat layer exposed Status: Chronic Code(s): L97.912 - Non-pressure chronic ulcer of unspecified part of right lower leg with fat layer exposed (4) HERNÁN (obstructive sleep apnea) Status: Chronic Code(s): G47.33 - Obstructive sleep apnea (adult) (pediatric) (5) Obesity Status: Chronic Qualifiers: Obesity type: unspecified obesity type Obesity classification: adult class 2 (BMI 35 - 39.9) Serious obesity comorbidity presence: with serious comorbidity Body mass index: BMI 37.0-37.9 Qualified Code(s): E66.01 - Morbid (severe) obesity due to excess calories; Z68.37 - Body mass index [BMI] 37.0-37.9, adult Code(s): E66.9 - Obesity, unspecified (6) Stage 3 severe COPD by GOLD classification Status: Chronic Code(s): J44.9 - Chronic obstructive pulmonary disease, unspecified (7) Chronic kidney disease with end stage 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 Status: Chronic Code(s): N18.6 - End stage renal disease; Z99.2 - Dependence on renal dialysis (8) Type 2 diabetes mellitus Status: Chronic Qualifiers: Diabetes mellitus long term care pharmacist insulin use: with fpc use Diabetes mellitus complication status: with kidney complications Diabetes mellitus complication detail: with chronic kidney disease Chronic kidney disease stage: on chronic dialysis Qualified Code(s): E11.22 - Type 2 diabetes mellitus with diabetic chronic kidney disease; N18.6 - End stage renal disease; Z79.4 - care home (current) use of insulin; Z99.2 - Dependence on renal dialysis Code(s): E11.9 - Type 2 diabetes mellitus without complications Type of Wound Date of Service: 08/25/20 Chief Complaint: left lower extremity ulcer, cellulitis and edema b/l LE History of Wound: Mr. Russell is a 70 yo gentelman well-known to the wound center who presents due to new (recurrent) left lower extremity ulcer. Said to have started about a week ago. He initially noted increased fluid drainage and increased swelling and then erythema. His HH nurse was concerned regarding the appearance of the left lateral leg and it began draining more and his dialysis nurses were also concerned. He also has petechial appearing spots on his toes, and feet b/l but none of his upper extremities or more proximally. Denies chills, fever or otherwise feeling of unwell. He is on chronic dialysis and uses compression pumps to manage his edema. He recently underwent surgery for fistula placement for dialysis. He reports that his edema has been better than it has been in the past but has had scaling and drainage to his skin which had resolved when he was using UNNA boots when he was here last. He applies Eucerin, zinc oxide to his legs but this has not helped the scaling recently of his left leg. His left leg remains more swollen than his right and has significant keratosis. Progress of Wound: Brenton's ulcer has improved with antibiotic treatment and Fibracol dressing. His right lateral LE has healed. His wound culture was positive for ESBL E.coli, Pseudomonas, Staph Epidermidis, and Enterococcus. He has completed antibiotic treatment. His venous doppler showed left gastrocnemious vein DVT. His INR was 3.7 on Friday. His PCP - Dr. Adrian will monitor his INR levels. Dr. Mcleod, his it software engineer, was also contacted regarding anticoagulation and she preferred warfarin over Xarelto or Eliquis with his chronic kidney disease and dialysis. He is feeling well overall and continues with hemodialysis 3 times weekly. He denies fever, chills, erythema, increased drainage or pain, bleeding. - Physical Exam Vital Signs Temp Pulse Resp BP 98 F 102 H 18 80/54 L 08/25/20 08:02 08/25/20 08:02 08/25/20 08:02 08/25/20 08:02 General: Alert, Oriented x3, Cooperative, No apparent distress HEENT: Atraumatic, Normocephalic Oral: Moist Mucosa Neck: Supple Abdomen: Soft, Non Tender, Obese Extremities: Edema Skin: Ulcer/ Wound Wound Measurements and Assessment WC - Nurse 1 - General Ulcer Measurement Start: 08/11/20 08:40 Freq: Status: Active Protocol: Activity Type Activity Date Activity User E-Sign Co-Sign Detail Recorded Client Recorded Date Recorded By Document 08/25/20 08:02 ISMAEL [id number] 08/25/20 08:09 ISMAEL 08/25/20 08:02 Wound Center Nurse 1 [Ulcer Assessment] #22 Right Lateral LE Cluster -Combined with other wound No -Current Size (cm) - Length 0.1 -Current Size (cm) - Width 0.1 -Current Size (cm) - Depth 0.1 -Total Square Cm 0.01 -Tunneling No -Undermining/Tunneling No -Circular Undermining No -Exudate Amt None Present -Wound Margin Distinct, Outline Attached -Granulation Amt Large (67-100%) -Granulation Quality Triplett -Slough/Fibrin No -Necrosis Amt None Present (0 %) -Structure Exposed N/A -Texture (Jaylyn-wound Skin Appearance) Assessed -Moisture (Jaylyn-wound Skin Appearance Dry/Scaly ) -Color (Jaylyn-wound Skin Appearance) Assessed -Temperature (Jaylyn-wound Skin No Abnormality Appearance) (Pt Warm) -Tenderness on Palpation (Jaylyn-wound No Skin Appearance) -Ulcer Cleansing Rinsed/ Irrigated with Saline -Foul Odor after Cleansing No #19 Left Lateral LE -Current Size (cm) - Length 4.5 -Current Size (cm) - Width 3 -Current Size (cm) - Depth 0.2 -Total Square Cm 13.5 -Tunneling No -Undermining/Tunneling No -Circular Undermining No -Exudate Amt Medium -Exudate Type Serosanguineous -Wound Margin Distinct, Outline Attached -Granulation Amt Medium (34-66%) -Granulation Quality Triplett -Slough/Fibrin Yes -Necrosis Amt Medium (34-66%) -Necrotic Tissue Type Adherent Slough -Structure Exposed N/A -Texture (Jaylyn-wound Skin Appearance) Assessed -Moisture (Jaylyn-wound Skin Appearance Dry/Scaly ) -Color (Jaylyn-wound Skin Appearance) Assessed -Temperature (Jaylyn-wound Skin No Abnormality Appearance) (Pt Warm) -Tenderness on Palpation (Jaylyn-wound No Skin Appearance) -Ulcer Cleansing Wound Cleanser -Foul Odor after Cleansing No -Anesthetic Used 4% Lidocaine Solution [Edema Assessment] -Lower Limb Edema Present Yes -Right Calf (cm) 42 -Right Ankle (cm) 27.5 -Left Calf (cm) 40 -Left Ankle (cm) 30.2 WC - Nurse 2 - General Ulcer CM Notes Start: 08/11/20 08:40 Freq: Status: Active Protocol: Activity Type Activity Date Activity User E-Sign Co-Sign Detail Recorded Client Recorded Date Recorded By Document 08/25/20 08:17 MW [id number] 08/25/20 08:25 MW 08/25/20 08:17 Wound Center Nurse 2 [Procedure/Treatment] #22 Right Lateral LE Cluster -Time 08:18 -Correct Patient Yes -Correct Side, Site, Position Yes -Correct Procedure Yes -Procedure Performed No -Post Debridement (cm) - Length 0 -Post Debridement (cm) - Width 0 -Post Debridement (cm) - Depth 0 -Total Square (Post) (cm) 0 -Wound/Ulcer Outcome Healed- Epithelialized #19 Left Lateral LE -Time 08:20 -Correct Patient Yes -Correct Side, Site, Position Yes -Correct Procedure Yes -Procedure Performed Yes -Type of Procedure Debridement -Clinical Debridement Subcutaneous -Tissue Removed Subcutaneous -Post Debridement (cm) - Length 1.0 -Post Debridement (cm) - Width 0.5 -Post Debridement (cm) - Depth 0.2 -Total Square (Post) (cm) 0.50 -Area of Debridement (cm) - Length 1.0 -Area of Debridement (cm) - Width 0.5 -Total Square (Area) (cm) 0.50 -Tunneling No -Undermining/Tunneling No -Circular Undermining No -Wound/Ulcer Outcome Not Healed -Ulcer Cleansing Rinsed/ Irrigated with Saline -Foul Odor after Cleansing No -Bioengineered Tissue No -Bleeding Controlled with Pressure -Offloading No -Treatment Response Procedure Tolerated Well -Debridement - Subq, 1st 20sq cm Yes [See Physician Procedure note for Specifics] Pain Scale: 0-10 Numeric [Pain] -Is Patient Pain Free? Yes MAXX - Nurse 3 - General Ulcer D/C NN Start: 08/11/20 08:40 Freq: Status: Active Protocol: Activity Type Activity Date Activity User E-Sign Co-Sign Detail Recorded Client Recorded Date Recorded By Document 08/25/20 08:52 DL [id number] 08/25/20 08:57 DL 08/25/20 08:52 Wound Care Nurse 3 [Wound Dressing] #19 Left Lateral LE -Ulcer Cleansing Rinsed/ Irrigated with Saline -Foul Odor after Cleansing No -Primary Dressing Applied Aquacel Extra -Primary Dressing Covered/Secured Dry Gauze & with Roll Gauze -Other Covering KRUNAL/Kerlix -Aquacel Extra 1 [Compression Applied] Right -Lotion applied to leg before Yes compression wrap [Post Procedure Tolerated] -Treatment Response Procedure Tolerated Well Pain Scale: 0-10 Numeric [Pain] -Is Patient Pain Free? Yes - Visit Discharge [Visit Discharge Information] -Discharge Condition Stable -Ambulatory Status Ambulatory, Walker -Notes: Betadine between toes to kamilah feet/gauze Psych/Mental Status: Normal Affect, Appropriate Debridement Note Post-Debridement Measurements/Treatment - Nurse 2 - General Ulcer CM Notes Start: 08/11/20 08:40 Freq: Status: Active Protocol: Activity Type Activity Date Activity User E-Sign Co-Sign Detail Recorded Client Recorded Date Recorded By Document 08/11/20 08:55 MW [id number] 08/11/20 09:06 MW Document 08/25/20 08:17 MW [id number] 08/25/20 08:25 MW 08/11/20 08/25/20 08:55 08:17 Wound Center Nurse 2 #22 Right Lateral LE Cluster -Time 09:00 08:18 -Correct Patient Yes Yes -Correct Side, Site, Position Yes Yes -Correct Procedure Yes Yes -Procedure Performed Yes No -Type of Procedure Debridement -Clinical Debridement Epidermis / Dermis -Tissue Removed Epidermis -Post Debridement (cm) - Length 6.0 0 -Post Debridement (cm) - Width 6.5 0 -Post Debridement (cm) - Depth 0.1 0 -Total Square (Post) (cm) 39.00 0 -Area of Debridement (cm) - Length 6.0 -Area of Debridement (cm) - Width 6.5 -Total Square (Area) (cm) 39.00 -Tunneling No -Undermining/Tunneling No -Circular Undermining No -Wound/Ulcer Outcome Not Healed Healed- Epithelialized -Ulcer Cleansing Rinsed/ Irrigated with Saline -Foul Odor after Cleansing No -Bioengineered Tissue No -Bleeding Controlled with Pressure -Offloading No -Treatment Response Procedure Tolerated Well -Debridement - Open, 1st 20sq cm No #19 Left Lateral LE -Time 08:56 08:20 -Correct Patient Yes Yes -Correct Side, Site, Position Yes Yes -Correct Procedure Yes Yes -Procedure Performed Yes -Type of Procedure Debridement Debridement -Clinical Debridement Epidermis / Subcutaneous Dermis -Tissue Removed Epidermis Subcutaneous -Post Debridement (cm) - Length 2.3 1.0 -Post Debridement (cm) - Width 1.2 0.5 -Post Debridement (cm) - Depth 0.2 0.2 -Total Square (Post) (cm) 2.76 0.50 -Area of Debridement (cm) - Length 2.3 1.0 -Area of Debridement (cm) - Width 1.2 0.5 -Total Square (Area) (cm) 2.76 0.50 -Tunneling No No -Undermining/Tunneling No No -Circular Undermining No No -Wound/Ulcer Outcome Not Healed Not Healed -Ulcer Cleansing Rinsed/ Rinsed/ Irrigated with Irrigated with Saline Saline -Foul Odor after Cleansing No No -Bioengineered Tissue No No -Bleeding Controlled with Pressure Pressure -Offloading No No -Treatment Response Procedure Procedure Tolerated Well Tolerated Well -Debridement - Open, 1st 20sq cm Yes -Debridement, Open, ea addt'l 20sq cm 2 or part thereof -Debridement - Subq, 1st 20sq cm Yes Pain Scale: 0-10 Numeric Is Patient Pain Free? Yes Yes WC - Nurse 3 - General Ulcer D/C NN Start: 08/11/20 08:40 Freq: Status: Active Protocol: Activity Type Activity Date Activity User E-Sign Co-Sign Detail Recorded Client Recorded Date Recorded By Document 08/11/20 09:38 MW [id number] 08/11/20 09:39 MW Document 08/25/20 08:52 DL [id number] 08/25/20 08:57 DL 08/11/20 08/25/20 09:38 08:52 Wound Care Nurse 3 #22 Right Lateral LE Cluster -Ulcer Cleansing Rinsed/ Irrigated with Saline -Foul Odor after Cleansing No -Negative Pressure Wound Therapy N/A -Primary Dressing Applied Aquacel Extra -Primary Dressing Covered/Secured with Dry Gauze & Roll Gauze, Secured with Tape -Other Covering abd pad -Aquacel Extra 1 #19 Left Lateral LE -Ulcer Cleansing Rinsed/ Rinsed/ Irrigated with Irrigated with Saline Saline -Foul Odor after Cleansing No No -Negative Pressure Wound Therapy N/A -Primary Dressing Applied Aquacel Extra -Other Dressing aquacel extra -Primary Dressing Covered/Secured with Dry Gauze & Dry Gauze & Roll Gauze, Roll Gauze Secured with Tape -Other Covering abd pad KRUNAL/Kerlix -Aquacel Extra 1 Right -Lotion applied to leg before Yes Yes compression wrap -Compression Wrap Krunal Wrap Left -Lotion applied to leg before Yes compression wrap -Compression Wrap Krunal Wrap Treatment Response Procedure Procedure Tolerated Well Tolerated Well Pain Scale: 0-10 Numeric Is Patient Pain Free? Yes Yes Teaching: Wound Center Dressing Your Wound -Person Taught Patient -Teaching Method Discussion -Response to teaching Verbalize understanding WC - Visit Discharge Discharge Condition Stable Stable Ambulatory Status Ambulatory, Ambulatory, Walker Walker Transportation [facility] transport Medication Reconcilliation completed & No provided to patient/care provider Clinical Summary of Care Provided Yes Notes: Betadine between toes to kamilah feet/gauze Wound debrided: Left lateral LE Laterality: Left Type of Debridement: Excisional debridement Anesthesia Used: 4% Lidocaine Solution, 5% Lidocaine Gel Depth: Down to and including healthy tissue, in the subcutaneous layer Percentage of wound debrided: 100 Instrument Used: 5mm curette Tissue Removed: Yellow slough, devitalized tissue Severity: Fat Layer Exposed Amount of bleeding with debridement: Mild Bleeding Controlled with: Compression and gauze Patient tolerated procedure well Assessment/Plan Active Problems (Last Reviewed 08/09/20 @ 13:27 by Darlene Rose) Deep vein thrombosis (DVT) of left lower extremity (Chronic) Ulcer of left lower extremity with fat layer exposed (Chronic) Ulcer of right lower extremity with fat layer exposed (Chronic) HERNÁN (obstructive sleep apnea) (Chronic) Obesity (Chronic) Stage 3 severe COPD by GOLD classification (Chronic) Chronic kidney disease with end stage 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 (Chronic) Type 2 diabetes mellitus (Chronic) Assessment: Recurrent left lower extremity ulcer. Chronic lymphedema. Morbid obesity. Plan: Mr. Russell's legs have lymphedema and chronic stasis dermatitis with recurrent ulcer of his left lateral lower leg. His ulcers of hi [facility] leg are healed. Left lateral LE ulcer is improving. Will dress his ulcers with Aquacel Extra M,W,F. His petechial lesions are healing. He has increased edema today bilateral. He is on warfarin for DVT left LE. Dr. Adrian will monitor his INR/warfarin therapy. Given his erythema and increased edema. His recent labs have been reviewed. Encouraged adequate protein intake. Vascular testing ordered due to concerns for underlying siginificant PAD given his DM and heart disease and h/o smoking. Venous studies showed DVT. Arterial studies postponed for 1 month due to DVT. He was advised to use zinc oxide or triamcinolone cream to his legs once daily to help with his dermatitis. Will plan on returning to maintenance control of his edema with KRUNAL wraps. He was advised to use his compression pumps twice daily and be vigilant with elevating his legs to avoid worsening of his edema which causes the cellulitis and ulcers. Call with worsening pain, drainage or odor. F/U in 1 week.
[2020-09-01 08:24] VITALS: BP 105/52; PULSE 99; RESP 18; TEMP 35.9; BMI 37.3
--- NOTE | 2020-09-01 14:38 | PN.PCM_ITS ---
(1) Deep vein thrombosis (DVT) of left lower extremity Status: Chronic Qualifiers: Affected thrombotic vein of extremity: calf muscle vein Chronicity: acute Qualified Code(s): I82.462 - Acute embolism and thrombosis of left calf muscular vein Code(s): I82.402 - Acute embolism and thrombosis of unspecified deep veins of left lower extremity (2) Ulcer of left lower extremity with fat layer exposed Status: Chronic Code(s): L97.922 - Non-pressure chronic ulcer of unspecified part of left lower leg with fat layer exposed (3) Ulcer of right lower extremity with fat layer exposed Status: Chronic Code(s): L97.912 - Non-pressure chronic ulcer of unspecified part of right lower leg with fat layer exposed (4) HERNÁN (obstructive sleep apnea) Status: Chronic Code(s): G47.33 - Obstructive sleep apnea (adult) (pediatric) (5) Obesity Status: Chronic Qualifiers: Obesity type: unspecified obesity type Obesity classification: adult class 2 (BMI 35 - 39.9) Serious obesity comorbidity presence: with serious comorbidity Body mass index: BMI 37.0-37.9 Qualified Code(s): E66.01 - Morbid (severe) obesity due to excess calories; Z68.37 - Body mass index [BMI] 37.0-37.9, adult Code(s): E66.9 - Obesity, unspecified (6) Stage 3 severe COPD by GOLD classification Status: Chronic Code(s): J44.9 - Chronic obstructive pulmonary disease, unspecified (7) Chronic kidney disease with end stage 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 Status: Chronic Code(s): N18.6 - End stage renal disease; Z99.2 - Dependence on renal dialysis (8) Type 2 diabetes mellitus Status: Chronic Qualifiers: 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 insulin use: with halfway use Diabetes mellitus complication status: with kidney complications Diabetes mellitus complication detail: with chronic kidney disease Chronic kidney disease stage: on chronic dialysis Qualified Code(s): E11.22 - Type 2 diabetes mellitus with diabetic chronic kidney disease; N18.6 - End stage renal disease; Z79.4 - USP (current) use of insulin; Z99.2 - Dependence on renal dialysis Code(s): E11.9 - Type 2 diabetes mellitus without complications Type of Wound Date of Service: 09/01/20 Chief Complaint: left lower extremity ulcer, cellulitis and edema b/l LE History of Wound: Mr. Russell is a 70 yo gentelman well-known to the wound center who presents due to new (recurrent) left lower extremity ulcer. Said to have started about a week ago. He initially noted increased fluid drainage and increased swelling and then erythema. His HH nurse was concerned regarding the appearance of the left lateral leg and it began draining more and his dialysis nurses were also concerned. He also has petechial appearing spots on his toes, and feet b/l but none of his upper extremities or more proximally. Denies chills, fever or otherwise feeling of unwell. He is on chronic dialysis and uses compression pumps to manage his edema. He recently underwent surgery for fistula placement for dialysis. He reports that his edema has been better than it has been in the past but has had scaling and drainage to his skin which had resolved when he was using UNNA boots when he was here last. He applies Eucerin, zinc oxide to his legs but this has not helped the scaling recently of his left leg. His left leg remains more swollen than his right and has significant keratosis. Progress of Wound: Brenton's ulcer has improved with Fibracol dressing. His right lateral LE remains healed. His venous doppler on 07/10/2020 showed left gastrocnemious vein DVT. His INR was 3.7 on Friday. His PCP - Dr. Adrian will monitor his INR levels. Dr. Mcleod, his hydro excavation operator, was also contacted regarding anticoagulation and she preferred warfarin over Xarelto or Eliquis with his chronic kidney disease and dialysis. He is feeling well overall and continues with hemodialysis 3 times weekly. He denies fever, chills, erythema, increased drainage or pain, bleeding. - Physical Exam Vital Signs Temp Pulse Resp BP 96.7 F L 99 18 105/52 L 09/01/20 08:24 09/01/20 08:24 09/01/20 08:24 09/01/20 08:24 General: Alert, Oriented x3, Cooperative, No apparent distress HEENT: Atraumatic, Normocephalic Oral: Moist Mucosa Neck: Supple Lungs: Clear to auscultation, Normal air movement Cardiovascular: Regular rate, Regular Rhythm Abdomen: Soft, Non Tender, Obese Skin: Ulcer/ Wound Wound Measurements and Assessment WC - Nurse 1 - General Ulcer Measurement Start: 08/11/20 08:40 Freq: Status: Active Protocol: Activity Type Activity Date Activity User E-Sign Co-Sign Detail Recorded Client Recorded Date Recorded By Document 09/01/20 08:24 PL [id number] 09/01/20 08:32 PL 09/01/20 08:24 Wound Center Nurse 1 [Ulcer Assessment] #19 Left Lateral LE -Combined with other wound No -Current Size (cm) - Length 0.5 -Current Size (cm) - Width 0.5 -Current Size (cm) - Depth 0.1 -Total Square Cm 0.25 -Photo Taken No -Epithelialization None Present -Exudate Amt None Present -Granulation Amt None Present (0 %) -Slough/Fibrin Yes -Necrosis Amt Large (67-100%) -Necrotic Tissue Type Eschar -Texture (Jaylyn-wound Skin Appearance) No Abnormality -Moisture (Jaylyn-wound Skin Appearance No Abnormality ) -Color (Jaylyn-wound Skin Appearance) Erythema -Temperature (Jaylyn-wound Skin No Abnormality Appearance) (Pt Warm) -Ulcer Cleansing Soap And Water -Foul Odor after Cleansing No -Anesthetic Used 5% Lidocaine Gel WC - Nurse 2 - General Ulcer CM Notes Start: 08/11/20 08:40 Freq: Status: Active Protocol: Activity Type Activity Date Activity User E-Sign Co-Sign Detail Recorded Client Recorded Date Recorded By Document 09/01/20 09:18 MW [id number] 09/01/20 09:22 MW 09/01/20 09:18 Wound Center Nurse 2 [Procedure/Treatment] -Time 09:18 -Correct Patient Yes -Correct Side, Site, Position Yes -Correct Procedure Yes -Procedure Performed Yes -Type of Procedure Debridement -Clinical Debridement Epidermis / Dermis -Tissue Removed Epidermis -Post Debridement (cm) - Length 2.0 -Post Debridement (cm) - Width 1.2 -Post Debridement (cm) - Depth 0.3 -Total Square (Post) (cm) 2.40 -Area of Debridement (cm) - Length 2.0 -Area of Debridement (cm) - Width 1.2 -Total Square (Area) (cm) 2.40 -Tunneling No -Undermining/Tunneling No -Circular Undermining No -Wound/Ulcer Outcome Not Healed -Ulcer Cleansing Rinsed/ Irrigated with Saline -Foul Odor after Cleansing No -Bioengineered Tissue No -Bleeding Controlled with Pressure -Offloading No -Treatment Response Procedure Tolerated Well -Debridement - Open, 1st 20sq cm Yes [See Physician Procedure note for Specifics] Pain Scale: 0-10 Numeric [Pain] -Is Patient Pain Free? Yes - Nurse 3 - General Ulcer D/C NN Start: 08/11/20 08:40 Freq: Status: Active Protocol: Activity Type Activity Date Activity User E-Sign Co-Sign Detail Recorded Client Recorded Date Recorded By Document 09/01/20 09:43 RB [id number] 09/01/20 09:44 RB 09/01/20 09:43 Wound Care Nurse 3 [Wound Dressing] #19 Left Lateral LE -Ulcer Cleansing Rinsed/ Irrigated with Saline -Primary Dressing Applied Aquacel Extra -Other Dressing abd -Primary Dressing Covered/Secured Dry Gauze,Dry with Gauze & Roll Gauze,Secured with Tape -Aquacel Extra 1 [Compression Applied] Right -Other krunal Left -Other krunal [Post Procedure Tolerated] -Treatment Response Procedure Tolerated Well Pain Scale: 0-10 Numeric [Pain] -Is Patient Pain Free? Yes - Visit Discharge [Visit Discharge Information] -Discharge Condition Stable -Ambulatory Status Ambulatory, Walker -Transportation Private Auto -Medication Reconcilliation completed No & provided to patient/care provider -Clinical Summary of Care Provided Yes Psych/Mental Status: Normal Affect, Appropriate Debridement Note Post-Debridement Measurements/Treatment - Nurse 2 - General Ulcer CM Notes Start: 08/11/20 08:40 Freq: Status: Active Protocol: Activity Type Activity Date Activity User E-Sign Co-Sign Detail Recorded Client Recorded Date Recorded By Document 08/11/20 08:55 MW [id number] 08/11/20 09:06 MW Document 08/25/20 08:17 MW [id number] 08/25/20 08:25 MW Document 09/01/20 09:18 MW [id number] 09/01/20 09:22 MW 08/11/20 08/25/20 09/01/20 08:55 08:17 09:18 Wound Center Nurse 2 #22 Right Lateral LE Cluster -Time 09:00 08:18 -Correct Patient Yes Yes -Correct Side, Site, Position Yes Yes -Correct Procedure Yes Yes -Procedure Performed Yes No -Type of Procedure Debridement -Clinical Debridement Epidermis / Dermis -Tissue Removed Epidermis -Post Debridement (cm) - Length 6.0 0 -Post Debridement (cm) - Width 6.5 0 -Post Debridement (cm) - Depth 0.1 0 -Total Square (Post) (cm) 39.00 0 -Area of Debridement (cm) - Length 6.0 -Area of Debridement (cm) - Width 6.5 -Total Square (Area) (cm) 39.00 -Tunneling No -Undermining/Tunneling No -Circular Undermining No -Wound/Ulcer Outcome Not Healed Healed- Epithelialized -Ulcer Cleansing Rinsed/ Irrigated with Saline -Foul Odor after Cleansing No -Bioengineered Tissue No -Bleeding Controlled with Pressure -Offloading No -Treatment Response Procedure Tolerated Well -Debridement - Open, 1st 20sq cm No #19 Left Lateral LE -Time 08:56 08:20 09:18 -Correct Patient Yes Yes Yes -Correct Side, Site, Position Yes Yes Yes -Correct Procedure Yes Yes Yes -Procedure Performed Yes Yes -Type of Procedure Debridement Debridement Debridement -Clinical Debridement Epidermis / Subcutaneous Epidermis / Dermis Dermis -Tissue Removed Epidermis Subcutaneous Epidermis -Post Debridement (cm) - Length 2.3 1.0 2.0 -Post Debridement (cm) - Width 1.2 0.5 1.2 -Post Debridement (cm) - Depth 0.2 0.2 0.3 -Total Square (Post) (cm) 2.76 0.50 2.40 -Area of Debridement (cm) - Length 2.3 1.0 2.0 -Area of Debridement (cm) - Width 1.2 0.5 1.2 -Total Square (Area) (cm) 2.76 0.50 2.40 -Tunneling No No No -Undermining/Tunneling No No No -Circular Undermining No No No -Wound/Ulcer Outcome Not Healed Not Healed Not Healed -Ulcer Cleansing Rinsed/ Rinsed/ Rinsed/ Irrigated with Irrigated with Irrigated with Saline Saline Saline -Foul Odor after Cleansing No No No -Bioengineered Tissue No No No -Bleeding Controlled with Pressure Pressure Pressure -Offloading No No No -Treatment Response Procedure Procedure Procedure Tolerated Well Tolerated Well Tolerated Well -Debridement - Open, 1st 20sq cm Yes Yes -Debridement, Open, ea addt'l 20sq cm 2 or part thereof -Debridement - Subq, 1st 20sq cm Yes Pain Scale: 0-10 Numeric Is Patient Pain Free? Yes Yes Yes WC - Nurse 3 - General Ulcer D/C NN Start: 08/11/20 08:40 Freq: Status: Active Protocol: Activity Type Activity Date Activity User E-Sign Co-Sign Detail Recorded Client Recorded Date Recorded By Document 08/11/20 09:38 MW [id number] 08/11/20 09:39 MW Document 08/25/20 08:52 DL [id number] 08/25/20 08:57 DL Document 09/01/20 09:43 RB [id number] 09/01/20 09:44 RB 08/11/20 08/25/20 09/01/20 09:38 08:52 09:43 Wound Care Nurse 3 #22 Right Lateral LE Cluster -Ulcer Cleansing Rinsed/ Irrigated with Saline -Foul Odor after Cleansing No -Negative Pressure Wound Therapy N/A -Primary Dressing Applied Aquacel Extra -Primary Dressing Covered/Secured with Dry Gauze & Roll Gauze, Secured with Tape -Other Covering abd pad -Aquacel Extra 1 #19 Left Lateral LE -Ulcer Cleansing Rinsed/ Rinsed/ Rinsed/ Irrigated with Irrigated with Irrigated with Saline Saline Saline -Foul Odor after Cleansing No No -Negative Pressure Wound Therapy N/A -Primary Dressing Applied Aquacel Extra Aquacel Extra -Other Dressing aquacel extra abd -Primary Dressing Covered/Secured with Dry Gauze & Dry Gauze & Dry Gauze,Dry Roll Gauze, Roll Gauze Gauze & Roll Secured with Gauze,Secured Tape with Tape -Other Covering abd pad KRUNAL/Kerlix -Aquacel Extra 1 1 Right -Lotion applied to leg before Yes Yes compression wrap -Compression Wrap Krunal Wrap -Other krunal Left -Lotion applied to leg before Yes compression wrap -Compression Wrap Krunal Wrap -Other krunal Treatment Response Procedure Procedure Procedure Tolerated Well Tolerated Well Tolerated Well Pain Scale: 0-10 Numeric Is Patient Pain Free? Yes Yes Yes Teaching: Wound Center Dressing Your Wound -Person Taught Patient -Teaching Method Discussion -Response to teaching Verbalize understanding WC - Visit Discharge Discharge Condition Stable Stable Stable Ambulatory Status Ambulatory, Ambulatory, Ambulatory, Walker Walker Walker Transportation [facility] transport Private Auto Medication Reconcilliation completed & No No provided to patient/care provider Clinical Summary of Care Provided Yes Yes Notes: Betadine between toes to kamilah feet/gauze Wound debrided: Left lateral LE Laterality: Left Type of Debridement: Excisional debridement Anesthesia Used: 4% Lidocaine Solution, 5% Lidocaine Gel Depth: Down to and including healthy tissue, in the subcutaneous layer Percentage of wound debrided: 100 Instrument Used: 3mm curette Tissue Removed: yellow slough, devitalized tissue Severity: Fat Layer Exposed Amount of bleeding with debridement: Mild Bleeding Controlled with: Compression and gauze Patient tolerated procedure well Assessment/Plan Active Problems (Last Reviewed 08/30/20 @ 08:15 by Yajaira Farrell) Deep vein thrombosis (DVT) of left lower extremity (Chronic) Ulcer of left lower extremity with fat layer exposed (Chronic) Ulcer of right lower extremity with fat layer exposed (Chronic) HERNÁN (obstructive sleep apnea) (Chronic) Obesity (Chronic) Stage 3 severe COPD by GOLD classification (Chronic) Chronic kidney disease with end stage 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 (Chronic) Type 2 diabetes mellitus (Chronic) Assessment: Recurrent left lower extremity ulcer. Chronic lymphedema. Morbid obesity. Plan: Mr. Russell'lito legs have lymphedema and chronic stasis dermatitis with recurrent ulcer of his left lateral lower leg. His ulcers of his right leg remained healed. Left lateral LE ulcer is improving. Will dress his ulcers with Aquacel Extra M,W,F. His petechial lesions are healing. He has increased edema today bilateral. He is on warfarin for DVT left LE. Dr. Adrian will monitor his INR/warfarin therapy. Given his erythema and increased edema. His recent labs have been reviewed. Encouraged adequate protein intake. Vascular testing ordered due to concerns for underlying siginificant PAD given his DM and heart disease and h/o smoking. Venous studies showed DVT. Arterial studies postponed for 1 month due to DVT. He was advised to use zinc oxide or triamcinolone cream to his legs once daily to help with his dermatitis. Will plan on returning to maintenance control of his edema with KRUNAL wraps. He was advised to use his compression pumps twice daily and be vigilant with elevating his legs to avoid worsening of his edema which causes the cellulitis and ulcers. Call with worsening pain, drainage or odor. F/U in 1 week.
== END 2020-09-08 23:59 ==
LOC: WC 08:30
PROVIDERS: PCP Family Medicine; Referring Provider Family Medicine; Visit Provider Family Medicine
DX: E11.622 Type 2 diabetes mellitus with other skin ulcer (principal); E11.22 Type 2 diabetes mellitus with diabetic chronic kidney disease; N18.6 End stage renal disease; Z99.2 Dependence on renal dialysis; J44.9 Chronic obstructive pulmonary disease, unspecified; E66.01 Morbid (severe) obesity due to excess calories; Z68.37 Body mass index [BMI] 37.0-37.9, adult; G47.33 Obstructive sleep apnea (adult) (pediatric); L97.822 Non-pressure chronic ulcer of other part of left lower leg with fat layer exposed; L97.812 Non-pressure chronic ulcer of other part of right lower leg with fat layer exposed; R23.3 Spontaneous ecchymoses; I89.0 Lymphedema, not elsewhere classified; Z86.718 Personal history of other venous thrombosis and embolism; Z79.01 Long term (current) use of anticoagulants
CPT/HCPCS: 11042; 97597; 97598

== ENCOUNTER → 2020-09-25 08:37 | Outpatient (CLI) | payer MEDICARE, OTHER, SELFPAY ==
[2020-09-06 16:11] VITALS: BMI 37.0
[2020-09-15 08:40] VITALS: BMI 37.0
--- NOTE | 2020-09-25 08:39 | ECHOCS_ITS ---
Reason For Study: MURMUR Procedure This was a 2D Doppler, Color Flow transthoracic echocardiogram. The study was technically difficult. Due to body habitus. Contrast injection was performed. Exam performed in department. Left Ventricle Mild concentric left ventricular hypertrophy. Based upon the 2D echocardiographic and contrast enhanced images obtained there appears to be grossly normal left ventricular size, wall motion, and systolic function. The estimated ejection fraction is 55 %. There is evidence of diastolic dysfunction. Right Ventricle Mildly dilated right ventricle. Normal systolic function. Atria The left atrium is moderately enlarged. The right atrium is mildly enlarged. No doppler evidence for ASD. Mitral Valve There is moderate mitral annular calcification. Extension of the mitral annular calcification on the base of the posterior mitral valve leaflet. Mild (1+) mitral valve insufficiency. Tricuspid Valve Normal tricuspid valve. Mild tricuspid valve insufficiency. Right ventricular systolic pressure estimated to be 51 mmHg. Aortic Valve Trisinus/trileaflet aortic valve. Moderate diffuse aortic valve calcification. Moderate aortic stenosis. Pulmonic Valve The pulmonic valve is not well visualized. Trivial pulmonic valve insufficiency. Great Vessels Calcified aortic root. Pericardium/Pleural No pericardial effusion. Medication 22 gauge I.V. with prn adaptor inserted into right arm. Diluted definity 3.0ml given slow IV push to enhance endocardial definition. MMode/2D Measurements & Calculations LVIDd: 6.1 cm IVSd: 1.0 cm LVOT diam: 2.2 cm LVIDs: 4.2 cm LVPWd: 1.1 cm RVDd: 5.1 cm FS: 32.1 % LVOT area: 3.7 cm2 LAV(MOD-bp): 134.0 ml LA A4 area: 32.4 cm2 LA dimension(2D): 5.4 cm LAV(MOD-bp) Indexed: 58.4 ml/m2 LAV(MOD-sp2): 138.1 ml LAV(MOD-sp4): 127.6 ml RA A4 area: 25.8 cm2 Doppler Measurements & Calculations MV E max jacob: 158.2 cm/sec Lat Peak E' Jacob: 17.4 cm/sec Med Peak E' Jacob: 5.9 cm/sec E/E' lat: 9.1 E/E' med: 26.7 MV V2 max: 162.1 cm/sec Ao V2 max: 318.5 cm/sec LV V1 max: 124.7 cm/sec MV max P.5 mmHg Ao max P.5 mmHg LV V1 max P.2 mmHg MV V2 mean: 79.9 cm/sec Ao V2 mean: 232.8 cm/sec LV V1 mean P.1 mmHg MV mean P.3 mmHg Ao mean P.4 mmHg LV V1 mean: 83.1 cm/sec MV V2 VTI: 28.7 cm Ao V2 VTI: 65.3 cm LV V1 VTI: 25.4 cm MVA(VTI): 3.3 cm2 PAIGE(I,D): 1.5 cm2 PAIGE(V,D): 1.5 cm2 SV(LVOT): 94.8 ml PA V2 max: 103.9 cm/sec TR max jacob: 330.0 cm/sec TR max P.6 mmHg ECHO/Echo Complete W/ Contrast Interpretation Summary The study was technically difficult. Contrast injection was performed. Based upon the 2D echocardiographic and contrast enhanced images obtained there appears to be grossly normal left ventricular size, wall motion, and systolic function. The estimated ejection fraction is 55 %. Mild concentric left ventricular hypertrophy. Mildly dilated right ventricle. The left atrium is moderately enlarged. The right atrium is mildly enlarged. There is moderate mitral annular calcification. Extension of the mitral annular calcification on the base of the posterior mitr al valve leaflet. Mild (1+) mitral valve insufficiency. Mild tricuspid valve insufficiency. Moderate aortic stenosis. Trivial pulmonic valve insufficiency. Calcified aortic root. Right ventricular systolic pressure estimated to be 51 mmHg. There is evidence of diastolic dysfunction. Ordering Physician: Lito Loco Referring Physician: Jaswinder Adrian Performed By: Gretel Beebe, BRITTA, RVT
== END ==
PROVIDERS: PCP Family Medicine; Referring Provider Internal Medicine Cardiovascular Disease; Visit Provider Internal Medicine Cardiovascular Disease
DX: R01.1 Cardiac murmur, unspecified (principal); G47.33 Obstructive sleep apnea (adult) (pediatric)
CPT/HCPCS: 93306; Q9957; A4216; C8929

== ENCOUNTER 2020-10-06 10:00 | Outpatient (RCR) | payer MEDICARE, OTHER, SELFPAY ==
[2020-09-06 16:11] VITALS: BMI 37.0
[2020-09-09 00:43] VITALS: BP 105/52; PULSE 99; RESP 18; TEMP 35.9
[2020-09-15 08:40] VITALS: BP 101/45; PULSE 103; RESP 18; TEMP 36.3; BMI 37.0
--- NOTE | 2020-09-15 14:56 | PN.PCM_ITS ---
History of Present Illness Date of Service: 09/22/20 Chief Complaint: left lower extremity ulcer, cellulitis and edema b/l LE History of Wound: Mr. Russell is a 70 yo gentelman well-known to the wound center who presents due to new (recurrent) left lower extremity ulcer. Said to have started about a week ago. He initially noted increased fluid drainage and increased swelling and then erythema. His HH nurse was concerned regarding the appearance of the left lateral leg and it began draining more and his dialysis nurses were also concerned. He also has petechial appearing spots on his toes, and feet b/l but none of his upper extremities or more proximally. Denies chills, fever or otherwise feeling of unwell. He is on chronic dialysis and uses compression pumps to manage his edema. He recently underwent surgery for fistula placement for dialysis. He reports that his edema has been better than it has been in the past but has had scaling and drainage to his skin which had resolved when he was using UNNA boots when he was here last. He applies Eucerin, zinc oxide to his legs but this has not helped the scaling recently of his left leg. His left leg remains more swollen than his right and has significant keratosis. Progress of Wound: His left LE ulcer continues to improve. Objective Data Objective Data Vital Signs: Vital Signs Temp Pulse Resp BP 97.3 F L 103 H 18 101/45 L 09/15/20 08:40 09/15/20 08:40 09/15/20 08:40 09/15/20 08:40 Weight: 117.934 kg Body Mass Index (BMI) 37.0 Finger Stick Blood Glucose 112 Assessment & Plan Assessment/Plan (1) Chronic acquired lymphedema: (2) Ulcer of left lower extremity with fat layer exposed: (3) Deep vein thrombosis (DVT) of left lower extremity: QUALIFIERS: Affected thrombotic vein of extremity: calf muscle vein Chronicity: acute Qualified Code(s): I82.462 - Acute embolism and thrombosis of left calf muscular vein (4) Obesity: QUALIFIERS: Body mass index: BMI 37.0-37.9 Obesity classification: adult class 2 (BMI 35 - 39.9) Obesity type: unspecified obesity type Serious obesity comorbidity presence: with serious comorbidity Qualified Code(s): E66.01 - Morbid (severe) obesity due to excess calories; Z68.37 - Body mass index [BMI] 37.0-37.9, adult (5) Venous stasis dermatitis: QUALIFIERS: Laterality: bilateral Qualified Code(s): I87.2 - Venous insufficiency (chronic) (peripheral) (6) Lymphedema of both lower extremities: (7) Type 2 diabetes mellitus: QUALIFIERS: Chronic kidney disease stage: on chronic dialysis Diabetes mellitus complication detail: with chronic kidney disease Diabetes mellitus complication status: with kidney complications Diabetes mellitus termination clerk insulin use: with detention use Qualified Code(s): E11.22 - Type 2 diabetes mellitus with diabetic chronic kidney disease; N18.6 - End stage renal disease; Z79.4 - roasterman (current) use of insulin; Z99.2 - Dependence on renal dialysis (8) Chronic kidney disease with end stage 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: PLAN: Mr. Guerra legs have lymphedema and chronic stasis dermatitis with recurrent ulcer of his left lateral lower leg. His ulcers of his right leg remained healed. Left lateral LE ulcer is improving. Will dress his ulcers of his left lateral LE and great toe webspace with Fibracol M,W,F. His petechial lesions are healing. He has decreased edema today bilateral. He is on warfarin for DVT left LE. Dr. Adrian will monitor his INR/warfarin therapy. His recent labs have been reviewed. Encouraged adequate protein intake. Vascular testing ordered due to concerns for underlying siginificant PAD given his DM and heart disease and h/o smoking. Venous studies showed DVT. Arterial studies postponed for 1 month due to DVT. He was advised to use zinc oxide or triamcinolone cream to his legs once daily to help with his dermatitis. Will plan on returning to maintenance control of his edema with PHUC wraps. He was advised to use his compression pumps twice daily and be vigilant with elevating his legs to avoid worsening of his edema which causes the cellulitis and ulcers. Call with worsening pain, drainage or odor. F/U in 1 week. Physical Exam Const alert, oriented x3 and no apparent distress Nutritional Appearance: obese HEENT normocephalic and head/scalp atraumatic Mouth: oral and palatal mucosa normal Resp normal respiratory effort and normal air movement Cardio regular rate and regular rhythm Extremity General Extremity: edema bilateral lower extremity Details: moderate Skin Wounds: wounds noted open Wound Narrative: as in clinical panel Psych mental status grossly normal, thought process normal, cooperative and affect normal Debridement Note Debridement Note Post-Debridement Measurements and Additional Note: Post-Debridement Measurements/Treatment - Nurse 1 - General Ulcer Assessment Start: 09/15/20 08:40 Freq: Status: Active Protocol: JATIN Activity Type Activity Date Activity User E-Sign Co-Sign Detail Recorded Client Recorded Date Recorded By Document 09/15/20 08:40 ISMAEL [id number] 09/15/20 08:42 ISMAEL 09/15/20 08:40 WC - Today's Visit Information Type of service Follow-up Visit (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 ) Arrival Mode Ambulatory, Walker Transfer Assistance None Patient Identification Verified (Name & Yes ) Patient Requires Transmission-Based No Precautions Height and Weight Body Mass Index (BMI) 37.0 BMI Classification Obese Vital Signs Temperature (97.8 F-99.1 F) 97.3 F L Temperature Source Temporal Pulse Rate (60-100) 103 H Pulse Location Monitor Respiratory Rate (12-18) 18 Respiratory rate source Observation Blood Pressure (90/60-120/80) 101/45 L Blood Pressure Mean (mm Hg) 63 Source Monitor Position Semi-Fowlers Blood Pressure Location Right Arm History Since Last Visit- (Skip if this is Patient's initial visit) Have you changed medications since your No last visit? Any new allergies or adverse reactions No Had a fall/change in ADL's that may No increase risk of falls Signs or symptoms of abuse and/or No neglect since last visit Have you been in the hospital since your No last visit? Has dressing in place as prescribed Yes Has compression in place as prescribed No Has offloadiing in place as prescribed No Experienced any changes in pain level or No management Left Footwear Regular Shoe Right Footwear Regular Shoe Pain Scale: 0-10 Numeric Is Patient Pain Free? Yes - Nurse 1 - General Ulcer Measurement Start: 09/15/20 08:40 Freq: Status: Active Protocol: Activity Type Activity Date Activity User E-Sign Co-Sign Detail Recorded Client Recorded Date Recorded By Document 09/15/20 08:40 ISMAEL [id number] 09/15/20 08:42 ISMAEL 09/15/20 08:40 Wound Center Nurse 1 #19 Left Lateral LE -Combined with other wound No -Current Size (cm) - Length 0.6 -Current Size (cm) - Width 0.4 -Current Size (cm) - Depth 0.3 -Total Square Cm 0.24 -Tunneling No -Undermining/Tunneling No -Circular Undermining No -Exudate Amt Medium -Exudate Type Serosanguineous -Wound Margin Thickened & Rolled Under -Granulation Amt Medium (34-66%) -Granulation Quality [place] -Slough/Fibrin Yes -Necrosis Amt Medium (34-66%) -Necrotic Tissue Type Adherent Slough -Structure Exposed N/A -Texture (Jaylyn-wound Skin Appearance) Assessed -Moisture (Jaylyn-wound Skin Appearance) Dry/Scaly -Color (Jaylyn-wound Skin Appearance) Assessed -Temperature (Jaylyn-wound Skin No Abnormality Appearance) (Pt Warm) -Tenderness on Palpation (Jaylyn-wound No Skin Appearance) -Ulcer Cleansing Wound Cleanser -Foul Odor after Cleansing No -Anesthetic Used 4% Lidocaine Solution Lower Limb Edema Present Yes Right Calf (cm) 39.8 Right Ankle (cm) 28 Left Calf (cm) 42.5 Left Ankle (cm) 30 WC - Nurse 2 - General Ulcer CM Notes Start: 09/15/20 08:40 Freq: Status: Active Protocol: Activity Type Activity Date Activity User E-Sign Co-Sign Detail Recorded Client Recorded Date Recorded By Document 09/15/20 09:15 MW [id number] 09/15/20 09:20 MW Edit Result 09/15/20 09:15 MW (1) [id number] 09/15/20 09:23 MW (1) #23 LEFT GREAT TOE WEB SPACE - Time => 09:23 - Correct Patient => Yes - Correct Side, Site, Position => Yes - Correct Procedure => Yes - Procedure Performed => Yes - Type of Procedure => Debridement - Clinical Debridement => Subcutaneous - Tissue Removed => Subcutaneous - Post Debridement (cm) - Length => 0.4 - Post Debridement (cm) - Width => 0.3 - Post Debridement (cm) - Depth => 0.2 - Total Square (Post) (cm) => 0.12 - Area of Debridement (cm) - Length => 0.4 - Area of Debridement (cm) - Width => 0.3 - Total Square (Area) (cm) => 0.12 - Tunneling => No - Undermining/Tunneling => No - Circular Undermining => No - Wound/Ulcer Outcome => Not Healed - Ulcer Cleansing => Rinsed/Irrigated => with Saline - Foul Odor after Cleansing => No - Bioengineered Tissue => No - Bleeding Controlled with => Pressure - Offloading => No - Treatment Response => Procedure => Tolerated Well - Debridement - Subq, 1st 20sq cm => No 09/15/20 09:15 Wound Center Nurse 2 #23 LEFT GREAT TOE WEB SPACE -Time 09:23 -Correct Patient Yes -Correct Side, Site, Position Yes -Correct Procedure Yes -Procedure Performed Yes -Type of Procedure Debridement -Clinical Debridement Subcutaneous -Tissue Removed Subcutaneous -Post Debridement (cm) - Length 0.4 -Post Debridement (cm) - Width 0.3 -Post Debridement (cm) - Depth 0.2 -Total Square (Post) (cm) 0.12 -Area of Debridement (cm) - Length 0.4 -Area of Debridement (cm) - Width 0.3 -Total Square (Area) (cm) 0.12 -Tunneling No -Undermining/Tunneling No -Circular Undermining No -Wound/Ulcer Outcome Not Healed -Ulcer Cleansing Rinsed/ Irrigated with Saline -Foul Odor after Cleansing No -Bioengineered Tissue No -Bleeding Controlled with Pressure -Offloading No -Treatment Response Procedure Tolerated Well -Debridement - Subq, 1st 20sq cm No #19 Left Lateral LE -Time 09:16 -Correct Patient Yes -Correct Side, Site, Position Yes -Correct Procedure Yes -Procedure Performed Yes -Type of Procedure Debridement -Clinical Debridement Subcutaneous -Tissue Removed Subcutaneous -Post Debridement (cm) - Length 0.9 -Post Debridement (cm) - Width 0.7 -Post Debridement (cm) - Depth 0.3 -Total Square (Post) (cm) 0.63 -Area of Debridement (cm) - Length 0.9 -Area of Debridement (cm) - Width 0.7 -Total Square (Area) (cm) 0.63 -Tunneling No -Undermining/Tunneling No -Circular Undermining No -Wound/Ulcer Outcome Not Healed -Ulcer Cleansing Rinsed/ Irrigated with Saline -Foul Odor after Cleansing No -Bioengineered Tissue No -Bleeding Controlled with Pressure -Offloading No -Treatment Response Procedure Tolerated Well -Debridement - Subq, 1st 20sq cm Yes Pain Scale: 0-10 Numeric Is Patient Pain Free? Yes WC - Nurse 3 - General Ulcer D/C NN Start: 09/15/20 08:40 Freq: Status: Active Protocol: Activity Type Activity Date Activity User E-Sign Co-Sign Detail Recorded Client Recorded Date Recorded By Document 09/15/20 09:39 MS [id number] 09/15/20 09:41 MS 09/15/20 09:39 Wound Care Nurse 3 #23 LEFT GREAT TOE WEB SPACE -Ulcer Cleansing Rinsed/ Irrigated with Saline -Foul Odor after Cleansing No -Primary Dressing Applied Fibracol Plus 4x4 -Primary Dressing Covered/Secured with Dry Gauze & Roll Gauze, Secured with Tape -Fibracol Plus 4x4 0 #19 Left Lateral LE -Ulcer Cleansing Rinsed/ Irrigated with Saline -Foul Odor after Cleansing No -Primary Dressing Applied Fibracol Plus 4x4 -Primary Dressing Covered/Secured with Dry Gauze & Roll Gauze, Secured with Tape -Fibracol Plus 4x4 1 Right -Lotion applied to leg before Yes compression wrap -Other PHUC Left -Lotion applied to leg before Yes compression wrap -Other PHUC WC - Visit Discharge Discharge Condition Stable Ambulatory Status Ambulatory, Walker Medication Reconcilliation completed & No provided to patient/care provider Clinical Summary of Care Provided Yes Wound debrided: left lateral LE Laterality: Left Type of Debridement: Excisional debridement Anesthesia Used: 4% Lidocaine Solution Depth: Down to and including healthy tissue and in the subcutaneous layer Percentage of wound debrided: 100 Instrument Used: 3mm curette Tissue Removed: Yellow slough, devitalized tissue Severity: Fat Layer Exposed Amount of bleeding with debridement: Mild Bleeding Controlled with: Compression and gauze Patient tolerated procedure: Patient tolerated procedure well Additional Wound Wound debrided: left great toe webspace Laterality: Left Wound Grade/Stage: Grade 1 Type of Debridement: Selective debridement Anesthesia Used: 4% Lidocaine Solution Depth: Down to and including healthy tissue and in the subcutaneous layer Percentage of wound debrided: 100 Instrument Used: - (gauze) Tissue Removed: Yellow slough, devitalized tissue Severity: Fat Layer Exposed Amount of bleeding with debridement: Mild Bleeding Controlled with: Compression and gauze Patient tolerated procedure: Patient tolerated procedure well
[2020-09-29 08:27] VITALS: BP 99/37; PULSE 99; RESP 18; TEMP 36.3; BMI 37.0
--- NOTE | 2020-09-29 09:36 | WC ---
betadine between 2nd & 3rd ,3rd & 4th. amd 4th and 5th toes on left foot.
--- NOTE | 2020-09-29 14:07 | PCM.WC.PN ---
History of Present Illness Date of Service: 09/29/20 Chief Complaint: left lower extremity ulcer, cellulitis and edema b/l LE History of Wound: Mr. Russell is a 70 yo gentelman well-known to the wound center who presents due to new (recurrent) left lower extremity ulcer. Said to have started about a week ago. He initially noted increased fluid drainage and increased swelling and then erythema. His HH nurse was concerned regarding the appearance of the left lateral leg and it began draining more and his dialysis nurses were also concerned. He also has petechial appearing spots on his toes, and feet b/l but none of his upper extremities or more proximally. Denies chills, fever or otherwise feeling of unwell. He is on chronic dialysis and uses compression pumps to manage his edema. He recently underwent surgery for fistula placement for dialysis. He reports that his edema has been better than it has been in the past but has had scaling and drainage to his skin which had resolved when he was using [employer] boots when he was here last. He applies Eucerin, zinc oxide to his legs but this has not helped the scaling recently of his left leg. His left leg remains more swollen than his right and has significant keratosis. Progress of Wound: His left LE ulcer continues to improve slightly. He has a small area of skin breakdown between his left great toe and second toe. Objective Data Objective Data Vital Signs: Vital Signs Temp Pulse Resp BP 97.3 F L 99 18 99/37 L 09/29/20 08:27 09/29/20 08:27 09/29/20 08:27 09/29/20 08:27 Weight: 117.934 kg Body Mass Index (BMI) 37.0 Physical Exam Const alert, oriented x3 and no apparent distress Nutritional Appearance: obese HEENT normocephalic and head/scalp atraumatic Resp normal respiratory effort and normal air movement Cardio regular rate and regular rhythm Extremity General Extremity: edema bilateral lower extremity Details: moderate Skin Wounds: wounds noted open Wound Narrative: as in clinical panel Psych mental status grossly normal, thought process normal, cooperative and affect normal Debridement Note Debridement Note Post-Debridement Measurements and Additional Note: Post-Debridement Measurements/Treatment MAXX - Nurse 1 - General Ulcer Assessment Start: 09/15/20 08:40 Freq: Status: Active Protocol: JATIN Activity Type Activity Date Activity User E-Sign Co-Sign Detail Recorded Client Recorded Date Recorded By Document 09/15/20 08:40 RB [id number] 09/15/20 08:42 RB Document 09/29/20 08:27 RB [id number] 09/29/20 08:34 RB 09/15/20 09/29/20 08:40 08:27 - Today's Visit Information Type of service Follow-up Visit Follow-up Visit (Physician/LINE CONTROLLER (Physician/LINE CONTROLLER ) ) Arrival Mode Ambulatory, Ambulatory, Walker Walker Transfer Assistance None None Patient Identification Verified (Name & Yes Yes ) Patient Requires Transmission-Based No No Precautions Height and Weight Body Mass Index (BMI) 37.0 37.0 BMI Classification Obese Obese Vital Signs Temperature (97.8 F-99.1 F) 97.3 F L 97.3 F L Temperature Source Temporal Temporal Pulse Rate (60-100) 103 H 99 Pulse Location Monitor Monitor Respiratory Rate (12-18) 18 18 Respiratory rate source Observation Observation Blood Pressure (90/60-120/80) 101/45 L 99/37 L Blood Pressure Mean (mm Hg) 63 57 Source Monitor Monitor Position Semi-Fowlers Semi-Fowlers Blood Pressure Location Right Arm Left Arm History Since Last Visit- (Skip if this is Patient's initial visit) Have you changed medications since your No No last visit? Any new allergies or adverse reactions No No Had a fall/change in ADL's that may No No increase risk of falls Signs or symptoms of abuse and/or No No neglect since last visit Have you been in the hospital since your No No last visit? Has dressing in place as prescribed Yes Yes Has compression in place as prescribed No No Has offloadiing in place as prescribed No Yes Experienced any changes in pain level or No No management Left Footwear Regular Shoe Right Footwear Regular Shoe Pain Scale: 0-10 Numeric Is Patient Pain Free? Yes Yes - Nurse 1 - General Ulcer Measurement Start: 09/15/20 08:40 Freq: Status: Active Protocol: Activity Type Activity Date Activity User E-Sign Co-Sign Detail Recorded Client Recorded Date Recorded By Document 09/15/20 08:40 RB [id number] 09/15/20 08:42 RB Document 09/29/20 08:27 RB [id number] 09/29/20 08:34 RB 09/15/20 09/29/20 08:40 08:27 Wound Center Nurse 1 #23 LEFT GREAT TOE WEB SPACE -Combined with other wound No -Current Size (cm) - Length 0.4 -Current Size (cm) - Width 0.4 -Current Size (cm) - Depth 0.1 -Total Square Cm 0.16 -Tunneling No -Circular Undermining No -Exudate Amt Small -Exudate Type Serosanguineous -Wound Margin Flat & Intact -Granulation Amt Medium (34-66%) -Granulation Quality [place],Red -Slough/Fibrin Yes -Necrosis Amt Small (1-33%) -Necrotic Tissue Type Adherent Slough -Structure Exposed None/Limited to Skin Breakdown -Texture (Jaylyn-wound Skin Appearance) Assessed -Moisture (Jaylyn-wound Skin Appearance) Assessed -Color (Jaylyn-wound Skin Appearance) Assessed -Temperature (Jaylyn-wound Skin No Abnormality Appearance) (Pt Warm) -Tenderness on Palpation (Jaylyn-wound No Skin Appearance) -Ulcer Cleansing Wound Cleanser -Foul Odor after Cleansing No -Anesthetic Used 5% Lidocaine Gel #19 Left Lateral LE -Combined with other wound No No -Current Size (cm) - Length 0.6 2 -Current Size (cm) - Width 0.4 1.5 -Current Size (cm) - Depth 0.3 0.3 -Total Square Cm 0.24 3.0 -Tunneling No No -Undermining/Tunneling No No -Circular Undermining No No -Exudate Amt Medium Medium -Exudate Type Serosanguineous Serosanguineous -Wound Margin Thickened & Rolled Under -Granulation Amt Medium (34-66%) Medium (34-66%) -Granulation Quality [place] -Slough/Fibrin Yes Yes -Necrosis Amt Medium (34-66%) Small (1-33%) -Necrotic Tissue Type Adherent Slough Adherent Slough -Structure Exposed N/A N/A -Texture (Jaylyn-wound Skin Appearance) Assessed Assessed -Moisture (Jaylyn-wound Skin Appearance) Dry/Scaly Dry/Scaly -Color (Jaylyn-wound Skin Appearance) Assessed Assessed -Temperature (Jaylyn-wound Skin No Abnormality No Abnormality Appearance) (Pt Warm) (Pt Warm) -Tenderness on Palpation (Jaylyn-wound No No Skin Appearance) -Ulcer Cleansing Wound Cleanser Wound Cleanser -Foul Odor after Cleansing No No -Anesthetic Used 4% Lidocaine 5% Lidocaine Solution Gel Lower Limb Edema Present Yes Yes Right Calf (cm) 39.8 42.2 Right Ankle (cm) 28 29 Left Calf (cm) 42.5 43 Left Ankle (cm) 30 31 - Nurse 2 - General Ulcer CM Notes Start: 09/15/20 08:40 Freq: Status: Active Protocol: Activity Type Activity Date Activity User E-Sign Co-Sign Detail Recorded Client Recorded Date Recorded By Document 09/15/20 09:15 MW [id number] 09/15/20 09:20 MW Edit Result 09/15/20 09:15 MW (1) [id number] 09/15/20 09:23 MW Document 09/29/20 08:59 MW [id number] 09/29/20 09:09 MW (1) #23 LEFT GREAT TOE WEB SPACE - Time => 09:23 - Correct Patient => Yes - Correct Side, Site, Position => Yes - Correct Procedure => Yes - Procedure Performed => Yes - Type of Procedure => Debridement - Clinical Debridement => Subcutaneous - Tissue Removed => Subcutaneous - Post Debridement (cm) - Length => 0.4 - Post Debridement (cm) - Width => 0.3 - Post Debridement (cm) - Depth => 0.2 - Total Square (Post) (cm) => 0.12 - Area of Debridement (cm) - Length => 0.4 - Area of Debridement (cm) - Width => 0.3 - Total Square (Area) (cm) => 0.12 - Tunneling => No - Undermining/Tunneling => No - Circular Undermining => No - Wound/Ulcer Outcome => Not Healed - Ulcer Cleansing => Rinsed/Irrigated => with Saline - Foul Odor after Cleansing => No - Bioengineered Tissue => No - Bleeding Controlled with => Pressure - Offloading => No - Treatment Response => Procedure => Tolerated Well - Debridement - Subq, 1st 20sq cm => No 09/15/20 09/29/20 09:15 08:59 Wound Center Nurse 2 #23 LEFT GREAT TOE WEB SPACE -Time 09: 09:01 -Correct Patient Yes Yes -Correct Side, Site, Position Yes Yes -Correct Procedure Yes Yes -Procedure Performed Yes Yes -Type of Procedure Debridement Debridement -Clinical Debridement Subcutaneous Subcutaneous -Tissue Removed Subcutaneous Subcutaneous -Post Debridement (cm) - Length 0.4 0.3 -Post Debridement (cm) - Width 0.3 0.4 -Post Debridement (cm) - Depth 0.2 0.2 -Total Square (Post) (cm) 0.12 0.12 -Area of Debridement (cm) - Length 0.4 0.3 -Area of Debridement (cm) - Width 0.3 0.4 -Total Square (Area) (cm) 0.12 0.12 -Tunneling No No -Undermining/Tunneling No No -Circular Undermining No No -Wound/Ulcer Outcome Not Healed Not Healed -Ulcer Cleansing Rinsed/ Rinsed/ Irrigated with Irrigated with Saline Saline -Foul Odor after Cleansing No No -Bioengineered Tissue No No -Bleeding Controlled with Pressure Pressure -Offloading No No -Treatment Response Procedure Procedure Tolerated Well Tolerated Well -Debridement - Subq, 1st 20sq cm No No #19 Left Lateral LE -Time 09:16 09:02 -Correct Patient Yes Yes -Correct Side, Site, Position Yes Yes -Correct Procedure Yes Yes -Procedure Performed Yes Yes -Type of Procedure Debridement Debridement -Clinical Debridement Subcutaneous Subcutaneous -Tissue Removed Subcutaneous Subcutaneous -Post Debridement (cm) - Length 0.9 0.9 -Post Debridement (cm) - Width 0.7 0.5 -Post Debridement (cm) - Depth 0.3 0.3 -Total Square (Post) (cm) 0.63 0.45 -Area of Debridement (cm) - Length 0.9 0.9 -Area of Debridement (cm) - Width 0.7 0.5 -Total Square (Area) (cm) 0.63 0.45 -Tunneling No No -Undermining/Tunneling No No -Circular Undermining No No -Wound/Ulcer Outcome Not Healed Not Healed -Ulcer Cleansing Rinsed/ Rinsed/ Irrigated with Irrigated with Saline Saline -Foul Odor after Cleansing No No -Bioengineered Tissue No No -Bleeding Controlled with Pressure Pressure -Offloading No No -Treatment Response Procedure Procedure Tolerated Well Tolerated Well -Debridement - Subq, 1st 20sq cm Yes Yes Pain Scale: 0-10 Numeric Is Patient Pain Free? Yes Yes WC - Nurse 3 - General Ulcer D/C NN Start: 09/15/20 08:40 Freq: Status: Active Protocol: Activity Type Activity Date Activity User E-Sign Co-Sign Detail Recorded Client Recorded Date Recorded By Document 09/15/20 09:39 MS [id number] 09/15/20 09:41 MS Document 09/29/20 09:32 RB [id number] 09/29/20 09:38 RB 09/15/20 09/29/20 09:39 09:32 Wound Care Nurse 3 #23 LEFT GREAT TOE WEB SPACE -Ulcer Cleansing Rinsed/ Rinsed/ Irrigated with Irrigated with Saline Saline -Foul Odor after Cleansing No -Primary Dressing Applied Fibracol Plus Aquacel Extra 4x4 -Primary Dressing Covered/Secured with Dry Gauze & Dry Gauze Roll Gauze, Secured with Tape -Aquacel Extra 1 -Fibracol Plus 4x4 0 #19 Left Lateral LE -Ulcer Cleansing Rinsed/ Rinsed/ Irrigated with Irrigated with Saline Saline -Foul Odor after Cleansing No -Primary Dressing Applied Fibracol Plus 4x4 -Other Dressing aquacel extra -Primary Dressing Covered/Secured with Dry Gauze & Dry Gauze,Dry Roll Gauze, Gauze & Roll Secured with Gauze,Secured Tape with Tape -Fibracol Plus 4x4 1 Right -Lotion applied to leg before Yes compression wrap -Other PHUC phuc Left -Lotion applied to leg before Yes compression wrap -Other PHUC phuc Treatment Response Procedure Tolerated Well Pain Scale: 0-10 Numeric Is Patient Pain Free? Yes WC - Visit Discharge Discharge Condition Stable Stable Ambulatory Status Ambulatory, Ambulatory, Walker Walker Transportation Private Auto Medication Reconcilliation completed & No No provided to patient/care provider Clinical Summary of Care Provided Yes Yes 09/29/20 09:36 Wound Center by Dena Ann between 2nd & 3rd ,3rd & 4th. amd 4th and 5th toes on left foot. Initialized on 09/29/20 09:36 - END OF NOTE Wound debrided: left great toe web space Laterality: Left Wound Grade/Stage: Espinoza grade 2 Type of Debridement: Selective debridement Anesthesia Used: 4% Lidocaine Solution Depth: Down to and including healthy tissue and in the subcutaneous layer Percentage of wound debrided: 100 Instrument Used: 3mm curette Tissue Removed: yellow slough, devitalized tissue Severity: Fat Layer Exposed Amount of bleeding with debridement: Mild Bleeding Controlled with: Compression and gauze Patient tolerated procedure: Patient tolerated procedure well Additional Wound Wound debrided: left lateral LE Laterality: Left Type of Debridement: Excisional debridement Anesthesia Used: 4% Lidocaine Solution Depth: Down to and including healthy tissue and in the subcutaneous layer Percentage of wound debrided: 100 Instrument Used: 3mm curette Tissue Removed: yellow slough, devitalized tissue Severity: Fat Layer Exposed Amount of bleeding with debridement: Mild Bleeding Controlled with: Compression and gauze Patient tolerated procedure: Patient tolerated procedure well Assessment/Plan Assessment/Plan (1) Chronic acquired lymphedema: CODE(S): I89.0 - Lymphedema, not elsewhere classified (2) Ulcer of left lower extremity with fat layer exposed: CODE(S): L97.922 - Non-pressure chronic ulcer of unspecified part of left lower leg with fat layer exposed (3) Deep vein thrombosis (DVT) of left lower extremity: CODE(S): I82.402 - Acute embolism and thrombosis of unspecified deep veins of left lower extremity QUALIFIERS: Affected thrombotic vein of extremity: calf muscle vein Chronicity: acute Qualified Code(s): I82.462 - Acute embolism and thrombosis of left calf muscular vein (4) Obesity: CODE(S): E66.9 - Obesity, unspecified QUALIFIERS: Obesity type: unspecified obesity type Obesity classification: adult class 2 (BMI 35 - 39.9) Serious obesity comorbidity presence: with serious comorbidity Body mass index: BMI 37.0-37.9 Qualified Code(s): E66.01 - Morbid (severe) obesity due to excess calories; Z68.37 - Body mass index [BMI] 37.0-37.9, adult (5) Venous stasis dermatitis: CODE(S): I87.2 - Venous insufficiency (chronic) (peripheral) QUALIFIERS: Laterality: bilateral Qualified Code(s): I87.2 - Venous insufficiency (chronic) (peripheral) (6) Lymphedema of both lower extremities: CODE(S): I89.0 - Lymphedema, not elsewhere classified (7) Type 2 diabetes mellitus: CODE(S): E11.9 - Type 2 diabetes mellitus without complications QUALIFIERS: Diabetes mellitus complication status: with kidney complications Diabetes mellitus complication detail: with chronic kidney disease Diabetes mellitus shelter insulin use: with shelter use Chronic kidney disease stage: on chronic dialysis Qualified Code(s): E11.22 - Type 2 diabetes mellitus with diabetic chronic kidney disease; N18.6 - End stage renal disease; Z79.4 - long term acute care registered nurse (current) use of insulin; Z99.2 - Dependence on renal dialysis (8) Chronic kidney disease with end stage 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: CODE(S): N18.6 - End stage renal disease; Z99.2 - Dependence on renal dialysis PLAN: Mr. Russell's legs have lymphedema and chronic stasis dermatitis with recurrent ulcer of his left lateral lower leg. His ulcers of his right leg remained healed. Left lateral LE ulcer is improving. Will dress his ulcers of his left lateral LE and great toe webspace with Aquacel extra M,W,F. His petechial lesions are healing. He has decreased edema today bilateral. He is on warfarin for DVT left LE. Dr. Adrian will continue to monitor his INR/warfarin therapy. His recent labs have been reviewed. Encouraged adequate protein intake. Vascular testing ordered due to concerns for underlying siginificant PAD given his DM and heart disease and h/o smoking. Venous studies showed DVT. Arterial studies postponed for 1 month due to DVT. He was advised to use zinc oxide or triamcinolone cream to his legs once daily to help with his dermatitis. Will plan on returning to maintenance control of his edema with PHUC wraps. He was advised to use his compression pumps twice daily and be vigilant with elevating his legs to avoid worsening of his edema which causes the cellulitis and ulcers. Call with worsening pain, drainage or odor. F/U in 1 week.
[2020-10-06 10:02] VITALS: BP 102/42; PULSE 100; RESP 18; TEMP 36.8; BMI 37.0
--- NOTE | 2020-10-06 13:29 | PCM.WC.PN ---
History of Present Illness Date of Service: 10/06/20 Chief Complaint: left lower extremity ulcer, cellulitis and edema b/l LE History of Wound: Mr. Russell is a 70 yo gentelman well-known to the wound center who presents due to new (recurrent) left lower extremity ulcer. Said to have started about a week ago. He initially noted increased fluid drainage and increased swelling and then erythema. His HH nurse was concerned regarding the appearance of the left lateral leg and it began draining more and his dialysis nurses were also concerned. He also has petechial appearing spots on his toes, and feet b/l but none of his upper extremities or more proximally. Denies chills, fever or otherwise feeling of unwell. He is on chronic dialysis and uses compression pumps to manage his edema. He recently underwent surgery for fistula placement for dialysis. He reports that his edema has been better than it has been in the past but has had scaling and drainage to his skin which had resolved when he was using UNNA boots when he was here last. He applies Eucerin, zinc oxide to his legs but this has not helped the scaling recently of his left leg. His left leg remains more swollen than his right and has significant keratosis. Progress of Wound: His left LE ulcer continues to improve slightly. He has a small area of skin breakdown between his left great toe and second toe but this has improved. Objective Data Objective Data Vital Signs: Vital Signs Temp Pulse Resp BP 98.3 F 100 18 102/42 L 10/06/20 10:02 10/06/20 10:02 10/06/20 10:02 10/06/20 10:02 Weight: 117.934 kg Body Mass Index (BMI) 37.0 Physical Exam Const alert, oriented x3 and no apparent distress Nutritional Appearance: obese HEENT normocephalic and head/scalp atraumatic Resp normal respiratory effort and normal air movement Cardio regular rate and regular rhythm Extremity General Extremity: edema bilateral lower extremity Details: moderate Skin Wounds: wounds noted open Wound Narrative: as in clinical panel Psych mental status grossly normal, thought process normal, cooperative and affect normal Debridement Note Debridement Note Post-Debridement Measurements and Additional Note: Post-Debridement Measurements/Treatment WC - Nurse 1 - General Ulcer Assessment Start: 09/15/20 08:40 Freq: Status: Active Protocol: JATIN Activity Type Activity Date Activity User E-Sign Co-Sign Detail Recorded Client Recorded Date Recorded By Document 09/15/20 08:40 RB [id number] 09/15/20 08:42 RB Document 09/29/20 08:27 RB [id number] 09/29/20 08:34 RB Document 10/06/20 10:02 RB [id number] 10/06/20 10:11 RB 09/15/20 09/29/20 10/06/20 08:40 08:27 10:02 - Today's Visit Information Type of service Follow-up Visit Follow-up Visit Follow-up Visit (Physician/[employer] (Physician/[employer] (Physician/[employer] ) ) ) Arrival Mode Ambulatory, Ambulatory, Ambulatory, Walker Walker Walker Transfer Assistance None None None Patient Identification Verified (Name & Yes Yes Yes ) Patient Requires Transmission-Based No No No Precautions Height and Weight Body Mass Index (BMI) 37.0 37.0 37.0 BMI Classification Obese Obese Obese Vital Signs Temperature (97.8 F-99.1 F) 97.3 F L 97.3 F L 98.3 F Temperature Source Temporal Temporal Temporal Pulse Rate (60-100) 103 H 99 100 Pulse Location Monitor Monitor Monitor Respiratory Rate (12-18) 18 18 18 Respiratory rate source Observation Observation Observation Blood Pressure (90/60-120/80) 101/45 L 99/37 L 102/42 L Blood Pressure Mean (mm Hg) 63 57 62 Source Monitor Monitor Position Semi-Fowlers Semi-Fowlers Sitting Blood Pressure Location Right Arm Left Arm Left Arm History Since Last Visit- (Skip if this is Patient's initial visit) Have you changed medications since your No No No last visit? Any new allergies or adverse reactions No No No Had a fall/change in ADL's that may No No No increase risk of falls Signs or symptoms of abuse and/or No No No neglect since last visit Have you been in the hospital since your No No No last visit? Has dressing in place as prescribed Yes Yes Yes Has compression in place as prescribed No No Yes Has offloadiing in place as prescribed No Yes No Experienced any changes in pain level or No No No management Left Footwear Regular Shoe Regular Shoe Right Footwear Regular Shoe Regular Shoe Pain Scale: 0-10 Numeric Is Patient Pain Free? Yes Yes - Nurse 1 - General Ulcer Measurement Start: 09/15/20 08:40 Freq: Status: Active Protocol: Activity Type Activity Date Activity User E-Sign Co-Sign Detail Recorded Client Recorded Date Recorded By Document 09/15/20 08:40 RB [id number] 09/15/20 08:42 RB Document 09/29/20 08:27 RB [id number] 09/29/20 08:34 RB Document 10/06/20 10:02 RB [id number] 10/06/20 10:11 RB 09/15/20 09/29/20 10/06/20 08:40 08:27 10:02 Wound Center Nurse 1 #23 LEFT GREAT TOE WEB SPACE -Combined with other wound No No -Current Size (cm) - Length 0.4 0.2 -Current Size (cm) - Width 0.4 0.2 -Current Size (cm) - Depth 0.1 0.1 -Total Square Cm 0.16 0.04 -Tunneling No No -Undermining/Tunneling No -Circular Undermining No No -Exudate Amt Small -Exudate Type Serosanguineous -Wound Margin Flat & Intact Flat & Intact -Granulation Amt Medium (34-66%) Medium (34-66%) -Granulation Quality [place],Red Red -Slough/Fibrin Yes Yes -Necrosis Amt Small (1-33%) Small (1-33%) -Necrotic Tissue Type Adherent Slough Adherent Slough -Structure Exposed None/Limited to N/A Skin Breakdown -Texture (Jaylyn-wound Skin Appearance) Assessed Assessed -Moisture (Jaylyn-wound Skin Appearance) Assessed Assessed,Dry/ Scaly -Color (Jaylyn-wound Skin Appearance) Assessed Assessed -Temperature (Jaylyn-wound Skin No Abnormality No Abnormality Appearance) (Pt Warm) (Pt Warm) -Tenderness on Palpation (Jaylyn-wound No No Skin Appearance) -Ulcer Cleansing Wound Cleanser Wound Cleanser -Foul Odor after Cleansing No No -Anesthetic Used 5% Lidocaine 4% Lidocaine Gel Solution #19 Left Lateral LE -Combined with other wound No No No -Current Size (cm) - Length 0.6 2 0.3 -Current Size (cm) - Width 0.4 1.5 0.3 -Current Size (cm) - Depth 0.3 0.3 0.2 -Total Square Cm 0.24 3.0 0.09 -Tunneling No No No -Undermining/Tunneling No No No -Circular Undermining No No No -Exudate Amt Medium Medium Medium -Exudate Type Serosanguineous Serosanguineous Serosanguineous -Wound Margin Thickened & Thickened & Rolled Under Rolled Under -Granulation Amt Medium (34-66%) Medium (34-66%) Medium (34-66%) -Granulation Quality [place] -Slough/Fibrin Yes Yes Yes -Necrosis Amt Medium (34-66%) Small (1-33%) Small (1-33%) -Necrotic Tissue Type Adherent Slough Adherent Slough Adherent Slough -Structure Exposed N/A N/A N/A -Texture (Jaylyn-wound Skin Appearance) Assessed Assessed Assessed -Moisture (Jaylyn-wound Skin Appearance) Dry/Scaly Dry/Scaly Dry/Scaly -Color (Jaylyn-wound Skin Appearance) Assessed Assessed Assessed -Temperature (Jaylyn-wound Skin No Abnormality No Abnormality No Abnormality Appearance) (Pt Warm) (Pt Warm) (Pt Warm) -Tenderness on Palpation (Jaylyn-wound No No No Skin Appearance) -Ulcer Cleansing Wound Cleanser Wound Cleanser Wound Cleanser -Foul Odor after Cleansing No No No -Anesthetic Used 4% Lidocaine 5% Lidocaine 4% Lidocaine Solution Gel Solution Lower Limb Edema Present Yes Yes Yes Right Calf (cm) 39.8 42.2 Right Ankle (cm) 28 29 Left Calf (cm) 42.5 43 43.5 Left Ankle (cm) 30 31 29.5 WC - Nurse 2 - General Ulcer CM Notes Start: 09/15/20 08:40 Freq: Status: Active Protocol: Activity Type Activity Date Activity User E-Sign Co-Sign Detail Recorded Client Recorded Date Recorded By Document 09/15/20 09:15 MW [id number] 09/15/20 09:20 MW Edit Result 09/15/20 09:15 MW (1) [id number] 09/15/20 09:23 MW Document 09/29/20 08:59 MW [id number] 09/29/20 09:09 MW Document 10/06/20 12:24 PL [id number] 10/06/20 12:27 PL (1) #23 LEFT GREAT TOE WEB SPACE - Time => 09:23 - Correct Patient => Yes - Correct Side, Site, Position => Yes - Correct Procedure => Yes - Procedure Performed => Yes - Type of Procedure => Debridement - Clinical Debridement => Subcutaneous - Tissue Removed => Subcutaneous - Post Debridement (cm) - Length => 0.4 - Post Debridement (cm) - Width => 0.3 - Post Debridement (cm) - Depth => 0.2 - Total Square (Post) (cm) => 0.12 - Area of Debridement (cm) - Length => 0.4 - Area of Debridement (cm) - Width => 0.3 - Total Square (Area) (cm) => 0.12 - Tunneling => No - Undermining/Tunneling => No - Circular Undermining => No - Wound/Ulcer Outcome => Not Healed - Ulcer Cleansing => Rinsed/Irrigated => with Saline - Foul Odor after Cleansing => No - Bioengineered Tissue => No - Bleeding Controlled with => Pressure - Offloading => No - Treatment Response => Procedure => Tolerated Well - Debridement - Subq, 1st 20sq cm => No 09/15/20 09/29/20 10/06/20 09:15 08:59 12:24 Wound Center Nurse 2 #23 LEFT GREAT TOE WEB SPACE -Time 09:23 09:01 10:10 -Correct Patient Yes Yes Yes -Correct Side, Site, Position Yes Yes Yes -Correct Procedure Yes Yes Yes -Procedure Performed Yes Yes Yes -Type of Procedure Debridement Debridement Debridement -Clinical Debridement Subcutaneous Subcutaneous Subcutaneous -Tissue Removed Subcutaneous Subcutaneous Subcutaneous -Post Debridement (cm) - Length 0.4 0.3 0.3 -Post Debridement (cm) - Width 0.3 0.4 0.2 -Post Debridement (cm) - Depth 0.2 0.2 0.2 -Total Square (Post) (cm) 0.12 0.12 0.06 -Area of Debridement (cm) - Length 0.4 0.3 0.3 -Area of Debridement (cm) - Width 0.3 0.4 0.2 -Total Square (Area) (cm) 0.12 0.12 0.06 -Tunneling No No No -Undermining/Tunneling No No No -Circular Undermining No No No -Wound/Ulcer Outcome Not Healed Not Healed Not Healed -Ulcer Cleansing Rinsed/ Rinsed/ Rinsed/ Irrigated with Irrigated with Irrigated with Saline Saline Saline -Foul Odor after Cleansing No No No -Bioengineered Tissue No No No -Bleeding Controlled with Pressure Pressure Pressure -Offloading No No -Treatment Response Procedure Procedure Procedure Tolerated Well Tolerated Well Tolerated Well -Debridement - Subq, 1st 20sq cm No No Yes #19 Left Lateral LE -Time 09:16 09:02 10:10 -Correct Patient Yes Yes Yes -Correct Side, Site, Position Yes Yes Yes -Correct Procedure Yes Yes Yes -Procedure Performed Yes Yes Yes -Type of Procedure Debridement Debridement Debridement -Clinical Debridement Subcutaneous Subcutaneous Subcutaneous -Tissue Removed Subcutaneous Subcutaneous Subcutaneous -Post Debridement (cm) - Length 0.9 0.9 0.7 -Post Debridement (cm) - Width 0.7 0.5 0.5 -Post Debridement (cm) - Depth 0.3 0.3 0.4 -Total Square (Post) (cm) 0.63 0.45 0.35 -Area of Debridement (cm) - Length 0.9 0.9 0.7 -Area of Debridement (cm) - Width 0.7 0.5 0.5 -Total Square (Area) (cm) 0.63 0.45 0.35 -Tunneling No No No -Undermining/Tunneling No No No -Circular Undermining No No No -Wound/Ulcer Outcome Not Healed Not Healed Not Healed -Ulcer Cleansing Rinsed/ Rinsed/ Rinsed/ Irrigated with Irrigated with Irrigated with Saline Saline Saline -Foul Odor after Cleansing No No No -Bioengineered Tissue No No No -Bleeding Controlled with Pressure Pressure Pressure -Offloading No No -Treatment Response Procedure Procedure Procedure Tolerated Well Tolerated Well Tolerated Well -Debridement - Subq, 1st 20sq cm Yes Yes No Pain Scale: 0-10 Numeric Is Patient Pain Free? Yes Yes Yes WC - Nurse 3 - General Ulcer D/C NN Start: 09/15/20 08:40 Freq: Status: Active Protocol: Activity Type Activity Date Activity User E-Sign Co-Sign Detail Recorded Client Recorded Date Recorded By Document 09/15/20 09:39 MS [id number] 09/15/20 09:41 MS Document 09/29/20 09:32 RB [id number] 09/29/20 09:38 RB Document 10/06/20 10:30 JF [id number] 10/06/20 10:32 JF 09/15/20 09/29/20 10/06/20 09:39 09:32 10:30 Wound Care Nurse 3 #23 LEFT GREAT TOE WEB SPACE -Ulcer Cleansing Rinsed/ Rinsed/ Rinsed/ Irrigated with Irrigated with Irrigated with Saline Saline Saline -Foul Odor after Cleansing No No -Primary Dressing Applied Fibracol Plus Aquacel Extra 4x4 -Other Dressing BETADINE -Primary Dressing Covered/Secured with Dry Gauze & Dry Gauze Dry Gauze & Roll Gauze, Roll Gauze Secured with Tape -Aquacel Extra 1 -Fibracol Plus 4x4 0 #19 Left Lateral LE -Ulcer Cleansing Rinsed/ Rinsed/ Rinsed/ Irrigated with Irrigated with Irrigated with Saline Saline Saline -Foul Odor after Cleansing No No -Primary Dressing Applied Fibracol Plus Aquacel Extra 4x4 -Other Dressing aquacel extra -Primary Dressing Covered/Secured with Dry Gauze & Dry Gauze,Dry Dry Gauze & Roll Gauze, Gauze & Roll Roll Gauze, Secured with Gauze,Secured Secured with Tape with Tape Tape -Aquacel Extra 1 -Fibracol Plus 4x4 1 Right -Lotion applied to leg before Yes compression wrap -Compression Wrap Krunal Wrap -Other KRUNAL krunal Left -Lotion applied to leg before Yes compression wrap -Compression Wrap Krunal Wrap -Other KRUNAL krunal Treatment Response Procedure Tolerated Well Pain Scale: 0-10 Numeric Is Patient Pain Free? Yes Yes WC - Visit Discharge Discharge Condition Stable Stable Stable Ambulatory Status Ambulatory, Ambulatory, Ambulatory, Walker Walker Walker Transportation Private Auto Private Auto Medication Reconcilliation completed & No No Yes provided to patient/care provider Clinical Summary of Care Provided Yes Yes Yes Notes: tRIAMCINOLONE CREAM TO PERIULCERS 09/29/20 09:36 Wound Center by Dena Ann between 2nd & 3rd ,3rd & 4th. amd 4th and 5th toes on left foot. Initialized on 09/29/20 09:36 - END OF NOTE Wound debrided: left great toe webspace Laterality: Left Wound Grade/Stage: Espinoza grade 2 Type of Debridement: Excisional debridement Anesthesia Used: 4% Lidocaine Solution Depth: Down to and including healthy tissue and in the subcutaneous layer Percentage of wound debrided: 100 Instrument Used: 3mm curette Tissue Removed: Yellow slough, devitalized tissue Severity: Fat Layer Exposed Amount of bleeding with debridement: Mild Bleeding Controlled with: Compression and gauze Patient tolerated procedure: Patient tolerated procedure well Additional Wound Wound debrided: left lateral LE Laterality: Left Type of Debridement: Excisional debridement Anesthesia Used: 4% Lidocaine Solution Depth: Down to and including healthy tissue and in the subcutaneous layer Percentage of wound debrided: 100 Instrument Used: 3mm curette Tissue Removed: Yellow slough, devitalized tissue Severity: Fat Layer Exposed Amount of bleeding with debridement: Mild Bleeding Controlled with: Compression and gauze Patient tolerated procedure: Patient tolerated procedure well Assessment/Plan Assessment/Plan (1) Chronic acquired lymphedema: CODE(S): I89.0 - Lymphedema, not elsewhere classified (2) Ulcer of left lower extremity with fat layer exposed: CODE(S): L97.922 - Non-pressure chronic ulcer of unspecified part of left lower leg with fat layer exposed (3) Deep vein thrombosis (DVT) of left lower extremity: CODE(S): I82.402 - Acute embolism and thrombosis of unspecified deep veins of left lower extremity QUALIFIERS: Affected thrombotic vein of extremity: calf muscle vein Chronicity: acute Qualified Code(s): I82.462 - Acute embolism and thrombosis of left calf muscular vein (4) Obesity: CODE(S): E66.9 - Obesity, unspecified QUALIFIERS: Obesity type: unspecified obesity type Obesity classification: adult class 2 (BMI 35 - 39.9) Serious obesity comorbidity presence: with serious comorbidity Body mass index: BMI 37.0-37.9 Qualified Code(s): E66.01 - Morbid (severe) obesity due to excess calories; Z68.37 - Body mass index [BMI] 37.0-37.9, adult (5) Venous stasis dermatitis: CODE(S): I87.2 - Venous insufficiency (chronic) (peripheral) QUALIFIERS: Laterality: bilateral Qualified Code(s): I87.2 - Venous insufficiency (chronic) (peripheral) (6) Lymphedema of both lower extremities: CODE(S): I89.0 - Lymphedema, not elsewhere classified (7) Type 2 diabetes mellitus: CODE(S): E11.9 - Type 2 diabetes mellitus without complications QUALIFIERS: Diabetes mellitus complication status: with kidney complications Diabetes mellitus complication detail: with chronic kidney disease Diabetes mellitus nursing home insulin use: with nursing home use Chronic kidney disease stage: on chronic dialysis Qualified Code(s): E11.22 - Type 2 diabetes mellitus with diabetic chronic kidney disease; N18.6 - End stage renal disease; Z79.4 - [facility] (current) use of insulin; Z99.2 - Dependence on renal dialysis (8) Chronic kidney disease with end stage 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: CODE(S): N18.6 - End stage renal disease; Z99.2 - Dependence on renal dialysis PLAN: Mr. Russell's legs have lymphedema and chronic stasis dermatitis with recurrent ulcer of his left lateral lower leg. His ulcers of his right leg remained healed. Left lateral LE ulcer is improving. Will continue to dress his ulcers of his left lateral LE and great toe webspace with Aquacel extra M,W,F. His petechial lesions are healing. He has decreased edema today bilaterally. He is on warfarin for DVT left LE. Dr. Adrian will continue to monitor his INR/warfarin therapy. His recent labs have been reviewed. Encouraged adequate protein intake. Vascular testing ordered due to concerns for underlying siginificant PAD given his DM and heart disease and h/o smoking. Venous studies showed DVT. Arterial studies postponed for 1 month due to DVT. He was advised to use zinc oxide or triamcinolone cream to his legs once daily to help with his dermatitis. Will plan on returning to maintenance control of his edema with KRUNAL wraps. He was advised to use his compression pumps twice daily and be vigilant with elevating his legs to avoid worsening of his edema which causes the cellulitis and ulcers. Call with worsening pain, drainage or odor. F/U in 1 week.
== END 2020-10-09 23:59 ==
LOC: WC 10:00
PROVIDERS: PCP Family Medicine; Referring Provider Family Medicine; Visit Provider Family Medicine
DX: E11.622 Type 2 diabetes mellitus with other skin ulcer (principal); R23.3 Spontaneous ecchymoses; I89.0 Lymphedema, not elsewhere classified; L97.822 Non-pressure chronic ulcer of other part of left lower leg with fat layer exposed; L97.812 Non-pressure chronic ulcer of other part of right lower leg with fat layer exposed; E66.01 Morbid (severe) obesity due to excess calories; Z68.37 Body mass index [BMI] 37.0-37.9, adult; N18.6 End stage renal disease; E11.22 Type 2 diabetes mellitus with diabetic chronic kidney disease; Z99.2 Dependence on renal dialysis; I87.2 Venous insufficiency (chronic) (peripheral); E11.51 Type 2 diabetes mellitus with diabetic peripheral angiopathy without gangrene; Z87.891 Personal history of nicotine dependence; I51.9 Heart disease, unspecified; R60.0 Localized edema
CPT/HCPCS: 11042

== ENCOUNTER 2020-11-03 10:00 | Outpatient (RCR) | payer MEDICARE, OTHER, SELFPAY ==
[2020-10-10 00:28] VITALS: BP 102/42; PULSE 100; RESP 18; TEMP 36.8; BMI 37.3
[2020-10-13 10:12] VITALS: BP 92/43; PULSE 99; RESP 18; TEMP 36.2; BMI 37.3
--- NOTE | 2020-10-13 14:23 | PN.PCM_ITS ---
History of Present Illness Date of Service: 10/13/20 Chief Complaint: left lower extremity ulcer, cellulitis and edema b/l LE History of Wound: Mr. Russell is a 70 yo gentelman well-known to the wound center who presents due to new (recurrent) left lower extremity ulcer. Said to have started about a week ago. He initially noted increased fluid drainage and increased swelling and then erythema. His HH nurse was concerned regarding the appearance of the left lateral leg and it began draining more and his dialysis nurses were also concerned. He also has petechial appearing spots on his toes, and feet b/l but none of his upper extremities or more proximally. Denies chills, fever or otherwise feeling of unwell. He is on chronic dialysis and uses compression pumps to manage his edema. He recently underwent surgery for fistula placement for dialysis. He reports that his edema has been better than it has been in the past but has had scaling and drainage to his skin which had resolved when he was using UNNA boots when he was here last. He applies Eucerin, zinc oxide to his legs but this has not helped the scaling recently of his left leg. His left leg remains more swollen than his right and has significant keratosis. Progress of Wound: His left LE ulcer continues to improve slightly. He has a small area of skin breakdown between his left great toe and second toe but this is healed. Objective Data Objective Data Vital Signs: Vital Signs Temp Pulse Resp BP 97.2 F L 99 18 92/43 L 10/13/20 10:12 10/13/20 10:12 10/13/20 10:12 10/13/20 10:12 Weight: 117.934 kg Body Mass Index (BMI) 37.3 Physical Exam Const alert, oriented x3 and no apparent distress HEENT normocephalic and head/scalp atraumatic Resp normal respiratory effort and normal air movement Cardio regular rate and regular rhythm Extremity General Extremity: edema bilateral lower extremity Details: moderate Skin General Skin Exam: crusts, dry skin, erythema, lichenification, venous stasis and dermatitis Wounds: wounds noted Wound Narrative: as in clinical panel Psych mental status grossly normal, thought process normal, cooperative and affect normal Debridement Note Debridement Note Post-Debridement Measurements and Additional Note: Post-Debridement Measurements/Treatment WC - Nurse 1 - General Ulcer Assessment Start: 10/13/20 09:51 Freq: Status: Active Protocol: WC.LOWEXT Activity Type Activity Date Activity User E-Sign Co-Sign Detail Recorded Client Recorded Date Recorded By Document 10/13/20 10:12 RB [id number] 10/13/20 10:22 10/13/20 10:12 - Today's Visit Information Type of service Follow-up Visit (Physician/FURNACE LINER ) Arrival Mode Ambulatory Transfer Assistance None Patient Identification Verified (Name & Yes ) Patient Requires Transmission-Based No Precautions Height and Weight Body Mass Index (BMI) 37.3 BMI Classification Obese Vital Signs Temperature (97.8 F-99.1 F) 97.2 F L Temperature Source Temporal Pulse Rate (60-100) 99 Pulse Location Monitor Respiratory Rate (12-18) 18 Respiratory rate source Observation Blood Pressure (90/60-120/80) 92/43 L Blood Pressure Mean (mm Hg) 59 Source Monitor Position Semi-Fowlers Blood Pressure Location Left Arm History Since Last Visit- (Skip if this is Patient's initial visit) Have you changed medications since your No last visit? Any new allergies or adverse reactions No Had a fall/change in ADL's that may No increase risk of falls Signs or symptoms of abuse and/or No neglect since last visit Have you been in the hospital since your No last visit? Has dressing in place as prescribed Yes Has compression in place as prescribed No Has offloadiing in place as prescribed No Experienced any changes in pain level or No management Left Footwear Diabetic Shoe Right Footwear Diabetic Shoe Pain Scale: 0-10 Numeric Is Patient Pain Free? Yes - Nurse 1 - General Ulcer Measurement Start: 10/13/20 09:51 Freq: Status: Active Protocol: Activity Type Activity Date Activity User E-Sign Co-Sign Detail Recorded Client Recorded Date Recorded By Document 10/13/20 10:12 ISMAEL [id number] 10/13/20 10:22 10/13/20 10:12 Wound Center Nurse 1 #23 LEFT GREAT TOE WEB SPACE -Combined with other wound No -Current Size (cm) - Length 0.1 -Current Size (cm) - Width 0.1 -Current Size (cm) - Depth 0.1 -Total Square Cm 0.01 -Tunneling No -Undermining/Tunneling No -Circular Undermining No -Exudate Amt Small -Exudate Type Serosanguineous -Wound Margin Flat & Intact -Granulation Amt Medium (34-66%) -Granulation Quality [place] -Slough/Fibrin Yes -Necrosis Amt Small (1-33%) -Necrotic Tissue Type Adherent Slough -Structure Exposed N/A -Texture (Jaylyn-wound Skin Appearance) Assessed -Moisture (Jaylyn-wound Skin Appearance) Assessed,Dry/ Scaly -Color (Jaylyn-wound Skin Appearance) Assessed -Temperature (Jaylyn-wound Skin No Abnormality Appearance) (Pt Warm) -Tenderness on Palpation (Jaylyn-wound No Skin Appearance) -Ulcer Cleansing Wound Cleanser -Foul Odor after Cleansing No -Anesthetic Used 4% Lidocaine Solution #19 Left Lateral LE -Combined with other wound No -Current Size (cm) - Length 0.1 -Current Size (cm) - Width 0.1 -Current Size (cm) - Depth 0.1 -Total Square Cm 0.01 -Tunneling No -Undermining/Tunneling No -Circular Undermining No -Exudate Amt Small -Exudate Type Serosanguineous -Wound Margin Flat & Intact -Granulation Amt Medium (34-66%) -Granulation Quality [place] -Slough/Fibrin Yes -Necrosis Amt Small (1-33%) -Necrotic Tissue Type Adherent Slough -Structure Exposed N/A -Texture (Jaylyn-wound Skin Appearance) Assessed -Moisture (Jaylyn-wound Skin Appearance) Dry/Scaly -Color (Jaylyn-wound Skin Appearance) Assessed -Temperature (Jaylyn-wound Skin No Abnormality Appearance) (Pt Warm) -Tenderness on Palpation (Jaylyn-wound No Skin Appearance) -Ulcer Cleansing Wound Cleanser -Foul Odor after Cleansing No -Anesthetic Used 4% Lidocaine Solution Lower Limb Edema Present Yes Right Calf (cm) 45 Right Ankle (cm) 30 WC - Nurse 2 - General Ulcer CM Notes Start: 10/13/20 09:51 Freq: Status: Active Protocol: Activity Type Activity Date Activity User E-Sign Co-Sign Detail Recorded Client Recorded Date Recorded By Document 10/13/20 10:32 MW [id number] 10/13/20 10:38 MW 10/13/20 10:32 Wound Center Nurse 2 #23 LEFT GREAT TOE WEB SPACE -Time 10:33 -Correct Patient Yes -Correct Side, Site, Position Yes -Correct Procedure Yes -Procedure Performed No -Post Debridement (cm) - Length 0 -Post Debridement (cm) - Width 0 -Post Debridement (cm) - Depth 0 -Total Square (Post) (cm) 0 -Wound/Ulcer Outcome Healed- Epithelialized #19 Left Lateral LE -Time 10:37 -Correct Patient Yes -Correct Side, Site, Position Yes -Correct Procedure Yes -Procedure Performed Yes -Type of Procedure Debridement -Clinical Debridement Subcutaneous -Tissue Removed Subcutaneous -Post Debridement (cm) - Length 0.6 -Post Debridement (cm) - Width 0.4 -Post Debridement (cm) - Depth 0.3 -Total Square (Post) (cm) 0.24 -Area of Debridement (cm) - Length 0.6 -Area of Debridement (cm) - Width 0.4 -Total Square (Area) (cm) 0.24 -Tunneling No -Undermining/Tunneling No -Circular Undermining No -Wound/Ulcer Outcome Not Healed -Ulcer Cleansing Rinsed/ Irrigated with Saline -Foul Odor after Cleansing No -Bioengineered Tissue No -Bleeding Controlled with Pressure -Offloading No -Treatment Response Procedure Tolerated Well -Debridement - Subq, 1st 20sq cm Yes Pain Scale: 0-10 Numeric Is Patient Pain Free? Yes - Nurse 3 - General Ulcer D/C NN Start: 10/13/20 09:51 Freq: Status: Active Protocol: Activity Type Activity Date Activity User E-Sign Co-Sign Detail Recorded Client Recorded Date Recorded By Document 10/13/20 10:38 MW [id number] 10/13/20 10:39 MW 10/13/20 10:38 Wound Care Nurse 3 #19 Left Lateral LE -Ulcer Cleansing Rinsed/ Irrigated with Saline -Foul Odor after Cleansing No -Negative Pressure Wound Therapy N/A -Primary Dressing Applied Aquacel Extra -Primary Dressing Covered/Secured with Dry Gauze & Roll Gauze, Secured with Tape -Other Covering ABD -Aquacel Extra 1 Treatment Response Procedure Tolerated Well Pain Scale: 0-10 Numeric Is Patient Pain Free? Yes Teaching: Wound Center Compression Wraps & Stockings -Person Taught Patient -Teaching Method Discussion -Response to teaching Verbalize understanding Dressing Your Wound -Person Taught Patient -Teaching Method Discussion -Response to teaching Verbalize understanding WC - Visit Discharge Discharge Condition Stable Ambulatory Status Ambulatory, Walker Transportation [facility] Medication Reconcilliation completed & No provided to patient/care provider Clinical Summary of Care Provided Yes Wound debrided: left great toe web space Laterality: Left Patient tolerated procedure: Patient tolerated procedure well No debridement was completed: No debridement was completed today Additional Wound Wound debrided: left lateral LE Laterality: Left Type of Debridement: Selective debridement Anesthesia Used: 4% Lidocaine Solution Depth: Down to and including healthy tissue and in the subcutaneous layer Percentage of wound debrided: 100 Instrument Used: 3mm curette Tissue Removed: Yellow slough, devitalized tissue Severity: Fat Layer Exposed Amount of bleeding with debridement: Mild Bleeding Controlled with: Compression and gauze Patient tolerated procedure: Patient tolerated procedure well Assessment/Plan Assessment/Plan (1) Deep vein thrombosis (DVT) of left lower extremity: CODE(S): I82.402 - Acute embolism and thrombosis of unspecified deep veins of left lower extremity QUALIFIERS: Affected thrombotic vein of extremity: calf muscle vein Chronicity: acute Qualified Code(s): I82.462 - Acute embolism and thrombosis of left calf muscular vein (2) Ulcer of left lower extremity with fat layer exposed: CODE(S): L97.922 - Non-pressure chronic ulcer of unspecified part of left lower leg with fat layer exposed (3) Ulcer of left foot: CODE(S): L97.529 - Non-pressure chronic ulcer of other part of left foot with unspecified severity QUALIFIERS: Non-pressure ulcer stage: limited to breakdown of skin Qualified Code(s): L97.521 - Non-pressure chronic ulcer of other part of left foot limited to breakdown of skin (4) Chronic acquired lymphedema: CODE(S): I89.0 - Lymphedema, not elsewhere classified (5) Stage 3 severe COPD by GOLD classification: CODE(S): J44.9 - Chronic obstructive pulmonary disease, unspecified (6) Nonrheumatic aortic (valve) stenosis: CODE(S): I35.0 - Nonrheumatic aortic (valve) stenosis (7) Chronic kidney disease with end stage 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: CODE(S): N18.6 - End stage renal disease; Z99.2 - Dependence on renal dialysis (8) Lymphedema of both lower extremities: CODE(S): I89.0 - Lymphedema, not elsewhere classified (9) Type 2 diabetes mellitus: CODE(S): E11.9 - Type 2 diabetes mellitus without complications QUALIFIERS: Diabetes mellitus complication status: with kidney complications Diabetes mellitus complication detail: with chronic kidney disease Diabetes mellitus fdc insulin use: with fdc use Chronic kidney disease stage: on chronic dialysis Qualified Code(s): E11.22 - Type 2 diabetes mellitus with diabetic chronic kidney disease; N18.6 - End stage renal disease; Z79.4 - long term care pharmacist (current) use of insulin; Z99.2 - Dependence on renal dialysis PLAN: Mr. Russell's legs have lymphedema and chronic stasis dermatitis with recurrent ulcer of his left lateral lower leg. His ulcers of his right leg remained healed. Left lateral LE ulcer is improving. Will continue to dress his ulcers of his left lateral LE with Aquacel extra M,W,F. His petechial lesions are healing. He has decreased edema today bilaterally. He is on warfarin for DVT left LE. Dr. Adrian will continue to monitor his INR/warfarin therapy. His recent labs have been reviewed. Encouraged adequate protein intake. Vascular testing ordered due to concerns for underlying siginificant PAD given his DM and heart disease and h/o smoking. Venous studies showed DVT. Arterial studies postponed for 1 month due to DVT. He was advised to use zinc oxide or triamcinolone cream to his legs once daily to help with his dermatitis. Will plan on returning to maintenance control of his edema with PHUC wraps. He was advised to use his compression pumps twice daily and be vigilant with elevating his legs to avoid worsening of his edema which causes the cellulitis and ulcers. Call with worsening pain, drainage or odor. F/U in 1 week.
[2020-10-20 08:26] VITALS: BP 98/41; PULSE 102; RESP 22; TEMP 36.5; BMI 37.3
--- NOTE | 2020-10-20 09:47 | PN.PCM_ITS ---
History of Present Illness Date of Service: 10/20/20 Chief Complaint: left lower extremity ulcer, cellulitis and edema b/l LE History of Wound: Mr. Russell is a 70 yo gentelman well-known to the wound center who presents due to new (recurrent) left lower extremity ulcer. Said to have started about a week ago. He initially noted increased fluid drainage and increased swelling and then erythema. His HH nurse was concerned regarding the appearance of the left lateral leg and it began draining more and his dialysis nurses were also concerned. He also has petechial appearing spots on his toes, and feet b/l but none of his upper extremities or more proximally. Denies chills, fever or otherwise feeling of unwell. He is on chronic dialysis and uses compression pumps to manage his edema. He recently underwent surgery for fistula placement for dialysis. He reports that his edema has been better than it has been in the past but has had scaling and drainage to his skin which had resolved when he was using UNNA boots when he was here last. He applies Eucerin, zinc oxide to his legs but this has not helped the scaling recently of his left leg. His left leg remains more swollen than his right and has significant keratosis. Progress of Wound: His left LE ulcer continues to improve slightly. He has a small area of skin breakdown on his right second toe with eschar. His PCP ordered venous duplex and showed resolution of his DVT and his coumadin was disc ontinued this week. Objective Data Objective Data Vital Signs: Vital Signs Temp Pulse Resp BP 97.7 F L 102 H 22 H 98/41 L 10/20/20 08:26 10/20/20 08:26 10/20/20 08:26 10/20/20 08:26 Weight: 117.934 kg Body Mass Index (BMI) 37.3 Physical Exam Const alert, oriented x3 and no apparent distress HEENT normocephalic and head/scalp atraumatic Resp normal respiratory effort and normal air movement Cardio regular rate and regular rhythm Extremity General Extremity: edema bilateral lower extremity Details: moderate Skin General Skin Exam: crusts, dry skin, erythema, lichenification, venous stasis and dermatitis Wounds: wounds noted Wound Narrative: as in clinical panel Psych mental status grossly normal, thought process normal, cooperative and affect normal Debridement Note Debridement Note Post-Debridement Measurements and Additional Note: Post-Debridement Measurements/Treatment WC - Nurse 1 - General Ulcer Assessment Start: 10/13/20 09:51 Freq: Status: Active Protocol: JATIN Activity Type Activity Date Activity User E-Sign Co-Sign Detail Recorded Client Recorded Date Recorded By Document 10/13/20 10:12 RB [id number] 10/13/20 10:22 RB Document 10/20/20 08:26 DL [id number] 10/20/20 08:34 DL 10/13/20 10/20/20 10:12 08:26 WC - Today's Visit Information Type of service Follow-up Visit Follow-up Visit (Physician/JIG BUILDER (Physician/JIG BUILDER ) ) Arrival Mode Ambulatory Ambulatory, Walker Transfer Assistance None None Patient Identification Verified (Name & Yes Yes ) Patient Requires Transmission-Based No No Precautions Finger Stick Blood Sugar(mg/dl) (if 120 indicated): Blood Sugar Stated by Patient Height and Weight Body Mass Index (BMI) 37.3 37.3 BMI Classification Obese Obese Vital Signs Temperature (97.8 F-99.1 F) 97.2 F L 97.7 F L Temperature Source Temporal Temporal Pulse Rate (60-100) 99 102 H Pulse Location Monitor Monitor Respiratory Rate (12-18) 18 22 H Respiratory rate source Observation Observation Blood Pressure (90/60-120/80) 92/43 L 98/41 L Blood Pressure Mean (mm Hg) 59 60 Source Monitor Monitor Position Semi-Fowlers Blood Pressure Location Left Arm History Since Last Visit- (Skip if this is Patient's initial visit) Have you changed medications since your No No last visit? Any new allergies or adverse reactions No No Had a fall/change in ADL's that may No No increase risk of falls Signs or symptoms of abuse and/or No neglect since last visit Have you been in the hospital since your No No last visit? Has dressing in place as prescribed Yes Yes Has compression in place as prescribed No Yes Has offloadiing in place as prescribed No Yes Experienced any changes in pain level or No No management Left Footwear Diabetic Shoe Custom Shoe Right Footwear Diabetic Shoe Custom Shoe Pain Scale: 0-10 Numeric Is Patient Pain Free? Yes Yes MAXX - Nurse 1 - General Ulcer Measurement Start: 10/13/20 09:51 Freq: Status: Active Protocol: Activity Type Activity Date Activity User E-Sign Co-Sign Detail Recorded Client Recorded Date Recorded By Document 10/13/20 10:12 RB [id number] 10/13/20 10:22 RB Document 10/20/20 08:26 DL [id number] 10/20/20 08:34 DL 10/13/20 10/20/20 10:12 08:26 Wound Center Nurse 1 #23 LEFT GREAT TOE WEB SPACE -Combined with other wound No -Current Size (cm) - Length 0.1 -Current Size (cm) - Width 0.1 -Current Size (cm) - Depth 0.1 -Total Square Cm 0.01 -Tunneling No -Undermining/Tunneling No -Circular Undermining No -Exudate Amt Small -Exudate Type Serosanguineous -Wound Margin Flat & Intact -Granulation Amt Medium (34-66%) -Granulation Quality Haystack -Slough/Fibrin Yes -Necrosis Amt Small (1-33%) -Necrotic Tissue Type Adherent Slough -Structure Exposed N/A -Texture (Jaylyn-wound Skin Appearance) Assessed -Moisture (Jaylyn-wound Skin Appearance) Assessed,Dry/ Scaly -Color (Jaylyn-wound Skin Appearance) Assessed -Temperature (Jaylyn-wound Skin No Abnormality Appearance) (Pt Warm) -Tenderness on Palpation (Jaylyn-wound No Skin Appearance) -Ulcer Cleansing Wound Cleanser -Foul Odor after Cleansing No -Anesthetic Used 4% Lidocaine Solution #19 Left Lateral LE -Combined with other wound No -Current Size (cm) - Length 0.1 0.5 -Current Size (cm) - Width 0.1 0.4 -Current Size (cm) - Depth 0.1 0.4 -Total Square Cm 0.01 0.20 -Photo Taken No -Tunneling No -Undermining/Tunneling No -Circular Undermining No -Exudate Amt Small None Present -Exudate Type Serosanguineous -Wound Margin Flat & Intact Flat & Intact -Granulation Amt Medium (34-66%) Large (67-100%) -Granulation Quality Haystack Haystack -Slough/Fibrin Yes -Necrosis Amt Small (1-33%) Small (1-33%) -Necrotic Tissue Type Adherent Slough Adherent Slough -Structure Exposed N/A N/A -Texture (Jaylyn-wound Skin Appearance) Assessed Friable, Scarring -Moisture (Jaylyn-wound Skin Appearance) Dry/Scaly Dry/Scaly -Color (Jaylyn-wound Skin Appearance) Assessed Hemosiderin Staining -Temperature (Jaylyn-wound Skin No Abnormality No Abnormality Appearance) (Pt Warm) (Pt Warm) -Tenderness on Palpation (Jaylyn-wound No No Skin Appearance) -Ulcer Cleansing Wound Cleanser Wound Cleanser -Foul Odor after Cleansing No No -Anesthetic Used 4% Lidocaine 4% Lidocaine Solution Solution Lower Limb Edema Present Yes Right Calf (cm) 45 41 Right Ankle (cm) 30 27.5 Left Calf (cm) 45 Left Ankle (cm) 31 WC - Nurse 2 - General Ulcer CM Notes Start: 10/13/20 09:51 Freq: Status: Active Protocol: Activity Type Activity Date Activity User E-Sign Co-Sign Detail Recorded Client Recorded Date Recorded By Document 10/13/20 10:32 MW [id number] 10/13/20 10:38 MW Document 10/20/20 09:20 MW [id number] 10/20/20 09:26 MW 10/13/20 10/20/20 10:32 09:20 Wound Center Nurse 2 #23 LEFT GREAT TOE WEB SPACE -Time 10:33 -Correct Patient Yes -Correct Side, Site, Position Yes -Correct Procedure Yes -Procedure Performed No -Post Debridement (cm) - Length 0 -Post Debridement (cm) - Width 0 -Post Debridement (cm) - Depth 0 -Total Square (Post) (cm) 0 -Wound/Ulcer Outcome Healed- Epithelialized #19 Left Lateral LE -Time 10:37 09:20 -Correct Patient Yes Yes -Correct Side, Site, Position Yes Yes -Correct Procedure Yes Yes -Procedure Performed Yes Yes -Type of Procedure Debridement Debridement -Clinical Debridement Subcutaneous Subcutaneous -Tissue Removed Subcutaneous Subcutaneous -Post Debridement (cm) - Length 0.6 0.5 -Post Debridement (cm) - Width 0.4 0.4 -Post Debridement (cm) - Depth 0.3 0.3 -Total Square (Post) (cm) 0.24 0.20 -Area of Debridement (cm) - Length 0.6 0.5 -Area of Debridement (cm) - Width 0.4 0.4 -Total Square (Area) (cm) 0.24 0.20 -Tunneling No No -Undermining/Tunneling No No -Circular Undermining No No -Wound/Ulcer Outcome Not Healed Not Healed -Ulcer Cleansing Rinsed/ Rinsed/ Irrigated with Irrigated with Saline Saline -Foul Odor after Cleansing No No -Bioengineered Tissue No No -Bleeding Controlled with Pressure Pressure -Offloading No No -Treatment Response Procedure Procedure Tolerated Well Tolerated Well -Debridement - Subq, 1st 20sq cm Yes Yes Pain Scale: 0-10 Numeric Is Patient Pain Free? Yes Yes - Nurse 3 - General Ulcer D/C NN Start: 10/13/20 09:51 Freq: Status: Active Protocol: Activity Type Activity Date Activity User E-Sign Co-Sign Detail Recorded Client Recorded Date Recorded By Document 10/13/20 10:38 MW [id number] 10/13/20 10:39 MW 10/13/20 10:38 Wound Care Nurse 3 #19 Left Lateral LE -Ulcer Cleansing Rinsed/ Irrigated with Saline -Foul Odor after Cleansing No -Negative Pressure Wound Therapy N/A -Primary Dressing Applied Aquacel Extra -Primary Dressing Covered/Secured with Dry Gauze & Roll Gauze, Secured with Tape -Other Covering ABD -Aquacel Extra 1 Treatment Response Procedure Tolerated Well Pain Scale: 0-10 Numeric Is Patient Pain Free? Yes Teaching: Wound Center Compression Wraps & Stockings -Person Taught Patient -Teaching Method Discussion -Response to teaching Verbalize understanding Dressing Your Wound -Person Taught Patient -Teaching Method Discussion -Response to teaching Verbalize understanding WC - Visit Discharge Discharge Condition Stable Ambulatory Status Ambulatory, Walker Transportation [facility] Medication Reconcilliation completed & No provided to patient/care provider Clinical Summary of Care Provided Yes Wound debrided: left lateral LE Laterality: Left Type of Debridement: Selective debridement Anesthesia Used: 4% Lidocaine Solution Depth: in the subcutaneous layer Percentage of wound debrided: 100 Instrument Used: - (gauze) Tissue Removed: Yellow slough, devitalized tissue Severity: Fat Layer Exposed Amount of bleeding with debridement: Mild Bleeding Controlled with: Compression and gauze Patient tolerated procedure: Patient tolerated procedure well Additional Wound Wound debrided: right second toe Laterality: Right Wound Grade/Stage: Espionza grade 1 Type of Debridement: Selective debridement Anesthesia Used: 4% Lidocaine Solution Depth: Down to and including healthy tissue and in the subcutaneous layer Percentage of wound debrided: 100 Instrument Used: - (gauze) Tissue Removed: Yellow slough, devitalized tissue Severity: Fat Layer Exposed Amount of bleeding with debridement: Mild Bleeding Controlled with: Compression and gauze Patient tolerated procedure: Patient tolerated procedure well Assessment/Plan Assessment/Plan (1) Deep vein thrombosis (DVT) of left lower extremity: CODE(S): I82.402 - Acute embolism and thrombosis of unspecified deep veins of left lower extremity QUALIFIERS: Affected thrombotic vein of extremity: calf muscle vein Chronicity: acute Qualified Code(s): I82.462 - Acute embolism and thrombosis of left calf muscular vein (2) Ulcer of left lower extremity with fat layer exposed: CODE(S): L97.922 - Non-pressure chronic ulcer of unspecified part of left lower leg with fat layer exposed (3) Ulcer of left foot: CODE(S): L97.529 - Non-pressure chronic ulcer of other part of left foot with unspecified severity QUALIFIERS: Non-pressure ulcer stage: limited to breakdown of skin Qualified Code(s): L97.521 - Non-pressure chronic ulcer of other part of left foot limited to breakdown of skin (4) Chronic acquired lymphedema: CODE(S): I89.0 - Lymphedema, not elsewhere classified (5) Stage 3 severe COPD by GOLD classification: CODE(S): J44.9 - Chronic obstructive pulmonary disease, unspecified (6) Nonrheumatic aortic (valve) stenosis: CODE(S): I35.0 - Nonrheumatic aortic (valve) stenosis (7) Chronic kidney disease with end stage 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: CODE(S): N18.6 - End stage renal disease; Z99.2 - Dependence on renal dialysis (8) Lymphedema of both lower extremities: CODE(S): I89.0 - Lymphedema, not elsewhere classified (9) Type 2 diabetes mellitus: CODE(S): E11.9 - Type 2 diabetes mellitus without complications QUALIFIERS: Chronic kidney disease stage: on chronic dialysis Diabetes mellitus complication detail: with chronic kidney disease Diabetes mellitus complication status: with kidney complications Diabetes mellitus remote computer terminal operator insulin use: with remote computer terminal operator use Qualified Code(s): E11.22 - Type 2 diabetes mellitus with diabetic chronic kidney disease; N18.6 - End stage renal disease; Z79.4 - care home (current) use of insulin; Z99.2 - Dependence on renal dialysis PLAN: Mr. Russell's legs have lymphedema and chronic stasis dermatitis with recurrent ulcer of his left lateral lower leg. He has a new ulcer of his right second toe. Left lateral LE ulcer is improving. Will continue to dress his ulcer of his left lateral LE and right second toe with Aquacel extra M,W,F. Will add venous stasis pad to his left lateral LE ulcer. His petechial lesions are healing. He has decreased edema today bilaterally. His recent labs have been reviewed. Encouraged adequate protein intake. Vascular testing ordered due to concerns for underlying significant PAD given his DM and heart disease and h/o smoking. Venous studies show resolution of his DVT. Arterial studies postponed for November due to DVT. He was advised to use zinc oxide or triamcinolone cream to his legs once daily to help with his dermatitis. Will plan on returning to maintenance control of his edema with PHUC wraps. He was advised to use his compression pumps twice daily and be vigilant with elevating his legs to avoid worsening of his edema which causes the cellulitis and ulcers. Call with worsening pain, drainage or odor. F/U in 2 weeks.
[2020-11-03 10:27] VITALS: BP 93/44; PULSE 98; RESP 18; TEMP 36.6; BMI 37.3
--- NOTE | 2020-11-03 13:42 | PN.PCM_ITS ---
History of Present Illness Date of Service: 11/03/20 Chief Complaint: left lower extremity ulcer, cellulitis and edema b/l LE History of Wound: Mr. Russell is a 70 yo gentelman well-known to the wound center who presents due to new (recurrent) left lower extremity ulcer. Said to have started about a week ago. He initially noted increased fluid drainage and increased swelling and then erythema. His HH nurse was concerned regarding the appearance of the left lateral leg and it began draining more and his dialysis nurses were also concerned. He also has petechial appearing spots on his toes, and feet b/l but none of his upper extremities or more proximally. Denies chills, fever or otherwise feeling of unwell. He is on chronic dialysis and uses compression pumps to manage his edema. He recently underwent surgery for fistula placement for dialysis. He reports that his edema has been better than it has been in the past but has had scaling and drainage to his skin which had resolved when he was using UNNA boots when he was here last. He applies Eucerin, zinc oxide to his legs but this has not helped the scaling recently of his left leg. His left leg remains more swollen than his right and has significant keratosis. Progress of Wound: His left LE ulcer continues to improve slightly. His PCP ordered venous duplex and showed resolution of his DVT and his coumadin was discontinued this week. Objective Data Objective Data Vital Signs: Vital Signs Temp Pulse Resp BP 97.8 F 98 18 93/44 L 11/03/20 10:27 11/03/20 10:27 11/03/20 10:27 11/03/20 10:27 Weight: 117.934 kg Body Mass Index (BMI) 37.3 Physical Exam Const alert, oriented x3 and no apparent distress HEENT normocephalic and head/scalp atraumatic Resp normal respiratory effort and normal air movement Cardio regular rate and regular rhythm Extremity General Extremity: edema bilateral lower extremity Details: moderate Skin General Skin Exam: crusts, dry skin, erythema, lichenification, venous stasis and dermatitis Wounds: wounds noted Wound Narrative: as in clinical panel Psych mental status grossly normal, thought process normal, cooperative and affect normal Debridement Note Debridement Note Post-Debridement Measurements and Additional Note: Post-Debridement Measurements/Treatment WC - Nurse 1 - General Ulcer Assessment Start: 10/13/20 09:51 Freq: Status: Active Protocol: WC.LOWEXT Activity Type Activity Date Activity User E-Sign Co-Sign Detail Recorded Client Recorded Date Recorded By Document 10/13/20 10:12 RB [id number] 10/13/20 10:22 RB Document 10/20/20 08:26 DL [id number] 10/20/20 08:34 DL Document 11/03/20 10:27 RB [id number] 11/03/20 10:31 RB 10/13/20 10/20/20 11/03/20 10:12 08:26 10:27 WC - Today's Visit Information Type of service Follow-up Visit Follow-up Visit Follow-up Visit (Physician/ENVIRONMENTAL SCIENCE TECHNICIAN (Physician/ENVIRONMENTAL SCIENCE TECHNICIAN (Physician/ENVIRONMENTAL SCIENCE TECHNICIAN ) ) ) Arrival Mode Ambulatory Ambulatory, Ambulatory, Walker Walker Transfer Assistance None None None Patient Identification Verified (Name & Yes Yes Yes ) Patient Requires Transmission-Based No No No Precautions Finger Stick Blood Sugar(mg/dl) (if 120 indicated): Blood Sugar Stated by Patient Height and Weight Body Mass Index (BMI) 37.3 37.3 37.3 BMI Classification Obese Obese Obese Vital Signs Temperature (97.8 F-99.1 F) 97.2 F L 97.7 F L 97.8 F Temperature Source Temporal Temporal Temporal Pulse Rate (60-100) 99 102 H 98 Pulse Location Monitor Monitor Monitor Respiratory Rate (12-18) 18 22 H 18 Respiratory rate source Observation Observation Observation Blood Pressure (90/60-120/80) 92/43 L 98/41 L 93/44 L Blood Pressure Mean (mm Hg) 59 60 60 Source Monitor Monitor Monitor Position Semi-Fowlers Semi-Fowlers Blood Pressure Location Left Arm Left Arm History Since Last Visit- (Skip if this is Patient's initial visit) Have you changed medications since your No No No last visit? Any new allergies or adverse reactions No No No Had a fall/change in ADL's that may No No No increase risk of falls Signs or symptoms of abuse and/or No No neglect since last visit Have you been in the hospital since your No No No last visit? Has dressing in place as prescribed Yes Yes Yes Has compression in place as prescribed No Yes Yes Has offloadiing in place as prescribed No Yes No Experienced any changes in pain level or No No No management Left Footwear Diabetic Shoe Custom Shoe Regular Shoe Right Footwear Diabetic Shoe Custom Shoe Regular Shoe Pain Scale: 0-10 Numeric Is Patient Pain Free? Yes Yes Yes WC - Nurse 1 - General Ulcer Measurement Start: 10/13/20 09:51 Freq: Status: Active Protocol: Activity Type Activity Date Activity User E-Sign Co-Sign Detail Recorded Client Recorded Date Recorded By Document 10/13/20 10:12 RB [id number] 10/13/20 10:22 RB Document 10/20/20 08:26 DL [id number] 10/20/20 08:34 DL Document 11/03/20 10:27 RB [id number] 11/03/20 10:31 RB 10/13/20 10/20/20 11/03/20 10:12 08:26 10:27 Wound Center Nurse 1 #23 LEFT GREAT TOE WEB SPACE -Combined with other wound No -Current Size (cm) - Length 0.1 -Current Size (cm) - Width 0.1 -Current Size (cm) - Depth 0.1 -Total Square Cm 0.01 -Tunneling No -Undermining/Tunneling No -Circular Undermining No -Exudate Amt Small -Exudate Type Serosanguineous -Wound Margin Flat & Intact -Granulation Amt Medium (34-66%) -Granulation Quality [place] -Slough/Fibrin Yes -Necrosis Amt Small (1-33%) -Necrotic Tissue Type Adherent Slough -Structure Exposed N/A -Texture (Jaylyn-wound Skin Appearance) Assessed -Moisture (Jaylyn-wound Skin Appearance) Assessed,Dry/ Scaly -Color (Jaylyn-wound Skin Appearance) Assessed -Temperature (Jaylyn-wound Skin No Abnormality Appearance) (Pt Warm) -Tenderness on Palpation (Jaylyn-wound No Skin Appearance) -Ulcer Cleansing Wound Cleanser -Foul Odor after Cleansing No -Anesthetic Used 4% Lidocaine Solution #19 Left Lateral LE -Combined with other wound No No -Current Size (cm) - Length 0.1 0.5 0.4 -Current Size (cm) - Width 0.1 0.4 0.4 -Current Size (cm) - Depth 0.1 0.4 0.2 -Total Square Cm 0.01 0.20 0.16 -Photo Taken No -Tunneling No No -Undermining/Tunneling No No -Circular Undermining No No -Exudate Amt Small None Present Medium -Exudate Type Serosanguineous Serosanguineous -Wound Margin Flat & Intact Flat & Intact Thickened & Rolled Under -Granulation Amt Medium (34-66%) Large (67-100%) Medium (34-66%) -Granulation Quality [place] -Slough/Fibrin Yes Yes -Necrosis Amt Small (1-33%) Small (1-33%) Small (1-33%) -Necrotic Tissue Type Adherent Slough Adherent Slough Adherent Slough -Structure Exposed N/A N/A N/A -Texture (Jaylyn-wound Skin Appearance) Assessed Friable, Assessed Scarring -Moisture (Jaylyn-wound Skin Appearance) Dry/Scaly Dry/Scaly Assessed -Color (Jaylyn-wound Skin Appearance) Assessed Hemosiderin Assessed Staining -Temperature (Jaylyn-wound Skin No Abnormality No Abnormality No Abnormality Appearance) (Pt Warm) (Pt Warm) (Pt Warm) -Tenderness on Palpation (Jaylyn-wound No No No Skin Appearance) -Ulcer Cleansing Wound Cleanser Wound Cleanser Wound Cleanser -Foul Odor after Cleansing No No No -Anesthetic Used 4% Lidocaine 4% Lidocaine 5% Lidocaine Solution Solution Gel Lower Limb Edema Present Yes Yes Right Calf (cm) 45 41 40.5 Right Ankle (cm) 30 27.5 28.5 Left Calf (cm) 45 44 Left Ankle (cm) 31 31.3 WC - Nurse 2 - General Ulcer CM Notes Start: 10/13/20 09:51 Freq: Status: Active Protocol: Activity Type Activity Date Activity User E-Sign Co-Sign Detail Recorded Client Recorded Date Recorded By Document 10/13/20 10:32 MW [id number] 10/13/20 10:38 MW Document 10/20/20 09:20 MW [id number] 10/20/20 09:26 MW Document 11/03/20 10:36 MW [id number] 11/03/20 10:52 MW 10/13/20 10/20/20 11/03/20 10:32 09:20 10:36 Wound Center Nurse 2 #25 right 2nd toe -Time 10:46 -Correct Patient Yes -Correct Side, Site, Position Yes -Correct Procedure Yes -Procedure Performed Yes -Type of Procedure Debridement -Clinical Debridement Subcutaneous -Tissue Removed Subcutaneous -Post Debridement (cm) - Length 0.5 -Post Debridement (cm) - Width 0.3 -Post Debridement (cm) - Depth 0.1 -Total Square (Post) (cm) 0.15 -Area of Debridement (cm) - Length 0.5 -Area of Debridement (cm) - Width 0.3 -Total Square (Area) (cm) 0.15 -Tunneling No -Undermining/Tunneling No -Circular Undermining No -Wound/Ulcer Outcome Not Healed -Ulcer Cleansing Rinsed/ Irrigated with Saline -Foul Odor after Cleansing No -Bioengineered Tissue No -Bleeding Controlled with Pressure -Offloading No -Treatment Response Procedure Tolerated Well -Debridement - Subq, 1st 20sq cm No #24 right lateral foot -Time 10:40 -Correct Patient Yes -Correct Side, Site, Position Yes -Correct Procedure Yes -Procedure Performed Yes -Type of Procedure Debridement -Clinical Debridement Subcutaneous -Tissue Removed Subcutaneous -Post Debridement (cm) - Length 0.6 -Post Debridement (cm) - Width 0.2 -Post Debridement (cm) - Depth 0.2 -Total Square (Post) (cm) 0.12 -Area of Debridement (cm) - Length 0.6 -Area of Debridement (cm) - Width 0.2 -Total Square (Area) (cm) 0.12 -Tunneling No -Undermining/Tunneling No -Circular Undermining No -Wound/Ulcer Outcome Not Healed -Ulcer Cleansing Rinsed/ Irrigated with Saline -Foul Odor after Cleansing No -Bioengineered Tissue No -Bleeding Controlled with Pressure -Offloading No -Treatment Response Procedure Tolerated Well -Debridement - Subq, 1st 20sq cm No #23 LEFT GREAT TOE WEB SPACE -Time 10:33 -Correct Patient Yes -Correct Side, Site, Position Yes -Correct Procedure Yes -Procedure Performed No -Post Debridement (cm) - Length 0 -Post Debridement (cm) - Width 0 -Post Debridement (cm) - Depth 0 -Total Square (Post) (cm) 0 -Wound/Ulcer Outcome Healed- Epithelialized #19 Left Lateral LE -Time 10:37 09:20 10:41 -Correct Patient Yes Yes Yes -Correct Side, Site, Position Yes Yes Yes -Correct Procedure Yes Yes Yes -Procedure Performed Yes Yes Yes -Type of Procedure Debridement Debridement Debridement -Clinical Debridement Subcutaneous Subcutaneous Subcutaneous -Tissue Removed Subcutaneous Subcutaneous Subcutaneous -Post Debridement (cm) - Length 0.6 0.5 0.5 -Post Debridement (cm) - Width 0.4 0.4 0.3 -Post Debridement (cm) - Depth 0.3 0.3 0.3 -Total Square (Post) (cm) 0.24 0.20 0.15 -Area of Debridement (cm) - Length 0.6 0.5 0.5 -Area of Debridement (cm) - Width 0.4 0.4 0.3 -Total Square (Area) (cm) 0.24 0.20 0.15 -Tunneling No No No -Undermining/Tunneling No No No -Circular Undermining No No No -Wound/Ulcer Outcome Not Healed Not Healed Not Healed -Ulcer Cleansing Rinsed/ Rinsed/ Rinsed/ Irrigated with Irrigated with Irrigated with Saline Saline Saline -Foul Odor after Cleansing No No No -Bioengineered Tissue No No No -Bleeding Controlled with Pressure Pressure Pressure -Offloading No No No -Treatment Response Procedure Procedure Procedure Tolerated Well Tolerated Well Tolerated Well -Debridement - Subq, 1st 20sq cm Yes Yes Yes Pain Scale: 0-10 Numeric Is Patient Pain Free? Yes Yes Yes WC - Nurse 3 - General Ulcer D/C NN Start: 10/13/20 09:51 Freq: Status: Active Protocol: Activity Type Activity Date Activity User E-Sign Co-Sign Detail Recorded Client Recorded Date Recorded By Document 10/13/20 10:38 MW [id number] 10/13/20 10:39 MW Document 11/03/20 11:23 DL [id number] 11/03/20 11:27 DL 10/13/20 11/03/20 10:38 11:23 Wound Care Nurse 3 #25 right 2nd toe -Ulcer Cleansing Rinsed/ Irrigated with Saline -Foul Odor after Cleansing No -Primary Dressing Applied Promogran -Primary Dressing Covered/Secured with Dry Gauze, Secured with Tape -Other Covering phuc -Promogran 1 #24 right lateral foot -Ulcer Cleansing Rinsed/ Irrigated with Saline -Foul Odor after Cleansing No -Other Dressing promogran -Primary Dressing Covered/Secured with Dry Gauze & Roll Gauze, Secured with Tape #19 Left Lateral LE -Ulcer Cleansing Rinsed/ Rinsed/ Irrigated with Irrigated with Saline Saline -Foul Odor after Cleansing No No -Negative Pressure Wound Therapy N/A -Primary Dressing Applied Aquacel Extra Aquacel Extra -Other Dressing stasis pad -Primary Dressing Covered/Secured with Dry Gauze & Dry Gauze & Roll Gauze, Roll Gauze, Secured with Secured with Tape Tape -Other Covering ABD phuc -Aquacel Extra 1 1 Treatment Response Procedure Procedure Tolerated Well Tolerated Well Pain Scale: 0-10 Numeric Is Patient Pain Free? Yes Yes Teaching: Wound Center Compression Wraps & Stockings -Person Taught Patient -Teaching Method Discussion -Response to teaching Verbalize understanding Dressing Your Wound -Person Taught Patient -Teaching Method Discussion -Response to teaching Verbalize understanding WC - Visit Discharge Discharge Condition Stable Stable Ambulatory Status Ambulatory, Ambulatory, Walker Walker Transportation [facility] Medication Reconcilliation completed & No provided to patient/care provider Clinical Summary of Care Provided Yes Assessment/Plan Assessment/Plan (1) Deep vein thrombosis (DVT) of left lower extremity: CODE(S): I82.402 - Acute embolism and thrombosis of unspecified deep veins of left lower extremity QUALIFIERS: Affected thrombotic vein of extremity: calf muscle vein Chronicity: acute Qualified Code(s): I82.462 - Acute embolism and thrombosis of left calf muscular vein (2) Ulcer of left lower extremity with fat layer exposed: CODE(S): L97.922 - Non-pressure chronic ulcer of unspecified part of left lower leg with fat layer exposed (3) Ulcer of left foot: CODE(S): L97.529 - Non-pressure chronic ulcer of other part of left foot with unspecified severity QUALIFIERS: Non-pressure ulcer stage: limited to breakdown of skin Qualified Code(s): L97.521 - Non-pressure chronic ulcer of other part of left foot limited to breakdown of skin (4) Chronic acquired lymphedema: CODE(S): I89.0 - Lymphedema, not elsewhere classified (5) Stage 3 severe COPD by GOLD classification: CODE(S): J44.9 - Chronic obstructive pulmonary disease, unspecified (6) Nonrheumatic aortic (valve) stenosis: CODE(S): I35.0 - Nonrheumatic aortic (valve) stenosis (7) Chronic kidney disease with end stage 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: CODE(S): N18.6 - End stage renal disease; Z99.2 - Dependence on renal dialysis (8) Lymphedema of both lower extremities: CODE(S): I89.0 - Lymphedema, not elsewhere classified (9) Type 2 diabetes mellitus: CODE(S): E11.9 - Type 2 diabetes mellitus without complications QUALIFIERS: Chronic kidney disease stage: on chronic dialysis Diabetes mellitus complication detail: with chronic kidney disease Diabetes mellitus complication status: with kidney complications Diabetes mellitus alf insulin use: with long wall shear operator use Qualified Code(s): E11.22 - Type 2 diabetes mellitus with diabetic chronic kidney disease; N18.6 - End stage renal disease; Z79.4 - intermediate frame tender (current) use of insulin; Z99.2 - Dependence on renal dialysis PLAN: Mr. Russell's legs have lymphedema and chronic stasis dermatitis with recurrent ulcer of his left lateral lower leg. He has a new ulcer of his right second toe. Left lateral LE ulcer is improving. Will continue to dress his ulcer of his left lateral LE with Aquacel Ag and right second toe with Promogran M,W,F. Will continue venous stasis pad to his left lateral LE ulcer. His petechial lesions are healing. He has decreased edema today bilaterally. His recent labs have been reviewed. Encouraged adequate protein intake. Vascular testing ordered due to concerns for underlying significant PAD given his DM and heart disease and h/o smoking. Venous studies show resolution of his DVT. Arterial studies postponed for November due to DVT. He was advised to use zinc oxide or triamcinolone cream to his legs once daily to help with his dermatitis. Will plan on returning to maintenance control of his edema with PHUC wraps. He was advised to use his compression pumps twice daily and be vigilant with elevating his legs to avoid worsening of his edema which causes the cellulitis and ulcers. Call with worsening pain, drainage or odor. F/U in 3 weeks.
== END 2020-11-08 23:59 ==
LOC: WC 10:00
PROVIDERS: PCP Family Medicine; Referring Provider Family Medicine; Visit Provider Family Medicine
DX: E11.621 Type 2 diabetes mellitus with foot ulcer (principal); L97.522 Non-pressure chronic ulcer of other part of left foot with fat layer exposed; R60.0 Localized edema; R23.3 Spontaneous ecchymoses; Z86.718 Personal history of other venous thrombosis and embolism; I89.0 Lymphedema, not elsewhere classified; J44.9 Chronic obstructive pulmonary disease, unspecified; E11.22 Type 2 diabetes mellitus with diabetic chronic kidney disease; Z99.2 Dependence on renal dialysis; N18.6 End stage renal disease; I87.2 Venous insufficiency (chronic) (peripheral); L97.512 Non-pressure chronic ulcer of other part of right foot with fat layer exposed; I51.9 Heart disease, unspecified; Z87.891 Personal history of nicotine dependence
CPT/HCPCS: 11042

== ENCOUNTER 2020-11-15 07:15 | Day surgery (SDC) | payer MEDICARE, OTHER, SELFPAY ==
[2020-11-08 14:22] VITALS: BMI 37.3
[2020-11-15 07:55] LABS: Hematocrit 31.3 % (40-54); Hemoglobin 9.9 g/dL (13.0-16.5); Mean Corp Hgb Conc 31.6 g/dL (32-36); Mean Corpuscular Hgb 33.3 pg (27.0-32.0); Mean Corpuscular Volume 105.4 fL (80-94); Mean Platelet Vol. 11.4 fl (6.2-12.0); POSITIVE MORPHOLOGY YES; Platelet Count 132 K/mm3 (150-450); RBC Distribution Width CV 17.2 % (11.6-14.6); RBC Distribution Width SD 66.9 fl (35.1-43.9); Red Blood Count 2.97 M/mm3 (4.6-6.2); White Blood Count 5.4 K/mm3 (4.4-11.0)
[2020-11-15 07:56] LABS: Scan Indicated on CBC? Y/N YES- FLAGS NOTED
[2020-11-15 08:04] LABS: Anion Gap 6 (5-15); BUN 28 mg/dL (7-18); BUN/Creat Ratio 5.6 RATIO (10-20); Calcium,Total 9.1 mg/dL (8.5-10.1); Chloride 95 mmol/L (98-107); Creatinine, Serum 5.02 mg/dL (0.70-1.30); EST Glomerular Filtration Rate 12 mL/min (>60); Est Glom Filt Rate - Afr Amer 15 mL/min (>60); Estimated Creatinine Clearance 13.94 ml/min; Glucose 117 mg/dL (74-106); Potassium 3.6 mmol/L (3.5-5.1); Sodium Level 133 mmol/L (136-145)
[2020-11-15 08:54] LABS: Differential Comment SCANNED
--- NOTE | 2020-11-15 08:57 | PCM.HP.BLA ---
History and Physical Date of Admission: 11/15/20 Intake Visit Reasons: Access flow issues/HX & Physical for Fistulagram Chief Complaint: decreased flows Scientific Laboratory Supervisor Required: No Is patient in pain?: No Allergies No Known Allergies Allergy (Verified 11/08/20 14:22) Medications ascorbic acid (vitamin C) 500 mg PO DAILY 03/08/17 [History Confirmed 11/08/20] allopurinol 300 mg tablet 300 mg PO DAILY 08/23/19 [History Confirmed 11/08/20] cholecalciferol (vitamin D3) 125 mcg (5,000 unit) capsule 125 mcg PO DAILY 08/23/19 [History Confirmed 11/08/20] cyanocobalamin (vitamin B-12) 1,000 mcg capsule 1,000 mcg PO DAILY 08/24/19 [History Confirmed 11/08/20] omega-3 fatty acids 1,000 mg capsule 1,000 mg PO DAILY 08/24/19 [History Confirmed 11/08/20] simvastatin 40 mg PO QHS 10/06/19 [History Confirmed 11/08/20] geriatric [id number] 1 ea PO DAILY 04/28/20 [History Confirmed 11/08/20] magnesium oxide 500 mg PO DAILY 05/10/20 [History Confirmed 11/08/20] calcium acetate 667 mg tablet 667 mg PO TID tab 10/04/20 [History Confirmed 11/08/20] midodrine 5 mg tablet 5 mg PO TID tab 10/04/20 [History Confirmed 11/08/20] vitamin B comp no.3-folic acid 1 mg-vit C 60 mg-biotin 300 mcg tablet 1 tab PO DAILY 10/04/20 [History Confirmed 11/08/20] vitamin B12 0.5 mg-folic acid 1 mg tablet 1 tab PO DAILY 10/04/20 [History Confirmed 11/08/20] [facility] Medical History (Updated 11/09/20 @ 09:02 by Janine PALOMO, PA-C) Cardiac murmur Chronic kidney disease Chronic kidney disease with end stage 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 Diabetic neuropathy DRUJ (distal radioulnar joint) arthrosis, primary Essential hypertension Gout Hyperlipidemia Hypertension Hyperuricemia Iron deficiency anemia Primary arthrosis of left distal radioulnar joint Problem with dialysis access Type 2 diabetes mellitus Vascular dialysis catheter in place Surgical History S/P arteriovenous (AV) fistula creation S/P colonoscopy S/P dialysis catheter insertion s/p transposition left forearm AV Fistula (~05/17/20) Status post tonsillectomy Family History Mother Cancer Ovarian Father Hypertension Social History Smoking Status: Never smoker alcohol intake: never substance use type: does not use HPI HPI HPI: GREGORIA RAMIREZ, is a 70 M who presents to the office today for decreased access flows. Patient has a left upper arm transposed basilic vein to brachial artery AV fistula. Patient is currently on dialysis via fistula. Patient notes he has been completing dialysis treatment without stopping early. He has never had a fistulogram previously. He has dialysis on , and Fri. ROS General General: Yes weight change and fatigue; No appetite, colon cancer, breast cancer or weakness HEENT HEENT: No difficulty swallowing, eye injury, eye surgery, swollen glands or hoarseness Endo Endocrine: Yes diabetes mellitus; No thyroid disease, thyroid cancer, Hair loss, heat intolerance or cold intolerance Musc Musculoskeletal: Yes arthritis, rheumatoid arthritis and gout; No back problems or joint pain Cardio Cardiovascular: Yes murmur, heart disease and high blood pressure; No pacemaker, atrial fibrillation, heart attack, heart stent, palpitations, shortness of breat with exertion or chest pain Psych Psychiatric: No depression, anxiety or hearing voices Resp Respiratory: Yes shortness of breath, Yes sleep apnea, No cough, No COPD, No asthma, No emphysema and No wheezing Gastro Gastrointestinal: No abdominal pain, Yes nausea or vomiting, No diarrhea, No constipation, No blood in stool, No acid reflux, No hemorrhoids, No ulcers, No gallbladder problem and Yes black,tarry stools Mitul Hematologic: No blood thinners, No blood disorders, No bleeding, Yes anemia and No blood clots Neuro Neurologic: No weakness Exam Const General: cooperative, healthy appearing, comfortable and no acute distress [facility] Head: normal to inspection Eyes General: appearance normal, both eyes and all related structures Neck Neck: normal visual inspection Neck mass: No Resp Effort & Inspection: normal respiratory effort Auscultation: clear to auscultation bilaterally Cardio Rate: regular rate Rhythm: regular rhythm GI Inspection: normal to inspection Palpation: soft Auscultation: normal bowel sounds Skin General: no rashes or lesions noted Neuro General: no focal motor deficits and CN's II-XI intact bilaterally Extrem Other: Left upper extremity- diminished pulse, bruit and thrill. Psych Appearance: grossly normal Affect: normal affect Assessment and Plan Assessment and Plan (1) Problem with dialysis access: Status: Acute Orders: Orders: Basic Metabolic Profile (BMP) Today CBC-Complete Blood Cnt No Diff Today Plan - Janine PALOMO, PANathanielC: Dr. Galloway will plan to perform a left upper extremity fistulogram. Procedure details, risks and benefits have been explained. Patient has had the opportunity to ask and have questions answered. Patient verbally understands and agrees with the plan. He is not currently on Coumadin. Plan Details Other Medications: Discontinued: warfarin Discontinued Reason: Order Completed I have re-examined the patient. There are no clinical changes since date of exam.
--- NOTE | 2020-11-15 10:21 | OP.PCM_ITS ---
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 The 70-year-old gentleman was taken to the special procedures lab placed upon the table 50 mcg of fentanyl and 1 mg Versed were given as intravenous sedation. There appeared to be diminished inflow. I used ultrasound to identify the basilic vein and ultrasound guidance used 2% lidocaine instilled at total of 1 cc and then used a micropuncture needle retrograde with flow. Micropuncture wire. 6 [place] receive dilators. Using 035 angled Glidewire and 4 [place] glide cath I was able to get access to the brachial artery proximal to the anastomosis. Using Isovue contrast fistulogram was obtained. This actually just demonstrate arterial flow and there was no reversed flow into the fistula. So I replaced the 03 5 inch Glidewire used a 5 x 4 Powerflex angioplasty and perform angioplasty of the anastomosis in the proximal portion of the fistula. 2 different insufflations were performed up to 15 rama of pressure. Final view down demonstrated flow within the fistula with the mid and upper arm portions of fistula widely patent but evidence of persistent stenosis of the very proximal portion of the fistula adjacent to the anastomosis. So then I inserted a 7 x 2 conquest balloon perform balloon angioplasty of to 35 rama of pressure. Final fistulogram demonstrated good resolution of that area of stenosis. I completed the imaging proximally to the chest with good central flow. He tolerated the procedure well no apparent complication wires and balloons were removed sheath was removed and a new suture 4-0 nylon was placed there was an excellent pulse thrill and bruit at the completion blood loss was minimal Specimens none. Drains none. Blood loss minimal. Images demonstrate a transposed left arm basilic vein to brachial artery AV fis maureen with high-grade proximal fistula venous stenosis over a 2 to 3 cm length. There is good central venous outflow. Subsequent to the angioplasty the proximal portion of the fistula there appears to be complete resolution. If repeat treatment is required consideration for possible 8 x 2 conquest angioplasty in the future will be considered. José Galloway M.D., F.A.C.S. Surgeon: José Galloway Type of Anesthesia: IV Sedation and Local
== END 2020-11-15 11:15 | disposition home or self-care (01) ==
LOC: CLSP 07:16
PROVIDERS: PCP Family Medicine; Referring Provider Surgery; Visit Provider Surgery
DX: T82.858A Stenosis of other vascular prosthetic devices, implants and grafts, initial encounter (principal); E11.22 Type 2 diabetes mellitus with diabetic chronic kidney disease; I12.0 Hypertensive chronic kidney disease with stage 5 chronic kidney disease or end stage renal disease; N18.6 End stage renal disease; Z99.2 Dependence on renal dialysis; E11.40 Type 2 diabetes mellitus with diabetic neuropathy, unspecified; E78.5 Hyperlipidemia, unspecified; M10.9 Gout, unspecified; M19.90 Unspecified osteoarthritis, unspecified site; Z86.2 Personal history of diseases of the blood and blood-forming organs and certain disorders involving the immune mechanism; Z79.899 Other long term (current) drug therapy
CPT/HCPCS: 36415; 36902; 76937; 80048; 85027; 99152; 99153; Q9967; C1725; C1769

== ENCOUNTER 2020-12-08 08:30 | Outpatient (RCR) | payer MEDICARE, OTHER, SELFPAY ==
[2020-11-08 14:22] VITALS: BMI 37.3
[2020-11-09 00:23] VITALS: BP 93/44; PULSE 98; RESP 18; TEMP 36.6
--- NOTE | 2020-11-24 09:05 | ART_ITS ---
Reason For Study: Ulcer Procedure A bilateral lower extremity continuous wave Doppler with analog waveform analysis,segmental pressures,and ankle brachial indexes without exercise. Left Segmental Pressures Left posterior tibial artery = >254mmHg. Left dorsalis pedis artery = >254mmHg. Left digit = 111 mmHg. The left ankle is noncompressible. Right Segmental Pressures Right brachial= 108mmHg. Right posterior tibial artery = >254mmHg. Right dorsalis pedis artery = >254mmHg. Right digit = 91 mmHg. The right ankle is noncompressible. Indices The right digital-brachial index is 0.84. The left digital-brachial index is 1.03. VL/Lower Ext Art Exam w/o Exercis Interpretation Summary Triphasic Doppler waveforms are noted at ankle level bilaterally. Pulse-volume recordings appear satisfactory at all levels bilaterally. Resting ankle-brachial indices could no t be determined on either side due to the non-compressibility of the vasculature. Digital-brachial indices are normal bilaterally. There is evidence of arterial calcification at ankle level bilaterally. There i s no evidence of significant arterial occlusive disease in the lower extremities bilaterally. Ordering Physician: Elena Sethi Referring Physician: Jaswinder Adrian Performed By: Teri Velasquez RVT, RDCS and Student
[2020-11-24 11:22] VITALS: BP 95/49; PULSE 104; TEMP 36.2; BMI 37.3
--- NOTE | 2020-11-24 15:37 | PCM.WC.PN ---
History of Present Illness Date of Service: 11/24/20 Chief Complaint: left lower extremity ulcer, cellulitis and edema b/l LE History of Wound: Mr. Russell is a 70 yo gentelman well-known to the wound center who presents due to new (recurrent) left lower extremity ulcer. Said to have started about a week ago. He initially noted increased fluid drainage and increased swelling and then erythema. His HH nurse was concerned regarding the appearance of the left lateral leg and it began draining more and his dialysis nurses were also concerned. He also has petechial appearing spots on his toes, and feet b/l but none of his upper extremities or more proximally. Denies chills, fever or otherwise feeling of unwell. He is on chronic dialysis and uses compression pumps to manage his edema. He recently underwent surgery for fistula placement for dialysis. He reports that his edema has been better than it has been in the past but has had scaling and drainage to his skin which had resolved when he was using UNNA boots when he was here last. He applies Eucerin, zinc oxide to his legs but this has not helped the scaling recently of his left leg. His left leg remains more swollen than his right and has significant keratosis. Progress of Wound: His left LE ulcer is healed. He has developed a new ulcer of his left lateral foot. His other ulcers are healed. His PCP ordered venous duplex and showed resolution of his DVT and his coumadin was discontinued. He underwent arterial testing today. Objective Data Objective Data Vital Signs: Vital Signs Temp Pulse Resp BP 97.2 F L 104 H 18 95/49 L 11/24/20 11:22 11/24/20 11:22 11/09/20 00:23 11/24/20 11:22 Weight: 117.934 kg Body Mass Index (BMI) 37.3 Physical Exam Const alert, oriented x3 and no apparent distress General Appearance: cooperative and comfortable Nutritional Appearance: obese HEENT normocephalic and head/scalp atraumatic Mouth: oral and palatal mucosa normal Eyes PERRL Neck no lymphadenopathy Lymph Lymphatic: lymphedema severe Resp normal respiratory effort Effort and Inspection: able to speak in complete sentences Cardio regular rate and regular rhythm Extremity General Extremity: edema bilateral lower extremity Details: severe Skin General Skin Exam: crusts, lichenification, venous stasis and dermatitis Wounds: wounds noted Wound Narrative: as in clinical panel Psych mental status grossly normal, thought process normal and cooperative Appearance: grossly normal Debridement Note Debridement Note Post-Debridement Measurements and Additional Note: Post-Debridement Measurements/Treatment MAXX - Nurse 1 - General Ulcer Assessment Start: 11/24/20 11:19 Freq: Status: Active Protocol: JATIN Activity Type Activity Date Activity User E-Sign Co-Sign Detail Recorded Client Recorded Date Recorded By Document 11/24/20 11:22 VINOD [id number] 11/24/20 11:28 VINOD 11/24/20 11:22 - Today's Visit Information Type of service Follow-up Visit (Physician/BAG TESTER ) Arrival Mode Ambulatory, Walker Patient Identification Verified (Name & Yes ) Height and Weight Body Mass Index (BMI) 37.3 BMI Classification Obese Vital Signs Temperature (97.8 F-99.1 F) 97.2 F L Temperature Source Temporal Pulse Rate (60-100) 104 H Pulse Location Monitor Blood Pressure (90/60-120/80) 95/49 L Blood Pressure Mean (mm Hg) 64 Source Monitor Position Semi-Fowlers Blood Pressure Location Left Arm History Since Last Visit- (Skip if this is Patient's initial visit) Have you changed medications since your No last visit? Any new allergies or adverse reactions No Signs or symptoms of abuse and/or No neglect since last visit Have you been in the hospital since your No last visit? Has dressing in place as prescribed Yes Has compression in place as prescribed N/A Has offloadiing in place as prescribed N/A Experienced any changes in pain level or No management Left Footwear Regular Shoe Right Footwear Regular Shoe Pain Scale: 0-10 Numeric Is Patient Pain Free? Yes - Nurse 1 - General Ulcer Measurement Start: 11/24/20 11:19 Freq: Status: Active Protocol: Activity Type Activity Date Activity User E-Sign Co-Sign Detail Recorded Client Recorded Date Recorded By Document 11/24/20 11:22 VINOD [id number] 11/24/20 11:28 VINOD 11/24/20 11:22 Wound Center Nurse 1 #25 right 2nd toe -Current Size (cm) - Length 0.3 -Current Size (cm) - Width 0.1 -Current Size (cm) - Depth 0.1 -Total Square Cm 0.03 -Exudate Amt None Present -Wound Margin Distinct, Outline Attached -Granulation Amt None Present (0 %) -Necrosis Amt None Present (0 %) -Texture (Jaylyn-wound Skin Appearance) Assessed, Scarring -Moisture (Jaylyn-wound Skin Appearance) No Abnormality, Assessed -Color (Jaylyn-wound Skin Appearance) No Abnormality, Assessed -Temperature (Jaylyn-wound Skin No Abnormality Appearance) (Pt Warm) -Tenderness on Palpation (Jaylyn-wound No Skin Appearance) -Ulcer Cleansing Rinsed/ Irrigated with Saline -Foul Odor after Cleansing No -Anesthetic Used 4% Lidocaine Solution #24 right lateral foot -Current Size (cm) - Length 0.1 -Current Size (cm) - Width 0.1 -Current Size (cm) - Depth 0.1 -Total Square Cm 0.01 -Exudate Amt None Present -Granulation Amt None Present (0 %) -Necrosis Amt None Present (0 %) -Texture (Jaylyn-wound Skin Appearance) Assessed, Scarring -Moisture (Jaylyn-wound Skin Appearance) No Abnormality, Assessed -Color (Jaylyn-wound Skin Appearance) No Abnormality, Assessed -Temperature (Jaylyn-wound Skin No Abnormality Appearance) (Pt Warm) -Tenderness on Palpation (Jaylyn-wound No Skin Appearance) -Ulcer Cleansing Rinsed/ Irrigated with Saline -Foul Odor after Cleansing No -Anesthetic Used 4% Lidocaine Solution #19 Left Lateral LE -Current Size (cm) - Length 0.5 -Current Size (cm) - Width 0.2 -Current Size (cm) - Depth 0.2 -Total Square Cm 0.10 -Exudate Amt Small -Exudate Type Serosanguineous -Wound Margin Distinct, Outline Attached -Granulation Amt Small (1-33%) -Granulation Quality Red -Necrosis Amt Small (1-33%) -Necrotic Tissue Type Adherent Slough -Texture (Jaylyn-wound Skin Appearance) Assessed, Scarring -Moisture (Jaylyn-wound Skin Appearance) No Abnormality, Assessed -Color (Jaylyn-wound Skin Appearance) No Abnormality, Assessed -Temperature (Jaylyn-wound Skin No Abnormality Appearance) (Pt Warm) -Tenderness on Palpation (Jaylyn-wound No Skin Appearance) -Ulcer Cleansing Rinsed/ Irrigated with Saline -Foul Odor after Cleansing No -Anesthetic Used 4% Lidocaine Solution WC - Nurse 2 - General Ulcer CM Notes Start: 11/24/20 11:19 Freq: Status: Active Protocol: Activity Type Activity Date Activity User E-Sign Co-Sign Detail Recorded Client Recorded Date Recorded By Document 11/24/20 12:06 MW [id number] 11/24/20 12:16 MW 11/24/20 12:06 Wound Center Nurse 2 #26 left lateral foot -Time 12:13 -Correct Patient Yes -Correct Side, Site, Position Yes -Correct Procedure Yes -Procedure Performed Yes -Type of Procedure Debridement -Clinical Debridement Epidermis / Dermis -Tissue Removed Epidermis -Post Debridement (cm) - Length 2.5 -Post Debridement (cm) - Width 3.0 -Post Debridement (cm) - Depth 0.1 -Total Square (Post) (cm) 7.50 -Area of Debridement (cm) - Length 2.5 -Area of Debridement (cm) - Width 3.0 -Total Square (Area) (cm) 7.50 -Tunneling No -Undermining/Tunneling No -Circular Undermining No -Wound/Ulcer Outcome Not Healed -Ulcer Cleansing Rinsed/ Irrigated with Saline -Foul Odor after Cleansing No -Bioengineered Tissue No -Bleeding Controlled with Pressure -Offloading No -Treatment Response Procedure Tolerated Well -Debridement - Open, 1st 20sq cm Yes #25 right 2nd toe -Time 12:08 -Correct Patient Yes -Correct Side, Site, Position Yes -Correct Procedure Yes -Procedure Performed No -Post Debridement (cm) - Length 0 -Post Debridement (cm) - Width 0 -Post Debridement (cm) - Depth 0 -Total Square (Post) (cm) 0 -Wound/Ulcer Outcome Healed- Epithelialized #24 right lateral foot -Time 12:09 -Correct Patient Yes -Correct Side, Site, Position Yes -Correct Procedure Yes -Procedure Performed No -Post Debridement (cm) - Length 0 -Post Debridement (cm) - Width 0 -Post Debridement (cm) - Depth 0 -Total Square (Post) (cm) 0 #19 Left Lateral LE -Time 12:12 -Correct Patient Yes -Correct Side, Site, Position Yes -Correct Procedure Yes -Procedure Performed No -Post Debridement (cm) - Length 0 -Post Debridement (cm) - Width 0 -Post Debridement (cm) - Depth 0 -Total Square (Post) (cm) 0 -Wound/Ulcer Outcome Healed- Epithelialized Pain Scale: 0-10 Numeric Is Patient Pain Free? Yes WC - Nurse 3 - General Ulcer D/C NN Start: 11/24/20 11:19 Freq: Status: Active Protocol: Activity Type Activity Date Activity User E-Sign Co-Sign Detail Recorded Client Recorded Date Recorded By Document 11/24/20 12:29 ML [id number] 11/24/20 12:31 ML 11/24/20 12:29 Wound Care Nurse 3 #26 left lateral foot -Ulcer Cleansing Rinsed/ Irrigated with Saline -Foul Odor after Cleansing No -Primary Dressing Applied Promogran -Other Dressing phuc wraps bilateral, -Primary Dressing Covered/Secured with Dry Gauze -Promogran 2 Wound debrided: right 2nd toe Laterality: Right Patient tolerated procedure: Patient tolerated procedure well No debridement was completed: No debridement was completed today Additional Wound Wound debrided: right lateral foot Laterality: Right Operative Diagnosis: no debridement completed today - healed Additional Wound Wound debrided: left lateral LE Laterality: Left Type of Debridement: Selective debridement Depth: Down to and including healthy tissue Percentage of wound debrided: 100 Severity: Limited To Skin Breakdown Patient tolerated procedure: Patient tolerated procedure well Additional Wound Wound debrided: left lateral foot Laterality: Left Type of Debridement: Selective debridement Anesthesia Used: 4% Lidocaine Solution Depth: Down to and including healthy tissue and in the subcutaneous layer Percentage of wound debrided: 100 Instrument Used: - (gauze) Tissue Removed: yellow slough, devitalized tissue Severity: Fat Layer Exposed Amount of bleeding with debridement: Mild Bleeding Controlled with: Compression and gauze Patient tolerated procedure: Patient tolerated procedure well Assessment/Plan Assessment/Plan (1) Ulcer of left lower extremity with fat layer exposed: CODE(S): L97.922 - Non-pressure chronic ulcer of unspecified part of left lower leg with fat layer exposed (2) Ulcer of left foot: CODE(S): L97.529 - Non-pressure chronic ulcer of other part of left foot with unspecified severity QUALIFIERS: Non-pressure ulcer stage: limited to breakdown of skin Qualified Code(s): L97.521 - Non-pressure chronic ulcer of other part of left foot limited to breakdown of skin (3) HERNÁN (obstructive sleep apnea): CODE(S): G47.33 - Obstructive sleep apnea (adult) (pediatric) (4) Obesity: CODE(S): E66.9 - Obesity, unspecified QUALIFIERS: Obesity type: unspecified obesity type Obesity classification: adult class 2 (BMI 35 - 39.9) Serious obesity comorbidity presence: with serious comorbidity Body mass index: BMI 37.0-37.9 Qualified Code(s): E66.01 - Morbid (severe) obesity due to excess calories; Z68.37 - Body mass index [BMI] 37.0-37.9, adult (5) Chronic acquired lymphedema: CODE(S): I89.0 - Lymphedema, not elsewhere classified (6) Venous stasis dermatitis: CODE(S): I87.2 - Venous insufficiency (chronic) (peripheral) QUALIFIERS: Laterality: bilateral Qualified Code(s): I87.2 - Venous insufficiency (chronic) (peripheral) (7) Stage 3 severe COPD by GOLD classification: CODE(S): J44.9 - Chronic obstructive pulmonary disease, unspecified (8) Lymphedema of both lower extremities: CODE(S): I89.0 - Lymphedema, not elsewhere classified (9) Chronic kidney disease with end stage 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: CODE(S): N18.6 - End stage renal disease; Z99.2 - Dependence on renal dialysis (10) Type 2 diabetes mellitus: CODE(S): E11.9 - Type 2 diabetes mellitus without complications QUALIFIERS: Diabetes mellitus complication status: with kidney complications Diabetes mellitus complication detail: with chronic kidney disease Diabetes mellitus penitentiary insulin use: with penitentiary use Chronic kidney disease stage: on chronic dialysis Qualified Code(s): E11.22 - Type 2 diabetes mellitus with diabetic chronic kidney disease; N18.6 - End stage renal disease; Z79.4 - retirement (current) use of insulin; Z99.2 - Dependence on renal dialysis PLAN: Mr. Russell's legs have lymphedema and chronic stasis dermatitis with recurrent ulcer of his left lateral lower leg. He developed a new ulcer left lateral foot but his other ulcers are healed. Will dress his ulcer with Promogran M,W,F. He has decreased edema today bilaterally. His recent labs have been reviewed. Encouraged adequate protein intake. Venous studies show resolution of his DVT. Arterial studies done today with preliminary results showing no significant disease. He was advised to use zinc oxide or triamcinolone cream to his legs once daily to help with his dermatitis. Will plan on returning to maintenance control of his edema with PHUC wraps. He was advised to use his compression pumps twice daily and be vigilant with elevating his legs to avoid worsening of his edema which causes the cellulitis and ulcers. Call with worsening pain, drainage or odor. F/U in 1 week.
[2020-12-01 08:35] VITALS: BP 87/44; PULSE 102; RESP 22; TEMP 36.4; BMI 37.3
--- NOTE | 2020-12-01 09:10 | PN.PCM_ITS ---
History of Present Illness Date of Service: 12/01/20 Chief Complaint: left lower extremity ulcer, cellulitis and edema b/l LE History of Wound: Mr. Russell is a 70 yo gentelman well-known to the wound center who presents due to new (recurrent) left lower extremity ulcer. Said to have started about a week ago. He initially noted increased fluid drainage and increased swelling and then erythema. His HH nurse was concerned regarding the appearance of the left lateral leg and it began draining more and his dialysis nurses were also concerned. He also has petechial appearing spots on his toes, and feet b/l but none of his upper extremities or more proximally. Denies chills, fever or otherwise feeling of unwell. He is on chronic dialysis and uses compression pumps to manage his edema. He recently underwent surgery for fistula placement for dialysis. He reports that his edema has been better than it has been in the past but has had scaling and drainage to his skin which had resolved when he was using UNNA boots when he was here last. He applies Eucerin, zinc oxide to his legs but this has not helped the scaling recently of his left leg. His left leg remains more swollen than his right and has significant keratosis. Progress of Wound: His left LE ulcer is healed. The new ulcer of his left lateral foot is healed. He does have a new wound on his plantar foot where he had a wart removed earlier this week that has become painful. He underwent luigi rial testing and it showed mild PAD at the level of his ankles. Objective Data Objective Data Vital Signs: Vital Signs Temp Pulse Resp BP 97.5 F L 102 H 22 H 87/44 L 12/01/20 08:35 12/01/20 08:35 12/01/20 08:35 12/01/20 08:35 Weight: 117.934 kg Body Mass Index (BMI) 37.3 Physical Exam Const alert, oriented x3 and no apparent distress General Appearance: cooperative and comfortable Nutritional Appearance: obese HEENT normocephalic and head/scalp atraumatic Eyes PERRL Neck no lymphadenopathy Lymph Lymphatic: lymphedema severe Resp normal respiratory effort Effort and Inspection: able to speak in complete sentences Cardio regular rate and regular rhythm Extremity General Extremity: edema bilateral lower extremity Details: severe Skin General Skin Exam: crusts, lichenification, venous stasis and dermatitis Wounds: wounds noted Wound Narrative: as in clinical panel Psych mental status grossly normal, thought process normal and cooperative Appearance: grossly normal Debridement Note Debridement Note Post-Debridement Measurements and Additional Note: Post-Debridement Measurements/Treatment WC - Nurse 1 - General Ulcer Assessment Start: 11/24/20 11:19 Freq: Status: Active Protocol: JATIN Activity Type Activity Date Activity User E-Sign Co-Sign Detail Recorded Client Recorded Date Recorded By Document 11/24/20 11:22 KR [id number] 11/24/20 11:28 KR Document 12/01/20 08:35 DL [id number] 12/01/20 08:41 DL 11/24/20 12/01/20 11:22 08:35 WC - Today's Visit Information Type of service Follow-up Visit Follow-up Visit (Physician/FAST FOOD SHIFT SUPERVISOR (Physician/FAST FOOD SHIFT SUPERVISOR ) ) Arrival Mode Ambulatory, Ambulatory, Walker Walker Transfer Assistance None Patient Identification Verified (Name & Yes Yes ) Height and Weight Body Mass Index (BMI) 37.3 37.3 BMI Classification Obese Obese Vital Signs Temperature (97.8 F-99.1 F) 97.2 F L 97.5 F L Temperature Source Temporal Temporal Pulse Rate (60-100) 104 H 102 H Pulse Location Monitor Monitor Respiratory Rate (12-18) 22 H Respiratory rate source Observation Blood Pressure (90/60-120/80) 95/49 L 87/44 L Blood Pressure Mean (mm Hg) 64 58 Source Monitor Monitor Position Semi-Fowlers Blood Pressure Location Left Arm History Since Last Visit- (Skip if this is Patient's initial visit) Have you changed medications since your No No last visit? Any new allergies or adverse reactions No No Had a fall/change in ADL's that may No increase risk of falls Signs or symptoms of abuse and/or No No neglect since last visit Have you been in the hospital since your No No last visit? Has dressing in place as prescribed Yes Yes Has compression in place as prescribed N/A Yes Has offloadiing in place as prescribed N/A N/A Experienced any changes in pain level or No No management Left Footwear Regular Shoe Right Footwear Regular Shoe Pain Scale: 0-10 Numeric Is Patient Pain Free? Yes Yes MAXX Armstrong Nurse 1 - General Ulcer Measurement Start: 11/24/20 11:19 Freq: Status: Active Protocol: Activity Type Activity Date Activity User E-Sign Co-Sign Detail Recorded Client Recorded Date Recorded By Document 11/24/20 11:22 KR [id number] 11/24/20 11:28 KR Document 12/01/20 08:35 DL [id number] 12/01/20 08:41 DL 11/24/20 12/01/20 11:22 08:35 Wound Center Nurse 1 #26 left lateral foot -Current Size (cm) - Length 0.1 -Current Size (cm) - Width 0.1 -Current Size (cm) - Depth 0.1 -Total Square Cm 0.01 -Photo Taken No -Exudate Amt None Present -Wound Margin Flat & Intact -Granulation Amt Large (67-100%) -Granulation Quality Kennedy -Necrosis Amt Small (1-33%) -Necrotic Tissue Type Adherent Slough -Structure Exposed N/A -Texture (Jaylyn-wound Skin Appearance) Scarring -Moisture (Jaylyn-wound Skin Appearance) No Abnormality -Color (Jaylyn-wound Skin Appearance) No Abnormality -Temperature (Jaylyn-wound Skin No Abnormality Appearance) (Pt Warm) -Tenderness on Palpation (Jaylyn-wound No Skin Appearance) -Ulcer Cleansing Wound Cleanser -Foul Odor after Cleansing No -Anesthetic Used 5% Lidocaine Gel #25 right 2nd toe -Current Size (cm) - Length 0.3 -Current Size (cm) - Width 0.1 -Current Size (cm) - Depth 0.1 -Total Square Cm 0.03 -Exudate Amt None Present -Wound Margin Distinct, Outline Attached -Granulation Amt None Present (0 %) -Necrosis Amt None Present (0 %) -Texture (Jaylyn-wound Skin Appearance) Assessed, Scarring -Moisture (Jaylyn-wound Skin Appearance) No Abnormality, Assessed -Color (Jaylyn-wound Skin Appearance) No Abnormality, Assessed -Temperature (Jaylyn-wound Skin No Abnormality Appearance) (Pt Warm) -Tenderness on Palpation (Jaylyn-wound No Skin Appearance) -Ulcer Cleansing Rinsed/ Irrigated with Saline -Foul Odor after Cleansing No -Anesthetic Used 4% Lidocaine Solution #24 right lateral foot -Current Size (cm) - Length 0.1 -Current Size (cm) - Width 0.1 -Current Size (cm) - Depth 0.1 -Total Square Cm 0.01 -Exudate Amt None Present -Granulation Amt None Present (0 %) -Necrosis Amt None Present (0 %) -Texture (Jaylyn-wound Skin Appearance) Assessed, Scarring -Moisture (Jaylyn-wound Skin Appearance) No Abnormality, Assessed -Color (Jaylyn-wound Skin Appearance) No Abnormality, Assessed -Temperature (Jaylyn-wound Skin No Abnormality Appearance) (Pt Warm) -Tenderness on Palpation (Jaylyn-wound No Skin Appearance) -Ulcer Cleansing Rinsed/ Irrigated with Saline -Foul Odor after Cleansing No -Anesthetic Used 4% Lidocaine Solution #19 Left Lateral LE -Current Size (cm) - Length 0.5 -Current Size (cm) - Width 0.2 -Current Size (cm) - Depth 0.2 -Total Square Cm 0.10 -Exudate Amt Small -Exudate Type Serosanguineous -Wound Margin Distinct, Outline Attached -Granulation Amt Small (1-33%) -Granulation Quality Red -Necrosis Amt Small (1-33%) -Necrotic Tissue Type Adherent Slough -Texture (Jaylyn-wound Skin Appearance) Assessed, Scarring -Moisture (Jaylyn-wound Skin Appearance) No Abnormality, Assessed -Color (Jaylyn-wound Skin Appearance) No Abnormality, Assessed -Temperature (Jaylyn-wound Skin No Abnormality Appearance) (Pt Warm) -Tenderness on Palpation (Jaylyn-wound No Skin Appearance) -Ulcer Cleansing Rinsed/ Irrigated with Saline -Foul Odor after Cleansing No -Anesthetic Used 4% Lidocaine Solution WC - Nurse 2 - General Ulcer CM Notes Start: 11/24/20 11:19 Freq: Status: Active Protocol: Activity Type Activity Date Activity User E-Sign Co-Sign Detail Recorded Client Recorded Date Recorded By Document 11/24/20 12:06 MW [id number] 11/24/20 12:16 MW Document 12/01/20 08:59 MW [id number] 12/01/20 09:07 MW 11/24/20 12/01/20 12:06 08:59 Wound Center Nurse 2 #27 left plantar mid foot -Time 09:04 -Correct Patient Yes -Correct Side, Site, Position Yes -Correct Procedure Yes -Procedure Performed Yes -Type of Procedure Debridement -Clinical Debridement Epidermis / Dermis -Tissue Removed Epidermis -Post Debridement (cm) - Length 0.3 -Post Debridement (cm) - Width 0.4 -Post Debridement (cm) - Depth 0.1 -Total Square (Post) (cm) 0.12 -Area of Debridement (cm) - Length 0.3 -Area of Debridement (cm) - Width 0.4 -Total Square (Area) (cm) 0.12 -Tunneling No -Undermining/Tunneling No -Circular Undermining No -Wound/Ulcer Outcome Not Healed -Ulcer Cleansing Rinsed/ Irrigated with Saline -Foul Odor after Cleansing No -Bioengineered Tissue No -Bleeding Controlled with Pressure -Offloading No -Treatment Response Procedure Tolerated Well -Debridement - Open, 1st 20sq cm Yes #26 left lateral foot -Time 12:13 09:00 -Correct Patient Yes Yes -Correct Side, Site, Position Yes Yes -Correct Procedure Yes Yes -Procedure Performed Yes No -Type of Procedure Debridement -Clinical Debridement Epidermis / Dermis -Tissue Removed Epidermis -Post Debridement (cm) - Length 2.5 0 -Post Debridement (cm) - Width 3.0 0 -Post Debridement (cm) - Depth 0.1 0 -Total Square (Post) (cm) 7.50 0 -Area of Debridement (cm) - Length 2.5 -Area of Debridement (cm) - Width 3.0 -Total Square (Area) (cm) 7.50 -Tunneling No -Undermining/Tunneling No -Circular Undermining No -Wound/Ulcer Outcome Not Healed Healed- Epithelialized -Ulcer Cleansing Rinsed/ Irrigated with Saline -Foul Odor after Cleansing No -Bioengineered Tissue No -Bleeding Controlled with Pressure -Offloading No -Treatment Response Procedure Tolerated Well -Debridement - Open, 1st 20sq cm Yes #25 right 2nd toe -Time 12:08 -Correct Patient Yes -Correct Side, Site, Position Yes -Correct Procedure Yes -Procedure Performed No -Post Debridement (cm) - Length 0 -Post Debridement (cm) - Width 0 -Post Debridement (cm) - Depth 0 -Total Square (Post) (cm) 0 -Wound/Ulcer Outcome Healed- Epithelialized #24 right lateral foot -Time 12:09 -Correct Patient Yes -Correct Side, Site, Position Yes -Correct Procedure Yes -Procedure Performed No -Post Debridement (cm) - Length 0 -Post Debridement (cm) - Width 0 -Post Debridement (cm) - Depth 0 -Total Square (Post) (cm) 0 #19 Left Lateral LE -Time 12:12 -Correct Patient Yes -Correct Side, Site, Position Yes -Correct Procedure Yes -Procedure Performed No -Post Debridement (cm) - Length 0 -Post Debridement (cm) - Width 0 -Post Debridement (cm) - Depth 0 -Total Square (Post) (cm) 0 -Wound/Ulcer Outcome Healed- Epithelialized Pain Scale: 0-10 Numeric Is Patient Pain Free? Yes Yes WC - Nurse 3 - General Ulcer D/C NN Start: 11/24/20 11:19 Freq: Status: Active Protocol: Activity Type Activity Date Activity User E-Sign Co-Sign Detail Recorded Client Recorded Date Recorded By Document 11/24/20 12:29 ML [id number] 11/24/20 12:31 ML 11/24/20 12:29 Wound Care Nurse 3 #26 left lateral foot -Ulcer Cleansing Rinsed/ Irrigated with Saline -Foul Odor after Cleansing No -Primary Dressing Applied Promogran -Other Dressing phuc wraps bilateral, -Primary Dressing Covered/Secured with Dry Gauze -Promogran 2 Wound debrided: left lateral foot Laterality: Left No debridement was completed: No debridement was completed today Additional Wound Wound debrided: left plantar foot Laterality: Left Type of Debridement: Selective debridement Anesthesia Used: 4% Lidocaine Solution Depth: Down to and including healthy tissue and in the subcutaneous layer Percentage of wound debrided: 100 Instrument Used: 3mm curette Tissue Removed: Yellow slough, devitalized tissue Severity: Limited To Skin Breakdown Amount of bleeding with debridement: Mild Bleeding Controlled with: Compression and gauze Patient tolerated procedure: Patient tolerated procedure well Assessment/Plan Assessment/Plan (1) Ulcer of left lower extremity with fat layer exposed: CODE(S): L97.922 - Non-pressure chronic ulcer of unspecified part of left lower leg with fat layer exposed (2) Ulcer of left foot: CODE(S): L97.529 - Non-pressure chronic ulcer of other part of left foot with unspecified severity QUALIFIERS: Non-pressure ulcer stage: limited to breakdown of skin Qualified Code(s): L97.521 - Non-pressure chronic ulcer of other part of left foot limited to breakdown of skin (3) HERNÁN (obstructive sleep apnea): CODE(S): G47.33 - Obstructive sleep apnea (adult) (pediatric) (4) Obesity: CODE(S): E66.9 - Obesity, unspecified QUALIFIERS: Body mass index: BMI 37.0-37.9 Obesity classification: adult class 2 (BMI 35 - 39.9) Obesity type: unspecified obesity type Serious obesity comorbidity presence: with serious comorbidity Qualified Code(s): E66.01 - Morbid (severe) obesity due to excess calories; Z68.37 - Body mass index [BMI] 37.0-37.9, adult (5) Chronic acquired lymphedema: CODE(S): I89.0 - Lymphedema, not elsewhere classified (6) Venous stasis dermatitis: CODE(S): I87.2 - Venous insufficiency (chronic) (peripheral) QUALIFIERS: Laterality: bilateral Qualified Code(s): I87.2 - Venous insufficiency (chronic) (peripheral) (7) Stage 3 severe COPD by GOLD classification: CODE(S): J44.9 - Chronic obstructive pulmonary disease, unspecified (8) Lymphedema of both lower extremities: CODE(S): I89.0 - Lymphedema, not elsewhere classified (9) Chronic kidney disease with end stage 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: CODE(S): N18.6 - End stage renal disease; Z99.2 - Dependence on renal dialysis (10) Type 2 diabetes mellitus: CODE(S): E11.9 - Type 2 diabetes mellitus without complications QUALIFIERS: Chronic kidney disease stage: on chronic dialysis Diabetes mellitus complication detail: with chronic kidney disease Diabetes mellitus complication status: with kidney complications Diabetes mellitus prison insulin use: with prison use Qualified Code(s): E11.22 - Type 2 diabetes mellitus with diabetic chronic kidney disease; N18.6 - End stage renal disease; Z79.4 - speech therapy assistant (current) use of insulin; Z99.2 - Dependence on renal dialysis PLAN: Mr. Russell's legs have lymphedema and chronic stasis dermatitis. He developed a new ulcer left lateral foot but this is healed. He developed a new ulcer this week on his plantar foot where he had a wart removed. There is erythema, pain and swelling. Will dress his ulcer with Promogran M,W,F. Will treat him with antibiotics as he has easily gotten cellulitis and bacteremia in past. He has decreased edema today bilaterally. His recent labs have been reviewed. Encouraged adequate protein intake. Venous studies show resolution of his DVT. Arterial studies show no significant disease. He was advised to use zinc oxide or triamcinolone cream to his legs once daily to help with his dermatitis. Will plan on returning to maintenance control of his edema with PHUC wraps. He was advised to use his compression pumps twice daily and be vigilant with elevating his legs to avoid worsening of his edema which causes the cellulitis and ulcers. Call with worsening pain, drainage or odor. F/U in 1 week.
[2020-12-08 08:35] VITALS: BP 95/40; PULSE 103; RESP 18; TEMP 36.2; BMI 37.3
--- NOTE | 2020-12-08 10:05 | PN.PCM_ITS ---
History of Present Illness Date of Service: 12/08/20 Chief Complaint: left lower extremity ulcer, cellulitis and edema b/l LE History of Wound: Mr. Russell is a 70 yo gentelman well-known to the wound center who presents due to new (recurrent) left lower extremity ulcer. Said to have started about a week ago. He initially noted increased fluid drainage and increased swelling and then erythema. His HH nurse was concerned regarding the appearance of the left lateral leg and it began draining more and his dialysis nurses were also concerned. He also has petechial appearing spots on his toes, and feet b/l but none of his upper extremities or more proximally. Denies chills, fever or otherwise feeling of unwell. He is on chronic dialysis and uses compression pumps to manage his edema. He recently underwent surgery for fistula placement for dialysis. He reports that his edema has been better than it has been in the past but has had scaling and drainage to his skin which had resolved when he was using UNNA boots when he was here last. He applies Eucerin, zinc oxide to his legs but this has not helped the scaling recently of his left leg. His left leg remains more swollen than his right and has significant keratosis. Progress of Wound: His left LE ulcer remains healed. The left lateral foot also remains healed. The plantar foot wound is somewhat improved but there is still drainage and open areas with some callus formation. He underwent arterial testing November 2020 and it showed mild PAD at the level of his ankles. Objective Data Objective Data Vital Signs: Vital Signs Temp Pulse Resp BP 97.2 F L 103 H 18 95/40 L 12/08/20 08:35 12/08/20 08:35 12/08/20 08:35 12/08/20 08:35 Weight: 117.934 kg Body Mass Index (BMI) 37.3 Physical Exam Const alert, oriented x3 and no apparent distress General Appearance: cooperative and comfortable Nutritional Appearance: obese HEENT normocephalic and head/scalp atraumatic Eyes PERRL Neck no lymphadenopathy Lymph Lymphatic: lymphedema severe Resp normal respiratory effort Effort and Inspection: able to speak in complete sentences Cardio regular rate and regular rhythm Extremity General Extremity: edema bilateral lower extremity Details: severe Skin General Skin Exam: crusts, lichenification, venous stasis and dermatitis Wounds: wounds noted Wound Narrative: as in clinical panel Psych mental status grossly normal, thought process normal and cooperative Appearance: grossly normal Debridement Note Debridement Note Post-Debridement Measurements and Additional Note: Post-Debridement Measurements/Treatment WC - Nurse 1 - General Ulcer Assessment Start: 11/24/20 11:19 Freq: Status: Active Protocol: JATIN Activity Type Activity Date Activity User E-Sign Co-Sign Detail Recorded Client Recorded Date Recorded By Document 11/24/20 11:22 KR [id number] 11/24/20 11:28 KR Document 12/01/20 08:35 DL [id number] 12/01/20 08:41 DL Document 12/08/20 08:35 RB [id number] 12/08/20 08:40 RB 11/24/20 12/01/20 12/08/20 11:22 08:35 08:35 WC - Today's Visit Information Type of service Follow-up Visit Follow-up Visit Follow-up Visit (Physician/FORGE SHOP MACHINE REPAIRER (Physician/FORGE SHOP MACHINE REPAIRER (Physician/FORGE SHOP MACHINE REPAIRER ) ) ) Arrival Mode Ambulatory, Ambulatory, Ambulatory, Walker Walker Walker Transfer Assistance None None Patient Identification Verified (Name & Yes Yes Yes ) Patient Requires Transmission-Based No Precautions Height and Weight Body Mass Index (BMI) 37.3 37.3 37.3 BMI Classification Obese Obese Obese Vital Signs Temperature (97.8 F-99.1 F) 97.2 F L 97.5 F L 97.2 F L Temperature Source Temporal Temporal Temporal Pulse Rate (60-100) 104 H 102 H 103 H Pulse Location Monitor Monitor Monitor Respiratory Rate (12-18) 22 H 18 Respiratory rate source Observation Observation Blood Pressure (90/60-120/80) 95/49 L 87/44 L 95/40 L Blood Pressure Mean (mm Hg) 64 58 58 Source Monitor Monitor Monitor Position Semi-Fowlers Semi-Fowlers Blood Pressure Location Left Arm Left Arm History Since Last Visit- (Skip if this is Patient's initial visit) Have you changed medications since your No No No last visit? Any new allergies or adverse reactions No No No Had a fall/change in ADL's that may No No increase risk of falls Signs or symptoms of abuse and/or No No No neglect since last visit Have you been in the hospital since your No No No last visit? Has dressing in place as prescribed Yes Yes Yes Has compression in place as prescribed N/A Yes Yes Has offloadiing in place as prescribed N/A N/A No Experienced any changes in pain level or No No No management Left Footwear Regular Shoe Regular Shoe Right Footwear Regular Shoe Regular Shoe Pain Scale: 0-10 Numeric Is Patient Pain Free? Yes Yes Yes WC - Nurse 1 - General Ulcer Measurement Start: 11/24/20 11:19 Freq: Status: Active Protocol: Activity Type Activity Date Activity User E-Sign Co-Sign Detail Recorded Client Recorded Date Recorded By Document 11/24/20 11:22 KR [id number] 11/24/20 11:28 KR Document 12/01/20 08:35 DL [id number] 12/01/20 08:41 DL Document 12/08/20 08:35 RB [id number] 12/08/20 08:40 RB 11/24/20 12/01/20 12/08/20 11:22 08:35 08:35 Wound Center Nurse 1 #27 left plantar mid foot -Combined with other wound No -Current Size (cm) - Length 0.1 -Current Size (cm) - Width 0.1 -Current Size (cm) - Depth 0.1 -Total Square Cm 0.01 -Tunneling No -Undermining/Tunneling No -Circular Undermining No -Exudate Amt Medium -Exudate Type Serosanguineous -Wound Margin Distinct, Outline Attached -Granulation Amt Medium (34-66%) -Granulation Quality [place] -Slough/Fibrin Yes -Necrosis Amt Small (1-33%) -Necrotic Tissue Type Adherent Slough -Structure Exposed N/A -Texture (Jaylyn-wound Skin Appearance) Assessed,Callus -Moisture (Jaylyn-wound Skin Appearance) Assessed -Color (Jaylyn-wound Skin Appearance) Assessed -Temperature (Jaylyn-wound Skin No Abnormality Appearance) (Pt Warm) -Tenderness on Palpation (Jaylyn-wound No Skin Appearance) -Ulcer Cleansing Wound Cleanser -Foul Odor after Cleansing No -Anesthetic Used 4% Lidocaine Solution #26 left lateral foot -Current Size (cm) - Length 0.1 -Current Size (cm) - Width 0.1 -Current Size (cm) - Depth 0.1 -Total Square Cm 0.01 -Photo Taken No -Exudate Amt None Present -Wound Margin Flat & Intact -Granulation Amt Large (67-100%) -Granulation Quality [place] -Necrosis Amt Small (1-33%) -Necrotic Tissue Type Adherent Slough -Structure Exposed N/A -Texture (Jaylyn-wound Skin Appearance) Scarring -Moisture (Jaylyn-wound Skin Appearance) No Abnormality -Color (Jaylyn-wound Skin Appearance) No Abnormality -Temperature (Jaylyn-wound Skin No Abnormality Appearance) (Pt Warm) -Tenderness on Palpation (Jaylyn-wound No Skin Appearance) -Ulcer Cleansing Wound Cleanser -Foul Odor after Cleansing No -Anesthetic Used 5% Lidocaine Gel #25 right 2nd toe -Current Size (cm) - Length 0.3 -Current Size (cm) - Width 0.1 -Current Size (cm) - Depth 0.1 -Total Square Cm 0.03 -Exudate Amt None Present -Wound Margin Distinct, Outline Attached -Granulation Amt None Present (0 %) -Necrosis Amt None Present (0 %) -Texture (Jaylyn-wound Skin Appearance) Assessed, Scarring -Moisture (Jaylyn-wound Skin Appearance) No Abnormality, Assessed -Color (Jaylyn-wound Skin Appearance) No Abnormality, Assessed -Temperature (Jaylyn-wound Skin No Abnormality Appearance) (Pt Warm) -Tenderness on Palpation (Jaylyn-wound No Skin Appearance) -Ulcer Cleansing Rinsed/ Irrigated with Saline -Foul Odor after Cleansing No -Anesthetic Used 4% Lidocaine Solution #24 right lateral foot -Current Size (cm) - Length 0.1 -Current Size (cm) - Width 0.1 -Current Size (cm) - Depth 0.1 -Total Square Cm 0.01 -Exudate Amt None Present -Granulation Amt None Present (0 %) -Necrosis Amt None Present (0 %) -Texture (Jaylyn-wound Skin Appearance) Assessed, Scarring -Moisture (Jaylyn-wound Skin Appearance) No Abnormality, Assessed -Color (Jaylyn-wound Skin Appearance) No Abnormality, Assessed -Temperature (Jaylyn-wound Skin No Abnormality Appearance) (Pt Warm) -Tenderness on Palpation (Jaylyn-wound No Skin Appearance) -Ulcer Cleansing Rinsed/ Irrigated with Saline -Foul Odor after Cleansing No -Anesthetic Used 4% Lidocaine Solution #19 Left Lateral LE -Current Size (cm) - Length 0.5 -Current Size (cm) - Width 0.2 -Current Size (cm) - Depth 0.2 -Total Square Cm 0.10 -Exudate Amt Small -Exudate Type Serosanguineous -Wound Margin Distinct, Outline Attached -Granulation Amt Small (1-33%) -Granulation Quality Red -Necrosis Amt Small (1-33%) -Necrotic Tissue Type Adherent Slough -Texture (Jaylyn-wound Skin Appearance) Assessed, Scarring -Moisture (Jaylyn-wound Skin Appearance) No Abnormality, Assessed -Color (Jaylyn-wound Skin Appearance) No Abnormality, Assessed -Temperature (Jaylyn-wound Skin No Abnormality Appearance) (Pt Warm) -Tenderness on Palpation (Jaylyn-wound No Skin Appearance) -Ulcer Cleansing Rinsed/ Irrigated with Saline -Foul Odor after Cleansing No -Anesthetic Used 4% Lidocaine Solution Left Calf (cm) 47 Left Ankle (cm) 31.1 WC - Nurse 2 - General Ulcer CM Notes Start: 11/24/20 11:19 Freq: Status: Active Protocol: Activity Type Activity Date Activity User E-Sign Co-Sign Detail Recorded Client Recorded Date Recorded By Document 11/24/20 12:06 MW [id number] 11/24/20 12:16 MW Document 12/01/20 08:59 MW [id number] 12/01/20 09:07 MW Document 12/08/20 08:58 MW [id number] 12/08/20 09:04 MW 11/24/20 12/01/20 12/08/20 12:06 08:59 08:58 Wound Center Nurse 2 #27 left plantar mid foot -Time 09:04 08:59 -Correct Patient Yes Yes -Correct Side, Site, Position Yes Yes -Correct Procedure Yes Yes -Procedure Performed Yes Yes -Type of Procedure Debridement Debridement -Clinical Debridement Epidermis / Epidermis / Dermis Dermis -Tissue Removed Epidermis Epidermis -Post Debridement (cm) - Length 0.3 1.9 -Post Debridement (cm) - Width 0.4 2.7 -Post Debridement (cm) - Depth 0.1 0.1 -Total Square (Post) (cm) 0.12 5.13 -Area of Debridement (cm) - Length 0.3 1.9 -Area of Debridement (cm) - Width 0.4 2.7 -Total Square (Area) (cm) 0.12 5.13 -Tunneling No No -Undermining/Tunneling No No -Circular Undermining No No -Wound/Ulcer Outcome Not Healed Not Healed -Ulcer Cleansing Rinsed/ Rinsed/ Irrigated with Irrigated with Saline Saline -Foul Odor after Cleansing No No -Bioengineered Tissue No No -Bleeding Controlled with Pressure Pressure -Offloading No No -Treatment Response Procedure Procedure Tolerated Well Tolerated Well -Debridement - Open, 1st 20sq cm Yes Yes #26 left lateral foot -Time 12:13 09:00 -Correct Patient Yes Yes -Correct Side, Site, Position Yes Yes -Correct Procedure Yes Yes -Procedure Performed Yes No -Type of Procedure Debridement -Clinical Debridement Epidermis / Dermis -Tissue Removed Epidermis -Post Debridement (cm) - Length 2.5 0 -Post Debridement (cm) - Width 3.0 0 -Post Debridement (cm) - Depth 0.1 0 -Total Square (Post) (cm) 7.50 0 -Area of Debridement (cm) - Length 2.5 -Area of Debridement (cm) - Width 3.0 -Total Square (Area) (cm) 7.50 -Tunneling No -Undermining/Tunneling No -Circular Undermining No -Wound/Ulcer Outcome Not Healed Healed- Epithelialized -Ulcer Cleansing Rinsed/ Irrigated with Saline -Foul Odor after Cleansing No -Bioengineered Tissue No -Bleeding Controlled with Pressure -Offloading No -Treatment Response Procedure Tolerated Well -Debridement - Open, 1st 20sq cm Yes #25 right 2nd toe -Time 12:08 -Correct Patient Yes -Correct Side, Site, Position Yes -Correct Procedure Yes -Procedure Performed No -Post Debridement (cm) - Length 0 -Post Debridement (cm) - Width 0 -Post Debridement (cm) - Depth 0 -Total Square (Post) (cm) 0 -Wound/Ulcer Outcome Healed- Epithelialized #24 right lateral foot -Time 12:09 -Correct Patient Yes -Correct Side, Site, Position Yes -Correct Procedure Yes -Procedure Performed No -Post Debridement (cm) - Length 0 -Post Debridement (cm) - Width 0 -Post Debridement (cm) - Depth 0 -Total Square (Post) (cm) 0 #19 Left Lateral LE -Time 12:12 -Correct Patient Yes -Correct Side, Site, Position Yes -Correct Procedure Yes -Procedure Performed No -Post Debridement (cm) - Length 0 -Post Debridement (cm) - Width 0 -Post Debridement (cm) - Depth 0 -Total Square (Post) (cm) 0 -Wound/Ulcer Outcome Healed- Epithelialized Pain Scale: 0-10 Numeric Is Patient Pain Free? Yes Yes Yes WC - Nurse 3 - General Ulcer D/C NN Start: 11/24/20 11:19 Freq: Status: Active Protocol: Activity Type Activity Date Activity User E-Sign Co-Sign Detail Recorded Client Recorded Date Recorded By Document 11/24/20 12:29 ML [id number] 11/24/20 12:31 ML Document 12/01/20 09:22 DL [id number] 12/01/20 09:25 DL Document 12/08/20 09:15 AK [id number] 12/08/20 09:18 AK 11/24/20 12/01/20 12/08/20 12:29 09:22 09:15 Wound Care Nurse 3 #27 left plantar mid foot -Ulcer Cleansing Rinsed/ Rinsed/ Irrigated with Irrigated with Saline Saline -Foul Odor after Cleansing No No -Primary Dressing Applied Promogran Aquacel AG 4x4 [place] Matter -Other Dressing Apperture pad -Primary Dressing Covered/Secured with Dry Gauze & Dry Gauze & Roll Gauze, Roll Gauze, Secured with Secured with Tape Tape -Aquacel Extra 1 -Aquacel AG 4x4 0 -Promogran [place] Matter 1 #26 left lateral foot -Ulcer Cleansing Rinsed/ Irrigated with Saline -Foul Odor after Cleansing No -Primary Dressing Applied Promogran -Other Dressing krunal wraps bilateral, -Primary Dressing Covered/Secured with Dry Gauze -Promogran 2 Left -Lotion applied to leg before Yes compression wrap -Compression Wrap Krunal Wrap -Stockings No -Other stockinette/krunal krunal bilateral Treatment Response Procedure Tolerated Well Pain Scale: 0-10 Numeric Is Patient Pain Free? Yes WC - Visit Discharge Discharge Condition Stable Stable Ambulatory Status Ambulatory Ambulatory, Walker Transportation Private Auto Private Auto Clinical Summary of Care Provided Yes Facility Type Home Health Orders Sent Yes Assessment/Plan Assessment/Plan (1) Ulcer of left lower extremity with fat layer exposed: CODE(S): L97.922 - Non-pressure chronic ulcer of unspecified part of left lower leg with fat layer exposed (2) Ulcer of left foot: CODE(S): L97.529 - Non-pressure chronic ulcer of other part of left foot with unspecified severity QUALIFIERS: Non-pressure ulcer stage: limited to breakdown of skin Qualified Code(s): L97.521 - Non-pressure chronic ulcer of other part of left foot limited to breakdown of skin (3) HERNÁN (obstructive sleep apnea): CODE(S): G47.33 - Obstructive sleep apnea (adult) (pediatric) (4) Obesity: CODE(S): E66.9 - Obesity, unspecified QUALIFIERS: Obesity type: unspecified obesity type Obesity classification: adult class 2 (BMI 35 - 39.9) Serious obesity comorbidity presence: with serious comorbidity Body mass index: BMI 37.0-37.9 Qualified Code(s): E66.01 - Morbid (severe) obesity due to excess calories; Z68.37 - Body mass index [BMI] 37.0-37.9, adult (5) Chronic acquired lymphedema: CODE(S): I89.0 - Lymphedema, not elsewhere classified (6) Venous stasis dermatitis: CODE(S): I87.2 - Venous insufficiency (chronic) (peripheral) QUALIFIERS: Laterality: bilateral Qualified Code(s): I87.2 - Venous insufficiency (chronic) (peripheral) (7) Stage 3 severe COPD by GOLD classification: CODE(S): J44.9 - Chronic obstructive pulmonary disease, unspecified (8) Lymphedema of both lower extremities: CODE(S): I89.0 - Lymphedema, not elsewhere classified (9) Chronic kidney disease with end stage 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: CODE(S): N18.6 - End stage renal disease; Z99.2 - Dependence on renal dialysis (10) Type 2 diabetes mellitus: CODE(S): E11.9 - Type 2 diabetes mellitus without complications QUALIFIERS: Diabetes mellitus complication status: with kidney complications Diabetes mellitus complication detail: with chronic kidney disease Diabetes mellitus nursing home insulin use: with termite exterminator use Chronic kidney disease stage: on chronic dialysis Qualified Code(s): E11.22 - Type 2 diabetes mellitus with diabetic chronic kidney disease; N18.6 - End stage renal disease; Z79.4 - termite exterminator (current) use of insulin; Z99.2 - Dependence on renal dialysis PLAN: Mr. Russell's legs have lymphedema and chronic stasis dermatitis. The ulcers where he had a wart removed are somewhat improved. There is erythema, pain and swelling still and he has 1 dose of antibiotics left. Will dress his ulcer with Aquacel Extra M,W,F for heavy drainage. His recent labs have been reviewed. Encouraged adequate protein intake. Venous studies show resolution of his DVT. Arterial studies show no significant disease. He was advised to use zinc oxide or triamcinolone cream to his legs once daily to help with his dermatitis. Will plan on returning to maintenance control of his edema with KRUNAL wraps. He was advised to use his compression pumps twice daily and be vigilant with elevating his legs to avoid worsening of his edema which causes the cellulitis and ulcers. Call with worsening pain, drainage or odor. F/U in 1 week.
== END 2020-12-09 23:59 ==
LOC: WC 08:30
PROVIDERS: PCP Family Medicine; Referring Provider Family Medicine; Visit Provider Family Medicine
DX: E11.621 Type 2 diabetes mellitus with foot ulcer (principal); R21 Rash and other nonspecific skin eruption; R23.3 Spontaneous ecchymoses; L97.511 Non-pressure chronic ulcer of other part of right foot limited to breakdown of skin; L97.522 Non-pressure chronic ulcer of other part of left foot with fat layer exposed; M79.89 Other specified soft tissue disorders; G47.33 Obstructive sleep apnea (adult) (pediatric); Z68.37 Body mass index [BMI] 37.0-37.9, adult; E66.01 Morbid (severe) obesity due to excess calories; I89.0 Lymphedema, not elsewhere classified; I87.2 Venous insufficiency (chronic) (peripheral); J44.9 Chronic obstructive pulmonary disease, unspecified; N18.6 End stage renal disease; E11.22 Type 2 diabetes mellitus with diabetic chronic kidney disease; Z99.2 Dependence on renal dialysis; Z79.4 Long term (current) use of insulin
CPT/HCPCS: 93923; 93971; 97597; 99213; G0463

== ENCOUNTER → 2020-12-26 20:00 | Outpatient (CLI) | payer MEDICARE, OTHER, SELFPAY ==
[2020-12-08 08:35] VITALS: BMI 37.3
== END ==
PROVIDERS: PCP Family Medicine; Visit Provider Psychiatry & Neurology Sleep Medicine
DX: G47.33 Obstructive sleep apnea (adult) (pediatric) (principal)
CPT/HCPCS: 95811

== ENCOUNTER 2021-01-05 10:30 | Outpatient (RCR) | payer MEDICARE, OTHER, SELFPAY ==
[2020-12-10 00:26] VITALS: BP 95/40; PULSE 103; RESP 18; TEMP 36.2
[2020-12-15 08:28] VITALS: BP 90/42; PULSE 98; RESP 18; TEMP 36.6; BMI 37.3
--- NOTE | 2020-12-15 09:21 | PCM.WC.PN ---
History of Present Illness Date of Service: 12/15/20 Chief Complaint: left lower extremity ulcer, cellulitis and edema b/l LE History of Wound: Mr. Russell is a 70 yo gentelman well-known to the wound center who presents due to new (recurrent) left lower extremity ulcer. Said to have started about a week ago. He initially noted increased fluid drainage and increased swelling and then erythema. His HH nurse was concerned regarding the appearance of the left lateral leg and it began draining more and his dialysis nurses were also concerned. He also has petechial appearing spots on his toes, and feet b/l but none of his upper extremities or more proximally. Denies chills, fever or otherwise feeling of unwell. He is on chronic dialysis and uses compression pumps to manage his edema. He recently underwent surgery for fistula placement for dialysis. He reports that his edema has been better than it has been in the past but has had scaling and drainage to his skin which had resolved when he was using UNNA boots when he was here last. He applies Eucerin, zinc oxide to his legs but this has not helped the scaling recently of his left leg. His left leg remains more swollen than his right and has significant keratosis. Subjective Subjective His left LE ulcer remains healed. The left lateral foot also remains healed. The plantar foot wound is improved but there is still moderate drainage and open areas and also several ulcers of his left dorsal 2,3,4th toes. He tolerated treatment with Aquacel Extra and ABD. He saw podiatry yesterday who did not feel his plantar wound was a wart. He underwent arterial testing November 2020 and it showed mild PAD at the level of his ankles. Objective Data Objective Data Vital Signs: Vital Signs Temp Pulse Resp BP 98 F 98 18 90/42 L 12/15/20 08:28 12/15/20 08:28 12/15/20 08:28 12/15/20 08:28 Weight: 117.934 kg Body Mass Index (BMI) 37.3 Physical Exam Const alert, oriented x3 and no apparent distress General Appearance: cooperative Nutritional Appearance: morbidly obese HEENT Head and Scalp: normal to inspection and normocephalic Resp normal respiratory effort Effort and Inspection: able to speak in complete sentences Cardio regular rate and regular rhythm Extremity General Extremity: edema bilateral lower extremity Details: moderate Skin General Skin Exam: crusts, excoriation(s), lichenification, venous stasis and dermatitis Wounds: wounds noted Wound Narrative: as in clinical panel Psych mental status grossly normal, thought process normal, cooperative, affect normal and speech normal Debridement Note Debridement Note Post-Debridement Measurements and Additional Note: Post-Debridement Measurements/Treatment - Nurse 1 - General Ulcer Assessment Start: 12/15/20 08:28 Freq: Status: Active Protocol: JATIN Activity Type Activity Date Activity User E-Sign Co-Sign Detail Recorded Client Recorded Date Recorded By Document 12/15/20 08:28 RB [id number] 12/15/20 08:43 RB 12/15/20 08:28 - Today's Visit Information Type of service Follow-up Visit (Physician/PIPE COREMAKER ) Arrival Mode Ambulatory, Walker Transfer Assistance None Patient Identification Verified (Name & Yes ) Patient Requires Transmission-Based No Precautions Height and Weight Body Mass Index (BMI) 37.3 BMI Classification Obese Vital Signs Temperature (97.8 F-99.1 F) 98 F Temperature Source Temporal Pulse Rate (60-100) 98 Pulse Location Monitor Respiratory Rate (12-18) 18 Respiratory rate source Observation Blood Pressure (90/60-120/80) 90/42 L Blood Pressure Mean (mm Hg) 58 Source Monitor Position Semi-Fowlers Blood Pressure Location Left Arm History Since Last Visit- (Skip if this is Patient's initial visit) Have you changed medications since your No last visit? Any new allergies or adverse reactions No Had a fall/change in ADL's that may No increase risk of falls Signs or symptoms of abuse and/or No neglect since last visit Have you been in the hospital since your No last visit? Has dressing in place as prescribed Yes Has compression in place as prescribed No Has offloadiing in place as prescribed No Experienced any changes in pain level or No management Left Footwear Diabetic Shoe Right Footwear Diabetic Shoe Pain Scale: 0-10 Numeric Is Patient Pain Free? Yes [facility] Nurse 1 - General Ulcer Measurement Start: 12/15/20 08:28 Freq: Status: Active Protocol: Activity Type Activity Date Activity User E-Sign Co-Sign Detail Recorded Client Recorded Date Recorded By Document 12/15/20 08:28 RB [id number] 12/15/20 08:43 RB 12/15/20 08:28 Wound Center Nurse 1 #27 left plantar mid foot -Combined with other wound No -Current Size (cm) - Length 1.3 -Current Size (cm) - Width 1.2 -Current Size (cm) - Depth 0.1 -Total Square Cm 1.56 -Tunneling No -Undermining/Tunneling No -Circular Undermining No -Exudate Amt Medium -Exudate Type Serosanguineous -Wound Margin Distinct, Outline Attached -Granulation Amt Medium (34-66%) -Granulation Quality [place] -Slough/Fibrin Yes -Necrosis Amt Small (1-33%) -Necrotic Tissue Type Adherent Slough -Structure Exposed N/A -Texture (Jaylyn-wound Skin Appearance) Assessed,Callus -Moisture (Jaylyn-wound Skin Appearance) Assessed,Dry/ Scaly -Color (Jaylyn-wound Skin Appearance) Assessed -Temperature (Jaylyn-wound Skin No Abnormality Appearance) (Pt Warm) -Tenderness on Palpation (Jaylyn-wound No Skin Appearance) -Ulcer Cleansing Wound Cleanser -Foul Odor after Cleansing No -Anesthetic Used 4% Lidocaine Solution #25 right 2nd toe -Combined with other wound No -Current Size (cm) - Length 0.1 -Current Size (cm) - Width 0.1 -Current Size (cm) - Depth 0.1 -Total Square Cm 0.01 -Tunneling No -Undermining/Tunneling No -Circular Undermining No -Exudate Amt Small -Exudate Type Serosanguineous -Wound Margin Distinct, Outline Attached -Granulation Amt Medium (34-66%) -Granulation Quality [place] -Slough/Fibrin Yes -Necrosis Amt Large (67-100%) -Necrotic Tissue Type Adherent Slough -Structure Exposed N/A -Texture (Jaylyn-wound Skin Appearance) Assessed -Moisture (Jaylyn-wound Skin Appearance) Dry/Scaly -Color (Jaylyn-wound Skin Appearance) Assessed -Temperature (Jaylyn-wound Skin No Abnormality Appearance) (Pt Warm) -Tenderness on Palpation (Jaylyn-wound No Skin Appearance) -Ulcer Cleansing Wound Cleanser -Foul Odor after Cleansing No -Anesthetic Used 4% Lidocaine Solution #24 right lateral foot -Combined with other wound No -Current Size (cm) - Length 0.8 -Current Size (cm) - Width 0.1 -Current Size (cm) - Depth 0.1 -Total Square Cm 0.08 -Tunneling No -Undermining/Tunneling No -Circular Undermining No -Exudate Amt Medium -Exudate Type Serosanguineous -Wound Margin Distinct, Outline Attached -Granulation Amt Medium (34-66%) -Granulation Quality [place] -Slough/Fibrin Yes -Necrosis Amt Medium (34-66%) -Necrotic Tissue Type Adherent Slough -Structure Exposed N/A -Texture (Jaylyn-wound Skin Appearance) Assessed -Moisture (Jaylyn-wound Skin Appearance) Assessed -Color (Jaylyn-wound Skin Appearance) Assessed -Temperature (Jaylyn-wound Skin No Abnormality Appearance) (Pt Warm) -Tenderness on Palpation (Jaylyn-wound No Skin Appearance) -Ulcer Cleansing Wound Cleanser -Foul Odor after Cleansing No -Anesthetic Used 4% Lidocaine Solution #19 Left Lateral LE -Combined with other wound No -Current Size (cm) - Length 0.8 -Current Size (cm) - Width 0.8 -Current Size (cm) - Depth 0.2 -Total Square Cm 0.64 -Tunneling No -Undermining/Tunneling No -Circular Undermining No -Exudate Amt Medium -Exudate Type Serosanguineous -Wound Margin Flat & Intact -Granulation Amt Medium (34-66%) -Granulation Quality [place] -Slough/Fibrin Yes -Necrosis Amt Medium (34-66%) -Necrotic Tissue Type Adherent Slough -Structure Exposed N/A -Texture (Jaylyn-wound Skin Appearance) Assessed -Moisture (Jaylyn-wound Skin Appearance) Assessed -Color (Jaylyn-wound Skin Appearance) Assessed -Temperature (Jaylyn-wound Skin No Abnormality Appearance) (Pt Warm) -Tenderness on Palpation (Jaylyn-wound No Skin Appearance) -Ulcer Cleansing Wound Cleanser -Foul Odor after Cleansing No -Anesthetic Used 4% Lidocaine Solution Lower Limb Edema Present Yes Right Calf (cm) 43 Right Ankle (cm) 27.5 Left Calf (cm) 44.8 Left Ankle (cm) 29 WC - Nurse 2 - General Ulcer CM Notes Start: 12/15/20 08:28 Freq: Status: Active Protocol: Activity Type Activity Date Activity User E-Sign Co-Sign Detail Recorded Client Recorded Date Recorded By Document 12/15/20 08:46 MW [id number] 12/15/20 09:05 MW 12/15/20 08:46 Wound Center Nurse 2 #28 left 2nd, 3rd, 4th toe cluster -Time 09:03 -Correct Patient Yes -Correct Side, Site, Position Yes -Correct Procedure Yes -Procedure Performed Yes -Type of Procedure Debridement -Clinical Debridement Subcutaneous -Tissue Removed Subcutaneous -Post Debridement (cm) - Length 1.1 -Post Debridement (cm) - Width 3.0 -Post Debridement (cm) - Depth 0.1 -Total Square (Post) (cm) 3.30 -Area of Debridement (cm) - Length 1.1 -Area of Debridement (cm) - Width 3.0 -Total Square (Area) (cm) 3.30 -Tunneling No -Undermining/Tunneling No -Circular Undermining No -Wound/Ulcer Outcome Not Healed -Ulcer Cleansing Rinsed/ Irrigated with Saline -Foul Odor after Cleansing No -Bioengineered Tissue No -Bleeding Controlled with Pressure -Offloading No -Treatment Response Procedure Tolerated Well -Debridement - Subq, 1st 20sq cm No #27 left plantar mid foot -Time 08:48 -Correct Patient Yes -Correct Side, Site, Position Yes -Correct Procedure Yes -Procedure Performed Yes -Type of Procedure Debridement -Clinical Debridement Subcutaneous -Tissue Removed Subcutaneous -Post Debridement (cm) - Length 0.3 -Post Debridement (cm) - Width 2.0 -Post Debridement (cm) - Depth 0.1 -Total Square (Post) (cm) 0.60 -Area of Debridement (cm) - Length 0.3 -Area of Debridement (cm) - Width 2.0 -Total Square (Area) (cm) 0.60 -Tunneling No -Undermining/Tunneling No -Circular Undermining No -Wound/Ulcer Outcome Not Healed -Ulcer Cleansing Rinsed/ Irrigated with Saline -Foul Odor after Cleansing No -Bioengineered Tissue No -Bleeding Controlled with Pressure -Offloading No -Treatment Response Procedure Tolerated Well -Debridement - Subq, 1st 20sq cm Yes #25 right 2nd toe -Time 08:52 -Correct Patient Yes -Correct Side, Site, Position Yes -Correct Procedure Yes -Procedure Performed Yes -Type of Procedure Debridement -Clinical Debridement Subcutaneous -Tissue Removed Subcutaneous -Post Debridement (cm) - Length 0.8 -Post Debridement (cm) - Width 0.8 -Post Debridement (cm) - Depth 0.1 -Total Square (Post) (cm) 0.64 -Area of Debridement (cm) - Length 0.8 -Area of Debridement (cm) - Width 0.8 -Total Square (Area) (cm) 0.64 -Tunneling No -Undermining/Tunneling No -Circular Undermining No -Wound/Ulcer Outcome Not Healed -Ulcer Cleansing Rinsed/ Irrigated with Saline -Foul Odor after Cleansing No -Bioengineered Tissue No -Bleeding Controlled with Pressure -Offloading No -Treatment Response Procedure Tolerated Well -Debridement - Subq, 1st 20sq cm No #24 right lateral foot -Time 09:02 -Correct Patient Yes -Correct Side, Site, Position Yes -Correct Procedure Yes -Procedure Performed No -Post Debridement (cm) - Length 0 -Post Debridement (cm) - Width 0 -Post Debridement (cm) - Depth 0 -Total Square (Post) (cm) 0 -Tunneling No -Undermining/Tunneling No -Circular Undermining No -Wound/Ulcer Outcome Healed- Epithelialized -Ulcer Cleansing Rinsed/ Irrigated with Saline -Foul Odor after Cleansing No -Bioengineered Tissue No #19 Left Lateral LE -Time 08:49 -Correct Patient Yes -Correct Side, Site, Position Yes -Correct Procedure Yes -Procedure Performed No -Post Debridement (cm) - Length 0 -Post Debridement (cm) - Width 0 -Post Debridement (cm) - Depth 0 -Total Square (Post) (cm) 0 -Wound/Ulcer Outcome Healed- Epithelialized Pain Scale: 0-10 Numeric Is Patient Pain Free? Yes WC - Nurse 3 - General Ulcer D/C NN Start: 12/15/20 08:28 Freq: Status: Active Protocol: Activity Type Activity Date Activity User E-Sign Co-Sign Detail Recorded Client Recorded Date Recorded By Document 12/15/20 09:05 MW [id number] 12/15/20 09:07 MW 12/15/20 09:05 Wound Care Nurse 3 #28 left 2nd, 3rd, 4th toe cluster -Ulcer Cleansing Rinsed/ Irrigated with Saline -Foul Odor after Cleansing No -Negative Pressure Wound Therapy N/A -Primary Dressing Applied Aquacel Extra -Primary Dressing Covered/Secured with Dry Gauze, Secured with Tape -Aquacel Extra 1 #27 left plantar mid foot -Ulcer Cleansing Rinsed/ Irrigated with Saline -Foul Odor after Cleansing No -Negative Pressure Wound Therapy N/A -Other Dressing aquacel extra -Primary Dressing Covered/Secured with Dry Gauze & Roll Gauze, Secured with Tape #25 right 2nd toe -Ulcer Cleansing Rinsed/ Irrigated with Saline -Foul Odor after Cleansing No -Negative Pressure Wound Therapy N/A -Other Dressing aquacel extra -Primary Dressing Covered/Secured with Dry Gauze & Roll Gauze, Secured with Tape Right -Lotion applied to leg before No compression wrap -Compression Wrap Krunal Wrap Left -Lotion applied to leg before Yes compression wrap -Compression Wrap Krunal Wrap Treatment Response Procedure Tolerated Well Pain Scale: 0-10 Numeric Is Patient Pain Free? Yes Teaching: Wound Center Dressing Your Wound -Person Taught Patient -Teaching Method Discussion, Demonstration -Response to teaching Verbalize understanding Wound debrided: right lateral foot Laterality: Right No debridement was completed: No debridement was completed today Additional Wound Wound debrided: Left 2nd, 3rd, 4th toe cluster Laterality: Left Type of Debridement: Excisional debridement Anesthesia Used: 4% Lidocaine Solution Depth: Down to and including healthy tissue and in the subcutaneous layer Percentage of wound debrided: 100 Instrument Used: 3mm curette Tissue Removed: Yellow slough, devitalized tissue Severity: Fat Layer Exposed Amount of bleeding with debridement: Mild Bleeding Controlled with: Compression and gauze Patient tolerated procedure: Patient tolerated procedure well Additional Wound Wound debrided: Left plantar midfoot Laterality: Left Type of Debridement: Excisional debridement Anesthesia Used: 4% Lidocaine Solution Depth: Down to and including healthy tissue and in the subcutaneous layer Percentage of wound debrided: 100 Instrument Used: 3mm curette Tissue Removed: Yellow slough, devitalized tissue Severity: Fat Layer Exposed Amount of bleeding with debridement: Mild Bleeding Controlled with: Compression and gauze Patient tolerated procedure: Patient tolerated procedure well Additional Wound Wound debrided: right 2nd toe Laterality: Right Type of Debridement: Excisional debridement Anesthesia Used: 4% Lidocaine Solution Depth: Down to and including healthy tissue and in the subcutaneous layer Percentage of wound debrided: 100 Instrument Used: 3mm curette Tissue Removed: Yellow slough, devitalized tissue Severity: Fat Layer Exposed Amount of bleeding with debridement: None Bleeding Controlled with: Compression and gauze Patient tolerated procedure: Patient tolerated procedure well Additional Wound Wound debrided: Left lateral foot Laterality: Left Type of Debridement: Excisional debridement Anesthesia Used: 4% Lidocaine Solution Depth: Down to and including healthy tissue and in the subcutaneous layer Percentage of wound debrided: 100 Instrument Used: 3mm curette Tissue Removed: Yellow slough, devitalized tissue Severity: Fat Layer Exposed Amount of bleeding with debridement: Mild Bleeding Controlled with: Compression and gauze Patient tolerated procedure: Patient tolerated procedure well Assessment/Plan Assessment/Plan (1) Ulcer of left lower extremity with fat layer exposed: CODE(S): L97.922 - Non-pressure chronic ulcer of unspecified part of left lower leg with fat layer exposed (2) Ulcer of left foot: CODE(S): L97.529 - Non-pressure chronic ulcer of other part of left foot with unspecified severity QUALIFIERS: Non-pressure ulcer stage: limited to breakdown of skin Qualified Code(s): L97.521 - Non-pressure chronic ulcer of other part of left foot limited to breakdown of skin (3) Ulcer of right lower extremity with fat layer exposed: CODE(S): L97.912 - Non-pressure chronic ulcer of unspecified part of right lower leg with fat layer exposed (4) Obesity: CODE(S): E66.9 - Obesity, unspecified QUALIFIERS: Obesity type: unspecified obesity type Obesity classification: adult class 2 (BMI 35 - 39.9) Serious obesity comorbidity presence: with serious comorbidity Body mass index: BMI 37.0-37.9 Qualified Code(s): E66.01 - Morbid (severe) obesity due to excess calories; Z68.37 - Body mass index [BMI] 37.0-37.9, adult (5) Chronic acquired lymphedema: CODE(S): I89.0 - Lymphedema, not elsewhere classified (6) Venous stasis dermatitis: CODE(S): I87.2 - Venous insufficiency (chronic) (peripheral) QUALIFIERS: Laterality: bilateral Qualified Code(s): I87.2 - Venous insufficiency (chronic) (peripheral) (7) Chronic kidney disease with end stage 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: CODE(S): N18.6 - End stage renal disease; Z99.2 - Dependence on renal dialysis (8) Lymphedema of both lower extremities: CODE(S): I89.0 - Lymphedema, not elsewhere classified (9) Type 2 diabetes mellitus: CODE(S): E11.9 - Type 2 diabetes mellitus without complications QUALIFIERS: Diabetes mellitus complication status: with kidney complications Diabetes mellitus complication detail: with chronic kidney disease Diabetes mellitus intermediate project manager insulin use: with intermediate project manager use Chronic kidney disease stage: on chronic dialysis Qualified Code(s): E11.22 - Type 2 diabetes mellitus with diabetic chronic kidney disease; N18.6 - End stage renal disease; Z79.4 - residential (current) use of insulin; Z99.2 - Dependence on renal dialysis PLAN: Mr. Russell's legs have lymphedema and chronic stasis dermatitis. The ulcers of his left plantar foot are somewhat improved. He also has new ulcers to his left toes and right second toe. Will dress his ulcers with Aquacel Extra M,W,F for heavy drainage. His recent labs have been reviewed. Encouraged adequate protein intake. Venous studies show resolution of his DVT. Arterial studies show no significant disease. He was advised to use zinc oxide or triamcinolone cream to his legs once daily to help with his dermatitis. Will plan on returning to maintenance control of his edema with KRUNAL wraps. He was advised to use his compression pumps twice daily and be vigilant with elevating his legs to avoid worsening of his edema which causes the cellulitis and ulcers. Call with worsening pain, drainage or odor. F/U in 1 week.
[2020-12-22 09:49] VITALS: BP 91/42; PULSE 102; RESP 18; TEMP 36.7; BMI 37.3
--- NOTE | 2020-12-22 14:19 | PCM.WC.PN ---
History of Present Illness Date of Service: 12/22/20 Chief Complaint: left lower extremity ulcer, cellulitis and edema b/l LE History of Wound: Mr. Russell is a 70 yo gentelman well-known to the wound center who presents due to new (recurrent) left lower extremity ulcer. Said to have started about a week ago. He initially noted increased fluid drainage and increased swelling and then erythema. His HH nurse was concerned regarding the appearance of the left lateral leg and it began draining more and his dialysis nurses were also concerned. He also has petechial appearing spots on his toes, and feet b/l but none of his upper extremities or more proximally. Denies chills, fever or otherwise feeling of unwell. He is on chronic dialysis and uses compression pumps to manage his edema. He recently underwent surgery for fistula placement for dialysis. He reports that his edema has been better than it has been in the past but has had scaling and drainage to his skin which had resolved when he was using UNNA boots when he was here last. He applies Eucerin, zinc oxide to his legs but this has not helped the scaling recently of his left leg. His left leg remains more swollen than his right and has significant keratosis. Subjective Subjective His left LE ulcer remains healed. The left lateral foot also remains healed. The plantar foot wound is improved but there is still moderate drainage and open areas and also several ulcers of his left dorsal 2,3,4th toes. He tolerated treatment with Aquacel Extra and ABD. He underwent arterial testing November 2020 and it showed mild PAD at the level of his ankles. Objective Data Objective Data Vital Signs: Vital Signs Temp Pulse Resp BP 98.1 F 102 H 18 91/42 L 12/22/20 09:49 12/22/20 09:49 12/22/20 09:49 12/22/20 09:49 Weight: 117.934 kg Body Mass Index (BMI) 37.3 Physical Exam Const alert, oriented x3 and no apparent distress General Appearance: cooperative Nutritional Appearance: morbidly obese Resp normal respiratory effort Effort and Inspection: able to speak in complete sentences Cardio regular rate and regular rhythm Extremity General Extremity: edema bilateral lower extremity Details: moderate Skin General Skin Exam: crusts, excoriation(s), lichenification, venous stasis and dermatitis Wounds: wounds noted Wound Narrative: as in clinical panel Psych mental status grossly normal, thought process normal, cooperative, affect normal and speech normal Debridement Note Debridement Note Post-Debridement Measurements and Additional Note: Post-Debridement Measurements/Treatment MAXX - Nurse 1 - General Ulcer Assessment Start: 12/15/20 08:28 Freq: Status: Active Protocol: JATIN Activity Type Activity Date Activity User E-Sign Co-Sign Detail Recorded Client Recorded Date Recorded By Document 12/15/20 08:28 RB [id number] 12/15/20 08:43 RB Document 12/22/20 09:49 RB [id number] 12/22/20 10:01 RB 12/15/20 12/22/20 08:28 09:49 WC - Today's Visit Information Type of service Follow-up Visit Follow-up Visit (Physician/PEOPLESOFT ADMINISTRATOR (Physician/PEOPLESOFT ADMINISTRATOR ) ) Arrival Mode Ambulatory, Ambulatory, Walker Walker Transfer Assistance None Manual Patient Identification Verified (Name & Yes Yes ) Patient Requires Transmission-Based No No Precautions Height and Weight Body Mass Index (BMI) 37.3 37.3 BMI Classification Obese Obese Vital Signs Temperature (97.8 F-99.1 F) 98 F 98.1 F Temperature Source Temporal Temporal Pulse Rate (60-100) 98 102 H Pulse Location Monitor Monitor Respiratory Rate (12-18) 18 18 Respiratory rate source Observation Observation Blood Pressure (90/60-120/80) 90/42 L 91/42 L Blood Pressure Mean (mm Hg) 58 58 Source Monitor Monitor Position Semi-Fowlers Semi-Fowlers Blood Pressure Location Left Arm Left Arm History Since Last Visit- (Skip if this is Patient's initial visit) Have you changed medications since your No No last visit? Any new allergies or adverse reactions No No Had a fall/change in ADL's that may No No increase risk of falls Signs or symptoms of abuse and/or No No neglect since last visit Have you been in the hospital since your No No last visit? Has dressing in place as prescribed Yes Yes Has compression in place as prescribed No Yes Has offloadiing in place as prescribed No No Experienced any changes in pain level or No No management Left Footwear Diabetic Shoe Diabetic Shoe Right Footwear Diabetic Shoe Diabetic Shoe Pain Scale: 0-10 Numeric Is Patient Pain Free? Yes Yes MAXX - Nurse 1 - General Ulcer Measurement Start: 12/15/20 08:28 Freq: Status: Active Protocol: Activity Type Activity Date Activity User E-Sign Co-Sign Detail Recorded Client Recorded Date Recorded By Document 12/15/20 08:28 RB [id number] 12/15/20 08:43 RB Document 12/22/20 09:49 RB [id number] 12/22/20 10:01 RB 12/15/20 12/22/20 08:28 09:49 Wound Center Nurse 1 #28 left 2nd, 3rd, 4th toe cluster -Combined with other wound No -Current Size (cm) - Length 4 -Current Size (cm) - Width 1.5 -Current Size (cm) - Depth 0.1 -Total Square Cm 6.0 -Tunneling No -Undermining/Tunneling No -Circular Undermining No -Exudate Amt Small -Exudate Type Serosanguineous -Wound Margin Distinct, Outline Attached -Granulation Amt Medium (34-66%) -Granulation Quality [place] -Slough/Fibrin Yes -Necrosis Amt Small (1-33%) -Necrotic Tissue Type Adherent Slough -Structure Exposed N/A -Texture (Jaylyn-wound Skin Appearance) Assessed -Moisture (Jaylyn-wound Skin Appearance) Dry/Scaly -Color (Jaylyn-wound Skin Appearance) Assessed -Temperature (Jaylyn-wound Skin No Abnormality Appearance) (Pt Warm) -Tenderness on Palpation (Jaylyn-wound No Skin Appearance) -Ulcer Cleansing Wound Cleanser -Foul Odor after Cleansing No -Anesthetic Used 4% Lidocaine Solution #27 left plantar mid foot -Combined with other wound No No -Current Size (cm) - Length 1.3 0.1 -Current Size (cm) - Width 1.2 0.1 -Current Size (cm) - Depth 0.1 0.1 -Total Square Cm 1.56 0.01 -Photo Taken No -Tunneling No No -Undermining/Tunneling No -Circular Undermining No No -Exudate Amt Medium Small -Exudate Type Serosanguineous Serosanguineous -Wound Margin Distinct, Flat & Intact Outline Attached -Granulation Amt Medium (34-66%) Large (67-100%) -Granulation Quality [place] -Slough/Fibrin Yes Yes -Necrosis Amt Small (1-33%) Small (1-33%) -Necrotic Tissue Type Adherent Slough Eschar -Structure Exposed N/A N/A -Texture (Jaylyn-wound Skin Appearance) Assessed,Callus Assessed -Moisture (Jaylyn-wound Skin Appearance) Assessed,Dry/ Dry/Scaly Scaly -Color (Jaylyn-wound Skin Appearance) Assessed Assessed -Temperature (Jaylyn-wound Skin No Abnormality No Abnormality Appearance) (Pt Warm) (Pt Warm) -Tenderness on Palpation (Jaylyn-wound No No Skin Appearance) -Ulcer Cleansing Wound Cleanser Wound Cleanser -Foul Odor after Cleansing No No -Anesthetic Used 4% Lidocaine 4% Lidocaine Solution Solution #25 right 2nd toe -Combined with other wound No No -Current Size (cm) - Length 0.1 0.1 -Current Size (cm) - Width 0.1 0.1 -Current Size (cm) - Depth 0.1 0.1 -Total Square Cm 0.01 0.01 -Tunneling No No -Undermining/Tunneling No No -Circular Undermining No No -Exudate Amt Small -Exudate Type Serosanguineous Serosanguineous -Wound Margin Distinct, Distinct, Outline Outline Attached Attached -Granulation Amt Medium (34-66%) Medium (34-66%) -Granulation Quality [place] -Slough/Fibrin Yes Yes -Necrosis Amt Large (67-100%) Small (1-33%) -Necrotic Tissue Type Adherent Slough Adherent Slough -Structure Exposed N/A N/A -Texture (Jaylyn-wound Skin Appearance) Assessed Assessed -Moisture (Jaylyn-wound Skin Appearance) Dry/Scaly Dry/Scaly -Color (Jaylyn-wound Skin Appearance) Assessed Assessed -Temperature (Jaylyn-wound Skin No Abnormality No Abnormality Appearance) (Pt Warm) (Pt Warm) -Tenderness on Palpation (Jaylyn-wound No No Skin Appearance) -Ulcer Cleansing Wound Cleanser Wound Cleanser -Foul Odor after Cleansing No No -Anesthetic Used 4% Lidocaine 4% Lidocaine Solution Solution #24 right lateral foot -Combined with other wound No -Current Size (cm) - Length 0.8 -Current Size (cm) - Width 0.1 -Current Size (cm) - Depth 0.1 -Total Square Cm 0.08 -Tunneling No -Undermining/Tunneling No -Circular Undermining No -Exudate Amt Medium -Exudate Type Serosanguineous -Wound Margin Distinct, Outline Attached -Granulation Amt Medium (34-66%) -Granulation Quality [place] -Slough/Fibrin Yes -Necrosis Amt Medium (34-66%) -Necrotic Tissue Type Adherent Slough -Structure Exposed N/A -Texture (Jaylyn-wound Skin Appearance) Assessed -Moisture (Jaylyn-wound Skin Appearance) Assessed -Color (Jaylyn-wound Skin Appearance) Assessed -Temperature (Jaylyn-wound Skin No Abnormality Appearance) (Pt Warm) -Tenderness on Palpation (Jaylyn-wound No Skin Appearance) -Ulcer Cleansing Wound Cleanser -Foul Odor after Cleansing No -Anesthetic Used 4% Lidocaine Solution #19 Left Lateral LE -Combined with other wound No -Current Size (cm) - Length 0.8 -Current Size (cm) - Width 0.8 -Current Size (cm) - Depth 0.2 -Total Square Cm 0.64 -Tunneling No -Undermining/Tunneling No -Circular Undermining No -Exudate Amt Medium -Exudate Type Serosanguineous -Wound Margin Flat & Intact -Granulation Amt Medium (34-66%) -Granulation Quality [place] -Slough/Fibrin Yes -Necrosis Amt Medium (34-66%) -Necrotic Tissue Type Adherent Slough -Structure Exposed N/A -Texture (Jaylyn-wound Skin Appearance) Assessed -Moisture (Jaylyn-wound Skin Appearance) Assessed -Color (Jaylyn-wound Skin Appearance) Assessed -Temperature (Jaylyn-wound Skin No Abnormality Appearance) (Pt Warm) -Tenderness on Palpation (Jaylyn-wound No Skin Appearance) -Ulcer Cleansing Wound Cleanser -Foul Odor after Cleansing No -Anesthetic Used 4% Lidocaine Solution Lower Limb Edema Present Yes Yes Right Calf (cm) 43 43.5 Right Ankle (cm) 27.5 29 Left Calf (cm) 44.8 44 Left Ankle (cm) 29 29.8 WC - Nurse 2 - General Ulcer CM Notes Start: 12/15/20 08:28 Freq: Status: Active Protocol: Activity Type Activity Date Activity User E-Sign Co-Sign Detail Recorded Client Recorded Date Recorded By Document 12/15/20 08:46 MW [id number] 12/15/20 09:05 MW Document 12/22/20 10:15 MW [id number] 12/22/20 10:23 MW 12/15/20 12/22/20 08:46 10:15 Wound Center Nurse 2 #28 left 2nd, 3rd, 4th toe cluster -Time 09:03 10:20 -Correct Patient Yes Yes -Correct Side, Site, Position Yes Yes -Correct Procedure Yes Yes -Procedure Performed Yes Yes -Type of Procedure Debridement Debridement -Clinical Debridement Subcutaneous Subcutaneous -Tissue Removed Subcutaneous Subcutaneous -Post Debridement (cm) - Length 1.1 1.3 -Post Debridement (cm) - Width 3.0 3.0 -Post Debridement (cm) - Depth 0.1 0.2 -Total Square (Post) (cm) 3.30 3.90 -Area of Debridement (cm) - Length 1.1 1.3 -Area of Debridement (cm) - Width 3.0 3.0 -Total Square (Area) (cm) 3.30 3.90 -Tunneling No No -Undermining/Tunneling No No -Circular Undermining No No -Wound/Ulcer Outcome Not Healed Not Healed -Ulcer Cleansing Rinsed/ Rinsed/ Irrigated with Irrigated with Saline Saline -Foul Odor after Cleansing No No -Bioengineered Tissue No No -Bleeding Controlled with Pressure Pressure -Offloading No No -Treatment Response Procedure Procedure Tolerated Well Tolerated Well -Debridement - Subq, 1st 20sq cm No No #27 left plantar mid foot -Time 08:48 10:19 -Correct Patient Yes Yes -Correct Side, Site, Position Yes Yes -Correct Procedure Yes Yes -Procedure Performed Yes Yes -Type of Procedure Debridement Debridement -Clinical Debridement Subcutaneous Subcutaneous -Tissue Removed Subcutaneous Subcutaneous -Post Debridement (cm) - Length 0.3 0.2 -Post Debridement (cm) - Width 2.0 0.6 -Post Debridement (cm) - Depth 0.1 0.1 -Total Square (Post) (cm) 0.60 0.12 -Area of Debridement (cm) - Length 0.3 0.2 -Area of Debridement (cm) - Width 2.0 0.6 -Total Square (Area) (cm) 0.60 0.12 -Tunneling No No -Undermining/Tunneling No No -Circular Undermining No No -Wound/Ulcer Outcome Not Healed Not Healed -Ulcer Cleansing Rinsed/ Rinsed/ Irrigated with Irrigated with Saline Saline -Foul Odor after Cleansing No No -Bioengineered Tissue No No -Bleeding Controlled with Pressure Pressure -Offloading No No -Treatment Response Procedure Procedure Tolerated Well Tolerated Well -Debridement - Subq, 1st 20sq cm Yes Yes #25 right 2nd toe -Time 08:52 10:17 -Correct Patient Yes Yes -Correct Side, Site, Position Yes Yes -Correct Procedure Yes Yes -Procedure Performed Yes No -Type of Procedure Debridement -Clinical Debridement Subcutaneous -Tissue Removed Subcutaneous -Post Debridement (cm) - Length 0.8 0 -Post Debridement (cm) - Width 0.8 0 -Post Debridement (cm) - Depth 0.1 0 -Total Square (Post) (cm) 0.64 0 -Area of Debridement (cm) - Length 0.8 -Area of Debridement (cm) - Width 0.8 -Total Square (Area) (cm) 0.64 -Tunneling No -Undermining/Tunneling No -Circular Undermining No -Wound/Ulcer Outcome Not Healed Healed- Epithelialized -Ulcer Cleansing Rinsed/ Irrigated with Saline -Foul Odor after Cleansing No -Bioengineered Tissue No -Bleeding Controlled with Pressure -Offloading No -Treatment Response Procedure Tolerated Well -Debridement - Subq, 1st 20sq cm No #24 right lateral foot -Time 09:02 -Correct Patient Yes -Correct Side, Site, Position Yes -Correct Procedure Yes -Procedure Performed No -Post Debridement (cm) - Length 0 -Post Debridement (cm) - Width 0 -Post Debridement (cm) - Depth 0 -Total Square (Post) (cm) 0 -Tunneling No -Undermining/Tunneling No -Circular Undermining No -Wound/Ulcer Outcome Healed- Epithelialized -Ulcer Cleansing Rinsed/ Irrigated with Saline -Foul Odor after Cleansing No -Bioengineered Tissue No #19 Left Lateral LE -Time 08:49 -Correct Patient Yes -Correct Side, Site, Position Yes -Correct Procedure Yes -Procedure Performed No -Post Debridement (cm) - Length 0 -Post Debridement (cm) - Width 0 -Post Debridement (cm) - Depth 0 -Total Square (Post) (cm) 0 -Wound/Ulcer Outcome Healed- Epithelialized Pain Scale: 0-10 Numeric Is Patient Pain Free? Yes Yes WC - Nurse 3 - General Ulcer D/C NN Start: 12/15/20 08:28 Freq: Status: Active Protocol: Activity Type Activity Date Activity User E-Sign Co-Sign Detail Recorded Client Recorded Date Recorded By Document 12/15/20 09:05 MW [id number] 12/15/20 09:07 MW Document 12/22/20 10:42 RB [id number] 12/22/20 10:43 RB 12/15/20 12/22/20 09:05 10:42 Wound Care Nurse 3 #28 left 2nd, 3rd, 4th toe cluster -Ulcer Cleansing Rinsed/ Irrigated with Saline -Foul Odor after Cleansing No -Negative Pressure Wound Therapy N/A -Primary Dressing Applied Aquacel Extra Aquacel Extra -Primary Dressing Covered/Secured with Dry Gauze, Dry Gauze,Dry Secured with Gauze & Roll Tape Gauze,Secured with Tape -Aquacel Extra 1 1 #27 left plantar mid foot -Ulcer Cleansing Rinsed/ Rinsed/ Irrigated with Irrigated with Saline Saline -Foul Odor after Cleansing No -Negative Pressure Wound Therapy N/A -Primary Dressing Applied Promogran Mackenzie Matter -Other Dressing aquacel extra abd -Primary Dressing Covered/Secured with Dry Gauze & Dry Gauze,Dry Roll Gauze, Gauze & Roll Secured with Gauze,Secured Tape with Tape -Promogran Mackenzie Matter 1 #25 right 2nd toe -Ulcer Cleansing Rinsed/ Irrigated with Saline -Foul Odor after Cleansing No -Negative Pressure Wound Therapy N/A -Other Dressing aquacel extra -Primary Dressing Covered/Secured with Dry Gauze & Roll Gauze, Secured with Tape Right -Lotion applied to leg before No compression wrap -Compression Wrap Krunal Wrap -Other cotton liner , krunal Left -Lotion applied to leg before Yes compression wrap -Compression Wrap Krunal Wrap -Other cotton liner , krunal Treatment Response Procedure Procedure Tolerated Well Tolerated Well Pain Scale: 0-10 Numeric Is Patient Pain Free? Yes Yes Teaching: Wound Center Dressing Your Wound -Person Taught Patient -Teaching Method Discussion, Demonstration -Response to teaching Verbalize understanding WC - Visit Discharge Discharge Condition Stable Ambulatory Status Ambulatory, Walker Transportation Private Auto Medication Reconcilliation completed & No provided to patient/care provider Clinical Summary of Care Provided Yes Wound debrided: left 2nd, 3rd, 4th toe cluster Laterality: Left Type of Debridement: Excisional debridement Anesthesia Used: 4% Lidocaine Solution Depth: Down to and including healthy tissue and in the subcutaneous layer Percentage of wound debrided: 100 Instrument Used: 3mm curette Tissue Removed: Yellow slough, devitalized tissue Severity: Fat Layer Exposed Amount of bleeding with debridement: Mild Bleeding Controlled with: Pressure Patient tolerated procedure: Patient tolerated procedure well Additional Wound Wound debrided: left plantar midfoot Laterality: Left Type of Debridement: Excisional debridement Anesthesia Used: 4% Lidocaine Solution Depth: Down to and including healthy tissue and in the subcutaneous layer Percentage of wound debrided: 100 Instrument Used: 3mm curette Tissue Removed: Yellow slough, devitalized tissue Severity: Fat Layer Exposed Amount of bleeding with debridement: Mild Bleeding Controlled with: Compression and gauze Patient tolerated procedure: Patient tolerated procedure well Assessment/Plan Assessment/Plan (1) Ulcer of left lower extremity with fat layer exposed: CODE(S): L97.922 - Non-pressure chronic ulcer of unspecified part of left lower leg with fat layer exposed (2) Ulcer of left foot: CODE(S): L97.529 - Non-pressure chronic ulcer of other part of left foot with unspecified severity QUALIFIERS: Non-pressure ulcer stage: limited to breakdown of skin Qualified Code(s): L97.521 - Non-pressure chronic ulcer of other part of left foot limited to breakdown of skin (3) Ulcer of right lower extremity with fat layer exposed: CODE(S): L97.912 - Non-pressure chronic ulcer of unspecified part of right lower leg with fat layer exposed (4) Obesity: CODE(S): E66.9 - Obesity, unspecified QUALIFIERS: Obesity type: unspecified obesity type Obesity classification: adult class 2 (BMI 35 - 39.9) Serious obesity comorbidity presence: with serious comorbidity Body mass index: BMI 37.0-37.9 Qualified Code(s): E66.01 - Morbid (severe) obesity due to excess calories; Z68.37 - Body mass index [BMI] 37.0-37.9, adult (5) Chronic acquired lymphedema: CODE(S): I89.0 - Lymphedema, not elsewhere classified (6) Venous stasis dermatitis: CODE(S): I87.2 - Venous insufficiency (chronic) (peripheral) QUALIFIERS: Laterality: bilateral Qualified Code(s): I87.2 - Venous insufficiency (chronic) (peripheral) (7) Chronic kidney disease with end stage 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: CODE(S): N18.6 - End stage renal disease; Z99.2 - Dependence on renal dialysis (8) Lymphedema of both lower extremities: CODE(S): I89.0 - Lymphedema, not elsewhere classified (9) Type 2 diabetes mellitus: CODE(S): E11.9 - Type 2 diabetes mellitus without complications QUALIFIERS: Diabetes mellitus complication status: with kidney complications Diabetes mellitus complication detail: with chronic kidney disease Diabetes mellitus overhauler helper insulin use: with group home use Chronic kidney disease stage: on chronic dialysis Qualified Code(s): E11.22 - Type 2 diabetes mellitus with diabetic chronic kidney disease; N18.6 - End stage renal disease; Z79.4 - model [employer] firearms (current) use of insulin; Z99.2 - Dependence on renal dialysis PLAN: Mr. Russell's legs have lymphedema and chronic stasis dermatitis. The ulcers of his left plantar foot are nearly healed. His other ulcers of his left toes are healing. Will dress his left toe ulcers with Aquacel Extra M,W,F for heavy drainage and his left plantar foot ulcer with Promogran. His recent labs have been reviewed. Encouraged adequate protein intake. Venous studies show resolution of his DVT. Arterial studies show no significant disease. He was advised to use zinc oxide or triamcinolone cream to his legs once daily to help with his dermatitis. Will plan on returning to maintenance control of his edema with KRUNAL wraps. He was advised to use his compression pumps twice daily and be vigilant with elevating his legs to avoid worsening of his edema which causes the cellulitis and ulcers. Call with worsening pain, drainage or odor. F/U in 2 weeks.
[2021-01-05 11:01] VITALS: BP 90/46; PULSE 98; RESP 18; TEMP 36.1; BMI 37.3
--- NOTE | 2021-01-05 13:19 | PN.PCM_ITS ---
History of Present Illness Date of Service: 01/05/21 Chief Complaint: left lower extremity ulcer, cellulitis and edema b/l LE History of Wound: Mr. Russell is a 70 yo gentelman well-known to the wound center who presents due to new (recurrent) left lower extremity ulcer. Said to have started about a week ago. He initially noted increased fluid drainage and increased swelling and then erythema. His HH nurse was concerned regarding the appearance of the left lateral leg and it began draining more and his dialysis nurses were also concerned. He also has petechial appearing spots on his toes, and feet b/l but none of his upper extremities or more proximally. Denies chills, fever or otherwise feeling of unwell. He is on chronic dialysis and uses compression pumps to manage his edema. He recently underwent surgery for fistula placement for dialysis. He reports that his edema has been better than it has been in the past but has had scaling and drainage to his skin which had resolved when he was using UNNA boots when he was here last. He applies Eucerin, zinc oxide to his legs but this has not helped the scaling recently of his left leg. His left leg remains more swollen than his right and has significant keratosis. Subjective Subjective His left LE ulcer remains healed. The left lateral foot also remains healed. The plantar foot wound is improved but there is still minimal drainage and open areas and also several ulcers of his left dorsal 2,3,4th toes. He tolerated treatment with Aquacel Extra and ABD. He underwent arterial testing November 2020 and it showed mild PAD at the level of his ankles. Objective Data Objective Data Vital Signs: Vital Signs Temp Pulse Resp BP 97 F L 98 18 90/46 L 01/05/21 11:01 01/05/21 11:01 01/05/21 11:01 01/05/21 11:01 Weight: 117.934 kg Body Mass Index (BMI) 37.3 Physical Exam Const alert, oriented x3 and no apparent distress General Appearance: cooperative Nutritional Appearance: morbidly obese Resp normal respiratory effort Effort and Inspection: able to speak in complete sentences Cardio regular rate and regular rhythm Extremity General Extremity: edema bilateral lower extremity Details: moderate Skin General Skin Exam: crusts, excoriation(s), lichenification, venous stasis and dermatitis Wounds: wounds noted Wound Narrative: as in clinical panel Psych mental status grossly normal, thought process normal, cooperative, affect normal and speech normal Debridement Note Debridement Note Post-Debridement Measurements and Additional Note: Post-Debridement Measu rements/Treatment WC - Nurse 1 - General Ulcer Assessment Start: 12/15/20 08:28 Freq: Status: Active Protocol: JATIN Activity Type Activity Date Activity User E-Sign Co-Sign Detail Recorded Client Recorded Date Recorded By Document 12/15/20 08:28 RB [id number] 12/15/20 08:43 RB Document 12/22/20 09:49 RB [id number] 12/22/20 10:01 RB Document 01/05/21 11:01 RB [id number] 01/05/21 11:11 RB 12/15/20 12/22/20 01/05/21 08:28 09:49 11:01 - Today's Visit Information Type of service Follow-up Visit Follow-up Visit Follow-up Visit (Physician/VICE PRESIDENT REGULATORY (Physician/VICE PRESIDENT REGULATORY (Physician/VICE PRESIDENT REGULATORY ) ) ) Arrival Mode Ambulatory, Ambulatory, Ambulatory Walker Walker Transfer Assistance None Manual None Patient Identification Verified (Name & Yes Yes Yes ) Patient Requires Transmission-Based No No No Precautions Height and Weight Body Mass Index (BMI) 37.3 37.3 37.3 BMI Classification Obese Obese Obese Vital Signs Temperature (97.8 F-99.1 F) 98 F 98.1 F 97 F L Temperature Source Temporal Temporal Temporal Pulse Rate (60-100) 98 102 H 98 Pulse Location Monitor Monitor Monitor Respiratory Rate (12-18) 18 18 18 Respiratory rate source Observation Observation Observation Blood Pressure (90/60-120/80) 90/42 L 91/42 L 90/46 L Blood Pressure Mean (mm Hg) 58 58 60 Source Monitor Monitor Monitor Position Semi-Fowlers Semi-Fowlers Sitting Blood Pressure Location Left Arm Left Arm Left Arm History Since Last Visit- (Skip if this is Patient's initial visit) Have you changed medications since your No No No last visit? Any new allergies or adverse reactions No No No Had a fall/change in ADL's that may No No No increase risk of falls Signs or symptoms of abuse and/or No No No neglect since last visit Have you been in the hospital since your No No No last visit? Has dressing in place as prescribed Yes Yes Yes Has compression in place as prescribed No Yes No Has offloadiing in place as prescribed No No No Experienced any changes in pain level or No No No management Left Footwear Diabetic Shoe Diabetic Shoe Diabetic Shoe Right Footwear Diabetic Shoe Diabetic Shoe Diabetic Shoe Pain Scale: 0-10 Numeric Is Patient Pain Free? Yes Yes Yes WC - Nurse 1 - General Ulcer Measurement Start: 12/15/20 08:28 Freq: Status: Active Protocol: Activity Type Activity Date Activity User E-Sign Co-Sign Detail Recorded Client Recorded Date Recorded By Document 12/15/20 08:28 RB [id number] 12/15/20 08:43 RB Document 12/22/20 09:49 RB [id number] 12/22/20 10:01 RB Document 01/05/21 11:01 RB [id number] 01/05/21 11:11 RB 12/15/20 12/22/20 01/05/21 08:28 09:49 11:01 Wound Center Nurse 1 #28 left 2nd, 3rd, 4th toe cluster -Combined with other wound No No -Current Size (cm) - Length 4 3.4 -Current Size (cm) - Width 1.5 0.5 -Current Size (cm) - Depth 0.1 0.1 -Total Square Cm 6.0 1.70 -Tunneling No No -Undermining/Tunneling No No -Circular Undermining No No -Exudate Amt Small Medium -Exudate Type Serosanguineous Serosanguineous -Wound Margin Distinct, Distinct, Outline Outline Attached Attached -Granulation Amt Medium (34-66%) Medium (34-66%) -Granulation Quality [place] -Slough/Fibrin Yes Yes -Necrosis Amt Small (1-33%) Medium (34-66%) -Necrotic Tissue Type Adherent Slough Adherent Slough -Structure Exposed N/A N/A -Texture (Jaylyn-wound Skin Appearance) Assessed Assessed -Moisture (Jaylyn-wound Skin Appearance) Dry/Scaly Assessed -Color (Jaylyn-wound Skin Appearance) Assessed Assessed -Temperature (Jaylyn-wound Skin No Abnormality No Abnormality Appearance) (Pt Warm) (Pt Warm) -Tenderness on Palpation (Jaylyn-wound No No Skin Appearance) -Ulcer Cleansing Wound Cleanser Wound Cleanser -Foul Odor after Cleansing No No -Anesthetic Used 4% Lidocaine 5% Lidocaine Solution Gel #27 left plantar mid foot -Combined with other wound No No No -Current Size (cm) - Length 1.3 0.1 0.1 -Current Size (cm) - Width 1.2 0.1 0.1 -Current Size (cm) - Depth 0.1 0.1 0.1 -Total Square Cm 1.56 0.01 0.01 -Photo Taken No -Tunneling No No No -Undermining/Tunneling No No -Circular Undermining No No No -Exudate Amt Medium Small None Present -Exudate Type Serosanguineous Serosanguineous -Wound Margin Distinct, Flat & Intact Distinct, Outline Outline Attached Attached -Granulation Amt Medium (34-66%) Large (67-100%) Medium (34-66%) -Granulation Quality [place] -Slough/Fibrin Yes Yes Yes -Necrosis Amt Small (1-33%) Small (1-33%) Medium (34-66%) -Necrotic Tissue Type Adherent Slough Eschar Eschar -Structure Exposed N/A N/A N/A -Texture (Jaylyn-wound Skin Appearance) Assessed,Callus Assessed Assessed,Callus -Moisture (Jaylyn-wound Skin Appearance) Assessed,Dry/ Dry/Scaly Assessed Scaly -Color (Jaylyn-wound Skin Appearance) Assessed Assessed Assessed -Temperature (Jaylyn-wound Skin No Abnormality No Abnormality No Abnormality Appearance) (Pt Warm) (Pt Warm) (Pt Warm) -Tenderness on Palpation (Jaylyn-wound No No No Skin Appearance) -Ulcer Cleansing Wound Cleanser Wound Cleanser Wound Cleanser -Foul Odor after Cleansing No No No -Anesthetic Used 4% Lidocaine 4% Lidocaine 5% Lidocaine Solution Solution Gel #25 right 2nd toe -Combined with other wound No No -Current Size (cm) - Length 0.1 0.1 -Current Size (cm) - Width 0.1 0.1 -Current Size (cm) - Depth 0.1 0.1 -Total Square Cm 0.01 0.01 -Tunneling No No -Undermining/Tunneling No No -Circular Undermining No No -Exudate Amt Small -Exudate Type Serosanguineous Serosanguineous -Wound Margin Distinct, Distinct, Outline Outline Attached Attached -Granulation Amt Medium (34-66%) Medium (34-66%) -Granulation Quality [place] -Slough/Fibrin Yes Yes -Necrosis Amt Large (67-100%) Small (1-33%) -Necrotic Tissue Type Adherent Slough Adherent Slough -Structure Exposed N/A N/A -Texture (Jaylyn-wound Skin Appearance) Assessed Assessed -Moisture (Jaylyn-wound Skin Appearance) Dry/Scaly Dry/Scaly -Color (Jaylyn-wound Skin Appearance) Assessed Assessed -Temperature (Jaylyn-wound Skin No Abnormality No Abnormality Appearance) (Pt Warm) (Pt Warm) -Tenderness on Palpation (Jaylyn-wound No No Skin Appearance) -Ulcer Cleansing Wound Cleanser Wound Cleanser -Foul Odor after Cleansing No No -Anesthetic Used 4% Lidocaine 4% Lidocaine Solution Solution #24 right lateral foot -Combined with other wound No -Current Size (cm) - Length 0.8 -Current Size (cm) - Width 0.1 -Current Size (cm) - Depth 0.1 -Total Square Cm 0.08 -Tunneling No -Undermining/Tunneling No -Circular Undermining No -Exudate Amt Medium -Exudate Type Serosanguineous -Wound Margin Distinct, Outline Attached -Granulation Amt Medium (34-66%) -Granulation Quality [place] -Slough/Fibrin Yes -Necrosis Amt Medium (34-66%) -Necrotic Tissue Type Adherent Slough -Structure Exposed N/A -Texture (Jaylyn-wound Skin Appearance) Assessed -Moisture (Jaylyn-wound Skin Appearance) Assessed -Color (Jaylyn-wound Skin Appearance) Assessed -Temperature (Jaylyn-wound Skin No Abnormality Appearance) (Pt Warm) -Tenderness on Palpation (Jaylyn-wound No Skin Appearance) -Ulcer Cleansing Wound Cleanser -Foul Odor after Cleansing No -Anesthetic Used 4% Lidocaine Solution #19 Left Lateral LE -Combined with other wound No -Current Size (cm) - Length 0.8 -Current Size (cm) - Width 0.8 -Current Size (cm) - Depth 0.2 -Total Square Cm 0.64 -Tunneling No -Undermining/Tunneling No -Circular Undermining No -Exudate Amt Medium -Exudate Type Serosanguineous -Wound Margin Flat & Intact -Granulation Amt Medium (34-66%) -Granulation Quality [place] -Slough/Fibrin Yes -Necrosis Amt Medium (34-66%) -Necrotic Tissue Type Adherent Slough -Structure Exposed N/A -Texture (Jaylyn-wound Skin Appearance) Assessed -Moisture (Jaylyn-wound Skin Appearance) Assessed -Color (Jaylyn-wound Skin Appearance) Assessed -Temperature (Jaylyn-wound Skin No Abnormality Appearance) (Pt Warm) -Tenderness on Palpation (Jaylyn-wound No Skin Appearance) -Ulcer Cleansing Wound Cleanser -Foul Odor after Cleansing No -Anesthetic Used 4% Lidocaine Solution Lower Limb Edema Present Yes Yes Yes Right Calf (cm) 43 43.5 43 Right Ankle (cm) 27.5 29 29 Left Calf (cm) 44.8 44 46 Left Ankle (cm) 29 29.8 31 WC - Nurse 2 - General Ulcer CM Notes Start: 12/15/20 08:28 Freq: Status: Active Protocol: Activity Type Activity Date Activity User E-Sign Co-Sign Detail Recorded Client Recorded Date Recorded By Document 12/15/20 08:46 MW [id number] 12/15/20 09:05 MW Document 12/22/20 10:15 MW [id number] 12/22/20 10:23 MW Document 01/05/21 11:45 MW [id number] 01/05/21 11:52 MW 12/15/20 12/22/20 01/05/21 08:46 10:15 11:45 Wound Center Nurse 2 #28 left 2nd, 3rd, 4th toe cluster -Time 09:03 10:20 11:46 -Correct Patient Yes Yes Yes -Correct Side, Site, Position Yes Yes Yes -Correct Procedure Yes Yes Yes -Procedure Performed Yes Yes Yes -Type of Procedure Debridement Debridement Debridement -Clinical Debridement Subcutaneous Subcutaneous Subcutaneous -Tissue Removed Subcutaneous Subcutaneous Subcutaneous -Post Debridement (cm) - Length 1.1 1.3 0.8 -Post Debridement (cm) - Width 3.0 3.0 1.8 -Post Debridement (cm) - Depth 0.1 0.2 0.1 -Total Square (Post) (cm) 3.30 3.90 1.44 -Area of Debridement (cm) - Length 1.1 1.3 0.8 -Area of Debridement (cm) - Width 3.0 3.0 1.8 -Total Square (Area) (cm) 3.30 3.90 1.44 -Tunneling No No No -Undermining/Tunneling No No No -Circular Undermining No No No -Wound/Ulcer Outcome Not Healed Not Healed Not Healed -Ulcer Cleansing Rinsed/ Rinsed/ Rinsed/ Irrigated with Irrigated with Irrigated with Saline Saline Saline -Foul Odor after Cleansing No No No -Bioengineered Tissue No No No -Bleeding Controlled with Pressure Pressure Pressure -Offloading No No No -Treatment Response Procedure Procedure Procedure Tolerated Well Tolerated Well Tolerated Well -Debridement - Subq, 1st 20sq cm No No Yes #27 left plantar mid foot -Time 08:48 10:19 11:46 -Correct Patient Yes Yes Yes -Correct Side, Site, Position Yes Yes Yes -Correct Procedure Yes Yes Yes -Procedure Performed Yes Yes Yes -Type of Procedure Debridement Debridement Debridement -Clinical Debridement Subcutaneous Subcutaneous Subcutaneous -Tissue Removed Subcutaneous Subcutaneous Subcutaneous -Post Debridement (cm) - Length 0.3 0.2 0.1 -Post Debridement (cm) - Width 2.0 0.6 0.3 -Post Debridement (cm) - Depth 0.1 0.1 0.1 -Total Square (Post) (cm) 0.60 0.12 0.03 -Area of Debridement (cm) - Length 0.3 0.2 0.1 -Area of Debridement (cm) - Width 2.0 0.6 0.3 -Total Square (Area) (cm) 0.60 0.12 0.03 -Tunneling No No No -Undermining/Tunneling No No No -Circular Undermining No No No -Wound/Ulcer Outcome Not Healed Not Healed Not Healed -Ulcer Cleansing Rinsed/ Rinsed/ Rinsed/ Irrigated with Irrigated with Irrigated with Saline Saline Saline -Foul Odor after Cleansing No No No -Bioengineered Tissue No No No -Bleeding Controlled with Pressure Pressure Pressure -Offloading No No No -Treatment Response Procedure Procedure Tolerated Well Tolerated Well -Debridement - Subq, 1st 20sq cm Yes Yes No #25 right 2nd toe -Time 08:52 10:17 -Correct Patient Yes Yes -Correct Side, Site, Position Yes Yes -Correct Procedure Yes Yes -Procedure Performed Yes No -Type of Procedure Debridement -Clinical Debridement Subcutaneous -Tissue Removed Subcutaneous -Post Debridement (cm) - Length 0.8 0 -Post Debridement (cm) - Width 0.8 0 -Post Debridement (cm) - Depth 0.1 0 -Total Square (Post) (cm) 0.64 0 -Area of Debridement (cm) - Length 0.8 -Area of Debridement (cm) - Width 0.8 -Total Square (Area) (cm) 0.64 -Tunneling No -Undermining/Tunneling No -Circular Undermining No -Wound/Ulcer Outcome Not Healed Healed- Epithelialized -Ulcer Cleansing Rinsed/ Irrigated with Saline -Foul Odor after Cleansing No -Bioengineered Tissue No -Bleeding Controlled with Pressure -Offloading No -Treatment Response Procedure Tolerated Well -Debridement - Subq, 1st 20sq cm No #24 right lateral foot -Time 09:02 -Correct Patient Yes -Correct Side, Site, Position Yes -Correct Procedure Yes -Procedure Performed No -Post Debridement (cm) - Length 0 -Post Debridement (cm) - Width 0 -Post Debridement (cm) - Depth 0 -Total Square (Post) (cm) 0 -Tunneling No -Undermining/Tunneling No -Circular Undermining No -Wound/Ulcer Outcome Healed- Epithelialized -Ulcer Cleansing Rinsed/ Irrigated with Saline -Foul Odor after Cleansing No -Bioengineered Tissue No #19 Left Lateral LE -Time 08:49 -Correct Patient Yes -Correct Side, Site, Position Yes -Correct Procedure Yes -Procedure Performed No -Post Debridement (cm) - Length 0 -Post Debridement (cm) - Width 0 -Post Debridement (cm) - Depth 0 -Total Square (Post) (cm) 0 -Wound/Ulcer Outcome Healed- Epithelialized Pain Scale: 0-10 Numeric Is Patient Pain Free? Yes Yes Yes WC - Nurse 3 - General Ulcer D/C NN Start: 12/15/20 08:28 Freq: Status: Active Protocol: Activity Type Activity Date Activity User E-Sign Co-Sign Detail Recorded Client Recorded Date Recorded By Document 12/15/20 09:05 MW [id number] 12/15/20 09:07 MW Document 12/22/20 10:42 RB [id number] 12/22/20 10:43 RB Document 01/05/21 12:06 RB [id number] 01/05/21 12:12 RB 12/15/20 12/22/20 01/05/21 09:05 10:42 12:06 Wound Care Nurse 3 #28 left 2nd, 3rd, 4th toe cluster -Ulcer Cleansing Rinsed/ Rinsed/ Irrigated with Irrigated with Saline Saline -Foul Odor after Cleansing No -Negative Pressure Wound Therapy N/A -Primary Dressing Applied Aquacel Extra Aquacel Extra Promogran Laura Matter -Primary Dressing Covered/Secured with Dry Gauze, Dry Gauze,Dry Dry Gauze,Dry Secured with Gauze & Roll Gauze & Roll Tape Gauze,Secured Gauze,Secured with Tape with Tape -Aquacel Extra 1 1 -Promogran Laura Matter 1 #27 left plantar mid foot -Ulcer Cleansing Rinsed/ Rinsed/ Rinsed/ Irrigated with Irrigated with Irrigated with Saline Saline Saline -Foul Odor after Cleansing No -Negative Pressure Wound Therapy N/A -Primary Dressing Applied Promogran Laura Matter -Other Dressing aquacel extra abd laura,abd -Primary Dressing Covered/Secured with Dry Gauze & Dry Gauze,Dry Dry Gauze,Dry Roll Gauze, Gauze & Roll Gauze & Roll Secured with Gauze,Secured Gauze,Secured Tape with Tape with Tape -Promogran Laura Matter 1 #25 right 2nd toe -Ulcer Cleansing Rinsed/ Irrigated with Saline -Foul Odor after Cleansing No -Negative Pressure Wound Therapy N/A -Other Dressing aquacel extra -Primary Dressing Covered/Secured with Dry Gauze & Roll Gauze, Secured with Tape Right -Lotion applied to leg before No compression wrap -Compression Wrap Krunal Wrap -Other cotton liner , krunal krunal Left -Lotion applied to leg before Yes compression wrap -Compression Wrap Krunal Wrap -Other cotton liner , krunal krunal Treatment Response Procedure Procedure Procedure Tolerated Well Tolerated Well Tolerated Well Pain Scale: 0-10 Numeric Is Patient Pain Free? Yes Yes Yes Teaching: Wound Center Dressing Your Wound -Person Taught Patient -Teaching Method Discussion, Demonstration -Response to teaching Verbalize understanding WC - Visit Discharge Discharge Condition Stable Stable Ambulatory Status Ambulatory, Ambulatory, Walker Walker Transportation Private Auto Private Auto Medication Reconcilliation completed & No No provided to patient/care provider Clinical Summary of Care Provided Yes Yes Wound debrided: left plantar midfoot ulcer Laterality: Left Type of Debridement: Excisional debridement Anesthesia Used: 4% Lidocaine Solution Depth: Down to and including healthy tissue and in the subcutaneous layer Percentage of wound debrided: 100 Instrument Used: 3mm curette Tissue Removed: Yellow slough, devitalized tissue Severity: Fat Layer Exposed Amount of bleeding with debridement: Mild Bleeding Controlled with: Pressure Patient tolerated procedure: Patient tolerated procedure well Additional Wound Wound debrided: left 2nd, 3rd, 4th toe cluster Laterality: Left Type of Debridement: Excisional debridement Anesthesia Used: 4% Lidocaine Solution Depth: Down to and including healthy tissue and in the subcutaneous layer Percentage of wound debrided: 100 Instrument Used: 3mm curette Tissue Removed: Yellow slough, devitalized tissue Severity: Fat Layer Exposed Amount of bleeding with debridement: Mild Bleeding Controlled with: Compression and gauze Patient tolerated procedure: Patient tolerated procedure well Assessment/Plan Assessment/Plan (1) Ulcer of left lower extremity with fat layer exposed: CODE(S): L97.922 - Non-pressure chronic ulcer of unspecified part of left lower leg with fat layer exposed (2) Ulcer of left foot: CODE(S): L97.529 - Non-pressure chronic ulcer of other part of left foot with unspecified severity QUALIFIERS: Non-pressure ulcer stage: limited to breakdown of skin Qualified Code(s): L97.521 - Non-pressure chronic ulcer of other part of left foot limited to breakdown of skin (3) Ulcer of right lower extremity with fat layer exposed: CODE(S): L97.912 - Non-pressure chronic ulcer of unspecified part of right lower leg with fat layer exposed (4) Obesity: CODE(S): E66.9 - Obesity, unspecified QUALIFIERS: Obesity type: unspecified obesity type Obesity classification: adult class 2 (BMI 35 - 39.9) Serious obesity comorbidity presence: with serious comorbidity Body mass index: BMI 37.0-37.9 Qualified Code(s): E66.01 - Morbid (severe) obesity due to excess calories; Z68.37 - Body mass index [BMI] 37.0-37.9, adult (5) Chronic acquired lymphedema: CODE(S): I89.0 - Lymphedema, not elsewhere classified (6) Venous stasis dermatitis: CODE(S): I87.2 - Venous insufficiency (chronic) (peripheral) QUALIFIERS: Laterality: bilateral Qualified Code(s): I87.2 - Venous insufficiency (chronic) (peripheral) (7) Chronic kidney disease with end stage 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: CODE(S): N18.6 - End stage renal disease; Z99.2 - Dependence on renal dialysis (8) Lymphedema of both lower extremities: CODE(S): I89.0 - Lymphedema, not elsewhere classified (9) Type 2 diabetes mellitus: CODE(S): E11.9 - Type 2 diabetes mellitus without complications QUALIFIERS: Diabetes mellitus complication status: with kidney complications Diabetes mellitus complication detail: with chronic kidney disease Diabetes mellitus fci insulin use: with long chain quiller tender use Chronic kidney disease stage: on chronic dialysis Qualified Code(s): E11.22 - Type 2 diabetes mellitus with diabetic chronic kidney disease; N18.6 - End stage renal disease; Z79.4 - retirement (current) use of insulin; Z99.2 - Dependence on renal dialysis PLAN: Mr. Russell's legs have lymphedema and chronic stasis dermatitis. The ulcers of his left plantar foot are nearly healed. His other ulcers of his left toes are healing. Will dress his left toe ulcers with Promogran M,W,F for moderate drainage and his left plantar foot ulcer with Promogran. His recent labs have been reviewed. Encouraged adequate protein intake. Venous studies show resolution of his DVT. Arterial studies show no significant disease. He was advised to use zinc oxide or triamcinolone cream to his legs once daily to help with his dermatitis. Will plan on returning to maintenance control of his edema with KRUNAL wraps. He was advised to use his compression pumps twice daily and be vigilant with elevating his legs to avoid worsening of his edema which causes the cellulitis and ulcers. Call with worsening pain, drainage or odor. F/U in 2 weeks.
== END 2021-01-09 23:59 ==
LOC: WC 10:30
PROVIDERS: PCP Family Medicine; Referring Provider Family Medicine; Visit Provider Family Medicine
DX: E11.621 Type 2 diabetes mellitus with foot ulcer (principal); L97.512 Non-pressure chronic ulcer of other part of right foot with fat layer exposed; L97.522 Non-pressure chronic ulcer of other part of left foot with fat layer exposed; E66.9 Obesity, unspecified; Z68.37 Body mass index [BMI] 37.0-37.9, adult; I87.2 Venous insufficiency (chronic) (peripheral); I89.0 Lymphedema, not elsewhere classified; E11.22 Type 2 diabetes mellitus with diabetic chronic kidney disease; N18.6 End stage renal disease; Z99.2 Dependence on renal dialysis; R21 Rash and other nonspecific skin eruption; R23.3 Spontaneous ecchymoses; R60.9 Edema, unspecified
CPT/HCPCS: 11042; 99213; G0463

== ENCOUNTER 2021-02-02 10:30 | Outpatient (RCR) | payer MEDICARE, OTHER, SELFPAY ==
[2021-01-10 00:31] VITALS: BP 90/46; PULSE 98; RESP 18; TEMP 36.1; BMI 37.3
[2021-01-19 09:24] VITALS: BP 91/49; PULSE 97; RESP 16; TEMP 35.9; BMI 37.3
--- NOTE | 2021-01-19 10:28 | PCM.WC.PN ---
History of Present Illness Date of Service: 01/19/21 Chief Complaint: left lower extremity ulcer, cellulitis and edema b/l LE History of Wound: Mr. Russell is a 70 yo gentelman well-known to the wound center who presents due to new (recurrent) left lower extremity ulcer. Said to have started about a week ago. He initially noted increased fluid drainage and increased swelling and then erythema. His HH nurse was concerned regarding the appearance of the left lateral leg and it began draining more and his dialysis nurses were also concerned. He also has petechial appearing spots on his toes, and feet b/l but none of his upper extremities or more proximally. Denies chills, fever or otherwise feeling of unwell. He is on chronic dialysis and uses compression pumps to manage his edema. He recently underwent surgery for fistula placement for dialysis. He reports that his edema has been better than it has been in the past but has had scaling and drainage to his skin which had resolved when he was using UNNA boots when he was here last. He applies Eucerin, zinc oxide to his legs but this has not helped the scaling recently of his left leg. His left leg remains more swollen than his right and has significant keratosis. Subjective Subjective His left lateral LE ulcer remains healed. The left lateral foot has opened again with mild-moderate drainage. The plantar foot wound is healed. There are several ulcers of his left dorsal 2,3,4th toes which are still present but are improved. He tolerated treatment with Mackenzie. He underwent arterial testing November 2020 and it showed mild PAD at the level of his ankles. Objective Data Objective Data Vital Signs: Vital Signs Temp Pulse Resp BP 96.6 F L 97 16 91/49 L 01/19/21 09:24 01/19/21 09:24 01/19/21 09:24 01/19/21 09:24 Weight: 117.934 kg Body Mass Index (BMI) 37.3 Physical Exam Const alert, oriented x3 and no apparent distress General Appearance: lethargic Nutritional Appearance: obese HEENT normocephalic and head/scalp atraumatic Lymph Lymphatic: lymphedema severe Lymphatic Narrative: bilateral LE Resp normal respiratory effort and normal air movement Cardio regular rate and regular rhythm Skin Wounds: wounds noted Wound Narrative: as in clinical panel Psych mental status grossly normal, thought process normal, cooperative and affect normal Debridement Note Debridement Note Wound debrided: Left plantar midfoot Laterality: Left No debridement was completed: No debridement was completed today (ulcer is healed) Post-Debridement Measurements and Additional Note: Post-Debridement Measurements/Treatment MAXX - Nurse 1 - General Ulcer Assessment Start: 01/19/21 09:24 Freq: Status: Active Protocol: JATIN Activity Type Activity Date Activity User E-Sign Co-Sign Detail Recorded Client Recorded Date Recorded By Document 01/19/21 09:24 JIM [id number] 01/19/21 09:35 JIM 01/19/21 09:24 - Today's Visit Information Type of service Follow-up Visit (Physician/SECURITY CLERK ) Arrival Mode Ambulatory, Walker Patient Identification Verified (Name & No ) Patient Requires Transmission-Based No Precautions Height and Weight Body Mass Index (BMI) 37.3 BMI Classification Obese Vital Signs Temperature (97.8 F-99.1 F) 96.6 F L Temperature Source Temporal Pulse Rate (60-100) 97 Pulse Location Monitor Respiratory Rate (12-18) 16 Respiratory rate source Observation Blood Pressure (90/60-120/80) 91/49 L Blood Pressure Mean (mm Hg) 63 Source Monitor Position Sitting Blood Pressure Location Right Arm History Since Last Visit- (Skip if this is Patient's initial visit) Have you changed medications since your No last visit? Any new allergies or adverse reactions No Had a fall/change in ADL's that may No increase risk of falls Signs or symptoms of abuse and/or No neglect since last visit Have you been in the hospital since your No last visit? Has dressing in place as prescribed Yes Has compression in place as prescribed N/A Has offloadiing in place as prescribed N/A Experienced any changes in pain level or No management Left Footwear Regular Shoe Right Footwear Regular Shoe Pain Scale: 0-10 Numeric Is Patient Pain Free? Yes Teaching: Wound Center *Wound/Skin Impairment -Person Taught Patient -Teaching Method Discussion, Demonstration -Response to teaching Return demonstration, Verbalize understanding MAXX - Nurse 1 - General Ulcer Measurement Start: 01/19/21 09:24 Freq: Status: Active Protocol: Activity Type Activity Date Activity User E-Sign Co-Sign Detail Recorded Client Recorded Date Recorded By Document 01/19/21 09:24 JIM [id number] 01/19/21 09:35 JIM 01/19/21 09:24 Wound Center Nurse 1 29-left lateral dorsal foot -Combined with other wound No -Current Size (cm) - Length 0.2 -Current Size (cm) - Width 0.6 -Current Size (cm) - Depth 0.2 -Total Square Cm 0.12 -Photo Taken No -Epithelialization Small 1-33% -Tunneling No -Undermining/Tunneling No -Circular Undermining No -Exudate Amt Small -Exudate Type Serosanguineous -Wound Margin Distinct, Outline Attached -Granulation Amt Large (67-100%) -Granulation Quality Red -Slough/Fibrin Yes -Necrosis Amt Small (1-33%) -Necrotic Tissue Type Adherent Slough -Structure Exposed N/A -Texture (Jaylyn-wound Skin Appearance) Assessed, Localized Edema -Moisture (Jaylyn-wound Skin Appearance) Dry/Scaly -Color (Jaylyn-wound Skin Appearance) No Abnormality -Temperature (Jaylyn-wound Skin No Abnormality Appearance) (Pt Warm) -Tenderness on Palpation (Jaylyn-wound No Skin Appearance) -Ulcer Cleansing Rinsed/ Irrigated with Saline -Foul Odor after Cleansing No -Anesthetic Used 5% Lidocaine Gel #28 left 2nd, 3rd, 4th toe cluster -Combined with other wound No -Current Size (cm) - Length 0.6 -Current Size (cm) - Width 2 -Current Size (cm) - Depth 0.1 -Total Square Cm 1.2 -Photo Taken No -Epithelialization Small 1-33% -Tunneling No -Undermining/Tunneling No -Circular Undermining No -Exudate Amt None Present -Granulation Amt Small (1-33%) -Granulation Quality Zeba -Slough/Fibrin Yes -Necrosis Amt Medium (34-66%) -Texture (Jaylyn-wound Skin Appearance) Assessed -Color (Jaylyn-wound Skin Appearance) Assessed -Temperature (Jaylyn-wound Skin No Abnormality Appearance) (Pt Warm) -Tenderness on Palpation (Jaylyn-wound No Skin Appearance) -Ulcer Cleansing Rinsed/ Irrigated with Saline -Foul Odor after Cleansing No -Anesthetic Used 4% Lidocaine Solution #27 left plantar mid foot -Combined with other wound No -Current Size (cm) - Length 0 -Current Size (cm) - Width 0 -Current Size (cm) - Depth 0 -Total Square Cm 0 -Epithelialization Large 67-100% #19 Left Lateral LE -Current Size (cm) - Length 0 -Current Size (cm) - Width 0 -Current Size (cm) - Depth 0 -Total Square Cm 0 -Epithelialization Large 67-100% Lower Limb Edema Present Yes Left Calf (cm) 45.2 Left Ankle (cm) 30.3 WC - Nurse 2 - General Ulcer CM Notes Start: 01/19/21 09:24 Freq: Status: Active Protocol: Activity Type Activity Date Activity User E-Sign Co-Sign Detail Recorded Client Recorded Date Recorded By Document 01/19/21 09:50 MW [id number] 01/19/21 09:58 MW 01/19/21 09:50 Wound Center Nurse 2 29-left lateral dorsal foot -Time 09:51 -Correct Patient Yes -Correct Side, Site, Position Yes -Correct Procedure Yes -Procedure Performed Yes -Type of Procedure Debridement -Clinical Debridement Subcutaneous -Tissue Removed Subcutaneous -Post Debridement (cm) - Length 1.1 -Post Debridement (cm) - Width 0.5 -Post Debridement (cm) - Depth 0.1 -Total Square (Post) (cm) 0.55 -Area of Debridement (cm) - Length 1.1 -Area of Debridement (cm) - Width 0.5 -Total Square (Area) (cm) 0.55 -Tunneling No -Undermining/Tunneling No -Circular Undermining No -Wound/Ulcer Outcome Not Healed -Ulcer Cleansing Rinsed/ Irrigated with Saline -Foul Odor after Cleansing No -Bioengineered Tissue No -Bleeding Controlled with Pressure -Offloading No -Treatment Response Procedure Tolerated Well -Debridement - Subq, 1st 20sq cm Yes #28 left 2nd, 3rd, 4th toe cluster -Time 09:52 -Correct Patient Yes -Correct Side, Site, Position Yes -Correct Procedure Yes -Procedure Performed Yes -Type of Procedure Debridement -Clinical Debridement Subcutaneous -Tissue Removed Subcutaneous -Post Debridement (cm) - Length 0.8 -Post Debridement (cm) - Width 2.5 -Post Debridement (cm) - Depth 0.1 -Total Square (Post) (cm) 2.00 -Area of Debridement (cm) - Length 0.8 -Area of Debridement (cm) - Width 2.5 -Total Square (Area) (cm) 2.00 -Tunneling No -Undermining/Tunneling No -Circular Undermining No -Wound/Ulcer Outcome Not Healed -Ulcer Cleansing Rinsed/ Irrigated with Saline -Foul Odor after Cleansing No -Bioengineered Tissue No -Bleeding Controlled with Pressure -Offloading No -Treatment Response Procedure Tolerated Well -Debridement - Subq, 1st 20sq cm No #27 left plantar mid foot -Time 09:54 -Correct Patient Yes -Correct Side, Site, Position Yes -Correct Procedure Yes -Procedure Performed No -Post Debridement (cm) - Length 0 -Post Debridement (cm) - Width 0 -Post Debridement (cm) - Depth 0 -Total Square (Post) (cm) 0 -Wound/Ulcer Outcome Healed- Epithelialized #19 Left Lateral LE -Time 09:54 -Correct Patient Yes -Correct Side, Site, Position Yes -Correct Procedure Yes -Procedure Performed No -Post Debridement (cm) - Length 0 -Post Debridement (cm) - Width 0 -Post Debridement (cm) - Depth 0 -Total Square (Post) (cm) 0 -Wound/Ulcer Outcome Healed- Epithelialized Pain Scale: 0-10 Numeric Is Patient Pain Free? Yes - Nurse 3 - General Ulcer D/C NN Start: 01/19/21 09:24 Freq: Status: Active Protocol: Activity Type Activity Date Activity User E-Sign Co-Sign Detail Recorded Client Recorded Date Recorded By Document 01/19/21 10:06 JIM [id number] 01/19/21 10:08 JIM 01/19/21 10:06 Wound Care Nurse 3 29-left lateral dorsal foot -Ulcer Cleansing Rinsed/ Irrigated with Saline -Foul Odor after Cleansing No -Primary Dressing Applied NonAdherent Contact Layer, Promogran Mackenzie Matter -Primary Dressing Covered/Secured with Dry Gauze & Roll Gauze, Secured with Tape -Promogran Mackenzie Matter 1 #28 left 2nd, 3rd, 4th toe cluster -Ulcer Cleansing Rinsed/ Irrigated with Saline -Foul Odor after Cleansing No -Primary Dressing Applied NonAdherent Contact Layer, Promogran Mackenzie Matter -Primary Dressing Covered/Secured with Dry Gauze & Roll Gauze, Secured with Tape -Promogran Mackenzie Matter 0 Right -Compression Wrap Krunal Wrap Left -Compression Wrap Krunal Wrap Pain Scale: 0-10 Numeric Is Patient Pain Free? Yes WC - Visit Discharge Discharge Condition Stable Ambulatory Status Ambulatory, Walker Transportation Private Auto Medication Reconcilliation completed & Yes provided to patient/care provider Clinical Summary of Care Provided Yes Notes: Triamcinolone cream to bilateral feet and legs Additional Wound Wound debrided: left lateral dorsal foot Laterality: Left Wound Grade/Stage: Espinoza Grade 1 Type of Debridement: Excisional debridement Anesthesia Used: 5% Lidocaine Gel Depth: Down to and including healthy tissue and in the subcutaneous layer Percentage of wound debrided: 100 Instrument Used: 3mm curette Tissue Removed: Yellow slough, devitalized tissue Severity: Fat Layer Exposed Amount of bleeding with debridement: Mild Bleeding Controlled with: Compression and gauze Patient tolerated procedure: Patient tolerated procedure well Additional Wound Wound debrided: left 2nd,3rd, 4th toe cluster Laterality: Left Wound Grade/Stage: Espinoza Grade 1 Type of Debridement: Excisional debridement Anesthesia Used: 4% Lidocaine Solution and 5% Lidocaine Gel Depth: Down to and including healthy tissue and in the subcutaneous layer Percentage of wound debrided: 100 Instrument Used: 3mm curette Tissue Removed: Yellow slough, devitalized tissue Severity: Fat Layer Exposed Amount of bleeding with debridement: Mild Bleeding Controlled with: Compression and gauze Patient tolerated procedure: Patient tolerated procedure well Assessment/Plan Assessment/Plan (1) Ulcer of left lower extremity with fat layer exposed: CODE(S): L97.922 - Non-pressure chronic ulcer of unspecified part of left lower leg with fat layer exposed (2) Ulcer of left foot: CODE(S): L97.529 - Non-pressure chronic ulcer of other part of left foot with unspecified severity QUALIFIERS: Non-pressure ulcer stage: limited to breakdown of skin Qualified Code(s): L97.521 - Non-pressure chronic ulcer of other part of left foot limited to breakdown of skin (3) Obesity: CODE(S): E66.9 - Obesity, unspecified QUALIFIERS: Obesity type: unspecified obesity type Obesity classification: adult class 2 (BMI 35 - 39.9) Serious obesity comorbidity presence: with serious comorbidity Body mass index: BMI 37.0-37.9 Qualified Code(s): E66.01 - Morbid (severe) obesity due to excess calories; Z68.37 - Body mass index [BMI] 37.0-37.9, adult (4) Chronic acquired lymphedema: CODE(S): I89.0 - Lymphedema, not elsewhere classified (5) Stage 3 severe COPD by GOLD classification: CODE(S): J44.9 - Chronic obstructive pulmonary disease, unspecified (6) Lymphedema of both lower extremities: CODE(S): I89.0 - Lymphedema, not elsewhere classified (7) Type 2 diabetes mellitus: CODE(S): E11.9 - Type 2 diabetes mellitus without complications QUALIFIERS: Diabetes mellitus complication status: with kidney complications Diabetes mellitus complication detail: with chronic kidney disease 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 Chronic kidney disease stage: on chronic dialysis Qualified Code(s): E11.22 - Type 2 diabetes mellitus with diabetic chronic kidney disease; N18.6 - End stage renal disease; Z79.4 - jail (current) use of insulin; Z99.2 - Dependence on renal dialysis (8) Chronic kidney disease with end stage 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: CODE(S): N18.6 - End stage renal disease; Z99.2 - Dependence on renal dialysis (9) Ulcer of left second toe: CODE(S): L97.529 - Non-pressure chronic ulcer of other part of left foot with unspecified severity QUALIFIERS: Non-pressure ulcer stage: with fat layer exposed Qualified Code(s): L97.522 - Non-pressure chronic ulcer of other part of left foot with fat layer exposed (10) Skin ulcer of third toe of left foot: CODE(S): L97.529 - Non-pressure chronic ulcer of other part of left foot with unspecified severity QUALIFIERS: Non-pressure ulcer stage: with fat layer exposed Qualified Code(s): L97.522 - Non-pressure chronic ulcer of other part of left foot with fat layer exposed (11) Skin ulcer of fourth toe of left foot with fat layer exposed: CODE(S): L97.522 - Non-pressure chronic ulcer of other part of left foot with fat layer exposed PLAN: Mr. Russell's legs have lymphedema and chronic stasis dermatitis. The ulcers of his left plantar foot are healed. His other ulcers of his left toes are healing. Will dress his left toe ulcers with Promogran covered with adaptic M,W,F for moderate drainage. His recent labs have been reviewed. Encouraged adequate protein intake. Venous studies show resolution of his DVT. Arterial studies show no significant disease. He was advised to use zinc oxide or triamcinolone cream to his legs once daily to help with his dermatitis. Will plan on returning to maintenance control of his edema with KRUNAL wraps. He was advised to use his compression pumps twice daily and be vigilant with elevating his legs to avoid worsening of his edema which causes the cellulitis and ulcers. Call with worsening pain, drainage or odor. F/U in 2 weeks.
[2021-02-02 11:01] VITALS: BP 101/41; PULSE 99; RESP 18; TEMP 36.2; BMI 37.3
--- NOTE | 2021-02-02 15:42 | PN.PCM_ITS ---
History of Present Illness Date of Service: 02/02/21 Chief Complaint: left lower extremity ulcer, cellulitis and edema b/l LE History of Wound: Mr. Russell is a 70 yo gentelman well-known to the wound center who presents due to new (recurrent) left lower extremity ulcer. Said to have started about a week ago. He initially noted increased fluid drainage and increased swelling and then erythema. His HH nurse was concerned regarding the appearance of the left lateral leg and it began draining more and his dialysis nurses were also concerned. He also has petechial appearing spots on his toes, and feet b/l but none of his upper extremities or more proximally. Denies chills, fever or otherwise feeling of unwell. He is on chronic dialysis and uses compression pumps to manage his edema. He recently underwent surgery for fistula placement for dialysis. He reports that his edema has been better than it has been in the past but has had scaling and drainage to his skin which had resolved when he was using UNNA boots when he was here last. He applies Eucerin, zinc oxide to his legs but this has not helped the scaling recently of his left leg. His left leg remains more swollen than his right and has significant keratosis. Subjective Subjective His left lateral LE ulcer remains healed. The left lateral foot with mild- moderate drainage. The plantar foot wound is healed. There are several ulcers of his left dorsal 2,3,4th toes which are still present but are improved. He tolerated treatment with Mackenzie. He underwent arterial testing November 2020 and it showed mild PAD at the level of his ankles. Objective Data Objective Data Vital Signs: Vital Signs Temp Pulse Resp BP 97.2 F L 99 18 101/41 L 02/02/21 11:01 02/02/21 11:01 02/02/21 11:01 02/02/21 11:01 Weight: 117.934 kg Body Mass Index (BMI) 37.3 Physical Exam Const alert, oriented x3 and no apparent distress General Appearance: lethargic Nutritional Appearance: obese HEENT normocephalic and head/scalp atraumatic Lymph Lymphatic: lymphedema severe Lymphatic Narrative: bilateral LE Resp normal respiratory effort and normal air movement Cardio regular rate and regular rhythm Skin Wounds: wounds noted Wound Narrative: as in clinical panel Psych mental status grossly normal, thought process normal, cooperative and affect normal Debridement Note Debridement Note Wound debrided: left lateral foot Laterality: Left Wound Grade/Stage: Espinoza grade 1 Type of Debridement: Excisional debridement Anesthesia Used: 4% Lidocaine Solution Depth: Down to and including healthy tissue and in the subcutaneous layer Percentage of wound debrided: 100 Instrument Used: 3mm curette Tissue Removed: Yellow slough, devitalized tissue Severity: Fat Layer Exposed Amount of bleeding with debridement: Mild Bleeding Controlled with: Compression and gauze Patient tolerated procedure: Patient tolerated procedure well Post-Debridement Measurements and Additional Note: Post-Debridement Measurements/Treatment - Nurse 1 - General Ulcer Assessment Start: 01/19/21 09:24 Freq: Status: Active Protocol: [employer] Activity Type Activity Date Activity User E-Sign Co-Sign Detail Recorded Client Recorded Date Recorded By Document 01/19/21 09:24 JIM [id number] 01/19/21 09:35 Document 02/02/21 11:01 RB [id number] 02/02/21 11:03 RB 01/19/21 02/02/21 09:24 11:01 - Today's Visit Information Type of service Follow-up Visit Follow-up Visit (Physician/SENIOR ENERGY MARKET COORDINATOR (Physician/SENIOR ENERGY MARKET COORDINATOR ) ) Arrival Mode Ambulatory, Ambulatory, Walker Walker Transfer Assistance Manual Patient Identification Verified (Name & No Yes ) Patient Requires Transmission-Based No No Precautions Height and Weight Body Mass Index (BMI) 37.3 37.3 BMI Classification Obese Obese Vital Signs Temperature (97.8 F-99.1 F) 96.6 F L 97.2 F L Temperature Source Temporal Temporal Pulse Rate (60-100) 97 99 Pulse Location Monitor Monitor Respiratory Rate (12-18) 16 18 Respiratory rate source Observation Observation Blood Pressure (90/60-120/80) 91/49 L 101/41 L Blood Pressure Mean (mm Hg) 63 61 Source Monitor Monitor Position Sitting Semi-Fowlers Blood Pressure Location Right Arm Left Arm History Since Last Visit- (Skip if this is Patient's initial visit) Have you changed medications since your No No last visit? Any new allergies or adverse reactions No No Had a fall/change in ADL's that may No No increase risk of falls Signs or symptoms of abuse and/or No No neglect since last visit Have you been in the hospital since your No No last visit? Has dressing in place as prescribed Yes Yes Has compression in place as prescribed N/A No Has offloadiing in place as prescribed N/A No Experienced any changes in pain level or No No management Left Footwear Regular Shoe Diabetic Shoe Right Footwear Regular Shoe Diabetic Shoe Pain Scale: 0-10 Numeric Is Patient Pain Free? Yes Yes Teaching: Wound Center *Wound/Skin Impairment -Person Taught Patient -Teaching Method Discussion, Demonstration -Response to teaching Return demonstration, Verbalize understanding WC - Nurse 1 - General Ulcer Measurement Start: 01/19/21 09:24 Freq: Status: Active Protocol: Activity Type Activity Date Activity User E-Sign Co-Sign Detail Recorded Client Recorded Date Recorded By Document 01/19/21 09:24 JF [id number] 01/19/21 09:35 JF Document 02/02/21 11:01 RB [id number] 02/02/21 11:03 RB 01/19/21 02/02/21 09:24 11:01 Wound Center Nurse 1 29-left lateral dorsal foot -Combined with other wound No No -Current Size (cm) - Length 0.2 0.1 -Current Size (cm) - Width 0.6 0.1 -Current Size (cm) - Depth 0.2 0.1 -Total Square Cm 0.12 0.01 -Photo Taken No -Epithelialization Small 1-33% -Tunneling No No -Undermining/Tunneling No No -Circular Undermining No No -Exudate Amt Small Small -Exudate Type Serosanguineous Serosanguineous -Wound Margin Distinct, Flat & Intact Outline Attached -Granulation Amt Large (67-100%) Medium (34-66%) -Granulation Quality Red Oceola -Slough/Fibrin Yes Yes -Necrosis Amt Small (1-33%) Small (1-33%) -Necrotic Tissue Type Adherent Slough Adherent Slough -Structure Exposed N/A N/A -Texture (Jaylyn-wound Skin Appearance) Assessed, Assessed Localized Edema -Moisture (Jaylyn-wound Skin Appearance) Dry/Scaly Assessed,Dry/ Scaly -Color (Jaylyn-wound Skin Appearance) No Abnormality Assessed -Temperature (Jaylyn-wound Skin No Abnormality No Abnormality Appearance) (Pt Warm) (Pt Warm) -Tenderness on Palpation (Jaylyn-wound No No Skin Appearance) -Ulcer Cleansing Rinsed/ Wound Cleanser Irrigated with Saline -Foul Odor after Cleansing No No -Anesthetic Used 5% Lidocaine 4% Lidocaine Gel Solution #28 left 2nd, 3rd, 4th toe cluster -Combined with other wound No -Current Size (cm) - Length 0.6 0.1 -Current Size (cm) - Width 2 0.1 -Current Size (cm) - Depth 0.1 0.1 -Total Square Cm 1.2 0.01 -Photo Taken No -Epithelialization Small 1-33% -Tunneling No No -Undermining/Tunneling No No -Circular Undermining No No -Exudate Amt None Present Small -Exudate Type Serosanguineous -Wound Margin Flat & Intact -Granulation Amt Small (1-33%) Medium (34-66%) -Granulation Quality Oceola Oceola -Slough/Fibrin Yes Yes -Necrosis Amt Medium (34-66%) Small (1-33%) -Necrotic Tissue Type Adherent Slough -Structure Exposed N/A -Texture (Jaylyn-wound Skin Appearance) Assessed Assessed -Moisture (Jaylyn-wound Skin Appearance) Assessed,Dry/ Scaly -Color (Jaylyn-wound Skin Appearance) Assessed Assessed -Temperature (Jaylyn-wound Skin No Abnormality No Abnormality Appearance) (Pt Warm) (Pt Warm) -Tenderness on Palpation (Jaylyn-wound No No Skin Appearance) -Ulcer Cleansing Rinsed/ Wound Cleanser Irrigated with Saline -Foul Odor after Cleansing No No -Anesthetic Used 4% Lidocaine 4% Lidocaine Solution Solution #27 left plantar mid foot -Combined with other wound No -Current Size (cm) - Length 0 -Current Size (cm) - Width 0 -Current Size (cm) - Depth 0 -Total Square Cm 0 -Epithelialization Large 67-100% #19 Left Lateral LE -Current Size (cm) - Length 0 -Current Size (cm) - Width 0 -Current Size (cm) - Depth 0 -Total Square Cm 0 -Epithelialization Large 67-100% Lower Limb Edema Present Yes Yes Left Calf (cm) 45.2 46.5 Left Ankle (cm) 30.3 31 WC - Nurse 2 - General Ulcer CM Notes Start: 01/19/21 09:24 Freq: Status: Active Protocol: Activity Type Activity Date Activity User E-Sign Co-Sign Detail Recorded Client Recorded Date Recorded By Document 01/19/21 09:50 MW [id number] 01/19/21 09:58 MW Document 02/02/21 11:25 MW [id number] 02/02/21 11:33 MW 01/19/21 02/02/21 09:50 11:25 Wound Center Nurse 2 29-left lateral dorsal foot -Time 09:51 11:26 -Correct Patient Yes Yes -Correct Side, Site, Position Yes Yes -Correct Procedure Yes Yes -Procedure Performed Yes Yes -Type of Procedure Debridement Debridement -Clinical Debridement Subcutaneous Subcutaneous -Tissue Removed Subcutaneous Subcutaneous -Post Debridement (cm) - Length 1.1 1.1 -Post Debridement (cm) - Width 0.5 0.6 -Post Debridement (cm) - Depth 0.1 0.1 -Total Square (Post) (cm) 0.55 0.66 -Area of Debridement (cm) - Length 1.1 1.1 -Area of Debridement (cm) - Width 0.5 0.6 -Total Square (Area) (cm) 0.55 0.66 -Tunneling No No -Undermining/Tunneling No No -Circular Undermining No No -Wound/Ulcer Outcome Not Healed Not Healed -Ulcer Cleansing Rinsed/ Rinsed/ Irrigated with Irrigated with Saline Saline -Foul Odor after Cleansing No No -Bioengineered Tissue No No -Bleeding Controlled with Pressure Pressure -Offloading No No -Treatment Response Procedure Procedure Tolerated Well Tolerated Well -Debridement - Subq, 1st 20sq cm Yes Yes #28 left 2nd, 3rd, 4th toe cluster -Time 09:52 11:28 -Correct Patient Yes Yes -Correct Side, Site, Position Yes Yes -Correct Procedure Yes Yes -Procedure Performed Yes Yes -Type of Procedure Debridement Debridement -Clinical Debridement Subcutaneous Subcutaneous -Tissue Removed Subcutaneous Subcutaneous -Post Debridement (cm) - Length 0.8 0.3 -Post Debridement (cm) - Width 2.5 3.7 -Post Debridement (cm) - Depth 0.1 0.1 -Total Square (Post) (cm) 2.00 1.11 -Area of Debridement (cm) - Length 0.8 0.3 -Area of Debridement (cm) - Width 2.5 3.7 -Total Square (Area) (cm) 2.00 1.11 -Tunneling No No -Undermining/Tunneling No No -Circular Undermining No No -Wound/Ulcer Outcome Not Healed Not Healed -Ulcer Cleansing Rinsed/ Rinsed/ Irrigated with Irrigated with Saline Saline -Foul Odor after Cleansing No No -Bioengineered Tissue No No -Bleeding Controlled with Pressure Pressure -Offloading No No -Treatment Response Procedure Procedure Tolerated Well Tolerated Well -Debridement - Subq, 1st 20sq cm No No #27 left plantar mid foot -Time 09:54 -Correct Patient Yes -Correct Side, Site, Position Yes -Correct Procedure Yes -Procedure Performed No -Post Debridement (cm) - Length 0 -Post Debridement (cm) - Width 0 -Post Debridement (cm) - Depth 0 -Total Square (Post) (cm) 0 -Wound/Ulcer Outcome Healed- Epithelialized #19 Left Lateral LE -Time 09:54 -Correct Patient Yes -Correct Side, Site, Position Yes -Correct Procedure Yes -Procedure Performed No -Post Debridement (cm) - Length 0 -Post Debridement (cm) - Width 0 -Post Debridement (cm) - Depth 0 -Total Square (Post) (cm) 0 -Wound/Ulcer Outcome Healed- Epithelialized Pain Scale: 0-10 Numeric Is Patient Pain Free? Yes Yes WC - Nurse 3 - General Ulcer D/C NN Start: 01/19/21 09:24 Freq: Status: Active Protocol: Activity Type Activity Date Activity User E-Sign Co-Sign Detail Recorded Client Recorded Date Recorded By Document 01/19/21 10:06 [id number] 01/19/21 10:08 Document 02/02/21 12:03 DL [id number] 02/02/21 12:05 DL 01/19/21 02/02/21 10:06 12:03 Wound Care Nurse 3 29-left lateral dorsal foot -Ulcer Cleansing Rinsed/ Soap and Water Irrigated with Saline -Foul Odor after Cleansing No -Primary Dressing Applied NonAdherent NonAdherent Contact Layer, Contact Layer, Promogran Promogran Mackenzie Matter Mackenzie Matter -Primary Dressing Covered/Secured with Dry Gauze & Dry Gauze & Roll Gauze, Roll Gauze, Secured with Secured with Tape Tape -Other Covering krunal/stocknette -Promogran Mackenzie Matter 1 1 #28 left 2nd, 3rd, 4th toe cluster -Ulcer Cleansing Rinsed/ Soap and Water Irrigated with Saline -Foul Odor after Cleansing No -Primary Dressing Applied NonAdherent NonAdherent Contact Layer, Contact Layer Promogran Mackenzie Matter -Primary Dressing Covered/Secured with Dry Gauze & Dry Gauze & Roll Gauze, Roll Gauze, Secured with Secured with Tape Tape -Other Covering krunal/ stockinette -Promogran Mackenzie Matter 0 Right -Compression Wrap Krunal Wrap Left -Compression Wrap Krunal Wrap Treatment Response Procedure Tolerated Well Pain Scale: 0-10 Numeric Is Patient Pain Free? Yes WC - Visit Discharge Discharge Condition Stable Ambulatory Status Ambulatory, Ambulatory, Walker Walker Transportation Private Auto Private Auto Medication Reconcilliation completed & Yes provided to patient/care provider Clinical Summary of Care Provided Yes Notes: Triamcinolone cream to bilateral feet and legs Facility Type Home Health Orders Sent Yes Additional Wound Wound debrided: 2nd, 3rd, 4th toe cluster Laterality: Left Wound Grade/Stage: Espinoza grade 1 Type of Debridement: Excisional debridement Anesthesia Used: 5% Lidocaine Gel Depth: Down to and including healthy tissue and in the subcutaneous layer Percentage of wound debrided: 100 Instrument Used: 3mm curette Tissue Removed: Yellow slough, devitalized tissue Severity: Fat Layer Exposed Amount of bleeding with debridement: Mild Bleeding Controlled with: Compression and gauze Patient tolerated procedure: Patient tolerated procedure well Assessment/Plan Assessment/Plan (1) Ulcer of left lower extremity with fat layer exposed: CODE(S): L97.922 - Non-pressure chronic ulcer of unspecified part of left lower leg with fat layer exposed (2) Ulcer of left foot: CODE(S): L97.529 - Non-pressure chronic ulcer of other part of left foot with unspecified severity QUALIFIERS: Non-pressure ulcer stage: limited to breakdown of skin Qualified Code(s): L97.521 - Non-pressure chronic ulcer of other part of left foot limited to breakdown of skin (3) Obesity: CODE(S): E66.9 - Obesity, unspecified QUALIFIERS: Obesity type: unspecified obesity type Obesity classification: adult class 2 (BMI 35 - 39.9) Serious obesity comorbidity presence: with serious comorbidity Body mass index: BMI 37.0-37.9 Qualified Code(s): E66.01 - Morbid (severe) obesity due to excess calories; Z68.37 - Body mass index [BMI] 37.0-37.9, adult (4) Chronic acquired lymphedema: CODE(S): I89.0 - Lymphedema, not elsewhere classified (5) Stage 3 severe COPD by GOLD classification: CODE(S): J44.9 - Chronic obstructive pulmonary disease, unspecified (6) Lymphedema of both lower extremities: CODE(S): I89.0 - Lymphedema, not elsewhere classified (7) Type 2 diabetes mellitus: CODE(S): E11.9 - Type 2 diabetes mellitus without complications QUALIFIERS: Diabetes mellitus complication status: with kidney complications Diabetes mellitus complication detail: with chronic kidney disease Diabetes mellitus math specialist insulin use: with math specialist use Chronic kidney disease stage: on chronic dialysis Qualified Code(s): E11.22 - Type 2 diabetes mellitus with diabetic chronic kidney disease; N18.6 - End stage renal disease; Z79.4 - retirement (current) use of insulin; Z99.2 - Dependence on renal dialysis (8) Chronic kidney disease with end stage 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: CODE(S): N18.6 - End stage renal disease; Z99.2 - Dependence on renal di alysis (9) Ulcer of left second toe: CODE(S): L97.529 - Non-pressure chronic ulcer of other part of left foot with unspecified severity QUALIFIERS: Non-pressure ulcer stage: with fat layer exposed Qualified Code(s): L97.522 - Non-pressure chronic ulcer of other part of left foot with fat layer exposed (10) Skin ulcer of third toe of left foot: CODE(S): L97.529 - Non-pressure chronic ulcer of other part of left foot with unspecified severity QUALIFIERS: Non-pressure ulcer stage: with fat layer exposed Qualified Code(s): L97.522 - Non-pressure chronic ulcer of other part of left foot with fat layer exposed (11) Skin ulcer of fourth toe of left foot with fat layer exposed: CODE(S): L97.522 - Non-pressure chronic ulcer of other part of left foot with fat layer exposed PLAN: Mr. Russell's legs have lymphedema and chronic stasis dermatitis. The ulcers of his left plantar foot remain healed. His other ulcers of his left toes are healing. Will dress his left toe ulcers with Promogran covered with adaptic M,W,F for moderate drainage. His left lateral foot will be dressed with Promogran without adaptic M,W,F. His recent labs have been reviewed. Encouraged adequate protein intake. Venous studies show resolution of his DVT. Arterial studies show no significant disease. He was advised to use zinc oxide or triamcinolone cream to his legs once daily to help with his dermatitis. Will plan on returning to maintenance control of his edema with KRUNAL wraps. He was advised to use his compression pumps twice daily and be vigilant with elevating his legs to avoid worsening of his edema which causes the cellulitis and ulcers. Call with worsening pain, drainage or odor. F/U in 2 weeks.
== END 2021-02-08 23:59 ==
LOC: WC 10:30
PROVIDERS: PCP Family Medicine; Referring Provider Family Medicine; Visit Provider Family Medicine
DX: E11.621 Type 2 diabetes mellitus with foot ulcer (principal); M79.89 Other specified soft tissue disorders; R90.0 Intracranial space-occupying lesion found on diagnostic imaging of central nervous system; R23.3 Spontaneous ecchymoses; L97.522 Non-pressure chronic ulcer of other part of left foot with fat layer exposed; E66.9 Obesity, unspecified; Z68.37 Body mass index [BMI] 37.0-37.9, adult; I89.0 Lymphedema, not elsewhere classified; J44.9 Chronic obstructive pulmonary disease, unspecified; E11.22 Type 2 diabetes mellitus with diabetic chronic kidney disease; N18.6 End stage renal disease; Z99.2 Dependence on renal dialysis; Z79.4 Long term (current) use of insulin
CPT/HCPCS: 11042

== ENCOUNTER 2021-02-16 10:00 | Outpatient (RCR) | payer MEDICARE, OTHER, SELFPAY ==
[2021-02-09 00:25] VITALS: BP 101/41; PULSE 99; RESP 18; TEMP 36.2; BMI 37.3
[2021-02-16 09:54] VITALS: BP 98/46; PULSE 104; RESP 20; TEMP 36; BMI 37.3
--- NOTE | 2021-02-16 14:07 | PN.PCM_ITS ---
History of Present Illness Date of Service: 02/16/21 Chief Complaint: left lower extremity ulcer, cellulitis and edema b/l LE History of Wound: Mr. Russell is a 70 yo gentelman well-known to the wound center who presents due to new (recurrent) left lower extremity ulcer. Said to have started about a week ago. He initially noted increased fluid drainage and increased swelling and then erythema. His HH nurse was concerned regarding the appearance of the left lateral leg and it began draining more and his dialysis nurses were also concerned. He also has petechial appearing spots on his toes, and feet b/l but none of his upper extremities or more proximally. Denies chills, fever or otherwise feeling of unwell. He is on chronic dialysis and uses compression pumps to manage his edema. He recently underwent surgery for fistula placement for dialysis. He reports that his edema has been better than it has been in the past but has had scaling and drainage to his skin which had resolved when he was using [employer]NA boots when he was here last. He applies Eucerin, zinc oxide to his legs but this has not helped the scaling recently of his left leg. His left leg remains more swollen than his right and has significant keratosis. Subjective Subjective His left lateral LE ulcer remains healed. The left lateral foot continues with mild-moderate drainage. There are several ulcers of his left dorsal 2,3,4th toes which are still present but are improved. He tolerated treatment with Laura. He has a anew ulcer of his left luz. He underwent arterial testing November 2020 and it showed mild PAD at the level of his ankles. Objective Data Objective Data Vital Signs: Vital Signs Temp Pulse Resp BP 96.8 F L 104 H 20 H 98/46 L 02/16/21 09:54 02/16/21 09:54 02/16/21 09:54 02/16/21 09:54 Weight: 117.934 kg Body Mass Index (BMI) 37.3 Physical Exam Const alert, oriented x3 and no apparent distress General Appearance: cooperative and lethargic Nutritional Appearance: obese HEENT normocephalic and head/scalp atraumatic Resp normal respiratory effort Effort and Inspection: able to speak in complete sentences Auscultation: clear to auscultation bilaterally Extremity General Extremity: edema bilateral lower extremity Details: moderate Skin General Skin Exam: venous stasis and dermatitis Wounds: wounds noted Wound Narrative: as above in clinical panel Neuro oriented x3 and no focal motor deficits Psych mental status grossly normal, thought process normal, cooperative, affect normal and speech normal Debridement Note Debridement Note Wound debrided: left lateral dorsal foot Laterality: Left Wound Grade/Stage: Espinoza grade 1 Type of Debridement: Excisional debridement Anesthesia Used: 4% Lidocaine Solution Depth: Down to and including healthy tissue and in the subcutaneous layer Percentage of wound debrided: 100 Instrument Used: 3mm curette Tissue Removed: Yellow slough, devitalized tissue Severity: Fat Layer Exposed Amount of bleeding with debridement: Mild Bleeding Controlled with: Compression and gauze Patient tolerated procedure: Patient tolerated procedure well Post-Debridement Measurements and Additional Note: Post-Debridement Measurements/Treatment - Nurse 1 - General Ulcer Assessment Start: 02/16/21 09:52 Freq: Status: Active Protocol: JATIN Activity Type Activity Date Activity User E-Sign Co-Sign Detail Recorded Client Recorded Date Recorded By Document 02/16/21 09:54 JIM [id number] 02/16/21 10:04 JIM 02/16/21 09:54 - Today's Visit Information Type of service Follow-up Visit (Physician/[employer] ) Arrival Mode Ambulatory, Walker Patient Identification Verified (Name & No ) Patient Requires Transmission-Based No Precautions Finger Stick Blood Sugar(mg/dl) (if 119 indicated): Blood Sugar Stated by Patient Height and Weight Body Mass Index (BMI) 37.3 BMI Classification Obese Vital Signs Temperature (97.8 F-99.1 F) 96.8 F L Temperature Source Temporal Pulse Rate (60-100) 104 H Pulse Location Monitor Respiratory Rate (12-18) 20 H Respiratory rate source Observation Blood Pressure (90/60-120/80) 98/46 L Blood Pressure Mean (mm Hg) 63 Source Monitor Position Semi-Fowlers Blood Pressure Location Right Arm History Since Last Visit- (Skip if this is Patient's initial visit) Have you changed medications since your No last visit? Any new allergies or adverse reactions No Had a fall/change in ADL's that may No increase risk of falls Signs or symptoms of abuse and/or No neglect since last visit Have you been in the hospital since your No last visit? Has dressing in place as prescribed Yes Has compression in place as prescribed Yes Left Footwear Diabetic Shoe Right Footwear Diabetic Shoe Pain Scale: 0-10 Numeric Is Patient Pain Free? Yes WC - Nurse 1 - General Ulcer Measurement Start: 02/16/21 09:52 Freq: Status: Active Protocol: Activity Type Activity Date Activity User E-Sign Co-Sign Detail Recorded Client Recorded Date Recorded By Document 02/16/21 09:54 JIM [id number] 02/16/21 10:04 JIM 02/16/21 09:54 Wound Center Nurse 1 29-left lateral dorsal foot -Combined with other wound No -Current Size (cm) - Length 0.1 -Current Size (cm) - Width 0.1 -Current Size (cm) - Depth 0.1 -Total Square Cm 0.01 -Photo Taken No -Epithelialization Large 67-100% -Tunneling No -Undermining/Tunneling No -Circular Undermining No -Exudate Amt None Present -Wound Margin Fibrotic Scar, Thickened Scar -Granulation Amt None Present (0 %) -Slough/Fibrin No -Necrosis Amt Large (67-100%) -Necrotic Tissue Type Adherent Slough -Structure Exposed N/A -Texture (Jaylyn-wound Skin Appearance) Assessed, Localized Edema -Moisture (Jaylyn-wound Skin Appearance) No Abnormality -Color (Jaylyn-wound Skin Appearance) Assessed -Temperature (Jaylyn-wound Skin No Abnormality Appearance) (Pt Warm) -Tenderness on Palpation (Jaylyn-wound No Skin Appearance) -Ulcer Cleansing Rinsed/ Irrigated with Saline -Foul Odor after Cleansing No -Anesthetic Used 4% Lidocaine Solution #28 left 2nd, 3rd, 4th toe cluster -Combined with other wound No -Current Size (cm) - Length 0.4 -Current Size (cm) - Width 3.6 -Current Size (cm) - Depth 0.1 -Total Square Cm 1.44 -Photo Taken No -Epithelialization Medium 34-66% -Tunneling No -Undermining/Tunneling No -Circular Undermining No -Exudate Amt None Present -Wound Margin Fibrotic Scar, Thickened Scar -Granulation Amt None Present (0 %) -Slough/Fibrin Yes -Necrosis Amt Large (67-100%) -Necrotic Tissue Type Adherent Slough -Structure Exposed N/A -Texture (Jaylyn-wound Skin Appearance) Assessed, Localized Edema -Moisture (Jaylyn-wound Skin Appearance) No Abnormality, Dry/Scaly -Color (Jaylyn-wound Skin Appearance) Assessed -Temperature (Jaylyn-wound Skin No Abnormality Appearance) (Pt Warm) -Tenderness on Palpation (Jaylyn-wound No Skin Appearance) -Foul Odor after Cleansing No -Anesthetic Used 4% Lidocaine Solution Lower Limb Edema Present Yes Right Calf (cm) 41.7 Right Ankle (cm) 30.5 Left Calf (cm) 45.3 Left Ankle (cm) 28.4 WC - Nurse 2 - General Ulcer CM Notes Start: 02/16/21 09:52 Freq: Status: Active Protocol: Activity Type Activity Date Activity User E-Sign Co-Sign Detail Recorded Client Recorded Date Recorded By Document 02/16/21 10:41 MW [id number] 02/16/21 10:45 MW 02/16/21 10:41 Wound Center Nurse 2 #30 left luz -Time 10:44 -Correct Patient Yes -Correct Side, Site, Position Yes -Correct Procedure Yes -Procedure Performed Yes -Type of Procedure Debridement -Clinical Debridement Subcutaneous -Tissue Removed Subcutaneous -Post Debridement (cm) - Length 0.6 -Post Debridement (cm) - Width 0.4 -Post Debridement (cm) - Depth 0.1 -Total Square (Post) (cm) 0.24 -Area of Debridement (cm) - Length 0.6 -Area of Debridement (cm) - Width 0.4 -Total Square (Area) (cm) 0.24 -Tunneling No -Undermining/Tunneling No -Circular Undermining No -Wound/Ulcer Outcome Not Healed -Ulcer Cleansing Rinsed/ Irrigated with Saline -Foul Odor after Cleansing No -Bioengineered Tissue No -Bleeding Controlled with Pressure -Offloading No -Treatment Response Procedure Tolerated Well -Debridement - Subq, 1st 20sq cm No 29-left lateral dorsal foot -Time 10:43 -Correct Patient Yes -Correct Side, Site, Position Yes -Correct Procedure Yes -Procedure Performed Yes -Type of Procedure Debridement -Clinical Debridement Subcutaneous -Tissue Removed Subcutaneous -Post Debridement (cm) - Length 0.3 -Post Debridement (cm) - Width 0.2 -Post Debridement (cm) - Depth 0.1 -Total Square (Post) (cm) 0.06 -Area of Debridement (cm) - Length 0.3 -Area of Debridement (cm) - Width 0.2 -Total Square (Area) (cm) 0.06 -Tunneling No -Undermining/Tunneling No -Circular Undermining No -Wound/Ulcer Outcome Not Healed -Ulcer Cleansing Rinsed/ Irrigated with Saline -Foul Odor after Cleansing No -Bioengineered Tissue No -Bleeding Controlled with Pressure -Offloading No -Treatment Response Procedure Tolerated Well -Debridement - Subq, 1st 20sq cm Yes #28 left 2nd, 3rd, 4th toe cluster -Time 10:44 -Correct Patient Yes -Correct Side, Site, Position Yes -Correct Procedure Yes -Procedure Performed Yes -Type of Procedure Debridement -Clinical Debridement Subcutaneous -Tissue Removed Subcutaneous -Post Debridement (cm) - Length 0.4 -Post Debridement (cm) - Width 2.0 -Post Debridement (cm) - Depth 0.1 -Total Square (Post) (cm) 0.80 -Area of Debridement (cm) - Length 0.4 -Area of Debridement (cm) - Width 2.0 -Total Square (Area) (cm) 0.80 -Tunneling No -Undermining/Tunneling No -Circular Undermining No -Wound/Ulcer Outcome Not Healed -Ulcer Cleansing Rinsed/ Irrigated with Saline -Foul Odor after Cleansing No -Bioengineered Tissue No -Bleeding Controlled with Pressure -Offloading No -Treatment Response Procedure Tolerated Well -Debridement - Subq, 1st 20sq cm No Pain Scale: 0-10 Numeric Is Patient Pain Free? Yes WC - Nurse 3 - General Ulcer D/C NN Start: 02/16/21 09:52 Freq: Status: Active Protocol: Activity Type Activity Date Activity User E-Sign Co-Sign Detail Recorded Client Recorded Date Recorded By Document 02/16/21 11:07 RB [id number] 02/16/21 11:09 RB 02/16/21 11:07 Wound Care Nurse 3 #30 left luz -Ulcer Cleansing Rinsed/ Irrigated with Saline -Primary Dressing Applied Promogran Laura Matter -Primary Dressing Covered/Secured with Dry Gauze,Dry Gauze & Roll Gauze,Secured with Tape -Promogran Laura Matter 1 29-left lateral dorsal foot -Other Dressing laura -Primary Dressing Covered/Secured with Dry Gauze,Dry Gauze & Roll Gauze,Secured with Tape #28 left 2nd, 3rd, 4th toe cluster -Primary Dressing Applied NonAdherent Contact Layer -Other Dressing Laura -Primary Dressing Covered/Secured with Dry Gauze,Dry Gauze & Roll Gauze,Secured with Tape Left -Other COTTON LINER AND PHUC BILATERALLY Treatment Response Procedure Tolerated Well Pain Scale: 0-10 Numeric Is Patient Pain Free? Yes WC - Visit Discharge Discharge Condition Stable Ambulatory Status Ambulatory Transportation Private Auto Medication Reconcilliation completed & No provided to patient/care provider Clinical Summary of Care Provided Yes Additional Wound Wound debrided: left luz Laterality: Left Wound Grade/Stage: Espinoza grade 1 Type of Debridement: Excisional debridement Anesthesia Used: 4% Lidocaine Solution Depth: Down to and including healthy tissue and in the subcutaneous layer Percentage of wound debrided: 100 Instrument Used: 3mm curette Tissue Removed: Yellow slough, devitalized tissue Severity: Fat Layer Exposed Amount of bleeding with debridement: Mild Bleeding Controlled with: Compression and gauze Patient tolerated procedure: Patient tolerated procedure well Additional Wound Wound debrided: left dorsal 2nd,3rd, 4th toe cluster Laterality: Left Wound Grade/Stage: Espinoza grade 1 Type of Debridement: Excisional debridement Anesthesia Used: 4% Lidocaine Solution Depth: Down to and including healthy tissue and in the subcutaneous layer Percentage of wound debrided: 100 Instrument Used: 3mm curette Tissue Removed: Yellow slough, devitalized tissue Severity: Fat Layer Exposed Amount of bleeding with debridement: Mild Bleeding Controlled with: Compression and gauze Patient tolerated procedure: Patient tolerated procedure well Assessment/Plan Assessment/Plan (1) Skin ulcer of fourth toe of left foot with fat layer exposed: CODE(S): L97.522 - Non-pressure chronic ulcer of other part of left foot with fat layer exposed (2) Skin ulcer of third toe of left foot: CODE(S): L97.529 - Non-pressure chronic ulcer of other part of left foot with unspecified severity QUALIFIERS: Non-pressure ulcer stage: with fat layer exposed Qualified Code(s): L97.522 - Non-pressure chronic ulcer of other part of left foot with fat layer exposed (3) Ulcer of left second toe: CODE(S): L97.529 - Non-pressure chronic ulcer of other part of left foot with unspecified severity QUALIFIERS: Non-pressure ulcer stage: with fat layer exposed Qualified Code(s): L97.522 - Non-pressure chronic ulcer of other part of left foot with fat layer exposed (4) Ulcer of left lower extremity with fat layer exposed: CODE(S): L97.922 - Non-pressure chronic ulcer of unspecified part of left lower leg with fat layer exposed (5) Morbid obesity: CODE(S): E66.01 - Morbid (severe) obesity due to excess calories (6) Chronic acquired lymphedema: CODE(S): I89.0 - Lymphedema, not elsewhere classified (7) Venous stasis dermatitis: CODE(S): I87.2 - Venous insufficiency (chronic) (peripheral) QUALIFIERS: Laterality: bilateral Qualified Code(s): I87.2 - Venous insufficiency (chronic) (peripheral) (8) Stage 3 severe COPD by GOLD classification: CODE(S): J44.9 - Chronic obstructive pulmonary disease, unspecified (9) Lymphedema of both lower extremities: CODE(S): I89.0 - Lymphedema, not elsewhere classified (10) Chronic kidney disease with end stage 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: CODE(S): N18.6 - End stage renal disease; Z99.2 - Dependence on renal dialysis (11) Type 2 diabetes mellitus: CODE(S): E11.9 - Type 2 diabetes mellitus without complications QUALIFIERS: Diabetes mellitus complication status: with kidney complications Diabetes mellitus complication detail: with chronic kidney disease Diabetes mellitus exterminator helper insulin use: with chcf use Chronic kidney disease stage: on chronic dialysis Qualified Code(s): E11.22 - Type 2 diabetes mellitus with diabetic chronic kidney disease; N18.6 - End stage renal disease; Z79.4 - care home (current) use of insulin; Z99.2 - Dependence on renal dialysis (12) Essential hypertension: CODE(S): I10 - Essential (primary) hypertension PLAN: Mr. Russell's legs have lymphedema and chronic stasis dermatitis. The ulcers of his left plantar foot remain healed. His other ulcers of his left toes are healing. Will dress his left toe ulcers with Promogran covered with adaptic M,W,F for moderate drainage. His left lateral foot will be dressed with Promogran without adaptic M,W,F. Left luz ulcer will also be treated with Promogran and adaptic.His recent labs have been reviewed. Encouraged adequate protein intake. Venous studies show resolution of his DVT. Arterial studies show no significant disease. He was advised to use zinc oxide or triamcinolone cream to his legs once daily to help with his dermatitis. Will plan on returning to maintenance control of his edema with PHUC wraps. He was advised to use his compression pumps twice daily and be vigilant with elevating his legs to avoid worsening of his edema which causes the cellulitis and ulcers. Call with worsening pain, drainage or odor. F/U in 2 weeks.
== END 2021-03-11 23:59 ==
LOC: WC 10:00
PROVIDERS: PCP Family Medicine; Referring Provider Family Medicine; Visit Provider Family Medicine
DX: E11.621 Type 2 diabetes mellitus with foot ulcer (principal); R21 Rash and other nonspecific skin eruption; R23.3 Spontaneous ecchymoses; L97.822 Non-pressure chronic ulcer of other part of left lower leg with fat layer exposed; E11.622 Type 2 diabetes mellitus with other skin ulcer; L97.522 Non-pressure chronic ulcer of other part of left foot with fat layer exposed; E66.01 Morbid (severe) obesity due to excess calories; I89.0 Lymphedema, not elsewhere classified; I87.2 Venous insufficiency (chronic) (peripheral); J44.9 Chronic obstructive pulmonary disease, unspecified; E11.22 Type 2 diabetes mellitus with diabetic chronic kidney disease; N18.6 End stage renal disease; I12.0 Hypertensive chronic kidney disease with stage 5 chronic kidney disease or end stage renal disease
CPT/HCPCS: 11042

== ENCOUNTER 2021-03-30 08:30 | Outpatient (RCR) | payer MEDICARE, OTHER, SELFPAY ==
[2021-03-12 00:21] VITALS: BP 98/46; PULSE 104; RESP 20; TEMP 36; BMI 37.3
[2021-03-16 07:58] VITALS: BP 96/39; PULSE 100; RESP 18; TEMP 35.9; BMI 37.3
--- NOTE | 2021-03-16 09:40 | PN.PCM_ITS ---
History of Present Illness Date of Service: 03/16/21 Chief Complaint: left lower extremity ulcer, cellulitis and edema b/l LE History of Wound: Mr. Russell is a 70 yo gentelman well-known to the wound center who presents due to new (recurrent) left lower extremity ulcer. Said to have started about a week ago. He initially noted increased fluid drainage and increased swelling and then erythema. His HH nurse was concerned regarding the appearance of the left lateral leg and it began draining more and his dialysis nurses were also concerned. He also has petechial appearing spots on his toes, and feet b/l but none of his upper extremities or more proximally. Denies chills, fever or otherwise feeling of unwell. He is on chronic dialysis and uses compression pumps to manage his edema. He recently underwent surgery for fistula placement for dialysis. He reports that his edema has been better than it has been in the past but has had scaling and drainage to his skin which had resolved when he was using UNNA boots when he was here last. He applies Eucerin, zinc oxide to his legs but this has not helped the scaling recently of his left leg. His left leg remains more swollen than his right and has significant keratosis. Subjective Subjective His left lateral LE ulcer remains healed. The left lateral foot continues with mild drainage. There are several ulcers of his left dorsal 2,3,4th toes which are still present but are improved. He tolerated treatment with Jael. He has a anew ulcer of his left luz. He underwent arterial testing November 2020 and it showed mild PAD at the level of his ankles. Objective Data Objective Data Vital Signs: Vital Signs Temp Pulse Resp BP 96.6 F L 100 18 96/39 L 03/16/21 07:58 03/16/21 07:58 03/16/21 07:58 03/16/21 07:58 Weight: 117.934 kg Body Mass Index (BMI) 37.3 Physical Exam Const alert, oriented x3 and no apparent distress General Appearance: cooperative and comfortable HEENT normocephalic and head/scalp atraumatic Lymph Lymphatic: lymphedema Resp normal respiratory effort Effort and Inspection: able to speak in complete sentences Skin General Skin Exam: venous stasis and dermatitis Wounds: wounds noted Wound Narrative: as in clinical panel Psych thought process normal, cooperative and affect normal Debridement Note Debridement Note Wound debrided: left lateral dorsal foot Laterality: Left Type of Debridement: Excisional debridement Anesthesia Used: 4% Lidocaine Solution Depth: Down to and including healthy tissue and in the subcutaneous layer Percentage of wound debrided: 100 Instrument Used: 3mm curette Tissue Removed: Yellow slough, devitalized tissue Severity: Fat Layer Exposed Amount of bleeding with debridement: Mild Bleeding Controlled with: Compression and gauze Patient tolerated procedure: Patient tolerated procedure well Post-Debridement Measurements and Additional Note: Post-Debridement Measuremen ts/Treatment MAXX - Nurse 1 - General Ulcer Assessment Start: 03/16/21 07:58 Freq: Status: Active Protocol: JATIN Activity Type Activity Date Activity User E-Sign Co-Sign Detail Recorded Client Recorded Date Recorded By Document 03/16/21 07:58 [email or web address] [id number] 03/16/21 08:04 ISMAEL 03/16/21 07:58 MAXX - Today's Visit Information Type of service Follow-up Visit (Physician/[facility] ) Arrival Mode Ambulatory Transfer Assistance None Patient Identification Verified (Name & Yes ) Patient Requires Transmission-Based No Precautions Height and Weight Body Mass Index (BMI) 37.3 BMI Classification Obese Vital Signs Temperature (97.8 F-99.1 F) 96.6 F L Temperature Source Temporal Pulse Rate (60-100) 100 Pulse Location Monitor Respiratory Rate (12-18) 18 Respiratory rate source Observation Blood Pressure (90/60-120/80) 96/39 L Blood Pressure Mean (mm Hg) 58 Source Monitor Position Sitting Blood Pressure Location Right Arm History Since Last Visit- (Skip if this is Patient's initial visit) Have you changed medications since your No last visit? Any new allergies or adverse reactions No Had a fall/change in ADL's that may No increase risk of falls Signs or symptoms of abuse and/or No neglect since last visit Have you been in the hospital since your No last visit? Has dressing in place as prescribed Yes Has compression in place as prescribed Yes Has offloadiing in place as prescribed No Experienced any changes in pain level or No management Left Footwear Diabetic Shoe Right Footwear Diabetic Shoe Pain Scale: 0-10 Numeric Is Patient Pain Free? Yes MAXX Armstrong Nurse 1 - General Ulcer Measurement Start: 03/16/21 07:58 Freq: Status: Active Protocol: Activity Type Activity Date Activity User E-Sign Co-Sign Detail Recorded Client Recorded Date Recorded By Document 03/16/21 07:58 [id number] 03/16/21 08:04 RB 03/16/21 07:58 Wound Center Nurse 1 #30 left luz -Combined with other wound No -Current Size (cm) - Length 1.3 -Current Size (cm) - Width 0.5 -Current Size (cm) - Depth 0.3 -Total Square Cm 0.65 -Tunneling No -Undermining/Tunneling No -Circular Undermining No -Exudate Amt Medium -Exudate Type Serosanguineous -Wound Margin Flat & Intact -Granulation Amt Medium (34-66%) -Granulation Quality [place] -Slough/Fibrin Yes -Necrosis Amt Large (67-100%) -Necrotic Tissue Type Adherent Slough -Structure Exposed N/A -Texture (Jaylyn-wound Skin Appearance) Assessed, Localized Edema -Moisture (Jaylyn-wound Skin Appearance) Assessed -Color (Jaylyn-wound Skin Appearance) Assessed -Temperature (Jaylyn-wound Skin No Abnormality Appearance) (Pt Warm) -Tenderness on Palpation (Jaylyn-wound No Skin Appearance) -Ulcer Cleansing Wound Cleanser -Foul Odor after Cleansing No -Anesthetic Used 4% Lidocaine Solution 29-left lateral dorsal foot -Combined with other wound No -Current Size (cm) - Length 0.1 -Current Size (cm) - Width 0.1 -Current Size (cm) - Depth 0.1 -Total Square Cm 0.01 -Tunneling No -Undermining/Tunneling No -Circular Undermining No -Exudate Amt Small -Exudate Type Serosanguineous -Wound Margin Distinct, Outline Attached -Granulation Amt Medium (34-66%) -Granulation Quality [place] -Slough/Fibrin Yes -Necrosis Amt Medium (34-66%) -Necrotic Tissue Type Adherent Slough -Structure Exposed None/Limited to Skin Breakdown -Texture (Jaylyn-wound Skin Appearance) Assessed -Moisture (Jaylyn-wound Skin Appearance) Assessed,Dry/ Scaly -Color (Jaylyn-wound Skin Appearance) Assessed -Temperature (Jaylyn-wound Skin No Abnormality Appearance) (Pt Warm) -Tenderness on Palpation (Jaylyn-wound No Skin Appearance) -Ulcer Cleansing Wound Cleanser -Foul Odor after Cleansing No -Anesthetic Used 4% Lidocaine Solution #28 left 2nd, 3rd, 4th toe cluster -Combined with other wound No -Current Size (cm) - Length 0.1 -Current Size (cm) - Width 0.1 -Current Size (cm) - Depth 0.1 -Total Square Cm 0.01 -Tunneling No -Undermining/Tunneling No -Circular Undermining No -Exudate Amt Small -Exudate Type Serosanguineous -Wound Margin Distinct, Outline Attached -Granulation Amt Medium (34-66%) -Granulation Quality [place] -Slough/Fibrin Yes -Necrosis Amt Medium (34-66%) -Necrotic Tissue Type Adherent Slough -Structure Exposed N/A -Texture (Jaylyn-wound Skin Appearance) Assessed -Moisture (Jaylyn-wound Skin Appearance) Assessed,Dry/ Scaly -Color (Jaylyn-wound Skin Appearance) Assessed -Temperature (Jaylyn-wound Skin No Abnormality Appearance) (Pt Warm) -Tenderness on Palpation (Jaylyn-wound No Skin Appearance) -Ulcer Cleansing Wound Cleanser -Foul Odor after Cleansing No -Anesthetic Used 4% Lidocaine Solution Lower Limb Edema Present Yes Left Calf (cm) 46.1 Left Ankle (cm) 29.4 WC - Nurse 2 - General Ulcer CM Notes Start: 03/16/21 07:58 Freq: Status: Active Protocol: Activity Type Activity Date Activity User E-Sign Co-Sign Detail Recorded Client Recorded Date Recorded By Document 03/16/21 08:06 JIM [id number] 03/16/21 08:16 JIM 03/16/21 08:06 Wound Center Nurse 2 #30 left luz -Time 08:08 -Correct Patient Yes -Correct Side, Site, Position Yes -Correct Procedure Yes -Procedure Performed Yes -Type of Procedure Debridement -Clinical Debridement Subcutaneous -Tissue Removed Subcutaneous -Post Debridement (cm) - Length 1.2 -Post Debridement (cm) - Width 0.5 -Post Debridement (cm) - Depth 0.2 -Total Square (Post) (cm) 0.60 -Area of Debridement (cm) - Length 1.2 -Area of Debridement (cm) - Width 0.5 -Total Square (Area) (cm) 0.60 -Tunneling No -Undermining/Tunneling No -Circular Undermining No -Wound/Ulcer Outcome Not Healed -Ulcer Cleansing Rinsed/ Irrigated with Saline -Foul Odor after Cleansing No -Bioengineered Tissue No -Bleeding Controlled with Pressure -Offloading No -Treatment Response Procedure Tolerated Well -Debridement - Subq, 1st 20sq cm Yes 29-left lateral dorsal foot -Time 08:14 -Correct Patient Yes -Correct Side, Site, Position Yes -Correct Procedure Yes -Procedure Performed Yes -Type of Procedure Debridement -Clinical Debridement Subcutaneous -Tissue Removed Subcutaneous -Post Debridement (cm) - Length 0.3 -Post Debridement (cm) - Width 0.3 -Post Debridement (cm) - Depth 0.2 -Total Square (Post) (cm) 0.09 -Area of Debridement (cm) - Length 0.3 -Area of Debridement (cm) - Width 0.3 -Total Square (Area) (cm) 0.09 -Tunneling No -Undermining/Tunneling No -Circular Undermining No -Wound/Ulcer Outcome Not Healed -Ulcer Cleansing Rinsed/ Irrigated with Saline -Foul Odor after Cleansing No -Bioengineered Tissue No -Bleeding Controlled with Pressure -Type of Offloading Total Contact Cast (TCC) - Left ($) -Treatment Response Procedure Tolerated Well -Debridement - Subq, 1st 20sq cm No #28 left 2nd, 3rd, 4th toe cluster -Time 08:15 -Correct Patient Yes -Correct Side, Site, Position Yes -Correct Procedure Yes -Procedure Performed Yes -Type of Procedure Debridement -Clinical Debridement Subcutaneous -Tissue Removed Subcutaneous -Post Debridement (cm) - Length 1 -Post Debridement (cm) - Width 0.2 -Post Debridement (cm) - Depth 0.2 -Total Square (Post) (cm) 0.2 -Area of Debridement (cm) - Length 1 -Area of Debridement (cm) - Width 0.2 -Total Square (Area) (cm) 0.2 -Tunneling No -Undermining/Tunneling No -Circular Undermining No -Wound/Ulcer Outcome Not Healed -Ulcer Cleansing Rinsed/ Irrigated with Saline -Foul Odor after Cleansing No -Bioengineered Tissue No -Bleeding Controlled with Pressure -Offloading No -Treatment Response Procedure Tolerated Well -Debridement - Subq, 1st 20sq cm Yes WC - Nurse 3 - General Ulcer D/C NN Start: 03/16/21 07:58 Freq: Status: Active Protocol: Activity Type Activity Date Activity User E-Sign Co-Sign Detail Recorded Client Recorded Date Recorded By Document 03/16/21 08:21 RB [id number] 03/16/21 08:32 RB 03/16/21 08:21 Wound Care Nurse 3 #30 left luz -Ulcer Cleansing Rinsed/ Irrigated with Saline -Primary Dressing Applied Promogran Jael Matter -Other Dressing ABD -Primary Dressing Covered/Secured with Dry Gauze,Dry Gauze & Roll Gauze -Promogran Jael Matter 1 29-left lateral dorsal foot -Ulcer Cleansing Rinsed/ Irrigated with Saline -Other Dressing JAEL -Primary Dressing Covered/Secured with Dry Gauze & Roll Gauze, Secured with Tape #28 left 2nd, 3rd, 4th toe cluster -Ulcer Cleansing Rinsed/ Irrigated with Saline -Primary Dressing Applied NonAdherent Contact Layer -Other Dressing JAEL -Primary Dressing Covered/Secured with Dry Gauze & Roll Gauze, Secured with Tape Right -Other [place] PHUC Left -Other [place] PHUC Treatment Response Procedure Tolerated Well Pain Scale: 0-10 Numeric Is Patient Pain Free? Yes WC - Visit Discharge Discharge Condition Stable Ambulatory Status Ambulatory, Walker Transportation Private Auto Medication Reconcilliation completed & No provided to patient/care provider Clinical Summary of Care Provided Yes Additional Wound Wound debrided: left dorsal 2nd,3rd, 4th toe cluster Laterality: Left Type of Debridement: Excisional debridement Anesthesia Used: 4% Lidocaine Solution Depth: Down to and including healthy tissue and in the subcutaneous layer Percentage of wound debrided: 100 Instrument Used: 3mm curette Tissue Removed: Yellow slough, devitalized tissue Severity: Fat Layer Exposed Amount of bleeding with debridement: Mild Bleeding Controlled with: Compression and gauze Patient tolerated procedure: Patient tolerated procedure well Additional Wound Wound debrided: left luz Laterality: Left Type of Debridement: Excisional debridement Anesthesia Used: 4% Lidocaine Solution Depth: Down to and including healthy tissue and in the subcutaneous layer Percentage of wound debrided: 100 Instrument Used: 3mm curette Tissue Removed: Yellow slough, devitalized tissue Severity: Fat Layer Exposed Amount of bleeding with debridement: Mild Bleeding Controlled with: Compression and gauze Patient tolerated procedure: Patient tolerated procedure well Assessment/Plan Assessment/Plan (1) Skin ulcer of fourth toe of left foot with fat layer exposed: CODE(S): L97.522 - Non-pressure chronic ulcer of other part of left foot with fat layer exposed (2) Skin ulcer of third toe of left foot: CODE(S): L97.529 - Non-pressure chronic ulcer of other part of left foot with unspecified severity QUALIFIERS: Non-pressure ulcer stage: with fat layer exposed Qualified Code(s): L97.522 - Non-pressure chronic ulcer of other part of left foot with fat layer exposed (3) Ulcer of left second toe: CODE(S): L97.529 - Non-pressure chronic ulcer of other part of left foot with unspecified severity QUALIFIERS: Non-pressure ulcer stage: with fat layer exposed Qualified Code(s): L97.522 - Non-pressure chronic ulcer of other part of left foot with fat layer exposed (4) Ulcer of left lower extremity with fat layer exposed: CODE(S): L97.922 - Non-pressure chronic ulcer of unspecified part of left lower leg with fat layer exposed (5) Morbid obesity: CODE(S): E66.01 - Morbid (severe) obesity due to excess calories (6) Chronic kidney disease with end stage 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: CODE(S): N18.6 - End stage renal disease; Z99.2 - Dependence on renal dialysis (7) Type 2 diabetes mellitus: CODE(S): E11.9 - Type 2 diabetes mellitus without complications QUALIFIERS: Diabetes mellitus complication status: with kidney complications Diabetes mellitus complication detail: with chronic kidney disease Diabetes mellitus machine long goods helper insulin use: with skilled nursing use Chronic kidney disease stage: on chronic dialysis Qualified Code(s): E11.22 - Type 2 diabetes mellitus with diabetic chronic kidney disease; N18.6 - End stage renal disease; Z79.4 - exterminator helper (current) use of insulin; Z99.2 - Dependence on renal dialysis (8) Stage 3 severe COPD by GOLD classification: CODE(S): J44.9 - Chronic obstructive pulmonary disease, unspecified PLAN: Mr. Russell's legs have lymphedema and chronic stasis dermatitis. The ulcers of his left plantar foot remain healed. His other ulcers of his left toes are healing. Will dress his left toe ulcers with Promogran covered with adaptic M,W,F for moderate drainage. His left lateral foot will be dressed with Promogran without adaptic M,W,F. Left luz ulcer will also be treated with Promogran without adaptic. His recent labs have been reviewed. Encouraged adequate protein intake. Venous studies show resolution of his DVT. Arterial studies show no significant disease. He was advised to use zinc oxide or triamcinolone cream to his legs once daily to help with his dermatitis. Will plan on returning to maintenance control of his edema with PHUC wraps. He was advised to use his compression pumps twice daily and be vigilant with elevating his legs to avoid worsening of his edema which causes the cellulitis and ulcers. Call with worsening pain, drainage or odor. He was encouraged to call podiatry to schedule appt. for callus right big toe and to call lymphedema pump company regarding his lymphedema pump not working. F/U in 2 weeks.
[2021-03-30 08:27] VITALS: BP 92/44; PULSE 97; RESP 18; TEMP 36.2; BMI 37.3
--- NOTE | 2021-03-30 09:41 | PN.PCM_ITS ---
History of Present Illness Date of Service: 03/30/21 Chief Complaint: left lower extremity ulcer, cellulitis and edema b/l LE History of Wound: Mr. Russell is a 70 yo gentelman well-known to the wound center who presents due to new (recurrent) left lower extremity ulcer. Said to have started about a week ago. He initially noted increased fluid drainage and increased swelling and then erythema. His HH nurse was concerned regarding the appearance of the left lateral leg and it began draining more and his dialysis nurses were also concerned. He also has petechial appearing spots on his toes, and feet b/l but none of his upper extremities or more proximally. Denies chills, fever or otherwise feeling of unwell. He is on chronic dialysis and uses compression pumps to manage his edema. He recently underwent surgery for fistula placement for dialysis. He reports that his edema has been better than it has been in the past but has had scaling and drainage to his skin which had resolved when he was using UNNA boots when he was here last. He applies Eucerin, zinc oxide to his legs but this has not helped the scaling recently of his left leg. His left leg remains more swollen than his right and has significant keratosis. Subjective Subjective His left lateral LE ulcer remains healed. The left lateral foot continues with mild drainage. There are several ulcers of his left dorsal 2,3,4th toes which are still present but are improved. He tolerated treatment with Jael. The new ulcer of his left luz is improving. He underwent arterial testing November 2020 and it showed mild PAD at the level of his ankles. He has also developed a new ulcer of his right leg this week. There is an odor to his wounds, some increased erythema and drainage. He denies fever or chills. Objective Data Objective Data Vital Signs: Vital Signs Temp Pulse Resp BP 97.1 F L 97 18 92/44 L 03/30/21 08:27 03/30/21 08:27 03/30/21 08:27 03/30/21 08:27 Weight: 117.934 kg Body Mass Index (BMI) 37.3 Physical Exam Const alert, oriented x3 and no apparent distress General Appearance: cooperative and comfortable HEENT normocephalic and head/scalp atraumatic Lymph Lymphatic: lymphedema Resp normal respiratory effort Effort and Inspection: able to speak in complete sentences Skin General Skin Exam: venous stasis and dermatitis Wounds: wounds noted Wound Narrative: as in clinical panel Psych thought process normal, cooperative and affect normal Debridement Note Debridement Note Wound debrided: right lateral LE Laterality: Right Wound Grade/Stage: Espinoza grade 1 Type of Debridement: Excisional debridement Anesthesia Used: 4% Lidocaine Solution and 5% Lidocaine Gel Depth: Down to and including healthy tissue and in the subcutaneous layer Percentage of wound debrided: 100 Instrument Used: 5mm curette Tissue Removed: Yellow slough, devitalized tissue Severity: Fat Layer Exposed Amount of bleeding with debridement: Mild Bleeding Controlled with: Compression and gauze Patient tolerated procedure: Patient tolerated procedure well Post-Debridement Measurements and Additional Note: Post-Debridement Measurements/Treatment - Nurse 1 - General Ulcer Assessment Start: 03/16/21 07:58 Freq: Status: Active Protocol: JATIN Activity Type Activity Date Activity User E-Sign Co-Sign Detail Recorded Client Recorded Date Recorded By Document 03/16/21 07:58 [id number] 03/16/21 08:04 RB Document 03/30/21 08:27 RB [id number] 03/30/21 08:40 RB 03/16/21 03/30/21 07:58 08:27 - Today's Visit Information Type of service Follow-up Visit Follow-up Visit (Physician/WASTEWATER ANALYST LAB ANALYST (Physician/WASTEWATER ANALYST LAB ANALYST ) ) Arrival Mode Ambulatory Ambulatory, Walker Transfer Assistance None None Patient Identification Verified (Name & Yes ) Patient Requires Transmission-Based No No Precautions Height and Weight Body Mass Index (BMI) 37.3 37.3 BMI Classification Obese Obese Vital Signs Temperature (97.8 F-99.1 F) 96.6 F L 97.1 F L Temperature Source Temporal Temporal Pulse Rate (60-100) 100 97 Pulse Location Monitor Monitor Respiratory Rate (12-18) 18 18 Respiratory rate source Observation Observation Blood Pressure (90/60-120/80) 96/39 L 92/44 L Blood Pressure Mean (mm Hg) 58 60 Source Monitor Position Sitting Semi-Fowlers Blood Pressure Location Right Arm Left Arm History Since Last Visit- (Skip if this is Patient's initial visit) Have you changed medications since your No No last visit? Any new allergies or adverse reactions No No Had a fall/change in ADL's that may No No increase risk of falls Signs or symptoms of abuse and/or No No neglect since last visit Have you been in the hospital since your No No last visit? Has dressing in place as prescribed Yes Yes Has compression in place as prescribed Yes No Has offloadiing in place as prescribed No No Experienced any changes in pain level or No No management Left Footwear Diabetic Shoe Right Footwear Diabetic Shoe Pain Scale: 0-10 Numeric Is Patient Pain Free? Yes Yes WC - Nurse 1 - General Ulcer Measurement Start: 03/16/21 07:58 Freq: Status: Active Protocol: Activity Type Activity Date Activity User E-Sign Co-Sign Detail Recorded Client Recorded Date Recorded By Document 03/16/21 07:58 RB [id number] 03/16/21 08:04 RB Document 03/30/21 08:27 RB [id number] 03/30/21 08:40 RB 03/16/21 03/30/21 07:58 08:27 Wound Center Nurse 1 32. LLE medial -Combined with other wound No -Current Size (cm) - Length 1.1 -Current Size (cm) - Width 0.4 -Current Size (cm) - Depth 0.2 -Total Square Cm 0.44 -Tunneling No -Undermining/Tunneling No -Exudate Amt Medium -Exudate Type Serosanguineous -Wound Margin Flat & Intact -Granulation Amt Medium (34-66%) -Granulation Quality [place] -Slough/Fibrin Yes -Necrotic Tissue Type Adherent Slough -Structure Exposed N/A -Texture (Jaylyn-wound Skin Appearance) Assessed -Moisture (Jaylyn-wound Skin Appearance) Assessed -Color (Jaylyn-wound Skin Appearance) Assessed -Temperature (Jaylyn-wound Skin No Abnormality Appearance) (Pt Warm) -Tenderness on Palpation (Jaylyn-wound No Skin Appearance) -Ulcer Cleansing Wound Cleanser -Anesthetic Used 5% Lidocaine Gel,Cetacaine 31. RLE anterior -Combined with other wound No -Current Size (cm) - Length 0.7 -Current Size (cm) - Width 0.6 -Current Size (cm) - Depth 0.2 -Total Square Cm 0.42 -Tunneling No -Undermining/Tunneling No -Exudate Amt Medium -Exudate Type Serosanguineous -Wound Margin Flat & Intact -Granulation Amt Medium (34-66%) -Granulation Quality [place] -Slough/Fibrin Yes -Necrosis Amt Medium (34-66%) -Necrotic Tissue Type Adherent Slough -Structure Exposed N/A -Texture (Jaylyn-wound Skin Appearance) Assessed -Moisture (Jaylyn-wound Skin Appearance) Assessed -Color (Jaylyn-wound Skin Appearance) Assessed -Temperature (Jaylyn-wound Skin No Abnormality Appearance) (Pt Warm) -Ulcer Cleansing Wound Cleanser -Foul Odor after Cleansing No -Anesthetic Used 5% Lidocaine Gel #30 left luz -Combined with other wound No No -Current Size (cm) - Length 1.3 0.1 -Current Size (cm) - Width 0.5 0.1 -Current Size (cm) - Depth 0.3 0.1 -Total Square Cm 0.65 0.01 -Tunneling No No -Undermining/Tunneling No No -Circular Undermining No No -Exudate Amt Medium Small -Exudate Type Serosanguineous Serosanguineous -Wound Margin Flat & Intact Flat & Intact -Granulation Amt Medium (34-66%) Medium (34-66%) -Granulation Quality [place] -Slough/Fibrin Yes Yes -Necrosis Amt Large (67-100%) Medium (34-66%) -Necrotic Tissue Type Adherent Slough Adherent Slough -Structure Exposed N/A N/A -Texture (Jaylyn-wound Skin Appearance) Assessed, Assessed Localized Edema -Moisture (Jaylyn-wound Skin Appearance) Assessed Assessed -Color (Jaylyn-wound Skin Appearance) Assessed Assessed -Temperature (Jaylyn-wound Skin No Abnormality No Abnormality Appearance) (Pt Warm) (Pt Warm) -Tenderness on Palpation (Jaylyn-wound No No Skin Appearance) -Ulcer Cleansing Wound Cleanser Rinsed/ Irrigated with Saline -Foul Odor after Cleansing No No -Anesthetic Used 4% Lidocaine 5% Lidocaine Solution Gel 29-left lateral dorsal foot -Combined with other wound No -Current Size (cm) - Length 0.1 0.1 -Current Size (cm) - Width 0.1 0.1 -Current Size (cm) - Depth 0.1 0.1 -Total Square Cm 0.01 0.01 -Tunneling No No -Undermining/Tunneling No No -Circular Undermining No No -Exudate Amt Small Small -Exudate Type Serosanguineous Serosanguineous -Wound Margin Distinct, Flat & Intact Outline Attached -Granulation Amt Medium (34-66%) Medium (34-66%) -Granulation Quality [place] -Slough/Fibrin Yes Yes -Necrosis Amt Medium (34-66%) Medium (34-66%) -Necrotic Tissue Type Adherent Slough Adherent Slough -Structure Exposed None/Limited to N/A Skin Breakdown -Texture (Jaylyn-wound Skin Appearance) Assessed Assessed -Moisture (Jaylyn-wound Skin Appearance) Assessed,Dry/ Assessed Scaly -Color (Jaylyn-wound Skin Appearance) Assessed Assessed -Temperature (Jaylyn-wound Skin No Abnormality No Abnormality Appearance) (Pt Warm) (Pt Warm) -Tenderness on Palpation (Jaylyn-wound No No Skin Appearance) -Ulcer Cleansing Wound Cleanser Wound Cleanser -Foul Odor after Cleansing No No -Anesthetic Used 4% Lidocaine Solution #28 left 2nd, 3rd, 4th toe cluster -Combined with other wound No -Current Size (cm) - Length 0.1 0.1 -Current Size (cm) - Width 0.1 0.1 -Current Size (cm) - Depth 0.1 0.1 -Total Square Cm 0.01 0.01 -Tunneling No No -Undermining/Tunneling No No -Circular Undermining No No -Exudate Amt Small Small -Exudate Type Serosanguineous Serosanguineous -Wound Margin Distinct, Flat & Intact Outline Attached -Granulation Amt Medium (34-66%) Medium (34-66%) -Granulation Quality [place] -Slough/Fibrin Yes Yes -Necrosis Amt Medium (34-66%) Medium (34-66%) -Necrotic Tissue Type Adherent Slough Adherent Slough -Structure Exposed N/A N/A -Texture (Jaylyn-wound Skin Appearance) Assessed Assessed -Moisture (Jaylyn-wound Skin Appearance) Assessed,Dry/ Assessed Scaly -Color (Jaylyn-wound Skin Appearance) Assessed Assessed -Temperature (Jaylyn-wound Skin No Abnormality No Abnormality Appearance) (Pt Warm) (Pt Warm) -Tenderness on Palpation (Jaylyn-wound No No Skin Appearance) -Ulcer Cleansing Wound Cleanser Wound Cleanser -Foul Odor after Cleansing No No -Anesthetic Used 4% Lidocaine Solution Lower Limb Edema Present Yes Yes Right Calf (cm) 41 Right Ankle (cm) 28.7 Left Calf (cm) 46.1 44.6 Left Ankle (cm) 29.4 30 WC - Nurse 2 - General Ulcer CM Notes Start: 03/16/21 07:58 Freq: Status: Active Protocol: Activity Type Activity Date Activity User E-Sign Co-Sign Detail Recorded Client Recorded Date Recorded By Document 03/16/21 08:06 JIM [id number] 03/16/21 08:16 JIM Edit Result 03/16/21 08:06 JF (1) [id number] 03/18/21 18:03 PL Document 03/30/21 08:43 MW [id number] 03/30/21 09:01 MW (1) 29-left lateral dorsal foot - Type of Offloading Total Contact Cast => (TCC) - Left ($) => #28 left 2nd, 3rd, 4th toe cluster - Debridement - Subq, 1st 20sq cm Yes => No 03/16/21 03/30/21 08:06 08:43 Wound Center Nurse 2 #33 right lateral LE -Time 08:55 -Correct Patient Yes -Correct Side, Site, Position Yes -Correct Procedure Yes -Procedure Performed Yes -Type of Procedure Debridement -Clinical Debridement Subcutaneous -Tissue Removed Subcutaneous -Post Debridement (cm) - Length 0.8 -Post Debridement (cm) - Width 0.8 -Post Debridement (cm) - Depth 0.3 -Total Square (Post) (cm) 0.64 -Area of Debridement (cm) - Length 0.8 -Area of Debridement (cm) - Width 0.8 -Total Square (Area) (cm) 0.64 -Tunneling No -Undermining/Tunneling No -Circular Undermining No -Wound/Ulcer Outcome Not Healed -Ulcer Cleansing Rinsed/ Irrigated with Saline -Foul Odor after Cleansing No -Bioengineered Tissue No -Bleeding Controlled with Pressure -Offloading No -Debridement - Subq, 1st 20sq cm No 32. LLE medial -Time 08:46 -Correct Patient Yes -Correct Side, Site, Position Yes -Correct Procedure Yes -Procedure Performed Yes -Type of Procedure Debridement -Clinical Debridement Subcutaneous -Tissue Removed Subcutaneous -Post Debridement (cm) - Length 1.3 -Post Debridement (cm) - Width 0.5 -Post Debridement (cm) - Depth 0.2 -Total Square (Post) (cm) 0.65 -Area of Debridement (cm) - Length 1.3 -Area of Debridement (cm) - Width 0.5 -Total Square (Area) (cm) 0.65 -Tunneling No -Undermining/Tunneling No -Circular Undermining No -Wound/Ulcer Outcome Not Healed -Ulcer Cleansing Rinsed/ Irrigated with Saline -Foul Odor after Cleansing No -Bioengineered Tissue No -Bleeding Controlled with Pressure -Offloading No -Treatment Response Procedure Tolerated Well -Debridement - Subq, 1st 20sq cm Yes 31. RLE anterior -Time 08:47 -Correct Patient Yes -Correct Side, Site, Position Yes -Correct Procedure Yes -Procedure Performed Yes -Type of Procedure Debridement -Clinical Debridement Subcutaneous -Tissue Removed Subcutaneous -Post Debridement (cm) - Length 1.0 -Post Debridement (cm) - Width 0.7 -Post Debridement (cm) - Depth 0.2 -Total Square (Post) (cm) 0.70 -Area of Debridement (cm) - Length 1.0 -Area of Debridement (cm) - Width 0.7 -Total Square (Area) (cm) 0.70 -Tunneling No -Undermining/Tunneling No -Circular Undermining No -Wound/Ulcer Outcome Not Healed -Ulcer Cleansing Rinsed/ Irrigated with Saline -Foul Odor after Cleansing No -Bioengineered Tissue No -Bleeding Controlled with Pressure -Offloading No -Treatment Response Procedure Tolerated Well -Debridement - Subq, 1st 20sq cm No #30 left luz -Time 08:08 08:47 -Correct Patient Yes Yes -Correct Side, Site, Position Yes Yes -Correct Procedure Yes Yes -Procedure Performed Yes No -Type of Procedure Debridement -Clinical Debridement Subcutaneous -Tissue Removed Subcutaneous -Post Debridement (cm) - Length 1.2 -Post Debridement (cm) - Width 0.5 -Post Debridement (cm) - Depth 0.2 -Total Square (Post) (cm) 0.60 -Area of Debridement (cm) - Length 1.2 -Area of Debridement (cm) - Width 0.5 -Total Square (Area) (cm) 0.60 -Tunneling No -Undermining/Tunneling No -Circular Undermining No -Wound/Ulcer Outcome Not Healed Healed- Epithelialized -Ulcer Cleansing Rinsed/ Irrigated with Saline -Foul Odor after Cleansing No -Bioengineered Tissue No -Bleeding Controlled with Pressure -Offloading No -Treatment Response Procedure Tolerated Well -Debridement - Subq, 1st 20sq cm Yes 29-left lateral dorsal foot -Time 08:14 08:47 -Correct Patient Yes Yes -Correct Side, Site, Position Yes Yes -Correct Procedure Yes Yes -Procedure Performed Yes Yes -Type of Procedure Debridement Debridement -Clinical Debridement Subcutaneous Subcutaneous -Tissue Removed Subcutaneous Subcutaneous -Post Debridement (cm) - Length 0.3 1.3 -Post Debridement (cm) - Width 0.3 0.4 -Post Debridement (cm) - Depth 0.2 0.1 -Total Square (Post) (cm) 0.09 0.52 -Area of Debridement (cm) - Length 0.3 1.3 -Area of Debridement (cm) - Width 0.3 0.4 -Total Square (Area) (cm) 0.09 0.52 -Tunneling No No -Undermining/Tunneling No No -Circular Undermining No No -Wound/Ulcer Outcome Not Healed Not Healed -Ulcer Cleansing Rinsed/ Rinsed/ Irrigated with Irrigated with Saline Saline -Foul Odor after Cleansing No No -Bioengineered Tissue No No -Bleeding Controlled with Pressure -Treatment Response Procedure Procedure Tolerated Well Tolerated Well -Debridement - Subq, 1st 20sq cm No No #28 left 2nd, 3rd, 4th toe cluster -Time 08:15 08:48 -Correct Patient Yes Yes -Correct Side, Site, Position Yes Yes -Correct Procedure Yes Yes -Procedure Performed Yes Yes -Type of Procedure Debridement Debridement -Clinical Debridement Subcutaneous Subcutaneous -Tissue Removed Subcutaneous Subcutaneous -Post Debridement (cm) - Length 1 0.3 -Post Debridement (cm) - Width 0.2 0.3 -Post Debridement (cm) - Depth 0.2 0.2 -Total Square (Post) (cm) 0.2 0.09 -Area of Debridement (cm) - Length 1 0.3 -Area of Debridement (cm) - Width 0.2 0.3 -Total Square (Area) (cm) 0.2 0.09 -Tunneling No No -Undermining/Tunneling No No -Circular Undermining No No -Wound/Ulcer Outcome Not Healed Not Healed -Ulcer Cleansing Rinsed/ Rinsed/ Irrigated with Irrigated with Saline Saline -Foul Odor after Cleansing No No -Bioengineered Tissue No No -Bleeding Controlled with Pressure Pressure -Offloading No No -Treatment Response Procedure Procedure Tolerated Well Tolerated Well -Debridement - Subq, 1st 20sq cm No No Pain Scale: 0-10 Numeric Is Patient Pain Free? Yes - Nurse 3 - General Ulcer D/C NN Start: 03/16/21 07:58 Freq: Status: Active Protocol: Activity Type Activity Date Activity User E-Sign Co-Sign Detail Recorded Client Recorded Date Recorded By Document 03/16/21 08:21 RB [id number] 03/16/21 08:32 RB Document 03/30/21 09:06 RB [id number] 03/30/21 09:09 RB 03/16/21 03/30/21 08:21 09:06 Wound Care Nurse 3 #33 right lateral LE -Ulcer Cleansing Wound Cleanser -Primary Dressing Applied Promogran Jael Matter -Primary Dressing Covered/Secured with Dry Gauze,Dry Gauze & Roll Gauze,Secured with Tape -Promogran Jael Matter 1 32. LLE medial -Ulcer Cleansing Wound Cleanser -Other Dressing jael -Primary Dressing Covered/Secured with Dry Gauze,Dry Gauze & Roll Gauze,Secured with Tape 31. RLE anterior -Other Dressing jael -Primary Dressing Covered/Secured with Dry Gauze,Dry Gauze & Roll Gauze,Secured with Tape #30 left luz -Ulcer Cleansing Rinsed/ Irrigated with Saline -Primary Dressing Applied Promogran Jael Matter -Other Dressing ABD -Primary Dressing Covered/Secured with Dry Gauze,Dry Gauze & Roll Gauze -Promogran Jael Matter 1 29-left lateral dorsal foot -Ulcer Cleansing Rinsed/ Irrigated with Saline -Other Dressing JAEL jael -Primary Dressing Covered/Secured with Dry Gauze & Dry Gauze,Dry Roll Gauze, Gauze & Roll Secured with Gauze,Secured Tape with Tape #28 left 2nd, 3rd, 4th toe cluster -Ulcer Cleansing Rinsed/ Irrigated with Saline -Primary Dressing Applied NonAdherent Contact Layer -Other Dressing JAEL jael -Primary Dressing Covered/Secured with Dry Gauze & Dry Gauze,Dry Roll Gauze, Gauze & Roll Secured with Gauze,Secured Tape with Tape Right -Other COTTON LINER cotton limer , PHUC phuc Left -Other COTTONLINER cotton liner , PHUC phuc Treatment Response Procedure Procedure Tolerated Well Tolerated Well Pain Scale: 0-10 Numeric Is Patient Pain Free? Yes Yes WC - Visit Discharge Discharge Condition Stable Stable Ambulatory Status Ambulatory, Ambulatory, Walker Walker Transportation Private Auto Private Auto Medication Reconcilliation completed & No No provided to patient/care provider Clinical Summary of Care Provided Yes Yes Additional Wound Wound debrided: Left LE medial Laterality: Left Wound Grade/Stage: Espinoza grade 1 Type of Debridement: Excisional debridement Anesthesia Used: 4% Lidocaine Solution Depth: Down to and including healthy tissue and in the subcutaneous layer Percentage of wound debrided: 100 Instrument Used: 5mm curette Tissue Removed: Yellow slough, devitalized tissue Severity: Fat Layer Exposed Amount of bleeding with debridement: Mild Bleeding Controlled with: Compression and gauze Patient tolerated procedure: Patient tolerated procedure well Additional Wound Wound debrided: right LE anterior Laterality: Right Wound Grade/Stage: Espinoza grade 1 Type of Debridement: Excisional debridement Anesthesia Used: 4% Lidocaine Solution Depth: Down to and including healthy tissue and in the subcutaneous layer Percentage of wound debrided: 100 Instrument Used: 5mm curette Tissue Removed: Yellow slough, devitalized tissue Severity: Fat Layer Exposed Amount of bleeding with debridement: Mild Bleeding Controlled with: Compression and gauze Patient tolerated procedure: Patient tolerated procedure well Additional Wound Wound debrided: Left lateral dorsal foot Laterality: Left Wound Grade/Stage: Espinoza grade 1 Type of Debridement: Excisional debridement Anesthesia Used: 4% Lidocaine Solution Depth: Down to and including healthy tissue and in the subcutaneous layer Percentage of wound debrided: 100 Instrument Used: 5mm curette Tissue Removed: Yellow slough, devitalized tissue Severity: Fat Layer Exposed Amount of bleeding with debridement: Mild Bleeding Controlled with: Compression and gauze Patient tolerated procedure: Patient tolerated procedure well Additional Wound Wound debrided: Left 2nd, 3rd, 4th toe cluster Laterality: Left Wound Grade/Stage: Espinoza grade 1 Type of Debridement: Excisional debridement Anesthesia Used: 4% Lidocaine Solution Depth: Down to and including healthy tissue and in the subcutaneous layer Percentage of wound debrided: 100 Instrument Used: 3mm curette Tissue Removed: Yellow slough, devitalized tissue Severity: Fat Layer Exposed Amount of bleeding with debridement: Mild Bleeding Controlled with: Compression and gauze Patient tolerated procedure: Patient tolerated procedure well Assessment/Plan Assessment/Plan (1) Skin ulcer of fourth toe of left foot with fat layer exposed: CODE(S): L97.522 - Non-pressure chronic ulcer of other part of left foot with fat layer exposed (2) Skin ulcer of third toe of left foot: CODE(S): L97.529 - Non-pressure chronic ulcer of other part of left foot with unspecified severity QUALIFIERS: Non-pressure ulcer stage: with fat layer exposed Qualified Code(s): L97.522 - Non-pressure chronic ulcer of other part of left foot with fat layer exposed (3) Ulcer of left second toe: CODE(S): L97.529 - Non-pressure chronic ulcer of other part of left foot with unspecified severity QUALIFIERS: Non-pressure ulcer stage: with fat layer exposed Qualified Code(s): L97.522 - Non-pressure chronic ulcer of other part of left foot with fat layer exposed (4) Ulcer of left lower extremity with fat layer exposed: CODE(S): L97.922 - Non-pressure chronic ulcer of unspecified part of left lower leg with fat layer exposed (5) Morbid obesity: CODE(S): E66.01 - Morbid (severe) obesity due to excess calories (6) Chronic kidney disease with end stage 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: CODE(S): N18.6 - End stage renal disease; Z99.2 - Dependence on renal dialysis (7) Type 2 diabetes mellitus: CODE(S): E11.9 - Type 2 diabetes mellitus without complications QUALIFIERS: Chronic kidney disease stage: on chronic dialysis Diabetes mellitus complication detail: with chronic kidney disease Diabetes mellitus complication status: with kidney complications Diabetes mellitus epidemiology investigator insulin use: with nursing home use Qualified Code(s): E11.22 - Type 2 diabetes mellitus with diabetic chronic kidney disease; N18.6 - End stage renal disease; Z79.4 - milk pasteurizer (current) use of insulin; Z99.2 - Dependence on renal dialysis (8) Stage 3 severe COPD by GOLD classification: CODE(S): J44.9 - Chronic obstructive pulmonary disease, unspecified PLAN: Mr. Russell's legs have lymphedema and chronic stasis dermatitis. The ulcers of his left plantar foot remain healed. His other ulcers of his left toes are healing. Will dress his left toe ulcers with Promogran covered with adaptic M,W,F for moderate drainage. His left lateral foot will be dressed with Promogran with adaptic M,W,F. Left luz ulcer will also be treated with Promogran with adaptic. Right anterior LE and right lateral LE will be dressed with Promogran and adaptic. His recent labs have been reviewed. Encouraged adequate protein intake. Venous studies show resolution of his DVT. Arterial studies show no significant disease. He was advised to use zinc oxide or triamcinolone cream to his legs once daily to help with his dermatitis. Will plan on returning to maintenance control of his edema with PHUC wraps. He was advised to use his compression pumps twice daily and be vigilant with elevating his legs to avoid worsening of his edema which causes the cellulitis and ulcers. Call with worsening pain, drainage or odor. He was encouraged to call podiatry to schedule appt. for callus right big toe and to call lymphedema pump company regarding his lymphedema pump not working. F/U in 2 weeks.
== END 2021-04-10 23:59 ==
LOC: WC 08:30
PROVIDERS: PCP Family Medicine; Referring Provider Family Medicine; Visit Provider Family Medicine
DX: E11.621 Type 2 diabetes mellitus with foot ulcer (principal); E11.622 Type 2 diabetes mellitus with other skin ulcer; R60.0 Localized edema; L97.822 Non-pressure chronic ulcer of other part of left lower leg with fat layer exposed; R21 Rash and other nonspecific skin eruption; R23.3 Spontaneous ecchymoses; Z99.2 Dependence on renal dialysis; E11.22 Type 2 diabetes mellitus with diabetic chronic kidney disease; N18.6 End stage renal disease; I12.0 Hypertensive chronic kidney disease with stage 5 chronic kidney disease or end stage renal disease; L97.522 Non-pressure chronic ulcer of other part of left foot with fat layer exposed; E66.01 Morbid (severe) obesity due to excess calories; J44.9 Chronic obstructive pulmonary disease, unspecified; Z68.37 Body mass index [BMI] 37.0-37.9, adult; I89.0 Lymphedema, not elsewhere classified; L97.812 Non-pressure chronic ulcer of other part of right lower leg with fat layer exposed
CPT/HCPCS: 11042; 29445

== ENCOUNTER 2021-04-12 09:31 | Day surgery (SDC) | payer MEDICARE, OTHER, SELFPAY ==
[2021-04-11 08:33] VITALS: BMI 35.9
--- NOTE | 2021-04-12 09:25 | PCM.HP.BLA ---
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 Is patient in pain?: No Allergies No Known Allergies Allergy (Verified 03/21/21 15:14) Medications ascorbic acid (vitamin C) 500 mg PO DAILY 03/08/17 [History Confirmed 03/21/21] allopurinol 300 mg tablet 300 mg PO DAILY 08/23/19 [History Confirmed 03/21/21] cholecalciferol (vitamin D3) 125 mcg (5,000 unit) capsule 125 mcg PO DAILY 08/23/19 [History Confirmed 03/21/21] cyanocobalamin (vitamin B-12) 1,000 mcg capsule 1,000 mcg PO DAILY 08/24/19 [History Confirmed 03/21/21] omega-3 fatty acids 1,000 mg capsule 1,000 mg PO DAILY 08/24/19 [History Confirmed 03/21/21] simvastatin 40 mg PO QHS 10/06/19 [History Confirmed 03/21/21] geriatric qwyajkge-mazs-hutp 1 ea PO DAILY 04/28/20 [History Confirmed 03/21/21] magnesium oxide 500 mg PO DAILY 05/10/20 [History Confirmed 03/21/21] calcium acetate 667 mg tablet 667 mg PO TID tab 10/04/20 [History Confirmed 03/21/21] midodrine 5 mg tablet 5 mg PO TID tab 10/04/20 [History Confirmed 03/21/21] vitamin B comp no.3-folic acid 1 mg-vit C 60 mg-biotin 300 mcg tablet 1 tab PO DAILY 10/04/20 [History Confirmed 03/21/21] vitamin B12 0.5 mg-folic acid 1 mg tablet 1 tab PO DAILY 10/04/20 [History Confirmed 03/21/21] Triamcinolone 0.1% Cream [Kenalog] 1 applic TOPICAL DAILY #454 gm 12/01/20 [Rx Confirmed 03/21/21] levofloxacin See Rx Instructions .ROUTE .COMPLEX #6 tab 12/01/20 [Rx Confirmed 03/21/21] triamcinolone acetonide 1 applic TOPICAL DAILY #454 g 12/01/20 [Rx Confirmed 03/21/21] [facility] Medical History Cardiac murmur Chronic kidney disease Chronic kidney disease with end stage 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 Diabetic neuropathy DRUJ (distal radioulnar joint) arthrosis, primary Essential hypertension Gout Hyperlipidemia Hypertension Hyperuricemia Iron deficiency anemia Primary arthrosis of left distal radioulnar joint Problem with dialysis access Type 2 diabetes mellitus Vascular dialysis catheter in place Surgical History S/P arteriovenous (AV) fistula creation S/P colonoscopy S/P dialysis catheter insertion s/p transposition left forearm AV Fistula (~05/17/20) Status post tonsillectomy Family History Mother Cancer Ovarian Father Hypertension Social History Smoking Status: Never smoker alcohol intake: never substance use type: does not use HPI HPI HPI: GREGORIA RAMIREZ, is a 71 M who presents to the office today for surgical consultation regarding diminished flow rates the patient's hemodialysis fistula. His most recent interaction was November 15, 2020. The patient has a transposed left upper arm basilic vein to brachial artery arteriovenous hemodialysis fistula. His first fistulogram was performed on November 15, 2020 and a high-grade stenosis of the proximal portion of the fistula and anastomotic area. Initially a 5 x 4 Powerflex angioplasty was performed and subsequently a 7 x 2 conquest plasty. Consideration for future treatment possible utilizing an 8 x 2 conquest angioplasty or of course if need be a cutting balloon. The patient has diminished flow rates. He presents today and he is markedly swollen and overweight. He has significant leg swelling. ROS General General: Yes weight change and fatigue; No appetite, colon cancer, breast cancer or weakness HEENT HEENT: No difficulty swallowing, eye injury, eye surgery, swollen glands or hoarseness Endo Endocrine: Yes diabetes mellitus; No thyroid disease, thyroid cancer, Hair loss, heat intolerance or cold intolerance Musc Musculoskeletal: Yes arthritis, rheumatoid arthritis and gout; No back problems or joint pain Cardio Cardiovascular: Yes murmur, heart disease and high blood pressure; No pacemaker, atrial fibrillation, heart attack, heart stent, palpitations, shortness of breat with exertion or chest pain Psych Psychiatric: No depression, anxiety or hearing voices Resp Respiratory: Yes shortness of breath, Yes sleep apnea, No cough, No COPD, No asthma, No emphysema and No wheezing Gastro Gastrointestinal: No abdominal pain, Yes nausea or vomiting, No diarrhea, No constipation, No blood in stool, No acid reflux, No hemorrhoids, No ulcers, No gallbladder problem and Yes black,tarry stools Mitul Hematologic: No blood thinners, No blood disorders, No bleeding, Yes anemia and No blood clots Neuro Neurologic: No weakness Exam Const General: cooperative Nutritional Appearance: obese [facility] Head: normal to inspection Eyes General: appearance normal, both eyes and all related structures Chest Chest palpation & inspection: normal inspection of the chest Resp Other: Diminished respiratory excursion, clear Cardio Rate: regular rate Rhythm: regular rhythm GI Other: Notably overweight, cannot detect any organs Neuro General: patient alert and patient awake Extrem Other: Marked bilateral lower extremity swelling Left upper extremity has a high-pitched thrill in the proximal portion of the fistula. Assessment and Plan Assessment and Plan (1) Problem with dialysis access: Status: Acute Qualifiers: Encounter type: initial encounter Qualified Code(s): T82.898A - Other specified complication of vascular prosthetic devices, implants and grafts, initial encounter Plan - Dr. 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 I propose a retrograde fistulogram with anticipated probable Cutting Balloon angioplasty possibly 8 x 2. He has had an opportunity ask and have questions answered. It is remarkable how much fluid weight he has gained. I have vigorously encouraged him to cooperate with his care team to limit the amount of fluid intake. José Galloway M.D., F.A.C.S. I have re-examined the patient. There are no clinical changes since date of exam. José Galloway M.D., F.A.C.S.
[2021-04-12 09:49] LABS: Hematocrit 28.2 % (40-54); Hemoglobin 9.6 g/dL (13.0-16.5); Mean Corpuscular Volume 96.9 fL (80-94); Mean Platelet Vol. 11.5 fl (6.2-12.0); Platelet Count 128 K/mm3 (150-450); RBC Distribution Width CV 16.7 % (11.6-14.6); Red Blood Count 2.91 M/mm3 (4.6-6.2); White Blood Count 8.2 K/mm3 (4.4-11.0)
[2021-04-12 10:02] LABS: Anion Gap 14 (5-15); BUN 86 mg/dL (7-18); BUN/Creat Ratio 10.6 RATIO (10-20); Calcium,Total 9.6 mg/dL (8.5-10.1); Chloride 91 mmol/L (98-107); Creatinine, Serum 8.11 mg/dL (0.70-1.30); EST Glomerular Filtration Rate 7 mL/min (>60); Est Glom Filt Rate - Afr Amer 8 mL/min (>60); Glucose 118 mg/dL (74-106); Potassium 5.2 mmol/L (3.5-5.1); Sodium Level 128 mmol/L (136-145)
--- NOTE | 2021-04-12 11:16 | OP.PCM_ITS ---
Problems Associated Problem List Diagnoses (1) Problem with dialysis access: Report of Operation Date of Procedure: 04/12/21 Pre-Operative Diagnosis: Problem with dialysis access, diminished flow left upper arm transposed basilic vein to brachial artery arteriovenous hemodialysis fistula Post-Operative Diagnosis: High-grade proximal venous fistula stenosis Surgery/Procedure Performed:: Left upper extremity fistulogram with 8 x 2 cutting balloon angioplasty Description of Surgical Findings:: Timeout informed consent was obtained. 71-year-old gentleman was taken to the special procedures lab placed on the table he received 50 mcg of fentanyl 1 mg of Versed is intravenous sedation. The left upper extremity sterilely prepped and draped. Ultrasound was used to identify the transposed basilic vein closer to the shoulder area and then 2% lidocaine was instilled under ultrasound guidance. Retrograde with flow micropuncture needle was inserted under ultrasound guidance micropuncture wire 6 Vincentian short sheath dilator. Tediously using an 035 angled Glidewire and 4 Vincentian glide cath finally got access to the brachial artery was able to get the wire to go retrograde into the brachial artery. I advanced a 4 Vincentian glide cath. Using Isovue contrast fistulogram was obtained. This demonstrated high- grade 90% stenosis of the proximal 3 cm of the fistula. I was then able to exchanged out for an SV 5 wire and we also did upgraded to a 7 Vincentian sheath. The patient received 5000 Ancef heparin intravenously. An 8 x 2 cutting balloon was inserted and 3 separate locations in the proximal portion of the fistula balloon angioplasty was performed. At least at 2 insufflations per area. The final inflations were performed up to 10 rama of pressure. The patient tolerated this all very well. The balloon was removed and a 4 Vincentian glide cath reinserted and a final fistulogram was obtained now demonstrating dramatic improvement in the proximal portion of that fistula with complete resolution of the areas of stenosis. The fistulogram was completed and there was excellent central venous outflow. No apparent complication sheath was removed and a U suture of 4-0 nylon was placed hemostasis was intact there is a good pulse thrill and bruit at the completion Specimen none. Drains none. Blood loss minimal. Fistulogram demonstrates a transposed left upper arm basilic vein to brachial artery arteriovenous hemodialysis fistula. The proximal 3 cm of the fistula has high-grade 90% stenosis. The remainder of the fistula in the upper arm and outflow area appears to be widely patent. Subsequent to the Cutting Balloon angioplasty there appears to be complete resolution to the area of previous stenosis. José Galloway M.D., F.A.C.S. Surgeon: José Galloway Type of Anesthesia: IV Sedation and Local
== END 2021-04-12 12:55 | disposition home or self-care (01) ==
LOC: CLSP 09:33
PROVIDERS: PCP Family Medicine; Visit Provider Surgery
DX: T82.858A Stenosis of other vascular prosthetic devices, implants and grafts, initial encounter (principal); I12.0 Hypertensive chronic kidney disease with stage 5 chronic kidney disease or end stage renal disease; N18.6 End stage renal disease; Z99.2 Dependence on renal dialysis; E11.22 Type 2 diabetes mellitus with diabetic chronic kidney disease; E78.5 Hyperlipidemia, unspecified; D50.9 Iron deficiency anemia, unspecified; E11.40 Type 2 diabetes mellitus with diabetic neuropathy, unspecified
CPT/HCPCS: 36415; 36902; 76937; 80048; 85027; 99152; 99153; Q9967; C1725; C1769; C1894

== ENCOUNTER 2021-04-27 10:00 | Outpatient (RCR) | payer MEDICARE, OTHER, SELFPAY ==
[2021-04-11 00:26] VITALS: BP 92/44; PULSE 97; RESP 18; TEMP 36.2; BMI 37.3
[2021-04-13 10:27] VITALS: BP 114/56; PULSE 101; RESP 18; TEMP 36.6; BMI 37.3
--- NOTE | 2021-04-13 15:01 | PN.PCM_ITS ---
History of Present Illness Date of Service: 04/13/21 Chief Complaint: left lower extremity ulcer, cellulitis and edema b/l LE History of Wound: Mr. Russell is a 70 yo gentelman well-known to the wound center who presents due to new (recurrent) left lower extremity ulcer. Said to have started about a week ago. He initially noted increased fluid drainage and increased swelling and then erythema. His HH nurse was concerned regarding the appearance of the left lateral leg and it began draining more and his dialysis nurses were also concerned. He also has petechial appearing spots on his toes, and feet b/l but none of his upper extremities or more proximally. Denies chills, fever or otherwise feeling of unwell. He is on chronic dialysis and uses compression pumps to manage his edema. He recently underwent surgery for fistula placement for dialysis. He reports that his edema has been better than it has been in the past but has had scaling and drainage to his skin which had resolved when he was using UNNA boots when he was here last. He applies Eucerin, zinc oxide to his legs but this has not helped the scaling recently of his left leg. His left leg remains more swollen than his right and has significant keratosis. Subjective Subjective His left lateral LE ulcer remains healed. The left lateral foot continues with mild drainage. There are several ulcers of his left dorsal 2,3,4th toes which are still present but are improved. He tolerated treatment with Mackenzie. The new ulcer of his left luz is improving. He underwent arterial testing November 2020 and it showed mild PAD at the level of his ankles. The ulcer of his right leg is improving. He denies fever or chills, increased erythema or drainage. He completed antibiotic treatment. Objective Data Objective Data Vital Signs: Vital Signs Temp Pulse Resp BP 97.8 F 101 H 18 114/56 L 04/13/21 10:27 04/13/21 10:27 04/13/21 10:27 04/13/21 10:27 Weight: 117.934 kg Body Mass Index (BMI) 37.3 Physical Exam Const alert, oriented x3 and no apparent distress General Appearance: cooperative and comfortable HEENT normocephalic and head/scalp atraumatic Mouth: oral and palatal mucosa normal Lymph Lymphatic: lymphedema severe Resp normal respiratory effort Effort and Inspection: able to speak in complete sentences Cardio regular rate and regular rhythm Extremity General Extremity: edema bilateral lower extremity Details: severe Skin General Skin Exam: crusts, dry skin, venous stasis and dermatitis Wounds: wounds noted Wound Narrative: as in clinical panel Psych mental status grossly normal, thought process normal, cooperative and affect normal Debridement Note Debridement Note Wound debrided: right lateral LE Laterality: Right Wound Grade/Stage: Espinoza grade 1 Type of Debridement: Excisional debridement Anesthesia Used: 4% Lidocaine Solution and 5% Lidocaine Gel Depth: Down to and including healthy tissue and in the subcutaneous layer Percentage of wound debrided: 100 Instrument Used: 3mm curette Tissue Removed: Yellow slough, devitalized tissue Severity: Fat Layer Exposed Amount of bleeding with debridement: Mild Bleeding Controlled with: Compression and gauze Patient tolerated procedure: Patient tolerated procedure well Post-Debridement Measurements and Additional Note: Post-Debridement Measurements/Treatment - Nurse 1 - General Ulcer Assessment Start: 04/13/21 10:27 Freq: Status: Active Protocol: JATIN Activity Type Activity Date Activity User E-Sign Co-Sign Detail Recorded Client Recorded Date Recorded By Document 04/13/21 10:27 [id number] 04/13/21 10:41 RB 04/13/21 10:27 - Today's Visit Information Type of service Follow-up Visit (Physician/APPLICATION INTERNSHIP ) Arrival Mode Ambulatory, Walker Transfer Assistance None Patient Identification Verified (Name & Yes ) Patient Requires Transmission-Based No Precautions Finger Stick Blood Sugar(mg/dl) (if 110 indicated): Blood Sugar Stated by Patient Height and Weight Body Mass Index (BMI) 37.3 BMI Classification Obese Vital Signs Temperature (97.8 F-99.1 F) 97.8 F Temperature Source Temporal Pulse Rate (60-100) 101 H Pulse Location Monitor Respiratory Rate (12-18) 18 Respiratory rate source Observation Blood Pressure (90/60-120/80) 114/56 L Blood Pressure Mean (mm Hg) 75 Source Monitor Position Sitting Blood Pressure Location Right Arm History Since Last Visit- (Skip if this is Patient's initial visit) Have you changed medications since your No last visit? Any new allergies or adverse reactions No Had a fall/change in ADL's that may No increase risk of falls Signs or symptoms of abuse and/or No neglect since last visit Have you been in the hospital since your No last visit? Has dressing in place as prescribed Yes Has compression in place as prescribed Yes Has offloadiing in place as prescribed No Experienced any changes in pain level or No management Left Footwear Diabetic Shoe Right Footwear Diabetic Shoe Pain Scale: 0-10 Numeric Is Patient Pain Free? Yes WC - Nurse 1 - General Ulcer Measurement Start: 04/13/21 10:27 Freq: Status: Active Protocol: Activity Type Activity Date Activity User E-Sign Co-Sign Detail Recorded Client Recorded Date Recorded By Document 04/13/21 10:27 RB [id number] 04/13/21 10:41 RB 04/13/21 10:27 Wound Center Nurse 1 #33 right lateral LE -Combined with other wound No -Current Size (cm) - Length 1 -Current Size (cm) - Width 1 -Current Size (cm) - Depth 0.3 -Total Square Cm 1 -Tunneling No -Undermining/Tunneling No -Circular Undermining No -Exudate Amt Small -Exudate Type Serosanguineous -Wound Margin Distinct, Outline Attached -Granulation Amt Medium (34-66%) -Granulation Quality [place] -Slough/Fibrin Yes -Necrosis Amt Large (67-100%) -Necrotic Tissue Type Adherent Slough -Structure Exposed N/A -Texture (Jaylyn-wound Skin Appearance) Assessed -Moisture (Jaylyn-wound Skin Appearance) Dry/Scaly -Color (Jaylyn-wound Skin Appearance) Assessed -Temperature (Jaylyn-wound Skin No Abnormality Appearance) (Pt Warm) -Tenderness on Palpation (Jaylyn-wound No Skin Appearance) -Ulcer Cleansing Rinsed/ Irrigated with Saline -Foul Odor after Cleansing No -Anesthetic Used 5% Lidocaine Gel 32. LLE medial -Combined with other wound No -Current Size (cm) - Length 1 -Current Size (cm) - Width 0.5 -Current Size (cm) - Depth 0.2 -Total Square Cm 0.5 -Tunneling No -Undermining/Tunneling No -Circular Undermining No -Exudate Amt Medium -Exudate Type Serosanguineous -Wound Margin Distinct, Outline Attached -Granulation Amt Medium (34-66%) -Granulation Quality [place] -Slough/Fibrin Yes -Necrosis Amt Medium (34-66%) -Necrotic Tissue Type Adherent Slough -Structure Exposed N/A -Texture (Jaylyn-wound Skin Appearance) Assessed -Moisture (Jaylyn-wound Skin Appearance) Dry/Scaly -Color (Jaylyn-wound Skin Appearance) Assessed -Temperature (Jaylyn-wound Skin No Abnormality Appearance) (Pt Warm) -Tenderness on Palpation (Jaylyn-wound No Skin Appearance) -Ulcer Cleansing Wound Cleanser -Foul Odor after Cleansing No -Anesthetic Used 5% Lidocaine Gel 31. RLE anterior -Combined with other wound No -Current Size (cm) - Length 0.5 -Current Size (cm) - Width 0.5 -Current Size (cm) - Depth 0.1 -Total Square Cm 0.25 -Tunneling No -Undermining/Tunneling No -Circular Undermining No -Exudate Amt Medium -Exudate Type Serosanguineous -Wound Margin Distinct, Outline Attached -Granulation Amt Medium (34-66%) -Granulation Quality [place] -Slough/Fibrin Yes -Necrosis Amt Medium (34-66%) -Necrotic Tissue Type Adherent Slough -Structure Exposed N/A -Texture (Jaylyn-wound Skin Appearance) Assessed -Moisture (Jaylyn-wound Skin Appearance) Assessed,Dry/ Scaly -Color (Jaylyn-wound Skin Appearance) Assessed -Temperature (Jaylyn-wound Skin No Abnormality Appearance) (Pt Warm) -Tenderness on Palpation (Jaylyn-wound No Skin Appearance) -Ulcer Cleansing Wound Cleanser -Foul Odor after Cleansing No -Anesthetic Used 5% Lidocaine Gel #30 left luz -Current Size (cm) - Length 0.1 -Current Size (cm) - Width 0.1 -Current Size (cm) - Depth 0.1 -Total Square Cm 0.01 -Tunneling No -Undermining/Tunneling No -Circular Undermining No -Exudate Amt Medium -Exudate Type Serosanguineous -Wound Margin Distinct, Outline Attached -Granulation Amt Medium (34-66%) -Granulation Quality [place] -Slough/Fibrin Yes -Necrosis Amt Medium (34-66%) -Necrotic Tissue Type Adherent Slough -Structure Exposed N/A -Texture (Jaylyn-wound Skin Appearance) Assessed -Moisture (Jaylyn-wound Skin Appearance) Dry/Scaly -Color (Jaylyn-wound Skin Appearance) Assessed -Temperature (Jaylyn-wound Skin No Abnormality Appearance) (Pt Warm) -Tenderness on Palpation (Jaylyn-wound No Skin Appearance) -Ulcer Cleansing Wound Cleanser -Foul Odor after Cleansing No -Anesthetic Used 5% Lidocaine Gel 29-left lateral dorsal foot -Combined with other wound No -Current Size (cm) - Length 1 -Current Size (cm) - Width 0.7 -Current Size (cm) - Depth 0.1 -Total Square Cm 0.7 -Tunneling No -Undermining/Tunneling No -Circular Undermining No -Exudate Amt Medium -Exudate Type Serosanguineous -Wound Margin Distinct, Outline Attached -Granulation Amt Medium (34-66%) -Granulation Quality [place] -Slough/Fibrin Yes -Necrosis Amt Small (1-33%) -Necrotic Tissue Type Adherent Slough -Structure Exposed N/A -Texture (Jaylyn-wound Skin Appearance) Assessed -Moisture (Jaylyn-wound Skin Appearance) Dry/Scaly -Color (Jaylyn-wound Skin Appearance) Assessed -Temperature (Jaylyn-wound Skin No Abnormality Appearance) (Pt Warm) -Tenderness on Palpation (Jaylyn-wound No Skin Appearance) -Ulcer Cleansing Wound Cleanser -Foul Odor after Cleansing No -Anesthetic Used 5% Lidocaine Gel #28 left 2nd, 3rd, 4th toe cluster -Combined with other wound No -Current Size (cm) - Length 0.1 -Current Size (cm) - Width 0.1 -Current Size (cm) - Depth 0.1 -Total Square Cm 0.01 -Tunneling No -Undermining/Tunneling No -Circular Undermining No -Exudate Amt Medium -Exudate Type Serosanguineous -Wound Margin Distinct, Outline Attached -Granulation Amt Medium (34-66%) -Granulation Quality [place] -Slough/Fibrin Yes -Necrosis Amt Large (67-100%) -Necrotic Tissue Type Adherent Slough -Structure Exposed N/A -Texture (Jaylyn-wound Skin Appearance) Assessed -Moisture (Jaylyn-wound Skin Appearance) Dry/Scaly -Color (Jaylyn-wound Skin Appearance) Assessed -Temperature (Jaylyn-wound Skin No Abnormality Appearance) (Pt Warm) -Tenderness on Palpation (Jaylyn-wound No Skin Appearance) -Ulcer Cleansing Wound Cleanser -Foul Odor after Cleansing No -Anesthetic Used 5% Lidocaine Gel Lower Limb Edema Present Yes Right Calf (cm) 43 Right Ankle (cm) 28.4 Left Calf (cm) 46.5 Left Ankle (cm) 30.5 WC - Nurse 2 - General Ulcer CM Notes Start: 04/13/21 10:27 Freq: Status: Active Protocol: Activity Type Activity Date Activity User E-Sign Co-Sign Detail Recorded Client Recorded Date Recorded By Document 04/13/21 11:03 JIM [id number] 04/13/21 11:13 JIM 04/13/21 11:03 Wound Center Nurse 2 #33 right lateral LE -Time 11:04 -Correct Patient Yes -Correct Side, Site, Position Yes -Correct Procedure Yes -Procedure Performed Yes -Type of Procedure Debridement -Clinical Debridement Subcutaneous -Tissue Removed Subcutaneous -Post Debridement (cm) - Length 1 -Post Debridement (cm) - Width 1 -Post Debridement (cm) - Depth 0.2 -Total Square (Post) (cm) 1 -Area of Debridement (cm) - Length 1 -Area of Debridement (cm) - Width 1 -Total Square (Area) (cm) 1 -Tunneling No -Undermining/Tunneling No -Circular Undermining No -Wound/Ulcer Outcome Not Healed -Ulcer Cleansing Rinsed/ Irrigated with Saline -Foul Odor after Cleansing No -Bioengineered Tissue No -Bleeding Controlled with Pressure -Offloading No -Treatment Response Procedure Tolerated Well -Debridement - Subq, 1st 20sq cm No 32. LLE medial -Time 11:07 -Correct Patient Yes -Correct Side, Site, Position Yes -Correct Procedure Yes -Procedure Performed Yes -Type of Procedure Debridement -Clinical Debridement Subcutaneous -Tissue Removed Subcutaneous -Post Debridement (cm) - Length 1 -Post Debridement (cm) - Width 0.5 -Post Debridement (cm) - Depth 0.2 -Total Square (Post) (cm) 0.5 -Area of Debridement (cm) - Length 1 -Area of Debridement (cm) - Width 0.5 -Total Square (Area) (cm) 0.5 -Tunneling No -Undermining/Tunneling No -Circular Undermining No -Wound/Ulcer Outcome Not Healed -Ulcer Cleansing Rinsed/ Irrigated with Saline -Foul Odor after Cleansing No -Bioengineered Tissue No -Bleeding Controlled with Pressure -Offloading No -Treatment Response Procedure Tolerated Well -Debridement - Subq, 1st 20sq cm No 31. RLE anterior -Time 11:06 -Correct Patient Yes -Correct Side, Site, Position Yes -Correct Procedure Yes -Procedure Performed Yes -Type of Procedure Debridement -Clinical Debridement Subcutaneous -Tissue Removed Subcutaneous -Post Debridement (cm) - Length 0.6 -Post Debridement (cm) - Width 0.5 -Post Debridement (cm) - Depth 0.1 -Total Square (Post) (cm) 0.30 -Area of Debridement (cm) - Length 0.6 -Area of Debridement (cm) - Width 0.5 -Total Square (Area) (cm) 0.30 -Tunneling No -Undermining/Tunneling No -Circular Undermining No -Wound/Ulcer Outcome Not Healed -Ulcer Cleansing Rinsed/ Irrigated with Saline -Foul Odor after Cleansing No -Bioengineered Tissue No -Bleeding Controlled with Pressure -Offloading No -Treatment Response Procedure Tolerated Well -Debridement - Subq, 1st 20sq cm No #30 left luz -Correct Patient No -Correct Side, Site, Position No -Correct Procedure No -Procedure Performed No -Post Debridement (cm) - Length 0 -Post Debridement (cm) - Width 0 -Post Debridement (cm) - Depth 0 -Total Square (Post) (cm) 0 -Area of Debridement (cm) - Length 0 -Area of Debridement (cm) - Width 0 -Total Square (Area) (cm) 0 -Wound/Ulcer Outcome Healed- Epithelialized 29-left lateral dorsal foot -Time 11:09 -Correct Patient Yes -Correct Side, Site, Position Yes -Correct Procedure Yes -Procedure Performed Yes -Type of Procedure Debridement -Clinical Debridement Subcutaneous -Tissue Removed Subcutaneous -Post Debridement (cm) - Length 1.0 -Post Debridement (cm) - Width 0.5 -Post Debridement (cm) - Depth 0.2 -Total Square (Post) (cm) 0.50 -Area of Debridement (cm) - Length 1.0 -Area of Debridement (cm) - Width 0.5 -Total Square (Area) (cm) 0.50 -Tunneling No -Undermining/Tunneling No -Circular Undermining No -Wound/Ulcer Outcome Not Healed -Ulcer Cleansing Rinsed/ Irrigated with Saline -Foul Odor after Cleansing No -Bioengineered Tissue No -Bleeding Controlled with Pressure -Offloading No -Treatment Response Procedure Tolerated Well -Debridement - Subq, 1st 20sq cm No #28 left 2nd, 3rd, 4th toe cluster -Time 11:10 -Correct Patient Yes -Correct Side, Site, Position Yes -Correct Procedure Yes -Procedure Performed Yes -Type of Procedure Incision & Drainage -Clinical Debridement Subcutaneous -Tissue Removed Subcutaneous -Post Debridement (cm) - Length 1.5 -Post Debridement (cm) - Width 2 -Post Debridement (cm) - Depth 0.2 -Total Square (Post) (cm) 3.0 -Area of Debridement (cm) - Length 1.5 -Area of Debridement (cm) - Width 2.0 -Total Square (Area) (cm) 3.00 -Tunneling No -Undermining/Tunneling No -Circular Undermining No -Wound/Ulcer Outcome Not Healed -Ulcer Cleansing Rinsed/ Irrigated with Saline -Foul Odor after Cleansing No -Bioengineered Tissue No -Bleeding Controlled with Pressure -Offloading No -Treatment Response Procedure Tolerated Well -Debridement - Subq, 1st 20sq cm Yes Pain Scale: 0-10 Numeric Is Patient Pain Free? Yes WC - Nurse 3 - General Ulcer D/C NN Start: 04/13/21 10:27 Freq: Status: Active Protocol: Activity Type Activity Date Activity User E-Sign Co-Sign Detail Recorded Client Recorded Date Recorded By Document 04/13/21 12:35 INOCENCIO [id number] 04/13/21 12:39 INOCENCIO 04/13/21 12:35 Wound Care Nurse 3 #33 right lateral LE -Ulcer Cleansing Rinsed/ Irrigated with Saline -Foul Odor after Cleansing No -Negative Pressure Wound Therapy N/A -Primary Dressing Applied Promogran Mackenzie Matter -Other Covering Kerlix -Promogran Mack[place] Matter 1 32. LLE medial -Ulcer Cleansing Rinsed/ Irrigated with Saline -Foul Odor after Cleansing No -Negative Pressure Wound Therapy N/A -Primary Dressing Applied Promogran [place] Matter -Promogran [place] Matter 0 31. RLE anterior -Ulcer Cleansing Rinsed/ Irrigated with Saline -Negative Pressure Wound Therapy N/A -Primary Dressing Applied Promogran Mackenzie Matter -Promogran [place] Matter 0 29-left lateral dorsal foot -Ulcer Cleansing Rinsed/ Irrigated with Saline -Primary Dressing Applied Promogran Mackenzie Matter -Promogran Mackenzie Matter 0 #28 left 2nd, 3rd, 4th toe cluster -Ulcer Cleansing Rinsed/ Irrigated with Saline -Primary Dressing Applied Promogran [place] Matter -Promogran [place] Matter 0 Right -Compression Wrap Krunal Wrap Left -Compression Wrap Krunal Wrap WC - Visit Discharge Discharge Condition Stable Ambulatory Status Wheelchair Medication Reconcilliation completed & No provided to patient/care provider Clinical Summary of Care Provided Yes Additional Wound Wound debrided: LLE medial Laterality: Left Wound Grade/Stage: Espinoza grade 1 Type of Debridement: Excisional debridement Anesthesia Used: 4% Lidocaine Solution and 5% Lidocaine Gel Depth: Down to and including healthy tissue and in the subcutaneous layer Percentage of wound debrided: 100 Instrument Used: 3mm curette Tissue Removed: Yellow slough, devitalized tissue Severity: Fat Layer Exposed Amount of bleeding with debridement: Mild Bleeding Controlled with: Compression and gauze Patient tolerated procedure: Patient tolerated procedure well Additional Wound Wound debrided: RLE anterior Laterality: Right Wound Grade/Stage: Espinoza grade 1 Type of Debridement: Excisional debridement Anesthesia Used: 4% Lidocaine Solution Depth: Down to and including healthy tissue and in the subcutaneous layer Percentage of wound debrided: 100 Instrument Used: 3mm curette Tissue Removed: Yellow slough, devitalized tissue Severity: Fat Layer Exposed Amount of bleeding with debridement: Mild Bleeding Controlled with: Compression and gauze Patient tolerated procedure: Patient tolerated procedure well Additional Wound Wound debrided: Left lateral dorsal foot Laterality: Left Wound Grade/Stage: Espinoza grade 1 Type of Debridement: Excisional debridement Anesthesia Used: 4% Lidocaine Solution and 5% Lidocaine Gel Depth: Down to and including healthy tissue and in the subcutaneous layer Percentage of wound debrided: 100 Instrument Used: 3mm curette Tissue Removed: Yellow slough, devitalized tissue Severity: Fat Layer Exposed Amount of bleeding with debridement: Mild Bleeding Controlled with: Compression and gauze Patient tolerated procedure: Patient tolerated procedure well Additional Wound Wound debrided: left 2nd, 3rd, 4th toe cluster Laterality: Left Wound Grade/Stage: Espinoza grade 1 Type of Debridement: Excisional debridement Anesthesia Used: 4% Lidocaine Solution Depth: Down to and including healthy tissue and in the subcutaneous layer Percentage of wound debrided: 100 Instrument Used: 3mm curette Tissue Removed: Yellow slough, devitalized tissue Severity: Fat Layer Exposed Amount of bleeding with debridement: Mild Bleeding Controlled with: Compression and gauze Patient tolerated procedure: Patient tolerated procedure well Assessment/Plan Assessment/Plan (1) Skin ulcer of fourth toe of left foot with fat layer exposed: CODE(S): L97.522 - Non-pressure chronic ulcer of other part of left foot with fat layer exposed (2) Skin ulcer of third toe of left foot: CODE(S): L97.529 - Non-pressure chronic ulcer of other part of left foot with unspecified severity QUALIFIERS: Non-pressure ulcer stage: with fat layer exposed Qualified Code(s): L97.522 - Non-pressure chronic ulcer of other part of left foot with fat layer exposed (3) Ulcer of left lower extremity with fat layer exposed: CODE(S): L97.922 - Non-pressure chronic ulcer of unspecified part of left lower leg with fat layer exposed (4) Ulcer of left foot: CODE(S): L97.529 - Non-pressure chronic ulcer of other part of left foot with unspecified severity QUALIFIERS: Non-pressure ulcer stage: limited to breakdown of skin Qualified Code(s): L97.521 - Non-pressure chronic ulcer of other part of left foot limited to breakdown of skin (5) Ulcer of right lower extremity with fat layer exposed: CODE(S): L97.912 - Non-pressure chronic ulcer of unspecified part of right lower leg with fat layer exposed (6) HERNÁN (obstructive sleep apnea): CODE(S): G47.33 - Obstructive sleep apnea (adult) (pediatric) (7) Obesity: CODE(S): E66.9 - Obesity, unspecified QUALIFIERS: Obesity type: unspecified obesity type Obesity classification: adult class 2 (BMI 35 - 39.9) Serious obesity comorbidity presence: with serious comorbidity Body mass index: BMI 37.0-37.9 Qualified Code(s): E66.01 - Morbid (severe) obesity due to excess calories; Z68.37 - Body mass index [BMI] 37.0-37.9, adult (8) Chronic acquired lymphedema: CODE(S): I89.0 - Lymphedema, not elsewhere classified (9) Venous stasis dermatitis: CODE(S): I87.2 - Venous insufficiency (chronic) (peripheral) QUALIFIERS: Laterality: bilateral Qualified Code(s): I87.2 - Venous insufficiency (chronic) (peripheral) (10) Stage 3 severe COPD by GOLD classification: CODE(S): J44.9 - Chronic obstructive pulmonary disease, unspecified (11) Lymphedema of both lower extremities: CODE(S): I89.0 - Lymphedema, not elsewhere classified (12) Chronic kidney disease with end stage 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: CODE(S): N18.6 - End stage renal disease; Z99.2 - Dependence on renal dialysis (13) Essential hypertension: CODE(S): I10 - Essential (primary) hypertension (14) Type 2 diabetes mellitus: CODE(S): E11.9 - Type 2 diabetes mellitus without complications QUALIFIERS: Diabetes mellitus complication status: with kidney complications Diabetes mellitus complication detail: with chronic kidney disease 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 Russell's legs have lymphedema and chronic stasis dermatitis. The ulcers of his left plantar foot remain healed. His other ulcers of his left toes are healing. Will dress his left toe ulcers with Promogran covered with adaptic M,W,F for moderate drainage. His left lateral foot will be dressed with Promogran with adaptic M,W,F. Left luz ulcer will also be treated with Promogran with adaptic. Right anterior LE and right lateral LE will be dressed with Promogran and adaptic. His recent labs have been reviewed. Encouraged adequate protein intake. Venous studies show resolution of his DVT. Arterial studies show no significant disease. He was advised to use zinc oxide or triamcinolone cream to his legs once daily to help with his dermatitis. Will plan on returning to maintenance control of his edema with KRUNAL wraps. He was advised to use his compression pumps twice daily and be vigilant with elevating his legs to avoid worsening of his edema which causes the cellulitis and ulcers. Call with worsening pain, drainage or odor. F/U in 2 weeks.
[2021-04-27 09:58] VITALS: BP 85/38; PULSE 99; RESP 18; TEMP 36.1; BMI 37.3
--- NOTE | 2021-04-27 15:25 | PN.PCM_ITS ---
History of Present Illness Date of Service: 04/27/21 Chief Complaint: left lower extremity ulcer, cellulitis and edema b/l LE History of Wound: Mr. Russell is a 70 yo gentelman well-known to the wound center who presents due to new (recurrent) left lower extremity ulcer. Said to have started about a week ago. He initially noted increased fluid drainage and increased swelling and then erythema. His HH nurse was concerned regarding the appearance of the left lateral leg and it began draining more and his dialysis nurses were also concerned. He also has petechial appearing spots on his toes, and feet b/l but none of his upper extremities or more proximally. Denies chills, fever or otherwise feeling of unwell. He is on chronic dialysis and uses compression pumps to manage his edema. He recently underwent surgery for fistula placement for dialysis. He reports that his edema has been better than it has been in the past but has had scaling and drainage to his skin which had resolved when he was using UNNA boots when he was here last. He applies Eucerin, zinc oxide to his legs but this has not helped the scaling recently of his left leg. His left leg remains more swollen than his right and has significant keratosis. Subjective Subjective His left lateral LE ulcer remains healed. The left lateral foot continues with mild drainage. There are several ulcers of his left dorsal 2,3,4th toes which are still present but are improved. He tolerated treatment with Laura. The new ulcer of his left luz is improving. He underwent arterial testing November 2020 and it showed mild PAD at the level of his ankles. The ulcer of his right leg is worsening. His edema is worse today compared to previous. He hasn't been faithful with Circaids. He denies fever or chills, increased erythema or drainage. He completed antibiotic treatment. Objective Data Objective Data Vital Signs: Vital Signs Temp Pulse Resp BP 97 F L 99 18 85/38 L 04/27/21 09:58 04/27/21 09:58 04/27/21 09:58 04/27/21 09:58 Oxygen Delivery Method Room Air Weight: 117.934 kg Body Mass Index (BMI) 37.3 Lab / Micro Data Micro: Microbiology 04/27/21 10:50 Wound - Leg, Right Gram Stain - Final Physical Exam Const alert, oriented x3 and no apparent distress General Appearance: cooperative and comfortable HEENT normocephalic and head/scalp atraumatic Lymph Lymphatic: lymphedema severe Resp normal respiratory effort Effort and Inspection: able to speak in complete sentences Cardio regular rate and regular rhythm Extremity General Extremity: edema bilateral lower extremity Details: severe Skin General Skin Exam: crusts, dry skin, venous stasis and dermatitis Wounds: wounds noted Wound Narrative: as in clinical panel Psych mental status grossly normal, thought process normal, cooperative and affect normal Debridement Note Debridement Note Wound debrided: Right lateral LE cluster Laterality: Right Wound Grade/Stage: Espinoza grade 2 Type of Debridement: Excisional debridement Anesthesia Used: 4% Lidocaine Solution and 5% Lidocaine Gel Depth: Down to and including healthy tissue and in the subcutaneous layer Percentage of wound debrided: 100 Instrument Used: 5mm curette Tissue Removed: Yellow slough, devitalized tissue Severity: Fat Layer Exposed Amount of bleeding with debridement: Mild Bleeding Controlled with: Compression and gauze Patient tolerated procedure: Patient tolerated procedure well Post-Debridement Measurements and Additional Note: Post-Debridement Measurements/Treatment - Nurse 1 - General Ulcer Assessment Start: 04/13/21 10:27 Freq: Status: Active Protocol: JATIN Activity Type Activity Date Activity User E-Sign Co-Sign Detail Recorded Client Recorded Date Recorded By Document 04/13/21 10:27 [id number] 04/13/21 10:41 RB Document 04/27/21 09:58 VT [id number] 04/27/21 10:19 VT 04/13/21 04/27/21 10:27 09:58 - Today's Visit Information Type of service Follow-up Visit Follow-up Visit (Physician/JUKEBOX ROUTE DRIVER (Physician/JUKEBOX ROUTE DRIVER ) ) Arrival Mode Ambulatory, Ambulatory, Walker Walker Transfer Assistance None Accompanied by yes Patient Identification Verified (Name & Yes Yes ) Patient Requires Transmission-Based No Precautions Finger Stick Blood Sugar(mg/dl) (if 110 indicated): Blood Sugar Stated by Patient Height and Weight Body Mass Index (BMI) 37.3 37.3 BMI Classification Obese Obese Vital Signs Temperature (97.8 F-99.1 F) 97.8 F 97 F L Temperature Source Temporal Temporal Pulse Rate (60-100) 101 H 99 Pulse Location Monitor Monitor Respiratory Rate (12-18) 18 18 Respiratory rate source Observation Observation Oxygen Delivery Method Room Air Blood Pressure (90/60-120/80) 114/56 L 85/38 L Blood Pressure Mean (mm Hg) 75 53 Source Monitor Monitor Position Sitting Sitting Blood Pressure Location Right Arm Left Arm Comment dialysis pt History Since Last Visit- (Skip if this is Patient's initial visit) Have you changed medications since your No last visit? Any new allergies or adverse reactions No Had a fall/change in ADL's that may No increase risk of falls Signs or symptoms of abuse and/or No neglect since last visit Have you been in the hospital since your No last visit? Has dressing in place as prescribed Yes Yes Has compression in place as prescribed Yes Yes Has offloadiing in place as prescribed No Yes Experienced any changes in pain level or No management Left Footwear Diabetic Shoe Diabetic Shoe Right Footwear Diabetic Shoe Diabetic Shoe Pain Scale: 0-10 Numeric Is Patient Pain Free? Yes WC - Nurse 1 - General Ulcer Measurement Start: 04/13/21 10:27 Freq: Status: Active Protocol: Activity Type Activity Date Activity User E-Sign Co-Sign Detail Recorded Client Recorded Date Recorded By Document 04/13/21 10:27 [id number] 04/13/21 10:41 RB Document 04/27/21 09:58 VT [id number] 04/27/21 10:19 VT 04/13/21 04/27/21 10:27 09:58 Wound Center Nurse 1 #33 right lateral LE -Combined with other wound No -Current Size (cm) - Length 1 5 -Current Size (cm) - Width 1 0.5 -Current Size (cm) - Depth 0.3 0.3 -Total Square Cm 1 2.5 -Tunneling No -Undermining/Tunneling No -Circular Undermining No -Exudate Amt Small Small -Exudate Type Serosanguineous Serosanguineous -Wound Margin Distinct, Flat & Intact Outline Attached -Granulation Amt Medium (34-66%) Large (67-100%) -Granulation Quality [place] Pale -Slough/Fibrin Yes -Necrosis Amt Large (67-100%) Medium (34-66%) -Necrotic Tissue Type Adherent Slough Adherent Slough -Structure Exposed N/A -Texture (Jaylyn-wound Skin Appearance) Assessed Assessed, Localized Edema -Moisture (Jaylyn-wound Skin Appearance) Dry/Scaly Assessed -Color (Jaylyn-wound Skin Appearance) Assessed Assessed -Temperature (Jaylyn-wound Skin No Abnormality No Abnormality Appearance) (Pt Warm) (Pt Warm) -Tenderness on Palpation (Jaylyn-wound No No Skin Appearance) -Ulcer Cleansing Rinsed/ Soap and Water Irrigated with Saline -Foul Odor after Cleansing No No -Anesthetic Used 5% Lidocaine 4% Lidocaine Gel Solution 32. LLE medial -Combined with other wound No -Current Size (cm) - Length 1 0.1 -Current Size (cm) - Width 0.5 0.1 -Current Size (cm) - Depth 0.2 0.1 -Total Square Cm 0.5 0.01 -Tunneling No -Undermining/Tunneling No -Circular Undermining No -Exudate Amt Medium -Exudate Type Serosanguineous -Wound Margin Distinct, Outline Attached -Granulation Amt Medium (34-66%) -Granulation Quality [place] -Slough/Fibrin Yes -Necrosis Amt Medium (34-66%) -Necrotic Tissue Type Adherent Slough -Structure Exposed N/A -Texture (Jaylyn-wound Skin Appearance) Assessed Assessed -Moisture (Jaylyn-wound Skin Appearance) Dry/Scaly Assessed -Color (Jaylyn-wound Skin Appearance) Assessed Assessed -Temperature (Jaylyn-wound Skin No Abnormality No Abnormality Appearance) (Pt Warm) (Pt Warm) -Tenderness on Palpation (Jaylyn-wound No Skin Appearance) -Ulcer Cleansing Wound Cleanser Soap and Water -Foul Odor after Cleansing No No -Anesthetic Used 5% Lidocaine 4% Lidocaine Gel Solution 31. RLE anterior -Combined with other wound No -Current Size (cm) - Length 0.5 0.1 -Current Size (cm) - Width 0.5 0.1 -Current Size (cm) - Depth 0.1 0.1 -Total Square Cm 0.25 0.01 -Tunneling No -Undermining/Tunneling No -Circular Undermining No -Exudate Amt Medium -Exudate Type Serosanguineous -Wound Margin Distinct, Outline Attached -Granulation Amt Medium (34-66%) -Granulation Quality [place] -Slough/Fibrin Yes -Necrosis Amt Medium (34-66%) -Necrotic Tissue Type Adherent Slough -Structure Exposed N/A -Texture (Jaylyn-wound Skin Appearance) Assessed Assessed -Moisture (Jaylyn-wound Skin Appearance) Assessed,Dry/ Assessed Scaly -Color (Jaylyn-wound Skin Appearance) Assessed Assessed -Temperature (Jaylyn-wound Skin No Abnormality No Abnormality Appearance) (Pt Warm) (Pt Warm) -Tenderness on Palpation (Jaylyn-wound No No Skin Appearance) -Ulcer Cleansing Wound Cleanser Soap and Water -Foul Odor after Cleansing No No -Anesthetic Used 5% Lidocaine 4% Lidocaine Gel Solution #30 left luz -Current Size (cm) - Length 0.1 -Current Size (cm) - Width 0.1 -Current Size (cm) - Depth 0.1 -Total Square Cm 0.01 -Tunneling No -Undermining/Tunneling No -Circular Undermining No -Exudate Amt Medium -Exudate Type Serosanguineous -Wound Margin Distinct, Outline Attached -Granulation Amt Medium (34-66%) -Granulation Quality [place] -Slough/Fibrin Yes -Necrosis Amt Medium (34-66%) -Necrotic Tissue Type Adherent Slough -Structure Exposed N/A -Texture (Jaylyn-wound Skin Appearance) Assessed -Moisture (Jaylyn-wound Skin Appearance) Dry/Scaly -Color (Jaylyn-wound Skin Appearance) Assessed -Temperature (Jaylyn-wound Skin No Abnormality Appearance) (Pt Warm) -Tenderness on Palpation (Jaylyn-wound No Skin Appearance) -Ulcer Cleansing Wound Cleanser -Foul Odor after Cleansing No -Anesthetic Used 5% Lidocaine Gel 29-left lateral dorsal foot -Combined with other wound No -Current Size (cm) - Length 1 0.1 -Current Size (cm) - Width 0.7 0.1 -Current Size (cm) - Depth 0.1 0.1 -Total Square Cm 0.7 0.01 -Tunneling No -Undermining/Tunneling No -Circular Undermining No -Exudate Amt Medium -Exudate Type Serosanguineous -Wound Margin Distinct, Outline Attached -Granulation Amt Medium (34-66%) -Granulation Quality [place] -Slough/Fibrin Yes -Necrosis Amt Small (1-33%) -Necrotic Tissue Type Adherent Slough -Structure Exposed N/A -Texture (Jaylyn-wound Skin Appearance) Assessed Assessed -Moisture (Jaylyn-wound Skin Appearance) Dry/Scaly Assessed -Color (Jaylyn-wound Skin Appearance) Assessed Assessed -Temperature (Jaylyn-wound Skin No Abnormality No Abnormality Appearance) (Pt Warm) (Pt Warm) -Tenderness on Palpation (Jaylyn-wound No No Skin Appearance) -Ulcer Cleansing Wound Cleanser Rinsed/ Irrigated with Saline -Foul Odor after Cleansing No No -Anesthetic Used 5% Lidocaine 4% Lidocaine Gel Solution #28 left 2nd, 3rd, 4th toe cluster -Combined with other wound No -Current Size (cm) - Length 0.1 0.5 -Current Size (cm) - Width 0.1 5.1 -Current Size (cm) - Depth 0.1 0.1 -Total Square Cm 0.01 2.55 -Tunneling No -Undermining/Tunneling No -Circular Undermining No -Exudate Amt Medium Small -Exudate Type Serosanguineous Serous -Wound Margin Distinct, Flat & Intact Outline Attached -Granulation Amt Medium (34-66%) Small (1-33%) -Granulation Quality [place] Pale,[place] -Slough/Fibrin Yes -Necrosis Amt Large (67-100%) Large (67-100%) -Necrotic Tissue Type Adherent Slough Adherent Slough -Structure Exposed N/A -Texture (Jaylyn-wound Skin Appearance) Assessed Assessed,Callus -Moisture (Jaylyn-wound Skin Appearance) Dry/Scaly Assessed -Color (Jaylyn-wound Skin Appearance) Assessed Assessed -Temperature (Jaylyn-wound Skin No Abnormality No Abnormality Appearance) (Pt Warm) (Pt Warm) -Tenderness on Palpation (Jaylyn-wound No No Skin Appearance) -Ulcer Cleansing Wound Cleanser Rinsed/ Irrigated with Saline -Foul Odor after Cleansing No No -Anesthetic Used 5% Lidocaine 4% Lidocaine Gel Solution Lower Limb Edema Present Yes Yes Right Calf (cm) 43 43 Right Ankle (cm) 28.4 28.4 Left Calf (cm) 46.5 46.5 Left Ankle (cm) 30.5 30.5 WC - Nurse 2 - General Ulcer CM Notes Start: 04/13/21 10:27 Freq: Status: Active Protocol: Activity Type Activity Date Activity User E-Sign Co-Sign Detail Recorded Client Recorded Date Recorded By Document 04/13/21 11:03 [id number] 04/13/21 11:13 Document 04/27/21 10:41 MW [id number] 04/27/21 10:55 MW 04/13/21 04/27/21 11:03 10:41 Wound Center Nurse 2 #33 right lateral LE -Time 11:04 10:41 -Correct Patient Yes Yes -Correct Side, Site, Position Yes Yes -Correct Procedure Yes Yes -Procedure Performed Yes Yes -Type of Procedure Debridement Debridement -Clinical Debridement Subcutaneous Subcutaneous -Tissue Removed Subcutaneous Subcutaneous -Post Debridement (cm) - Length 1 4.0 -Post Debridement (cm) - Width 1 2.5 -Post Debridement (cm) - Depth 0.2 0.2 -Total Square (Post) (cm) 1 10.00 -Area of Debridement (cm) - Length 1 4.0 -Area of Debridement (cm) - Width 1 2.5 -Total Square (Area) (cm) 1 10.00 -Tunneling No No -Undermining/Tunneling No No -Circular Undermining No No -Wound/Ulcer Outcome Not Healed Not Healed -Ulcer Cleansing Rinsed/ Rinsed/ Irrigated with Irrigated with Saline Saline -Foul Odor after Cleansing No No -Bioengineered Tissue No No -Bleeding Controlled with Pressure Pressure -Offloading No No -Treatment Response Procedure Procedure Tolerated Well Tolerated Well -Debridement - Subq, 1st 20sq cm No Yes 32. LLE medial -Time 11:07 10:42 -Correct Patient Yes Yes -Correct Side, Site, Position Yes Yes -Correct Procedure Yes Yes -Procedure Performed Yes Yes -Type of Procedure Debridement Debridement -Clinical Debridement Subcutaneous Subcutaneous -Tissue Removed Subcutaneous Subcutaneous -Post Debridement (cm) - Length 1 0.5 -Post Debridement (cm) - Width 0.5 0.5 -Post Debridement (cm) - Depth 0.2 0.2 -Total Square (Post) (cm) 0.5 0.25 -Area of Debridement (cm) - Length 1 0.5 -Area of Debridement (cm) - Width 0.5 0.5 -Total Square (Area) (cm) 0.5 0.25 -Tunneling No No -Undermining/Tunneling No No -Circular Undermining No No -Wound/Ulcer Outcome Not Healed Not Healed -Ulcer Cleansing Rinsed/ Rinsed/ Irrigated with Irrigated with Saline Saline -Foul Odor after Cleansing No No -Bioengineered Tissue No No -Bleeding Controlled with Pressure Pressure -Offloading No No -Treatment Response Procedure Procedure Tolerated Well Tolerated Well -Debridement - Subq, 1st 20sq cm No No 31. RLE anterior -Time 11:06 10:42 -Correct Patient Yes Yes -Correct Side, Site, Position Yes Yes -Correct Procedure Yes Yes -Procedure Performed Yes Yes -Type of Procedure Debridement Debridement -Clinical Debridement Subcutaneous Subcutaneous -Tissue Removed Subcutaneous Subcutaneous -Post Debridement (cm) - Length 0.6 0.5 -Post Debridement (cm) - Width 0.5 0.3 -Post Debridement (cm) - Depth 0.1 0.1 -Total Square (Post) (cm) 0.30 0.15 -Area of Debridement (cm) - Length 0.6 0.5 -Area of Debridement (cm) - Width 0.5 0.3 -Total Square (Area) (cm) 0.30 0.15 -Tunneling No No -Undermining/Tunneling No No -Circular Undermining No No -Wound/Ulcer Outcome Not Healed Not Healed -Ulcer Cleansing Rinsed/ Rinsed/ Irrigated with Irrigated with Saline Saline -Foul Odor after Cleansing No No -Bioengineered Tissue No No -Bleeding Controlled with Pressure Pressure -Offloading No No -Treatment Response Procedure Procedure Tolerated Well Tolerated Well -Debridement - Subq, 1st 20sq cm No No #30 left luz -Correct Patient No -Correct Side, Site, Position No -Correct Procedure No -Procedure Performed No -Post Debridement (cm) - Length 0 -Post Debridement (cm) - Width 0 -Post Debridement (cm) - Depth 0 -Total Square (Post) (cm) 0 -Area of Debridement (cm) - Length 0 -Area of Debridement (cm) - Width 0 -Total Square (Area) (cm) 0 -Wound/Ulcer Outcome Healed- Epithelialized 29-left lateral dorsal foot -Time 11:09 10:43 -Correct Patient Yes Yes -Correct Side, Site, Position Yes Yes -Correct Procedure Yes Yes -Procedure Performed Yes Yes -Type of Procedure Debridement Debridement -Clinical Debridement Subcutaneous Subcutaneous -Tissue Removed Subcutaneous Subcutaneous -Post Debridement (cm) - Length 1.0 0.2 -Post Debridement (cm) - Width 0.5 0.3 -Post Debridement (cm) - Depth 0.2 0.1 -Total Square (Post) (cm) 0.50 0.06 -Area of Debridement (cm) - Length 1.0 0.2 -Area of Debridement (cm) - Width 0.5 0.3 -Total Square (Area) (cm) 0.50 0.06 -Tunneling No No -Undermining/Tunneling No No -Circular Undermining No No -Wound/Ulcer Outcome Not Healed Not Healed -Ulcer Cleansing Rinsed/ Rinsed/ Irrigated with Irrigated with Saline Saline -Foul Odor after Cleansing No No -Bioengineered Tissue No No -Bleeding Controlled with Pressure Pressure -Offloading No No -Treatment Response Procedure Procedure Tolerated Well Tolerated Well -Debridement - Subq, 1st 20sq cm No No #28 left 2nd, 3rd, 4th toe cluster -Time 11:10 10:43 -Correct Patient Yes Yes -Correct Side, Site, Position Yes Yes -Correct Procedure Yes Yes -Procedure Performed Yes Yes -Type of Procedure Incision & Debridement Drainage -Clinical Debridement Subcutaneous Subcutaneous -Tissue Removed Subcutaneous Subcutaneous -Post Debridement (cm) - Length 1.5 2.0 -Post Debridement (cm) - Width 2 0.7 -Post Debridement (cm) - Depth 0.2 0.2 -Total Square (Post) (cm) 3.0 1.40 -Area of Debridement (cm) - Length 1.5 2.0 -Area of Debridement (cm) - Width 2.0 0.7 -Total Square (Area) (cm) 3.00 1.40 -Tunneling No No -Undermining/Tunneling No No -Circular Undermining No No -Wound/Ulcer Outcome Not Healed Not Healed -Ulcer Cleansing Rinsed/ Rinsed/ Irrigated with Irrigated with Saline Saline -Foul Odor after Cleansing No No -Bioengineered Tissue No No -Bleeding Controlled with Pressure Pressure -Offloading No No -Treatment Response Procedure Procedure Tolerated Well Tolerated Well -Debridement - Subq, 1st 20sq cm Yes No Pain Scale: 0-10 Numeric Is Patient Pain Free? Yes Yes WC - Nurse 3 - General Ulcer D/C NN Start: 04/13/21 10:27 Freq: Status: Active Protocol: Activity Type Activity Date Activity User E-Sign Co-Sign Detail Recorded Client Recorded Date Recorded By Document 04/13/21 12:35 AK [id number] 04/13/21 12:39 AK Document 04/27/21 11:12 RB [id number] 04/27/21 11:15 RB 04/13/21 04/27/21 12:35 11:12 Wound Care Nurse 3 #33 right lateral LE -Ulcer Cleansing Rinsed/ Irrigated with Saline -Foul Odor after Cleansing No -Negative Pressure Wound Therapy N/A -Primary Dressing [facility] Aquacel AG 4x4 Laura Matter -Primary Dressing Covered/Secured with Dry Gauze,Dry Gauze & Roll Gauze,Secured with Tape -Other Covering Kerlix -Aquacel AG 4x4 1 -Promogran Laura Matter 1 32. LLE medial -Ulcer Cleansing Rinsed/ Irrigated with Saline -Foul Odor after Cleansing No -Negative Pressure Wound Therapy N/A -Primary Dressing Applied Promogran NonAdherent Laura Matter Contact Layer, Promogran Laura Matter -Primary Dressing Covered/Secured with Dry Gauze,Dry Gauze & Roll Gauze,Secured with Tape -Promogran Laura Matter 0 1 31. RLE anterior -Ulcer Cleansing Rinsed/ Irrigated with Saline -Negative Pressure Wound Therapy N/A -Primary Dressing Applied Promogran Laura Matter -Other Dressing aquacel ag -Primary Dressing Covered/Secured with Dry Gauze,Dry Gauze & Roll Gauze,Secured with Tape -Promogran Laura Matter 0 29-left lateral dorsal foot -Ulcer Cleansing Rinsed/ Wound Cleanser Irrigated with Saline -Primary Dressing Applied Promogran NonAdherent Laura Matter Contact Layer -Other Dressing laura -Primary Dressing Covered/Secured with Dry Gauze,Dry Gauze & Roll Gauze,Secured with Tape -Promogran Laura Matter 0 #28 left 2nd, 3rd, 4th toe cluster -Ulcer Cleansing Rinsed/ Wound Cleanser Irrigated with Saline -Primary Dressing Applied Promogran NonAdherent Laura Matter Contact Layer -Other Dressing laura -Primary Dressing Covered/Secured with Dry Gauze,Dry Gauze & Roll Gauze,Secured with Tape -Promogran Laura Matter 0 Right -Compression Wrap Krunal Wrap -Other krunal Left -Compression Wrap Krunal Wrap -Other krunal Treatment Response Procedure Tolerated Well Pain Scale: 0-10 Numeric Is Patient Pain Free? Yes WC - Visit Discharge Discharge Condition Stable Stable Ambulatory Status Wheelchair Ambulatory, Walker Transportation Private Auto Medication Reconcilliation completed & No No provided to patient/care provider Clinical Summary of Care Provided Yes Yes Additional Wound Wound debrided: Right LE anterior Laterality: Right Wound Grade/Stage: Espinoza grade 2 Type of Debridement: Excisional debridement Anesthesia Used: 4% Lidocaine Solution and 5% Lidocaine Gel Depth: Down to and including healthy tissue and in the subcutaneous layer Instrument Used: 5mm curette Tissue Removed: Yellow slough, devitalized tissue Severity: Fat Layer Exposed Amount of bleeding with debridement: Mild Bleeding Controlled with: Compression and gauze Patient tolerated procedure: Patient tolerated procedure well Additional Wound Wound debrided: Left LE medial Laterality: Left Type of Debridement: Excisional debridement Anesthesia Used: 5% Lidocaine Gel Depth: Down to and including healthy tissue and in the subcutaneous layer Percentage of wound debrided: 100 Instrument Used: 5mm curette Tissue Removed: Yellow slough, devitalized tissue Severity: Fat Layer Exposed Amount of bleeding with debridement: Mild Bleeding Controlled with: Compression and gauze Patient tolerated procedure: Patient tolerated procedure well Additional Wound Wound debrided: left 2nd,3rd,4th toe cluster Laterality: Left Wound Grade/Stage: Espinoza grade 2 Type of Debridement: Excisional debridement Anesthesia Used: 4% Lidocaine Solution and 5% Lidocaine Gel Depth: Down to and including healthy tissue and in the subcutaneous layer Percentage of wound debrided: 100 Instrument Used: 5mm curette Tissue Removed: Yellow slough, devitalized tissue Severity: Fat Layer Exposed Amount of bleeding with debridement: Mild Bleeding Controlled with: Compression and gauze Patient tolerated procedure: Patient tolerated procedure well Additional Wound Wound debrided: left lateral dorsal foot Laterality: Left Wound Grade/Stage: Espinoza grade 2 Type of Debridement: Excisional debridement Anesthesia Used: 4% Lidocaine Solution and 5% Lidocaine Gel Depth: Down to and including healthy tissue and in the subcutaneous layer Percentage of wound debrided: 100 Instrument Used: 5mm curette Tissue Removed: Yellow slough, devitalized tissue Severity: Fat Layer Exposed Amount of bleeding with debridement: Mild Bleeding Controlled with: Compression and gauze Patient tolerated procedure: Patient tolerated procedure well Assessment/Plan Assessment/Plan (1) Skin ulcer of fourth toe of left foot with fat layer exposed: CODE(S): L97.522 - Non-pressure chronic ulcer of other part of left foot with fat layer exposed (2) Skin ulcer of third toe of left foot: CODE(S): L97.529 - Non-pressure chronic ulcer of other part of left foot with unspecified severity QUALIFIERS: Non-pressure ulcer stage: with fat layer exposed Qualified Code(s): L97.522 - Non-pressure chronic ulcer of other part of left foot with fat layer exposed (3) Ulcer of left lower extremity with fat layer exposed: CODE(S): L97.922 - Non-pressure chronic ulcer of unspecified part of left lower leg with fat layer exposed (4) Ulcer of left foot: CODE(S): L97.529 - Non-pressure chronic ulcer of other part of left foot with unspecified severity QUALIFIERS: Non-pressure ulcer stage: limited to breakdown of skin Qualified Code(s): L97.521 - Non-pressure chronic ulcer of other part of left foot limited to breakdown of skin (5) Ulcer of right lower extremity with fat layer exposed: CODE(S): L97.912 - Non-pressure chronic ulcer of unspecified part of right lower leg with fat layer exposed (6) HERNÁN (obstructive sleep apnea): CODE(S): G47.33 - Obstructive sleep apnea (adult) (pediatric) (7) Obesity: CODE(S): E66.9 - Obesity, unspecified QUALIFIERS: Obesity type: unspecified obesity type Obesity classification: adult class 2 (BMI 35 - 39.9) Serious obesity comorbidity presence: with serious comorbidity Body mass index: BMI 37.0-37.9 Qualified Code(s): E66.01 - Morbid (severe) obesity due to excess calories; Z68.37 - Body mass index [BMI] 37.0-37.9, adult (8) Chronic acquired lymphedema: CODE(S): I89.0 - Lymphedema, not elsewhere classified (9) Venous stasis dermatitis: CODE(S): I87.2 - Venous insufficiency (chronic) (peripheral) QUALIFIERS: Laterality: bilateral Qualified Code(s): I87.2 - Venous insufficiency (chronic) (peripheral) (10) Stage 3 severe COPD by GOLD classification: CODE(S): J44.9 - Chronic obstructive pulmonary disease, unspecified (11) Lymphedema of both lower extremities: CODE(S): I89.0 - Lymphedema, not elsewhere classified (12) Chronic kidney disease with end stage 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: CODE(S): N18.6 - End stage renal disease; Z99.2 - Dependence on renal dialysis (13) Essential hypertension: CODE(S): I10 - Essential (primary) hypertension (14) Type 2 diabetes mellitus: CODE(S): E11.9 - Type 2 diabetes mellitus without complications QUALIFIERS: Diabetes mellitus complication status: with kidney complications Diabetes mellitus complication detail: with chronic kidney disease Diabetes mellitus salvage determiner insulin use: with salvage determiner use Chronic kidney disease stage: on chronic dialysis Qualified Code(s): E11.22 - Type 2 diabetes mellitus with diabetic chronic kidney disease; N18.6 - End stage renal disease; Z79.4 - shelter (current) use of insulin; Z99.2 - Dependence on renal dialysis PLAN: Mr. Russell's legs have lymphedema and chronic stasis dermatitis. The ulcers of his left plantar foot remain healed. His other ulcers of his left toes are healing. Will dress his left toe ulcers with Promogran covered with adaptic M,W,F for moderate drainage. His left lateral foot will be dressed with Promogran with adaptic M,W,F. Left luz ulcer will also be treated with Promogran with adaptic. Right anterior LE and right lateral LE will be dressed with Aquacel Ag. His recent labs have been reviewed. Encouraged adequate protein intake. Venous studies show resolution of his DVT. Arterial studies show no significant disease. He was advised to use zinc oxide or triamcinolone cream to his legs once daily to help with his dermatitis. Will plan on returning to maintenance control of his edema with KRUNAL wraps. He was advised to use his compression pumps twice daily and be vigilant with elevating his legs to avoid worsening of his edema which causes the cellulitis and ulcers. Call with worsening pain, drainage or odor. F/U in 3 weeks.
== END 2021-05-11 23:59 ==
LOC: WC 10:00
PROVIDERS: PCP Family Medicine; Referring Provider Family Medicine; Visit Provider Family Medicine
DX: E11.621 Type 2 diabetes mellitus with foot ulcer (principal); G47.33 Obstructive sleep apnea (adult) (pediatric); L03.116 Cellulitis of left lower limb; R60.0 Localized edema; R21 Rash and other nonspecific skin eruption; R23.3 Spontaneous ecchymoses; L97.822 Non-pressure chronic ulcer of other part of left lower leg with fat layer exposed; L97.812 Non-pressure chronic ulcer of other part of right lower leg with fat layer exposed; E11.622 Type 2 diabetes mellitus with other skin ulcer; I87.2 Venous insufficiency (chronic) (peripheral); I89.0 Lymphedema, not elsewhere classified; E66.01 Morbid (severe) obesity due to excess calories; Z68.37 Body mass index [BMI] 37.0-37.9, adult; I12.0 Hypertensive chronic kidney disease with stage 5 chronic kidney disease or end stage renal disease; Z99.2 Dependence on renal dialysis; E11.22 Type 2 diabetes mellitus with diabetic chronic kidney disease; Z79.4 Long term (current) use of insulin; J44.9 Chronic obstructive pulmonary disease, unspecified
CPT/HCPCS: 11042; 87070; 87075; 87077; 87186; 87205

== ENCOUNTER 2021-04-30 05:22 | Day surgery (SDC) | payer MEDICARE, OTHER, SELFPAY ==
[2021-04-30] VITALS (11 sets, daily range): BP systolic 71–92; BP diastolic 34–53; PULSE 89–102; RESP 14–16; TEMP 36.2–36.3; O2SAT 96–100; BMI 36.6
--- NOTE | 2021-04-30 05:59 | PCM.HP.BLA ---
History and Physical Date of Admission: 04/30/21 Intake Visit Reasons: Blood in stool Chief Complaint: blood in stool Heat Treat Inspector Required: No Is patient in pain?: No Allergies No Known Allergies Allergy (Verified 04/04/21 14:19) Medications ascorbic acid (vitamin C) 500 mg PO DAILY 03/08/17 [History Confirmed 04/04/21] allopurinol 300 mg tablet 300 mg PO DAILY 08/23/19 [History Confirmed 04/04/21] cholecalciferol (vitamin D3) 125 mcg (5,000 unit) capsule 125 mcg PO DAILY 08/23/19 [History Confirmed 04/04/21] cyanocobalamin (vitamin B-12) 1,000 mcg capsule 1,000 mcg PO DAILY 08/24/19 [History Confirmed 04/04/21] omega-3 fatty acids 1,000 mg capsule 1,000 mg PO DAILY 08/24/19 [History Confirmed 04/04/21] simvastatin 40 mg PO QHS 10/06/19 [History Confirmed 04/04/21] geriatric uosmvekg-raam-qjoz 1 ea PO DAILY 04/28/20 [History Confirmed 04/04/21] magnesium oxide 500 mg PO DAILY 05/10/20 [History Confirmed 04/04/21] calcium acetate 667 mg tablet 667 mg PO TID tab 10/04/20 [History Confirmed 04/04/21] midodrine 5 mg tablet 5 mg PO TID tab 10/04/20 [History Confirmed 04/04/21] vitamin B comp no.3-folic acid 1 mg-vit C 60 mg-biotin 300 mcg tablet 1 tab PO DAILY 10/04/20 [History Confirmed 04/04/21] vitamin B12 0.5 mg-folic acid 1 mg tablet 1 tab PO DAILY 10/04/20 [History Confirmed 04/04/21] Triamcinolone 0.1% Cream [Kenalog] 1 applic TOPICAL DAILY #454 gm 12/01/20 [Rx Confirmed 04/04/21] levofloxacin See Rx Instructions .ROUTE .COMPLEX #6 tab 12/01/20 [Rx Confirmed 04/04/21] triamcinolone acetonide 1 applic TOPICAL DAILY #454 g 12/01/20 [Rx Confirmed 04/04/21] [facility] Medical History (Updated 04/04/21 @ 15:34 by Janine PALOMO, PANathanielC) Cardiac murmur Chronic kidney disease Chronic kidney disease with end stage 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 Diabetic neuropathy DRUJ (distal radioulnar joint) arthrosis, primary Essential hypertension Gout Heme positive stool Hyperlipidemia Hypertension Hyperuricemia Iron deficiency anemia Primary arthrosis of left distal radioulnar joint Problem with dialysis access Type 2 diabetes mellitus Vascular dialysis catheter in place Surgical History S/P arteriovenous (AV) fistula creation S/P colonoscopy S/P dialysis catheter insertion s/p transposition left forearm AV Fistula (~05/17/20) Status post tonsillectomy Family History Mother Cancer Ovarian Father Hypertension Social History Smoking Status: Never smoker alcohol intake: never substance use type: does not use HPI HPI HPI: GREGORIA RAMIREZ, is a 71 M who presents to the office today for heme positive stools. Patient denies tejal melena or bright red blood per rectum. He notes intermittent abdominal pain. He denies any change in bowel habits. He notes taking Metamucil and occasional Pepto-Bismol. He notes occasional upset stomach. he denies reflux symptoms or heartburn. He had submitted a stool specimen through his family physician which returned positive for occult blood. Patient denies family history of colon cancer. He notes he has been losing weight over the last year. Per patient, he states almost 100 pounds. His sister is also involved during this appointment via speaker phone as she is in [place]. Patient is on dialysis on , and Sat via fistula. Patient was very drowsy during his appointment due to he had dialysis that morning. ROS General General: Yes weight change and fatigue; No appetite, colon cancer, breast cancer or weakness HEENT HEENT: No difficulty swallowing, eye injury, eye surgery, swollen glands or hoarseness Endo Endocrine: Yes diabetes mellitus; No thyroid disease, thyroid cancer, Hair loss, heat intolerance or cold intolerance Musc Musculoskeletal: Yes arthritis, rheumatoid arthritis and gout; No back problems or joint pain Cardio Cardiovascular: Yes murmur, heart disease and high blood pressure; No pacemaker, atrial fibrillation, heart attack, heart stent, palpitations, shortness of breat with exertion or chest pain Psych Psychiatric: No depression, anxiety or hearing voices Resp Respiratory: Yes shortness of breath, Yes sleep apnea, No cough, No COPD, No asthma, No emphysema and No wheezing Gastro Gastrointestinal: No abdominal pain, Yes nausea or vomiting, No diarrhea, No constipation, No blood in stool, No acid reflux, No hemorrhoids, No ulcers, No gallbladder problem and Yes black,tarry stools Mitul Hematologic: No blood thinners, No blood disorders, No bleeding, Yes anemia and No blood clots Neuro Neurologic: No weakness Exam Const General: cooperative, healthy appearing, comfortable, no acute distress and lethargic Other: Presents in a wheel chair [facility] Head: normal to inspection Eyes General: appearance normal, both eyes and all related structures Neck Neck: normal visual inspection Neck mass: No Resp Effort & Inspection: normal respiratory effort Auscultation: clear to auscultation bilaterally Cardio Rate: regular rate Rhythm: regular rhythm GI Inspection: normal to inspection, large pannus and obesity Palpation: soft Auscultation: normal bowel sounds Skin General: no rashes or lesions noted Neuro General: no focal motor deficits and CN's II-XI intact bilaterally Extrem General: normal to inspection Psych Appearance: grossly normal Affect: normal affect COVID (Procedure Consent) Procedure Criteria Procedure Criteria: Yes Elective The surgeon/proceduralist and patient have discussed in detail the risk of exposure to and/or potential harm posed by the COVID-19 virus with having a surgery/procedure at this time versus the risk of delaying the surgery/procedure. It is not possible to know either the risk of delaying the surgery or procedure or chance of getting an infection with perfect accuracy, but a joint decision was made between the patient and the surgeon/proceduralist to proceed at this time with the scheduled surgery/procedure as indicated on the consent form. Assessment and Plan Assessment and Plan (1) Heme positive stool: Status: Acute Plan - Janine PALOMO PANathanielC: Dr. Galloway will plan to perform an upper and lower scope with possible biopsies. Procedure details, risks and benefits have been explained to the patient. Patient will hold fish oil for 7 days prior to the procedure. Patient's sister and patient have had the opportunity to ask and have questions answered. Patient verbally understands and agrees with the plan. Miralax prep instructions and EGD instructions were provided to the patient. I have re-examined the patient. There are no clinical changes since date of exam. José Galloway M.D., F.A.C.S.
--- NOTE | 2021-04-30 06:30 | EGD_PTH ---
PATIENT: GREGORIA RAMIREZ LOC: EN U#:[id number] AGE/SX: 71/M ROOM: RE04/30/[address]: Dr. José Galloway MD : 1950 BED: DIS: 04/30/2021 SPEC #: [id number] RECD: 04/30/21 10:37 STATUS: RACHEL ABBASI #: [id number] SANDOVAL: 04/30/21 06:[address]: José Galloway DEPT: SURGICAL PATHOLOGY RECD BY: Ida Espinoza ENTERED: 04/30/21 11:21 SP TYPE: EGD BIOPSY OT DR: Dr. Han Adrian MD Tissues: A - Duodenum, NOS B - Gastric mucous membrane C - Stomach, NOS D - Cecum, NOS Procedures: Special Stain Group II Surgery Specimen Level IV Alcian Blue/PAS (control) HEADER OPERATION: Colonoscopy, EGD ([facility] [place]) PRE-OP DIAGNOSIS: Heme-positive stool TISSUE SUBMITTED: A ? Duodenum biopsy, B ? Antrum biopsy for H. pylori and path, C ? GE junction biopsy, D ? Cecal biopsy MICROSCOPIC DIAGNOSIS A. Duodenum, biopsy: Gastric metaplasia and focal adenomatous change. B. Gastric antrum, biopsy: Chronic gastritis. See comment. C. Gastroesophageal junction, biopsy: Mild chronic inflammation. No evidence of goblet cell metaplasia. See comment. D. Cecal polyp, biopsy: Tubular adenoma. AM:nery 05/01/2021 COMMENT B. The results of immunohistochemistry for Helicobacter pylori will be reported separately ([id number]). C. Alcian blue/PAS stain with matched control supports the above diagnosis. MICROSCOPIC DESCRIPTION Slides are reviewed. GROSS DESCRIPTION A - Received in fixative is one container labeled with the patient's name and designated duodenum biopsy. The specimen consists of multiple irregular fragments of light joseph soft tissue that in aggregate measure 1 x 0.5 x 0.1 cm. The specimen is totally submitted in one cassette. B - Received in fixative is one container labeled with the patient's name and designated antrum biopsy. The specimen consists of one irregular fragment of light joseph soft tissue that measures 0.6 x 0.5 x 0.1 cm. The specimen is totally submitted in one cassette. C - Received in fixative is one container labeled with the patient's name and designated GE junction. The specimen consists of multiple irregular fragments of light joseph soft tissue that in aggregate measure 1 x 0.3 x 0.1 cm. The specimen is totally submitted in one cassette. D - Received in fixative is one container labeled with the patient's name and designated cecal biopsy. The specimen consists of two irregular fragments of light joseph soft tissue that in aggregate measure 0.8 x 0.6 x 0.1 cm. The specimen is totally submitted in one cassette. / AM:nery 04/30/21 TC:3 CPT: 79394 x4
--- NOTE | 2021-04-30 06:30 | IMM_PTH ---
PATIENT: GREGORIA RAMIREZ LOC: VEE U#:[id number] AGE/SX: 71/M ROOM: RE04/30/[address]: Dr. José Galloway MD : 1950 BED: DIS: 04/30/2021 SPEC #: [id number] RECD: 04/30/21 11:59 STATUS: RACHEL REQ #: [id number] SANDOVAL: 04/30/21 06:[address]: José Galloway DEPT: IMMUNOHISTOCHEMISTRY RECD BY: Rylee Allen ENTERED: 04/30/21 12:00 SP TYPE: IMMUNO OTHR DR: Dr. Han Adrian MD Tissues: B - Stomach, NOS Procedures: H Pylori (initial) PHYSICIAN & INSTITUTION [place] [id number] SPECIMEN INFORMATION: Tissue Source: B ? Antrum biopsy Clinical Info: Heme-positive stool Specimen Number: [id number] CPT code: 82789 METHODOLOGY: Deparaffinized sections of prefer/formalin-fixed tissue or PAP/DQ stained slides are incubated with monoclonal/polyclonal antibodies/oligonucleotide probes. Localization is made via biotin free immunoperoxidase method. Appropriate controls are performed and reacted as expected. Results on target cell population are indicated in the following table: RESULTS: ANTIBODY / CLONE RESULT Block B H Pylori (polyclonal) negative These tests were developed and their performance characteristics determined by [facility]. They may not have been cleared or approved by the U.S. Food and Drug Administration. The FDA has determined that such clearance or approval is not necessary. INTERPRETATION: B. Antrum biopsy: Negative for Helicobacter pylori organisms. AM:nery 05/01/2021
--- NOTE | 2021-04-30 07:14 | OP.CCLET_ITS ---
04/30/2021 Han Adrian Re : Upper GI endoscopy procedure for Brenton Ballesteros Kaylah This procedure was performed on Friday, April 30, 2021. My impressions and recommendations are as follows: Impressions : - LA Grade A reflux esophagitis. Biopsied. - Small hiatal hernia. - Chronic gastritis. Biopsied. - Nodular mucosa in the second portion of the duodenum. Biopsied. Recommendations : - Discharge patient to home. - Resume previous diet. - Continue present medications. - Use Prilosec (omeprazole) 20 mg PO daily. - Telephone my office for pathology results in 1 week. My findings are described in the full procedure note, which is enclosed. If I can be of further assistance, please feel free to contact me at Doctor phone number(s): Work: . Sincerely, José Galloway MD 04/30/2021 7:13:38 AM This report has been signed electronically.
--- NOTE | 2021-04-30 07:14 | OP.EGD_ITS ---
Patient Name: Brenton Russell Procedure Date: 04/30/2021 6:22 AM Date of : 1950 Age: 71 Procedure: Upper GI endoscopy Indications: Hemocult positive stool Providers: José Galloway MD Medicines: See the Anesthesia note for documentation of the administered medications Complications: No immediate complications. Procedure: Pre-Anesthesia Assessment: - Prior to the procedure, a History and Physical was performed, and patient medications and allergies were reviewed. The patient's tolerance of previous anesthesia was also reviewed. The risks and benefits of the procedure and the sedation options and risks were discussed with the patient. All questions were answered, and informed consent was obtained. Prior Anticoagulants: The patient has taken no previous anticoagulant or antiplatelet agents. ASA Grade Assessment: III - A patient with severe systemic disease. After reviewing the risks and benefits, the patient was deemed in satisfactory condition to undergo the procedure. After obtaining informed consent, the endoscope was passed under direct vision. Throughout the procedure, the patient's blood pressure, pulse, and oxygen saturations were monitored continuously. The gastroscope was introduced through the mouth, and advanced to the second part of duodenum. The upper GI endoscopy was accomplished without difficulty. The patient tolerated the procedure well. Scope In: 6:40:03 AM Scope Out: 6:45:54 AM Total Procedure Duration Time 0 hours 5 minutes 51 seconds Findings: LA Grade A (one or more mucosal breaks less than 5 mm, not extending between tops of 2 mucosal folds) esophagitis with no bleeding was found 41 cm from the incisors. Biopsies were taken with a cold forceps for histology. A small hiatal hernia was present. Localized moderate inflammation characterized by erythema was found in the gastric antrum. Biopsies were taken with a cold forceps for histology. Diffuse nodular mucosa was found in the first portion of the duodenum and in the second portion of the duodenum. Biopsies were taken with a cold forceps for histology. Impression: - LA Grade A reflux esophagitis. Biopsied. - Small hiatal hernia. - Chronic gastritis. Biopsied. - Nodular mucosa in the second portion of the duodenum. Biopsied. Recommendation: - Discharge patient to home. - Resume previous diet. - Continue present medications. - Use Prilosec (omeprazole) 20 mg PO daily. - Telephone my office for pathology results in 1 week. Procedure Code(s): --- Professional --- 25627, Esophagogastroduodenoscopy, flexible, transoral; with biopsy, single or multiple Diagnosis Code(s): --- Professional --- K21.0, Gastro-esophageal reflux disease with esophagitis K44.9, Diaphragmatic hernia without obstruction or gangrene K29.50, Unspecified chronic gastritis without bleeding K31.89, Other diseases of stomach and duodenum CPT copyright 2017 [employer]. All rights reserved. The codes documented in this report are preliminary and upon certified medical records coder review may be revised to meet current compliance requirements. José Galloway MD 04/30/2021 7:13:38 AM This report has been signed electronically. Number of Addenda: 0 Note Initiated On: 04/30/2021 6:22 AM
--- NOTE | 2021-04-30 07:20 | OP.COLON_ITS ---
Patient Name: Brenton Russell Procedure Date: 04/30/2021 6:47 AM Date of : 1950 Age: 71 Procedure: Colonoscopy Indications: Heme positive stool Providers: José Galloway MD Medicines: See the Anesthesia note for documentation of the administered medications Patient Profile: Last Colonoscopy: date unknown. Complications: No immediate complications. Procedure: Pre-Anesthesia Assessment: - Prior to the procedure, a History and Physical was performed, and patient medications and allergies were reviewed. The patient's tolerance of previous anesthesia was also reviewed. The risks and benefits of the procedure and the sedation options and risks were discussed with the patient. All questions were answered, and informed consent was obtained. Prior Anticoagulants: The patient has taken no previous anticoagulant or antiplatelet agents. ASA Grade Assessment: III - A patient with severe systemic disease. After reviewing the risks and benefits, the patient was deemed in satisfactory condition to undergo the procedure. After I obtained informed consent, the scope was passed under direct vision. Throughout the procedure, the patient's blood pressure, pulse, and oxygen saturations were monitored continuously. The colonoscope was introduced through the anus and advanced to the cecum, identified by appendiceal orifice and ileocecal valve. The colonoscopy was somewhat difficult due to a tortuous colon. Successful completion of the procedure was aided by applying abdominal pressure. The patient tolerated the procedure well. The quality of the bowel preparation was good. The ileocecal valve and the appendiceal orifice were photographed. Scope In: 6:49:05 AM Scope Withdrawal Time 0 hours 7 minutes 14 seconds Scope Out: 7:05:49 AM Total Procedure Duration Time 0 hours 16 minutes 44 seconds Findings: The digital rectal exam findings include decreased sphincter tone, non-thrombosed internal hemorrhoids, internal hemorrhoids that prolapse with straining, but require manual replacement into the anal canal (Grade III) and enlarged prostate. A diffuse area of mildly erythematous mucosa was found in the cecum. Biopsies were taken with a cold forceps for histology. A localized area of mildly friable mucosa with contact bleeding was found in the proximal sigmoid colon. Scattered diverticula were found in the sigmoid colon. Impression: - Decreased sphincter tone, non-thrombosed internal hemorrhoids, internal hemorrhoids that prolapse with straining, but require manual replacement into the anal canal (Grade III) and enlarged prostate found on digital rectal exam. - Erythematous mucosa in the cecum. Biopsied. - Friability with contact bleeding in the proximal sigmoid colon. - Diverticulosis in the sigmoid colon. Recommendation: - Discharge patient to home. - Resume previous diet. - Continue present medications. - Repeat colonoscopy is not recommended due to current age (66 years or older) for screening purposes. - Telephone my office for pathology results in 1 week. Irritable cecum or contact bleeding of the colon or internal and external hemorrhoids with plaques [place] all could be source for Hemoccult positive stool. Upper endoscopy of today also demonstrates duodenitis and gastritis and esophagitis of which could be etiologic as well. Omeprazole has been prescribed for the upper findings. Procedure Code(s): --- Professional --- 54467, Colonoscopy, flexible; with biopsy, single or multiple Diagnosis Code(s): --- Professional --- K62.89, Other specified diseases of anus and rectum N40.0, Benign prostatic hyperplasia without lower urinary tract symptoms K63.89, Other specified diseases of intestine K92.2, Gastrointestinal hemorrhage, unspecified K64.2, Third degree hemorrhoids R19.5, Other fecal abnormalities K57.30, Diverticulosis of large intestine without perforation or abscess without bleeding CPT copyright 2017 [employer]. All rights reserved. The codes documented in this report are preliminary and upon bag making machine operator review may be revised to meet current compliance requirements. José Galloway MD 04/30/2021 7:19:45 AM This report has been signed electronically. Number of Addenda: 0 Note Initiated On: 04/30/2021 6:47 AM
--- NOTE | 2021-04-30 07:20 | OP.CCLET_ITS ---
04/30/2021 Han Adrian Re : Colonoscopy procedure for Brenton Adrian This procedure was performed on Friday, April 30, 2021. My impressions and recommendations are as follows: Impressions : - Decreased sphincter tone, non-thrombosed internal hemorrhoids, internal hemorrhoids that prolapse with straining, but require manual replacement into the anal canal (Grade III) and enlarged prostate found on digital rectal exam. - Erythematous mucosa in the cecum. Biopsied. - Friability with contact bleeding in the proximal sigmoid colon. - Diverticulosis in the sigmoid colon. Recommendations : - Discharge patient to home. - Resume previous diet. - Continue present medications. - Repeat colonoscopy is not recommended due to current age (66 years or older) for screening purposes. - Telephone my office for pathology results in 1 week. Irritable cecum or contact bleeding of the colon or internal and external hemorrhoids with plaques [place] all could be source for Hemoccult positive stool. Upper endoscopy of today also demonstrates duodenitis and gastritis and esophagitis of which could be etiologic as well. Omeprazole has been prescribed for the upper findings. My findings are described in the full procedure note, which is enclosed. If I can be of further assistance, please feel free to contact me at Doctor phone number(s): Work: . Sincerely, José Galloway MD 04/30/2021 7:19:45 AM This report has been signed electronically.
== END 2021-04-30 08:30 | disposition home or self-care (01) ==
LOC: EN 05:23 → AC 05:24
PROVIDERS: PCP Family Medicine; Referring Provider Family Medicine; Visit Provider Surgery
PROC: 0DJD8ZZ Inspection of Lower Intestinal Tract, Via Natural or Artificial Opening Endoscopic (ICD-10-PCS; CPT 45378; principal; 2021-04-30 06:25)
DX: K21.00 Gastro-esophageal reflux disease with esophagitis, without bleeding (principal); K31.A0 Gastric intestinal metaplasia, unspecified; K29.50 Unspecified chronic gastritis without bleeding; K29.80 Duodenitis without bleeding; K44.9 Diaphragmatic hernia without obstruction or gangrene; D12.0 Benign neoplasm of cecum; K64.2 Third degree hemorrhoids; K57.30 Diverticulosis of large intestine without perforation or abscess without bleeding; N40.0 Benign prostatic hyperplasia without lower urinary tract symptoms; R19.5 Other fecal abnormalities; I13.2 Hypertensive heart and chronic kidney disease with heart failure and with stage 5 chronic kidney disease, or end stage renal disease; N18.6 End stage renal disease; I50.9 Heart failure, unspecified; D63.1 Anemia in chronic kidney disease; I45.2 Bifascicular block; J96.10 Chronic respiratory failure, unspecified whether with hypoxia or hypercapnia; J44.9 Chronic obstructive pulmonary disease, unspecified; E66.9 Obesity, unspecified; E78.5 Hyperlipidemia, unspecified; E78.00 Pure hypercholesterolemia, unspecified; M10.9 Gout, unspecified; G47.33 Obstructive sleep apnea (adult) (pediatric); Z68.36 Body mass index [BMI] 36.0-36.9, adult; Z99.2 Dependence on renal dialysis; Z99.81 Dependence on supplemental oxygen; Z79.899 Other long term (current) drug therapy
CPT/HCPCS: 43239; 45380; 88305; 88313; 88342; J7040; J2405

== ENCOUNTER 2021-06-08 10:00 | Outpatient (RCR) | payer MEDICARE, OTHER, SELFPAY ==
[2021-05-12 00:25] VITALS: BP 85/38; PULSE 99; RESP 18; TEMP 36.1; BMI 37.3
[2021-05-18 10:01] VITALS: BP 86/35; PULSE 99; RESP 18; TEMP 36.2; BMI 37.3
--- NOTE | 2021-05-18 15:05 | PN.PCM_ITS ---
History of Present Illness Date of Service: 05/18/21 Chief Complaint: left lower extremity ulcer, cellulitis and edema b/l LE History of Wound: Mr. Russell is a 70 yo gentelman well-known to the wound center who presents due to new (recurrent) left lower extremity ulcer. Said to have started about a week ago. He initially noted increased fluid drainage and increased swelling and then erythema. His HH nurse was concerned regarding the appearance of the left lateral leg and it began draining more and his dialysis nurses were also concerned. He also has petechial appearing spots on his toes, and feet b/l but none of his upper extremities or more proximally. Denies chills, fever or otherwise feeling of unwell. He is on chronic dialysis and uses compression pumps to manage his edema. He recently underwent surgery for fistula placement for dialysis. He reports that his edema has been better than it has been in the past but has had scaling and drainage to his skin which had resolved when he was using UNNA boots when he was here last. He applies Eucerin, zinc oxide to his legs but this has not helped the scaling recently of his left leg. His left leg remains more swollen than his right and has significant keratosis. Subjective Subjective His left lateral LE ulcer remains healed. The left lateral foot is healed. There are several ulcers of his left dorsal 2,3,4th toes which are still present but are improved. He tolerated treatment with Laura. The new ulcer of his left luz is improving. He underwent arterial testing November 2020 and it showed mild PAD at the level of his ankles. The ulcer of his right leg is improving. His edema is worse today compared to previous. He hasn't been faithful with Circaids. He denies fever or chills, increased erythema or drainage. He completed antibiotic treatment. Objective Data Objective Data Vital Signs: Vital Signs Temp Pulse Resp BP 97.1 F L 99 18 86/35 L 05/18/21 10:05/18/21 10:05/18/21 10:05/18/21 10:01 Weight: 117.934 kg Body Mass Index (BMI) 37.3 Physical Exam Const alert, oriented x3 and no apparent distress General Appearance: cooperative and comfortable HEENT normocephalic and head/scalp atraumatic Head and Scalp: normal to inspection and normocephalic Lymph Lymphatic: lymphedema Resp normal respiratory effort Effort and Inspection: able to speak in complete sentences Skin General Skin Exam: venous stasis Wounds: wounds noted Wound Narrative: as noted in clinical panel Psych mental status grossly normal and thought process normal Debridement Note Debridement Note Wound debrided: right lateral LE Laterality: Right Type of Debridement: Excisional debridement Anesthesia Used: 4% Lidocaine Solution Depth: Down to and including healthy tissue and in the subcutaneous layer Percentage of wound debrided: 100 Instrument Used: 5mm curette Tissue Removed: Yellow slough, devitalized tissue Severity: Fat Layer Exposed Amount of bleeding with debridement: Mild Bleeding Controlled with: Compression and gauze Patient tolerated procedure: Patient tolerated procedure well Post-Debridement Measurements and Additional Note: Post-Debridement Measurements/Treatment - Nurse 1 - General Ulcer Assessment Start: 05/18/21 10:01 Freq: Status: Active Protocol: JATIN Activity Type Activity Date Activity User E-Sign Co-Sign Detail Recorded Client Recorded Date Recorded By Document 05/18/21 10:01 ISMAEL [id number] 05/18/21 10:14 ISMAEL 05/18/21 10:01 - Today's Visit Information Type of service Follow-up Visit (Physician/MOLECULAR BIOLOGY DIRECTOR ) Arrival Mode Ambulatory Transfer Assistance None Patient Identification Verified (Name & Yes ) Height and Weight Body Mass Index (BMI) 37.3 BMI Classification Obese Vital Signs Temperature (97.8 F-99.1 F) 97.1 F L Temperature Source Temporal Pulse Rate (60-100) 99 Pulse Location Monitor Respiratory Rate (12-18) 18 Respiratory rate source Observation Blood Pressure (90/60-120/80) 86/35 L Blood Pressure Mean (mm Hg) 52 Source Monitor Position Semi-Fowlers Blood Pressure Location Left Arm History Since Last Visit- (Skip if this is Patient's initial visit) Have you changed medications since your No last visit? Any new allergies or adverse reactions No Had a fall/change in ADL's that may No increase risk of falls Signs or symptoms of abuse and/or No neglect since last visit Have you been in the hospital since your No last visit? Has dressing in place as prescribed Yes Has compression in place as prescribed Yes Has offloadiing in place as prescribed No Experienced any changes in pain level or No management Left Footwear Diabetic Shoe Right Footwear Diabetic Shoe Pain Scale: 0-10 Numeric Is Patient Pain Free? Yes - Nurse 1 - General Ulcer Measurement Start: 05/18/21 10:01 Freq: Status: Active Protocol: Activity Type Activity Date Activity User E-Sign Co-Sign Detail Recorded Client Recorded Date Recorded By Document 05/18/21 10:01 ISMAEL [id number] 05/18/21 10:14 ISMAEL 05/18/21 10:01 Wound Center Nurse 1 #33 right lateral LE -Combined with other wound No -Current Size (cm) - Length 3 -Current Size (cm) - Width 2.3 -Current Size (cm) - Depth 0.3 -Total Square Cm 6.9 -Tunneling No -Undermining/Tunneling No -Circular Undermining No -Exudate Amt Medium -Exudate Type Serosanguineous -Wound Margin Distinct, Outline Attached -Granulation Amt Medium (34-66%) -Granulation Quality [place] -Slough/Fibrin Yes -Necrosis Amt Medium (34-66%) -Necrotic Tissue Type Adherent Slough -Structure Exposed N/A -Texture (Jaylyn-wound Skin Appearance) Assessed, Localized Edema -Moisture (Jaylyn-wound Skin Appearance) Dry/Scaly -Color (Jaylyn-wound Skin Appearance) Assessed -Temperature (Jaylyn-wound Skin No Abnormality Appearance) (Pt Warm) -Tenderness on Palpation (Jaylyn-wound No Skin Appearance) -Ulcer Cleansing Wound Cleanser -Foul Odor after Cleansing No -Anesthetic Used 5% Lidocaine Gel 32. LLE medial -Combined with other wound No -Current Size (cm) - Length 0.5 -Current Size (cm) - Width 0.5 -Current Size (cm) - Depth 0.3 -Total Square Cm 0.25 -Tunneling No -Undermining/Tunneling No -Circular Undermining No -Exudate Amt Medium -Exudate Type Serosanguineous -Wound Margin Distinct, Outline Attached -Granulation Amt Medium (34-66%) -Granulation Quality [place] -Slough/Fibrin Yes -Necrosis Amt Small (1-33%) -Necrotic Tissue Type Adherent Slough -Structure Exposed N/A -Texture (Jaylyn-wound Skin Appearance) Assessed -Moisture (Jaylyn-wound Skin Appearance) Dry/Scaly -Color (Jaylyn-wound Skin Appearance) Assessed -Temperature (Jaylyn-wound Skin No Abnormality Appearance) (Pt Warm) -Tenderness on Palpation (Jaylyn-wound No Skin Appearance) -Ulcer Cleansing Wound Cleanser -Foul Odor after Cleansing Yes, Due to Product Use -Anesthetic Used 5% Lidocaine Gel 31. RLE anterior -Combined with other wound No -Current Size (cm) - Length 0.1 -Current Size (cm) - Width 0.1 -Current Size (cm) - Depth 0.1 -Total Square Cm 0.01 -Tunneling No -Undermining/Tunneling No -Circular Undermining No -Exudate Amt Small -Exudate Type Serosanguineous -Wound Margin Distinct, Outline Attached -Granulation Amt Medium (34-66%) -Granulation Quality [place] -Slough/Fibrin Yes -Necrosis Amt Medium (34-66%) -Necrotic Tissue Type Adherent Slough -Structure Exposed N/A -Texture (Jaylyn-wound Skin Appearance) Assessed -Moisture (Jaylyn-wound Skin Appearance) Assessed,Dry/ Scaly -Color (Jaylyn-wound Skin Appearance) Assessed -Temperature (Jaylyn-wound Skin No Abnormality Appearance) (Pt Warm) -Tenderness on Palpation (Jaylyn-wound No Skin Appearance) -Ulcer Cleansing Wound Cleanser -Foul Odor after Cleansing No -Anesthetic Used 5% Lidocaine Gel 29-left lateral dorsal foot -Combined with other wound No -Current Size (cm) - Length 0.1 -Current Size (cm) - Width 0.1 -Current Size (cm) - Depth 0.1 -Total Square Cm 0.01 -Tunneling No -Undermining/Tunneling No -Circular Undermining No -Exudate Amt Small -Exudate Type Serosanguineous -Wound Margin Distinct, Outline Attached -Granulation Amt Medium (34-66%) -Granulation Quality [place] -Slough/Fibrin Yes -Necrosis Amt Small (1-33%) -Necrotic Tissue Type Adherent Slough -Structure Exposed N/A -Texture (Jaylyn-wound Skin Appearance) Assessed -Moisture (Jaylyn-wound Skin Appearance) Assessed,Dry/ Scaly -Color (Jaylyn-wound Skin Appearance) Assessed -Temperature (Jaylyn-wound Skin No Abnormality Appearance) (Pt Warm) -Tenderness on Palpation (Jaylyn-wound No Skin Appearance) -Ulcer Cleansing Wound Cleanser -Foul Odor after Cleansing No -Anesthetic Used 5% Lidocaine Gel #28 left 2nd, 3rd, 4th toe cluster -Combined with other wound No -Current Size (cm) - Length 0.1 -Current Size (cm) - Width 0.1 -Current Size (cm) - Depth 0.1 -Total Square Cm 0.01 -Tunneling No -Undermining/Tunneling No -Circular Undermining No -Exudate Amt Small -Exudate Type Serosanguineous -Wound Margin Distinct, Outline Attached -Granulation Amt Medium (34-66%) -Granulation Quality [place] -Slough/Fibrin Yes -Necrosis Amt Small (1-33%) -Necrotic Tissue Type Adherent Slough -Structure Exposed N/A -Texture (Jaylyn-wound Skin Appearance) Assessed -Moisture (Jaylyn-wound Skin Appearance) Dry/Scaly -Color (Jaylyn-wound Skin Appearance) Assessed -Temperature (Jaylyn-wound Skin No Abnormality Appearance) (Pt Warm) -Tenderness on Palpation (Jaylyn-wound No Skin Appearance) -Ulcer Cleansing Wound Cleanser -Foul Odor after Cleansing No -Anesthetic Used 5% Lidocaine Gel Lower Limb Edema Present Yes Right Calf (cm) 43.2 Right Ankle (cm) 28.5 Left Calf (cm) 46.5 Left Ankle (cm) 30.8 WC - Nurse 2 - General Ulcer CM Notes Start: 05/18/21 10:01 Freq: Status: Active Protocol: Activity Type Activity Date Activity User E-Sign Co-Sign Detail Recorded Client Recorded Date Recorded By Document 05/18/21 10:25 MW [id number] 05/18/21 10:35 MW 05/18/21 10:25 Wound Center Nurse 2 #33 right lateral LE -Time 10:27 -Correct Patient Yes -Correct Side, Site, Position Yes -Correct Procedure Yes -Procedure Performed Yes -Type of Procedure Debridement -Clinical Debridement Subcutaneous -Tissue Removed Subcutaneous -Post Debridement (cm) - Length 2.5 -Post Debridement (cm) - Width 2.0 -Post Debridement (cm) - Depth 0.2 -Total Square (Post) (cm) 5.00 -Area of Debridement (cm) - Length 2.5 -Area of Debridement (cm) - Width 2.0 -Total Square (Area) (cm) 5.00 -Tunneling No -Undermining/Tunneling No -Circular Undermining No -Wound/Ulcer Outcome Not Healed -Ulcer Cleansing Rinsed/ Irrigated with Saline -Foul Odor after Cleansing No -Bioengineered Tissue No -Bleeding Controlled with Pressure -Offloading No -Treatment Response Procedure Tolerated Well -Debridement - Subq, 1st 20sq cm Yes 32. LLE medial -Time 10:28 -Correct Patient Yes -Correct Side, Site, Position Yes -Correct Procedure Yes -Procedure Performed Yes -Type of Procedure Debridement -Clinical Debridement Subcutaneous -Tissue Removed Subcutaneous -Post Debridement (cm) - Length 0.3 -Post Debridement (cm) - Width 0.3 -Post Debridement (cm) - Depth 0.2 -Total Square (Post) (cm) 0.09 -Area of Debridement (cm) - Length 0.3 -Area of Debridement (cm) - Width 0.3 -Total Square (Area) (cm) 0.09 -Tunneling No -Undermining/Tunneling No -Circular Undermining No -Wound/Ulcer Outcome Not Healed -Ulcer Cleansing Rinsed/ Irrigated with Saline -Foul Odor after Cleansing No -Bioengineered Tissue No -Bleeding Controlled with Pressure -Offloading No -Treatment Response Procedure Tolerated Well -Debridement - Subq, 1st 20sq cm No 31. RLE anterior -Time 10:28 -Correct Patient Yes -Correct Side, Site, Position Yes -Correct Procedure Yes -Procedure Performed No -Post Debridement (cm) - Length 0 -Post Debridement (cm) - Width 0 -Post Debridement (cm) - Depth 0 -Total Square (Post) (cm) 0 -Wound/Ulcer Outcome Healed- Epithelialized 29-left lateral dorsal foot -Time 10:28 -Correct Patient Yes -Correct Side, Site, Position Yes -Correct Procedure Yes -Procedure Performed No -Tunneling No -Undermining/Tunneling No -Circular Undermining No -Wound/Ulcer Outcome Healed- Epithelialized #28 left 2nd, 3rd, 4th toe cluster -Time 10:28 -Correct Patient Yes -Correct Side, Site, Position Yes -Correct Procedure Yes -Procedure Performed Yes -Type of Procedure Debridement -Clinical Debridement Subcutaneous -Tissue Removed Subcutaneous -Post Debridement (cm) - Length 1.0 -Post Debridement (cm) - Width 2.0 -Post Debridement (cm) - Depth 0.1 -Total Square (Post) (cm) 2.00 -Area of Debridement (cm) - Length 1.0 -Area of Debridement (cm) - Width 2.0 -Total Square (Area) (cm) 2.00 -Tunneling No -Undermining/Tunneling No -Circular Undermining No -Wound/Ulcer Outcome Not Healed -Ulcer Cleansing Rinsed/ Irrigated with Saline -Foul Odor after Cleansing No -Bioengineered Tissue No -Bleeding Controlled with Pressure -Offloading No -Treatment Response Procedure Tolerated Well -Debridement - Subq, 1st 20sq cm No Pain Scale: 0-10 Numeric Is Patient Pain Free? Yes - Nurse 3 - General Ulcer D/C NN Start: 05/18/21 10:01 Freq: Status: Active Protocol: Activity Type Activity Date Activity User E-Sign Co-Sign Detail Recorded Client Recorded Date Recorded By Document 05/18/21 10:43 RB [id number] 05/18/21 10:46 RB 05/18/21 10:43 Wound Care Nurse 3 #33 right lateral LE -Ulcer Cleansing Rinsed/ Irrigated with Saline -Primary Dressing Applied Aquacel AG 4x4 -Primary Dressing Covered/Secured with Dry Gauze,Dry Gauze & Roll Gauze,Secured with Tape -Aquacel AG 4x4 1 32. LLE medial -Ulcer Cleansing Rinsed/ Irrigated with Saline -Primary Dressing Applied NonAdherent Contact Layer, Promogran Laura Matter -Primary Dressing Covered/Secured with Dry Gauze,Dry Gauze & Roll Gauze,Secured with Tape -Promogran Laura Matter 1 #28 left 2nd, 3rd, 4th toe cluster -Ulcer Cleansing Rinsed/ Irrigated with Saline -Primary Dressing Applied NonAdherent Contact Layer -Other Dressing laura -Primary Dressing Covered/Secured with Dry Gauze,Dry Gauze & Roll Gauze,Secured with Tape Right -Other cotton liner & phuc Left -Other cotton liner and phuc Treatment Response Procedure Tolerated Well Pain Scale: 0-10 Numeric Is Patient Pain Free? Yes WC - Visit Discharge Discharge Condition Stable Ambulatory Status Ambulatory, Walker Transportation Private Auto Medication Reconcilliation completed & No provided to patient/care provider Clinical Summary of Care Provided Yes Additional Wound Wound debrided: Left LE medial Laterality: Left Type of Debridement: Excisional debridement Anesthesia Used: 4% Lidocaine Solution Depth: Down to and including healthy tissue and in the subcutaneous layer Percentage of wound debrided: 100 Instrument Used: 5mm curette Tissue Removed: Yellow slough, devitalized tissue Severity: Fat Layer Exposed Amount of bleeding with debridement: Mild Bleeding Controlled with: Compression and gauze Patient tolerated procedure: Patient tolerated procedure well Additional Wound Wound debrided: Right LE anterior Laterality: Right Operative Diagnosis: No debridement - healed Additional Wound Wound debrided: Left lateral dorsal foot Laterality: Left Operative Diagnosis: no debridement - healed Additional Wound Wound debrided: Left 2nd,3rd, 4th toe ulcer cluster Laterality: Left Wound Grade/Stage: Espinoza grade 2 Type of Debridement: Excisional debridement Anesthesia Used: 4% Lidocaine Solution and 5% Lidocaine Gel Depth: Down to and including healthy tissue and in the subcutaneous layer Percentage of wound debrided: 100 Instrument Used: 5mm curette Tissue Removed: Yellow slough, devitalized tissue Severity: Fat Layer Exposed Amount of bleeding with debridement: Mild Bleeding Controlled with: Compression and gauze Assessment/Plan Assessment/Plan (1) Ulcer of left lower extremity with fat layer exposed: CODE(S): L97.922 - Non-pressure chronic ulcer of unspecified part of left lower leg with fat layer exposed (2) Ulcer of left foot: CODE(S): L97.529 - Non-pressure chronic ulcer of other part of left foot with unspecified severity QUALIFIERS: Non-pressure ulcer stage: limited to breakdown of skin Qualified Code(s): L97.521 - Non-pressure chronic ulcer of other part of left foot limited to breakdown of skin (3) Ulcer of right lower extremity with fat layer exposed: CODE(S): L97.912 - Non-pressure chronic ulcer of unspecified part of right lower leg with fat layer exposed (4) HERNÁN (obstructive sleep apnea): CODE(S): G47.33 - Obstructive sleep apnea (adult) (pediatric) (5) Obesity: CODE(S): E66.9 - Obesity, unspecified QUALIFIERS: Obesity type: unspecified obesity type Obesity classification: adult class 2 (BMI 35 - 39.9) Serious obesity comorbidity pres ence: with serious comorbidity Body mass index: BMI 37.0-37.9 Qualified Code(s): E66.01 - Morbid (severe) obesity due to excess calories; Z68.37 - Body mass index [BMI] 37.0-37.9, adult (6) Morbid obesity: CODE(S): E66.01 - Morbid (severe) obesity due to excess calories (7) Chronic acquired lymphedema: CODE(S): I89.0 - Lymphedema, not elsewhere classified (8) Chronic diastolic (congestive) heart failure: CODE(S): I50.32 - Chronic diastolic (congestive) heart failure (9) Venous stasis dermatitis: CODE(S): I87.2 - Venous insufficiency (chronic) (peripheral) QUALIFIERS: Laterality: bilateral Qualified Code(s): I87.2 - Venous insufficiency (chronic) (peripheral) (10) Lymphedema of both lower extremities: CODE(S): I89.0 - Lymphedema, not elsewhere classified (11) Ulcer of left second toe: CODE(S): L97.529 - Non-pressure chronic ulcer of other part of left foot with unspecified severity QUALIFIERS: Non-pressure ulcer stage: with fat layer exposed Qualified Code(s): L97.522 - Non-pressure chronic ulcer of other part of left foot with fat layer exposed (12) Skin ulcer of third toe of left foot: CODE(S): L97.529 - Non-pressure chronic ulcer of other part of left foot with unspecified severity QUALIFIERS: Non-pressure ulcer stage: with fat layer exposed Qualified Code(s): L97.522 - Non-pressure chronic ulcer of other part of left foot with fat layer exposed (13) Skin ulcer of fourth toe of left foot with fat layer exposed: CODE(S): L97.522 - Non-pressure chronic ulcer of other part of left foot with fat layer exposed PLAN: Mr. Russell's legs have lymphedema and chronic stasis dermatitis. The ulcers of his left plantar foot remain healed. His other ulcers of his left toes are healing. Will dress his left toe ulcers with Promogran covered with adaptic M,W,F for moderate drainage. His left lateral foot and left luz ulcer are healed. Right anterior LE ulcer is healed. Right lateral LE will be dressed with Aquacel Ag. His recent labs have been reviewed. Encouraged adequate protein intake. Venous studies show resolution of his DVT. Arterial studies show no significant disease. He was advised to use zinc oxide or triamcinolone cream to his legs once daily to help with his dermatitis. Will plan on returning to maintenance control of his edema with PHUC wraps. He was advised to use his compression pumps twice daily and be vigilant with elevating his legs to avoid worsening of his edema which causes the cellulitis and ulcers. Call with worsening pain, drainage or odor. F/U in 2 weeks.
[2021-06-08 09:58] VITALS: BP 90/48; PULSE 99; RESP 18; TEMP 35.6; BMI 37.3
--- NOTE | 2021-06-08 10:26 | PN.PCM_ITS ---
History of Present Illness Date of Service: 06/08/21 Chief Complaint: left lower extremity ulcer, cellulitis and edema b/l LE History of Wound: Mr. Russell is a 70 yo gentelman well-known to the wound center who presents due to new (recurrent) left lower extremity ulcer. Said to have started about a week ago. He initially noted increased fluid drainage and increased swelling and then erythema. His HH nurse was concerned regarding the appearance of the left lateral leg and it began draining more and his dialysis nurses were also concerned. He also has petechial appearing spots on his toes, and feet b/l but none of his upper extremities or more proximally. Denies chills, fever or otherwise feeling of unwell. He is on chronic dialysis and uses compression pumps to manage his edema. He recently underwent surgery for fistula placement for dialysis. He reports that his edema has been better than it has been in the past but has had scaling and drainage to his skin which had resolved when he was using UNNA boots when he was here last. He applies Eucerin, zinc oxide to his legs but this has not helped the scaling recently of his left leg. His left leg remains more swollen than his right and has significant keratosis. Subjective Subjective His left lateral LE ulcer remains healed. The left lateral foot is healed. There are several ulcers of his left dorsal 2,3,4th toes which are still present but are improved. He tolerated treatment with Laura. The new ulcer of his left luz is healed. He underwent arterial testing November 2020 and it showed mild PAD at the level of his ankles. The ulcers of his right leg are improving. His edema is worse today compared to previous. He hasn't been faithful with Circaids. He denies fever or chills, increased erythema or drainage. He completed antibiotic treatment. Objective Data Objective Data Vital Signs: Vital Signs Temp Pulse Resp BP 96.1 F L 99 18 90/48 L 06/08/21 09:58 06/08/21 09:58 06/08/21 09:58 06/08/21 09:58 Weight: 117.934 kg Body Mass Index (BMI) 37.3 Physical Exam Const alert, oriented x3 and no apparent distress General Appearance: cooperative and comfortable HEENT normocephalic and head/scalp atraumatic Lymph Lymphatic: lymphedema Resp normal respiratory effort Effort and Inspection: able to speak in complete sentences Skin General Skin Exam: venous stasis Wounds: wounds noted Wound Narrative: as noted in clinical panel Psych mental status grossly normal and thought process normal Debridement Note Debridement Note Wound debrided: left medial LE Laterality: Left No debridement was completed: No debridement was completed today (healed) Post-Debridement Measurements and Additional Note: Post-Debridement Measurements/Treatment MAXX - Nurse 1 - General Ulcer Assessment Start: 05/18/21 10:01 Freq: Status: Active Protocol: JATIN Activity Type Activity Date Activity User E-Sign Co-Sign Detail Recorded Client Recorded Date Recorded By Document 05/18/21 10:01 RB [id number] 05/18/21 10:14 RB Document 06/08/21 09:58 JIM [id number] 06/08/21 10:06 JIM 05/18/21 06/08/21 10:01 09:58 MAXX - Today's Visit Information Type of service Follow-up Visit Follow-up Visit (Physician/DIGITAL OPERATIONS ANALYST (Physician/DIGITAL OPERATIONS ANALYST ) ) Arrival Mode Ambulatory Ambulatory, Walker Transfer Assistance None Patient Identification Verified (Name & Yes No ) Patient Requires Transmission-Based No Precautions Height and Weight Body Mass Index (BMI) 37.3 37.3 BMI Classification Obese Obese Vital Signs Temperature (97.8 F-99.1 F) 97.1 F L 96.1 F L Temperature Source Temporal Temporal Pulse Rate (60-100) 99 99 Pulse Location Monitor Monitor Respiratory Rate (12-18) 18 18 Respiratory rate source Observation Observation Blood Pressure (90/60-120/80) 86/35 L 90/48 L Blood Pressure Mean (mm Hg) 52 62 Source Monitor Monitor Position Semi-Fowlers Sitting Blood Pressure Location Left Arm Left Arm History Since Last Visit- (Skip if this is Patient's initial visit) Have you changed medications since your No No last visit? Any new allergies or adverse reactions No No Had a fall/change in ADL's that may No No increase risk of falls Signs or symptoms of abuse and/or No No neglect since last visit Have you been in the hospital since your No No last visit? Has dressing in place as prescribed Yes Yes Has compression in place as prescribed Yes Yes Has offloadiing in place as prescribed No N/A Experienced any changes in pain level or No No management Left Footwear Diabetic Shoe Custom Shoe Right Footwear Diabetic Shoe Custom Shoe Pain Scale: 0-10 Numeric Is Patient Pain Free? Yes Yes WC - Nurse 1 - General Ulcer Measurement Start: 05/18/21 10:01 Freq: Status: Active Protocol: Activity Type Activity Date Activity User E-Sign Co-Sign Detail Recorded Client Recorded Date Recorded By Document 05/18/21 10:01 RB [id number] 05/18/21 10:14 RB Document 06/08/21 09:58 JF [id number] 06/08/21 10:06 JF 05/18/21 06/08/21 10:01 09:58 Wound Center Nurse 1 #33 right lateral LE -Combined with other wound No No -Current Size (cm) - Length 3 2.5 -Current Size (cm) - Width 2.3 1.0 -Current Size (cm) - Depth 0.3 0.3 -Total Square Cm 6.9 2.50 -Photo Taken No -Epithelialization Medium 34-66% -Tunneling No No -Undermining/Tunneling No No -Circular Undermining No No -Exudate Amt Medium -Exudate Type Serosanguineous -Wound Margin Distinct, Flat & Intact Outline Attached -Granulation Amt Medium (34-66%) Medium (34-66%) -Granulation Quality [place] -Slough/Fibrin Yes Yes -Necrosis Amt Medium (34-66%) Small (1-33%) -Necrotic Tissue Type Adherent Slough -Structure Exposed N/A Tendon,N/A -Texture (Jaylyn-wound Skin Appearance) Assessed, Assessed, Localized Edema Localized Edema -Moisture (Jaylyn-wound Skin Appearance) Dry/Scaly Assessed,Dry/ Scaly -Color (Jaylyn-wound Skin Appearance) Assessed Assessed, Hemosiderin Staining -Temperature (Jaylyn-wound Skin No Abnormality No Abnormality Appearance) (Pt Warm) (Pt Warm) -Tenderness on Palpation (Jaylyn-wound No No Skin Appearance) -Ulcer Cleansing Wound Cleanser Wound Cleanser -Foul Odor after Cleansing No -Anesthetic Used 5% Lidocaine 4% Lidocaine Gel Solution 32. LLE medial -Combined with other wound No No -Current Size (cm) - Length 0.5 0 -Current Size (cm) - Width 0.5 0 -Current Size (cm) - Depth 0.3 0 -Total Square Cm 0.25 0 -Photo Taken Yes -Epithelialization Large 67-100% -Tunneling No -Undermining/Tunneling No -Circular Undermining No -Exudate Amt Medium -Exudate Type Serosanguineous -Wound Margin Distinct, Outline Attached -Granulation Amt Medium (34-66%) -Granulation Quality [place] -Slough/Fibrin Yes -Necrosis Amt Small (1-33%) -Necrotic Tissue Type Adherent Slough -Structure Exposed N/A -Texture (Jaylyn-wound Skin Appearance) Assessed -Moisture (Jaylyn-wound Skin Appearance) Dry/Scaly -Color (Jaylyn-wound Skin Appearance) Assessed -Temperature (Jaylyn-wound Skin No Abnormality Appearance) (Pt Warm) -Tenderness on Palpation (Jaylyn-wound No Skin Appearance) -Ulcer Cleansing Wound Cleanser -Foul Odor after Cleansing Yes, Due to Product Use -Anesthetic Used 5% Lidocaine Gel 31. RLE anterior -Combined with other wound No -Current Size (cm) - Length 0.1 -Current Size (cm) - Width 0.1 -Current Size (cm) - Depth 0.1 -Total Square Cm 0.01 -Tunneling No -Undermining/Tunneling No -Circular Undermining No -Exudate Amt Small -Exudate Type Serosanguineous -Wound Margin Distinct, Outline Attached -Granulation Amt Medium (34-66%) -Granulation Quality [place] -Slough/Fibrin Yes -Necrosis Amt Medium (34-66%) -Necrotic Tissue Type Adherent Slough -Structure Exposed N/A -Texture (Jaylyn-wound Skin Appearance) Assessed -Moisture (Jaylyn-wound Skin Appearance) Assessed,Dry/ Scaly -Color (Jaylyn-wound Skin Appearance) Assessed -Temperature (Jaylyn-wound Skin No Abnormality Appearance) (Pt Warm) -Tenderness on Palpation (Jaylyn-wound No Skin Appearance) -Ulcer Cleansing Wound Cleanser -Foul Odor after Cleansing No -Anesthetic Used 5% Lidocaine Gel 29-left lateral dorsal foot -Combined with other wound No -Current Size (cm) - Length 0.1 -Current Size (cm) - Width 0.1 -Current Size (cm) - Depth 0.1 -Total Square Cm 0.01 -Tunneling No -Undermining/Tunneling No -Circular Undermining No -Exudate Amt Small -Exudate Type Serosanguineous -Wound Margin Distinct, Outline Attached -Granulation Amt Medium (34-66%) -Granulation Quality [place] -Slough/Fibrin Yes -Necrosis Amt Small (1-33%) -Necrotic Tissue Type Adherent Slough -Structure Exposed N/A -Texture (Jaylyn-wound Skin Appearance) Assessed -Moisture (Jaylyn-wound Skin Appearance) Assessed,Dry/ Scaly -Color (Jaylyn-wound Skin Appearance) Assessed -Temperature (Jaylyn-wound Skin No Abnormality Appearance) (Pt Warm) -Tenderness on Palpation (Jaylyn-wound No Skin Appearance) -Ulcer Cleansing Wound Cleanser -Foul Odor after Cleansing No -Anesthetic Used 5% Lidocaine Gel #28 left 2nd, 3rd, 4th toe cluster -Combined with other wound No No -Current Size (cm) - Length 0.1 0.1 -Current Size (cm) - Width 0.1 0.1 -Current Size (cm) - Depth 0.1 0.1 -Total Square Cm 0.01 0.01 -Photo Taken No -Epithelialization Large 67-100% -Tunneling No No -Undermining/Tunneling No -Circular Undermining No No -Exudate Amt Small None Present -Exudate Type Serosanguineous -Wound Margin Distinct, Fibrotic Scar, Outline Thickened Scar Attached -Granulation Amt Medium (34-66%) None Present (0 %) -Granulation Quality [place] -Slough/Fibrin Yes No -Necrosis Amt Small (1-33%) Small (1-33%) -Necrotic Tissue Type Adherent Slough Adherent Slough -Structure Exposed N/A N/A -Texture (Jaylyn-wound Skin Appearance) Assessed Assessed, Localized Edema -Moisture (Jaylyn-wound Skin Appearance) Dry/Scaly No Abnormality, Dry/Scaly -Color (Jaylyn-wound Skin Appearance) Assessed Assessed -Temperature (Jaylyn-wound Skin No Abnormality No Abnormality Appearance) (Pt Warm) (Pt Warm) -Tenderness on Palpation (Jaylyn-wound No No Skin Appearance) -Ulcer Cleansing Wound Cleanser Wound Cleanser -Foul Odor after Cleansing No No -Anesthetic Used 5% Lidocaine Gel Lower Limb Edema Present Yes Yes Right Calf (cm) 43.2 42.0 Right Ankle (cm) 28.5 28.2 Left Calf (cm) 46.5 44.2 Left Ankle (cm) 30.8 28.5 WC - Nurse 2 - General Ulcer CM Notes Start: 05/18/21 10:01 Freq: Status: Active Protocol: Activity Type Activity Date Activity User E-Sign Co-Sign Detail Recorded Client Recorded Date Recorded By Document 05/18/21 10:25 MW [id number] 05/18/21 10:35 MW Document 06/08/21 10:10 MW [id number] 06/08/21 10:18 MW 05/18/21 06/08/21 10:25 10:10 Wound Center Nurse 2 #33 right lateral LE -Time 10:27 10:13 -Correct Patient Yes Yes -Correct Side, Site, Position Yes Yes -Correct Procedure Yes Yes -Procedure Performed Yes Yes -Type of Procedure Debridement Debridement -Clinical Debridement Subcutaneous Subcutaneous -Tissue Removed Subcutaneous Subcutaneous -Post Debridement (cm) - Length 2.5 2.5 -Post Debridement (cm) - Width 2.0 1.5 -Post Debridement (cm) - Depth 0.2 0.2 -Total Square (Post) (cm) 5.00 3.75 -Area of Debridement (cm) - Length 2.5 2.5 -Area of Debridement (cm) - Width 2.0 1.5 -Total Square (Area) (cm) 5.00 3.75 -Tunneling No No -Undermining/Tunneling No No -Circular Undermining No No -Wound/Ulcer Outcome Not Healed Not Healed -Ulcer Cleansing Rinsed/ Rinsed/ Irrigated with Irrigated with Saline Saline -Foul Odor after Cleansing No No -Bioengineered Tissue No No -Bleeding Controlled with Pressure Pressure -Offloading No No -Treatment Response Procedure Procedure Tolerated Well Tolerated Well -Debridement - Subq, 1st 20sq cm Yes Yes 32. LLE medial -Time 10:28 10:14 -Correct Patient Yes Yes -Correct Side, Site, Position Yes Yes -Correct Procedure Yes Yes -Procedure Performed Yes No -Type of Procedure Debridement -Clinical Debridement Subcutaneous -Tissue Removed Subcutaneous -Post Debridement (cm) - Length 0.3 0 -Post Debridement (cm) - Width 0.3 0 -Post Debridement (cm) - Depth 0.2 0 -Total Square (Post) (cm) 0.09 0 -Area of Debridement (cm) - Length 0.3 -Area of Debridement (cm) - Width 0.3 -Total Square (Area) (cm) 0.09 -Tunneling No -Undermining/Tunneling No -Circular Undermining No -Wound/Ulcer Outcome Not Healed Healed- Epithelialized -Ulcer Cleansing Rinsed/ Irrigated with Saline -Foul Odor after Cleansing No -Bioengineered Tissue No -Bleeding Controlled with Pressure -Offloading No -Treatment Response Procedure Tolerated Well -Debridement - Subq, 1st 20sq cm No 31. RLE anterior -Time 10:28 -Correct Patient Yes -Correct Side, Site, Position Yes -Correct Procedure Yes -Procedure Performed No -Post Debridement (cm) - Length 0 -Post Debridement (cm) - Width 0 -Post Debridement (cm) - Depth 0 -Total Square (Post) (cm) 0 -Wound/Ulcer Outcome Healed- Epithelialized 29-left lateral dorsal foot -Time 10:28 -Correct Patient Yes -Correct Side, Site, Position Yes -Correct Procedure Yes -Procedure Performed No -Tunneling No -Undermining/Tunneling No -Circular Undermining No -Wound/Ulcer Outcome Healed- Epithelialized #28 left 2nd, 3rd, 4th toe cluster -Time 10:28 10:14 -Correct Patient Yes Yes -Correct Side, Site, Position Yes Yes -Correct Procedure Yes Yes -Procedure Performed Yes Yes -Type of Procedure Debridement Debridement -Clinical Debridement Subcutaneous Subcutaneous -Tissue Removed Subcutaneous Subcutaneous -Post Debridement (cm) - Length 1.0 0.9 -Post Debridement (cm) - Width 2.0 0.3 -Post Debridement (cm) - Depth 0.1 0.1 -Total Square (Post) (cm) 2.00 0.27 -Area of Debridement (cm) - Length 1.0 0.9 -Area of Debridement (cm) - Width 2.0 0.3 -Total Square (Area) (cm) 2.00 0.27 -Tunneling No No -Undermining/Tunneling No No -Circular Undermining No No -Wound/Ulcer Outcome Not Healed Not Healed -Ulcer Cleansing Rinsed/ Rinsed/ Irrigated with Irrigated with Saline Saline -Foul Odor after Cleansing No No -Bioengineered Tissue No No -Bleeding Controlled with Pressure Pressure -Offloading No No -Treatment Response Procedure Procedure Tolerated Well Tolerated Well -Debridement - Subq, 1st 20sq cm No No Pain Scale: 0-10 Numeric Is Patient Pain Free? Yes Yes WC - Nurse 3 - General Ulcer D/C NN Start: 05/18/21 10:01 Freq: Status: Active Protocol: Activity Type Activity Date Activity User E-Sign Co-Sign Detail Recorded Client Recorded Date Recorded By Document 05/18/21 10:43 ISMAEL [id number] 05/18/21 10:46 RB 05/18/21 10:43 Wound Care Nurse 3 #33 right lateral LE -Ulcer Cleansing Rinsed/ Irrigated with Saline -Primary Dressing Applied Aquacel AG 4x4 -Primary Dressing Covered/Secured with Dry Gauze,Dry Gauze & Roll Gauze,Secured with Tape -Aquacel AG 4x4 1 32. LLE medial -Ulcer Cleansing Rinsed/ Irrigated with Saline -Primary Dressing Applied NonAdherent Contact Layer, Promogran Laura Matter -Primary Dressing Covered/Secured with Dry Gauze,Dry Gauze & Roll Gauze,Secured with Tape -Promogran Laura Matter 1 #28 left 2nd, 3rd, 4th toe cluster -Ulcer Cleansing Rinsed/ Irrigated with Saline -Primary Dressing Applied NonAdherent Contact Layer -Other Dressing laura -Primary Dressing Covered/Secured with Dry Gauze,Dry Gauze & Roll Gauze,Secured with Tape Right -Other cotton liner & phuc Left -Other cotton liner and phuc Treatment Response Procedure Tolerated Well Pain Scale: 0-10 Numeric Is Patient Pain Free? Yes WC - Visit Discharge Discharge Condition Stable Ambulatory Status Ambulatory, Walker Transportation Private Auto Medication Reconcilliation completed & No provided to patient/care provider Clinical Summary of Care Provided Yes Additional Wound Wound debrided: right lateral LE Laterality: Right Type of Debridement: Excisional debridement Anesthesia Used: 4% Lidocaine Solution Depth: Down to and including healthy tissue and in the subcutaneous layer Percentage of wound debrided: 100 Instrument Used: 3mm curette Tissue Removed: Yellow slough, devitalized tissue Severity: Fat Layer Exposed Amount of bleeding with debridement: Mild Bleeding Controlled with: Compression and gauze Patient tolerated procedure: Patient tolerated procedure well Additional Wound Wound debrided: Left 2nd,3rd,4th toe cluster Laterality: Left Wound Grade/Stage: Espinoza grade 1 Type of Debridement: Excisional debridement Anesthesia Used: 4% Lidocaine Solution Depth: Down to and including healthy tissue and in the subcutaneous layer Percentage of wound debrided: 100 Instrument Used: 3mm curette Tissue Removed: Yellow slough, devitalized tissue Severity: Fat Layer Exposed Amount of bleeding with debridement: Mild Bleeding Controlled with: Compression and gauze Patient tolerated procedure: Patient tolerated procedure well Assessment/Plan Assessment/Plan (1) Ulcer of left lower extremity with fat layer exposed: CODE(S): L97.922 - Non-pressure chronic ulcer of unspecified part of left lower leg with fat layer exposed (2) Ulcer of left foot: CODE(S): L97.529 - Non-pressure chronic ulcer of other part of left foot with unspecified severity QUALIFIERS: Non-pressure ulcer stage: limited to breakdown of skin Qualified Code(s): L97.521 - Non-pressure chronic ulcer of other part of left foot limited to breakdown of skin (3) Ulcer of right lower extremity with fat layer exposed: CODE(S): L97.912 - Non-pressure chronic ulcer of unspecified part of right lower leg with fat layer exposed (4) HERNÁN (obstructive sleep apnea): CODE(S): G47.33 - Obstructive sleep apnea (adult) (pediatric) (5) Obesity: CODE(S): E66.9 - Obesity, unspecified QUALIFIERS: Obesity type: unspecified obesity type Obesity classification: adult class 2 (BMI 35 - 39.9) Serious obesity comorbidity presence: with serious comorbidity Body mass index: BMI 37.0-37.9 Qualified Code(s): E66.01 - Morbid (severe) obesity due to excess calories; Z68.37 - Body mass index [BMI] 37.0-37.9, adult (6) Morbid obesity: CODE(S): E66.01 - Morbid (severe) obesity due to excess calories (7) Chronic acquired lymphedema: CODE(S): I89.0 - Lymphedema, not elsewhere classified (8) Chronic diastolic (congestive) heart failure: CODE(S): I50.32 - Chronic diastolic (congestive) heart failure (9) Venous stasis dermatitis: CODE(S): I87.2 - Venous insufficiency (chronic) (peripheral) QUALIFIERS: Laterality: bilateral Qualified Code(s): I87.2 - Venous insufficiency (chronic) (peripheral) (10) Lymphedema of both lower extremities: CODE(S): I89.0 - Lymphedema, not elsewhere classified (11) Ulcer of left second toe: CODE(S): L97.529 - Non-pressure chronic ulcer of other part of left foot with unspecified severity QUALIFIERS: Non-pressure ulcer stage: with fat layer exposed Qualified Code(s): L97.522 - Non-pressure chronic ulcer of other part of left foot with fat layer exposed (12) Skin ulcer of third toe of left foot: CODE(S): L97.529 - Non-pressure chronic ulcer of other part of left foot with unspecified severity QUALIFIERS: Non-pressure ulcer stage: with fat layer exposed Qualified Code(s): L97.522 - Non-pressure chronic ulcer of other part of left foot with fat layer exposed (13) Skin ulcer of fourth toe of left foot with fat layer exposed: CODE(S): L97.522 - Non-pressure chronic ulcer of other part of left foot with fat layer exposed PLAN: Mr. Russell's legs have lymphedema and chronic stasis dermatitis. The ulcers of his left plantar foot remain healed. His other ulcers of his left toes are healing. Will dress his left toe ulcers with Promogran covered with adaptic M,W,F for moderate drainage. His left lateral foot and left luz ulcer are healed. Right anterior LE ulcer is healed. Right lateral LE will be dressed with Aquacel Ag. His recent labs have been reviewed. Encouraged adequate protein intake. Venous studies show resolution of his DVT. Arterial studies show no significant disease. He was advised to use zinc oxide or triamcinolone cream to his legs once daily to help with his dermatitis. Will plan on returning to maintenance control of his edema with PHUC wraps. He was advised to use his compression pumps twice daily and be vigilant with elevating his legs to avoid worsening of his edema which causes the cellulitis and ulcers. Call with worsening pain, drainage or odor. F/U in 2 weeks.
== END 2021-06-11 23:59 ==
LOC: WC 10:00
PROVIDERS: PCP Family Medicine; Referring Provider Family Medicine; Visit Provider Family Medicine
DX: I73.9 Peripheral vascular disease, unspecified (principal); L97.222 Non-pressure chronic ulcer of left calf with fat layer exposed; L97.522 Non-pressure chronic ulcer of other part of left foot with fat layer exposed; L97.912 Non-pressure chronic ulcer of unspecified part of right lower leg with fat layer exposed; Z99.2 Dependence on renal dialysis; I50.32 Chronic diastolic (congestive) heart failure; E66.01 Morbid (severe) obesity due to excess calories; I87.2 Venous insufficiency (chronic) (peripheral); I89.0 Lymphedema, not elsewhere classified; G47.33 Obstructive sleep apnea (adult) (pediatric); Z68.37 Body mass index [BMI] 37.0-37.9, adult
CPT/HCPCS: 11042

== ENCOUNTER 2021-06-22 09:00 | Outpatient (RCR) | payer MEDICARE, OTHER, SELFPAY ==
[2021-06-12 00:31] VITALS: BP 90/48; PULSE 99; RESP 18; TEMP 35.6; BMI 37.3
[2021-06-22 09:13] VITALS: BP 83/37; PULSE 75; RESP 18; TEMP 36.1; BMI 37.3
--- NOTE | 2021-06-22 10:37 | PN.PCM_ITS ---
History of Present Illness Date of Service: 06/22/21 Chief Complaint: left lower extremity ulcer, cellulitis and edema b/l LE History of Wound: Mr. Russell is a 70 yo gentelman well-known to the wound center who presents due to new (recurrent) left lower extremity ulcer. Said to have started about a week ago. He initially noted increased fluid drainage and increased swelling and then erythema. His HH nurse was concerned regarding the appearance of the left lateral leg and it began draining more and his dialysis nurses were also concerned. He also has petechial appearing spots on his toes, and feet b/l but none of his upper extremities or more proximally. Denies chills, fever or otherwise feeling of unwell. He is on chronic dialysis and uses compression pumps to manage his edema. He recently underwent surgery for fistula placement for dialysis. He reports that his edema has been better than it has been in the past but has had scaling and drainage to his skin which had resolved when he was using [employer]NA boots when he was here last. He applies Eucerin, zinc oxide to his legs but this has not helped the scaling recently of his left leg. His left leg remains more swollen than his right and has significant keratosis. Subjective Subjective His left lateral LE ulcer remains healed. The left lateral foot is healed. There are several ulcers of his left dorsal 2,3,4th toes which are still present but are improved. He tolerated treatment with Mackenzie. He has not had HH visit this week. The new ulcer of his left luz remains healed. He underwent arterial testing November 2020 and it showed mild PAD at the level of his ankles. The ulcers of his right leg are improving. His edema is worse today compared to previous. He hasn't been faithful with Circaids or compression pumps. He denies fever or chills, increased erythema or drainage. Objective Data Objective Data Vital Signs: Vital Signs Temp Pulse Resp BP 97 F L 75 18 83/37 L 06/22/21 09:13 06/22/21 09:13 06/22/21 09:13 06/22/21 09:13 Weight: 117.934 kg Body Mass Index (BMI) 37.3 Physical Exam Const alert, oriented x3 and no apparent distress General Appearance: cooperative HEENT normocephalic and head/scalp atraumatic Resp normal respiratory effort Effort and Inspection: able to speak in complete sentences Cardio regular rate and regular rhythm Extremity General Extremity: edema bilateral lower extremity Details: moderate Skin Wounds: wounds noted Wound Narrative: as in clinical panel Psych mental status grossly normal, thought process normal, cooperative and affect normal Debridement Note Debridement Note Wound debrided: right lateral LE Laterality: Right Wound Grade/Stage: Espinoza grade 1 Type of Debridement: Excisional debridement Anesthesia Used: 4% Lidocaine Solution Depth: Down to and including healthy tissue and in the subcutaneous layer Percentage of wound debrided: 100 Instrument Used: 3mm curette Tissue Removed: Yellow slough, devitalized tissue Severity: Fat Layer Exposed Amount of bleeding with debridement: Mild Bleeding Controlled with: Pressure and Compression and gauze Patient tolerated procedure: Patient tolerated procedure well Post-Debridement Measurements and Additional Note: Post-Debridement Measurements/Treatment - Nurse 1 - General Ulcer Assessment Start: 06/22/21 09:09 Freq: Status: Active Protocol: [email or web address].[email or web address] Activity Type Activity Date Activity User E-Sign Co-Sign Detail Recorded Client Recorded Date Recorded By Document 06/22/21 09:13 [id number] 06/22/21 09:20 ISMAEL 06/22/21 09:13 - Today's Visit Information Type of service Follow-up Visit (Physician/CAR PORTER ) Arrival Mode Ambulatory, Walker Transfer Assistance None Patient Identification Verified (Name & Yes ) Height and Weight Body Mass Index (BMI) 37.3 BMI Classification Obese Vital Signs Temperature (97.8 F-99.1 F) 97 F L Temperature Source Temporal Pulse Rate (60-100) 75 Pulse Location Monitor Respiratory Rate (12-18) 18 Respiratory rate source Observation Blood Pressure (90/60-120/80) 83/37 L Blood Pressure Mean (mm Hg) 52 Source Monitor Position Sitting Blood Pressure Location Right Arm History Since Last Visit- (Skip if this is Patient's initial visit) Have you changed medications since your No last visit? Any new allergies or adverse reactions No Had a fall/change in ADL's that may No increase risk of falls Signs or symptoms of abuse and/or No neglect since last visit Have you been in the hospital since your No last visit? Has dressing in place as prescribed Yes Has compression in place as prescribed Yes Has offloadiing in place as prescribed No Experienced any changes in pain level or No management Left Footwear Diabetic Shoe Right Footwear Diabetic Shoe Pain Scale: 0-10 Numeric Is Patient Pain Free? Yes WC - Nurse 1 - General Ulcer Measurement Start: 06/22/21 09:09 Freq: Status: Active Protocol: Activity Type Activity Date Activity User E-Sign Co-Sign Detail Recorded Client Recorded Date Recorded By Document 06/22/21 09:13 RB [id number] 06/22/21 09:20 RB Edit Result 06/22/21 09:13 RB (1) [id number] 06/22/21 09:22 RB (1) #33 right lateral LE - Current Size (cm) - Length 4 => 2.3 - Current Size (cm) - Width 2 => 1.0 - Current Size (cm) - Depth 0.2 => 0.5 - Total Square Cm 8 => 2.30 06/22/21 09:13 Wound Center Nurse 1 #33 right lateral LE -Current Size (cm) - Length 2.3 -Current Size (cm) - Width 1.0 -Current Size (cm) - Depth 0.5 -Total Square Cm 2.30 -Wound Margin Flat & Intact -Granulation Amt Large (67-100%) -Granulation Quality Pale,[place] -Texture (Jaylyn-wound Skin Appearance) Assessed -Moisture (Jaylyn-wound Skin Appearance) Assessed, Maceration -Color (Jaylyn-wound Skin Appearance) Assessed -Temperature (Jaylyn-wound Skin No Abnormality Appearance) (Pt Warm) -Tenderness on Palpation (Jaylyn-wound No Skin Appearance) -Ulcer Cleansing Soap and Water -Foul Odor after Cleansing No -Anesthetic Used 4% Lidocaine Solution #28 left 2nd, 3rd, 4th toe cluster -Current Size (cm) - Length 0.1 -Current Size (cm) - Width 0.1 -Current Size (cm) - Depth 0.1 -Total Square Cm 0.01 -Wound Margin Flat & Intact -Granulation Amt Large (67-100%) -Granulation Quality Pale,[place] -Slough/Fibrin No -Texture (Jaylyn-wound Skin Appearance) Assessed -Moisture (Jaylyn-wound Skin Appearance) Assessed -Color (Jaylyn-wound Skin Appearance) Assessed -Temperature (Jaylyn-wound Skin No Abnormality Appearance) (Pt Warm) -Tenderness on Palpation (Jaylyn-wound No Skin Appearance) -Ulcer Cleansing Soap and Water -Anesthetic Used 4% Lidocaine Solution Right Calf (cm) 41 Right Ankle (cm) 28 Left Calf (cm) 47 Left Ankle (cm) 30.5 WC - Nurse 2 - General Ulcer CM Notes Start: 06/22/21 09:09 Freq: Status: Active Protocol: Activity Type Activity Date Activity User E-Sign Co-Sign Detail Recorded Client Recorded Date Recorded By Document 06/22/21 09:34 MW [id number] 06/22/21 09:41 MW 06/22/21 09:34 Wound Center Nurse 2 #33 right lateral LE -Time 09:34 -Correct Patient Yes -Correct Side, Site, Position Yes -Correct Procedure Yes -Procedure Performed Yes -Type of Procedure Debridement -Clinical Debridement Subcutaneous -Tissue Removed Subcutaneous -Post Debridement (cm) - Length 2.5 -Post Debridement (cm) - Width 1.0 -Post Debridement (cm) - Depth 0.2 -Total Square (Post) (cm) 2.50 -Area of Debridement (cm) - Length 2.5 -Area of Debridement (cm) - Width 1.0 -Total Square (Area) (cm) 2.50 -Tunneling No -Undermining/Tunneling No -Circular Undermining No -Wound/Ulcer Outcome Not Healed -Ulcer Cleansing Rinsed/ Irrigated with Saline -Foul Odor after Cleansing No -Bioengineered Tissue No -Bleeding Controlled with Pressure -Offloading No -Treatment Response Procedure Tolerated Well -Debridement - Subq, 1st 20sq cm Yes #28 left 2nd, 3rd, 4th toe cluster -Time 09:35 -Correct Patient Yes -Correct Side, Site, Position Yes -Correct Procedure Yes -Procedure Performed Yes -Type of Procedure Debridement -Clinical Debridement Subcutaneous -Tissue Removed Subcutaneous -Post Debridement (cm) - Length 0.9 -Post Debridement (cm) - Width 0.2 -Post Debridement (cm) - Depth 0.1 -Total Square (Post) (cm) 0.18 -Area of Debridement (cm) - Length 0.9 -Area of Debridement (cm) - Width 0.2 -Total Square (Area) (cm) 0.18 -Tunneling No -Undermining/Tunneling No -Circular Undermining No -Wound/Ulcer Outcome Not Healed -Ulcer Cleansing Rinsed/ Irrigated with Saline -Foul Odor after Cleansing No -Bioengineered Tissue No -Bleeding Controlled with Pressure -Offloading No -Treatment Response Procedure Tolerated Well -Debridement - Subq, 1st 20sq cm No Pain Scale: 0-10 Numeric Is Patient Pain Free? Yes - Nurse 3 - General Ulcer D/C NN Start: 06/22/21 09:09 Freq: Status: Active Protocol: Activity Type Activity Date Activity User E-Sign Co-Sign Detail Recorded Client Recorded Date Recorded By Document 06/22/21 10:08 RB [id number] 06/22/21 10:10 RB 06/22/21 10:08 Wound Care Nurse 3 #33 right lateral LE -Primary Dressing Applied Aquacel AG 4x4 -Primary Dressing Covered/Secured with Dry Gauze,Dry Gauze & Roll Gauze,Secured with Tape -Aquacel AG 4x4 1 #28 left 2nd, 3rd, 4th toe cluster -Ulcer Cleansing Wound Cleanser -Primary Dressing Applied NonAdherent Contact Layer, Promogran Mackenzie Matter -Primary Dressing Covered/Secured with Dry Gauze,Dry Gauze & Roll Gauze,Secured with Tape -Promogran Mackenzie Matter 1 Right -Other cotton liner, phuc Left -Other cotton liner, phuc Treatment Response Procedure Tolerated Well Pain Scale: 0-10 Numeric Is Patient Pain Free? Yes WC - Visit Discharge Discharge Condition Stable Ambulatory Status Ambulatory, Walker Transportation Private Auto Medication Reconcilliation completed & No provided to patient/care provider Clinical Summary of Care Provided Yes Additional Wound Wound debrided: left 2nd,3rd, 4th toe cluster Laterality: Left Wound Grade/Stage: Espinoaz grade 1 Type of Debridement: Excisional debridement Anesthesia Used: 4% Lidocaine Solution Depth: Down to and including healthy tissue and in the subcutaneous layer Percentage of wound debrided: 100 Instrument Used: 3mm curette Tissue Removed: Yellow slough, devitalized tissue Severity: Fat Layer Exposed Amount of bleeding with debridement: Mild Bleeding Controlled with: Compression and gauze Patient tolerated procedure: Patient tolerated procedure well Assessment/Plan Assessment/Plan (1) Ulcer of left foot: CODE(S): L97.529 - Non-pressure chronic ulcer of other part of left foot with unspecified severity QUALIFIERS: Non-pressure ulcer stage: limited to breakdown of skin Qualified Code(s): L97.521 - Non-pressure chronic ulcer of other part of left foot limited to breakdown of skin (2) Ulcer of right lower extremity with fat layer exposed: CODE(S): L97.912 - Non-pressure chronic ulcer of unspecified part of right lower leg with fat layer exposed (3) HERNÁN (obstructive sleep apnea): CODE(S): G47.33 - Obstructive sleep apnea (adult) (pediatric) (4) Obesity: CODE(S): E66.9 - Obesity, unspecified QUALIFIERS: Obesity type: unspecified obesity type Obesity classification: adult class 2 (BMI 35 - 39.9) Serious obesity comorbidity presence: with serious comorbidity Body mass index: BMI 37.0-37.9 Qualified Code(s): E66.01 - Morbid (severe) obesity due to excess calories; Z68.37 - Body mass index [BMI] 37.0-37.9, adult (5) Chronic acquired lymphedema: CODE(S): I89.0 - Lymphedema, not elsewhere classified (6) Venous stasis dermatitis: CODE(S): I87.2 - Venous insufficiency (chronic) (peripheral) QUALIFIERS: Laterality: bilateral Qualified Code(s): I87.2 - Venous insufficiency (chronic) (peripheral) (7) Stage 3 severe COPD by GOLD classification: CODE(S): J44.9 - Chronic obstructive pulmonary disease, unspecified (8) Lymphedema of both lower extremities: CODE(S): I89.0 - Lymphedema, not elsewhere classified (9) Ulcer of left second toe: CODE(S): L97.529 - Non-pressure chronic ulcer of other part of left foot with unspecified severity QUALIFIERS: Non-pressure ulcer stage: with fat layer exposed Qualified Code(s): L97.522 - Non-pressure chronic ulcer of other part of left foot with fat layer exposed (10) Skin ulcer of third toe of left foot: CODE(S): L97.529 - Non-pressure chronic ulcer of other part of left foot with unspecified severity QUALIFIERS: Non-pressure ulcer stage: with fat layer exposed Qualified Code(s): L97.522 - Non-pressure chronic ulcer of other part of left foot with fat layer exposed (11) Skin ulcer of fourth toe of left foot with fat layer exposed: CODE(S): L97.522 - Non-pressure chronic ulcer of other part of left foot with fat layer exposed (12) Chronic kidney disease with end stage 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: CODE(S): N18.6 - End stage renal disease; Z99.2 - Dependence on renal dialysis (13) Type 2 diabetes mellitus: CODE(S): E11.9 - Type 2 diabetes mellitus without complications QUALIFIERS: Diabetes mellitus complication status: with kidney complications Diabetes mellitus complication detail: with chronic kidney disease Diabetes mellitus rn long term care insulin use: with longterm use Chronic kidney disease stage: on chronic dialysis Qualified Code(s): E11.22 - Type 2 diabetes mellitus with diabetic chronic kidney disease; N18.6 - End stage renal disease; Z79.4 - correction (current) use of insulin; Z99.2 - Dependence on renal dialysis PLAN: Mr. Russell's legs have lymphedema and chronic stasis dermatitis. The ulcers of his left plantar foot remain healed. His other ulcers of his left toes are healing. Will dress his left toe ulcers with Promogran covered with adaptic M,W,F for moderate drainage. His left lateral foot and left luz ulcer are healed. Right anterior LE ulcer is healed. Right lateral LE will be dressed with Aquacel Ag. His recent labs have been reviewed. Encouraged adequate protein intake. Venous studies show resolution of his DVT. Arterial studies show no significant disease. He was advised to use zinc oxide or triamcinolone cream to his legs once daily to help with his dermatitis. Will plan on returning to maintenance control of his edema with PHUC wraps. He was advised to use his compression pumps twice daily and be vigilant with elevating his legs to avoid worsening of his edema which causes the cellulitis and ulcers. Call with worsening pain, drainage or odor. F/U in 2 weeks.
== END 2021-07-09 23:59 ==
LOC: WC 09:00
PROVIDERS: PCP Family Medicine; Referring Provider Family Medicine; Visit Provider Family Medicine
DX: E11.621 Type 2 diabetes mellitus with foot ulcer (principal); E11.51 Type 2 diabetes mellitus with diabetic peripheral angiopathy without gangrene; L97.222 Non-pressure chronic ulcer of left calf with fat layer exposed; L97.522 Non-pressure chronic ulcer of other part of left foot with fat layer exposed; Z99.2 Dependence on renal dialysis; J44.9 Chronic obstructive pulmonary disease, unspecified; E11.59 Type 2 diabetes mellitus with other circulatory complications; E11.22 Type 2 diabetes mellitus with diabetic chronic kidney disease; N18.6 End stage renal disease; E66.01 Morbid (severe) obesity due to excess calories; Z79.4 Long term (current) use of insulin; I87.2 Venous insufficiency (chronic) (peripheral); G47.33 Obstructive sleep apnea (adult) (pediatric); I89.0 Lymphedema, not elsewhere classified; R60.0 Localized edema
CPT/HCPCS: 11042

== ENCOUNTER 2021-07-27 10:00 | Outpatient (RCR) | payer MEDICARE, OTHER, SELFPAY ==
[2021-07-10 00:27] VITALS: BP 83/37; PULSE 75; RESP 18; TEMP 36.1; BMI 37.3
[2021-07-13 09:50] VITALS: BP 84/40; PULSE 99; RESP 20; TEMP 36; BMI 37.3
--- NOTE | 2021-07-13 11:03 | PN.PCM_ITS ---
History of Present Illness Date of Service: 07/13/21 Chief Complaint: left lower extremity ulcer, cellulitis and edema b/l LE History of Wound: Mr. Russell is a 70 yo gentelman well-known to the wound center who presents due to new (recurrent) left lower extremity ulcer. Said to have started about a week ago. He initially noted increased fluid drainage and increased swelling and then erythema. His HH nurse was concerned regarding the appearance of the left lateral leg and it began draining more and his dialysis nurses were also concerned. He also has petechial appearing spots on his toes, and feet b/l but none of his upper extremities or more proximally. Denies chills, fever or otherwise feeling of unwell. He is on chronic dialysis and uses compression pumps to manage his edema. He recently underwent surgery for fistula placement for dialysis. He reports that his edema has been better than it has been in the past but has had scaling and drainage to his skin which had resolved when he was using UNNA boots when he was here last. He applies Eucerin, zinc oxide to his legs but this has not helped the scaling recently of his left leg. His left leg remains more swollen than his right and has significant keratosis. Subjective Subjective His left lateral LE ulcer remains healed. The left lateral foot remains healed. There are several ulcers of his left dorsal 2,3,4th toes which are still present but are improved, nearly healed this week. He tolerated treatment with Laura. The ulcer of his left luz remains healed. He underwent arterial testing November 2020 and it showed mild PAD at the level of his ankles. The ulcers of his right leg are improving, he has a new ulcer of his right great toe that started last week. It is a fissure from a callous. He has not been applying the urea that he was supposed to be applying from Dr. Khan. His edema is worse today compared to previous. He hasn't been faithful with Circaids or compression pumps. He denies fever or chills, increased erythema or drainage. Objective Data Objective Data Vital Signs: Vital Signs Temp Pulse Resp BP 96.8 F L 99 20 H 84/40 L 07/13/21 09:50 07/13/21 09:50 07/13/21 09:50 07/13/21 09:50 Weight: 117.934 kg Body Mass Index (BMI) 37.3 Physical Exam Const alert, oriented x3 and no apparent distress General Appearance: cooperative, comfortable and well kempt HEENT normocephalic and head/scalp atraumatic Resp normal respiratory effort Effort and Inspection: able to speak in complete sentences Cardio regular rate GI Inspection: central obesity Extremity General Extremity: edema bilateral lower extremity Details: moderate Skin General Skin Exam: crusts, lichenification, venous stasis and dermatitis Wounds: wounds noted Wound Narrative: as noted in clinical panel Psych mental status grossly normal, thought process normal and cooperative Debridement Note Debridement Note Wound debrided: right great toe plantar Laterality: Right Wound Grade/Stage: Espinoza grade 1 Type of Debridement: Excisional debridement Anesthesia Used: 4% Lidocaine Solution Depth: Down to and including healthy tissue and in the subcutaneous layer Percentage of wound debrided: 100 Instrument Used: #15 blade and Forceps Tissue Removed: Yellow slough, devitalized tissue Severity: Fat Layer Exposed Amount of bleeding with debridement: Mild Bleeding Controlled with: Compression and gauze Patient tolerated procedure: Patient tolerated procedure well Post-Debridement Measurements and Additional Note: Post-Debridement Measurements/Treatment - Nurse 1 - General Ulcer Assessment Start: 07/13/21 09:46 Freq: Status: Active Protocol: JATIN Activity Type Activity Date Activity User E-Sign Co-Sign Detail Recorded Client Recorded Date Recorded By Document 07/13/21 09:50 DL [id number] 07/13/21 09:59 DL 07/13/21 09:50 - Today's Visit Information Type of service Follow-up Visit (Physician/IN[facility]KER ) Arrival Mode Ambulatory, Walker Transfer Assistance None Patient Identification Verified (Name & Yes ) Patient Requires Transmission-Based No Precautions Height and Weight Body Mass Index (BMI) 37.3 BMI Classification Obese Vital Signs Temperature (97.8 F-99.1 F) 96.8 F L Temperature Source Temporal Pulse Rate (60-100) 99 Pulse Location Monitor Respiratory Rate (12-18) 20 H Respiratory rate source Observation Blood Pressure (90/60-120/80) 84/40 L Blood Pressure Mean (mm Hg) 54 Source Monitor History Since Last Visit- (Skip if this is Patient's initial visit) Have you changed medications since your No last visit? Any new allergies or adverse reactions No Had a fall/change in ADL's that may No increase risk of falls Signs or symptoms of abuse and/or No neglect since last visit Have you been in the hospital since your No last visit? Has dressing in place as prescribed Yes Has compression in place as prescribed Yes Has offloadiing in place as prescribed Yes Experienced any changes in pain level or No management Pain Scale: 0-10 Numeric Is Patient Pain Free? Yes WC - Nurse 1 - General Ulcer Measurement Start: 07/13/21 09:46 Freq: Status: Active Protocol: Activity Type Activity Date Activity User E-Sign Co-Sign Detail Recorded Client Recorded Date Recorded By Document 07/13/21 09:50 DL [id number] 07/13/21 09:59 DL 07/13/21 09:50 Wound Center Nurse 1 #33 R Grt Toe Plantar -Current Size (cm) - Length 0.4 -Current Size (cm) - Width 2.4 -Current Size (cm) - Depth 0.5 -Total Square Cm 0.96 -Photo Taken Yes -Exudate Amt Small -Exudate Type Serosanguineous -Wound Margin Thickened -Granulation Amt Large (67-100%) -Granulation Quality Red -Necrosis Amt Small (1-33%) -Necrotic Tissue Type Adherent Slough -Structure Exposed N/A -Texture (Jaylyn-wound Skin Appearance) Callus -Moisture (Jaylyn-wound Skin Appearance) Dry/Scaly -Color (Jaylyn-wound Skin Appearance) Hemosiderin Staining -Temperature (Jaylyn-wound Skin No Abnormality Appearance) (Pt Warm) -Tenderness on Palpation (Jaylyn-wound No Skin Appearance) -Ulcer Cleansing Rinsed/ Irrigated with Saline -Foul Odor after Cleansing No -Anesthetic Used 5% Lidocaine Gel #33 right lateral LE -Current Size (cm) - Length 2.5 -Current Size (cm) - Width 0.8 -Current Size (cm) - Depth 0.4 -Total Square Cm 2.00 -Photo Taken No -Exudate Amt Medium -Exudate Type Serosanguineous -Wound Margin Distinct, Outline Attached -Granulation Amt Large (67-100%) -Granulation Quality [place],Red -Necrosis Amt Small (1-33%) -Necrotic Tissue Type Adherent Slough -Structure Exposed N/A -Texture (Jaylyn-wound Skin Appearance) Scarring -Moisture (Jaylyn-wound Skin Appearance) Dry/Scaly -Color (Jaylyn-wound Skin Appearance) Hemosiderin Staining -Temperature (Jaylyn-wound Skin No Abnormality Appearance) (Pt Warm) -Tenderness on Palpation (Jaylyn-wound No Skin Appearance) -Ulcer Cleansing Rinsed/ Irrigated with Saline -Foul Odor after Cleansing No -Anesthetic Used 4% Lidocaine Solution #28 left 2nd, 3rd, 4th toe cluster -Current Size (cm) - Length 0.1 -Current Size (cm) - Width 0.1 -Current Size (cm) - Depth 0.1 -Total Square Cm 0.01 -Photo Taken No -Exudate Amt None Present -Wound Margin Thickened -Granulation Amt Large (67-100%) -Granulation Quality Pale,[place] -Necrosis Amt Small (1-33%) -Necrotic Tissue Type Adherent Slough -Structure Exposed N/A -Texture (Jaylyn-wound Skin Appearance) Scarring -Moisture (Jaylyn-wound Skin Appearance) Dry/Scaly -Color (Jaylyn-wound Skin Appearance) Hemosiderin Staining -Temperature (Jaylyn-wound Skin No Abnormality Appearance) (Pt Warm) -Tenderness on Palpation (Jaylyn-wound No Skin Appearance) -Ulcer Cleansing Rinsed/ Irrigated with Saline -Foul Odor after Cleansing No -Anesthetic Used 4% Lidocaine Solution Right Calf (cm) 41 Right Ankle (cm) 27.7 Left Calf (cm) 43.5 Left Ankle (cm) 28.5 WC - Nurse 2 - General Ulcer CM Notes Start: 07/13/21 09:46 Freq: Status: Active Protocol: Activity Type Activity Date Activity User E-Sign Co-Sign Detail Recorded Client Recorded Date Recorded By Document 07/13/21 10:09 MW [id number] 07/13/21 10:29 MW 07/13/21 10:09 Wound Center Nurse 2 #33 R Grt Toe Plantar -Time 10:09 -Correct Patient Yes -Correct Side, Site, Position Yes -Correct Procedure Yes -Procedure Performed Yes -Type of Procedure Debridement -Clinical Debridement Subcutaneous -Tissue Removed Subcutaneous -Post Debridement (cm) - Length 0.3 -Post Debridement (cm) - Width 2.3 -Post Debridement (cm) - Depth 0.2 -Total Square (Post) (cm) 0.69 -Area of Debridement (cm) - Length 0.3 -Area of Debridement (cm) - Width 2.3 -Total Square (Area) (cm) 0.69 -Tunneling No -Undermining/Tunneling No -Circular Undermining No -Wound/Ulcer Outcome Not Healed -Ulcer Cleansing Rinsed/ Irrigated with Saline -Foul Odor after Cleansing No -Bioengineered Tissue No -Bleeding Controlled with Pressure -Offloading No -Treatment Response Procedure Tolerated Well -Debridement - Subq, 1st 20sq cm Yes #33 right lateral LE -Time 10:10 -Correct Patient Yes -Correct Side, Site, Position Yes -Correct Procedure Yes -Procedure Performed Yes -Type of Procedure Debridement -Clinical Debridement Subcutaneous -Tissue Removed Subcutaneous -Post Debridement (cm) - Length 2.5 -Post Debridement (cm) - Width 1.0 -Post Debridement (cm) - Depth 0.2 -Total Square (Post) (cm) 2.50 -Area of Debridement (cm) - Length 2.5 -Area of Debridement (cm) - Width 1.0 -Total Square (Area) (cm) 2.50 -Tunneling No -Undermining/Tunneling No -Circular Undermining No -Wound/Ulcer Outcome Not Healed -Ulcer Cleansing Rinsed/ Irrigated with Saline -Foul Odor after Cleansing No -Bioengineered Tissue No -Bleeding Controlled with Pressure -Offloading No -Treatment Response Procedure Tolerated Well -Debridement - Subq, 1st 20sq cm No #28 left 2nd, 3rd, 4th toe cluster -Time 10:11 -Correct Patient Yes -Correct Side, Site, Position Yes -Correct Procedure Yes -Procedure Performed Yes -Type of Procedure Debridement -Clinical Debridement Subcutaneous -Tissue Removed Subcutaneous -Post Debridement (cm) - Length 0.2 -Post Debridement (cm) - Width 0.2 -Post Debridement (cm) - Depth 0.1 -Total Square (Post) (cm) 0.04 -Area of Debridement (cm) - Length 0.2 -Area of Debridement (cm) - Width 0.2 -Total Square (Area) (cm) 0.04 -Tunneling No -Undermining/Tunneling No -Circular Undermining No -Wound/Ulcer Outcome Not Healed -Ulcer Cleansing Rinsed/ Irrigated with Saline -Foul Odor after Cleansing No -Bioengineered Tissue No -Bleeding Controlled with Pressure -Offloading No -Treatment Response Procedure Tolerated Well -Debridement - Subq, 1st 20sq cm No Pain Scale: 0-10 Numeric Is Patient Pain Free? Yes WC - Nurse 3 - General Ulcer D/C NN Start: 07/13/21 09:46 Freq: Status: Active Protocol: Activity Type Activity Date Activity User E-Sign Co-Sign Detail Recorded Client Recorded Date Recorded By Document 07/13/21 10:52 DL [id number] 07/13/21 10:54 DL 07/13/21 10:52 Wound Care Nurse 3 #33 R Grt Toe Plantar -Ulcer Cleansing Rinsed/ Irrigated with Saline -Foul Odor after Cleansing No -Primary Dressing Applied Promogran Laura Matter -Primary Dressing Covered/Secured with Dry Gauze, Secured with Tape -Other Covering apperture pad -Promogran Laura Matter 1 #33 right lateral LE -Ulcer Cleansing Rinsed/ Irrigated with Saline -Other Dressing laura -Primary Dressing Covered/Secured with Dry Gauze & Roll Gauze, Secured with Tape #28 left 2nd, 3rd, 4th toe cluster -Ulcer Cleansing Rinsed/ Irrigated with Saline -Other Dressing appurture pad Treatment Response Procedure Tolerated Well Pain Scale: 0-10 Numeric Is Patient Pain Free? Yes WC - Visit Discharge Discharge Condition Stable Ambulatory Status Ambulatory, Walker Facility Type Home Health Orders Sent Yes Additional Wound Wound debrided: right lateral LE Laterality: Right Type of Debridement: Excisional debridement Anesthesia Used: 4% Lidocaine Solution Depth: Down to and including healthy tissue and in the subcutaneous layer Percentage of wound debrided: 100 Instrument Used: #15 blade and Forceps Tissue Removed: Yellow slough, devitalized tissue Severity: Fat Layer Exposed Amount of bleeding with debridement: Mild Bleeding Controlled with: Compression and gauze Patient tolerated procedure: Patient tolerated procedure well Additional Wound Wound debrided: left 2nd, 3rd, 4th toe cluster Laterality: Left Type of Debridement: Excisional debridement Anesthesia Used: 4% Lidocaine Solution Depth: Down to and including healthy tissue and in the subcutaneous layer Percentage of wound debrided: 100 Tissue Removed: Yellow slough, devitalized tissue Severity: Fat Layer Exposed Amount of bleeding with debridement: Mild Bleeding Controlled with: Compression and gauze Patient tolerated procedure: Patient tolerated procedure well Assessment/Plan Assessment/Plan (1) Ulcer of left lower extremity with fat layer exposed: CODE(S): L97.922 - Non-pressure chronic ulcer of unspecified part of left lower leg with fat layer exposed (2) Ulcer of right lower extremity with fat layer exposed: CODE(S): L97.912 - Non-pressure chronic ulcer of unspecified part of right lower leg with fat layer exposed (3) HERNÁN (obstructive sleep apnea): CODE(S): G47.33 - Obstructive sleep apnea (adult) (pediatric) (4) Obesity: CODE(S): E66.9 - Obesity, unspecified QUALIFIERS: Obesity type: unspecified obesity type Obesity classification: adult class 2 (BMI 35 - 39.9) Serious obesity comorbidity presence: with serious comorbidity Body mass index: BMI 37.0-37.9 Qualified Code(s): E66.01 - Morbid (severe) obesity due to excess calories; Z68.37 - Body mass index [BMI] 37.0-37.9, adult (5) Morbid obesity: CODE(S): E66.01 - Morbid (severe) obesity due to excess calories (6) Chronic acquired lymphedema: CODE(S): I89.0 - Lymphedema, not elsewhere classified (7) Debility: CODE(S): R53.81 - Other malaise (8) Chronic diastolic (congestive) heart failure: CODE(S): I50.32 - Chronic diastolic (congestive) heart failure (9) Venous stasis dermatitis: CODE(S): I87.2 - Venous insufficiency (chronic) (peripheral) QUALIFIERS: Laterality: bilateral Qualified Code(s): I87.2 - Venous insufficiency (chronic) (peripheral) (10) Stage 3 severe COPD by GOLD classification: CODE(S): J44.9 - Chronic obstructive pulmonary disease, unspecified (11) Lymphedema of both lower extremities: CODE(S): I89.0 - Lymphedema, not elsewhere classified (12) Ulcer of left second toe: CODE(S): L97.529 - Non-pressure chronic ulcer of other part of left foot with unspecified severity QUALIFIERS: Non-pressure ulcer stage: with fat layer exposed Qualified Code(s): L97.522 - Non-pressure chronic ulcer of other part of left foot with fat layer exposed (13) Skin ulcer of third toe of left foot: CODE(S): L97.529 - Non-pressure chronic ulcer of other part of left foot with unspecified severity QUALIFIERS: Non-pressure ulcer stage: with fat layer exposed Qualified Code(s): L97.522 - Non-pressure chronic ulcer of other part of left foot with fat layer exposed (14) Chronic kidney disease with end stage 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: CODE(S): N18.6 - End stage renal disease; Z99.2 - Dependence on renal dialysis (15) Type 2 diabetes mellitus: CODE(S): E11.9 - Type 2 diabetes mellitus without complications QUALIFIERS: Diabetes mellitus complication status: with kidney complications Diabetes mellitus complication detail: with chronic kidney disease 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 Russell's legs have lymphedema and chronic stasis dermatitis. The ulcers of his left plantar foot remain healed. His other ulcers of his left toes are healing. Will continue to dress his left toe ulcers with Promogran covered with adaptic M,W,F for moderate drainage. His left lateral foot and left luz ulcer are healed. Right anterior LE ulcer is healed. Right lateral LE will be dressed with Promogran and adaptic. Will have him use uric acid lotion to great toes to help with his callouses. Will dress right great toe ulcer with Promogran and adaptic as well. His recent labs have been reviewed. Encouraged adequate protein intake. Venous studies show resolution of his DVT. Arterial studies show no significant disease. He was advised to use zinc oxide or triamcinolone cream to his legs once daily to help with his dermatitis. Will plan on returning to maintenance control of his edema with PHUC wraps. He was advised to use his compression pumps twice daily and be vigilant with elevating his legs to avoid worsening of his edema which causes the cellulitis and ulcers. Call with worsening pain, drainage or odor. F/U in 2 weeks.
[2021-07-27 10:16] VITALS: BP 98/46; PULSE 102; RESP 20; TEMP 36.6; BMI 37.3
--- NOTE | 2021-07-27 13:47 | PCM.WC.PN ---
History of Present Illness Date of Service: 07/27/21 Chief Complaint: left lower extremity ulcer, cellulitis and edema b/l LE History of Wound: Mr. Russell is a 70 yo gentelman well-known to the wound center who presents due to new (recurrent) left lower extremity ulcer. Said to have started about a week ago. He initially noted increased fluid drainage and increased swelling and then erythema. His HH nurse was concerned regarding the appearance of the left lateral leg and it began draining more and his dialysis nurses were also concerned. He also has petechial appearing spots on his toes, and feet b/l but none of his upper extremities or more proximally. Denies chills, fever or otherwise feeling of unwell. He is on chronic dialysis and uses compression pumps to manage his edema. He recently underwent surgery for fistula placement for dialysis. He reports that his edema has been better than it has been in the past but has had scaling and drainage to his skin which had resolved when he was using UNNA boots when he was here last. He applies Eucerin, zinc oxide to his legs but this has not helped the scaling recently of his left leg. His left leg remains more swollen than his right and has significant keratosis. Subjective Subjective His left lateral LE ulcer remains healed. The left lateral foot remains healed. There are several ulcers of his left dorsal 2,3,4th toes which are still present but are improved, nearly healed this week. He tolerated treatment with Laura. The ulcer of his left huber remains healed. He has had a new ulcer develop on his left medial huber. He underwent arterial testing November 2020 and it showed mild PAD at the level of his ankles. The ulcers of his right leg are not improving, his ulcer of his right great toe is improved. It is a fissure from a callous. He has been applying the urea that he was supposed to be applying from Dr. Khan. His edema is worse today compared to previous. He hasn't been faithful with Circaids or compression pumps. He denies fever or chills, increased erythema or drainage. Objective Data Objective Data Vital Signs: Vital Signs Temp Pulse Resp BP 97.8 F 102 H 20 H 98/46 L 07/27/21 10:16 07/27/21 10:16 07/27/21 10:16 07/27/21 10:16 Weight: 117.934 kg Body Mass Index (BMI) 37.3 Physical Exam Const alert, oriented x3 and no apparent distress General Appearance: cooperative, comfortable and well kempt HEENT normocephalic and head/scalp atraumatic Resp normal respiratory effort Effort and Inspection: able to speak in complete sentences Cardio regular rate GI Inspection: central obesity Extremity General Extremity: edema bilateral lower extremity Details: moderate Skin General Skin Exam: crusts, lichenification, venous stasis and dermatitis Wounds: wounds noted Wound Narrative: as noted in clinical panel Psych mental status grossly normal, thought process normal and cooperative Debridement Note Debridement Note Wound debrided: left uhber Laterality: Left Type of Debridement: Excisional debridement Anesthesia Used: 5% Lidocaine Gel Depth: Down to and including healthy tissue and in the subcutaneous layer Percentage of wound debrided: 100 Instrument Used: 3mm curette Tissue Removed: Yellow slough, devitalized tissue Severity: Fat Layer Exposed Amount of bleeding with debridement: Mild Bleeding Controlled with: Compression and gauze Patient tolerated procedure: Patient tolerated procedure well Post-Debridement Measurements and Additional Note: Post-Debridement Measurements/Treatment - Nurse 1 - General Ulcer Assessment Start: 07/13/21 09:46 Freq: Status: Active Protocol: MAXX.TRACY Activity Type Activity Date Activity User E-Sign Co-Sign Detail Recorded Client Recorded Date Recorded By Document 07/13/21 09:50 DL [id number] 07/13/21 09:59 DL Document 07/27/21 10:16 DL [id number] 07/27/21 10:28 DL 07/13/21 07/27/21 09:50 10:16 - Today's Visit Information Type of service Follow-up Visit Follow-up Visit (Physician/[employer] SALES REPRESENTATIVE (Physician/E[employer] SALES REPRESENTATIVE ) ) Arrival Mode Ambulatory, Ambulatory, Walker Walker Transfer Assistance None None Patient Identification Verified (Name & Yes Yes ) Patient Requires Transmission-Based No No Precautions Height and Weight Body Mass Index (BMI) 37.3 37.3 BMI Classification Obese Obese Vital Signs Temperature (97.8 F-99.1 F) 96.8 F L 97.8 F Temperature Source Temporal Temporal Pulse Rate (60-100) 99 102 H Pulse Location Monitor Monitor Respiratory Rate (12-18) 20 H 20 H Respiratory rate source Observation Observation Blood Pressure (90/60-120/80) 84/40 L 98/46 L Blood Pressure Mean (mm Hg) 54 63 Source Monitor Monitor History Since Last Visit- (Skip if this is Patient's initial visit) Have you changed medications since your No No last visit? Any new allergies or adverse reactions No No Had a fall/change in ADL's that may No No increase risk of falls Signs or symptoms of abuse and/or No No neglect since last visit Have you been in the hospital since your No No last visit? Has dressing in place as prescribed Yes Yes Has compression in place as prescribed Yes Yes Has offloadiing in place as prescribed Yes Yes Experienced any changes in pain level or No No management Left Footwear Regular Shoe Right Footwear Regular Shoe Pain Scale: 0-10 Numeric Is Patient Pain Free? Yes Yes WC - Nurse 1 - General Ulcer Measurement Start: 07/13/21 09:46 Freq: Status: Active Protocol: Activity Type Activity Date Activity User E-Sign Co-Sign Detail Recorded Client Recorded Date Recorded By Document 07/13/21 09:50 DL [id number] 07/13/21 09:59 DL Document 07/27/21 10:16 DL [id number] 07/27/21 10:28 DL 07/13/21 07/27/21 09:50 10:16 Wound Center Nurse 1 #28 L Huber -Current Size (cm) - Length 0.6 -Current Size (cm) - Width 0.6 -Current Size (cm) - Depth 0.2 -Total Square Cm 0.36 -Photo Taken Yes -Exudate Amt Medium -Exudate Type Serosanguineous -Wound Margin Indistinct, Non -Visible -Granulation Amt Large (67-100%) -Granulation Quality Pale,[place] -Necrosis Amt Small (1-33%) -Necrotic Tissue Type Adherent Slough -Structure Exposed N/A -Texture (Jaylyn-wound Skin Appearance) Localized Edema -Moisture (Jaylyn-wound Skin Appearance) Weeping -Color (Jaylyn-wound Skin Appearance) Hemosiderin Staining -Temperature (Jaylyn-wound Skin No Abnormality Appearance) (Pt Warm) -Tenderness on Palpation (Jaylyn-wound No Skin Appearance) -Ulcer Cleansing Rinsed/ Irrigated with Saline -Foul Odor after Cleansing No -Anesthetic Used 4% Lidocaine Solution #34 R GREAT TOE PLANTAR -Current Size (cm) - Length 0.4 0.3 -Current Size (cm) - Width 2.4 1.3 -Current Size (cm) - Depth 0.5 0.2 -Total Square Cm 0.96 0.39 -Photo Taken Yes No -Exudate Amt Small None Present -Exudate Type Serosanguineous -Wound Margin Thickened Thickened -Granulation Amt Large (67-100%) Large (67-100%) -Granulation Quality Red Pale -Necrosis Amt Small (1-33%) Small (1-33%) -Necrotic Tissue Type Adherent Slough Adherent Slough -Structure Exposed N/A N/A -Texture (Jaylyn-wound Skin Appearance) Callus Callus -Moisture (Jaylyn-wound Skin Appearance) Dry/Scaly Dry/Scaly -Color (Jaylyn-wound Skin Appearance) Hemosiderin Hemosiderin Staining Staining -Temperature (Jaylyn-wound Skin No Abnormality No Abnormality Appearance) (Pt Warm) (Pt Warm) -Tenderness on Palpation (Jaylyn-wound No No Skin Appearance) -Ulcer Cleansing Rinsed/ Rinsed/ Irrigated with Irrigated with Saline Saline -Foul Odor after Cleansing No No -Anesthetic Used 5% Lidocaine 4% Lidocaine Gel Solution #33 right lateral LE -Current Size (cm) - Length 2.5 2.6 -Current Size (cm) - Width 0.8 0.8 -Current Size (cm) - Depth 0.4 0.3 -Total Square Cm 2.00 2.08 -Photo Taken No No -Exudate Amt Medium Medium -Exudate Type Serosanguineous -Wound Margin Distinct, Distinct, Outline Outline Attached Attached -Granulation Amt Large (67-100%) Medium (34-66%) -Granulation Quality [place],Red Red -Necrosis Amt Small (1-33%) Medium (34-66%) -Necrotic Tissue Type Adherent Slough Adherent Slough -Structure Exposed N/A N/A -Texture (Jaylyn-wound Skin Appearance) Scarring Scarring -Moisture (Jaylyn-wound Skin Appearance) Dry/Scaly Dry/Scaly -Color (Jaylyn-wound Skin Appearance) Hemosiderin Hemosiderin Staining Staining -Temperature (Jaylyn-wound Skin No Abnormality No Abnormality Appearance) (Pt Warm) (Pt Warm) -Tenderness on Palpation (Jaylyn-wound No No Skin Appearance) -Ulcer Cleansing Rinsed/ Rinsed/ Irrigated with Irrigated with Saline Saline -Foul Odor after Cleansing No No -Anesthetic Used 4% Lidocaine 4% Lidocaine Solution Solution #28 left 2nd, 3rd, 4th toe cluster -Current Size (cm) - Length 0.1 0.4 -Current Size (cm) - Width 0.1 0.2 -Current Size (cm) - Depth 0.1 0.1 -Total Square Cm 0.01 0.08 -Photo Taken No No -Exudate Amt None Present None Present -Wound Margin Thickened Thickened -Granulation Amt Large (67-100%) None Present (0 %) -Granulation Quality Pale,[place] -Necrosis Amt Small (1-33%) Small (1-33%) -Necrotic Tissue Type Adherent Slough Eschar -Structure Exposed N/A N/A -Texture (Jaylyn-wound Skin Appearance) Scarring Scarring -Moisture (Jaylyn-wound Skin Appearance) Dry/Scaly Dry/Scaly -Color (Jaylyn-wound Skin Appearance) Hemosiderin Hemosiderin Staining Staining -Temperature (Jaylyn-wound Skin No Abnormality No Abnormality Appearance) (Pt Warm) (Pt Warm) -Tenderness on Palpation (Jaylyn-wound No No Skin Appearance) -Ulcer Cleansing Rinsed/ Rinsed/ Irrigated with Irrigated with Saline Saline -Foul Odor after Cleansing No No -Anesthetic Used 4% Lidocaine 4% Lidocaine Solution Solution Right Calf (cm) 41 41 Right Ankle (cm) 27.7 27.6 Left Calf (cm) 43.5 45 Left Ankle (cm) 28.5 30 WC - Nurse 2 - General Ulcer CM Notes Start: 07/13/21 09:46 Freq: Status: Active Protocol: Activity Type Activity Date Activity User E-Sign Co-Sign Detail Recorded Client Recorded Date Recorded By Document 07/13/21 10:09 MW [id number] 07/13/21 10:29 MW Document 07/27/21 10:59 MW [id number] 07/27/21 11:18 MW 07/13/21 07/27/21 10:09 10:59 Wound Center Nurse 2 #28 L Huber -Time 11:02 -Correct Patient Yes -Correct Side, Site, Position Yes -Correct Procedure Yes -Procedure Performed Yes -Type of Procedure Debridement -Clinical Debridement Subcutaneous -Tissue Removed Subcutaneous -Post Debridement (cm) - Length 0.8 -Post Debridement (cm) - Width 0.8 -Post Debridement (cm) - Depth 0.2 -Total Square (Post) (cm) 0.64 -Area of Debridement (cm) - Length 0.8 -Area of Debridement (cm) - Width 0.8 -Total Square (Area) (cm) 0.64 -Tunneling No -Undermining/Tunneling No -Circular Undermining No -Wound/Ulcer Outcome Not Healed -Ulcer Cleansing Rinsed/ Irrigated with Saline -Foul Odor after Cleansing No -Bioengineered Tissue No -Bleeding Controlled with Pressure -Treatment Response Procedure Tolerated Well -Offloading No -Assistive Device(s) Walker -Debridement - Subq, 1st 20sq cm Yes #34 R GREAT TOE PLANTAR -Time 10:09 11:02 -Correct Patient Yes Yes -Correct Side, Site, Position Yes Yes -Correct Procedure Yes Yes -Procedure Performed Yes Yes -Type of Procedure Debridement Debridement -Clinical Debridement Subcutaneous Subcutaneous -Tissue Removed Subcutaneous Subcutaneous -Post Debridement (cm) - Length 0.3 1.0 -Post Debridement (cm) - Width 2.3 0.2 -Post Debridement (cm) - Depth 0.2 0.2 -Total Square (Post) (cm) 0.69 0.20 -Area of Debridement (cm) - Length 0.3 1.0 -Area of Debridement (cm) - Width 2.3 0.2 -Total Square (Area) (cm) 0.69 0.20 -Tunneling No No -Undermining/Tunneling No No -Circular Undermining No No -Wound/Ulcer Outcome Not Healed Not Healed -Ulcer Cleansing Rinsed/ Rinsed/ Irrigated with Irrigated with Saline Saline -Foul Odor after Cleansing No No -Bioengineered Tissue No No -Bleeding Controlled with Pressure Pressure -Treatment Response Procedure Procedure Tolerated Well Tolerated Well -Offloading No No -Debridement - Subq, 1st 20sq cm Yes No #33 right lateral LE -Time 10:10 11:03 -Correct Patient Yes Yes -Correct Side, Site, Position Yes Yes -Correct Procedure Yes Yes -Procedure Performed Yes Yes -Type of Procedure Debridement Debridement -Clinical Debridement Subcutaneous Subcutaneous -Tissue Removed Subcutaneous Subcutaneous -Post Debridement (cm) - Length 2.5 2.8 -Post Debridement (cm) - Width 1.0 1.4 -Post Debridement (cm) - Depth 0.2 0.1 -Total Square (Post) (cm) 2.50 3.92 -Area of Debridement (cm) - Length 2.5 2.8 -Area of Debridement (cm) - Width 1.0 1.4 -Total Square (Area) (cm) 2.50 3.92 -Tunneling No No -Undermining/Tunneling No No -Circular Undermining No No -Wound/Ulcer Outcome Not Healed Not Healed -Ulcer Cleansing Rinsed/ Rinsed/ Irrigated with Irrigated with Saline Saline -Foul Odor after Cleansing No No -Bioengineered Tissue No No -Bleeding Controlled with Pressure Pressure -Treatment Response Procedure Procedure Tolerated Well Tolerated Well -Offloading No No -Debridement - Subq, 1st 20sq cm No No #28 left 2nd, 3rd, 4th toe cluster -Time 10:11 11:03 -Correct Patient Yes Yes -Correct Side, Site, Position Yes Yes -Correct Procedure Yes Yes -Procedure Performed Yes Yes -Type of Procedure Debridement Debridement -Clinical Debridement Subcutaneous Subcutaneous -Tissue Removed Subcutaneous Subcutaneous -Post Debridement (cm) - Length 0.2 0.7 -Post Debridement (cm) - Width 0.2 0.6 -Post Debridement (cm) - Depth 0.1 0.2 -Total Square (Post) (cm) 0.04 0.42 -Area of Debridement (cm) - Length 0.2 0.7 -Area of Debridement (cm) - Width 0.2 0.6 -Total Square (Area) (cm) 0.04 0.42 -Tunneling No No -Undermining/Tunneling No No -Circular Undermining No No -Wound/Ulcer Outcome Not Healed Not Healed -Ulcer Cleansing Rinsed/ Rinsed/ Irrigated with Irrigated with Saline Saline -Foul Odor after Cleansing No No -Bioengineered Tissue No No -Bleeding Controlled with Pressure Pressure -Treatment Response Procedure Procedure Tolerated Well Tolerated Well -Offloading No No -Debridement - Subq, 1st 20sq cm No No Pain Scale: 0-10 Numeric Is Patient Pain Free? Yes Yes WC - Nurse 3 - General Ulcer D/C NN Start: 07/13/21 09:46 Freq: Status: Active Protocol: Activity Type Activity Date Activity User E-Sign Co-Sign Detail Recorded Client Recorded Date Recorded By Document 07/13/21 10:52 DL [id number] 07/13/21 10:54 DL Document 07/27/21 11:49 RB [id number] 07/27/21 11:53 RB 07/13/21 07/27/21 10:52 11:49 Wound Care Nurse 3 #28 L Huber -Ulcer Cleansing Wound Cleanser -Primary Dressing Applied NonAdherent Contact Layer -Other Dressing aquacel extra -Primary Dressing Covered/Secured with Dry Gauze,Dry Gauze & Roll Gauze,Secured with Tape #34 R GREAT TOE PLANTAR -Ulcer Cleansing Rinsed/ Irrigated with Saline -Foul Odor after Cleansing No -Primary Dressing Applied Promogran Laura Matter -Other Dressing offloading felt pad bilat hallux and uric acid applieduric acid -Primary Dressing Covered/Secured with Dry Gauze, Dry Gauze, Secured with Secured with Tape Tape -Other Covering apperture pad -Promogran Laura Matter 1 #33 right lateral LE -Ulcer Cleansing Rinsed/ Irrigated with Saline -Primary Dressing Applied Aquacel Extra, NonAdherent Contact Layer -Other Dressing laura abd ,kerlix kristin liner , phuc bilat -Primary Dressing Covered/Secured with Dry Gauze & Dry Gauze,Dry Roll Gauze, Gauze & Roll Secured with Gauze,Secured Tape with Tape -Aquacel Extra 1 #28 left 2nd, 3rd, 4th toe cluster -Ulcer Cleansing Rinsed/ Irrigated with Saline -Other Dressing appurture pad aquacel extra -Primary Dressing Covered/Secured with Dry Gauze,Dry Gauze & Roll Gauze,Secured with Tape Right -Other phuc Left -Other phuc Treatment Response Procedure Procedure Tolerated Well Tolerated Well Pain Scale: 0-10 Numeric Is Patient Pain Free? Yes Yes WC - Visit Discharge Discharge Condition Stable Stable Ambulatory Status Ambulatory, Ambulatory Walker Transportation Private Auto Medication Reconcilliation completed & No provided to patient/care provider Clinical Summary of Care Provided Yes Notes: triamcinole cream appplied [facility] lower [facility] Facility Type Home Health Orders Sent Yes Additional Wound Wound debrided: right great toe plantar Laterality: Right Wound Grade/Stage: Espinoza grade 1 Type of Debridement: Excisional debridement Anesthesia Used: 4% Lidocaine Solution Depth: Down to and including healthy tissue and in the subcutaneous layer Percentage of wound debrided: 100 Instrument Used: 3mm curette Tissue Removed: Yellow slough, devitalized tissue Severity: Fat Layer Exposed Amount of bleeding with debridement: Mild Bleeding Controlled with: Compression and gauze Patient tolerated procedure: Patient tolerated procedure well Additional Wound Wound debrided: Right lateral LE Laterality: Right Type of Debridement: Excisional debridement Anesthesia Used: 5% Lidocaine Gel Depth: Down to and including healthy tissue and in the subcutaneous layer Percentage of wound debrided: 100 Instrument Used: 3mm curette Tissue Removed: Yellow slough, devitalized tissue Severity: Fat Layer Exposed Amount of bleeding with debridement: Mild Bleeding Controlled with: Compression and gauze Patient tolerated procedure: Patient tolerated procedure well Additional Wound Wound debrided: Left 2nd, 3rd, 4th toe cluster Laterality: Left Wound Grade/Stage: Grade 1 Type of Debridement: Excisional debridement Anesthesia Used: 5% Lidocaine Gel Depth: Down to and including healthy tissue and in the subcutaneous layer Percentage of wound debrided: 100 Instrument Used: 3mm curette Tissue Removed: Yellow slough, devitalized tissue Severity: Fat Layer Exposed Amount of bleeding with debridement: Mild Bleeding Controlled with: Compression and gauze Patient tolerated procedure: Patient tolerated procedure well Assessment/Plan Assessment/Plan (1) Ulcer of left lower extremity with fat layer exposed: CODE(S): L97.922 - Non-pressure chronic ulcer of unspecified part of left lower leg with fat layer exposed (2) Ulcer of right lower extremity with fat layer exposed: CODE(S): L97.912 - Non-pressure chronic ulcer of unspecified part of right lower leg with fat layer exposed (3) HERNÁN (obstructive sleep apnea): CODE(S): G47.33 - Obstructive sleep apnea (adult) (pediatric) (4) Obesity: CODE(S): E66.9 - Obesity, unspecified QUALIFIERS: Obesity type: unspecified obesity type Obesity classification: adult class 2 (BMI 35 - 39.9) Serious obesity comorbidity presence: with serious comorbidity Body mass index: BMI 37.0-37.9 Qualified Code(s): E66.01 - Morbid (severe) obesity due to excess calories; Z68.37 - Body mass index [BMI] 37.0-37.9, adult (5) Morbid obesity: CODE(S): E66.01 - Morbid (severe) obesity due to excess calories (6) Chronic acquired lymphedema: CODE(S): I89.0 - Lymphedema, not elsewhere classified (7) Debility: CODE(S): R53.81 - Other malaise (8) Chronic diastolic (congestive) heart failure: CODE(S): I50.32 - Chronic diastolic (congestive) heart failure (9) Venous stasis dermatitis: CODE(S): I87.2 - Venous insufficiency (chronic) (peripheral) QUALIFIERS: Laterality: bilateral Qualified Code(s): I87.2 - Venous insufficiency (chronic) (peripheral) (10) Stage 3 severe COPD by GOLD classification: CODE(S): J44.9 - Chronic obstructive pulmonary disease, unspecified (11) Lymphedema of both lower extremities: CODE(S): I89.0 - Lymphedema, not elsewhere classified (12) Ulcer of left second toe: CODE(S): L97.529 - Non-pressure chronic ulcer of other part of left foot with unspecified severity QUALIFIERS: Non-pressure ulcer stage: with fat layer exposed Qualified Code(s): L97.522 - Non-pressure chronic ulcer of other part of left foot with fat layer exposed (13) Skin ulcer of third toe of left foot: CODE(S): L97.529 - Non-pressure chronic ulcer of other part of left foot with unspecified severity QUALIFIERS: Non-pressure ulcer stage: with fat layer exposed Qualified Code(s): L97.522 - Non-pressure chronic ulcer of other part of left foot with fat layer exposed (14) Chronic kidney disease with end stage 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: CODE(S): N18.6 - End stage renal disease; Z99.2 - Dependence on renal dialysis (15) Type 2 diabetes mellitus: CODE(S): E11.9 - Type 2 diabetes mellitus without complications QUALIFIERS: Diabetes mellitus complication status: with kidney complications Diabetes mellitus complication detail: with chronic kidney disease Diabetes mellitus usp insulin use: with usp use Chronic kidney disease stage: on chronic dialysis Qualified Code(s): E11.22 - Type 2 diabetes mellitus with diabetic chronic kidney disease; N18.6 - End stage renal disease; Z79.4 - lobsterman (current) use of insulin; Z99.2 - Dependence on renal dialysis (16) Hyperlipidemia: CODE(S): E78.5 - Hyperlipidemia, unspecified QUALIFIERS: Hyperlipidemia type: unspecified Qualified Code(s): E78.5 - Hyperlipidemia, unspecified PLAN: Mr. Russell's legs have lymphedema and chronic stasis dermatitis. The ulcers of his left plantar foot remain healed. His other ulcers of his left toes are healing. Will change dressings to Aquacel Extra with adaptic M,W,F for moderate drainage. His left lateral foot and left huber ulcer are remaining healed. Right anterior LE ulcer is healed. Right lateral LE will be dressed with Aquacel Extra and adaptic. Will have him use uric acid lotion to great toes to help with his callouses. Will dress right great toe ulcer with Aquacel Extra and adaptic as well. Due to the lack of progress in healing the right lateral LE ulcers, I feel that Brenton would benefit from application of a skin substitute product such as Epifix to heal his ulcer and it is medically necessary to use this type of product to heal his ulcer. His recent labs have been reviewed. Encouraged adequate protein intake. Venous studies show resolution of his DVT. Arterial studies show no significant disease. He was advised to use zinc oxide or triamcinolone cream to his legs once daily to help with his dermatitis. Will plan on returning to maintenance control of his edema with PHUC wraps. He was advised to use his compression pumps twice daily and be vigilant with elevating his legs to avoid worsening of his edema which causes the cellulitis and ulcers. Call with worsening pain, drainage or odor. F/U in 2 weeks.
== END 2021-08-09 23:59 | disposition home or self-care (01) ==
LOC: WC 10:00
PROVIDERS: PCP Family Medicine; Referring Provider Family Medicine; Visit Provider Family Medicine
DX: E11.621 Type 2 diabetes mellitus with foot ulcer (principal); E11.51 Type 2 diabetes mellitus with diabetic peripheral angiopathy without gangrene; L97.522 Non-pressure chronic ulcer of other part of left foot with fat layer exposed; L97.512 Non-pressure chronic ulcer of other part of right foot with fat layer exposed; Z99.2 Dependence on renal dialysis; J44.9 Chronic obstructive pulmonary disease, unspecified; I50.32 Chronic diastolic (congestive) heart failure; E11.59 Type 2 diabetes mellitus with other circulatory complications; E11.22 Type 2 diabetes mellitus with diabetic chronic kidney disease; N18.6 End stage renal disease; E66.01 Morbid (severe) obesity due to excess calories; Z79.4 Long term (current) use of insulin; E78.5 Hyperlipidemia, unspecified; I89.0 Lymphedema, not elsewhere classified; G47.33 Obstructive sleep apnea (adult) (pediatric); I87.2 Venous insufficiency (chronic) (peripheral); Z68.37 Body mass index [BMI] 37.0-37.9, adult
CPT/HCPCS: 11042